=== PATIENT | female | born 1960 | race Caucasian/White ===

== ENCOUNTER 2019-04-09 10:44 | Day surgery (SDC) | payer MEDICARE, SELFPAY ==
[2019-04-09] VITALS (7 sets, daily range): BP systolic 101–128; BP diastolic 60–80; PULSE 57–83; RESP 16; TEMP 36.2–36.5; O2SAT 97–100; BMI 26.4
[2019-04-09] MEDS: Lactated Ringers 1,000 ML 100 ML IV (11:32)
--- NOTE | 2019-04-09 12:39 | PCM.HP.BLA ---
History and Physical Date of Admission: 04/09/19 Kenyatta Carrillo 1960 ? ? REFERRING PHYSICIAN: Gonsalo Shannon MD ? CHIEF COMPLAINT: Consult ? HPI: The patient is a 58 year old female presents with history of colon polyps. Patient began interview by stating that she really doesn't want to undergo colonoscopy but they told her that she should have a colonoscopy, and she was adamant in stating that she didn't want a colonoscopy. I explained that given her history of polyps she should have continued surveillance. She had a previous colonoscopy 07/24/14 with findings of descedning colon tubular adenoma - 1 cm Father had colon cancer in his 60s. Denies blood in stools. Denies abdominal pain. Denies changes in bowel habits. She states that in her last colonoscopy she wasn't clean enough. Then I suggested a two day colon cleansing preparation, she didn't want to do that. She stated that she is not having consstipation problems now as she was before. She states that now has a bowel movement every day. ? ? PAST MEDICAL HISTORY Diagnosis Date ? Bipolar 1 disorder, depressed (HCC) 80s ? Colon polyps 07/31/2001 ? TVA ? Eating disorder ? ? Endometriosis, site unspecified ? ? Endometriosis ? High blood sugar ? ? Knee pain ? ? Moderate dysplasia of cervix 's ? Osteopenia 2011 ? PAST SURGICAL HISTORY Procedure Laterality Date ? CERVIX UTERI CAUTER CRYOCAUTER ? 1979's ? COLONOSCOP W/ OR W/O BRSH SPEC ? 07/22/14 ? Colonoscopy ? COLONOSCOPY ? 08/05/02 ? no polyp ? COLONOSCOPY & POLYPECTOMY ? 07/31/01 ? TVA removed ? EGD W/O OR W/BRUSH/WASH ? 07/22/14 ? EGD ? HYSTERECTOMY HX ? 2001 ? LAVH/BSO ? KNEE LEFT OP SURGERY ? ? ? 3 surgeries ? KNEE RIGHT OP SURGERY ? ? ? 5 knee surgeies - last being TKA ? L'SCOPE DX W/WO BRUSHINGS/WASHINGS ? ? ? Laparoscopy 8-10 of them for endometriosis ? PAST SURGICAL HISTORY OF ? 2005 ? left wrist surgery ? PAST SURGICAL HISTORY OF Right 2016 ? ORIF right hip ? SHOULDER ARTHROSCOPY/SURGERY ? Current Outpatient Medications Medication Sig ? pantoprazole DR (PROTONIX) 40 mg tablet Take 1 tablet by mouth twice daily. ? levothyroxine (SYNTHROID) 50 mcg tablet TAKE 1 TABLET BY MOUTH ONCE DAILY. TAKE ON EMPTY STOMACH. FOR THYROID ? cholecalciferol, Vitamin D3, (VITAMIN D3) 50,000 unit cap capsule Take 1 capsule by mouth once each week. ? busPIRone (BUSPAR) 5 mg tablet Take 1 tablet by mouth twice daily. (Patient taking differently: Take 5 mg by mouth once daily. ) ? divalproex DR (DEPAKOTE) 500 mg EC tablet Take 250 mg by mouth once daily. 250 mg at night and 500 mg 2x daily ? ? topiramate 100 mg tablet Take 1 tablet by mouth twice daily. ? doxycycline monohydrate 100 mg tablet Take 1 tablet by mouth twice daily. (Patient not taking: Reported on 03/31/2019 ) ? benzonatate (TESSALON PERLES) 100 mg capsule Take 1 capsule by mouth three times daily as needed. (Patient not taking: Reported on 03/31/2019 ) ? cholecalciferol (VITAMIN D3) 2,000 unit tablet Take 1 tablet by mouth once daily. (Patient not taking: Reported on 03/31/2019 ) ? polyethylene glycol 3350 (MIRALAX, GLYCOLAX) 17 gram packet Take 1 Packet by mouth once daily. (Patient not taking: Reported on 03/31/2019 ) ? ketoconazole (NIZORAL) 2 % shampoo Apply 1 application to affected area once daily as needed. (Patient not taking: Reported on 03/31/2019 ) ? fluticasone (FLONASE) 50 mcg/actuation nasal spray Use 2 Sprays in each nostril once daily. (Patient not taking: Reported on 03/31/2019 ) ? ? ALLERGIES: Patient has no known allergies. ? PERSONAL HISTORY: Social History ? Tobacco Use ? Smoking status: Former Smoker ? Smokeless tobacco: Never Used ? Tobacco comment: quit in 2018 Substance Use Topics ? Alcohol use: No ? ? Comment: Patient indicated that she is binge drinker Sober since ? Drug use: No ? FAMILY HISTORY Problem Relation Age of Onset ? Diabetes Mother ? ? Emphysema Mother ? ? COPD Mother ? ? Cancer Mother ? ? throat and met to lung and brain ? Alcohol/Drug Mother ? ? Stroke Mother ? ? Heart disease Mother ? ? other (lung cancer) Mother ? ? other (throat cancer) Mother ? ? Cancer Father ? ? lung; colon; spinal cancer ? Colon Cancer Father ? ? Alcohol/Drug Father ? ? other (lung cancer) Father ? ? Heart disease Sister ? ? Allergies Maternal Grandmother ? ? Emphysema Maternal Grandfather ? ? Arthritis Paternal Grandmother ? ? Breast Cancer Paternal Grandmother ? ? None Sister ? ? None Sister ? ? ? REVIEW OF SYSTEMS: General: The patient denies fatigue, denies weight loss, notes weight gain, denies feeling hot, and denies feelings of cold. Eyes: The patient denies glaucoma, denies eye injury/surgery, wears glasses or contacts. Ear/Nose/Throat: The patient notes allergies, denies hayfever, denies ear infections, and denies bloody noses. Cardiovascular: The patient denies chest pain, denies heart disease, denies high blood pressure,denies cardiac stent, denies prior heart attack, denies irregular heart beat, denies high cholesterol, denies poor circulation, denies heart failure, other cardiac issues, denies claudication, denies cold feet, denies peripheral arterial stent. Respiratory: The patient denies tuberculosis, denies pneumonia, denies frequent cough, denies pulmonary embolism, denies shortness of breath, and denies coughing up blood. Gastrointestinal: The patient denies difficulty swallowing, notes acid reflux, denies ulcers, denies vomiting, denies jaundice/hepatitis, denies gallbladder problems, denies black or tarry stools, denies hemorrhoids, denies bleeding from rectum, denies diverticulitis, denies constipation, denies diarrhea, denies loss of stool control, and denies hernias. Kidney/Bladder: The patient denies kidney stones, denies urine infections, and denies bloody urine. Skin: The patient denies a history of skin cancer, denies bleeding/changing moles, and denies a history of skin rash. Neurologic: The patient denies a history of epilepsy/convulsions, denies headaches, denies head/spinal injuries, and denies stroke/TIA. Psychiatric: The patient NOTES psychiatric medications, denies depression, and denies voices, denies substance abuse. Endocrine: The patient notes thyroid disorders, denies diabetes, and denies hormonal problems. Hematologic: The patient denies a history of bruising, denies bleeding, and denies anemia, denies blood clots. Infections: The patient denies a history of measles and mumps, denies rheumatic fever, and denies sexually transmitted diseases. Musculoskeletal: The patient denies back pain/injury, denies back problems, denies sciatica, denies knee/foot trouble, denies arthritis, or denies gout. ? ? PHYSICAL EXAMINATION: General: The patient is 58 year old female, well nourished, well hydrated in no acute distress. The patient is oriented to time, place, and person. VITALS: Blood pressure 98/70, pulse 120, temperature 36.4 ?C (97.5 ?F), temperature source Temporal Artery, height 182.9 cm (6'), weight 86.6 kg (191 lb), SpO2 100 %. Body mass index is 25.9 kg/m?. Head ? Normocephalic. EOM intact with sclera clear and no icterus noted. Wearing glasses. Mouth with mucus membranes moist. Neck - supple with no jugular venous distention noted. Trachea is midline. Lungs ? clear to auscultation.. Normal breath sounds. No rales/rhonchi/wheezing noted. No labored breathing noted, such as retractions. No cough heard. Heart ? normal S1 and S2 auscultated. No rubs/clicks/murmurs noted. Regular rate. Abdomen ? soft and benign. Normal bowel sounds. Extremities ? no pitting edema noted. Skin ? normal skin integrity. Neurological ? non focal Psych ? normal for patient ? ? IMPRESSION: history of colon polyps. ? PLAN: I have discussed the above with the patient. I have explained the procedure to the patient. I have counseled the patient as to the risks of the procedure, including but not limited to: infection, bleeding, perforation of the GI tract, injury to any intraabdominal organs such as the liver/spleen, inability to complete the procedure, complications of anesthesia, etc. ? the patient understands. she agrees to proceed I have answered all questions to the patient?s satisfaction and the patient has no further questions. ? . Diagnoses: (Z86.010) History of colonic polyps (primary encounter diagnosis) Return to Clinic: The patient is instructed to follow-up with me after the procedure as per needed.
--- NOTE | 2019-04-09 13:23 | OP.COLON_ITS ---
Patient Name: Kenyatta Carrillo Procedure Date: 04/09/2019 12:58 PM Date of : 1960 Age: 58 Procedure: Colonoscopy Indications: High risk colon cancer surveillance: Personal history of colonic polyps Providers: Kristina Wang MD Referring MD: Yeison Mclain MD Medicines: See the Anesthesia note for documentation of the administered medications Patient Profile: Refer to note in patient chart for documentation of history and physical. Last Colonoscopy: 5 years ago. Complications: No immediate complications. Procedure: Pre-Anesthesia Assessment: - see anesthesia note After I obtained informed consent, the scope was passed under direct vision. Throughout the procedure, the patient's blood pressure, pulse, and oxygen saturations were monitored continuously. The Duodenoscope was introduced through the anus and advanced to the cecum, identified by the appendiceal orifice, IC valve and transillumination. The colonoscopy was performed without difficulty. The patient tolerated the procedure well. The quality of the bowel preparation was poor, there was still retained fecal material. Therefore lavage and aspiration was done to clear the fecal material. This took some time. The marroquin were cleared adequately. Scope In: 1:06:06 PM Scope Withdrawal Time 0 hours 8 minutes 24 seconds Scope Out: 1:20:19 PM Total Procedure Duration Time 0 hours 14 minutes 13 seconds Findings: The perianal and digital rectal examinations were normal. Pertinent negatives include normal sphincter tone. Non-bleeding internal hemorrhoids were found. Impression: - Non-bleeding internal hemorrhoids. - No specimens collected. Recommendation: - Repeat colonoscopy in 5 years for surveillance. - Return to primary care physician PRN. - Continue present medications. Procedure Code(s): --- Professional --- G0105, Colorectal cancer screening; colonoscopy on individual at high risk Diagnosis Code(s): --- Professional --- K64.8, Other hemorrhoids Z86.010, Personal history of colonic polyps CPT copyright 2017 [employer]. All rights reserved. The codes documented in this report are preliminary and upon professor of physics review may be revised to meet current compliance requirements. MD Kristina Hallman MD 04/09/2019 1:23:29 PM This report has been signed electronically. Number of Addenda: 0 Note Initiated On: 04/09/2019 12:58 PM
== END 2019-04-09 14:17 | disposition home or self-care (01) ==
LOC: EN 10:55 → AC 10:56
PROVIDERS: Family Provider Family Medicine; Referring Provider Family Medicine; Visit Provider Surgery
PROC: 0DJD8ZZ Inspection of Lower Intestinal Tract, Via Natural or Artificial Opening Endoscopic (ICD-10-PCS; CPT 45378; principal; 2019-04-09 11:55)
DX: Z12.11 Encounter for screening for malignant neoplasm of colon (principal); K64.8 Other hemorrhoids; Z86.010 Personal history of colon polyps; Z80.0 Family history of malignant neoplasm of digestive organs; F31.9 Bipolar disorder, unspecified; K21.9 Gastro-esophageal reflux disease without esophagitis; D64.9 Anemia, unspecified; E06.9 Thyroiditis, unspecified; Z79.899 Other long term (current) drug therapy; Z87.891 Personal history of nicotine dependence
CPT/HCPCS: G0121; J7120

== ENCOUNTER 2019-07-03 19:11 | Emergency (ER) | payer MEDICARE, SELFPAY ==
[2019-04-09 11:21] VITALS: BMI 26.4
[2019-07-03 19:12] VITALS: BP 148/90; PULSE 64; RESP 18; TEMP 36.7; O2SAT 100; BMI 26.8
--- NOTE | 2019-07-03 19:19 | RAD_ITS ---
STUDY: X-RAY - PELVIS REASON FOR EXAM: Female, 58 years old. right upper leg pain x 3 days TECHNIQUE: One view of the pelvis was obtained. COMPARISON: None. FINDINGS: There is a non-specific bowel gas pattern. Normal visualized soft tissue structures. Normal bilateral iliac wings, sacroiliac joints and visualized sacrum. Normal visualized bilateral superior and inferior pubic rami. Normal pubic symphysis. Normal ischial tuberosities. Right hip prosthesis is noted in anatomic alignment and position. Acetabula protrusio deformity is noted. Normal visualized left femoral head. Normal left acetabulum. Normal left hip joint. RAD/Pelvis 1 or 2 Views IMPRESSION: Stable appearance to right hip prosthesis. No evidence for acute hip or pelvic fracture Electronically Signed: Bernardo Braun MD at 19:59 EST , Service support ,
--- NOTE | 2019-07-03 19:33 | ED.DCSUM_ITS ---
History of Present Illness Chief Complaint: Lower Extremity Injury Informant: Patient Onset: Days Context: Gradual Onset Timing: Continuous Current Severity: Moderate Maximum Severity: Moderate Narrative: The patient is a 58-year-old female with medical history significant for prior hip fracture who ended up with a periprosthetic fracture and had to have significant revision of her prior surgery that presents to the emergency department for right thigh pain. Patient states that her surgery was last year. She is been back at work. She states over the past 4 days, she is a more pain in her thigh. She denies any specific injury. She does ambulate with a cane. She is not taken anything for her pain. She denies any swelling. She is had no fever or chills. She is otherwise been in her normal state of health. Prior similar symptoms: No Recent Illness/Hospitalization: No Past Medical History - Allergies and Home Meds Allergies/Adverse Reactions: Allergies No Known Allergies Allergy (Verified 07/03/19 19:13) Primary Care Physician: Gonsalo Shannon [Primary Care Provider] - Prior records reviewed: Yes Past Medical History: - Surgical History: - - Reviewed and confirmed Smoking Status: Never smoker Review of Systems General: Denies: Chills, Fever, Sweats Eyes: Denies: Visual changes - bilaterally, Diplopia ENT: Denies: Rhinorrhea, Sore throat Cardiovascular: Denies: Chest pain, Palpitations Respiratory: Denies: Dyspnea, Cough, Dyspnea on exertion Gastrointestinal: Denies: Abdominal pain, Nausea, Vomiting, Diarrhea, Melena, Hematochezia Genitourinary: Denies: Dysuria, Hematuria, Frequency Musculoskeletal: Reports: Arthralgias. Denies: Back pain, Extremity Pain Skin: Denies: Rash, Wounds Neurological: Denies: Headache, Weakness, Numbness Physical Exam Vital Signs/Narrative: Vital Signs Temp Pulse Resp BP Pulse Ox 07/03/19 19:12 98.0 F 64 18 148/90 H 100 Inital Vital Signs reviewed: Yes General: Well nourished, Well developed, No Acute Distress Head: Normocephalic, Atraumatic Eyes: Perrl, EOMI ENT: Moist mucous membranes, No rhinorrhea Neck: Supple, Nontender Cardiovascular: Regular rate, Regular rhythm, No murmurs Respiratory: No distress, CTA bilaterally, Chest nontender Abdomen: Soft, Nontender, Nondistended, Normal bowel sounds Back: Nontender, Normal Inspection Extremities: Nontender, No edema Skin: Normal color, No rash Neurological: Alert, Oriented x3, Cranial nerves II-XII grossly intact, Normal Strength, Normal Sensation Psychological: Normal affect, Normal Mood Diagnostic/Tx/Re-eval Clinical Impression(s) from Imaging Studies Pelvis X-Ray 07/03/19 19:19 IMPRESSION: Stable appearance to right hip prosthesis. No evidence for acute hip or pelvic fracture Electronically Signed: Bernardo Braun MD at 19:59 EST , Service support , Femur X-Ray 07/03/19 19:35 IMPRESSION: Postsurgical changes. No evidence for acute fracture. No definitive evidence for acute osteomyelitis or other focal bony lesion Electronically Signed: Bernardo Braun MD at 19:57 EST , Service support , - Medical Decision Making The patient has no erythema or edema of the leg. She has normal pulses. She has no pain in the calf or asymmetric swelling. She states the pain is only when she bears weight. Given her significant surgical history, plain films were obtained. This does redemonstrate her old injuries, but her plates are all intact. There is no evidence of fracture. There is no bony reaction consistent with osteomyelitis. At this point, I do feel that this is just an exacerbation of her normal pain likely from overuse. Will give a short course of analgesics and will continue her cane. She will follow-up with orthopedic surgeon if not improving within the next 72 hours. Impression 1. Right thigh contusion ED Disposition - Plan for ED Patient: Instructions: Hip Contusion Prescriptions: Hydrocodone Bitart/Apap 5-325 [[place] 5MG-325MG] 1 tab PO Q6H PRN PRN 3 Days #10 tab PRN Reason: Pain Prescription Printed Referrals: Gonsalo Shannon [Primary Care Provider] -
--- NOTE | 2019-07-03 19:35 | RAD_ITS ---
STUDY: X-RAY - RIGHT FEMUR REASON FOR STUDY: Female, 58 years old. right upper leg pain x 3 days TECHNIQUE: 4 view(s) of the femur. COMPARISON: None. FINDINGS: Bony structures are osteopenic. Right hip prosthesis is noted in anatomic alignment and position. There are postsurgical changes status post open reduction internal fixation of distal femoral shaft fracture. Knee prosthesis is noted in anatomic alignment. RAD/Femur Min 2 Views IMPRESSION: Postsurgical changes. No evidence for acute fracture. No definitive evidence for acute osteomyelitis or other focal bony lesion Electronically Signed: Bernardo Braun MD at 19:57 EST , Service support ,
[2019-07-03 20:26] VITALS: RESP 16
== END 2019-07-03 20:26 | disposition home or self-care (01) ==
LOC: ED 19:22
PROVIDERS: Emergency Provider Emergency Medicine
DX: S70.11XA Contusion of right thigh, initial encounter (principal); Z96.641 Presence of right artificial hip joint; X58.XXXA Exposure to other specified factors, initial encounter; Y93.89 Activity, other specified; Y92.89 Other specified places as the place of occurrence of the external cause; Y99.8 Other external cause status
CPT/HCPCS: 72170; 73552; 99282

== ENCOUNTER → 2020-02-24 | Outpatient (CLI) | payer MEDICARE, SELFPAY | END | disposition home or self-care (01) | LOC: MTDU 10:13 | PROVIDERS: Referring Provider Physician Assistant; Visit Provider Physician Assistant | DX: Z20.828 Contact with and (suspected) exposure to other viral communicable diseases (principal) | CPT/HCPCS: 87635; C9803; U0003 ==

== ENCOUNTER 2020-07-27 15:27 | Outpatient (RCR) | payer MEDICARE, SELFPAY ==
[2020-07-27] MEDS: COVID-19 VACC, MRNA(PFIZER)/PF 30 MCG/0.3 ML SYRINGE IM (14:47)
[2020-09-01] MEDS: COVID-19 VACC, MRNA(PFIZER)/PF 30 MCG/0.3 ML SYRINGE IM (16:18)
== END 2020-10-19 23:59 ==
LOC: IMMUN 15:27
PROVIDERS: Referring Provider Family Medicine; Visit Provider Family Medicine
DX: Z23 Encounter for immunization (principal)
CPT/HCPCS: 0001A; 0002A; 91300

== ENCOUNTER 2022-06-10 15:18 | Inpatient (IN) | payer MEDICARE, MEDICAID, SELFPAY ==
[2022-06-10 15:19] VITALS: BP 140/74; PULSE 87; RESP 18; TEMP 36; O2SAT 100; BMI 24.4
[2022-06-10 15:26] VITALS: TEMP 36; O2SAT 100
--- NOTE | 2022-06-10 15:31 | EX.ED.DYSGE1 ---
HPI History of Present Illness Chief Complaint: Fall Narrative Narrative: 61-year-old female here for fall notes left hip pain. Notes mechanical fall from standing earlier today. No head trauma or loss of consciousness no neck pain. No palpitations prior to fall. PFSH PFSH Home Medications buspirone 5 mg tablet 5 mg PO DAILY 04/08/19 [History Last Taken Unknown] divalproex 250 mg tablet,delayed release 500 mg PO DAILY 04/08/19 [History Last Taken Unknown] divalproex 250 mg tablet,delayed release 750 mg PO QHS 04/08/19 [History Last Taken Unknown] levothyroxine 50 mcg tablet 50 mcg PO DAILY 04/08/19 [History Last Taken 04/09/19] pantoprazole 40 mg tablet,delayed release 40 mg PO QHS 04/08/19 [History Last Taken Unknown] topiramate 100 mg tablet 100 mg PO BID 04/08/19 [History Last Taken Unknown] Allergy/AdvReac Type Severity Reaction Status Date / Time No Known Allergies Allergy Verified 06/10/22 15:24 Surgical History (Updated 06/10/22 @ 15:25 by Guerline Hernandez) H/O total hysterectomy History of right hip replacement Social History Smoking Status: Former smoker ROS ROS ED ROS Narrative Constitutional: Denies fever HEENT: Denies sore throat Neck: Denies neck pain Cardiovascular: Denies chest pain, syncope Respiratory: Denies shortness of breath GI: Denies nausea vomiting or abdominal pain : Denies changes in urinary habits Musculoskeletal: Endorses hip pain Neurologic: Denies numbness weakness or loss of sensation Skin denies rash EXAM Physical Exam Narrative Exam Narrative: Primary Survey Airway: Intact Breathing: Bilateral breath sounds Circulation: Palpable bilateral femorals, Palpable bilateral radial, Palpable bilateral DP and Palpable bilateral PT Disability / Spine precautions GCS Score: Eye Openin Verbal Response: 5 Motor Response: 6 Secondary Survey Constitutional: Please see MDM Head: Atraumatic, Midface stable, NO jaw malocclusion, No Cephalohematoma, and No Lacerations noted Eye: Pupils equal round and reactive to light, Extraocular muscles intact and No periorbital ecchymosis or stepoff, no evidence of entrapment ENT: Oropharynx clear, no lacerations, no hemotympanum, no raccoon eyes or nathan sign Cervical spine / Neck: No cervical spine bony tenderness, crepitance, or stepoff deformity Trachea midline Lungs: Clear to auscultation, No asymmetric rise and No crepitus, no flail chest Cardiac: Regular rate and rhythm and No murmurs Abdomen: Soft, Nontender and No rebound Pelvis: Pelvis stable to compression : No evidence of genital injury Back: No midline bony tenderness to thoracic/lumbar/sacral spines Neuro: Intact sensation L1-S1 dermatomal distributions. Intact 5/5 strength in hip flexion (T12-L3) on right, cannot perform strength testing on the left 2/2 to acuity of condition. Knee extension (L2-L4), cannot perform on left secondary to acuity of condition intact on the right. Ankle dorsiflexion (L4-L5). Ankle plantar flexion (S1). Great toe extension (L5). 2+ patellar and Achilles DTRs.. Extremities: Obvious left hip deformity, left leg shortened and externally rotated Psych: Normal affect Nursing triage notes reviewed, Vital signs reviewed Const Vital Signs: 06/10/22 15:19 06/10/22 15:26 06/10/22 18:15 Temperature 96.8 F L 96.8 F L Temperature Source Temporal Pulse Rate 87 85 Respiratory Rate 18 18 Respiratory Effort Normal Non-Labored Respiratory Depth Normal Respiratory Pattern Normal Blood Pressure 140/74 H 174/79 H Blood Pressure Mean 96 110 Pulse Ox 100 100 100 Oxygen Delivery Method Room Air Room Air Room Air MDM MDM MDM Narrative Medical decision making narrative: Chief Complaint: Left hip pain External records reviewed: X-ray of the pelvis from 2019 shows right hip prosthesis no acute fracture dislocation I considered: Hip fracture dislocation I obtained an x-ray which showed evidence of an intertrochanteric fracture. Gave pain medicine. Obtained preop EKG basic labs admitted to medicine service for ongoing evaluation, pain management orthopedic consultation and likely surgical intervention Factors affecting care: History of bipolar disorder, alcohol abuse Social determinants of health: Alcohol abuse Shared decision making: I will have a discussion with the patient and or visitors regarding risk/benefits of further testing or admission. They will be made aware of of the risk/benefits inherent in this decision they will be given the opportunity to voice understanding. Consults: Internal medicine (Dr. Recinos, except the patient's case), orthopedic surgery (, is aware recommended no acute surgery but recommended admit to medicine for surgical clearance and possible surgery) Lab Data Attestation: I reviewed the patient's lab results. Lab results narrative: CBC with leukocytosis suggestive of systemic inflammation, severe anemia, no obvious thrombocytopenia BMP with hyponatremia, hypokalemia, no obvious elevated anion gap mildly elevated creatinine Labs: Laboratory Results - last 24 hr 06/10/22 06/10/22 16:05 16:05 WBC 13.6 H RBC 2.87 L Hgb 7.8 L Hct 25.3 L MCV 88.2 MCH 27.2 MCHC 30.8 L RDW Std Deviation 66.9 H RDW Coeff of Angelo 22.1 H Plt Count 270 MPV 9.7 Differential Comment SCANNED Sodium 132 L Potassium 2.3 L* Chloride 87 L Carbon Dioxide 31.0 Anion Gap 14 BUN 26 H Creatinine 1.34 H Estim Creat Clear Calc 49.59 Est GFR (MDRD) Af Amer 51 L Est GFR (MDRD) Non-Af 42 L BUN/Creatinine Ratio 19.4 Glucose 146 H Calcium 8.6 Radiography Diagnostic Testing: Clinical Impression(s) from Imaging Studies Pelvis X-Ray 06/10/22 15:50 IMPRESSION: Acute intertrochanteric fracture of the proximal left femur. Slight increase in size and density of a 13 mm sclerotic focus in the left iliac wing as compared to prior pelvic radiograph of 3 years ago; this most likely represents a bone island but follow-up may be of benefit, possibly due to include a bone scan. Electronically Signed: Sourav Iraheta MD at 17:35 EST , Femur X-Ray 06/10/22 17:00 IMPRESSION: Acute intertrochanteric fracture of the proximal left femur. Nonstandard communication protocol initiated. Electronically Signed: Sourav Iraheta MD at 17:38 EST , ADDENDUM: 06/10/22 1755 IMPRESSION: Acute intertrochanteric fracture of the proximal left femur. Nonstandard communication protocol initiated. N.B. : The above Results were Read Back by Sourav Iraheta MD to Manedep Allison DO, and understanding confirmed on 06/10/2022 17:48:50 (ET). Electronically Signed: Sourav Iraheta MD at 17:38 EST , Left hip x-ray personally reviewed by myself shows left intertrochanteric fracture we will consult orthopedic EKG Initial EKG: Comments: EKG with normal sinus rhythm, normal axis, normal intervals, no obvious STEMI. Treatment and Re-Evaluation Narrative: The patient remains neurovascular intact left lower extremity is appropriate for admission to medicine Discharge Plan Triage Chief Complaint: Fall ED Provider: Mandeep Allison Dx/Rx/DC Orders Clinical Impression: Closed fracture of left hip, History of acute alcohol intoxication Prescriptions: No Action buspirone 5 MG tablet 5 mg PO DAILY divalproex 250 MG tablet 500 mg PO DAILY divalproex 250 MG tablet 750 mg PO QHS levothyroxine 50 MCG tablet 50 mcg PO DAILY pantoprazole 40 MG tablet 40 mg PO QHS topiramate 100 MG tablet 100 mg PO BID Primary Care Provider: Gonsalo Shannon Referrals: Gonsalo Shannon [Primary Care Provider] - Disposition Disposition: Acute Care Hospital [facility]
--- NOTE | 2022-06-10 15:50 | RAD_ITS ---
EXAM: XR PELVIS, 1 OR 2 VIEWS CLINICAL INDICATION: fall, left hip deformity, r/o fx or dislocation TECHNIQUE: Frontal view of the pelvis. This report was created using [employer] report generation technology. COMPARISON: Pelvic radiograph of 07/03/2019. Left femur radiographs of this date. FINDINGS: BONES/JOINTS: There is an acute intertrochanteric fracture of the proximal left femur with minimal cephalad migration of the femoral shaft in relation to the femoral neck. The left femoral head remains aligned within the left acetabulum. 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 Total right hip arthroplasty remains in place, without dislocation. No acute pubic ramus fracture is identified. The SI joints are not abnormally widened. Lower lumbar facet arthritis is present. A 13 mm rounded sclerotic focus is noted within the left iliac wing laterally; this sclerotic focus is more dense than on the prior study, and measured 9 mm in maximal diameter on the prior exam. No widening of the pubic symphysis. SOFT TISSUES: Unremarkable. No soft tissue swelling or gas. RAD/Pelvis 1 or 2 Views IMPRESSION: Acute intertrochanteric fracture of the proximal left femur. Slight increase in size and density of a 13 mm sclerotic focus in the left iliac wing as compared to prior pelvic radiograph of 3 years ago; this most likely represents a bone island but follow-up may be of benefit, possibly due to include a bone scan. Electronically Signed: Sourav Iraheta MD at 17:35 EST ,
--- NOTE | 2022-06-10 15:50 | EKG12_ITS ---
Test Reason : Blood Pressure : / mmHG Vent. Rate : 082 BPM Atrial Rate : 082 BPM P-R Int : 142 ms QRS Dur : 080 ms QT Int : 404 ms P-R-T Axes : 051 025 112 degrees QTc Int : 472 ms Normal sinus rhythm ST & T wave abnormality, consider inferior ischemia Abnormal ECG Confirmed by ARIA GASTON, ALPHONSE ([id number]), newspaper editor QUE POLANCO ([id number]) on 06/12/2022 9:42:37 AM Referred By: DARLENE Confirmed By:ALPHONSE KNAPP MD
[2022-06-10] MEDS: Ondansetron 4 MG/2 ML Vial IV (16:08)
[2022-06-10] MEDS: 0.9% Normal Saline 1,000 ML 999 ML IV (16:08)
[2022-06-10] MEDS: Morphine 4 MG/ML Syringe IV (16:10)
[2022-06-10 16:17] LABS: Hematocrit 25.3 % (37-47); Hemoglobin 7.8 g/dL (12.0-15.0); Mean Corp Hgb Conc 30.8 g/dL (32-36); Mean Corpuscular Hgb 27.2 pg (27.0-32.0); Mean Corpuscular Volume 88.2 fL (81-99); Mean Platelet Vol. 9.7 fl (6.2-12.0); POSITIVE MORPHOLOGY YES; Platelet Count 270 K/mm3 (150-450); RBC Distribution Width CV 22.1 % (11.6-14.6); RBC Distribution Width SD 66.9 fl (35.1-43.9); Red Blood Count 2.87 M/mm3 (4.2-5.4); White Blood Count 13.6 K/mm3 (4.4-11.0)
[2022-06-10 16:18] LABS: Scan Indicated on CBC? Y/N YES- FLAGS NOTED
[2022-06-10 16:40] LABS: Anion Gap 14 (5-15); BUN 26 mg/dL (7-18); BUN/Creat Ratio 19.4 RATIO (10-20); Calcium,Total 8.6 mg/dL (8.5-10.1); Chloride 87 mmol/L (98-107); Creatinine, Serum 1.34 mg/dL (0.55-1.02); Differential Comment SCANNED; EST Glomerular Filtration Rate 42 mL/min (>60); Est Glom Filt Rate - Afr Amer 51 mL/min (>60); Estimated Creatinine Clearance 49.59 ml/min; Glucose 146 mg/dL (74-106); Potassium 2.3 mmol/L (3.5-5.1); Sodium Level 132 mmol/L (136-145)
--- NOTE | 2022-06-10 17:00 | RAD_ITS ---
We are attempting to reach an attending provider to discuss findings. An addendum with communication details will be sent when the communication is complete. EXAM: XR LEFT FEMUR, 2 VIEWS CLINICAL INDICATION: fall, left hip pain TECHNIQUE: Frontal and lateral views of the left femur. This report was created using [employer] report generation technology. COMPARISON: Pelvic radiograph of this date and from 07/03/2019 FINDINGS: BONES/JOINTS: As noted on today''s pelvic radiograph, there is an acute intertrochanteric fracture of the proximal left femur, with mild cephalad migration of the femoral shaft in relation to the femoral neck. Left femoral head remains aligned within the left acetabulum. Mild left hip degenerative joint space narrowing and marginal osteophytes again noted. The mid to distal left femur is intact. The left knee joint spaces are preserved. There is a well-healed fracture of the proximal left fibular shaft. SOFT TISSUES: No knee effusion. No radiopaque foreign body. RAD/Femur Min 2 Views IMPRESSION: Acute intertrochanteric fracture of the proximal left femur. Nonstandard communication protocol initiated. Electronically Signed: Sourav Iraheta MD at 17:38 EST ,
[2022-06-10] MEDS: Potassium Chloride Oral Tablet 20 MEQ 60 MEQ PO (17:13)
[2022-06-10 18:15] VITALS: BP 174/79; PULSE 85; RESP 18; O2SAT 100
--- NOTE | 2022-06-10 18:38 | HP.PCM.HOS_ITS ---
[facility] - General General Date of Service: 06/10/22 Chief Complaint: left hip pain, mechanical fall HPI Narrative ROZINA HUERTAS, is a 61 F with a PMH as outlined who presents via the ED on 06/10/2021 with a complaint of mechanical fall and left hip pain. SHe denied any dizziness, lightheadedness, palpitations, cough, chest pain, nausea, vomiting or diarrhea. Review of systems is otherwise negative. Vitals were BP of 174/79, NC of 85, RR of 18 and temp of 100% on room air. CBC showedHb of 7.8, wbc of 13.6 and platelets of 270. Chemistry showed sodium of 132, potassium of 2.3 and Cr of 1.34. Glucose was 146. Imaging showed acute intertrochanteric fracutre of the proximal left femur. She is being admitted to be managed for hypokalemia and acute left intertrochanteric hip fracture due to mechanical fall. [facility] Home Medications pantoprazole 40 mg tablet,delayed release 40 mg PO QHS 04/08/19 [History Last Taken Unknown] Allergy/AdvReac Type Severity Reaction Status Date / Time No Known Allergies Allergy Verified 06/10/22 15:24 Surgical History (Updated 06/10/22 @ 15:25 by Guerline Hernandez) H/O total hysterectomy History of right hip replacement Social History Smoking Status: Former smoker ROS Constitutional Constitutional: Denies anorexia, chills, fatigue, fever(s), malaise or weakness Eyes Eyes: Denies change in vision ENT HEENT: Denies dysphagia, headache(s) or sore throat Cardiovascular Cardiovascular: Denies chest pain, dyspnea on exertion, edema, lightheadedness, orthopnea, palpitations, paroxysmal nocturnal dyspnea, rapid heart rate or syncope Respiratory/Chest Respiratory/Chest: Denies cough, dyspnea, shortness of breath at rest or shortness of breath with exertion Gastrointestinal Gastrointestinal: Denies abdominal pain, constipation, diarrhea, nausea or vomiting Genitourinary Genitourinary: Denies burning urination or dysuria Musculoskeletal Musculoskeletal: Denies arthralgias or joint pain Neurologic Neurologic: Denies confusion, dizziness, focal weakness, headache(s), numbness, seizure-like activity, seizures, syncope or tingling Psychiatric Psychiatric: Denies anxiety Vital Signs Vital Signs Vital Signs: 06/10/22 15:19 06/10/22 15:26 06/10/22 18:15 Temperature 96.8 F L 96.8 F L Temperature Source Temporal Pulse Rate 87 85 Respiratory Rate 18 18 Respiratory Effort Normal Non-Labored Respiratory Depth Normal Respiratory Pattern Normal Blood Pressure 140/74 H 174/79 H Blood Pressure Mean 96 110 Pulse Ox 100 100 100 Oxygen Delivery Method Room Air Room Air Room Air Weight Weight: 180 lb Body Mass Index (BMI) 24.4 Physical Exam Const alert, oriented x3, no apparent distress and average body habitus General Appearance: cooperative HEENT normocephalic, head/scalp atraumatic, hearing grossly normal bilaterally and moist oral mucous membranes Mouth: oral and palatal mucosa normal Eyes PERRL, EOMs intact bilaterally and conjunctivae normal Neck no lymphadenopathy, supple and no JVD Resp normal respiratory effort, no retractions, no use of accessory muscles and clear to auscultation bilaterally Cardio regular rate, regular rhythm, S1 normal heart sound, S2 normal heart sound and no murmurs GI normal to inspection, nondistended, normoactive bowel sounds, soft to palpation, non-tender and non-distended Skin Skin Narrative: LLE shortened, externally rotated Neuro oriented x3 and CN's II-XII intact bilaterally Sensorium / Orientation: awake and alert Psych affect normal Results Lab / Micro Data Result Diagrams: 06/10/22 16:05 06/10/22 16:05 Labs: Laboratory Results - last 24 hr 06/10/22 16:05: WBC 13.6 H, RBC 2.87 L, Hgb 7.8 L, Hct 25.3 L, MCV 88.2, MCH 27.2, MCHC 30.8 L, RDW Std Deviation 66.9 H, RDW Coeff of Angelo 22.1 H, Plt Count 270, MPV 9.7, Differential Comment SCANNED 06/10/22 16:05: Sodium 132 L, Potassium 2.3 L*, Chloride 87 L, Carbon Dioxide 31.0, Anion Gap 14, BUN 26 H, Creatinine 1.34 H, Estim Creat Clear Calc 49.59, Est GFR (MDRD) Af Amer 51 L, Est GFR (MDRD) Non-Af 42 L, BUN/Creatinine Ratio 19.4, Glucose 146 H, Calcium 8.6 Radiology Impression Pelvis X-Ray 06/10/22 15:50 IMPRESSION: Acute intertrochanteric fracture of the proximal left femur. Slight increase in size and density of a 13 mm sclerotic focus in the left iliac wing as compared to prior pelvic radiograph of 3 years ago; this most likely represents a bone island but follow-up may be of benefit, possibly due to include a bone scan. Electronically Signed: Sourav Iraheta MD at 17:35 EST , Femur X-Ray 06/10/22 17:00 IMPRESSION: Acute intertrochanteric fracture of the proximal left femur. Nonstandard communication protocol initiated. Electronically Signed: Sourav Iraheta MD at 17:38 EST , ADDENDUM: 06/10/22 1755 IMPRESSION: Acute intertrochanteric fracture of the proximal left femur. Nonstandard communication protocol initiated. N.B. : The above Results were Read Back by Sourav Iraheta MD to Mandeep Allison DO, and understanding confirmed on 06/10/2022 17:48:50 (ET). Electronically Signed: Sourav Iraheta MD at 17:38 EST , Assessment & Plan Assessment/Plan (1) Fall: (2) Left displaced femoral neck fracture: (3) Hypokalemia: PLAN: Plan #Acute left intertrochanteric femoral fracture due to mechanical fall * fell whilst she was out checking her mail * admit to med surg * consult orthopedic surgery * PO tylenol, PO oxycodone and IV morphine prn for pain * PT/OT consult fall precautions * NSQIP risk assessment showed below average risk of serious complication (4.9%) and below average risk of any complication (6.7% * however, in light of patient's anemia and history of binge drinking of alcohol, patient is risk stratified for surgery with moderate risk. * #Hypokalemia: potassium of 2.3. Will check magnesium. Replace aggressively and trend potassium #Anemia * hb is 7.8. record in EMR is from 2011 when hb was @ 8.9 at its terence. * says she has been struggling with anemia, and is on pantoprazole; she has been told she is bleeding in her gut, and will need a colonoscopy in June. She usually goes to [facility]. She says she has been told she has some polyps * will request records from [facility]. * She may need some blood to shore her up before surgery; * will type and screen and if her Hb falls some more tomorrow, will likely benefit from transfusion before surgery. * check iron panel and ferritin * #Alcohol use disorder * Patient states she usually binge drinks. The last time she binge drank was about a week ago and says she drank about half a gallon of alcohol. * She says she has never gone into withdrawal before. * will check serum alcohol level. * will need close monitoring for withdrawal post surgery. * #Abnormal EKG * EKG read as evidence of inferior ischemia, with St depression in lower leads. I am not convinced per my review, and didnt see any clear evidence of st d epression in inferior leads * patient denies any chest pain or history of heart disease. * will check troponins and repeat EKG * request any cardiac records from [facility] * #Elevated Cr * Cr is 1.34; baseline in EMR is from 2011 when Cr was 0.7 * Is unclear if this is JESSICA or her baseline creatinine is increased. * Hydrate gently with IV fluids and trend creatinine. * #Mild hyponatremia * sodium is 132. Likely due to dehydration and decreased intake. * should improve with hydration. * #Hyperglycemia: glucose is 146. Not a known diabetic. Will check A1C #Hypothyroidism: says she has been taken off synthroid by her PCP because her numbers are now normal WIll check TSH #History of bipolar disorder: says she is now off meds for her bipolar disorder. Will monitor. #Elevated blood pressure * BP about 174/79. Not a known hypertensive so this might be due to pain. IV hydralazine as needed. * Will monitor and start oral BP meds if BP remains elevated. * DVT prophylaxis: lovenox Code status: full code * Patient counseled extensively about different types of CODE STATUS including full code, DNR CCA and DNR CCA. Patient elects to be full code. * Total hvfh-[id number] time 17 minutes. Charges/Coding Visit Charges Inpatient E&M: 50873 Init Hosp L3 Procedures Hospitalists Procedures: 96418 Advncd Care Plan 30 Min
--- NOTE | 2022-06-10 19:13 | EKG12_ITS ---
Test Reason : ABN RHYTHM Blood Pressure : / mmHG Vent. Rate : 086 BPM Atrial Rate : 086 BPM P-R Int : 166 ms QRS Dur : 086 ms QT Int : 410 ms P-R-T Axes : 034 017 036 degrees QTc Int : 490 ms Normal sinus rhythm Prolonged QT Abnormal ECG When compared with ECG of 10-JUN-2022 16:00, MANUAL COMPARISON REQUIRED, DATA IS UNCONFIRMED Confirmed by ARIA GASTON, ALPHONSE ([id number]), acquisition editor QUE POLANCO ([id number]) on 06/15/2022 10:51:28 AM Referred By: PATTI Confirmed By:ALPHONSE KNAPP MD
[2022-06-10 19:29] VITALS: BP 178/76; PULSE 79; RESP 18; TEMP 36.8; O2SAT 100
[2022-06-10 19:40] LABS: Ferritin 16 ng/mL (8-252); Iron 26 ug/dL (50-170); Iron Binding Capacity,Total 388 ug/dL (250-450); PERCENT IRON SATURATION 6.7 % (15.0-55.0); Thyroid Stim Hormone (TSH) 4.12 uIU/mL (0.358-3.74); Troponin-I HS 15 pg/mL (3.0-54.0)
[2022-06-10 20:21] VITALS: BMI 24.1
[2022-06-10 20:26] LABS: Hemoglobin A1c < 3.8 % (3.8-5.6)
[2022-06-10] MEDS: 0.9% Saline Lock 10 ML Syringe IV (20:39)
[2022-06-10] MEDS: Morphine 2 MG/ML Syringe IV (20:41)
[2022-06-10] MEDS: 0.9% Normal Saline 1,000 ML 125 ML IV (20:42)
[2022-06-10 20:45] VITALS: BMI 24.1
[2022-06-10 20:49] VITALS: BP 155/87; PULSE 88; RESP 16; TEMP 36.9; O2SAT 100
[2022-06-10] MEDS: Ketorolac 15 MG/ML Vial IV (21:00)
[2022-06-10] MEDS: Potassium Chloride 10mEq/100mL 10 MEQ/100 ML IV.SOLN. 100 MEQ IV BOLUS ×3 (21:00→23:33)
[2022-06-10 21:27] LABS: Alcohol, Blood (Medical)-Serum < 3.0 mg/dL
[2022-06-10 21:34] LABS: Magnesium 1.9 mg/dL (1.6-2.6); Troponin-I HS 14 pg/mL (3.0-54.0)
[2022-06-10] MEDS: Menthol/Lanolin/Calamine/Znox 113 GM Tube 1 APPLIC TOPICAL (22:34)
[2022-06-10] MEDS: oxyCODONE 5 MG Tablet PO (23:37)
[2022-06-10] MEDS: Acetaminophen 325 MG Tablet 650 MG PO (23:37)
[2022-06-11] VITALS (20 sets, daily range): BP systolic 110–158; BP diastolic 68–87; PULSE 67–103; RESP 14–18; TEMP 36.4–37.2; O2SAT 95–100
[2022-06-11] MEDS: Potassium Chloride 10mEq/100mL 10 MEQ/100 ML IV.SOLN. 100 MEQ IV BOLUS (00:44)
[2022-06-11 02:13] LABS: Absolute Lymphocyte Count 2.07 X10^3/uL (0.83-4.51); Absolute Neutrophil Count 6.9 X10^3/uL (2.0-7.7); Basophil# 0.01 X10^3/uL; Basophil% 0.1 % (0-1); Eosinophil# 0.06 X10^3/uL; Eosinophils% 0.6 % (0-5); Hematocrit 19.6 % (37-47); Hemoglobin 6.1 g/dL (12.0-15.0); Lymphocyte # 2.07 X10^3/ul (0.83-4.51); Mean Corp Hgb Conc 31.1 g/dL (32-36); Mean Corpuscular Volume 86.7 fL (81-99); Mean Platelet Vol. 9.1 fl (6.2-12.0); Monocyte# 0.72 X10^3/uL; Monocyte% 7.3 % (0-10); NRBC Flagged by Analyzer 0 % (0-5); Neutrophil # 6.94 X10^3/uL (2.7-7.7); Neutrophil % 70.6 % (47-70); POSITIVE MORPHOLOGY YES; Platelet Count 189 K/mm3 (150-450); RBC Distribution Width CV 22.2 % (11.6-14.6); RBC Distribution Width SD 66.8 fl (35.1-43.9); Red Blood Count 2.26 M/mm3 (4.2-5.4); White Blood Count 9.8 K/mm3 (4.4-11.0)
[2022-06-11 02:18] LABS: Differential Indicated SCAN CRITERIA MET
[2022-06-11 02:24] LABS: International Normalized Ratio 1.2; Prothrombin Time (Protime)PT. 15.1 SECONDS (11.7-14.9)
[2022-06-11 02:25] LABS: Partial Thromboplast Time 27.2 Seconds (24.1-36.2)
[2022-06-11 02:32] LABS: Troponin-I HS 17 pg/mL (3.0-54.0)
[2022-06-11 02:35] LABS: Anion Gap 8 (5-15); BUN 23 mg/dL (7-18); BUN/Creat Ratio 17.6 RATIO (10-20); Calcium,Total 7.9 mg/dL (8.5-10.1); Chloride 95 mmol/L (98-107); Creatinine, Serum 1.31 mg/dL (0.55-1.02); EST Glomerular Filtration Rate 44 mL/min (>60); Est Glom Filt Rate - Afr Amer 53 mL/min (>60); Estimated Creatinine Clearance 50.73 ml/min; Glucose 112 mg/dL (74-106); Potassium 3.6 mmol/L (3.5-5.1); Sodium Level 133 mmol/L (136-145)
--- NOTE | 2022-06-11 02:48 | PCM.HOSP.N ---
Hospitalist Note Repeat Hgb 6.1, will order 2 u PRBC and repeat HH ~ 1 hour following completion.
[2022-06-11 03:12] LABS: Anisocytosis 2+; Differential Comment SCANNED; Hypochromasia 2+; Microcytosis 2+
[2022-06-11] MEDS: 0.9% Saline Lock 10 ML Syringe IV (05:43)
[2022-06-11] MEDS: Ketorolac 15 MG/ML Vial IV ×4 (05:44→23:36)
--- NOTE | 2022-06-11 07:44 | PN.HOSP_ITS ---
Objective Data Objective Data Vital Signs: Vital Signs Temp Pulse Resp BP Pulse Ox O2 Del Method 98.3 F 83 16 127/75 H 100 Room Air 06/11/22 06:41 06/11/22 06:41 06/11/22 06:41 06/11/22 06:41 06/11/22 06:41 06/11/22 06:41 Oxygen Delivery Method Room Air Weight: 178 lb Body Mass Index (BMI) 24.1 Intake & Output: Intake and Output for Last 24 Hours 06/09/22 06/10/22 06/11/22 23:59 23:59 23:59 Intake Total 1198.33 / 1198.33 1429.17 / 1429.17 Output Total 200 / 200 125 / 125 Balance 998.33 / 998.33 1304.17 / 1304.17 Lab / Micro Data Result Diagrams: 06/11/22 01:55 06/11/22 01:55 Labs: Laboratory Results - last 24 hr 06/10/22 16:05: WBC 13.6 H, RBC 2.87 L, Hgb 7.8 L, Hct 25.3 L, MCV 88.2, MCH 27.2, MCHC 30.8 L, RDW Std Deviation 66.9 H, RDW Coeff of Angelo 22.1 H, Plt Count 270, MPV 9.7, Differential Comment SCANNED 06/10/22 16:05: Sodium 132 L, Potassium 2.3 L*, Chloride 87 L, Carbon Dioxide 31.0, Anion Gap 14, BUN 26 H, Creatinine 1.34 H, Estim Creat Clear Calc 49.59, Est GFR (MDRD) Af Amer 51 L, Est GFR (MDRD) Non-Af 42 L, BUN/Creatinine Ratio 19.4, Glucose 146 H, Calcium 8.6 06/10/22 16:05: Iron 26 L, TIBC 388, Iron Saturation 6.7 L, Ferritin 16, Tropon in I High Sens 15, TSH 4.12 H 06/10/22 16:05: Hemoglobin A1c < 3.8 L 06/10/22 20:30: Blood Type O POSITIVE, Antibody Screen NEGATIVE 06/10/22 20:30: Ethyl Alcohol < 3.0 06/10/22 20:30: Magnesium 1.9, Troponin I High Sens 14 06/10/22 20:30: Crossmatch See Detail 06/11/22 01:55: Troponin I High Sens 17 06/11/22 01:55: WBC 9.8, RBC 2.26 L, Hgb 6.1 L, Hct 19.6 L, MCV 86.7, MCH 27.0, MCHC 31.1 L, RDW Std Deviation 66.8 H, RDW Coeff of Angelo 22.2 H, Plt Count 189, MPV 9.1, Immature Gran % (Auto) 0.400, Neut % (Auto) 70.6 H, Lymph % (Auto) 21.0, [place] % (Auto) 7.3, Eos % (Auto) 0.6, Baso % (Auto) 0.1, Absolute Neuts (auto) 6.9, Absolute Lymphs (auto) 2.07, Nucleated RBC % 0, Differential Comment SCANNED, Hypochromasia 2+, Anisocytosis 2+, Microcytosis 2+ 06/11/22 01:55: Sodium 133 L, Potassium 3.6, Chloride 95 L, Carbon Dioxide 30.0, Anion Gap 8, BUN 23 H, Creatinine 1.31 H, Estim Creat Clear Calc 50.73, Est GFR (MDRD) Af Amer 53 L, Est GFR (MDRD) Non-Af 44 L, BUN/Creatinine Ratio 17.6, Glucose 112 H, Calcium 7.9 L 06/11/22 01:55: PT 15.1 H, INR 1.2, APTT 27.2 Radiography Diagnostic Testing: Radiology Impression Pelvis X-Ray 06/10/22 15:50 IMPRESSION: Acute intertrochanteric fracture of the proximal left femur. Slight increase in size and density of a 13 mm sclerotic focus in the left iliac wing as compared to prior pelvic radiograph of 3 years ago; this most likely represents a bone island but follow-up may be of benefit, possibly due to include a bone scan. Electronically Signed: Sourav Iraheta MD at 17:35 EST , Femur X-Ray 06/10/22 17:00 IMPRESSION: Acute intertrochanteric fracture of the proximal left femur. Nonstandard communication protocol initiated. Electronically Signed: Sourav Iraheta MD at 17:38 EST , ADDENDUM: 06/10/22 1755 IMPRESSION: Acute intertrochanteric fracture of the proximal left femur. Nonstandard communication protocol initiated. N.B. : The above Results were Read Back by oSurav Iraheta MD to Mandeep Allison DO, and understanding confirmed on 06/10/2022 17:48:50 (ET). Electronically Signed: Sourav Iraheta MD at 17:38 EST , Physical Exam Narrative Seen and examined. Patient has history of multiple surgeries on right femur and knee she states 5 surgeries on femur and similar knee. She had right hip labs with subsequent revision to total hip replacement with periprosthetic distal femur fracture. Has regarding right femur and prosthetic knee joint. Right lower extremity is short about 2 to 3 inches and she normally hops and walks on Rollator. This time she fell down with no dizziness or lightheadedness Or syncope. No chest pain nausea or vomiting. Right hip is swollen as compared to left hip Her hemoglobin dropped and she has history of chronic iron deficiency and anemia of chronic disease with history of colonic polyps for last 20-25 years. She said at time she had 15 polyps removed and was told if it was not removed it might turn into malignant polyp. She does not see visual red or black stool. Due for colonoscopy in 4 years. She gets all her treatment from [facility]. Denies burning micturition. She also has habit of binge drinking drinks constantly for 1 week and then off for 1 and half weeks. Denies stigmata of of chronic liver disease. Physical exam General: Alert, Oriented x3, Cooperative, pale looking, thin build. BMI 24.1 kg/m? HEENT: atraumatic, PERRLA, EOMI, Normocephalic Oral: Edentulous. No Gingival or Mucosal Lesions/ Ulcerations Neck: Supple, No JVD, Negative Carotid Bruits Lungs: Air entry diminished in bilateral lung bases. No crepitation/rhonchi Cardiovascular: Regular sinus rhythm, Normal S1, Normal S2, No murmurs Abdomen: Bowel Sounds Present, Soft, Non Tender, Non-Distended : Lin catheter present, dark-colored urine. No renal angle tenderness. No suprapubic tenderness. Extremities: No edema, Capillary Refill Less than 3 Seconds Skin: No rashes, No breakdown Musculoskeletal: Left hip region is swollen and tender possible hematoma. ROM was not checked because of fracture. RLE shot with surgical scar on right hip and knee. Left TKR. Limited mobility on Rollator. Neurological: Cranial nerves II-XII grossly intact, DTR 2+/4 and Neuro grossly intact Psych/Mental Status: Flat affect Assessment & Plan Assessment/Plan (1) Fall: (2) Left displaced femoral neck fracture: (3) Hypokalemia: PLAN: Plan 61-year-old female was admitted after mechanical fall with left hip pain. Imaging shows acute intertrochanteric fracture of proximal left femur. #Acute left intertrochanteric femoral fracture due to mechanical fall: Patient is being admitted on [facility] floor. Orthopedic surgeon Dr. Weiner consulted and discussed with him. Patient is being taken for surgery after 2 units of PRBC transfusion. * PO tylenol, PO oxycodone and IV morphine prn for pain * PT/OT consult fall precautions * NSQIP risk assessment showed below average risk of serious complication (4.9%) and below average risk of any complication (6.7%z), however, in light of patient's anemia and history of binge drinking of alcohol, patient is risk stratified for surgery with moderate risk. #Hypokalemia: potassium of 2.3. Potassium replaced, repeat potassium 3.6, magnesium 1.9. Serum phosphorus ordered #Acute anemia on mixed chronic iron deficiency and anemia of chronic disease: Her baseline hemoglobin is about 9.4 g on 05/02/2022. Admitted with hemoglobin 7.8 dropped to 6.1/19%. She is getting the second unit. Plan for surgery today. MCV normal. RDW high at 22.2%. Platelet count normal. She has history of possible GI bleed from polyps, on PPI. She has colonoscopy scheduled in June with [facility]. * Records from [facility] requested. * Serum iron low, TIBC normal with iron saturation 6.7%. Ferritin 16. #Chronic alcohol use disorder * Patient states she usually binge drinks. The last time she binge drank was about a week ago and says she drank about half a gallon of alcohol. * She says she has never gone into withdrawal before. * serum alcohol level normal less than 3.0. GGT ordered * close monitoring for alcohol withdrawal post surgery. #Abnormal EKG * Twelve-lead EKG individually reviewed. First EKG shows nonspecific ST-T changes but not clear evidence of ST depression in inferior leads. Repeat EKG normal sinus rhythm QTC [address]-T changes suggestive of ischemia. 3 serial troponins are normal. * request any cardiac records from [facility] #Elevated Cr * Cr is 1.34; baseline in EMR is from 2011 when Cr was 0.7 * Is unclear if this is JESSICA or her baseline creatinine is increased. * Hydrate gently with IV fluids and trend creatinine. * Monitor kidney function and electrolytes. #Mild hyponatremia * sodium is 132. Likely due to dehydration and decreased solute intake with history of chronic alcohol use disorder. * On IV fluid rehydration. Monitor sodium. #Hyperglycemia: glucose is 146. Not a known diabetic. A1c less than 3.8% low. #Hypothyroidism: says she has been taken off synthroid by her PCP. TSH 4.12, in high normal range. #History of bipolar disorder: says she is now off meds for her bipolar disorder. Will monitor. #Elevated blood pressure * BP about 174/79. Repeat BP is 131/68. Not a known hypertensive so this might be due to pain. IV hydralazine as needed. * monitor and start oral BP meds if BP remains elevated. DVT prophylaxis: Hold Lovenox for severe anemia which requiring transfusion. Bilateral SCDs. Code status: full code * Patient counseled extensively about different types of CODE STATUS including full code, DNR CCA and DNR CCA. Patient elects to be full code. Total time of the visit including total time spent in counseling or coordination of care, (more than 50% of the total time, spent in obtaining medical information from nurses and other ancillary care providers,explaining to the patient about labs, imaging, diagnosis and management of active complex medical conditions), detailed history taking, discussion with orthopedic surgeon, review of labs and imaging is 55 minutes Charges/Coding Visit Charges Inpatient E&M: 04614 Subs Hosp L3
--- NOTE | 2022-06-11 08:07 | NURSING ---
pt off floor for surgery
--- NOTE | 2022-06-11 08:07 | PCM.CONS.GEN ---
Assessment & Plan Assessment/Plan (1) Closed fracture of left hip: PLAN: Natural history of the disease process and treatment options were discussed the patient. Patient has significant Sandoval displaced intertrochanteric hip fracture. Operative and nonoperative interventions were discussed. Nonoperative treatment was not recommended based on patient's current health and activity requirements. Surgical intervention including cephalomedullary nail was discussed the patient. Risks of the surgery were discussed including but not limited to blood loss, DVTs, PEs, nervous damage, infection, the risk of anesthesia. Additionally, we discussed nonunion, malunion, hardware failure and screw cut out and associated intraoperative and postoperative fracturing. Postoperative plan including anticoagulation and therapy were outlined. At this time patient wished to proceed with surgery. She is NPO. Plan is to proceed with surgery this morning as she has already received her 2 units of packed red blood cells. Patient demonstrates an understanding wish to proceed. [facility] Office: (2) Hypokalemia: PLAN: Resolved (3) History of bipolar disorder: PLAN: per primary service (4) Anemia: PLAN: Patient's hemoglobin was 6.1 last evening. She received 2 units of packed red blood cells overnight. Vital signs have been stable to proceed with surgery. Anesthesia aware as well as medicine team and patient is been cleared for surgery. HPI Consult Data Date of Consult: 06/11/22 HPI Narrative Reason for Consultation: Left hip pain HPI Narrative: ROZINA HUERTAS, is a 61 F with multiple medical comorbidities including mental health disorders who presents with left hip pain. Patient sustained a mechanical fall yesterday. She had severe tonight 10 left hip pain and required transfer to the emergency department. Pain currently is worse with motion better with immobilization. Denies any numbness and tingling distally. Patient notes that she lives at home by her self. She uses a Rollator to ambulate. She does have extensive history of previous hip nail on the right side with collapse and subsequent revision to a total hip replacement with periprosthetic distal femur fracture. Patient does have a significant history for anemia, she reports associated lightheadedness when she moves around at times consistent with orthostatic hypotension. She does report that yesterday this is how it occurred when she fell she became lightheaded after moving around causing her mechanical fall. [facility] Medical History (Updated 06/11/22 @ 08:[address] Leonard Weiner MD) Alcohol abuse Anemia Bipolar disorder Former smoker GERD (gastroesophageal reflux disease) GI bleed Hypothyroidism Injury of head and neck Kidney stones Osteoporosis Restless legs Ulcer Home Medications pantoprazole 40 mg tablet,delayed release 40 mg PO QHS 04/08/19 [History Last Taken Unknown] Allergy/AdvReac Type Severity Reaction Status Date / Time No Known Allergies Allergy Verified 06/10/22 15:24 Surgical History H/O total hysterectomy History of right hip replacement Social History Smoking Status: Former smoker Physical Exam Const alert and oriented x3 General Appearance: cooperative HEENT normocephalic Eyes PERRL Neck No nuchal rigidity Resp normal respiratory effort Cardio Cardio Narrative: Regular pulse rate GI non-distended Extremity Extremity Narrative: Left lower extremity: Skin clean, dry, and intact. Limb is shortened and externally rotated Motor is intact dorsiflexion, EHL and plantar flexion. Sensation is intact to light touch saphenous, kalina,l superficial peroneal, deep peroneal and tibial distributions. Calves are soft and supple. Skin no wounds Neuro oriented x3 Medical Records Data Attestation: I reviewed the patient's medical records Lab / Micro Data Attestation: I reviewed the patient's lab results. Result Diagrams: 06/11/22 01:55 06/11/22 01:55 Labs: Laboratory Results - last 24 hr 06/10/22 16:05: WBC 13.6 H, RBC 2.87 L, Hgb 7.8 L, Hct 25.3 L, MCV 88.2, MCH 27.2, MCHC 30.8 L, RDW Std Deviation 66.9 H, RDW Coeff of Angelo 22.1 H, Plt Count 270, MPV 9.7, Differential Comment SCANNED 06/10/22 16:05: Sodium 132 L, Potassium 2.3 L*, Chloride 87 L, Carbon Dioxide 31.0, Anion Gap 14, BUN 26 H, Creatinine 1.34 H, Estim Creat Clear Calc 49.59, Est GFR (MDRD) Af Amer 51 L, Est GFR (MDRD) Non-Af 42 L, BUN/Creatinine Ratio 19.4, Glucose 146 H, Calcium 8.6 06/10/22 16:05: Iron 26 L, TIBC 388, Iron Saturation 6.7 L, Ferritin 16, Troponin I High Sens 15, TSH 4.12 H 06/10/22 16:05: Hemoglobin A1c < 3.8 L 06/10/22 20:30: Blood Type O POSITIVE, Antibody Screen NEGATIVE 06/10/22 20:30: Ethyl Alcohol < 3.0 06/10/22 20:30: Magnesium 1.9, Troponin I High Sens 14 06/10/22 20:30: Crossmatch See Detail 06/11/22 01:55: Troponin I High Sens 17 06/11/22 01:55: WBC 9.8, RBC 2.26 L, Hgb 6.1 L, Hct 19.6 L, MCV 86.7, MCH 27.0, MCHC 31.1 L, RDW Std Deviation 66.8 H, RDW Coeff of Angelo 22.2 H, Plt Count 189, MPV 9.1, Immature Gran % (Auto) 0.400, Neut % (Auto) 70.6 H, Lymph % (Auto) 21.0, [place] % (Auto) 7.3, Eos % (Auto) 0.6, Baso % (Auto) 0.1, Absolute Neuts (auto) 6.9, Absolute Lymphs (auto) 2.07, Nucleated RBC % 0, Differential Comment SCANNED, Hypochromasia 2+, Anisocytosis 2+, Microcytosis 2+ 06/11/22 01:55: Sodium 133 L, Potassium 3.6, Chloride 95 L, Carbon Dioxide 30.0, Anion Gap 8, BUN 23 H, Creatinine 1.31 H, Estim Creat Clear Calc 50.73, Est GFR (MDRD) Af Amer 53 L, Est GFR (MDRD) Non-Af 44 L, BUN/Creatinine Ratio 17.6, Glucose 112 H, Calcium 7.9 L 06/11/22 01:55: PT 15.1 H, INR 1.2, APTT 27.2 Radiology Impression Pelvis X-Ray 06/10/22 15:50 IMPRESSION: Acute intertrochanteric fracture of the proximal left femur. Slight increase in size and density of a 13 mm sclerotic focus in the left iliac wing as compared to prior pelvic radiograph of 3 years ago; this most likely represents a bone island but follow-up may be of benefit, possibly due to include a bone scan. Electronically Signed: Sourav Iraheta MD at 17:35 EST , Femur X-Ray 06/10/22 17:00 IMPRESSION: Acute intertrochanteric fracture of the proximal left femur. Nonstandard communication protocol initiated. Electronically Signed: Sourav Iraheta MD at 17:38 EST , ADDENDUM: 06/10/22 1755 IMPRESSION: Acute intertrochanteric fracture of the proximal left femur. Nonstandard communication protocol initiated. N.B. : The above Results were Read Back by Sourav Iraheta MD to Mandeep Allison DO, and understanding confirmed on 06/10/2022 17:48:50 (ET). Electronically Signed: Sourav Iraheta MD at 17:38 EST ,
--- NOTE | 2022-06-11 08:35 | RAD_ITS ---
EXAM: XR LEFT HIP WITH PELVIS WHEN PERFORMED, 2 OR 3 VIEWS CLINICAL INDICATION: FX TECHNIQUE: Two or three views of the left hip with pelvis when performed. This report was created using Flaviar report generation technology. COMPARISON: 06/10/2022. FINDINGS: BONES/JOINTS: Intraoperative digital spot radiograph showing progression of ORIF involving the left femoral intertrochanteric fracture. RAD/HIP, UNI W/ Pelvis 2-3 Views IMPRESSION: Intraoperative digital spot radiographs showing progression of ORIF involving the left femoral intertrochanteric fracture. Electronically Signed: Jose Lucia MD at 9:55 EST ,
[2022-06-11 08:58] LABS: GGTP 7 U/L (5-55); Phosphorus 3.1 mg/dL (2.5-4.9)
--- NOTE | 2022-06-11 09:17 | OP.PCM_ITS ---
Report of Operation Date of Procedure: 06/11/22 Pre-Operative Diagnosis: Left intertrochanteric hip fracture Post-Operative Diagnosis: Left intertrochanteric hip fracture Surgery/Procedure Performed:: Left hip cephalomedullary nail Description of Surgical Findings:: Stable reduction Surgeon: Leonard Weiner insurance examining clerk: Rajat Delgado Type of Anesthesia: General Anesthesiologist: Lefty Garcia Special Medications: Ancef Estimated Blood Loss (mL): 150 Fluids Replaced: 400 ml crystalloid Description of Procedure: Components used: 1. [employer] InterTAN nail short 11.5 mm nail 2. [employer] InterTAN lag screw 105 mm 3. [employer]hew 32.5 millimeter interlocking screw Brief history operative indications: 61-year-old female with significant medical history presented after a fall related to lightheadedness and anemia with a left intertrochanteric hip fracture. After extensive discussion including risk and benefits which include but are not limited to blood loss, PEs, DVTs, neurovascular damage, nonunions, malunions and screw cut out patient has elected to proceed with a left cephalo- medullary nail. Procedure: On the date of the procedure the patient's left hip was marked in the preoperative area and patient was taken back to the operating room. Anesthetic was administered and patient was transferred to the table were all bony prominence identified well-padded and the ipsilateral arm was placed across the chest. Patient was then translated down to the perineal post and the operative leg was placed in the boot while the nonoperative leg was lowered and secured. The operative leg was placed in traction and internal rotation and live fluoroscopy was used to verify adequate reduction. The operative leg was then prepped in a sterile fashion with chlorhexidine while the surgeon scrubbed. Upon reentering the room the operative extremity was draped in the standard orthopedic fashion. Skin incision was marked and a timeout was called. Everyone agreed upon the side, the site, the procedure be performed, patient's identity, and antibiotics given. Skin incision was made and the position of the entry guidepin was verified using live fluoroscopy. Once we were satisfied with our position the pin was advanced in the soft tissue protector was placed over the pin. The entry reamer was then advanced into the proximal portion of the femur. A [employer]hew short InterTAN 11.5 mm 125 hip nail was selected. The nail was then attached to the it investment/portfolio manager and inserted into the intramedullary canal. The appropriate depth was verified and the skin incision for the lag screw was made. The lag screw guidepin was then placed under live fluoroscopy and when a satisfactory position was obtained the length of the screw was measured and the standard technique to drill for the lag screws was performed. The anti-rotation bar was used. At this time a 105 mm lag screw was selected with its corresponding compression screw. The lag screw was then passed and traction was left off the leg. The compression screw was then passed and the fracture was compressed. The final position of the lag screw was verified under fluoroscopy. Setscrew was placed and then backed off 1/4 turn to allow for compression Attention was then turned to the distal portion of the nail and a distal guide technique was used to locate the distal interlocking screw and a 32.5 mm distal interlocking screw was placed using this technique. Live fluoroscopy was used to verify the position of the interlocking screw and the final position of the hip components. Once we were satisfied with our positioning the wounds were copiously irrigated out with normal saline skin was closed with 2-0 Vicryl and sahley for final skin closure. A sterile dressing was placed with Xeroform. Patient was then awakened by anesthesia transferred from the fracture table back to their hospital bed and transferred to the PACU for recovery. Postoperative plan: Patient will be weight-bear as tolerated. Aspirin 81 mg twice daily for 4 weeks for DVT prophylaxis with knee-high stockings. Follow up in the office in 2 weeks. Complications none Admit VTE Documentation VTE Present on Admission: No VTE Mechan Device Prophylaxis: SCD's and Thigh High LESLY Hose VTE Pharm Prophylaxis ordered?: Yes
--- NOTE | 2022-06-11 09:50 | RAD_ITS ---
EXAM: XR LEFT HIP WITH PELVIS WHEN PERFORMED, 2 OR 3 VIEWS CLINICAL INDICATION: Post Op -- AP both hips on single zack/lateral of op hip PACU TECHNIQUE: Two or three views of the left hip with pelvis when performed. This report was created using Mer[employer] report generation technology. COMPARISON: 06/10/2019. FINDINGS: BONES/JOINTS: Partially threaded and threaded metallic screws penetrating the left femoral head and neck and the long trochanteric nail following ORIF of left femoral intertrochanteric fracture. Right metallic hip arthroplasty is unchanged. No destructive or sclerotic lesions. Note that overlapping bowel shadows may however obscure fine detail. Sacroiliac joint is unremarkable. No widening of the pubic symphysis. SOFT TISSUES: Findings postoperative air with soft tissue swelling overlying the left hip. Radiopaque ashley overlying the left hip. RAD/Hip Min 2 Views (Portable) IMPRESSION: Normal postoperative swelling of the left hip following left femoral intertrochanteric fracture ORIF. Electronically Signed: Jose Lucia MD at 10:16 EST ,
[2022-06-11] MEDS: 0.9% Normal Saline 1,000 ML 125 ML IV (09:51)
[2022-06-11 11:58] LABS: Hematocrit 28.9 % (37-47)
[2022-06-11] MEDS: oxyCODONE 5 MG Tablet PO ×2 (15:41→21:31)
[2022-06-11] MEDS: Cefazolin 1 GM/50 ML BAG IV ×2 (17:27→23:37)
[2022-06-11 20:48] LABS: Hematocrit 21.7 % (37-47); Hemoglobin 7.5 g/dL (12.0-15.0)
[2022-06-11] MEDS: Acetaminophen 325 MG Tablet 650 MG PO (21:32)
[2022-06-11] MEDS: Menthol/Lanolin/Calamine/Znox 113 GM Tube 1 APPLIC TOPICAL (21:32)
[2022-06-11] MEDS: Pantoprazole Sodium 20 MG Tablet PO (23:36)
[2022-06-12 04:00] VITALS: BP 122/68; PULSE 88; RESP 18; TEMP 37.2; O2SAT 100
[2022-06-12] MEDS: Ketorolac 15 MG/ML Vial IV ×4 (04:32→22:51)
[2022-06-12] MEDS: 0.9% Saline Lock 10 ML Syringe IV ×3 (04:32→13:22)
[2022-06-12] MEDS: APIXABAN 2.5 MG TABLET (WCH) PO ×2 (04:32→20:29)
[2022-06-12 07:20] VITALS: O2SAT 100
[2022-06-12 07:28] LABS: Absolute Lymphocyte Count 1.27 X10^3/uL (0.83-4.51); Absolute Neutrophil Count 8.4 X10^3/uL (2.0-7.7); Basophil# 0.01 X10^3/uL; Basophil% 0.1 % (0-1); Eosinophils% 0.9 % (0-5); Hematocrit 24.9 % (37-47); Hemoglobin 7.9 g/dL (12.0-15.0); Lymphocyte # 1.27 X10^3/ul (0.83-4.51); Lymphocyte % 11.8 % (19-41); Mean Corp Hgb Conc 31.7 g/dL (32-36); Mean Corpuscular Hgb 28.3 pg (27.0-32.0); Mean Corpuscular Volume 89.2 fL (81-99); Mean Platelet Vol. 9.3 fl (6.2-12.0); Monocyte# 0.88 X10^3/uL; Monocyte% 8.2 % (0-10); NRBC Flagged by Analyzer 0 % (0-5); Neutrophil # 8.41 X10^3/uL (2.7-7.7); Neutrophil % 78.3 % (47-70); Platelet Count 200 K/mm3 (150-450); RBC Distribution Width CV 19.3 % (11.6-14.6); RBC Distribution Width SD 61.2 fl (35.1-43.9); Red Blood Count 2.79 M/mm3 (4.2-5.4); White Blood Count 10.7 K/mm3 (4.4-11.0)
[2022-06-12 08:01] LABS: Anion Gap 8 (5-15); BUN 24 mg/dL (7-18); BUN/Creat Ratio 21.1 RATIO (10-20); Calcium,Total 8.8 mg/dL (8.5-10.1); Chloride 97 mmol/L (98-107); Creatinine, Serum 1.14 mg/dL (0.55-1.02); EST Glomerular Filtration Rate 51 mL/min (>60); Est Glom Filt Rate - Afr Amer 62 mL/min (>60); Estimated Creatinine Clearance 58.29 ml/min; Glucose 123 mg/dL (74-106); Potassium 3.3 mmol/L (3.5-5.1); Sodium Level 133 mmol/L (136-145); T4 Free Direct 1.59 ng/dL (0.76-1.46); Thyroid Stim Hormone (TSH) 3.74 uIU/mL (0.358-3.74)
[2022-06-12] MEDS: Ferrous Sulfate 325 MG Tablet PO ×2 (08:06→12:11)
[2022-06-12] MEDS: Pantoprazole Sodium 20 MG Tablet PO ×2 (10:01→20:29)
[2022-06-12] MEDS: oxyCODONE 5 MG Tablet PO ×2 (10:08→20:29)
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
--- NOTE | 2022-06-12 10:43 | PN.ORTHO_ITS ---
Subjective Subjective Upon entering the room I found patient sitting in a chair at bedside working with physical therapy. My initial encounter patient was ambulating with the assistance of a walker with therapy. Patient feels her pain has been well managed. She is concerned about her stability about returning home at this time. She would like to do a possible week of therapy at [facility] 4th floor rehab. At this time she denies chest pain, shortness of breath, calf pain, nausea vomiting. Objective Data Objective Data Vital Signs: Vital Signs Temp Pulse Resp BP Pulse Ox O2 Del Method 98.9 F 88 18 122/68 H 100 Room Air 06/12/22 04:00 06/12/22 04:00 06/12/22 04:00 06/12/22 04:00 06/12/22 07:20 06/12/22 07:20 Oxygen Delivery Method Room Air Weight: 80.739 kg Body Mass Index (BMI) 24.1 Intake & Output: Intake and Output for Last 24 Hours 06/10/22 06/11/22 06/12/22 23:59 23:59 23:59 Intake Total 1198.33 / 1198.33 2929.17 / 2929.17 Output Total 200 / 200 850 / 850 250 / 250 Balance 998.33 / 998.33 2079.17 / 2079.17 -250 / -250 Lab / Micro Data Result Diagrams: 06/12/22 07:13 06/12/22 07:13 Labs: Laboratory Results - last 24 hr 06/11/22 11:25: Hgb 9.0 L, Hct 28.9 L 06/11/22 20:35: Hgb 7.5 L, Hct 21.7 L 06/12/22 07:13: Sodium 133 L, Potassium 3.3 L, Chloride 97 L, Carbon Dioxide 28.0, Anion Gap 8, BUN 24 H, Creatinine 1.14 H, Estim Creat Clear Calc 58.29, Est GFR (MDRD) Af Amer 62, Est GFR (MDRD) Non-Af 51 L, BUN/Creatinine Ratio 21.1 H, Glucose 123 H, Calcium 8.8, TSH 3.74, Free T4 1.59 H 06/12/22 07:13: WBC 10.7, RBC 2.79 L, Hgb 7.9 L, Hct 24.9 L, MCV 89.2, MCH 28.3, MCHC 31.7 L, RDW Std Deviation 61.2 H, RDW Coeff of Angelo 19.3 H, Plt Count 200, MPV 9.3, Immature Gran % (Auto) 0.700, Neut % (Auto) 78.3 H, Lymph % (Auto) 11.8 L, [place] % (Auto) 8.2, Eos % (Auto) 0.9, Baso % (Auto) 0.1, Absolute Neuts (auto) 8.4 H, Absolute Lymphs (auto) 1.27, Nucleated RBC % 0 Physical Exam Narrative Upon exam I found patient sitting comfortably in a chair at bedside. She is alert oriented. Patient is in no respiratory distress, speaking in full sen tences. Patient has full range of motion of the upper extremities without limitations. The incision of the left hip is covered with a clean dry dressing. Good flexion-extension of bilateral knees ankles and feet. No calf tenderness. Neurovascular is otherwise intact. Const alert and well nourished General Appearance: cooperative HEENT normocephalic Head and Scalp: atraumatic Eyes PERRL Resp normal respiratory effort Effort and Inspection: able to speak in complete sentences Extremity normal capillary refill Skin no rashes or lesions noted Neuro CN's II-XII intact bilaterally Psych mental status grossly normal and affect normal Assessment & Plan Assessment/Plan (1) Closed fracture of left hip requiring operative repair: PLAN: 1. Continue all pain medications as prescribed 2. Continue Eliquis as prescribed for postop DVT prophylaxis 3. Encourage incentive spirometry 4. Weight-bear as tolerated with walker 5. Patient can shower on 06/15/2022 6. Follow-up with Dr. Weiner in 2 weeks 7. Discharge home when clear with medicine
[2022-06-12] MEDS: Potassium Chloride Oral Tablet 20 MEQ 40 MEQ PO ×2 (10:59→13:45)
[2022-06-12] MEDS: Menthol/Lanolin/Calamine/Znox 113 GM Tube 1 APPLIC TOPICAL ×2 (11:02→20:30)
--- NOTE | 2022-06-12 11:10 | CASEMGMT ---
KYLIE ROE Assessment: Face to Face with pt for initial transition planning/care coordination assessment. RN JYOTHI introduced self and role at [facility], pt voices understanding and consents to assessment. Pt is A/O x4 and answers all questions appropriately at this time. Pt sitting up in chair in no distress. Care providers, pharmacy, and demographics verified/updated. Admitting Dx: Left femoral neck fracture, hypokalemia PCP:Mirtha Specialists:Pt to see on Jul 01 for scopes. Preferred Pharmacy: [facility] Insurance: [employer] [facility] Prescription Benefit: yes LNOK: Jo Benjamin, sister; Taylor Estes, cousin Living Arrangements: Pt lives alone in a ground level apt with 1 step to enter. Pt reports she is typically I in ADL's and denies concerns at home. Transportation: Prior to fall pt drove self. DME/HHC/SNF: Pt has a rollator at home as well as a market research specialist. Pt has had HHC in the past but is unsure of the name of the agency. Pt has been to [facility] in the past. Pt has worked with therapy today and states she is agreeable to a SNF for a week or so. Pt is requesting [facility] TCU. Made pt aware taht SW will be in to discuss with her. Pt states no further concerns/needs. CM to follow. Advised pt to ask CM if any further question/concerns/needs arise, voices understanding. Pt Goal: SNF Plan: SNF
--- NOTE | 2022-06-12 11:49 | CASEMGMT ---
Addendum entered by Nae Matta 06/12/22 15:03: Kyleigh from [facility] rehab called. Pt has been accepted. Kyleigh to start precert today. KRZYSZTOF Harrison Addendum entered by Nae Matta 06/12/22 13:56: SW back in to pt room to discuss SNF plan. Pt now asking about rehab unit here at [facility]. SW to check in with Kyleigh to determine if pt can be accepted at rehab unit. NELI explained in the meantime pt needs to give back-up choice. Pt did not want to give choice, discussed irrelevant narrative for more than 20 minutes while SW attempted to redirect pt to discharge plan. Pt finally stated [facility] would be choice if [facility] rehab unit is unable to accept. NELI reached out to Kyleigh at Rehab unit to refer pt. Will await response. KRZYSZTOF Harrison Original Note: Social Work? SW in to meet with pt following update from and therapy team that pt will need placement at nursing facility. SW introduced self and role at the hospital. Pt agreeable to discussing discharge planning. A list of SNF providers including quality and resource use data consistent with the patient?s preferred geographic region, medical needs, and insurance network were provided from the CarePort Guide. Pt reviewed list but asked if could go to TCU. NELI informed that TCU unfortunately has no beds at this time. Pt to review list and discuss with NELI later this day. PLAN: SNF? KRZYSZTOF Harrison?
[2022-06-12 14:30] VITALS: BP 106/66; PULSE 87; RESP 16; TEMP 37.3; O2SAT 96
[2022-06-12] MEDS: 0.9% Normal Saline 1,000 ML 75 ML IV (18:18)
[2022-06-12 20:23] VITALS: BP 96/52; PULSE 96; RESP 18; TEMP 37.3; O2SAT 100
[2022-06-12] MEDS: Acetaminophen 325 MG Tablet 650 MG PO (20:29)
[2022-06-13] VITALS (10 sets, daily range): BP systolic 86–108; BP diastolic 49–65; PULSE 75–94; RESP 18; TEMP 36.4–36.7; O2SAT 97–100
[2022-06-13 03:56] LABS: Urine Chloride 32 mmol/L (Not Establ.); Urine Sodium 5 mmol/L (Not Establ.)
[2022-06-13] MEDS: Acetaminophen 325 MG Tablet 650 MG PO ×3 (03:56→16:33)
[2022-06-13] MEDS: oxyCODONE 5 MG Tablet PO ×3 (03:56→16:24)
[2022-06-13] MEDS: 0.9% Normal Saline 1,000 ML 75 ML IV (05:41)
[2022-06-13] MEDS: Ketorolac 15 MG/ML Vial IV ×4 (05:41→23:15)
[2022-06-13] MEDS: 0.9% Saline Lock 10 ML Syringe IV ×2 (05:41→23:16)
[2022-06-13 06:48] LABS: Absolute Lymphocyte Count 1.44 X10^3/uL (0.83-4.51); Absolute Neutrophil Count 5.7 X10^3/uL (2.0-7.7); Basophil# 0.02 X10^3/uL; Basophil% 0.2 % (0-1); Eosinophils% 1.2 % (0-5); Hematocrit 23.2 % (37-47); Hemoglobin 7.1 g/dL (12.0-15.0); Lymphocyte # 1.44 X10^3/ul (0.83-4.51); Mean Corp Hgb Conc 30.6 g/dL (32-36); Mean Corpuscular Hgb 28.1 pg (27.0-32.0); Mean Corpuscular Volume 91.7 fL (81-99); Mean Platelet Vol. 9.6 fl (6.2-12.0); Monocyte# 1.12 X10^3/uL; Monocyte% 13.3 % (0-10); NRBC Flagged by Analyzer 0 % (0-5); Neutrophil # 5.69 X10^3/uL (2.7-7.7); Neutrophil % 67.4 % (47-70); Platelet Count 224 K/mm3 (150-450); RBC Distribution Width CV 19.6 % (11.6-14.6); RBC Distribution Width SD 64.2 fl (35.1-43.9); Red Blood Count 2.53 M/mm3 (4.2-5.4); White Blood Count 8.5 K/mm3 (4.4-11.0)
[2022-06-13 07:35] LABS: Anion Gap 8 (5-15); BUN 24 mg/dL (7-18); Calcium,Total 8.1 mg/dL (8.5-10.1); Chloride 104 mmol/L (98-107); EST Glomerular Filtration Rate 60 mL/min (>60); Est Glom Filt Rate - Afr Amer 72 mL/min (>60); Estimated Creatinine Clearance 66.45 ml/min; Glucose 110 mg/dL (74-106); Potassium 4.5 mmol/L (3.5-5.1); Sodium Level 137 mmol/L (136-145)
[2022-06-13] MEDS: Potassium Chloride Oral Tablet 20 MEQ 40 MEQ PO (09:01)
[2022-06-13] MEDS: Menthol/Lanolin/Calamine/Znox 113 GM Tube 1 APPLIC TOPICAL ×2 (09:03→21:07)
[2022-06-13] MEDS: Pantoprazole Sodium 20 MG Tablet PO ×2 (09:03→21:07)
[2022-06-13] MEDS: APIXABAN 2.5 MG TABLET (WCH) PO ×2 (09:03→21:07)
[2022-06-13] MEDS: Ferrous Sulfate 325 MG Tablet PO (12:52)
--- NOTE | 2022-06-13 14:14 | CASEMGMT ---
Social Work Kyleigh from [facility] reached out. Kyleigh explained some errors in [facility] system which indicated pt had medicaid. Kyleigh stated today the system listed pt has medicare. A new precert has been started. KRZYSZTOF Harrison
--- NOTE | 2022-06-13 15:47 | PN.HOSP_ITS ---
Subjective Subjective Doing well, no issues overnight Objective Data Objective Data Vital Signs: Vital Signs Temp Pulse Resp BP Pulse Ox O2 Del Method 98.0 F 88 18 95/55 L 98 Room Air 06/13/22 08:53 06/13/22 11:36 06/13/22 08:53 06/13/22 10:23 06/13/22 08:53 06/13/22 09:30 Oxygen Delivery Method Room Air Weight: 178 lb Body Mass Index (BMI) 24.1 Intake & Output: Intake and Output for Last 24 Hours 06/12/22 06/13/22 06/14/22 03:59 03:59 03:59 Intake Total 1900 / 1900 270 / 270 1353.75 / 1353.75 Output Total 850 / 850 250 / 250 425 / 425 Balance 1050 / 1050 928.75 / 928.75 Lab / Micro Data Result Diagrams: 06/13/22 06:05 06/13/22 06:05 Labs: Laboratory Results - last 24 hr 06/13/22 03:30: Ur Random Sodium 5, Urine Creatinine 283.00, Urine Potassium 73.0, Urine Chloride 32 06/13/22 06:05: WBC 8.5, RBC 2.53 L, Hgb 7.1 L, Hct 23.2 L, MCV 91.7, MCH 28.1, MCHC 30.6 L, RDW Std Deviation 64.2 H, RDW Coeff of Angelo 19.6 H, Plt Count 224, MPV 9.6, Immature Gran % (Auto) 0.900, Neut % (Auto) 67.4, Lymph % (Auto) 17.0 L , [place] % (Auto) 13.3 H, Eos % (Auto) 1.2, Baso % (Auto) 0.2, Absolute Neuts (auto) 5.7, Absolute Lymphs (auto) 1.44, Nucleated RBC % 0 06/13/22 06:05: Sodium 137, Potassium 4.5, Chloride 104, Carbon Dioxide 25.0, Anion Gap 8, BUN 24 H, Creatinine 1.00, Estim Creat Clear Calc 66.45, Est GFR (MDRD) Af Amer 72, Est GFR (MDRD) Non-Af 60, BUN/Creatinine Ratio 24.0 H, Glucose 110 H, Calcium 8.1 L Physical Exam Narrative General: Alert, Oriented x3, Cooperative, No apparent distress HEENT: Atraumatic, PERRLA, EOMI, Normocephalic Oral: Moist Mucosa Neck: Supple, No JVD Lungs: Diminished, Normal air movement, No rhonchi, No wheeze, No rales Cardiovascular: Regular rate, Regular Rhythm, Normal S1, Normal S2, No murmurs Abdomen: Soft, Non Tender, Non-Distended, No Hepato-splenomegaly Extremities: No edema, Capillary Refill Less than 3 Seconds Skin: No rashes, No breakdown Musculoskeletal: Left hip pain to palpation, dressing intact Neurological: Cranial nerves II-XII grossly intact, Motor Exam 5/5 strength throughout, Sensory exam intact to light touch and pain Psych/Mental Status: Normal Affect, Appropriate Assessment & Plan Assessment/Plan (1) Fall: (2) Left displaced femoral neck fracture: (3) Hypokalemia: PLAN: Plan #Acute left intertrochanteric femoral fracture due to mechanical fall: Patient is being admitted on [facility] floor. Orthopedic surgeon Dr. Weiner consulted and discussed with him. Patient is being taken for surgery after 2 units of PRBC transfusion. * PO tylenol, PO oxycodone and IV morphine prn for pain * PT/OT consult fall precautions * NSQIP risk assessment showed below average risk of serious complication (4.9%) and below average risk of any complication (6.7%z), however, in light of patient's anemia and history of binge drinking of alcohol, patient is risk stratified for surgery with moderate risk. 06/12: Patient had left cephalomedullary nail on 06/11. Patient tolerated the procedure well. Follow-up by orthopedic appreciated. 06/13/2022: Pre-CERT pending for rehab #Acute anemia on mixed chronic iron deficiency and anemia of chronic disease: Her baseline hemoglobin is about 9.4 g on 05/02/2022. Admitted with hemoglobin 7.8 dropped to 6.1/19%. She is getting the second unit. Plan for surgery today. MCV normal. RDW high at 22.2%. Platelet count normal. She has history of possible GI bleed from polyps, on PPI. She has colonoscopy scheduled in June with [facility]. * Records from [facility] requested. * Serum iron low, TIBC normal with iron saturation 6.7%. Ferritin 16. 06/12:Hemoglobin 7.9. IV iron given. Patient on ferrous sulfate. On ascorbic acid. Stool for occult blood ordered. 06/13/2022: Hemoglobin is 7.1, will repeat an H&H and if less than 7 will transfuse #Chronic alcohol use disorder * Patient states she usually binge drinks. The last time she binge drank was about a week ago and says she drank about half a gallon of alcohol. * She says she has never gone into withdrawal before. * serum alcohol level normal less than 3.0. GGT ordered * close monitoring for alcohol withdrawal post surgery. #Elevated Cr?resolved #Mild hyponatremia-resolved #Hypothyroidism: says she has been taken off synthroid by her PCP. TSH 4.12, in high normal range. #History of bipolar disorder: says she is now off meds for her bipolar disorder. Will monitor. #Elevated blood pressure?resolved DVT: Eliquis 2.5 mg p.o. twice daily Charges/Coding Visit Charges Inpatient E&M: 95929 Subs Hosp L2
[2022-06-13 16:13] LABS: Hematocrit 22.7 % (37-47)
[2022-06-14] VITALS (12 sets, daily range): BP systolic 96–114; BP diastolic 45–68; PULSE 78–98; RESP 18; TEMP 36.5–37.2; O2SAT 98–100
[2022-06-14] MEDS: Calcium Carbonate 500 MG Tablet 1000 MG PO ×4 (04:26→20:30)
[2022-06-14] MEDS: Ketorolac 15 MG/ML Vial IV ×3 (04:26→17:42)
[2022-06-14 06:48] LABS: Absolute Neutrophil Count 4.2 X10^3/uL (2.0-7.7); Basophil# 0.02 X10^3/uL; Basophil% 0.3 % (0-1); Eosinophil# 0.13 X10^3/uL; Eosinophils% 1.9 % (0-5); Hematocrit 20.2 % (37-47); Hemoglobin 6.3 g/dL (12.0-15.0); Lymphocyte % 21.9 % (19-41); Mean Corp Hgb Conc 31.2 g/dL (32-36); Mean Corpuscular Hgb 28.5 pg (27.0-32.0); Mean Corpuscular Volume 91.4 fL (81-99); Mean Platelet Vol. 9.1 fl (6.2-12.0); Monocyte# 0.93 X10^3/uL; Monocyte% 13.6 % (0-10); NRBC Flagged by Analyzer 0 % (0-5); Neutrophil # 4.21 X10^3/uL (2.7-7.7); Neutrophil % 61.4 % (47-70); POSITIVE MORPHOLOGY YES; Platelet Count 241 K/mm3 (150-450); RBC Distribution Width CV 20.6 % (11.6-14.6); RBC Distribution Width SD 67.6 fl (35.1-43.9); Red Blood Count 2.21 M/mm3 (4.2-5.4); White Blood Count 6.9 K/mm3 (4.4-11.0)
[2022-06-14 06:51] LABS: Differential Indicated SCAN CRITERIA MET
[2022-06-14 07:09] LABS: Anisocytosis 2+; Differential Comment SCANNED; Microcytosis 2+
[2022-06-14 07:10] LABS: Anion Gap 6 (5-15); BUN 22 mg/dL (7-18); BUN/Creat Ratio 23.9 RATIO (10-20); Calcium,Total 8.4 mg/dL (8.5-10.1); Chloride 110 mmol/L (98-107); Creatinine, Serum 0.92 mg/dL (0.55-1.02); EST Glomerular Filtration Rate 65 mL/min (>60); Est Glom Filt Rate - Afr Amer 79 mL/min (>60); Estimated Creatinine Clearance 72.23 ml/min; Glucose 101 mg/dL (74-106); Potassium 4.9 mmol/L (3.5-5.1); Sodium Level 140 mmol/L (136-145)
[2022-06-14] MEDS: Potassium Chloride Oral Tablet 20 MEQ 40 MEQ PO (07:54)
[2022-06-14] MEDS: 0.9% Saline Lock 10 ML Syringe IV ×4 (07:55→17:44)
[2022-06-14] MEDS: Acetaminophen 325 MG Tablet 650 MG PO ×3 (08:08→20:24)
[2022-06-14] MEDS: oxyCODONE 5 MG Tablet PO ×3 (08:09→20:25)
[2022-06-14] MEDS: APIXABAN 2.5 MG TABLET (WCH) PO ×2 (10:22→22:08)
[2022-06-14] MEDS: Pantoprazole Sodium 20 MG Tablet PO ×2 (10:22→22:08)
--- NOTE | 2022-06-14 13:23 | CASEMGMT ---
Social Work Kyleigh from TCU[facility]Rehab reached out. Pt insurance requesting a peer to peer for approval to rehab unit. SW updated MD Roach of peer to peer or option to try for TCU as a new bed just opened. MD Roach informed to try for TCU placement. SW reported back to [place]. Kyleigh to start precert for pt at [facility]. SW informed pt of this. Pt voiced understanding, confirmed okay with new plan as it would still mean a placement at [facility]. PLAN: TCU, pending precert KRYZSZTOF Harrison
[2022-06-14] MEDS: Ferrous Sulfate 325 MG Tablet PO (13:24)
--- NOTE | 2022-06-14 17:00 | PN.HOSP_ITS ---
Subjective Subjective Doing well, no issues overnight. Denies any lightheadedness, her hemoglobin did drop to 6.3 today possibly postoperative though she says that she is supposed to have an EGD/colonoscopy as an outpatient in [place] Objective Data Objective Data Vital Signs: Vital Signs Temp Pulse Resp BP Pulse Ox O2 Del Method 98.6 F 85 18 100/53 L 98 Room Air 06/14/22 16:37 06/14/22 16:37 06/14/22 16:37 06/14/22 16:37 06/14/22 16:37 06/14/22 16:37 Oxygen Delivery Method Room Air Weight: 178 lb Body Mass Index (BMI) 24.1 Intake & Output: Intake and Output for Last 24 Hours 06/13/22 06/14/22 06/15/22 03:59 03:59 03:59 Intake Total 270 / 270 2953.75 / 2953.75 1200 / 1200 Output Total 250 / 250 775 / 775 750 / 750 Balance / 20 2178.75 / 2178.75 450 / 450 Lab / Micro Data Result Diagrams: 06/14/22 06:32 06/14/22 06:32 Labs: Laboratory Results - last 24 hr 06/10/22 20:30: Crossmatch See Detail 06/13/22 16:00: Blood Type O POSITIVE, Antibody Screen NEGATIVE, Crossmatch See Detail 06/14/22 06:32: WBC 6.9, RBC 2.21 L, Hgb 6.3 L, Hct 20.2 L, MCV 91.4, MCH 28.5, MCHC 31.2 L, RDW Std Deviation 67.6 H, RDW Coeff of Angelo 20.6 H, Plt Count 241, MPV 9.1, Immature Gran % (Auto) 0.900, Neut % (Auto) 61.4, Lymph % (Auto) 21.9, [place] % (Auto) 13.6 H, Eos % (Auto) 1.9, Baso % (Auto) 0.3, Absolute Neuts (auto) 4.2, Absolute Lymphs (auto) 1.50, Nucleated RBC % 0, Differential Comment SCANNED, Anisocytosis 2+, Microcytosis 2+ 06/14/22 06:32: Sodium 140, Potassium 4.9, Chloride 110 H, Carbon Dioxide 24.0, Anion Gap 6, BUN 22 H, Creatinine 0.92, Estim Creat Clear Calc 72.23, Est GFR (MDRD) Af Amer 79, Est GFR (MDRD) Non-Af 65, BUN/Creatinine Ratio 23.9 H, Glucose 101, Calcium 8.4 L Physical Exam Narrative General: Alert, Oriented x3, Cooperative, No apparent distress HEENT: Atraumatic, PERRLA, EOMI, Normocephalic Oral: Moist Mucosa Neck: Supple, No JVD Lungs: Diminished, Normal air movement, No rhonchi, No wheeze, No rales Cardiovascular: Regular rate, Regular Rhythm, Normal S1, Normal S2, No murmurs Abdomen: Soft, Non Tender, Non-Distended, No Hepato-splenomegaly Extremities: No edema, Capillary Refill Less than 3 Seconds Skin: No rashes, No breakdown Musculoskeletal: Left hip pain to palpation, dressing intact Neurological: Cranial nerves II-XII grossly intact, Motor Exam 5/5 strength throughout, Sensory exam intact to light touch and pain Psych/Mental Status: Normal Affect, Appropriate Assessment & Plan Assessment/Plan (1) Fall: (2) Left displaced femoral neck fracture: (3) Hypokalemia: PLAN: Plan #Acute left intertrochanteric femoral fracture due to mechanical fall: [facility]. Orthopedic surgeon Dr. Weiner consulted and discussed with him. Patient is being taken for surgery after 2 units of PRBC transfusion. * PO tylenol, PO oxycodone and IV morphine prn for pain * PT/OT consult fall precautions * NSQIP risk assessment showed below average risk of serious complication (4.9%) and below average risk of any complication (6.7%z), however, in light of patient's anemia and history of binge drinking of alcohol, patient is risk stratified for surgery with moderate risk. 06/12: Patient had left cephalomedullary nail on 06/11. Patient tolerated the procedure well. Follow-up by orthopedic appreciated. 06/13/2022: Pre-CERT pending for rehab 06/14/2022: She got denied for rehab so we will attempt SNF placement #Acute anemia on mixed chronic iron deficiency and anemia of chronic disease: Her baseline hemoglobin is about 9.4 g on 05/02/2022. Admitted with hemoglobin 7.8 dropped to 6.1/19%. She is getting the second unit. Plan for surgery today. MCV normal. RDW high at 22.2%. Platelet count normal. She has history of possible GI bleed from polyps, on PPI. She has colonoscopy scheduled in June with [facility]. * Records from [facility] requested. * Serum iron low, TIBC normal with iron saturation 6.7%. Ferritin 16. 06/12:Hemoglobin 7.9. IV iron given. Patient on ferrous sulfate. On ascorbic acid. Stool for occult blood ordered. 06/13/2022: Hemoglobin is 7.1, will repeat an H&H and if less than 7 will transfuse 06/14/2022: Hemoglobin 6.3, will transfuse 2 units and recheck in the morning, will continue with her PPI #Chronic alcohol use disorder * Patient states she usually binge drinks. The last time she binge drank was about a week ago and says she drank about half a gallon of alcohol. * She says she has never gone into withdrawal before. * serum alcohol level normal less than 3.0. GGT ordered * close monitoring for alcohol withdrawal post surgery. #Hypothyroidism: says she has been taken off synthroid by her PCP. TSH 4.12, in high normal range. #History of bipolar disorder: says she is now off meds for her bipolar disorder. Will monitor. #Elevated blood pressure?resolved DVT: Eliquis 2.5 mg p.o. twice daily Charges/Coding Visit Charges Inpatient E&M: 69860 Subs Hosp L2
--- NOTE | 2022-06-14 18:28 | PCM.PN.ORT ---
Subjective Subjective Patient is sitting at bedside and doing well this evening with no complaints. She does report chronic lightheadedness. She had chronic anemia on admission. She received 2 units postoperatively of packed red blood cells. She received 2 more today. She does have an outpatient work-up for GI bleed that she would like to proceed with here in the hospital. She reports pain in her thigh is well controlled. She has not noted any excessive swelling over the last 48 hours. Objective Data Objective Data Vital Signs: Vital Signs Temp Pulse Resp BP Pulse Ox O2 Del Method 98.5 F 78 18 114/64 98 Room Air 06/14/22 17:48 06/14/22 17:48 06/14/22 17:48 06/14/22 17:48 06/14/22 17:48 06/14/22 17:51 Oxygen Delivery Method Room Air Weight: 178 lb Body Mass Index (BMI) 24.1 Intake & Output: Intake and Output for Last 24 Hours 06/12/22 06/13/22 06/14/22 23:59 23:59 23:59 Intake Total 270 / 270 2953.75 / 2953.75 1550 / 1550 Output Total 250 / 250 775 / 775 950 / 950 Balance 2178.75 / 2178.75 600 / 600 Lab / Micro Data Attestation: I reviewed the patient's lab results. Result Diagrams: 06/14/22 06:32 06/14/22 06:32 Labs: Laboratory Results - last 24 hr 06/10/22 20:30: Crossmatch See Detail 06/13/22 16:00: Blood Type O POSITIVE, Antibody Screen NEGATIVE, Crossmatch See Detail 06/14/22 06:32: WBC 6.9, RBC 2.21 L, Hgb 6.3 L, Hct 20.2 L, MCV 91.4, MCH 28.5, MCHC 31.2 L, RDW Std Deviation 67.6 H, RDW Coeff of Angelo 20.6 H, Plt Count 241, MPV 9.1, Immature Gran % (Auto) 0.900, Neut % (Auto) 61.4, Lymph % (Auto) 21.9, [place] % (Auto) 13.6 H, Eos % (Auto) 1.9, Baso % (Auto) 0.3, Absolute Neuts (auto) 4.2, Absolute Lymphs (auto) 1.50, Nucleated RBC % 0, Differential Comment SCANNED, Anisocytosis 2+, Microcytosis 2+ 06/14/22 06:32: Sodium 140, Potassium 4.9, Chloride 110 H, Carbon Dioxide 24.0, Anion Gap 6, BUN 22 H, Creatinine 0.92, Estim Creat Clear Calc 72.23, Est GFR (MDRD) Af Amer 79, Est GFR (MDRD) Non-Af 65, BUN/Creatinine Ratio 23.9 H, Glucose 101, Calcium 8.4 L Physical Exam Const alert, oriented x3 and no apparent distress Resp normal respiratory effort Extremity Extremity Narrative: Left lower extremity: Dressings are dry and intact. Mild saturation proximally. Thigh is soft and supple. No excessive swelling. No excessive ecchymosis. Dorsiflexion EHL and plantar flexion are intact distally. Saphenous sural, superficial peroneal deep peroneal tibial nerve distributions are all intact to light touch. Assessment & Plan Assessment/Plan (1) Closed fracture of left hip requiring operative repair: PLAN: Postop day 3 left hip nail. Overall patient appears to be doing well. Patient was placed on Eliquis for DVT prophylaxis postoperatively due to her history of ulcerations in the stomach. However, if she has an active bleed risk of continuing anticoagulation may exceed the risk of DVT. She has had 4 units of packed red blood cell postoperatively and has consistent chronic anemia. Currently, her thigh is stable her pain is under control and her x-rays show well reduced fracture. Orthopedically no further intervention is needed. Please call with any further questions or concerns. Additionally, if medicine would like to discuss further risk and benefit analysis for DVT prophylaxis please contact me directly. BEE [facility] Office:
[2022-06-15] VITALS (7 sets, daily range): BP systolic 110–134; BP diastolic 64–72; PULSE 82–88; RESP 16–18; TEMP 36.8–37.2; O2SAT 97–100
[2022-06-15] MEDS: 0.9% Saline Lock 10 ML Syringe IV ×2 (00:25→06:24)
[2022-06-15] MEDS: Ketorolac 15 MG/ML Vial IV ×4 (00:25→17:04)
[2022-06-15 07:11] LABS: Absolute Lymphocyte Count 1.69 X10^3/uL (0.83-4.51); Absolute Neutrophil Count 4.1 X10^3/uL (2.0-7.7); Basophil# 0.01 X10^3/uL; Basophil% 0.1 % (0-1); Eosinophil# 0.12 X10^3/uL; Eosinophils% 1.7 % (0-5); Hematocrit 28.7 % (37-47); Hemoglobin 9.4 g/dL (12.0-15.0); Lymphocyte # 1.69 X10^3/ul (0.83-4.51); Lymphocyte % 24.2 % (19-41); Mean Corp Hgb Conc 32.8 g/dL (32-36); Mean Corpuscular Hgb 29.8 pg (27.0-32.0); Mean Corpuscular Volume 91.1 fL (81-99); Mean Platelet Vol. 9.3 fl (6.2-12.0); Monocyte# 1.01 X10^3/uL; Monocyte% 14.4 % (0-10); NRBC Flagged by Analyzer 0 % (0-5); Neutrophil # 4.08 X10^3/uL (2.7-7.7); Neutrophil % 58.5 % (47-70); Platelet Count 302 K/mm3 (150-450); RBC Distribution Width CV 19.9 % (11.6-14.6); RBC Distribution Width SD 64.6 fl (35.1-43.9); Red Blood Count 3.15 M/mm3 (4.2-5.4)
[2022-06-15 07:48] LABS: Anion Gap 6 (5-15); BUN 22 mg/dL (7-18); BUN/Creat Ratio 23.1 RATIO (10-20); Calcium,Total 8.4 mg/dL (8.5-10.1); Chloride 108 mmol/L (98-107); Creatinine, Serum 0.95 mg/dL (0.55-1.02); EST Glomerular Filtration Rate 63 mL/min (>60); Est Glom Filt Rate - Afr Amer 76 mL/min (>60); Estimated Creatinine Clearance 69.95 ml/min; Glucose 96 mg/dL (74-106); Sodium Level 137 mmol/L (136-145)
[2022-06-15] MEDS: Potassium Chloride Oral Tablet 20 MEQ 40 MEQ PO (08:49)
[2022-06-15] MEDS: Menthol/Lanolin/Calamine/Znox 113 GM Tube 1 APPLIC TOPICAL (08:49)
[2022-06-15] MEDS: Pantoprazole Sodium 20 MG Tablet PO ×2 (08:50→21:18)
[2022-06-15] MEDS: APIXABAN 2.5 MG TABLET (WCH) PO ×2 (08:50→21:18)
--- NOTE | 2022-06-15 09:39 | CASEMGMT ---
Addendum entered by Lety Collins 06/15/22 15:15: Social Work Return call from Kyleigh in TCU who states pt has been denied by insurance. No peer to peer option is given but pt can request a fast appeal. SW met with pt and explained the above. Also discussed option of going to ECF under medicaid. Pt adamantly refusing going to ECF and denies wanting to complete appeal process. Pt is agreeable to return home with home health, but is concerned with getting answers to medical questions prior to discharge. A list of home health providers including quality and resource use data and consistent with the patient?s preferred geographic region, medical needs, and insurance network were provided from the [employer]Port Guide. Pt would like to consider options and will then let SW know of choice. NELI updated physician of denial and of pt's medical concerns. RNCM updated. KRZYSZTOF Syed Original Note: Social Work Phone call to Kyleigh in TCU and precert has not yet been obtained. Kyleigh to notify SW when precert is given. Plan: TCU, pending precert KRZYSZTOF Syed
--- NOTE | 2022-06-15 09:41 | PN.HOSP_ITS ---
Subjective Subjective No issues overnight, hemoglobin corrected to 9.4 which after 2 units is a slight overcorrection, will recheck 2 PM Objective Data Objective Data Vital Signs: Vital Signs Temp Pulse Resp BP Pulse Ox O2 Del Method 98.8 F 87 16 113/72 100 Room Air 06/15/22 07:53 06/15/22 08:04 06/15/22 07:53 06/15/22 07:53 06/15/22 07:53 06/15/22 07:53 Oxygen Delivery Method Room Air Weight: 178 lb Body Mass Index (BMI) 24.1 Intake & Output: Intake and Output for Last 24 Hours 06/14/22 06/15/22 06/16/22 03:59 03:59 03:59 Intake Total 2953.75 / 2953.75 2350 / 2350 400 / 400 Output Total 775 / 775 1450 / 1450 400 / 400 Balance 2178.75 / 2178.75 900 / 900 0 / 0 Lab / Micro Data Result Diagrams: 06/15/22 06:50 06/15/22 06:50 Labs: Laboratory Results - last 24 hr 06/10/22 20:30: Crossmatch See Detail 06/13/22 16:00: Blood Type O POSITIVE, Antibody Screen NEGATIVE, Crossmatch See Detail 06/15/22 06:50: WBC 7.0, RBC 3.15 L, Hgb 9.4 L, Hct 28.7 L, MCV 91.1, MCH 29.8, MCHC 32.8 D, RDW Std Deviation 64.6 H, RDW Coeff of Angelo 19.9 H, Plt Count 302, MPV 9.3, Immature Gran % (Auto) 1.100 H, Neut % (Auto) 58.5, Lymph % (Auto) 24.2, [place] % (Auto) 14.4 H, Eos % (Auto) 1.7, Baso % (Auto) 0.1, Absolute Neuts (auto) 4.1, Absolute Lymphs (auto) 1.69, Nucleated RBC % 0 06/15/22 06:50: Sodium 137, Potassium 5.0, Chloride 108 H, Carbon Dioxide 23.0, Anion Gap 6, BUN 22 H, Creatinine 0.95, Estim Creat Clear Calc 69.95, Est GFR (MDRD) Af Amer 76, Est GFR (MDRD) Non-Af 63, BUN/Creatinine Ratio 23.1 H, Glucos e 96, Calcium 8.4 L Micro: Microbiology 06/14/22 18:40 Stool Stool Occult Blood (NOAH) - Final Physical Exam Narrative General: Alert, Oriented x3, Cooperative, No apparent distress HEENT: Atraumatic, PERRLA, EOMI, Normocephalic Oral: Moist Mucosa Neck: Supple, No JVD Lungs: Diminished, Normal air movement, No rhonchi, No wheeze, No rales Cardiovascular: Regular rate, Regular Rhythm, Normal S1, Normal S2, No murmurs Abdomen: Soft, Non Tender, Non-Distended, No Hepato-splenomegaly Extremities: No edema, Capillary Refill Less than 3 Seconds Skin: No rashes, No breakdown Musculoskeletal: Left hip pain to palpation, dressing intact Neurological: Cranial nerves II-XII grossly intact, Motor Exam 5/5 strength throughout, Sensory exam intact to light touch and pain Psych/Mental Status: Normal Affect, Appropriate Assessment & Plan Assessment/Plan (1) Fall: (2) Left displaced femoral neck fracture: (3) Hypokalemia: PLAN: Plan 1. Acute left intertrochanteric femoral fracture due to mechanical fall status postrepair on 06/11/2022/acute anemia on mixed chronic iron deficiency anemia and anemia of chronic disease ? Continue with pain management ? PT/OT for possible placement to TCU ? She did have 2 units of blood prior to surgery however she is continued to be slightly anemic and yesterday was 6.3 and had to be transfused another 2 units ? Attempting a stool sample to check for blood she states that she is have a col onoscopy in the next week or so in [place] ?Her serum iron is low and her TIBC was normal with an iron saturation of 6.7% and a ferritin of 16 she was given a dose of IV iron on the can repeat a d ose tomorrow 2. Chronic alcohol use/bipolar disorder ? She states that she does binge drink and she had drank about a week prior about half a gallon of alcohol ? Currently not going through withdrawal and serum alcohol level on admission was normal ? She does not take any medications for her bipolar disorder as an outpatient 3. Hypothyroidism ? Stable ? Her TSH is 4.12 and she states that she was taken off of Synthroid by her PCP DVT: Eliquis 2.5 mg p.o. twice daily Charges/Coding Visit Charges Inpatient E&M: 54424 Subs Hosp L2
[2022-06-15] MEDS: Acetaminophen 325 MG Tablet 650 MG PO (11:27)
[2022-06-15] MEDS: Ferrous Sulfate 325 MG Tablet PO (11:27)
[2022-06-15] MEDS: oxyCODONE 5 MG Tablet PO (11:27)
[2022-06-15 13:49] LABS: Hematocrit 27.5 % (37-47); Hemoglobin 8.8 g/dL (12.0-15.0)
--- NOTE | 2022-06-15 17:13 | NURSING ---
pt having bowel movements and placing the stool in trash can. pt stated that it is easier to go to bathroom this way.
[2022-06-16] MEDS: 0.9% Saline Lock 10 ML Syringe IV (00:04)
[2022-06-16] MEDS: Ketorolac 15 MG/ML Vial IV (00:05)
[2022-06-16 02:37] VITALS: BP 138/70; PULSE 84; RESP 18; TEMP 36.9; O2SAT 100
[2022-06-16 06:45] LABS: Absolute Lymphocyte Count 1.75 X10^3/uL (0.83-4.51); Absolute Neutrophil Count 3.5 X10^3/uL (2.0-7.7); Basophil# 0.02 X10^3/uL; Basophil% 0.3 % (0-1); Eosinophil# 0.11 X10^3/uL; Eosinophils% 1.7 % (0-5); Hematocrit 29.9 % (37-47); Hemoglobin 9.1 g/dL (12.0-15.0); Lymphocyte # 1.75 X10^3/ul (0.83-4.51); Lymphocyte % 27.8 % (19-41); Mean Corp Hgb Conc 30.4 g/dL (32-36); Mean Corpuscular Hgb 28.3 pg (27.0-32.0); Mean Corpuscular Volume 93.1 fL (81-99); Monocyte# 0.88 X10^3/uL; NRBC Flagged by Analyzer 0 % (0-5); Neutrophil # 3.45 X10^3/uL (2.7-7.7); Neutrophil % 54.9 % (47-70); POSITIVE MORPHOLOGY YES; Platelet Count 308 K/mm3 (150-450); RBC Distribution Width CV 19.4 % (11.6-14.6); RBC Distribution Width SD 66.3 fl (35.1-43.9); Red Blood Count 3.21 M/mm3 (4.2-5.4); White Blood Count 6.3 K/mm3 (4.4-11.0)
[2022-06-16 06:49] LABS: Differential Indicated SCAN CRITERIA MET
[2022-06-16 07:03] LABS: Anisocytosis 1+; Differential Comment SCANNED; Hypochromasia 1+
--- NOTE | 2022-06-16 07:14 | DCINST_ITS ---
Discharge Instructions Diet Discharge Diet: No restrictions Activity Discharge Activity: Return to Normal Activity Dressing / Incision Call your doctor if you observe: Fever of 101 or Higher, Shortness of breath, Dizziness, Fainting spells, Swelling in the ankles, Chest pain and Increased palpitations (irregular heartbeat) Follow Up Care Test Results: Test results from this visit will be discussed in further detail at your follow- up appointment, if applicable. Discharge Plan Admission Admit Date/Time: 06/10/22 18:48 Attending Provider: Tyrone Roach Primary Care Provider: Gonsalo Shannon Consulting Providers: Leonard Weiner ; Renetta Recinos ; Jerry Lopez Instructions Additional Instructions / Restrictions: Follow-up with your PCP to obtain a CBC to monitor your hemoglobin as an outpatient. Discharge Orders/Prescriptions Prescriptions: New Eliquis 5 mg Tablet 2.5 mg PO BID Qty: 60 0RF ascorbic acid (vitamin C) [Vitamin C] 500 mg tablet 500 mg PO BID Qty: 60 0RF Rx Instructions: Take with iron Continued pantoprazole 40 MG tablet 20 mg PO BID ferrous sulfate [FeroSul] 325 mg (65 mg iron) tablet 325 mg PO BID Label Comments: take 1 tablet by mouth twice a day with meals Referrals / Follow Up: Leonard Weiner MD [Med Staff - Active Staff] - Within 2 Weeks Gonsalo Shannon [Primary Care Provider] - Within 1 Week Disposition Disposition (needs filled in before D/C Order can be placed): Home Health Service
[2022-06-16 08:40] VITALS: BP 141/78; PULSE 81; RESP 18; TEMP 36.7; O2SAT 100
[2022-06-16] MEDS: Pantoprazole Sodium 20 MG Tablet PO ×2 (08:46→21:50)
[2022-06-16] MEDS: APIXABAN 2.5 MG TABLET (WCH) PO ×2 (08:46→23:48)
[2022-06-16] MEDS: Menthol/Lanolin/Calamine/Znox 113 GM Tube 1 APPLIC TOPICAL (08:46)
--- NOTE | 2022-06-16 09:40 | CASEMGMT ---
Addendum entered by Zuleika Cervantes 06/16/22 15:32: TC to [facility], spoke with pharmacist, the eliquis cost is $4.30. There is no issue with the rx. 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 Addendum entered by Zuleika Cervantes 06/16/22 14:55: Referral sent to [facility] via [facility] who states pt care exceeds capacity. Received tc back from Jennifer at [facility], they are able to accept pt for SOC on Sunday. Addendum entered by Zuleika Cervantes 06/16/22 14:33: TC to [facility] [place] to check eliquis cost, pharmacist states there is an issue with the rx but he is not aware as the pharmacist is not available now who had the question. RN JYOTHI provided phone number to call once pharmacist back. Addendum entered by Zuleika Cervantes 06/16/22 14:22: [place] [facility] [place] [facility] [place]. Addendum entered by Zuleika Cervantes 06/16/22 13:43: Pt chose [facility] for DME. Provided her with a verbal local list of DME providers for FWW. Addendum entered by Zuleika Cervantes 06/16/22 13:35: Made aware that [facility] cannot take pt at this time. RN JYOTHI in to pt room, pt cursed at this RN CM, after she finished cursing she then chose [facility] and [facility]. TC to Jennifer at [facility], referral made via voicemail. Will await returned call. Original Note: KYLIE ROE in to pt room, pt has chosen [facility]. Asked pt for second and third choice, pt became upset and states she needs time as she needs to google these. TC to [facility], spoke with Yareli, she states that currently their therapy is not servicing [place]. She will reach out to another company to try to meet pt needs and respond in [facility]. Referral sent in [facility].
--- NOTE | 2022-06-16 10:18 | DS.PCM_ITS ---
Providers Date of Admission: 06/10/22 Primary Care Physician: Gonsalo Shannon Consultations 06/10/22 20:09 Consult: Orthopedics Routine Consulting Provider: Leonard Weiner Reason for Consult: left femoral fracture due to mechanical fall EMERGENT Consult: No MD Notified: Yes Date Notified: 06/10/22 Time Notified: 18:50 Method of Notification: Text Reason For Visit: LEFT FEMORAL NECK FRACTURE, HYPOKALEMIA Diagnosis Discharge Diagnosis (1) Fall: Status: Acute Code(s): W19.XXXA - Unspecified fall, initial encounter (2) Left displaced femoral neck fracture: Status: Acute Code(s): S72.002A - Fracture of unspecified part of neck of left femur, initial encounter for closed fracture (3) Hypokalemia: Status: Acute Code(s): E87.6 - Hypokalemia Plan 1. Acute left intertrochanteric femoral fracture due to mechanical fall status postrepair on 06/11/2022/acute anemia on mixed chronic iron deficiency anemia and anemia of chronic disease ? Continue with pain management ? PT/OT for possible placement to TCU ? She did have 2 units of blood prior to surgery however she is continued to be slightly anemic and yesterday was 6.3 and had to be transfused another 2 units ? Attempting a stool sample to check for blood she states that she is have a colonoscopy in the next week or so in [place] ?Her serum iron is low and her TIBC was normal with an iron saturation of 6.7% and a ferritin of 16 she was given a dose of IV iron on the can repeat a dose tomorrow 2. Chronic alcohol use/bipolar disorder ? She states that she does binge drink and she had drank about a week prior about half a gallon of alcohol ? Currently not going through withdrawal and serum alcohol level on admission was normal ? She does not take any medications for her bipolar disorder as an outpatient 3. Hypothyroidism ? Stable ? Her TSH is 4.12 and she states that she was taken off of Synthroid by her PCP DVT: Eliquis 2.5 mg p.o. twice daily Medications at Discharge Home Medications pantoprazole 40 mg tablet,delayed release 20 mg PO BID GERD 04/08/19 ferrous sulfate 325 mg (65 mg iron) tablet (FeroSul) 325 mg PO BID Check with primary doctor 06/11/22 apixaban 5 mg tablet (Eliquis) 2.5 mg PO BID #60 tabs 06/16/22 ascorbic acid (vitamin C) 500 mg tablet (Vitamin C) 500 mg PO BID #60 tabs 06/16/22 Hospital Course Operations - (Left hip cephalomedullary nail) Procedures None Summary of Care Provided Minutes Spent on Discharge: 42 Hospital Course: Per HPI: ROZINA HUERTAS, is a 61 F with a PMH as outlined who presents via the ED on 06/10/2021 with a complaint of mechanical fall and left hip pain. SHe denied any dizziness, lightheadedness, palpitations, cough, chest pain, nausea, vomiting or diarrhea. Review of systems is otherwise negative. Vitals were BP of 174/79, NE of 85, RR of 18 and temp of 100% on room air. CBC showedHb of 7.8, wbc of 13.6 and platelets of 270. Chemistry showed sodium of 132, potassium of 2.3 and Cr of 1.34. Glucose was 146. Imaging showed acute intertrochanteric fracutre of the proximal left femur. She is being admitted to be managed for? hypokalemia and acute left intertrochanteric hip fracture due to mechanical fall. Hospital Course: 1.? Acute left intertrochanteric femoral fracture due to mechanical fall status postrepair on 06/11/2022/acute anemia on mixed chronic iron deficiency anemia and anemia of chronic disease ? Continue with pain management ? She was denied both rehab and SNF placement ? She did have 2 units of blood prior to surgery however she is continued to be slightly anemic and yesterday was 6.3 and had to be transfused another 2 units ? She did have a stool sample that was negative for blood and today her hemoglobin went up to 9.1 showing stability. She does have a colonoscopy scheduled for this week as an outpatient. In review of her medications she is on iron twice a day but she is also on Protonix so I did add vitamin C to her medications to help assist in absorption. She did have a second stool sample done since surgery and that showed some blood in it but given the stability of her hemoglobin I discussed with her that she would likely be able to follow-up with her outpatient colonoscopy as scheduled. It is possible because of her issues with constipation after surgery while on the pain meds at the second sample with blood in it could be incidental. I discussed with her the plan for discharge today and she expressed understanding of the risk and benefits of going home and is okay with going home today. I discussed with her the reasons to come back to the hospital and she expressed understanding. She has been on Eliquis 2.5 mg p.o. twice daily which she will need to continue for another month, her hemoglobin has been stable while on the anticoagulation. 2.? Chronic alcohol use/bipolar disorder ? She states that she does binge drink and she had drank about a week prior about half a gallon of alcohol ? Currently not going through withdrawal and serum alcohol level on admission was normal ? She does not take any medications for her bipolar disorder as an outpatient 3.? Hypothyroidism ? Stable ? Her TSH is 4.12 and she states that she was taken off of Synthroid by her PCP Physical Exam Narrative General: Alert, Oriented x3, Cooperative, No apparent distress HEENT: Atraumatic, PERRLA, EOMI, Normocephalic Oral: Moist Mucosa Neck: Supple, No JVD Lungs: Diminished, Normal air movement, No rhonchi, No wheeze, No rales Cardiovascular: Regular rate, Regular Rhythm, Normal S1, Normal S2, No murmurs Abdomen: Soft, Non Tender, Non-Distended, No Hepato-splenomegaly Extremities: No edema, Capillary Refill Less than 3 Seconds Skin: No rashes, No breakdown Musculoskeletal: Left hip pain to palpation, dressing intact Neurological: Cranial nerves II-XII grossly intact, Motor Exam 5/5 strength throughout, Sensory exam intact to light touch and pain Psych/Mental Status: Normal Affect, Appropriate Weight / BMI Weight Weight: 178 lb Body Mass Index (BMI) 24.1 ABG / Lab / Microbiology Data Result Diagrams: 06/16/22 06:25 06/15/22 06:50 Laboratory: Laboratory Results - last 24 hr 06/15/22 13:37: Hgb 8.8 L, Hct 27.5 L 06/16/22 06:25: WBC 6.3, RBC 3.21 L, Hgb 9.1 L, Hct 29.9 L, MCV 93.1, MCH 28.3, MCHC 30.4 L D, RDW Std Deviation 66.3 H, RDW Coeff of Angelo 19.4 H, Plt Count 308, MPV 9.0, Immature Gran % (Auto) 1.300 H, Neut % (Auto) 54.9, Lymph % (Auto) 27.8, [place] % (Auto) 14.0 H, Eos % (Auto) 1.7, Baso % (Auto) 0.3, Absolute Neuts (auto) 3.5, Absolute Lymphs (auto) 1.75, Nucleated RBC % 0, Differential Comment SCANNED, Hypochromasia 1+, Anisocytosis 1+ Microbiology: Microbiology 06/15/22 17:10 Stool Stool Occult Blood (NOAH) - Final Occult Blood Positive 06/14/22 18:40 Stool Stool Occult Blood (NOAH) - Final D/C Instructions Discharge Diet: No restrictions Call your doctor if you observe: Fever of 101 or Higher, Shortness of breath, Dizziness, Fainting spells, Swelling in the ankles, Chest pain and Increased palpitations (irregular heartbeat) Meaningful Use Info Meaningful Use Diagnoses (Choose all that apply): None applicable Discharge Plan Admission Admit Date/Time: 06/10/22 18:48 Attending Provider: Tyrone Roach Primary Care Provider: Gonsalo Shannon Consulting Providers: Leonard Weiner ; Renetta Recinos ; Jerry Lopez Instructions Additional Instructions / Restrictions: Follow-up with your PCP to obtain a CBC to monitor your hemoglobin as an outpatient. Discharge Orders/Prescriptions Prescriptions: New Eliquis 5 mg Tablet 2.5 mg PO BID Qty: 60 0RF ascorbic acid (vitamin C) [Vitamin C] 500 mg tablet 500 mg PO BID Qty: 60 0RF Rx Instructions: Take with iron Continued pantoprazole 40 MG tablet 20 mg PO BID ferrous sulfate [FeroSul] 325 mg (65 mg iron) tablet 325 mg PO BID Label Comments: take 1 tablet by mouth twice a day with meals Referrals / Follow Up: Leonard Weiner MD [Med Staff - Active Staff] - Within 2 Weeks Gonsalo Shannon [Primary Care Provider] - Within 1 Week Disposition Disposition (needs filled in before D/C Order can be placed): Home Health Service Charges/Coding Visit Charges Inpatient E&M: 25958 Disch Hosp >30min
--- NOTE | 2022-06-16 12:17 | NURSING ---
Patient cursing at staff about being discharged today. Wants to stay here with a purewick in place and not get out of bed. Explained she needs to walk with her walker to the bathroom patient upset cursing about a walker at home.
[2022-06-16 12:24] VITALS: BP 141/78; PULSE 81; RESP 18; TEMP 36.7; O2SAT 100
--- NOTE | 2022-06-16 12:25 | PHA.DC.MC ---
Pharmacy Service has performed discharge medication reconciliation and counseling for this patient. 1. APIXABAN 2.5MG PO BID 2. ASCORBIC ACID 500MG PO BID The patient's discharge medication list was reviewed for discrepancies and discrepancies were resolved. Home Medications pantoprazole 40 mg tablet,delayed release 20 mg PO BID GERD 04/08/19 ferrous sulfate 325 mg (65 mg iron) tablet (FeroSul) 325 mg PO BID Check with primary doctor 06/11/22 apixaban 5 mg tablet (Eliquis) 2.5 mg PO BID #60 tabs 06/16/22 ascorbic acid (vitamin C) 500 mg tablet (Vitamin C) 500 mg PO BID #60 tabs 06/16/22 The patient was counseled on the following discharge medications and changes in medications for homegoing were reviewed. The Reason for Use, instructions for use, and potential side effects were reviewed for all new medications. The patient's questions regarding all of their medications were answered. The patient was able to verbally demonstrate an understanding of their discharge medications.
[2022-06-16] MEDS: oxyCODONE 5 MG Tablet PO (16:51)
[2022-06-16 18:03] VITALS: BP 128/68; PULSE 84; RESP 18; TEMP 36.8; O2SAT 98
[2022-06-16 21:41] VITALS: BP 120/58; PULSE 88; RESP 18; TEMP 36.9; O2SAT 99
[2022-06-17 04:42] VITALS: BP 137/76; PULSE 80; RESP 18; TEMP 36.9; O2SAT 100
--- NOTE | 2022-06-17 09:51 | NURSING ---
899 patient was reminded that [facility] has her scripts. She told this RN that [facility] was out of the Elequis. This RN offered to call [facility] and have the script transferred to the retail rx at the hospital but she declined. I also offered to have the script sent somewhere else and she declined this as well. She states [facility] will deliver it Sunday. A taxi was called for patient and she was assisted in getting dressed and escorted to main entrance. 944 This RN called [facility] to confirm that they were out of Elequis and the [facility] staff member states they did not have enough to fill the whole script so she would have to get it on Sunday. I asked if they were able to fill part of the script so the patient could get this medication and the [facility] staff member states they can do this and that they will alert the patient that the script is ready.
== END 2022-06-17 09:20 | disposition home health service (06) | DRG 481 ==
LOC: ED 18:48 → MS3 19:31
PROVIDERS: Family Medicine; Internal Medicine; Specialist; Admitting Provider Student in an Organized Health Care Education/Training Program; Emergency Provider Emergency Medicine; Visit Provider Family Medicine
PROC: 0QS736Z Reposition Left Upper Femur with Intramedullary Internal Fixation Device, Percutaneous Approach (ICD-10-PCS; principal; 2022-06-11 10:00)
DX: S72.142A Displaced intertrochanteric fracture of left femur, initial encounter for closed fracture (principal); E87.1 Hypo-osmolality and hyponatremia; D63.8 Anemia in other chronic diseases classified elsewhere; F31.9 Bipolar disorder, unspecified; D50.9 Iron deficiency anemia, unspecified; E03.9 Hypothyroidism, unspecified; E87.6 Hypokalemia; E86.0 Dehydration; W19.XXXA Unspecified fall, initial encounter; R94.31 Abnormal electrocardiogram [ECG] [EKG]; R73.9 Hyperglycemia, unspecified; Z87.891 Personal history of nicotine dependence; Z79.890 Hormone replacement therapy; Z79.899 Other long term (current) drug therapy; Z96.641 Presence of right artificial hip joint
CPT/HCPCS: 36415; 51702; 72170; 73502; 73552; 76000; 80048; 82077; 82274; 82436; 82570; 82728; 82977; 83036; 83540; 83550; 83735; 84100; 84133; 84300; 84439; 84443; 84484; 85014; 85018; 85025; 85027; 85610; 85730; 86850; 86900; 86901; 86920; 86922; 93005; 94668; 97110; 97116; 97162; 97166; 97530; 97535; 99252; 99285; C1713; C1776; J7030; J7040; J7050; P9016; A4216; G0463; J2405; J2916

== ENCOUNTER 2022-06-20 09:45 | Emergency (ER) | payer MEDICARE, MEDICAID, SELFPAY ==
[2022-06-20 09:45] VITALS: BP 113/76; PULSE 87; RESP 14; TEMP 36.2; O2SAT 100; BMI 25.6
--- NOTE | 2022-06-20 11:04 | ED.RN ---
PT LWBS 1108
--- NOTE | 2022-06-20 11:37 | CM.ED ---
Social Work Note NELI was contacted by Lily with [facility] to inform SW of concerns regarding patient. Lily explained patient was seen by PT at home today and they were concerned about her living conditions as it appears patient hasn't been off the couch since discharge from [facility] and is just changing her depends and tossing them in a pile. Lily explained the patient wasn't opened as a client yet as she was previously refusing services. Lily stated EMS was also concerned about patient's living conditions and was reviewing their concerns with the rag room supervisor. Lily also explained patient was drinking alcohol in place of taking her blood thinners as she didn't have access to her prescription. SW to follow up. Patient left without being seen. SW met with patient while she was outside waiting on her ride. NELI introduced herself and role as [facility] Industrial Hygiene Engineer. SW inquired about patient's motivation to leave; patient states her leg was hurting and didn't want to wait anymore to be seen. SW attempted to provide patient with emotional support and encouragement to stay so a medical professional could review her leg. Patient reports not being interested in waiting and her ride being a couple minutes away. SW inquired about patient's needs at home as such additional support or other living arrangements. Patient states she left a voicemail with [facility] explaining she was returning home and declined other resources. NELI contacted Lily with [facility] to inform her patient left without being seen. Lily explained she was concerned due to patient not getting medical attention for her leg. Lily also explained she would have to review patient with [facility] doctor to determine if they can continue to provide patient with services if patient's leg wasn't checked out first to ensure patient can safely participate in home health care services. NELI explained she would be contacting Levi with [facility] to discuss concerns. NELI contacted Levi with [facility] to report concerns regarding patient. NELI provided patient with demographic information and concerns regarding patient's living condition, alcohol use and leaving without being seen. NELI also explained [facility] would be reviewing patient to determine if they can work with her as today was her first appointment and they needed patient's leg to be checked before they could continue services. Levi states she would attempt to meet with patient and encourage her to return to [facility] to be seen. NELI contacted Lily to inform her Levi will be following up with patient to encourage her to return to the ED. Lily stated she briefly talked with patient and patient claimed she was told by ED staff should would be waiting two hours before she would be seen which is what motivated patient to leave. Lily states she will be following up with the patient later today once patient is home as well as reviewing patient's case with [facility] Doctor to determine if they will be able to provide patient with services. Ana Kirk MSW, MEGHA
== END 2022-06-20 11:03 | disposition left against medical advice (07) ==
LOC: ED 11:05
DX: Z53.21 Procedure and treatment not carried out due to patient leaving prior to being seen by health care provider (principal)

== ENCOUNTER 2022-08-31 14:30 | Outpatient (RCR) | payer MEDICARE, MEDICAID, SELFPAY ==
--- NOTE | 2022-07-14 10:57 | HP.PTEVAL ---
Patient's Visit Information ROZINA HUERTAS is a 61 year old F referred to Physical Therapy by Dr. Leonard Weiner MD with a diagnosis of intertrochanteri fx femur with surgery, rods 06/10. Date of Evaluation: 07/14/22 Physical Therapist: Jesus Varghese, GEMAT, OCS, CSCS - Visit Plan Frequency: 2x /Week Duration: 4-6 Weeks Plan: 2x/week for 4-6 weeks for. 1. hip and core strength and progress to HEp as safety allows. 2. Work on ambulation without AD and balance dynamicall - Subjective L broken hip and femur. Blood pressure kept dropping. She passed out and fell and broke hip june 10. Jaylen placed adn screws. Has broken R hip in past multiple times some of them with falls. Has OP. RICARDO on R years ago. Has been home since surgery. Healing. Doing some SLR at home and glut sets and qs. Using wh walker to get around. Used it prior to this fall but could walk without it. needs it now.Pain is in L hip with movement. Sleep is not great but never has been. Lives alone in apartment, no steps. basic ADLs:OK except cannot climb into tub. Not employed: disability from knees. Does nothing: spends day watching TV. house duties. Driving adn suv, can't get out of car and hard time getting off low couch at home where she spends her time. - Pain L hip Pain Intensity (Out of 10): 0 Pain Intensity Range: 0, 8 Comment: comfortable at rest. - Objective R leg shorter.L is fractured side. Walks I with wh walker back to therapy, looking down and slow. Transfers from tall chair with UE I using arms, low chair is tough and takes extra time. bed transfers are I. Walk without AD 2 steps only, poor confidence, painful although no more than with wh walker, hesitant to bear weight through L , short stance time. romberg eo and ec 30 , lts of wobble ec.. reflexes 0/3 patella and achilles. Sensation LE to gross light touch WNL. Strength in hips abd and ext 3+, flexion 4- B, knee ext and flexion 4-, ankle strength 4/5. coordination to reciprocal toe tap is fair. ROM knees to 100 and ankles WFL, hip abd 10 degrees B, flexion to 90 B, extension to neutral, er L 25 and R 45, IR 0 and 5 R. - Balance/Special Test Scores Lower Extremity Functional Score: 19 TUG Test Time Seconds: 25 - Goals Goal 1:: Walk without AD 20 feet I without hesitation or pain Goal Time Frame: 4-6 Weeks Goal 2:: TUG of 15 or better Goal Time Frame: 4-6 Weeks Goal 3:: Exit low chair with UE eaasily and without increased time. Goal Time Frame: 4-6 Weeks Goal 4:: LEFS 45 Goal Time Frame: 4-6 Weeks Goal 5:: patient feel back to baseline mobility pre surgery Goal Time Frame: 4-6 Weeks Goal 6:: tolerate FGA Goal Time Frame: 4-6 Weeks - Rehabilitation Potential Physical Therapy Diagnosis: weak and diminished funciton with ambulation since hip fracture. Rehabilitation Potential: Fair - Anticipated Interventions Patient/Client Instruction: Educate patient on: Condition, Risk Factors For the Purpose of:: To increase ROM, To improve nutrient delivery to tissue, To improve muscle performance and motor function, To increase tolerance to activity/condition/position, To improve balance, To improve safety with gait Therapeutic Exercise to Include: Strength training, Balance training, Flexibilty training, Gait and locomotor training, Passive ROM, Active ROM For the Purpose of:: To decrease pain, To increase ROM, To improve nutrient delivery to tissue, To improve muscle performance and motor function, To increase tolerance to activity/condition/position, To improve ability of physical actions for home/community/work/leisure, To improve gait and locomotor functions Thank you for the opportunity to evaluate your patient. For Medicare and Medicare HMO plans, please review the plan of care and approve it. It will need to be FAXED BACK to us at [phone] for Medicare purposes. For Medicare only, by signing this I certify the plan of care. Please let me know if there are questions or concerns regarding this plan of care. Physician Signature: Date:
--- NOTE | 2022-08-10 13:41 | HP.PTREVAL_ITS ---
Dr. Leonard Weiner MD, It has been my pleasure to treat ROZINA HUERTAS over the last 4 visits for intertrochanteric fx femur with surgery, rods 06/10. Please see the progress note below for an update on the physical therapy plan of care! Subjective: Has appointment with Regine today. Has been sick and hard time getting into therapy. Haven't gotten too far. Can take a few steps without rollator. Thinks she can be more consistent with therapy now. Objective/Function: Poor confidence in FW weight shift. Avoids weight shift f orward exitting chair due to fear, with VC can get up from medium low chair with just cue assist. Pushes with both LE. Walking short steps without aD to take FGA today for 40-50 feet. Safer and should still use wh walker to this point. Gait is hesitant but improving and safer. 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 goals still appropriate and fair prognosis Plan Plan: 2x/week for 4-6 weeks for. 1. Hip and core strength and progress to HEP a s safety allows. 2. Work on ambulation without AD and balance dynamically. Balance/Gait/Functional tests - Balance/Special Test Scores Functional Gait Assessment Score: 14 % Disability: 53.3400 Lower Extremity Functional Score: 23 TUG Test Time Seconds: 25 Tug Test: <20 sec.=mostly independent Goals Goal 1:: Walk without AD 20 feet I without hesitation or pain Goal Time Frame: 4-6 Weeks Goal Progress: can but hesitant Goal 2:: TUG of 15 or better Goal Time Frame: 4-6 Weeks Goal Progress: Progressing Goal 3:: Exit low chair with UE eaasily and without increased time. Goal Time Frame: 4-6 Weeks Goal 4:: LEFS 45 Goal Time Frame: 4-6 Weeks Goal 5:: patient feel back to baseline mobility pre surgery Goal Time Frame: 4-6 Weeks Goal 6:: tolerate FGA Goal Time Frame: 4-6 Weeks Goal Progress: Goal Met Anticipated Interventions Patient/Client Instruction: Educate patient on: Condition, Risk Factors For the Purpose of:: To increase ROM, To improve nutrient delivery to tissue, To improve muscle performance and motor function, To increase tolerance to activity/condition/position, To improve balance, To improve safety with gait Therapeutic Exercise to Include: Strength training, Balance training, Flexibilty training, Gait and locomotor training, Passive ROM, Active ROM For the Purpose of:: To decrease pain, To increase ROM, To improve nutrient delivery to tissue, To improve muscle performance and motor function, To increase tolerance to activity/condition/position, To improve ability of physical actions for home/community/work/leisure, To improve gait and locomotor functions Please do not hesitate to contact me at [phone] by phone or if you have questions or concerns regarding this new plan of care! Sincerely, Jesus Varghese, DPT, OCS, CSCS
--- NOTE | 2022-10-19 17:44 | HP.PT.NRP ---
ROZINA HUERTAS was seen in my office for initial evaluation on 07/14/22. The following Plan of Care was established for this patient: Initial Frequency: 2x /Week Initial Duration: 4-6 Weeks Patient/Client Instruction: Educate patient on: Condition, Risk Factors For the Purpose of:: To increase ROM, To improve nutrient delivery to tissue, To improve muscle performance and motor function, To increase tolerance to activity/condition/position, To improve balance, To improve safety with gait Therapeutic Exercise to Include: Strength training, Balance training, Flexibilty training, Gait and locomotor training, Passive ROM, Active ROM For the Purpose of:: To decrease pain, To increase ROM, To improve nutrient delivery to tissue, To improve muscle performance and motor function, To increase tolerance to activity/condition/position, To improve ability of physical actions for home/community/work/leisure, To improve gait and locomotor functions This patient was last seen in our office 08/31/22. Pertinent comments regarding their Physical therapy will appear below: Pt seen 8 visits of POC but had a hard time attending during her full POC. She no showed for her last two visits. At this point, as it has been over 6 weeks , I will discontinue her from my care. At this point I will be discontinuing this patient from physical therapy. I would be happy to see this patient again in the future if found appropriate by the physician. Thank you! Jessu Varghese, DPT, OCS, CSCS Balance/Gait/Functional tests - Balance/Special Test Scores Functional Gait Assessment Score: 14 % Disability: 53.3400 Lower Extremity Functional Score: 23 TUG Test Time Seconds: 25 Tug Test: <20 sec.=mostly independent
== END 2022-08-31 19:00 | disposition home or self-care (01) ==
LOC: PT 14:30
PROVIDERS: Referring Provider Specialist; Visit Provider Specialist
DX: S72.142D Displaced intertrochanteric fracture of left femur, subsequent encounter for closed fracture with routine healing (principal)
CPT/HCPCS: 97110; 97162

== ENCOUNTER 2022-11-15 13:23 | Emergency (ER) | payer MEDICARE, MEDICAID, SELFPAY ==
[2022-11-15 13:25] VITALS: BP 141/110; PULSE 124; RESP 18; TEMP 35.7; O2SAT 94
[2022-11-15 13:55] VITALS: O2SAT 95
[2022-11-15 13:58] VITALS: BMI 24.7
--- NOTE | 2022-11-15 14:25 | RAD_ITS ---
STUDY: X-RAY - UNILATERAL RIBS ( LEFT ) WITH CHEST REASON FOR EXAM: Female, 62 years old. Injury TECHNIQUE - RIBS: 4 view(s) of the ribs. TECHNIQUE - CHEST: Single PA view of the chest. COMPARISON: None. FINDINGS - RIBS: Normal visualized ribs without a demonstrated fracture. FINDINGS - CHEST: Hyperinflation. The lungs are clear. There is no demonstrated pleural abnormality. Normal size heart. Calcified left hilar lymph nodes. Normal visualized pulmonary arteries. Normal visualized aortic arch and descending thoracic aorta. Normal visualized thoracic spine. There is degenerative osteoarthritis of the bilateral shoulders. There is no demonstrated abnormality of the visualized soft tissue structures of the upper abdomen. RAD/Ribs Uni Min 3V w/PA Chest IMPRESSION: RIBS: Normal x-ray examination of the ribs. CHEST: Hyperinflation. No acute abnormality is seen. Electronically Signed: Casey Posada MD at 15:00 EDT ,
--- NOTE | 2022-11-15 16:58 | ED.VIS.FALL ---
HPI HPI - Fall History of Present Illness Chief Complaint: Fall Informant: patient Occured/Mechanism Occurred: Yesterday Fall from Height (ft): 2 Pain/Injury Location: Left ribs Pain Location: chest Quality of Pain: Sharp Worsened by: Breathing Relieved by: Nothing Associated Symptoms Associated Symptoms: Negative for Parasthesias, Weakness, Loss of function, Inability to ambulate, Loss of consciousness or Amnesia Narrative Narrative: Patient presents with a left rib pain that began after a fall last night. Patient states she fell off of a couch that was approximately 2 feet high. Patient states she landed on her left side. Patient states she has pain in her left chest and rib area. Patient describes her pain as sharp. Patient states it is worse with breathing. Patient states nothing seems to help with it. Patient denies any head injury or loss of consciousness. Patient denies any paresthesias or weakness. Patient denies any other injuries. [facility] Medical History Alcohol abuse Anemia Bipolar disorder Former smoker GERD (gastroesophageal reflux disease) GI bleed Hypothyroidism Injury of head and neck Kidney stones Osteoporosis Restless legs Ulcer Home Medications pantoprazole 40 mg tablet,delayed release 20 mg PO BID GERD 04/08/19 [History Last Taken Unknown] ferrous sulfate 325 mg (65 mg iron) tablet (FeroSul) 325 mg PO BID Check with primary doctor 06/11/22 [History Last Taken Unknown] apixaban 5 mg tablet (Eliquis) 2.5 mg (1/2 x 5 mg) PO BID #60 tabs 06/16/22 [Rx Last Taken Unknown] ascorbic acid (vitamin C) 500 mg tablet (Vitamin C) 500 mg PO BID #60 tabs 06/16/22 [Rx Last Taken Unknown] Allergy/AdvReac Type Severity Reaction Status Date / Time No Known Allergies Allergy Verified 11/15/22 13:30 Surgical History H/O total hysterectomy History of right hip replacement Social History Smoking Status: Former smoker ROS ROS ED Constitutional Constitutional ED: Denies chills or fever(s) Eyes Eyes: Denies blurry vision or change in vision ENT ENT ED: Denies rhinorrhea or sore throat Cardiovascular Cardiovascular: Reports chest pain; Denies palpitations Respiratory/Chest Respiratory/Chest: Denies cough or dyspnea Gastrointestinal Gastrointestinal: Reports nausea and vomiting Genitourinary Genitourinary ED: Denies dysuria or hematuria Musculoskeletal Musculoskeletal: Denies back pain or neck pain Integumentary Denies abscess or rash Neurologic Neurologic: Denies headache(s) or weakness Allergic/Immunologic Allergic/Immunologic ED: Denies mouth swelling or urticaria EXAM Physical Exam Const Vital Signs: 11/15/22 13:25 11/15/22 13:55 Temperature 96.3 F L Temperature Source Temporal Pulse Rate 124 H Respiratory Rate 18 Respiratory Effort Normal Non-Labored Respiratory Depth Normal Respiratory Pattern Normal Blood Pressure 141/110 H Blood Pressure Mean 120 Pulse Ox 94 95 Oxygen Delivery Method Room Air Room Air Positive well nourished and well developed General Appearance ED: well developed and NAD HEENT Reports normocephalic atraumatic Neck full ROM and supple Chest Wall Chest Narrative: There is tenderness over the left lateral ribs. There is no bony crepitance or step-off. There is no subcutaneous emphysema noted. Resp normal respiratory effort and clear to auscultation bilaterally Cardio regular rate and regular rhythm GI non-tender and non-distended Palpation: soft Neuro oriented x3, CN's II-XII intact bilaterally, moves all extremities, no focal motor deficits and no sensory deficits noted [place] Coma Scale: document GCS findings Spontaneous Obeys Commands Oriented 15 Sensorium / Orientation: alert Motor Exam: strength 5/5 throughout Psych mental status grossly normal MDM MDM MDM Narrative Medical decision making narrative: Differential diagnosis includes rib fracture, pneumothorax, and chest wall contusion. X-rays of the left ribs will be obtained to assess for rib fracture and pneumothorax. Radiography Diagnostic Testing: Clinical Impression(s) from Imaging Studies Ribs w/Chest X-Ray 11/15/22 14:25 IMPRESSION: RIBS: Normal x-ray examination of the ribs. CHEST: Hyperinflation. No acute abnormality is seen. Electronically Signed: Casey Posada MD at 15:00 EDT , X-rays of the left ribs were obtained. There are 5 views. On my independent interpretation, there is no acute fracture. There is no pneumothorax noted. There is no acute cardiopulmonary process. Radiologist also interpreted the x-rays and agrees. Treatment and Re-Evaluation Narrative: Patient was advised of her findings. Patient was instructed use ice to the area. Patient was instructed to take Tylenol or ibuprofen as needed for pain. Patient was instructed to take 10-15 deep breaths every hour while awake to prevent atelectasis and pneumonia. Patient understood and was agreeable with the plan. All questions were answered. Discharge Plan Triage Chief Complaint: Fall ED Provider: Jesus Flynn Dx/Rx/DC Orders Clinical Impression: Chest wall contusion, Fall Instructions: ED Chest Wall Contusion Prescriptions: No Action pantoprazole 40 MG tablet 20 mg PO BID ferrous sulfate [FeroSul] 325 mg (65 mg iron) tablet 325 mg PO BID Patient Comments: take 1 tablet by mouth twice a day with meals Eliquis 5 mg Tablet 2.5 mg PO BID Qty: 60 0RF ascorbic acid (vitamin C) [Vitamin C] 500 mg tablet 500 mg PO BID Qty: 60 0RF Rx Instructions: Take with iron Primary Care Provider: Gonsalo Shannon Referrals: Gonsalo Shannon MD [Primary Care Provider] - 5-7 Days Disposition Disposition: Home, Self Care
[2022-11-15 17:04] VITALS: BP 149/99; PULSE 75; RESP 18; O2SAT 96
--- NOTE | 2022-11-15 17:54 | CM.ED ---
Social Work Note NELI was informed by ED admin staff the patient was waiting for a ride as she has been unable to contact local taxis. SW met with patient in waiting area and introduced herself and role as [facility] SW. Patient was agreeable to speak with NELI and reports she has been unsuccessful with contacting taxis for a ride home. NELI reviewed [employer] and assisted the patient in contacting their office. Patient was able to arrange transportation with this company and is going outside per the taxi's request to wait for her ride. NELI updated care team a taxi was obtained. Ana Kirk MSW, MEGHA
== END 2022-11-15 17:20 | disposition home or self-care (01) ==
PROVIDERS: Emergency Provider Emergency Medicine; PCP Family Medicine; Visit Provider Emergency Medicine
DX: S20.20XA Contusion of thorax, unspecified, initial encounter (principal); Z87.891 Personal history of nicotine dependence; W08.XXXA Fall from other furniture, initial encounter
CPT/HCPCS: 71101; 99284

== ENCOUNTER 2022-11-24 20:23 | Emergency (ER) | payer MEDICARE, MEDICAID, SELFPAY ==
[2022-11-24 20:25] VITALS: BP 128/81; PULSE 92; RESP 16; TEMP 36.9; O2SAT 94
[2022-11-24 20:44] VITALS: BMI 24.4
--- NOTE | 2022-11-24 20:57 | EDS_ITS ---
HPI History of Present Illness Chief Complaint: General Illness Informant: patient Narrative Narrative: Patient states that she went to sit on her couch and she missed the edge. She just got a new couch that is 27 inches high. This is because if she sits on a low chair she has trouble getting up. But she was not used to the high couch and she hit the edge of the cushion and slid down. She states she did not hurt herself. She has soreness in her left rib but that is from her prior injury and it is getting better. She states he otherwise feels fine. She is not having chest pain trouble breathing fevers chills. She has urinary incontinence all the time but no dysuria. I do find out that she has been on the ground for several days to up to a week. Patient states she feels fine. She is comfortable at home. She has all the handicap accessories that she needs. She just said that she cannot get up if she goes down to the ground. She does live alone. [facility] Medical History Alcohol abuse Anemia Bipolar disorder Former smoker GERD (gastroesophageal reflux disease) GI bleed Hypothyroidism Injury of head and neck Kidney stones Osteoporosis Restless legs Ulcer Home Medications pantoprazole 40 mg tablet,delayed release 20 mg PO BID GERD 04/08/19 [History L ast Taken Unknown] ferrous sulfate 325 mg (65 mg iron) tablet (FeroSul) 325 mg PO BID Check with primary doctor 06/11/22 [History Last Taken Unknown] apixaban 5 mg tablet (Eliquis) 2.5 mg (1/2 x 5 mg) PO BID #60 tabs 06/16/22 [Rx Last Taken Unknown] ascorbic acid (vitamin C) 500 mg tablet (Vitamin C) 500 mg PO BID #60 tabs 06/16/22 [Rx Last Taken Unknown] cephalexin 500 mg capsule 500 mg PO Q8H #21 caps 11/24/22 [Rx Last Taken Unknown] Allergy/AdvReac Type Severity Reaction Status Date / Time No Known Allergies Allergy Verified 11/15/22 13:30 Surgical History H/O total hysterectomy History of right hip replacement Social History Smoking Status: Former smoker ROS ROS ED Constitutional Constitutional ED: Denies chills, fever(s) or subjective Eyes Eyes: Denies change in vision ENT ENT ED: Denies rhinorrhea Cardiovascular Cardiovascular: Denies palpitations or racing heartbeat Respiratory/Chest Respiratory/Chest: Denies cough or dyspnea Gastrointestinal Gastrointestinal: Denies abdominal pain, diarrhea, melena, nausea or vomiting Genitourinary Genitourinary ED: Reports urinary frequency; Denies dysuria Musculoskeletal Musculoskeletal: Denies back pain Integumentary Denies rash Neurologic Neurologic: Denies headache(s) Hematologic/Lymphatic Hematologic/Lymphatic: Denies lymphadenopathy Allergic/Immunologic Allergic/Immunologic ED: Denies urticaria EXAM Physical Exam Narrative Exam Narrative: Patient is awake and alert. She is very dirty as she has not been able to get up and care for herself. HEENT shows no trauma. Mucous membranes are minimally dry. Neck is supple there is no tenderness. Lungs are clear bilaterally. No definitive sign of bruising is noted including on the back. No subcu air. Saturations are normal at 94% on room air showing no hypoxia Heart is regular. Rate of about 85 or 90. Abdomen is soft and nontender. Extremities show no edema. She has well-healed scars mostly along the right femur and knee area. No deformities. Skin head a fair amount of dirt urine but is now cleaned up. No obvious contusions or abrasions. There is a little bit of redness/stage I decub around the gluteal fold area. Const Vital Signs: 11/24/22 20:25 11/24/22 20:44 11/24/22 22:24 Temperature 98.5 F Temperature Source Oral Pulse Rate 92 Respiratory Rate 16 18 Respiratory Pattern Normal Blood Pressure 128/81 H Blood Pressure Mean 96 Pulse Ox 94 Oxygen Delivery Method Room Air Room Air MDM MDM MDM Narrative Medical decision making narrative: We did discuss that patient was on the ground and we would like to do some work- up to make sure she does not have an acute kidney injury or other issue. Patient CBC shows minimally low white count which is nonspecific. Her electrolytes show no marked abnormalities. Kidney function was preserved. Her so total CPK was only 38. We were waiting for her urine. I got this back. It shows that the urine is cloudy with leukocyte esterase but negative nitrites. There are 25-50 white cells 3+ bacteria. We will try to send this for culture. I have been told the patient wanted to go. I went back to try to talk to the patient about the urine. She evidently called a cab and then walked out and left. We we will try to contact her about the urine. I will send a prescription for antibiotics to a pharmacy of record if it is on her chart. Lab Data Attestation: I reviewed the patient's lab results. Labs: Laboratory Results - last 24 hr 11/24/22 11/24/22 21:14 22:50 WBC 4.2 L RBC 4.20 Hgb 13.9 Hct 41.0 MCV 97.6 MCH 33.1 H MCHC 33.9 RDW Std Deviation 51.8 H RDW Coeff of Angelo 14.4 Plt Count 251 MPV 8.3 Immature Gran % (Auto) 0.500 Neut % (Auto) 38.6 L Lymph % (Auto) 51.8 H [place] % (Auto) 7.4 Eos % (Auto) 1.7 Baso % (Auto) 0.0 Absolute Neuts (auto) 1.6 L Absolute Lymphs (auto) 2.16 Nucleated RBC % 0 Sodium 144 Potassium 3.7 Chloride 108 H Carbon Dioxide 27.0 Anion Gap 9 BUN 12 Creatinine 0.84 Estim Creat Clear Calc 78.08 Est GFR (MDRD) Af Amer 88 Est GFR (MDRD) Non-Af 72 BUN/Creatinine Ratio 14.3 Glucose 104 Calcium 8.3 L Total Creatine Kinase 38 Urine Color Yellow Urine Clarity Cloudy Urine pH 6.5 Ur Specific [place] 1.015 Urine Protein 30 H Urine Glucose (UA) Normal Urine Ketones 5 H Urine Occult Blood 50 H Urine Nitrite Negative Urine Bilirubin Negative Urine Urobilinogen Normal Ur Leukocyte Esterase 500 H Urine RBC 0-5 SEEN Urine WBC 25-50 SEEN Ur Squamous Epith Cells 10-25 SEEN Urine Bacteria 3+ Urine Mucus 0 SEEN Discharge Plan Triage Chief Complaint: General Illness ED Provider: Serge Wilkes Dx/Rx/DC Orders Clinical Impression: UTI (urinary tract infection), Eloped from emergency department, Fall at home Prescriptions: New cephalexin 500 mg capsule 500 mg PO Q8H Qty: 21 0RF No Action pantoprazole 40 MG tablet 20 mg PO BID ferrous sulfate [FeroSul] 325 mg (65 mg iron) tablet 325 mg PO BID Patient Comments: take 1 tablet by mouth twice a day with meals Eliquis 5 mg Tablet 2.5 mg PO BID Qty: 60 0RF ascorbic acid (vitamin C) [Vitamin C] 500 mg tablet 500 mg PO BID Qty: 60 0RF Rx Instructions: Take with iron Primary Care Provider: Gonsalo Shannon Referrals: Gonsalo Shannon MD [Primary Care Provider] - Disposition Disposition: Elopement
[2022-11-24 21:21] LABS: Absolute Lymphocyte Count 2.16 X10^3/uL (0.83-4.51); Absolute Neutrophil Count 1.6 X10^3/uL (2.0-7.7); Eosinophil# 0.07 X10^3/uL; Eosinophils% 1.7 % (0-5); Hemoglobin 13.9 g/dL (12.0-15.0); Lymphocyte # 2.16 X10^3/ul (0.83-4.51); Lymphocyte % 51.8 % (19-41); Mean Corp Hgb Conc 33.9 g/dL (32-36); Mean Corpuscular Hgb 33.1 pg (27.0-32.0); Mean Corpuscular Volume 97.6 fL (81-99); Mean Platelet Vol. 8.3 fl (6.2-12.0); Monocyte# 0.31 X10^3/uL; Monocyte% 7.4 % (0-10); NRBC Flagged by Analyzer 0 % (0-5); Neutrophil # 1.61 X10^3/uL (2.7-7.7); Neutrophil % 38.6 % (47-70); Platelet Count 251 K/mm3 (150-450); RBC Distribution Width CV 14.4 % (11.6-14.6); RBC Distribution Width SD 51.8 fl (35.1-43.9); White Blood Count 4.2 K/mm3 (4.4-11.0)
[2022-11-24 22:03] LABS: Anion Gap 9 (5-15); BUN 12 mg/dL (7-18); BUN/Creat Ratio 14.3 RATIO (10-20); CPK Total, Creatine Kinase 38 U/L (26-192); Calcium,Total 8.3 mg/dL (8.5-10.1); Chloride 108 mmol/L (98-107); Creatinine, Serum 0.84 mg/dL (0.55-1.02); EST Glomerular Filtration Rate 72 mL/min (>60); Est Glom Filt Rate - Afr Amer 88 mL/min (>60); Estimated Creatinine Clearance 78.08 ml/min; Glucose 104 mg/dL (74-106); Potassium 3.7 mmol/L (3.5-5.1); Sodium Level 144 mmol/L (136-145)
[2022-11-24 22:24] VITALS: RESP 18
[2022-11-24] MEDS: 0.9% Normal Saline 1,000 ML 999 ML IV (22:53)
[2022-11-24 23:02] LABS: Mucous, Urine 0 SEEN /hpf (<or=2+)
[2022-11-24 23:10] LABS: Color, Urine Yellow (Yellow); Glucose, Dipstick Normal (Normal); Ketone-Dipstick 5 mg/dl (Negative); Leukocyte Esterase-Dipstick 500 /ul (Negative); Nitrite-Dipstick Negative (Negative); Occult Blood-Urine 50 /ul (Negative); Protein-Dipstick 30 mg/dl (Negative); Specific Gravity, Urine 1.015 (1.002-1.030); Urine Bilirubin Dipstick Negative (Negative); Urine Clarity Cloudy (Clear); Urine Urobilinogen Normal (Normal); Urine pH 6.5 (5.0 - 8.0)
--- NOTE | 2022-11-24 23:17 | ED.RN ---
Pt pulled own iv out, refusing any further treatment and insisting on leaving. Cab called for transport.
[2022-11-24 23:18] LABS: Squamous Epithelial Cells - UA 10-25 SEEN /hpf (5-10)
[2022-11-24 23:19] LABS: Bacteria 3+ /hpf (None Seen); Red Blood Cells-Urine 0-5 SEEN /hpf (0-5); White Blood Cells 25-50 SEEN /hpf (0-5)
== END 2022-11-24 23:18 | disposition left against medical advice (07) ==
PROVIDERS: Emergency Provider Emergency Medicine; PCP Family Medicine; Visit Provider Emergency Medicine
DX: N39.0 Urinary tract infection, site not specified (principal); Z87.891 Personal history of nicotine dependence; Z60.2 Problems related to living alone; R35.0 Frequency of micturition; Z53.29 Procedure and treatment not carried out because of patient's decision for other reasons
CPT/HCPCS: 80048; 81001; 82550; 85025; 87077; 87086; 87088; 87186; 99283; J7030; A4216

== ENCOUNTER 2024-06-13 15:44 | Emergency (ER) | payer MEDICARE, MEDICAID, SELFPAY ==
[2024-06-13] VITALS (24 sets, daily range): BP systolic 65–132; BP diastolic 43–96; PULSE 65–86; RESP 15–28; TEMP 35.7–37; O2SAT 95–100; BMI 22.0
--- NOTE | 2024-06-13 16:05 | EKG12_ITS ---
Test Reason : GI BLEED Blood Pressure : */* mmHG Vent. Rate : 74 BPM Atrial Rate : 74 BPM P-R Int : 184 ms QRS Dur : 80 ms QT Int : 598 ms P-R-T Axes : 89 8 135 degrees QTcB Int : 663 ms Critical Test Result: Long QTc Normal sinus rhythm Possible Inferior infarct , age undetermined ST & T wave abnormality, consider lateral ischemia Abnormal ECG Confirmed by ARIA GASTON, ALPHONSE ([id number]), film and video editor FATMATA CONRAD ([id number]) on 06/16/2024 7:05:03 AM Referred By: Confirmed By: ALPHONSE KNAPP MD
[2024-06-13] MEDS: 0.9% Normal Saline (1000mL) 1,000 ML 999 ML IV ×3 (16:15→17:35)
--- NOTE | 2024-06-13 16:19 | EX.ED.DYSGE1 ---
HPI <BENI Vargas - Last Filed: 06/13/24 21:47> History of Present Illness Chief Complaint: GI Bleed Narrative Narrative: Patient is a 63-year-old female with history of anemia, alcohol abuse, bipolar who presents to the emergency department after the home health nurse noticed that the patient had stool all around her, stool on her face, was vomiting black as well as some dark tarry stool. Patient is pale, obvious signs of neglect. When speaking with the patient, she does know where she is at, she states she still does drink alcohol for not every day. She denies any specific pain. Pay states she has had some vomiting over the last couple days. Denies any fever or chills. PFSH <BENI Vargas - Last Filed: 06/13/24 21:47> PFSH Medical History Alcohol abuse Anemia Bipolar disorder Former smoker GERD (gastroesophageal reflux disease) GI bleed Hypothyroidism Injury of head and neck Kidney stones Osteoporosis Restless legs Ulcer Home Medications ?Medication ?Instructions ?Recorded ?Last Taken ?Type pantoprazole 40 mg tablet,delayed 20 mg PO BID GERD 04/08/19 Unknown History release ferrous sulfate 325 mg (65 mg 325 mg PO BID Check with primary 06/11/22 Unknown History iron) tablet (FeroSul) doctor apixaban 5 mg tablet (Eliquis) 2.5 mg (1/2 x 5 mg) PO BID #60 tabs 06/16/22 Unknown Rx ascorbic acid (vitamin C) 500 mg 500 mg PO BID #60 tabs 06/16/22 Unknown Rx tablet (Vitamin C) cephalexin 500 mg capsule 500 mg PO Q8H #21 caps 11/24/22 Unknown Rx Allergy/AdvReac Type Severity Reaction Status Date / Time No Known Allergies Allergy Verified 06/13/24 15:45 Surgical History H/O total hysterectomy History of right hip replacement Social History Smoking Status: Smoker, status unknown tobacco type: cigarettes ROS <BENI Vargas - Last Filed: 06/13/24 21:47> ROS ED ROS Narrative Secondary to the patient having slight confusion, not answering questions appropriately, review of symptoms cannot be completed EXAM <BENI Vargas - Last Filed: 06/13/24 21:47> Physical Exam Narrative Exam Narrative: Vital signs reviewed. Patient on initial arrival was covered in feces. Patient had a plastic bag in the diaper. Stool is dark in color. Patient has a pale appearance. Patient initial blood pressure was 68/56, pulse respiratory rate temp and oxygen saturation was within normal limits. Patient did seem to be alert and orient x 2. However is unable to describe what is going on. HEET: Head normocephalic atraumatic, TMs clear bilaterally. Posterior pharynx is clear, dry mucous membranes, patient does have some dark residue around her lips. This could be secondary to the dark vomit. Nares clear bilaterally. Neck: Supple with no lymphadenopathy or tenderness. No signs of meningismus. Cardiac: Regular rate and rhythm no murmurs gallops or rubs, equal peripheral pulses bilaterally. Respiratory: Lungs clear to auscultation bilaterally. No chest tenderness. Abdomen: Soft, nontender, nondistended. No abdominal bruit or pulsatile masses. No hepatosplenomegaly. No peritoneal signs. Extremities: No peripheral edema, no signs of gross trauma or deformity. Active full range of motion of all extremities. Neuro: Cranial nerves II through XII intact, no focal neurological deficits. Skin: Clean dry and intact with no rash, purpura, petechiae, vesicles or pustules. Patient's skin is pale in appearance. Patient does have some abrasions, wounds from the tightness of the plastic bag as a diaper. Backs/flank: No CVA tenderness, no midline spinal tenderness, no deformity. Psych: Normal mood and affect. No SI, HI or acute psychosis. Rectal: Rectal exam was completed with female nurse coffee bar attendant, there is no open wound, however patient did have a hard stool ball in the rectum. This was a dark green color on my examination. Const Vital Signs: 06/13/24 15:45 06/13/24 16:39 06/13/24 16:39 Temperature 98.6 F 98 F Temperature Source Oral Temporal Pulse Rate 83 82 Respiratory Rate 18 28 H Respiratory Effort Respiratory Pattern Blood Pressure 68/56 L 114/68 Blood Pressure Mean 60 83 Pulse Ox 98 99 Oxygen Delivery Method Room Air Room Air Room Air Fraction of Inspired Oxygen (FIO2) 06/13/24 16:39 06/13/24 16:49 06/13/24 17:00 Temperature Temperature Source Pulse Rate 78 85 Respiratory Rate 18 16 Respiratory Effort Normal Respiratory Pattern Tachypnea Blood Pressure 105/53 L 99/63 Blood Pressure Mean 70 75 Pulse Ox 98 98 Oxygen Delivery Method Room Air Room Air Fraction of Inspired Oxygen (FIO2) 06/13/24 17:23 06/13/24 17:38 06/13/24 17:53 Temperature 97.9 F 97.5 F L 98.5 F Temperature Source Oral Oral Oral Pulse Rate 75 76 78 Respiratory Rate 25 H 22 H 15 Respiratory Effort Respiratory Pattern Blood Pressure 90/58 L 89/53 L 121/76 H Blood Pressure Mean 68 65 91 Pulse Ox 100 100 98 Oxygen Delivery Method Room Air Room Air Room Air Fraction of Inspired Oxygen (FIO2) 06/13/24 18:10 06/13/24 18:23 06/13/24 19:08 Temperature 97.9 F Temperature Source Temporal Pulse Rate 73 86 78 Respiratory Rate 28 H 25 H 25 H Respiratory Effort Respiratory Pattern Blood Pressure 105/94 H 132/96 H 92/80 Blood Pressure Mean 97 108 84 Pulse Ox 100 100 100 Oxygen Delivery Method Room Air Room Air Room Air Fraction of Inspired Oxygen (FIO2) 06/13/24 20:00 06/13/24 21:00 06/13/24 21:15 Temperature Temperature Source Pulse Rate 81 78 Respiratory Rate 16 21 H Respiratory Effort Short of Breath Respiratory Pattern Tachypnea Blood Pressure 95/74 108/59 L Blood Pressure Mean 81 75 Pulse Ox 95 100 Oxygen Delivery Method Room Air Room Air Fraction of Inspired Oxygen (FIO2) 06/13/24 21:15 Temperature Temperature Source Pulse Rate 72 Respiratory Rate 18 Respiratory Effort Respiratory Pattern Normal Blood Pressure Blood Pressure Mean Pulse Ox 100 Oxygen Delivery Method Fraction of Inspired Oxygen (FIO2) 100 Positive cachectic, contractures and unkempt General Appearance ED: unkempt, cachectic and contractures Nutritional Appearance: cachectic Psych Appearance: unkempt <Jose Gardner MD - Last Filed: 06/13/24 22:12> Physical Exam Const Vital Signs: 06/13/24 15:45 06/13/24 16:39 06/13/24 16:39 Temperature 98.6 F 98 F Temperature Source Oral Temporal Pulse Rate 83 82 Respiratory Rate 18 28 H Respiratory Effort Respiratory Pattern Blood Pressure 68/56 L 114/68 Blood Pressure Mean 60 83 Pulse Ox 98 99 Oxygen Delivery Method Room Air Room Air Room Air Fraction of Inspired Oxygen (FIO2) 06/13/24 16:39 06/13/24 16:49 06/13/24 17:00 Temperature Temperature Source Pulse Rate 78 85 Respiratory Rate 18 16 Respiratory Effort Normal Respiratory Pattern Tachypnea Blood Pressure 105/53 L 99/63 Blood Pressure Mean 70 75 Pulse Ox 98 98 Oxygen Delivery Method Room Air Room Air Fraction of Inspired Oxygen (FIO2) 06/13/24 17:23 06/13/24 17:38 06/13/24 17:53 Temperature 97.9 F 97.5 F L 98.5 F Temperature Source Oral Oral Oral Pulse Rate 75 76 78 Respiratory Rate 25 H 22 H 15 Respiratory Effort Respiratory Pattern Blood Pressure 90/58 L 89/53 L 121/76 H Blood Pressure Mean 68 65 91 Pulse Ox 100 100 98 Oxygen Delivery Method Room Air Room Air Room Air Fraction of Inspired Oxygen (FIO2) 06/13/24 18:10 06/13/24 18:23 06/13/24 19:08 Temperature 97.9 F Temperature Source Temporal Pulse Rate 73 86 78 Respiratory Rate 28 H 25 H 25 H Respiratory Effort Respiratory Pattern Blood Pressure 105/94 H 132/96 H 92/80 Blood Pressure Mean 97 108 84 Pulse Ox 100 100 100 Oxygen Delivery Method Room Air Room Air Room Air Fraction of Inspired Oxygen (FIO2) 06/13/24 20:00 06/13/24 21:00 06/13/24 21:15 Temperature Temperature Source Pulse Rate 81 78 Respiratory Rate 16 21 H Respiratory Effort Short of Breath Respiratory Pattern Tachypnea Blood Pressure 95/74 108/59 L Blood Pressure Mean 81 75 Pulse Ox 95 100 Oxygen Delivery Method Room Air Room Air Fraction of Inspired Oxygen (FIO2) 06/13/24 21:15 Temperature Temperature Source Pulse Rate 72 Respiratory Rate 18 Respiratory Effort Respiratory Pattern Normal Blood Pressure Blood Pressure Mean Pulse Ox 100 Oxygen Delivery Method Fraction of Inspired Oxygen (FIO2) 100 ELY <BENI Vargas - Last Filed: 06/13/24 21:47> ELY Lab Data Labs: Laboratory Results - last 24 hr 06/13/24 06/13/24 06/13/24 16:05 16:43 17:29 WBC 11.8 H RBC 2.71 L Hgb 8.0 L Hct 26.4 L MCV 97.4 MCH 29.5 MCHC 30.3 L RDW Std Deviation 74.2 H RDW Coeff of Angelo 20.9 H Plt Count 147 L MPV 10.6 Immature Gran % (Auto) 0.500 Neut % (Auto) 69.4 Lymph % (Auto) 20.9 Dolores % (Auto) 8.2 Eos % (Auto) 0.8 Baso % (Auto) 0.2 Absolute Neuts (auto) 8.2 H Absolute Lymphs (auto) 2.46 Nucleated RBC % 0.6 Differential Comment SCANNED Platelet Estimate ADEQUATE Hypochromasia 1+ Anisocytosis 1+ Target Cells RARE Stomatocytes 2+ PT 47.5 H INR 5.0 H* APTT 51.7 H Sodium 133 L Potassium 2.4 L* Chloride 85 L Carbon Dioxide 31.0 Anion Gap 17 H BUN 24 H Creatinine 2.73 H Estim Creat Clear Calc 23.71 Est GFR (MDRD) Af Amer 22 L Est GFR (MDRD) Non-Af 19 L BUN/Creatinine Ratio 8.8 L Glucose 97 Lactic Acid 8.6 H* Calcium 9.8 Magnesium Total Bilirubin 3.10 H AST 85 H ALT 26 Alkaline Phosphatase 328 H Ammonia Total Creatine Kinase 80 Troponin I High Sens 33 Total Protein 5.4 L Albumin 1.6 L Globulin 3.8 Albumin/Globulin Ratio 0.4 L Urine Color Nae Urine Clarity Sl. Cloudy Urine pH 5.0 Ur Specific [place] 1.020 Urine Protein 30 H Urine Glucose (UA) Normal Urine Ketones 5 H Urine Occult Blood 10 H Urine Nitrite Positive H Urine Bilirubin 6 H Urine Urobilinogen 4 H Ur Leukocyte Esterase 500 H Urine RBC 0-5 SEEN Urine WBC 5-10 SEEN Ur Squamous Epith Cells 0 SEEN Urine Bacteria 2+ Urine Mucus 0 SEEN Urine Opiates Screen Urine Methadone Screen Ur Barbiturates Screen Valproic Acid Ur Phencyclidine Scrn Ur Amphetamines Screen MDMA (Ecstasy) Screen U Benzodiazepines Scrn Urine Cocaine Screen U Cannabinoids Screen Ur Drug Screen Comment Ethyl Alcohol Blood Type Antibody Screen Crossmatch 06/13/24 06/13/24 06/13/24 17:35 18:05 18:33 WBC RBC Hgb Hct MCV MCH MCHC RDW Std Deviation RDW Coeff of Angelo Plt Count MPV Immature Gran % (Auto) Neut % (Auto) Lymph % (Auto) Dolores % (Auto) Eos % (Auto) Baso % (Auto) Absolute Neuts (auto) Absolute Lymphs (auto) Nucleated RBC % Differential Comment Platelet Estimate Hypochromasia Anisocytosis Target Cells Stomatocytes PT INR APTT Sodium Potassium Chloride Carbon Dioxide Anion Gap BUN Creatinine Estim Creat Clear Calc Est GFR (MDRD) Af Amer Est GFR (MDRD) Non-Af BUN/Creatinine Ratio Glucose Lactic Acid Calcium Magnesium 0.9 L* Total Bilirubin AST ALT Alkaline Phosphatase Ammonia Total Creatine Kinase Troponin I High Sens Total Protein Albumin Globulin Albumin/Globulin Ratio Urine Color Urine Clarity Urine pH Ur Specific [place] Urine Protein Urine Glucose (UA) Urine Ketones Urine Occult Blood Urine Nitrite Urine Bilirubin Urine Urobilinogen Ur Leukocyte Esterase Urine RBC Urine WBC Ur Squamous Epith Cells Urine Bacteria Urine Mucus Urine Opiates Screen NEGATIVE Urine Methadone Screen NEGATIVE Ur Barbiturates Screen NEGATIVE Valproic Acid 9 L Ur Phencyclidine Scrn NEGATIVE Ur Amphetamines Screen NEGATIVE MDMA (Ecstasy) Screen NEGATIVE U Benzodiazepines Scrn NEGATIVE Urine Cocaine Screen NEGATIVE U Cannabinoids Screen NEGATIVE Ur Drug Screen Comment Ethyl Alcohol < 3.0 Blood Type Antibody Screen Crossmatch 06/13/24 06/13/24 20:11 20:56 WBC RBC Hgb 6.8 L Hct 22.3 L MCV MCH MCHC RDW Std Deviation RDW Coeff of Angelo Plt Count MPV Immature Gran % (Auto) Neut % (Auto) Lymph % (Auto) Dolores % (Auto) Eos % (Auto) Baso % (Auto) Absolute Neuts (auto) Absolute Lymphs (auto) Nucleated RBC % Differential Comment Platelet Estimate Hypochromasia Anisocytosis Target Cells Stomatocytes PT INR APTT Sodium Potassium Chloride Carbon Dioxide Anion Gap BUN Creatinine Estim Creat Clear Calc Est GFR (MDRD) Af Amer Est GFR (MDRD) Non-Af BUN/Creatinine Ratio Glucose Lactic Acid 8.6 H* Calcium Magnesium Total Bilirubin AST ALT Alkaline Phosphatase Ammonia < 10.0 L Total Creatine Kinase Troponin I High Sens Total Protein Albumin Globulin Albumin/Globulin Ratio Urine Color Urine Clarity Urine pH Ur Specific [place] Urine Protein Urine Glucose (UA) Urine Ketones Urine Occult Blood Urine Nitrite Urine Bilirubin Urine Urobilinogen Ur Leukocyte Esterase Urine RBC Urine WBC Ur Squamous Epith Cells Urine Bacteria Urine Mucus Urine Opiates Screen Urine Methadone Screen Ur Barbiturates Screen Valproic Acid Ur Phencyclidine Scrn Ur Amphetamines Screen MDMA (Ecstasy) Screen U Benzodiazepines Scrn Urine Cocaine Screen U Cannabinoids Screen Ur Drug Screen Comment Ethyl Alcohol Blood Type O POSITIVE Antibody Screen NEGATIVE Crossmatch See Detail Radiography Diagnostic Testing: Clinical Impression(s) from Imaging Studies Brain CT 06/13/24 17:00 IMPRESSION: No CT evidence of acute intracranial pathology. Reading Location: [facility] Chest/Abdomen/Pelvis CT 06/13/24 17:00 IMPRESSION: Patchy left base opacities commonly atelectasis unless pneumonia is of clinical concern. Cholelithiasis. Severe hepatomegaly and steatosis. Nonspecific dystrophic calcification at the head of the pancreas. Correlate for chronic pancreatitis. Clinical and imaging surveillance is advised. One or more dose reduction techniques were used (e.g., Automated exposure control, adjustment of the mA and/or kV according to patient size, use of iterative reconstruction technique). Reading Location: [facility] EKG Patient had a prolonged QTc, rate of 74 bpm: Attestation: I personally reviewed and interpreted this EKG as follows: Comments: Prolonged QTc with a rate of 74 bpm, OK interval 184 ms, QRS duration 80 ms, QTc showed 663. Treatment and Re-Evaluation :: Differential diagnosis includes however is not limited to: Electrolyte abnormality, severe dehydration, [place], ACS, CVA, intracranial hemorrhage, UTI, upper GI bleed, lower GI bleed, alcohol abuse, drug abuse, rhabdomyolysis Patient is hypotensive, patient remainder the vital signs are stable. Alert and orient x 2. Patient presents for altered mental status, failure to thrive, not caring for self. Patient has excrement throughout her body, her diaper was a plastic bag that was tied tightly on her skin causing skin abrasions. Patient will receive a full septic workup including sets of blood cultures, urine culture, lactic, total CK, CT scan of the brain, CT scan of the chest abdomen pelvis. Patient was given 2 L of normal saline. Type and screen will be completed. Patient will need to be admitted to the hospital. Looking at her recent filled prescriptions, I do not see any Eliquis however this might be in the past. Patient is on Depakote, history of alcohol use. Alcohol as well as a drug screen will be ordered. All radiologic examinations were read, reviewed by the emergency department attending. From these reads, a plan of care will be put in place. responding well to IV fluids. Patient will get a total of 3 L of normal saline. Patient multiple abnormal lab values. Patient's CBC shows a leukocytosis with white blood count of 11.8, hemoglobin of 8.0, patient has been this low throughout 2022, the last time a CBC was drawn was November 24, 2022 and it was 13.9. Patient's PTT was elevated 47.5, critical INR at 5.0, APTT of 51.7. Chemistries showed JESSICA with a creatinine of 2.73, baseline usually around 0.84. Potassium is critically low at 2.4, this was replaced through the IV. Sodium was 133, lactic acid grossly elevated 8.6. Total bilirubin elevated 3.1, AST 85 with an alkaline phosphatase of 328. Patient's stool occult was negative. Urinalysis was positive for infection with 2+ bacteria 5-10 white blood cells, 500 leukocytes, positive nitrites. Blood cultures x 2, urine culture was ordered. IV Zosyn administered. Patient met requirement for 30 cc/kg IV fluid bolus. Currently waiting for the CT of the chest abdomen pelvis, patient did have some vomitus that did look to be coffee ground. CT of the brain was unremarkable. Patient continues to be incontinent stool. I did provide the patient with 10 mg of IV vitamin K. Patient was also given IV sneezing, IV fluids at 200/h. CT scan of the chest abdomen pelvis shows patchy left base opacities, he atelectasis unless pneumonia is clinical concern. Secondary the patient's vomiting, as when she was treated with vancomycin, cholelithiasis. Severe hepatomegaly and steatosis. Nonspecific dystrophic calcification of the head of the pancreas. I did reach out to the hospitalist, he states the patient secondary to multi organ failure, not appropriate for this hospital. Patient continues to have bowel movements, this does drop her pressure. Repeat H&H will be ordered. As well as repeat lactic acid. I will speak to the transfer center at [facility] when I get these results. Patient's repeat laboratory values showed a worsening hemoglobin at 6.8, this was after the large bowel movement. Patient's lactic acid remained the same at 8.6. I spoke with the lab regarding this, they states they did use a new sample. I did choose to give trauma blood send the patient's blood pressure, as well as the anemia. I spoke with the [facility] center, I spoke again with Dr. Yeager who is the sports development officer. Secondary to these findings of the laboratory values, he recommended transfer to ICU, he will be calling in GI for scoping, they recommended that the patient be transferred for critical care as well as intubated prior to transport. Patient currently getting intubated. Patient is successfully intubated. Trauma blood is now up. Patient will be going by critical care transport to [facility] ICU. Dr. Yeager is accepting physician. <Jose Gardner MD - Last Filed: 06/13/24 22:12> MDM MDM Narrative Medical decision making narrative: Dr. Gardner: I have personally performed a face to face assessment of the patient and have reviewed the JOSH Note. I performed a substantive portion of the visit including all aspects of the following. My pollard findings include: History is GI bleed. History of alcohol abuse. Found to be wearing plastic bag as diaper. Covered in own feces. Exam is afebrile. Vital signs noted. Regular rate and rhythm. Lungs clear to auscultation bilaterally. Abdomen soft and nontender. Initially hypotensive. Medical Decision Making: Differential diagnosis is for GI bleed versus dehydration versus debility and inability to care for self. Patient administered IV fluid bolus. In review of her laboratory work, initial hemoglobin 8.0, hematocrit 26.4. Platelet count slightly low at 147. Sodium low at 133 with potassium 2.4. Check magnesium, also low. INR elevated at 5.0, patient is not on Coumadin, suspected from liver disease. Lactic acid elevated at 8.6. Patient has intermittent hypotension and was bolused at least 3 L of IV fluids. She did maintain adequate MAP. High-sensitivity troponin 33. While she was Hemoccult negative from below, she had coffee-ground emesis. As it is not bright red, I have low suspicion for esophageal variceal bleeding. She did have a large bowel movement with a few clots of blood/bright red blood according to RN. Repeat hemoglobin is now low at 6.8. There is initial problem with type and crossmatch, so 1 unit of trauma blood was started. As her INR is elevated at 5.0 and she has suspicious life-threatening bleeding suspected in the GI tract, vitamin K was also started. While she is meeting sepsis criteria, antibiotics were started, but she may be more dehydrated with acute kidney injury with creatinine 2.7 up from baseline of 0.8. Patient initially discussed with hospitalist here, but there is no on-call sports development officer. Additionally, gastroenterology is not on-call tomorrow and unavailable. It was recommended that she be transferred. Patient was discussed with Dr. Yeager with ICU at [facility]. Given that her repeat lactic acid is unchanged, she has been accepted to the ICU. They are requesting that her airway be secured and that the patient be intubated. Patient is agreeable to this. Rapid sequence intubation was performed by myself using 20 mg of etomidate intravenously as well as succinylcholine 100 mg intravenously.. Video laryngoscopy was used with a curved blade and 7.5 ET tube inserted to 21 at the lips. She had equal breath sounds bilaterally, and no epigastric noise. Additionally, there was positive color change on capnography. Additionally, chest x-ray interpreted by myself postintubation does show the ET tube at least 2 cm above the cora, without evidence of pneumothorax or pneumonia. Additionally I interpreted the KUB x-ray after OG tube placement. She has had output of dark red blood at least 200 mL. I will plan was for transport by critical care ground, given her drop in hemoglobin and intermittent hypotension, request will be made for transfer via helicopter/air. If this is unavailable secondary to weather, she will be transported by ground. She was started on a fentanyl drip and given boluses of 50 mcg twice for adequate sedation, then also administered rocuronium 50 mg intravenously as well. Per RN, she spoke with the patient's cousin and states that this is somewhat of a pattern for the patient where she will get GI bleeding, stopped drinking alcohol, then start again. She has had GI bleeds in the past reportedly. This also makes me more suspicious for bleeding ulcer. Disposition is transferred in critical condition. Other additions or changes: [None] History & Record Review Discussion w/independent historian: EMS personnel and Patient Lab Data Attestation: I reviewed the patient's lab results. Labs: Laboratory Results - last 24 hr 06/13/24 06/13/24 06/13/24 16:05 16:43 17:29 WBC 11.8 H RBC 2.71 L Hgb 8.0 L Hct 26.4 L MCV 97.4 MCH 29.5 MCHC 30.3 L RDW Std Deviation 74.2 H RDW Coeff of Angelo 20.9 H Plt Count 147 L MPV 10.6 Immature Gran % (Auto) 0.500 Neut % (Auto) 69.4 Lymph % (Auto) 20.9 Dolores % (Auto) 8.2 Eos % (Auto) 0.8 Baso % (Auto) 0.2 Absolute Neuts (auto) 8.2 H Absolute Lymphs (auto) 2.46 Nucleated RBC % 0.6 Differential Comment SCANNED Platelet Estimate ADEQUATE Hypochromasia 1+ Anisocytosis 1+ Target Cells RARE Stomatocytes 2+ PT 47.5 H INR 5.0 H* APTT 51.7 H Sodium 133 L Potassium 2.4 L* Chloride 85 L Carbon Dioxide 31.0 Anion Gap 17 H BUN 24 H Creatinine 2.73 H Estim Creat Clear Calc 23.71 Est GFR (MDRD) Af Amer 22 L Est GFR (MDRD) Non-Af 19 L BUN/Creatinine Ratio 8.8 L Glucose 97 Lactic Acid 8.6 H* Calcium 9.8 Magnesium Total Bilirubin 3.10 H AST 85 H ALT 26 Alkaline Phosphatase 328 H Ammonia Total Creatine Kinase 80 Troponin I High Sens 33 Total Protein 5.4 L Albumin 1.6 L Globulin 3.8 Albumin/Globulin Ratio 0.4 L Urine Color Nae Urine Clarity Sl. Cloudy Urine pH 5.0 Ur Specific [place] 1.020 Urine Protein 30 H Urine Glucose (UA) Normal Urine Ketones 5 H Urine Occult Blood 10 H Urine Nitrite Positive H Urine Bilirubin 6 H Urine Urobilinogen 4 H Ur Leukocyte Esterase 500 H Urine RBC 0-5 SEEN Urine WBC 5-10 SEEN Ur Squamous Epith Cells 0 SEEN Urine Bacteria 2+ Urine Mucus 0 SEEN Urine Opiates Screen Urine Methadone Screen Ur Barbiturates Screen Valproic Acid Ur Phencyclidine Scrn Ur Amphetamines Screen MDMA (Ecstasy) Screen U Benzodiazepines Scrn Urine Cocaine Screen U Cannabinoids Screen Ur Drug Screen Comment Ethyl Alcohol Blood Type Antibody Screen Crossmatch 06/13/24 06/13/24 06/13/24 17:35 18:05 18:33 WBC RBC Hgb Hct MCV MCH MCHC RDW Std Deviation RDW Coeff of Angelo Plt Count MPV Immature Gran % (Auto) Neut % (Auto) Lymph % (Auto) Dolores % (Auto) Eos % (Auto) Baso % (Auto) Absolute Neuts (auto) Absolute Lymphs (auto) Nucleated RBC % Differential Comment Platelet Estimate Hypochromasia Anisocytosis Target Cells Stomatocytes PT INR APTT Sodium Potassium Chloride Carbon Dioxide Anion Gap BUN Creatinine Estim Creat Clear Calc Est GFR (MDRD) Af Amer Est GFR (MDRD) Non-Af BUN/Creatinine Ratio Glucose Lactic Acid Calcium Magnesium 0.9 L* Total Bilirubin AST ALT Alkaline Phosphatase Ammonia Total Creatine Kinase Troponin I High Sens Total Protein Albumin Globulin Albumin/Globulin Ratio Urine Color Urine Clarity Urine pH Ur Specific [place] Urine Protein Urine Glucose (UA) Urine Ketones Urine Occult Blood Urine Nitrite Urine Bilirubin Urine Urobilinogen Ur Leukocyte Esterase Urine RBC Urine WBC Ur Squamous Epith Cells Urine Bacteria Urine Mucus Urine Opiates Screen NEGATIVE Urine Methadone Screen NEGATIVE Ur Barbiturates Screen NEGATIVE Valproic Acid 9 L Ur Phencyclidine Scrn NEGATIVE Ur Amphetamines Screen NEGATIVE MDMA (Ecstasy) Screen NEGATIVE U Benzodiazepines Scrn NEGATIVE Urine Cocaine Screen NEGATIVE U Cannabinoids Screen NEGATIVE Ur Drug Screen Comment Ethyl Alcohol < 3.0 Blood Type Antibody Screen Crossmatch 06/13/24 06/13/24 20:11 20:56 WBC RBC Hgb 6.8 L Hct 22.3 L MCV MCH MCHC RDW Std Deviation RDW Coeff of Angelo Plt Count MPV Immature Gran % (Auto) Neut % (Auto) Lymph % (Auto) Dolores % (Auto) Eos % (Auto) Baso % (Auto) Absolute Neuts (auto) Absolute Lymphs (auto) Nucleated RBC % Differential Comment Platelet Estimate Hypochromasia Anisocytosis Target Cells Stomatocytes PT INR APTT Sodium Potassium Chloride Carbon Dioxide Anion Gap BUN Creatinine Estim Creat Clear Calc Est GFR (MDRD) Af Amer Est GFR (MDRD) Non-Af BUN/Creatinine Ratio Glucose Lactic Acid 8.6 H* Calcium Magnesium Total Bilirubin AST ALT Alkaline Phosphatase Ammonia < 10.0 L Total Creatine Kinase Troponin I High Sens Total Protein Albumin Globulin Albumin/Globulin Ratio Urine Color Urine Clarity Urine pH Ur Specific [place] Urine Protein Urine Glucose (UA) Urine Ketones Urine Occult Blood Urine Nitrite Urine Bilirubin Urine Urobilinogen Ur Leukocyte Esterase Urine RBC Urine WBC Ur Squamous Epith Cells Urine Bacteria Urine Mucus Urine Opiates Screen Urine Methadone Screen Ur Barbiturates Screen Valproic Acid Ur Phencyclidine Scrn Ur Amphetamines Screen MDMA (Ecstasy) Screen U Benzodiazepines Scrn Urine Cocaine Screen U Cannabinoids Screen Ur Drug Screen Comment Ethyl Alcohol Blood Type O POSITIVE Antibody Screen NEGATIVE Crossmatch See Detail Radiography Diagnostic Testing: Clinical Impression(s) from Imaging Studies Brain CT 06/13/24 17:00 IMPRESSION: No CT evidence of acute intracranial pathology. Reading Location: [facility] Chest/Abdomen/Pelvis CT 06/13/24 17:00 IMPRESSION: Patchy left base opacities commonly atelectasis unless pneumonia is of clinical concern. Cholelithiasis. Severe hepatomegaly and steatosis. Nonspecific dystrophic calcification at the head of the pancreas. Correlate for chronic pancreatitis. Clinical and imaging surveillance is advised. One or more dose reduction techniques were used (e.g., Automated exposure control, adjustment of the mA and/or kV according to patient size, use of iterative reconstruction technique). Reading Location: [facility] Management Discussion w/another healthcare provider: Hospitalist and Autocad Draftsman Procedures <Jose Gardner MD - Last Filed: 06/13/24 22:12> Intubations Intubation Method: orotracheal Intubation Verification: Positive color change and Bilateral breath sounds confirmed Intubation Complications: no complications <Jose Gardner MD - Last Filed: 06/13/24 22:12> Critical Care Time Critical care time (excluding procedures): 30-74 minutes (61), Including time spent:, Discussing w/Patient &/or Family/Leather Roller, Discussing w/Consultants, Arranging Admission or Transfer and Performing Direct Patient Care at Bedside Discharge Plan Triage Chief Complaint: GI Bleed Other Complaint: General Illness Mental Health ED Midlevel Provider: Yeison Vieira ED Provider: Jose Gardner Dx/Rx/DC Orders Clinical Impression: Severe sepsis, Anemia, Acute GI bleeding, Septic shock, Elevated INR, Pneumonia, Acute UTI, JESSICA (acute kidney injury), Acute hypokalemia Prescriptions: No Action pantoprazole 40 MG tablet 20 mg PO BID ferrous sulfate [FeroSul] 325 mg (65 mg iron) tablet 325 mg PO BID Patient Comments: take 1 tablet by mouth twice a day with meals Eliquis 5 mg Tablet 2.5 mg PO BID Qty: 60 0RF ascorbic acid (vitamin C) [Vitamin C] 500 mg tablet 500 mg PO BID Qty: 60 0RF Rx Instructions: Take with iron cephalexin 500 mg capsule 500 mg PO Q8H Qty: 21 0RF Primary Care Provider: Gonsalo Shannon Referrals: Gonsalo Shannon MD [Primary Care Provider] - Print Language: Belizean Disposition Disposition: Acute Care Hospital Discharge Location: [facility]
[2024-06-13 16:34] LABS: Absolute Lymphocyte Count 2.46 X10^3/uL (0.83-4.51); Absolute Neutrophil Count 8.2 X10^3/uL (2.0-7.7); Basophil# 0.02 X10^3/uL; Basophil% 0.2 % (0-1); Eosinophils% 0.8 % (0-5); Hematocrit 26.4 % (37-47); Lymphocyte # 2.46 X10^3/ul (0.83-4.51); Lymphocyte % 20.9 % (19-41); Mean Corp Hgb Conc 30.3 g/dL (32-36); Mean Corpuscular Hgb 29.5 pg (27.0-32.0); Mean Corpuscular Volume 97.4 fL (81-99); Mean Platelet Vol. 10.6 fl (6.2-12.0); Monocyte# 0.97 X10^3/uL; Monocyte% 8.2 % (0-10); NRBC Flagged by Analyzer 0.6 % (0-5); Neutrophil # 8.18 X10^3/uL (2.7-7.7); Neutrophil % 69.4 % (47-70); POSITIVE MORPHOLOGY YES; Platelet Count 147 K/mm3 (150-450); RBC Distribution Width CV 20.9 % (11.6-14.6); RBC Distribution Width SD 74.2 fl (35.1-43.9); Red Blood Count 2.71 M/mm3 (4.2-5.4); White Blood Count 11.8 K/mm3 (4.4-11.0)
[2024-06-13 16:49] LABS: Mucous, Urine 0 SEEN /hpf (<or=2+); Squamous Epithelial Cells - UA 0 SEEN /hpf (5-10)
[2024-06-13 16:57] LABS: Differential Indicated SCAN CRITERIA MET
[2024-06-13 17:00] LABS: Partial Thromboplast Time 51.7 Seconds (24.1-36.2)
[2024-06-13 17:00] LABS: Color, Urine Amber (Yellow); Glucose, Dipstick Normal (Normal); Ketone-Dipstick 5 mg/dl (Negative); Leukocyte Esterase-Dipstick 500 /ul (Negative); Nitrite-Dipstick Positive (Negative); Occult Blood-Urine 10 /ul (Negative); Protein-Dipstick 30 mg/dl (Negative); Urine Clarity Sl. Cloudy (Clear); Urine Urobilinogen 4 mg/dl (Normal)
--- NOTE | 2024-06-13 17:00 | CT_ITS ---
PROCEDURE: CT CHEST, ABD, PEL W/CONTRAST REASON FOR EXAM: Pain TECHNIQUE: Chest CTA with intravenous contrast and 3D reconstructions. Abdomen and pelvis CT using the same contrast dose. CONTRAST: COMPARISON: None. FINDINGS: CHEST: Lines and tubes: None. Mediastinum: No evidence of mediastinal hemorrhage. Heart: Normal heart size. No pericardial effusion. Calcified mediastinal nodes particularly in the AP window suggestive of prior granulomatous disease. Thoracic Aorta: No evidence of acute traumatic aortic injury. Lungs and Airways: Patchy left base opacities commonly atelectasis unless pneumonia is of clinical concern. Pleura: No pleural effusion. No pneumothorax. Bones: No acute osseous abnormality identified. ABDOMEN AND PELVIS: Liver: Severe hepatomegaly and hepatic steatosis.. Gallbladder: Punctate stones are seen. Spleen: Granulomatous changes. Pancreas: Dystrophic calcification seen at the head of the pancreas, may reflect chronic pancreatitis.. Adrenals: Unremarkable. Kidneys: Unremarkable. Bladder: Unremarkable. Reproductive Organs: Unremarkable. Bowel: Moderate hiatal hernia. Contrast is noted in the large bowel extending throughout its entirety with minimal opacification of the distal small bowel. No obstruction.. Vasculature: Major vascular structures are unremarkable. Peritoneum / Retroperitoneum: No free fluid. No free air. Bones: No acute osseous abnormality identified. CT/CT Chest, Abd, Pel w/Contrast IMPRESSION: Patchy left base opacities commonly atelectasis unless pneumonia is of clinical concern. Cholelithiasis. Severe hepatomegaly and steatosis. Nonspecific dystrophic calcification at the head of the pancreas. Correlate fo r chronic pancreatitis. Clinical and imaging surveillance is advised. One or more dose reduction techniques were used (e.g., Automated exposure contr ol, adjustment of the mA and/or kV according to patient size, use of iterative reconstruction technique). Reading Location: [facility]
--- NOTE | 2024-06-13 17:00 | CT_ITS ---
EXAM: BRAIN/HEAD WITHOUT CONTRAST CLINICAL HISTORY: old with . COMPARISON: None. TECHNIQUE: Noncontrast images of the head with multiplanar reconstructions. Dose reduction techniques were used including intermediate exposure control (AEC),iterative reconstruction technique, and/or mA and/or KV dose adjustments based on patient's size. FINDINGS: CT HEAD FINDINGS: No acute intracranial hemorrhage, mass, mass effect, midline shift or pathologic extra-axial fluid collection. No hydrocephalus. Age- appropriate cerebral volume and white matter. Visualized paranasal sinuses and mastoid air cells are clear. The calvarium is grossly intact. CT/Brain/Head without Contrast IMPRESSION: No CT evidence of acute intracranial pathology. Reading Location: [facility]
[2024-06-13 17:02] LABS: Urine Bilirubin Dipstick 6 mg/dL (Negative)
[2024-06-13 17:12] LABS: ALB/GLOB Ratio 0.4 RATIO (0.9-2.4); AST(SGOT) 85 U/L (15-37); Alanine Aminotransfer ALT/SGPT 26 U/L (13-56); Albumin, Serum 1.6 g/dL (3.2-5.0); Alkaline Phosphatase 328 U/L (45-117); Anion Gap 17 (5-15); BUN 24 mg/dL (7-18); BUN/Creat Ratio 8.8 RATIO (10-20); CPK Total, Creatine Kinase 80 U/L (26-192); Calcium,Total 9.8 mg/dL (8.5-10.1); Chloride 85 mmol/L (98-107); Creatinine, Serum 2.73 mg/dL (0.55-1.02); EST Glomerular Filtration Rate 19 mL/min (>60); Est Glom Filt Rate - Afr Amer 22 mL/min (>60); Estimated Creatinine Clearance 23.71 ml/min; Globulin 3.8 g/dL (2.2-4.2); Glucose 97 mg/dL (74-106); Potassium 2.4 mmol/L (3.5-5.1); Protein, Total 5.4 g/dL (6.4-8.2); Sodium Level 133 mmol/L (136-145); Troponin-I HS 33 pg/mL (3.0-54.0)
[2024-06-13 17:15] LABS: Prothrombin Time (Protime)PT. 47.5 SECONDS (11.7-14.9)
[2024-06-13 17:29] LABS: Bacteria 2+ /hpf (None Seen); Red Blood Cells-Urine 0-5 SEEN /hpf (0-5); White Blood Cells 5-10 SEEN /hpf (0-5)
[2024-06-13 17:48] LABS: Differential Comment SCANNED
[2024-06-13 17:49] LABS: Anisocytosis 1+; Hypochromasia 1+; Platelet Estimate ADEQUATE (ADEQ); Stomatocyte 2+; Target Cells RARE
[2024-06-13] MEDS: Potassium Chloride 10mEq/100mL 10 MEQ/100 ML IV.SOLN. 100 MEQ IV BOLUS ×4 (18:03→22:32)
[2024-06-13 18:23] LABS: Lactic Acid 8.6 mmol/L (0.4-1.9)
[2024-06-13] MEDS: Piperacil/Tazobactam 3.375 GM in 0.9% Normal Saline (50mL MB+) 50 ML IV (18:40)
[2024-06-13 18:53] LABS: Amphetamine Urine NEGATIVE (<1000 ng/mL); Barbiturate Urine VISTA NEGATIVE (< 200 ng/mL); Benzodiazepine Urine VISTA NEGATIVE (< 200 ng/mL); Cocaine Urine VISTA NEGATIVE (< 300 ng/mL); Ecstacy Urine VISTA NEGATIVE (< 500 ng/mL); Methadone Urine VISTA NEGATIVE (< 300 ng/mL); PCP Urine VISTA NEGATIVE (< 25 ng/mL); THC Urine VISTA NEGATIVE (< 50 ng/mL); Vista UDS pH Range 5
[2024-06-13 19:00] LABS: Alcohol, Blood (Medical)-Serum < 3.0 mg/dL
[2024-06-13 19:02] LABS: Magnesium 0.9 mg/dL (1.6-2.6)
[2024-06-13 19:06] LABS: Valproic Acid (Depakene) Level 9 ug/mL (50-100)
--- NOTE | 2024-06-13 19:45 | CM.ED ---
Social work Reason for referral: Referral source: Ling RN and Karely RN This SW received communication from both Ling ESPINAL and Karely RN regarding patient's presentation to [facility] ED. Patient reportedly arrived by squad with signs of neglect, including being covered in stool and wearing a diaper made of a plastic bag that was cutting into patient's skin. Patient had a pink slip arrive with patient for failure to thrive, self-neglect, and refusal to come to the hospital for treatment. This SW entered patient's room initially while Ling RN was placing another IV. This SW introduced self and role at [facility] to patient, but patient was observed not being very alert. Patient was falling asleep throughout time SW spent in patient's room. Patient was able to state patient lives alone, but patient was unable to provide further information. This SW called patient's sister, Jo, and left a voicemail requesting a return call. Provided the ED nurses station number ([phone]) due to shift ending soon. Called patient's cousin, Taylor Franklyn, and informed Taylor of patient's presentation to [facility] ED and pending transfer. Taylor stated unfortunately not being surprised by patient's presentation to [facility] ED as patient has struggled for many years. Taylor stated patient is an alcoholic and constantly lies. Taylor stated self and patient's sister, Jo, have tried to help patient so many times in the past, but have washed our hands of her because you can't help her. Patient reportedly will not let Taylor and Jo in patient's home and has been living [facility]. Taylor confirmed that patient lives alone and that APS has been involved in the past. Taylor stated patient may have a guardian through the [facility], but was not sure of the status of this. This SW stated patient's nurse Karely ESPINAL had offered to call patient's family with updates and Taylor accepted, stating intent to update patient's sister as well. Updated Karely ESPINAL of patient's cousin's request for Karely to call with update when available, as well as which hospital patient would be transferring to when that information was known. Plan: patient being transferred to higher level of care; SW to follow up with APS and possible guardianship. Mone Zarate, PRESS SECRETARY, PUBLIC WORKS MANAGER
[2024-06-13 20:16] LABS: Hematocrit 22.3 % (37-47); Hemoglobin 6.8 g/dL (12.0-15.0)
[2024-06-13] MEDS: 0.9% Normal Saline (1000mL) 1,000 ML 250 ML IV (20:18)
[2024-06-13] MEDS: Magnesium Sulfate 2 GM in Dextrose 5%-Water (100mL Bag) 100 ML IV (20:18)
[2024-06-13] MEDS: Phytonadione (Vit K) 10 MG in 0.9% Normal Saline (50mL Bag) 50 ML 150 MG IV (20:33)
--- NOTE | 2024-06-13 20:38 | ED.RN ---
Coral pts cousin updated on transfer.
[2024-06-13 20:43] LABS: Ammonia < 10.0 umol/L (11-32)
[2024-06-13 20:48] LABS: Lactic Acid 8.6 mmol/L (0.4-1.9)
[2024-06-13] MEDS: Etomidate 20 MG/10 ML Vial IV (21:15)
[2024-06-13] MEDS: Succinylcholine Chloride 200 MG/10 ML SYRINGE 100 MG IV (21:15)
[2024-06-13] MEDS: Vancomycin IV 1,000 MG/200 ML BAG 200 MG IV (21:27)
[2024-06-13] MEDS: fentaNYL drip 100 ML 5 MCG CONT INF (21:29)
--- NOTE | 2024-06-13 21:40 | RAD_ITS ---
PROCEDURE: CHEST 1 VIEW (PORTABLE) REASON FOR EXAM: Cough TECHNIQUE: Single frontal image including the chest and abdomen. COMPARISON: Reviewed. FINDINGS: Interval placement of an endotracheal tube with the distal tip projecting approximately 4.5 cm above the cora, as well as an enteric tube coursing below the left hemidiaphragm outside of the field of view. Calcified hilar nodes are again seen. New minimal patchy airspace opacities at the left base are nonspecific. No pneumothorax. RAD/Chest 1 View (Portable) IMPRESSION: As above. Reading Location: [facility]
[2024-06-13] MEDS: fentaNYL 100 MCG/2 ML Ampul 50 MCG IV ×2 (21:44→21:54)
--- NOTE | 2024-06-13 21:45 | RAD_ITS ---
PROCEDURE: ABDOMEN SINGLE VIEW (PORTABLE) REASON FOR EXAM: Enteric tube TECHNIQUE: Single view abdomen. COMPARISON: None FINDINGS: Nonspecific nonobstructive bowel gas pattern. Enteric tube courses below the left hemidiaphragm coursing to the slight right side of the hemiabdomen suggesting placement within the proximal small bowel. No free air. RAD/Abdomen Single View (Portable) IMPRESSION: As above. [facility]
[2024-06-13 21:48] LABS: Reflex Lactate? Y
[2024-06-13] MEDS: Rocuronium Bromide 50 MG/5 ML Vial IV (21:56)
[2024-06-13 22:39] LABS: Allen Test Positive; Base Excess -27 mmol/L (-2 to +2); Blood Gas Specimen Type ART; Mode AC; O2 Delivery Device Adult Vent; PEEP 5; PO2 54 mmHG (75-100); RR 18; SITE L Radial; SO2 45 % (95-99); Total Carbon Dioxide 13 mmol/L; pCO2 86.4 mmHg (35-45); pH 6.67 (7.35-7.45)
--- NOTE | 2024-06-13 22:56 | ED.RN ---
PT BROUGHT IN BY EMS, COVERED IN FECES WITH A SATURATED DEPENDS. PATIENT HAD SOME COFFEE GROUND EMESIS. PT WITH WOUNDS ON BILATERAL HIPS APPEARING TO BE PRESSURE OR FRICTION WOUNDS FROM DEPENDS.
--- NOTE | 2024-06-13 23:00 | ED.RN ---
PER DR. GALICIA, ONE UNIT OF TRAUMA BLOOD STARTED AT 2100. SECOND UNIT OF BLOOD OBTAINED FROM BLOOD BANK AND VERIFIED PER POLICY, STARTED AT 2216. PER SEAMUS GASTON TO ADMINISTER BOTH UNITS OF BLOOD VIA PRESSURE BAG D/T HEMODYNAMIC INSTABILITY.
--- NOTE | 2024-06-13 23:32 | ED.RN ---
Pt sister Jo updated on being transferred at this time.
--- NOTE | 2024-06-13 23:44 | ED.RN ---
100 MEQ OF SODIUM BICARBONATE GIVEN TO [facility]SPORT FOR USE DURING TRANSPORTATION.
[2024-06-14 00:15] LABS: Reflex Lactate? Y
--- NOTE | 2024-06-14 00:30 | ED.RN ---
REPORT CALLED TO KYLIE GOMEZ AT [facility]
--- NOTE | 2024-06-16 12:36 | CM.ED ---
Social work Called Levi with APS ([phone]) and informed of patient's recent presentation to [facility], as well as patient's transer to a higher level of care. Levi stated much APS history with patient and patient's difficult case. Levi stated understanding that as of last SW knowledge, patient was transferred to [facility]'s ICU. Levi expressed understanding and thanked this SW for the call. Levi stated that if patient returned home, patient's cyanide case hardener with [employer] would follow up with Levi. This SW did ask about patient's possible guardianship per conversation with patient's cousin on Tuesday 06/13. Levi stated that patient does not currently have a guardian due to having all mental faculties; Levi stated this could possibly change due to patient's recent medical decline. No other needs identified at this time. Mone Zarate, VP OF DIGITAL MARKETING, HAIRCUTTER
== END 2024-06-14 00:33 | disposition short-term general hospital (02) ==
PROVIDERS: Nurse Practitioner; Emergency Provider Emergency Medicine; PCP Family Medicine; Visit Provider Emergency Medicine
DX: A41.9 Sepsis, unspecified organism (principal); R65.21 Severe sepsis with septic shock; R79.1 Abnormal coagulation profile; D64.9 Anemia, unspecified; J18.9 Pneumonia, unspecified organism; E87.6 Hypokalemia; N39.0 Urinary tract infection, site not specified; N17.9 Acute kidney failure, unspecified; K92.2 Gastrointestinal hemorrhage, unspecified; E87.4 Mixed disorder of acid-base balance; K21.9 Gastro-esophageal reflux disease without esophagitis; F17.210 Nicotine dependence, cigarettes, uncomplicated; R41.0 Disorientation, unspecified; I95.9 Hypotension, unspecified; R62.7 Adult failure to thrive; D72.829 Elevated white blood cell count, unspecified; R16.0 Hepatomegaly, not elsewhere classified; Z74.2 Need for assistance at home and no other household member able to render care; F10.10 Alcohol abuse, uncomplicated; T14.8XXA Other injury of unspecified body region, initial encounter; X58.XXXA Exposure to other specified factors, initial encounter; E87.20 Acidosis, unspecified
CPT/HCPCS: 31500; 36415; 36430; 36600; 51702; 70450; 71045; 71260; 74018; 74177; 80053; 80164; 80307; 81001; 82077; 82140; 82274; 82550; 82803; 83605; 83735; 84484; 85014; 85018; 85025; 85610; 85730; 86850; 86900; 86901; 86920; 86922; 87040; 87077; 87086; 87088; 87186; 87631; 93005; 94002; 96361; 96365; 96366; 96368; 99252; 99285; P9016; Q9967; A4216; G0463

== ENCOUNTER 2024-08-26 14:02 | Inpatient (IN) | payer MEDICARE, MEDICAID, SELFPAY ==
[2024-08-26] VITALS (8 sets, daily range): BP systolic 131–157; BP diastolic 74–96; PULSE 87–120; RESP 15–27; TEMP 36.6–36.9; O2SAT 92–100; BMI 25.4; BMI 24.9
--- NOTE | 2024-08-26 14:39 | EX.ED.DYSGE1 ---
HPI History of Present Illness Chief Complaint: GI Bleed Informant: patient Onset/Context/Timing Onset: Today Context: Gradual Onset Timing: Continuous Quality: Aching, burning, sharp Location: Left upper quadrant Worsened by: Nothing Relieved by: Nothing Narrative Narrative: Patient presents with nausea and vomiting that became worse today. Patient states she has been having some vomiting for the past few months. Patient states that she has been vomiting up coffee-ground emesis today. Patient admits to some left upper quadrant abdominal pain. Patient describes it as aching, burning, and sharp. Patient states nothing makes it worse and nothing makes it better. Patient denies any diarrhea, melena, or hematochezia. Patient does admit to a cough. Patient denies any urinary complaints. Patient admits to drinking alcohol. PFSH PFSH Medical History Migraines Difficulty walking Urge incontinence Acute cystitis with hematuria Muscle weakness Osteoarthritis Alcoholic hepatitis Alcoholic liver disease Acute respiratory failure with hypoxia Metabolic encephalopathy Major depression Protein calorie malnutrition Acute post-hemorrhagic anemia Dysphagia, oropharyngeal phase Malignant neoplasm of colon Ulcer Restless legs Injury of head and neck Anemia Alcohol abuse Bipolar disorder Hypothyroidism Osteoporosis Kidney stones GERD (gastroesophageal reflux disease) GI bleed Former smoker Home Medications ?Medication ?Instructions ?Recorded ?Last Taken ?Type calcium carbonate (Tums) 200 mg PO BID PRN dyspepsia 07/23/24 Unknown History cholecalciferol (vitamin D3) 1,250 1,250 mcg PO 2XW 07/23/24 Unknown History mcg (50,000 unit) capsule cyanocobalamin (vitamin B-12) 1,000 mcg IM QMONTH 07/23/24 Unknown History 1,000 mcg/mL injection solution folic acid 1 mg tablet 1 mg PO QDAY 07/23/24 Unknown History ipratropium 0.5 mg-albuterol 3 mg 3 ml inhalation Q4H PRN shortness 07/23/24 Unknown History (2.5 mg base)/3 mL nebulization of breath soln lidocaine 4 % topical gel 1 applic topical HS 07/23/24 Unknown History magnesium glycinate 100 mg (as 100 mg PO BID 07/23/24 Unknown History glycinate) tablet (Mag Glycinate) magnesium oxide 400 mg PO QDAY 07/23/24 Unknown History pantoprazole 40 mg tablet,delayed 40 mg PO BID GERD 07/23/24 Unknown History release prednisone 50 mg tablet 50 mg PO QDAY 07/23/24 Unknown History thiamine HCl (vitamin B1) 100 mg 100 mg PO QDAY 07/23/24 Unknown History tablet venlafaxine 37.5 mg 37.5 mg PO QDAY 07/23/24 Unknown History capsule,extended release 24 hr zinc oxide 20 % topical paste 1 ea topical Q8H PRN skin 07/23/24 Unknown History irritation Allergy/AdvReac Type Severity Reaction Status Date / Time amoxicillin Allergy Intermediate Swelling, Verified 08/26/24 14:11 itching Family History (Updated 08/26/24 @ 19:[address] Tiff Ramires MD) Mother Alcohol abuse CAD (coronary artery disease) Heart disease Hypertension Myocardial infarction Father Alcohol abuse Cancer Surgical History History of total knee arthroplasty History of right hip replacement H/O total hysterectomy Social History (Updated 08/26/24 @ 19:[address] Tiff Ramires MD) household members: none Smoking Status: Never smoker alcohol intake: current alcohol intake frequency: 3 or more drinks per day details: Notes binge drinking, whiskey. substance use type: other details: Former cannabis usage. Stopped ~ 40 years ago. ROS ROS ED Constitutional Constitutional ED: Denies chills or fever(s) Eyes Eyes: Denies blurry vision or change in vision ENT ENT ED: Denies rhinorrhea or sore throat Cardiovascular Cardiovascular: Denies chest pain or palpitations Respiratory/Chest Respiratory/Chest: Reports cough; Denies dyspnea Gastrointestinal Gastrointestinal: Reports abdominal pain, nausea and vomiting Genitourinary Genitourinary ED: Denies dysuria or hematuria Musculoskeletal Musculoskeletal: Reports back pain; Denies neck pain Integumentary Denies abscess or rash Neurologic Neurologic: Denies headache(s) or weakness Allergic/Immunologic Allergic/Immunologic ED: Denies mouth swelling or urticaria EXAM Physical Exam Const Vital Signs: 08/26/24 16:11 08/26/24 18:00 Pulse Rate 87 114 H Respiratory Rate 15 25 H Blood Pressure 157/96 H 131/78 H Blood Pressure Mean 116 95 Pulse Ox 98 92 Oxygen Delivery Method Room Air Room Air Positive well nourished and well developed General Appearance ED: well developed and NAD HEENT Reports moist mucous membranes Neck supple Resp normal respiratory effort and clear to auscultation bilaterally Cardio regular rate and regular rhythm GI non-distended Palpation: soft and tender LUQ; Negative for guarding or rebound tenderness present Extremity normal to inspection General Extremety ED: Negative for edema or tenderness General Extremity: Negative for edema Neuro oriented x3, CN's II-XII intact bilaterally and no sensory deficits noted Sensorium / Orientation: alert Motor Exam: strength 5/5 throughout Psych mental status grossly normal MDM MDM MDM Narrative Medical decision making narrative: Differential diagnosis includes but is not limited to gastrointestinal bleeding, alcoholic gastritis, pancreatitis, cholecystitis, cholelithiasis, anemia, and electrolyte abnormality. CBC will be obtained to assess for leukocytosis and anemia. Comprehensive metabolic profile will be obtained to assess for hepatic function, renal function, and electrolyte abnormality. Lipase will be obtained to assess for pancreatitis. PT with INR and PTT will be obtained to assess for coagulopathy. Urinalysis will be obtained to assess for urinary tract infection and hematuria. CT scan of the abdomen and pelvis will be obtained to assess for bowel obstruction and perforation. Lab Data Attestation: I reviewed the patient's lab results. Lab results narrative: CBC was reviewed. There is a mild leukocytosis of 12.4. Hemoglobin was stable at 13.6 and hematocrit of 40.9. Platelets were slightly elevated at 505. PT with INR and PTT were reviewed. Pro time was 15.2 and INR is 1.2. Comprehensive metabolic profile was reviewed. Potassium was low at 2.6. Chloride was slightly low at 95. Glucose was slightly elevated at 150. Alkaline phosphatase was slightly elevated at 180. AST was slightly elevated at 39. Lipase was reviewed and was normal at 28. Serum alcohol level was reviewed and was elevated 279. Urinalysis was reviewed. Leukocyte esterase was 500 with positive nitrites. Labs: Laboratory Results - last 24 hr 08/26/24 08/26/24 14:30 17:29 WBC 12.8 H RBC 4.50 Hgb 13.6 Hct 40.9 MCV 90.9 MCH 30.2 MCHC 33.3 RDW Std Deviation 47.0 H RDW Coeff of Angelo 14.2 Plt Count 505 H MPV 9.0 Immature Gran % (Auto) 0.500 Neut % (Auto) 48.6 Lymph % (Auto) 42.1 H [place] % (Auto) 6.6 Eos % (Auto) 1.5 Baso % (Auto) 0.7 Absolute Neuts (auto) 6.2 Absolute Lymphs (auto) 5.38 H Nucleated RBC % 0 Platelet Estimate MOD INC PT 15.2 H INR 1.2 APTT 29.5 Sodium 140 Potassium 2.6 L* Chloride 95 L Carbon Dioxide 21.5 Anion Gap 23 H BUN 6 Creatinine 0.69 L Estim Creat Clear Calc 80.90 Est GFR (MDRD) Non-Af 96 BUN/Creatinine Ratio 8.3 L Glucose 150 H Calcium 10.0 Phosphorus 5.0 H Magnesium 1.4 L Total Bilirubin 0.28 AST 39 H ALT 21 Alkaline Phosphatase 180 H Total Protein 7.1 Albumin 3.3 L Globulin 3.9 Albumin/Globulin Ratio 0.8 L Lipase 28 Urine Color Yellow Urine Clarity Cloudy Urine pH 6.0 Ur Specific [place] 1.015 Urine Protein 30 H Urine Glucose (UA) Normal Urine Ketones Negative Urine Occult Blood 25 H Urine Nitrite Positive H Urine Bilirubin Negative Urine Urobilinogen Normal Ur Leukocyte Esterase 500 H Urine RBC 0-5 SEEN Urine WBC >100 SEEN Ur Squamous Epith Cells 0-5 SEEN Ur Transition Epith Cell 0-5 SEEN Urine Bacteria 3+ Urine Mucus 0 SEEN Ethyl Alcohol 279.0 H Blood Type O POSITIVE Antibody Screen NEGATIVE Radiography Diagnostic Testing: Clinical Impression(s) from Imaging Studies Abdomen/Pelvis CT 08/26/24 15:09 IMPRESSION: 1. Correlate for trace pancreatitis. Similar 12 mm calculus either within or adjacent to the main pancreatic duct with upstream pancreatic ductal dilatation. Given ductal dilatation, recommend clinical follow-up including outpatient pancreatic protocol MRI with and without contrast and with MRCP. 2. Findings suggest cystitis. Correlate with urinalysis. 3. Hiatal hernia with redemonstrated minimally imaged moderate to marked esophageal wall thickening suggesting esophagitis, better seen previously. Unable to exclude underlying neoplasm. Recommend clinical follow-up to exclude this possibility. 4. Distended gallbladder with cholelithiasis. No convincing inflammation. If there is concern, consider RIGHT upper quadrant ultrasound and/or HIDA. 5. Mild wall thickening versus underdistention of the descending and rectosigmoid colon. Correlate for very mild colitis. No adjacent inflammatory changes to confirm this. 6. Enlarged appendix without convincing adjacent inflammation to confirm acute appendicitis. Correlation with presentation and exam is necessary. This could reflect backwash inflammation related to colitis, if present. 7. Increased nonspecific stranding in the LEFT flank and bilateral gluteal regions. Correlate with exam for clinical evidence of cellulitis or possible contusion given an appropriate history of trauma. 8. 3.8 cm LEFT adnexal cyst, incompletely characterized by CT. Given the patient is postmenopausal, recommend outpatient pelvic ultrasound for more definitive characterization. 9. Hepatic steatosis has improved slightly. Correlate with clinical and laboratory evidence of chronic liver disease. 10. Additional description as above. Reading Location: [id number] Hip/Pelvis X-Ray 08/26/24 18:16 IMPRESSION: No acute fracture. Postop changes as described above. Severe narrowing of the left hip joint. [facility] the abdomen pelvis was obtained. There is questionable trace pancreatitis. There is a distended gallbladder and cholelithiasis. There is no evidence of inflammation or cholecystitis. There is wall thickening of the descending and rectosigmoid colon. This was interpreted by the radiologist was also independently reviewed by myself. Management Discussion w/another healthcare provider: Hospitalist and slag production worker/Case management Treatment and Re-Evaluation :: Patient was given IV fluids. Patient was ordered oral potassium but was unable to tolerate this. Patient was given Zofran. Patient was given IV potassium. Patient was given a dose of Protonix. Patient was given a dose of Rocephin. Case was discussed with the hospitalist. She will admit the patient to her service. On reevaluation, patient was complaining of pain in her left hip. X-rays of the left hip will be obtained to assess for fracture or dislocation. Clinically, I do not feel there is a fracture or dislocation of her hip. Patient understood and was agreeable with the plan. All questions were answered. Discharge Plan Dx/Rx/DC Orders Clinical Impression: Upper GI bleed, Urinary tract infection, Alcohol intoxication Disposition Disposition: Acute Care Hospital [facility] Discharge Date/Time: 08/26/24 22:08
--- NOTE | 2024-08-26 15:09 | CT_ITS ---
PROCEDURE: ABDOMEN/PELVIS W IV CONT ONLY 08/26/2024 REASON FOR EXAM: ABDOMINAL PAIN TECHNIQUE: Abdomen and pelvis CT with intravenous contrast. Coronal and Sagittal reconstruction series were provided. PATIENT PREPARATION: Per protocol ORAL CONTRAST TYPE: None. CONTRAST: Isovue-300 VOLUME: 75 mL One or more dose reduction techniques were used (e.g., Automated exposure control, adjustment of the mA and/or kV according to patient size, use of iterative reconstruction technique. RADIATION DOSE SUMMARY: CTDlvol: 6.65+ 26.77 mGy DLP: 1404.57 mGycm COMPARISON: 06/13/2024 FINDINGS: Pelvis partially obscured by streak artifact related to bilateral femoral orthopedic hardware. Moderate motion limitation through the lung bases greater than he far upper abdomen. Lung bases: Atelectasis/scarring. Minimally imaged distal most esophageal wall thickening. Small hiatal hernia.. Trace mitral annular calcification. Liver: Steatosis has improved slightly. Granulomas. Spleen: Granulomas.. Gallbladder: Distended gallbladder with cholelithiasis. No convincing inflammation. Pancreas: Atrophic. Similar ductal dilatation to 6 mm at the neck. Similar 12 mm intraductal versus parenchymal calculus in the head. Trace stranding along the pancreatic head/uncinate process. Adrenals: Atrophic. Kidneys: Lobulated contours. Punctate nonobstructing intrarenal calculus on the LEFT measures roughly 1-2 mm.. Bowel: Minimal diverticulosis. Minimal rectosigmoid and descending colonic wall thickening may be related to underdistention. Appendix enlarged to 14 mm without convincing adjacent inflammation. Intramural fat deposition within the marroquin of the appendix and cecum, nonspecific, but can be seen in the setting of obesity or chronic inflammation. Lymph nodes: Unremarkable. Vasculature: Trace atherosclerosis.. Peritoneum: Unremarkable. Bladder: Bladder wall thickening slightly disproportionate to underdistention with mucosal hyperemia. Reproductive Organs: Hysterectomy. 3.8 x 2.8 cm LEFT adnexal cyst. Body Wall: Increased nonspecific stranding in the LEFT flank and bilateral gluteal regions. Tiny fat containing umbilical hernia.. Bones: Demineralization. Multilevel spondylosis. Partially imaged RIGHT hip arthroplasty and intramedullary hardware in the LEFT femur. Severe end-stage degenerative changes of the LEFT hip with dysmorphic appearance.. Mild scoliosis. CT/Abdomen/Pelvis W IV Cont ONLY IMPRESSION: 1. Correlate for trace pancreatitis. Similar 12 mm calculus either within or a djacent to the main pancreatic duct with upstream pancreatic ductal dilatation. Given ductal dilatation, recommend clinical foll ow-up including outpatient pancreatic protocol MRI with and without contrast and with MRCP. 2. Findings suggest cystitis. Correlate with urinalysis. 3. Hiatal hernia with redemonstrated minimally imaged moderate to marked esopha geal wall thickening suggesting esophagitis, better seen previously. Unable to exclude underlying neoplasm. Recommend clin ical follow-up to exclude this possibility. 4. Distended gallbladder with cholelithiasis. No convincing inflammation. If t here is concern, consider RIGHT upper quadrant ultrasound and/or HIDA. 5. Mild wall thickening versus underdistention of the descending and rectosigmo id colon. Correlate for very mild colitis. No adjacent inflammatory changes to confirm this. 6. Enlarged appendix without convincing adjacent inflammation to confirm acute appendicitis. Correlation with presentation and exam is necessary. This could reflect backwash inflammation related to colitis , if present. 7. Increased nonspecific stranding in the LEFT flank and bilateral gluteal vishal ons. Correlate with exam for clinical evidence of cellulitis or possible contusion given an appropriate history of trauma. 8. 3.8 cm LEFT adnexal cyst, incompletely characterized by CT. Given the patie nt is postmenopausal, recommend outpatient pelvic ultrasound for more definitive characterization. 9. Hepatic steatosis has improved slightly. Correlate with clinical and labora tory evidence of chronic liver disease. 10. Additional description as above. Reading Location: [id number]
[2024-08-26] MEDS: Ondansetron 4 MG/2 ML Vial IV ×2 (15:28→17:10)
[2024-08-26] MEDS: 0.9% Normal Saline (1000mL) 1,000 ML 999 ML IV (15:28)
[2024-08-26 15:34] LABS: Absolute Lymphocyte Count 5.38 X10^3/uL (0.83-4.51); Absolute Neutrophil Count 6.2 X10^3/uL (2.0-7.7); Basophil# 0.09 X10^3/uL; Basophil% 0.7 % (0-1); Eosinophil# 0.19 X10^3/uL; Eosinophils% 1.5 % (0-5); Hematocrit 40.9 % (37-47); Hemoglobin 13.6 g/dL (12.0-15.0); Lymphocyte # 5.38 X10^3/ul (0.83-4.51); Lymphocyte % 42.1 % (19-41); Mean Corp Hgb Conc 33.3 g/dL (32-36); Mean Corpuscular Hgb 30.2 pg (27.0-32.0); Mean Corpuscular Volume 90.9 fL (81-99); Monocyte# 0.84 X10^3/uL; Monocyte% 6.6 % (0-10); NRBC Flagged by Analyzer 0 % (0-5); Neutrophil # 6.22 X10^3/uL (2.7-7.7); Neutrophil % 48.6 % (47-70); POSITIVE DIFFERENTIAL YES; POSITIVE MORPHOLOGY YES; Platelet Count 505 K/mm3 (150-450); RBC Distribution Width CV 14.2 % (11.6-14.6); White Blood Count 12.8 K/mm3 (4.4-11.0)
[2024-08-26 15:35] LABS: Differential Indicated SCAN CRITERIA MET
[2024-08-26 15:43] LABS: International Normalized Ratio 1.2; Prothrombin Time (Protime)PT. 15.2 SECONDS (11.7-14.9)
[2024-08-26 15:45] LABS: Partial Thromboplast Time 29.5 Seconds (24.1-36.2)
[2024-08-26 16:18] LABS: Lipase 28 U/L (13-75)
[2024-08-26 16:22] LABS: ALB/GLOB Ratio 0.8 RATIO (0.9-2.4); AST(SGOT) 39 U/L (<=31); Alanine Aminotransfer ALT/SGPT 21 U/L (<=34); Albumin, Serum 3.3 g/dL (3.4-4.8); Alkaline Phosphatase 180 U/L (35-104); Anion Gap 23 (5-15); BUN 6 mg/dL (4-19); BUN/Creat Ratio 8.3 RATIO (10-20); Carbon Dioxide 21.5 mmol/L (21.0-32.0); Chloride 95 mmol/L (98-108); Creatinine, Serum 0.69 mg/dL (0.70-1.20); EST Glomerular Filtration Rate 96 (>60); Globulin 3.9 g/dL (2.2-4.2); Glucose 150 mg/dL (70-99); Potassium 2.6 mmol/L (3.3-5.1); Protein, Total 7.1 g/dL (5.9-8.4); Sodium Level 140 mmol/L (133-145); Total Bilirubin 0.28 mg/dL (0.00-1.30)
[2024-08-26 17:06] LABS: Platelet Estimate MOD INC (ADEQ)
[2024-08-26] MEDS: Pantoprazole Sodium 80 MG in 0.9% Normal Saline (50mL Bag) 15 ML 420 MG IV BOLUS (17:26)
[2024-08-26 17:39] LABS: Mucous, Urine 0 SEEN /hpf (<or=2+)
[2024-08-26 17:42] LABS: Color, Urine Yellow (Yellow); Glucose, Dipstick Normal (Normal); Ketone-Dipstick Negative (Negative); Leukocyte Esterase-Dipstick 500 /ul (Negative); Nitrite-Dipstick Positive (Negative); Occult Blood-Urine 25 /ul (Negative); Protein-Dipstick 30 mg/dl (Negative); Specific Gravity, Urine 1.015 (1.002-1.030); Urine Bilirubin Dipstick Negative (Negative); Urine Clarity Cloudy (Clear); Urine Urobilinogen Normal (Normal)
[2024-08-26] MEDS: Potassium Chloride 10mEq/100mL 10 MEQ/100 ML IV.SOLN. 100 MEQ IV BOLUS ×2 (17:50→18:58)
--- NOTE | 2024-08-26 18:16 | RAD_ITS ---
PROCEDURE: HIP, UNI W/ PELVIS 2-3 VIEWS 08/26/2024 REASON FOR EXAM: INJURY/PAIN TECHNIQUE: 3 view(s) of the left hip including the pelvis. COMPARISON: 06/10/2022 FINDINGS: Bones: Status post right hip arthroplasty and status post ORIF of the left hip. No acute fracture or dislocation is demonstrated. Degenerative changes of the bilateral sacroiliac joints. Joints: Severe narrowing of the left hip joint. Soft tissues: Unremarkable Other: RAD/HIP, UNI W/ Pelvis 2-3 Views IMPRESSION: No acute fracture. Postop changes as described above. Severe narrowing of the left hip joint. Reading Location: [facility]
--- NOTE | 2024-08-26 18:32 | HP.PCM.HOS_ITS ---
HPI - General General Date of Admission: 08/26/24 Date of Service: 08/26/24 Chief Complaint: N/V, coffee ground emesis, abdominal pain. HPI Narrative The patient is a 63 y/o F w/ PMHx: Chronic alcoholic liver disease/chronic alcoholic hepatitis, Severe protein calorie malnutrition, GERD w/ Hx GI bleed, Anxiety and Depression/Bipolar disorder, Hypothyroidism, Former tobacco use, Chronic oropharyngeal phase dysphagia who presents to the [facility] ED on 08/26/24 with history of intermittent episodes of nausea and emesis over the last several months however worse over the last 24 hours with onset of coffee-ground emesis with associated left upper quadrant abdominal pain described as aching, burning and sharp intermittently with nothing making it better or worse with no recent diarrhea, melanotic stools or hematochezia with mild recent cough and no specific urinary complaints but significant fatigue and malaise with ongoing alcohol abuse prompting eventual ED evaluation. In regard to urinary symptoms she does report urinary frequency and some urgency. Workup in the ED included T98.1, heart rate 118, BP 139/81, respiratory rate 19, 97% on room air with most recent repeat vitals heart rate 87, BP 157/96, respiratory rate 15, 98% on room air, CBC with WBC 12.8, hemoglobin 13.6, MCV 90.9, platelet 505 with lymphocytosis, coags unremarkable aside PT 15.2, CMP with potassium 2.6, chloride 95, anion gap 23, BUN/creatinine 6/0.69, GFR 96, glucose 150, hepatic profile with T. bili 0.28, AST/ALT 39/21, alk phos 180 otherwise not marked appearing, urinalysis with cloudy appearing urine, specific gravity 1.015, protein 30, occult blood 25, positive nitrite, leukocyte esterase 500, Ethyl alcohol 279, CT abdomen and pelvis with possible trace pancreatitis, similar 12 mm calculus at there within her adjacent to the main pancreatic duct with upstream pancreatic ductal dilatation, findings suggestive of cystitis, hiatal hernia with re-demonstrated minimally imaged moderate to marked esophageal wall thickening suggestive of esophagitis, distended gallbladder with cholelithiasis with no evidence of inflammation, mild wall thickening versus underdistention of the descending and rectosigmoid colon, enlarged appendix without convincing adjacent inflammation to confirm acute appendicitis, increased nonspecific stranding in the left flank and bilateral gluteal regions, 3.8 cm left adnexal cyst incompletely characterized, hepatic steatosis with evidence of chronic liver disease. In the ED patient ministered 1 L normal saline, Zofran 4 mg IV x 2, potassium 20 mill equivalent IV x 1 as well as oral potassium 40 mill equivalent p.o. x 1 in addition to Protonix 80 mg IV bolus x 1. Discussed patient with ED and she will also be administered IV rocephin. PFSH Medical History Difficulty walking Urge incontinence Acute cystitis with hematuria Muscle weakness Osteoarthritis Alcoholic hepatitis Alcoholic liver disease Acute respiratory failure with hypoxia Metabolic encephalopathy Major depression Protein calorie malnutrition Acute post-hemorrhagic anemia Dysphagia, oropharyngeal phase Malignant neoplasm of colon Ulcer Restless legs Injury of head and neck Anemia Alcohol abuse Bipolar disorder Hypothyroidism Osteoporosis Kidney stones GERD (gastroesophageal reflux disease) GI bleed Former smoker Home Medications ?Medication ?Instructions ?Recorded ?Last Taken ?Type calcium carbonate (Tums) 200 mg PO BID PRN dyspepsia 07/23/24 Unknown History cholecalciferol (vitamin D3) 1,250 1,250 mcg PO 2XW Unknown History mcg (50,000 unit) capsule cyanocobalamin (vitamin B-12) 1,000 mcg IM QMONTH 07/12 07/08 Unknown History 1,000 mcg/mL injection solution folic acid 1 mg tablet 1 mg PO QDAY 07/23/24 Unknow n History ipratropium 0.5 mg-albuterol 3 mg 3 ml inhalation Q4H PRN shortness 07/23/24 Unknown History (2.5 mg base)/3 mL nebulization of breath soln lidocaine 4 % topical gel 1 applic topical HS 07/23/24 Unknown History magnesium glycinate 100 mg (as 100 mg PO BID 07/23/24 Unknown History glycinate) tablet (Mag Glycinate) magnesium oxide 400 mg PO QDAY 07/23/24 Unkn own History pantoprazole 40 mg tablet,delayed 40 mg PO BID GERD Unknown History release prednisone 50 mg tablet 50 mg PO QDAY 07/23/24 Unkno wn History thiamine HCl (vitamin B1) 100 mg 100 mg PO QDAY Unknown History tablet venlafaxine 37.5 mg 37.5 mg PO QDAY 07/23/24 Unk nown History capsule,extended release 24 hr zinc oxide 20 % topical paste 1 ea topical Q8H PRN ski n 07/23/24 Unknown History irritation Allergy/AdvReac Type Severity Reaction Status Date / Time amoxicillin Allergy Intermediate Swelling, Verified 08/26/24 14:11 itching Family History (Updated 08/26/24 @ 19:[address] Tiff Ramires MD) Mother Alcohol abuse CAD (coronary artery disease) Heart disease Hypertension Myocardial infarction Father Alcohol abuse Cancer Surgical History History of total knee arthroplasty History of right hip replacement H/O total hysterectomy Social History (Updated 08/26/24 @ 19:[address] Tiff Ramires MD) household members: none Smoking Status: Never smoker alcohol intake: current alcohol intake frequency: 3 or more drinks per day details: Notes binge drinking, whiskey. substance use type: other details: Former cannabis usage. Stopped ~ 40 years ago. ROS ROS Narrative Admission Review of Systems: CONSTITUTIONAL: No weight loss, fever, chills, + weakness or fatigue. HEENT: Eyes: No visual loss, blurred vision, double vision or yellow sclerae. Ears, Nose, Throat: No hearing loss, sneezing, congestion, runny nose or sore throat. SKIN: No rash or itching, lesions, wounds. CARDIOVASCULAR: No chest pain, chest pressure or chest discomfort, palpitations, edema, orthopnea, syncopal events. RESPIRATORY: No shortness of breath, cough or sputum, wheezing, hemoptysis. GASTROINTESTINAL: + anorexia, nausea, vomiting, abdominal pain, coffee diarrhea, abdominal pain. No melena, BRBPR. GENITOURINARY: + Increased urinary frequency, urgency. No no dysuria, retention. NEUROLOGICAL: No headache, dizziness, syncope, paralysis, ataxia, numbness or tingling in the extremities, focal weakness, change in bowel or bladder control, seizure. MUSCULOSKELETAL: + muscle, back pain, joint pain or stiffness. HEMATOLOGIC: + Chronic anemia, easy history of bleeding/bruising. LYMPHATICS: No enlarged nodes. No history of splenectomy. PSYCHIATRIC: + History of Anxiety and Depression/Bipolar disorder. ENDOCRINOLOGIC: No reports of sweating, cold or heat intolerance. No polyuria or polydipsia. ALLERGIES: No history of asthma, hives, eczema or rhinitis. Vital Signs Vital Signs Vital Signs: 08/26/24 14:11 08/26/24 14:26 08/26/24 16:11 Temperature 98.1 F Temperature Source Oral Pulse Rate 118 H 87 Respiratory Rate 19 H 15 Respiratory Pattern Normal Blood Pressure 139/81 H 157/96 H Blood Pressure Mean 100 116 Pulse Ox 97 98 Oxygen Delivery Method Room Air Room Air 08/26/24 18:00 Temperature Temperature Source Pulse Rate 114 H Respiratory Rate 25 H Respiratory Pattern Blood Pressure 131/78 H Blood Pressure Mean 95 Pulse Ox 92 Oxygen Delivery Method Room Air Weight Weight: 188 lb 0.869 oz Body Mass Index (BMI) 25.4 Physical Exam Narrative Physical Examination: General: Awake, alert, oriented x 3 and cooperative, seated upright in the ED bed in no apparent distress, fatigued appearing. Skin: Normal color, normal turgor, no icterus, no cyanosis except for occasional stage ecchymoses, abrasions HEENT: AT/NC, EOMI, PERRLA, mildly dry MM, no carotid bruits or JVD noted. Lungs: Mildly diminished, greater bases, mild increased respiratory rate but no distress, no rales, ronchi or wheezing. Heart: Mildly tachycardic rate rhythm; no gallop, rub audible. Abdomen: Soft, mild generalized discomfort to palpation, worse in the epigastric and bilateral upper quadrants with no rebound or guarding, hyperactive BS, no distention, discerned HM. Extremities: No cyanosis, clubbing, or edema. Neurological: Patient awake, alert, oriented as noted, cognitive function intact; pupils equally reactive to light and accommodation, cranial nerves grossly normal, moving all 4 extremities, no focal deficits, strength severely global decrease secondary to acute presentation Psychiatric: Affect appears fatigued, no acute evidence of depressive or anxiety feelings but does have underlying history. Results Lab / Micro Data 08/26/24 14:30 08/26/24 14:30 Labs: Laboratory Results - last 24 hr 08/26/24 14:30: WBC 12.8 H, RBC 4.50, Hgb 13.6, Hct 40.9, MCV 90.9, MCH 30.2, MCHC 33.3, RDW Std Deviation 47.0 H, RDW Coeff of Angelo 14.2, Plt Count 505 H, MPV 9.0, Immature Gran % (Auto) 0.500, Neut % (Auto) 48.6, Lymph % (Auto) 42.1 H, [place] % (Auto) 6.6, Eos % (Auto) 1.5, Baso % (Auto) 0.7, Absolute Neuts (auto) 6.2, Absolute Lymphs (auto) 5.38 H, Nucleated RBC % 0, Platelet Estimate MOD INC, PT 15.2 H, INR 1.2, APTT 29.5, Sodium 140, Potassium 2.6 L*, Chloride 95 L, Carbon Dioxide 21.5, Anion Gap 23 H, BUN 6, Creatinine 0.69 L, Estim Creat Clear Calc 80.90, Est GFR (MDRD) Non-Af 96, BUN/Creatinine Ratio 8.3 L, Glucose 150 H, Calcium 10.0, Total Bilirubin 0.28, AST 39 H, ALT 21, Alkaline Phosphatase 180 H , Total Protein 7.1, Albumin 3.3 L, Globulin 3.9, Albumin/Globulin Ratio 0.8 L, Lipase 28, Ethyl Alcohol 279.0 H 08/26/24 17:29: Urine Color Yellow, Urine Clarity Cloudy, Urine pH 6.0, Ur Specific [place] 1.015, Urine Protein 30 H, Urine Glucose (UA) Normal, Urine Ketones Negative, Urine Occult Blood 25 H, Urine Nitrite Positive H, Urine Bilirubin Negative, Urine Urobilinogen Normal, Ur Leukocyte Esterase 500 H Imaging Radiology Impression Abdomen/Pelvis CT 08/26/24 15:09 IMPRESSION: 1. Correlate for trace pancreatitis. Similar 12 mm calculus either within or adjacent to the main pancreatic duct with upstream pancreatic ductal dilatation. Given ductal dilatation, recommend clinical follow-up including outpatient pancreatic protocol MRI with and without contrast and with MRCP. 2. Findings suggest cystitis. Correlate with urinalysis. 3. Hiatal hernia with redemonstrated minimally imaged moderate to marked esophageal wall thickening suggesting esophagitis, better seen previously. Unable to exclude underlying neoplasm. Recommend clinical follow-up to exclude this possibility. 4. Distended gallbladder with cholelithiasis. No convincing inflammation. If there is concern, consider RIGHT upper quadrant ultrasound and/or HIDA. 5. Mild wall thickening versus underdistention of the descending and rectosigmoid colon. Correlate for very mild colitis. No adjacent inflammatory changes to confirm this. 6. Enlarged appendix without convincing adjacent inflammation to confirm acute appendicitis. Correlation with presentation and exam is necessary. This could reflect backwash inflammation related to colitis, if present. 7. Increased nonspecific stranding in the LEFT flank and bilateral gluteal regions. Correlate with exam for clinical evidence of cellulitis or possible contusion given an appropriate history of trauma. 8. 3.8 cm LEFT adnexal cyst, incompletely characterized by CT. Given the patient is postmenopausal, recommend outpatient pelvic ultrasound for more definitive characterization. 9. Hepatic steatosis has improved slightly. Correlate with clinical and laboratory evidence of chronic liver disease. 10. Additional description as above. Reading Location: [id number] Assessment & Plan Assessment/Plan (1) GI bleed: PLAN: Plan The patient is a 63 y/o F w/ PMHx: Chronic alcoholic liver disease/chronic alcoholic hepatitis, Severe protein calorie malnutrition, GERD w/ Hx GI bleed, Anxiety and Depression/Bipolar disorder, Hypothyroidism, Former tobacco use, Chronic oropharyngeal phase dysphagia who presents to the [facility] ED on 08/26/24 with history of intermittent episodes of nausea and emesis over the last several months however worse over the last 24 hours with onset of coffee-ground emesis with associated left upper quadrant abdominal pain described as aching, burning and sharp intermittently with nothing making it better or worse with no recent diarrhea, melanotic stools or hematochezia with mild recent cough and no specific urinary complaints but significant fatigue and malaise with ongoing alcohol abuse prompting eventual ED evaluation. #1. Acute GI Bleed with history of chronic anemia, currently hemoglobin 13.6, MCV 90.9 thus improved from prior with underlying alcohol abuse, chronic alcoholic hepatitis: Admission hemoglobin 13.6, MCV 90.9, not severely decreased but does have persistent nausea and emesis with coffee-ground emesis now, will admit to [place] tele given stable vital sign, maintain on IVFs, obtain serial H+H q 6 hours, maintain on maintain on continuous IV PPI. Given patient is cirrhotic will place on prophylaxis w/ rocephin. GI consulted, evaluation pending. Will allow clears in the interim with n.p.o. status at midnight. #2. Acute Urinary Tract Infection: Will admit to [place], CT abdomen pelvis with findings consistent with urinary tract infection in addition to UA upon ED evaluation remarkable, pending UCx, will continue IVFs, monitor I/Os, continue IV Rocephin w/ transition as able pending sensitivities and speciation. #3. Hyperglycemia: Noted elevated blood sugar upon arrival, 150, no diabetic history, likely related with acute presentation, stress response, alcohol abuse history, will obtain hemoglobin A1c to be cautious. #4. Chronic oropharyngeal phase dysphagia with incidentally noted CT findings concerning for esophagitis, underlying GERD: CT with redemonstrated minimally imaged moderate to marked esophageal wall thickening suggestive of esophagitis, will maintain on PPI as noted, GI consulted and following. #5. Hypokalemia: Admission K+ 2.6, magnesium level requested, supplementation given, repeat level in AM. #6. 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 #7. Chronic Kidney Disease Stage II per previous GFR trending although has vacillated: Admission BUN/Cr 6/0.69, GFR 96 however previously primarily consistent with stage II, baseline renal function primarily 0.7-0.9 but has vacillated, did have presentation recently in May and had acute kidney injury at that time, appears resolved, repeat BMP in AM. #8. EtOH Abuse: Patient notes routine consumption of binge drinking whiskey unfortunately because she cannot determine the amount she drinks daily but says she drinks at least half a gallon and a handful of days. Will maintain on CIWA protocol, MVI, thiamine and folic acid. Patient notes intention of continued EtOH usage. Will continue to monitor and if necessary low threshold to transition to taper protocol. Mag and Phos levels requested. #9. Anxiety and depression/bipolar disorder: Will continue patient home venlafaxine regimen, would benefit from mood stabilizer also given underlying bipolar history, encourage follow-up outpatient with PCP/psychiatry/psychology as previously arranged. Prior records show that patient in the past had been on Depakote but it has not been filled for some time. #10. Hypothyroidism: Noted chart reported history, per current list not on any supplementation, clarifying to be certain, TSH and free T4 will be requested to be cautious. #11. Severe protein calorie malnutrition: Evidenced by habitus, muscle and fat loss, significant underlying comorbidities including alcohol abuse, nutrition consulted. #12. Former tobacco use: Encourage continued tobacco cessation. #13. GERD: As noted will maintain on IV Protonix. #14. DVT prophylaxis: SCDs. #15. CODE status: Patient ABDI is her sister and living will is currently in place. Discussed CODE status at length including difference between FULL code, DNR-CCA and DNR-CC status. Following discussions about the differences in these status, requested Full Code status. Advanced Care Planning Face to Face Time: 16 minutes. Charges/Coding Visit Charges Inpatient E&M: 90421 Init Hosp L3 Procedures Hospitalists Procedures: 79724 Advncd Care Plan 30 Min
[2024-08-26 18:33] LABS: Bacteria 3+ /hpf (None Seen)
[2024-08-26 18:34] LABS: Squamous Epithelial Cells - UA 0-5 SEEN /hpf (5-10); Transitional Epithelial - Ur 0-5 SEEN /hpf (0-5); White Blood Cells >100 SEEN /hpf (0-5)
[2024-08-26 18:35] LABS: Red Blood Cells-Urine 0-5 SEEN /hpf (0-5)
--- NOTE | 2024-08-26 19:01 | CM.ED ---
Social work Per Dolores ESPINAL, EMS was requesting an APS referral be made due to garbage being around the house, gnats flying everywhere, and the house being in deplorable condition. Patient was reportedly drunk upon presentation to [facility] ED. According to Dolores ESPINAL, patient's home health group called in (through [employer]) and stated patient has been door dashing whiskey, refused to be cleaned up when feces was clearly on patient, and called the director of [employer] at midnight arguing about the care patient was receiving. Another SW reportedly received a call today from patient's sister, Jo, claiming to be HCPOA. Jo reportedly stated patient is a problem child and is difficult to manage while under the influence. Patient admitted to acute prior to SW being able to follow up with patient in the ED due to SW handling other situations. Plan: admission to acute; RNCM/SW team to follow for discharge planning needs. APS referral to be made at discharge. Mone Zarate, STITCH BONDING MACHINE TENDER HELPER, PLUMBING AND HEATING CONTRACTOR
[2024-08-26 19:20] LABS: Magnesium 1.4 mg/dL (1.5-2.2)
[2024-08-26] MEDS: Ceftriaxone 1 GM/50 ML BAG IV (20:10)
[2024-08-26] MEDS: 0.9% Normal Saline (1000mL) 1,000 ML 100 ML IV (22:51)
[2024-08-26 22:59] LABS: Hematocrit 40.4 % (37-47); Hemoglobin 13.4 g/dL (12.0-15.0)
[2024-08-26] MEDS: Pantoprazole Sodium 80 MG in 0.9% Normal Saline (100mL Bag) 80 ML 10 MG CONT INF (23:02)
[2024-08-27] VITALS (10 sets, daily range): BP systolic 119–153; BP diastolic 67–76; PULSE 82–122; RESP 16–20; TEMP 36.6–37.2; O2SAT 97–99; BMI 26.2
[2024-08-27 03:18] LABS: Hematocrit 34.6 % (37-47); Hemoglobin 12.2 g/dL (12.0-15.0)
[2024-08-27 07:18] LABS: Absolute Lymphocyte Count 1.67 X10^3/uL (0.83-4.51); Absolute Neutrophil Count 9.7 X10^3/uL (2.0-7.7); Basophil# 0.05 X10^3/uL; Basophil% 0.4 % (0-1); Eosinophil# 0.02 X10^3/uL; Eosinophils% 0.2 % (0-5); Hematocrit 33.3 % (37-47); Hemoglobin 11.4 g/dL (12.0-15.0); Lymphocyte # 1.67 X10^3/ul (0.83-4.51); Mean Corp Hgb Conc 34.2 g/dL (32-36); Mean Corpuscular Hgb 30.3 pg (27.0-32.0); Mean Corpuscular Volume 88.6 fL (81-99); Mean Platelet Vol. 8.8 fl (6.2-12.0); Monocyte# 1.35 X10^3/uL; Monocyte% 10.5 % (0-10); NRBC Flagged by Analyzer 0 % (0-5); Neutrophil # 9.66 X10^3/uL (2.7-7.7); Neutrophil % 75.5 % (47-70); Platelet Count 341 K/mm3 (150-450); RBC Distribution Width CV 14.4 % (11.6-14.6); RBC Distribution Width SD 46.3 fl (35.1-43.9); Red Blood Count 3.76 M/mm3 (4.2-5.4); White Blood Count 12.8 K/mm3 (4.4-11.0)
--- NOTE | 2024-08-27 07:23 | EX.PCM.CON.G ---
HPI Consult Data Date of Consult: 09/01/24 HPI Narrative Reason for Consultation: Acute GIB HPI Narrative: ROZINA HUERTAS, is a 63 F who presented to the emergency department with a chief complaint of left hip pain and concerns for pneumonia. PMH significant for alcohol abuse, GIB secondary to ulcerative esophagitis with adherent clot May 2024 on pantoprazole 40 mg twice daily. She reports 1 episode of melena in the past week and recent use of Pepto-Bismol. She reports h/o binge drinking with most recent alcohol use in the past few days. She had coffee-ground emesis in the ED. CT revealing for moderate to marked esophageal wall thickening (likely esophagitis), hiatal hernia, changes of pancreatitis (lipase normal), 12 mm calculus in/near main pancreatic duct with upstream ductal dilation (recommend MRI/MRCP), enlarged gallbladder (cholelithiasis) without signs of acute inflammation, mild wall thickening versus underdistention in the rectosigmoid colon. Labs reveal hemoglobin on admission of 13.6 which has decreased to 11.4, INR 1.2, BUN 6, creatinine 0.63, AST 40, alkaline phosphatase 168, albumin 2.9. SBP 139-151, HR 82-122. She denies any ongoing hematemesis and is requesting PO. EGD 06/14/2024 ([facility]) - LA Grade D esophagitis with mucosal ulcerations with an adherent clot. - There were no visible vessels or active bleeding seen after removal of adherent clot. - Erythematous mucosa in the antrum. - Medium-sized hiatal hernia. - Normal duodenal bulb and second portion of the duodenum. Recommendation: - Return patient to ICU for ongoing care. D/c octreotide PPI IV Q12 Replace OG tube after 48 hours. Will need EGD in 8 weeks to evaluate healing of esophagitis. LABS 06/28/2024 HGB 10 - at discharge from [facility] Medical History Migraines Difficulty walking Urge incontinence Acute cystitis with hematuria Muscle weakness Osteoarthritis Alcoholic hepatitis Alcoholic liver disease Acute respiratory failure with hypoxia Metabolic encephalopathy Major depression Protein calorie malnutrition Acute post-hemorrhagic anemia Dysphagia, oropharyngeal phase Malignant neoplasm of colon Ulcer Restless legs Injury of head and neck Anemia Alcohol abuse Bipolar disorder Hypothyroidism Osteoporosis Kidney stones GERD (gastroesophageal reflux disease) GI bleed Former smoker Home Medications ?Medication ?Instructions ?Recorded ?Last Taken ?Type calcium carbonate (Tums) 200 mg PO BID PRN dyspepsia 07/23/24 Unknown History cholecalciferol (vitamin D3) 1,250 1,250 mcg PO 2XW 07/23/24 Unknown History mcg (50,000 unit) capsule cyanocobalamin (vitamin B-12) 1,000 mcg IM QMONTH 07/23/24 Unknown History 1,000 mcg/mL injection solution folic acid 1 mg tablet 1 mg PO QDAY 07/23/24 Unknown History ipratropium 0.5 mg-albuterol 3 mg 3 ml inhalation Q4H PRN shortness 07/23/24 Unknown History (2.5 mg base)/3 mL nebulization of breath soln lidocaine 4 % topical gel 1 applic topical HS 07/23/24 Unknown History magnesium glycinate 100 mg (as 100 mg PO BID 07/23/24 Unknown History glycinate) tablet (Mag Glycinate) magnesium oxide 400 mg PO QDAY 07/23/24 Unknown History thiamine HCl (vitamin B1) 100 mg 100 mg PO QDAY 07/23/24 Unknown History tablet venlafaxine 37.5 mg 37.5 mg PO QDAY 07/23/24 Unknown History capsule,extended release 24 hr zinc oxide 20 % topical paste 1 ea topical Q8H PRN skin 07/23/24 Unknown History irritation ascorbic acid (vitamin C) 500 mg 500 mg PO BID #60 tabs 08/29/24 Unknown Rx tablet ferrous sulfate 325 mg (65 mg 325 mg PO QODAY #30 tabs 08/29/24 Unknown Rx iron) tablet pantoprazole 40 mg tablet,delayed 40 mg PO BID GERD 30 days #60 tabs 08/29/24 Unknown Rx release Allergy/AdvReac Type Severity Reaction Status Date / Time amoxicillin Allergy Intermediate Swelling, Verified 08/26/24 14:11 itching Family History Mother Alcohol abuse CAD (coronary artery disease) Heart disease Hypertension Myocardial infarction Father Alcohol abuse Cancer Surgical History History of total knee arthroplasty History of right hip replacement H/O total hysterectomy Social History household members: none Smoking Status: Never smoker alcohol intake: current alcohol intake frequency: 3 or more drinks per day details: Notes binge drinking, whiskey. substance use type: other details: Former cannabis usage. Stopped ~ 40 years ago. ROS Gastrointestinal Gastrointestinal: Reports abdominal pain and nausea Physical Exam Const no apparent distress General Appearance: well developed Orientation / Consciousness: oriented to person, oriented to place and oriented to time Neck General: normal visual inspection Resp Effort and Inspection: able to speak in complete sentences and symmetric chest movement Auscultation: clear to auscultation bilaterally Cardio regular rate and regular rhythm Palpation: normal PMI GI GI Narrative: Abdomen soft, non-tender, BS+ x4 Lab / Micro Data 08/29/24 05:06 08/29/24 05:06 Labs: Laboratory Results - last 24 hr 08/26/24 14:30: WBC 12.8 H, RBC 4.50, Hgb 13.6, Hct 40.9, MCV 90.9, MCH 30.2, MCHC 33.3, RDW Std Deviation 47.0 H, RDW Coeff of Angelo 14.2, Plt Count 505 H, MPV 9.0, Immature Gran % (Auto) 0.500, Neut % (Auto) 48.6, Lymph % (Auto) 42.1 H, [place] % (Auto) 6.6, Eos % (Auto) 1.5, Baso % (Auto) 0.7, Absolute Neuts (auto) 6.2, Absolute Lymphs (auto) 5.38 H, Nucleated RBC % 0, Platelet Estimate MOD INC, PT 15.2 H, INR 1.2, APTT 29.5, Sodium 140, Potassium 2.6 L*, Chloride 95 L, Carbon Dioxide 21.5, Anion Gap 23 H, BUN 6, Creatinine 0.69 L, Estim Creat Clear Calc 80.90, Est GFR (MDRD) Non-Af 96, BUN/Creatinine Ratio 8.3 L, Glucose 150 H, Calcium 10.0, Phosphorus 5.0 H, Magnesium 1.4 L, Total Bilirubin 0.28, AST 39 H, ALT 21, Alkaline Phosphatase 180 H, Total Protein 7.1, Albumin 3.3 L, Globulin 3.9, Albumin/Globulin Ratio 0.8 L, Lipase 28, Ethyl Alcohol 279.0 H, Blood Type O POSITIVE, Antibody Screen NEGATIVE 08/26/24 17:29: Urine Color Yellow, Urine Clarity Cloudy, Urine pH 6.0, Ur Specific [place] 1.015, Urine Protein 30 H, Urine Glucose (UA) Normal, Urine Ketones Negative, Urine Occult Blood 25 H, Urine Nitrite Positive H, Urine Bilirubin Negative, Urine Urobilinogen Normal, Ur Leukocyte Esterase 500 H, Urine RBC 0-5 SEEN, Urine WBC >100 SEEN, Ur Squamous Epith Cells 0-5 SEEN, Ur Transition Epith Cell 0-5 SEEN, Urine Bacteria 3+, Urine Mucus 0 SEEN 08/26/24 22:50: Hgb 13.4, Hct 40.4 08/27/24 03:10: Hgb 12.2, Hct 34.6 L 08/27/24 07:00: WBC 12.8 H, RBC 3.76 L, Hgb 11.4 L, Hct 33.3 L, MCV 88.6, MCH 30.3, MCHC 34.2, RDW Std Deviation 46.3 H, RDW Coeff of Angelo 14.4, Plt Count 341, MPV 8.8, Immature Gran % (Auto) 0.400, Neut % (Auto) 75.5 H, Lymph % (Auto) 13.0 L, [place] % (Auto) 10.5 H, Eos % (Auto) 0.2, Baso % (Auto) 0.4, Absolute Neuts (auto) 9.7 H, Absolute Lymphs (auto) 1.67, Nucleated RBC % 0 Imaging Radiology Impression Abdomen/Pelvis CT 08/26/24 15:09 IMPRESSION: 1. Correlate for trace pancreatitis. Similar 12 mm calculus either within or adjacent to the main pancreatic duct with upstream pancreatic ductal dilatation. Given ductal dilatation, recommend clinical follow-up including outpatient pancreatic protocol MRI with and without contrast and with MRCP. 2. Findings suggest cystitis. Correlate with urinalysis. 3. Hiatal hernia with redemonstrated minimally imaged moderate to marked esophageal wall thickening suggesting esophagitis, better seen previously. Unable to exclude underlying neoplasm. Recommend clinical follow-up to exclude this possibility. 4. Distended gallbladder with cholelithiasis. No convincing inflammation. If there is concern, consider RIGHT upper quadrant ultrasound and/or HIDA. 5. Mild wall thickening versus underdistention of the descending and rectosigmoid colon. Correlate for very mild colitis. No adjacent inflammatory changes to confirm this. 6. Enlarged appendix without convincing adjacent inflammation to confirm acute appendicitis. Correlation with presentation and exam is necessary. This could reflect backwash inflammation related to colitis, if present. 7. Increased nonspecific stranding in the LEFT flank and bilateral gluteal regions. Correlate with exam for clinical evidence of cellulitis or possible contusion given an appropriate history of trauma. 8. 3.8 cm LEFT adnexal cyst, incompletely characterized by CT. Given the patient is postmenopausal, recommend outpatient pelvic ultrasound for more definitive characterization. 9. Hepatic steatosis has improved slightly. Correlate with clinical and laboratory evidence of chronic liver disease. 10. Additional description as above. Reading Location: [facility] Hip/Pelvis X-Ray 08/26/24 18:16 IMPRESSION: No acute fracture. Postop changes as described above. Severe narrowing of the left hip joint. Reading [facility] Assessment & Plan Assessment/Plan (1) Anemia: QUALIFIERS: Anemia type: iron deficiency Iron deficiency anemia type: chronic blood loss Qualified Code(s): D50.0 - Iron deficiency anemia secondary to blood loss (chronic) (2) Alcoholic hepatitis: (3) Cholelithiasis: (4) Dilated pancreatic duct: PLAN: Plan Possible UGI bleed, likely related to known esophagitis with adherent clot and a hiatal hernia, but current BUN/Cr and vitals do not suggest active significant bleeding. Stable hemoglobin trend (dropped from 13.6-11.4) possibly reflects dilutional effect or minor bleed - monitor closely. - Continue PPI BID - H/H Q6, transfuse <7 Alcoholic Hepatitis (AST 40, ALP 168) - EtOH cessation encouraged Hypokalemia --> K+ 3.2 (improved from 2.6) - likely secondary to chronic alcohol abuse Pancreatic ductal dilation - recommend outpatient MRCP Cholelithiasis - ABD US Discussed with Dr. Self and agrees with plan. Capacity Capacity Assessment Tool Patient lacks Decision Making Capacity: unable to understand, reason and deliberate health related choices: No Risk to self and or others?: No Risk of leaving the patient care unit and or hospital?: No Charges/Coding Visit Charges Inpatient E&M: 77051 Init Hosp L3
--- NOTE | 2024-08-27 07:28 | PN.HOSP_ITS ---
Reason for Visit Reason for Visit: Diagnoses Gastrointestinal hemorrhage, unspecified (08/26/24) Subjective Subjective Patient is a 63-year-old lady with history of chronic alcoholic liver disease who presented with progressive generalized weakness as well as coffee-ground emesis admitted to monitored bed for subsequent inpatient evaluation Objective Data Objective Data Vital Signs: Vital Signs Temp Pulse Resp BP Pulse Ox O2 Del Method 98.9 F 122 H 16 151/73 H 97 Room Air 08/27/24 03:08 08/27/24 03:18 08/27/24 03:08 08/27/24 03:08 08/27/24 03:08 08/27/24 03:08 Oxygen Delivery Method Room Air Weight: 87.628 kg Body Mass Index (BMI) 26.2 Intake & Output: Intake and Output for Last 24 Hours 08/25/24 08/26/24 08/27/24 23:59 23:59 23:59 Intake Total 1385 / 1385 Output Total 100 / 100 Balance 1285 / 1285 Lab / Micro Data 08/27/24 07:00 08/27/24 07:00 Labs: Laboratory Results - last 24 hr 08/26/24 14:30: WBC 12.8 H, RBC 4.50, Hgb 13.6, Hct 40.9, MCV 90.9, MCH 30.2, MCHC 33.3, RDW Std Deviation 47.0 H, RDW Coeff of Angelo 14.2, Plt Count 505 H, MPV 9.0, Immature Gran % (Auto) 0.500, Neut % (Auto) 48.6, Lymph % (Auto) 42.1 H, [place] % (Auto) 6.6, Eos % (Auto) 1.5, Baso % (Auto) 0.7, Absolute Neuts (auto) 6.2, Absolute Lymphs (auto) 5.38 H, Nucleated RBC % 0, Platelet Estimate MOD INC, PT 15.2 H, INR 1.2, APTT 29.5, Sodium 140, Potassium 2.6 L*, Chloride 95 L, Carbon Dioxide 21.5, Anion Gap 23 H, BUN 6, Creatinine 0.69 L, Estim Creat Clear Calc 80.90, Est GFR (MDRD) Non-Af 96, BUN/Creatinine Ratio 8.3 L, Glucose 150 H, Calcium 10.0, Phosphorus 5.0 H, Magnesium 1.4 L, Total Bilirubin 0.28, AST 39 H, ALT 21, Alkaline Phosphatase 180 H, Total Protein 7.1, Albumin 3.3 L, Globulin 3.9, Albumin/Globulin Ratio 0.8 L, Lipase 28, Ethyl Alcohol 279.0 H, Blood Type O POSITIVE, Antibody Screen NEGATIVE 08/26/24 17:29: Urine Color Yellow, Urine Clarity Cloudy, Urine pH 6.0, Ur Specific [place] 1.015, Urine Protein 30 H, Urine Glucose (UA) Normal, Urine Ketones Negative, Urine Occult Blood 25 H, Urine Nitrite Positive H, Urine Bilirubin Negative, Urine Urobilinogen Normal, Ur Leukocyte Esterase 500 H, Urine RBC 0-5 SEEN, Urine WBC >100 SEEN, Ur Squamous Epith Cells 0-5 SEEN, Ur Transition Epith Cell 0-5 SEEN, Urine Bacteria 3+, Urine Mucus 0 SEEN 08/26/24 22:50: Hgb 13.4, Hct 40.4 08/27/24 03:10: Hgb 12.2, Hct 34.6 L 08/27/24 07:00: WBC 12.8 H, RBC 3.76 L, Hgb 11.4 L, Hct 33.3 L, MCV 88.6, MCH 30.3, MCHC 34.2, RDW Std Deviation 46.3 H, RDW Coeff of Angelo 14.4, Plt Count 341, MPV 8.8, Immature Gran % (Auto) 0.400, Neut % (Auto) 75.5 H, Lymph % (Auto) 13.0 L, [place] % (Auto) 10.5 H, Eos % (Auto) 0.2, Baso % (Auto) 0.4, Absolute Neuts (auto) 9.7 H, Absolute Lymphs (auto) 1.67, Nucleated RBC % 0 Radiography Diagnostic Testing: Radiology Impression Abdomen/Pelvis CT 08/26/24 15:09 IMPRESSION: 1. Correlate for trace pancreatitis. Similar 12 mm calculus either within or adjacent to the main pancreatic duct with upstream pancreatic ductal dilatation. Given ductal dilatation, recommend clinical follow-up including outpatient pancreatic protocol MRI with and without contrast and with MRCP. 2. Findings suggest cystitis. Correlate with urinalysis. 3. Hiatal hernia with redemonstrated minimally imaged moderate to marked esophageal wall thickening suggesting esophagitis, better seen previously. Unable to exclude underlying neoplasm. Recommend clinical follow-up to exclude this possibility. 4. Distended gallbladder with cholelithiasis. No convincing inflammation. If there is concern, consider RIGHT upper quadrant ultrasound and/or HIDA. 5. Mild wall thickening versus underdistention of the descending and rectosigmoid colon. Correlate for very mild colitis. No adjacent inflammatory changes to confirm this. 6. Enlarged appendix without convincing adjacent inflammation to confirm acute appendicitis. Correlation with presentation and exam is necessary. This could reflect backwash inflammation related to colitis, if present. 7. Increased nonspecific stranding in the LEFT flank and bilateral gluteal regions. Correlate with exam for clinical evidence of cellulitis or possible contusion given an appropriate history of trauma. 8. 3.8 cm LEFT adnexal cyst, incompletely characterized by CT. Given the patient is postmenopausal, recommend outpatient pelvic ultrasound for more definitive characterization. 9. Hepatic steatosis has improved slightly. Correlate with clinical and laboratory evidence of chronic liver disease. 10. Additional description as above. Reading Location: [facility] Hip/Pelvis X-Ray 08/26/24 18:16 IMPRESSION: No acute fracture. Postop changes as described above. Severe narrowing of the left hip joint. Reading Location: [facility] Physical Exam Narrative GENERAL: cooperative HEENT: Atraumatic; normocephalic EYES; Anicteric, Normal Conjunctiva NECK; supple, normal thyroid, RESPIRATORY: Diminished to auscultation CARDIOVASCULAR: Regular S1 S2, GI: soft, normoactive bowel sounds, : No Renal angle tenderness; EXTREMITIES: No edema, no clubbing, MUSCULOSKELETAL: no muscle wasting NEURO: Awake; no lateralizing signs. SKIN: No Rash PSYCH; Flat affect Assessment & Plan Assessment/Plan (1) GI bleed: PLAN: Plan Patient is a 63-year-old lady with history of chronic alcoholic liver disease who presented with progressive generalized weakness as well as coffee-ground emesis admitted to monitored bed for subsequent inpatient evaluation 1. Upper GI bleed ? Admit patient with chronic liver disease. Patient admitted to monitored bed started on Protonix, every 6 H&H ordered consult placed to GI. In view of patient underlying liver disease patient was started on ceftriaxone 2. Anemia secondary to acute blood loss anemia monitoring H&H with plans to transfuse if patient hemoglobin falls below 7 or patient is deemed to be symptomatic 3 Acute cystitis ?Patient had pyuria as well as imaging findings consistent with cystitis. Urine culture sent we will follow-up on the result patient started on ceftriaxone 4. Distended gallbladder with cholelithiasis ? Ordered gallbladder ultrasound for subsequent eval 5. Acute colitis ? Based on CAT scan findings patient is on antibiotics 6. Chronic alcoholic liver disease ? Followed by hepatology as Outpatient 7. Hypothyroidism ? Patient is on levothyroxine home dose continued 8. Hypokalemia -Corrected per protocol, Repeat potassium levels ordered for a.m.. 9. Depression with anxiety ? Patient is on venlafaxine?continue 10. Hypomagnesemia -Corrected for protocol, ordered repeat magnesium for a.m. 11. Left adnexal cyst, incompletely characterized -: CT with 3.8 cm left adnexal cyst, given patient is postmenopausal age recommended outpatient pelvic ultrasound, patient instructed to follow-up with primary care physician for subsequent care 12. Suspected protein calorie malnutrition ? Consult placed to dietitian 13. DVT prophylaxis ? Bilateral SCDs for now given patient presentation Charges/Coding Visit Charges Inpatient E&M: 25921 Subs Hosp L3
[2024-08-27] MEDS: Ipratropium/Albuterol Sulfate 3 ML AMPUL.NEB INHALATION (07:42)
[2024-08-27 07:50] LABS: Hemoglobin A1c 5.7 % (<=5.6)
[2024-08-27 07:52] LABS: ALB/GLOB Ratio 0.9 RATIO (0.9-2.4); AST(SGOT) 40 U/L (<=31); Alanine Aminotransfer ALT/SGPT 16 U/L (<=34); Albumin, Serum 2.9 g/dL (3.4-4.8); Alkaline Phosphatase 168 U/L (35-104); Anion Gap 15 (5-15); BUN 6 mg/dL (4-19); BUN/Creat Ratio 9.4 RATIO (10-20); Calcium,Total 9.2 mg/dL (7.6-11.0); Carbon Dioxide 22.8 mmol/L (21.0-32.0); Chloride 102 mmol/L (98-108); Creatinine, Serum 0.63 mg/dL (0.70-1.20); EST Glomerular Filtration Rate 98 (>60); Globulin 3.4 g/dL (2.2-4.2); Glucose 171 mg/dL (70-99); Potassium 3.2 mmol/L (3.3-5.1); Protein, Total 6.3 g/dL (5.9-8.4); Sodium Level 139 mmol/L (133-145); Total Bilirubin 0.52 mg/dL (0.00-1.30)
[2024-08-27] MEDS: Folic Acid 1 MG Tablet PO (08:56)
[2024-08-27] MEDS: Thiamine Hydrochloride 100 MG Tablet PO (08:56)
[2024-08-27] MEDS: Multivitamins,Ther W-Minerals Tablet 1 TABLET PO (08:56)
[2024-08-27] MEDS: 0.9% Normal Saline (1000mL) 1,000 ML 100 ML IV (08:57)
[2024-08-27] MEDS: Menthol/Lanolin/Calamine/Znox 113 GM Tube 1 APPLIC TOPICAL ×2 (09:00→22:26)
[2024-08-27] MEDS: Venlafaxine XR 37.5 MG Capsule PO (09:00)
[2024-08-27] MEDS: Magnesium Chloride 64 MG Delay Rel.Tablet 128 MG PO ×2 (09:04→22:25)
[2024-08-27] MEDS: Magnesium Sulfate 2 GM in Dextrose 5%-Water (100mL Bag) 100 ML IV (09:06)
[2024-08-27] MEDS: Pantoprazole Sodium 80 MG in 0.9% Normal Saline (100mL Bag) 80 ML 10 MG CONT INF ×2 (09:36→20:49)
--- NOTE | 2024-08-27 10:56 | CASEMGMT ---
Social Work SW received phone call from [facility] Transition of Care team, who states pt has services through Medicaid Waiver program. Mirta Izaguirre is Cleaner. Pt has 14 home delivered meals per week, an emergency response system, and 20 hours of aid services a week through [facility] ([phone]). [facility] also provided Chore services in January to assist pt in cleaning up the home. [facility] states that an APS referral was made in June due to reports from home health aids that home situation is in deplorable conditions. Phone call to Pat at [facility]. Pat states that pt does not currently have an open case but pt is well known to APS. SW reported concerns from EMS yesterday including deplorable home conditions, pt with urine and feces throughout home and on person and pt unwilling to allow help to be cleaned up, as well as alcohol concerns. Pat states none of this is new information and that Pt has been assigned a [facility] CM, has FISH HATCHERY MANAGER, has had chore services to clean the house in the past and is Alert and Oriented x3. Pat reports there is nothing else that APS can do and another report to APS is not warranted unless pt's orientation has changed at time of discharge. If pt remains A&0x3, APS cannot assist with concerns for pt. left for [facility] JYOTHI Izaguirre requesting return call to discuss this case. KRZYSZTOF Giron
[2024-08-27] MEDS: 0.9% Normal Saline (100mL Bag) 100 ML 15 ML IV ×2 (11:18→22:24)
[2024-08-27] MEDS: Potassium Chloride 10mEq/100mL 10 MEQ/100 ML IV.SOLN. 100 MEQ IV BOLUS ×4 (11:18→14:59)
--- NOTE | 2024-08-27 12:15 | CASEMGMT ---
RN?CM?PLANER OFFBEARER?CM?to room to meet with patient for initial transition planning/care coordination?assessment.?RN?CM?introduced self and role at [facility].? Pt voices understanding and consents to?assessment?at this time.? Pt resting in bed in no distress at this time.? Pt is A/O at this time and answers all questions appropriately.?? Care providers, pharmacy, and demographics verified/updated at this time. Strata: 2 PCP: Dr Shannon. Pt states she is not sure if Dr Shannon will take her back d/t no-call/no-shows. She would like to go back to him, though, if he will be agreeable. Specialists: Dr Lopez-hepatology Preferred Pharmacy: [facility] @ [place]. Otherwise, just started using [facility]. Insurance: [facility] Prescription Benefit:?Yes Living Will/HPOA:? Pt thinks she just did AD @ [facility] and she thinks she has the paperwork @ her home, but she is not certain of either. She states if she did them that she would have named her sister, Jo, as the primary agent. LNOK: Sister, Jo. CousinTaylor Living Arrangements: Lives alone in ground-level apt w/no steps to enter. Pt has CMAlison, through [facility], as she has a LUL[facility] waiver program. Pt received 20-hrs of aide services/week through [employer]. Pt states she just started getting services through [employer] about a week ago, stating she was recently @ a SNF and when she returned home, the prior [employer] agency did not have staffing to provide her. The aide assists pt w/sponge-bathing. Pt able to dress self. Aide helps w/cleaning & cooking. Pt gets some home-delivered meals and orders most groceries on-line. Pt states she has to move out of her current apt by the end of this month and she does not know where she will go from there. Lety [facility]INTEROS, made aware. Transportation:?Pt states she drives. She states she will need a ride home @ [place]. DME: States has the following DME:? 2 rollators and emergency response system. Also has a cane and walker available, but does not use. ? Pt states no need for further DME at this time.? HHC/SNF: Pt has been to [facility], [facility], [facility], and just recently [facility] this year. Discussed discharge planning. Pt states she is feeling weak, but prefers to dc home if able. She would like [facility] and declines wanting list of other C agencies, unless [facility] unable to accept her. She is aware therapy will be in to evaluate her and recommendations will be made. CM to f/u with pt once this occurs to discuss if she is feeling strong enough to return home safely. Pt voices understanding. PLAN:??TBD pending therapy assessment and progress. Therapy evals pending. Pt prefers to dc home w/[facility] for therapy, but this would not be able to be set up if Dr Shannon unwilling to accept pt/if pt does not have PCP to follow for C. Hernandez BSN?RN?CM
--- NOTE | 2024-08-27 16:14 | CASEMGMT ---
Social Work Return VM from JYOTHI Martínez at [facility]. Mauricio states pt needs to be out of her home by September 10. Pt and Mauricio has looked for alternate housing but have not found anywhere for pt to go yet. Mauricio states pt does not have a PCP as pt was with Dr. Shannon, but because of multiple no call/no shows Dr. Shannon will no longer see pt. Pt is considering going to [facility] if she cannot find alternate housing, but she will need a PCP to write the admission orders. Mauricio states she has been keeping Td at [facility] up to date on situation, however there is not an open APS case. NELI met with pt to discuss housing concerns. NELI spoke with pt regarding going from hospital to [facility] as physician orders can be written from the hospital. Pt is adamant that she will not go to a SNF at this time but needs to return home to pack up her things for storage. Pt states she has home health aids coming into the home to assist with packing and she needs to be there so that this happens. Pt states that she is still looking for housing and talking to landlords to find a place to live. Pt adamant she does not want assisted living or fpc at this time. KRZYSZTOF Syed
[2024-08-27] MEDS: Ceftriaxone 1 GM/50 ML BAG IV (22:24)
[2024-08-28] VITALS (12 sets, daily range): BP systolic 100–136; BP diastolic 62–101; PULSE 79–93; RESP 16–18; TEMP 36.3–37.1; O2SAT 95–99; BMI 26.7
--- NOTE | 2024-08-28 04:01 | CPS ---
Patient refusing breathing tx's, order d/c'd per dr. cote
--- NOTE | 2024-08-28 06:00 | EKG12_ITS ---
Test Reason : PRE-OP Blood Pressure : */* mmHG Vent. Rate : 83 BPM Atrial Rate : 83 BPM P-R Int : 164 ms QRS Dur : 74 ms QT Int : 390 ms P-R-T Axes : 75 49 75 degrees QTcB Int : 458 ms Normal sinus rhythm Low voltage QRS Borderline ECG When compared with ECG of 13-Jun-2024 17:10, Borderline criteria for Inferior infarct are no longer Present T wave inversion no longer evident in Lateral leads QT has shortened Confirmed by Jose Hsieh ([id number]), editor magazine [employer] [place]AN[employer] ([id number]) on 08/29/2024 7:07:33 AM Referred By: Confirmed By: Jose Hsieh
[2024-08-28 06:21] LABS: Absolute Lymphocyte Count 1.72 X10^3/uL (0.83-4.51); Absolute Neutrophil Count 1.7 X10^3/uL (2.0-7.7); Basophil# 0.01 X10^3/uL; Basophil% 0.3 % (0-1); Eosinophils% 2.5 % (0-5); Hematocrit 32.2 % (37-47); Hemoglobin 10.6 g/dL (12.0-15.0); Lymphocyte # 1.72 X10^3/ul (0.83-4.51); Lymphocyte % 43.7 % (19-41); Mean Corp Hgb Conc 32.9 g/dL (32-36); Mean Corpuscular Hgb 30.1 pg (27.0-32.0); Mean Corpuscular Volume 91.5 fL (81-99); Mean Platelet Vol. 9.3 fl (6.2-12.0); Monocyte# 0.38 X10^3/uL; Monocyte% 9.6 % (0-10); NRBC Flagged by Analyzer 0 % (0-5); Neutrophil # 1.73 X10^3/uL (2.7-7.7); Neutrophil % 43.9 % (47-70); Platelet Count 231 K/mm3 (150-450); RBC Distribution Width CV 14.3 % (11.6-14.6); RBC Distribution Width SD 47.2 fl (35.1-43.9); Red Blood Count 3.52 M/mm3 (4.2-5.4); White Blood Count 3.9 K/mm3 (4.4-11.0)
[2024-08-28] MEDS: Pantoprazole Sodium 80 MG in 0.9% Normal Saline (100mL Bag) 80 ML 10 MG CONT INF ×2 (06:28→17:54)
--- NOTE | 2024-08-28 06:30 | US_ITS ---
PROCEDURE: ABDOMEN LIMITED 08/28/2024 REASON FOR EXAM: GALLSTONES TECHNIQUE: Complete abdominal ultrasound dwyer-scale images with color doppler. PATIENT PREPARATION: Per protocol COMPARISON: CT scan on 08/26/2024. FINDINGS: Hepatomegaly measuring 18.9 cm. Diffuse increased hepatic echogenicity suggestive of hepatic steatosis. Unremarkable hepatopetal flow in the main portal vein. The gallbladder measures 6 cm in its length. Multiple gallstones are noted without evidence of acute cholecystitis. Negative sonographic Lyman. No pericholecystic free fluid is noted. Unremarkable visualized pancreas. Limited evaluation of the pancreas secondary to overlying bowel gas. Normal gallbladder wall thickness measuring 3 mm. The common bile duct diameter measures 4 mm. Unremarkable right kidney measuring 10.9 x 4.8 x 4.8 cm. Normal right renal cortical thickness measuring 1 cm. US/Abdomen Limited IMPRESSION: 1. Hepatomegaly. 2. Hepatic steatosis. 3. Cholelithiasis without acute cholecystitis. 4. Nondilated biliary tree. 5. Limited evaluation of the pancreas secondary to overlying bowel gas. Reading Location: [place] [id number]
[2024-08-28 06:44] LABS: AST(SGOT) 34 U/L (<=31); Alanine Aminotransfer ALT/SGPT 15 U/L (<=34); Albumin, Serum 2.8 g/dL (3.4-4.8); Alkaline Phosphatase 140 U/L (35-104); Anion Gap 11 (5-15); BUN 4 mg/dL (4-19); BUN/Creat Ratio 6.8 RATIO (10-20); Bilirubin, Direct 0.23 mg/dL (0.00-0.30); Calcium,Total 8.7 mg/dL (7.6-11.0); Carbon Dioxide 24.2 mmol/L (21.0-32.0); Chloride 105 mmol/L (98-108); Creatinine, Serum 0.62 mg/dL (0.70-1.20); EST Glomerular Filtration Rate 99 (>60); Estimated Creatinine Clearance 88.12 ml/min (50-250); Glucose 97 mg/dL (70-99); Magnesium 1.4 mg/dL (1.5-2.2); Phosphorus 3.6 mg/dL (2.7-4.5); Potassium 3.4 mmol/L (3.3-5.1); Protein, Total 5.7 g/dL (5.9-8.4); Sodium Level 139 mmol/L (133-145); Total Bilirubin 0.43 mg/dL (0.00-1.30)
--- NOTE | 2024-08-28 07:15 | PCM.PN.HOSP ---
Reason for Visit Reason for Visit: Diagnoses Gastrointestinal hemorrhage, unspecified (08/26/24) Subjective Subjective GNR lactose speech language pathology assistant; [place] Count >100,000 CFU/mL Objective Data Objective Data Vital Signs: Vital Signs Temp Pulse Resp BP Pulse Ox O2 Del Method 98.1 F 93 18 127/85 H 98 Room Air 08/28/24 03:29 08/28/24 03:29 08/28/24 03:29 08/28/24 03:29 08/28/24 03:29 08/28/24 03:29 Oxygen Delivery Method Room Air Weight: 89.4 kg Body Mass Index (BMI) 26.7 Intake & Output: Intake and Output for Last 24 Hours 08/26/24 08/27/24 08/28/24 23:59 23:59 23:59 Intake Total 1385 / 1385 2350.67 / 2350.67 167.25 / 167.25 Output Total 100 / 100 Balance 1285 / 1285 2350.67 / 2350.67 167.25 / 167.25 Lab / Micro Data 08/28/24 04:52 08/28/24 04:52 Labs: Laboratory Results - last 24 hr 08/27/24 07:00: WBC 12.8 H, RBC 3.76 L, Hgb 11.4 L, Hct 33.3 L, MCV 88.6, MCH 30.3, MCHC 34.2, RDW Std Deviation 46.3 H, RDW Coeff of Angelo 14.4, Plt Count 341, MPV 8.8, Immature Gran % (Auto) 0.400, Neut % (Auto) 75.5 H, Lymph % (Auto) 13.0 L, [place] % (Auto) 10.5 H, Eos % (Auto) 0.2, Baso % (Auto) 0.4, Absolute Neuts (auto) 9.7 H, Absolute Lymphs (auto) 1.67, Nucleated RBC % 0, Sodium 139, Potassium 3.2 L, Chloride 102, Carbon Dioxide 22.8, Anion Gap 15, BUN 6, Creatinine 0.63 L, Estim Creat Clear Calc 80.90, Est GFR (MDRD) Non-Af 98, BUN/Creatinine Ratio 9.4 L, Glucose 171 H, Hemoglobin A1c 5.7, Calcium 9.2, Total Bilirubin 0.52, AST 40 H, ALT 16, Alkaline Phosphatase 168 H, Total Protein 6.3, Albumin 2.9 L, Globulin 3.4, Albumin/Globulin Ratio 0.9 08/28/24 04:52: WBC 3.9 L, RBC 3.52 L, Hgb 10.6 L, Hct 32.2 L, MCV 91.5, MCH 30.1, MCHC 32.9, RDW Std Deviation 47.2 H, RDW Coeff of Angelo 14.3, Plt Count 231, MPV 9.3, Immature Gran % (Auto) 0.000, Neut % (Auto) 43.9 L, Lymph % (Auto) 43.7 H, [place] % (Auto) 9.6, Eos % (Auto) 2.5, Baso % (Auto) 0.3, Absolute Neuts (auto) 1.7 L, Absolute Lymphs (auto) 1.72, Nucleated RBC % 0, Sodium 139, Potassium 3.4, Chloride 105, Carbon Dioxide 24.2, Anion Gap 11, BUN 4, Creatinine 0.62 L, Estim Creat Clear Calc 88.12, Est GFR (MDRD) Non-Af 99, BUN/Creatinine Ratio 6.8 L, Glucose 97, Calcium 8.7, Phosphorus 3.6, Magnesium 1.4 L, Total Bilirubin 0.43, Direct Bilirubin 0.23, AST 34 H, ALT 15, Alkaline Phosphatase 140 H, Total Protein 5.7 L, Albumin 2.8 L, Globulin 3.0, TSH 6.550 H Micro: Microbiology 08/26/24 Unknown Urine, Catheterized Urine Culture - Preliminary GNR lactose speech language pathology assistant Physical Exam Narrative GENERAL: cooperative HEENT: Atraumatic; normocephalic EYES; Anicteric, Normal Conjunctiva NECK; supple, normal thyroid, RESPIRATORY: Diminished to auscultation CARDIOVASCULAR: Regular S1 S2, GI: soft, normoactive bowel sounds, : No Renal angle tenderness; EXTREMITIES: No edema, no clubbing, MUSCULOSKELETAL: no muscle wasting NEURO: Awake; no lateralizing signs. SKIN: No Rash PSYCH; Flat affect Assessment & Plan Assessment/Plan (1) GI bleed: PLAN: Plan Patient is a 63-year-old lady with history of chronic alcoholic liver disease who presented with progressive generalized weakness as well as coffee-ground emesis admitted to monitored bed for subsequent inpatient evaluation 1. Upper GI bleed ? Admit patient with chronic liver disease. Patient admitted to monitored bed started on Protonix, every 6 H&H ordered consult placed to GI. In view of patient underlying liver disease patient was started on ceftriaxone ? 08/28/2024; patient was seen in consultation by Dr. Larios his notes and recommendations reviewed 2. Anemia secondary to acute blood loss anemia monitoring H&H with plans to transfuse if patient hemoglobin falls below 7 or patient is deemed to be symptomatic 3 Acute cystitis ?Patient had pyuria as well as imaging findings consistent with cystitis. Urine culture sent we will follow-up on the result patient started on ceftriaxone 08/28/2024; patient urine cultures so far positive GNR lactose speech language pathology assistant; [place] Count >100,000 CFU/mL 4. Distended gallbladder with cholelithiasis ? Ordered gallbladder ultrasound for subsequent eval 08/28/2024; patient gallbladder ultrasound did not show 1. Hepatomegaly. 2. Hepatic steatosis. 3. Cholelithiasis without acute cholecystitis. 4. Nondilated biliary tree. 5. Limited evaluation of the pancreas secondary to overlying bowel gas. 5. Acute colitis ? Based on CAT scan findings patient is on antibiotics 6. Chronic alcoholic liver disease ? Followed by hepatology as Outpatient 7. Hypothyroidism ? Patient is on levothyroxine home dose continued 8. Hypokalemia -Corrected per protocol, Repeat potassium levels ordered for a.m.. 9. Depression with anxiety ? Patient is on venlafaxine?continue 10. Hypomagnesemia -Corrected for protocol, ordered repeat magnesium for a.m. 11. Left adnexal cyst, incompletely characterized -: CT with 3.8 cm left adnexal cyst, given patient is postmenopausal age recommended outpatient pelvic ultrasound, patient instructed to follow-up with primary care physician for subsequent care 12. Suspected protein calorie malnutrition ? Consult placed to dietitian 13. DVT prophylaxis ? Bilateral SCDs for now given patient presentation Charges/Coding Visit Charges Inpatient E&M: 74752 Subs Hosp L2
[2024-08-28] MEDS: Menthol/Lanolin/Calamine/Znox 113 GM Tube 1 APPLIC TOPICAL ×2 (10:00→21:43)
--- NOTE | 2024-08-28 11:35 | CASEMGMT ---
Social Work SW met with pt and provided written information on the [facility] Housing program through [employer]. Pt appreciative of information to assist with finding housing. SW left VM with pt Direction Home JYOTHI Kirby notifying of pt's decision to return home at dc and adamant denial to go to SNF from hospital. KRZYSZTOF Syed
--- NOTE | 2024-08-28 12:30 | EGD_PTH ---
PATIENT: ROZINA HUERTAS LOC: MS3 U#:[id number] AGE/SX: 63/F ROOM: [facility] [place] RE08/26/[address]: Dr. Jerry Lopez MD : 1960 BED: 1 DIS: 08/29/2024 SPEC #: [id number] RECD: 08/29/24 11:34 STATUS: ANDREINA REQ #: [id number] HUSAM: 08/28/24 12:[address]: Troy Self DEPT: SURGICAL PATHOLOGY RECD BY: Erasto Tavares ENTERED: 08/29/24 11:34 SP TYPE: EGD BIOPSY OTHR DR: MD Dr. Richard Richardson MD Dr. Prakash Chand, MD Dr. William Lago, MD Tissues: A - Esophagus, NOS Procedures: Immunohistochemical Stains Special Stain Group I Surgery Specimen Level IV GMS Stain (control) IHC Stain ADDITIONAL Comments: @ Ordering doctor for SUIV edited from to @ by ZAYNAB at 08/29/24 1137 @ Submitting doctor edited from to @ by ZAYNAB at 08/29/24 1135 HEADER OPERATION: EGD with biopsy PRE-OP DIAGNOSIS: GI bleed TISSUE SUBMITTED: A- Random esophagus biopsy MICROSCOPIC DIAGNOSIS A. Esophagus, random, biopsy: * Extensive ulceration with necro-inflammatory debris. * Columnar mucosa with reactive changes, negative for goblet cell metaplasia. * No squamous mucosa seen. * PASD stain for fungal organisms is pending and will be reported in an addendum. * IHC for CMV and HSV are pending and will be reported in an addendum. MICROSCOPIC DESCRIPTION Slides are reviewed. GROSS DESCRIPTION A. Received in formalin in a container labeled with the patient's name, date of , and biopsy: Random esophagus are multiple whitt-pink fragments of mucosal tissue measuring 0.8 x 0.6 x 0.3 cm in aggregate. Submitted in toto in A1. [facility] 09/16/2024 CPT:[id number] ADDENDUM ADDENDUM ADDENDUM ADDENDUM ADDENDUM ADDENDUM ADDENDUM ADDENDUM ADDENDUM ADDENDUM ADDENDUM ADDENDUM ADDENDUM ADDENDUM ADDENDUM 09/15/2024 13:56 ADDENDUM 09/15/2024 13:56 ADDENDUM 09/15/2024 13:56 ADDENDUM 09/15/2024 13:56 ADDENDUM 09/15/2024 13:56 This addendum is to report the results of the PASD special stain and the IHCs (performed at [facility]): The PASD stain is negative for fungal organisms. IHC for HSV (herpes simplex virus types I&II) is negative (performed at [facility]). IHC for CMV (cytomegalovirus) is negative (performed at [facility]). All matched controls reacted appropriately. These tests were developed and their performance characteristics determined by [facility]. They may not have been cleared or approved by the U.S. Food and Drug Administration. The FDA has determined that such clearance or approval is not necessary.? The above immunohistochemical/dualISH?markers are ordered and reviewed by the Pathologist.
--- NOTE | 2024-08-28 13:09 | PRE.ANES_ITS ---
ASA Classification* ASA Classification ASA Classification: 3 Assessment & Plan Anesthesia* Anesthesia Assessment Anesthesia Assessment: Discussed sedation and/or anesthesia options, risks, benefits, and alternatives with patient/parents/legal guardian/POA. Questions invited. The patient/parents/legal guardian/POA seems to understand and agrees to proceed with anesthesia plan. Reviewed the physical assessment, medical history, allergy history and patient home medications list prior to surgery/procedure/anesthetic and documented any changes. Performed airway and anesthesia risk assessments. Anesthesia Type Anesthesia Type: MAC History Source History Obtained from:: Patient and Chart Anesthesia Focused Assessment* Temperature: 97.3 F Pulse Rate: 81 Blood Pressure: 128/70 Respiratory Rate: 16 Pulse Ox: 99 Oxygen Delivery Method: Room Air Airway Assessment Mouth opens: >3 cm Mallampati Score: I Teeth Condition: Missing (Patient is edentulous.) Neck Range of motion (ROM): Limited ROM (Slight decrease in extension) Focused Labs Anesthesia Preop lab: CBC WBC 3.9 K/mm3 (4.4-11.0) L 08/28/24 04:52 08/28/24 RBC 3.52 M/mm3 (4.2-5.4) L 08/28/24 04:52 08/28/24 Hgb 10.6 g/dL (12.0-15.0) L 08/28/24 04:52 5 Hct 32.2 % (37-47) L 08/28/24 04:52 08/28/24 Plt Count 231 K/mm3 (150-450) 08/28/24 04:52 08/28/24 CHEMISTRY Potassium 3.4 mmol/L (3.3-5.1) 08/28/24 04:52 08/28/24 Sodium 139 mmol/L (133-145) 08/28/24 04:52 08/28/24 Magnesium 1.4 mg/dL (1.5-2.2) L 08/28/24 04:52 08/28/24 Phosphorus 3.6 mg/dL (2.7-4.5) 08/28/24 04:52 08/28/24 BUN 4 mg/dL (4-19) 08/28/24 04:52 08/28/24 Creatinine 0.62 mg/dL (0.70-1.20) L 08/28/24 04:52 Glucose 97 mg/dL (70-99) 08/28/24 04:52 08/28/24 TSH 6.550 uIU/mL (0.300-4.200) H 08/28/24 04:52 COAG PT 15.2 SECONDS (11.7-14.9) H 08/26/24 14:30 08/12 10/05 Pre-Assessment Diagnosis/Proposed Procedure Planned Operative Procedure(s): Esophagogastroduodenoscopy Anesthesia History 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 When Was Last Pacemaker Check QUESTION #4 FULL TEXT: You/Your Family Experience fever (hyperthermia) with Anesthesia Last Oral Intake Last Oral intake: Last Oral Intake NPO since 00:00 08/28/24 12:59 Meds taken in AM with sips of No 08/28/24 12:59 water? 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 - electro mechanical technician: PONV - electro mechanical technician Female HX of Motion Sickness HX of N/V After Surgery Non-Smoker Duration of Surgery greater than 60 minutes Number of Risk Factors PONV Score Height & Weight Height & Weight: Anesthesia: Height & Weight Height 6 ft 08/28/24 12:59 Weight: 89.4 kg 08/28/24 12:59 Body Mass Index (BMI) 26.7 08/28/24 12:59 Respiratory Assessment Respiratory Assessment - electro mechanical technician: Respiratory Tract Infection Hx - electro mechanical technician Hx Respiratory Tract Infection No 08/28/24 03:35 Any additional information?: Yes Hx Respiratory Tract Infection: Yes (Patient has had a on and off cough for about couple weeks.) STOP Sleep Apnea STOP Sleep Apnea - electro mechanical technician: STOP Sleep Apnea - electro mechanical technician Hx Hypertension No 08/27/24 15:23 Hx Sleep Apnea No 08/26/24 22:34 CPAP BIPAP Do you snore loudly (louder No 08/26/24 22:34 than talking or can be heard Do you often feel tired/ No 08/26/24 22:34 fatigued/ sleepy during daytime? Has anyone observed you stop No 08/26/24 22:34 breathing during sleep? STOP Results Negative 08/26/24 22:34 QUESTION #5 FULL TEXT : Do you snore loudly (louder than talking or can be heard through closed doors)? 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 Specify any problems Hx of Preganancy in last 3 N/A 08/26/24 22:34 Months Nurse Filling Out Transfusion TWOLF 08/26/24 22:34 & Questions: Date: 08/26/24 08/26/24 22:34 Time: 22:36 08/26/24 22:34 Patient unable to answer at this time (ie. confused, unrespo /Reproduction History /Reproductive History - electro mechanical technician: /Reproductive Hx- electro mechanical technician Hx Now No 08/28/24 03:35 Gestational Age (in weeks): EDC: Hx Hx Para Hx Section SAB No 08/28/24 03:35 Active Medications Active Medications: Current Medications Generic Name Dose Route Start Last Admin Trade Name Freq PRN Reason Stop Dose Admin Acetaminophen 650 mg 08/26/24 22:07 Acetaminophen 325 Mg Tablet PO Q4H PRN PRN Fever, pain 1-10/10 Acetaminophen 650 mg 08/26/24 22:07 Acetaminophen 650 Mg Suppository RC Q4H PRN PRN Fever, pain 1-10 Al Hydroxide/Mg Hydroxide 30 ml 08/26/24 22:07 Mag Hydrox/Al Hydrox/Simeth 30 Ml Udc PO Q6H PRN PRN Gastric Burning Albuterol Sulfate 2.5 mg 08/26/24 22:07 Albuterol 2.5 Mg/3 Ml Vial.Neb. INHALATION Q2H PRN PRN Dyspnea, wheezing Calamine/Phenol 1 applic 08/27/24 10:00 08/27/24 22:26 Menthol/Lanolin/Calamine/Znox 113 Gm Tube TOPICAL 1 applic BID ULICES Administration Protocol Folic Acid 1 mg 08/27/24 08:00 08/28/24 09:56 Folic Acid 1 Mg Tablet PO Not Given BREAKFAST ULICES Guaifenesin 20 ml 08/26/24 22:07 Guaifenesin 10 Ml Udc (200mg/10ml) PO Q4H PRN PRN COUGH Hydralazine HCl 10 mg 08/26/24 22:07 Hydralazine 20 Mg/Ml Vial IV Q4H PRN PRN SBP > 160 Protocol Ceftriaxone Sodium 1 gm in 50 mls @ 100 mls/hr 08/27/24 22:00 08/27/24 22:54 Rocephin IV Infused 2200 ULICES Infusion Pantoprazole Sodium 80 mg/ 100 mls @ 10 mls/hr 08/26/24 22:07 08/28/24 06:28 Sodium Chloride CONT INF 10 mls/hr Q10H ULICES Administration Sodium Chloride 100 mls @ 15 mls/hr 08/26/24 22:08 08/28/24 03:07 IV 0 mls/hr .Q6H40M PRN Infusion Saline Flush Sodium Chloride 100 mls @ 15 mls/hr 08/26/24 22:08 IV .Q6H40M PRN Additional IVPB Infusion Lorazepam 2 mg 08/26/24 22:07 Lorazepam 2 Mg/Ml Wch Syringe IV UD PRN CIWA score >/=15. Protocol Lorazepam 2 mg 08/26/24 22:07 Lorazepam 2 Mg/Ml [facility] Syringe IV Q2H PRN PRN CIWA score > 8 but <15 Protocol Lorazepam 2 mg 08/26/24 22:07 Lorazepam 1 Mg Tablet PO UD PRN CIWA score >/=15. Protocol Lorazepam 2 mg 08/26/24 22:07 Lorazepam 1 Mg Tablet PO Q2H PRN PRN CIWA score > 8 but <15 Protocol Magnesium Chloride 128 mg 08/27/24 10:00 08/28/24 10:14 Magnesium Chloride 64 Mg Delay Rel.Tablet PO Not Given BID ULICES Melatonin 3 mg 08/26/24 22:07 Melatonin 3 Mg Tablet PO QHS PRN PRN INSOMNIA Multivitamins/Minerals 1 tablet 08/27/24 08:00 08/28/24 09:56 Multivitamins,Ther W-Minerals Tablet PO Not Given [facility] Ondansetron HCl 4 mg 08/26/24 22:07 Ondansetron 4 Mg/2 Ml Vial IV Q8H PRN PRN NAUSEA/VOMITING Prochlorperazine Edisylate 5 mg 08/26/24 22:07 Prochlorperazine 10 Mg/2 Ml Vial IV Q4H PRN PRN Breakthrough nausea/vomiting Sodium Chloride 10 - 40 ml 08/26/24 22:08 0.9% Saline Lock 10 Ml Syringe IV UD PRN SALINE FLUSH Thiamine HCl 100 mg 08/27/24 08:00 08/28/24 09:56 Thiamine Hydrochloride 100 Mg Tablet PO Not Given [facility] Venlafaxine HCl 37.5 mg 08/27/24 10:00 08/28/24 10:14 Venlafaxine Xr 37.5 Mg Capsule PO Not Given DAILY ULICES PFSH Medical History Migraines Difficulty walking Urge incontinence Acute cystitis with hematuria Muscle weakness Osteoarthritis Alcoholic hepatitis Alcoholic liver disease Acute respiratory failure with hypoxia Metabolic encephalopathy Major depression Protein calorie malnutrition Acute post-hemorrhagic anemia Dysphagia, oropharyngeal phase Malignant neoplasm of colon Ulcer Restless legs Injury of head and neck Anemia Alcohol abuse Bipolar disorder Hypothyroidism Osteoporosis Kidney stones GERD (gastroesophageal reflux disease) GI bleed Former smoker Home Medications ?Medication ?Instructions ?Recorded ?Last Taken ?Type calcium carbonate (Tums) 200 mg PO BID PRN dyspepsia 07/23/24 Unknown History cholecalciferol (vitamin D3) 1,250 1,250 mcg PO 2XW Unknown History mcg (50,000 unit) capsule cyanocobalamin (vitamin B-12) 1,000 mcg IM QMONTH 07/12 07/08 Unknown History 1,000 mcg/mL injection solution folic acid 1 mg tablet 1 mg PO QDAY 07/23/24 Unknow n History ipratropium 0.5 mg-albuterol 3 mg 3 ml inhalation Q4H PRN shortness 07/23/24 Unknown History (2.5 mg base)/3 mL nebulization of breath soln lidocaine 4 % topical gel 1 applic topical HS 07/23/24 Unknown History magnesium glycinate 100 mg (as 100 mg PO BID 07/23/24 Unknown History glycinate) tablet (Mag Glycinate) magnesium oxide 400 mg PO QDAY 07/23/24 Unkn own History pantoprazole 40 mg tablet,delayed 40 mg PO BID GERD Unknown History release prednisone 50 mg tablet 50 mg PO QDAY 07/23/24 Unkno wn History thiamine HCl (vitamin B1) 100 mg 100 mg PO QDAY Unknown History tablet venlafaxine 37.5 mg 37.5 mg PO QDAY 07/23/24 Unk nown History capsule,extended release 24 hr zinc oxide 20 % topical paste 1 ea topical Q8H PRN ski n 07/23/24 Unknown History irritation Allergy/AdvReac Type Severity Reaction Status Date / Time amoxicillin Allergy Intermediate Swelling, Verified 08/26/24 14:11 itching Family History Mother Alcohol abuse CAD (coronary artery disease) Heart disease Hypertension Myocardial infarction Father Alcohol abuse Cancer Surgical History History of total knee arthroplasty History of right hip replacement H/O total hysterectomy Social History household members: none Smoking Status: Never smoker alcohol intake: current alcohol intake frequency: 3 or more drinks per day details: Notes binge drinking, whiskey. substance use type: other details: Former cannabis usage. Stopped ~ 40 years ago. Review of Systems (Anesthesia) ROS Narrative System reviewed and no additional complaints, except as documented.
[2024-08-28] MEDS: Ipratropium/Albuterol Sulfate 3 ML AMPUL.NEB INHALATION (13:37)
--- NOTE | 2024-08-28 14:51 | OP.CCLET_ITS ---
08/28/2024 Gonsalo Shannon Re : Upper GI endoscopy procedure for Kenyatta Carrillo Dear Mirtha This procedure was performed on August. My impressions and recommendations are as follows: Impressions : - LA Grade D erosive esophagitis with bleeding. Biopsied. - Large hiatal hernia. - Acute duodenitis. Recommendations : - [facility]. - Full liquid diet today. - Continue present medications. - Await pathology results. - Repeat upper endoscopy to check healing. My findings are described in the full procedure note, which is enclosed. If I can be of further assistance, please feel free to contact me at . Sincerely, Troy Self, 08/28/2024 2:50:25 PM This report has been signed electronically.
--- NOTE | 2024-08-28 14:51 | OP.EGD_ITS ---
Patient Name: Kenyatta Carrillo Procedure Date: 08/28/2024 1:04 PM Date of : 1960 Age: 63 Procedure: Upper GI endoscopy Indications: Hematemesis, Melena, Suspected upper gastrointestinal bleeding Providers: Troy Self DO Medicines: Monitored Anesthesia Care Patient Profile: This is a 63 year old female. Refer to note in patient chart for documentation of history and physical. Patient has symptoms of dysphagia with solids, acute nausea, acute throat burning and acute vomiting. Complications: No immediate complications. Procedure: Pre-Anesthesia Assessment: - Prior to the procedure, a History and Physical was performed, and patient medications and allergies were reviewed. The patient is competent. The risks and benefits of the procedure and the sedation options and risks were discussed with the patient. All questions were answered and informed consent was obtained. Patient identification and proposed procedure were verified by the physician in the pre-procedure area. Mental Status Examination: alert and oriented. Airway Examination: normal oropharyngeal airway and neck mobility. Respiratory Examination: clear to auscultation. CV Examination: normal. Prophylactic Antibiotics: The patient does not require prophylactic antibiotics. Prior Anticoagulants: The patient has taken no anticoagulant or antiplatelet agents. ASA Grade Assessment: II - A patient with mild systemic disease. After reviewing the risks and benefits, the patient was deemed in satisfactory condition to undergo the procedure. The anesthesia plan was to use monitored anesthesia care (MAC). Immediately prior to administration of medications, the patient was re-assessed for adequacy to receive sedatives. The heart rate, respiratory rate, oxygen saturations, blood pressure, adequacy of pulmonary ventilation, and response to care were monitored throughout the procedure. The physical status of the patient was re-assessed after the procedure. After obtaining informed consent, the endoscope was passed under direct vision. Throughout the procedure, the patient's blood pressure, pulse, and oxygen saturations were monitored continuously. The gastroscope was introduced through the mouth, and advanced to the fourth part of the duodenum. Small bowel enteroscopy was deemed necessary. The Endoscope was introduced through the and advanced to the. The upper GI endoscopy was accomplished without difficulty. The patient tolerated the procedure well. Scope In: 2:40:53 PM Scope Out: 2:45:09 PM Total Procedure Duration Time 0 hours 4 minutes 16 seconds Findings: LA Grade D (one or more mucosal breaks involving at least 75% of esophageal circumference) esophagitis with bleeding was found 31 to 40 cm from the incisors. Biopsies were taken with a cold forceps for histology. Verification of patient identification for the specimen was done. Estimated blood loss was minimal. A large hiatal hernia was present. Diffuse moderate inflammation characterized by congestion (edema), erosions and erythema was found in the duodenal bulb. Impression: - LA Grade D erosive esophagitis with bleeding. Biopsied. - Large hiatal hernia. - Acute duodenitis. Recommendation: - [facility]. - Full liquid diet today. - Continue present medications. - Await pathology results. - Repeat upper endoscopy to check healing. Procedure Code(s): --- Professional --- 47794, Small intestinal endoscopy, enteroscopy beyond second portion of duodenum, not including ileum; with biopsy, single or multiple CPT copyright 2021 [employer]. All rights reserved. The codes documented in this report are preliminary and upon coder operator review may be revised to meet current compliance requirements. Troy Self DO 08/28/2024 2:50:25 PM This report has been signed electronically. Number of Addenda: 0 Note Initiated On: 08/28/2024 1:04 PM
--- NOTE | 2024-08-28 14:53 | PCM.POST.ANE ---
Anesthesia: Postop Eval I Current Vital Signs Temperature: 98.4 F Pulse Rate: 89 Blood Pressure: 118/101 Respiratory Rate: 18 Pulse Ox: 98 Oxygen Delivery Method: Room Air Assessment Airway patent: Yes Spontaneous unlabored respirations: Yes Mental status: Awake and Calm nausea: No Vomiting: No Anesthesia Complication: No Fluid Hydration Crystalloid volume administer (ml): 40 Total IV fluid infused: 40 Progress Note Anesthesia document: Postop Eval 1 completed: Yes
--- NOTE | 2024-08-28 20:28 | PCM.POSTANE2 ---
Anesthesia Postop Eval I Sum Postop Eval Completion status Anesthesia document: Postop Eval 1 completed: Yes Anesthesia Postop Eval I Summary Anesthesia Postop Eval I Summary: Anesthesia Postop Eval I: Assessment Summary Airway patent Yes 08/28/24 14:53 [email or web address] Spontaneous unlabored Yes 08/28/24 14:53 [email or web address] respirations Mental status Awake,Calm 08/28/24 14:53 [email or web address] nausea No 08/28/24 14:53 [email or web address] Vomiting No 08/28/24 14:53 [email or web address] Anesthesia Postop Eval I: Fluid Summary Crystalloid volume administer 40 08/28/24 14:53 [email or web address] (ml) Colloids volume administered ( ml) Blood Product volume administered (ml) Total IV fluid infused 40 08/28/24 14:53 [email or web address] Anesthesia Postop Eval I: Summary Notes Anesthesia Complication No 08/28/24 14:53 [email or web address] Anesthesia Complication Comment: Post-operative progress note Anesthesia: Postop Eval II Evaluation Mental status: Awake and Calm Pain Level: 0 nausea: No Vomiting: No Complications Anesthesia Complication: No
[2024-08-28] MEDS: Magnesium Chloride 64 MG Delay Rel.Tablet 128 MG PO (21:43)
[2024-08-28] MEDS: Ceftriaxone 1 GM/50 ML BAG IV (21:43)
[2024-08-29] MEDS: Pantoprazole Sodium 80 MG in 0.9% Normal Saline (100mL Bag) 80 ML 10 MG CONT INF (04:02)
[2024-08-29 04:04] VITALS: BP 125/69; PULSE 83; RESP 18; TEMP 36.6; O2SAT 96
[2024-08-29 05:27] VITALS: BMI 26.7
[2024-08-29] MEDS: Acetaminophen 325 MG Tablet 650 MG PO (06:09)
[2024-08-29 06:13] LABS: Absolute Lymphocyte Count 1.62 X10^3/uL (0.83-4.51); Absolute Neutrophil Count 1.7 X10^3/uL (2.0-7.7); Basophil# 0.02 X10^3/uL; Basophil% 0.5 % (0-1); Eosinophil# 0.11 X10^3/uL; Eosinophils% 2.8 % (0-5); Hematocrit 32.8 % (37-47); Hemoglobin 10.7 g/dL (12.0-15.0); Lymphocyte # 1.62 X10^3/ul (0.83-4.51); Lymphocyte % 41.9 % (19-41); Mean Corp Hgb Conc 32.6 g/dL (32-36); Mean Corpuscular Volume 91.9 fL (81-99); Mean Platelet Vol. 9.4 fl (6.2-12.0); Monocyte% 10.3 % (0-10); NRBC Flagged by Analyzer 0 % (0-5); Neutrophil # 1.71 X10^3/uL (2.7-7.7); Neutrophil % 44.2 % (47-70); Platelet Count 205 K/mm3 (150-450); RBC Distribution Width CV 14.3 % (11.6-14.6); RBC Distribution Width SD 48.5 fl (35.1-43.9); Red Blood Count 3.57 M/mm3 (4.2-5.4); White Blood Count 3.9 K/mm3 (4.4-11.0)
[2024-08-29 07:15] LABS: AST(SGOT) 32 U/L (<=31); Alanine Aminotransfer ALT/SGPT 15 U/L (<=34); Albumin, Serum 2.8 g/dL (3.4-4.8); Alkaline Phosphatase 134 U/L (35-104); Anion Gap 12 (5-15); BUN 5 mg/dL (4-19); BUN/Creat Ratio 7.9 RATIO (10-20); Bilirubin, Direct 0.18 mg/dL (0.00-0.30); Calcium,Total 8.5 mg/dL (7.6-11.0); Carbon Dioxide 22.5 mmol/L (21.0-32.0); Chloride 102 mmol/L (98-108); Creatinine, Serum 0.65 mg/dL (0.70-1.20); EST Glomerular Filtration Rate 98 (>60); Estimated Creatinine Clearance 88.17 ml/min (50-250); Glucose 83 mg/dL (70-99); Potassium 3.6 mmol/L (3.3-5.1); Protein, Total 5.8 g/dL (5.9-8.4); Sodium Level 136 mmol/L (133-145); Total Bilirubin 0.42 mg/dL (0.00-1.30)
--- NOTE | 2024-08-29 07:16 | PCM.PN.HOSP ---
Reason for Visit Reason for Visit: Diagnoses Gastrointestinal hemorrhage, unspecified (08/26/24) Objective Data Objective Data Vital Signs: Vital Signs Temp Pulse Resp BP Pulse Ox O2 Del Method 98 F 83 18 125/69 H 96 Room Air 08/29/24 04:04 08/29/24 04:04 08/29/24 04:04 08/29/24 04:04 08/29/24 04:04 08/29/24 04:04 Oxygen Delivery Method Room Air Weight: 197 lb 5.019 oz Body Mass Index (BMI) 26.7 Intake & Output: Intake and Output for Last 24 Hours 08/27/24 08/28/24 08/29/24 23:59 23:59 23:59 Intake Total 2350.67 / 2350.67 317.25 / 717.25 1000 / 1000 Output Total 350 / 850 1000 / 1000 Balance 2350.67 / 2350.67 -32.75 / -132.75 0 / 0 Lab / Micro Data 08/29/24 05:06 08/29/24 05:06 Labs: Laboratory Results - last 24 hr 08/29/24 05:06: WBC 3.9 L, RBC 3.57 L, Hgb 10.7 L, Hct 32.8 L, MCV 91.9, MCH 30.0, MCHC 32.6, RDW Std Deviation 48.5 H, RDW Coeff of Angelo 14.3, Plt Count 205, MPV 9.4, Immature Gran % (Auto) 0.300, Neut % (Auto) 44.2 L, Lymph % (Auto) 41.9 H, [place] % (Auto) 10.3 H, Eos % (Auto) 2.8, Baso % (Auto) 0.5, Absolute Neuts (auto) 1.7 L, Absolute Lymphs (auto) 1.62, Nucleated RBC % 0, Sodium 136, Potassium 3.6, Chloride 102, Carbon Dioxide 22.5, Anion Gap 12, BUN 5, Creatinine 0.65 L, Estim Creat Clear Calc 88.17, Est GFR (MDRD) Non-Af 98, BUN/Creatinine Ratio 7.9 L, Glucose 83, Calcium 8.5, Total Bilirubin 0.42, Direct Bilirubin 0.18, AST 32, ALT 15, Alkaline Phosphatase 134 H, Total Protein 5.8 L, Albumin 2.8 L, Globulin 3.0 Micro: Microbiology 04/15/25 Unknown Urine, Catheterized Urine Culture - Final Escherichia coli Radiography Diagnostic Testing: Radiology Impression Abdomen Ultrasound 08/28/24 06:30 IMPRESSION: 1. Hepatomegaly. 2. Hepatic steatosis. 3. Cholelithiasis without acute cholecystitis. 4. Nondilated biliary tree. 5. Limited evaluation of the pancreas secondary to overlying bowel gas. Reading Location: [place] [id number] Assessment & Plan Assessment/Plan (1) GI bleed: PLAN: Plan Patient is a 63-year-old lady with history of chronic alcoholic liver disease who presented with progressive generalized weakness as well as coffee-ground emesis admitted to monitored bed for subsequent inpatient evaluation 1. Upper GI bleed ? Admit patient with chronic liver disease. Patient admitted to monitored bed started on Protonix, every 6 H&H ordered consult placed to GI. In view of patient underlying liver disease patient was started on ceftriaxone 08/29: Patient had EGD which shows erosive esophagitis, large hiatus hernia. Repeat EGD advised although timing/duration not mentioned 2. Anemia secondary to acute blood loss anemia monitoring H&H with plans to transfuse if patient hemoglobin falls below 7 or patient is deemed to be symptomatic 3 Acute cystitis ?Patient had pyuria as well as imaging findings consistent with cystitis. 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 Distended gallbladder with cholelithiasis ? Ordered gallbladder ultrasound for subsequent eval 08/28/2024; patient gallbladder ultrasound did not show 1. Hepatomegaly. 2. Hepatic steatosis. 3. Cholelithiasis without acute cholecystitis. 4. Nondilated biliary tree. 5. Limited evaluation of the pancreas secondary to overlying bowel gas. 5. Acute colitis ? Based on CAT scan findings patient is on antibiotics 6. Chronic alcoholic liver disease ? Patient drinks alcohol more than 3 shots daily. 7. Hypothyroidism ? Patient is on levothyroxine home dose continued 8. Hypokalemia -Corrected per protocol, Repeat potassium levels ordered for a.m.. 9. Depression with anxiety ? Patient is on venlafaxine?continue 10. Hypomagnesemia -Corrected for protocol, ordered repeat magnesium for a.m. 11. Left adnexal cyst, incompletely characterized -: CT with 3.8 cm left adnexal cyst, given patient is postmenopausal age recommended outpatient pelvic ultrasound, patient instructed to follow-up with primary care physician for subsequent care 12. Suspected protein calorie malnutrition ? Consult placed to dietitian 13. DVT prophylaxis ? Bilateral SCDs for now given patient presentation
[2024-08-29 09:05] VITALS: BP 122/72; PULSE 80; RESP 18; TEMP 36.8; O2SAT 99
[2024-08-29] MEDS: Venlafaxine XR 37.5 MG Capsule PO (09:09)
[2024-08-29] MEDS: Menthol/Lanolin/Calamine/Znox 113 GM Tube 1 APPLIC TOPICAL (09:09)
[2024-08-29] MEDS: Folic Acid 1 MG Tablet PO (09:09)
[2024-08-29] MEDS: Thiamine Hydrochloride 100 MG Tablet PO (09:09)
[2024-08-29] MEDS: Magnesium Chloride 64 MG Delay Rel.Tablet 128 MG PO (09:09)
[2024-08-29] MEDS: Multivitamins,Ther W-Minerals Tablet 1 TABLET PO (09:09)
--- NOTE | 2024-08-29 11:04 | DCINST_ITS ---
Discharge Instructions Diet Discharge Diet: Light diet - advance as tolerated DC O2, CPAP, BIPAP needs Home O2 Discharge instructions: No Dressing / Incision Discharge Activity: Return to Normal Activity and May Not Drive Weight Bearing Status: Weight bearing as tolerated Dressing / Incision Call your doctor if you observe: Fever of 101 or Higher, Coldness, Increased Pain, Numbness or Tingling, Change in Color, Inability to urinate, Inability to have a bowel movement, Using more than 1 pad per hour, Shortness of breath, Dizziness, Fainting spells, Swelling in the ankles, Chest pain, Prolonged hiccupping, Increased palpitations (irregular heartbeat) and Calf discomfort Follow Up Care When: IN 2 WEEKS Test Results: Test results from this visit will be discussed in further detail at your follow- up appointment, if applicable. Discharge Plan Admission Admit Date/Time: 08/26/24 18:33 Primary Reason for Your Visit: Severe erosive esophagitis with bleeding. Large hiatus hernia. Attending Provider: Jerry Lopez Primary Care Provider: Gonsalo Shannon Consulting Providers: Tiff Ramires; Richard Porter Discharge Orders/Prescriptions Prescriptions: Continued cyanocobalamin (vitamin B-12) 1,000 mcg/mL solution 1,000 mcg IM QMONTH folic acid 1 mg tablet 1 mg PO QDAY ipratropium-albuterol 0.5 mg-3 mg(2.5 mg base)/3 mL solution for nebulization 3 ml inhalation Q4H PRN (Reason: shortness of breath) lidocaine 4 % gel 1 applic topical HS Mag Glycinate 100 mg tablet 100 mg PO BID magnesium oxide 400 mg magnesium tablet 400 mg PO QDAY thiamine HCl (vitamin B1) 100 mg tablet 100 mg PO QDAY calcium carbonate [Tums] 200 mg calcium (500 mg) tablet,chewable 200 mg PO BID PRN (Reason: dyspepsia) venlafaxine 37.5 mg capsule,extended release 24hr 37.5 mg PO QDAY cholecalciferol (vitamin D3) 1,250 mcg (50,000 unit) capsule 1,250 mcg PO 2XW zinc oxide 20 % paste 1 ea topical Q8H PRN (Reason: skin irritation) pantoprazole 40 mg tablet,delayed release (DR/EC) 40 mg PO BID 30 Days Qty: 60 2RF Discontinued prednisone 50 mg tablet 50 mg PO QDAY Referrals / Follow Up: Gonsalo Shannon MD [Primary Care Provider] - Neelam Conklin PA [Med Staff - [facility] Practice Prof] - Within 1 Month Disposition Disposition (needs filled in before D/C Order can be placed): Home, Self Care
--- NOTE | 2024-08-29 11:26 | CASEMGMT ---
Addendum entered by Zuleika Cervantes 08/29/24 13:28: Received tc from [facility] transport, the only van available is the large van. KYLIE ROE into pt room to discuss this with pt. Pt does not feel she could get in it unassisted. Pt states she cannot use her insurance as they don't pick her up unless the hospital calls. Requested friction saw operator to set up transport for pt home. Addendum entered by Zuleika Cervantes 08/29/24 12:37: Received notification from pt nurse that pt now does want to use the hospital van to transport home. TC to [facility] van, vm left with request of location for transport and for today. Will await returned call. Original Note: KYLIE ROE into pt room, pt sitting up in bed eating. Discussed with patient that she has a dc order in. Pt states she needs to go home and pack. Pt denies need for SNF, [place]. Pt states she cannot live on $50/month. Pt states she is calling a taxi to go home. She denies need to use hospital van. Pt denies need for HHC as she is only going to be at her home until the end of the month. Pt states that she may plan to go to a jail after the end of the month. ST came in room during conversation and pt denied any further homegoing needs.
--- NOTE | 2024-08-29 12:06 | CASEMGMT ---
Social Work- SW received notice that pt s medically ready for discharge. NELI called and left a voicemail for Ethan, [facility] , to advise of discharge. NELI faxed discharge instructions to Ethan. Pt continues to decline placement at this time and will be d/c home to collect her belongings prior to eviction. NELI called and left a voicemail for Td at [facility] to advise of discharge and pending eviction. KRZYSZTOF Low
--- NOTE | 2024-08-29 12:09 | DS.PCM_ITS ---
Providers Date of Admission: 08/26/24 Date of Discharge: 08/29/24 Primary Care Physician: Dr. Gonsalo Shannon MD Consultations 08/26/24 22:07 Consult: Gastroenterology Routine Consulting Provider: [facility] Reason for Consult: GI bleed EMERGENT Consult: No MD Notified: Yes Date Notified: 08/26/24 Time Notified: 18:34 Method of Notification: Text Reason For Visit: GI BLEED, UTI Diagnosis Discharge Diagnosis (1) GI bleed: Status: Acute Code(s): K92.2 - Gastrointestinal hemorrhage, unspecified Plan Patient is a 63-year-old lady with history of chronic alcoholic liver disease who presented with progressive generalized weakness as well as coffee-ground emesis admitted to monitored bed for subsequent inpatient evaluation. She has history of binge alcohol drinking 1. Upper GI bleed ? Admit patient with chronic liver disease. Patient admitted to monitored bed started on Protonix, every 6 H&H ordered consult placed to GI. In view of patient underlying liver disease patient was started on ceftriaxone 08/29: Patient had EGD which shows erosive esophagitis, LA grade 4 with bleeding, large hiatus hernia and acute duodenitis. Discussed with Dr. Self. Prescription for pantoprazole 40 mg twice daily. H&H 10.7/32.8%. Advised follow-up in GI office in 1 month. 2. Acute on chronic moderate normochromic, normocytic anemia secondary to acute blood loss anemia monitoring H&H with plans to transfuse if patient hemoglobin falls below 7 or patient is deemed to be symptomatic 08/29: Her baseline hemoglobin about 13 g and it dropped to 10.6 g%. Patient on ferrous sulfate. 3 Acute cystitis ?Patient had pyuria as well as imaging findings consistent with cystitis. 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 4. Distended gallbladder with cholelithiasis ? Ordered gallbladder ultrasound for subsequent eval 08/28/2024; patient gallbladder ultrasound did not show 1. Hepatomegaly. 2. Hepatic steatosis. 3. Cholelithiasis without acute cholecystitis. 4. Nondilated biliary tree. 5. Limited evaluation of the pancreas secondary to overlying bowel gas. 4/18: No acute cholecystitis as per the clinical exam and ultrasound. 5. Under distention of descending, sigmoid colon: CT was done which shows minimal diverticulosis. Minimal rectosigmoid/descending colonic wall thickening probably related to underdistention. Patient does not have tenderness on left lower quadrant or left upper quadrant therefore do not think there is significant colitis. Patient on antibiotic for UTI anyways. 6. Chronic alcoholic liver disease ? Patient drinks alcohol more than 3 shots daily. Her drinking pattern is me. She drinks every 1-2 hours for 1 and half weeks and then does not drink for few weeks or few months. 7. Hypothyroidism ? Patient is on levothyroxine home dose continued 8. Hypokalemia -Corrected per protocol, Repeat potassium levels ordered for a.m.. 9. Depression with anxiety ? Patient is on venlafaxine?continue 10. Hypomagnesemia -Corrected for protocol, ordered repeat magnesium for a.m. 11. Left adnexal cyst, incompletely characterized -: CT with 3.8 cm left adnexal cyst, given patient is postmenopausal age recommended outpatient pelvic ultrasound, patient instructed to follow-up with primary care physician for subsequent care 12. Suspected protein calorie malnutrition ? Consult placed to dietitian 13. DVT prophylaxis ? Bilateral SCDs for now given patient presentation Discharge medication reconciliation done. Discharge follow-up instructions completed. Discharge process discussed with the patient and all questions were answered to patient's satisfaction. Follow with PCP in 1 to 2 weeks Total time spent, exact 35 minutes on discharge meds reconciliation, examination, coordination of care with nurses and ancillary staff, review of imaging and blood test and discussion with the patient on follow-up instructions. Medications at Discharge Home Medications calcium carbonate (Tums) 200 mg PO BID PRN dyspepsia 07/23/24 cholecalciferol (vitamin D3) 1,250 mcg (50,000 unit) capsule 1,250 mcg PO 2XW 07/23/24 cyanocobalamin (vitamin B-12) 1,000 mcg/mL injection solution 1,000 mcg IM QMONTH 07/23/24 folic acid 1 mg tablet 1 mg PO QDAY 07/23/24 ipratropium 0.5 mg-albuterol 3 mg (2.5 mg base)/3 mL nebulization soln 3 ml inhalation Q4H PRN shortness of breath 07/23/24 lidocaine 4 % topical gel 1 applic topical HS 07/23/24 magnesium glycinate 100 mg (as glycinate) tablet (Mag Glycinate) 100 mg PO BID 07/23/24 magnesium oxide 400 mg PO QDAY 07/23/24 thiamine HCl (vitamin B1) 100 mg tablet 100 mg PO QDAY 07/23/24 venlafaxine 37.5 mg capsule,extended release 24 hr 37.5 mg PO QDAY 07/23/24 zinc oxide 20 % topical paste 1 ea topical Q8H PRN skin irritation 07/23/24 ascorbic acid (vitamin C) 500 mg tablet 500 mg PO BID #60 tabs 08/29/24 ferrous sulfate 325 mg (65 mg iron) tablet 325 mg PO QODAY #30 tabs 08/29/24 pantoprazole 40 mg tablet,delayed release 40 mg PO BID GERD 30 days #60 tabs 08/29/24 Physical Exam Narrative Seen and examined. Patient follows in GI office for alcoholic liver disease, chronic alcoholic hepatitis. She has binge drinking alcohol pattern Complaining of mild epigastric pain. Physical exam: General: Alert, Oriented x3, Cooperative. BMI 26.8 kg/m? HEENT: Atraumatic, PERRLA, EOMI, Normocephalic Oral: No Gingival or Mucosal Lesions/ Ulcerations Neck: Supple, No JVD, Negative Carotid Bruits Chest wall/Lungs: Air entry diminished in bilateral lung bases. No crepitation/rhonchi Cardiovascular: Regular rate, Regular Rhythm, Normal S1, Normal S2, No M/G/R Abdomen: Bowel Sounds Present, Soft, mild epigastric tenderness, Non-Distended : No dysuria. No renal angle tenderness. No suprapubic tenderness. Extremities: No edema, Capillary Refill Less than 3 Seconds Skin: No rashes, No breakdown Musculoskeletal: No Tenderness to Palpation of Joints or Extremities Neurological: Cranial nerves II-XII grossly intact, DTR 2+/4. No acute focal neurological deficit. Psych/Mental Status: Flat affect Weight / BMI Weight Weight: 197 lb 5.019 oz Body Mass Index (BMI) 26.7 ABG / Lab / Microbiology Data 08/29/24 05:06 08/29/24 05:06 Laboratory: Laboratory Results - last 24 hr 08/29/24 05:06: WBC 3.9 L, RBC 3.57 L, Hgb 10.7 L, Hct 32.8 L, MCV 91.9, MCH 30.0, MCHC 32.6, RDW Std Deviation 48.5 H, RDW Coeff of Angelo 14.3, Plt Count 205, MPV 9.4, Immature Gran % (Auto) 0.300, Neut % (Auto) 44.2 L, Lymph % (Auto) 41.9 H, [place] % (Auto) 10.3 H, Eos % (Auto) 2.8, Baso % (Auto) 0.5, Absolute Neuts (auto) 1.7 L, Absolute Lymphs (auto) 1.62, Nucleated RBC % 0, Sodium 136, Potassium 3.6, Chloride 102, Carbon Dioxide 22.5, Anion Gap 12, BUN 5, C reatinine 0.65 L, Estim Creat Clear Calc 88.17, Est GFR (MDRD) Non-Af 98, B UN/Creatinine Ratio 7.9 L, Glucose 83, Calcium 8.5, Total Bilirubin 0.42, Direct Bilirubin 0.18, AST 32, ALT 15, Alkaline Phosphatase 134 H, Total Protein 5.8 L, Albumin 2.8 L, Globulin 3.0 Microbiology: Microbiology 08/26/24 Unknown Urine, Catheterized Urine Culture - Final Escherichia coli D/C Instructions Discharge Diet: Light diet - advance as tolerated Weight Bearing Status: Weight bearing as tolerated Call your doctor if you observe: Fever of 101 or Higher, Coldness, Increased Pain, Numbness or Tingling, Change in Color, Inability to urinate, Inability to have a bowel movement, Using more than 1 pad per hour, Shortness of breath, Dizziness, Fainting spells, Swelling in the ankles, Chest pain, Prolonged hiccupping, Increased palpitations (irregular heartbeat) and Calf discomfort DC O2, CPAP, BIPAP Needs Home O2 Discharge instructions: No When: IN 2 WEEKS Meaningful Use Info Meaningful Use Meaningful Use Diagnoses (Choose all that apply): None applicable Ischemic Stroke Statin Dosing Therapy Reference: STATIN DOSE THERAPY REFERENCE: * Patients > 75 years receive moderate or high dose statin therapy. * Patients 75 years or YOUNGER should receive HIGH intensity statin dose unless contraindicated. You will be required to document reason for non-treatment if statin daily dose does not meet guidelines. HIGH DOSE STATIN THERAPY DAILY Atorvastatin > than or = to 40 mg Rosuvastatin > than or = to 20 mg Amlodipine + Atorvastatin > than or = to 2.5/40 mg Ezetimibe + Simvastatin 10/80 mg Simvastatin 80mg Discharge Plan Admission Admit Date/Time: 08/26/24 18:33 Primary Reason for Your Visit: Severe erosive esophagitis with bleeding. Large hiatus hernia. Attending Provider: Jerry Lopez Primary Care Provider: Gonsalo Shannon Consulting Providers: Tiff Ramires; Richard Porter Discharge Orders/Prescriptions Prescriptions: New ferrous sulfate 325 mg (65 mg iron) tablet 325 mg PO QODAY Qty: 30 2RF ascorbic acid (vitamin C) 500 mg tablet 500 mg PO BID Qty: 60 2RF Continued cyanocobalamin (vitamin B-12) 1,000 mcg/mL solution 1,000 mcg IM QMONTH folic acid 1 mg tablet 1 mg PO QDAY ipratropium-albuterol 0.5 mg-3 mg(2.5 mg base)/3 mL solution for nebulization 3 ml inhalation Q4H PRN (Reason: shortness of breath) lidocaine 4 % gel 1 applic topical HS Mag Glycinate 100 mg tablet 100 mg PO BID magnesium oxide 400 mg magnesium tablet 400 mg PO QDAY thiamine HCl (vitamin B1) 100 mg tablet 100 mg PO QDAY calcium carbonate [Tums] 200 mg calcium (500 mg) tablet,chewable 200 mg PO BID PRN (Reason: dyspepsia) venlafaxine 37.5 mg capsule,extended release 24hr 37.5 mg PO QDAY cholecalciferol (vitamin D3) 1,250 mcg (50,000 unit) capsule 1,250 mcg PO 2XW zinc oxide 20 % paste 1 ea topical Q8H PRN (Reason: skin irritation) pantoprazole 40 mg tablet,delayed release (DR/EC) 40 mg PO BID 30 Days Qty: 60 2RF Discontinued prednisone 50 mg tablet 50 mg PO QDAY Referrals / Follow Up: Gonsalo Shannon MD [Primary Care Provider] - Neelam Conklin PA [Med Staff - [facility] Prof] - Within 1 Month Disposition Disposition (needs filled in before D/C Order can be placed): Home, Self Care Charges/Coding Visit Charges Inpatient E&M: 97165 Disch Hosp >30min
--- NOTE | 2024-08-29 12:23 | PHA.DC.MR.R ---
Pharmacy [place] Med Reconciliation Pharmacy Service has performed discharge medication reconciliation for this patient. The patient's discharge medication list was reviewed for discrepancies and discrepancies were resolved. Medications at Discharge Home Medications calcium carbonate (Tums) 200 mg PO BID PRN dyspepsia 07/23/24 cholecalciferol (vitamin D3) 1,250 mcg (50,000 unit) capsule 1,250 mcg PO 2XW 07/23/24 cyanocobalamin (vitamin B-12) 1,000 mcg/mL injection solution 1,000 mcg IM QMONTH 07/23/24 folic acid 1 mg tablet 1 mg PO QDAY 07/23/24 ipratropium 0.5 mg-albuterol 3 mg (2.5 mg base)/3 mL nebulization soln 3 ml inhalation Q4H PRN shortness of breath 07/23/24 lidocaine 4 % topical gel 1 applic topical HS 07/23/24 magnesium glycinate 100 mg (as glycinate) tablet (Mag Glycinate) 100 mg PO BID 07/23/24 magnesium oxide 400 mg PO QDAY 07/23/24 thiamine HCl (vitamin B1) 100 mg tablet 100 mg PO QDAY 07/23/24 venlafaxine 37.5 mg capsule,extended release 24 hr 37.5 mg PO QDAY 07/23/24 zinc oxide 20 % topical paste 1 ea topical Q8H PRN skin irritation 07/23/24 pantoprazole 40 mg tablet,delayed release 40 mg PO BID GERD 30 days #60 tabs 08/29/24
--- NOTE | 2024-08-29 14:00 | PCA ---
transportation set up for pt through [facility], 3 hr window starting at 2 , trip #[id number], [facility] #[phone]
[2024-08-29 14:11] VITALS: BP 103/73; PULSE 86; RESP 18; TEMP 36.7; O2SAT 98
== END 2024-08-29 14:31 | disposition home or self-care (01) | DRG 381 ==
LOC: ED 18:50 → MS2 21:46 → MS3 08-27 18:28
PROVIDERS: Internal Medicine; Internal Medicine Gastroenterology; Admitting Provider Family Medicine; Emergency Provider Emergency Medicine; PCP Family Medicine; Visit Provider Internal Medicine
PROC: 0DJ08ZZ Inspection of Upper Intestinal Tract, Via Natural or Artificial Opening Endoscopic (ICD-10-PCS; CPT 43235; principal; 2024-08-28 12:25)
DX: K22.11 Ulcer of esophagus with bleeding (principal); E44.1 Mild protein-calorie malnutrition; D62 Acute posthemorrhagic anemia; N30.00 Acute cystitis without hematuria; F31.9 Bipolar disorder, unspecified; K70.10 Alcoholic hepatitis without ascites; E03.9 Hypothyroidism, unspecified; K29.80 Duodenitis without bleeding; E87.6 Hypokalemia; K52.9 Noninfective gastroenteritis and colitis, unspecified; K82.8 Other specified diseases of gallbladder; F41.8 Other specified anxiety disorders; K80.20 Calculus of gallbladder without cholecystitis without obstruction; K76.0 Fatty (change of) liver, not elsewhere classified; K44.9 Diaphragmatic hernia without obstruction or gangrene; R11.2 Nausea with vomiting, unspecified; F10.129 Alcohol abuse with intoxication, unspecified; K86.89 Other specified diseases of pancreas; Z87.891 Personal history of nicotine dependence; Z90.710 Acquired absence of both cervix and uterus; Z78.0 Asymptomatic menopausal state; R73.9 Hyperglycemia, unspecified; R82.81 Pyuria; N39.41 Urge incontinence; Y90.8 Blood alcohol level of 240 mg/100 ml or more; Z68.26 Body mass index [BMI] 26.0-26.9, adult; Z88.1 Allergy status to other antibiotic agents
CPT/HCPCS: 36415; 73502; 74177; 76705; 80048; 80053; 80076; 81001; 82077; 83036; 83690; 83735; 84100; 84443; 85014; 85018; 85025; 85610; 85730; 86850; 86900; 86901; 87077; 87086; 87088; 87186; 88305; 92610; 93005; 94640; 94668; 97110; 97116; 97162; 97802; 99285; Q9967; A4216; J2405

== ENCOUNTER 2024-10-02 09:56 | Inpatient (IN) | payer MEDICARE, MEDICAID, SELFPAY ==
[2024-10-02] VITALS (8 sets, daily range): BP systolic 79–132; BP diastolic 51–91; PULSE 84–142; RESP 16–18; TEMP 36.5–37.2; O2SAT 90–100; BMI 25.2; BMI 24.6
--- NOTE | 2024-10-02 10:07 | EKG12_ITS ---
Test Reason : Blood Pressure : */* mmHG Vent. Rate : 78 BPM Atrial Rate : 78 BPM P-R Int : 178 ms QRS Dur : 88 ms QT Int : 422 ms P-R-T Axes : -13 10 37 degrees QTcB Int : 481 ms Normal sinus rhythm QTcB >= 480 msec Abnormal ECG Confirmed by PATRICIO GASTON, TOM ([id number]), communications editor QUE POLANCO ([id number]) on 10/07/2024 6:51:38 AM Referred By: FRIDA Confirmed By: TOM CURRY MD
--- NOTE | 2024-10-02 10:17 | EX.ED.DYSGE1 ---
HPI History of Present Illness Chief Complaint: Weakness Narrative Narrative: 64-year-old female presents with generalized weakness of her bilateral lower extremities that she has been experiencing over the last few days. She relates history that she was supposed to have an ultrasound performed but she had to cancel the appointment because she was so weak. She was supposed to get ready for the rescheduled ultrasound of her abdomen today, but she had to take a breather and she sat down on her rollator. Afterwards, she was unable to stand. She has chronic pain in her bilateral lower extremities but denies any recent swelling. She relates history that she had diarrhea for 2 days starting 3 days ago but that has resolved. She presents mainly because of the generalized weakness and inability to walk/difficulty standing. PFSH PFSH Medical History Cholelithiasis Anemia Migraines Difficulty walking Urge incontinence Acute cystitis with hematuria Muscle weakness Osteoarthritis Alcoholic hepatitis Alcoholic liver disease Acute respiratory failure with hypoxia Metabolic encephalopathy Major depression Protein calorie malnutrition Acute post-hemorrhagic anemia Dysphagia, oropharyngeal phase Malignant neoplasm of colon Ulcer Restless legs Injury of head and neck Anemia Alcohol abuse Bipolar disorder Hypothyroidism Osteoporosis Kidney stones GERD (gastroesophageal reflux disease) GI bleed Former smoker Home Medications ?Medication ?Instructions ?Recorded ?Last Taken ?Type calcium carbonate (Tums) 200 mg PO BID PRN dyspepsia 07/23/24 Unknown History cholecalciferol (vitamin D3) 1,250 1,250 mcg PO 2XW 07/23/24 Unknown History mcg (50,000 unit) capsule cyanocobalamin (vitamin B-12) 1,000 mcg IM QMONTH 07/23/24 Unknown History 1,000 mcg/mL injection solution folic acid 1 mg tablet 1 mg PO QDAY 07/23/24 Unknown History ipratropium 0.5 mg-albuterol 3 mg 3 ml inhalation Q4H PRN shortness 07/23/24 Unknown History (2.5 mg base)/3 mL nebulization of breath soln lidocaine 4 % topical gel 1 applic topical HS 07/23/24 Unknown History magnesium glycinate 100 mg (as 100 mg PO BID 07/23/24 Unknown History glycinate) tablet (Mag Glycinate) magnesium oxide 400 mg PO QDAY 07/23/24 Unknown History thiamine HCl (vitamin B1) 100 mg 100 mg PO QDAY 07/23/24 Unknown History tablet venlafaxine 37.5 mg 37.5 mg PO QDAY 07/23/24 Unknown History capsule,extended release 24 hr zinc oxide 20 % topical paste 1 ea topical Q8H PRN skin 07/23/24 Unknown History irritation ascorbic acid (vitamin C) 500 mg 500 mg PO BID #60 tabs 08/29/24 Unknown Rx tablet ferrous sulfate 325 mg (65 mg 325 mg PO QODAY #30 tabs 08/29/24 Unknown Rx iron) tablet pantoprazole 40 mg tablet,delayed 40 mg PO BID GERD 30 days #60 tabs 08/29/24 Unknown Rx release Allergy/AdvReac Type Severity Reaction Status Date / Time amoxicillin Allergy Intermediate Swelling, Verified 10/02/24 09:57 itching Family History Mother Alcohol abuse CAD (coronary artery disease) Heart disease Hypertension Myocardial infarction Father Alcohol abuse Cancer Surgical History History of total knee arthroplasty History of right hip replacement H/O total hysterectomy Social History household members: none Smoking Status: Never smoker alcohol intake: current alcohol intake frequency: 3 or more drinks per day details: Notes binge drinking, whiskey. substance use type: other details: Former cannabis usage. Stopped ~ 40 years ago. ROS ROS ED ROS Narrative Review of systems positive for generalized weakness, difficulty standing and walking. No fevers or chills, no nausea or vomiting. Recent diarrhea over the last few days, resolved. No abdominal pain. Chronic bilateral leg pain but no recent swelling. EXAM Physical Exam Narrative Exam Narrative: Afebrile. Vital signs noted. Nontoxic-appearing. Cardiovascular examination reveals a regular rate and rhythm. Lungs are clear to auscultation bilaterally. Abdomen is soft, nontender, with positive bowel sounds. No guarding or rebound. Neurological examination nonfocal, nonlateralizing. Able to flex and extend bilateral lower extremities at knees and hips. No noted pedal edema bilaterally, no erythema palpable dorsalis pedis pulses bilaterally. Const Vital Signs: 10/02/24 09:57 10/02/24 10:03 Temperature 99.0 F Temperature Source Oral Pulse Rate 96 Respiratory Rate 16 Respiratory Effort Normal Respiratory Pattern Normal Blood Pressure 114/91 H Blood Pressure Mean 98 Pulse Ox 98 Oxygen Delivery Method Room Air MDM MDM MDM Narrative Medical decision making narrative: The differential diagnosis includes but not limited to generalized weakness secondary to dehydration versus other electrolyte imbalance given her diarrhea. I do not feel that she needs an emergent ultrasound performed of her abdomen for which she was scheduled. She will be bolused normal saline and laboratories checked as well as urinalysis and chest x-ray to look for infectious causes of her generalized weakness. She does state that she lives at home alone. I reviewed her laboratory work and she has normal white count of 4.5 with hemoglobin normal at 12.0, hematocrit 37.3, platelet count normal at 207. CMP is significant for hypokalemia of 2.4. She has had hypokalemia in the past when compared to prior labs. BUN normal at 5 with creatinine low at 0.61. Magnesium is also low at 0.8. Alk phos slightly elevated at 201 with AST of 113. In review of her problem list, she has had alcoholic hepatitis in the past. Her potassium was replaced intravenously, and she was given oral magnesium. Although she is able to ambulate with her rollator, given her profound hypokalemia and hypomagnesemia, patient discussed with the hospitalist for observation. They would be able to get a PT OT consult as well. EKG was also obtained and interpreted myself independently as normal sinus rhythm at 78 bpm without ectopy or acute ST changes. No STEMI. QTc slightly prolonged at 481 ms. Chest x-ray in 1 view interpreted by myself independently shows no evidence of pneumonia or pneumothorax. I reviewed the radiology report which confirms my independent interpretation. Patient requested that someone look at her bedsores. She states that these were noticed by her home health aides a few days ago, and she was given a barrier cream to put on them. On chaperoned examination, she has skin breakdown/stage I decubitus ulcers on her buttocks mainly on the left and 1 in the midline without purulent drainage or surrounding erythema. I discussed the patient with Dr. Calvo, who will admit her to the PCU. Disposition is admit in stable condition. History & Record Review Discussion w/independent historian: Patient Lab Data Attestation: I reviewed the patient's lab results. Labs: Laboratory Results - last 24 hr 10/02/24 10:20 WBC 4.5 RBC 4.18 L Hgb 12.0 Hct 37.3 MCV 89.2 MCH 28.7 MCHC 32.2 RDW Std Deviation 56.8 H RDW Coeff of Angelo 17.8 H Plt Count 207 MPV 9.9 Immature Gran % (Auto) 0.400 Neut % (Auto) 49.4 Lymph % (Auto) 32.9 [place] % (Auto) 13.9 H Eos % (Auto) 2.7 Baso % (Auto) 0.7 Absolute Neuts (auto) 2.2 Absolute Lymphs (auto) 1.47 Nucleated RBC % 0 Sodium 135 Potassium 2.4 L* Chloride 93 L Carbon Dioxide 28.2 Anion Gap 14 BUN 5 Creatinine 0.61 L Estim Creat Clear Calc 79.83 Est GFR (MDRD) Non-Af 98 BUN/Creatinine Ratio 8.1 L Glucose 139 H Calcium 8.6 Magnesium 0.8 L* Total Bilirubin 0.94 AST 113 H ALT 35 Alkaline Phosphatase 201 H Total Protein 7.0 Albumin 3.1 L Globulin 3.9 Albumin/Globulin Ratio 0.8 L Radiography Diagnostic Testing: Clinical Impression(s) from Imaging Studies Chest X-Ray 10/02/24 10:23 IMPRESSION: No Acute Findings. Reading Location: [place] [address] Management Discussion w/another healthcare provider: Hospitalist (Dr. Calvo) Discharge Plan Triage Chief Complaint: Weakness ED Provider: Jose Gardner Dx/Rx/DC Orders Clinical Impression: Generalized weakness, Hypokalemia, Hypomagnesemia Prescriptions: No Action cyanocobalamin (vitamin B-12) 1,000 mcg/mL solution 1,000 mcg IM QMONTH folic acid 1 mg tablet 1 mg PO QDAY ipratropium-albuterol 0.5 mg-3 mg(2.5 mg base)/3 mL solution for nebulization 3 ml inhalation Q4H PRN (Reason: shortness of breath) lidocaine 4 % gel 1 applic topical HS Mag Glycinate 100 mg tablet 100 mg PO BID magnesium oxide 400 mg magnesium tablet 400 mg PO QDAY thiamine HCl (vitamin B1) 100 mg tablet 100 mg PO QDAY calcium carbonate [Tums] 200 mg calcium (500 mg) tablet,chewable 200 mg PO BID PRN (Reason: dyspepsia) venlafaxine 37.5 mg capsule,extended release 24hr 37.5 mg PO QDAY cholecalciferol (vitamin D3) 1,250 mcg (50,000 unit) capsule 1,250 mcg PO 2XW zinc oxide 20 % paste 1 ea topical Q8H PRN (Reason: skin irritation) pantoprazole 40 mg tablet,delayed release (DR/EC) 40 mg PO BID 30 Days Qty: 60 2RF ferrous sulfate 325 mg (65 mg iron) tablet 325 mg PO QODAY Qty: 30 2RF ascorbic acid (vitamin C) 500 mg tablet 500 mg PO BID Qty: 60 2RF Primary Care Provider: Care Physician,No Primary Referrals: Care Physician,No Primary [Primary Care Provider] - Print Language: Argentine
[2024-10-02] MEDS: 0.9% Normal Saline (1000mL) 1,000 ML 1000 ML IV (10:19)
--- NOTE | 2024-10-02 10:23 | RAD_ITS ---
PROCEDURE: CHEST 1 VIEW (PORTABLE) 10/02/2024 REASON FOR EXAM: WEAKNESS, COUGH TECHNIQUE: Frontal view of the chest. COMPARISON: Prior study dated June 13, 2024. FINDINGS: Hardware: EKG electrodes are seen. Heart: The heart is not enlarged. Lungs: The lungs are clear. Calcified left hilar lymph nodes. Bones: Degenerative changes of both shoulder joints. Other: RAD/Chest 1 View (Portable) IMPRESSION: No Acute Findings. Reading Location: [place] [address]
[2024-10-02 10:32] LABS: Absolute Lymphocyte Count 1.47 X10^3/uL (0.83-4.51); Absolute Neutrophil Count 2.2 X10^3/uL (2.0-7.7); Basophil# 0.03 X10^3/uL; Basophil% 0.7 % (0-1); Eosinophil# 0.12 X10^3/uL; Eosinophils% 2.7 % (0-5); Hematocrit 37.3 % (37-47); Lymphocyte # 1.47 X10^3/ul (0.83-4.51); Lymphocyte % 32.9 % (19-41); Mean Corp Hgb Conc 32.2 g/dL (32-36); Mean Corpuscular Hgb 28.7 pg (27.0-32.0); Mean Corpuscular Volume 89.2 fL (81-99); Mean Platelet Vol. 9.9 fl (6.2-12.0); Monocyte# 0.62 X10^3/uL; Monocyte% 13.9 % (0-10); NRBC Flagged by Analyzer 0 % (0-5); Neutrophil # 2.21 X10^3/uL (2.7-7.7); Neutrophil % 49.4 % (47-70); Platelet Count 207 K/mm3 (150-450); RBC Distribution Width CV 17.8 % (11.6-14.6); RBC Distribution Width SD 56.8 fl (35.1-43.9); Red Blood Count 4.18 M/mm3 (4.2-5.4); White Blood Count 4.5 K/mm3 (4.4-11.0)
[2024-10-02 10:57] LABS: ALB/GLOB Ratio 0.8 RATIO (0.9-2.4); AST(SGOT) 113 U/L (<=31); Alanine Aminotransfer ALT/SGPT 35 U/L (<=34); Albumin, Serum 3.1 g/dL (3.4-4.8); Alkaline Phosphatase 201 U/L (35-104); Anion Gap 14 (5-15); BUN 5 mg/dL (4-19); BUN/Creat Ratio 8.1 RATIO (10-20); Calcium,Total 8.6 mg/dL (7.6-11.0); Carbon Dioxide 28.2 mmol/L (21.0-32.0); Chloride 93 mmol/L (98-108); Creatinine, Serum 0.61 mg/dL (0.70-1.20); EST Glomerular Filtration Rate 98 (>60); Estimated Creatinine Clearance 79.83 ml/min (50-250); Globulin 3.9 g/dL (2.2-4.2); Glucose 139 mg/dL (70-99); Potassium 2.4 mmol/L (3.3-5.1); Sodium Level 135 mmol/L (133-145); Total Bilirubin 0.94 mg/dL (0.00-1.30)
[2024-10-02 11:01] LABS: Magnesium 0.8 mg/dL (1.5-2.2)
[2024-10-02] MEDS: KCL 40mEq in 0.9% NS 40 MEQ/1,000 ML IV.SOLN 250 MEQ IV (11:30)
[2024-10-02 11:31] LABS: Squamous Epithelial Cells - UA 0 SEEN /hpf (5-10)
[2024-10-02 11:44] LABS: Color, Urine Amber (Yellow); Glucose, Dipstick Normal (Normal); Ketone-Dipstick 5 mg/dl (Negative); Leukocyte Esterase-Dipstick 25 /ul (Negative); Nitrite-Dipstick Negative (Negative); Occult Blood-Urine 50 /ul (Negative); Protein-Dipstick 100 mg/dl (Negative); Urine Bilirubin Dipstick 3 mg/dL (Negative); Urine Clarity Sl. Cloudy (Clear); Urine Urobilinogen 4 mg/dl (Normal)
[2024-10-02] MEDS: Magnesium Chloride 64 MG Delay Rel.Tablet 128 MG PO (12:01)
[2024-10-02 12:03] LABS: Mucous, Urine 2+ /hpf (<or=2+); White Blood Cells 0-5 SEEN /hpf (0-5)
[2024-10-02 12:04] LABS: Bacteria 1+ /hpf (None Seen); Hyaline Cast 0-5 SEEN /lpf (0-5)
[2024-10-02 12:05] LABS: Red Blood Cells-Urine 0-5 SEEN /hpf (0-5)
[2024-10-02] MEDS: Potassium Chloride 10mEq/100mL 10 MEQ/100 ML IV.SOLN. 100 MEQ IV BOLUS ×4 (14:20→17:41)
[2024-10-02] MEDS: 0.9% Normal Saline (250mL Bag) 250 ML 15 ML IV ×2 (14:23→14:28)
[2024-10-02] MEDS: Magnesium Sulfate 4gm/100mL 4 GM/100 ML IV.SOLN. IV (14:25)
--- NOTE | 2024-10-02 15:14 | HP.PCM.HOS_ITS ---
HPI - General General Date of Admission: 10/02/24 Date of Service: 10/02/24 Chief Complaint: Generalized weakness HPI Narrative ROZINA HUERTAS, is a 64 F who presents to the emergency room at [facility] with a chief complaint of generalized weakness, patient was alone and has nursing aides participate in her care. Patient admits to continued drinking but is vague about how much she drinks. Labs obtained in the emergency room showed her white blood cell count to be normal, hemoglobin was also normal, chemistry profile was abnormal for a potassium of 2.4 and a magnesium of 0.8. AST was elevated at 113 and alkaline phosphatase was 201. Patient has complained of diarrhea for the last several days. Chest x-ray showed no acute findings. Patient will be admitted to PCU and she will be given potassium replacement and magnesium replacement. Labs will be monitored. She will be seen by PT and OT [facility] Medical History Cholelithiasis Anemia Migraines Difficulty walking Urge incontinence Acute cystitis with hematuria Muscle weakness Osteoarthritis Alcoholic hepatitis Alcoholic liver disease Acute respiratory failure with hypoxia Metabolic encephalopathy Major depression Protein calorie malnutrition Acute post-hemorrhagic anemia Dysphagia, oropharyngeal phase Malignant neoplasm of colon Ulcer Restless legs Injury of head and neck Anemia Alcohol abuse Bipolar disorder Hypothyroidism Osteoporosis Kidney stones GERD (gastroesophageal reflux disease) GI bleed Former smoker Home Medications ?Medication ?Instructions ?Recorded ?Last Taken ?Type calcium carbonate (Tums) 200 mg PO BID PRN dyspepsia 07/23/24 Unknown History cholecalciferol (vitamin D3) 1,250 1,250 mcg PO 2XW whelan pplement 07/23/24 Unknown History mcg (50,000 unit) capsule cyanocobalamin (vitamin B-12) 1,000 mcg IM QMONTH 07/12 07/08 Unknown History 1,000 mcg/mL injection solution folic acid 1 mg tablet 1 mg PO QDAY 07/23/24 Unknow n History ipratropium 0.5 mg-albuterol 3 mg 3 ml inhalation Q4H PRN shortness 07/23/24 Unknown History (2.5 mg base)/3 mL nebulization of breath soln lidocaine 4 % topical gel 1 applic topical HS 07/23/24 Unknown History magnesium glycinate 100 mg (as 100 mg PO BID 07/23/24 Unknown History glycinate) tablet (Mag Glycinate) magnesium oxide 400 mg PO QDAY 07/23/24 Unkn own History thiamine HCl (vitamin B1) 100 mg 100 mg PO QDAY Unknown History tablet venlafaxine 37.5 mg 37.5 mg PO QDAY 07/23/24 Unk nown History capsule,extended release 24 hr zinc oxide 20 % topical paste 1 ea topical Q8H PRN ski n 07/23/24 Unknown History irritation pantoprazole 40 mg tablet,delayed 40 mg PO BID GERD 30 days #60 tabs 08/29/24 Unknown Rx release Allergy/AdvReac Type Severity Reaction Status Date / Time amoxicillin Allergy Intermediate Swelling, Verified 10/02/24 09:57 itching Family History Mother Alcohol abuse CAD (coronary artery disease) Heart disease Hypertension Myocardial infarction Father Alcohol abuse Cancer Surgical History History of total knee arthroplasty History of right hip replacement H/O total hysterectomy Social History household members: none Smoking Status: Never smoker alcohol intake: current alcohol intake frequency: 3 or more drinks per day details: Notes binge drinking, whiskey. substance use type: other details: Former cannabis usage. Stopped ~ 40 years ago. ROS Constitutional Constitutional: Reports fatigue and weakness; Denies anorexia, change in weight, fever(s) or night sweats Eyes Eyes: Denies blurry vision, change in vision, discharge from eye(s) or eye pain Cardiovascular Cardiovascular: Denies chest pain, claudication, dyspnea on exertion, edema or palpitations Respiratory/Chest Respiratory/Chest: Denies cough, dyspnea, hemoptysis, shortness of breath at rest or shortness of breath with exertion Gastrointestinal Gastrointestinal: Denies abdominal pain, constipation, diarrhea, hematemesis, hematochezia, melena, nausea or vomiting Genitourinary Genitourinary: Denies dysuria, hematuria, urinary frequency, urinary hesitancy, urinary incontinence or urinary urgency Musculoskeletal Musculoskeletal: Denies back pain, joint pain, joint stiffness, joint swelling, myalgias or neck pain Neurologic Neurologic: Denies abnormal gait, abnormal speech, dizziness, focal weakness, headache(s), loss of vision, numbness, other visual disturbances, paresthesias, syncope or tingling Psychiatric Psychiatric: Denies anxiety, cognitive impairment, depression, irritability, mood swings or suicidal ideation Endocrine Endocrinology: Denies change in body appearance, cold intolerance, excessive sweating, heat intolerance, polydipsia or polyuria Hematologic/Lymphatic Hematologic/Lymphatic: Denies none, anemia, easy bleeding, easy bruising or lymphadenopathy Allergic/Immunologic Allergic/Immunologic: Denies rhinitis, urticaria, eczemia or asthma Vital Signs Vital Signs Vital Signs: 10/02/24 09:57 10/02/24 10:03 10/02/24 11:56 Temperature 99.0 F 98.2 F Temperature Source Oral Pulse Rate 96 84 Respiratory Rate 16 18 Respiratory Effort Normal Respiratory Pattern Normal Blood Pressure 114/91 H 132/76 H Blood Pressure Mean 98 94 Blood Pressure Source Blood Pressure Position Blood Pressure Location Pulse Ox 98 99 Oxygen Delivery Method Room Air 10/02/24 13:12 10/02/24 14:45 Temperature 97.8 F Temperature Source Oral Pulse Rate 88 Respiratory Rate 17 Respiratory Effort Respiratory Pattern Blood Pressure 114/79 Blood Pressure Mean 90 Blood Pressure Source Monitor Blood Pressure Position Semi-Fowlers Blood Pressure Location Right Arm Pulse Ox 100 Oxygen Delivery Method Room Air Room Air Weight Weight: 82.4 kg Body Mass Index (BMI) 24.6 Physical Exam Const alert, oriented x3, no apparent distress and average body habitus General Appearance: cooperative, well kempt and well developed Orientation / Consciousness: awake, oriented to person, oriented to place and oriented to time HEENT normocephalic, head/scalp atraumatic, hearing grossly normal bilaterally and moist oral mucous membranes Eyes PERRL, EOMs intact bilaterally and conjunctivae normal Neck supple, no JVD, thyroid normal and no carotid bruits General: trachea midline Resp normal respiratory effort and clear to auscultation bilaterally Auscultation: Negative for rales, rhonchi or wheezes Cardio regular rate, regular rhythm, S1 normal heart sound, S2 normal heart sound, no murmurs, no rub and no gallops GI normal to inspection, nondistended, normoactive bowel sounds, soft to palpation, non-tender and non-distended Extremity no clubbing, cyanosis or edema Skin no rashes or lesions noted General Skin Exam: no breakdown Neuro oriented x3, CN's II-XII intact bilaterally, moves all extremities, no focal motor deficits and no sensory deficits noted Sensorium / Orientation: awake and alert Speech: speech normal Psych affect normal Results Lab / Micro Data 10/02/24 10:20 10/02/24 10:20 Labs: Laboratory Results - last 24 hr 10/02/24 10:20: WBC 4.5, RBC 4.18 L, Hgb 12.0, Hct 37.3, MCV 89.2, MCH 28.7, MCHC 32.2, RDW Std Deviation 56.8 H, RDW Coeff of Angelo 17.8 H, Plt Count 207, MPV 9.9, Immature Gran % (Auto) 0.400, Neut % (Auto) 49.4, Lymph % (Auto) 32.9, [place] % (Auto) 13.9 H, Eos % (Auto) 2.7, Baso % (Auto) 0.7, Absolute Neuts (auto) 2.2, Absolute Lymphs (auto) 1.47, Nucleated RBC % 0, Sodium 135, Potassium 2.4 L*, C hloride 93 L, Carbon Dioxide 28.2, Anion Gap 14, BUN 5, Creatinine 0.61 L, Estim Creat Clear Calc 79.83, Est GFR (MDRD) Non-Af 98, BUN/Creatinine Ratio 8.1 L, G lucose 139 H, Calcium 8.6, Magnesium 0.8 L*, Total Bilirubin 0.94, AST 113 H, ALT 35, Alkaline Phosphatase 201 H, Total Protein 7.0, Albumin 3.1 L, Globulin 3.9, Albumin/Globulin Ratio 0.8 L 10/02/24 11:24: Urine Color Nae, Urine Clarity Sl. Cloudy, Urine pH 6.0, Ur Specific [place] 1.010, Urine Protein 100 H, Urine Glucose (UA) Normal, Urine Ketones 5 H, Urine Occult Blood 50 H, Urine Nitrite Negative, Urine Bilirubin 3 H, Urine Urobilinogen 4 H, Ur Leukocyte Esterase 25 H, Urine RBC 0-5 SEEN, Urine WBC 0-5 SEEN, Ur Squamous Epith Cells 0 SEEN, Urine Bacteria 1+, Hyaline Casts 0-5 SEEN, Urine Mucus 2+ Imaging Radiology Impression Chest X-Ray 10/02/24 10:23 IMPRESSION: No Acute Findings. Reading Location: [place] [id number] Assessment & Plan Assessment/Plan (1) Generalized weakness: PLAN: Plan 1. Generalized weakness secondary to electrolyte abnormality-low magnesium and potassium, etiology is probably secondary to her diarrhea she has had over the last several days. IV fluids will be given and potassium and magnesium supplementation will be administered #2 chronic alcohol use disorder-complicates care, management, recovery, and prognosis, patient will be monitored for DTs, I do not feel she needs CIWA scores. #3 chronic depression-patient is on Effexor Total clinical time spent by myself addressing the patient's medical issues, reviewing all of her data, and collaborating with patient's care team: 55 minutes Charges/Coding Visit Charges Inpatient E&M: 52527 Init Hosp L2
--- NOTE | 2024-10-02 18:39 | CM.ED ---
Social Work Patient came to the ED due to leg weakness and being unable to walk. Patient states she has been wearing a depends due to her diarrhea and inability to get to the bathroom. Patient reports to having [facility] HH aides in place, but states the aides never show up. Patient did say that she had aides at her house yesterday helping her bath and dress. Patient states she does not want to go to a halfway prison but is willing to go for a rehab stay. Patient states [facility] is her preference if needed. Erin Brower, [employer], [employer] MANAGER
[2024-10-02] MEDS: KCl 20MEQ in D5NS 20 MEQ/1,000 ML IV.SOLN. 100 MEQ IV (18:57)
[2024-10-02 21:23] LABS: Magnesium 1.8 mg/dL (1.5-2.2)
[2024-10-02] MEDS: Menthol/Lanolin/Calamine/Znox 113 GM Tube 1 APPLIC TOPICAL (21:39)
[2024-10-02] MEDS: Pantoprazole Sodium 40 MG Tablet PO (21:39)
[2024-10-02] MEDS: Heparin Injection (Vial) 5,000 UNIT/ML VIAL 5000 UNIT SC (21:39)
[2024-10-02 21:47] LABS: Anion Gap 11 (5-15); BUN 5 mg/dL (4-19); BUN/Creat Ratio 7.9 RATIO (10-20); Calcium,Total 7.8 mg/dL (7.6-11.0); Carbon Dioxide 23.8 mmol/L (21.0-32.0); Chloride 99 mmol/L (98-108); Creatinine, Serum 0.68 mg/dL (0.70-1.20); EST Glomerular Filtration Rate 96 (>60); Estimated Creatinine Clearance 79.83 ml/min (50-250); Glucose 144 mg/dL (70-99); Potassium 3.4 mmol/L (3.3-5.1); Sodium Level 134 mmol/L (133-145)
[2024-10-03] VITALS (12 sets, daily range): BP systolic 103–131; BP diastolic 58–87; PULSE 80–101; RESP 16–18; TEMP 36.3–37.2; O2SAT 93–100; BMI 24.6
[2024-10-03] MEDS: Acetaminophen 325 MG Tablet 650 MG PO ×2 (01:32→11:15)
[2024-10-03 05:47] LABS: Anion Gap 10 (5-15); BUN 5 mg/dL (4-19); BUN/Creat Ratio 9.1 RATIO (10-20); Carbon Dioxide 24.5 mmol/L (21.0-32.0); Chloride 101 mmol/L (98-108); Creatinine, Serum 0.51 mg/dL (0.70-1.20); EST Glomerular Filtration Rate 103 (>60); Estimated Creatinine Clearance 79.83 ml/min (50-250); Glucose 106 mg/dL (70-99); Potassium 3.5 mmol/L (3.3-5.1); Sodium Level 136 mmol/L (133-145)
[2024-10-03] MEDS: Menthol/Lanolin/Calamine/Znox 113 GM Tube 1 APPLIC TOPICAL (06:38)
[2024-10-03] MEDS: Pantoprazole Sodium 40 MG Tablet PO (10:13)
[2024-10-03] MEDS: 0.9% Saline Lock 10 ML Syringe IV (11:15)
[2024-10-03] MEDS: KCl 20MEQ in D5NS 20 MEQ/1,000 ML IV.SOLN. 100 MEQ IV (11:16)
--- NOTE | 2024-10-03 15:15 | EGD_PTH ---
PATIENT: ROZINA HUERTAS LOC: [facility] U#:[id number] AGE/SX: 64/F ROOM: [facility] RE10/02/[address]: Dr. Fermin Calvo, : 1960 BED: 1 DIS: 10/03/2024 SPEC #: [id number] RECD: 10/07/24 11:14 STATUS: ANDREINA BARAJAS #: [id number] HUSAM: 10/03/24 15:[address]: Troy Self DEPT: SURGICAL PATHOLOGY RECD BY: Erasto Tavares ENTERED: 10/07/24 11:41 SP TYPE: EGD BIOPSY OTHR DR: Dr. Fermin Calvo, DO No Primary Care Phys Tissues: A - Esophagus, NOS Procedures: Immunohistochemical Stains Special Stain Group I Surgery Specimen Level IV GMS Stain (control) IHC Stain ADDITIONAL HEADER OPERATION: EGD, biopsy, cautery of GI bleed PRE-OP DIAGNOSIS: Anemia, alcoholic hepatitis, cholelithiasis, dilated pancreatic duct TISSUE SUBMITTED: A- Distal esophagus biopsy MICROSCOPIC DIAGNOSIS A. Esophagus, distal, biopsy: * Squamous mucosa with acute inflammation and reactive changes. * Polypoid fragment of inflamed granulation tissue, consistent with ulcer. * Columnar mucosa negative for goblet cell metaplasia. * PASD stain is negative for fungal organisms. * IHC for HSV (herpes simplex virus types I&II) and CMV (cytomegalovirus) are negative. MICROSCOPIC DESCRIPTION Slides are reviewed. All matched controls reacted appropriately. These tests were developed and their performance characteristics determined by [facility]. They may not have been cleared or approved by the U.S. Food and Drug Administration. The FDA has determined that such clearance or approval is not necessary.? The above immunohistochemical/dualISH?markers are ordered and reviewed by the Pathologist. GROSS DESCRIPTION A. Received in formalin in a container labeled with the patient's name, date of , and distal esophagus are multiple whitt-pink fragments of mucosal tissue measuring 1.1 x 0.6 x 0.3 cm in aggregate. Submitted in toto in A1. B 10-07-2024 CPT:34191,84833,09523,23061
--- NOTE | 2024-10-03 15:34 | EX.PCM.CON.G ---
HPI Consult Data Date of Consult: 10/03/24 HPI Narrative Reason for Consultation: GI bleed and anemia HPI Narrative: ROZINA HUERTAS, is a 64-year-old female who presented to the ED on 10/01/2024 with generalized weakness and bilateral lower extremities swelling. She has a history of possible cirrhosis, alcoholic hepatitis, alcoholism, chronic pancreatitis. She has been having some increased weight gain in her legs and abdomen and was supposed to undergo a possible paracentesis. She presented to the ED last month for melanotic stools and was supposed to undergo GI evaluation with possible endoscopy however it was not done. chemistry profile was abnormal for a potassium of 2.4 and a magnesium of 0.8. AST was elevated at 113 and alkaline phosphatase was 201.. Blood work is consistent with alcoholic hepatitis. Her electrolytes were thought to be all secondary to alcoholism. She complains of melanotic stools. PFSH Medical History Cholelithiasis Anemia Migraines Difficulty walking Urge incontinence Acute cystitis with hematuria Muscle weakness Osteoarthritis Alcoholic hepatitis Alcoholic liver disease Acute respiratory failure with hypoxia Metabolic encephalopathy Major depression Protein calorie malnutrition Acute post-hemorrhagic anemia Dysphagia, oropharyngeal phase Malignant neoplasm of colon Ulcer Restless legs Injury of head and neck Anemia Alcohol abuse Bipolar disorder Hypothyroidism Osteoporosis Kidney stones GERD (gastroesophageal reflux disease) GI bleed Former smoker Home Medications ?Medication ?Instructions ?Recorded ?Last Taken ?Type calcium carbonate (Tums) 200 mg PO BID PRN dyspepsia 07/23/24 Unknown History cholecalciferol (vitamin D3) 1,250 1,250 mcg PO 2XW supplement 07/23/24 Unknown History mcg (50,000 unit) capsule cyanocobalamin (vitamin B-12) 1,000 mcg IM QMONTH 07/23/24 Unknown History 1,000 mcg/mL injection solution folic acid 1 mg tablet 1 mg PO QDAY 07/23/24 Unknown History ipratropium 0.5 mg-albuterol 3 mg 3 ml inhalation Q4H PRN shortness 07/23/24 Unknown History (2.5 mg base)/3 mL nebulization of breath soln lidocaine 4 % topical gel 1 applic topical HS 07/23/24 Unknown History magnesium glycinate 100 mg (as 100 mg PO BID 07/23/24 Unknown History glycinate) tablet (Mag Glycinate) magnesium oxide 400 mg PO QDAY 07/23/24 Unknown History thiamine HCl (vitamin B1) 100 mg 100 mg PO QDAY 07/23/24 Unknown History tablet venlafaxine 37.5 mg 37.5 mg PO QDAY 07/23/24 Unknown History capsule,extended release 24 hr zinc oxide 20 % topical paste 1 ea topical Q8H PRN skin 07/23/24 Unknown History irritation pantoprazole 40 mg tablet,delayed 40 mg PO BID GERD 30 days #60 tabs 08/29/24 Unknown Rx release Allergy/AdvReac Type Severity Reaction Status Date / Time amoxicillin Allergy Intermediate Swelling, Verified 10/02/24 09:57 itching Family History Mother Alcohol abuse CAD (coronary artery disease) Heart disease Hypertension Myocardial infarction Father Alcohol abuse Cancer Surgical History History of total knee arthroplasty History of right hip replacement H/O total hysterectomy Social History household members: none Smoking Status: Never smoker alcohol intake: current alcohol intake frequency: 3 or more drinks per day details: Notes binge drinking, whiskey. substance use type: other details: Former cannabis usage. Stopped ~ 40 years ago. ROS Constitutional Constitutional: Denies fatigue, fever(s), poor appetite, weight gain or weight loss Gastrointestinal Gastrointestinal: Denies belching, bloating, change in bowel habits, change in stool character, chewing difficulty, coffee ground emesis, constipation, cramping, diarrhea, dyspepsia, dysphagia, early satiety, excessive flatus, fecal incontinence, heartburn, hematemesis, hematochezia, hemorrhoids, loose stools, melena, nausea, odynophagia, rectal bleeding, tenesmus, vomiting or weight changes Physical Exam Const alert, oriented x3, no apparent distress and healthy appearing General Appearance: cooperative GI normal to inspection, nondistended, normoactive bowel sounds, soft to palpation, non-tender and non-distended Percussion: normal to percussion Rectal Exam: deferred Lab / Micro Data 10/02/24 10:20 10/03/24 04:09 Labs: Laboratory Results - last 24 hr 10/02/24 20:37: Sodium 134, Potassium 3.4, Chloride 99, Carbon Dioxide 23.8, Anion Gap 11, BUN 5, Creatinine 0.68 L, Estim Creat Clear Calc 79.83, Est GFR (MDRD) Non-Af 96, BUN/Creatinine Ratio 7.9 L, Glucose 144 H, Calcium 7.8, Magnesium 1.8 10/03/24 04:09: Sodium 136, Potassium 3.5, Chloride 101, Carbon Dioxide 24.5, Anion Gap 10, BUN 5, Creatinine 0.51 L, Estim Creat Clear Calc 79.83, Est GFR (MDRD) Non-Af 103, BUN/Creatinine Ratio 9.1 L, Glucose 106 H, Calcium 8.0 Imaging Radiology Impression Chest X-Ray 10/02/24 10:23 IMPRESSION: No Acute Findings. Reading Location: [facility] Assessment & Plan Assessment/Plan (1) Anemia: QUALIFIERS: Anemia type: iron deficiency Iron deficiency anemia type: chronic blood loss Qualified Code(s): D50.0 - Iron deficiency anemia secondary to blood loss (chronic) (2) Alcoholic hepatitis: (3) Cholelithiasis: (4) Dilated pancreatic duct: PLAN: Plan 64-year-old with history of alcohol abuse complicated by alcoholic hepatitis possible cirrhosis, chronic pancreatitis presents with fatigue and weakness and discovered to have multiple electrolyte abnormalities thought to be secondary to malnutrition from alcoholism. There is also possible possible UGI bleed. She will undergo an upper endoscopy about upper GI tract. She was explained alternatives, risk and benefits including withstanding bleeding infection, subsequent perforation, need for urgent . She have an ASA of 3. Charges/Coding Visit Charges Inpatient E&M: 58204 Init Hosp L3
--- NOTE | 2024-10-03 16:04 | OP.EGD_ITS ---
Patient Name: Kenyatta Carrillo Procedure Date: 10/03/2024 3:40 PM Date of : 1960 Age: 64 Procedure: Upper GI endoscopy Indications: Epigastric abdominal pain, Acute post hemorrhagic anemia, Recent gastrointestinal bleeding Providers: Troy Self DO Medicines: Monitored Anesthesia Care Patient Profile: This is a 64 year old female. Refer to note in patient chart for documentation of history and physical. Patient has symptoms of acute dyspepsia, acute nausea and acute vomiting. Complications: No immediate complications. Procedure: Pre-Anesthesia Assessment: - Prior to the procedure, a History and Physical was performed, and patient medications and allergies were reviewed. The patient is competent. The risks and benefits of the procedure and the sedation options and risks were discussed with the patient. All questions were answered and informed consent was obtained. Patient identification and proposed procedure were verified by the physician in the pre-procedure area. Mental Status Examination: alert and oriented. Airway Examination: normal oropharyngeal airway and neck mobility. Respiratory Examination: clear to auscultation. CV Examination: normal. Prophylactic Antibiotics: The patient does not require prophylactic antibiotics. Prior Anticoagulants: The patient has taken no anticoagulant or antiplatelet agents except for NSAID medication. ASA Grade Assessment: II - A patient with mild systemic disease. After reviewing the risks and benefits, the patient was deemed in satisfactory condition to undergo the procedure. The anesthesia plan was to use monitored anesthesia care (MAC). Immediately prior to administration of medications, the patient was re-assessed for adequacy to receive sedatives. The heart rate, respiratory rate, oxygen saturations, blood pressure, adequacy of pulmonary ventilation, and response to care were monitored throughout the procedure. The physical status of the patient was re-assessed after the procedure. After obtaining informed consent, the endoscope was passed under direct vision. Throughout the procedure, the patient's blood pressure, pulse, and oxygen saturations were monitored continuously. The Endoscope was introduced through the mouth, and advanced to the third part of the duodenum. Small bowel enteroscopy was deemed necessary. The upper GI endoscopy was accomplished without difficulty. The patient tolerated the procedure well. Scope In: 3:52:11 PM Scope Out: 3:59:02 PM Total Procedure Duration Time 0 hours 6 minutes 51 seconds Findings: LA Grade D (one or more mucosal breaks involving at least 75% of esophageal circumference) esophagitis with bleeding was found 33 to 40 cm from the incisors. Biopsies were taken with a cold forceps for histology. Verification of patient identification for the specimen was done. Estimated blood loss was minimal. Coagulation for hemostasis using heater probe was successful. Estimated blood loss was minimal. A medium-sized hiatal hernia was present. No other significant abnormalities were identified in a careful examination of the stomach. No gross lesions were noted in the entire examined duodenum. Impression: - LA Grade D erosive esophagitis with bleeding. Biopsied. Treated with a heater probe. - Medium-sized hiatal hernia. - No gross lesions in the entire examined duodenum. Recommendation: - [facility]. - Full liquid diet today. - Continue present medications. - Use Protonix (pantoprazole) 40 mg PO BID indefinitely. Procedure Code(s): --- Professional --- 59197, 59, Small intestinal endoscopy, enteroscopy beyond second portion of duodenum, not including ileum; with control of bleeding (eg, injection, bipolar cautery, unipolar cautery, laser, heater probe, stapler, plasma take off worker) 08480, 51, Small intestinal endoscopy, enteroscopy beyond second portion of duodenum, not including ileum; with biopsy, single or multiple CPT copyright 2021 [employer]. All rights reserved. The codes documented in this report are preliminary and upon safety risk lead review may be revised to meet current compliance requirements. Troy Self DO 10/03/2024 4:03:54 PM This report has been signed electronically. Number of Addenda: 0 Note Initiated On: 10/03/2024 3:40 PM
--- NOTE | 2024-10-03 16:04 | OP.CCLET_ITS ---
10/03/2024 No Primary Care Physician Re : Upper GI endoscopy procedure for Kenyatta Carrillo Dear Care Physician This procedure was performed on Thursday, October 03, 2024. My impressions and recommendations are as follows: Impressions : - LA Grade D erosive esophagitis with bleeding. Biopsied. Treated with a heater probe. - Medium-sized hiatal hernia. - No gross lesions in the entire examined duodenum. Recommendations : - [facility]. - Full liquid diet today. - Continue present medications. - Use Protonix (pantoprazole) 40 mg PO BID indefinitely. My findings are described in the full procedure note, which is enclosed. If I can be of further assistance, please feel free to contact me at . Sincerely, Troy Self, 10/03/2024 4:03:54 PM This report has been signed electronically.
--- NOTE | 2024-10-03 16:06 | DCINST_ITS ---
Discharge Instructions Diet Discharge Diet: - (Clear liquid diet today, advance to regular diet tomorrow) DC O2, CPAP, BIPAP needs Home O2 Discharge instructions: No Dressing / Incision Discharge Activity: Return to Normal Activity Weight Bearing Status: Full weight bearing Follow Up Care Test Results: Test results from this visit will be discussed in further detail at your follow- up appointment, if applicable. Discharge Plan Admission Admit Date/Time: 10/02/24 11:35 Primary Reason for Your Visit: Hypokalemia, hypomagnesemia, erosive esophagitis Attending Provider: Fermin Calvo Primary Care Provider: Care Physician,No Primary Instructions Additional Instructions / Restrictions: Follow-up with the primary care physician within a month Discharge Orders/Prescriptions Prescriptions: New ferrous sulfate [FeroSul] 325 mg (65 mg iron) Tablet 325 mg PO QODAY@1200 Qty: 0 0RF Continued cyanocobalamin (vitamin B-12) 1,000 mcg/mL solution 1,000 mcg IM QMONTH folic acid 1 mg tablet 1 mg PO QDAY ipratropium-albuterol 0.5 mg-3 mg(2.5 mg base)/3 mL solution for nebulization 3 ml inhalation Q4H PRN (Reason: shortness of breath) lidocaine 4 % gel 1 applic topical HS Mag Glycinate 100 mg tablet 100 mg PO BID magnesium oxide 400 mg magnesium tablet 400 mg PO QDAY thiamine HCl (vitamin B1) 100 mg tablet 100 mg PO QDAY calcium carbonate [Tums] 200 mg calcium (500 mg) tablet,chewable 200 mg PO BID PRN (Reason: dyspepsia) venlafaxine 37.5 mg capsule,extended release 24hr 37.5 mg PO QDAY cholecalciferol (vitamin D3) 1,250 mcg (50,000 unit) capsule 1,250 mcg PO 2XW zinc oxide 20 % paste 1 ea topical Q8H PRN (Reason: skin irritation) pantoprazole 40 mg tablet,delayed release (DR/EC) 40 mg PO BID 30 Days Qty: 60 2RF Referrals / Follow Up: Friend,DO Troy [Med Staff - Active Staff] - Within 1 Month Care Physician,No Primary [Primary Care Provider] - Disposition Disposition (needs filled in before D/C Order can be placed): Home, Self Care
--- NOTE | 2024-10-03 16:10 | PCM.DC.SUM ---
Providers Date of Admission: 10/02/24 Date of Discharge: 10/03/24 Primary Care Physician: Jennifer Primary Care Phys Consultations 10/03/24 10:53 Consult: Gastroenterology Routine Consulting Provider: [facility]i [facility] Reason for Consult: dysphagia EMERGENT Consult: No MD Notified: Yes Date Notified: 10/03/24 Time Notified: 10:53 Method of Notification: Verbal Reason For Visit: HYPOKALEMIA, HYPOMAGNESMIA Diagnosis Discharge Diagnosis (1) Anemia: Status: Inactive Code(s): D64.9 - Anemia, unspecified Qualifiers: Anemia type: iron deficiency Iron deficiency anemia type: chronic blood loss Qualified Code(s): D50.0 - Iron deficiency anemia secondary to blood loss (chronic) (2) Alcoholic hepatitis: Status: Acute Code(s): K70.10 - Alcoholic hepatitis without ascites (3) Cholelithiasis: Status: Inactive Code(s): K80.20 - Calculus of gallbladder without cholecystitis without obstruction (4) Dilated pancreatic duct: Status: Acute Code(s): K86.89 - Other specified diseases of pancreas Plan 1. Generalized weakness secondary to electrolyte abnormality-low magnesium and potassium, etiology is probably secondary to her diarrhea she has had over the last several days. IV fluids will be given and potassium and magnesium supplementation will be administered #2 chronic alcohol use disorder-complicates care, management, recovery, and prognosis, patient will be monitored for DTs, I do not feel she needs CIWA scores. #3 chronic depression-patient is on Effexor #4 erosive esophagitis with bleeding Total clinical time spent by myself addressing the patient's medical issues, reviewing all of her data, and collaborating with patient's care team: 55 minutes Medications at Discharge Home Medications calcium carbonate (Tums) 200 mg PO BID PRN dyspepsia 07/23/24 cholecalciferol (vitamin D3) 1,250 mcg (50,000 unit) capsule 1,250 mcg PO 2XW supplement 07/23/24 cyanocobalamin (vitamin B-12) 1,000 mcg/mL injection solution 1,000 mcg IM QMONTH 07/23/24 folic acid 1 mg tablet 1 mg PO QDAY 07/23/24 ipratropium 0.5 mg-albuterol 3 mg (2.5 mg base)/3 mL nebulization soln 3 ml inhalation Q4H PRN shortness of breath 07/23/24 lidocaine 4 % topical gel 1 applic topical HS 07/23/24 magnesium glycinate 100 mg (as glycinate) tablet (Mag Glycinate) 100 mg PO BID 07/23/24 magnesium oxide 400 mg PO QDAY 07/23/24 thiamine HCl (vitamin B1) 100 mg tablet 100 mg PO QDAY 07/23/24 venlafaxine 37.5 mg capsule,extended release 24 hr 37.5 mg PO QDAY 07/23/24 zinc oxide 20 % topical paste 1 ea topical Q8H PRN skin irritation 07/23/24 pantoprazole 40 mg tablet,delayed release 40 mg PO BID GERD 30 days #60 tabs 08/29/24 ferrous sulfate 325 mg (65 mg iron) tablet (FeroSul) 325 mg PO QODAY@1200 #0 tabs 10/03/24 Hospital Course Operations None Procedures EGD Summary of Care Provided Minutes Spent on Discharge: 31 Hospital Course: This 64-year-old white female was seen in the emergency room at [facility] with complaints of generalized weakness. Patient has a history of alcohol use disorder and admits to drinking but is vague about how much she drinks. She had complained of having diarrhea over the last several days. Labs obtained showed a low magnesium of 0.8, potassium was 2.4, AST was elevated at 113 and alkaline phosphatase was 201. Patient was admitted to PCU, she was given potassium and magnesium supplementation, repeated labs showed her magnesium and potassium to be corrected. Patient had been scheduled for an upper endoscopy on 10/03/2024, this examiner decided to have her undergo the exam while she was in the hospital, it showed erosive esophagitis and it was recommended that she stay on Protonix 40 mg twice daily indefinitely. On 10/03/2024, patient was seen and examined: On examination she appeared in good health and spirits, she does not appear to be in any distress. Vital signs as documented. Skin warm and dry and without overt rashes. Neck without JVD, thyroid appears normal, trachea is midline, neck is supple. Lungs clear, normal air movement was noted. Heart exam notable for regular rhythm, normal sounds and absence of murmurs, rubs or gallops. Abdomen unremarkable and without evidence of organomegaly, masses, or abdominal aortic enlargement, bowel sounds are present in all 4 quadrants, no abdominal tenderness was noted. Extremities nonedematous, no cyanosis was noted, no clubbing was noted. Neuro: Cranial nerves II through XII are grossly intact, no focal motor deficits were noted, sensation to light touch and pinprick is intact, motor exam 5/5 throughout. Psych: Patient is alert and oriented x3, she does not appear anxious or depressed, she does not appear agitated. Patient appears stable for discharge on 10/03/2024. Weight / BMI Weight Weight: 82.4 kg Body Mass Index (BMI) 24.6 ABG / Lab / Microbiology Data 10/02/24 10:20 10/03/24 04:09 Laboratory: Laboratory Results - last 24 hr 10/02/24 20:37: Sodium 134, Potassium 3.4, Chloride 99, Carbon Dioxide 23.8, Anion Gap 11, BUN 5, Creatinine 0.68 L, Estim Creat Clear Calc 79.83, Est GFR (MDRD) Non-Af 96, BUN/Creatinine Ratio 7.9 L, Glucose 144 H, Calcium 7.8, Magnesium 1.8 10/03/24 04:09: Sodium 136, Potassium 3.5, Chloride 101, Carbon Dioxide 24.5, Anion Gap 10, BUN 5, Creatinine 0.51 L, Estim Creat Clear Calc 79.83, Est GFR (MDRD) Non-Af 103, BUN/Creatinine Ratio 9.1 L, Glucose 106 H, Calcium 8.0 Radiography Diagnostic Testing: Radiology Impression Chest X-Ray 10/02/24 10:23 IMPRESSION: No Acute Findings. Reading Location: [facility] D/C Instructions Discharge Diet: - (Clear liquid diet today, advance to regular diet tomorrow) Weight Bearing Status: Full weight bearing DC O2, CPAP, BIPAP Needs Home O2 Discharge instructions: No Meaningful Use Info Meaningful Use Meaningful Use Diagnoses (Choose all that apply): None applicable Ischemic Stroke Statin Dosing Therapy Reference: STATIN DOSE THERAPY REFERENCE: * Patients > 75 years receive moderate or high dose statin therapy. * Patients 75 years or YOUNGER should receive HIGH intensity statin dose unless contraindicated. You will be required to document reason for non-treatment if statin daily dose does not meet guidelines. HIGH DOSE STATIN THERAPY DAILY Atorvastatin > than or = to 40 mg Rosuvastatin > than or = to 20 mg Amlodipine + Atorvastatin > than or = to 2.5/40 mg Ezetimibe + Simvastatin 10/80 mg Simvastatin 80mg Discharge Plan Admission Admit Date/Time: 10/02/24 11:35 Primary Reason for Your Visit: Hypokalemia, hypomagnesemia, erosive esophagitis Attending Provider: Fermin Calvo Primary Care Provider: Care Physician,No Primary Instructions Additional Instructions / Restrictions: Follow-up with the primary care physician within a month Discharge Orders/Prescriptions Prescriptions: New ferrous sulfate [FeroSul] 325 mg (65 mg iron) Tablet 325 mg PO QODAY@1200 Qty: 0 0RF Continued cyanocobalamin (vitamin B-12) 1,000 mcg/mL solution 1,000 mcg IM QMONTH folic acid 1 mg tablet 1 mg PO QDAY ipratropium-albuterol 0.5 mg-3 mg(2.5 mg base)/3 mL solution for nebulization 3 ml inhalation Q4H PRN (Reason: shortness of breath) lidocaine 4 % gel 1 applic topical HS Mag Glycinate 100 mg tablet 100 mg PO BID magnesium oxide 400 mg magnesium tablet 400 mg PO QDAY thiamine HCl (vitamin B1) 100 mg tablet 100 mg PO QDAY calcium carbonate [Tums] 200 mg calcium (500 mg) tablet,chewable 200 mg PO BID PRN (Reason: dyspepsia) venlafaxine 37.5 mg capsule,extended release 24hr 37.5 mg PO QDAY cholecalciferol (vitamin D3) 1,250 mcg (50,000 unit) capsule 1,250 mcg PO 2XW zinc oxide 20 % paste 1 ea topical Q8H PRN (Reason: skin irritation) pantoprazole 40 mg tablet,delayed release (DR/EC) 40 mg PO BID 30 Days Qty: 60 2RF Referrals / Follow Up: Friend,[place], [Med Staff - Active Staff] - Within 1 Month Care Physician,No Primary [Primary Care Provider] - Disposition Disposition (needs filled in before D/C Order can be placed): Home, Self Care Charges/Coding Visit Charges Inpatient E&M: 17541 Disch Hosp >30min
== END 2024-10-03 19:15 | disposition home or self-care (01) | DRG 640 ==
LOC: ED 11:36 → PCU 11:46
PROVIDERS: Internal Medicine Gastroenterology; Admitting Provider Internal Medicine; Emergency Provider Emergency Medicine; Visit Provider Internal Medicine
PROC: 0DJ08ZZ Inspection of Upper Intestinal Tract, Via Natural or Artificial Opening Endoscopic (ICD-10-PCS; CPT 43235; principal; 2024-10-03 15:10)
DX: E87.6 Hypokalemia (principal); K22.11 Ulcer of esophagus with bleeding; L89.321 Pressure ulcer of left buttock, stage 1; F31.9 Bipolar disorder, unspecified; E03.9 Hypothyroidism, unspecified; E83.42 Hypomagnesemia; E87.8 Other disorders of electrolyte and fluid balance, not elsewhere classified; R19.7 Diarrhea, unspecified; R26.2 Difficulty in walking, not elsewhere classified; M19.90 Unspecified osteoarthritis, unspecified site; F10.90 Alcohol use, unspecified, uncomplicated; K44.9 Diaphragmatic hernia without obstruction or gangrene; R53.1 Weakness; Z90.710 Acquired absence of both cervix and uterus; Z87.891 Personal history of nicotine dependence; Z79.899 Other long term (current) drug therapy; M81.0 Age-related osteoporosis without current pathological fracture; Z87.442 Personal history of urinary calculi; Z88.1 Allergy status to other antibiotic agents; Z96.641 Presence of right artificial hip joint; Z96.659 Presence of unspecified artificial knee joint
CPT/HCPCS: 36415; 71045; 80048; 80053; 81001; 83735; 85025; 88305; 88312; 88341; 88342; 93005; 97802; 99285; C1889; A4216

== ENCOUNTER 2024-10-03 14:10 | Outpatient (CLI) | payer MEDICARE, MEDICAID, SELFPAY ==
--- NOTE | 2024-10-03 14:50 | PCM.PRE.AN2 ---
ASA Classification* ASA Classification ASA Classification: 3 Assessment & Plan Anesthesia* Anesthesia Assessment Anesthesia Assessment: Discussed sedation and/or anesthesia options, risks, benefits, and alternatives with patient/parents/legal guardian/POA. Questions invited. The patient/parents/legal guardian/POA seems to understand and agrees to proceed with anesthesia plan. Reviewed the physical assessment, medical history, allergy history and patient home medications list prior to surgery/procedure/anesthetic and documented any changes. Performed airway and anesthesia risk assessments. Anesthesia Type Anesthesia Type: MAC Anesthesia Focused Assessment* Airway Assessment Mouth opens: >3 cm Mallampati Score: II Focused Labs Anesthesia Preop lab: CBC WBC 4.5 K/mm3 (4.4-11.0) 10/02/24 10:20 10/02/24 RBC 4.18 M/mm3 (4.2-5.4) L 10/02/24 10:20 10/02/24 Hgb 12.0 g/dL (12.0-15.0) 10/02/24 10:20 10/02/24 Hct 37.3 % (37-47) 10/02/24 10:20 10/02/24 Plt Count 207 K/mm3 (150-450) 10/02/24 10:20 10/02/24 CHEMISTRY Potassium 3.5 mmol/L (3.3-5.1) 10/03/24 04:09 10/03/24 Sodium 136 mmol/L (133-145) 10/03/24 04:09 10/03/24 Magnesium 1.8 mg/dL (1.5-2.2) 10/02/24 20:37 10/02/24 Phosphorus 3.6 mg/dL (2.7-4.5) 08/28/24 04:52 08/28/24 BUN 5 mg/dL (4-19) 10/03/24 04:09 10/03/24 Creatinine 0.51 mg/dL (0.70-1.20) L 10/03/24 04:09 10/03/24 Glucose 106 mg/dL (70-99) H 10/03/24 04:09 10/03/24 TSH 6.550 uIU/mL (0.300-4.200) H 08/28/24 04:52 08/28/24 COAG PT 15.2 SECONDS (11.7-14.9) H 08/26/24 14:30 08/26/24 Pre-Assessment Diagnosis/Proposed Procedure Planned Operative Procedure(s): EGD. Anesthesia History Anesthesia History - cut out stitcher: Anesthesia History - cut out stitcher Hx Hospitalization No 07/03/19 19:44 Any Problems With Anesthesia No 06/10/22 20:47 Cholinesterase deficiency No 04/08/19 10:31 You/Your Family Experience No 04/08/19 10:31 fever (hyperthermia) with Relationship Recent Exposure to Contagious No 06/10/22 20:47 Disease Does patient have nerve No 06/10/22 20:47 stimulator Patient instructed to have device shut off --Does patient have Pacemaker or ICD? When Was Last Pacemaker Check QUESTION #4 FULL TEXT: You/Your Family Experience fever (hyperthermia) with Anesthesia Last Oral Intake Last Oral intake: Last Oral Intake NPO since Meds taken in AM with sips of water? 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 - cut out stitcher: PONV - cut out stitcher Female HX of Motion Sickness HX of N/V After Surgery Non-Smoker Duration of Surgery greater than 60 minutes Number of Risk Factors PONV Score Height & Weight Height & Weight: Anesthesia: Height & Weight Height 6 ft 07/23/24 12:44 Respiratory Assessment Respiratory Assessment - cut out stitcher: Respiratory Tract Infection Hx - cut out stitcher Hx Respiratory Tract Infection No 06/10/22 20:47 STOP Sleep Apnea STOP Sleep Apnea - cut out stitcher: STOP Sleep Apnea - cut out stitcher Hx Hypertension No 07/14/22 10:10 Hx Sleep Apnea No 06/10/22 20:21 CPAP BIPAP Do you snore loudly (louder than talking or can be heard Do you often feel tired/ fatigued/ sleepy during daytime? Has anyone observed you stop breathing during sleep? STOP Results QUESTION #5 FULL TEXT : Do you snore loudly (louder than talking or can be heard through closed doors)? 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 Specify any problems Hx of Preganancy in last 3 Months Nurse Filling Out Transfusion & Questions: Date: Time: Patient unable to answer at this time (ie. confused, unrespo /Reproduction History /Reproductive History - cut out stitcher: /Reproductive Hx- cut out stitcher Hx Now Gestational Age (in weeks): EDC: Hx Hx Para Hx Section SAB PFSH Medical History Cholelithiasis Anemia Migraines Difficulty walking Urge incontinence Acute cystitis with hematuria Muscle weakness Osteoarthritis Alcoholic hepatitis Alcoholic liver disease Acute respiratory failure with hypoxia Metabolic encephalopathy Major depression Protein calorie malnutrition Acute post-hemorrhagic anemia Dysphagia, oropharyngeal phase Malignant neoplasm of colon Ulcer Restless legs Injury of head and neck Anemia Alcohol abuse Bipolar disorder Hypothyroidism Osteoporosis Kidney stones GERD (gastroesophageal reflux disease) GI bleed Former smoker Home Medications ?Medication ?Instructions ?Recorded ?Last Taken ?Type calcium carbonate (Tums) 200 mg PO BID PRN dyspepsia 07/23/24 Unknown History cholecalciferol (vitamin D3) 1,250 1,250 mcg PO 2XW supplement 07/23/24 Unknown History mcg (50,000 unit) capsule cyanocobalamin (vitamin B-12) 1,000 mcg IM QMONTH 07/23/24 Unknown History 1,000 mcg/mL injection solution folic acid 1 mg tablet 1 mg PO QDAY 07/23/24 Unknown History ipratropium 0.5 mg-albuterol 3 mg 3 ml inhalation Q4H PRN shortness 07/23/24 Unknown History (2.5 mg base)/3 mL nebulization of breath soln lidocaine 4 % topical gel 1 applic topical HS 07/23/24 Unknown History magnesium glycinate 100 mg (as 100 mg PO BID 07/23/24 Unknown History glycinate) tablet (Mag Glycinate) magnesium oxide 400 mg PO QDAY 07/23/24 Unknown History thiamine HCl (vitamin B1) 100 mg 100 mg PO QDAY 07/23/24 Unknown History tablet venlafaxine 37.5 mg 37.5 mg PO QDAY 07/23/24 Unknown History capsule,extended release 24 hr zinc oxide 20 % topical paste 1 ea topical Q8H PRN skin 07/23/24 Unknown History irritation pantoprazole 40 mg tablet,delayed 40 mg PO BID GERD 30 days #60 tabs 08/29/24 Unknown Rx release Allergy/AdvReac Type Severity Reaction Status Date / Time amoxicillin Allergy Intermediate Swelling, Verified 10/02/24 09:57 itching Family History Mother Alcohol abuse CAD (coronary artery disease) Heart disease Hypertension Myocardial infarction Father Alcohol abuse Cancer Surgical History History of total knee arthroplasty History of right hip replacement H/O total hysterectomy Social History household members: none Smoking Status: Never smoker alcohol intake: current alcohol intake frequency: 3 or more drinks per day details: Notes binge drinking, whiskey. substance use type: other details: Former cannabis usage. Stopped ~ 40 years ago. Review of Systems (Anesthesia) ROS Narrative System reviewed and no additional complaints, except as documented.
--- NOTE | 2024-10-04 09:43 | PCM.POST.ANE ---
Anesthesia: Postop Eval I Current Vital Signs Temperature: 97 F Pulse Rate: 85 Blood Pressure: 110/60 Respiratory Rate: 16 Pulse Ox: 95 Assessment Airway patent: Yes Spontaneous unlabored respirations: Yes Mental status: Awake nausea: No Vomiting: No Anesthesia Complication: No Fluid Hydration Crystalloid volume administer (ml): 20 Total IV fluid infused: 20 Progress Note Anesthesia document: Postop Eval 1 completed: Yes
--- NOTE | 2024-10-04 09:43 | POSTOP.ANE_ITS ---
Anesthesia: Postop Eval I
--- NOTE | 2024-10-05 17:46 | POSTOPAN2_ITS ---
Anesthesia Postop Eval I Sum
--- NOTE | 2024-10-05 17:46 | PCM.POSTANE2 ---
Anesthesia Postop Eval I Sum Postop Eval Completion status Anesthesia document: Postop Eval 1 completed: Yes Anesthesia Postop Eval I Summary Anesthesia Postop Eval I Summary: Anesthesia Postop Eval I: Assessment Summary Airway patent Yes 10/06/24 09:44 Spontaneous unlabored Yes 10/06/24 09:44 respirations Mental status Awake 10/06/24 09:44 nausea No 10/06/24 09:44 Vomiting No 10/06/24 09:44 Anesthesia Postop Eval I: Fluid Summary Crystalloid volume administer 20 10/06/24 09:44 (ml) Colloids volume administered ( ml) Blood Product volume administered (ml) Total IV fluid infused 20 10/06/24 09:44 Anesthesia Postop Eval I: Summary Notes Anesthesia Complication No 10/06/24 09:44 Anesthesia Complication Comment: Post-operative progress note Anesthesia: Postop Eval II Evaluation Mental status: Awake Pain Level: 0 nausea: No Vomiting: No
[2024-10-06 09:44] VITALS: BP 110/60; PULSE 85; RESP 16; TEMP 36.1; O2SAT 95
== END 2024-10-03 19:00 | disposition home or self-care (01) ==
LOC: EN 03-25 16:02
PROVIDERS: PCP Family Medicine; Visit Provider Internal Medicine Gastroenterology
DX: Z53.09 Procedure and treatment not carried out because of other contraindication (principal); K21.9 Gastro-esophageal reflux disease without esophagitis

== ENCOUNTER 2024-10-28 02:17 | Inpatient (IN) | payer MEDICARE, MEDICAID, SELFPAY ==
[2024-10-28] VITALS (18 sets, daily range): BP systolic 121–177; BP diastolic 70–105; PULSE 79–119; RESP 14–30; TEMP 36.4–36.9; O2SAT 93–100; BMI 26.3; BMI 25.3
--- NOTE | 2024-10-28 03:02 | CT_ITS ---
PROCEDURE: CTA ABD/PELVIS W/WO CONTRAST 10/28/2024 REASON FOR EXAM: GI BLEED TECHNIQUE: CTA ABD/PELVIS W/WO CONTRAST multiplanar Coronal and Sagittal images were obtained. CONTRAST: Isovue-300 70 VOLUME: 100 mL One or more dose reduction techniques were used (e.g., Automated exposure control, adjustment of the mA and/or kV according to patient size, use of iterative reconstruction technique). RADIATION DOSE SUMMARY: CTDlvol: 22.6 mGy DLP: 3848 mGycm COMPARISON: CT scan on 08/26/2024. FINDINGS: Pelvis partially obscured by streak artifact related to bilateral femoral orthopedic hardware. Moderate motion limitation through the lung bases greater than he far upper abdomen. Lung bases: Atelectasis/scarring. Minimally imaged distal most esophageal wall thickening. Small hiatal hernia.. Trace mitral annular calcification. Liver: Steatosis is unchanged. Granulomas. Spleen: Granulomas.. Gallbladder: Distended gallbladder with cholelithiasis. No convincing inflammation. Pancreas: Atrophic. Similar ductal dilatation to 6 mm at the neck. Similar 12 mm intraductal versus parenchymal calculus in the head. Trace stranding along the pancreatic head/uncinate process. Adrenals: Atrophic. Kidneys: Lobulated contours. Punctate nonobstructing intrarenal calculus on the LEFT measures roughly 1-2 mm.. Bowel: Minimal diverticulosis. Minimal rectosigmoid and descending colonic wall thickening may be related to underdistention or mild stercoral colitis. Appendix enlarged to 14 mm without convincing adjacent inflammation. Intramural fat deposition within the marroquin of the appendix and cecum, nonspecific, but can be seen in the setting of obesity or chronic inflammation. Lymph nodes: Unremarkable. Vasculature: Trace atherosclerosis.. Peritoneum: Unremarkable. Bladder: Bladder wall thickening. Reproductive Organs: Hysterectomy. 3.8 x 2.8 cm LEFT adnexal cyst, unchanged. Body Wall: Increased nonspecific stranding in the LEFT flank and bilateral gluteal regions. Tiny fat containing umbilical hernia.. Bones: Demineralization. Multilevel spondylosis. Partially imaged RIGHT hip arthroplasty and intramedullary hardware in the LEFT femur. Severe end-stage degenerative changes of the LEFT hip with dysmorphic appearance.. Mild scoliosis. CT/CTA Abd/Pelvis W/WO Contrast IMPRESSION: Gastritis. Multifocal thickening of the colon, more prominent in the sigmoid colon, probab ly colitis. Unchanged reflux esophagitis. No CT evidence of active bleeding during the time of the exam. Additional chronic findings as detailed above. [facility]
[2024-10-28 03:12] LABS: Absolute Lymphocyte Count 2.54 X10^3/uL (0.83-4.51); Absolute Neutrophil Count 5.2 X10^3/uL (2.0-7.7); Basophil# 0.04 X10^3/uL; Basophil% 0.5 % (0-1); Eosinophil# 0.02 X10^3/uL; Eosinophils% 0.2 % (0-5); Hematocrit 39.9 % (37-47); Hemoglobin 13.3 g/dL (12.0-15.0); Lymphocyte # 2.54 X10^3/ul (0.83-4.51); Lymphocyte % 29.8 % (19-41); Mean Corp Hgb Conc 33.3 g/dL (32-36); Mean Corpuscular Hgb 28.8 pg (27.0-32.0); Mean Corpuscular Volume 86.4 fL (81-99); Mean Platelet Vol. 9.3 fl (6.2-12.0); Monocyte# 0.65 X10^3/uL; Monocyte% 7.6 % (0-10); NRBC Flagged by Analyzer 0 % (0-5); Neutrophil # 5.24 X10^3/uL (2.7-7.7); Neutrophil % 61.4 % (47-70); Platelet Count 477 K/mm3 (150-450); RBC Distribution Width CV 19.4 % (11.6-14.6); RBC Distribution Width SD 60.4 fl (35.1-43.9); Red Blood Count 4.62 M/mm3 (4.2-5.4); White Blood Count 8.5 K/mm3 (4.4-11.0)
[2024-10-28] MEDS: 0.9% Normal Saline (1000mL) 1,000 ML 999 ML IV ×2 (03:12→04:45)
[2024-10-28] MEDS: Ondansetron 4 MG/2 ML Vial IV (03:12)
[2024-10-28 03:22] LABS: International Normalized Ratio 1.3
[2024-10-28 03:23] LABS: Partial Thromboplast Time 29.8 Seconds (24.1-36.2)
[2024-10-28] MEDS: Pantoprazole Sodium 80 MG in 0.9% Normal Saline (50mL Bag) 15 ML 420 MG IV BOLUS (03:27)
--- OUTSIDE RECORDS SUMMARY | 2024-10-28 03:40 | XMS RPT_ITS | CCD ---
Author Organization [facility] Care Team Providers Care Bookkeeping Clerks Supervisor Name Role Phone Naye Sheets MD Primary Care Provider Naye Sheets Primary Care Provider UnavailDr. Mandeep Sullivan Emergency Provider Dr. Renetta Recinos Admit Provider Dr. Renetta Recinos Other Provider Dr. Leonard Weiner Other Provider Dr. Tiff Ramires Attending Provider Dr. Jerry Lopez Attending Provider Dr. Jerry Lopez Other Provider Dr. Tyrone Roach Attending Provider Dr. Tyrone Roach Other Provider Dr. Jerry Lopez Attending Provider Naye Sheets MD Primary Care Provider NAYE SHEETS Referring Unavailable NAYE SHEETS Primary Care Unavailable Naye Sheets MD Primary Care Provider Haagen COLLECTIONS TECHNICIAN.QUARTER BACKER, Meenakshi Unavailable Suppan COLLECTIONS TECHNICIAN.QUARTER BACKER, Natalie A Unavailable Suppan COLLECTIONS TECHNICIAN.QUARTER BACKER, Natalie A Unavailable BOOGIE LILLY Admitting Unavailable LAZARO BURGOS Consulting Unavailable ALMA FLORES Attending Unavailable DION MORA Referring Unavailable NAYE SHEETS Primary Care Unavailable Unavailable Primary Care Provider Unavailroger Sheets MD, Dr. Brush Primary Care Provider Jose Rodriguez MD Attending Provider Frida GASTON, Jose Emergency Provider Kortney GASTON, Dr. Brush Referring Provider John GASTON, Dr. Edwards Attending Provider Gee PUENTES, Dr. Lee Emergency Provider Ike GASTON, Dr. Tiff Alexander Admit Provider Ike GASTON, Dr. Tiff Alexander Attending Provider Ike GASTON, Dr. Tiff Alexander Other Provider Charlotte GASTON, Dr. Rmaos Other Provider Unavailable Charlotte GASTON, Dr. Ramos Attending Provider Unavaila felicita Self DO, Dr. Simmons Attending Provider John GASTON, Dr. Edwards Other Provider Naye Sheets MD Primary Care Provider Haagen COLLECTIONS TECHNICIAN.QUARTER BACKER, Meenakshi Unavailable Suppan COLLECTIONS TECHNICIAN.QUARTER BACKER, Natalie A Unavailable [phone] NAYE SHEETS Attending Unavailable NAYE SHEETS Primary Care Unavailable Care Physician, No Primary Primary Care Unava ilable Fermin Calvo Attending Unavailable Fermin Calvo Admitting Unavailable Tiff Ramires Consulting Unavailable Naye Sheets Primary Care Unavailable John, Jerry Attending Unavailable Tiff Ramires Admitting Unavailable Deven Porter Consulting Unavailable Tiff Ramires Admitting Unavailable Tiff Ramires Consulting Unavailable Deven Porter Attending Unavailable Naye Sheets Primary Care Unavailable Deven Porter Consulting Unavailable John, Jerry Attending Unavailable John Jerry Consulting Unavailable John, Jerry Referring Unavailable Sofie Moreland Attending Unavailable Fermin Calvo Attending Unavailable Fermin Calvo Consulting Unavailable Fermin Calvo Admitting Unavailable Care Physician, No Primary Primary Care Unava ilable Troy Self Attending Unavailable Fermin Calvo Referring Unavailable John, Jerry Referring Unavailable Troy Self Attending Unavailable Naye Sheets Primary Care Unavailable Jose Hsieh Referring Unavailable Jose Hsieh Attending Unavailable Naye Sheets Primary Care Unavailable Naye Sheets Referring Unavailable Jerry Lopez Attending Unavailable Care Physician, No Primary Primary Care Unava ilable Tiff Ramires Attending Unavailable SummerfieldNaye Primary Care Unavailable Jerry Lopez Attending Unavailable Naye Sheets Referring Unavailable KortneyNaye Primary Care Unavailable Troy Self Attending Unavailable SummerfieldNaye campoverde Primary Care Unavailable Jerry Lopez Referring Unavailable Jerry Lopez Attending Unavailable Naye Sheets Primary Care Unavailable Jose Rodriguez Attending Unavailable Allergies Allergy Classification Reported Allergen(s) Allergy Type Date of Onset Reaction(s) Facility (20 sources) Amoxicillin; Translations: [AMOXICILLIN] Drug Allergy 11-23-2021 [facility] (1 source) Amoxicillin Drug Allergy 10-02-2024 [facility] Repository Medications Current Medications Medication Drug Class(es) Dates Sig (Normalized) Sig (Original) albuterol 0.833 mg/ml / ipratropium bromide 0.167 mg/ml inhalation solution (2 sources) Anticholinergic, beta2-Adrenergic Agonist Start: 07-23-2024 take 1 mL by inhalation every four hours as needed Ipratropium-Albute rol 0.5 mg-3 mg(2.5 mg base)/3 mL solution for nebulization Active 3 mL INHALATION Q4H as needed for shortness of breath July 23, 2024 12:00am amoxicillin 875 mg / clavulanate 125 mg oral tablet (1 source) Penicillin-class Antibacterial Start: 11-10-2021 End: 11-17-2021 take 1 tablet by mouth twice daily amoxicillin-clavul anic acid (AUGMENTIN) 875-125 mg per tablet Take 1 tablet by mouth twice daily for 7 days. 14 tablet 0 11/10/2021 11/17/2021 Active Comment on above: Take 1 tablet by broderick th twice daily for 7 days. ascorbic acid 500 mg oral tablet (7 sources) Vitamin C Start: 08-29-2024 take 1 tablet by mouth twice daily Ascorbic Acid (Vitamin C) 500 mg tablet Active 500 mg PO TWICE A DAY 60 August 29, 2024 12:00am Start: 06-16-2022 End: 07-23-2024 take 1 tablet by mouth twice daily Ascorbic Acid (Vitamin C) (Vitamin C) 500 mg tablet Discontinued 500 mg PO TWICE A DAY 60 June 16, 2022 1:00am July 23, 2024 12:32pm Take with iron benzonatate 100 mg oral capsule (20 sources) Non-narcotic Antitussive Start: 10-13-2022 take 1 capsule by mouth three times daily as needed benzonatate (TESSALON PERLES) 100 mg capsule Indications: Bronchitis Take 1 capsule by mouth three times daily as needed. 30 capsule 10/13/2022 Active Comment on above: Take 1 capsule by mo ut three times daily as needed. calcium carbonate 500 mg chewable tablet (11 sources) Start: 07-23-2024 take 1 tablet by mouth twice daily as needed Calcium Carbonate (Tums) 200 mg calcium (500 mg) tablet,chewable Active 200 mg PO TWICE A DAY as needed for dyspepsia July 23, 2024 12:00am Start: 06-28-2024 End: 07-28-2024 take 500 mg by mouth every twelve hours as needed calcium carbonate (TUMS) 500 mg chew Take 1 tablet by mouth two times a day as needed. 06/28/2024 Active cholecalciferol 1.25 mg oral capsule (4 sources) Vitamin D Start: 07-23-2024 take 1 capsule by mouth two times weekly Cholecalciferol (Vitamin D3) 1,250 mcg (50,000 unit) capsule Active 1250 ug PO TWICE A WEEK July 23, 2024 12:00am Start: 05-11-2020 End: 08-05-2021 take 1 capsule by mouth every week cholecalciferol, Vitamin D3, (VITAMIN D3) 1,250 mcg (50,000 unit) cap capsule Indications: Vitamin D deficiency Take 1 capsule by mouth one time a week. 12 capsule 3 05/11/2020 08/05/2021 Discontinued Start: 07-02-2018 End: 08-05-2021 take 1 tablet by mouth once daily cholecalciferol (VITAMIN D3) 2,000 unit tablet Take 1 tablet by mouth once daily. 0 07/02/2018 08/05/2021 Discontinued Comment on above: [facility] Take 1 capsule by mo ut one time a week. clindamycin 150 mg oral capsule (1 source) Lincosamide Antibacterial Start: 10-04-19 End: 10-09-19 take 3 capsules by mouth three times daily clindamycin (CLEOCIN) 150 mg capsule Indications: Swelling of left side of face Take 3 capsules by mouth three times daily for 5 days. 45 capsule 0 10/03/2021 10/08/2021 Active Comment on above: Take 3 capsules by out three times daily for 5 days. doxycycline monohydrate 100 mg oral tablet (1 source) Tetracycline-class Drug Start: 10-14-19 End: 10-24-19 take 1 tablet by mouth twice daily doxycycline monohydrate 100 mg tablet Indications: Bronchitis Take 1 tablet by mouth twice daily for 10 days. 20 tablet 0 10/13/2022 10/23/2022 Active Comment on above: Take 1 tablet by broderick twice daily for 10 days. ferrous sulfate 325 mg oral tablet (20 sources) Start: 08-30-19 take 1 tablet by mouth every other day Ferrous Sulfate 325 mg (65 mg iron) tablet Active 325 mg PO EVERY OTHER DAY August 29, 2024 12:00am Start: 06-11-2022 End: 07-23-2024 take 1 tablet by mouth twice daily Ferrous Sulfate (Ferosul) 325 mg (65 mg iron) tablet Discontinued 325 mg PO TWICE A DAY June 11, 2022 1:00am July 23, 2024 12:32pm Start: 04-25-2022 take 1 tablet by broderick twice daily at mealtime ferrous sulfate 325 mg (65 mg iron) tablet Take 1 tablet by mouth twice daily with meals. 60 tablet 1 04/25/2022 Active Comment on above: Take 1 tablet by broderick twice daily with meals. folic acid 1 mg oral tablet (20 sources) Start: 04-28-20 take 1 tablet by mouth once daily folic acid 1 mg tablet Take 1 tablet by mouth once daily. 30 tablet 5 04/28/2022 Active Comment on above: Take 1 tablet by broderick once daily. levothyroxine sodium 0.05 mg oral tablet (1 source) l-Thyroxine Start: 03-15-20 End: 08-06-19 take 1 tablet by mouth once daily for thyroid dysfunction levothyroxine (SYNTHROID) 50 mcg tablet TAKE 1 TABLET BY MOUTH ONCE DAILY. TAKE ON EMPTY STOMACH. FOR THYROID 90 tablet 0 03/15/2021 08/05/2021 Discontinued Comment on above: TAKE 1 TABLET BY BRODERICK ONCE DAILY. TAKE ON EMPTY STOMACH. FOR THYROID lidocaine 0.04 mg/mg topical gel (2 sources) Antiarrhythmic, Amide Local Anesthetic Start: 07-24-19 Lidocaine 4 % gel Active 1 NMA TOPICAL BEDTIME July 23, 2024 12:00am magnesium glycinate 100 mg oral tablet (12 sources) Start: 06-28-19 take 1 tablet by mouth twice daily Magnesium Glycinate (MAG GLYCINATE) 100 mg tab Take 1 tablet by mouth two times a day. 06/28/2024 Active magnesium oxide 400 mg oral tablet (20 sources) Start: 07-24-19 take 1 tablet by mouth once daily Magnesium Oxide 400 mg magnesium tablet Active 400 mg PO daily July 23, 2024 12:00am Start: 04-28-2022 take 1 tablet by broderick th twice daily magnesium oxide (MAG-OX) 400 mg (241.3 mg magnesium) tablet Take 1 tablet by mouth twice daily. 60 tablet 3 04/28/2022 Suspended Start: 04-25-2022 End: 04-28-2022 take 1 tablet by mouth once daily magnesium oxide (MAG-OX) 400 mg (241.3 mg magnesium) tablet Take 1 tablet by mouth once daily. 30 tablet 2 04/25/2022 04/28/2022 Discontinued Comment on above: Take 1 tablet by broderick th twice daily. Take 1 tablet by broderick th once daily. pantoprazole 40 mg delayed release oral tablet (20 sources) Proton Pump Inhibitor Start: End: take 1 tablet by mouth twice daily pantoprazole DR (PROTONIX) 40 mg tablet Take 1 tablet by mouth two times a day. 06/28/2024 Active Start: 04-08-2019 End: 07-23-2024 Pantoprazole 40 MG tablet Discontinued 20 mg PO TWICE A DAY April 08, 2019 1:00am July 23, 2024 12:32pm Start: 04-08-2019 take 20 mg by mouth twice poonam y Pantoprazole Active 20 MG PO TWICE A DAY April 08, 2019 1:00am Start: 04-08-2019 take 40 mg by mouth at bedtime Pantoprazole Active 40 MG PO AT BEDTIME April 08, 2019 12:00am prednisoLONE 3 mg/ml oral solution (10 sources) Corticosteroid Start: 06-29-2024 take 13.3 mL by mouth once daily prednisoLONE sodium phosphate (ORAPRED) 15 mg/5 mL (3 mg/mL) oral liquid Take 13.3 mL by mouth once daily. Follow-up with your windows vm[employer] administrator to decide on tapering down do not stop abruptly without plan for discontinuation with your windows [employer] administrator 399 mL 06/29/2024 Active thiamine 100 mg oral tablet (11 sources) Start: 07-23-2024 take 1 tablet by mouth once daily Thiamine Hcl (Vitamin B1) 100 mg tablet Active 100 mg PO daily July 23, 2024 12:00am Start: 06-28-2024 End: 07-28-2024 take 1 tablet by mouth once daily thiamine (VITAMIN B1) 100 mg tablet 1 tablet by ORAL/FEEDING TUBE route once daily. 30 tablet 06/28/2024 Active topiramate 100 mg oral tablet (1 source) Start: 08-19-2012 End: 08-05-2021 take 1 tablet by mouth twice daily topiramate 100 mg tablet Take 1 tablet by mouth twice daily. 0 08/19/2012 08/05/2021 Discontinued Comment on above: Take 1 tablet by mouth twice daily. divalproex sodium 500 mg delayed release oral tablet (1 source) Mood Stabilizer, Anti-epileptic Agent Start: 08-19-2012 End: 08-05-[address] (DEPAKOTE) 500 mg EC tablet Take 250 mg by mouth once daily. 250 mg at night and 500 mg 2x daily 0 08/19/2012 08/05/2021 Discontinued Comment on above: Take 250 mg by mouth once daily. 250 mg at night and 500 mg 2x daily 24 hr venlafaxine 37.5 mg extended release oral capsule (11 sources) Serotonin and Norepinephrine Reuptake Inhibitor Start: 06-29-2024 End: 07-29-2024 take 1 capsule by mouth once daily Venlafaxine 37.5 mg capsule,extended release 24hr Active 37.5 mg PO daily July 23, 2024 12:00am vitamin b12 1 mg/ml injectable solution (20 sources) Vitamin B12 Start: 08-09-2022 inject 1 mL by intramuscular injection every month cyanocobalamin 1,000 mcg/mL Indications: Vitamin B12 deficiency Inject 1 mL intramuscularly once every month. 1 mL 12 08/09/2022 Active Start: 05-01-2022 End: 04-01-2023 cyanocobalamin 1,000 mcg inj ection Comment on above: Inject 1 mL intramus cularly once every month. zinc oxide 0.2 mg/mg topical ointment (9 sources) Start: 06-28-2024 End: 07-28-2024 zinc oxide 20 % ointment Apply to affected area as needed. 06/28/2024 Active Zinc Oxide 20 % paste (2 sources) Start: 07-23-2024 Zinc Oxide 20 % paste Active 1 NMA TOPICAL Q8H as needed for skin irritation July 23, 2024 12:00am Completed/Discontinued Medications Medication Drug Class(es) Dates Sig (Normalized) Sig (Original) acetaminophen 32 mg/ml oral solution (2 sources) Start: 07-23-2024 End: 08-26-2024 take 640 mg by mouth every six hours as needed Acetaminophen 160 mg/5 mL liquid Discontinued 640 mg PO EVERY 6 HOURS as needed July 23, 2024 12:00am August 26, 2024 7:23pm acetaminophen 325 mg / HYDROcodone bitartrate 5 mg oral tablet (7 sources) Opioid Agonist Start: 07-03-2019 End: 07-06-2019 Hydrocodone-Acetami nophen 1 TABLET tablet Discontinued 1 {tbl} PO EVERY 6 HOURS NEEDED as needed for Pain 10 3 July 03, 2019 July 05, 2019 1:00am July 06, 2019 1:09am Start: 07-03-2019 End: 07-06-2019 take 1 tablet by mouth every six hours as needed Hydrocodone-Acetaminophen Discontinued 1 TABLET PO EVERY 6 HOURS NEEDED 10 3 July 03, 2019 July 06, 2019 1:09am apixaban 5 mg oral tablet (6 sources) Factor Xa Inhibitor Start: 06-16-2022 End: 07-23-2024 take 2.5 mg by mouth twice daily Apixaban (Eliquis) 5 mg Tablet Discontinued 2.5 mg PO TWICE A DAY 60 June 16, 2022 1:00am July 23, 2024 12:32pm azithromycin 500 mg oral tablet (5 sources) Macrolide Antimicrobial Start: 05-01-2022 End: 08-09-2022 take 1 tablet by mouth once daily azithromycin (ZITHROMAX) 500 mg tablet Take 1 tablet by mouth once daily. 2 tablet 0 05/01/2022 08/09/2022 Discontinued (Other) Comment on above: Take 1 tablet by broderick once daily. Calcium Chloride (1 source) Start: 06-14-2024 End: 06-13-2024 1 g, INTRAVENOUS, at 100 mL/hr, Administer over 1 Hours, ONCE, 1 dose, On 06/14/24 at 1930, Administer via Central Line Only - Refrigerate - Noncytotoxic Vesicant cephalexin 500 mg oral capsule (2 sources) Cephalosporin Antibacterial Start: 11-24-2022 End: 07-23-2024 take 1 capsule by mouth every eight hours Cephalexin 500 mg capsule Discontinued 500 mg PO Q8H November 24, 2022 12:00am July 23, 2024 12:32pm Esomeprazole (5 sources) Proton Pump Inhibitor End: 11-23-2021 esomeprazole magnesium (NEXIUM ORAL) Take by mouth. 0 11/23/2021 Discontinued esomeprazole mag nesium (NEXIUM ORAL) Take by mouth. 0 Active Comment on above: Take by mouth. lactobacillus acidophilus 460 mg oral capsule (5 sources) Start: 10-04-19 End: 11-24-19 take 1 capsule by mouth once daily Lactobacillus acidophilus (FLORAJEN ACIDOPHILUS) 20 billion cell cap Take 1 capsule by mouth once daily. 30 capsule 0 10/03/2021 11/23/2021 Discontinued Comment on above: [facility]. 50 ml magnesium sulfate 40 mg/ml injection (1 source) Start: 06-14-19 End: 06-13-19 take 2 g intravenously every hour 2 g, INTRAVENOUS, at 25-50 mL/hr, Administer over 1-2 Hours, ONCE, 1 dose, On 06/14/24 at 1930, Magnesium sulfate iv bolus will be infused at a rate of 1 gram/hr The following nursing units may administer 2 g dose over 1 hour if necessary: ICUs/PACU/ED, Adult Hematology/Oncology, Labor and Delivery, Cardiac Stepdown, Headache Clinic If necessary, a magnesium sulfate bolus may be administered greater than 2 g/hr for the following indications: Adult and Pediatric Asthma Exacerbations, Torsade de Pointes, Pediatric BMT and Hematology/Oncology, Eclampsia or Preeclampsia Start: 06-14-2024 End: 06-13-2024 take 2 g intravenously every hour 2 g, INTRAVENOUS, at 25-50 mL/hr, Administer over 1-2 Hours, ONCE, 1 dose, On 06/14/24 at 1930, Magnesium sulfate iv bolus will be infused at a rate of 1 gram/hr The following nursing units may administer 2 g dose over 1 hour if necessary: ICUs/PACU/ED, Adult Hematology/Oncology, Labor and Delivery, Cardiac Stepdown, Headache Clinic If necessary, a magnesium sulfate bolus may be administered greater than 2 g/hr for the following indications: Adult and Pediatric Asthma Exacerbations, Torsade de Pointes, Pediatric BMT and Hematology/Oncology, Eclampsia or Preeclampsia 5 ml midazolam 1 mg/ml injection (1 source) Benzodiazepine Start: 06-16-2024 End: 06-13-2024 1 mg, INTRAVENOUS, ONCE, 1 dose, On 06/16/24 at 0430 Start: 06-16-2024 End: 06-13-2024 1 mg, INTRAVENOUS, ONCE, 1 d ose, On Sun06/16/24 at 0430 Norepinephrine (1 source) Catecholamine Start: 06-16-2024 End: 06-19-2024 0.6-30 mcg/min (0.5625-28.125 mL/hr, rounded to 0.56-28.13 mL/hr), INTRAVENOUS, CONTINUOUS, Starting on Sun06/16/24 at 0500, Until Justine 06/19/24 at 0025, Refrigerate - Noncytotoxic Vesicant - Central Line Only. May be used peripherally under emergent circumstances while a central line is placed according to the Intentional Administration of Catecholamine Vasopressors via a Peripheral Intravenous Catheter Adult Protocol., Select One: Titrate, Choose target parameter: Mean Arterial Pressure (MAP), Titrate to a MAP (mmHg): 60-65, Starting Dose: 0.6-10 mcg/min or Continue at Current Infusion Rate, Titrate Amount/Interval: Titrate by 0.5-5 mcg/min every 1-2 minutes., Contact LIP: If dose adjusted by more than 20 mcg/min within 30 minutes., If this medication is paused for any duration of time and needs to be restarted: Restart at 0.6-10 mcg/min and titrate per order parameters. omeprazole 20 mg delayed release oral capsule (20 sources) Proton Pump Inhibitor Start: 03-15-2021 End: 03-01-2024 take 1 capsule by mouth twice daily before mealtime omeprazole (PRILOSEC) 20 mg capsule Indications: Peptic ulcer disease Take 1 capsule by mouth two times a day. 1/2 hr before meal., can empty the capsule into food 60 capsule 11 03/02/2023 Suspended Comment on above: Take 1 capsule by mo uth twice daily. 1/2 hr before meal., can empty the capsule into food Take 1 capsule by mo uth two times a day. 1/2 hr before meal., can empty the capsule into food predniSONE 50 mg oral tablet (2 sources) Start: 07-23-2024 End: 08-29-2024 take 1 tablet by mouth once daily Prednisone 50 mg tablet Discontinued 50 mg PO daily July 23, 2024 12:00am August 29, 2024 12:07pm 50 ml sodium bicarbonate 84 mg/ml prefilled syringe (2 sources) Start: 06-14-2024 End: 06-12-2024 50 mEq, INTRAVENOUS, ONCE, 1 dose, On 06/14/24 at 1930, Noncytotoxic Vesicant Start: 06-14-2024 End: 06-12-2024 50 mEq, INTRAVENOUS, ONCE, 1 dose, On 06/14/24 at 1930, Noncytotoxic Vesicant 10 ml tranexamic acid 100 mg/ml injection (1 source) Antifibrinolytic Agent Start: 06-14-2024 End: 06-12-2024 1,000 mg, INTRAVENOUS, ONCE, 1 dose, On 06/14/24 at 1930, Administer IV push at a rate of 100 mg/min (1 mL/min). Start: 06-14-2024 End: 06-12-2024 1,000 mg, INTRAVENOUS, ONCE, 1 dose, On 06/14/24 at 1930, Administer IV push at a rate of 100 mg/min (1 mL/min). Problems Active Problems Problem Classification Problem Date Documented Da te Episodic/Chronic Alcohol-related disorders (20 sources) History of alcohol abuse; Translations: [Alcohol abuse, in remission] Onset: 4 05-22-2023 Chronic Alcohol-related disorders (4 sources) Alcohol intoxication; Translations: [Alcohol use, unspecified with intoxication, unspecified] 08-26-2024 Episodic Anxiety disorders (20 sources) Anxiety state; Translations: [Generalized anxiety disorder] Onset: 4 05-22-2023 Chronic Biliary tract disease (3 sources) Biliary calculus; Translations: [Calculus of gallbladder without cholecystitis without obstruction] Onset: 5 08-28-2024 Episodic Chronic obstructive pulmonary disease and bronchiectasis (2 sources) Bronchitis; Translations: [Bronchitis, not specified as acute or chronic] Episodic Coagulation and hemorrhagic disorders (20 sources) Blood coagulation disorder; Translations: [Coagulation defect, unspecified] Onset: 5 06-15-2024 Chronic Deficiency and other anemia (1 source) Iron deficiency anemia secondary to blood loss (chronic); Translations: [Iron deficiency anemia secondary to blood loss (chronic)] Onset: Chronic Deficiency and other anemia (2 sources) Anemia, unspecified; Translations: [Anemia, unspecified] 06-17-2022 Episodic Deficiency and other anemia (1 source) Iron deficiency anemia; Translations: [Iron deficiency anemia, unspecified] Episodic Diabetes mellitus without complication (2 sources) Increased glucose level; Translations: [Other abnormal glucose] Episodic E Codes: Fall (12 sources) Fall; Translations: [Unspecified fall, initial encounter] 06-10-2022 Episodic Endometriosis (20 sources) Endometriosis (clinical); Translations: [Other endometriosis] Onset: 4 05-22-2023 Chronic Esophageal disorders (20 sources) Gastroesophageal reflux disease; Translations: [Gastro-esophageal reflux disease without esophagitis] Onset: 4 05-22-2023 Chronic Gastroduodenal ulcer (except hemorrhage) (4 sources) Peptic ulcer; Translations: [Peptic ulcer, site unspecified, unspecified as acute or chronic, without hemorrhage or perforation] Chronic Gastrointestinal hemorrhage (20 sources) Gastrointestinal hemorrhage; Translations: [Gastrointestinal hemorrhage, unspecified] Onset: 5 Episodic Genitourinary symptoms and ill-defined conditions (20 sources) Urge incontinence of urine; Translations: [Urge incontinence] Onset: 1 Chronic Immunizations and screening for infectious disease (2 sources) Viral screening status; Translations: [Encounter for screening for other viral diseases] Episodic Malaise and fatigue (20 sources) Fatigue; Translations: [Other fatigue] Onset: 1 Episodic Menopausal disorders (20 sources) Menopausal symptom; Translations: [Menopausal and female climacteric states] Onset: 1 01-13-2011 Chronic Mood disorders (20 sources) Mixed bipolar I disorder; Translations: [Bipolar disorder, current episode mixed, unspecified] Onset: 3 Chronic Nutritional deficiencies (20 sources) Vitamin D deficiency; Translations: [Vitamin D deficiency, unspecified] Onset: 7 06-29-2016 Chronic Nutritional deficiencies (4 sources) Cobalamin deficiency; Translations: [Deficiency of other specified B group vitamins] Episodic Osteoarthritis (20 sources) Arthritis of knee; Translations: [Unilateral primary osteoarthritis, unspecified knee] Onset: 1 01-03-2011 Chronic Other circulatory disease (1 source) Respiratory symptom; Translations: [Other specified symptoms and signs involving the circulatory and respiratory systems] Episodic Other connective tissue disease (20 sources) History of total replacement of right hip joint; Translations: [Presence of right artificial hip joint] Onset: 9 08-21-2018 Chronic Other connective tissue disease (20 sources) Artificial knee joint present; Translations: [Presence of right artificial knee joint] Onset: 9 01-24-2019 Chronic Other connective tissue disease (2 sources) Pain in left arm; Translations: [Pain in left arm] Episodic Other liver diseases (11 sources) Decreased liver function; Translations: [Other specified diseases of liver] Onset: 5 06-15-2024 Chronic Other non-traumatic joint disorders (20 sources) Loose body in elbow joint; Translations: [Loose body in unspecified elbow] Onset: 3 11-18-2012 Chronic Other non-traumatic joint disorders (2 sources) Effusion of joint of left elbow; Translations: [Effusion, left elbow] Episodic Other non-traumatic joint disorders (1 source) Shoulder pain; Translations: [Pain in left shoulder] Episodic Other non-traumatic joint disorders (1 source) Pain in left shoulder; Translations: [Pain in joint, shoulder region] 08-11-2022 Episodic Other nutritional; endocrine; and metabolic disorders (5 sources) Hypomagnesemia; Translations: [Hypomagnesemia] Chronic Other nutritional; endocrine; and metabolic disorders (1 source) Hypomagnesemia; Translations: [Hypomagnesemia] Onset: 5 Chronic Other screening for suspected conditions (not mental disorders or infectious disease) (20 sources) Patient encounter status; Translations: [Encounter for other screening for malignant neoplasm of breast] Onset: 3 Episodic Other skin disorders (1 source) Facial swelling ; Translations: [Localized swelling, mass and lump, head] Episodic Other skin disorders (2 sources) Mass of upper limb; Translations: [Localized swelling, mass and lump, left upper limb] Episodic Other skin disorders (1 source) Localized swelling, mass and lump, left upper limb; Translations: [Arm mass, left] Onset: 3 Episodic Other upper respiratory infections (1 source) Acute upper respiratory infection; Translations: [Acute upper respiratory infection, unspecified] Episodic Otitis media and related conditions (1 source) Acute left otitis media; Translations: [Otitis media, unspecified, left ear] Episodic Pancreatic disorders (not diabetes) (3 sources) Pancreatic duct disorder; Translations: [Other specified diseases of pancreas] Onset: 5 08-28-2024 Episodic Pneumonia (except that caused by tuberculosis or sexually transmitted disease) (2 sources) Pneumonia; Translations: [Pneumonia, unspecified organism] 06-22-2024 Episodic Residual codes; unclassified (7 sources) H/O: poisoning; Translations: [Personal history of other specified conditions] 06-10-2022 Episodic Residual codes; unclassified (3 sources) Personal history of other specified conditions; Translations: [Alcohol abuse, in remission] 06-10-2022 Episodic Residual codes; unclassified (8 sources) Current drinker; Translations: [Other specified health status] Onset: 5 06-15-2024 Episodic Septicemia (except in labor) (4 sources) Septic shock; Translations: [Sepsis, unspecified organism] 06-22-2024 Episodic Shock (1 source) Shock, unspecified; Translations: [Shock (HCC)] Onset: 5 Episodic Superficial injury; contusion (3 sources) Contusion of chest; Translations: [Contusion of unspecified front wall of thorax, initial encounter] 11-15-2022 Episodic Syncope (8 sources) Near syncope; Translations: [Syncope and collapse] Episodic Thyroid disorders (20 sources) Hypothyroidism; Translations: [Hypothyroidism, unspecified] Onset: 7 Chronic Unclassified (1 source) NO SHOW 05-19-2024 Past or Other Problems Problem Classification Problem Date Documented Da te Episodic/Chronic Acute and unspecified renal failure (13 sources) Acute renal failure syndrome; Translations: [Acute kidney failure, unspecified] Onset: 5 06-15-2024 Episodic Acute posthemorrhagic anemia (11 sources) Acute posthemorrhagic anemia; Translations: [Acute posthemorrhagic anemia] Onset: 5 06-16-2024 Episodic Coma; stupor; and brain damage (20 sources) Loss of consciousness; Translations: [Unspecified coma] Onset: 4 05-22-2023 Episodic Complications of surgical procedures or medical care (20 sources) Periprosthetic fracture; Translations: [Periprosthetic fracture around internal prosthetic right knee joint, subsequent encounter] Onset: 9 Episodic Deficiency and other anemia (20 sources) Anemia; Translations: [Anemia, unspecified] Onset: 3 Episodic Fluid and electrolyte disorders (20 sources) Hypokalemia; Translations: [Hypokalemia] Onset: 3 Episodic Fracture of neck of femur (hip) (20 sources) Fracture of neck of femur; Translations: [Fracture of unspecified part of neck of left femur, initial encounter for closed fracture] Onset: 3 06-10-2022 Episodic Fracture of neck of femur (hip) (20 sources) Closed intertrochanteric fracture of right femur; Translations: [Displaced intertrochanteric fracture of right femur, initial encounter for closed fracture] Onset: 6 Resolved: 7 06-29-2016 Episodic Genitourinary symptoms and ill-defined conditions (20 sources) Urgent desire to urinate; Translations: [Urgency of urination] Onset: 1 01-13-2011 Episodic Joint disorders and dislocations; trauma-related (20 sources) Traumatic arthropathy-hip; Translations: [Traumatic arthropathy, right hip] Onset: 9 Resolved: 9 06-28-2018 Chronic Joint disorders and dislocations; trauma-related (20 sources) Tear of medial meniscus of knee; Translations: [Tear of medial cartilage or meniscus of knee, current] Onset: 3 05-22-2023 Episodic Nausea and vomiting (20 sources) Nausea and vomiting; Translations: [Nausea with vomiting, unspecified] Onset: 2 05-22-2023 Episodic Other and unspecified benign neoplasm (20 sources) Tubular adenoma of colon; Translations: [Benign neoplasm of colon, unspecified] Onset: 3 08-23-2012 Episodic Other and unspecified benign neoplasm (20 sources) Polyp of colon; Translations: [Polyp of colon] Onset: 4 05-22-2023 Episodic Other bone disease and musculoskeletal deformities (20 sources) 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; Translations: [Idiopathic aseptic necrosis of right femur] Onset: 9 Resolved: 9 06-28-2018 Chronic Other bone disease and musculoskeletal deformities (20 sources) Osteopenia; Translations: [Other specified disorders of bone density and structure, unspecified site] Onset: 4 05-22-2023 Episodic Other connective tissue disease (20 sources) H/O: osteoarthritis; Translations: [Personal history of other diseases of the musculoskeletal system and connective tissue] Onset: 4 05-13-2013 Episodic Other female genital disorders (20 sources) Cervical intraepithelial neoplasia grade 2; Translations: [Moderate cervical dysplasia] Onset: 1 Episodic Other gastrointestinal disorders (20 sources) Chronic constipation; Translations: [Other constipation] Onset: 4 05-13-2013 Episodic Other gastrointestinal disorders (20 sources) Dysphagia; Translations: [Dysphagia, unspecified] Onset: 4 05-22-2023 Episodic Other nervous system disorders (20 sources) Abnormal gait; Translations: [Unspecified abnormalities of gait and mobility] Onset: 1 Episodic Other nervous system disorders (20 sources) Unsteady when standing; Translations: [Unsteadiness on feet] Onset: 1 05-22-2023 Episodic Other nervous system disorders (11 sources) Toxic metabolic encephalopathy; Translations: [Toxic metabolic encephalopathy] Onset: 5 06-15-2024 Episodic Other non-traumatic joint disorders (20 sources) Pain in unspecified knee; Translations: [Pain in joint, lower leg] Onset: 1 04-20-2011 Episodic Other non-traumatic joint disorders (20 sources) Shoulder joint pain; Translations: [Pain in unspecified shoulder] Onset: 4 02-23-2014 Episodic Other non-traumatic joint disorders (6 sources) Pain in right hip joint; Translations: [Pain in right hip] Onset: 1 05-22-2023 Episodic Other non-traumatic joint disorders (20 sources) Hip pain; Translations: [Pain in right hip] Onset: 1 05-22-2023 Episodic Residual codes; unclassified (20 sources) H/O: Disorder; Translations: [Personal history of other specified conditions] Onset: 4 05-22-2023 Episodic Residual codes; unclassified (20 sources) Insomnia; Translations: [Insomnia, unspecified] Onset: 2 05-22-2023 Episodic Respiratory failure; insufficiency; arrest (adult) (11 sources) Acute respiratory failure; Translations: [Acute respiratory failure with hypoxia] Onset: 5 06-16-2024 Episodic Schizophrenia and other psychotic disorders (20 sources) Reactive psychoses; Translations: [Brief psychotic disorder] Onset: 4 05-22-2023 Episodic Screening and history of mental health and substance abuse codes (20 sources) H/O: manic depressive disorder; Translations: [Personal history of other mental and behavioral disorders] Onset: 3 05-13-2013 Episodic Unclassified (1 source) Patient encounter status 08-19-2024 Urinary tract infections (19 sources) Acute cystitis; Translations: [Acute cystitis with hematuria] Onset: 5 06-16-2024 Episodic Results Test Name Value Interpretation Reference Range Facility MR/BCCEVCUD2et 10-05-2024 MR/POSTOPAN2 [facility] Medical Records Department [address] [place] [address] Anesthesia Postop Eval II 10/05/24 1746 MR#: [id number] Acct: [id number] Name: KENYATTA CARRILLO Rep #: [id number] : 1960 64 From: Lefty Garcia MD PCP: Dr. Naye Sheets MD Status:PRE SDC Y Race: C Location: EN Anesthesia Postop Eval I Sum Postop Eval Completion status Anesthesia document: Postop Eval 1 completed: Yes Anesthesia Postop Eval I Summary Anesthesia Postop Eval I Summary: Anesthesia Postop Eval I: Assessment Summary Airway patent Yes 10/06/24 09:44 Spontaneous unlabored Yes 10/06/24 09:44 respirations Mental status Awake 10/06/24 09:44 nausea No 10/06/24 09:44 Vomiting No 10/06/24 09:44 Anesthesia Postop Eval I: Fluid Summary Crystalloid volume administer 20 10/06/24 09:44 (ml) Colloids volume administered ( ml) Blood Product volume administered (ml) Total IV fluid infused 20 10/06/24 09:44 Anesthesia Postop Eval I: Summary Notes Anesthesia Complication No 10/06/24 09:44 Anesthesia Complication Comment: Post-operative progress note Anesthesia: Postop Eval II Evaluation Mental status: Awake Pain Level: 0 nausea: No Vomiting: No 10/06/2446 Date Lefty Garcia MD Cosign Signature: Date CC: Signed Normal [facility] MR/POSTOP.[facility] 10-04-2024 MR/POSTOP.[facility] Medical Records Department [address] [place] [address] Anesthesia Postop Eval I 10/04/2443 MR#: [id number] Acct: [id number] Name: KENYATTA CARRILLO Rep #: [id number] : 1960 64 From: Lefty Garcia MD PCP: Dr. Naye Sheets MD Status:PRE SD Y Race: C Location: EN Anesthesia: Postop Eval I Current Vital Signs Temperature: 97 F Pulse Rate: 85 Blood Pressure: 110/60 Respiratory Rate: 16 Pulse Ox: 95 Assessment Airway patent: Yes Spontaneous unlabored respirations: Yes Mental status: Awake nausea: No Vomiting: No Anesthesia Complication: No Fluid Hydration Crystalloid volume administer (ml): 20 Total IV fluid infused: 20 Progress Note Anesthesia document: Postop Eval 1 completed: Yes 10/06/24 0944 Date Lefty Garcia MD Cosigner Signature: Date CC: Signed [facility] Basic Metabolic Profile (BMP )on 10-03-2024 BUN/CRE 9.1 RATIO Low 10-20 [facility] Comment on above: Performed By: #### L 300.4310, L501.4020, M200.1000, L100.0100, L500.4050, L503.6005, L300.3900, L501.3620 #### [facility] [address] [place], [address] Calcium [Mass/Vol] 8.0 mg/dL Normal 7.6-11.0 [facility] Comment on above: Performed By: #### L 300.4310, L501.4020, M200.1000, L100.0100, L500.4050, L503.6005, L300.3900, L501.3620 #### [facility] [address] [place], [address] Chloride [Moles/Vol] 101 mmol/L Normal 98-108 [facility] Comment on above: Performed By: #### L 300.4310, L501.4020, M200.1000, L100.0100, L500.4050, L503.6005, L300.3900, L501.3620 #### [facility] [address] [place], [address] CO2 [Moles/Vol] 24.5 mmol/L Normal 21.0-32.0 [facility] Comment on above: Performed By: #### L 300.4310, L501.4020, M200.1000, L100.0100, L500.4050, L503.6005, L300.3900, L501.3620 #### [facility] [address] [place], [address] Creatinine [Mass/Vol] 0.51 mg/dL Low 0.70-1.20 [facility] Comment on above: Performed By: #### L 300.4310, L501.4020, M200.1000, L100.0100, L500.4050, L503.6005, L300.3900, L501.3620 #### [facility] [address] [place], [address] ECRCL 79.83 ml/min Normal 50-250 [facility] Comment on above: Performed By: #### L 300.4310, L501.4020, M200.1000, L100.0100, L500.4050, L503.6005, L300.3900, L501.3620 #### [facility] [address] [place], [address] GAP 10 Normal 5-15 [facility] Comment on above: Performed By: #### L 300.4310, L501.4020, M200.1000, L100.0100, L500.4050, L503.6005, L300.3900, L501.3620 #### [facility] [address] [place], [address] GFR/1.73 sq M.predicted among non-blacks MDRD (S/P/Bld) [Vol rate/Area] 103 mL/min/{1.73_m2} Normal >60 [facility] Comment on above: Result Comment: mL/m in/1.73m2 CKD-EPI Creatinine Equation (2020) Performed By: #### L 300.4310, L501.4020, M200.1000, L100.0100, L500.4050, L503.6005, L300.3900, L501.3620 #### [facility] [address] [place], [address] Glucose [Mass/Vol] 106 mg/dL High 70-99 [facility] Comment on above: Performed By: #### L 300.4310, L501.4020, M200.1000, L100.0100, L500.4050, L503.6005, L300.3900, L501.3620 #### [facility] [address] [place], [address] Potassium [Moles/Vol] 3.5 mmol/L Normal 3.3-5.1 [facility] Comment on above: Performed By: #### L 300.4310, L501.4020, M200.1000, L100.0100, L500.4050, L503.6005, L300.3900, L501.3620 #### [facility] [address] [place], [address] Sodium [Moles/Vol] 136 mmol/L Normal 133-145 [facility] Comment on above: Performed By: #### L 300.4310, L501.4020, M200.1000, L100.0100, L500.4050, L503.6005, L300.3900, L501.3620 #### [facility] [address] [place], [address] Urea nitrogen [Mass/Vol] 5 mg/dL Normal 4-19 [facility] Comment on above: Performed By: #### L 300.4310, L501.4020, M200.1000, L100.0100, L500.4050, L503.6005, L300.3900, L501.3620 #### [facility] [address] [place], [address] Discharge Instructionon 09-12 Discharge Instruction [facility] Medical Records Department [address] [place] [address] Instructions for Home/Discharge Instructions 10/03/24 1606 MR#: [id number] Acct: [id number] Name: KENYATTA CARRILLO Rep #: [id number] : 1960 64 From: Fermin Calvo DO PCP: Care Physician,No Primary Status:ADM IN Discharge Instructions Diet Discharge Diet: - (Clear liquid diet today, advance to regular diet tomorrow) DC O2, CPAP, BIPAP needs Home O2 Discharge instructions: No Dressing / Incision Discharge Activity: Return to Normal Activity Weight Bearing Status: Full weight bearing Follow Up Care Test Results: Test results from this visit will be discussed in further detail at your follow-up appointment, if applicable. Discharge Plan Admission Admit Date/Time: 10/02/24 11:35 Primary Reason for Your Visit: Hypokalemia, hypomagnesemia, erosive esophagitis Attending Provider: Fermin Calvo Primary Care Provider: Care Physician,No Primary Instructions Additional Instructions / Restrictions: Follow-up with the primary care physician within a month Discharge Orders/Prescriptions Prescriptions: New ferrous sulfate [FeroSul] 325 mg (65 mg iron) Tablet 325 mg PO QODAY@1200 Qty: 0 0RF Continued cyanocobalamin (vitamin B-12) 1,000 mcg/mL solution 1,000 mcg IM QMONTH folic acid 1 mg tablet 1 mg PO QDAY ipratropium-albuterol 0.5 mg-3 mg(2.5 mg base)/3 mL solution for nebulization 3 ml inhalation Q4H PRN (Reason: shortness of breath) lidocaine 4 % gel 1 applic topical HS Mag Glycinate 100 mg tablet 100 mg PO BID magnesium oxide 400 mg magnesium tablet 400 mg PO QDAY thiamine HCl (vitamin B1) 100 mg tablet 100 mg PO QDAY calcium carbonate [Tums] 200 mg calcium (500 mg) tablet,chewable 200 mg PO BID PRN (Reason: dyspepsia) venlafaxine 37.5 mg capsule,extended release 24hr 37.5 mg PO QDAY cholecalciferol (vitamin D3) 1,250 mcg (50,000 unit) capsule 1,250 mcg PO 2XW zinc oxide 20 % paste 1 ea topical Q8H PRN (Reason: skin irritation) pantoprazole 40 mg tablet,delayed release (DR/EC) 40 mg PO BID 30 Days Qty: 60 2RF Referrals / Follow Up: Troy Self DO [Med Staff - Active Staff] - Within 1 Month Care Physician,No Primary [Primary Care Provider] - Disposition Disposition (needs filled in before D/C Order can be placed): Home, Self Care 10/03/24 1610 Fermin Calvo DO CC: No Primary Care Physician Signed Normal [facility] EGD Reporton 10-03-2024 EGD Report [facility] Medical Records Department [address] [place] [address] EGD Report MR#: [id number] Acct: [id number] Name: KENYATTA CARRILLO Rep #: [id number] : 1960 64 From: Troy Self DO PCP: Care Physician,No Primary Status:ADM IN Patient Name: Kenyatta Carrillo Procedure Date: 10/03/2024 3:40 PM Date of : 1960 Age: 64 Procedure: Upper GI endoscopy Indications: Epigastric abdominal pain, Acute post hemorrhagic anemia, Recent gastrointestinal bleeding Providers: Troy Self DO Medicines: Monitored Anesthesia Care Patient Profile: This is a 64 year old female. Refer to note in patient chart for documentation of history and physical. Patient has symptoms of acute dyspepsia, acute nausea and acute vomiting. Complications: No immediate complications. Procedure: Pre-Anesthesia Assessment: - Prior to the procedure, a History and Physical was performed, and patient medications and allergies were reviewed. The patient is competent. The risks and benefits of the procedure and the sedation options and risks were discussed with the patient. All questions were answered and informed consent was obtained. Patient identification and proposed procedure were verified by the physician in the pre-procedure area. Mental Status Examination: alert and oriented. Airway Examination: normal oropharyngeal airway and neck mobility. Respiratory Examination: clear to auscultation. CV Examination: normal. Prophylactic Antibiotics: The patient does not require prophylactic antibiotics. Prior Anticoagulants: The patient has taken no anticoagulant or antiplatelet agents except for NSAID medication. ASA Grade Assessment: II - A patient with mild systemic disease. After reviewing the risks and benefits, the patient was deemed in satisfactory condition to undergo the procedure. The anesthesia plan was to use monitored anesthesia care (MAC). Immediately prior to administration of medications, the patient was re-assessed for adequacy to receive sedatives. The heart rate, respiratory rate, oxygen saturations, blood pressure, adequacy of pulmonary ventilation, and response to care were monitored throughout the procedure. The physical status of the patient was re-assessed after the procedure. After obtaining informed consent, the endoscope was passed under direct vision. Throughout the procedure, the patient's blood pressure, pulse, and oxygen saturations were monitored continuously. The Endoscope was introduced through the mouth, and advanced to the third part of the duodenum. Small bowel enteroscopy was deemed necessary. The upper GI endoscopy was accomplished without difficulty. The patient tolerated the procedure well. Scope In: 3:52:11 PM Scope Out: 3:59:02 PM Total Procedure Duration Time 0 hours 6 minutes 51 seconds Findings: LA Grade D (one or more mucosal breaks involving at least 75% of esophageal circumference) esophagitis with bleeding was found 33 to 40 cm from the incisors. Biopsies were taken with a cold forceps for histology. Verification of patient identification for the specimen was done. Estimated blood loss was minimal. Coagulation for hemostasis using heater probe was successful. Estimated blood loss was minimal. A medium-sized hiatal hernia was present. No other significant abnormalities were identified in a careful examination of the stomach. No gross lesions were noted in the entire examined duodenum. Impression: - LA Grade D erosive esophagitis with bleeding. Biopsied. Treated with a heater probe. - Medium-sized hiatal hernia. - No gross lesions in the entire examined duodenum. Recommendation: - [facility]. - Full liquid diet today. - Continue present medications. - Use Protonix (pantoprazole) 40 mg PO BID indefinitely. Procedure Code(s): --- Professional --- 06999, 59, Small intestinal endoscopy, enteroscopy beyond second portion of duodenum, not including ileum; with control of bleeding (eg, injection, bipolar cautery, unipolar cautery, laser, heater probe, stapler, plasma cafe or restaurant manager) 49810, 51, Small intestinal endoscopy, enteroscopy beyond second portion of duodenum, not including ileum; with biopsy, single or multiple CPT copyright 2021 [employer]. All rights reserved. The codes documented in this report are preliminary and upon quality control tech review may be revised to meet current compliance requirements. Troy Self DO 10/03/2024 4:03:54 PM This report has been signed electronically. Number of Addenda: 0 Note Initiated On: 10/03/2024 3:40 PM 10/03/24 1604 Date Troy Self DO [facility] Signature: Date (if indicated) CC: No (more content not included)... Normal [facility] Immunohistochemical Stainson 10-03-2024 Immunohistochemical Stains Patient Age/Sex Location Account Attending Physician KENYATTA CARRILLO 64/F [facility] [id number] Dr. Fermin Calvo, Specimen: [id number] Received: 10/07/24 Status: ANDREINA Carrera Num: [id number] Spec Type: EGD BIOPSY Subm Dr: DO KELVIN Spear OPERATION: EGD, biopsy, cautery of GI bleed PRE-OP DIAGNOSIS: Anemia, alcoholic hepatitis, cholelithiasis, dilated pancreatic duct TISSUE SUBMITTED: A- Distal esophagus biopsy MICROSCOPIC DIAGNOSIS A. Esophagus, distal, biopsy: * Squamous mucosa with acute inflammation and reactive changes. * Polypoid fragment of inflamed granulation tissue, consistent with ulcer. * Columnar mucosa negative for goblet cell metaplasia. * PASD stain is negative for fungal organisms. * IHC for HSV (herpes simplex virus types I II) and CMV (cytomegalovirus) are negative. MICROSCOPIC DESCRIPTION Slides are reviewed. All matched controls reacted appropriately. These tests were developed and their performance characteristics determined by [facility]. They may not have been cleared or approved by the U.S. Food and Drug Administration. The FDA has determined that such clearance or approval is not necessary.??? The above immunohistochemical/dual CAITLIN???markers are ordered and reviewed by the Pathologist. GROSS DESCRIPTION A. Received in formalin in a container labeled with the patient's name, date of , and distal esophagus are multiple whitt-pink fragments of mucosal tissue measuring 1.1 x 0.6 x 0.3 cm in aggregate. Submitted in toto in A1. [facility] 10-07-2024 CPT:95231,33627,19618,88 312 Patient Age/Sex Location Account Attending Physician KENYATTA CARRILLO 64/F U [id number] Dr. Fermin Calvo, DO Signed (signature on file) Dr. Laurie Poe MD 10/14/24 1537 [facility] Comment on above: Performed By: #### L 503.5510, L503.6005 #### [facility] [address] [place], [address] MR/CON.PCM.GIon 10-03-2024 MR/CON.PCM.GI [facility] Medical Records Department [address] [place] [address] Consultation - GI 10/03/24 1534 MR#: [id number] Acct: [id number] Name: KENYATTA CARRILLO Rep #: [id number] : 1960 64 From: Troy Friend DO PCP: Care Physician,No Primary Status:ADM IN Location: [place] [address] HPI Consult Data Date of Consult: 10/03/24 HPI Narrative Reason for Consultation: GI bleed and anemia HPI Narrative: KENYATTA CARRILLO, is a 64-year-old female who presented to the ED on 10/01/2024 with generalized weakness and bilateral lower extremities swelling. She has a history of possible cirrhosis, alcoholic hepatitis, alcoholism, chronic pancreatitis. She has been having some increased weight gain in her legs and abdomen and was supposed to undergo a possible paracentesis. She presented to the ED last month for melanotic stools and was supposed to undergo GI evaluation with possible endoscopy however it was not done. chemistry profile was abnormal for a potassium of 2.4 and a magnesium of 0.8. AST was elevated at 113 and alkaline phosphatase was 201.. Blood work is consistent with alcoholic hepatitis. Her electrolytes were thought to be all secondary to alcoholism. She complains of melanotic stools. [facility] Medical History Cholelithiasis Anemia Migraines Difficulty walking Urge incontinence Acute cystitis with hematuria Muscle weakness Osteoarthritis Alcoholic hepatitis Alcoholic liver disease Acute respiratory failure with hypoxia Metabolic encephalopathy Major depression Protein calorie malnutrition Acute post-hemorrhagic anemia Dysphagia, oropharyngeal phase Malignant neoplasm of colon Ulcer Restless legs Injury of head and neck Anemia Alcohol abuse Bipolar disorder Hypothyroidism Osteoporosis Kidney stones GERD (gastroesophageal reflux disease) GI bleed Former smoker Home Medications ???Medication ???Instructions ???Recorded ???Last Taken ???Type calcium carbonate (Tums) 200 mg PO BID PRN dyspepsia Unknown History cholecalciferol (vitamin D3) 1,250 1,250 mcg PO 2XW supplement 07/12 07/08 Unknown History mcg (50,000 unit) capsule cyanocobalamin (vitamin B-12) 1,000 mcg IM QMONTH 07/23/24 Unkno wn History 1,000 mcg/mL injection solution folic acid 1 mg tablet 1 mg PO QDAY 07/23/24 Unknown Hist ory ipratropium 0.5 mg-albuterol 3 mg 3 ml inhalation Q4H PRN shortness 07/23/24 Unknown History (2.5 mg base)/3 mL nebulization of breath soln lidocaine 4 % topical gel 1 applic topical HS 07/23/24 Unkno wn History magnesium glycinate 100 mg (as 100 mg PO BID 07/23/24 Unknown His tory glycinate) tablet (Mag Glycinate) magnesium oxide 400 mg PO QDAY 07/23/24 Unknown Hi story thiamine HCl (vitamin B1) 100 mg 100 mg PO QDAY 07/23/24 Unknown Hi story tablet venlafaxine 37.5 mg 37.5 mg PO QDAY 07/23/24 Unknown H istory capsule,extended release 24 hr zinc oxide 20 % topical paste 1 ea topical Q8H PRN skin 07/23/24 Unknown History irritation pantoprazole 40 mg tablet,delayed 40 mg PO BID GERD 30 days #60 tab s 08/29/24 Unknown Rx release Allergy/AdvReac Type Severity Reaction Status Date / Time amoxicillin Allergy Intermediate Swelling, Verified 10/02/24 09:57 itching Family History Mother Alcohol abuse CAD (coronary artery disease) Heart disease Hypertension Myocardial infarction Father Alcohol abuse Cancer Surgical History History of total knee arthroplasty History of right hip replacement H/O total hysterectomy Social History household members: none Smoking Status: Never smoker alcohol intake: current alcohol intake frequency: 3 or more drinks per day details: Notes binge drinking, whiskey. substance use type: other details: Former cannabis usage. Stopped 40 years ago. ROS Constitutional Constitutional: Denies fatigue, fever(s), poor appetite, weight gain or weight loss Gastrointestinal Gastrointestinal: Denies belching, bloating, change in bowel habits, change in stool character, chewing difficulty, coffee ground emesis, constipation, cramping, diarrhea, dyspepsia, dysphagia, early satiety, excessive flatus, fecal incontinence, heartburn, hematemesis, hematochezia, hemorrhoids, loose stools, melena, nausea, odynophagia, rectal bleeding, tenesmus, vomiting or weight changes Physical Exam Const alert, oriented x3, no apparent distress and healthy appearing General Appearance: cooperative GI normal to inspection, nondistended, normoactive bowel sounds, soft to palpation, non-tender and non- distended Percussion: normal to percussion Rectal Exam: deferred Lab / Micro (more content not included)... Normal [facility] MR/[id number] 10-03-2024 MR/POSTOPAN2 [facility] Medical Records Department [address] [place] [address] Anesthesia Postop Eval II 10/03/24 1629 MR#: [id number] Acct: [id number] Name: KENYATTA CARRILLO Rep #: [id number] : 1960 64 From: Ganesh Rosario CRNA PCP: Care Physician,No Primary Status:ADM IN Y Race: C Location: [place] [address] Anesthesia Postop Eval I Sum Anesthesia Postop Eval I Summary Anesthesia Postop Eval I Summary: Anesthesia Postop Eval I: Assessment Summary Airway patent Spontaneous unlabored respirations Mental status nausea Vomiting Anesthesia Postop Eval I: Fluid Summary Crystalloid volume administer (ml) Colloids volume administered ( ml) Blood Product volume administered (ml) Total IV fluid infused Anesthesia Postop Eval I: Summary Notes Anesthesia Complication Anesthesia Complication Comment: Post-operative progress note Anesthesia: Postop Eval II Evaluation Mental status: Awake Pain Level: 0 nausea: No Vomiting: No 10/03/24 1629 Date Ganesh Rosario CRNA Cosigner Signature: Date CC: Signed Normal [facility] 12 Lead EKGon 10-02-2024 12 Lead EKG [facility] Cardiovascular Services [address] [place] [address] 12 Lead EKG 10/02/24 1038 MR#: [id number] Acct: [id number] Name: KENYATTA CARRILLO Rep #: [id number] : 1960 64 From: Rachel Kaur MD Attending Dr: Dr. Fermin Calvo DO Status: D IS IN Ordering Dr: Jose Rodriguez MD Date: 10/02/24 [facility] Sex: F C Admitted: 10/02/24 Test Reason : Blood Pressure : */* mmHG Vent. Rate : 78 BPM Atrial Rate : 78 BPM P-R Int : 178 ms QRS Dur : 88 ms QT Int : 422 ms P-R-T Axes : -13 10 37 degrees QTcB Int : 481 ms Normal sinus rhythm QTcB >= 480 msec Abnormal ECG Confirmed by PATRICIO GASTON, TOM ([id number]), map editor QUE POLANCO ([id number]) on 10/07/2024 6:51:38 AM Referred By: FRIDA Confirmed By: TOM KAUR MD 10/07/24 0651 Date Rachel Kaur MD CC: Dr. Jose Rodriguez MD; Dr. Fermin Calvo, ; No Primary Care Physician Signed Normal [facility] Basic Metabolic Profile (BMP )on 10-02-2024 BUN/CRE 7.9 RATIO Low 10-20 [facility] Comment on above: Performed By: #### L 300.4310, L501.4020, M200.1000, L100.0100, L500.4050, L503.6005, L300.3900, L501.3620 #### [facility] [address] [place], [address] Calcium [Mass/Vol] 7.8 mg/dL Normal 7.6-11.0 [facility] Comment on above: Performed By: #### L 300.4310, L501.4020, M200.1000, L100.0100, L500.4050, L503.6005, L300.3900, L501.3620 #### [facility] [address] [place], [address] Chloride [Moles/Vol] 99 mmol/L Normal 98-108 [facility] Comment on above: Performed By: #### L 300.4310, L501.4020, M200.1000, L100.0100, L500.4050, L503.6005, L300.3900, L501.3620 #### [facility] [address] [place], [address] CO2 [Moles/Vol] 23.8 mmol/L Normal 21.0-32.0 [facility] Comment on above: Performed By: #### L 300.4310, L501.4020, M200.1000, L100.0100, L500.4050, L503.6005, L300.3900, L501.3620 #### [facility] [address] [place], [address] Creatinine [Mass/Vol] 0.68 mg/dL Low 0.70-1.20 [facility] Comment on above: Performed By: #### L 300.4310, L501.4020, M200.1000, L100.0100, L500.4050, L503.6005, L300.3900, L501.3620 #### [facility] [address] [place], [address] ECRCL 79.83 ml/min Normal 50-250 [facility] Comment on above: Performed By: #### L 300.4310, L501.4020, M200.1000, L100.0100, L500.4050, L503.6005, L300.3900, L501.3620 #### [facility] [address] [place], [address] GAP 11 Normal 5-15 [facility] Comment on above: Performed By: #### L 300.4310, L501.4020, M200.1000, L100.0100, L500.4050, L503.6005, L300.3900, L501.3620 #### [facility] [address] [place], [address] GFR/1.73 sq M.predicted among non-blacks MDRD (S/P/Bld) [Vol rate/Area] 96 mL/min/{1.73_m2} Normal >60 [facility] Comment on above: Result Comment: mL/m in/1.73m2 CKD-EPI Creatinine Equation (2020) Performed By: #### L 300.4310, L501.4020, M200.1000, L100.0100, L500.4050, L503.6005, L300.3900, L501.3620 #### [facility] [address] [place], [address] Glucose [Mass/Vol] 144 mg/dL High 70-99 [facility] Comment on above: Performed By: #### L 300.4310, L501.4020, M200.1000, L100.0100, L500.4050, L503.6005, L300.3900, L501.3620 #### [facility] [address] [place], [address] Potassium [Moles/Vol] 3.4 mmol/L Normal 3.3-5.1 [facility] Comment on above: Performed By: #### L 300.4310, L501.4020, M200.1000, L100.0100, L500.4050, L503.6005, L300.3900, L501.3620 #### [facility] [address] [place], [address] Sodium [Moles/Vol] 134 mmol/L Normal 133-145 [facility] Comment on above: Performed By: #### L 300.4310, L501.4020, M200.1000, L100.0100, L500.4050, L503.6005, L300.3900, L501.3620 #### [facility] [address] [place], [address] Urea nitrogen [Mass/Vol] 5 mg/dL Normal 4-19 [facility] Comment on above: Performed By: #### L 300.4310, L501.4020, M200.1000, L100.0100, L500.4050, L503.6005, L300.3900, L501.3620 #### [facility] [address] [place], [address] CBC W/Diff, Automatedon 05-2 2-2024 Absolute Lymph 1.47 X10 3/uL Normal 0.83-4.51 [facility] Comment on above: Performed By: #### L 501.5200, L500.4050, L100.0100 ####[facility] [address] [place], [address] Absolute Neut 2.2 X10 3/uL Normal 2.0-7.7 [facility] Comment on above: Performed By: #### L 501.5200, L500.4050, L100.0100 ####[facility] [address] [place], [address] Basophils/100 WBC (Bld) 0.7 % Normal 0-1 [facility] Comment on above: Performed By: #### L 501.5200, L500.4050, L100.0100 ####[facility] [address] [place], [address] Eosinophils/100 WBC (Bld) 2.7 % Normal 0-5 [facility] Comment on above: Performed By: #### L 501.5200, L500.4050, L100.0100 ####[facility] [address] [place], [address] Erythrocyte distribution width (RBC) [Ratio] 17.8 % High 11.6-14.6 [facility] Comment on above: Performed By: #### L 501.5200, L500.4050, L100.0100 ####[facility] [address] [place], [address] Hematocrit (Bld) [Volume fraction] 37.3 % Normal 37-47 [facility] Comment on above: Performed By: #### L 501.5200, L500.4050, L100.0100 ####[facility] [address] [place], [address] Hemoglobin (Bld) [Mass/Vol] 12.0 g/dL Normal 12.0-15.0 [facility] Comment on above: Performed By: #### L 501.5200, L500.4050, L100.0100 ####[facility] [address] [place], [address] IG% 0.400 Normal 0.0-0.9 [facility] Comment on above: Result Comment: IG% - Immature Granulocytes (promyelocytes, myelocytes and metamyelocytes) > 1% indicates that a LEFT SHIFT is Present. Performed By: #### L 501.5200, L500.4050, L100.0100 ####[facility] [address] [place], [address] Lymphocytes/100 WBC (Bld) 32.9 % Normal 19-41 [facility] Comment on above: Performed By: #### L 501.5200, L500.4050, L100.0100 ####[facility] [address] [place], [address] MCH (RBC) [Entitic mass] 28.7 pg Normal 27.0-32.0 [facility] Comment on above: Performed By: #### L 501.5200, L500.4050, L100.0100 ####[facility] [address] [place], [address] MCHC (RBC) [Mass/Vol] 32.2 g/dL Normal 32-36 [facility] Comment on above: Performed By: #### L 501.5200, L500.4050, L100.0100 ####[facility] [address] [place], [address] MCV (RBC) [Entitic vol] 89.2 fL Normal 81-99 [facility] Comment on above: Performed By: #### L 501.5200, L500.4050, L100.0100 ####[facility] [address] [place], [address] Monocytes/100 WBC (Bld) 13.9 % High 0-10 [facility] Comment on above: Performed By: #### L 501.5200, L500.4050, L100.0100 ####[facility] [address] [place], [address] Neutrophils/100 WBC (Bld) 49.4 % Normal 47-70 [facility] Comment on above: Performed By: #### L 501.5200, L500.4050, L100.0100 ####[facility] [address] [place], [address] Nucleated RBC (Bld) [#/Vol] 0 10*3/uL Normal 0-5 [facility] Comment on above: Performed By: #### L 501.5200, L500.4050, L100.0100 ####[facility] [address] [place], [address] Platelet mean volume (Bld) [Entitic vol] 9.9 fL Normal 6.2-12.0 [facility] Comment on above: Performed By: #### L 501.5200, L500.4050, L100.0100 ####[facility] [address] [place], [address] Platelets (Bld) [#/Vol] 207 10*3/uL Normal 150-450 [facility] Comment on above: Performed By: #### L 501.5200, L500.4050, L100.0100 ####[facility] [address] [place], [address] RBC (Bld) [#/Vol] 4.18 10*6/uL Low 4.2-5.4 [facility] Comment on above: Performed By: #### L 501.5200, L500.4050, L100.0100 ####[facility] [address] [place], [address] RDW SD 56.8 fl High 35.1-43.9 [facility] Comment on above: Performed By: #### L 501.5200, L500.4050, L100.0100 ####[facility] [address] [place], [address] WBC (Bld) [#/Vol] 4.5 10*3/uL Normal 4.4-11.0 [facility] Comment on above: Performed By: #### L 501.5200, L500.4050, L100.0100 ####[facility] [address] [place], [address] Chest 1 View (Portable)on Chest 1 View (Portable) [facility] Imaging Services [address] [place] [address] Chest 1 View (Portable) MR#: [id number] Acct: [id number] Name: KENYATTA CARRILLO Rep #: [id number] : 1960 F 64 From: Casey tapia MD PCP: Care Physician,No Primary Status: REG ER Study: Chest 1 View (Portable) Date of Exam: 10/02/24 Exam# [id number] Ordering Dr: Jose Rodriguez MD PROCEDURE: CHEST 1 VIEW (PORTABLE) 10/02/2024 REASON FOR EXAM: WEAKNESS, COUGH TECHNIQUE: Frontal view of the chest. COMPARISON: Prior study dated June 13, 2024. FINDINGS: Hardware: EKG electrodes are seen. Heart: The heart is not enlarged. Lungs: The lungs are clear. Calcified left hilar lymph nodes. Bones: Degenerative changes of both shoulder joints. Other: RAD/Chest 1 View (Portable) IMPRESSION: No Acute Findings. Reading Location: [place] [address] CC: Dr. Jose Rodriguez MD; No Primary Care Physician Lab Scientist: Signed Normal [facility] Comprehensive Metabolic Prof ilon 10-02-2024 Albumin [Mass/Vol] 3.1 g/dL Low 3.4-4.8 [facility] Comment on above: Performed By: #### L 501.5200, L500.4050, L100.0100 ####[facility] [address] [place], [address] Albumin/Globulin [Mass ratio] 0.8 {ratio} Low 0.9-2.4 [facility] Comment on above: Performed By: #### L 501.5200, L500.4050, L100.0100 ####[facility] [address] [place], [address] ALK PHOS 201 U/L High 35-104 [facility] Comment on above: Performed By: #### L 501.5200, L500.4050, L100.0100 ####[facility] [address] [place], [address] ALT [Catalytic activity/Vol] 35 U/L Normal <=34 [facility] Comment on above: Performed By: #### L 501.5200, L500.4050, L100.0100 ####[facility] [address] [place], [address] AST [Catalytic activity/Vol] 113 U/L High <=31 [facility] Comment on above: Performed By: #### L 501.5200, L500.4050, L100.0100 ####[facility] [address] [place], [address] Bilirubin [Mass/Vol] 0.94 mg/dL Normal 0.00-1.30 [facility] Comment on above: Performed By: #### L 501.5200, L500.4050, L100.0100 ####[facility] [address] [place], [address] BUN/CRE 8.1 RATIO Low 10-20 [facility] Comment on above: Performed By: #### L 501.5200, L500.4050, L100.0100 ####[facility] [address] [place], [address] Calcium [Mass/Vol] 8.6 mg/dL Normal 7.6-11.0 [facility] Comment on above: Performed By: #### L 501.5200, L500.4050, L100.0100 ####[facility] [address] [place], [address] Chloride [Moles/Vol] 93 mmol/L Low 98-108 [facility] Comment on above: Performed By: #### L 501.5200, L500.4050, L100.0100 ####[facility] [address] [place], [address] CO2 [Moles/Vol] 28.2 mmol/L Normal 21.0-32.0 [facility] Comment on above: Performed By: #### L 501.5200, L500.4050, L100.0100 ####[facility] [address] [place], [address] Creatinine [Mass/Vol] 0.61 mg/dL Low 0.70-1.20 [facility] Comment on above: Performed By: #### L 501.5200, L500.4050, L100.0100 ####[facility] [address] [place], [address] ECRCL 79.83 ml/min Normal 50-250 [facility] Comment on above: Performed By: #### L 501.5200, L500.4050, L100.0100 ####[facility] [address] [place], [address] GAP 14 Normal 5-15 [facility] Comment on above: Performed By: #### L 501.5200, L500.4050, L100.0100 ####[facility] [address] [place], [address] GFR/1.73 sq M.predicted among non-blacks MDRD (S/P/Bld) [Vol rate/Area] 98 mL/min/{1.73_m2} Normal >60 [facility] Comment on above: Result Comment: mL/m in/1.73m2 CKD-EPI Creatinine Equation (2020) Performed By: #### L 501.5200, L500.4050, L100.0100 ####[facility] [address] [place], [address] Globulin (S) [Mass/Vol] 3.9 g/dL Normal 2.2-4.2 [facility] Comment on above: Performed By: #### L 501.5200, L500.4050, L100.0100 ####[facility] [address] [place], [address] Glucose [Mass/Vol] 139 mg/dL High 70-99 [facility] Comment on above: Performed By: #### L 501.5200, L500.4050, L100.0100 ####[facility] [address] [place], [address] Potassium [Moles/Vol] 2.4 mmol/L Invalid Interpretation Code 3.3-5.1 [facility] Comment on above: Result Comment: Crit ical Result(s) Called at 1057: by: BELA RAJPUT TO [employer]. ??Results read back by same. Performed By: #### L 501.5200, L500.4050, L100.0100 ####[facility] [address] [place], [address] Sodium [Moles/Vol] 135 mmol/L Normal 133-145 [facility] Comment on above: Performed By: #### L 501.5200, L500.4050, L100.0100 ####[facility] [address] [place], [address] T PROT 7.0 g/dL Normal 5.9-8.4 [facility] Comment on above: Performed By: #### L 501.5200, L500.4050, L100.0100 ####[facility] [address] [place], [address] Urea nitrogen [Mass/Vol] 5 mg/dL Normal 4-19 [facility] Comment on above: Performed By: #### L 501.5200, L500.4050, L100.0100 ####[facility] [address] [place], [address] Emergency Department Summary on 10-02-2024 Emergency Department Summary [facility] Medical Records Department [address] [place] [address] Emergency Department Summary 10/02/24 MR#: [id number] Acct: [id number] Name: KENYATTA CARRILLO Rep #: [id number] : 1960 64 From: Jose Rodriguez MD PCP: Care Physician,No Primary Status:REG ER Location: ED HPI History of Present Illness Chief Complaint: Weakness Narrative Narrative: 64-year-old female presents with generalized weakness of her bilateral lower extremities that she has been experiencing over the last few days. She relates history that she was supposed to have an ultrasound performed but she had to cancel the appointment because she was so weak. She was supposed to get ready for the rescheduled ultrasound of her abdomen today, but she had to take a breather and she sat down on her rollator. Afterwards, she was unable to stand. She has chronic pain in her bilateral lower extremities but denies any recent swelling. She relates history that she had diarrhea for 2 days starting 3 days ago but that has resolved. She presents mainly because of the generalized weakness and inability to walk/difficulty standing. PFSH PFSH Medical History Cholelithiasis Anemia Migraines Difficulty walking Urge incontinence Acute cystitis with hematuria Muscle weakness Osteoarthritis Alcoholic hepatitis Alcoholic liver disease Acute respiratory failure with hypoxia Metabolic encephalopathy Major depression Protein calorie malnutrition Acute post-hemorrhagic anemia Dysphagia, oropharyngeal phase Malignant neoplasm of colon Ulcer Restless legs Injury of head and neck Anemia Alcohol abuse Bipolar disorder Hypothyroidism Osteoporosis Kidney stones GERD (gastroesophageal reflux disease) GI bleed Former smoker Home Medications ???Medication ???Instructions ???Recorded ???Last Taken ???Type calcium carbonate (Tums) 200 mg PO BID PRN dyspepsia Unknown History cholecalciferol (vitamin D3) 1,250 1,250 mcg PO 2XW 07/23/24 Unknow n History mcg (50,000 unit) capsule cyanocobalamin (vitamin B-12) 1,000 mcg IM QMONTH 07/23/24 Unkno wn History 1,000 mcg/mL injection solution folic acid 1 mg tablet 1 mg PO QDAY 07/23/24 Unknown Hist ory ipratropium 0.5 mg-albuterol 3 mg 3 ml inhalation Q4H PRN shortness 07/23/24 Unknown History (2.5 mg base)/3 mL nebulization of breath soln lidocaine 4 % topical gel 1 applic topical HS 07/23/24 Unkno wn History magnesium glycinate 100 mg (as 100 mg PO BID 07/23/24 Unknown His tory glycinate) tablet (Mag Glycinate) magnesium oxide 400 mg PO QDAY 07/23/24 Unknown Hi story thiamine HCl (vitamin B1) 100 mg 100 mg PO QDAY 07/23/24 Unknown Hi story tablet venlafaxine 37.5 mg 37.5 mg PO QDAY 07/23/24 Unknown H istory capsule,extended release 24 hr zinc oxide 20 % topical paste 1 ea topical Q8H PRN skin 07/23/24 Unknown History irritation ascorbic acid (vitamin C) 500 mg 500 mg PO BID #60 tabs 08/29/24 Un known Rx tablet ferrous sulfate 325 mg (65 mg 325 mg PO QODAY #30 tabs 08/29/24 Unknown Rx iron) tablet pantoprazole 40 mg tablet,delayed 40 mg PO BID GERD 30 days #60 tab s 08/29/24 Unknown Rx release Allergy/AdvReac Type Severity Reaction Status Date / Time amoxicillin Allergy Intermediate Swelling, Verified 10/02/24 09:57 itching Family History Mother Alcohol abuse CAD (coronary artery disease) Heart disease Hypertension Myocardial infarction Father Alcohol abuse Cancer Surgical History History of total knee arthroplasty History of right hip replacement H/O total hysterectomy Social History household members: none Smoking Status: Never smoker alcohol intake: current alcohol intake frequency: 3 or more drinks per day details: Notes binge drinking, whiskey. substance use type: other details: Former cannabis usage. Stopped 40 years ago. ROS ROS ED ROS Narrative Review of systems positive for generalized weakness, difficulty standing and walking. No fevers or chills, no nausea or vomiting. Recent diarrhea over the last few days, resolved. No abdominal pain. Chronic bilateral leg pain but no recent swelling. EXAM Physical Exam Narrative Exam Narrative: Afebrile. Vital signs noted. Nontoxic-appearing. Cardiovascular examination reveals a regular rate and rhythm. Lungs are clear to auscultation bilaterally. Abdomen is soft, nontender, with positive bowel sounds. No guarding or rebound. Neurological examination nonfocal, nonlateralizing. Able to flex and extend bilateral lower extremities at knees and hips. No noted pedal edema bilaterally, no erythema palpable dorsalis pedis pulse (more content not included)... Normal [facility] H AND P Exam - [facility]iston 10-02-2024 H&P Exam - Hospitalist [facility] Medical Records Department [address] [place] [address] H P Exam - Hospitalist 10/02/24 1514 MR#: [id number] Acct: [id number] Name: KENYATTA CARRILLO Rep #: [id number] : 1960 64 From: Fermin Calvo DO PCP: Care Physician,No Primary Status:ADM IN Location: [facility] [place] [address] HPI - General General Date of Admission: 10/02/24 Date of Service: 10/02/24 Chief Complaint: Generalized weakness HPI Narrative KENYATTA CARRILLO, is a 64 F who presents to the emergency room at [facility] with a chief complaint of generalized weakness, patient was alone and has nursing aides participate in her care. Patient admits to continued drinking but is vague about how much she drinks. Labs obtained in the emergency room showed her white blood cell count to be normal, hemoglobin was also normal, chemistry profile was abnormal for a potassium of 2.4 and a magnesium of 0.8. AST was elevated at 113 and alkaline phosphatase was 201. Patient has complained of diarrhea for the last several days. Chest x-ray showed no acute findings. Patient will be admitted to PCU and she will be given potassium replacement and magnesium replacement. Labs will be monitored. She will be seen by PT and OT [facility] Medical History Cholelithiasis Anemia Migraines Difficulty walking Urge incontinence Acute cystitis with hematuria Muscle weakness Osteoarthritis Alcoholic hepatitis Alcoholic liver disease Acute respiratory failure with hypoxia Metabolic encephalopathy Major depression Protein calorie malnutrition Acute post-hemorrhagic anemia Dysphagia, oropharyngeal phase Malignant neoplasm of colon Ulcer Restless legs Injury of head and neck Anemia Alcohol abuse Bipolar disorder Hypothyroidism Osteoporosis Kidney stones GERD (gastroesophageal reflux disease) GI bleed Former smoker Home Medications ???Medication ???Instructions ???Recorded ???Last Taken ???Type calcium carbonate (Tums) 200 mg PO BID PRN dyspepsia Unknown History cholecalciferol (vitamin D3) 1,250 1,250 mcg PO 2XW supplement 07/12 07/08 Unknown History mcg (50,000 unit) capsule cyanocobalamin (vitamin B-12) 1,000 mcg IM QMONTH 07/23/24 Unkno wn History 1,000 mcg/mL injection solution folic acid 1 mg tablet 1 mg PO QDAY 07/23/24 Unknown Hist ory ipratropium 0.5 mg-albuterol 3 mg 3 ml inhalation Q4H PRN shortness 07/23/24 Unknown History (2.5 mg base)/3 mL nebulization of breath soln lidocaine 4 % topical gel 1 applic topical HS 07/23/24 Unkno wn History magnesium glycinate 100 mg (as 100 mg PO BID 07/23/24 Unknown His tory glycinate) tablet (Mag Glycinate) magnesium oxide 400 mg PO QDAY 07/23/24 Unknown Hi story thiamine HCl (vitamin B1) 100 mg 100 mg PO QDAY 07/23/24 Unknown Hi story tablet venlafaxine 37.5 mg 37.5 mg PO QDAY 07/23/24 Unknown H istory capsule,extended release 24 hr zinc oxide 20 % topical paste 1 ea topical Q8H PRN skin 07/23/24 Unknown History irritation pantoprazole 40 mg tablet,delayed 40 mg PO BID GERD 30 days #60 tab s 08/29/24 Unknown Rx release Allergy/AdvReac Type Severity Reaction Status Date / Time amoxicillin Allergy Intermediate Swelling, Verified 10/02/24 09:57 itching Family History Mother Alcohol abuse CAD (coronary artery disease) Heart disease Hypertension Myocardial infarction Father Alcohol abuse Cancer Surgical History History of total knee arthroplasty History of right hip replacement H/O total hysterectomy Social History household members: none Smoking Status: Never smoker alcohol intake: current alcohol intake frequency: 3 or more drinks per day details: Notes binge drinking, whiskey. substance use type: other details: Former cannabis usage. Stopped 40 years ago. ROS Constitutional Constitutional: Reports fatigue and weakness; Denies anorexia, change in weight, fever(s) or night sweats Eyes Eyes: Denies blurry vision, change in vision, discharge from eye(s) or eye pain Cardiovascular Cardiovascular: Denies chest pain, claudication, dyspnea on exertion, edema or palpitations Respiratory/Chest Respiratory/Chest: Denies cough, dyspnea, hemoptysis, shortness of breath at rest or shortness of breath with exertion Gastrointestinal Gastrointestinal: Denies abdominal pain, constipation, diarrhea, hematemesis, hematochezia, melena, nausea or vomiting Genitourinary Genitourinary: Denies dysuria, hematuria, urinary frequency, urinary hesitancy, urinary incontinence or urinary urgency Musculoskeletal Musculoskeletal: Denies back pain, joint pain, joint stiffness, joint swelling, myalgi (more content not included)... Normal [facility] Magnesiumon 10-02-2024 Magnesium [Mass/Vol] 1.8 mg/dL Normal 1.5-2.2 [facility] Comment on above: Performed By: #### L 300.4310, L501.4020, M200.1000, L100.0100, L500.4050, L503.6005, L300.3900, L501.3620 #### [facility] [address] [place], [address] Magnesium [Mass/Vol] 0.8 mg/dL Invalid Interpretation Code 1.5-2.2 [facility] Comment on above: Result Comment: Crit ical Result(s) Called at 1057: by: BELA RAJPUT TO JOSTIN. ??Results read back by same. Performed By: #### L 501.5200, L500.4050, L100.0100 ####[facility] [address] [place], [address] Urinalysis, Completeon 10-02 RBC 0-5 SEEN Normal 0-5 [facility] Comment on above: Order Comment: COLOR OF URINE MAY AFFECT DIPSTICK RESULTS.CLEAN CATCH Performed By: #### L 400.0001 ####[facility] [address] [place], [address] BACTERIA 1+ /hpf Normal None Seen [facility] Comment on above: Order Comment: COLOR OF URINE MAY AFFECT DIPSTICK RESULTS.CLEAN CATCH Performed By: #### L 400.0001 ####[facility] [address] [place], [address] CAST,HYALINE 0-5 SEEN Normal 0-5 [facility] Comment on above: Order Comment: COLOR OF URINE MAY AFFECT DIPSTICK RESULTS.CLEAN CATCH Performed By: #### L 400.0001 ####[facility] [address] [place], [address] Mucus Ql (Urine sed) 2+ /hpf Normal [facility] Comment on above: Order Comment: COLOR OF URINE MAY AFFECT DIPSTICK RESULTS.CLEAN CATCH Performed By: #### L 400.0001 ####[facility] [address] [place], [address] WBC 0-5 SEEN Normal 0-5 [facility] Comment on above: Order Comment: COLOR OF URINE MAY AFFECT DIPSTICK RESULTS.CLEAN CATCH Performed By: #### L 400.0001 ####[facility] [address] [place], [address] EPI,SQUAMOUS 0 SEEN Normal 5-10 [facility] Comment on above: Order Comment: COLOR OF URINE MAY AFFECT DIPSTICK RESULTS.CLEAN CATCH Performed By: #### L 400.0001 ####[facility] [address] [place], [address] CBC W/Diff, Automatedon 04-1 Absolute Neut Normal 2.0-7.7 [facility] Comment on above: Result Comment: Canc elled via OM: Order cancelled - Patient discharged Performed By: #### L 503.5510, L503.6005 #### [facility] [address] [place], [address] HCT Normal 37-47 [facility] Comment on above: Result Comment: Canc elled via OM: Order cancelled - Patient discharged Performed By: #### L 503.5510, L503.6005 #### [facility] [address] [place], [address] HGB Normal 12.0-15.0 [facility] Comment on above: Result Comment: Canc elled via OM: Order cancelled - Patient discharged Performed By: #### L 503.5510, L503.6005 #### [facility] [address] [place], [address] MCH Normal 27.0-32.0 [facility] Comment on above: Result Comment: Canc elled via OM: Order cancelled - Patient discharged Performed By: #### L 503.5510, L503.6005 #### [facility] [address] [place], [address] MCHC Normal 32-36 [facility] Comment on above: Result Comment: Canc elled via OM: Order cancelled - Patient discharged Performed By: #### L 503.5510, L503.6005 #### [facility] [address] [place], [address] MCV Normal 81-99 [facility] Comment on above: Result Comment: Canc elled via OM: Order cancelled - Patient discharged Performed By: #### L 503.5510, L503.6005 #### [facility] [address] [place], [address] NEUT% Normal 47-70 [facility] Comment on above: Result Comment: Canc elled via OM: Order cancelled - Patient discharged Performed By: #### L 503.5510, L503.6005 #### [facility] [address] [place], [address] PLT Normal 150-450 [facility] Comment on above: Result Comment: Canc elled via OM: Order cancelled - Patient discharged Performed By: #### L 503.5510, L503.6005 #### [facility] [address] [place], [address] RBC Normal 4.2-5.4 [facility] Comment on above: Result Comment: Canc elled via OM: Order cancelled - Patient discharged Performed By: #### L 503.5510, L503.6005 #### [facility] [address] [place], [address] RDW CV Normal 11.6-14.6 [facility] Comment on above: Result Comment: Canc elled via OM: Order cancelled - Patient discharged Performed By: #### L 503.5510, L503.6005 #### [facility] [address] [place], [address] RDW SD Normal 35.1-43.9 [facility] Comment on above: Result Comment: Canc elled via OM: Order cancelled - Patient discharged Performed By: #### L 503.5510, L503.6005 #### [facility] [address] [place], [address] WBC Normal 4.4-11.0 [facility] Comment on above: Result Comment: Canc elled via OM: Order cancelled - Patient discharged Performed By: #### L 503.5510, L503.6005 #### [facility] [address] [place], [address] Liver Profileon 08-30-2024 ALB Normal 3.4-4.8 [facility] Comment on above: Result Comment: Canc elled via OM: Order cancelled - Patient discharged Performed By: #### L 503.5510, L503.6005 #### [facility] [address] [place], [address] ALK PHOS Normal 35-104 [facility] Comment on above: Result Comment: Canc elled via OM: Order cancelled - Patient discharged Performed By: #### L 503.5510, L503.6005 #### [facility] [address] [place], [address] ALT Normal <=34 [facility] Comment on above: Result Comment: Canc elled via OM: Order cancelled - Patient discharged Performed By: #### L 503.5510, L503.6005 #### [facility] [address] [place], [address] AST Normal <=31 [facility] Comment on above: Result Comment: Canc elled via OM: Order cancelled - Patient discharged Performed By: #### L 503.5510, L503.6005 #### [facility] [address] [place], [address] D BILI Normal 0.00-0.30 [facility] Comment on above: Result Comment: Canc elled via OM: Order cancelled - Patient discharged Performed By: #### L 503.5510, L503.6005 #### [facility] [address] [place], [address] T BILI Normal 0.00-1.30 [facility] Comment on above: Result Comment: Canc elled via OM: Order cancelled - Patient discharged Performed By: #### L 503.5510, L503.6005 #### [facility] [address] [place], [address] T PROT Normal 5.9-8.4 [facility] Comment on above: Result Comment: Canc elled via OM: Order cancelled - Patient discharged Performed By: #### L 503.5510, L503.6005 #### [facility] [address] [place], [address] Absolute neutrophil countOrd ered By: Deven Porter on 08-29-2024 Neutrophils (Bld) [#/Vol] 1.7 10*3/uL Low 2.0-7.7 [facility] Anion gap in Serum or Plasma Ordered By: Deven Porter on 08-29-2024 Anion gap [Moles/Vol] 12 mmol/L 5-15 [facility] BUN/creatinine ratioOrdered By: Deven Porter on 08-29-2024 Urea nitrogen/Creatinine [Mass ratio] 7.9 mg/mg Low 10-20 [facility] Basic Metabolic Profile (BMP )on 08-29-2024 BUN/CRE 7.9 RATIO Low - [facility] Comment on above: Performed By: #### L 503.5510, L503.6005 #### [facility] [address] [place], [address] Calcium [Mass/Vol] 8.5 mg/dL Normal 7.6-11.0 [facility] Comment on above: Performed By: #### L 503.5510, L503.6005 #### [facility] [address] [place], [address] Chloride [Moles/Vol] 102 mmol/L Normal 98-108 [facility] Comment on above: Performed By: #### L 503.5510, L503.6005 #### [facility] [address] [place], [address] CO2 [Moles/Vol] 22.5 mmol/L Normal 21.0-32.0 [facility] Comment on above: Performed By: #### L 503.5510, L503.6005 #### [facility] [address] [place], [address] Creatinine [Mass/Vol] 0.65 mg/dL Low 0.70-1.20 [facility] Comment on above: Performed By: #### L 503.5510, L503.6005 #### [facility] [address] [place], [address] ECRCL 88.17 ml/min Normal 50-250 [facility] Comment on above: Performed By: #### L 503.5510, L503.6005 #### [facility] [address] [place], [address] GAP 12 Normal 5-15 [facility] Comment on above: Performed By: #### L 503.5510, L503.6005 #### [facility] [address] [place], [address] GFR/1.73 sq M.predicted among non-blacks MDRD (S/P/Bld) [Vol rate/Area] 98 mL/min/{1.73_m2} Normal >60 [facility] Comment on above: Result Comment: mL/m in/1.73m2 CKD-EPI Creatinine Equation (2020) Performed By: #### L 503.5510, L503.6005 #### [facility] [address] [place], [address] Glucose [Mass/Vol] 83 mg/dL Normal 70-99 [facility] Comment on above: Performed By: #### L 503.5510, L503.6005 #### [facility] [address] [place], [address] Potassium [Moles/Vol] 3.6 mmol/L Normal 3.3-5.1 [facility] Comment on above: Result Comment: Hemo lysis present, Results??could be affected. ?? Performed By: #### L 503.5510, L503.6005 #### [facility] [address] [place], [address] Sodium [Moles/Vol] 136 mmol/L Normal 133-145 [facility] Comment on above: Performed By: #### L 503.5510, L503.6005 #### [facility] [address] [place], [address] Urea nitrogen [Mass/Vol] 5 mg/dL Normal 4-19 [facility] Comment on above: Performed By: #### L 503.5510, L503.6005 #### [facility] [address] [place], [address] Basophil percentageOrdered B y: Deven Porter on 08-29-2024 Basophils/100 WBC (Bld) 0.5 % 0-1 [facility] Bilirubin directOrdered By: Deven Porter on 08-29-2024 Bilirubin.direct [Mass/Vol] 0.18 mg/dL 0.00-0.30 [facility] Bilirubin, totalOrdered By: Deven Porter on 08-29-2024 Bilirubin [Mass/Vol] 0.42 mg/dL 0.00-1.30 [facility] CBC W/Diff, Automatedon 08-12 Absolute Lymph 1.62 X10 3/uL Normal 0.83-4.51 [facility] Comment on above: Performed By: #### L 503.5510, L503.6005 #### [facility] [address] [place], [address] Absolute Neut 1.7 X10 3/uL Low 2.0-7.7 [facility] Comment on above: Performed By: #### L 503.5510, L503.6005 #### [facility] [address] [place], [address] Basophils/100 WBC (Bld) 0.5 % Normal 0-1 [facility] Comment on above: Performed By: #### L 503.5510, L503.6005 #### [facility] [address] [place], [address] Eosinophils/100 WBC (Bld) 2.8 % Normal 0-5 [facility] Comment on above: Performed By: #### L 503.5510, L503.6005 #### [facility] [address] [place], [address] Erythrocyte distribution width (RBC) [Ratio] 14.3 % Normal 11.6-14.6 [facility] Comment on above: Performed By: #### L 503.5510, L503.6005 #### [facility] [address] [place], [address] Hematocrit (Bld) [Volume fraction] 32.8 % Low 37-47 [facility] Comment on above: Performed By: #### L 503.5510, L503.6005 #### [facility] [address] [place], [address] Hemoglobin (Bld) [Mass/Vol] 10.7 g/dL Low 12.0-15.0 [facility] Comment on above: Performed By: #### L 503.5510, L503.6005 #### [facility] [address] [place], [address] IG% 0.300 Normal 0.0-0.9 [facility] Comment on above: Result Comment: IG% - Immature Granulocytes (promyelocytes, myelocytes and metamyelocytes) > 1% indicates that a LEFT SHIFT is Present. Performed By: #### L 503.5510, L503.6005 #### [facility] [address] [place], [address] Lymphocytes/100 WBC (Bld) 41.9 % High 19-41 [facility] Comment on above: Performed By: #### L 503.5510, L503.6005 #### [facility] [address] [place], [address] MCH (RBC) [Entitic mass] 30.0 pg Normal 27.0-32.0 [facility] Comment on above: Performed By: #### L 503.5510, L503.6005 #### [facility] [address] [place], [address] MCHC (RBC) [Mass/Vol] 32.6 g/dL Normal 32-36 [facility] Comment on above: Performed By: #### L 503.5510, L503.6005 #### [facility] [address] [place], [address] MCV (RBC) [Entitic vol] 91.9 fL Normal 81-99 [facility] Comment on above: Performed By: #### L 503.5510, L503.6005 #### [facility] [address] [place], [address] Monocytes/100 WBC (Bld) 10.3 % High 0-10 [facility] Comment on above: Performed By: #### L 503.5510, L503.6005 #### [facility] [address] [place], [address] Neutrophils/100 WBC (Bld) 44.2 % Low 47-70 [facility] Comment on above: Performed By: #### L 503.5510, L503.6005 #### [facility] [address] [place], [address] Nucleated RBC (Bld) [#/Vol] 0 10*3/uL Normal 0-5 [facility] Comment on above: Performed By: #### L 503.5510, L503.6005 #### [facility] [address] [place], [address] Platelet mean volume (Bld) [Entitic vol] 9.4 fL Normal 6.2-12.0 [facility] Comment on above: Performed By: #### L 503.5510, L503.6005 #### [facility] [address] [place], [address] Platelets (Bld) [#/Vol] 205 10*3/uL Normal 150-450 [facility] Comment on above: Performed By: #### L 503.5510, L503.6005 #### [facility] [address] [place], [address] RBC (Bld) [#/Vol] 3.57 10*6/uL Low 4.2-5.4 [facility] Comment on above: Performed By: #### L 503.5510, L503.6005 #### [facility] [address] [place], [address] RDW SD 48.5 fl High 35.1-43.9 [facility] Comment on above: Performed By: #### L 503.5510, L503.6005 #### [facility] [address] [place], [address] WBC (Bld) [#/Vol] 3.9 10*3/uL Low 4.4-11.0 [facility] Comment on above: Performed By: #### L 503.5510, L503.6005 #### [facility] [address] [place], [address] Carbon dioxide, total [Moles /volume] in Central venous bloodOrdered By: Deven Porter on 08-29-2024 CO2 [Moles/Vol] 22.5 mmol/L 21.0-32.0 [facility] Chloride assayOrdered By: Ricky Porter on 08-29-2024 Chloride [Moles/Vol] 102 mmol/L 98-108 [facility] Discharge Instructionon 08-12 Discharge Instruction [facility] Medical Records Department [address] [place] [address] Instructions for Home/Discharge Instructions 08/29/24 1104 MR#: [id number] Acct: [id number] Name: KENYATTA CARRILLO Rep #: [id number] : 1960 63 From: Jerry Lopez MD PCP: Dr. Naye Sheets MD Status:ADM IN Discharge Instructions Diet Discharge Diet: Light diet - advance as tolerated DC O2, CPAP, BIPAP needs Home O2 Discharge instructions: No Dressing / Incision Discharge Activity: Return to Normal Activity and May Not Drive Weight Bearing Status: Weight bearing as tolerated Dressing / Incision Call your doctor if you observe: Fever of 101 or Higher, Coldness, Increased Pain, Numbness or Tingling, Change in Color, Inability to urinate, Inability to have a bowel movement, Using more than 1 pad per hour, Shortness of breath, Dizziness, Fainting spells, Swelling in the ankles, Chest pain, Prolonged hiccupping, Increased palpitations (irregular heartbeat) and Calf discomfort Follow Up Care When: IN 2 WEEKS Test Results: Test results from this visit will be discussed in further detail at your follow-up appointment, if applicable. Discharge Plan Admission Admit Date/Time: 08/26/24 18:33 Primary Reason for Your Visit: Severe erosive esophagitis with bleeding. Large hiatus hernia. Attending Provider: Jerry Lopez Primary Care Provider: Naye Sheets Consulting Providers: Tiff Ramires; Deven Porter Discharge Orders/Prescriptions Prescriptions: Continued cyanocobalamin (vitamin B-12) 1,000 mcg/mL solution 1,000 mcg IM QMONTH folic acid 1 mg tablet 1 mg PO QDAY ipratropium-albuterol 0.5 mg-3 mg(2.5 mg base)/3 mL solution for nebulization 3 ml inhalation Q4H PRN (Reason: shortness of breath) lidocaine 4 % gel 1 applic topical HS Mag Glycinate 100 mg tablet 100 mg PO BID magnesium oxide 400 mg magnesium tablet 400 mg PO QDAY thiamine HCl (vitamin B1) 100 mg tablet 100 mg PO QDAY calcium carbonate [Tums] 200 mg calcium (500 mg) tablet,chewable 200 mg PO BID PRN (Reason: dyspepsia) venlafaxine 37.5 mg capsule,extended release 24hr 37.5 mg PO QDAY cholecalciferol (vitamin D3) 1,250 mcg (50,000 unit) capsule 1,250 mcg PO 2XW zinc oxide 20 % paste 1 ea topical Q8H PRN (Reason: skin irritation) pantoprazole 40 mg tablet,delayed release (DR/EC) 40 mg PO BID 30 Days Qty: 60 2RF Discontinued prednisone 50 mg tablet 50 mg PO QDAY Referrals / Follow Up: Naye Sheets MD [Primary Care Provider] - Neelam Conklin PA [Med Staff - Adv Practice Prof] - Within 1 Month Disposition Disposition (needs filled in before D/C Order can be placed): Home, Self Care 08/29/24 1209 Jerry Lopez MD CC: Dr. Tiff Ramires MD; Dr. Deven Porter MD; Dr. Naye Sheets MD Signed Normal [facility] Electrocardiogram reportOrde red By: Jose Hsieh on 08-29-2024 EKG study [facility] [address] [place] [address] 12 Lead EKG 08/28/24 0518 MR#: [id number] Acct: [id number] Name: KENYATTA CARRILLO Rep #:[id number] : 1960 63 From: Jose martínez MD Attending Dr: Dr. Jerry Lopez MD Status: ADM IN Ordering Dr: Lefty Garcia MD Date: 08/12 12/05 [place] [facility] [place] F C Admitted: 08/26/24 Test Reason : PRE-OP Blood Pressure : */* mmHG Vent. Rate : 83 BPM Atrial Rate : 83 BPM P-R Int : 164 ms QRS Dur : 74 ms QT Int : 390 ms P-R-T Axes : 75 49 75 degrees QTcB Int : 458 ms Normal sinus rhythm Low voltage QRS Borderline ECG When compared with ECG of 13-Jun-2024 17:10, Borderline criteria for Inferior infarct are no longer Present T wave inversion no longer evident in Lateral leads QT has shortened Confirmed by Jose Hsieh ([id number]), map editor QUE POLANCO ([id number]) on 57:07:33 AM Referred By: Confirmed By: Jose Hsieh 08/29/24 0707 Date _ Jose Hsieh MD CC: Dr. Lefty Garcia MD; Dr. Jerry Lopez MD; Dr. Naye Sheets MD ~ Signed [facility] Other Phone: Eosinophil percentageOrdered By: Deven Porter on 08-29-2024 Eosinophils/100 WBC (Bld) 2.8 % 0-5 [facility] Erythrocyte distribution wid th (RBC) [Ratio]Ordered By: Deven Porter on 08-29-2024 Erythrocyte distribution width (RBC) [Entitic vol] 48.5 fL High 35.1-43.9 [facility] Erythrocyte distribution wid th ratioOrdered By: Deven Porter on 08-29-2024 Erythrocyte distribution width (RBC) [Ratio] 14.3 % 11.6-14.6 [facility] Estimation of creatinine dilcia aranceOrdered By: Deven Porter on 08-29-2024 Estimated Creatinine Clearance Calc 88.17 ml/min 50-250 [facility] GFR/1.73 sq M.predicted arnel g non-blacks MDRD (S/P/Bld) [Vol rate/Area]Ordered By: Deven Porter on 08-29-2024 Estimated GFR (MDRD) Non-Af Amer 98 >60 [facility] Comment on above: mL/min/1.73m2 CKD-EP I Creatinine Equation (2020) Hematocrit Auto (Bld) [Volum e fraction]Ordered By: Deven Porter on 08-29-2024 Hematocrit (Bld) [Volume fraction] 32.8 % Low 37-47 [facility] Hemoglobin measurementOrdere d By: Deven Porter on 08-29-2024 Hemoglobin (Bld) [Mass/Vol] 10.7 g/dL Low 12.0-15.0 [facility] Immature granulocytes/100 WB C Auto (Bld)Ordered By: Deven Porter on 08-29-2024 Immature granulocytes/100 WBC (Bld) 0.300 % 0.0-0.9 [facility] Comment on above: IG% - Immature Granu locytes (promyelocytes, myelocytes and metamyelocytes) > 1% indicates that a LEFT SHIFT is Present. Laboratory - Chemistry and C hemistry - challengeOrdered By: Deven Porter on 08-29-2024 AST [Catalytic activity/Vol] 32 U/L <32 [facility] Liver Profileon 08-29-2024 Albumin [Mass/Vol] 2.8 g/dL Low 3.4-4.8 [facility] Comment on above: Performed By: #### L 503.5510, L503.6005 #### [facility] [address] [place], [place], [address] ALK PHOS 134 U/L High 35-104 [facility] Comment on above: Performed By: #### L 503.5510, L503.6005 #### [facility] [address] [place], [address] ALT [Catalytic activity/Vol] 15 U/L Normal <=34 [facility] Comment on above: Performed By: #### L 503.5510, L503.6005 #### [facility] [address] [place], [address] AST [Catalytic activity/Vol] 32 U/L Normal <=31 [facility] Comment on above: Performed By: #### L 503.5510, L503.6005 #### [facility] [address] [place], [address] Bilirubin [Mass/Vol] 0.42 mg/dL Normal 0.00-1.30 [facility] Comment on above: Performed By: #### L 503.5510, L503.6005 #### [facility] [address] [place], [address] Bilirubin.direct [Mass/Vol] 0.18 mg/dL Normal 0.00-0.30 [facility] Comment on above: Performed By: #### L 503.5510, L503.6005 #### [facility] [address] [place], [address] Globulin (S) [Mass/Vol] 3.0 g/dL Normal 2.2-4.2 [facility] Comment on above: Performed By: #### L 503.5510, L503.6005 #### [facility] [address] [place], [address] T PROT 5.8 g/dL Low 5.9-8.4 [facility] Comment on above: Performed By: #### L 503.5510, L503.6005 #### [facility] [address] [place], [address] Lymphocytes Auto (Unsp spec) [#/Vol]Ordered By: Deven Porter on 08-29-2024 Lymphocytes (Bld) [#/Vol] 1.62 10*3/uL 0.83-4.51 [facility] Lymphocytes/100 WBC Auto (Un sp spec)Ordered By: Deven Porter on 08-29-2024 Lymphocytes/100 WBC (Bld) 41.9 % High 19-41 [facility] MCV (mean corpuscular volume ) determinationOrdered By: Deven Porter on 08-29-2024 MCV (RBC) [Entitic vol] 91.9 fL 81-99 [facility] Mean corpuscular hemoglobin (MCH) determinationOrdered By: Deven Porter on 08-29-2024 MCH (RBC) [Entitic mass] 30.0 pg 27.0-32.0 [facility] Mean corpuscular hemoglobin concentration (MCHC) determinationOrdered By: Deven Porter on 08-29-2024 MCHC (RBC) [Mass/Vol] 32.6 g/dL 32-36 [facility] Mean platelet volume determi nationOrdered By: Deven Porter on 08-29-2024 Platelet mean volume (Bld) [Entitic vol] 9.4 fL 6.2-12.0 [facility] Monocyte percentageOrdered B y: Deven Porter on 08-29-2024 Monocytes/100 WBC (Bld) 10.3 % High 0-10 [facility] Neutrophil percentageOrdered By: Deven Porter on 08-29-2024 Neutrophils/100 WBC (Bld) 44.2 % Low 47-70 [facility] Nucleated red blood cell per centageOrdered By: Deven Porter on 08-29-2024 Nucleated RBC/100 WBC (Bld) [Ratio] 0 % 0-5 [facility] Platelet countOrdered By: Ricky Porter on 08-29-2024 Platelets (Bld) [#/Vol] 205 10*3/uL 150-450 [facility] Potassium (Unsp spec) [Mass/ Vol]Ordered By: Deven Porter on 08-29-2024 Potassium [Moles/Vol] 3.6 mmol/L 3.3-5.1 [facility] Comment on above: Hemolysis present, R esults could be affected. RBC Auto (Bld) [#/Vol]Ordere d By: Deven Porter on 08-29-2024 RBC (Bld) [#/Vol] 3.57 10*6/uL Low 4.2-5.4 [facility] Serum creatinine measurement (mass/volume)Ordered By: Deven Porter on 08-29-2024 Creatinine [Mass/Vol] 0.65 mg/dL Low 0.70-1.20 [facility] Serum globulin measurementOr dered By: Deven Porter on 08-29-2024 Globulin (S) [Mass/Vol] 3.0 g/dL 2.2-4.2 [facility] Serum glucose measurement (m ass/volume)Ordered By: Deven Porter on 08-29-2024 Glucose [Mass/Vol] 83 mg/dL 70-99 [facility] Serum or plasma alanine araiza otransferase (ALT) measurementOrdered By: Deven Porter on 08-29-2024 ALT [Catalytic activity/Vol] 15 U/L <35 [facility] Serum or plasma albumin abida urement (mass/volume)Ordered By: Deven Porter on 08-29-2024 Albumin [Mass/Vol] 2.8 g/dL Low 3.4-4.8 [facility] Serum or plasma alkaline desi sphatase measurementOrdered By: Deven Porter on 08-29-2024 ALP [Catalytic activity/Vol] 134 U/L High 35-104 [facility] Serum or plasma calcium abida urement (mass/volume)Ordered By: Deven Porter on 08-29-2024 Calcium [Mass/Vol] 8.5 mg/dL 7.6-11.0 [facility] Serum or plasma urea nitroge n measurement (mass/volume)Ordered By: Deven Porter on 08-29-2024 Urea nitrogen [Mass/Vol] 5 mg/dL 4-19 [facility] Sodium levelOrdered By: Benedict Porter on 08-29-2024 Sodium [Moles/Vol] 136 mmol/L 133-145 [facility] Total proteinOrdered By: Severo Porter on 08-29-2024 Protein [Mass/Vol] 5.8 g/dL Low 5.9-8.4 [facility] White blood cell (WBC) count Ordered By: Deven Porter on 08-29-2024 WBC (Bld) [#/Vol] 3.9 10*3/uL Low 4.4-11.0 [facility] 12 Lead EKGon 08-28-2024 12 Lead EKG [facility] Cardiovascular Services [address] [place] [address] 12 Lead EKG 08/28/24 0518 MR#: [id number] Acct: [id number] Name: KENYATTA CARRILLO Rep #: [id number] : 1960 63 From: Jose Hsieh MD Attending Dr: Dr. Jerry Lopez MD Status: ADM IN Ordering Dr: Lefty Garcia MD Date: 08/28/24 [place] [facility] [place] F C Admitted: 08/26/24 Test Reason : PRE-OP Blood Pressure : */* mmHG Vent. Rate : 83 BPM Atrial Rate : 83 BPM P-R Int : 164 ms QRS Dur : 74 ms QT Int : 390 ms P-R-T Axes : 75 49 75 degrees QTcB Int : 458 ms Normal sinus rhythm Low voltage QRS Borderline ECG When compared with ECG of 13-Jun-2024 17:10, Borderline criteria for Inferior infarct are no longer Present T wave inversion no longer evident in Lateral leads QT has shortened Confirmed by Jose Hsieh ([id number]), map editor QUE POLANCO ([id number]) on 08/29/2024 7:07:33 AM Referred By: Confirmed By: Jose Hsieh 08/29/24 0707 Date Jose Hsieh MD CC: Dr. Lefty Garcia MD; Dr. Jerry Lopez MD; Dr. Naye Sheets MD Signed Normal [facility] Abdomen Limitedon 08-28-2024 Abdomen Limited [facility] Imaging Services [address] [place] [address] Abdomen Limited MR#: [id number] Acct: [id number] Name: KENYATTA CARRILLO Rep #: [id number] : 1960 F 63 From: Helena crockett MD PCP: Dr. Naye Sheets MD Status: ADM IN Study: Abdomen Limited Date of Exam: 08/28/24 Exam# [id number] Ordering Dr: Deven Porter MD PROCEDURE: ABDOMEN LIMITED 08/28/2024 REASON FOR EXAM: GALLSTONES TECHNIQUE: Complete abdominal ultrasound perez-scale images with color doppler. PATIENT PREPARATION: Per protocol COMPARISON: CT scan on 08/26/2024. FINDINGS: Hepatomegaly measuring 18.9 cm. Diffuse increased hepatic echogenicity suggestive of hepatic steatosis. Unremarkable hepatopetal flow in the main portal vein. The gallbladder measures 6 cm in its length. Multiple gallstones are noted without evidence of acute cholecystitis. Negative sonographic Lyman. No pericholecystic free fluid is noted. Unremarkable visualized pancreas. Limited evaluation of the pancreas secondary to overlying bowel gas. Normal gallbladder wall thickness measuring 3 mm. The common bile duct diameter measures 4 mm. Unremarkable right kidney measuring 10.9 x 4.8 x 4.8 cm. Normal right renal cortical thickness measuring 1 cm. US/Abdomen Limited IMPRESSION: 1. Hepatomegaly. 2. Hepatic steatosis. 3. Cholelithiasis without acute cholecystitis. 4. Nondilated biliary tree. 5. Limited evaluation of the pancreas secondary to overlying bowel gas. Reading Location: [place] [address] CC: Dr. Deven Porter MD; Dr. Naye Sheets MD Lab Scientist: Signed Normal [facility] Basic Metabolic Profile (BMP )on 08-28-2024 BUN/CRE 6.8 RATIO Low 10-20 [facility] Comment on above: Performed By: #### L 503.5510, L583.6003 #### [facility] [address] [place], [address] Calcium [Mass/Vol] 8.7 mg/dL Normal 7.6-11.0 [facility] Comment on above: Performed By: #### L 503.5510, L503.6004 #### [facility] [address] [place], [address] Chloride [Moles/Vol] 105 mmol/L Normal 98-108 [facility] Comment on above: Performed By: #### L 503.5510, L503.6005 #### [facility] [address] [place], [address] CO2 [Moles/Vol] 24.2 mmol/L Normal 21.0-32.0 [facility] Comment on above: Performed By: #### L 503.5510, L503.6005 #### [facility] [address] [place], [address] Creatinine [Mass/Vol] 0.62 mg/dL Low 0.70-1.20 [facility] Comment on above: Performed By: #### L 503.5510, L503.6005 #### [facility] [address] [place], [address] ECRCL 88.12 ml/min Normal 50-250 [facility] Comment on above: Performed By: #### L 503.5510, L503.6005 #### [facility] [address] [place], [address] GAP 11 Normal 5-15 [facility] Comment on above: Performed By: #### L 503.5510, L503.6005 #### [facility] [address] [place], [address] GFR/1.73 sq M.predicted among non-blacks MDRD (S/P/Bld) [Vol rate/Area] 99 mL/min/{1.73_m2} Normal >60 [facility] Comment on above: Result Comment: mL/m in/1.73m2 CKD-EPI Creatinine Equation (2020) Performed By: #### L 503.5510, L503.6005 #### [facility] [address] [place], [address] Glucose [Mass/Vol] 97 mg/dL Normal 70-99 [facility] Comment on above: Performed By: #### L 503.5510, L503.6005 #### [facility] [address] [place], [address] Potassium [Moles/Vol] 3.4 mmol/L Normal 3.3-5.1 [facility] Comment on above: Performed By: #### L 503.5510, L503.6005 #### [facility] [address] [place], [address] Sodium [Moles/Vol] 139 mmol/L Normal 133-145 [facility] Comment on above: Performed By: #### L 503.5510, L503.6005 #### [facility] [address] [place], [address] Urea nitrogen [Mass/Vol] 4 mg/dL Normal 4-19 [facility] Comment on above: Performed By: #### L 503.5510, L503.6005 #### [facility] [address] [place], [address] CBC W/Diff, Automatedon 04- Absolute Lymph 1.72 X10 3/uL Normal 0.83-4.51 [facility] Comment on above: Performed By: #### L 503.5510, L503.6005 #### [facility] [address] [place], [address] Absolute Neut 1.7 X10 3/uL Low 2.0-7.7 [facility] Comment on above: Performed By: #### L 503.5510, L503.6005 #### [facility] [address] [place], [address] Basophils/100 WBC (Bld) 0.3 % Normal 0-1 [facility] Comment on above: Performed By: #### L 503.5510, L503.6005 #### [facility] [address] [place], [address] Eosinophils/100 WBC (Bld) 2.5 % Normal 0-5 [facility] Comment on above: Performed By: #### L 503.5510, L503.6005 #### [facility] [address] [place], [address] Erythrocyte distribution width (RBC) [Ratio] 14.3 % Normal 11.6-14.6 [facility] Comment on above: Performed By: #### L 503.5510, L503.6005 #### [facility] [address] [place], [address] Hematocrit (Bld) [Volume fraction] 32.2 % Low 37-47 [facility] Comment on above: Performed By: #### L 503.5510, L503.6005 #### [facility] [address] [place], [address] Hemoglobin (Bld) [Mass/Vol] 10.6 g/dL Low 12.0-15.0 [facility] Comment on above: Performed By: #### L 503.5510, L503.6005 #### [facility] [address] [place], [address] IG% 0.000 Normal 0.0-0.9 [facility] Comment on above: Result Comment: IG% - Immature Granulocytes (promyelocytes, myelocytes and metamyelocytes) > 1% indicates that a LEFT SHIFT is Present. Performed By: #### L 503.5510, L503.6005 #### [facility] [address] [place], [address] Lymphocytes/100 WBC (Bld) 43.7 % High 19-41 [facility] Comment on above: Performed By: #### L 503.5510, L503.6005 #### [facility] [address] [place], [address] MCH (RBC) [Entitic mass] 30.1 pg Normal 27.0-32.0 [facility] Comment on above: Performed By: #### L 503.5510, L503.6005 #### [facility] [address] [place], [address] MCHC (RBC) [Mass/Vol] 32.9 g/dL Normal 32-36 [facility] Comment on above: Performed By: #### L 503.5510, L503.6005 #### [facility] [address] [place], [address] MCV (RBC) [Entitic vol] 91.5 fL Normal 81-99 [facility] Comment on above: Performed By: #### L 503.5510, L503.6005 #### [facility] [address] [place], [address] Monocytes/100 WBC (Bld) 9.6 % Normal 0-10 [facility] Comment on above: Performed By: #### L 503.5510, L503.6005 #### [facility] [address] [place], [address] Neutrophils/100 WBC (Bld) 43.9 % Low 47-70 [facility] Comment on above: Performed By: #### L 503.5510, L503.6005 #### [facility] [address] [place], [address] Nucleated RBC (Bld) [#/Vol] 0 10*3/uL Normal 0-5 [facility] Comment on above: Performed By: #### L 503.5510, L503.6005 #### [facility] [address] [place], [address] Platelet mean volume (Bld) [Entitic vol] 9.3 fL Normal 6.2-12.0 [facility] Comment on above: Performed By: #### L 503.5510, L503.6005 #### [facility] [address] [place], [address] Platelets (Bld) [#/Vol] 231 10*3/uL Normal 150-450 [facility] Comment on above: Performed By: #### L 503.5510, L503.6005 #### [facility] [address] [place], [address] RBC (Bld) [#/Vol] 3.52 10*6/uL Low 4.2-5.4 [facility] Comment on above: Performed By: #### L 503.5510, L503.6005 #### [facility] [address] [place], [address] RDW SD 47.2 fl High 35.1-43.9 [facility] Comment on above: Performed By: #### L 503.5510, L503.6005 #### [facility] [address] [place], [address] WBC (Bld) [#/Vol] 3.9 10*3/uL Low 4.4-11.0 [facility] Comment on above: Performed By: #### L 503.5510, L503.6005 #### [facility] [address] [place], [address] EGD Reporton 08-28-2024 EGD Report [facility] Medical Records Department [address] [place] [address] EGD Report MR#: [id number] Acct: [id number] Name: KENYATTA CARRILLO Rep #: [id number] : 1960 63 From: Troy Friend DO PCP: Dr. Naye Sheets MD Status:ADM IN Patient Name: Kenyatta Carrillo Procedure Date: 08/28/2024 1:04 PM Date of : 1960 Age: 63 Procedure: Upper GI endoscopy Indications: Hematemesis, Melena, Suspected upper gastrointestinal bleeding Providers: Troy Self DO Medicines: Monitored Anesthesia Care Patient Profile: This is a 63 year old female. Refer to note in patient chart for documentation of history and physical. Patient has symptoms of dysphagia with solids, acute nausea, acute throat burning and acute vomiting. Complications: No immediate complications. Procedure: Pre-Anesthesia Assessment: - Prior to the procedure, a History and Physical was performed, and patient medications and allergies were reviewed. The patient is competent. The risks and benefits of the procedure and the sedation options and risks were discussed with the patient. All questions were answered and informed consent was obtained. Patient identification and proposed procedure were verified by the physician in the pre-procedure area. Mental Status Examination: alert and oriented. Airway Examination: normal oropharyngeal airway and neck mobility. Respiratory Examination: clear to auscultation. CV Examination: normal. Prophylactic Antibiotics: The patient does not require prophylactic antibiotics. Prior Anticoagulants: The patient has taken no anticoagulant or antiplatelet agents. ASA Grade Assessment: II - A patient with mild systemic disease. After reviewing the risks and benefits, the patient was deemed in satisfactory condition to undergo the procedure. The anesthesia plan was to use monitored anesthesia care (MAC). Immediately prior to administration of medications, the patient was re-assessed for adequacy to receive sedatives. The heart rate, respiratory rate, oxygen saturations, blood pressure, adequacy of pulmonary ventilation, and response to care were monitored throughout the procedure. The physical status of the patient was re-assessed after the procedure. After obtaining informed consent, the endoscope was passed under direct vision. Throughout the procedure, the patient's blood pressure, pulse, and oxygen saturations were monitored continuously. The gastroscope was introduced through the mouth, and advanced to the fourth part of the duodenum. Small bowel enteroscopy was deemed necessary. The Endoscope was introduced through the and advanced to the. The upper GI endoscopy was accomplished without difficulty. The patient tolerated the procedure well. Scope In: 2:40:53 PM Scope Out: 2:45:09 PM Total Procedure Duration Time 0 hours 4 minutes 16 seconds Findings: LA Grade D (one or more mucosal breaks involving at least 75% of esophageal circumference) esophagitis with bleeding was found 31 to 40 cm from the incisors. Biopsies were taken with a cold forceps for histology. Verification of patient identification for the specimen was done. Estimated blood loss was minimal. A large hiatal hernia was present. Diffuse moderate inflammation characterized by congestion (edema), erosions and erythema was found in the duodenal bulb. Impression: - LA Grade D erosive esophagitis with bleeding. Biopsied. - Large hiatal hernia. - Acute duodenitis. Recommendation: - [facility]. - Full liquid diet today. - Continue present medications. - Await pathology results. - Repeat upper endoscopy to check healing. Procedure Code(s): --- Professional --- 63217, Small intestinal endoscopy, enteroscopy beyond second portion of duodenum, not including ileum; with biopsy, single or multiple CPT copyright 2021 [employer]. All rights reserved. The codes documented in this report are preliminary and upon quality control tech review may be revised to meet current compliance requirements. Troy Self DO 08/28/2024 2:50:25 PM This report has been signed electronically. Number of Addenda: 0 Note Initiated On: 08/28/2024 1:04 PM 08/28/24 1450 Date Troy Self DO Cosigner Signature: Date (if indicated) CC: Dr. Naye Sheets MD; Troy Self DO Date Dictated: 08/28/24 1304 Date Transcribed: Lab Scientist: ASHLEY Signed Normal [facility] Liver Profileon 08-28-2024 Albumin [Mass/Vol] 2.8 g/dL Low 3.4-4.8 [facility] Comment on above: Performed By: #### L 503.5510, L5.6005 #### [facility] [address] [place], [address] ALK PHOS 140 U/L High 35-104 [facility] Comment on above: Performed By: #### L 503.5510, L503.6005 #### [facility] [address] [place], [address] ALT [Catalytic activity/Vol] 15 U/L Normal <=34 [facility] Comment on above: Performed By: #### L 503.5510, L503.6005 #### [facility] [address] [place], [address] AST [Catalytic activity/Vol] 34 U/L High <=31 [facility] Comment on above: Performed By: #### L 503.5510, L503.6005 #### [facility] [address] [place], [address] Bilirubin [Mass/Vol] 0.43 mg/dL Normal 0.00-1.30 [facility] Comment on above: Performed By: #### L 503.5510, L503.6005 #### [facility] [address] [place], [address] Bilirubin.direct [Mass/Vol] 0.23 mg/dL Normal 0.00-0.30 [facility] Comment on above: Performed By: #### L 503.5510, L503.6005 #### [facility] [address] [place], [address] Globulin (S) [Mass/Vol] 3.0 g/dL Normal 2.2-4.2 [facility] Comment on above: Performed By: #### L 503.5510, L503.6005 #### [facility] [address] [place], [address] T PROT 5.7 g/dL Low 5.9-8.4 [facility] Comment on above: Performed By: #### L 503.5510, L503.6005 #### [facility] [address] [place], [address] MR/POSTOP.ANEon 08-28-2024 MR/POSTOP.ANE [facility] Medical Records Department [address] [place] [address] Anesthesia Postop Eval I 08/28/241452 MR#: [id number] Acct: [id number] Name: KENYATTA CARRILLO Rep #: [id number] : 1960 63 From: Yang Vicente PCP: Dr. Naye Sheets MD Status:ADM IN Y Race: C Location: [place] [address]-1 Anesthesia: Postop Eval I Current Vital Signs Temperature: 98.4 F Pulse Rate: 89 Blood Pressure: 118/101 Respiratory Rate: 18 Pulse Ox: 98 Oxygen Delivery Method: Room Air Assessment Airway patent: Yes Spontaneous unlabored respirations: Yes Mental status: Awake and Calm nausea: No Vomiting: No Anesthesia Complication: No Fluid Hydration Crystalloid volume administer (ml): 40 Total IV fluid infused: 40 Progress Note Anesthesia document: Postop Eval 1 completed: Yes 08/28/241452 Date Yang Mariscal Signature: Date CC: Signed Normal [facility] MR/[id number] 08-28-2024 [facility] Medical Records Department [address] [place] [address] Anesthesia Postop Eval II 08/28/242027 MR#: [id number] Acct: [id number] Name: KENYATTA CARRILLO Rep #: [id number] : 1960 63 From: Mikael Vargas MD PCP: Dr. Naye Sheets MD Status:ADM IN Y Race: C Location: [place] [address]-1 Anesthesia Postop Eval I Sum Postop Eval Completion status Anesthesia document: Postop Eval 1 completed: Yes Anesthesia Postop Eval I Summary Anesthesia Postop Eval I Summary: Anesthesia Postop Eval I: Assessment Summary Airway patent Yes 08/28/24 14:53 [email or web address] Spontaneous unlabored Yes 08/28/24 14:53 [email or web address] respirations Mental status Awake,Calm 08/28/24 14:53 [email or web address] nausea No 08/28/24 14:53 [email or web address] Vomiting No 08/28/24 14:53 [email or web address] Anesthesia Postop Eval I: Fluid Summary Crystalloid volume administer 40 08/28/24 14:53 [email or web address] (ml) Colloids volume administered ( ml) Blood Product volume administered (ml) Total IV fluid infused 40 08/28/24 14:53 [email or web address] Anesthesia Postop Eval I: Summary Notes Anesthesia Complication No 08/28/24 14:53 [email or web address] Anesthesia Complication Comment: Post-operative progress note Anesthesia: Postop Eval II Evaluation Mental status: Awake and Calm Pain Level: 0 nausea: No Vomiting: No Complications Anesthesia Complication: No 08/28/242027 Date Mikael Vargas MD Cosigner Signature: Date CC: Signed Normal [facility] Magnesiumon 08-28-2024 Magnesium [Mass/Vol] 1.4 mg/dL Low 1.5-2.2 [facility] Comment on above: Performed By: #### L 300.4310, L501.4020, M200.1000, L100.0100, L500.4050, L503.6005, L300.3900, L501.3620 #### [facility] [address] [place], [place], [address] Magnesium (Unsp spec) [Mass/ Vol]Ordered By: Deven Porter on 08-28-2024 Magnesium [Mass/Vol] 1.4 mg/dL Low 1.5-2.2 [facility] Phosphoruson 08-28-2024 Phosphate [Mass/Vol] 3.6 mg/dL Normal 2.7-4.5 [facility] Comment on above: Performed By: #### L 300.4310, L501.4020, M200.1000, L100.0100, L500.4050, L503.6005, L300.3900, L501.3620 #### [facility] [address] [place], [place], [id number] Serum phosphorus measurement Ordered By: Deven Porter on 08-28-2024 Phosphorus Level 3.6 mg/dL 2.7-4.5 [facility] Surgery Specimen Level Claudine 08-28-2024 Surgery Specimen Level IV Patient Age/Sex Location Account Attending Physician KENYATTA CARRILLO 63/F MS3 [id number] Dr. Jerry Lopez MD Specimen: [id number] Received: 08/29/24 Status: ANDREINA Carrera Num: [id number] Spec Type: EGD BIOPSY Subm Dr: TroyDO KELVIN Pate OPERATION: EGD with biopsy PRE-OP DIAGNOSIS: GI bleed TISSUE SUBMITTED: A- Random esophagus biopsy MICROSCOPIC DIAGNOSIS A. Esophagus, random, biopsy: * Extensive ulceration with necro-inflammatory debris. * Columnar mucosa with reactive changes, negative for goblet cell metaplasia. * No squamous mucosa seen. * PASD stain for fungal organisms is pending and will be reported in an addendum. * IHC for CMV and HSV are pending and will be reported in an addendum. MICROSCOPIC DESCRIPTION Slides are reviewed. GROSS DESCRIPTION A. Received in formalin in a container labeled with the patient's name, date of , and biopsy: Random esophagus are multiple whitt-pink fragments of mucosal tissue measuring 0.8 x 0.6 x 0.3 cm in aggregate. Submitted in toto in A1. [facility] 09/10/2024 CPT:25134, 98475, 490[address], [address]207 ADDENDUM Addendum 1 Entered: 09/15/24-1087 This addendum is to report the results of the PASD special stain and the IHCs (performed at [facility]): The PASD stain is negative for fungal organisms. IHC for HSV (herpes simplex virus types I II) is negative (performed at [facility]). IHC for CMV (cytomegalovirus) is negative (performed at [facility]). Patient Age/Sex Location Account Attending Physician KENYATTA CARRILLO 63/F MS3 [id number] Dr. Jerry Lopez MD ADDENDUM (Continued) All matched controls reacted appropriately. These tests were developed and their performance characteristics determined by [facility]. They may not have been cleared or approved by the U.S. Food and Drug Administration. The FDA has determined that such clearance or approval is not necessary.??? The above immunohistochemical/dual CAITLIN???markers are ordered and reviewed by the Pathologist. Addendum Signed (signature on file) Dr. Laurie Poe MD 09/15/24 1356 Patient Age/Sex Location Account Attending Physician KENYATTA CARRILLO 63/F MS3 [id number] Dr. Jerry Lopez MD Signed (signature on file) Dr. Laurie Poe MD 09/10/24 1231 Normal [facility] Comment on above: Performed By: #### P SUIV ####[facility] [address] [place], [place], [id number] TSH DL <= 0.005 mIU/L QnOrde red By: Lefty Garcia on 08-28-2024 Thyroid Stimulating Hormone (TSH) 6.550 uIU/mL High 0.300-4.200 [facility] Thyroid Stim Hormone (TSH)on 08-28-2024 TSH 6.550 uIU/mL High 0.300-4.200 [facility] Comment on above: Performed By: #### L 300.4310, L501.4020, M200.1000, L100.0100, L500.4050, L503.6005, L300.3900, L501.3620 #### [facility] [address] [place], [address] Urine Cultureon 08-28-2024 URC Escherichia coli [place] Count >100,000 Escherichia coli: REACTION Ampicillin Islt NOAH 4 Ampicillin+Sulbac Islt NOAH <=2 S Cefepime Islt NOAH <=0.12 S cefTRIAXone Islt NOAH <=0.25 S Ciprofloxacin Islt NOAH <=0.06 S B-Lactamase Extended Susc Islt NEG Gentamicin Islt NOAH <=1 S levoFLOXacin Islt NOAH <=0.12 S Meropenem Islt NOAH <=0.25 S Nitrofurantoin Islt NOAH <=16 S Pip+Tazo Islt NOAH <=4 S TMP SMX Islt NOAH <=20 S Normal [facility] Comment on above: Performed By: #### M 100.2200 ####[facility] [address] [place], [address] CBC W/Diff, Automatedon 08-12 Absolute Lymph 1.67 X10 3/uL Normal 0.83-4.51 [facility] Comment on above: Performed By: #### L 100.0100, L500.4050, L501.9985 ####[facility] [address] [place], [address] Absolute Neut 9.7 X10 3/uL High 2.0-7.7 [facility] Comment on above: Performed By: #### L 100.0100, L500.4050, L501.9985 ####[facility] [address] [place], [address] Basophils/100 WBC (Bld) 0.4 % Normal 0-1 [facility] Comment on above: Performed By: #### L 100.0100, L500.4050, L501.9985 ####[facility] [address] [place], [address] Eosinophils/100 WBC (Bld) 0.2 % Normal 0-5 [facility] Comment on above: Performed By: #### L 100.0100, L500.4050, L501.9985 ####[facility] [address] [place], [address] Erythrocyte distribution width (RBC) [Ratio] 14.4 % Normal 11.6-14.6 [facility] Comment on above: Performed By: #### L 100.0100, L500.4050, L501.9985 ####[facility] [address] [place], [address] Hematocrit (Bld) [Volume fraction] 33.3 % Low 37-47 [facility] Comment on above: Performed By: #### L 100.0100, L500.4050, L501.9985 ####[facility] [address] [place], [address] Hemoglobin (Bld) [Mass/Vol] 11.4 g/dL Low 12.0-15.0 [facility] Comment on above: Performed By: #### L 100.0100, L500.4050, L501.9985 ####[facility] [address] [place], [address] IG% 0.400 Normal 0.0-0.9 [facility] Comment on above: Result Comment: IG% - Immature Granulocytes (promyelocytes, myelocytes and metamyelocytes) > 1% indicates that a LEFT SHIFT is Present. Performed By: #### L 100.0100, L500.4050, L501.9985 ####[facility] [address] [place], [address] Lymphocytes/100 WBC (Bld) 13.0 % Low 19-41 [facility] Comment on above: Performed By: #### L 100.0100, L500.4050, L501.9985 ####[facility] [address] [place], [address] MCH (RBC) [Entitic mass] 30.3 pg Normal 27.0-32.0 [facility] Comment on above: Performed By: #### L 100.0100, L500.4050, L501.9985 ####[facility] [address] [place], [address] MCHC (RBC) [Mass/Vol] 34.2 g/dL Normal 32-36 [facility] Comment on above: Performed By: #### L 100.0100, L500.4050, L501.9985 ####[facility] [address] [place], [address] MCV (RBC) [Entitic vol] 88.6 fL Normal 81-99 [facility] Comment on above: Performed By: #### L 100.0100, L500.4050, L501.9985 ####[facility] [address] [place], [address] Monocytes/100 WBC (Bld) 10.5 % High 0-10 [facility] Comment on above: Performed By: #### L 100.0100, L500.4050, L501.9985 ####[facility] [address] [place], [address] Neutrophils/100 WBC (Bld) 75.5 % High 47-70 [facility] Comment on above: Performed By: #### L 100.0100, L500.4050, L501.9985 ####[facility] [address] [place], [address] Nucleated RBC (Bld) [#/Vol] 0 10*3/uL Normal 0-5 [facility] Comment on above: Performed By: #### L 100.0100, L500.4050, L501.9985 ####[facility] [address] [place], [address] Platelet mean volume (Bld) [Entitic vol] 8.8 fL Normal 6.2-12.0 [facility] Comment on above: Performed By: #### L 100.0100, L500.4050, L501.9985 ####[facility] [address] [place], [address] Platelets (Bld) [#/Vol] 341 10*3/uL Normal 150-450 [facility] Comment on above: Performed By: #### L 100.0100, L500.4050, L501.9985 ####[facility] [address] [place], [address] RBC (Bld) [#/Vol] 3.76 10*6/uL Low 4.2-5.4 [facility] Comment on above: Performed By: #### L 100.0100, L500.4050, L501.9985 ####[facility] [address] [place], [address] RDW SD 46.3 fl High 35.1-43.9 [facility] Comment on above: Performed By: #### L 100.0100, L500.4050, L501.9985 ####[facility] [address] [place], [address] WBC (Bld) [#/Vol] 12.8 10*3/uL High 4.4-11.0 [facility] Comment on above: Performed By: #### L 100.0100, L500.4050, L501.9985 ####[facility] [address] [place], [address] Comprehensive Metabolic Prof ilon 08-27-2024 Albumin [Mass/Vol] 2.9 g/dL Low 3.4-4.8 [facility] Comment on above: Performed By: #### L 100.0100, L500.4050, L501.9985 ####[facility] [address] [place], [address] ALK PHOS 168 U/L High 35-104 [facility] Comment on above: Performed By: #### L 100.0100, L500.4050, L501.9985 ####[facility] [address] [place], [address] ALT [Catalytic activity/Vol] 16 U/L Normal <=34 [facility] Comment on above: Performed By: #### L 100.0100, L500.4050, L501.9985 ####[facility] [address] [place], [address] AST [Catalytic activity/Vol] 40 U/L High <=31 [facility] Comment on above: Performed By: #### L 100.0100, L500.4050, L501.9985 ####[facility] [address] [place], [address] Bilirubin [Mass/Vol] 0.52 mg/dL Normal 0.00-1.30 [facility] Comment on above: Performed By: #### L 100.0100, L500.4050, L501.9985 ####[facility] [address] [place], [address] BUN/CRE 9.4 RATIO Low 10-20 [facility] Comment on above: Performed By: #### L 100.0100, L500.4050, L501.9985 ####[facility] [address] [place], [address] Calcium [Mass/Vol] 9.2 mg/dL Normal 7.6-11.0 [facility] Comment on above: Performed By: #### L 100.0100, L500.4050, L501.9985 ####[facility] [address] [place], [address] Chloride [Moles/Vol] 102 mmol/L Normal 98-108 [facility] Comment on above: Performed By: #### L 100.0100, L500.4050, L501.9985 ####[facility] [address] [place], [address] CO2 [Moles/Vol] 22.8 mmol/L Normal 21.0-32.0 [facility] Comment on above: Performed By: #### L 100.0100, L500.4050, L501.9985 ####[facility] [address] [place], [address] Creatinine [Mass/Vol] 0.63 mg/dL Low 0.70-1.20 [facility] Comment on above: Performed By: #### L 100.0100, L500.4050, L501.9985 ####[facility] [address] [place], [address] ECRCL 80.90 ml/min Normal 50-250 [facility] Comment on above: Performed By: #### L 100.0100, L500.4050, L501.9985 ####[facility] [address] [place], [address] GAP 15 Normal 5-15 [facility] Comment on above: Performed By: #### L 100.0100, L500.4050, L501.9985 ####[facility] [address] [place], [address] GFR/1.73 sq M.predicted among non-blacks MDRD (S/P/Bld) [Vol rate/Area] 98 mL/min/{1.73_m2} Normal >60 [facility] Comment on above: Result Comment: mL/m in/1.73m2 CKD-EPI Creatinine Equation (2020) Performed By: #### L 100.0100, L500.4050, L501.9985 ####[facility] [address] [place], [address] Globulin (S) [Mass/Vol] 3.4 g/dL Normal 2.2-4.2 [facility] Comment on above: Performed By: #### L 100.0100, L500.4050, L501.9985 ####[facility] [address] [place], [address] Glucose [Mass/Vol] 171 mg/dL High 70-99 [facility] Comment on above: Performed By: #### L 100.0100, L500.4050, L501.9985 ####[facility] [address] [place], [address] Potassium [Moles/Vol] 3.2 mmol/L Low 3.3-5.1 [facility] Comment on above: Performed By: #### L 100.0100, L500.4050, L501.9985 ####[facility] [address] [place], [address] Sodium [Moles/Vol] 139 mmol/L Normal 133-145 [facility] Comment on above: Performed By: #### L 100.0100, L500.4050, L501.9985 ####[facility] [address] [place], [address] T PROT 6.3 g/dL Normal 5.9-8.4 [facility] Comment on above: Performed By: #### L 100.0100, L500.4050, L501.9985 ####[facility] [address] [place], [address] Urea nitrogen [Mass/Vol] 6 mg/dL Normal 4-19 [facility] Comment on above: Performed By: #### L 100.0100, L500.4050, L501.9985 ####[facility] [address] [place], [address] HH, Hemoglobin AND Hematocri ton 08-27-2024 Hematocrit (Bld) [Volume fraction] 34.6 % Low 37-47 [facility] Comment on above: Performed By: #### L 300.4310, L501.4020, M200.1000, L100.0100, L500.4050, L503.6005, L300.3900, L501.3620 #### [facility] [address] [place], [address] Hemoglobin (Bld) [Mass/Vol] 12.2 g/dL Normal 12.0-15.0 [facility] Comment on above: Performed By: #### L 300.4310, L501.4020, M200.1000, L100.0100, L500.4050, L503.6005, L300.3900, L501.3620 #### [facility] [address] [place], [address] Hemoglobin A1c percentageOrd ered By: Tiff Ramires on 08-27-2024 HbA1c (Bld) [Mass fraction] 5.7 % Normal <=5.6 [facility] Comment on above: Normal < 5.7 % Predi abetic 5.7 - 6.4 % Diabetic >or= 6.5 % Please note range changes. Result Comment: Norm al < 5.7 % Prediabetic 5.7 - 6.4 % Diabetic >or= 6.5 % Please note range changes. Performed By: #### L 100.0100, L500.4050, L501.9985 ####[facility] [address] [place], [address] MR/CON.PCM.GIon 08-27-2024 MR/CON.PCM.GI [facility] Medical Records Department [address] [place] [address] Consultation - GI 08/27/24 0723 MR#: [id number] Acct: [id number] Name: KENYATTA CARRILLO Rep #: [id number] : 1960 63 From: Sofie Moreland [employer] PCP: Dr. Naye Sheets MD Status:DIS IN Location: OR3 [id number] HPI Consult Data Date of Consult: 09/01/24 HPI Narrative Reason for Consultation: Acute GIB HPI Narrative: KENYATTA CARRILLO, is a 63 F who presented to the emergency department with a chief complaint of left hip pain and concerns for pneumonia. PMH significant for alcohol abuse, GIB secondary to ulcerative esophagitis with adherent clot May 2024 on pantoprazole 40 mg twice daily. She reports 1 episode of melena in the past week and recent use of Pepto-Bismol. She reports h/o binge drinking with most recent alcohol use in the past few days. She had coffee-ground emesis in the ED. CT revealing for moderate to marked esophageal wall thickening (likely esophagitis), hiatal hernia, changes of pancreatitis (lipase normal), 12 mm calculus in/near main pancreatic duct with upstream ductal dilation (recommend MRI/MRCP), enlarged gallbladder (cholelithiasis) without signs of acute inflammation, mild wall thickening versus underdistention in the rectosigmoid colon. Labs reveal hemoglobin on admission of 13.6 which has decreased to 11.4, INR 1.2, BUN 6, creatinine 0.63, AST 40, alkaline phosphatase 168, albumin 2.9. SBP 139-151, HR 82-122. She denies any ongoing hematemesis and is requesting PO. EGD 06/14/2024 ([facility]) - LA Grade D esophagitis with mucosal ulcerations with an adherent clot. - There were no visible vessels or active bleeding seen after removal of adherent clot. - Erythematous mucosa in the antrum. - Medium-sized hiatal hernia. - Normal duodenal bulb and second portion of the duodenum. Recommendation: - Return patient to ICU for ongoing care. D/c octreotide PPI IV Q12 Replace OG tube after 48 hours. Will need EGD in 8 weeks to evaluate healing of esophagitis. LABS 06/28/2024 HGB 10 - at discharge from [facility] Medical History Migraines Difficulty walking Urge incontinence Acute cystitis with hematuria Muscle weakness Osteoarthritis Alcoholic hepatitis Alcoholic liver disease Acute respiratory failure with hypoxia Metabolic encephalopathy Major depression Protein calorie malnutrition Acute post-hemorrhagic anemia Dysphagia, oropharyngeal phase Malignant neoplasm of colon Ulcer Restless legs Injury of head and neck Anemia Alcohol abuse Bipolar disorder Hypothyroidism Osteoporosis Kidney stones GERD (gastroesophageal reflux disease) GI bleed Former smoker Home Medications ???Medication ???Instructions ???Recorded ???Last Taken ???Type calcium carbonate (Tums) 200 mg PO BID PRN dyspepsia Unknown History cholecalciferol (vitamin D3) 1,250 1,250 mcg PO 2XW 07/23/24 Unknow n History mcg (50,000 unit) capsule cyanocobalamin (vitamin B-12) 1,000 mcg IM QMONTH 07/23/24 Unkno wn History 1,000 mcg/mL injection solution folic acid 1 mg tablet 1 mg PO QDAY 07/23/24 Unknown Hist ory ipratropium 0.5 mg-albuterol 3 mg 3 ml inhalation Q4H PRN shortness 07/23/24 Unknown History (2.5 mg base)/3 mL nebulization of breath soln lidocaine 4 % topical gel 1 applic topical HS 07/23/24 Unkno wn History magnesium glycinate 100 mg (as 100 mg PO BID 07/23/24 Unknown His tory glycinate) tablet (Mag Glycinate) magnesium oxide 400 mg PO QDAY 07/23/24 Unknown Hi story thiamine HCl (vitamin B1) 100 mg 100 mg PO QDAY 07/23/24 Unknown Hi story tablet venlafaxine 37.5 mg 37.5 mg PO QDAY 07/23/24 Unknown H istory capsule,extended release 24 hr zinc oxide 20 % topical paste 1 ea topical Q8H PRN skin 07/23/24 Unknown History irritation ascorbic acid (vitamin C) 500 mg 500 mg PO BID #60 tabs 08/29/24 Un known Rx tablet ferrous sulfate 325 mg (65 mg 325 mg PO QODAY #30 tabs 08/29/24 Unknown Rx iron) tablet pantoprazole 40 mg tablet,delayed 40 mg PO BID GERD 30 days #60 tab s 08/29/24 Unknown Rx release Allergy/AdvReac Type Severity Reaction Status Date / Time amoxicillin Allergy Intermediate Swelling, Verified 08/26/24 14:11 itching Family History Mother Alcohol abuse CAD (coronary artery disease) Heart disease Hypertension Myocardial infarction Father Alcohol abuse Cancer Surgical History History of total knee arthroplasty History of right hip replacement H/O total hysterectomy Social History household members: none Smoking Status: Never smoker alcohol intake: current alcohol intake (more content not included)... Normal [facility] Serum or plasma albumin/glob ulin mass ratioOrdered By: Tiff Ramires on 08-27-2024 Albumin/Globulin [Mass ratio] 0.9 {ratio} Normal 0.9-2.4 [facility] Comment on above: Performed By: #### L 100.0100, L500.4050, L501.9985 ####[facility] [address] [facility] [place], [place], [address] Abdomen/Pelvis W IV Cont ONL Yon 08-26-2024 Abdomen/Pelvis W IV Cont ONLY [facility] Imaging Services [address] [place], [place] [address] Abdomen/Pelvis W IV Cont ONLY MR#: [id number] Acct: [id number] Name: KENYATTA CARRILLO Rep #: [id number] : 1960 F 63 From: Fermin Payton MD PCP: Dr. Naye Sheets MD Status: REG ER Study: Abdomen/Pelvis W IV Cont ONLY Date of Exam: Exam# [id number] Ordering Dr: Jesus Flynn DO PROCEDURE: ABDOMEN/PELVIS W IV CONT ONLY 08/26/2024 REASON FOR EXAM: ABDOMINAL PAIN TECHNIQUE: Abdomen and pelvis CT with intravenous contrast. Coronal and Sagittal reconstruction series were provided. PATIENT PREPARATION: Per protocol ORAL CONTRAST TYPE: None. CONTRAST: Isovue-300 VOLUME: 75 mL One or more dose reduction techniques were used (e.g., Automated exposure control, adjustment of the mA and/or kV according to patient size, use of iterative reconstruction technique. RADIATION DOSE SUMMARY: CTDlvol: 6.65+ 26.77 mGy DLP: 1404.57 mGycm COMPARISON: 06/13/2024 FINDINGS: Pelvis partially obscured by streak artifact related to bilateral femoral orthopedic hardware. Moderate motion limitation through the lung bases greater than he far upper abdomen. Lung bases: Atelectasis/scarring. Minimally imaged distal most esophageal wall thickening. Small hiatal hernia.. Trace mitral annular calcification. Liver: Steatosis has improved slightly. Granulomas. Spleen: Granulomas.. Gallbladder: Distended gallbladder with cholelithiasis. No convincing inflammation. Pancreas: Atrophic. Similar ductal dilatation to 6 mm at the neck. Similar 12 mm intraductal versus parenchymal calculus in the head. Trace stranding along the pancreatic head/uncinate process. Adrenals: Atrophic. Kidneys: Lobulated contours. Punctate nonobstructing intrarenal calculus on the LEFT measures roughly 1-2 mm.. Bowel: Minimal diverticulosis. Minimal rectosigmoid and descending colonic wall thickening may be related to underdistention. Appendix enlarged to 14 mm without convincing adjacent inflammation. Intramural fat deposition within the marroquin of the appendix and cecum, nonspecific, but can be seen in the setting of obesity or chronic inflammation. Lymph nodes: Unremarkable. Vasculature: Trace atherosclerosis.. Peritoneum: Unremarkable. Bladder: Bladder wall thickening slightly disproportionate to underdistention with mucosal hyperemia. Reproductive Organs: Hysterectomy. 3.8 x 2.8 cm LEFT adnexal cyst. Body Wall: Increased nonspecific stranding in the LEFT flank and bilateral gluteal regions. Tiny fat containing umbilical hernia.. Bones: Demineralization. Multilevel spondylosis. Partially imaged RIGHT hip arthroplasty and intramedullary hardware in the LEFT femur. Severe end-stage degenerative changes of the LEFT hip with dysmorphic appearance.. Mild scoliosis. CT/Abdomen/Pelvis W IV Cont ONLY IMPRESSION: 1. Correlate for trace pancreatitis. Similar 12 mm calculus either within or adjacent to the main pancreatic duct with upstream pancreatic ductal dilatation. Given ductal dilatation, recommend clinical follow-up including outpatient pancreatic protocol MRI with and without contrast and with MRCP. 2. Findings suggest cystitis. Correlate with urinalysis. 3. Hiatal hernia with redemonstrated minimally imaged moderate to marked esophageal wall thickening suggesting esophagitis, better seen previously. Unable to exclude underlying neoplasm. Recommend clinical follow-up to exclude this possibility. 4. Distended gallbladder with cholelithiasis. No convincing inflammation. If there is concern, consider RIGHT upper quadrant ultrasound and/or HIDA. 5. Mild wall thickening versus underdistention of the descending and rectosigmoid colon. Correlate for very mild colitis. No adjacent inflammatory changes to confirm this. 6. Enlarged appendix without convincing adjacent inflammation to confirm acute appendicitis. Correlation with presentation and exam is necessary. This could reflect backwash inflammation related to colitis, if present. 7. Increased nonspecific stranding in the LEFT flank and bilateral gluteal regions. Correlate with exam for clinical evidence of cellulitis or possible contusion given an appropriate history of trauma. 8. 3.8 cm LEFT adnexal cyst, incompletely characterized by CT. Given the patient is postmenopausal, recommend outpatient pelvic ultrasound for more definitive characterization. 9. Hepatic steatosis has improved slightly. Correlate with clinical and laboratory evidence of chronic liver disease. 10. Additional description as above. Reading Location: [id number] CC: Dr. Jesus Flynn DO; Dr. Naye Sheets MD Lab Scientist: Signed Normal [facility] Absolute neutrophil countOrd ered By: Jesus Flynn on 08-26-2024 Neutrophils (Bld) [#/Vol] 6.2 10*3/uL 2.0-7.7 [facility] Alcohol, Blood (Medical)-Ser umon 08-26-2024 SERUM ETOH 279.0 mg/dL High <=10.0 [facility] Comment on above: Result Comment: This test is for medical purposes only. The legal definition of intoxication varies according to local law. Performed By: #### L 503.5510, L503.6005 #### [facility] [address] [place], [address] Anion gap in Serum or Plasma Ordered By: Jesus Flynn on 08-26-2024 Anion gap [Moles/Vol] 23 mmol/L High 09-25 [facility] BUN/creatinine ratioOrdered By: Jesus Flynn on 08-26-2024 Urea nitrogen/Creatinine [Mass ratio] 8.3 mg/mg Low 10-20 [facility] Basophil percentageOrdered B y: Jesus Herbyahaira on 08-26-2024 Basophils/100 WBC (Bld) 0.7 % 0-1 [facility] Bilirubin Test strip Ql (U)O rdered By: Jesus Flynn on 08-26-2024 Bilirubin Ql (U) Negative Negative [facility] Bilirubin, totalOrdered By: Jesus Flynn on 08-26-2024 Bilirubin [Mass/Vol] 0.28 mg/dL 0.00-1.30 [facility] CBC W/Diff, Automatedon 08-12 PLT EST MOD INC Normal ADEQ [facility] Comment on above: Performed By: #### L 300.4310, L501.4020, M200.1000, L100.0100, L500.4050, L503.6005, L300.3900, L501.3620 #### [facility] [address] [place], [place], [id number] (274) Carbon dioxide, total [Moles /volume] in Central venous bloodOrdered By: Jesus Flynn on 08-26-2024 CO2 [Moles/Vol] 21.5 mmol/L 21.0-32.0 [facility] Chloride assayOrdered By: Nrainder Flynn on 08-26-2024 Chloride [Moles/Vol] 95 mmol/L Low 98-108 [facility] Comprehensive Metabolic Prof ilon 08-26-2024 Albumin [Mass/Vol] 3.3 g/dL Low 3.4-4.8 [facility] Comment on above: Performed By: #### L 300.4310, L501.4020, M200.1000, L100.0100, L500.4050, L503.6005, L300.3900, L501.3620 #### [facility] [address] [place], [place], [id number] (510) Albumin/Globulin [Mass ratio] 0.8 {ratio} Low 0.9-2.4 [facility] Comment on above: Performed By: #### L 300.4310, L501.4020, M200.1000, L100.0100, L500.4050, L503.6005, L300.3900, L501.3620 #### [facility] [address] [place], [address] ALK PHOS 180 U/L High 35-104 [facility] Comment on above: Performed By: #### L 300.4310, L501.4020, M200.1000, L100.0100, L500.4050, L503.6005, L300.3900, L501.3620 #### [facility] [address] [place], [address] ALT [Catalytic activity/Vol] 21 U/L Normal <=34 [facility] Comment on above: Performed By: #### L 300.4310, L501.4020, M200.1000, L100.0100, L500.4050, L503.6005, L300.3900, L501.3620 #### [facility] [address] [place], [address] AST [Catalytic activity/Vol] 39 U/L High <=31 [facility] Comment on above: Performed By: #### L 300.4310, L501.4020, M200.1000, L100.0100, L500.4050, L503.6005, L300.3900, L501.3620 #### [facility] [address] [place], [address] Bilirubin [Mass/Vol] 0.28 mg/dL Normal 0.00-1.30 [facility] Comment on above: Performed By: #### L 300.4310, L501.4020, M200.1000, L100.0100, L500.4050, L503.6005, L300.3900, L501.3620 #### [facility] [address] [place], [address] BUN/CRE 8.3 RATIO Low 10-20 [facility] Comment on above: Performed By: #### L 300.4310, L501.4020, M200.1000, L100.0100, L500.4050, L503.6005, L300.3900, L501.3620 #### [facility] [address] [place], [address] Calcium [Mass/Vol] 10.0 mg/dL Normal 7.6-11.0 [facility] [facility] Comment on above: Performed By: #### L 300.4310, L501.4020, M200.1000, L100.0100, L500.4050, L503.6005, L300.3900, L501.3620 #### [facility] [address] [place], [address] Chloride [Moles/Vol] 95 mmol/L Low 98-108 [facility] Comment on above: Performed By: #### L 300.4310, L501.4020, M200.1000, L100.0100, L500.4050, L503.6005, L300.3900, L501.3620 #### [facility] [address] [place], [address] CO2 [Moles/Vol] 21.5 mmol/L Normal 21.0-32.0 [facility] Comment on above: Performed By: #### L 300.4310, L501.4020, M200.1000, L100.0100, L500.4050, L503.6005, L300.3900, L501.3620 #### [facility] [address] [place], [address] Creatinine [Mass/Vol] 0.69 mg/dL Low 0.70-1.20 [facility] Comment on above: Performed By: #### L 300.4310, L501.4020, M200.1000, L100.0100, L500.4050, L503.6005, L300.3900, L501.3620 #### [facility] [address] [place], [address] ECRCL 80.90 ml/min Normal 50-250 [facility] Comment on above: Performed By: #### L 300.4310, L501.4020, M200.1000, L100.0100, L500.4050, L503.6005, L300.3900, L501.3620 #### [facility] [address] [place], [place], [id number] (342) GAP 23 High 5-15 [facility] Comment on above: Performed By: #### L 300.4310, L501.4020, M200.1000, L100.0100, L500.4050, L503.6005, L300.3900, L501.3620 #### [facility] [address] [place], [place], [id number] (463 GFR/1.73 sq M.predicted among non-blacks MDRD (S/P/Bld) [Vol rate/Area] 96 mL/min/{1.73_m2} Normal >60 [facility] Comment on above: Result Comment: mL/m in/1.73m2 CKD-EPI Creatinine Equation (2020) Performed By: #### L 300.4310, L501.4020, M200.1000, L100.0100, L500.4050, L503.6005, L300.3900, L501.3620 #### [facility] [address] [place], [place], [id number] (984) Globulin (S) [Mass/Vol] 3.9 g/dL Normal 2.2-4.2 [facility] Comment on above: Performed By: #### L 300.4310, L501.4020, M200.1000, L100.0100, L500.4050, L503.6005, L300.3900, L501.3620 #### [facility] [address] [place], [address] Glucose [Mass/Vol] 150 mg/dL High 70-99 [facility] Comment on above: Performed By: #### L 300.4310, L501.4020, M200.1000, L100.0100, L500.4050, L503.6005, L300.3900, L501.3620 #### [facility] [address] [place], [address] Potassium [Moles/Vol] 2.6 mmol/L Invalid Interpretation Code 3.3-5.1 [facility] Comment on above: Result Comment: Crit ical Result(s) Called NJOHNSON at: 1622 by: MIKE??Results read back by same. Performed By: #### L 300.4310, L501.4020, M200.1000, L100.0100, L500.4050, L503.6005, L300.3900, L501.3620 #### [facility] [address] [place], [address] Sodium [Moles/Vol] 140 mmol/L Normal 133-145 [facility] Comment on above: Performed By: #### L 300.4310, L501.4020, M200.1000, L100.0100, L500.4050, L503.6005, L300.3900, L501.3620 #### [facility] [address] [place], [address] T PROT 7.1 g/dL Normal 5.9-8.4 [facility] Comment on above: Performed By: #### L 300.4310, L501.4020, M200.1000, L100.0100, L500.4050, L503.6005, L300.3900, L501.3620 #### [facility] [address] [place], [address] Urea nitrogen [Mass/Vol] 6 mg/dL Normal 4-19 [facility] Comment on above: Performed By: #### L 300.4310, L501.4020, M200.1000, L100.0100, L500.4050, L503.6005, L300.3900, L501.3620 #### [facility] [address] [place], [address] Emergency Department Summary on 08-26-2024 Emergency Department Summary [facility] Medical Records Department [address] [place] [address] Emergency Department Summary 08/26/24 MR#: [id number] Acct: [id number] Name: KENYATTA CARRILLO Rep #: [id number] : 1960 63 From: Jesus Flynn DO PCP: Dr. Naye Sheets MD Status:ADM IN Location: [address] History of Present Illness Chief Complaint: GI Bleed Informant: patient Onset/Context/Timing Onset: Today Context: Gradual Onset Timing: Continuous Quality: Aching, burning, sharp Location: Left upper quadrant Worsened by: Nothing Relieved by: Nothing Narrative Narrative: Patient presents with nausea and vomiting that became worse today. Patient states she has been having some vomiting for the past few months. Patient states that she has been vomiting up coffee- ground emesis today. Patient admits to some left upper quadrant abdominal pain. Patient describes it as aching, burning, and sharp. Patient states nothing makes it worse and nothing makes it better. Patient denies any diarrhea, melena, or hematochezia. Patient does admit to a cough. Patient denies any urinary complaints. Patient admits to drinking alcohol. PFSH PFSH Medical History Migraines Difficulty walking Urge incontinence Acute cystitis with hematuria Muscle weakness Osteoarthritis Alcoholic hepatitis Alcoholic liver disease Acute respiratory failure with hypoxia Metabolic encephalopathy Major depression Protein calorie malnutrition Acute post-hemorrhagic anemia Dysphagia, oropharyngeal phase Malignant neoplasm of colon Ulcer Restless legs Injury of head and neck Anemia Alcohol abuse Bipolar disorder Hypothyroidism Osteoporosis Kidney stones GERD (gastroesophageal reflux disease) GI bleed Former smoker Home Medications ???Medication ???Instructions ???Recorded ???Last Taken ???Type calcium carbonate (Tums) 200 mg PO BID PRN dyspepsia Unknown History cholecalciferol (vitamin D3) 1,250 1,250 mcg PO 2XW 07/23/24 Unknow n History mcg (50,000 unit) capsule cyanocobalamin (vitamin B-12) 1,000 mcg IM QMONTH 07/23/24 Unkno wn History 1,000 mcg/mL injection solution folic acid 1 mg tablet 1 mg PO QDAY 07/23/24 Unknown Hist ory ipratropium 0.5 mg-albuterol 3 mg 3 ml inhalation Q4H PRN shortness 07/23/24 Unknown History (2.5 mg base)/3 mL nebulization of breath soln lidocaine 4 % topical gel 1 applic topical HS 07/23/24 Unkno wn History magnesium glycinate 100 mg (as 100 mg PO BID 07/23/24 Unknown His tory glycinate) tablet (Mag Glycinate) magnesium oxide 400 mg PO QDAY 07/23/24 Unknown Hi story pantoprazole 40 mg tablet,delayed 40 mg PO BID GERD 07/23/24 Unknow n History release prednisone 50 mg tablet 50 mg PO QDAY 07/23/24 Unknown His tory thiamine HCl (vitamin B1) 100 mg 100 mg PO QDAY 07/23/24 Unknown Hi story tablet venlafaxine 37.5 mg 37.5 mg PO QDAY 07/23/24 Unknown H istory capsule,extended release 24 hr zinc oxide 20 % topical paste 1 ea topical Q8H PRN skin 07/23/24 Unknown History irritation Allergy/AdvReac Type Severity Reaction Status Date / Time amoxicillin Allergy Intermediate Swelling, Verified 08/26/24 14:11 itching Family History (Updated 08/26/24 @ 19:[address] Tiff Ramires MD) Mother Alcohol abuse CAD (coronary artery disease) Heart disease Hypertension Myocardial infarction Father Alcohol abuse Cancer Surgical History History of total knee arthroplasty History of right hip replacement H/O total hysterectomy Social History (Updated 08/26/24 @ 19:[address] Tiff Ramires MD) household members: none Smoking Status: Never smoker alcohol intake: current alcohol intake frequency: 3 or more drinks per day details: Notes binge drinking, whiskey. substance use type: other details: Former cannabis usage. Stopped 40 years ago. ROS ROS ED Constitutional Constitutional ED: Denies chills or fever(s) Eyes Eyes: Denies blurry vision or change in vision ENT ENT ED: Denies rhinorrhea or sore throat Cardiovascular Cardiovascular: Denies chest pain or palpitations Respiratory/Chest Respiratory/Chest: Reports cough; Denies dyspnea Gastrointestinal Gastrointestinal: Reports abdominal pain, nausea and vomiting Genitourinary Genitourinary ED: Denies dysuria or hematuria Musculoskeletal Musculoskeletal: Reports back pain; Denies neck pain Integumentary Denies abscess or rash Neurologic Neurologic: Denies headache(s) or weakness Allergic/Immunologic Allergic/Immunologic ED: Denies mouth swelling or urticaria EXAM Physical Exam Const Vital Signs: 08/26/24 16:11 08/26/24 18:00 Pulse Rate 87 114 H Respiratory Rate 15 25 H Blood Pressure 157/96 H 131/78 H B (more content not included)... Normal [facility] Eosinophil percentageOrdered By: Jesus Flynn on 08-26-2024 Eosinophils/100 WBC (Bld) 1.5 % 0-5 [facility] Epithelial cells.squamous LM Ql (Urine sed)Ordered By: Jesus Flynn on 08-26-2024 Epithelial cells.squamous LM.HPF (Urine sed) [#/Area] 0 /[HPF] 5-10 [facility] Erythrocyte distribution wid th (RBC) [Ratio]Ordered By: Jesus Flynn on 08-26-2024 Erythrocyte distribution width (RBC) [Entitic vol] 47.0 fL High 35.1-43.9 [facility] Erythrocyte distribution wid th ratioOrdered By: Jesus Flynn on 08-26-2024 Erythrocyte distribution width (RBC) [Ratio] 14.2 % 11.6-14.6 [facility] Estimation of creatinine dilcia aranceOrdered By: Jesus Flynn on 08-26-2024 Estimated Creatinine Clearance Calc 80.90 ml/min 50-250 [facility] Ethanol [Mass/Vol]Ordered By : Jesus Flynn on 08-26-2024 Ethyl Alcohol Level 279.0 mg/dL High <10.1 [facility] Comment on above: This test is for med ical purposes only. The legal definition of intoxication varies according to local law. GFR/1.73 sq M.predicted arnel g non-blacks MDRD (S/P/Bld) [Vol rate/Area]Ordered By: Jesus Flynn on 08-26-2024 Estimated GFR (MDRD) Non-Af Amer 96 >60 [facility] Comment on above: mL/min/1.73m2 CKD-EP I Creatinine Equation (2020) Glucose Ql (U)Ordered By: Narinder Flynn on 08-26-2024 Urine Glucose (UA) Normal mg/dl Normal [facility] H AND P Exam - [facility] 08-26-2024 H&P Exam - Hospitalist [facility] Medical Records Department [address] [place] [address] H P Exam - Hospitalist 08/26/24 1832 MR#: [id number] Acct: [id number] Name: KENYATTA CARRILLO Rep #: [id number] : 1960 63 From: Tiff Ramires MD PCP: Dr. Naye Sheets MD Status:ADM IN Location: [place] [address]-1 HPI - General General Date of Admission: 08/26/24 Date of Service: 08/26/24 Chief Complaint: N/V, coffee ground emesis, abdominal pain. HPI Narrative The patient is a 63 y/o F w/ PMHx: Chronic alcoholic liver disease/chronic alcoholic hepatitis, Severe protein calorie malnutrition, GERD w/ Hx GI bleed, Anxiety and Depression/Bipolar disorder, Hypothyroidism, Former tobacco use, Chronic oropharyngeal phase dysphagia who presents to the [facility] ED on 08/26/24 with history of intermittent episodes of nausea and emesis over the last several months however worse over the last 24 hours with onset of coffee-ground emesis with associated left upper quadrant abdominal pain described as aching, burning and sharp intermittently with nothing making it better or worse with no recent diarrhea, melanotic stools or hematochezia with mild recent cough and no specific urinary complaints but significant fatigue and malaise with ongoing alcohol abuse prompting eventual ED evaluation. In regard to urinary symptoms she does report urinary frequency and some urgency. Workup in the ED included T98.1, heart rate 118, BP 139/81, respiratory rate 19, 97% on room air with most recent repeat vitals heart rate 87, BP 157/96, respiratory rate 15, 98% on room air, CBC with WBC 12.8, hemoglobin 13.6, MCV 90.9, platelet 505 with lymphocytosis, coags unremarkable aside PT 15.2, CMP with potassium 2.6, chloride 95, anion gap 23, BUN/creatinine 6/0.69, GFR 96, glucose 150, hepatic profile with T. bili 0.28, AST/ALT 39/21, alk phos 180 otherwise not marked appearing, urinalysis with cloudy appearing urine, specific gravity 1.015, protein 30, occult blood 25, positive nitrite, leukocyte esterase 500, Ethyl alcohol 279, CT abdomen and pelvis with possible trace pancreatitis, similar 12 mm calculus at there within her adjacent to the main pancreatic duct with upstream pancreatic ductal dilatation, findings suggestive of cystitis, hiatal hernia with re-demonstrated minimally imaged moderate to marked esophageal wall thickening suggestive of esophagitis, distended gallbladder with cholelithiasis with no evidence of inflammation, mild wall thickening versus underdistention of the descending and rectosigmoid colon, enlarged appendix without convincing adjacent inflammation to confirm acute appendicitis, increased nonspecific stranding in the left flank and bilateral gluteal regions, 3.8 cm left adnexal cyst incompletely characterized, hepatic steatosis with evidence of chronic liver disease. In the ED patient ministered 1 L normal saline, Zofran 4 mg IV x 2, potassium 20 mill equivalent IV x 1 as well as oral potassium 40 mill equivalent p.o. x 1 in addition to Protonix 80 mg IV bolus x 1. Discussed patient with ED and she will also be administered IV rocephin. PFSH Medical History Difficulty walking Urge incontinence Acute cystitis with hematuria Muscle weakness Osteoarthritis Alcoholic hepatitis Alcoholic liver disease Acute respiratory failure with hypoxia Metabolic encephalopathy Major depression Protein calorie malnutrition Acute post-hemorrhagic anemia Dysphagia, oropharyngeal phase Malignant neoplasm of colon Ulcer Restless legs Injury of head and neck Anemia Alcohol abuse Bipolar disorder Hypothyroidism Osteoporosis Kidney stones GERD (gastroesophageal reflux disease) GI bleed Former smoker Home Medications ???Medication ???Instructions ???Recorded ???Last Taken ???Type calcium carbonate (Tums) 200 mg PO BID PRN dyspepsia Unknown History cholecalciferol (vitamin D3) 1,250 1,250 mcg PO 2XW 07/23/24 Unknow n History mcg (50,000 unit) capsule cyanocobalamin (vitamin B-12) 1,000 mcg IM QMONTH 07/23/24 Unkno wn History 1,000 mcg/mL injection solution folic acid 1 mg tablet 1 mg PO QDAY 07/23/24 Unknown Hist ory ipratropium 0.5 mg-albuterol 3 mg 3 ml inhalation Q4H PRN shortness 07/23/24 Unknown History (2.5 mg base)/3 mL nebulization of breath soln lidocaine 4 % topical gel 1 applic topical HS 07/23/24 Unkno wn History magnesium glycinate 100 mg (as 100 mg PO BID 07/23/24 Unknown His tory glycinate) tablet (Mag Glycinate) magnesium oxide 400 mg PO QDAY 07/23/24 Unknown Hi story pantoprazole 40 mg tablet,delayed 40 mg PO BID GERD 07/23/24 Unknow n History release prednisone 50 mg tablet 50 mg PO QDAY 07/23/24 Unknown His tory thiamine HCl (vitamin B1) 100 mg 100 mg PO QDAY 07/23/24 Unknown Hi story tablet venlafaxine 37.5 mg 37.5 mg PO QDAY (more content not included)... Normal [facility] HH, Hemoglobin AND Hematocri ton 08-26-2024 Hematocrit (Bld) [Volume fraction] 40.4 % Normal 37-47 [facility] Comment on above: Performed By: #### L 300.4310, L501.4020, M200.1000, L100.0100, L500.4050, L503.6005, L300.3900, L501.3620 #### [facility] [address] [place], [place], [id number] Hemoglobin (Bld) [Mass/Vol] 13.4 g/dL Normal 12.0-15.0 [facility] Comment on above: Performed By: #### L 300.4310, L501.4020, M200.1000, L100.0100, L500.4050, L503.6005, L300.3900, L501.3620 #### [facility] [address] [place], [address] HIP, UNI W/ Pelvis 2-3 Views on 08-26-2024 HIP, UNI W/ Pelvis 2-3 Views [facility] Services [address] [place], [place] [address] HIP, UNI W/ Pelvis 2-3 Views MR#: [id number] Acct: [id number] Name: KENYATTA CARRILLO Rep #: [id number] : 1960 F 63 From: Will Benjamin DO PCP: Dr. Naye Sheets MD Status: REG ER Study: HIP, UNI W/ Pelvis 2-3 Views Date of Exam: Exam# [id number] Ordering Dr: Jesus Flynn DO PROCEDURE: HIP, UNI W/ PELVIS 2-3 VIEWS 08/26/2024 REASON FOR EXAM: INJURY/PAIN TECHNIQUE: 3 view(s) of the left hip including the pelvis. COMPARISON: 06/10/2022 FINDINGS: Bones: Status post right hip arthroplasty and status post ORIF of the left hip. No acute fracture or dislocation is demonstrated. Degenerative changes of the bilateral sacroiliac joints. Joints: Severe narrowing of the left hip joint. Soft tissues: Unremarkable Other: RAD/HIP, UNI W/ Pelvis 2-3 Views IMPRESSION: No acute fracture. Postop changes as described above. Severe narrowing of the left hip joint. Reading Location: [facility] CC: Dr. Jesus Flynn DO; Dr. Naye Sheets MD Lab Scientist: Signed Normal [facility] Hematocrit Auto (Bld) [Volum e fraction]Ordered By: Jesus Flynn on 08-26-2024 Hematocrit (Bld) [Volume fraction] 40.9 % 37-47 [facility] Hemoglobin measurementOrdere d By: Jesus Flynn on 08-26-2024 Hemoglobin (Bld) [Mass/Vol] 13.6 g/dL 12.0-15.0 [facility] Immature granulocytes/100 WB C Auto (Bld)Ordered By: Jesus Flynn on 08-26-2024 Immature granulocytes/100 WBC (Bld) 0.500 % 0.0-0.9 [facility] Comment on above: IG% - Immature Granu locytes (promyelocytes, myelocytes and metamyelocytes) > 1% indicates that a LEFT SHIFT is Present. International normalized rat io (INR) calculationOrdered By: Jesus Flynn on 08-26-2024 INR Coag (Bld) [Relative time] 1.2 {INR} [facility] Ketones Test strip Ql (U)Ord ered By: Jesus Flynn on 08-26-2024 Ketones Ql (U) Negative Negative [facility] - Chemistry and C hemistry - challengeOrdered By: Jesus Flynn on 08-26-2024 AST [Catalytic activity/Vol] 39 U/L High <32 [facility] Lipaseon 08-26-2024 Lipase [Catalytic activity/Vol] 28 U/L Normal 13-75 [facility] Comment on above: Result Comment: Plea se note: LIPASE revised reference range effective 22. New Lipase methodology. Expected to produce lower values than the previous assay method. NEW Reference Range: 13 - 75 U/L Performed By: #### L 300.4310, L501.4020, M200.1000, L100.0100, L500.4050, L503.6005, L300.3900, L501.3620 #### [facility] [address] [place], [place], [address] Lipase measurementOrdered By : Jesus Flynn on 08-26-2024 Lipase [Catalytic activity/Vol] 28 U/L 13-75 [facility] Comment on above: Please note:LIPASE r evised reference range effective 22. New Lipase methodology. Expected to produce lower values than the previous assay method. NEW Reference Range: 13 - 75 U/L Lymphocytes Auto (Unsp spec) [#/Vol]Ordered By: Jesus Flynn on 08-26-2024 Lymphocytes (Bld) [#/Vol] 5.38 10*3/uL High 0.83-4.51 [facility] Lymphocytes/100 WBC Auto (Un sp spec)Ordered By: Jesus Flynn on 08-26-2024 Lymphocytes/100 WBC (Bld) 42.1 % High 19-41 [facility] MCV (mean corpuscular volume ) determinationOrdered By: Jesus Flynn on 08-26-2024 MCV (RBC) [Entitic vol] 90.9 fL 81-99 [facility] Magnesiumon 08-26-2024 Magnesium [Mass/Vol] 1.4 mg/dL Low 1.5-2.2 [facility] Comment on above: Order Comment: Comme nts: May add to ED labsComments: may add to ED labs Performed By: #### L 300.4310, L501.4020, M200.1000, L100.0100, L500.4050, L503.6005, L300.3900, L501.3620 #### [facility] [address] [place], [place], [id number] Magnesium (Unsp spec) [Mass/ Vol]Ordered By: Tiff Ramires on 08-26-2024 Magnesium [Mass/Vol] 1.4 mg/dL Low 1.5-2.2 [facility] Mean corpuscular hemoglobin (MCH) determinationOrdered By: Jesus Flynn on 08-26-2024 MCH (RBC) [Entitic mass] 30.2 pg 27.0-32.0 [facility] Mean corpuscular hemoglobin concentration (MCHC) determinationOrdered By: Jesus Flynn on 08-26-2024 MCHC (RBC) [Mass/Vol] 33.3 g/dL 32-36 [facility] Mean platelet volume determi nationOrdered By: Jesus Flynn on 08-26-2024 Platelet mean volume (Bld) [Entitic vol] 9.0 fL 6.2-12.0 [facility] Microscopic analysis of urin e for red blood cells (RBC)Ordered By: Jesus Flynn on 08-26-2024 Urine RBC 0-5 SEEN /hpf 0-5 [facility] Monocyte percentageOrdered B y: Jesus Flynn on 08-26-2024 Monocytes/100 WBC (Bld) 6.6 % 0-10 [facility] Mucus LM Ql (Urine sed)Order ed By: Jesus Flynn on 08-26-2024 Mucus Ql (Urine sed) 0 SEEN /hpf [facility] Neutrophil percentageOrdered By: Jesus Flynn on 08-26-2024 Neutrophils/100 WBC (Bld) 48.6 % 47-70 [facility] Nitrite Test strip Ql (U)Ord ered By: Jesus Flynn on 08-26-2024 Nitrite Ql (U) Positive High Negative [facility] Nucleated red blood cell per centageOrdered By: Jesus Flynn on 08-26-2024 Nucleated RBC/100 WBC (Bld) [Ratio] 0 % 0-5 [facility] Partial Thromboplast Timeon 08-26-2024 aPTT Coag (Bld) [Time] 29.5 s Normal 24.1-36.2 [facility] Comment on above: Performed By: #### L 503.5510, L503.6005 #### [facility] [address] [place], [address] Phosphoruson 08-26-2024 Phosphate [Mass/Vol] 5.0 mg/dL High 2.7-4.5 [facility] Comment on above: Order Comment: Comme nts: May add to ED labsComments: may add to ED labs Performed By: #### L 300.4310, L501.4020, M200.1000, L100.0100, L500.4050, L503.6005, L300.3900, L501.3620 #### [facility] [address] [place], [address] Platelet countOrdered By: Narinder Flynn on 08-26-2024 Platelets (Bld) [#/Vol] 505 10*3/uL High 150-450 [facility] Platelets LM Ql (Bld)Ordered By: Jesus Flynn on 08-26-2024 Platelet Estimate MOD INC ADEQ [facility] Potassium (Unsp spec) [Mass/ Vol]Ordered By: Jesus Flynn on 08-26-2024 Potassium [Moles/Vol] 2.6 mmol/L Low 3.3-5.1 [facility] Comment on above: Critical Result(s) C jagjit FRANCOWIMACRINA at: 1622 by: MIKE Results read back by same. Protein Test strip Ql (U)Ord ered By: Jesus Flynn on 08-26-2024 Protein Ql (U) 30 mg/dl High Negative [facility] Prothrombin Time w/INRon INR Coag (PPP) [Relative time] 1.2 {INR} Normal [facility] Comment on above: Performed By: #### L 503.5510, L503.6005 #### [facility] [address] [place], [address] PT Coag (PPP) [Time] 15.2 s High 11.7-14.9 [facility] Comment on above: Performed By: #### L 503.5510, L503.6005 #### [facility] [address] [place], [place], [address] Prothrombin timeOrdered By: Jesus Flynn on 08-26-2024 PT Coag (PPP) [Time] 15.2 s High 11.7-14.9 [facility] RBC Auto (Bld) [#/Vol]Ordere d By: Jesus Flynn on 08-26-2024 RBC (Bld) [#/Vol] 4.50 10*6/uL 4.2-5.4 [facility] Serum creatinine measurement (mass/volume)Ordered By: Jesus Flynn on 08-26-2024 Creatinine [Mass/Vol] 0.69 mg/dL Low 0.70-1.20 [facility] Serum globulin measurementOr dered By: Jesus Flynn on 08-26-2024 Globulin (S) [Mass/Vol] 3.9 g/dL 2.2-4.2 [facility] Serum glucose measurement (m ass/volume)Ordered By: Jesus Flynn on 08-26-2024 Glucose [Mass/Vol] 150 mg/dL High 70-99 [facility] Serum or plasma alanine araiza otransferase (ALT) measurementOrdered By: Jesus Flynn on 08-26-2024 ALT [Catalytic activity/Vol] 21 U/L <35 [facility] Serum or plasma albumin abida urement (mass/volume)Ordered By: Jesus Flynn on 08-26-2024 Albumin [Mass/Vol] 3.3 g/dL Low 3.4-4.8 [facility] Serum or plasma albumin/glob ulin mass ratioOrdered By: Jesus Flynn on 08-26-2024 Albumin/Globulin [Mass ratio] 0.8 {ratio} Low 0.9-2.4 [facility] Serum or plasma alkaline desi sphatase measurementOrdered By: Jesus Flynn on 08-26-2024 ALP [Catalytic activity/Vol] 180 U/L High 35-104 [facility] Serum or plasma calcium abida urement (mass/volume)Ordered By: Jesus Flynn on 08-26-2024 Calcium [Mass/Vol] 10.0 mg/dL 7.6-11.0 [facility] Serum or plasma urea nitroge n measurement (mass/volume)Ordered By: Jesus Flynn on 08-26-2024 Urea nitrogen [Mass/Vol] 6 mg/dL 4-19 [facility] Serum phosphorus measurement Ordered By: Tiff Ramires on 08-26-2024 Phosphorus Level 5.0 mg/dL High 2.7-4.5 [facility] Sodium levelOrdered By: Jesus Flynn on 08-26-2024 Sodium [Moles/Vol] 140 mmol/L 133-145 [facility] Total proteinOrdered By: Kath Flynn on 08-26-2024 Protein [Mass/Vol] 7.1 g/dL 5.9-8.4 [facility] Transitional cells LM Ql (Ur ine sed)Ordered By: Jesus Flynn on 08-26-2024 Urine Transitional Epithelial Cells 0-5 SEEN /hpf 0-5 [facility] Type AND Screenon 08-26-2024 Ab SCREEN GEL Negative Normal [facility] Comment on above: Order Comment: HGI Performed By: #### L 300.4310, L501.4020, M200.1000, L100.0100, L500.4050, L503.6005, L300.3900, L501.3620 #### [facility] [address] [address] [place], [place], [id number] Urinalysis, Completeon 08-26 RBC 0-5 SEEN Normal 0-5 [facility] Comment on above: Order Comment: CLEAN CATCH Performed By: #### L [id number] ####[facility] [address] [place], [address] EPI,SQUAMOUS 0-5 SEEN Normal 5-10 [facility] Comment on above: Order Comment: CLEAN CATCH Performed By: #### L [id number] ####[facility] [address] [place], [address] EPI,TRANSITION 0-5 SEEN Normal 0-5 [facility] Comment on above: Order Comment: CLEAN CATCH Performed By: #### L 400.0001 ####[facility] [address] [place], [address] WBC >100 SEEN Normal 0-5 [facility] Comment on above: Order Comment: CLEAN CATCH Performed By: #### L 400.0001 ####[facility] [address] [place], [address] BACTERIA 3+ /hpf Normal None Seen [facility] Comment on above: Order Comment: CLEAN CATCH Performed By: #### L [id number] ####[facility] [address] [place], [address] Mucus Ql (Urine sed) 0 SEEN Normal [facility] Comment on above: Order Comment: CLEAN CATCH Performed By: #### L 400.0001 ####[facility] [address] [place], [address] Urine blood detectionOrdered By: Jesus Flynn on 08-26-2024 Urine Occult Blood 25 /ul High Negative [facility] Urine clarityOrdered By: Kath Flynn on 08-26-2024 Clarity (U) Cloudy Clear [facility] Urine color determinationOrd ered By: Jesus Flynn on 08-26-2024 Color (U) Yellow Yellow [facility] Urine cultureOrdered By: Kath Flynn on 08-26-2024 Bacteria identified Cx Nom (U) Escherichia coli Abnormal [facility] Urine leukocyte esterase det ection by dipstickOrdered By: Jesus Flynn on 08-26-2024 Leukocyte esterase Test strip Ql (U) 500 /ul High Negative [facility] Urine pHOrdered By: Jesus marrero on 08-26-2024 pH (U) 6.0 [pH] 5.0 - 8.0 [facility] Urine sediment bacteria coun t by microscopy (number/high power field)Ordered By: Jesus Flynn on 08-26-2024 Bacteria LM.HPF (Urine sed) [#/Area] 3 /[HPF] None Seen [facility] Urine specific gravity measu rementOrdered By: Jesus Flynn on 08-26-2024 Specific gravity (U) [Rel density] 1.015 1.002-1.030 [facility] Urobilinogen Ql (U)Ordered B y: Jesus Flynn on 08-26-2024 Urine Urobilinogen Normal mg/dl Normal [facility] White blood cell (WBC) count Ordered By: Jesus Flynn on 08-26-2024 WBC (Bld) [#/Vol] 12.8 10*3/uL High 4.4-11.0 [facility] White blood cell countOrdere d By: Jesus Flynn on 08-26-2024 Urine WBC >100 SEEN /hpf 0-5 [facility] aPTT Coag (PPP) [Time]Ordere d By: Jesus Flynn on 08-26-2024 aPTT Coag (Bld) [Time] 29.5 s 24.1-36.2 [facility] KENYATTA CARRILLO ([id number]) 1960 F Date Time Provider Department 08/20/24 NAYE SHEETS [facility] During your visit today, we recorded the following information about you: Shelly LockwoodaMARIBEL 08/20/2024 11:34 AM Signed José Miguel ph. [phone]. [facility] [employer] Called and left detailed message for José Miguel that patient has been dismissed from practice. Also let her know that patient is reporting fall to office and that she is having trouble with her hip that she can't get to her car. Advised her to call office with any questions. Allergies As of Date: 08/20/2024 Noted Allergy Reaction AMOXIL (AMOXICILLIN) 11/23/2021 2 - Rash Comments: Face and neck 06/2024: Appears to be tolerating Zosyn. Date Reviewed: 06/27/2024 Reviewed by: Teri Aviles RN - Fully Assessed Reason for Visit: FYI-No Action Needed [265] Prescriptions as of 08/20/2024 - calcium carbonate (TUMS) 500 mg chew Take 1 tablet by mouth two times a day as needed. - venlafaxine ER (EFFEXOR XR) 37.5 mg 24 hr capsule Take 1 capsule by mouth daily with breakfast. - prednisoLONE sodium phosphate (ORAPRED) 15 mg/5 mL (3 mg/mL) oral liquid Take 13.3 mL by mouth once daily. Follow-up with your windows vmware administrator to decide on tapering down do not stop abruptly without plan for discontinuation with your windows vmware administrator - pantoprazole DR (PROTONIX) 40 mg tablet Take 1 tablet by mouth two times a day. - zinc oxide 20 % ointment Apply to affected area as needed. - thiamine (VITAMIN B1) 100 mg tablet 1 tablet by ORAL/FEEDING TUBE route once daily. - Magnesium Glycinate (MAG GLYCINATE) 100 mg tab Take 1 tablet by mouth two times a day. - benzonatate (TESSALON PERLES) 100 mg capsule Take 1 capsule by mouth three times daily as needed. - cyanocobalamin 1,000 mcg/mL Inject 1 mL intramuscularly once every month. - folic acid 1 mg tablet Take 1 tablet by mouth once daily. - ferrous sulfate 325 mg (65 mg iron) tablet Take 1 tablet by mouth twice daily with meals. Problem List As Of Date 08/20/2024 Noted Resolved Arthritis of knee [M17.10] 01/03/2011 Urgency of urination [R39.15] 01/13/2011 Female stress incontinence [N39.3] 01/13/2011 Urge incontinence [N39.41] 01/13/2011 Moderate dysplasia of cervix [N87.1] 01/13/2011 Symptomatic menopausal or female climacteric st*01/13/2011 Postmenopausal atrophic vaginitis [N95.2] 01/13/2011 Primary localized osteoarthrosis, lower leg [M1*01/31/2011 Abnormality of gait [R26.9] 04/20/2011 Knee pain [M25.569] 04/20/2011 Bipolar 1 disorder, mixed [F31.60] 08/23/2012 Tubular adenoma of colon [D12.6] 08/23/2012 Loose body in elbow joint [M24.029] 11/18/2012 Pain in joint, shoulder region [M25.519] 02/23/2014 Unspecified arthropathy, shoulder region [M19.0*02/23/2014 Fracture of femur, intertrochanteric, right, cl*10/19/2015 06/29/2016 Displaced intertrochanteric fracture of right f*10/19/2015 06/29/2016 Hypothyroidism [E03.9] 06/29/2016 Vitamin D deficiency [E55.9] 06/29/2016 Aseptic necrosis of bone of hip, right (HCC) [M*06/06/2018 06/28/2018 Traumatic arthritis of hip, 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] 06/06/2018 06/28/2018 History of hip replacement, total, right [Z96.6*06/28/2018 Periprosthetic supracondylar fracture of femur *12/27/2018 Periprosthetic fracture around internal prosthe*01/24/2019 Presence of right artificial knee joint [Z96.65*01/24/2019 Anemia [D64.9] 06/16/2022 Diagnosed: 05/22/2023 Bipolar disorder, current episode depressed, mi*11/23/2020 Diagnosed: 05/22/2023 Chronic constipation [K59.09] 05/22/2023 Diagnosed: 05/22/2023 Dysphagia [R13.10] 05/22/2023 Diagnosed: 05/22/2023 Endometriosis of other specified sites [N80.8] 05/22/2023 Diagnosed: 05/22/2023 Fracture dislocation of hip joint (HCC) [S72.00*05/22/2023 Diagnosed: 05/22/2023 Fracture of neck of femur (HCC) [S72.009A] 06/16/2022 Diagnosed: 05/22/2023 Gastroesophageal reflux disease [K21.9] 05/22/2023 Diagnosed: 05/22/2023 History of alcohol abuse [F10.11] 05/22/2023 Diagnosed: 05/22/2023 History of manic depressive disorder [Z86.59] 06/16/2022 Diagnosed: 05/22/2023 History of osteoarthritis [Z87.39] 05/22/2023 Diagnosed: 05/22/2023 History of disease [Z87.898] 05/22/2023 Diagnosed: 05/22/2023 Hypokalemia [E87.6] 06/16/2022 Diagnosed: 05/22/2023 Insomnia [G47.00] 08/13/2001 Diagnosed: 05/22/2023 Loss of consciousness (HCC) [R40.20] 05/22/2023 Diagnosed: 05/22/2023 Major depressive disorder, recurrent, unspecifi*11/23/2020 Diagnosed: 05/22/2023 Nausea with vomiting [R11.2] 08/13/2001 Diagnosed: 05/22/2023 Osteopenia [M85.80] 05/22/2023 Diagnosed: 05/22/2023 Alcoholism (HCC) [F10.20] 05/22/2023 Diagnosed: 05/22/2023 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] 11/09/2003 Diagnosed: 05/22/2023 Other anxiety states [F41.1] 05/22/2023 Diagnosed: (more content not included)... [facility] KENYATTA CARRILLO ([id number]) 1960 F Date Time Provider Department 4/9/25 NAYE SHEETS [facility] During your visit today, we recorded the following information about you: Alison Cespedes LPN 08/20/2024 10:44 AM Signed Patient calling to reschedule her appt to follow up after shelter visit, she can not get out to her car. She had fallen in her apartment few days ago and had to have squad get her up. Now she said her hip is sticking out not normal, not sure if out of place, she had refused to go to ER when squad got her up. Could not reschedule appt since now her chart has No PCP on it. Patient asking if Dr Sheets is no longer her PCP and if she can not see him? She said she has had issues getting to her appt lately. Please advise Naye Sheets MD 08/20/2024 11:20 AM Signed She was dismissed for no shows. [facility] and would have been informed about this? Neelam Trimble MA 08/20/2024 11:42 AM Addendum Spoke with patient whom states she was already contacted by [facility] office last week sometime and informed she had been dismissed from the practice. She stated if she has any follow up questions she'll call the [facility] office back. I gave her the number again so she had it. Neelam Trimble MA Allergies As of Date: 08/20/2024 Noted Allergy Reaction AMOXIL (AMOXICILLIN) 11/23/2021 2 - Rash Comments: Face and neck 06/2024: Appears to be tolerating Zosyn. Date Reviewed: 06/27/2024 Reviewed by: Teri Aviles, KYLIE - Fully Assessed Reason for Visit: reschedule appt from shelter visit [Other] Prescriptions as of 08/20/2024 - calcium carbonate (TUMS) 500 mg chew Take 1 tablet by mouth two times a day as needed. - venlafaxine ER (EFFEXOR XR) 37.5 mg 24 hr capsule Take 1 capsule by mouth daily with breakfast. - prednisoLONE sodium phosphate (ORAPRED) 15 mg/5 mL (3 mg/mL) oral liquid Take 13.3 mL by mouth once daily. Follow-up with your windows vmware administrator to decide on tapering down do not stop abruptly without plan for discontinuation with your windows vmware administrator - pantoprazole DR (PROTONIX) 40 mg tablet Take 1 tablet by mouth two times a day. - zinc oxide 20 % ointment Apply to affected area as needed. - thiamine (VITAMIN B1) 100 mg tablet 1 tablet by ORAL/FEEDING TUBE route once daily. - Magnesium Glycinate (MAG GLYCINATE) 100 mg tab Take 1 tablet by mouth two times a day. - benzonatate (TESSALON PERLES) 100 mg capsule Take 1 capsule by mouth three times daily as needed. - cyanocobalamin 1,000 mcg/mL Inject 1 mL intramuscularly once every month. - folic acid 1 mg tablet Take 1 tablet by mouth once daily. - ferrous sulfate 325 mg (65 mg iron) tablet Take 1 tablet by mouth twice daily with meals. Problem List As Of Date 08/20/2024 Noted Resolved Arthritis of knee [M17.10] 01/03/2011 Urgency of urination [R39.15] 01/13/2011 Female stress incontinence [N39.3] 01/13/2011 Urge incontinence [N39.41] 01/13/2011 Moderate dysplasia of cervix [N87.1] 01/13/2011 Symptomatic menopausal or female climacteric st*01/13/2011 Postmenopausal atrophic vaginitis [N95.2] 01/13/2011 Primary localized osteoarthrosis, lower leg [M1*01/31/2011 Abnormality of gait [R26.9] 04/20/2011 Knee pain [M25.569] 04/20/2011 Bipolar 1 disorder, mixed [F31.60] 08/23/2012 Tubular adenoma of colon [D12.6] 08/23/2012 Loose body in elbow joint [M24.029] 11/18/2012 Pain in joint, shoulder region [M25.519] 02/23/2014 Unspecified arthropathy, shoulder region [M19.0*02/23/2014 Fracture of femur, intertrochanteric, right, cl*10/19/2015 06/29/2016 Displaced intertrochanteric fracture of right f*10/19/2015 06/29/2016 Hypothyroidism [E03.9] 06/29/2016 Vitamin D deficiency [E55.9] 06/29/2016 Aseptic necrosis of bone of hip, right (HCC) [M*06/06/2018 06/28/2018 Traumatic arthritis of hip, 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] 06/06/2018 06/28/2018 History of hip replacement, total, right [Z96.6*06/28/2018 Periprosthetic supracondylar fracture of femur *12/27/2018 Periprosthetic fracture around internal prosthe*01/24/2019 Presence of right artificial knee joint [Z96.65*01/24/2019 Anemia [D64.9] 06/16/2022 Diagnosed: 05/22/2023 Bipolar disorder, current episode depressed, mi*11/23/2020 Diagnosed: 05/22/2023 Chronic constipation [K59.09] 05/22/2023 Diagnosed: 05/22/2023 Dysphagia [R13.10] 05/22/2023 Diagnosed: 05/22/2023 Endometriosis of other specified sites [N80.8] 05/22/2023 Diagnosed: 05/22/2023 Fracture dislocation of hip joint (HCC) [S72.00*05/22/2023 Diagnosed: 05/22/2023 Fracture of neck of femur (HCC) [S72.009A] 06/16/2022 Diagnosed: 05/22/2023 Gastroesophageal reflux disease [K21.9] 05/22/2023 Diagnosed: 05/22/2023 History of alcohol abuse [F10.11] 05/22/2023 Diagnosed: 05/22/2023 History of manic depressive disorder [Z86.59 (more content not included)... Normal [facility] CNCOon 08-07-2024 CNCO Letter Text Normal [facility] CNPNon 07-30-2024 [facility] KENYATTA CARRILLO ([id number]) 1960 F Date Time Provider Department 07/30/24 KORTNEY, NAYE J FAMPWS During your visit today, we recorded the following information about you: Kimberly Sanchez RN 07/30/2024 11:56 AM Signed Selene Swenson DYLAN from [facility] calls and states that she faxed over discharge paperwork from [facility] on Sunday07/28/2024. Selene reports that she faxed over what patient needs done for labs today 07/31/2023. Selene asking if these lab orders can be placed for patient to get after patient's appointment with [facility] tomorrow. Selene has tried everything to make sure that patient makes appointment tomorrow. Selene is calling and reminding patient of appointment as well as setting up transportation for appointment. Patient currently is living at apartment she had prior to stay at [facility]. Patient was told that she has to find somewhere else new to stay by 08/12. Selene worked with patient on 5 housing applications. Because of patient having to move at the end of month, Home health orders were never ordered. Selene asking if provider can write these orders after seeing patient tomorrow? Selene had all medication sent to [facility] including nebulizer and nebulizer solutions. Selene reports that [facility] did not have nebulizer machine. Provider may have to write order for this as well. Selene aware that patient had declined [facility]. Caregivers would not help her to move so she declined services. Selene tried to explain to patient that Caregivers could help her with nursing things such as dressing changes and picking up medications and that patient should not have declined services. KYLIE Hancock Tara, LPN 07/30/2024 12:57 PM Signed We did receive this fax. Patient has not been seen here since 10/2022 so if patient doesn't come to visit we will not be able to give any orders for her. Edna Sales MA 07/31/2024 5:12 PM Signed Patient canceled visit and rescheduled for next week. Allergies As of Date: 07/30/2024 Noted Allergy Reaction AMOXIL (AMOXICILLIN) 11/23/2021 2 - Rash Comments: Face and neck 06/2024: Appears to be tolerating Zosyn. Date Reviewed: 06/27/2024 Reviewed by: Swinehart, Teri, RN - Fully Assessed Reason for Visit: Patient Update [1234] Prescriptions as of 08/06/2024 - calcium carbonate (TUMS) 500 mg chew Take 1 tablet by mouth two times a day as needed. - venlafaxine ER (EFFEXOR XR) 37.5 mg 24 hr capsule Take 1 capsule by mouth daily with breakfast. - prednisoLONE sodium phosphate (ORAPRED) 15 mg/5 mL (3 mg/mL) oral liquid Take 13.3 mL by mouth once daily. Follow-up with your windows vmware administrator to decide on tapering down do not stop abruptly without plan for discontinuation with your windows vmware administrator - pantoprazole DR (PROTONIX) 40 mg tablet Take 1 tablet by mouth two times a day. - zinc oxide 20 % ointment Apply to affected area as needed. - thiamine (VITAMIN B1) 100 mg tablet 1 tablet by ORAL/FEEDING TUBE route once daily. - Magnesium Glycinate (MAG GLYCINATE) 100 mg tab Take 1 tablet by mouth two times a day. - benzonatate (TESSALON PERLES) 100 mg capsule Take 1 capsule by mouth three times daily as needed. - cyanocobalamin 1,000 mcg/mL Inject 1 mL intramuscularly once every month. - folic acid 1 mg tablet Take 1 tablet by mouth once daily. - ferrous sulfate 325 mg (65 mg iron) tablet Take 1 tablet by mouth twice daily with meals. Problem List As Of Date 07/30/2024 Noted Resolved Arthritis of knee [M17.10] 01/03/2011 Urgency of urination [R39.15] 01/13/2011 Female stress incontinence [N39.3] 01/13/2011 Urge incontinence [N39.41] 01/13/2011 Moderate dysplasia of cervix [N87.1] 01/13/2011 Symptomatic menopausal or female climacteric st*01/13/2011 Postmenopausal atrophic vaginitis [N95.2] 01/13/2011 Primary localized osteoarthrosis, lower leg [M1*01/31/2011 Abnormality of gait [R26.9] 04/20/2011 Knee pain [M25.569] 04/20/2011 Bipolar 1 disorder, mixed [F31.60] 08/23/2012 Tubular adenoma of colon [D12.6] 08/23/2012 Loose body in elbow joint [M24.029] 11/18/2012 Pain in joint, shoulder region [M25.519] 02/23/2014 Unspecified arthropathy, shoulder region [M19.0*02/23/2014 Fracture of femur, intertrochanteric, right, cl*10/19/2015 06/29/2016 Displaced intertrochanteric fracture of right f*10/19/2015 06/29/2016 Hypothyroidism [E03.9] 06/29/2016 Vitamin D deficiency [E55.9] 06/29/2016 Aseptic necrosis of bone of hip, right (HCC) [M*06/06/2018 06/28/2018 Traumatic arthritis of hip, 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] 06/06/2018 06/28/2018 History of hip replacement, total, right [Z96.6*06/28/2018 Periprosthetic supracondylar fracture of femur *12/27/2018 Periprosthetic fracture around internal prosthe*01/24/2019 Presence of right artificial knee joint [Z96.65*01/24/2019 Anemia [D64.9] 06/16/2022 Diagnosed (more content not included)... Normal [facility] 07-29-2024 [facility] Telephone ([facility]) -------- KENYATTA CARRILLO ([id number]) 1960 F Date Time Provider Department 07/29/24 DIANNE CABA During your visit today, we recorded the following information about you: Dianne Caba, ALESSANDRO 07/29/2024 1:50 PM Signed Sw received message from José Miguel [facility]as [facility]. She reports that patient came home this past Sunday from [facility]. [employer] when out today to reopen her case for assisted living home director assistance. Notes patient was vomiting when [facility] was out at home and did not have her medications. Patient is refusing home care assistance services from [employer]. José Miguel noted that she has called [facility] to update them on this issue. EVANS Martínez notes that she is calling to update Dr. Sheets as well with this information. José Miguel ph. [phone]. Naye Sheets MD 07/29/2024 2:05 PM Signed Ok. [facility]gree [facility] needs notified. Thanks Allergies As of Date: 07/29/2024 Noted Allergy Reaction AMOXIL (AMOXICILLIN) 11/23/2021 2 - Rash Comments: Face and neck 06/2024: Appears to be tolerating Zosyn. Date Reviewed: 06/27/2024 Reviewed by: Teri Aviles RN - Fully Assessed Reason for Visit: Patient Update [1234] Prescriptions as of 07/30/2024 - calcium carbonate (TUMS) 500 mg chew Take 1 tablet by mouth two times a day as needed. - venlafaxine ER (EFFEXOR XR) 37.5 mg 24 hr capsule Take 1 capsule by mouth daily with breakfast. - prednisoLONE sodium phosphate (ORAPRED) 15 mg/5 mL (3 mg/mL) oral liquid Take 13.3 mL by mouth once daily. Follow-up with your windows vmware administrator to decide on tapering down do not stop abruptly without plan for discontinuation with your windows vmware administrator - pantoprazole DR (PROTONIX) 40 mg tablet Take 1 tablet by mouth two times a day. - zinc oxide 20 % ointment Apply to affected area as needed. - thiamine (VITAMIN B1) 100 mg tablet 1 tablet by ORAL/FEEDING TUBE route once daily. - Magnesium Glycinate (MAG GLYCINATE) 100 mg tab Take 1 tablet by mouth two times a day. - benzonatate (TESSALON PERLES) 100 mg capsule Take 1 capsule by mouth three times daily as needed. - cyanocobalamin 1,000 mcg/mL Inject 1 mL intramuscularly once every month. - folic acid 1 mg tablet Take 1 tablet by mouth once daily. - ferrous sulfate 325 mg (65 mg iron) tablet Take 1 tablet by mouth twice daily with meals. Problem List As Of Date 07/29/2024 Noted Resolved Arthritis of knee [M17.10] 01/03/2011 Urgency of urination [R39.15] 01/13/2011 Female stress incontinence [N39.3] 01/13/2011 Urge incontinence [N39.41] 01/13/2011 Moderate dysplasia of cervix [N87.1] 01/13/2011 Symptomatic menopausal or female climacteric st*01/13/2011 Postmenopausal atrophic vaginitis [N95.2] 01/13/2011 Primary localized osteoarthrosis, lower leg [M1*01/31/2011 Abnormality of gait [R26.9] 04/20/2011 Knee pain [M25.569] 04/20/2011 Bipolar 1 disorder, mixed [F31.60] 08/23/2012 Tubular adenoma of colon [D12.6] 08/23/2012 Loose body in elbow joint [M24.029] 11/18/2012 Pain in joint, shoulder region [M25.519] 02/23/2014 Unspecified arthropathy, shoulder region [M19.0*02/23/2014 Fracture of femur, intertrochanteric, right, cl*10/19/2015 06/29/2016 Displaced intertrochanteric fracture of right f*10/19/2015 06/29/2016 Hypothyroidism [E03.9] 06/29/2016 Vitamin D deficiency [E55.9] 06/29/2016 Aseptic necrosis of bone of hip, right (HCC) [M*06/06/2018 06/28/2018 Traumatic arthritis of hip, 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] 06/06/2018 06/28/2018 History of hip replacement, total, right [Z96.6*06/28/2018 Periprosthetic supracondylar fracture of femur *12/27/2018 Periprosthetic fracture around internal prosthe*01/24/2019 Presence of right artificial knee joint [Z96.65*01/24/2019 Anemia [D64.9] 06/16/2022 Diagnosed: 05/22/2023 Bipolar disorder, current episode depressed, mi*11/23/2020 Diagnosed: 05/22/2023 Chronic constipation [K59.09] 05/22/2023 Diagnosed: 05/22/2023 Dysphagia [R13.10] 05/22/2023 Diagnosed: 05/22/2023 Endometriosis of other specified sites [N80.8] 05/22/2023 Diagnosed: 05/22/2023 Fracture dislocation of hip joint (HCC) [S72.00*05/22/2023 Diagnosed: 05/22/2023 Fracture of neck of femur (HCC) [S72.009A] 06/16/2022 Diagnosed: 05/22/2023 Gastroesophageal reflux disease [K21.9] 05/22/2023 Diagnosed: 05/22/2023 History of alcohol abuse [F10.11] 05/22/2023 Diagnosed: 05/22/2023 History of manic depressive disorder [Z86.59] 06/16/2022 Diagnosed: 05/22/2023 History of osteoarthritis [Z87.39] 05/22/2023 Diagnosed: 05/22/2023 History of disease [Z87.898] 05/22/2023 Diagnosed: 05/22/2023 Hypokalemia [E87.6] 06/16/2022 Diagnosed: 05/22/2023 Insomnia [G47.00] 08/13/2001 Diagnosed: 05/22/2023 Loss of consciousness ([facility]) [R40.20] 05/22/2023 Diagnosed: 05/22/2023 Major depressive disorder, recurrent, unspecifi*11/23/2020 Diagnose (more content not included)... Normal [facility] 07-28-2024 [facility] Telephone ([facility]AM[facility]) -------- KENYATTA CARRILLO ([id number]) 1960 F Date Time Provider Department 07/28/24 NAYE SHEETS [facility] During your visit today, we recorded the following information about you: Liseth Lockwood LPN 07/28/2024 6:45 PM Signed Patient not seen since 10/2022 we can't sign her orders for Lorenzo Topete. Allergies As of Date: 07/28/2024 Noted Allergy Reaction AMOXIL (AMOXICILLIN) 11/23/2021 2 - Rash Comments: Face and neck 06/2024: Appears to be tolerating Zosyn. Date Reviewed: 06/27/2024 Reviewed by: Swinehart, Teri, RN - Fully Assessed Reason for Visit: FYI-No Action Needed [265] Prescriptions as of 07/28/2024 - calcium carbonate (TUMS) 500 mg chew Take 1 tablet by mouth two times a day as needed. - venlafaxine ER (EFFEXOR XR) 37.5 mg 24 hr capsule Take 1 capsule by mouth daily with breakfast. - prednisoLONE sodium phosphate (ORAPRED) 15 mg/5 mL (3 mg/mL) oral liquid Take 13.3 mL by mouth once daily. Follow-up with your windows vmware administrator to decide on tapering down do not stop abruptly without plan for discontinuation with your windows vmware administrator - pantoprazole DR (PROTONIX) 40 mg tablet Take 1 tablet by mouth two times a day. - zinc oxide 20 % ointment Apply to affected area as needed. - thiamine (VITAMIN B1) 100 mg tablet 1 tablet by ORAL/FEEDING TUBE route once daily. - Magnesium Glycinate (MAG GLYCINATE) 100 mg tab Take 1 tablet by mouth two times a day. - benzonatate (TESSALON PERLES) 100 mg capsule Take 1 capsule by mouth three times daily as needed. - cyanocobalamin 1,000 mcg/mL Inject 1 mL intramuscularly once every month. - folic acid 1 mg tablet Take 1 tablet by mouth once daily. - ferrous sulfate 325 mg (65 mg iron) tablet Take 1 tablet by mouth twice daily with meals. Problem List As Of Date 07/28/2024 Noted Resolved Arthritis of knee [M17.10] 01/03/2011 Urgency of urination [R39.15] 01/13/2011 Female stress incontinence [N39.3] 01/13/2011 Urge incontinence [N39.41] 01/13/2011 Moderate dysplasia of cervix [N87.1] 01/13/2011 Symptomatic menopausal or female climacteric st*01/13/2011 Postmenopausal atrophic vaginitis [N95.2] 01/13/2011 Primary localized osteoarthrosis, lower leg [M1*01/31/2011 Abnormality of gait [R26.9] 04/20/2011 Knee pain [M25.569] 04/20/2011 Bipolar 1 disorder, mixed [F31.60] 08/23/2012 Tubular adenoma of colon [D12.6] 08/23/2012 Loose body in elbow joint [M24.029] 11/18/2012 Pain in joint, shoulder region [M25.519] 02/23/2014 Unspecified arthropathy, shoulder region [M19.0*02/23/2014 Fracture of femur, intertrochanteric, right, cl*10/19/2015 06/29/2016 Displaced intertrochanteric fracture of right f*10/19/2015 06/29/2016 Hypothyroidism [E03.9] 06/29/2016 Vitamin D deficiency [E55.9] 06/29/2016 Aseptic necrosis of bone of hip, right (HCC) [M*06/06/2018 06/28/2018 Traumatic arthritis of hip, 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] 06/06/2018 06/28/2018 History of hip replacement, total, right [Z96.6*06/28/2018 Periprosthetic supracondylar fracture of femur *12/27/2018 Periprosthetic fracture around internal prosthe*01/24/2019 Presence of right artificial knee joint [Z96.65*01/24/2019 Anemia [D64.9] 06/16/2022 Diagnosed: 05/22/2023 Bipolar disorder, current episode depressed, mi*11/23/2020 Diagnosed: 05/22/2023 Chronic constipation [K59.09] 05/22/2023 Diagnosed: 05/22/2023 Dysphagia [R13.10] 05/22/2023 Diagnosed: 05/22/2023 Endometriosis of other specified sites [N80.8] 05/22/2023 Diagnosed: 05/22/2023 Fracture dislocation of hip joint (HCC) [S72.00*05/22/2023 Diagnosed: 05/22/2023 Fracture of neck of femur (HCC) [S72.009A] 06/16/2022 Diagnosed: 05/22/2023 Gastroesophageal reflux disease [K21.9] 05/22/2023 Diagnosed: 05/22/2023 History of alcohol abuse [F10.11] 05/22/2023 Diagnosed: 05/22/2023 History of manic depressive disorder [Z86.59] 06/16/2022 Diagnosed: 05/22/2023 History of osteoarthritis [Z87.39] 05/22/2023 Diagnosed: 05/22/2023 History of disease [Z87.898] 05/22/2023 Diagnosed: 05/22/2023 Hypokalemia [E87.6] 06/16/2022 Diagnosed: 05/22/2023 Insomnia [G47.00] 08/13/2001 Diagnosed: 05/22/2023 Loss of consciousness (HCC) [R40.20] 05/22/2023 Diagnosed: 05/22/2023 Major depressive disorder, recurrent, unspecifi*11/23/2020 Diagnosed: 05/22/2023 Nausea with vomiting [R11.2] 08/13/2001 Diagnosed: 05/22/2023 Osteopenia [M85.80] 05/22/2023 Diagnosed: 05/22/2023 Alcoholism (HCC) [F10.20] 05/22/2023 Diagnosed: 05/22/2023 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] 11/09/2003 Diagnosed: 05/22/2023 Other anxiety states [F41.1] 05/22/2023 Diagnosed: 05/22/2023 Other malaise [R53.81] 11/22/2020 Diagnosed: 05/22/2023 Other physical therapy [[id number]] 02/02/2003 Diagnosed: 05/22/2023 Pain in right hip [M25.551] 11/23/2020 Diagnosed: 05/22/2023 Polyp of colon [K63.5] 05/22/2023 Diagnosed: (more content not included)... Normal [facility] Gastroenterology Visit Repor ton 07-23-2024 Gastroenterology Visit Report [facility] Gastroenterology [address] [place] [address] OFFICE VISIT Date of Service: 07/23/24 MR#: [id number] Acct: [id number] Name: KENYATTA CARRILLO Rep #: [id number] : 1960 Provider: Dr. Jerry huitron MD Age/Sex: 63/F Location: [facility] [place] Status: Signed Intake Vital Signs 06/13/24 15:45 07/23/24 12:44 Height 6 ft 6 ft Weight: 189 lb BMI 25.6 BP 150/87 H Blood Pressure Location Lt brachial Position Sitting Respiration 16 Pulse 97 Pulse Source Monitor Temp 98.4 F Temp Source Oral Pulse Oximetry (%) 96 Oxygen Delivery Method room air Intake Visit Reasons: ER FU Chief Complaint: ED FU GI BLEED Training And Development Assistant Required: No Accompanied by: Caregiver Is patient in pain?: Yes (THROAT AND MOUTH) Pain scale (1-10): 6 Allergies amoxicillin Allergy (Intermediate, Verified 07/23/24 12:36) Swelling, itching Medications ???Medication ???Instructions ???Recorded ???Confirmed ???Type acetaminophen 160 mg/5 mL oral 640 mg PO Q6H PRN 07/23/24 5 History liquid calcium carbonate (Tums) 200 mg PO BID PRN 07/23/24 5 History cholecalciferol (vitamin D3) 1,250 1,250 mcg PO 2XW 07/23/24 History mcg (50,000 unit) capsule cyanocobalamin (vitamin B-12) 1,000 mcg IM QMONTH 07/23/2407/23 History 1,000 mcg/mL injection solution folic acid 1 mg tablet 1 mg PO QDAY 07/23/24 07/23/24 His tory ipratropium 0.5 mg-albuterol 3 mg 3 ml inhalation Q4H PRN 07/23/24 07/23/24 History (2.5 mg base)/3 mL nebulization soln lidocaine 4 % topical gel 1 applic topical HS 07/23/2407/23 History magnesium glycinate 100 mg (as 100 mg PO BID 07/23/24 07/23/24 Hi story glycinate) tablet (Mag Glycinate) magnesium oxide 400 mg PO QDAY 07/23/24 07/23/24 H istory pantoprazole 40 mg tablet,delayed 40 mg PO BID GERD 07/23/24 History release prednisone 50 mg tablet 50 mg PO QDAY 07/23/24 07/23/24 Hi story thiamine HCl (vitamin B1) 100 mg 100 mg PO QDAY 07/23/24 07/23/24 H istory tablet venlafaxine 37.5 mg 37.5 mg PO QDAY 07/23/24 07/23/24 History capsule,extended release 24 hr zinc oxide 20 % topical paste 1 ea topical Q8H PRN 07/23/2407/12 History Have you fallen in the past year?: No PFSH Medical History Difficulty walking Urge incontinence Acute cystitis with hematuria Muscle weakness Osteoarthritis Alcoholic hepatitis Alcoholic liver disease Acute respiratory failure with hypoxia Metabolic encephalopathy Major depression Protein calorie malnutrition Acute post-hemorrhagic anemia Dysphagia, oropharyngeal phase Malignant neoplasm of colon Ulcer Restless legs Injury of head and neck Anemia Alcohol abuse Bipolar disorder Hypothyroidism Osteoporosis Kidney stones GERD (gastroesophageal reflux disease) GI bleed Former smoker Surgical History History of total knee arthroplasty History of right hip replacement H/O total hysterectomy Family History (Updated 07/23/24 @ 13:[address] Jerry Lopez MD) Other Alcoholic hepatitis Social History Smoking Status: Former smoker alcohol intake: former substance use type: does not use HPI HPI Chief Complaint: ED FU GI BLEED Details: KENYATTA CARRILLO, is a 63 F who presents to the office today for ED FU GI BLEED History of anemia, alcohol abuse, bipolar 05/2024- Transferred from [facility] to [facility] for GI bleed. Blood clots in emesis. OV 3..- No alcohol in last 2 months. Reports long history of vomiting. Patient came to [facility] ED in shock state, systolic blood pressure 70, blood clots in his stool, dark blood and vomiting and body was found in his stool on the floor. Resides at [facility]. Mechanical soft diet. 3 weeks ago emesis multiple times for one day. c/o difficulty swallowing, throat feels swollen mouth and throat burning for the last week. ROS Const Constitutional: Positive for fatigue, headache(s) and weakness (BLE); No fever(s), frequent falls or weight change ENT ENT: Positive for headache(s) and difficulty swallowing Resp Respiratory: No shortness of breath or wheezing Cardio Cardiology: No leg pain with exertion Gastro GI: Positive for bloating, heartburn and difficulty swallowing; No abdominal pain, change in bowel habits, constipation, diarrhea, excessive flatus, Vomiting blood/hematemesis, Blood in stool, nausea/dyspepsia or vomiting Genitourinary-Female: No difficulty urinating or burning urination Musc Musculoskeletal: Positive for back pain and muscle weakness; No joint pain, joint swelling, muscle cramps, numbness, stiffness, tingling, Arthritis, sci (more content not included)... Normal [facility] 07-17-2024 CNPN Telephone (PODCCP) -------- KENYATTA CARRILLO ([id number]) 1960 F Date Time Provider Department 07/17/24 NAYE SHEETS [facility] During your visit today, we recorded the following information about you: Alexy Newsome 07/17/2024 10:03 AM Signed Patient is an exclusion from post discharge call back program ([facility]) Allergies As of Date: 07/17/2024 Noted Allergy Reaction AMOXIL (AMOXICILLIN) 11/23/2021 2 - Rash Comments: Face and neck 06/2024: Appears to be tolerating Zosyn. Date Reviewed: 06/27/2024 Reviewed by: Teri Aviles RN - Fully Assessed Reason for Visit: Transition Of Care [4074] Cmt: Exclusion (SNF) Prescriptions as of 07/17/2024 - calcium carbonate (TUMS) 500 mg chew Take 1 tablet by mouth two times a day as needed. - venlafaxine ER (EFFEXOR XR) 37.5 mg 24 hr capsule Take 1 capsule by mouth daily with breakfast. - prednisoLONE sodium phosphate (ORAPRED) 15 mg/5 mL (3 mg/mL) oral liquid Take 13.3 mL by mouth once daily. Follow-up with your windows vmware administrator to decide on tapering down do not stop abruptly without plan for discontinuation with your windows vmware administrator - pantoprazole DR (PROTONIX) 40 mg tablet Take 1 tablet by mouth two times a day. - zinc oxide 20 % ointment Apply to affected area as needed. - thiamine (VITAMIN B1) 100 mg tablet 1 tablet by ORAL/FEEDING TUBE route once daily. - Magnesium Glycinate (MAG GLYCINATE) 100 mg tab Take 1 tablet by mouth two times a day. - benzonatate (TESSALON PERLES) 100 mg capsule Take 1 capsule by mouth three times daily as needed. - cyanocobalamin 1,000 mcg/mL Inject 1 mL intramuscularly once every month. - folic acid 1 mg tablet Take 1 tablet by mouth once daily. - ferrous sulfate 325 mg (65 mg iron) tablet Take 1 tablet by mouth twice daily with meals. Problem List As Of Date 07/17/2024 Noted Resolved Arthritis of knee [M17.10] 01/03/2011 Urgency of urination [R39.15] 01/13/2011 Female stress incontinence [N39.3] 01/13/2011 Urge incontinence [N39.41] 01/13/2011 Moderate dysplasia of cervix [N87.1] 01/13/2011 Symptomatic menopausal or female climacteric st*01/13/2011 Postmenopausal atrophic vaginitis [N95.2] 01/13/2011 Primary localized osteoarthrosis, lower leg [M1*01/31/2011 Abnormality of gait [R26.9] 04/20/2011 Knee pain [M25.569] 04/20/2011 Bipolar 1 disorder, mixed [F31.60] 08/23/2012 Tubular adenoma of colon [D12.6] 08/23/2012 Loose body in elbow joint [M24.029] 11/18/2012 Pain in joint, shoulder region [M25.519] 02/23/2014 Unspecified arthropathy, shoulder region [M19.0*02/23/2014 Fracture of femur, intertrochanteric, right, cl*10/19/2015 06/29/2016 Displaced intertrochanteric fracture of right f*10/19/2015 06/29/2016 Hypothyroidism [E03.9] 06/29/2016 Vitamin D deficiency [E55.9] 06/29/2016 Aseptic necrosis of bone of hip, right (HCC) [M*06/06/2018 06/28/2018 Traumatic arthritis of hip, 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] 06/06/2018 06/28/2018 History of hip replacement, total, right [Z96.6*06/28/2018 Periprosthetic supracondylar fracture of femur *12/27/2018 Periprosthetic fracture around internal prosthe*01/24/2019 Presence of right artificial knee joint [Z96.65*01/24/2019 Anemia [D64.9] 06/16/2022 Diagnosed: 05/22/2023 Bipolar disorder, current episode depressed, mi*11/23/2020 Diagnosed: 05/22/2023 Chronic constipation [K59.09] 05/22/2023 Diagnosed: 05/22/2023 Dysphagia [R13.10] 05/22/2023 Diagnosed: 05/22/2023 Endometriosis of other specified sites [N80.8] 05/22/2023 Diagnosed: 05/22/2023 Fracture dislocation of hip joint (HCC) [S72.00*05/22/2023 Diagnosed: 05/22/2023 Fracture of neck of femur (HCC) [S72.009A] 06/16/2022 Diagnosed: 05/22/2023 Gastroesophageal reflux disease [K21.9] 05/22/2023 Diagnosed: 05/22/2023 History of alcohol abuse [F10.11] 05/22/2023 Diagnosed: 05/22/2023 History of manic depressive disorder [Z86.59] 06/16/2022 Diagnosed: 05/22/2023 History of osteoarthritis [Z87.39] 05/22/2023 Diagnosed: 05/22/2023 History of disease [Z87.898] 05/22/2023 Diagnosed: 05/22/2023 Hypokalemia [E87.6] 06/16/2022 Diagnosed: 05/22/2023 Insomnia [G47.00] 08/13/2001 Diagnosed: 05/22/2023 Loss of consciousness (HCC) [R40.20] 05/22/2023 Diagnosed: 05/22/2023 Major depressive disorder, recurrent, unspecifi*11/23/2020 Diagnosed: 05/22/2023 Nausea with vomiting [R11.2] 08/13/2001 Diagnosed: 05/22/2023 Osteopenia [M85.80] 05/22/2023 Diagnosed: 05/22/2023 Alcoholism (HCC) [F10.20] 05/22/2023 Diagnosed: 05/22/2023 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] 11/09/2003 Diagnosed: 05/22/2023 Other anxiety states [F41.1] 05/22/2023 Diagnosed: 05/22/2023 Other malaise [R53.81] 11/22/2020 Diagnosed: 05/22/2023 Other physical therapy [[id number]] 02/02/2003 Diagnosed: 05/22/2023 Pain in right hip [M25.551] 11/23/2020 Diagnosed: 05/22/2023 Polyp of colon (more content not included)... Normal [facility] CNPNon 07-08-2024 CNPN Telephone (PODCCP) -------- KENYATTA CARRILLO ([id number]) 1960 F Date Time Provider Department 07/08/24 NAYE SHEETS PODCCP During your visit today, we recorded the following information about you: Karolina Larsen 07/08/2024 3:35 PM Signed Patient is an exclusion from post discharge call back program for discharge date of 06/28/2024. ([facility]) Allergies As of Date: 07/08/2024 Noted Allergy Reaction AMOXIL (AMOXICILLIN) 11/23/2021 2 - Rash Comments: Face and neck 06/2024: Appears to be tolerating Zosyn. Date Reviewed: 06/27/2024 Reviewed by: Teri Aviles RN - Fully Assessed Reason for Visit: Transition Of Care [4074] Prescriptions as of 07/08/2024 - calcium carbonate (TUMS) 500 mg chew Take 1 tablet by mouth two times a day as needed. - venlafaxine ER (EFFEXOR XR) 37.5 mg 24 hr capsule Take 1 capsule by mouth daily with breakfast. - prednisoLONE sodium phosphate (ORAPRED) 15 mg/5 mL (3 mg/mL) oral liquid Take 13.3 mL by mouth once daily. Follow-up with your windows vmware administrator to decide on tapering down do not stop abruptly without plan for discontinuation with your windows vmware administrator - pantoprazole DR (PROTONIX) 40 mg tablet Take 1 tablet by mouth two times a day. - zinc oxide 20 % ointment Apply to affected area as needed. - thiamine (VITAMIN B1) 100 mg tablet 1 tablet by ORAL/FEEDING TUBE route once daily. - Magnesium Glycinate (MAG GLYCINATE) 100 mg tab Take 1 tablet by mouth two times a day. - benzonatate (TESSALON PERLES) 100 mg capsule Take 1 capsule by mouth three times daily as needed. - cyanocobalamin 1,000 mcg/mL Inject 1 mL intramuscularly once every month. - folic acid 1 mg tablet Take 1 tablet by mouth once daily. - ferrous sulfate 325 mg (65 mg iron) tablet Take 1 tablet by mouth twice daily with meals. Problem List As Of Date 07/08/2024 Noted Resolved Arthritis of knee [M17.10] 01/03/2011 Urgency of urination [R39.15] 01/13/2011 Female stress incontinence [N39.3] 01/13/2011 Urge incontinence [N39.41] 01/13/2011 Moderate dysplasia of cervix [N87.1] 01/13/2011 Symptomatic menopausal or female climacteric st*01/13/2011 Postmenopausal atrophic vaginitis [N95.2] 01/13/2011 Primary localized osteoarthrosis, lower leg [M1*01/31/2011 Abnormality of gait [R26.9] 04/20/2011 Knee pain [M25.569] 04/20/2011 Bipolar 1 disorder, mixed [F31.60] 08/23/2012 Tubular adenoma of colon [D12.6] 08/23/2012 Loose body in elbow joint [M24.029] 11/18/2012 Pain in joint, shoulder region [M25.519] 02/23/2014 Unspecified arthropathy, shoulder region [M19.0*02/23/2014 Fracture of femur, intertrochanteric, right, cl*10/19/2015 06/29/2016 Displaced intertrochanteric fracture of right f*10/19/2015 06/29/2016 Hypothyroidism [E03.9] 06/29/2016 Vitamin D deficiency [E55.9] 06/29/2016 Aseptic necrosis of bone of hip, right (HCC) [M*06/06/2018 06/28/2018 Traumatic arthritis of hip, 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] 06/06/2018 06/28/2018 History of hip replacement, total, right [Z96.6*06/28/2018 Periprosthetic supracondylar fracture of femur *12/27/2018 Periprosthetic fracture around internal prosthe*01/24/2019 Presence of right artificial knee joint [Z96.65*01/24/2019 Anemia [D64.9] 06/16/2022 Diagnosed: 05/22/2023 Bipolar disorder, current episode depressed, mi*11/23/2020 Diagnosed: 05/22/2023 Chronic constipation [K59.09] 05/22/2023 Diagnosed: 05/22/2023 Dysphagia [R13.10] 05/22/2023 Diagnosed: 05/22/2023 Endometriosis of other specified sites [N80.8] 05/22/2023 Diagnosed: 05/22/2023 Fracture dislocation of hip joint (HCC) [S72.00*05/22/2023 Diagnosed: 05/22/2023 Fracture of neck of femur (HCC) [S72.009A] 06/16/2022 Diagnosed: 05/22/2023 Gastroesophageal reflux disease [K21.9] 05/22/2023 Diagnosed: 05/22/2023 History of alcohol abuse [F10.11] 05/22/2023 Diagnosed: 05/22/2023 History of manic depressive disorder [Z86.59] 06/16/2022 Diagnosed: 05/22/2023 History of osteoarthritis [Z87.39] 05/22/2023 Diagnosed: 05/22/2023 History of disease [Z87.898] 05/22/2023 Diagnosed: 05/22/2023 Hypokalemia [E87.6] 06/16/2022 Diagnosed: 05/22/2023 Insomnia [G47.00] 08/13/2001 Diagnosed: 05/22/2023 Loss of consciousness (HCC) [R40.20] 05/22/2023 Diagnosed: 05/22/2023 Major depressive disorder, recurrent, unspecifi*11/23/2020 Diagnosed: 05/22/2023 Nausea with vomiting [R11.2] 08/13/2001 Diagnosed: 05/22/2023 Osteopenia [M85.80] 05/22/2023 Diagnosed: 05/22/2023 Alcoholism (HCC) [F10.20] 05/22/2023 Diagnosed: 05/22/2023 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 Normal [facility] CNPNon 07-01-2024 CNPN Telephone (PODCCP) -------- KENYATTA CARRILLO ([id number]) 1960 F Date Time Provider Department 07/01/24 NAYE SHEETS PODCCP During your visit today, we recorded the following information about you: Susi Patterson 07/01/2024 11:34 AM Signed Patient is an exclusion from post discharge call back program for discharge date of 06/28/2024. ([facility]) Allergies As of Date: 07/01/2024 Noted Allergy Reaction AMOXIL (AMOXICILLIN) 11/23/2021 2 - Rash Comments: Face and neck 06/2024: Appears to be tolerating Zosyn. Date Reviewed: 06/27/2024 Reviewed by: Teri Aviles, KYLIE - Fully Assessed Reason for Visit: Transition Of Care [4074] Prescriptions as of 07/01/2024 - calcium carbonate (TUMS) 500 mg chew Take 1 tablet by mouth two times a day as needed. - venlafaxine ER (EFFEXOR XR) 37.5 mg 24 hr capsule Take 1 capsule by mouth daily with breakfast. - prednisoLONE sodium phosphate (ORAPRED) 15 mg/5 mL (3 mg/mL) oral liquid Take 13.3 mL by mouth once daily. Follow-up with your windows vmware administrator to decide on tapering down do not stop abruptly without plan for discontinuation with your windows vmware administrator - pantoprazole DR (PROTONIX) 40 mg tablet Take 1 tablet by mouth two times a day. - zinc oxide 20 % ointment Apply to affected area as needed. - thiamine (VITAMIN B1) 100 mg tablet 1 tablet by ORAL/FEEDING TUBE route once daily. - Magnesium Glycinate (MAG GLYCINATE) 100 mg tab Take 1 tablet by mouth two times a day. - benzonatate (TESSALON PERLES) 100 mg capsule Take 1 capsule by mouth three times daily as needed. - cyanocobalamin 1,000 mcg/mL Inject 1 mL intramuscularly once every month. - folic acid 1 mg tablet Take 1 tablet by mouth once daily. - ferrous sulfate 325 mg (65 mg iron) tablet Take 1 tablet by mouth twice daily with meals. Problem List As Of Date 07/01/2024 Noted Resolved Arthritis of knee [M17.10] 01/03/2011 Urgency of urination [R39.15] 01/13/2011 Female stress incontinence [N39.3] 01/13/2011 Urge incontinence [N39.41] 01/13/2011 Moderate dysplasia of cervix [N87.1] 01/13/2011 Symptomatic menopausal or female climacteric st*01/13/2011 Postmenopausal atrophic vaginitis [N95.2] 01/13/2011 Primary localized osteoarthrosis, lower leg [M1*01/31/2011 Abnormality of gait [R26.9] 04/20/2011 Knee pain [M25.569] 04/20/2011 Bipolar 1 disorder, mixed [F31.60] 08/23/2012 Tubular adenoma of colon [D12.6] 08/23/2012 Loose body in elbow joint [M24.029] 11/18/2012 Pain in joint, shoulder region [M25.519] 02/23/2014 Unspecified arthropathy, shoulder region [M19.0*02/23/2014 Fracture of femur, intertrochanteric, right, cl*10/19/2015 06/29/2016 Displaced intertrochanteric fracture of right f*10/19/2015 06/29/2016 Hypothyroidism [E03.9] 06/29/2016 Vitamin D deficiency [E55.9] 06/29/2016 Aseptic necrosis of bone of hip, right (HCC) [M*06/06/2018 06/28/2018 Traumatic arthritis of hip, 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] 06/06/2018 06/28/2018 History of hip replacement, total, right [Z96.6*06/28/2018 Periprosthetic supracondylar fracture of femur *12/27/2018 Periprosthetic fracture around internal prosthe*01/24/2019 Presence of right artificial knee joint [Z96.65*01/24/2019 Anemia [D64.9] 06/16/2022 Diagnosed: 05/22/2023 Bipolar disorder, current episode depressed, mi*11/23/2020 Diagnosed: 05/22/2023 Chronic constipation [K59.09] 05/22/2023 Diagnosed: 05/22/2023 Dysphagia [R13.10] 05/22/2023 Diagnosed: 05/22/2023 Endometriosis of other specified sites [N80.8] 05/22/2023 Diagnosed: 05/22/2023 Fracture dislocation of hip joint (HCC) [S72.00*05/22/2023 Diagnosed: 05/22/2023 Fracture of neck of femur (HCC) [S72.009A] 06/16/2022 Diagnosed: 05/22/2023 Gastroesophageal reflux disease [K21.9] 05/22/2023 Diagnosed: 05/22/2023 History of alcohol abuse [F10.11] 05/22/2023 Diagnosed: 05/22/2023 History of manic depressive disorder [Z86.59] 06/16/2022 Diagnosed: 05/22/2023 History of osteoarthritis [Z87.39] 05/22/2023 Diagnosed: 05/22/2023 History of disease [Z87.898] 05/22/2023 Diagnosed: 05/22/2023 Hypokalemia [E87.6] 06/16/2022 Diagnosed: 05/22/2023 Insomnia [G47.00] 08/13/2001 Diagnosed: 05/22/2023 Loss of consciousness (HCC) [R40.20] 05/22/2023 Diagnosed: 05/22/2023 Major depressive disorder, recurrent, unspecifi*11/23/2020 Diagnosed: 05/22/2023 Nausea with vomiting [R11.2] 08/13/2001 Diagnosed: 05/22/2023 Osteopenia [M85.80] 05/22/2023 Diagnosed: 05/22/2023 Alcoholism (HCC) [F10.20] 05/22/2023 Diagnosed: 05/22/2023 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 Normal [facility] CASE MANAGEMon 06-28-2024 CASE MANAGEM Normal [facility] CASE MANAGEM Normal [facility] CBC panel Auto (Bld)on 06-28 Erythrocyte distribution width (RBC) [Ratio] 20.0 % High 11.5-15.0 [facility] Comment on above: Order Comment: Speci men Type: BLOOD SPECIMENOrdering Facility: [facility] Address: [address] [place] [address] Performed By: #### 5 8410-2 ####[facility] LABORATORYCLIA [id number] [address] [place] Hematocrit (Bld) [Volume fraction] 30.1 % Low 36.0-46.0 [facility] Comment on above: Order Comment: Speci men Type: BLOOD SPECIMENOrdering Facility: [facility] Address: [address] [place] [address] Performed By: #### 5 8410-2 ####[facility] LABORATORYCLIA [id number] [place] [address] [place] Hemoglobin (Bld) [Mass/Vol] 10.0 g/dL Low 11.5-15.5 [facility] Comment on above: Order Comment: Speci men Type: BLOOD SPECIMENOrdering Facility: [facility] Address: [address] [place] [address] Performed By: #### 5 8410-2 ####[facility]ORATORYCLIA [id number] [address] MCH (RBC) [Entitic mass] 32.8 pg Normal 26.0-34.0 [facility] Comment on above: Order Comment: Speci men Type: BLOOD SPECIMENOrdering Facility: [facility] Address: [address] [place] [address] Performed By: #### 5 8410-2 ####[facility]ORYCLIA [id number] [address] MCHC (RBC) [Mass/Vol] 33.2 g/dL Normal 30.5-36.0 [facility] Comment on above: Order Comment: Speci men Type: BLOOD SPECIMENOrdering Facility: [facility] Address: [address] [place] [address] Performed By: #### 5 8410-2 ####[facility] LABORATORYCLIA [id number] [address] MCV (RBC) [Entitic vol] 98.7 fL Normal 80.0-100.0 [facility] Comment on above: Order Comment: Speci men Type: BLOOD SPECIMENOrdering Facility: [facility] Address: [address] [place] [address] Performed By: #### 5 8410-2 ####[facility] LABORATORYCLIA [id number] [address] Nucleated RBC (Bld) [#/Vol] 10*3/uL Normal <0.01 [facility] Comment on above: Order Comment: Speci men Type: BLOOD SPECIMENOrdering Facility: [facility] Address: [address] [place] [address] Performed By: #### 5 8410-2 ####[facility] LABORATORYCLIA [id number] [place] [address] [place] Platelet mean volume (Bld) [Entitic vol] 9.9 fL Normal 9.0-12.7 [facility] Comment on above: Order Comment: Speci men Type: BLOOD SPECIMENOrdering Facility: [facility] Address: [address] [place] [address] Performed By: #### 5 8410-2 ####[facility] LABORATORYCLIA [id number] [place] [address] [place] Platelets (Bld) [#/Vol] 251 10*3/uL Normal 150-400 [facility] Comment on above: Order Comment: Speci men Type: BLOOD SPECIMENOrdering Facility: [facility] Address: [address] [place] [address] Performed By: #### 5 8410-2 ####[facility] LABORATORYCLIA [id number] [address] [place] RBC (Bld) [#/Vol] 3.05 10*6/uL Low 3.90-5.20 [facility] Comment on above: Order Comment: Speci men Type: BLOOD SPECIMENOrdering Facility: [facility] Address: [address] [place] [address] Performed By: #### 5 8410-2 ####[facility] LABORATORYCLIA [id number] [address] [place] WBC (Bld) [#/Vol] 11.46 10*3/uL High 3.70-11.00 [facility] Comment on above: Order Comment: Speci men Type: BLOOD SPECIMENOrdering Facility: [facility] Address: [address] [place] [address] Performed By: #### 5 8410-2 ####[facility] LABORATORYCLIA [id number] [address] [place] CNDSon 06-28-2024 CNDS Normal [facility] Comprehensive metabolic 2000 panelon 06-28-2024 Albumin [Mass/Vol] 2.6 g/dL Low 3.9-4.9 [facility] Comment on above: Order Comment: Speci men Type: BLOOD SPECIMENOrdering Facility: [facility] Address: [address] [place] [address] Performed By: #### 2 4323-8, 2776-05, ####[facility] LABORATORYCLIA [id number] [address] STATES OF [facility] ALP [Catalytic activity/Vol] 284 U/L High 34-123 [facility] Comment on above: Order Comment: Speci men Type: BLOOD SPECIMENOrdering Facility: [facility] Address: [address] [place] [address] Performed By: #### 2 4323-8, 2776-05, ####[facility] LABORATORYCLIA [id number] [address] STATES OF [facility] ALT With P-5'-P [Catalytic activity/Vol] 37 U/L Normal 7-38 [facility] Comment on above: Order Comment: Speci men Type: BLOOD SPECIMENOrdering Facility: [facility] Address: [address] [place] [address] Performed By: #### 2 4323-8, 2776-05, ####[facility] LABORATORYCLIA [id number] [address] [place] Anion gap [Moles/Vol] 11 mmol/L Normal 8-15 [facility] Comment on above: Order Comment: Speci men Type: BLOOD SPECIMENOrdering Facility: [facility] Address: [address] [place] [address] Performed By: #### 2 4323-8, 2776-05, ####[facility] LABORATORYCLIA [id number] [place] [address] [place] AST With P-5'-P [Catalytic activity/Vol] 53 U/L High 13-35 [facility] Comment on above: Order Comment: Speci men Type: BLOOD SPECIMENOrdering Facility: [facility] Address: [address] [place] [address] Performed By: #### 2 4323-8, 2776-05, ####[facility]ORATORYCLIA [id number] [place] [address] [place] Bilirubin [Mass/Vol] 2.1 mg/dL High 0.2-1.3 [facility] Comment on above: Order Comment: Speci men Type: BLOOD SPECIMENOrdering Facility: [facility] Address: [address] [place] [address] Performed By: #### 2 4323-8, 2776-05, ####[facility] LABORATORYCLIA [id number] [place] [address] [place] Calcium [Mass/Vol] 7.9 mg/dL Low 8.5-10.2 [facility] Comment on above: Order Comment: Speci men Type: BLOOD SPECIMENOrdering Facility: [facility] Address: [address] [place] [address] Performed By: #### 2 4323-8, 2776-05, ####[facility] LABORATORYCLIA [id number] [place] [address] [place] Chloride [Moles/Vol] 103 mmol/L Normal 98-107 [facility] Comment on above: Order Comment: Speci men Type: BLOOD SPECIMENOrdering Facility: [facility] Address: [address] [place] [address] Performed By: #### 2 4323-8, 2776-05, ####[facility]ORATORYCLIA [id number] [place] [address] [place] CO2 [Moles/Vol] 19 mmol/L Low 22-30 [facility] Comment on above: Order Comment: Speci men Type: BLOOD SPECIMENOrdering Facility: [facility] Address: [address] [place] [address] Performed By: #### 2 4323-8, 2776-05, ####[facility]ORATORYCLIA [id number] [place] [address] [place] Creatinine [Mass/Vol] 0.54 mg/dL Low 0.58-0.96 [facility] Comment on above: Order Comment: Mady rivera Type: BLOOD SPECIMENOrdering Facility: [facility] Address: [address] [place] [id number] Performed By: #### 2 4323-8, 2777-1, ####[facility] LABORATORYCLIA [id number] [place] [id number] [facility] [place] Creatinine and Glomerular filtration rate.predicted panel (S/P/Bld) 102 mL/min/1.73m??? Normal >=60 [facility] Comment on above: Order Comment: Mady rivera Type: BLOOD SPECIMENOrdering Facility: [facility] Address: [address] [place] [address] Result Comment: Lily mated Glomerular Filtration Rate (eGFR) is calculated using the 2020 CKD-EPI creatinine equation. This equation utilizes serum creatinine, sex, and age as parameters. The creatinine assay has traceable calibration to isotope dilution-mass spectrometry. Refer to KDIGO guidelines for clinical interpretation. In patients with unstable renal function, e.g. those with acute kidney injury, the eGFR may not accurately reflect actual GFR. Performed By: #### 2 4323-8, 27711-11, ####[facility]ORATORYCLIA [id number] [place] [address] [place] Glucose [Mass/Vol] 105 mg/dL High 74-99 [facility] Comment on above: Order Comment: Mady rivera Type: BLOOD SPECIMENOrdering Facility: [facility] Address: [address] [place] [id number] Result Comment: The [place] [employer] (ADA) provides guidance for cutoff values for fasting glucose and random glucose. The ADA defines fasting as no caloric intake for at least 8 hours. Fasting plasma glucose results between 100 to 125 mg/dL indicate increased risk for diabetes (prediabetes).Fasting plasma glucose results greater than or equal to 126 mg/dL meet the criteria for diagnosis of diabetes. In the absence of unequivocal hyperglycemia, results should be confirmed by repeat testing. In a patient with classic symptoms of hyperglycemia or hyperglycemic crisis, random plasma glucose results greater than or equal to 200 mg/dL meet the criteria for diagnosis of diabetes.Reference: Standards of Medical Care in Diabetes 2016, [place] [employer]. Diabetes Care. 2016.39(Suppl 1). Performed By: #### 2 4323-8, 2776-05, ####[facility] LABORATORYCLIA [id number] [place] [address] [place] Potassium [Moles/Vol] 3.6 mmol/L Low 3.7-5.1 [facility] Comment on above: Order Comment: Speci men Type: BLOOD SPECIMENOrdering Facility: [facility] Address: [address] [place] [address] Performed By: #### 2 4323-8, 2776-05, ####[facility]ORATORYCLIA [id number] [place] [address] [place] Protein [Mass/Vol] 5.5 g/dL Low 6.3-8.0 [facility] Comment on above: Order Comment: Speci men Type: BLOOD SPECIMENOrdering Facility: [facility] Address: [address] [place] [address] Performed By: #### 2 4323-8, 2776-05, ####[facility]ORATORYCLIA [id number] [place] [address] [place] Sodium [Moles/Vol] 133 mmol/L Low 136-144 [facility] Comment on above: Order Comment: Speci men Type: BLOOD SPECIMENOrdering Facility: [facility] Address: [address] [place] [address] Performed By: #### 2 4323-8, 2776-05, ####[facility]ORATORYCLIA [id number] [place] [address] [place] Urea nitrogen [Mass/Vol] 9 mg/dL Normal 7-21 [facility] Comment on above: Order Comment: Speci men Type: BLOOD SPECIMENOrdering Facility: [facility] Address: [facility] [place] [address] Performed By: #### 2 4323-8, 2776-05, ####[facility]ORATORYCLIA [id number] [place] [address] [place] Magnesium SerPl-ncon 06-28 Magnesium [Mass/Vol] 1.3 mg/dL Low 1.7-2.3 [facility] Comment on above: Order Comment: Speci men Type: BLOOD SPECIMENOrdering Facility: [facility] Address: [address] [place] [address] Performed By: #### 2 4323-8, 2777-1, 51305-7 ####[facility]ORATORYCLIA [id number] [place] [address] [place] Phosphate SerPl-mCncon 06-28 Phosphate [Mass/Vol] 4.0 mg/dL Normal 2.7-4.8 [facility] Comment on above: Order Comment: Speci men Type: BLOOD SPECIMENOrdering Facility: [facility] Address: [address] [place] [address] Performed By: #### 2 4323-8, 2777-, ####[facility]ORATORYCLIA [id number] [address] STATES OF [facility] CASE MANAGEMon 06-27-2024 CASE MANAGEM Normal [facility] CASE MANAGEM Normal [facility] CBC W Auto Differential pane l (Bld)on 06-27-2024 Basophils (Bld) [#/Vol] 10*3/uL Normal <0.11 [facility] Comment on above: Order Comment: Speci men Type: BLOOD SPECIMENOrdering Facility: [facility] Address: [address] [place] [address] Performed By: #### 5 7021-8 ####[facility]ORATORYCLIA [id number] [address] [place] Basophils/100 WBC (Bld) 0.1 % Normal A [facility] Comment on above: Order Comment: Speci men Type: BLOOD SPECIMENOrdering Facility: [facility] Address: [address] [place] [address] Performed By: #### 5 7021-8 ####[facility]ORATORYCLIA [id number] [address] Differential cell count method Nom (Bld) Auto Normal [facility] Comment on above: Order Comment: Speci men Type: BLOOD SPECIMENOrdering Facility: [facility] Address: [address] [place] [address] Performed By: #### 5 7021-8 ####[facility]ATORYCLIA [id number] [address] Eosinophils (Bld) [#/Vol] 10*3/uL Normal <0.46 [facility] Comment on above: Order Comment: Speci men Type: BLOOD SPECIMENOrdering Facility: [facility] Address: [address] [place] [address] Performed By: #### 5 7021-8 ####[facility]ATORYCLIA [id number] [address] Eosinophils/100 WBC (Bld) 0.1 % Normal [facility] Comment on above: Order Comment: Speci men Type: BLOOD SPECIMENOrdering Facility: [facility] Address: [address] [place] [address] Performed By: #### 5 7021-8 ####[facility]ORATORYCLIA [id number] [address] [place] Erythrocyte distribution width (RBC) [Ratio] 19.8 % High 11.5-15.0 [facility] Comment on above: Order Comment: Speci men Type: BLOOD SPECIMENOrdering Facility: [facility] Address: [address] [place] [address] Performed By: #### 5 7021-8 ####[facility]ATORYCLIA [id number] [address] Hematocrit (Bld) [Volume fraction] 31.6 % Low 36.0-46.0 [facility] Comment on above: Order Comment: Speci men Type: BLOOD SPECIMENOrdering Facility: [facility] Address: [address] [place] [address] Performed By: #### 5 7021-8 ####[facility]ORATORYCLIA [id number] [place] [address] [place] Hemoglobin (Bld) [Mass/Vol] 10.2 g/dL Low 11.5-15.5 [facility] Comment on above: Order Comment: Speci men Type: BLOOD SPECIMENOrdering Facility: [facility] Address: [address] [place] [address] Performed By: #### 5 7021-8 ####[facility]ORATORYCLIA [id number] [place] [address] [place] Immature granulocytes (Bld) [#/Vol] 0.11 10*3/uL High <0.10 [facility] Comment on above: Order Comment: Speci men Type: BLOOD SPECIMENOrdering Facility: [facility] Address: [address] [place] [address] Performed By: #### 5 7021-8 ####[facility]ORATORYCLIA [id number] [address] [place] Immature granulocytes/100 WBC (Bld) 0.8 % Normal [facility] Comment on above: Order Comment: Speci men Type: BLOOD SPECIMENOrdering Facility: [facility] Address: [address] [place] [address] Performed By: #### 5 7021-8 ####[facility]ORATORYCLIA [id number] [place] [address] [place] Lymphocytes (Bld) [#/Vol] 2.15 10*3/uL Normal 1.00-4.00 [facility] Comment on above: Order Comment: Speci men Type: BLOOD SPECIMENOrdering Facility: [facility] Address: [address] [place] [address] Performed By: #### 5 7021-8 ####[facility]ORATORYCLIA [id number] [address] [place] Lymphocytes/100 WBC (Bld) 15.8 % Normal [facility] Comment on above: Order Comment: Speci men Type: BLOOD SPECIMENOrdering Facility: [facility] Address: [address] [place] [address] Performed By: #### 5 7021-8 ####[facility]ORATORYCLIA [id number] [address] MCH (RBC) [Entitic mass] 31.9 pg Normal 26.0-34.0 [facility] Comment on above: Order Comment: Speci men Type: BLOOD SPECIMENOrdering Facility: [facility] Address: [address] [place] [address] Performed By: #### 5 7021-8 ####[facility]ORATORYCLIA [id number] [address] MCHC (RBC) [Mass/Vol] 32.3 g/dL Normal 30.5-36.0 [facility] Comment on above: Order Comment: Speci men Type: BLOOD SPECIMENOrdering Facility: [facility] Address: [address] [place] [address] Performed By: #### 5 7021-8 ####[facility]ATORYCLIA [id number] [address] MCV (RBC) [Entitic vol] 98.8 fL Normal 80.0-100.0 [facility] Comment on above: Order Comment: Speci men Type: BLOOD SPECIMENOrdering Facility: [facility] Address: [address] [place] [address] Performed By: #### 5 7021-8 ####[facility]ORATORYCLIA [id number] [address] Monocytes (Bld) [#/Vol] 1.07 10*3/uL High <0.87 [facility] Comment on above: Order Comment: Speci men Type: BLOOD SPECIMENOrdering Facility: [facility] Address: [address] [place] [address] Performed By: #### 5 7021-8 ####[facility]ATORYCLIA [id number] [address] Monocytes/100 WBC (Bld) 7.9 % Normal A [facility] Comment on above: Order Comment: Speci men Type: BLOOD SPECIMENOrdering Facility: [facility] Address: [address] [place] [address] Performed By: #### 5 7021-8 ####[facility]ORATORYCLIA [id number] [place] [address] [place] Neutrophils (Bld) [#/Vol] 10.27 10*3/uL High 1.45-7.50 [facility] Comment on above: Order Comment: Speci men Type: BLOOD SPECIMENOrdering Facility: [facility] Address: [address] [place] [address] Performed By: #### 5 7021-8 ####[facility]ORATORYCLIA [id number] [address] [place] Neutrophils/100 WBC (Bld) 75.3 % Normal [facility] Comment on above: Order Comment: Speci men Type: BLOOD SPECIMENOrdering Facility: [facility] Address: [address] [place] [address] Performed By: #### 5 7021-8 ####[facility]ATORYCLIA [id number] [address] [place] Nucleated RBC (Bld) [#/Vol] 10*3/uL Normal <0.01 [facility] Comment on above: Order Comment: Speci men Type: BLOOD SPECIMENOrdering Facility: [facility] Address: [address] [place] [address] Performed By: #### 5 7021-8 ####[facility]ATORYCLIA [id number] [address] [place] Nucleated RBC/100 WBC (Bld) [Ratio] 0.0 /100 WBC Normal [facility] Comment on above: Order Comment: Speci men Type: BLOOD SPECIMENOrdering Facility: [facility] Address: [address] [place] [address] Performed By: #### 5 7021-8 ####[facility]ORATORYCLIA [id number] [place], [place] [id number] [place] [address] [place] Platelet mean volume (Bld) [Entitic vol] 10.0 fL Normal 9.0-12.7 [facility] Comment on above: Order Comment: Speci men Type: BLOOD SPECIMENOrdering Facility: [facility] Address: [address] [place] [address] Performed By: #### 5 7021-8 ####[facility]ORATORYCLIA [id number] [address] OF [facility] Platelets (Bld) [#/Vol] 261 10*3/uL Normal 150-400 [facility] Comment on above: Order Comment: Speci men Type: BLOOD SPECIMENOrdering Facility: [facility] Address: [address] [place] [address] Performed By: #### 5 7021-8 ####[facility]ORATORYCLIA [id number] [address] [place] RBC (Bld) [#/Vol] 3.20 10*6/uL Low 3.90-5.20 [facility] Comment on above: Order Comment: Speci men Type: BLOOD SPECIMENOrdering Facility: [facility] Address: [address] [place] [address] Performed By: #### 5 7021-8 ####[facility]ORATORYCLIA [id number] [place] [address] [place] WBC (Bld) [#/Vol] 13.63 10*3/uL High 3.70-11.00 [facility] Comment on above: Order Comment: Speci men Type: BLOOD SPECIMENOrdering Facility: [facility] Address: [address] [place] [address] Performed By: #### 5 7021-8 ####[facility]ORATORYCLIA [id number] [address] OF [place] Comprehensive metabolic 2000 panelon 06-27-2024 Albumin [Mass/Vol] 2.6 g/dL Low 3.9-4.9 [facility] Comment on above: Order Comment: Speci men Type: BLOOD SPECIMENOrdering Facility: [facility] Address: [address] [place] [address] Performed By: #### 2 4323-8 ####[facility]ORATORYCLIA [id number] [address] [place] ALP [Catalytic activity/Vol] 313 U/L High 34-123 [facility] Comment on above: Order Comment: Speci men Type: BLOOD SPECIMENOrdering Facility: [facility] Address: [address] [place] [address] Performed By: #### 2 4323-8 ####[facility] LABORATORYCLIA [id number] [address] [place] ALT With P-5'-P [Catalytic activity/Vol] 37 U/L Normal 7-38 [facility] Comment on above: Order Comment: Speci men Type: BLOOD SPECIMENOrdering Facility: [facility] Address: [address] [place] [address] Performed By: #### 2 4323-8 ####[facility] LABORATORYCLIA [id number] [place] [address] [place] Anion gap [Moles/Vol] 10 mmol/L Normal 8-15 [facility] Comment on above: Order Comment: Speci men Type: BLOOD SPECIMENOrdering Facility: [facility] Address: [address] [place] [address] Performed By: #### 2 4323-8 ####[facility]ORATORYCLIA [id number] [address] [place] AST With P-5'-P [Catalytic activity/Vol] 57 U/L High 13-35 [facility] Comment on above: Order Comment: Speci men Type: BLOOD SPECIMENOrdering Facility: [facility] Address: [address] [place] [address] Performed By: #### 2 4323-8 ####[facility]ORATORYCLIA [id number] [address] [place] Bilirubin [Mass/Vol] 2.3 mg/dL High 0.2-1.3 [facility] Comment on above: Order Comment: Speci men Type: BLOOD SPECIMENOrdering Facility: [facility] Address: [address] [place] [address] Performed By: #### 2 4323-8 ####[facility]ORATORYCLIA [id number] [place] [address] [place] Calcium [Mass/Vol] 7.7 mg/dL Low 8.5-10.2 [facility] Comment on above: Order Comment: Speci men Type: BLOOD SPECIMENOrdering Facility: [facility] Address: [address] [place] [address] Performed By: #### 2 4323-8 ####[facility] LABORATORYCLIA [id number] [place] [address] [place] Chloride [Moles/Vol] 104 mmol/L Normal 98-107 [facility] Comment on above: Order Comment: Speci men Type: BLOOD SPECIMENOrdering Facility: [facility] Address: [address] [place] [address] Performed By: #### 2 4323-8 ####[facility]ORATORYCLIA [id number] [place] [address] [place] CO2 [Moles/Vol] 19 mmol/L Low 22-30 [facility] Comment on above: Order Comment: Speci men Type: BLOOD SPECIMENOrdering Facility: [facility] Address: [address] [place] [address] Performed By: #### 2 4323-8 ####[facility]ORATORYCLIA [id number] [place] [address] [place] Creatinine [Mass/Vol] 0.51 mg/dL Low 0.58-0.96 [facility] Comment on above: Order Comment: Speci men Type: BLOOD SPECIMENOrdering Facility: [facility] Address: [address] [place] [address] Performed By: #### 2 4323-8 ####[facility]ORATORYCLIA [id number] [place] [address] [place] Creatinine and Glomerular filtration rate.predicted panel (S/P/Bld) 104 mL/min/1.73m??? Normal >=60 [facility] Comment on above: Order Comment: Mady rivera Type: BLOOD SPECIMENOrdering Facility: [facility] Address: [address] [place] [address] Result Comment: Lily mated Glomerular Filtration Rate (eGFR) is calculated using the 2020 CKD-EPI creatinine equation. This equation utilizes serum creatinine, sex, and age as parameters. The creatinine assay has traceable calibration to isotope dilution-mass spectrometry. Refer to [facility] guidelines for clinical interpretation. In patients with unstable renal function, e.g. those with acute kidney injury, the eGFR may not accurately reflect actual GFR. Performed By: #### 2 4323-8 ####[facility] LABORATORYCLIA [id number] [place] [address] [place] Glucose [Mass/Vol] 114 mg/dL High 74-99 [facility] Comment on above: Order Comment: Mady rivera Type: BLOOD SPECIMENOrdering Facility: [facility] Address: [address] [place] [address] Result Comment: The [place] Diabetes [employer] (ADA) provides guidance for cutoff values for fasting glucose and random glucose. The ADA defines fasting as no caloric intake for at least 8 hours. Fasting plasma glucose results between 100 to 125 mg/dL indicate increased risk for diabetes (prediabetes).Fasting plasma glucose results greater than or equal to 126 mg/dL meet the criteria for diagnosis of diabetes. In the absence of unequivocal hyperglycemia, results should be confirmed by repeat testing. In a patient with classic symptoms of hyperglycemia or hyperglycemic crisis, random plasma glucose results greater than or equal to 200 mg/dL meet the criteria for diagnosis of diabetes.Reference: Standards of Medical Care in Diabetes 2016, [place] [employer]. Diabetes Care. 2016.39(Suppl 1). Performed By: #### 2 4323-8 ####[facility] LABORATORYCLIA [id number] [place] [id number] [place] Potassium [Moles/Vol] 4.0 mmol/L Normal 3.7-5.1 [facility] Comment on above: Order Comment: Speci men Type: BLOOD SPECIMENOrdering Facility: [facility] Address: [address] [place] [address] Performed By: #### 2 4323-8 ####[facility] LABORATORYCLIA [id number] [address] [place] Protein [Mass/Vol] 5.3 g/dL Low 6.3-8.0 [facility] Comment on above: Order Comment: Speci men Type: BLOOD SPECIMENOrdering Facility: [facility] Address: [address] [place] [address] Performed By: #### 2 4323-8 ####[facility]ORATORYCLIA [id number] [address] [place] Sodium [Moles/Vol] 133 mmol/L Low 136-144 [facility] Comment on above: Order Comment: Speci men Type: BLOOD SPECIMENOrdering Facility: [facility] Address: [address] [place] [address] Performed By: #### 2 4323-8 ####[facility] LABORATORYCLIA [id number] [address] [place] Urea nitrogen [Mass/Vol] 10 mg/dL Normal 7-21 [facility] Comment on above: Order Comment: Speci men Type: BLOOD SPECIMENOrdering Facility: [facility] Address: [address] [place] [address] Performed By: #### 2 4323-8 ####[facility]ORATORYCLIA [id number] [address] [place] THERAPY NTon 06-27-2024 THERAPY NT Normal [facility] CBC panel Auto (Bld)on 06-26 Erythrocyte distribution width (RBC) [Ratio] 19.7 % High 11.5-15.0 [facility] Comment on above: Order Comment: Speci men Type: BLOOD SPECIMENOrdering Facility: [facility] Address: [address] [place] [address] Performed By: #### 5 8410-2 ####[facility] LABORATORYCLIA [id number] [address] Hematocrit (Bld) [Volume fraction] 36.7 % Normal 36.0-46.0 [facility] Comment on above: Order Comment: Speci men Type: BLOOD SPECIMENOrdering Facility: [facility] Address: [address] [place] [address] Performed By: #### 5 8410-2 ####[facility] LABORATORYCLIA [id number] [address] [place] Hemoglobin (Bld) [Mass/Vol] 11.7 g/dL Normal 11.5-15.5 [facility] Comment on above: Order Comment: Speci men Type: BLOOD SPECIMENOrdering Facility: [facility] Address: [address] [place] [address] Performed By: #### 5 8410-2 ####[facility]ATORYCLIA [id number] [address] MCH (RBC) [Entitic mass] 31.4 pg Normal 26.0-34.0 [facility] Comment on above: Order Comment: Speci men Type: BLOOD SPECIMENOrdering Facility: [facility] Address: [address] [place] [address] Performed By: #### 5 8410-2 ####[facility]ATORYCLIA [id number] [address] [place] MCHC (RBC) [Mass/Vol] 31.9 g/dL Normal 30.5-36.0 [facility] Comment on above: Order Comment: Speci men Type: BLOOD SPECIMENOrdering Facility: [facility] Address: [address] [place] [address] Performed By: #### 5 8410-2 ####[facility]ATORYCLIA [id number] [address] MCV (RBC) [Entitic vol] 98.4 fL Normal 80.0-100.0 [facility] Comment on above: Order Comment: Speci men Type: BLOOD SPECIMENOrdering Facility: [facility] Address: [address] [place] [address] Performed By: #### 5 8410-2 ####[facility]ATORYCLIA [id number] [address] [place] Nucleated RBC (Bld) [#/Vol] 10*3/uL Normal <0.01 [facility] Comment on above: Order Comment: Speci men Type: BLOOD SPECIMENOrdering Facility: [facility] Address: [address] [place] [address] Performed By: #### 5 8410-2 ####[facility]ATORYCLIA [id number] [address] [place] Platelet mean volume (Bld) [Entitic vol] 10.3 fL Normal 9.0-12.7 [facility] Comment on above: Order Comment: Speci men Type: BLOOD SPECIMENOrdering Facility: [facility] Address: [address] [place] [address] Performed By: #### 5 8410-2 ####[facility]ATORYCLIA [id number] [address] [place] Platelets (Bld) [#/Vol] 261 10*3/uL Normal 150-400 [facility] Comment on above: Order Comment: Speci men Type: BLOOD SPECIMENOrdering Facility: [facility] Address: [address] [place] [address] Performed By: #### 5 8410-2 ####[facility]ATORYCLIA [id number] [place] [address] [place] RBC (Bld) [#/Vol] 3.73 10*6/uL Low 3.90-5.20 [facility] Comment on above: Order Comment: Speci men Type: BLOOD SPECIMENOrdering Facility: [facility] Address: [address] [place] [address] Performed By: #### 5 8410-2 ####[facility]ATORYCLIA [id number] [place] [address] [place] WBC (Bld) [#/Vol] 12.55 10*3/uL High 3.70-11.00 [facility] Comment on above: Order Comment: Speci men Type: BLOOD SPECIMENOrdering Facility: [facility] Address: [address] [place] [address] Performed By: #### 5 8410-2 ####[facility]ORATORYCLIA [id number] [address] OF [facility] Comprehensive metabolic 2000 panelon 06-26-2024 Albumin [Mass/Vol] 2.8 g/dL Low 3.9-4.9 [facility] Comment on above: Order Comment: Speci men Type: BLOOD SPECIMENOrdering Facility: [facility] Address: [address] [place] [address] Performed By: #### 2 4323-8 ####[facility]ATORYCLIA [id number] [address] OF [facility] ALP [Catalytic activity/Vol] 361 U/L High 34-123 [facility] Comment on above: Order Comment: Speci men Type: BLOOD SPECIMENOrdering Facility: [facility] Address: [address] [place] [address] Performed By: #### 2 4323-8 ####[facility]ATORYCLIA [id number] [address] ALT With P-5'-P [Catalytic activity/Vol] 43 U/L High 7-38 [facility] Comment on above: Order Comment: Speci men Type: BLOOD SPECIMENOrdering Facility: [facility] Address: [address] [place] [address] Performed By: #### 2 4323-8 ####[facility]ATORYCLIA [id number] [address] OF [facility] Anion gap [Moles/Vol] 11 mmol/L Normal 8-15 [facility] Comment on above: Order Comment: Speci men Type: BLOOD SPECIMENOrdering Facility: [facility] Address: [address] [place] [address] Performed By: #### 2 4323-8 ####[facility]ORATORYCLIA [id number] [place] [address] [place] AST With P-5'-P [Catalytic activity/Vol] 63 U/L High 13-35 [facility] Comment on above: Order Comment: Speci men Type: BLOOD SPECIMENOrdering Facility: [facility] Address: [address] [place] [address] Performed By: #### 2 4323-8 ####[facility]ATORYCLIA [id number] [place] [address] [place] Bilirubin [Mass/Vol] 3.2 mg/dL High 0.2-1.3 [facility] Comment on above: Order Comment: Speci men Type: BLOOD SPECIMENOrdering Facility: [facility] Address: [address] [place] [address] Performed By: #### 2 4323-8 ####[facility]ATORYCLIA [id number] [place] [address] [place] Calcium [Mass/Vol] 7.9 mg/dL Low 8.5-10.2 [facility] Comment on above: Order Comment: Speci men Type: BLOOD SPECIMENOrdering Facility: [facility] Address: [address] [place] [address] Performed By: #### 2 4323-8 ####[facility]ATORYCLIA [id number] [place] [address] [place] Chloride [Moles/Vol] 99 mmol/L Normal 98-107 [facility] Comment on above: Order Comment: Speci men Type: BLOOD SPECIMENOrdering Facility: [facility] Address: [address] [place] [address] Performed By: #### 2 4323-8 ####[facility]ATORYCLIA [id number] [place] [address] [place] CO2 [Moles/Vol] 20 mmol/L Low 22-30 [facility] Comment on above: Order Comment: Speci men Type: BLOOD SPECIMENOrdering Facility: [facility] Address: [address] [place] [address] Performed By: #### 2 4323-8 ####[facility]ORATORYCLIA [id number] [place] [id number] [place] [facility] Creatinine [Mass/Vol] 0.53 mg/dL Low 0.58-0.96 [facility] Comment on above: Order Comment: Mady rivera Type: BLOOD SPECIMENOrdering Facility: [facility] Address: [address] [place] [address] Performed By: #### 2 4323-8 ####[facility]ORATORYCLIA [id number] [address] Creatinine and Glomerular filtration rate.predicted panel (S/P/Bld) 103 mL/min/1.73m??? Normal >=60 [facility] Comment on above: Order Comment: Mady rivera Type: BLOOD SPECIMENOrdering Facility: [facility] Address: [address] [place] [address] Result Comment: Lily mated Glomerular Filtration Rate (eGFR) is calculated using the 2020 CKD-EPI creatinine equation. This equation utilizes serum creatinine, sex, and age as parameters. The creatinine assay has traceable calibration to isotope dilution-mass spectrometry. Refer to KDIGO guidelines for clinical interpretation. In patients with unstable renal function, e.g. those with acute kidney injury, the eGFR may not accurately reflect actual GFR. Performed By: #### 2 4323-8 ####[facility]ATORYCLIA [id number] [address] STATES OF [facility] Glucose [Mass/Vol] 84 mg/dL Normal 74-99 [facility] Comment on above: Order Comment: Mady rivera Type: BLOOD SPECIMENOrdering Facility: [facility] Address: [address] [place] [address] Result Comment: The [place] Diabetes [employer] (ADA) provides guidance for cutoff values for fasting glucose and random glucose. The ADA defines fasting as no caloric intake for at least 8 hours. Fasting plasma glucose results between 100 to 125 mg/dL indicate increased risk for diabetes (prediabetes).Fasting plasma glucose results greater than or equal to 126 mg/dL meet the criteria for diagnosis of diabetes. In the absence of unequivocal hyperglycemia, results should be confirmed by repeat testing. In a patient with classic symptoms of hyperglycemia or hyperglycemic crisis, random plasma glucose results greater than or equal to 200 mg/dL meet the criteria for diagnosis of diabetes.Reference: Standards of Medical Care in Diabetes 2016, [place] [employer]. Diabetes Care. 2016.39(Suppl 1). Performed By: #### 2 4323-8 ####[facility]ATORYCLIA [id number] [place] [address] [place] Potassium [Moles/Vol] 4.4 mmol/L Normal 3.7-5.1 [facility] Comment on above: Order Comment: Speci men Type: BLOOD SPECIMENOrdering Facility: [facility] Address: [address] [place] [address] Performed By: #### 2 4323-8 ####[facility]ATORYCLIA [id number] [place] [address] [place] Protein [Mass/Vol] 6.0 g/dL Low 6.3-8.0 [facility] Comment on above: Order Comment: Speci men Type: BLOOD SPECIMENOrdering Facility: [facility] Address: [address] [place] [address] Performed By: #### 2 4323-8 ####[facility]ATORYCLIA [id number] [place] [address] [place] Sodium [Moles/Vol] 130 mmol/L Low 136-144 [facility] Comment on above: Order Comment: Speci men Type: BLOOD SPECIMENOrdering Facility: [facility] Address: [address] [place] [address] Performed By: #### 2 4323-8 ####[facility]ATORYCLIA [id number] [place] [address] [place] Urea nitrogen [Mass/Vol] 11 mg/dL Normal 7-21 [facility] Comment on above: Order Comment: Speci men Type: BLOOD SPECIMENOrdering Facility: [facility] Address: [address] [place] [address] Performed By: #### 2 4323-8 ####[facility]ATORYCLIA [id number] [address] [place] THERAPY NTon 06-26-2024 THERAPY NT Normal [facility] CASE MANAGEMon 06-25-2024 CASE MANAGEM Normal [facility] CASE MANAGEM Normal [facility] CBC panel Auto (Bld)on 06-25 Erythrocyte distribution width (RBC) [Ratio] 19.5 % High 11.5-15.0 [facility] Comment on above: Order Comment: Speci men Type: BLOOD SPECIMENOrdering Facility: [facility] Address: [address] [place] [address] Performed By: #### 5 8410-2 ####[facility]ATORYCLIA [id number] [address] [place] Hematocrit (Bld) [Volume fraction] 34.5 % Low 36.0-46.0 [facility] Comment on above: Order Comment: Speci men Type: BLOOD SPECIMENOrdering Facility: [facility] Address: [address] [place] [address] Performed By: #### 5 8410-2 ####[facility]ATORYCLIA [id number] [address] [place] Hemoglobin (Bld) [Mass/Vol] 11.1 g/dL Low 11.5-15.5 [facility] Comment on above: Order Comment: Speci men Type: BLOOD SPECIMENOrdering Facility: [facility] Address: [address] [place] [address] Performed By: #### 5 8410-2 ####[facility]ATORYCLIA [id number] [address] [place] MCH (RBC) [Entitic mass] 31.4 pg Normal 26.0-34.0 [facility] Comment on above: Order Comment: Speci men Type: BLOOD SPECIMENOrdering Facility: [facility] Address: [address] [place] [address] Performed By: #### 5 8410-2 ####[facility]ATORYCLIA [id number] [address] [place] MCHC (RBC) [Mass/Vol] 32.2 g/dL Normal 30.5-36.0 [facility] Comment on above: Order Comment: Speci men Type: BLOOD SPECIMENOrdering Facility: [facility] Address: [address] [place] [address] Performed By: #### 5 8410-2 ####[facility]ATORYCLIA [id number] [address] [place] MCV (RBC) [Entitic vol] 97.5 fL Normal 80.0-100.0 [facility] Comment on above: Order Comment: Speci men Type: BLOOD SPECIMENOrdering Facility: [facility] Address: [address] [place] [address] Performed By: #### 5 8410-2 ####[facility]ATORYCLIA [id number] [address] [place] Nucleated RBC (Bld) [#/Vol] 10*3/uL Normal <0.01 [facility] Comment on above: Order Comment: Speci men Type: BLOOD SPECIMENOrdering Facility: [facility] Address: [address] [place] [address] Performed By: #### 5 8410-2 ####[facility]ATORYCLIA [id number] [address] [place] Platelet mean volume (Bld) [Entitic vol] 10.5 fL Normal 9.0-12.7 [facility] Comment on above: Order Comment: Speci men Type: BLOOD SPECIMENOrdering Facility: [facility] Address: [address] [place] [address] Performed By: #### 5 8410-2 ####[facility]ATORYCLIA [id number] [place] [address] [place] Platelets (Bld) [#/Vol] 229 10*3/uL Normal 150-400 [facility] Comment on above: Order Comment: Speci men Type: BLOOD SPECIMENOrdering Facility: [facility] Address: [address] [place] [address] Performed By: #### 5 8410-2 ####[facility]ATORYCLIA [id number] [place], [place] [id number] [place] [address] OF [facility] RBC (Bld) [#/Vol] 3.54 10*6/uL Low 3.90-5.20 [facility] Comment on above: Order Comment: Speci men Type: BLOOD SPECIMENOrdering Facility: [facility] Address: [address] [place] [address] Performed By: #### 5 8410-2 ####[facility]ATORYCLIA [id number] [address] OF [facility] WBC (Bld) [#/Vol] 10.12 10*3/uL Normal 3.70-11.00 [facility] Comment on above: Order Comment: Speci men Type: BLOOD SPECIMENOrdering Facility: [facility] Address: [address] [place] [address] Performed By: #### 5 8410-2 ####[facility]ATORYCLIA [id number] [address] Comprehensive metabolic 2000 panelon 06-25-2024 Albumin [Mass/Vol] 2.5 g/dL Low 3.9-4.9 [facility] Comment on above: Order Comment: Speci men Type: BLOOD SPECIMENOrdering Facility: [facility] Address: [address] [place] [address] Performed By: #### 2 4323-8 ####[facility]ATORYCLIA [id number] [address] ALP [Catalytic activity/Vol] 323 U/L High 34-123 [facility] Comment on above: Order Comment: Speci men Type: BLOOD SPECIMENOrdering Facility: [facility] Address: [address] [place] [address] Performed By: #### 2 4323-8 ####[facility]ATORYCLIA [id number] [address] ALT With P-5'-P [Catalytic activity/Vol] 39 U/L High 7-38 [facility] Comment on above: Order Comment: Speci men Type: BLOOD SPECIMENOrdering Facility: [facility] Address: [address] [place] [address] Performed By: #### 2 4323-8 ####[facility]ATORYCLIA [id number] [place] [address] [place] Anion gap [Moles/Vol] 10 mmol/L Normal 8-15 [facility] Comment on above: Order Comment: Speci men Type: BLOOD SPECIMENOrdering Facility: [facility] Address: [address] [place] [address] Performed By: #### 2 4323-8 ####[facility]ATORYCLIA [id number] [address] [place] AST With P-5'-P [Catalytic activity/Vol] 55 U/L High 13-35 [facility] Comment on above: Order Comment: Speci men Type: BLOOD SPECIMENOrdering Facility: [facility] Address: [address] [place] [address] Performed By: #### 2 4323-8 ####[facility]ATORYCLIA [id number] [address] [place] Bilirubin [Mass/Vol] 3.0 mg/dL High 0.2-1.3 [facility] Comment on above: Order Comment: Speci men Type: BLOOD SPECIMENOrdering Facility: [facility] Address: [address] [place] [address] Performed By: #### 2 4323-8 ####[facility]ATORYCLIA [id number] [place] [address] [place] Calcium [Mass/Vol] 7.2 mg/dL Low 8.5-10.2 [facility] Comment on above: Order Comment: Speci men Type: BLOOD SPECIMENOrdering Facility: [facility] Address: [address] [place] [address] Performed By: #### 2 4323-8 ####[facility]ATORYCLIA [id number] [place] [address] [place] Chloride [Moles/Vol] 105 mmol/L Normal 98-107 [facility] Comment on above: Order Comment: Speci men Type: BLOOD SPECIMENOrdering Facility: [facility] Address: [address] [place] [address] Performed By: #### 2 4323-8 ####[facility]ATORYCLIA [id number] [address] STATES OF [facility] CO2 [Moles/Vol] 21 mmol/L Low 22-30 [facility] Comment on above: Order Comment: Speci men Type: BLOOD SPECIMENOrdering Facility: [facility] Address: [address] [place] [address] Performed By: #### 2 4323-8 ####[facility] [id number] [address] Creatinine [Mass/Vol] 0.61 mg/dL Normal 0.58-0.96 [facility] Comment on above: Order Comment: Speci men Type: BLOOD SPECIMENOrdering Facility: [facility] Address: [address] [place] [address] Performed By: #### 2 4323-8 ####[facility]ATORYCLIA [id number] [address] Creatinine and Glomerular filtration rate.predicted panel (S/P/Bld) 99 mL/min/1.73m??? Normal >=60 [facility] Comment on above: Order Comment: Speci men Type: BLOOD SPECIMENOrdering Facility: [facility] Address: [address] [place] [address] Result Comment: Lily mated Glomerular Filtration Rate (eGFR) is calculated using the 2020 CKD-EPI creatinine equation. This equation utilizes serum creatinine, sex, and age as parameters. The creatinine assay has traceable calibration to isotope dilution-mass spectrometry. Refer to KDIGO guidelines for clinical interpretation. In patients with unstable renal function, e.g. those with acute kidney injury, the eGFR may not accurately reflect actual GFR. Performed By: #### 2 4323-8 ####[facility]ATORYCLIA [id number] [place] [address] [place] Glucose [Mass/Vol] 104 mg/dL High 74-99 [facility] Comment on above: Order Comment: Speci men Type: BLOOD SPECIMENOrdering Facility: [facility] Address: [address] [place] [address] Result Comment: The [place] [employer] (ADA) provides guidance for cutoff values for fasting glucose and random glucose. The ADA defines fasting as no caloric intake for at least 8 hours. Fasting plasma glucose results between 100 to 125 mg/dL indicate increased risk for diabetes (prediabetes).Fasting plasma glucose results greater than or equal to 126 mg/dL meet the criteria for diagnosis of diabetes. In the absence of unequivocal hyperglycemia, results should be confirmed by repeat testing. In a patient with classic symptoms of hyperglycemia or hyperglycemic crisis, random plasma glucose results greater than or equal to 200 mg/dL meet the criteria for diagnosis of diabetes.Reference: Standards of Medical Care in Diabetes 2016, [place] [employer]. Diabetes Care. 2016.39(Suppl 1). Performed By: #### 2 4323-8 ####[facility] LABORATORYCLIA [id number] [place] [address] [place] Potassium [Moles/Vol] 4.1 mmol/L Normal 3.7-5.1 [facility] Comment on above: Order Comment: Melissai men Type: BLOOD SPECIMENOrdering Facility: [facility] Address: [address] [place] [address] Performed By: #### 2 4323-8 ####[facility] LABORATORYCLIA [id number] [place] [address] [place] Protein [Mass/Vol] 5.2 g/dL Low 6.3-8.0 [facility] Comment on above: Order Comment: Speci men Type: BLOOD SPECIMENOrdering Facility: [facility] Address: [address] [place] [address] Performed By: #### 2 4323-8 ####[facility] LABORATORYCLIA [id number] [place] [address] [place] Sodium [Moles/Vol] 136 mmol/L Normal 136-144 [facility] Comment on above: Order Comment: Speci men Type: BLOOD SPECIMENOrdering Facility: [facility] Address: [address] [place] [address] Performed By: #### 2 4323-8 ####[facility] LABORATORYCLIA [id number] [place] [address] [place] Urea nitrogen [Mass/Vol] 11 mg/dL Normal 7-21 [facility] Comment on above: Order Comment: Speci men Type: BLOOD SPECIMENOrdering Facility: [facility] Address: [address] [place] [address] Performed By: #### 2 4323-8 ####[facility] LABORATORYCLIA [id number] [place] [id number] [place] NUTRITIONon 06-25-2024 NUTRITION Normal [facility] THERAPY NTon 06-25-2024 THERAPY NT Normal [facility] CASE MANAGEMon 06-24-2024 CASE MANAGEM Normal [facility] CASE MANAGEM Normal [facility] CBC panel Auto (Bld)on 06-24 Erythrocyte distribution width (RBC) [Ratio] 18.9 % High 11.5-15.0 [facility] Comment on above: Order Comment: Speci men Type: BLOOD SPECIMENOrdering Facility: [facility] Address: [address] [place] [address] Performed By: #### 5 8410-2 ####[facility] LABORATORYCLIA [id number] [address] [place] Hematocrit (Bld) [Volume fraction] 34.0 % Low 36.0-46.0 [facility] Comment on above: Order Comment: Speci men Type: BLOOD SPECIMENOrdering Facility: [facility] Address: [address] [place] [address] Performed By: #### 5 8410-2 ####[facility] LABORATORYCLIA [id number] [place] [address] [place] Hemoglobin (Bld) [Mass/Vol] 11.0 g/dL Low 11.5-15.5 [facility] Comment on above: Order Comment: Speci men Type: BLOOD SPECIMENOrdering Facility: [facility] Address: [address] [place] [address] Performed By: #### 5 8410-2 ####[facility] LABORATORYCLIA [id number] [address] MCH (RBC) [Entitic mass] 31.4 pg Normal 26.0-34.0 [facility] Comment on above: Order Comment: Speci men Type: BLOOD SPECIMENOrdering Facility: [facility] Address: [address] [place] [address] Performed By: #### 5 8410-2 ####[facility]ORATORYCLIA [id number] [address] MCHC (RBC) [Mass/Vol] 32.4 g/dL Normal 30.5-36.0 [facility] Comment on above: Order Comment: Speci men Type: BLOOD SPECIMENOrdering Facility: [facility] Address: [address] [place] [address] Performed By: #### 5 8410-2 ####[facility]ORATORYCLIA [id number] [address] MCV (RBC) [Entitic vol] 97.1 fL Normal 80.0-100.0 [facility] Comment on above: Order Comment: Speci men Type: BLOOD SPECIMENOrdering Facility: [facility] Address: [address] [place] [address] Performed By: #### 5 8410-2 ####[facility]ATORYCLIA [id number] [address] Nucleated RBC (Bld) [#/Vol] 10*3/uL Normal <0.01 [facility] Comment on above: Order Comment: Speci men Type: BLOOD SPECIMENOrdering Facility: [facility] Address: [address] [place] [address] Performed By: #### 5 8410-2 ####[facility]ORATORYCLIA [id number] [place] [address] [place] Platelet mean volume (Bld) [Entitic vol] 10.8 fL Normal 9.0-12.7 [facility] Comment on above: Order Comment: Speci men Type: BLOOD SPECIMENOrdering Facility: [facility] Address: [address] [place] [address] Performed By: #### 5 8410-2 ####[facility]ORATORYCLIA [id number] [place] [address] [place] Platelets (Bld) [#/Vol] 218 10*3/uL Normal 150-400 [facility] Comment on above: Order Comment: Speci men Type: BLOOD SPECIMENOrdering Facility: [facility] Address: [address] [place] [address] Performed By: #### 5 8410-2 ####[facility]ORATORYCLIA [id number] [place] [address] [place] RBC (Bld) [#/Vol] 3.50 10*6/uL Low 3.90-5.20 [facility] Comment on above: Order Comment: Speci men Type: BLOOD SPECIMENOrdering Facility: [facility] Address: [address] [place] [address] Performed By: #### 5 8410-2 ####[facility]ATORYCLIA [id number] [place] [address] [place] WBC (Bld) [#/Vol] 9.15 10*3/uL Normal 3.70-11.00 [facility] Comment on above: Order Comment: Speci men Type: BLOOD SPECIMENOrdering Facility: [facility] Address: [address] [place] [address] Performed By: #### 5 8410-2 ####[facility]ORATORYCLIA [id number] [place] [address] [place] Comprehensive metabolic 2000 panelon 06-24-2024 Albumin [Mass/Vol] 2.6 g/dL Low 3.9-4.9 [facility] Comment on above: Order Comment: Speci men Type: BLOOD SPECIMENOrdering Facility: [facility] Address: [address] [place], [place] [address] Performed By: #### 2 432-8, ####[facility]ORATORYCLIA [id number] [place] [address] [place] ALP [Catalytic activity/Vol] 349 U/L High 34-123 [facility] Comment on above: Order Comment: Speci men Type: BLOOD SPECIMENOrdering Facility: [facility] Address: [address] [place] [address] Performed By: #### 2 4328, ####[facility]ORATORYCLIA [id number] [place] [address] [place] ALT With P-5'-P [Catalytic activity/Vol] 44 U/L High 7-38 [facility] Comment on above: Order Comment: Speci men Type: BLOOD SPECIMENOrdering Facility: [facility] Address: [address] [place] [address] Performed By: #### 2 43207-19, ####[facility]ORATORYCLIA [id number] [address] [place] Anion gap [Moles/Vol] 9 mmol/L Normal 8-15 [facility] Comment on above: Order Comment: Speci men Type: BLOOD SPECIMENOrdering Facility: [facility] Address: [address] [place] [address] Performed By: #### 2 4328, ####[facility]ORATORYCLIA [id number] [place] [address] [place] AST With P-5'-P [Catalytic activity/Vol] Normal [facility] Comment on above: Order Comment: Speci men Type: BLOOD SPECIMENOrdering Facility: [facility] Address: [address] [place] [address] Result Comment: Unab le to assay due to interference from hemolysis. Suggest reorder as clinically indicated. Performed By: #### 2 4323-8, ####[facility]ATORYCLIA [id number] [place] [address] [place] Bilirubin [Mass/Vol] 3.6 mg/dL High 0.2-1.3 [facility] Comment on above: Order Comment: Speci men Type: BLOOD SPECIMENOrdering Facility: [facility] Address: [address] [place] [address] Performed By: #### 2 432-8, ####[facility]ORATORYCLIA [id number] [place] [address] [place] Calcium [Mass/Vol] 7.2 mg/dL Low 8.5-10.2 [facility] Comment on above: Order Comment: Speci men Type: BLOOD SPECIMENOrdering Facility: [facility] Address: [address] [place] [address] Performed By: #### 2 4322-8, ####[facility]ORATORYCLIA [id number] [place] [address] [place] Chloride [Moles/Vol] 104 mmol/L Normal 98-107 [facility] Comment on above: Order Comment: Speci men Type: BLOOD SPECIMENOrdering Facility: [facility] Address: [address] [place] [address] Performed By: #### 2 8, ####[facility] [facility]ORATORYCLIA [id number] [place] [address] [place] CO2 [Moles/Vol] 22 mmol/L Normal 22-30 [facility] Comment on above: Order Comment: Speci men Type: BLOOD SPECIMENOrdering Facility: [facility] Address: [address] [place] [address] Performed By: #### 2 4323-8, ####[facility]ORATORYCLIA [id number] [place] [address] [place] Creatinine [Mass/Vol] 0.62 mg/dL Normal 0.58-0.96 [facility] Comment on above: Order Comment: Speci men Type: BLOOD SPECIMENOrdering Facility: [facility] Address: [address] [place] [address] Performed By: #### 2 4323-8, ####[facility]ITALCLIA [id number] [place] [id number] [facility] Creatinine and Glomerular filtration rate.predicted panel (S/P/Bld) 99 mL/min/1.73m??? Normal >=60 [facility] Comment on above: Order Comment: Mady rivera Type: BLOOD SPECIMENOrdering Facility: [facility] Address: [address] [place] [address] Result Comment: Lily mated Glomerular Filtration Rate (eGFR) is calculated using the 2020 CKD-EPI creatinine equation. This equation utilizes serum creatinine, sex, and age as parameters. The creatinine assay has traceable calibration to isotope dilution-mass spectrometry. Refer to KDIGO guidelines for clinical interpretation. In patients with unstable renal function, e.g. those with acute kidney injury, the eGFR may not accurately reflect actual GFR. Performed By: #### 2 4323-8, 41245-1 ####[facility] CARE SERVICESIA [id number] [address] [place] Glucose [Mass/Vol] 75 mg/dL Normal 74-99 [facility] Comment on above: Order Comment: Mady rivera Type: BLOOD SPECIMENOrdering Facility: [facility] Address: [address] [place] [address] Result Comment: The [place] Diabetes [employer] (ADA) provides guidance for cutoff values for fasting glucose and random glucose. The ADA defines fasting as no caloric intake for at least 8 hours. Fasting plasma glucose results between 100 to 125 mg/dL indicate increased risk for diabetes (prediabetes).Fasting plasma glucose results greater than or equal to 126 mg/dL meet the criteria for diagnosis of diabetes. In the absence of unequivocal hyperglycemia, results should be confirmed by repeat testing. In a patient with classic symptoms of hyperglycemia or hyperglycemic crisis, random plasma glucose results greater than or equal to 200 mg/dL meet the criteria for diagnosis of diabetes.Reference: Standards of Medical Care in Diabetes 2016, [place] [employer]. Diabetes Care. 2016.39(Suppl 1). Performed By: #### 2 4323-8, 61558-6 ####[facility]ORATORYCLIA [id number] [place] [address] [place] Potassium [Moles/Vol] 4.1 mmol/L Normal 3.7-5.1 [facility] Comment on above: Order Comment: Speci men Type: BLOOD SPECIMENOrdering Facility: [facility] Address: [address] [place] [address] Performed By: #### 2 4323-8, ####[facility]ORATORYCLIA [id number] [place] [address] [place] Protein [Mass/Vol] 5.2 g/dL Low 6.3-8.0 [facility] Comment on above: Order Comment: Speci men Type: BLOOD SPECIMENOrdering Facility: [facility] Address: [address] [place] [address] Performed By: #### 2 4323-8, ####[facility]ATORYCLIA [id number] [place] [address] [place] Sodium [Moles/Vol] 135 mmol/L Low 136-144 [facility] Comment on above: Order Comment: Speci men Type: BLOOD SPECIMENOrdering Facility: [facility] Address: [address] [place] [address] Performed By: #### 2 4323-8, ####[facility]ATORYCLIA [id number] [place] [address] [place] Urea nitrogen [Mass/Vol] 11 mg/dL Normal 7-21 [facility] Comment on above: Order Comment: Speci men Type: BLOOD SPECIMENOrdering Facility: [facility] Address: [address] [place] [address] Performed By: #### 2 4323-8, ####[facility]ATORYCLIA [id number] [place] [address] [place] Magnesium SerPl-mCncon 06-24 Magnesium [Mass/Vol] 1.1 mg/dL Low 1.7-2.3 [facility] Comment on above: Order Comment: Speci men Type: BLOOD SPECIMENOrdering Facility: [facility] Address: [address] [place] [address] Performed By: #### 2 4323-8, 97212-9 ####[facility]ATORYCLIA [id number] [address] CASE MANAGEMon 06-23-2024 CASE MANAGEM Normal [facility] CBC panel Auto (Bld)on 06-23 Erythrocyte distribution width (RBC) [Ratio] 18.5 % High 11.5-15.0 [facility] Comment on above: Order Comment: Speci men Type: BLOOD SPECIMENOrdering Facility: [facility] Address: [address] [place] [address] Performed By: #### 5 8410-2 ####[facility]ORATORYCLIA [id number] [address] STATES [facility] Hematocrit (Bld) [Volume fraction] 35.4 % Low 36.0-46.0 [facility] Comment on above: Order Comment: Speci men Type: BLOOD SPECIMENOrdering Facility: [facility] Address: [address] [place] [address] Performed By: #### 5 8410-2 ####[facility]ATORYCLIA [id number] [address] [place] Hemoglobin (Bld) [Mass/Vol] 11.6 g/dL Normal 11.5-15.5 [facility] Comment on above: Order Comment: Speci men Type: BLOOD SPECIMENOrdering Facility: [facility] Address: [address] [place] [address] Performed By: #### 5 8410-2 ####[facility]ORATORYCLIA [id number] [address] STATES [facility] MCH (RBC) [Entitic mass] 31.4 pg Normal 26.0-34.0 [facility] Comment on above: Order Comment: Speci men Type: BLOOD SPECIMENOrdering Facility: [facility] Address: [address] [place] [address] Performed By: #### 5 8410-2 ####[facility]ATORYCLIA [id number] [address] [place] MCHC (RBC) [Mass/Vol] 32.8 g/dL Normal 30.5-36.0 [facility] Comment on above: Order Comment: Speci men Type: BLOOD SPECIMENOrdering Facility: [facility] Address: [address] [place] [address] Performed By: #### 5 8410-2 ####[facility]ATORYCLIA [id number] [address] [place] MCV (RBC) [Entitic vol] 95.9 fL Normal 80.0-100.0 [facility] Comment on above: Order Comment: Speci men Type: BLOOD SPECIMENOrdering Facility: [facility] Address: [address] [place] [address] Performed By: #### 5 8410-2 ####[facility]ATORYCLIA [id number] [address] [place] Nucleated RBC (Bld) [#/Vol] 10*3/uL Normal <0.01 [facility] Comment on above: Order Comment: Speci men Type: BLOOD SPECIMENOrdering Facility: [facility] Address: [address] [place] [address] Performed By: #### 5 8410-2 ####[facility]ATORYCLIA [id number] [address] [place] Platelet mean volume (Bld) [Entitic vol] 11.3 fL Normal 9.0-12.7 [facility] Comment on above: Order Comment: Speci men Type: BLOOD SPECIMENOrdering Facility: [facility] Address: [address] [place] [address] Performed By: #### 5 8410-2 ####[facility]ATORYCLIA [id number] [address] [place] Platelets (Bld) [#/Vol] 183 10*3/uL Normal 150-400 [facility] Comment on above: Order Comment: Speci men Type: BLOOD SPECIMENOrdering Facility: [facility] Address: [address] [place] [address] Performed By: #### 5 8410-2 ####[facility]ATORYCLIA [id number] [address] RBC (Bld) [#/Vol] 3.69 10*6/uL Low 3.90-5.20 [facility] Comment on above: Order Comment: Speci men Type: BLOOD SPECIMENOrdering Facility: [facility] Address: [address] [place] [address] Performed By: #### 5 8410-2 ####[facility]ATORYCLIA [id number] [address] WBC (Bld) [#/Vol] 7.76 10*3/uL Normal 3.70-11.00 [facility] Comment on above: Order Comment: Speci men Type: BLOOD SPECIMENOrdering Facility: [facility] Address: [address] [place] [address] Performed By: #### 5 8410-2 ####[facility]ATORYCLIA [id number] [address] Comprehensive metabolic 2000 panelon 06-23-2024 Albumin [Mass/Vol] 2.5 g/dL Low 3.9-4.9 [facility] Comment on above: Order Comment: Speci men Type: BLOOD SPECIMENOrdering Facility: [facility] Address: [address] [place] [address] Performed By: #### 2 4323-8 ####[facility]ATORYCLIA [id number] [address] ALP [Catalytic activity/Vol] 335 U/L High 34-123 [facility] Comment on above: Order Comment: Speci men Type: BLOOD SPECIMENOrdering Facility: [facility] Address: [address] [place] [address] Performed By: #### 2 4323-8 ####[facility]ATORYCLIA [id number] [address] ALT With P-5'-P [Catalytic activity/Vol] Normal [facility] Comment on above: Order Comment: Speci men Type: BLOOD SPECIMENOrdering Facility: [facility] Address: [address] [place] [address] Result Comment: Unab le to assay due to interference from hemolysis. Suggest reorder as clinically indicated. Performed By: #### 2 4323-8 ####[facility]ATORYCLIA [id number] [address] Anion gap [Moles/Vol] 7 mmol/L Low 8-15 [facility] Comment on above: Order Comment: Speci men Type: BLOOD SPECIMENOrdering Facility: [facility] Address: [address] [place] [address] Performed By: #### 2 4323-8 ####[facility]ATORYCLIA [id number] [address] STATES OF [facility] AST With P-5'-P [Catalytic activity/Vol] Normal [facility] Comment on above: Order Comment: Speci men Type: BLOOD SPECIMENOrdering Facility: [facility] Address: [address] [place] [address] Result Comment: Unab le to assay due to interference from hemolysis. Suggest reorder as clinically indicated. Performed By: #### 2 4323-8 ####[facility]ATORYCLIA [id number] [address] STATES OF [facility] Bilirubin [Mass/Vol] 3.9 mg/dL High 0.2-1.3 [facility] Comment on above: Order Comment: Speci men Type: BLOOD SPECIMENOrdering Facility: [facility] Address: [address] [place] [address] Performed By: #### 2 4323-8 ####[facility]ATORYCLIA [id number] [address] OF [facility] Calcium [Mass/Vol] 7.2 mg/dL Low 8.5-10.2 [facility] Comment on above: Order Comment: Speci men Type: BLOOD SPECIMENOrdering Facility: [facility] Address: [address] [place] [address] Performed By: #### 2 4323-8 ####[facility]ATORYCLIA [id number] [address] [place] Chloride [Moles/Vol] 103 mmol/L Normal 98-107 [facility] Comment on above: Order Comment: Speci men Type: BLOOD SPECIMENOrdering Facility: [facility] Address: [address] [place] [address] Performed By: #### 2 4323-8 ####[facility]ATORYCLIA [id number] [address] [place] CO2 [Moles/Vol] 22 mmol/L Normal 22-30 [facility] Comment on above: Order Comment: Speci men Type: BLOOD SPECIMENOrdering Facility: [facility] Address: [address] [place] [address] Performed By: #### 2 4323-8 ####[facility]ORATORYCLIA [id number] [address] OF [facility] Creatinine [Mass/Vol] 0.67 mg/dL Normal 0.58-0.96 [facility] Comment on above: Order Comment: Speci men Type: BLOOD SPECIMENOrdering Facility: [facility] Address: [address] [place] [address] Performed By: #### 2 4323-8 ####[facility]ATORYCLIA [id number] [address] Creatinine and Glomerular filtration rate.predicted panel (S/P/Bld) 97 mL/min/1.73m??? Normal >=60 [facility] Comment on above: Order Comment: Speci men Type: BLOOD SPECIMENOrdering Facility: [facility] Address: [address] [place] [address] Result Comment: Lily mated Glomerular Filtration Rate (eGFR) is calculated using the 2020 CKD-EPI creatinine equation. This equation utilizes serum creatinine, sex, and age as parameters. The creatinine assay has traceable calibration to isotope dilution-mass spectrometry. Refer to KDIGO guidelines for clinical interpretation. In patients with unstable renal function, e.g. those with acute kidney injury, the eGFR may not accurately reflect actual GFR. Performed By: #### 2 4323-8 ####[facility]ITALCLIA [id number] [place] [address] [place] Glucose [Mass/Vol] 83 mg/dL Normal 74-99 [facility] Comment on above: Order Comment: Mady rivera Type: BLOOD SPECIMENOrdering Facility: [facility] Address: [address] [place] [address] Result Comment: The [place] Diabetes [employer] (ADA) provides guidance for cutoff values for fasting glucose and random glucose. The ADA defines fasting as no caloric intake for at least 8 hours. Fasting plasma glucose results between 100 to 125 mg/dL indicate increased risk for diabetes (prediabetes).Fasting plasma glucose results greater than or equal to 126 mg/dL meet the criteria for diagnosis of diabetes. In the absence of unequivocal hyperglycemia, results should be confirmed by repeat testing. In a patient with classic symptoms of hyperglycemia or hyperglycemic crisis, random plasma glucose results greater than or equal to 200 mg/dL meet the criteria for diagnosis of diabetes.Reference: Standards of Medical Care in Diabetes 2016, [place] [employer]. Diabetes Care. 2016.39(Suppl 1). Performed By: #### 2 4323-8 ####[facility]ITALCLIA [id number] [place] [address] [place] Potassium [Moles/Vol] Normal [facility] Comment on above: Order Comment: Mady rivera Type: BLOOD SPECIMENOrdering Facility: [facility] Address: [address] [place] [address] Result Comment: Unab le to assay due to interference from hemolysis. Suggest reorder as clinically indicated. Performed By: #### 2 4323-8 ####[facility] LABORATORYCLIA [id number] [place] [id number] [place] Protein [Mass/Vol] 5.3 g/dL Low 6.3-8.0 [facility] Comment on above: Order Comment: Mady rivera Type: BLOOD SPECIMENOrdering Facility: [facility] Address: [address] [place] [address] Performed By: #### 2 4323-8 ####[facility] LABORATORYCLIA [id number] [address] STATES OF [facility] Sodium [Moles/Vol] 132 mmol/L Low 136-144 [facility] Comment on above: Order Comment: Speci men Type: BLOOD SPECIMENOrdering Facility: [facility] Address: [address] [place] [address] Performed By: #### 2 4323-8 ####[facility] LABORATORYCLIA [id number] [address] STATES OF [facility] Urea nitrogen [Mass/Vol] 10 mg/dL Normal 7-21 [facility] Comment on above: Order Comment: Speci men Type: BLOOD SPECIMENOrdering Facility: [facility] Address: [address] [place] [address] Performed By: #### 2 4323-8 ####[facility] LABORATORYCLIA [id number] [address] OF [facility] THERAPY NTon 06-23-2024 THERAPY NT Normal [facility] CASE MANAGEMon 06-22-2024 CASE MANAGEM Normal [facility] CBC panel Auto (Bld)on 06-22 Erythrocyte distribution width (RBC) [Ratio] 18.2 % High 11.5-15.0 [facility] Comment on above: Order Comment: Speci men Type: BLOOD SPECIMENOrdering Facility: [facility] Address: [address] [place] [address] Performed By: #### 5 8410-2 ####[facility] LABORATORYCLIA [id number] [address] STATES OF [facility] Hematocrit (Bld) [Volume fraction] 35.6 % Low 36.0-46.0 [facility] Comment on above: Order Comment: Speci men Type: BLOOD SPECIMENOrdering Facility: [facility] Address: [address] [place] [address] Performed By: #### 5 8410-2 ####[facility] LABORATORYCLIA [id number] [place] [address] [place] Hemoglobin (Bld) [Mass/Vol] 11.6 g/dL Normal 11.5-15.5 [facility] Comment on above: Order Comment: Speci men Type: BLOOD SPECIMENOrdering Facility: [facility] Address: [address] [place] [address] Performed By: #### 5 8410-2 ####[facility] LABORATORYCLIA [id number] [address] OF [facility] MCH (RBC) [Entitic mass] 31.3 pg Normal 26.0-34.0 [facility] Comment on above: Order Comment: Speci men Type: BLOOD SPECIMENOrdering Facility: [facility] Address: [address] [place] [address] Performed By: #### 5 8410-2 ####[facility] LABORATORYCLIA [id number] [address] OF [place] MCHC (RBC) [Mass/Vol] 32.6 g/dL Normal 30.5-36.0 [facility] Comment on above: Order Comment: Speci men Type: BLOOD SPECIMENOrdering Facility: [facility] Address: [address] [place] [address] Performed By: #### 5 8410-2 ####[facility] LABORATORYCLIA [id number] [address] MCV (RBC) [Entitic vol] 96.0 fL Normal 80.0-100.0 [facility] Comment on above: Order Comment: Speci men Type: BLOOD SPECIMENOrdering Facility: [facility] Address: [address] [place] [address] Performed By: #### 5 8410-2 ####[facility] LABORATORYCLIA [id number] [address] Nucleated RBC (Bld) [#/Vol] 10*3/uL Normal <0.01 [facility] Comment on above: Order Comment: Speci men Type: BLOOD SPECIMENOrdering Facility: [facility] Address: [address] [place] [address] Performed By: #### 5 8410-2 ####[facility] LABORATORYCLIA [id number] [address] STATES [place] Platelet mean volume (Bld) [Entitic vol] 10.6 fL Normal 9.0-12.7 [facility] Comment on above: Order Comment: Speci men Type: BLOOD SPECIMENOrdering Facility: [facility] Address: [address] [place] [address] Performed By: #### 5 8410-2 ####[facility]ORATORYCLIA [id number] [address] STATES [place] Platelets (Bld) [#/Vol] 177 10*3/uL Normal 150-400 [facility] Comment on above: Order Comment: Speci men Type: BLOOD SPECIMENOrdering Facility: [facility] Address: [address] [place] [address] Performed By: #### 5 8410-2 ####[facility]ORATORYCLIA [id number] [address] RBC (Bld) [#/Vol] 3.71 10*6/uL Low 3.90-5.20 [facility] Comment on above: Order Comment: Speci men Type: BLOOD SPECIMENOrdering Facility: [facility] Address: [address] [place] [address] Performed By: #### 5 8410-2 ####[facility]ORATORYCLIA [id number] [address] STATES [place] WBC (Bld) [#/Vol] 6.07 10*3/uL Normal 3.70-11.00 [facility] Comment on above: Order Comment: Speci men Type: BLOOD SPECIMENOrdering Facility: [facility] Address: [address] [place] [address] Performed By: #### 5 8410-2 ####[facility]ORATORYCLIA [id number] [address] OF [place] Comprehensive metabolic 2000 panelon 06-22-2024 Albumin [Mass/Vol] 2.3 g/dL Low 3.9-4.9 [facility] Comment on above: Order Comment: Speci men Type: BLOOD SPECIMENOrdering Facility: [facility] Address: [facility] [place] [address] Performed By: #### 1 23-9, 43596-1 ####[facility] LABORATORYCLIA [id number] [address] STATES OF [facility] ALP [Catalytic activity/Vol] 370 U/L High 34-123 [facility] Comment on above: Order Comment: Speci men Type: BLOOD SPECIMENOrdering Facility: [facility] Address: [address] [place] [address] Performed By: #### 1 9, ####[facility]ORATORYCLIA [id number] [address] STATES OF [facility] ALT With P-5'-P [Catalytic activity/Vol] 53 U/L High 7-38 [facility] Comment on above: Order Comment: Speci men Type: BLOOD SPECIMENOrdering Facility: [facility] Address: [address] [place] [address] Performed By: #### 1 23-9, 25524-1 ####[facility]ATORYCLIA [id number] [address] Anion gap [Moles/Vol] 11 mmol/L Normal 8-15 [facility] Comment on above: Order Comment: Speci men Type: BLOOD SPECIMENOrdering Facility: [facility] Address: [address] [place] [address] Performed By: #### 1 23-9, 99772-7 ####[facility]ORATORYCLIA [id number] [address] [place] AST With P-5'-P [Catalytic activity/Vol] 103 U/L High 13-35 [facility] Comment on above: Order Comment: Speci men Type: BLOOD SPECIMENOrdering Facility: [facility] Address: [address] [place] [address] Performed By: #### 1 239, ####[facility]ATORYCLIA [id number] [place] [address] [place] Bilirubin [Mass/Vol] 4.2 mg/dL High 0.2-1.3 [facility] Comment on above: Order Comment: Speci men Type: BLOOD SPECIMENOrdering Facility: [facility] Address: [address] [place] [address] Performed By: #### 1 9123-9, ####[facility]ATORYCLIA [id number] [place] [address] [place] Calcium [Mass/Vol] 7.3 mg/dL Low 8.5-10.2 [facility] Comment on above: Order Comment: Speci men Type: BLOOD SPECIMENOrdering Facility: [facility] Address: [address] [place] [address] Performed By: #### 1 9123-9, ####[facility]ORATORYCLIA [id number] [place] [address] [place] Chloride [Moles/Vol] 106 mmol/L Normal 98-107 [facility] Comment on above: Order Comment: Speci men Type: BLOOD SPECIMENOrdering Facility: [facility] Address: [address] [place] [address] Performed By: #### 1 23-9, ####[facility]ORATORYCLIA [id number] [place] [address] [place] CO2 [Moles/Vol] 18 mmol/L Low 22-30 [facility] Comment on above: Order Comment: Speci men Type: BLOOD SPECIMENOrdering Facility: [facility] Address: [address] [place] [address] Performed By: #### 1 9123-9, ####[facility]ORATORYCLIA [id number] [place] [address] [place] Creatinine [Mass/Vol] 0.63 mg/dL Normal 0.58-0.96 [facility] Comment on above: Order Comment: Speci men Type: BLOOD SPECIMENOrdering Facility: [facility] Address: [address] [place] [address] Performed By: #### 1 9123-9, 87880-8 ####[facility] CARE SERVICESIA [id number] [place] [id number] [facility] [place] Creatinine and Glomerular filtration rate.predicted panel (S/P/Bld) 99 mL/min/1.73m??? Normal >=60 [facility] Comment on above: Order Comment: aMdy miguel Type: BLOOD SPECIMENOrdering Facility: [facility] Address: [address] [place] [address] Result Comment: Lily mated Glomerular Filtration Rate (eGFR) is calculated using the 2020 CKD-EPI creatinine equation. This equation utilizes serum creatinine, sex, and age as parameters. The creatinine assay has traceable calibration to isotope dilution-mass spectrometry. Refer to KDIGO guidelines for clinical interpretation. In patients with unstable renal function, e.g. those with acute kidney injury, the eGFR may not accurately reflect actual GFR. Performed By: #### 1 9123-9, 47986-7 ####[facility] C[facility] SERVICESIA [id number] [place] [id number] [place] Glucose [Mass/Vol] 82 mg/dL Normal 74-99 [facility] Comment on above: Order Comment: Mady rivera Type: BLOOD SPECIMENOrdering Facility: [facility] Address: [address] [place] [address] Result Comment: The [place] [employer] (ADA) provides guidance for cutoff values for fasting glucose and random glucose. The ADA defines fasting as no caloric intake for at least 8 hours. Fasting plasma glucose results between 100 to 125 mg/dL indicate increased risk for diabetes (prediabetes).Fasting plasma glucose results greater than or equal to 126 mg/dL meet the criteria for diagnosis of diabetes. In the absence of unequivocal hyperglycemia, results should be confirmed by repeat testing. In a patient with classic symptoms of hyperglycemia or hyperglycemic crisis, random plasma glucose results greater than or equal to 200 mg/dL meet the criteria for diagnosis of diabetes.Reference: Standards of Medical Care in Diabetes 2016, [place] [employer]. Diabetes Care. 2016.39(Suppl 1). Performed By: #### 1 23-9, ####[facility]ORATORYCLIA [id number] [place] [address] [place] Potassium [Moles/Vol] 4.1 mmol/L Normal 3.7-5.1 [facility] Comment on above: Order Comment: Speci men Type: BLOOD SPECIMENOrdering Facility: [facility] Address: [address] [place] [address] Performed By: #### 1 23-9, ####[facility]ORATORYCLIA [id number] [place] [address] [place] Protein [Mass/Vol] 5.0 g/dL Low 6.3-8.0 [facility] Comment on above: Order Comment: Speci men Type: BLOOD SPECIMENOrdering Facility: [facility] Address: [address] [place] [address] Performed By: #### 1 9, ####[facility]ORATORYCLIA [id number] [place] [address] [place] Sodium [Moles/Vol] 135 mmol/L Low 136-144 [facility] Comment on above: Order Comment: Speci men Type: BLOOD SPECIMENOrdering Facility: [facility] Address: [address] [place] [address] Performed By: #### 1 239, ####[facility]ATORYCLIA [id number] [place] [address] [place] Urea nitrogen [Mass/Vol] 9 mg/dL Normal 7-21 [facility] Comment on above: Order Comment: Speci men Type: BLOOD SPECIMENOrdering Facility: [facility] Address: [address] [place] [address] Performed By: #### 1 23-9, ####[facility]ATORYCLIA [id number] [place] [address] [place] Magnesium SerPl-mCncon 06-22 Magnesium [Mass/Vol] 1.2 mg/dL Low 1.7-2.3 [facility] Comment on above: Order Comment: Speci men Type: BLOOD SPECIMENOrdering Facility: [facility] Address: [address] [place] [address] Performed By: #### 1 9123-9, 06634-8 ####[facility]ORATORYCLIA [id number] [address] [place] THERAPY NTon 06-22-2024 THERAPY NT Normal [facility] CBC panel Auto (Bld)on 06-21 Erythrocyte distribution width (RBC) [Ratio] 17.8 % High 11.5-15.0 [facility] Comment on above: Order Comment: Speci men Type: BLOOD SPECIMENOrdering Facility: [facility] Address: [address] [place] [address] Performed By: #### 5 8410-2 ####[facility]ORATORYCLIA [id number] [address] STATES [facility] Hematocrit (Bld) [Volume fraction] 37.0 % Normal 36.0-46.0 [facility] Comment on above: Order Comment: Speci men Type: BLOOD SPECIMENOrdering Facility: [facility] Address: [address] [place] [address] Performed By: #### 5 8410-2 ####[facility]ORATORYCLIA [id number] [address] STATES [place] Hemoglobin (Bld) [Mass/Vol] 11.9 g/dL Normal 11.5-15.5 [facility] Comment on above: Order Comment: Speci men Type: BLOOD SPECIMENOrdering Facility: [facility] Address: [address] [place] [address] Performed By: #### 5 8410-2 ####[facility]ORATORYCLIA [id number] [address] STATES [facility] MCH (RBC) [Entitic mass] 30.4 pg Normal 26.0-34.0 [facility] Comment on above: Order Comment: Speci men Type: BLOOD SPECIMENOrdering Facility: [facility] Address: [address] [place] [address] Performed By: #### 5 8410-2 ####[facility]ORATORYCLIA [id number] [address] MCHC (RBC) [Mass/Vol] 32.2 g/dL Normal 30.5-36.0 [facility] Comment on above: Order Comment: Speci men Type: BLOOD SPECIMENOrdering Facility: [facility] Address: [address] [place] [address] Performed By: #### 5 8410-2 ####[facility]ORATORYCLIA [id number] [address] OF [facility] MCV (RBC) [Entitic vol] 94.6 fL Normal 80.0-100.0 [facility] Comment on above: Order Comment: Speci men Type: BLOOD SPECIMENOrdering Facility: [facility] Address: [address] [place] [address] Performed By: #### 5 8410-2 ####[facility]ATORYCLIA [id number] [address] Nucleated RBC (Bld) [#/Vol] 10*3/uL Normal <0.01 [facility] Comment on above: Order Comment: Speci men Type: BLOOD SPECIMENOrdering Facility: [facility] Address: [address] [place] [address] Performed By: #### 5 8410-2 ####[facility]ORATORYCLIA [id number] [address] STATES [facility] Platelet mean volume (Bld) [Entitic vol] 10.9 fL Normal 9.0-12.7 [facility] Comment on above: Order Comment: Speci men Type: BLOOD SPECIMENOrdering Facility: [facility] Address: [address] [place] [address] Performed By: #### 5 8410-2 ####[facility]ATORYCLIA [id number] [address] STATES [place] Platelets (Bld) [#/Vol] 175 10*3/uL Normal 150-400 [facility] Comment on above: Order Comment: Speci men Type: BLOOD SPECIMENOrdering Facility: [facility] Address: [facility] [place] [address] Performed By: #### 5 8410-2 ####[facility]ORATORYCLIA [id number] [address] STATES OF [facility] RBC (Bld) [#/Vol] 3.91 10*6/uL Normal 3.90-5.20 [facility] Comment on above: Order Comment: Speci men Type: BLOOD SPECIMENOrdering Facility: [facility] Address: [address] [place] [address] Performed By: #### 5 8410-2 ####[facility]ATORYCLIA [id number] [address] STATES OF [facility] WBC (Bld) [#/Vol] 6.98 10*3/uL Normal 3.70-11.00 [facility] Comment on above: Order Comment: Speci men Type: BLOOD SPECIMENOrdering Facility: [facility] Address: [address] [place] [address] Performed By: #### 5 8410-2 ####[facility]ATORYCLIA [id number] [address] OF [facility] Comprehensive metabolic 2000 panelon 06-21-2024 Albumin [Mass/Vol] 2.3 g/dL Low 3.9-4.9 [facility] Comment on above: Order Comment: Speci men Type: BLOOD SPECIMENOrdering Facility: [facility] Address: [address] [place] [address] Performed By: #### 2 4323-8, 52411-2 ####[facility]ORATORYCLIA [id number] [address] ALP [Catalytic activity/Vol] 375 U/L High 34-123 [facility] Comment on above: Order Comment: Speci men Type: BLOOD SPECIMENOrdering Facility: [facility] Address: [address] [place] [address] Performed By: #### 2 432-8, ####[facility]ORATORYCLIA [id number] [place] [address] [place] ALT With P-5'-P [Catalytic activity/Vol] 51 U/L High 7-38 [facility] Comment on above: Order Comment: Speci men Type: BLOOD SPECIMENOrdering Facility: [facility] Address: [address] [place] [address] Performed By: #### 2 8, ####[facility] LABORATORYCLIA [id number] [place] [address] [place] Anion gap [Moles/Vol] 8 mmol/L Normal 8-15 [facility] Comment on above: Order Comment: Speci men Type: BLOOD SPECIMENOrdering Facility: [facility] Address: [address] [place] [address] Performed By: #### 2 8, ####[facility]ORATORYCLIA [id number] [place] [address] [place] AST With P-5'-P [Catalytic activity/Vol] 114 U/L High 13-35 [facility] Comment on above: Order Comment: Speci men Type: BLOOD SPECIMENOrdering Facility: [facility] Address: [address] [place] [address] Performed By: #### 2 8, ####[facility]ORATORYCLIA [id number] [place] [address] [place] Bilirubin [Mass/Vol] 4.9 mg/dL High 0.2-1.3 [facility] Comment on above: Order Comment: Speci men Type: BLOOD SPECIMENOrdering Facility: [facility] Address: [address] [place] [address] Performed By: #### 2 4328, ####[facility]ORATORYCLIA [id number] [place] [address] [place] Calcium [Mass/Vol] 7.3 mg/dL Low 8.5-10.2 [facility] Comment on above: Order Comment: Speci men Type: BLOOD SPECIMENOrdering Facility: [facility] Address: [address] [place] [address] Performed By: #### 2 4323-8, ####[facility]ORATORYCLIA [id number] [place] [address] [place] Chloride [Moles/Vol] 101 mmol/L Normal 98-107 [facility] Comment on above: Order Comment: Speci men Type: BLOOD SPECIMENOrdering Facility: [facility] Address: [address] [place] [address] Performed By: #### 2 4328, ####[facility]ORATORYCLIA [id number] [address] STATES [place] CO2 [Moles/Vol] 23 mmol/L Normal 22-30 [facility] Comment on above: Order Comment: Speci men Type: BLOOD SPECIMENOrdering Facility: [facility] Address: [address] [place] [address] Performed By: #### 2 4328, ####[facility]ORATORYCLIA [id number] [place] [address] [place] Creatinine [Mass/Vol] 0.75 mg/dL Normal 0.58-0.96 [facility] Comment on above: Order Comment: Speci men Type: BLOOD SPECIMENOrdering Facility: [facility] Address: [address] [place] [address] Performed By: #### 2 4323-8, ####[facility] LABORATORYCLIA [id number] [address] OF [place] Creatinine and Glomerular filtration rate.predicted panel (S/P/Bld) 88 mL/min/1.73m??? Normal >=60 [facility] Comment on above: Order Comment: Speci men Type: BLOOD SPECIMENOrdering Facility: [facility] Address: [address] [place] [address] Result Comment: Lily mated Glomerular Filtration Rate (eGFR) is calculated using the 2020 CKD-EPI creatinine equation. This equation utilizes serum creatinine, sex, and age as parameters. The creatinine assay has traceable calibration to isotope dilution-mass spectrometry. Refer to KDIGO guidelines for clinical interpretation. In patients with unstable renal function, e.g. those with acute kidney injury, the eGFR may not accurately reflect actual GFR. Performed By: #### 2 4323-8, ####[facility] LABORATORYCLIA [id number] [place] [address] [place] Glucose [Mass/Vol] 81 mg/dL Normal 74-99 [facility] Comment on above: Order Comment: Mady rivera Type: BLOOD SPECIMENOrdering Facility: [facility] Address: [address] [place], [place] [id number] Result Comment: The [place] Diabetes [employer] (ADA) provides guidance for cutoff values for fasting glucose and random glucose. The ADA defines fasting as no caloric intake for at least 8 hours. Fasting plasma glucose results between 100 to 125 mg/dL indicate increased risk for diabetes (prediabetes).Fasting plasma glucose results greater than or equal to 126 mg/dL meet the criteria for diagnosis of diabetes. In the absence of unequivocal hyperglycemia, results should be confirmed by repeat testing. In a patient with classic symptoms of hyperglycemia or hyperglycemic crisis, random plasma glucose results greater than or equal to 200 mg/dL meet the criteria for diagnosis of diabetes.Reference: Standards of Medical Care in Diabetes 2016, [place] [employer]. Diabetes Care. 2016.39(Suppl 1). Performed By: #### 2 4323-, ####[facility] LABORATORYCLIA [id number] [place] [address] [place] Potassium [Moles/Vol] 4.4 mmol/L Normal 3.7-5.1 [facility] Comment on above: Order Comment: Mady rivera Type: BLOOD SPECIMENOrdering Facility: [facility] Address: [address] [place] [address] Performed By: #### 2 4323-, ####[facility]ORATORYCLIA [id number] [place] [address] [place] Protein [Mass/Vol] 5.2 g/dL Low 6.3-8.0 [facility] Comment on above: Order Comment: Speci men Type: BLOOD SPECIMENOrdering Facility: [facility] Address: [address] [place] [address] Performed By: #### 2 4323-8, ####[facility]ORATORYCLIA [id number] [address] [place] Sodium [Moles/Vol] 132 mmol/L Low 136-144 [facility] Comment on above: Order Comment: Speci men Type: BLOOD SPECIMENOrdering Facility: [facility] CLINIC Address: [address] [place] [address] Performed By: #### 2 4323-8, ####[facility] LABORATORYCLIA [id number] [address] STATES OF [facility] Urea nitrogen [Mass/Vol] 11 mg/dL Normal 7-21 [facility] Comment on above: Order Comment: Speci men Type: BLOOD SPECIMENOrdering Facility: [facility] Address: [address] [place] [address] Performed By: #### 2 4323-8, ####[facility] LABORATORYCLIA [id number] [address] [place] Magnesium SerPl-mCncon 06-21 Magnesium [Mass/Vol] 1.5 mg/dL Low 1.7-2.3 [facility] Comment on above: Order Comment: Speci men Type: BLOOD SPECIMENOrdering Facility: [facility] Address: [address] [place] [address] Performed By: #### 2 4323-8, ####[facility] LABORATORYCLIA [id number] [place] [id number] [place] CASE MANAGEMon 06-20-2024 CASE MANAGEM Normal [facility] CASE MANAGEM Normal [facility] CBC panel Auto (Bld)on 06-20 Erythrocyte distribution width (RBC) [Ratio] 17.6 % High 11.5-15.0 [facility] Comment on above: Order Comment: Speci men Type: BLOOD SPECIMENOrdering Facility: [facility] Address: [address] [place] [address] Performed By: #### 5 8410-2 ####[facility] LABORATORYCLIA [id number] [address] OF [facility] Hematocrit (Bld) [Volume fraction] 35.6 % Low 36.0-46.0 [facility] Comment on above: Order Comment: Speci men Type: BLOOD SPECIMENOrdering Facility: [facility] Address: [address] [place] [address] Performed By: #### 5 8410-2 ####[facility] LABORATORYCLIA [id number] [address] [place] Hemoglobin (Bld) [Mass/Vol] 11.7 g/dL Normal 11.5-15.5 [facility] Comment on above: Order Comment: Speci men Type: BLOOD SPECIMENOrdering Facility: [facility] Address: [address] [place] [address] Performed By: #### 5 8410-2 ####[facility]ORATORYCLIA [id number] [address] [place] MCH (RBC) [Entitic mass] 31.0 pg Normal 26.0-34.0 [facility] Comment on above: Order Comment: Speci men Type: BLOOD SPECIMENOrdering Facility: [facility] Address: [address] [place] [address] Performed By: #### 5 8410-2 ####[facility]ORATORYCLIA [id number] [address] [place] MCHC (RBC) [Mass/Vol] 32.9 g/dL Normal 30.5-36.0 [facility] Comment on above: Order Comment: Speci men Type: BLOOD SPECIMENOrdering Facility: [facility] Address: [address] [place] [address] Performed By: #### 5 8410-2 ####[facility]ORATORYCLIA [id number] [address] OF [place] MCV (RBC) [Entitic vol] 94.4 fL Normal 80.0-100.0 [facility] Comment on above: Order Comment: Speci men Type: BLOOD SPECIMENOrdering Facility: [facility] Address: [address] [place] [address] Performed By: #### 5 8410-2 ####[facility]ATORYCLIA [id number] [address] [place] Nucleated RBC (Bld) [#/Vol] 10*3/uL Normal <0.01 [facility] Comment on above: Order Comment: Speci men Type: BLOOD SPECIMENOrdering Facility: [facility] Address: [facility] [place] [address] Performed By: #### 5 8410-2 ####[facility]ORATORYCLIA [id number] [address] [place] Platelet mean volume (Bld) [Entitic vol] 11.7 fL Normal 9.0-12.7 [facility] Comment on above: Order Comment: Speci men Type: BLOOD SPECIMENOrdering Facility: [facility] Address: [address] [place] [address] Performed By: #### 5 8410-2 ####[facility]ATORYCLIA [id number] [address] [place] Platelets (Bld) [#/Vol] 149 10*3/uL Low 150-400 [facility] Comment on above: Order Comment: Speci men Type: BLOOD SPECIMENOrdering Facility: [facility] Address: [address] [place] [address] Performed By: #### 5 8410-2 ####[facility]ORATORYCLIA [id number] [address] [place] RBC (Bld) [#/Vol] 3.77 10*6/uL Low 3.90-5.20 [facility] Comment on above: Order Comment: Speci men Type: BLOOD SPECIMENOrdering Facility: [facility] Address: [address] [place], [place] [address] Performed By: #### 5 8410-2 ####[facility]ORATORYCLIA [id number] [place] [address] [facility] [place] WBC (Bld) [#/Vol] 7.73 10*3/uL Normal 3.70-11.00 [facility] Comment on above: Order Comment: Speci men Type: BLOOD SPECIMENOrdering Facility: [facility] Address: [address] [place] [address] Performed By: #### 5 8410-2 ####[facility]ORATORYCLIA [id number] [place] [address] [facility] Comprehensive metabolic 2000 panelon 06-20-2024 Albumin [Mass/Vol] 2.2 g/dL Low 3.9-4.9 [facility] Comment on above: Order Comment: Speci men Type: BLOOD SPECIMENOrdering Facility: [facility] Address: [address] [place] [address] Performed By: #### 1 9123-9, 19464-5, 2777-1 ####[facility]ORATORYCLIA [id number] [place] [address] [place] ALP [Catalytic activity/Vol] 344 U/L High 34-123 [facility] Comment on above: Order Comment: Speci men Type: BLOOD SPECIMENOrdering Facility: [facility] Address: [address] [place] [address] Performed By: #### 1 9123-9, 23754-5, 2777-1 ####[facility]ORATORYCLIA [id number] [place] [address] [place] ALT With P-5'-P [Catalytic activity/Vol] 44 U/L High 7-38 [facility] Comment on above: Order Comment: Speci men Type: BLOOD SPECIMENOrdering Facility: [facility] Address: [address] [place] [address] Performed By: #### 1 9123-9, 38737-4, 2777-1 ####[facility]ORATORYCLIA [id number] [place] [address] [place] Anion gap [Moles/Vol] 11 mmol/L Normal 8-15 [facility] Comment on above: Order Comment: Speci men Type: BLOOD SPECIMENOrdering Facility: [facility] Address: [address] [place] [address] Performed By: #### 1 9123-9, 95583-2, 2777-1 ####[facility] LABORATORYCLIA [id number] [place] [address] [place] AST With P-5'-P [Catalytic activity/Vol] Normal [facility] Comment on above: Order Comment: Speci men Type: BLOOD SPECIMENOrdering Facility: [facility] Address: [address] [place] [address] Result Comment: Unab le to assay due to interference from hemolysis. Suggest reorder as clinically indicated. Performed By: #### 1 9123-9, 59395-6, 2776- ####[facility]ORATORYCLIA [id number] [place] [address] [place] Bilirubin [Mass/Vol] 4.4 mg/dL High 0.2-1.3 [facility] Comment on above: Order Comment: Speci men Type: BLOOD SPECIMENOrdering Facility: [facility] Address: [address] [place] [address] Performed By: #### 1 9123-9, 37549-9, 277- ####[facility]ATORYCLIA [id number] [place] [address] [place] Calcium [Mass/Vol] 7.4 mg/dL Low 8.5-10.2 [facility] Comment on above: Order Comment: Speci men Type: BLOOD SPECIMENOrdering Facility: [facility] Address: [address] [place] [address] Performed By: #### 1 9123-9, 83003-0, 2777-1 ####[facility]ORATORYCLIA [id number] [place] [address] [place] Chloride [Moles/Vol] 102 mmol/L Normal 98-107 [facility] Comment on above: Order Comment: Speci men Type: BLOOD SPECIMENOrdering Facility: [facility] Address: [address] [place] [address] Performed By: #### 1 9123-9, 38872-4, 2776-05 ####[facility]ATORYCLIA [id number] [place] [address] [place] [facility] CO2 [Moles/Vol] 25 mmol/L Normal 22-30 [facility] Comment on above: Order Comment: Speci men Type: BLOOD SPECIMENOrdering Facility: [facility] Address: [address] [place] [address] Performed By: #### 1 9123-9, , 2776-05 ####[facility]ORATORYCLIA [id number] [address] OF [facility] Creatinine [Mass/Vol] 0.66 mg/dL Normal 0.58-0.96 [facility] Comment on above: Order Comment: Speci men Type: BLOOD SPECIMENOrdering Facility: [facility] Address: [address] [place] [address] Performed By: #### 1 9123-9, , 2776-05 ####[facility] LABORATORYCLIA [id number] [address] Creatinine and Glomerular filtration rate.predicted panel (S/P/Bld) 97 mL/min/1.73m??? Normal >=60 [facility] Comment on above: Order Comment: Speci men Type: BLOOD SPECIMENOrdering Facility: [facility] Address: [address] [place] [address] Result Comment: Lily mated Glomerular Filtration Rate (eGFR) is calculated using the 2020 CKD-EPI creatinine equation. This equation utilizes serum creatinine, sex, and age as parameters. The creatinine assay has traceable calibration to isotope dilution-mass spectrometry. Refer to KDIGO guidelines for clinical interpretation. In patients with unstable renal function, e.g. those with acute kidney injury, the eGFR may not accurately reflect actual GFR. Performed By: #### 1 9123-9, , 2776-05 ####[facility]ATORYCLIA [id number] [place] [address] [place] Glucose [Mass/Vol] 62 mg/dL Low 74-99 [facility] Comment on above: Order Comment: Speci men Type: BLOOD SPECIMENOrdering Facility: [facility] Address: [address] [place] [address] Result Comment: The [place] [employer] (ADA) provides guidance for cutoff values for fasting glucose and random glucose. The ADA defines fasting as no caloric intake for at least 8 hours. Fasting plasma glucose results between 100 to 125 mg/dL indicate increased risk for diabetes (prediabetes).Fasting plasma glucose results greater than or equal to 126 mg/dL meet the criteria for diagnosis of diabetes. In the absence of unequivocal hyperglycemia, results should be confirmed by repeat testing. In a patient with classic symptoms of hyperglycemia or hyperglycemic crisis, random plasma glucose results greater than or equal to 200 mg/dL meet the criteria for diagnosis of diabetes.Reference: Standards of Medical Care in Diabetes 2016, [place] [employer]. Diabetes Care. 2016.39(Suppl 1). Performed By: #### 1 9123-9, , 2776-05 ####[facility] LABORATORYCLIA [id number] [place] [address] [place] Potassium [Moles/Vol] 4.5 mmol/L Normal 3.7-5.1 [facility] Comment on above: Order Comment: Speci men Type: BLOOD SPECIMENOrdering Facility: [facility] Address: [address] [place] [address] Performed By: #### 1 9123-9, , 2776-05 ####[facility]ATORYCLIA [id number] [place] [address] [place] Protein [Mass/Vol] 4.8 g/dL Low 6.3-8.0 [facility] Comment on above: Order Comment: Speci men Type: BLOOD SPECIMENOrdering Facility: [facility] Address: [address] [place], [place] [address] Performed By: #### 1 9123-9, , 2776-05 ####[facility]ORATORYCLIA [id number] [place] [address] [place] Sodium [Moles/Vol] 138 mmol/L Normal 136-144 [facility] Comment on above: Order Comment: Speci men Type: BLOOD SPECIMENOrdering Facility: [facility] Address: [address] [place] [address] Performed By: #### 1 9123-9, 52341-4, 2777-1 ####[facility]ATORYCLIA [id number] [place] [address] [place] Urea nitrogen [Mass/Vol] 13 mg/dL Normal 7-21 [facility] Comment on above: Order Comment: Speci men Type: BLOOD SPECIMENOrdering Facility: [facility] Address: [address] [place] [address] Performed By: #### 1 9123-9, 35774-1, 2777 ####[facility]ORATORYCLIA [id number] [place] [address] [place] Magnesium SerPl-mCncon 06-20 Magnesium [Mass/Vol] 1.7 mg/dL Normal 1.7-2.3 [facility] Comment on above: Order Comment: Speci men Type: BLOOD SPECIMENOrdering Facility: [facility] Address: [address] [place] [address] Performed By: #### 1 9123-9, 22257-2, 2777- ####[facility]ATORYCLIA [id number] [place] [address] [place] Phosphate SerPl-mCncon 06-20 Phosphate [Mass/Vol] 1.3 mg/dL Low 2.7-4.8 [facility] Comment on above: Order Comment: Speci men Type: BLOOD SPECIMENOrdering Facility: [facility] Address: [address] [place] [address] Performed By: #### 1 9123-9, 67577-2, 2777-1 ####[facility]ORATORYCLIA [id number] [address] [place] THERAPY NTon 06-20-2024 THERAPY NT Normal [facility] CASE MANAGEMon 06-19-2024 CASE MANAGEM Normal [facility] CBC panel Auto (Bld)on 06-19 Erythrocyte distribution width (RBC) [Ratio] 17.9 % High 11.5-15.0 [facility] Comment on above: Order Comment: Speci men Type: BLOOD SPECIMENOrdering Facility: [facility] Address: [address] [place] [address] Performed By: #### 5 8410-2 ####[facility]ORATORYCLIA [id number] [address] OF [facility] Hematocrit (Bld) [Volume fraction] 41.7 % Normal 36.0-46.0 [facility] Comment on above: Order Comment: Speci men Type: BLOOD SPECIMENOrdering Facility: [facility] Address: [address] [place] [address] Performed By: #### 5 8410-2 ####[facility]ATORYCLIA [id number] [address] [place] Hemoglobin (Bld) [Mass/Vol] 13.6 g/dL Normal 11.5-15.5 [facility] Comment on above: Order Comment: Speci men Type: BLOOD SPECIMENOrdering Facility: [facility] Address: [address] [place] [address] Performed By: #### 5 8410-2 ####[facility]ATORYCLIA [id number] [address] [place] MCH (RBC) [Entitic mass] 31.3 pg Normal 26.0-34.0 [facility] Comment on above: Order Comment: Speci men Type: BLOOD SPECIMENOrdering Facility: [facility] Address: [address] [place] [address] Performed By: #### 5 8410-2 ####[facility]ATORYCLIA [id number] [address] [place] MCHC (RBC) [Mass/Vol] 32.6 g/dL Normal 30.5-36.0 [facility] Comment on above: Order Comment: Speci men Type: BLOOD SPECIMENOrdering Facility: [facility] Address: [address] [place] [address] Performed By: #### 5 8410-2 ####[facility] LABORATORYCLIA [id number] [address] MCV (RBC) [Entitic vol] 95.9 fL Normal 80.0-100.0 [facility] Comment on above: Order Comment: Speci men Type: BLOOD SPECIMENOrdering Facility: [facility] Address: [address] [place] [address] Performed By: #### 5 8410-2 ####[facility]ATORYCLIA [id number] [address] [place] Nucleated RBC (Bld) [#/Vol] 0.02 10*3/uL High <0.01 [facility] Comment on above: Order Comment: Speci men Type: BLOOD SPECIMENOrdering Facility: [facility] Address: [address] [place] [address] Performed By: #### 5 8410-2 ####[facility]ATORYCLIA [id number] [address] Platelet mean volume (Bld) [Entitic vol] 12.0 fL Normal 9.0-12.7 [facility] Comment on above: Order Comment: Speci men Type: BLOOD SPECIMENOrdering Facility: [facility] Address: [address] [place] [address] Performed By: #### 5 8410-2 ####[facility]ATORYCLIA [id number] [address] Platelets (Bld) [#/Vol] 97 10*3/uL Low 150-400 [facility] Comment on above: Order Comment: Speci men Type: BLOOD SPECIMENOrdering Facility: [facility] Address: [address] [place] [address] Performed By: #### 5 8410-2 ####[facility]ATORYCLIA [id number] [address] [place] RBC (Bld) [#/Vol] 4.35 10*6/uL Normal 3.90-5.20 [facility] Comment on above: Order Comment: Speci men Type: BLOOD SPECIMENOrdering Facility: [facility] Address: [address] [place] [address] Performed By: #### 5 8410-2 ####[facility]ATORYCLIA [id number] [address] WBC (Bld) [#/Vol] 7.18 10*3/uL Normal 3.70-11.00 [facility] Comment on above: Order Comment: Speci men Type: BLOOD SPECIMENOrdering Facility: [facility] Address: [address] [place] [address] Performed By: #### 5 8410-2 ####[facility]ATORYCLIA [id number] [address] CONSULT PROGon 06-19-2024 CONSULT PROG Normal [facility] Comprehensive metabolic 2000 panelon 06-19-2024 Albumin [Mass/Vol] 2.3 g/dL Low 3.9-4.9 [facility] Comment on above: Order Comment: Speci men Type: BLOOD SPECIMENOrdering Facility: [facility] Address: [address] [place] [address] Performed By: #### 2 4323-8, 77341-0 ####[facility]ATORYCLIA [id number] [address] [place] ALP [Catalytic activity/Vol] 386 U/L High 34-123 [facility] Comment on above: Order Comment: Speci men Type: BLOOD SPECIMENOrdering Facility: [facility] Address: [address] [place] [address] Performed By: #### 2 4323-8, 61537-4 ####[facility]ATORYCLIA [id number] [address] ALT With P-5'-P [Catalytic activity/Vol] 35 U/L Normal 7-38 [facility] Comment on above: Order Comment: Speci men Type: BLOOD SPECIMENOrdering Facility: [facility] Address: [address] [place] [address] Performed By: #### 2 4323-8, ####[facility]ORATORYCLIA [id number] [place] [address] [place] Anion gap [Moles/Vol] 13 mmol/L Normal 8-15 [facility] Comment on above: Order Comment: Speci men Type: BLOOD SPECIMENOrdering Facility: [facility] Address: [address] [place] [address] Performed By: #### 2 4322-8, ####[facility]ORATORYCLIA [id number] [place] [address] [place] AST With P-5'-P [Catalytic activity/Vol] 112 U/L High 13-35 [facility] Comment on above: Order Comment: Speci men Type: BLOOD SPECIMENOrdering Facility: [facility] Address: [address] [place] [address] Performed By: #### 2 4322-8, ####[facility]ORATORYCLIA [id number] [place] [address] [place] Bilirubin [Mass/Vol] 5.6 mg/dL High 0.2-1.3 [facility] Comment on above: Order Comment: Speci men Type: BLOOD SPECIMENOrdering Facility: [facility] Address: [address] [place] [address] Performed By: #### 2 4323-8, ####[facility]ATORYCLIA [id number] [address] [place] Calcium [Mass/Vol] 7.6 mg/dL Low 8.5-10.2 [facility] Comment on above: Order Comment: Speci men Type: BLOOD SPECIMENOrdering Facility: [facility] Address: [address] [place] [address] Performed By: #### 2 4323-8, ####[facility]ORATORYCLIA [id number] [address] [place] Chloride [Moles/Vol] 104 mmol/L Normal 98-107 [facility] Comment on above: Order Comment: Speci men Type: BLOOD SPECIMENOrdering Facility: [facility] Address: [address] [place] [address] Performed By: #### 2 4323-8, ####[facility] LABORATORYCLIA [id number] [place] [id number] [facility] [place] CO2 [Moles/Vol] 26 mmol/L Normal 22-30 [facility] Comment on above: Order Comment: Speci men Type: BLOOD SPECIMENOrdering Facility: [facility] Address: [address] [place] [address] Performed By: #### 2 4323-8, ####[facility]ATORYCLIA [id number] [address] Creatinine [Mass/Vol] 0.65 mg/dL Normal 0.58-0.96 [facility] Comment on above: Order Comment: Speci men Type: BLOOD SPECIMENOrdering Facility: [facility] Address: [address] [place] [address] Performed By: #### 2 4323-8, ####[facility]ATORYCLIA [id number] [address] Creatinine and Glomerular filtration rate.predicted panel (S/P/Bld) 98 mL/min/1.73m??? Normal >=60 [facility] Comment on above: Order Comment: Speci men Type: BLOOD SPECIMENOrdering Facility: [facility] Address: [address] [place] [address] Result Comment: Lily mated Glomerular Filtration Rate (eGFR) is calculated using the 2020 CKD-EPI creatinine equation. This equation utilizes serum creatinine, sex, and age as parameters. The creatinine assay has traceable calibration to isotope dilution-mass spectrometry. Refer to KDIGO guidelines for clinical interpretation. In patients with unstable renal function, e.g. those with acute kidney injury, the eGFR may not accurately reflect actual GFR. Performed By: #### 2 4323-8, ####[facility] [id number] [place] [address] [place] Glucose [Mass/Vol] 215 mg/dL High 74-99 [facility] Comment on above: Order Comment: Mady rivera Type: BLOOD SPECIMENOrdering Facility: [facility] Address: [address] [place] [address] Result Comment: The [place] Diabetes [employer] (ADA) provides guidance for cutoff values for fasting glucose and random glucose. The ADA defines fasting as no caloric intake for at least 8 hours. Fasting plasma glucose results between 100 to 125 mg/dL indicate increased risk for diabetes (prediabetes).Fasting plasma glucose results greater than or equal to 126 mg/dL meet the criteria for diagnosis of diabetes. In the absence of unequivocal hyperglycemia, results should be confirmed by repeat testing. In a patient with classic symptoms of hyperglycemia or hyperglycemic crisis, random plasma glucose results greater than or equal to 200 mg/dL meet the criteria for diagnosis of diabetes.Reference: Standards of Medical Care in Diabetes 2016, [place] [employer]. Diabetes Care. 2016.39(Suppl 1). Performed By: #### 2 4323-8, ####[facility]IA [id number] [place] [address] [place] Potassium [Moles/Vol] 4.6 mmol/L Normal 3.7-5.1 [facility] Comment on above: Order Comment: Mady rivera Type: BLOOD SPECIMENOrdering Facility: [facility] Address: [address] [place] [address] Performed By: #### 2 4323-8, ####[facility] LABORATORYCLIA [id number] [place] [address] [place] Protein [Mass/Vol] 5.1 g/dL Low 6.3-8.0 [facility] Comment on above: Order Comment: Mady rivera Type: BLOOD SPECIMENOrdering Facility: [facility] Address: [address] [place], [place] [address] Performed By: #### 2 4323-8, 66917-1 ####[facility] LABORATORYCLIA [id number] [place] [address] [place] Sodium [Moles/Vol] 143 mmol/L Normal 136-144 [facility] Comment on above: Order Comment: Speci men Type: BLOOD SPECIMENOrdering Facility: [facility] Address: [address] [place] [address] Performed By: #### 2 432-8, ####[facility] LABORATORYCLIA [id number] [place] [address] [place] Urea nitrogen [Mass/Vol] 17 mg/dL Normal 7-21 [facility] Comment on above: Order Comment: Speci men Type: BLOOD SPECIMENOrdering Facility: [facility] Address: [address] [place] [address] Performed By: #### 2 432-8, 80322-4 ####[facility] LABORATORYCLIA [id number] [place] [id number] [place] Culture, Blood (WB)on 2024 CUB RIGHT ANKLE Blood cultures x2, from two different sites No growth in 5 days. Normal [facility] Comment on above: Performed By: #### L 300.4310, L501.4020, M200.1000, L100.0100, L500.4050, L503.6005, L300.3900, L501.3620 ####[facility] [address] [place], [place], [address] Magnesium SerPl-mCncon 06-19 Magnesium [Mass/Vol] 1.2 mg/dL Low 1.7-2.3 [facility] Comment on above: Order Comment: Speci men Type: BLOOD SPECIMENOrdering Facility: [facility] Address: [address] [place], [place] [address] Performed By: #### 2 4323-8, ####[facility] LABORATORYCLIA [id number] [place] [address] [place] NUTRITIONon 06-19-2024 NUTRITION Normal [facility] THERAPY NTon 06-19-2024 THERAPY NT Normal [facility] ALLIED HEALTHon 06-18-2024 ALLIED HEALTH Normal [facility] CASE MANAGEMon 06-18-2024 CASE MANAGEM Normal [facility] CBC panel Auto (Bld)on 06-18 Erythrocyte distribution width (RBC) [Ratio] 17.2 % High 11.5-15.0 [facility] Comment on above: Order Comment: Speci men Type: BLOOD SPECIMENOrdering Facility: [facility] Address: [address] [place] [address] Performed By: #### 5 8410-2 ####[facility] LABORATORYCLIA [id number] [address] [place] Hematocrit (Bld) [Volume fraction] 39.1 % Normal 36.0-46.0 [facility] Comment on above: Order Comment: Speci men Type: BLOOD SPECIMENOrdering Facility: [facility] Address: [address] [place] [address] Performed By: #### 5 8410-2 ####[facility] LABORATORYCLIA [id number] [place] [address] [place] Hemoglobin (Bld) [Mass/Vol] 12.3 g/dL Normal 11.5-15.5 [facility] Comment on above: Order Comment: Speci men Type: BLOOD SPECIMENOrdering Facility: [facility] Address: [address] [place] [address] Performed By: #### 5 8410-2 ####[facility] LABORATORYCLIA [id number] [place] [address] [place] MCH (RBC) [Entitic mass] 30.4 pg Normal 26.0-34.0 [facility] Comment on above: Order Comment: Speci men Type: BLOOD SPECIMENOrdering Facility: [facility] Address: [address] [place] [address] Performed By: #### 5 8410-2 ####[facility]ORATORYCLIA [id number] [address] [place] MCHC (RBC) [Mass/Vol] 31.5 g/dL Normal 30.5-36.0 [facility] Comment on above: Order Comment: Speci men Type: BLOOD SPECIMENOrdering Facility: [facility] Address: [address] [place] [address] Performed By: #### 5 8410-2 ####[facility]ORATORYCLIA [id number] [address] MCV (RBC) [Entitic vol] 96.5 fL Normal 80.0-100.0 [facility] Comment on above: Order Comment: Speci men Type: BLOOD SPECIMENOrdering Facility: [facility] Address: [address] [place] [address] Performed By: #### 5 8410-2 ####[facility]ATORYCLIA [id number] [address] Nucleated RBC (Bld) [#/Vol] 0.03 10*3/uL High <0.01 [facility] Comment on above: Order Comment: Speci men Type: BLOOD SPECIMENOrdering Facility: [facility] Address: [address] [place] [address] Performed By: #### 5 8410-2 ####[facility]ORATORYCLIA [id number] [address] [place] Platelet mean volume (Bld) [Entitic vol] 11.9 fL Normal 9.0-12.7 [facility] Comment on above: Order Comment: Speci men Type: BLOOD SPECIMENOrdering Facility: [facility] Address: [address] [place] [address] Performed By: #### 5 8410-2 ####[facility]ORATORYCLIA [id number] [address] OF [place] Platelets (Bld) [#/Vol] 49 10*3/uL Low 150-400 [facility] Comment on above: Order Comment: Speci men Type: BLOOD SPECIMENOrdering Facility: [facility] Address: [address] [place] [address] Result Comment: No c lot detected. Performed By: #### 5 8410-2 ####[facility]ORATORYCLIA [id number] [address] OF [facility] RBC (Bld) [#/Vol] 4.05 10*6/uL Normal 3.90-5.20 [facility] Comment on above: Order Comment: Speci men Type: BLOOD SPECIMENOrdering Facility: [facility] Address: [address] [place] [address] Performed By: #### 5 8410-2 ####[facility]ATORYCLIA [id number] [address] OF [facility] WBC (Bld) [#/Vol] 6.63 10*3/uL Normal 3.70-11.00 [facility] Comment on above: Order Comment: Speci men Type: BLOOD SPECIMENOrdering Facility: [facility] Address: [address] [place] [address] Performed By: #### 5 8410-2 ####[facility]ORATORYCLIA [id number] [address] OF [facility] CONSULT PROGon 06-18-2024 CONSULT PROG Normal [facility] CT CHEST WO IVCONon 06-18-[address] CHEST WO IVCON Normal [facility] Comprehensive metabolic 2000 panelon 06-18-2024 Albumin [Mass/Vol] 2.0 g/dL Low 3.9-4.9 [facility] Comment on above: Order Comment: Speci men Type: BLOOD SPECIMENOrdering Facility: [facility] Address: [address] [place] [address] Performed By: #### 2 4323-8, 2777-1 ####[facility]ORATORYCLIA [id number] [address] ALP [Catalytic activity/Vol] 245 U/L High 34-123 [facility] Comment on above: Order Comment: Speci men Type: BLOOD SPECIMENOrdering Facility: [facility] Address: [address] [place] [address] Performed By: #### 2 4323-8, 2776- ####[facility]ORATORYCLIA [id number] [place] [address] [place] ALT With P-5'-P [Catalytic activity/Vol] 17 U/L Normal 7-38 [facility] Comment on above: Order Comment: Speci men Type: BLOOD SPECIMENOrdering Facility: [facility] Address: [address] [place] [address] Performed By: #### 2 4323-8, 2776-05 ####[facility]ORATORYCLIA [id number] [address] STATES OF [facility] Anion gap [Moles/Vol] 12 mmol/L Normal 8-15 [facility] Comment on above: Order Comment: Speci men Type: BLOOD SPECIMENOrdering Facility: [facility] Address: [address] [place] [address] Performed By: #### 2 432-8, 2776-05 ####[facility]ATORYCLIA [id number] [address] [place] AST With P-5'-P [Catalytic activity/Vol] 65 U/L High 13-35 [facility] Comment on above: Order Comment: Speci men Type: BLOOD SPECIMENOrdering Facility: [facility] Address: [address] [place] [address] Performed By: #### 2 4323-8, 2776-05 ####[facility]ORATORYCLIA [id number] [place] [address] [place] Bilirubin [Mass/Vol] 4.9 mg/dL High 0.2-1.3 [facility] Comment on above: Order Comment: Speci men Type: BLOOD SPECIMENOrdering Facility: [facility] Address: [facility] [place] [address] Performed By: #### 2 4323-8, 2776-05 ####[facility]ORATORYCLIA [id number] [place] [address] [place] Calcium [Mass/Vol] 6.9 mg/dL Low 8.5-10.2 [facility] Comment on above: Order Comment: Speci men Type: BLOOD SPECIMENOrdering Facility: [facility] Address: [address] [place] [address] Performed By: #### 2 4323-8, 277- ####[facility]ATORYCLIA [id number] [place] [address] [place] Chloride [Moles/Vol] 105 mmol/L Normal 98-107 [facility] Comment on above: Order Comment: Speci men Type: BLOOD SPECIMENOrdering Facility: [facility] Address: [address] [place] [address] Performed By: #### 2 4323-8, 2776-05 ####[facility]ATORYCLIA [id number] [address] [place] CO2 [Moles/Vol] 25 mmol/L Normal 22-30 [facility] Comment on above: Order Comment: Speci men Type: BLOOD SPECIMENOrdering Facility: [facility] Address: [address] [place] [address] Performed By: #### 2 4323-8, 2776-05 ####[facility]ATORYCLIA [id number] [address] [place] Creatinine [Mass/Vol] 0.85 mg/dL Normal 0.58-0.96 [facility] Comment on above: Order Comment: Speci men Type: BLOOD SPECIMENOrdering Facility: [facility] Address: [address] [place] [address] Performed By: #### 2 4323-8, 2776-05 ####[facility]ORATORYCLIA [id number] [address] [place] Creatinine and Glomerular filtration rate.predicted panel (S/P/Bld) 76 mL/min/1.73m??? Normal >=60 [facility] Comment on above: Order Comment: Speci men Type: BLOOD SPECIMENOrdering Facility: [facility] Address: [address] [place], [place] [address] Result Comment: Lily mated Glomerular Filtration Rate (eGFR) is calculated using the 2020 CKD-EPI creatinine equation. This equation utilizes serum creatinine, sex, and age as parameters. The creatinine assay has traceable calibration to isotope dilution-mass spectrometry. Refer to KDIGO guidelines for clinical interpretation. In patients with unstable renal function, e.g. those with acute kidney injury, the eGFR may not accurately reflect actual GFR. Performed By: #### 2 4323-8, 277- ####[facility]ORATORYCLIA [id number] [place] [address] [place] Glucose [Mass/Vol] 111 mg/dL High 74-99 [facility] Comment on above: Order Comment: Mady rivera Type: BLOOD SPECIMENOrdering Facility: [facility] Address: [address] [place] [address] Result Comment: The [place] [employer] (ADA) provides guidance for cutoff values for fasting glucose and random glucose. The ADA defines fasting as no caloric intake for at least 8 hours. Fasting plasma glucose results between 100 to 125 mg/dL indicate increased risk for diabetes (prediabetes).Fasting plasma glucose results greater than or equal to 126 mg/dL meet the criteria for diagnosis of diabetes. In the absence of unequivocal hyperglycemia, results should be confirmed by repeat testing. In a patient with classic symptoms of hyperglycemia or hyperglycemic crisis, random plasma glucose results greater than or equal to 200 mg/dL meet the criteria for diagnosis of diabetes.Reference: Standards of Medical Care in Diabetes 2016, [place] [employer]. Diabetes Care. 2016.39(Suppl 1). Performed By: #### 2 4323-8, 27711-11 ####[facility]ORATORYCLIA [id number] [place] [id number] [place] Potassium [Moles/Vol] 3.5 mmol/L Low 3.7-5.1 [facility] Comment on above: Order Comment: Mady rivera Type: BLOOD SPECIMENOrdering Facility: [facility] Address: [address] [place] [address] Performed By: #### 2 4323-8, 2777- ####[facility]ORATORYCLIA [id number] [address] Protein [Mass/Vol] 4.3 g/dL Low 6.3-8.0 [facility] Comment on above: Order Comment: Mady rivera Type: BLOOD SPECIMENOrdering Facility: [facility] Address: [address] [place] [address] Performed By: #### 2 4323-8, 2777-1 ####[facility]ORATORYCLIA [id number] [address] STATES [facility] Sodium [Moles/Vol] 142 mmol/L Normal 136-144 [facility] Comment on above: Order Comment: Mady rivera Type: BLOOD SPECIMENOrdering Facility: [facility] Address: [address] [place] [address] Performed By: #### 2 4323-8, 2777-1 ####[facility]ATORYCLIA [id number] [address] STATES [facility] Urea nitrogen [Mass/Vol] 21 mg/dL Normal 7-21 [facility] Comment on above: Order Comment: Mady rivera Type: BLOOD SPECIMENOrdering Facility: [facility] Address: [address] [place] [address] Performed By: #### 2 4323-8, 2777-1 ####[facility]ORATORYCLIA [id number] [address] OF [place] PT panel Coag (PPP)on 2024 INR Coag (PPP) [Relative time] 1.3 {INR} Normal 0.9-1.3 [facility] Comment on above: Order Comment: Mady rivera Type: BLOOD SPECIMENOrdering Facility: [facility] Address: [address] [place] [address] Result Comment: Chelsea min K Antagonist (VKA) Therapeutic Range: INR 2 to 3 (Target INR of 2.5)Note: For patients treated with VKA drugs, such as warfarin, the [place] [employer] 2012 Guideline recommends a therapeutic INR range of 2 to 3 (target INR of 2.5). This recommendation includes high-risk patients with antiphospholipid syndrome with previous arterial or venous thromboembolism, current-generation mechanical or bioprosthetic aortic heart valve replacement.Note: Patients with mechanical aortic valve replacement and additional risk factors for thromboembolic events (atrial fibrillation, previous thromboembolism, LV dysfunction, hypercoagulable conditions) or an older generation mechanical AVR (i.e., ball in-Cage) or any mechanical MVR should have a INR therapeutic range of 2.5 to 3.5 (target INR of 3).Cathie GH, et al. Chest 2012, 141:7S-47SNishimura RA, et al. [facility] 2017, 70: 252-289 Performed By: #### 3 4528-0 ####[facility] LABORATORYCLIA [id number] [place] [address] [place] PT Coag (PPP) [Time] 14.0 s High 9.7-13.0 [facility] Comment on above: Order Comment: Mady rivera Type: BLOOD SPECIMENOrdering Facility: [facility] Address: [address] [place] [address] Performed By: #### 3 4528-0 ####[facility]ORATORYCLIA [id number] [place] [address] [place] Phosphate SerPl-mCncon 06-18 Phosphate [Mass/Vol] 1.3 mg/dL Low 2.7-4.8 [facility] Comment on above: Order Comment: Mady rivera Type: BLOOD SPECIMENOrdering Facility: [facility] Address: [address] [place] [address] Performed By: #### 2 4323-8, 2777-1 ####[facility]ATORYCLIA [id number] [place] [address] [place] THERAPY NTon 06-18-2024 THERAPY NT Normal [facility] CASE MANAGEMon 06-17-2024 CASE MANAGEM Normal [facility] CASE MANAGEM Normal [facility] CBC panel Auto (Bld)on 06-17 Erythrocyte distribution width (RBC) [Ratio] 17.7 % High 11.5-15.0 [facility] Comment on above: Order Comment: Mady rivera Type: BLOOD SPECIMENOrdering Facility: [facility] Address: [address] [place] [address] Performed By: #### 5 8410-2 ####[facility]ATORYCLIA [id number] [address] Hematocrit (Bld) [Volume fraction] 39.1 % Normal 36.0-46.0 [facility] Comment on above: Order Comment: Speci men Type: BLOOD SPECIMENOrdering Facility: [facility] Address: [address] [place] [address] Performed By: #### 5 8410-2 ####[facility]ATORYCLIA [id number] [address] OF [facility] Hemoglobin (Bld) [Mass/Vol] 13.1 g/dL Normal 11.5-15.5 [facility] Comment on above: Order Comment: Speci men Type: BLOOD SPECIMENOrdering Facility: [facility] Address: [address] [place] [address] Performed By: #### 5 8410-2 ####[facility]ATORYCLIA [id number] [address] OF [facility] MCH (RBC) [Entitic mass] 31.3 pg Normal 26.0-34.0 [facility] Comment on above: Order Comment: Speci men Type: BLOOD SPECIMENOrdering Facility: [facility] Address: [address] [place] [address] Performed By: #### 5 8410-2 ####[facility]ATORYCLIA [id number] [address] [place] MCHC (RBC) [Mass/Vol] 33.5 g/dL Normal 30.5-36.0 [facility] Comment on above: Order Comment: Speci men Type: BLOOD SPECIMENOrdering Facility: [facility] Address: [address] [place] [address] Performed By: #### 5 8410-2 ####[facility]ATORYCLIA [id number] [address] OF [place] MCV (RBC) [Entitic vol] 93.5 fL Normal 80.0-100.0 [facility] Comment on above: Order Comment: Speci men Type: BLOOD SPECIMENOrdering Facility: [facility] Address: [address] [place] [address] Performed By: #### 5 8410-2 ####[facility]ATORYCLIA [id number] [address] Nucleated RBC (Bld) [#/Vol] 0.06 10*3/uL High <0.01 [facility] Comment on above: Order Comment: Speci men Type: BLOOD SPECIMENOrdering Facility: [facility] Address: [address] [place] [address] Performed By: #### 5 8410-2 ####[facility]ATORYCLIA [id number] [address] OF [place] Platelet mean volume (Bld) [Entitic vol] 12.0 fL Normal 9.0-12.7 [facility] Comment on above: Order Comment: Speci men Type: BLOOD SPECIMENOrdering Facility: [facility] Address: [address] [place] [address] Performed By: #### 5 8410-2 ####[facility]ATORYCLIA [id number] [address] Platelets (Bld) [#/Vol] 49 10*3/uL Low 150-400 [facility] Comment on above: Order Comment: Speci men Type: BLOOD SPECIMENOrdering Facility: [facility] Address: [address] [place] [address] Result Comment: No c lot detected. Performed By: #### 5 8410-2 ####[facility]ATORYCLIA [id number] [address] RBC (Bld) [#/Vol] 4.18 10*6/uL Normal 3.90-5.20 [facility] Comment on above: Order Comment: Speci men Type: BLOOD SPECIMENOrdering Facility: [facility] Address: [address] [place] [address] Performed By: #### 5 8410-2 ####[facility]ORATORYCLIA [id number] [place], [place] [id number] [place] [address] [place] [facility] WBC (Bld) [#/Vol] 9.48 10*3/uL Normal 3.70-11.00 [facility] Comment on above: Order Comment: Speci men Type: BLOOD SPECIMENOrdering Facility: [facility] Address: [address] [place] [address] Performed By: #### 5 8410-2 ####[facility]ORATORYCLIA [id number] [place] [id number] [facility] [place] CONSULT PROGon 06-17-2024 CONSULT PROG Normal [facility] Comprehensive metabolic 2000 panelon 06-17-2024 Albumin [Mass/Vol] 2.5 g/dL Low 3.9-4.9 [facility] Comment on above: Order Comment: Speci men Type: BLOOD SPECIMENOrdering Facility: [facility] Address: [address] [place] [address] Performed By: #### 3 016-3, DBIL, 4542-7, 2777-1, 14293-5 ####[facility]ATORYCLIA [id number] [address] STATES OF [facility] ALP [Catalytic activity/Vol] 234 U/L High 34-123 [facility] Comment on above: Order Comment: Speci men Type: BLOOD SPECIMENOrdering Facility: [facility] Address: [address] [place] [address] Performed By: #### 3 016-3, DBIL, 4542-7, 2777-1, 89375-9 ####[facility]ATORYCLIA [id number] [place] [id number] [place] ALT With P-5'-P [Catalytic activity/Vol] 18 U/L Normal 7-38 [facility] Comment on above: Order Comment: Speci men Type: BLOOD SPECIMENOrdering Facility: [facility] Address: [address] [place] [address] Performed By: #### 3 016-3, DBIL, 4542-7, 2777-1, ####[facility]ATORYCLIA [id number] [place] [address] [place] Anion gap [Moles/Vol] 16 mmol/L High 8-15 [facility] Comment on above: Order Comment: Speci men Type: BLOOD SPECIMENOrdering Facility: [facility] Address: [address] [place] [address] Performed By: #### 3 016-3, DBIL, 7, 2776-05, ####[facility]ATORYCLIA [id number] [place] [address] [place] AST With P-5'-P [Catalytic activity/Vol] 59 U/L High 13-35 [facility] Comment on above: Order Comment: Speci men Type: BLOOD SPECIMENOrdering Facility: [facility] Address: [address] [place] [address] Performed By: #### 3 016-3, DBIL, 7, 2776-05, ####[facility]ATORYCLIA [id number] [place] [address] [place] Bilirubin [Mass/Vol] 5.5 mg/dL High 0.2-1.3 [facility] Comment on above: Order Comment: Speci men Type: BLOOD SPECIMENOrdering Facility: [facility] Address: [address] [place] [address] Performed By: #### 3 016-3, DBIL, 7, 2776-05, ####[facility]ATORYCLIA [id number] [place] [address] [place] Calcium [Mass/Vol] 8.2 mg/dL Low 8.5-10.2 [facility] Comment on above: Order Comment: Speci men Type: BLOOD SPECIMENOrdering Facility: [facility] Address: [address] [place] [address] Performed By: #### 3 016-3, DBIL, 4541-7, 2776-05, ####[facility]ATORYCLIA [id number] [place] [id number] [place] Chloride [Moles/Vol] 96 mmol/L Low 98-107 [facility] Comment on above: Order Comment: Speci men Type: BLOOD SPECIMENOrdering Facility: [facility] Address: [address] [place] [address] Performed By: #### 3 016-3, DBIL, 4542-7, 2777-1, 05936-3 ####[facility]ATORYCLIA [id number] [place] [id number] [place] CO2 [Moles/Vol] 22 mmol/L Normal 22-30 [facility] Comment on above: Order Comment: Speci men Type: BLOOD SPECIMENOrdering Facility: [facility] Address: [address] [place] [address] Performed By: #### 3 016-3, DBIL, 4542-7, 2777-1, 03393-1 ####[facility] C[facility] SERVICESIA [id number] [address] [place] Creatinine [Mass/Vol] 1.07 mg/dL High 0.58-0.96 [facility] Comment on above: Order Comment: Speci men Type: BLOOD SPECIMENOrdering Facility: [facility] CLINIC Address: [address] [place] [address] Performed By: #### 3 016-3, DBIL, 4542-7, 2777-1, 71219-2 ####[facility] LABORATORYCLIA [id number] [place] [id number] [facility] Creatinine and Glomerular filtration rate.predicted panel (S/P/Bld) 58 mL/min/1.73m??? Low >=60 [facility] Comment on above: Order Comment: Speci men Type: BLOOD SPECIMENOrdering Facility: [facility] Address: [address] [place] [address] Result Comment: Lily mated Glomerular Filtration Rate (eGFR) is calculated using the 2020 CKD-EPI creatinine equation. This equation utilizes serum creatinine, sex, and age as parameters. The creatinine assay has traceable calibration to isotope dilution-mass spectrometry. Refer to KDIGO guidelines for clinical interpretation. In patients with unstable renal function, e.g. those with acute kidney injury, the eGFR may not accurately reflect actual GFR. Performed By: #### 3 016-3, DBIL, 4542-7, 2777-1, 01087-9 ####[facility] LABORATORYCLIA [id number] [place] [address] [place] Glucose [Mass/Vol] 145 mg/dL High 74-99 [facility] Comment on above: Order Comment: Mady rivera Type: BLOOD SPECIMENOrdering Facility: [facility] Address: [address] [place] [address] Result Comment: The [place] Diabetes Association (ADA) provides guidance for cutoff values for fasting glucose and random glucose. The ADA defines fasting as no caloric intake for at least 8 hours. Fasting plasma glucose results between 100 to 125 mg/dL indicate increased risk for diabetes (prediabetes).Fasting plasma glucose results greater than or equal to 126 mg/dL meet the criteria for diagnosis of diabetes. In the absence of unequivocal hyperglycemia, results should be confirmed by repeat testing. In a patient with classic symptoms of hyperglycemia or hyperglycemic crisis, random plasma glucose results greater than or equal to 200 mg/dL meet the criteria for diagnosis of diabetes.Reference: Standards of Medical Care in Diabetes 2016, [place] [employer]. Diabetes Care. 2016.39(Suppl 1). Performed By: #### 3 016-3, DBIL, 4542-7, 7-1, 34707-7 ####[facility] LABORATORYCLIA [id number] [place] [id number] [place] Potassium [Moles/Vol] 4.1 mmol/L Normal 3.7-5.1 [facility] Comment on above: Order Comment: Mady rivera Type: BLOOD SPECIMENOrdering Facility: [facility] Address: [address] [place] [address] Performed By: #### 3 016-3, DBIL, 4542-7, 2777-1, 04581-9 ####[facility] LABORATORYCLIA [id number] [place] [address] [place] Protein [Mass/Vol] 5.5 g/dL Low 6.3-8.0 [facility] Comment on above: Order Comment: Speci men Type: BLOOD SPECIMENOrdering Facility: [facility] Address: [address] [place] [address] Performed By: #### 3 016-3, DBIL, 4542-7, 2777-1, 02451-9 ####[facility] LABORATORYCLIA [id number] [place] [address] [place] Sodium [Moles/Vol] 134 mmol/L Low 136-144 [facility] Comment on above: Order Comment: Speci men Type: BLOOD SPECIMENOrdering Facility: [facility] Address: [address] [place] [address] Performed By: #### 3 016-3, DBIL, 4542-7, 7-1, 49104-4 ####[facility] LABORATORYCLIA [id number] [address] [place] Urea nitrogen [Mass/Vol] 28 mg/dL High 7-21 [facility] Comment on above: Order Comment: Speci men Type: BLOOD SPECIMENOrdering Facility: [facility] Address: [address] [place] [address] Performed By: #### 3 016-3, DBIL, 4542-7, 2777-1, 41648-6 ####[facility] LABORATORYCLIA [id number] [address] [place] DIRECT BILIRUBIN BLOODon Bilirubin.conjugated [Mass/Vol] 4.4 mg/dL High <0.3 [facility] Comment on above: Order Comment: Speci men Type: BLOOD SPECIMENOrdering Facility: [facility] Address: [address] [place] [address] Performed By: #### 3 016-3, DBIL, 4542-7, 2777-1, 92216-9 ####[facility] LABORATORYCLIA [id number] [place] [address] [place] Haptoglob SerPl-mCncon 06-17 Haptoglobin [Mass/Vol] 61 mg/dL Normal 31-238 [facility] Comment on above: Order Comment: Mady rivera Type: BLOOD SPECIMENOrdering Facility: [facility] Address: [address] [place] [address] Performed By: #### 3 016-3, DBIL, 4542-7, 2777-1, 65201-2 ####[facility]ATORYCLIA [id number] [address] OF [facility] PT panel Coag (PPP)on 2024 INR Coag (PPP) [Relative time] 1.3 {INR} Normal 0.9-1.3 [facility] Comment on above: Order Comment: Mady rivera Type: BLOOD SPECIMENOrdering Facility: [facility] Address: [address] [place] [address] Result Comment: Chelsea min K Antagonist (VKA) Therapeutic Range: INR 2 to 3 (Target INR of 2.5)Note: For patients treated with VKA drugs, such as warfarin, the [place] [employer] 2012 Guideline recommends a therapeutic INR range of 2 to 3 (target INR of 2.5). This recommendation includes high-risk patients with antiphospholipid syndrome with previous arterial or venous thromboembolism, current-generation mechanical or bioprosthetic aortic heart valve replacement.Note: Patients with mechanical aortic valve replacement and additional risk factors for thromboembolic events (atrial fibrillation, previous thromboembolism, LV dysfunction, hypercoagulable conditions) or an older generation mechanical AVR (i.e., ball in-Cage) or any mechanical MVR should have a INR therapeutic range of 2.5 to 3.5 (target INR of 3).Cathie MCPHERSON, et al. Chest 2012, 141:7S-47SHector RA, et al. [facility] 2017, 70: 252-289 Performed By: #### 3 4528-0 ####[facility]ORATORYCLIA [id number] [address] [place] PT Coag (PPP) [Time] 14.4 s High 9.7-13.0 [facility] Comment on above: Order Comment: Mady rivera Type: BLOOD SPECIMENOrdering Facility: [facility] Address: [address] [place] [address] Performed By: #### 3 4528-0 ####[facility] LABORATORYCLIA [id number] [address] OF [facility] Phosphate SerPl-mCncon 06-17 Phosphate [Mass/Vol] 2.6 mg/dL Low 2.7-4.8 [facility] Comment on above: Order Comment: Speci men Type: BLOOD SPECIMENOrdering Facility: [facility] Address: [address] [place] [address] Performed By: #### 3 016-3, DBIL, 4542-7, 2777-1, 30769-1 ####[facility]ATORYCLIA [id number] [address] [place] TSH SerPl-aCncon 06-17-2024 TSH Qn 1.290 m[IU]/L Normal 0.270-4.200 [facility] Comment on above: Order Comment: Speci men Type: BLOOD SPECIMENOrdering Facility: [facility] Address: [address] [place] [address] Performed By: #### 3 016-3, DBIL, 4542-7, 2777-1, 30124-0 ####[facility] [id number] [address] [place] XR ABDOMEN 1V SUPINEon 06-17 XR ABDOMEN 1V SUPINE Normal [facility] AFP SerPl-mCncon 06-16-2024 AFP [Mass/Vol] 3.88 ng/mL Normal <9.00 [facility] Comment on above: Order Comment: Speci men Type: BLOOD SPECIMENOrdering Facility: [facility] Address: [address] [place] [address] Result Comment: The Alpha-Fetoprotein test was performed using the [employer] DxI immunoenzymatic assay. Results obtained with different assay methods or kits cannot be used interchangeably. Performed By: #### 1 834-1 ####[facility] LABCLIA [id number] [place] [address] [place] Bacteria Spec Resp Culton Bacteria identified Respiratory culture Nom (Unsp spec) CULTURE, RESPIRATORY: Rare Normal respiratory lynn present GRAM STAIN: No organisms seen Moderate Polymorphonuclear leukocytes Normal [facility] Comment on above: Performed By: #### 3 2355-0 ####[facility]ORATORYCLIA [id number] [address] [place] CASE MGT INIT ASSESon 2024 CASE MGT INIT ASSES Normal [facility] CBC panel Auto (Bld)on 06-16 Erythrocyte distribution width (RBC) [Ratio] 17.2 % High 11.5-15.0 [facility] Comment on above: Order Comment: Speci men Type: BLOOD SPECIMENOrdering Facility: [facility] Address: [address] [place] [address] Performed By: #### 5 8410-2 ####[facility]ORATORYCLIA [id number] [address] Hematocrit (Bld) [Volume fraction] 33.9 % Low 36.0-46.0 [facility] Comment on above: Order Comment: Speci men Type: BLOOD SPECIMENOrdering Facility: [facility] Address: [address] [place] [address] Performed By: #### 5 8410-2 ####[facility]ORATORYCLIA [id number] [address] [place] Hemoglobin (Bld) [Mass/Vol] 11.7 g/dL Normal 11.5-15.5 [facility] Comment on above: Order Comment: Speci men Type: BLOOD SPECIMENOrdering Facility: [facility] Address: [address] [place] [address] Performed By: #### 5 8410-2 ####[facility]ORATORYCLIA [id number] [address] [place] MCH (RBC) [Entitic mass] 31.1 pg Normal 26.0-34.0 [facility] Comment on above: Order Comment: Speci men Type: BLOOD SPECIMENOrdering Facility: [facility] Address: [address] [place] [address] Performed By: #### 5 8410-2 ####[facility]ATORYCLIA [id number] [address] MCHC (RBC) [Mass/Vol] 34.5 g/dL Normal 30.5-36.0 [facility] Comment on above: Order Comment: Speci men Type: BLOOD SPECIMENOrdering Facility: [facility] Address: [address] [place] [address] Performed By: #### 5 8410-2 ####[facility]ATORYCLIA [id number] [address] MCV (RBC) [Entitic vol] 90.2 fL Normal 80.0-100.0 [facility] Comment on above: Order Comment: Speci men Type: BLOOD SPECIMENOrdering Facility: [facility] Address: [address] [place] [address] Performed By: #### 5 8410-2 ####[facility]ATORYCLIA [id number] [address] Nucleated RBC (Bld) [#/Vol] 0.04 10*3/uL High <0.01 [facility] Comment on above: Order Comment: Speci men Type: BLOOD SPECIMENOrdering Facility: [facility] Address: [address] [place] [address] Performed By: #### 5 8410-2 ####[facility]ATORYCLIA [id number] [address] Platelet mean volume (Bld) [Entitic vol] 10.6 fL Normal 9.0-12.7 [facility] Comment on above: Order Comment: Speci men Type: BLOOD SPECIMENOrdering Facility: [facility] Address: [address] [place] [address] Performed By: #### 5 8410-2 ####[facility]ATORYCLIA [id number] [address] Platelets (Bld) [#/Vol] 55 10*3/uL Low 150-400 A [facility] Comment on above: Order Comment: Speci men Type: BLOOD SPECIMENOrdering Facility: [facility] Address: [address] [place] [address] Result Comment: No c lot detected. Performed By: #### 5 8410-2 ####[facility]ATORYCLIA [id number] [place] [address] [place] RBC (Bld) [#/Vol] 3.76 10*6/uL Low 3.90-5.20 [facility] Comment on above: Order Comment: Speci men Type: BLOOD SPECIMENOrdering Facility: [facility] Address: [address] [place] [address] Performed By: #### 5 8410-2 ####[facility]ATORYCLIA [id number] [address] WBC (Bld) [#/Vol] 9.34 10*3/uL Normal 3.70-11.00 [facility] Comment on above: Order Comment: Speci men Type: BLOOD SPECIMENOrdering Facility: [facility] Address: [address] [place] [address] Performed By: #### 5 8410-2 ####[facility]ORATORYCLIA [id number] [address] OF [facility] CONSULT PROGon 06-16-2024 CONSULT PROG Normal [facility] CONSULT PROG Normal [facility] Comprehensive metabolic 2000 panelon 06-16-2024 Albumin [Mass/Vol] 2.4 g/dL Low 3.9-4.9 [facility] Comment on above: Order Comment: Speci men Type: BLOOD SPECIMENOrdering Facility: [facility] Address: [address] [place] [address] Performed By: #### 2 4323-8 ####[facility]ORATORYCLIA [id number] [address] [place] ALP [Catalytic activity/Vol] 200 U/L High 34-123 [facility] Comment on above: Order Comment: Speci men Type: BLOOD SPECIMENOrdering Facility: [facility] Address: [address] [place] [address] Performed By: #### 2 4323-8 ####[facility]ATORYCLIA [id number] [address] [place] ALT With P-5'-P [Catalytic activity/Vol] 15 U/L Normal 7-38 [facility] Comment on above: Order Comment: Speci men Type: BLOOD SPECIMENOrdering Facility: [facility] Address: [address] [place] [address] Performed By: #### 2 4323-8 ####[facility]ORATORYCLIA [id number] [address] Anion gap [Moles/Vol] 11 mmol/L Normal 8-15 [facility] Comment on above: Order Comment: Speci men Type: BLOOD SPECIMENOrdering Facility: [facility] Address: [address] [place] [address] Performed By: #### 2 4323-8 ####[facility]ATORYCLIA [id number] [address] AST With P-5'-P [Catalytic activity/Vol] 48 U/L High 13-35 [facility] Comment on above: Order Comment: Speci men Type: BLOOD SPECIMENOrdering Facility: [facility] Address: [address] [place] [address] Performed By: #### 2 4323-8 ####[facility]ATORYCLIA [id number] [address] [place] Bilirubin [Mass/Vol] 5.6 mg/dL High 0.2-1.3 [facility] Comment on above: Order Comment: Speci men Type: BLOOD SPECIMENOrdering Facility: [facility] Address: [address] [place] [address] Performed By: #### 2 4323-8 ####[facility] LABORATORYCLIA [id number] [place] [address] [place] Calcium [Mass/Vol] 8.3 mg/dL Low 8.5-10.2 [facility] Comment on above: Order Comment: Speci men Type: BLOOD SPECIMENOrdering Facility: [facility] Address: [address] [place] [address] Performed By: #### 2 4323-8 ####[facility]ORATORYCLIA [id number] [place] [address] [place] Chloride [Moles/Vol] 99 mmol/L Normal 98-107 [facility] Comment on above: Order Comment: Speci men Type: BLOOD SPECIMENOrdering Facility: [facility] Address: [address] [place] [address] Performed By: #### 2 4323-8 ####[facility]ATORYCLIA [id number] [address] [place] CO2 [Moles/Vol] 28 mmol/L Normal 22-30 [facility] Comment on above: Order Comment: Speci men Type: BLOOD SPECIMENOrdering Facility: [facility] Address: [address] [place] [address] Performed By: #### 2 4323-8 ####[facility]ATORYCLIA [id number] [address] [place] Creatinine [Mass/Vol] 1.27 mg/dL High 0.58-0.96 [facility] Comment on above: Order Comment: Speci men Type: BLOOD SPECIMENOrdering Facility: [facility] Address: [address] [place] [address] Performed By: #### 2 4323-8 ####[facility]ORATORYCLIA [id number] [address] Creatinine and Glomerular filtration rate.predicted panel (S/P/Bld) 47 mL/min/1.73m??? Low >=60 [facility] Comment on above: Order Comment: Speci men Type: BLOOD SPECIMENOrdering Facility: [facility] Address: [address] [place] [address] Result Comment: Lily mated Glomerular Filtration Rate (eGFR) is calculated using the 2020 CKD-EPI creatinine equation. This equation utilizes serum creatinine, sex, and age as parameters. The creatinine assay has traceable calibration to isotope dilution-mass spectrometry. Refer to KDIGO guidelines for clinical interpretation. In patients with unstable renal function, e.g. those with acute kidney injury, the eGFR may not accurately reflect actual GFR. Performed By: #### 2 4323-8 ####[facility] LABORATORYCLIA [id number] [place] [address] [place] Glucose [Mass/Vol] 122 mg/dL High 74-99 [facility] Comment on above: Order Comment: Mady rivera Type: BLOOD SPECIMENOrdering Facility: [facility] Address: [address] [place], [place] [address] Result Comment: The [place] Diabetes Association (ADA) provides guidance for cutoff values for fasting glucose and random glucose. The ADA defines fasting as no caloric intake for at least 8 hours. Fasting plasma glucose results between 100 to 125 mg/dL indicate increased risk for diabetes (prediabetes).Fasting plasma glucose results greater than or equal to 126 mg/dL meet the criteria for diagnosis of diabetes. In the absence of unequivocal hyperglycemia, results should be confirmed by repeat testing. In a patient with classic symptoms of hyperglycemia or hyperglycemic crisis, random plasma glucose results greater than or equal to 200 mg/dL meet the criteria for diagnosis of diabetes.Reference: Standards of Medical Care in Diabetes 2016, [place] [employer]. Diabetes Care. 2016.39(Suppl 1). Performed By: #### 2 4323-8 ####[facility]ATORYCLIA [id number] [place] [address] [place] Protein [Mass/Vol] 4.9 g/dL Low 6.3-8.0 [facility] Comment on above: Order Comment: Mady rivera Type: BLOOD SPECIMENOrdering Facility: [facility] Address: [address] [place] [address] Performed By: #### 2 4323-8 ####[facility]ORATORYCLIA [id number] [place] [address] [place] Sodium [Moles/Vol] 138 mmol/L Normal 136-144 [facility] Comment on above: Order Comment: Speci men Type: BLOOD SPECIMENOrdering Facility: [facility] Address: [address] [place] [address] Performed By: #### 2 4323-8 ####[facility]ORATORYCLIA [id number] [address] STATES [facility] Urea nitrogen [Mass/Vol] 32 mg/dL High 7-21 [facility] Comment on above: Order Comment: Speci men Type: BLOOD SPECIMENOrdering Facility: [facility] Address: [address] [place] [address] Performed By: #### 2 4323-8 ####[facility]ORATORYCLIA [id number] [address] OF [facility] Gas + CO Pnl BldVon 06-16-19 25 Potassium [Moles/Vol] 3.6 mmol/L Low 3.7-5.1 [facility] Comment on above: Order Comment: Speci men Type: VENOUS BLOOD SPECIMENOrdering Facility: [facility] Address: [address] [place] [address] Performed By: #### 2 4344-4 ####[facility]ORATORYCLIA [id number] [address] Order Comment: Speci men Type: BLOOD SPECIMENOrdering Facility: [facility] Address: [address] [place] [address] Performed By: #### 2 4323-8 ####[facility]ATORYCLIA [id number] [address] Gas and Carbon monoxide pane l (BldV)on 06-16-2024 Base excess Calc (BldV) [Moles/Vol] 7 mmol/L High 0-2 [facility] Comment on above: Order Comment: Speci men Type: VENOUS BLOOD SPECIMENOrdering Facility: [facility] Address: [address] [place] [address] Performed By: #### 2 4344-4 ####[facility]ATORYCLIA [id number] [address] Body temperature 98.24 [degF] Normal [facility] Comment on above: Order Comment: Speci men Type: VENOUS BLOOD SPECIMENOrdering Facility: [facility] Address: [address] [place] [address] Performed By: #### 2 4344-4 ####[facility] LABORATORYCLIA [id number] [address] [place] Calcium.ionized (BldV) [Mass/Vol] 1.09 mmol/L Normal 1.08-1.30 [facility] Comment on above: Order Comment: Speci men Type: VENOUS BLOOD SPECIMENOrdering Facility: [facility] Address: [address] [place] [address] Performed By: #### 2 4344-4 ####[facility]ATORYCLIA [id number] [address] STATES OF [facility] Calcium.ionized adjusted to pH 7.4 (BldA) [Moles/Vol] 1.13 mmol/L Normal 1.08-1.30 [facility] Comment on above: Order Comment: Speci men Type: VENOUS BLOOD SPECIMENOrdering Facility: [facility] Address: [address] [place] [address] Performed By: #### 2 4344-4 ####[facility]ATORYCLIA [id number] [address] [place] Carboxyhemoglobin (BldV) [Mass fraction] 1.8 % Normal 0.0-2.0 [facility] Comment on above: Order Comment: Speci men Type: VENOUS BLOOD SPECIMENOrdering Facility: [facility] Address: [address] [place] [address] Result Comment: Carb oxyhemoglobin Reference Range for Smokers: 2.0-8.0% Performed By: #### 2 4344-4 ####[facility]ATORYCLIA [id number] [address] [place] Chloride [Moles/Vol] 106 mmol/L High 97-105 [facility] Comment on above: Order Comment: Speci men Type: VENOUS BLOOD SPECIMENOrdering Facility: [facility] Address: [address] [place] [address] Performed By: #### 2 4344-4 ####[facility]ATORYCLIA [id number] [address] [place] CO2 (BldV) [Partial pressure] 42 mm[Hg] Normal 42-55 [facility] Comment on above: Order Comment: Speci men Type: VENOUS BLOOD SPECIMENOrdering Facility: [facility] Address: [address] [place] [address] Performed By: #### 2 4344-4 ####[facility] [facility]ATORYCLIA [id number] [address] [place] CO2 adjusted to patient's actual temperature (BldV) [Partial pressure] 42 mmHg Normal 42-55 [facility] Comment on above: Order Comment: Speci men Type: VENOUS BLOOD SPECIMENOrdering Facility: [facility] Address: [address] [place] [address] Performed By: #### 2 4344-4 ####[facility]ATORYCLIA [id number] [address] [place] FIO2 30 % Normal [facility] Comment on above: Order Comment: Speci men Type: VENOUS BLOOD SPECIMENOrdering Facility: [facility] Address: [address] [place] [address] Performed By: #### 2 4344-4 ####[facility]ORATORYCLIA [id number] [place] [address] [place] Glucose [Mass/Vol] 119 mg/dL High 60-105 [facility] Comment on above: Order Comment: Speci men Type: VENOUS BLOOD SPECIMENOrdering Facility: [facility] Address: [address] [place] [address] Performed By: #### 2 4344-4 ####[facility] [facility]ORATORYCLIA [id number] [place] [address] [place] HCO3 (Bld) [Moles/Vol] 31 mmol/L High 24-28 [facility] Comment on above: Order Comment: Speci men Type: VENOUS BLOOD SPECIMENOrdering Facility: [facility] Address: [address] [place] [address] Performed By: #### 2 4344-4 ####[facility]ORATORYCLIA [id number] [address] Hematocrit (Bld) [Volume fraction] 37.3 % Normal 36.0-46.0 [facility] Comment on above: Order Comment: Speci men Type: VENOUS BLOOD SPECIMENOrdering Facility: [facility] Address: [address] [place] [address] Performed By: #### 2 4344-4 ####[facility] LABORATORYCLIA [id number] [address] [place] Hemoglobin (Bld) [Mass/Vol] 12.1 g/dL Normal 11.5-15.5 [facility] Comment on above: Order Comment: Speci men Type: VENOUS BLOOD SPECIMENOrdering Facility: [facility] Address: [address] [place] [address] Performed By: #### 2 4344-4 ####[facility]ORATORYCLIA [id number] [address] [place] INHALED TIDAL VOLUME (ML) 420 Normal [facility] Comment on above: Order Comment: Speci men Type: VENOUS BLOOD SPECIMENOrdering Facility: [facility] Address: [address] [place] [address] Performed By: #### 2 4344-4 ####[facility]ORATORYCLIA [id number] [address] [place] Lactate [Moles/Vol] 1.1 mmol/L Normal 0.5-2.2 [facility] Comment on above: Order Comment: Speci men Type: VENOUS BLOOD SPECIMENOrdering Facility: [facility] Address: [address] [place] [address] Performed By: #### 2 4344-4 ####[facility]ATORYCLIA [id number] [address] [place] Methemoglobin (Bld) [Mass fraction] 0.8 % Normal 0.0-1.5 [facility] Comment on above: Order Comment: Speci men Type: VENOUS BLOOD SPECIMENOrdering Facility: [facility] Address: [address] [place] [address] Performed By: #### 2 4344-4 ####[facility]ATORYCLIA [id number] [address] O2 THERAPY VENT=Ventilator Normal [facility] Comment on above: Order Comment: Speci men Type: VENOUS BLOOD SPECIMENOrdering Facility: [facility] Address: [address] [place] [address] Performed By: #### 2 4344-4 ####[facility]ATORYCLIA [id number] [address] Oxygen (BldV) [Partial pressure] 68 mm[Hg] High 35-45 [facility] Comment on above: Order Comment: Speci men Type: VENOUS BLOOD SPECIMENOrdering Facility: [facility] Address: [address] [place] [address] Performed By: #### 2 4344-4 ####[facility] LABORATORYCLIA [id number] [address] Oxygen adjusted to patient's actual temperature (BldV) [Partial pressure] 67 mmHg High 35-45 [facility] Comment on above: Order Comment: Speci men Type: VENOUS BLOOD SPECIMENOrdering Facility: [facility] Address: [address] [place] [address] Performed By: #### 2 4344-4 ####[facility]ATORYCLIA [id number] [address] [place] Oxygen saturation in Venous blood 94 % High 60-85 [facility] Comment on above: Order Comment: Speci men Type: VENOUS BLOOD SPECIMENOrdering Facility: [facility] Address: [address] [place] [address] Performed By: #### 2 4344-4 ####[facility]ATORYCLIA [id number] [address] [place] Oxyhemoglobin (BldV) [Mass fraction] 91 % High 60-85 [facility] Comment on above: Order Comment: Speci men Type: VENOUS BLOOD SPECIMENOrdering Facility: [facility] Address: [address] [place] [address] Performed By: #### 2 4344-4 ####[facility]ATORYCLIA [id number] [address] [place] PEEP/CPAP 5 cmH2O Normal [facility] Comment on above: Order Comment: Speci men Type: VENOUS BLOOD SPECIMENOrdering Facility: [facility] Address: [address] [place] [address] Performed By: #### 2 4344-4 ####[facility]ORATORYCLIA [id number] [address] pH (BldV) 7.47 [pH] High 7.32-7.42 [facility] Comment on above: Order Comment: Speci men Type: VENOUS BLOOD SPECIMENOrdering Facility: [facility] Address: [address] [place] [address] Performed By: #### 2 4344-4 ####[facility]ORATORYCLIA [id number] [address] pH adjusted to patient's actual temperature (BldV) 7.48 High 7.32-7.42 [facility] Comment on above: Order Comment: Speci men Type: VENOUS BLOOD SPECIMENOrdering Facility: [facility] Address: [address] [place] [address] Performed By: #### 2 4344-4 ####[facility]ORATORYCLIA [id number] [address] SET VENTILATOR RESPIRATORY RATE (BPM) 12 BPM Normal [facility] Comment on above: Order Comment: Speci men Type: VENOUS BLOOD SPECIMENOrdering Facility: [facility] Address: [address] [place] [address] Performed By: #### 2 4344-4 ####[facility]ORATORYCLIA [id number] [place] [address] [place] Sodium [Moles/Vol] 136 mmol/L Normal 136-144 [facility] Comment on above: Order Comment: Speci men Type: VENOUS BLOOD SPECIMENOrdering Facility: [facility] Address: [address] [place] [address] Performed By: #### 2 4344-4 ####[facility] LABORATORYCLIA [id number] [place] [address] [place] LIVER FIBROSIS AND ACTIVITYo n 06-16-2024 Bmzkn-2-Yrajsvzyinnrw [Mass/Vol] 152 mg/dL Normal 110-270 [facility] Comment on above: Order Comment: Speci men Type: BLOOD SPECIMENOrdering Facility: [facility] Address: [address] [place] [address] Performed By: #### L IVFIB ####[facility] LABCLIA [id number] [place] [address] [place] ALT [Catalytic activity/Vol] 18 U/L Normal 10-35 [facility] Comment on above: Order Comment: Speci men Type: BLOOD SPECIMENOrdering Facility: [facility] Address: [address] [place] [address] Performed By: #### L IVFIB ####[facility] LABCLIA [id number] [place] [address] [place] Apolipoprotein A-I [Mass/Vol] 33 mg/dL Low >124 [facility] Comment on above: Order Comment: Speci men Type: BLOOD SPECIMENOrdering Facility: [facility] Address: [address] [place] [address] Performed By: #### L IVFIB ####[facility] LABCLIA [id number] [place] [address] [place] Bilirubin [Mass/Vol] 5.5 mg/dL High 0.2-1.3 [facility] Comment on above: Order Comment: Speci men Type: BLOOD SPECIMENOrdering Facility: [facility] Address: [address] [place] [address] Performed By: #### L IVFIB ####[facility] LABIA [id number] [address] [place] FIBROSIS INTERPRETATION Severe Fibrosis Normal [facility] Comment on above: Order Comment: Speci men Type: BLOOD SPECIMENOrdering Facility: [facility] Address: [address] [place] [address] Result Comment: Fibr osis Interpretation Table:FibroTest Score: >=0 and <=0.21 - Metavir Score: F0 No FibrosisFibroTest Score: >0.21 and <=0.27 - Metavir Score: F0-F1 No FibrosisFibroTest Score: >0.27 and <=0.31 - Metavir Score: F1 Minimal FibrosisFibroTest Score: >0.31 and <=0.48 - Metavir Score: F1-F2 Minimal FibrosisFibroTest Score: >0.48 and <=0.58- Metavir Score: F2 Moderate FibrosisFibroTest Score: >0.58 and <=0.72 - Metavir Score: F3 Advanced FibrosisFibroTest Score: >0.72 and <=0.74 - Metavir Score: F3-F4 Advanced FibrosisFibroTest Score: >0.74 and <=1.00- Metavir Score: F4 Severe Fibrosis Performed By: #### L IVFIB ####[facility] LABIA [id number] [address] [place] Fibrosis stage Ql F4 Normal [facility] Comment on above: Order Comment: Speci men Type: BLOOD SPECIMENOrdering Facility: [facility] Address: [address] [place] [address] Performed By: #### L IVFIB ####[facility] LABIA [id number] [place] [address] [place] Gamma glutamyl transferase [Catalytic activity/Vol] 225 U/L High 6-42 [facility] Comment on above: Order Comment: Speci men Type: BLOOD SPECIMENOrdering Facility: [facility] Address: [address] [place] [address] Performed By: #### L IVFIB ####[facility] LABCLIA [id number] [place] [address] [place] Haptoglobin [Mass/Vol] 56 mg/dL Normal 31-238 [facility] Comment on above: Order Comment: Speci men Type: BLOOD SPECIMENOrdering Facility: [facility] Address: [address] [place] [address] Performed By: #### L IVFIB ####[facility] LABCLIA [id number] [place] [address] [place] NECROINFLAM ACTIVITY INTERP No Activity Normal [facility] Comment on above: Order Comment: Speci men Type: BLOOD SPECIMENOrdering Facility: [facility] Address: [address] [place] [address] Result Comment: Necr oinflammatory Activity Interpretation Table:ActiTest Score: >=0 and <=0.17 - Metavir Score: A0 No activityActiTest Score: >0.17 and <=0.29 - Metavir Score: A0-A1 No activityActiTest Score: >0.29 and <=0.36 - Metavir Score: A1 Minimal activityActiTest Score: >0.36 and <=0.52 - Metavir Score: A1-A2 Minimal activityActiTest Score: >0.52 and <=0.60 - Metavir Score: A2 Significant activityActiTest Score: >0.60 and <=0.62 - Metavir Score: A2-A3 Significant activityActiTest Score: >0.62 and <=1.00 - Metavir Score: A3 Severe activity Performed By: #### L IVFIB ####[facility] LABCLIA [id number] [place] [address] [place] Necroinflammatory activity grade Ql A0 Normal [facility] Comment on above: Order Comment: Speci men Type: BLOOD SPECIMENOrdering Facility: [facility] Address: [address] [place] [address] Performed By: #### L IVFIB ####[facility] LABCLIA [id number] [facility] [place] [address] [place] NUTRITIONon 06-16-2024 NUTRITION Normal [facility] PHOSPHATIDYLETHANOL (PETH)on 06-16-2024 EER PETH See Note Normal [facility] Comment on above: Order Comment: Speci men Type: BLOOD SPECIMENOrdering Facility: [facility] Address: [address] [place] [address] Result Comment: Auth orized individuals can access the [employer] Enhanced Reportwith an [employer] Connect account using the following link.Your local lab can assist you in obtaining the patientreport if you don't have a Connect account.[email or web address] Performed By: #### P ETH ####[facility]IESCLIA [id number] [place] [address] PETH 16:0/18.2 (PLPETH) 27 ng/mL Normal [facility] Comment on above: Order Comment: Speci men Type: BLOOD SPECIMENOrdering Facility: [facility] Address: [address] [place] [address] Result Comment: Refe rence ranges are not well established. Performed By: #### P ETH ####[facility]ORATORIESCLIA [id number] [place] [address] PETH 16:0/18:1 (POPETH) 63 ng/mL Normal [facility] Comment on above: Order Comment: Speci men Type: BLOOD SPECIMENOrdering Facility: [facility] Address: [address] [place] [address] Result Comment: PEth 16:0/18:1 (POPEth)Less than 10 ng/mL............Not detectedLess than 20 ng/mL............Abstinence or light wzsshyagncebyqehmh59 - 200 ng/mL................Moderate alcohol consumptionGreater than 200 ng/mL........Heavy alcohol consumption or chronicalcohol use(Reference: Faye Benjamin 2018 J. Forensic Sci) Performed By: #### P ETH ####[facility] LABORATORIESIA [id number] [place] [address] PETH INTERPRETATION See Comment Normal [facility] Comment on above: Order Comment: Speci men Type: BLOOD SPECIMENOrdering Facility: [facility] Address: [facility] [place] [address] Result Comment: Phos phatidylethanol (PEth) is a group of phospholipids formed inthe presence of ethanol, phospholipase D and phosphatidylcholine.PEth is known to be a direct alcohol biomarker. The predominantPEth homologues are PEth 16:0/18:1 (POPEth) and PEth 16:0/18:2(PLPEth), which account for 37-46% and 26-28% of the total PEthhomologues, respectively. PEth is incorporated into thephospholipid membrane of red blood cells and has a generalhalf-life of 4-10 days and a window of detection of 2-4 weeks.However, the window of detection is longer in individuals whochronically or excessively consume alcohol. The limit ofquantification is 10 ng/mL. Serial monitoring of PEth may behelpful in monitoring alcohol abstinence over time. PEth resultsshould be interpreted in the context of the patient's clinical andbehavioral history.Patients with advanced liver disease may have falsely elevatedPEth concentrations (Chrissy HUERTA et al 2018, Alcoholism Clinical &Experimental Research).This test was developed and its performance characteristicsdetermined by [facility]. It has not been cleared orapproved by the U.S. Food and Drug Administration. This test wasperformed in a CLIA-certified laboratory and is intended forclinical purposes.Performed By: [facility] [place], [place] [address]Uulkc[facility]ofw Director: Bao Carlisle MD, PhDCLIA Number: [id number] Performed By: #### P ETH ####[facility] LABORATORIESIA [id number] [place] [address] Urine Cultureon 06-16-2024 URC Escherichia coli [place] Count 1000-10,000 Proteus mirabilis Proteus mirabilis Escherichia coli: REACTION Ampicillin Islt NOAH 8 S Ampicillin+Sulbac Islt NOAH 4 Cefepime Islt NOAH <=0.12 S cefTRIAXone Islt NOAH <=0.25 S Ciprofloxacin Islt NOAH <=0.06 S B-Lactamase Extended Susc Islt NEG Gentamicin Islt NOAH <=1 S levoFLOXacin Islt NOAH <=0.12 S Meropenem Islt NOAH <=0.25 S Nitrofurantoin Islt NOAH <=16 S Pip+Tazo Islt NOAH <=4 S TMP SMX Islt NOAH <=20 S Proteus mirabilis: REACTION Ampicillin Islt NOAH <=2 S Ampicillin+Sulbac Islt NOAH <=2 Cefepime Islt NOAH <=0.12 S cefTRIAXone Islt NOAH <=0.25 S Ciprofloxacin Islt NOAH <=0.06 S Gentamicin Islt NOAH <=1 S levoFLOXacin Islt NOAH <=0.12 S Meropenem Islt NOAH <=0.25 S Nitrofurantoin Islt NOAH 128 R Pip+Tazo Islt NOAH <=4 S TMP SMX Islt NOAH <=20 S Normal [facility] Comment on above: Performed By: #### L 300.4310, L501.4020, M200.1000, L100.0100, L500.4050, L503.6005, L300.3900, L501.3620 #### [facility] [address] [facility] [place], [place], [id number] Ammonia Plas-sCncon 06-15-19 25 Ammonia (P) [Moles/Vol] 22 umol/L Normal 11-51 [facility] Comment on above: Order Comment: Speci men Type: BLOOD SPECIMENOrdering Facility: [facility] Address: [address] [place] [address] Performed By: #### 1 6362-6 ####[facility] LABORATORYCLIA [id number] [place] [address] [place] CBC panel Auto (Bld)on 06-15 Erythrocyte distribution width (RBC) [Ratio] 18.0 % High 11.5-15.0 [facility] Comment on above: Order Comment: Speci men Type: BLOOD SPECIMENOrdering Facility: [facility] Address: [address] [place] [address] Performed By: #### 5 8410-2 ####[facility] LABORATORYCLIA [id number] [address] Hematocrit (Bld) [Volume fraction] 35.9 % Low 36.0-46.0 [facility] Comment on above: Order Comment: Speci men Type: BLOOD SPECIMENOrdering Facility: [facility] Address: [address] [place] [address] Performed By: #### 5 8410-2 ####[facility]ORATORYCLIA [id number] [address] Hemoglobin (Bld) [Mass/Vol] 12.9 g/dL Normal 11.5-15.5 [facility] Comment on above: Order Comment: Speci men Type: BLOOD SPECIMENOrdering Facility: [facility] Address: [address] [place] [address] Performed By: #### 5 8410-2 ####[facility] LABORATORYCLIA [id number] [address] MCH (RBC) [Entitic mass] 31.5 pg Normal 26.0-34.0 [facility] Comment on above: Order Comment: Speci men Type: BLOOD SPECIMENOrdering Facility: [facility] Address: [address] [place] [address] Performed By: #### 5 8410-2 ####[facility]ORATORYCLIA [id number] [address] MCHC (RBC) [Mass/Vol] 35.9 g/dL Normal 30.5-36.0 [facility] Comment on above: Order Comment: Speci men Type: BLOOD SPECIMENOrdering Facility: [facility] Address: [address] [place] [address] Performed By: #### 5 8410-2 ####[facility]ORATORYCLIA [id number] [address] MCV (RBC) [Entitic vol] 87.8 fL Normal 80.0-100.0 [facility] Comment on above: Order Comment: Speci men Type: BLOOD SPECIMENOrdering Facility: [facility] Address: [address] [place] [address] Performed By: #### 5 8410-2 ####[facility]ORATORYCLIA [id number] [address] [place] Nucleated RBC (Bld) [#/Vol] 0.05 10*3/uL High <0.01 [facility] Comment on above: Order Comment: Speci men Type: BLOOD SPECIMENOrdering Facility: [facility] Address: [address] [place] [address] Performed By: #### 5 8410-2 ####[facility]ORATORYCLIA [id number] [address] [place] Platelet mean volume (Bld) [Entitic vol] 11.6 fL Normal 9.0-12.7 [facility] Comment on above: Order Comment: Speci men Type: BLOOD SPECIMENOrdering Facility: [facility] Address: [address] [place] [address] Performed By: #### 5 8410-2 ####[facility]ORATORYCLIA [id number] [address] Platelets (Bld) [#/Vol] 79 10*3/uL Low 150-400 [facility] Comment on above: Order Comment: Speci men Type: BLOOD SPECIMENOrdering Facility: [facility] Address: [address] [place] [address] Result Comment: No c lot detected. Performed By: #### 5 8410-2 ####[facility] LABORATORYCLIA [id number] [address] [place] RBC (Bld) [#/Vol] 4.09 10*6/uL Normal 3.90-5.20 [facility] Comment on above: Order Comment: Speci men Type: BLOOD SPECIMENOrdering Facility: [facility] Address: [address] [place] [address] Performed By: #### 5 8410-2 ####[facility]ORATORYCLIA [id number] [place] [address] [place] WBC (Bld) [#/Vol] 15.33 10*3/uL High 3.70-11.00 [facility] Comment on above: Order Comment: Speci men Type: BLOOD SPECIMENOrdering Facility: [facility] Address: [address] [place] [address] Performed By: #### 5 8410-2 ####[facility]ORATORYCLIA [id number] [address] [place] CONSULT PROGon 06-15-2024 CONSULT PROG Normal [facility] Comprehensive metabolic 2000 panelon 06-15-2024 Albumin [Mass/Vol] 2.3 g/dL Low 3.9-4.9 [facility] Comment on above: Order Comment: Speci men Type: BLOOD SPECIMENOrdering Facility: [facility] Address: [address] [place] [address] Performed By: #### 2 4323-8 ####[facility]ORATORYCLIA [id number] [address] [place] ALP [Catalytic activity/Vol] 209 U/L High 34-123 [facility] Comment on above: Order Comment: Speci men Type: BLOOD SPECIMENOrdering Facility: [facility] Address: [address] [place] [address] Performed By: #### 2 4323-8 ####[facility]ORATORYCLIA [id number] [address] [place] ALT With P-5'-P [Catalytic activity/Vol] 13 U/L Normal 7-38 [facility] Comment on above: Order Comment: Speci men Type: BLOOD SPECIMENOrdering Facility: [facility] Address: [address] [place] [address] Performed By: #### 2 4323-8 ####[facility]ORATORYCLIA [id number] [address] [place] Anion gap [Moles/Vol] 10 mmol/L Normal 8-15 [facility] Comment on above: Order Comment: Speci men Type: BLOOD SPECIMENOrdering Facility: [facility] Address: [facility] [place] [address] Performed By: #### 2 4323-8 ####[facility] LABORATORYCLIA [id number] [place] [address] [place] AST With P-5'-P [Catalytic activity/Vol] 40 U/L High 13-35 [facility] Comment on above: Order Comment: Speci men Type: BLOOD SPECIMENOrdering Facility: [facility] Address: [address] [place] [address] Performed By: #### 2 4323-8 ####[facility]ORATORYCLIA [id number] [place] [address] [place] Bilirubin [Mass/Vol] 5.8 mg/dL High 0.2-1.3 [facility] Comment on above: Order Comment: Speci men Type: BLOOD SPECIMENOrdering Facility: [facility] Address: [address] [place] [address] Performed By: #### 2 4323-8 ####[facility]ORATORYCLIA [id number] [place] [address] [place] Calcium [Mass/Vol] 8.7 mg/dL Normal 8.5-10.2 [facility] Comment on above: Order Comment: Speci men Type: BLOOD SPECIMENOrdering Facility: [facility] Address: [address] [place] [address] Performed By: #### 2 4323-8 ####[facility]ORATORYCLIA [id number] [place] [address] [place] Chloride [Moles/Vol] 100 mmol/L Normal 98-107 [facility] Comment on above: Order Comment: Speci men Type: BLOOD SPECIMENOrdering Facility: [facility] Address: [address] [place] [address] Performed By: #### 2 4323-8 ####[facility]ATORYCLIA [id number] [address] STATES OF [facility] CO2 [Moles/Vol] 28 mmol/L Normal 22-30 [facility] Comment on above: Order Comment: Speci men Type: BLOOD SPECIMENOrdering Facility: [facility] Address: [address] [place] [address] Performed By: #### 2 4323-8 ####[facility]ORATORYCLIA [id number] [address] [place] Creatinine [Mass/Vol] 1.43 mg/dL High 0.58-0.96 [facility] Comment on above: Order Comment: Speci men Type: BLOOD SPECIMENOrdering Facility: [facility] Address: [address] [place] [address] Performed By: #### 2 4323-8 ####[facility]ORATORYCLIA [id number] [address] Creatinine and Glomerular filtration rate.predicted panel (S/P/Bld) 41 mL/min/1.73m??? Low >=60 [facility] Comment on above: Order Comment: Speci men Type: BLOOD SPECIMENOrdering Facility: [facility] Address: [address] [place] [address] Result Comment: Lily mated Glomerular Filtration Rate (eGFR) is calculated using the 2020 CKD-EPI creatinine equation. This equation utilizes serum creatinine, sex, and age as parameters. The creatinine assay has traceable calibration to isotope dilution-mass spectrometry. Refer to KDIGO guidelines for clinical interpretation. In patients with unstable renal function, e.g. those with acute kidney injury, the eGFR may not accurately reflect actual GFR. Performed By: #### 2 4323-8 ####[facility] LABORATORYCLIA [id number] [address] [place] Glucose [Mass/Vol] 117 mg/dL High 74-99 [facility] Comment on above: Order Comment: Speci men Type: BLOOD SPECIMENOrdering Facility: [facility] Address: [address] [place] [address] Result Comment: The [place] Diabetes [employer] (ADA) provides guidance for cutoff values for fasting glucose and random glucose. The ADA defines fasting as no caloric intake for at least 8 hours. Fasting plasma glucose results between 100 to 125 mg/dL indicate increased risk for diabetes (prediabetes).Fasting plasma glucose results greater than or equal to 126 mg/dL meet the criteria for diagnosis of diabetes. In the absence of unequivocal hyperglycemia, results should be confirmed by repeat testing. In a patient with classic symptoms of hyperglycemia or hyperglycemic crisis, random plasma glucose results greater than or equal to 200 mg/dL meet the criteria for diagnosis of diabetes.Reference: Standards of Medical Care in Diabetes 2016, [place] [employer]. Diabetes Care. 2016.39(Suppl 1). Performed By: #### 2 4323-8 ####[facility] LABORATORYCLIA [id number] [place] [address] [place] Potassium [Moles/Vol] 3.8 mmol/L Normal 3.7-5.1 [facility] Comment on above: Order Comment: Speci men Type: BLOOD SPECIMENOrdering Facility: [facility] Address: [address] [place] [address] Performed By: #### 2 4323-8 ####[facility] LABORATORYCLIA [id number] [place] [address] [place] Protein [Mass/Vol] 4.8 g/dL Low 6.3-8.0 [facility] Comment on above: Order Comment: Mady rivera Type: BLOOD SPECIMENOrdering Facility: [facility] Address: [address] [place] [address] Performed By: #### 2 4323-8 ####[facility] LABORATORYCLIA [id number] [place] [address] [place] Sodium [Moles/Vol] 138 mmol/L Normal 136-144 [facility] Comment on above: Order Comment: Melissai men Type: BLOOD SPECIMENOrdering Facility: [facility] Address: [address] [place] [address] Performed By: #### 2 4323-8 ####[facility] LABORATORYCLIA [id number] [place] [address] [place] Urea nitrogen [Mass/Vol] 28 mg/dL High 7-21 [facility] Comment on above: Order Comment: Speci men Type: BLOOD SPECIMENOrdering Facility: [facility] Address: [address] [place] [address] Performed By: #### 2 4323-8 ####[facility] LABORATORYCLIA [id number] [address] [place] Gas and Carbon monoxide pane l (BldV)on 06-15-2024 Base excess Calc (BldV) [Moles/Vol] 8 mmol/L High 0-2 [facility] Comment on above: Order Comment: Speci men Type: VENOUS BLOOD SPECIMENOrdering Facility: [facility] Address: [address] [place] [address] Performed By: #### 2 4344-4 ####[facility] LABORATORYCLIA [id number] [address] [place] Body temperature 97.52 [degF] Normal [facility] Comment on above: Order Comment: Speci men Type: VENOUS BLOOD SPECIMENOrdering Facility: [facility] Address: [address] [place] [address] Performed By: #### 2 4344-4 ####[facility] LABORATORYCLIA [id number] [address] [place] Calcium.ionized (BldV) [Mass/Vol] 1.09 mmol/L Normal 1.08-1.30 [facility] Comment on above: Order Comment: Speci men Type: VENOUS BLOOD SPECIMENOrdering Facility: [facility] Address: [address] [place] [address] Performed By: #### 2 4344-4 ####[facility] LABORATORYCLIA [id number] [address] [place] Calcium.ionized adjusted to pH 7.4 (BldA) [Moles/Vol] 1.18 mmol/L Normal 1.08-1.30 [facility] Comment on above: Order Comment: Speci men Type: VENOUS BLOOD SPECIMENOrdering Facility: [facility] Address: [address] [place] [address] Performed By: #### 2 4344-4 ####[facility] LABORATORYCLIA [id number] [address] Carboxyhemoglobin (BldV) [Mass fraction] 2.0 % Normal 0.0-2.0 [facility] Comment on above: Order Comment: Speci men Type: VENOUS BLOOD SPECIMENOrdering Facility: [facility] Address: [address] [place] [address] Result Comment: Carb oxyhemoglobin Reference Range for Smokers: 2.0-8.0% Performed By: #### 2 4344-4 ####[facility] LABORATORYCLIA [id number] [address] Chloride [Moles/Vol] 107 mmol/L High 97-105 [facility] Comment on above: Order Comment: Speci men Type: VENOUS BLOOD SPECIMENOrdering Facility: [facility] Address: [address] [place] [address] Performed By: #### 2 4344-4 ####[facility] LABORATORYCLIA [id number] [address] [place] CO2 (BldV) [Partial pressure] 34 mm[Hg] Low 42-55 [facility] Comment on above: Order Comment: Speci men Type: VENOUS BLOOD SPECIMENOrdering Facility: [facility] Address: [address] [place] [address] Performed By: #### 2 4344-4 ####[facility] LABORATORYCLIA [id number] [address] CO2 adjusted to patient's actual temperature (BldV) [Partial pressure] 33 mmHg Low 42-55 [facility] Comment on above: Order Comment: Speci men Type: VENOUS BLOOD SPECIMENOrdering Facility: [facility] Address: [address] [place] [address] Performed By: #### 2 4344-4 ####[facility] LABORATORYCLIA [id number] [address] [place] FIO2 30 % Normal [facility] Comment on above: Order Comment: Speci men Type: VENOUS BLOOD SPECIMENOrdering Facility: [facility] Address: [address] [place] [address] Performed By: #### 2 4344-4 ####[facility] LABORATORYCLIA [id number] [address] [place] Glucose [Mass/Vol] 122 mg/dL High 60-105 [facility] Comment on above: Order Comment: Speci men Type: VENOUS BLOOD SPECIMENOrdering Facility: [facility] Address: [facility] [place] [address] Performed By: #### 2 4344-4 ####[facility] LABORATORYCLIA [id number] [place] [address] [place] HCO3 (Bld) [Moles/Vol] 31 mmol/L High 24-28 [facility] Comment on above: Order Comment: Speci men Type: VENOUS BLOOD SPECIMENOrdering Facility: [facility] Address: [address] [place] [address] Performed By: #### 2 4344-4 ####[facility] LABORATORYCLIA [id number] [address] [place] Hematocrit (Bld) [Volume fraction] 39.0 % Normal 36.0-46.0 [facility] Comment on above: Order Comment: Speci men Type: VENOUS BLOOD SPECIMENOrdering Facility: [facility] Address: [address] [place] [address] Performed By: #### 2 4344-4 ####[facility] LABORATORYCLIA [id number] [place] [address] [place] Hemoglobin (Bld) [Mass/Vol] 12.7 g/dL Normal 11.5-15.5 [facility] Comment on above: Order Comment: Speci men Type: VENOUS BLOOD SPECIMENOrdering Facility: [facility] Address: [facility] [place] [address] Performed By: #### 2 4344-4 ####[facility] LABORATORYCLIA [id number] [place] [address] [place] INHALED TIDAL VOLUME (ML) 420 Normal [facility] Comment on above: Order Comment: Speci men Type: VENOUS BLOOD SPECIMENOrdering Facility: [facility] Address: [address] [place] [address] Performed By: #### 2 4344-4 ####[facility] LABORATORYCLIA [id number] [place] [address] [place] Lactate [Moles/Vol] 1.7 mmol/L Normal 0.5-2.2 [facility] Comment on above: Order Comment: Speci men Type: VENOUS BLOOD SPECIMENOrdering Facility: [facility] Address: [address] [place] [address] Performed By: #### 2 4344-4 ####[facility] LABORATORYCLIA [id number] [address] [place] Methemoglobin (Bld) [Mass fraction] 0.5 % Normal 0.0-1.5 [facility] Comment on above: Order Comment: Speci men Type: VENOUS BLOOD SPECIMENOrdering Facility: [facility] Address: [address] [place] [address] Performed By: #### 2 4344-4 ####[facility] LABORATORYCLIA [id number] [address] O2 THERAPY VENT=Ventilator Normal [facility] Comment on above: Order Comment: Speci men Type: VENOUS BLOOD SPECIMENOrdering Facility: [facility] Address: [address] [place] [address] Performed By: #### 2 4344-4 ####[facility] LABORATORYCLIA [id number] [place] [id number] [facility] [place] Oxygen (BldV) [Partial pressure] 94 mm[Hg] High 35-45 [facility] Comment on above: Order Comment: Speci men Type: VENOUS BLOOD SPECIMENOrdering Facility: [facility] Address: [address] [place] [address] Performed By: #### 2 4344-4 ####[facility] LABORATORYCLIA [id number] [address] [place] Oxygen adjusted to patient's actual temperature (BldV) [Partial pressure] 91 mmHg High 35-45 [facility] Comment on above: Order Comment: Speci men Type: VENOUS BLOOD SPECIMENOrdering Facility: [facility] Address: [address] [place] [address] Performed By: #### 2 4344-4 ####[facility]ORATORYCLIA [id number] [address] [place] Oxygen saturation in Venous blood 98 % High 60-85 [facility] Comment on above: Order Comment: Speci men Type: VENOUS BLOOD SPECIMENOrdering Facility: [facility] Address: [address] [place] [address] Performed By: #### 2 4344-4 ####[facility] LABORATORYCLIA [id number] [address] [place] Oxyhemoglobin (BldV) [Mass fraction] 96 % High 60-85 [facility] Comment on above: Order Comment: Speci men Type: VENOUS BLOOD SPECIMENOrdering Facility: [facility] Address: [address] [place] [address] Performed By: #### 2 4344-4 ####[facility] LABORATORYCLIA [id number] [address] PEEP/CPAP 5 cmH2O Normal [facility] Comment on above: Order Comment: Speci men Type: VENOUS BLOOD SPECIMENOrdering Facility: [facility] Address: [address] [place] [address] Performed By: #### 2 4344-4 ####[facility] LABORATORYCLIA [id number] [address] [place] pH (BldV) 7.56 [pH] High 7.32-7.42 [facility] Comment on above: Order Comment: Speci men Type: VENOUS BLOOD SPECIMENOrdering Facility: [facility] Address: [address] [place] [address] Performed By: #### 2 4344-4 ####[facility] LABORATORYCLIA [id number] [address] pH adjusted to patient's actual temperature (BldV) 7.57 High 7.32-7.42 [facility] Comment on above: Order Comment: Speci men Type: VENOUS BLOOD SPECIMENOrdering Facility: [facility] Address: [address] [place] [address] Performed By: #### 2 4344-4 ####[facility] LABORATORYCLIA [id number] [address] [place] Potassium [Moles/Vol] 3.6 mmol/L Normal 3.5-5.0 [facility] Comment on above: Order Comment: Speci men Type: VENOUS BLOOD SPECIMENOrdering Facility: [facility] Address: [address] [place] [address] Performed By: #### 2 4344-4 ####[facility] LABORATORYCLIA [id number] [address] SET VENTILATOR RESPIRATORY RATE (BPM) 14 BPM Normal [facility] Comment on above: Order Comment: Speci men Type: VENOUS BLOOD SPECIMENOrdering Facility: [facility] Address: [address] [place] [address] Performed By: #### 2 4344-4 ####[facility] LABORATORYCLIA [id number] [address] [place] Sodium [Moles/Vol] 135 mmol/L Low 136-144 [facility] Comment on above: Order Comment: Speci men Type: VENOUS BLOOD SPECIMENOrdering Facility: [facility] Address: [address] [place] [address] Performed By: #### 2 4344-4 ####[facility] LABORATORYCLIA [id number] [address] [place] Hgb Bld-mCncon 06-15-2024 Hemoglobin (Bld) [Mass/Vol] 12.4 g/dL Normal 11.5-15.5 [facility] Comment on above: Order Comment: Speci men Type: BLOOD SPECIMENOrdering Facility: [facility] Address: [address] [place] [address] Performed By: #### 7 18-7 ####[facility] LABORATORYCLIA [id number] [address] PT panel Coag (PPP)on 2024 INR Coag (PPP) [Relative time] 1.4 {INR} High 0.9-1.3 [facility] Comment on above: Order Comment: Mady rivera Type: BLOOD SPECIMENOrdering Facility: [facility] Address: [address] [place] [address] [place] [address] Result Comment: [place] min K Antagonist (VKA) Therapeutic Range: INR 2 to 3 (Target INR of 2.5)Note: For patients treated with VKA drugs, such as warfarin, the [place] [employer] 2012 Guideline recommends a therapeutic INR range of 2 to 3 (target INR of 2.5). This recommendation includes high-risk patients with antiphospholipid syndrome with previous arterial or venous thromboembolism, current-generation mechanical or bioprosthetic aortic heart valve replacement.Note: Patients with mechanical aortic valve replacement and additional risk factors for thromboembolic events (atrial fibrillation, previous thromboembolism, LV dysfunction, hypercoagulable conditions) or an older generation mechanical AVR (i.e., ball in-Cage) or any mechanical MVR should have a INR therapeutic range of 2.5 to 3.5 (target INR of 3).Cathie GH, et al. Chest 2012, 141:7S-47SHector RA, et al. [facility] 2017, 70: 252-289 Performed By: #### 3 4528-0 ####[facility] LABORATORYCLIA [id number] [address] STATES OF [facility] PT Coag (PPP) [Time] 15.0 s High 9.7-13.0 [facility] Comment on above: Order Comment: Mady rivera Type: BLOOD SPECIMENOrdering Facility: [facility] Address: [address] [place] [address] Performed By: #### 3 4528-0 ####[facility] LABORATORYCLIA [id number] [address] [place] A1AT SerPl-mCncon 06-14-2024 Alpha 1 antitrypsin [Mass/Vol] 175 mg/dL Normal 90-200 [facility] Comment on above: Order Comment: Mady rivera Type: BLOOD SPECIMENOrdering Facility: [facility] Address: [address] [place] [address] Performed By: #### 1 6933-4, 95193-6, 2063-4, ANADAVIDS, 21663-3, 5-9 ####[facility] LABCLIA [id number] [place] [address] [place] ZACK BY IFA SCREENon 06-14-19 25 Nuclear Ab Ql (S) Negative Normal Negative [facility] Comment on above: Order Comment: Mady rivera Type: BLOOD SPECIMENOrdering Facility: [facility] Address: [address] [place] [address] Result Comment: Anti -nuclear antibody test is used as an aid in diagnosis of systemic autoimmune diseases. Where positive and clinically warranted, follow-up using disease-specific testing is recommended. Low positive titers are not uncommon with advanced age, certain chronic infections, and malignancies among others.Test methodology: Indirect fluorescence immunoassay (IFA) using HEp-2 cells. Performed By: #### 1 6933-4, 38863-3, 4, ANAIFPenny, 46508-2, 9 ####[facility] LABCLIA [id number] [place] [address] [place] Ammonia Plas-sCncon 06-14-19 25 Ammonia (P) [Moles/Vol] 38 umol/L Normal 11-51 A [facility] Comment on above: Order Comment: Mady rivera Type: BLOOD SPECIMENOrdering Facility: [facility] Address: [address] [place] [address] Performed By: #### 1 6362-6 ####[facility] LABORATORYCLIA [id number] [place] [address] [place] Bacteria Bld Culton 06-14-19 25 Bacteria identified Cx Nom (Bld) CULTURE, BLOOD: No growth 5 days Normal [facility] Comment on above: Performed By: #### 6 00-7 ####[facility]ORATORYCLIA [id number] [place], [place] [id number] [place] [address] [place] Bacteria identified Cx Nom (Bld) CULTURE, BLOOD: No growth 5 days Normal [facility] Comment on above: Performed By: #### 6 00-7 ####[facility] LABORATORYCLIA [id number] [address] [place] Bacteria Ur Culton 5 Bacteria identified Cx Nom (U) ORGANISM ID: 1 <10,000 CFU/ml Lactose fermenting gram negative rods Insignificant colony count. No further workup. ORGANISM ID: 2 <10,000 CFU/ml Proteus species Insignificant colony count. No further workup. Normal [facility] Comment on above: Performed By: #### 2 4356-8, 630-4 ####[facility] LABORATORYCLIA [id number] [address] [place] Bilirub Conj SerPl-mCncon Bilirubin.conjugated [Mass/Vol] 3.1 mg/dL High <0.3 [facility] Comment on above: Order Comment: Speci men Type: BLOOD SPECIMENOrdering Facility: [facility] Address: [address] [place] [address] Result Comment: Resu lts may be falsely decreased due to interference from hemolysis. Suggest reorder as clinically indicated. Performed By: #### 2 4323-8, 2532-0, 3040-3, 69315-1, 2157-6, 38580-0 ####[facility] LABORATORYCLIA [id number] [address] CBC panel Auto (Bld)on 06-14 Erythrocyte distribution width (RBC) [Ratio] 17.1 % High 11.5-15.0 [facility] Comment on above: Order Comment: Speci men Type: BLOOD SPECIMENOrdering Facility: [facility] Address: [address] [place] [address] Performed By: #### 5 8410-2 ####[facility]ORATORYCLIA [id number] [address] OF [facility] Hematocrit (Bld) [Volume fraction] 43.3 % Normal 36.0-46.0 [facility] Comment on above: Order Comment: Speci men Type: BLOOD SPECIMENOrdering Facility: [facility] Address: [address] [place] [address] Performed By: #### 5 8410-2 ####[facility]ORATORYCLIA [id number] [address] [place] Hemoglobin (Bld) [Mass/Vol] 14.5 g/dL Normal 11.5-15.5 [facility] Comment on above: Order Comment: Speci men Type: BLOOD SPECIMENOrdering Facility: [facility] Address: [address] [place] [address] Performed By: #### 5 8410-2 ####[facility] LABORATORYCLIA [id number] [address] [place] MCH (RBC) [Entitic mass] 30.3 pg Normal 26.0-34.0 [facility] Comment on above: Order Comment: Speci men Type: BLOOD SPECIMENOrdering Facility: [facility] Address: [address] [place] [address] Performed By: #### 5 8410-2 ####[facility] LABORATORYCLIA [id number] [address] [place] MCHC (RBC) [Mass/Vol] 33.5 g/dL Normal 30.5-36.0 [facility] Comment on above: Order Comment: Speci men Type: BLOOD SPECIMENOrdering Facility: [facility] Address: [address] [place] [address] Performed By: #### 5 8410-2 ####[facility] LABORATORYCLIA [id number] [address] [place] MCV (RBC) [Entitic vol] 90.6 fL Normal 80.0-100.0 [facility] Comment on above: Order Comment: Speci men Type: BLOOD SPECIMENOrdering Facility: [facility] Address: [address] [place], [place] [address] Performed By: #### 5 8410-2 ####[facility] LABORATORYCLIA [id number] [address] Nucleated RBC (Bld) [#/Vol] 0.05 10*3/uL High <0.01 [facility] Comment on above: Order Comment: Speci men Type: BLOOD SPECIMENOrdering Facility: [facility] Address: [address] [place] [address] Performed By: #### 5 8410-2 ####[facility] LABORATORYCLIA [id number] [address] [place] Platelet mean volume (Bld) [Entitic vol] 10.4 fL Normal 9.0-12.7 [facility] Comment on above: Order Comment: Speci men Type: BLOOD SPECIMENOrdering Facility: [facility] Address: [address] [place] [address] Performed By: #### 5 8410-2 ####[facility] LABORATORYCLIA [id number] [address] Platelets (Bld) [#/Vol] 91 10*3/uL Low 150-400 A [facility] Comment on above: Order Comment: Speci men Type: BLOOD SPECIMENOrdering Facility: [facility] Address: [address] [place] [address] Result Comment: No c lot detected. Performed By: #### 5 8410-2 ####[facility]ORATORYCLIA [id number] [address] RBC (Bld) [#/Vol] 4.78 10*6/uL Normal 3.90-5.20 [facility] Comment on above: Order Comment: Speci men Type: BLOOD SPECIMENOrdering Facility: [facility] Address: [address] [place] [address] Performed By: #### 5 8410-2 ####[facility]ORATORYCLIA [id number] [address] OF [place] WBC (Bld) [#/Vol] 14.81 10*3/uL High 3.70-11.00 [facility] Comment on above: Order Comment: Speci men Type: BLOOD SPECIMENOrdering Facility: [facility] Address: [address] [place] [address] Performed By: #### 5 8410-2 ####[facility] LABORATORYCLIA [id number] [address] CK SerPl-cCncon 06-14-2024 CK [Catalytic activity/Vol] 149 U/L Normal 42-196 [facility] Comment on above: Order Comment: Speci men Type: BLOOD SPECIMENOrdering Facility: [facility] Address: [address] [place] [address] Performed By: #### 2 4323-8, 2532-0, 3040-3, 45718-4, 2157-6, 51148-7 ####[facility] LABORATORYCLIA [id number] [address] OF [facility] CONSULTon 06-14-2024 CONSULT Normal [facility] CONSULT Normal [facility] CONSULT PROGon 06-14-2024 CONSULT PROG Normal [facility] CONSULT PROG Normal [facility] CREATININE BLDon 06-14-2024 Creatinine [Mass/Vol] 1.39 mg/dL High 0.58-0.96 [facility] Comment on above: Order Comment: Speci men Type: BLOOD SPECIMENOrdering Facility: [facility] Address: [address] [place] [address] Performed By: #### C RET1 ####[facility] LABORATORYCLIA [id number] [address] Creatinine and Glomerular filtration rate.predicted panel (S/P/Bld) 42 mL/min/1.73m??? Low >=60 [facility] Comment on above: Order Comment: Speci men Type: BLOOD SPECIMENOrdering Facility: [facility] Address: [address] [place] [address] Result Comment: Lily mated Glomerular Filtration Rate (eGFR) is calculated using the 2021 CKD-EPI creatinine equation. This equation utilizes serum creatinine, sex, and age as parameters. The creatinine assay has traceable calibration to isotope dilution-mass spectrometry. Refer to KDIGO guidelines for clinical interpretation. In patients with unstable renal function, e.g. those with acute kidney injury, the eGFR may not accurately reflect actual GFR. Performed By: #### C RET1 ####[facility] LABORATORYCLIA [id number] [place] [address] [place] Ceruloplasmin SerPl-mCncon 0 06-14-2024 Ceruloplasmin [Mass/Vol] 19 mg/dL Normal 16-45 [facility] Comment on above: Order Comment: Speci men Type: BLOOD SPECIMENOrdering Facility: [facility] Address: [address] [place] [address] Performed By: #### 1 6933-4, 65228-4, 2064-4, ANAIFS, 96030-8, 1825-9 ####[facility] LABCLIA [id number] [place] [address] [place] Comprehensive metabolic 2000 panelon 06-14-2024 Albumin [Mass/Vol] 2.6 g/dL Low 3.9-4.9 [facility] Comment on above: Order Comment: Mady rivera Type: BLOOD SPECIMENOrdering Facility: [facility] Address: [address] [place] [address] Performed By: #### 2 4323-8, 2532-0, 3040-3, 81051-0, 2156-10, ####[facility] LABORATORYCLIA [id number] [place] [address] [place] ALP [Catalytic activity/Vol] 299 U/L High 34-123 [facility] Comment on above: Order Comment: Speci men Type: BLOOD SPECIMENOrdering Facility: [facility] Address: [address] [place] [address] Performed By: #### 2 4323-8, 2532-0, 3040-3, 25639-6, 2156-6, ####[facility] LABORATORYCLIA [id number] [place] [address] [place] ALT With P-5'-P [Catalytic activity/Vol] 22 U/L Normal 7-38 [facility] Comment on above: Order Comment: Speci men Type: BLOOD SPECIMENOrdering Facility: [facility] Address: [address] [place] [address] Performed By: #### 2 4323-8, 2532-0, 3040-3, 66866-8, 2156-6, ####[facility] LABORATORYCLIA [id number] [place] [address] [place] Anion gap [Moles/Vol] 22 mmol/L High 8-15 [facility] Comment on above: Order Comment: Speci men Type: BLOOD SPECIMENOrdering Facility: [facility] Address: [address] [place] [address] Performed By: #### 2 4323-8, 2532-0, 3040-3, 79830-0, 6, ####[facility] LABORATORYCLIA [id number] [place] [address] [place] AST With P-5'-P [Catalytic activity/Vol] 72 U/L High 13-35 [facility] Comment on above: Order Comment: Speci men Type: BLOOD SPECIMENOrdering Facility: [facility] Address: [address] [place] [address] Performed By: #### 2 4323-8, 2532-0, 3040-3, 60988-7, 6, ####[facility] LABORATORYCLIA [id number] [place] [address] [place] Bilirubin [Mass/Vol] 4.7 mg/dL High 0.2-1.3 [facility] Comment on above: Order Comment: Speci men Type: BLOOD SPECIMENOrdering Facility: [facility] Address: [address] [place] [address] Performed By: #### 2 4323-8, 2532-0, 3040-3, 81241-9, 2156-6, ####[facility]ATORYCLIA [id number] [place] [address] [place] Calcium [Mass/Vol] 9.5 mg/dL Normal 8.5-10.2 [facility] Comment on above: Order Comment: Speci men Type: BLOOD SPECIMENOrdering Facility: [facility] Address: [address] [place] [address] Performed By: #### 2 4323-8, 2532-0, 3040-3, 02896-7, 6, ####[facility]ATORYCLIA [id number] [place] [address] [place] Chloride [Moles/Vol] 90 mmol/L Low 98-107 [facility] Comment on above: Order Comment: Speci men Type: BLOOD SPECIMENOrdering Facility: [facility] Address: [address] [place] [address] Performed By: #### 2 4323-8, 2532-0, 3040-3, 40721-0, 6, ####[facility]ATORYCLIA [id number] [place] [address] [place] CO2 [Moles/Vol] 23 mmol/L Normal 22-30 [facility] Comment on above: Order Comment: Speci men Type: BLOOD SPECIMENOrdering Facility: [facility] Address: [address] [place], [place] [address] Performed By: #### 2 4323-8, 2532-0, 3040-3, 93914-8, 2156-10, ####[facility]ATORYCLIA [id number] [place] [address] [place] Creatinine [Mass/Vol] 1.68 mg/dL High 0.58-0.96 [facility] Comment on above: Order Comment: Speci men Type: BLOOD SPECIMENOrdering Facility: [facility] Address: [address] [place] [address] Performed By: #### 2 4323-8, 2532-0, 3040-3, 03841-7, 2157-6, 44072-4 ####[facility]ATORYCLIA [id number] [place] [address] [place] Creatinine and Glomerular filtration rate.predicted panel (S/P/Bld) 34 mL/min/1.73m??? Low >=60 [facility] Comment on above: Order Comment: Mady rivera Type: BLOOD SPECIMENOrdering Facility: [facility] Address: [address] [place] [address] Result Comment: Lily mated Glomerular Filtration Rate (eGFR) is calculated using the 2020 CKD-EPI creatinine equation. This equation utilizes serum creatinine, sex, and age as parameters. The creatinine assay has traceable calibration to isotope dilution-mass spectrometry. Refer to KDIGO guidelines for clinical interpretation. In patients with unstable renal function, e.g. those with acute kidney injury, the eGFR may not accurately reflect actual GFR. Performed By: #### 2 4323-8, 2532-0, 3040-3, 71430-5, 7-6, 88720-5 ####[facility]ATORYCLIA [id number] [place] [address] [place] Glucose [Mass/Vol] 116 mg/dL High 74-99 [facility] Comment on above: Order Comment: Mady rivera Type: BLOOD SPECIMENOrdering Facility: [facility] Address: [address] [place] [address] Result Comment: The [place] [employer] (ADA) provides guidance for cutoff values for fasting glucose and random glucose. The ADA defines fasting as no caloric intake for at least 8 hours. Fasting plasma glucose results between 100 to 125 mg/dL indicate increased risk for diabetes (prediabetes).Fasting plasma glucose results greater than or equal to 126 mg/dL meet the criteria for diagnosis of diabetes. In the absence of unequivocal hyperglycemia, results should be confirmed by repeat testing. In a patient with classic symptoms of hyperglycemia or hyperglycemic crisis, random plasma glucose results greater than or equal to 200 mg/dL meet the criteria for diagnosis of diabetes.Reference: Standards of Medical Care in Diabetes 2016, [place] [employer]. Diabetes Care. 2016.39(Suppl 1). Performed By: #### 2 4323-8, 2532-0, 3040-3, 18978-7, 7-6, 60281-2 ####[facility]ORATORYCLIA [id number] [place] [address] [place] Potassium [Moles/Vol] 2.7 mmol/L Low 3.7-5.1 [facility] Comment on above: Order Comment: Speci men Type: BLOOD SPECIMENOrdering Facility: [facility] Address: [address] [place] [address] Performed By: #### 2 4323-8, 2532-0, 3040-3, 51971-3, 2156-6, ####[facility]ATORYCLIA [id number] [place] [address] [place] Protein [Mass/Vol] 5.4 g/dL Low 6.3-8.0 [facility] Comment on above: Order Comment: Speci men Type: BLOOD SPECIMENOrdering Facility: [facility] Address: [address] [place] [address] Performed By: #### 2 4323-8, 2532-0, 3040-3, 98957-9, 2156-10, ####[facility]ORATORYCLIA [id number] [place] [address] [place] Sodium [Moles/Vol] 135 mmol/L Low 136-144 [facility] Comment on above: Order Comment: Speci men Type: BLOOD SPECIMENOrdering Facility: [facility] Address: [address] [place] [address] Performed By: #### 2 4323-8, 2532-0, 3040-3, 52604-6, 2156-6, 35955-0 ####[facility]ORATORYCLIA [id number] [place] [address] [place] Urea nitrogen [Mass/Vol] 22 mg/dL High 7-21 [facility] Comment on above: Order Comment: Speci men Type: BLOOD SPECIMENOrdering Facility: [facility] Address: [address] [place] [address] Performed By: #### 2 4323-8, 2532-0, 3040-3, 78754-5, 2157-6, 70402-9 ####[facility]ORATORYCLIA [id number] [address] STATES OF [facility] ECG COMPLETEon 06-14-2024 ECG COMPLETE Normal [facility] Fibrinogen PPP-mCncon 2024 Fibrinogen Coag (PPP) [Mass/Vol] 163 mg/dL Low 200-400 [facility] Comment on above: Order Comment: Speci men Type: BLOOD SPECIMENOrdering Facility: [facility] Address: [address] [place] [address] Performed By: #### 3 255-7, 08522-4 ####[facility] LABORATORYCLIA [id number] [address] OF [facility] GLUCOSE, BLOOD (POC)on 06-14 Glucose [Mass/Vol] 118 mg/dL Abnormal 74 - 99 mg/dL [facility] Comment on above: Location:[facility], [address] [place] [address], [facility] The Accu-Chek Inform II glucose meter has not been approved for testing on patients receiving intensive medical intervention or therapy and results from this point of care glucose test should not be used for patient management decisions in these cases. Inaccurate results may also occur from other interfering factors, such as N-acetylcysteine (blood concentrations of greater than 5mg/dL), galactose, extremes of hematocrit (<10 or >65), or high doses of ascorbic acid (vitamin C) greater than 3mg/dL. Consider alternate testing mechanisms (e.g. core lab, blood gas instrument) in the above situations. Interpretation and review of laboratory results Abnormal [facility] Gas and Carbon monoxide pane l (BldV)on 06-14-2024 Base excess Calc (BldV) [Moles/Vol] 7 mmol/L High 0-2 [facility] Comment on above: Order Comment: Speci men Type: VENOUS BLOOD SPECIMENOrdering Facility: [facility] Address: [address] [place] [address] Performed By: #### 2 4344-4 ####[facility]ORATORYCLIA [id number] [address] STATES [facility] Body temperature 98.6 [degF] Normal [facility] Comment on above: Order Comment: Speci men Type: VENOUS BLOOD SPECIMENOrdering Facility: [facility] Address: [address] [place] [address] Performed By: #### 2 4344-4 ####[facility]ORATORYCLIA [id number] [address] [place] Calcium.ionized (BldV) [Mass/Vol] 1.14 mmol/L Normal 1.08-1.30 [facility] Comment on above: Order Comment: Speci men Type: VENOUS BLOOD SPECIMENOrdering Facility: [facility] Address: [address] [place] [address] Performed By: #### 2 4344-4 ####[facility]ATORYCLIA [id number] [address] STATES [facility] Calcium.ionized adjusted to pH 7.4 (BldA) [Moles/Vol] 1.24 mmol/L Normal 1.08-1.30 [facility] Comment on above: Order Comment: Speci men Type: VENOUS BLOOD SPECIMENOrdering Facility: [facility] Address: [address] [place] [address] Performed By: #### 2 4344-4 ####[facility]ORATORYCLIA [id number] [address] [place] Carboxyhemoglobin (BldV) [Mass fraction] 1.6 % Normal 0.0-2.0 [facility] Comment on above: Order Comment: Speci men Type: VENOUS BLOOD SPECIMENOrdering Facility: [facility] Address: [address] [place] [address] Result Comment: Carb oxyhemoglobin Reference Range for Smokers: 2.0-8.0% Performed By: #### 2 4344-4 ####[facility]ORATORYCLIA [id number] [address] [place] Chloride [Moles/Vol] 101 mmol/L Normal 97-105 [facility] Comment on above: Order Comment: Speci men Type: VENOUS BLOOD SPECIMENOrdering Facility: [facility] Address: [address] [place] [address] Performed By: #### 2 4344-4 ####[facility]ORYCLIA [id number] [address] [place] CO2 (BldV) [Partial pressure] 32 mm[Hg] Low 42-55 [facility] Comment on above: Order Comment: Speci men Type: VENOUS BLOOD SPECIMENOrdering Facility: [facility] Address: [address] [place] [address] Performed By: #### 2 4344-4 ####[facility]ORATORYCLIA [id number] [address] FIO2 35 % Normal [facility] Comment on above: Order Comment: Speci men Type: VENOUS BLOOD SPECIMENOrdering Facility: [facility] Address: [address] [place] [address] Performed By: #### 2 4344-4 ####[facility]ORATORYCLIA [id number] [address] [place] Glucose [Mass/Vol] 146 mg/dL High 60-105 [facility] Comment on above: Order Comment: Speci men Type: VENOUS BLOOD SPECIMENOrdering Facility: [facility] Address: [address] [place] [address] Performed By: #### 2 4344-4 ####[facility]ORATORYCLIA [id number] [address] [place] HCO3 (Bld) [Moles/Vol] 29 mmol/L High 24-28 [facility] Comment on above: Order Comment: Speci men Type: VENOUS BLOOD SPECIMENOrdering Facility: [facility] Address: [address] [place] [address] Performed By: #### 2 4344-4 ####[facility]ATORYCLIA [id number] [address] [place] Hematocrit (Bld) [Volume fraction] 40.9 % Normal 36.0-46.0 [facility] Comment on above: Order Comment: Speci men Type: VENOUS BLOOD SPECIMENOrdering Facility: [facility] Address: [address] [place] [address] Performed By: #### 2 4344-4 ####[facility]ORATORYCLIA [id number] [place] [address] [place] Hemoglobin (Bld) [Mass/Vol] 13.3 g/dL Normal 11.5-15.5 [facility] Comment on above: Order Comment: Speci men Type: VENOUS BLOOD SPECIMENOrdering Facility: [facility] Address: [address] [place] [address] Performed By: #### 2 4344-4 ####[facility]ORATORYCLIA [id number] [place] [address] [place] INHALED TIDAL VOLUME (ML) 450 Normal [facility] Comment on above: Order Comment: Speci men Type: VENOUS BLOOD SPECIMENOrdering Facility: [facility] Address: [address] [place] [address] Performed By: #### 2 4344-4 ####[facility]ATORYCLIA [id number] [place] [address] [place] Lactate [Moles/Vol] 2.1 mmol/L Normal 0.5-2.2 [facility] Comment on above: Order Comment: Speci men Type: VENOUS BLOOD SPECIMENOrdering Facility: [facility] Address: [address] [place] [address] Performed By: #### 2 4344-4 ####[facility] LABORATORYCLIA [id number] [place] [address] [place] Methemoglobin (Bld) [Mass fraction] 1.0 % Normal 0.0-1.5 [facility] Comment on above: Order Comment: Speci men Type: VENOUS BLOOD SPECIMENOrdering Facility: [facility] Address: [address] [place] [address] Performed By: #### 2 4344-4 ####[facility]ORATORYCLIA [id number] [address] O2 THERAPY VENT=Ventilator Normal [facility] Comment on above: Order Comment: Speci men Type: VENOUS BLOOD SPECIMENOrdering Facility: [facility] Address: [address] [place] [address] Performed By: #### 2 4344-4 ####[facility]ATORYCLIA [id number] [address] [place] Oxygen (BldV) [Partial pressure] 94 mm[Hg] High 35-45 [facility] Comment on above: Order Comment: Speci men Type: VENOUS BLOOD SPECIMENOrdering Facility: [facility] Address: [address] [place] [address] Performed By: #### 2 4344-4 ####[facility]ATORYCLIA [id number] [address] Oxygen saturation in Venous blood 98 % High 60-85 [facility] Comment on above: Order Comment: Speci men Type: VENOUS BLOOD SPECIMENOrdering Facility: [facility] Address: [address] [place] [address] Performed By: #### 2 4344-4 ####[facility]ATORYCLIA [id number] [address] Oxyhemoglobin (BldV) [Mass fraction] 95 % High 60-85 [facility] Comment on above: Order Comment: Speci men Type: VENOUS BLOOD SPECIMENOrdering Facility: [facility] Address: [address] [place] [address] Performed By: #### 2 4344-4 ####[facility]ATORYCLIA [id number] [address] [place] PEEP/CPAP 5 cmH2O Normal [facility] Comment on above: Order Comment: Speci men Type: VENOUS BLOOD SPECIMENOrdering Facility: [facility] Address: [address] [place] [address] Performed By: #### 2 4344-4 ####[facility]ATORYCLIA [id number] [address] [place] pH (BldV) 7.56 [pH] High 7.32-7.42 [facility] Comment on above: Order Comment: Speci men Type: VENOUS BLOOD SPECIMENOrdering Facility: [facility] Address: [address] [place] [address] Performed By: #### 2 4344-4 ####[facility] LABORATORYCLIA [id number] [address] [place] Potassium [Moles/Vol] 4.0 mmol/L Normal 3.5-5.0 [facility] Comment on above: Order Comment: Speci men Type: VENOUS BLOOD SPECIMENOrdering Facility: [facility] Address: [address] [place] [address] Performed By: #### 2 4344-4 ####[facility]ATORYCLIA [id number] [address] SET VENTILATOR RESPIRATORY RATE (BPM) 14 BPM Normal [facility] Comment on above: Order Comment: Speci men Type: VENOUS BLOOD SPECIMENOrdering Facility: [facility] Address: [address] [place] [address] Performed By: #### 2 4344-4 ####[facility]ATORYCLIA [id number] [address] STATES [facility] Sodium [Moles/Vol] 138 mmol/L Normal 136-144 [facility] Comment on above: Order Comment: Speci men Type: VENOUS BLOOD SPECIMENOrdering Facility: [facility] Address: [address] [place] [address] Performed By: #### 2 4344-4 ####[facility]ORATORYCLIA [id number] [address] [place] Base excess Calc (BldV) [Moles/Vol] 4 mmol/L High 0-2 [facility] Comment on above: Order Comment: Speci men Type: VENOUS BLOOD SPECIMENOrdering Facility: [facility] Address: [address] [place] [address] Performed By: #### 2 4344-4 ####[facility]ATORYCLIA [id number] [address] Body temperature 97.52 [degF] Normal [facility] Comment on above: Order Comment: Speci men Type: VENOUS BLOOD SPECIMENOrdering Facility: [facility] Address: [address] [place] [address] Performed By: #### 2 4344-4 ####[facility]ATORYCLIA [id number] [address] [place] Calcium.ionized (BldV) [Mass/Vol] 1.24 mmol/L Normal 1.08-1.30 [facility] Comment on above: Order Comment: Speci men Type: VENOUS BLOOD SPECIMENOrdering Facility: [facility] Address: [address] [place] [address] Performed By: #### 2 4344-4 ####[facility]ATORYCLIA [id number] [address] Calcium.ionized adjusted to pH 7.4 (BldA) [Moles/Vol] 1.28 mmol/L Normal 1.08-1.30 [facility] Comment on above: Order Comment: Speci men Type: VENOUS BLOOD SPECIMENOrdering Facility: [facility] Address: [address] [place] [address] Performed By: #### 2 4344-4 ####[facility]ATORYCLIA [id number] [address] [place] Carboxyhemoglobin (BldV) [Mass fraction] 1.3 % Normal 0.0-2.0 [facility] Comment on above: Order Comment: Speci men Type: VENOUS BLOOD SPECIMENOrdering Facility: [facility] Address: [address] [place] [address] Result Comment: Carb oxyhemoglobin Reference Range for Smokers: 2.0-8.0% Performed By: #### 2 4344-4 ####[facility]ATORYCLIA [id number] [address] [place] Chloride [Moles/Vol] 101 mmol/L Normal 97-105 [facility] Comment on above: Order Comment: Speci men Type: VENOUS BLOOD SPECIMENOrdering Facility: [facility] Address: [address] [place] [address] Performed By: #### 2 4344-4 ####[facility]ORATORYCLIA [id number] [address] CO2 (BldV) [Partial pressure] 38 mm[Hg] Low 42-55 [facility] Comment on above: Order Comment: Speci men Type: VENOUS BLOOD SPECIMENOrdering Facility: [facility] Address: [address] [place] [address] Performed By: #### 2 4344-4 ####[facility]ATORYCLIA [id number] [address] CO2 adjusted to patient's actual temperature (BldV) [Partial pressure] 37 mmHg Low 42-55 [facility] Comment on above: Order Comment: Speci men Type: VENOUS BLOOD SPECIMENOrdering Facility: [facility] Address: [address] [place] [address] Performed By: #### 2 4344-4 ####[facility] LABORATORYCLIA [id number] [address] [place] FIO2 35 % Normal [facility] Comment on above: Order Comment: Speci men Type: VENOUS BLOOD SPECIMENOrdering Facility: [facility] Address: [address] [place] [address] Performed By: #### 2 4344-4 ####[facility]ATORYCLIA [id number] [place] [address] [place] Glucose [Mass/Vol] 117 mg/dL High 60-105 [facility] Comment on above: Order Comment: Speci men Type: VENOUS BLOOD SPECIMENOrdering Facility: [facility] Address: [address] [place] [address] Performed By: #### 2 4344-4 ####[facility]ATORYCLIA [id number] [place] [address] [place] HCO3 (Bld) [Moles/Vol] 27 mmol/L Normal 24-28 [facility] Comment on above: Order Comment: Speci men Type: VENOUS BLOOD SPECIMENOrdering Facility: [facility] Address: [address] [place] [address] Performed By: #### 2 4344-4 ####[facility]ATORYCLIA [id number] [address] [place] Hematocrit (Bld) [Volume fraction] 43.4 % Normal 36.0-46.0 [facility] Comment on above: Order Comment: Speci men Type: VENOUS BLOOD SPECIMENOrdering Facility: [facility] Address: [address] [place] [address] Performed By: #### 2 4344-4 ####[facility]ATORYCLIA [id number] [address] [place] Hemoglobin (Bld) [Mass/Vol] 14.1 g/dL Normal 11.5-15.5 [facility] Comment on above: Order Comment: Speci men Type: VENOUS BLOOD SPECIMENOrdering Facility: [facility] Address: [address] [place] [address] Performed By: #### 2 4344-4 ####[facility] LABORATORYCLIA [id number] [address] [place] Lactate [Moles/Vol] 8.5 mmol/L High 0.5-2.2 [facility] Comment on above: Order Comment: Speci men Type: VENOUS BLOOD SPECIMENOrdering Facility: [facility] Address: [address] [place] [address] Performed By: #### 2 4344-4 ####[facility] LABORATORYCLIA [id number] [address] [place] Methemoglobin (Bld) [Mass fraction] 0.8 % Normal 0.0-1.5 [facility] Hospital Comment on above: Order Comment: Speci men Type: VENOUS BLOOD SPECIMENOrdering Facility: [facility] Address: [facility] [place] [address] Performed By: #### 2 4344-4 ####[facility] LABORATORYCLIA [id number] [address] [place] O2 THERAPY VENT=Ventilator Normal [facility] Comment on above: Order Comment: Speci men Type: VENOUS BLOOD SPECIMENOrdering Facility: [facility] Address: [address] [place] [address] Performed By: #### 2 4344-4 ####[facility] LABORATORYCLIA [id number] [address] [place] Oxygen (BldV) [Partial pressure] mm[Hg] Normal 35-45 [facility] Comment on above: Order Comment: Speci men Type: VENOUS BLOOD SPECIMENOrdering Facility: [facility] Address: [address] [place] [address] Performed By: #### 2 4344-4 ####[facility] LABORATORYCLIA [id number] [address] [place] Oxygen adjusted to patient's actual temperature (BldV) [Partial pressure] <40 Normal 35-45 [facility] Comment on above: Order Comment: Speci men Type: VENOUS BLOOD SPECIMENOrdering Facility: [facility] Address: [address] [place] [address] Performed By: #### 2 4344-4 ####[facility] LABORATORYCLIA [id number] [address] [place] Oxygen saturation in Venous blood 64 % Normal 60-85 [facility] Comment on above: Order Comment: Speci men Type: VENOUS BLOOD SPECIMENOrdering Facility: [facility] Address: [address] [place] [address] Performed By: #### 2 4344-4 ####[facility]ORYCLIA [id number] [address] [place] Oxyhemoglobin (BldV) [Mass fraction] 62 % Normal 60-85 [facility] Comment on above: Order Comment: Speci men Type: VENOUS BLOOD SPECIMENOrdering Facility: [facility] Address: [address] [place] [address] Performed By: #### 2 4344-4 ####[facility]ORATORYCLIA [id number] [place] [address] [place] pH (BldV) 7.46 [pH] High 7.32-7.42 [facility] Comment on above: Order Comment: Speci men Type: VENOUS BLOOD SPECIMENOrdering Facility: [facility] Address: [address] [place] [address] Performed By: #### 2 4344-4 ####[facility]ORATORYCLIA [id number] [address] [place] pH adjusted to patient's actual temperature (BldV) 7.47 High 7.32-7.42 [facility] Comment on above: Order Comment: Speci men Type: VENOUS BLOOD SPECIMENOrdering Facility: [facility] Address: [address] [place] [address] Performed By: #### 2 4344-4 ####[facility]ORATORYCLIA [id number] [address] [place] Potassium [Moles/Vol] 2.8 mmol/L Low 3.5-5.0 [facility] Comment on above: Order Comment: Speci men Type: VENOUS BLOOD SPECIMENOrdering Facility: [facility] Address: [address] [place] [address] Performed By: #### 2 4344-4 ####[facility]ORATORYCLIA [id number] [address] [place] Sodium [Moles/Vol] 138 mmol/L Normal 136-144 [facility] Comment on above: Order Comment: Speci men Type: VENOUS BLOOD SPECIMENOrdering Facility: [facility] Address: [address] [place] [address] Performed By: #### 2 4344-4 ####[facility]ORATORYCLIA [id number] [place] [address] [place] Base excess Calc (BldV) [Moles/Vol] 2 mmol/L Normal 0-2 [facility] Comment on above: Order Comment: Speci men Type: VENOUS BLOOD SPECIMENOrdering Facility: [facility] Address: [address] [place] [address] Performed By: #### 2 4344-4 ####[facility]ORATORYCLIA [id number] [address] Body temperature 97.34 [degF] Normal [facility] Comment on above: Order Comment: Speci men Type: VENOUS BLOOD SPECIMENOrdering Facility: [facility] Address: [address] [place] [address] Performed By: #### 2 4344-4 ####[facility]ORATORYCLIA [id number] [address] Calcium.ionized (BldV) [Mass/Vol] 1.18 mmol/L Normal 1.08-1.30 [facility] Comment on above: Order Comment: Speci men Type: VENOUS BLOOD SPECIMENOrdering Facility: [facility] Address: [address] [place] [address] Performed By: #### 2 4344-4 ####[facility]ATORYCLIA [id number] [address] Calcium.ionized adjusted to pH 7.4 (BldA) [Moles/Vol] 1.22 mmol/L Normal 1.08-1.30 [facility] Comment on above: Order Comment: Speci men Type: VENOUS BLOOD SPECIMENOrdering Facility: [facility] Address: [address] [place] [address] Performed By: #### 2 4344-4 ####[facility]ATORYCLIA [id number] [address] Carboxyhemoglobin (BldV) [Mass fraction] 0.8 % Normal 0.0-2.0 [facility] Comment on above: Order Comment: Speci men Type: VENOUS BLOOD SPECIMENOrdering Facility: [facility] Address: [address] [place] [address] Result Comment: Carb oxyhemoglobin Reference Range for Smokers: 2.0-8.0% Performed By: #### 2 4344-4 ####[facility]ATORYCLIA [id number] [address] [place] Chloride [Moles/Vol] 98 mmol/L Normal 97-105 [facility] Comment on above: Order Comment: Speci men Type: VENOUS BLOOD SPECIMENOrdering Facility: [facility] Address: [address] [place] [address] Performed By: #### 2 4344-4 ####[facility] LABORATORYCLIA [id number] [address] [place] CO2 (BldV) [Partial pressure] 34 mm[Hg] Low 42-55 [facility] Comment on above: Order Comment: Speci men Type: VENOUS BLOOD SPECIMENOrdering Facility: [facility] Address: [address] [place] [address] Performed By: #### 2 4344-4 ####[facility]ATORYCLIA [id number] [address] CO2 adjusted to patient's actual temperature (BldV) [Partial pressure] 33 mmHg Low 42-55 [facility] Comment on above: Order Comment: Speci men Type: VENOUS BLOOD SPECIMENOrdering Facility: [facility] Address: [address] [place] [address] Performed By: #### 2 4344-4 ####[facility]ATORYCLIA [id number] [address] [place] FIO2 100 % Normal [facility] Comment on above: Order Comment: Speci men Type: VENOUS BLOOD SPECIMENOrdering Facility: [facility] Address: [address] [place] [address] Performed By: #### 2 4344-4 ####[facility] LABORATORYCLIA [id number] [address] [place] Glucose [Mass/Vol] 120 mg/dL High 60-105 [facility] Comment on above: Order Comment: Speci men Type: VENOUS BLOOD SPECIMENOrdering Facility: [facility] Address: [address] [place] [address] Performed By: #### 2 4344-4 ####[facility]ORYCLIA [id number] [address] [place] HCO3 (Bld) [Moles/Vol] 25 mmol/L Normal 24-28 [facility] Comment on above: Order Comment: Speci men Type: VENOUS BLOOD SPECIMENOrdering Facility: [facility] Address: [address] [place] [address] Performed By: #### 2 4344-4 ####[facility]ATORYCLIA [id number] [place] [address] [place] Hematocrit (Bld) [Volume fraction] 45.6 % Normal 36.0-46.0 [facility] Comment on above: Order Comment: Speci men Type: VENOUS BLOOD SPECIMENOrdering Facility: [facility] Address: [address] [place] [address] Performed By: #### 2 4344-4 ####[facility]ATORYCLIA [id number] [place] [address] [place] Hemoglobin (Bld) [Mass/Vol] 14.9 g/dL Normal 11.5-15.5 [facility] Comment on above: Order Comment: Speci men Type: VENOUS BLOOD SPECIMENOrdering Facility: [facility] Address: [address] [place] [address] Performed By: #### 2 4344-4 ####[facility]ATORYCLIA [id number] [place] [address] [place] Lactate [Moles/Vol] 9.5 mmol/L High 0.5-2.2 [facility] Comment on above: Order Comment: Speci men Type: VENOUS BLOOD SPECIMENOrdering Facility: [facility] Address: [address] [place] [address] Performed By: #### 2 4344-4 ####[facility]ATORYCLIA [id number] [address] [place] Methemoglobin (Bld) [Mass fraction] 0.7 % Normal 0.0-1.5 [facility] Comment on above: Order Comment: Speci men Type: VENOUS BLOOD SPECIMENOrdering Facility: [facility] Address: [address] [place] [address] Performed By: #### 2 4344-4 ####[facility]ATORYCLIA [id number] [address] O2 THERAPY VENT=Ventilator Normal [facility] Comment on above: Order Comment: Speci men Type: VENOUS BLOOD SPECIMENOrdering Facility: [facility] Address: [address] [place] [address] Performed By: #### 2 4344-4 ####[facility]ATORYCLIA [id number] [address] [place] Oxygen (BldV) [Partial pressure] 42 mm[Hg] Normal 35-45 [facility] Comment on above: Order Comment: Speci men Type: VENOUS BLOOD SPECIMENOrdering Facility: [facility] Address: [address] [place] [address] Performed By: #### 2 4344-4 ####[facility]ORYCLIA [id number] [address] Oxygen adjusted to patient's actual temperature (BldV) [Partial pressure] 40 mmHg Normal 35-45 [facility] Comment on above: Order Comment: Speci men Type: VENOUS BLOOD SPECIMENOrdering Facility: [facility] Address: [address] [place] [address] Performed By: #### 2 4344-4 ####[facility]ATORYCLIA [id number] [address] [place] Oxygen saturation in Venous blood 78 % Normal 60-85 [facility] Comment on above: Order Comment: Speci men Type: VENOUS BLOOD SPECIMENOrdering Facility: [facility] Address: [address] [place] [address] Performed By: #### 2 4344-4 ####[facility]ATORYCLIA [id number] [address] Oxyhemoglobin (BldV) [Mass fraction] 77 % Normal 60-85 [facility] Comment on above: Order Comment: Speci men Type: VENOUS BLOOD SPECIMENOrdering Facility: [facility] Address: [address] [place] [address] Performed By: #### 2 4344-4 ####[facility]ATORYCLIA [id number] [address] [place] pH (BldV) 7.47 [pH] High 7.32-7.42 [facility] Comment on above: Order Comment: Speci men Type: VENOUS BLOOD SPECIMENOrdering Facility: [facility] Address: [address] [place] [address] Performed By: #### 2 4344-4 ####[facility]ATORYCLIA [id number] [address] [place] pH adjusted to patient's actual temperature (BldV) 7.48 High 7.32-7.42 [facility] Comment on above: Order Comment: Speci men Type: VENOUS BLOOD SPECIMENOrdering Facility: [facility] Address: [address] [place] [address] Performed By: #### 2 4344-4 ####[facility]ATORYCLIA [id number] [place] [address] [place] Potassium [Moles/Vol] 2.9 mmol/L Low 3.5-5.0 [facility] Comment on above: Order Comment: Speci men Type: VENOUS BLOOD SPECIMENOrdering Facility: [facility] Address: [address] [place] [address] Performed By: #### 2 4344-4 ####[facility]ORYCLIA [id number] [place] [address] [place] Sodium [Moles/Vol] 138 mmol/L Normal 136-144 [facility] Comment on above: Order Comment: Speci men Type: VENOUS BLOOD SPECIMENOrdering Facility: [facility] Address: [address] [place] [address] Performed By: #### 2 4344-4 ####[facility]ATORYCLIA [id number] [place] [address] [place] HBV core Ab Ser Qlon 025 HBV core Ab Ql (S) Negative Normal Negative [facility] Comment on above: Order Comment: Speci men Type: BLOOD SPECIMENOrdering Facility: [facility] Address: [address] [place] [address] Result Comment: No e vidence of current or past infection with Hepatitis B virus. Should recent infection be suspected, repeat testing may be considered 3-4 weeks after this draw. Performed By: #### 1 6933-4, 43396-3, 2064-4, ANAIFS, 98983-8, 1825-9 ####[facility] LABCLIA [id number] [place] [address] [place] HBV surface Ab Ql (S)on HBV surface Ab Qn (S) 3.50 mIU/mL Normal [facility] Comment on above: Order Comment: Speci miguel Type: BLOOD SPECIMENOrdering Facility: [facility] Address: [address] [place] [address] Result Comment: <8.5 mIU/mL: No serological evidence of immunity to Hepatitis B Virus.>/= 8.5 to <11.5 mIU/mL: No serological evidence of immunity to Hepatitis B Virus.>/= 11.5 mIU/mL: Consistent with serological evidence of immunity to Hepatitis B Virus. Performed By: #### 2 2322-2, 5195-3, 14178-7, 253-0, ####[facility]ITALCL[facility] [id number] [address] STATES OF [facility] HBV surface Ab Ser Qlon HBV surface Ab Ql (S) Negative Normal [facility] Comment on above: Order Comment: [facility] Type: BLOOD SPECIMENOrdering Facility: [facility] Address: [address] [place] [address] Result Comment: No s erological evidence of immunity to Hepatitis B Virus. Performed By: #### 2 2322-2, 5195-3, 89769-2, 2532-0, ####[facility]ATORYCLIA [id number] [place] [address] [place] HBV surface Ag Ser Qlon 02 HBV surface Ag Ql (S) Non-Reactive Normal Nonreactive [facility] Comment on above: Order Comment: Speci men Type: BLOOD SPECIMENOrdering Facility: [facility] Address: [address] [place] [address] Performed By: #### 2 2322-2, 5195-3, 75792-3, 2532-0, 45759-5 ####[facility]ATORYCLIA [id number] [address] HCV Ab Ser Qlon 06-14-2024 HCV Ab Ql (S) Non-Reactive Normal Nonreactive [facility] Comment on above: Order Comment: Speci men Type: BLOOD SPECIMENOrdering Facility: [facility] Address: [address] [place] [address] Result Comment: The result suggests no evidence of active infection with Hepatitis C virus. Should recent infection be suspected, repeat testing may be considered 4-6 weeks after this draw. Performed By: #### 1 6128-1 ####[facility]ITALCL[facility] [id number] [address] HIGH SENSITIVITY TROPONIN To n 06-14-2024 Troponin T.cardiac High sensitivity method [Mass/Vol] 32 ng/L High <12 [facility] Comment on above: Order Comment: Speci men Type: BLOOD SPECIMENOrdering Facility: [facility] Address: [address] [place] [address] Performed By: #### H STNT ####[facility]ORYCLIA [id number] [address] [place] HISTORY PHYSICALon 5 HISTORY PHYSICAL Normal [facility] HIV 1+2 Ab IA Qlon 5 HIV 1 and 2 Ab IA.rapid Nom (S/P/Bld) Normal [facility] Comment on above: Order Comment: Speci men Type: BLOOD SPECIMENOrdering Facility: [facility] Address: [address] [place] [address] Result Comment: Test not indicated. Performed By: #### 2 2322-2, 5195-3, 02418-0, 2532-0, 34173-1 ####[facility]ORYCLIA [id number] [address] OF [facility] HIV 1+2 Ab+HIV1 p24 Ag IA Ql Non-Reactive Normal Nonreactive [facility] Comment on above: Order Comment: Speci men Type: BLOOD SPECIMENOrdering Facility: [facility] Address: [address] [place] [address] Result Comment: [place] Rev. Code 3701.243(E): This information has been disclosed to you from confidential records protected from disclosure by state law. ???You shall make no further disclosure of this information without the specific, written, and informed release of the individual to whom it pertains or as otherwise permitted by state law. A general authorization for the release of medical or other information is not sufficient for the purpose of the release of HIV test results or diagnoses.Test methodology for this assay has moved from AMEEaur XP to [employer] 8000 effective February 14, 2022. Please note there may be a change in the reporting units and/or reference range. Performed By: #### 2 2322-2, 5195-3, 15464-7, 2532-0, ####[facility]ORYCLIA [id number] [address] STATES OF [facility] HIV immunoassay testing algorithm interpretation (S/P/Bld) [Interp] Normal [facility] Comment on above: Order Comment: Speci men Type: BLOOD SPECIMENOrdering Facility: [facility] Address: [address] [place] [address] Result Comment: No e vidence of HIV-1 or HIV-2 infection. Should recent infection be suspected, repeat testing may be considered 2-3 weeks after this draw. Performed By: #### 2 2322-2, 5195-3, 76959-0, 2532-0, 24532-3 ####[facility]ORYCLIA [id number] [address] [place] Hgb Bld-mCncon 06-14-2024 Hemoglobin (Bld) [Mass/Vol] 13.6 g/dL Normal 11.5-15.5 [facility] Comment on above: Order Comment: Speci men Type: BLOOD SPECIMENOrdering Facility: [facility] Address: [address] [place] [address] Performed By: #### 7 18-7 ####[facility]ATORYCLIA [id number] [place] [address] [place] Hemoglobin (Bld) [Mass/Vol] 13.1 g/dL Normal 11.5-15.5 [facility] Comment on above: Order Comment: Speci men Type: BLOOD SPECIMENOrdering Facility: [facility] Address: [address] [place] [address] Performed By: #### 7 18-7 ####[facility]ATORYCLIA [id number] [place] [address] [place] Hemoglobin (Bld) [Mass/Vol] 13.2 g/dL Normal 11.5-15.5 [facility] Comment on above: Order Comment: Speci men Type: BLOOD SPECIMENOrdering Facility: [facility] Address: [address] [place] [address] Performed By: #### 7 18-7 ####[facility]ATORYCLIA [id number] [place] [address] [place] LDH SerPl-cCncon 06-14-2024 LDH [Catalytic activity/Vol] 397 U/L High 135-214 [facility] Comment on above: Order Comment: Speci men Type: BLOOD SPECIMENOrdering Facility: [facility] Address: [address] [place] [address] Performed By: #### 2 4323-8, 2532-0, 3040-3, 12207-7, 2157-6, 81618-6 ####[facility]ATORYCLIA [id number] [place] [address] [place] LDH [Catalytic activity/Vol] 381 U/L High 135-214 [facility] Comment on above: Order Comment: Speci men Type: BLOOD SPECIMENOrdering Facility: [facility] Address: [address] [place] [address] Performed By: #### 2 2322-2, 5195-3, 80936-7, 2-0, ####[facility]ORYCLIA [id number] [address] OF [facility] Lactate (Bld) [Moles/Vol]on 06-14-2024 Lactate [Moles/Vol] 5.4 mmol/L High 0.5-2.2 [facility] Comment on above: Order Comment: Speci men Type: BLOOD SPECIMENOrdering Facility: [facility] Address: [address] [place] [address] Performed By: #### 3 2693-4 ####[facility]ATORYCLIA [id number] [address] Lipase SerPl-cCncon 06-14-19 25 Lipase [Catalytic activity/Vol] 20 U/L Normal 16-61 [facility] Comment on above: Order Comment: Speci men Type: BLOOD SPECIMENOrdering Facility: [facility] Address: [address] [place] [address] Performed By: #### 2 4323-8, 2532-0, 3040-3, 35352-6, 2156-6, ####[facility]ATORYCLIA [id number] [address] Magnesium SerPl-mCncon 06-14 Magnesium [Mass/Vol] 2.0 mg/dL Normal 1.7-2.3 [facility] Comment on above: Order Comment: Speci men Type: BLOOD SPECIMENOrdering Facility: [facility] Address: [address] [place] [id number] Performed By: #### 2 4323-8, 2532-0, 3040-3, 13030-1, 2156-6, ####[facility]ATORYCLIA [id number] [address] [place] Performed By: #### 2 2322-2, 5195-3, 10701-9, 2531-0, ####[facility]ATORYCLIA [id number] [place] [address] [place] Mitochondria Ab IF Ql (S)on 06-14-2024 Mitochondria M2 Ab IA Qn (S) 17.1 Units Normal <=20.0 [facility] Comment on above: Order Comment: Speci men Type: BLOOD SPECIMENOrdering Facility: [facility] Address: [address] [place] [address] Performed By: #### 1 6933-4, 20125-4, 2063-08, MARCIAL, 35914-4, 1825-01 ####[facility] LABCLIA [id number] [address] [place] Mitochondria M2 Ab Ql (S) Negative Normal Negative [facility] Comment on above: Order Comment: Speci [facility] Type: BLOOD SPECIMENOrdering Facility: [facility] Address: [address] [place] [address] Result Comment: Anti -mitochondrial antibody test is used as an aid in diagnosis of primary biliary cholangitis. Clinical correlation is required. Performed By: #### 1 6933-4, 68806-4, 2063-08, MARCIAL, 63852-3, 1825-01 ####[facility] LABCLIA [id number] [place] [address] [place] POTASSIUMon 06-14-2024 Potassium [Moles/Vol] 4.4 mmol/L Normal 3.7-5.1 [facility] Comment on above: Order Comment: Speci men Type: BLOOD SPECIMENOrdering Facility: [facility] Address: [address] [place] [address] Performed By: #### K 1 ####[facility]ATORYCLIA [id number] [address] [place] PT panel Coag (PPP)on 2024 INR Coag (PPP) [Relative time] 1.8 {INR} High 0.9-1.3 [facility] Comment on above: Order Comment: Speci men Type: BLOOD SPECIMENOrdering Facility: [facility] Address: [address] [place] [address] Result Comment: [place] min K Antagonist (VKA) Therapeutic Range: INR 2 to 3 (Target INR of 2.5)Note: For patients treated with VKA drugs, such as warfarin, the [place] [employer] 2012 Guideline recommends a therapeutic INR range of 2 to 3 (target INR of 2.5). This recommendation includes high-risk patients with antiphospholipid syndrome with previous arterial or venous thromboembolism, current-generation mechanical or bioprosthetic aortic heart valve replacement.Note: Patients with mechanical aortic valve replacement and additional risk factors for thromboembolic events (atrial fibrillation, previous thromboembolism, LV dysfunction, hypercoagulable conditions) or an older generation mechanical AVR (i.e., ball in-Cage) or any mechanical MVR should have a INR therapeutic range of 2.5 to 3.5 (target INR of 3).Cathie GH, et al. Chest 2012, 141:7S-47SNishlance RA, et al. [facility] 2017, 70: 252-289 Performed By: #### 3 255-7, 86394-6 ####[facility] [facility]ITAL[facility]IA [id number] [place] [address] [place] PT Coag (PPP) [Time] 18.3 s High 9.7-13.0 [facility] Comment on above: Order Comment: Mady rivera Type: BLOOD SPECIMENOrdering Facility: [facility] Address: [address] [place] [address] Performed By: #### 3 255-7, 63025-4 ####[facility] LABORATORYCLIA [id number] [place] [address] [place] INR Coag (PPP) [Relative time] 2.5 {INR} High 0.9-1.3 [facility] Comment on above: Order Comment: Mady rivera Type: BLOOD SPECIMENOrdering Facility: [facility] Address: [address] [place] [address] Result Comment: Chelsea min K Antagonist (VKA) Therapeutic Range: INR 2 to 3 (Target INR of 2.5)Note: For patients treated with VKA drugs, such as warfarin, the [place] [employer] 2012 Guideline recommends a therapeutic INR range of 2 to 3 (target INR of 2.5). This recommendation includes high-risk patients with antiphospholipid syndrome with previous arterial or venous thromboembolism, current-generation mechanical or bioprosthetic aortic heart valve replacement.Note: Patients with mechanical aortic valve replacement and additional risk factors for thromboembolic events (atrial fibrillation, previous thromboembolism, LV dysfunction, hypercoagulable conditions) or an older generation mechanical AVR (i.e., ball in-Cage) or any mechanical MVR should have a INR therapeutic range of 2.5 to 3.5 (target INR of 3).Cathie GH, et al. Chest 2012, 141:7S-47SNishimdarling RA, et al. [facility] 2017, 70: 252-289 Performed By: #### 3 4528-0, 40256-0 ####[facility] LABORATORYCLIA [id number] [address] [place] PT Coag (PPP) [Time] 25.5 s High 9.7-13.0 [facility] Comment on above: Order Comment: Speci men Type: BLOOD SPECIMENOrdering Facility: [facility] Address: [address] [place] [address] Performed By: #### 3 4528-0, 64120-6 ####[facility] [id number] [address] OF [facility] SEPSIS LACTATE W/ REFLEX (IN ITIAL)on 06-14-2024 Lactate [Moles/Vol] 9.4 mmol/L High 0.0-2.0 [facility] Comment on above: Order Comment: Speci men Type: BLOOD SPECIMENOrdering Facility: [facility] Address: [address] [place] [address] Performed By: #### S LACTR ####[facility] LABORATORYCLIA [id number] [address] SEPSIS LACTATE W/ REFLEX (SE COND)on 06-14-2024 Lactate [Moles/Vol] 9.0 mmol/L High 0.0-2.0 [facility] Comment on above: Order Comment: Speci men Type: BLOOD SPECIMENOrdering Facility: [facility] Address: [address] [place] [address] Performed By: #### S LACT2 ####[facility] [id number] [place] [address] [place] STAPHYLOCOCCUS AUREUS AND MR SA SCREEN, PCR, NASALon 06-14-2024 S. aureus and MRSA panel TONIO+probe (Nose) Methicillin-SUSCEPTIBLE Staphylococcus aureus Detected Abnormal Not Detected [facility] Comment on above: Order Comment: Speci men Type: SWABOrdering Facility: [facility] Address: [address] [place] [address] Performed By: #### S APCR ####[facility] C[facility] SERVICESIA [id number] [place] [address] [place] Smooth muscle Ab Ql (S)on ACTIN SMOOTH MUSCLE IGG QUALITATIVE Negative Normal Negative [facility] Comment on above: Order Comment: Speci men Type: BLOOD SPECIMENOrdering Facility: [facility] Address: [address] [place] [address] Performed By: #### 1 6933-4, 58782-6, 2063-08, ANAIFS, 63807-3, 1825-01 ####[facility] LABCLIA [id number] [place] [address] [place] ACTIN SMOOTH MUSCLE IGG QUANTITATIVE 11 Units Normal <20 [facility] Comment on above: Order Comment: Speci men Type: BLOOD SPECIMENOrdering Facility: [facility] Address: [address] [place] [address] Performed By: #### 1 6933-4, 13297-8, 4, ANAIFS, 93389-1, 1825-01 ####[facility] LABCLIA [id number] [place] [address] [place] TOXICOLOGY SCREEN, ROUTINE U RINEon 06-14-2024 Amphetamines Confirm (U) [Mass/Vol] Negative Normal Negative [facility] Comment on above: Order Comment: Speci men Type: URINE SPECIMENOrdering Facility: [facility] Address: [address] [place] [address] Result Comment: Cuto ff threshold at 1000 ng/mL. Performed By: #### U TOX2 ####[facility]ORYCLIA [id number] [address] [place] BARBITURATES, URINE Negative Normal Negative [facility] Comment on above: Order Comment: Speci men Type: URINE SPECIMENOrdering Facility: [facility] Address: [address] [place] [address] Result Comment: Cuto ff threshold at 200 ng/mL. Performed By: #### U TOX2 ####[facility]ORATORYCLIA [id number] [place] [address] [place] BENZODIAZEPINES, UR Positive Abnormal Negative [facility] Comment on above: Order Comment: Speci men Type: URINE SPECIMENOrdering Facility: [facility] Address: [address] [place] [address] Result Comment: Cuto ff threshold at 200 ng/mL. Performed By: #### U TOX2 ####[facility]ATORYCLIA [id number] [place] [address] [place] Cannabinoids Screen Ql (U) Negative Normal Negative [facility] Comment on above: Order Comment: Speci men Type: URINE SPECIMENOrdering Facility: [facility] Address: [address] [place] [address] Result Comment: Cuto ff threshold at 50 ng/mL. Performed By: #### U TOX2 ####[facility]ATORYCLIA [id number] [place] [address] [place] Cocaine Ql (U) Negative Normal Negative [facility] Comment on above: Order Comment: Speci men Type: URINE SPECIMENOrdering Facility: [facility] Address: [address] [place] [address] Result Comment: Cuto ff threshold at 300 ng/mL. Performed By: #### U TOX2 ####[facility]ORYCLIA [id number] [place] [address] [place] Ethanol (U) [Mass/Vol] <11 Normal <11 [facility] Comment on above: Order Comment: Speci men Type: URINE SPECIMENOrdering Facility: [facility] Address: [address] [place] [address] Performed By: #### U TOX2 ####[facility]ORATORYCLIA [id number] [address] Opiates Screen Ql (U) Negative Normal Negative [facility] Comment on above: Order Comment: Speci men Type: URINE SPECIMENOrdering Facility: [facility] Address: [address] [place] [address] Result Comment: Cuto ff threshold at 300 ng/mL. Performed By: #### U TOX2 ####[facility]ORATORYCLIA [id number] [address] oxyCODONE cutoff Screen (U) [Mass/Vol] Negative Normal Negative [facility] Comment on above: Order Comment: Speci men Type: URINE SPECIMENOrdering Facility: [facility] Address: [address] [place] [address] Result Comment: Cuto ff threshold at 100 ng/mL. Performed By: #### U TOX2 ####[facility] LABORATORYIA [id number] [address] Phencyclidine Ql (U) Negative Normal Negative [facility] Comment on above: Order Comment: Speci men Type: URINE SPECIMENOrdering Facility: [facility] Address: [address] [place] [address] Result Comment: Cuto ff threshold at 25 ng/mL. Performed By: #### U TOX2 ####[facility] LABORATORYCLIA [id number] [address] OF [facility] TYPE + SCREENon 06-14-2024 ABO O Normal [facility] Comment on above: Order Comment: Speci men Type: BLOOD SPECIMENOrdering Facility: [facility] Address: [address] [place] [address] Performed By: #### T SCR ####[facility]LO[facility] BANKCLIA [id number] [address] Rh Nom (Bld) Positive Normal [facility] Comment on above: Order Comment: Speci men Type: BLOOD SPECIMENOrdering Facility: [facility] Address: [address] [place] [address] Performed By: #### T SCR ####[facility]LO[facility] BANKCLIA [id number] [place] [id number] [place] [facility] TYPE AND SCREEN EXPIRATION 06/17/2024 23:59 Normal [facility] Comment on above: Order Comment: Speci men Type: BLOOD SPECIMENOrdering Facility: [facility] Address: [address] [place] [address] Performed By: #### T SCR ####[facility] BLO[facility] BANKCLIA [id number] [place] [id number] [place] US ABD LIVER VASCULARon 02-0 US ABD LIVER VASCULAR Normal [facility] US DOPPLER COMPLETEon 2024 US DOPPLER COMPLETE Normal [facility] Upper GI endoscopyon 025 Upper GI endoscopy Normal [facility] Urinalysis complete panel (U )on 06-14-2024 Bilirubin Ql (U) 1+ Abnormal Negative [facility] Comment on above: Order Comment: Speci men Type: URINE SPECIMENOrdering Facility: [facility] Address: [address] [place] [address] Result Comment: Sugg est correlation with clinical findings and serum bilirubin if clinically indicated. Performed By: #### 2 4356-8, 630-4 ####[facility] LABORATORYCLIA [id number] [place] [id number] [place] STATES [facility] Clarity (Unsp spec) Clear Normal Clear [facility] Comment on above: Order Comment: Speci men Type: URINE SPECIMENOrdering Facility: [facility] Address: [address] [place] [address] Performed By: #### 2 4356-8, 630-4 ####[facility] LABORATORYCLIA [id number] [address] OF [facility] Color (U) Yellow Normal yellow [facility] Comment on above: Order Comment: Speci men Type: URINE SPECIMENOrdering Facility: [facility] Address: [address] [place] [address] Performed By: #### 2 4356-8, 630-4 ####[facility] LABORATORYCLIA [id number] [address] Glucose Test strip (U) [Mass/Vol] Negative Normal Trace, Negative [facility] Comment on above: Order Comment: Speci men Type: URINE SPECIMENOrdering Facility: [facility] Address: [address] [place] [address] Performed By: #### 2 4356-8, 630-4 ####[facility]ORATORYCLIA [id number] [address] Hemoglobin Ql (U) 2+ Abnormal Negative, Trace [facility] Comment on above: Order Comment: Speci men Type: URINE SPECIMENOrdering Facility: [facility] Address: [address] [place] [address] Performed By: #### 2 4356-8, 630-4 ####[facility]ORATORYCLIA [id number] [address] Ketones Ql (U) Trace Normal Negative, Trace [facility] Comment on above: Order Comment: Speci men Type: URINE SPECIMENOrdering Facility: [facility] Address: [address] [place] [address] Performed By: #### 2 4356-8, 630-4 ####[facility]ORATORYCLIA [id number] [address] Leukocyte esterase Test strip Ql (U) 500 Melina/uL Abnormal Negative, 25 Melina/uL [facility] Comment on above: Order Comment: Speci men Type: URINE SPECIMENOrdering Facility: [facility] Address: [address] [place] [address] Performed By: #### 2 4356-8, 630-4 ####[facility]ORATORYCLIA [id number] [place] [address] [place] Nitrite Ql (U) Negative Normal Negative [facility] Comment on above: Order Comment: Speci men Type: URINE SPECIMENOrdering Facility: [facility] Address: [address] [place] [address] Performed By: #### 2 4356-8, 630-4 ####[facility]ORATORYCLIA [id number] [address] STATES [facility] pH (U) 6.5 [pH] Normal 5.0-8.0 [facility] Comment on above: Order Comment: Speci men Type: URINE SPECIMENOrdering Facility: [facility] Address: [address] [place] [address] Performed By: #### 2 4356-8, 630-4 ####[facility]ATORYCLIA [id number] [address] Protein (U) [Mass/Vol] 1+ Abnormal Trace , Negative [facility] Comment on above: Order Comment: Speci men Type: URINE SPECIMENOrdering Facility: [facility] Address: [address] [place] [address] Performed By: #### 2 4356-8, 630-4 ####[facility]ATORYCLIA [id number] [address] RBC LM.HPF (Urine sed) [#/Area] 11-25 /HPF Abnormal 0-3 /HPF [facility] Comment on above: Order Comment: Speci men Type: URINE SPECIMENOrdering Facility: [facility] Address: [address] [place] [address] Performed By: #### 2 4356-8, 630-4 ####[facility]ATORYCLIA [id number] [address] Specific gravity (U) [Rel density] >1.040 High 1.005-1.030 [facility] Comment on above: Order Comment: Speci men Type: URINE SPECIMENOrdering Facility: [facility] Address: [address] [place] [address] Performed By: #### 2 4356-8, 630-4 ####[facility] LABORATORYCLIA [id number] [place], [place] [address] [place] [address] [place] Urobilinogen Ql (U) 1+ Abnormal Normal [facility] Comment on above: Order Comment: Speci men Type: URINE SPECIMENOrdering Facility: [facility] Address: [address] [place] [address] Performed By: #### 2 4356-8, 630-4 ####[facility]ATORYCLIA [id number] [address] OF [place] WBC LM.HPF (Urine sed) [#/Area] /[HPF] Abnormal 0-5 /HPF [facility] Comment on above: Order Comment: Speci men Type: URINE SPECIMENOrdering Facility: [facility] Address: [address] [place] [address] Performed By: #### 2 4356-8, 630-4 ####[facility]ATORYCLIA [id number] [address] Vancomycin random [Mass/Vol] on 06-14-2024 Vancomycin [Mass/Vol] 8.6 ug/mL Low 10.0-20.0 [facility] Comment on above: Order Comment: Speci men Type: BLOOD SPECIMENOrdering Facility: [facility] Address: [address] [place] [address] Result Comment: Refe rence ranges and high/low indicator flags are provided as general guidelines only. The treating physician must determine appropriate target levels/dosing based on the specific clinical situation. Performed By: #### 4 091-5 ####[facility]ORATORYCLIA [id number] [address] [place] XR CHEST 1V FRONTALon 2024 XR CHEST 1V FRONTAL Normal [facility] XR CHEST 1V FRONTAL Normal [facility] aPTT PPPon 06-14-2024 aPTT Coag (PPP) [Time] 33.[address] High 23.0-32.4 [facility] Comment on above: Order Comment: Speci men Type: BLOOD SPECIMENOrdering Facility: [facility] Address: [address] [place] [id number] Performed By: #### 3 4528-0, 94158-3 ####[facility] LABORATORYIA [id number] [place] [address] [place] [facility] 12 Lead EKGon 06-13-2024 12 Lead EKG [facility] Cardiovascular Services [address] [place] [address] 12 Lead EKG 06/13/24 1710 MR#: [id number] Acct: [id number] Name: KENYATTA CARRILLO Rep #: [id number] : 1960 63 From: Jesus Berger MD Attending Dr: Status: DEP ER Ordering Dr: Dion Mora Date: 06/13/24 Location: ED Sex: F C Admitted: Test Reason : GI BLEED Blood Pressure : */* mmHG Vent. Rate : 74 BPM Atrial Rate : 74 BPM P-R Int : 184 ms QRS Dur : 80 ms QT Int : 598 ms P-R-T Axes : 89 8 135 degrees QTcB Int : 663 ms Critical Test Result: Long QTc Normal sinus rhythm Possible Inferior infarct , age undetermined ST T wave abnormality, consider lateral ischemia Abnormal ECG Confirmed by JESUS BERGER MD ([id number]), map editor FATMATA CONRAD ([id number]) on 06/16/2024 7:05:03 AM Referred By: Confirmed By: JESUS BERGER MD 06/16/24 0705 Date Jesus Berger MD CC: AUTOMOTIVE SALESPERSON-C Dion Mora; Dr. Jose Rodriguez MD; Dr. Naye Sheets MD Signed Normal [facility] Abdomen Single View (Portabl e)on 06-13-2024 Abdomen Single View (Portable) [facility] Imaging Services [address] [place] [address] Abdomen Single View (Portable) MR#: [id number] Acct: [id number] Name: KENYATTA CARRILLO Rep #: [id number] : 1960 F 63 From: Trevor Hernandez MD PCP: Dr. Naye Sheets MD Status: REG ER Study: Abdomen Single View (Portable) Date of Exam: 0 06/13/24 Exam# [id number] Ordering Dr: Jose Rodriguez MD PROCEDURE: ABDOMEN SINGLE VIEW (PORTABLE) REASON FOR EXAM: Enteric tube TECHNIQUE: Single view abdomen. COMPARISON: None FINDINGS: Nonspecific nonobstructive bowel gas pattern. Enteric tube courses below the left hemidiaphragm coursing to the slight right side of the hemiabdomen suggesting placement within the proximal small bowel. No free air. RAD/Abdomen Single View (Portable) IMPRESSION: As above. Reading [facility] CC: Dr. Jose Rodriguez MD; Dr. Naye Sheets MD Lab Scientist: Signed Normal [facility] Absolute neutrophil countOrd ered By: Dion Mora on 06-13-2024 Neutrophils (Bld) [#/Vol] 8.2 10*3/uL High 2.0-7.7 [facility] Activated partial thrombopla stin time (aPTT) in platelet poor plasma by coagulation aOrdered By: Dion Mora on 06-13-2024 aPTT Coag (Bld) [Time] 51.7 s High 24.1-36.2 [facility] Comment on above: Performed By: #### L 300.4310, L501.4020, M200.1000, L100.0100, L500.4050, L503.6005, L300.3900, L501.3620 ####[facility] [address] [place], [address] Albumin to globulin ratioOrd ered By: Dion Mora on 06-13-2024 Albumin/Globulin [Mass ratio] 0.4 {ratio} Low 0.9-2.4 [facility] Alcohol, Blood (Medical)-Ser umon 06-13-2024 SERUM ETOH < 3.0 Normal [facility] Comment on above: Result Comment: The serum:whole blood ethanol ratio is approximately 1.14 and varies slightly with hematocrit. Medical Alcohol reference interval and critical value in non-tolerant individuals; 50 - 100 Impairment 100 Intoxication 100 - 250 Severe Poisoning 250 - 400 Deep/possible fatal coma Performed By: #### L 503.5510, L503.6005 #### [facility] [address] [place], [address] Ammoniaon 06-13-2024 Ammonia (P) [Mass/Vol] ug/dL Low [facility] Comment on above: Performed By: #### L 503.5510, L503.6005 #### [facility] [address] [place], [address] Arterial patency Wrist arter y --pre arterial punctureOrdered By: Jose Rodriguez on 06-13-2024 Malena Test Positive [facility] BRCon 06-13-2024 RC Normal [facility] Comment on above: Result Comment: [id number] ON RC TRANSFUSED 06/13/242055 [id number] OP RC TRANSFUSED 06/13/242320 Performed By: #### B RC ####[facility] [address] [place], [place], [address] Result Comment: [id number] OP RC TRANSFUSED 06/13/24 2209 Performed By: #### L 503.5510, [id number] #### [facility] [address] [place], [place], [address] Base excess Calc (BldV) [Mol es/Vol]Ordered By: Jose Rodriguez on 06-13-2024 Blood Gas Base Excess -27 mmol/L Low -2-2 [facility] Basophil percentageOrdered B y: Dion Mora on 06-13-2024 Basophils/100 WBC (Bld) 0.2 % 0-1 [facility] Bilirubin Test strip Ql (U)O rdered By: Dion Mora on 06-13-2024 Bilirubin Ql (U) 6 mg/dL High Negative [facility] Comment on above: COLOR OF URINE MAY A FFECT DIPSTICK RESULTS. Bilirubin, totalOrdered By: Dion Mora on 06-13-2024 Bilirubin [Mass/Vol] 3.10 mg/dL High 0.20-1.00 [facility] Comment on above: For patients on eltr ombopag therapy, use of Dimension [place] TBIL is not recommended. [facility] [place] TEST Positive Normal [facility] Comment on above: Performed By: #### L 300.4310, L501.4020, M200.1000, L100.0100, L500.4050, L503.6005, L300.3900, L501.3620 #### [facility] [address] [place], [address] Base excess Calc (Bld) [Moles/Vol] -27 mmol/L Low -2 to +2 [facility] Comment on above: Performed By: #### L 300.4310, L501.4020, M200.1000, L100.0100, L500.4050, L503.6005, L300.3900, L501.3620 #### [facility] [address] [place], [address] Blood Gas Type ART Normal [facility] Comment on above: Performed By: #### L 300.4310, L501.4020, M200.1000, L100.0100, L500.4050, L503.6005, L300.3900, L501.3620 #### [facility] [address] [place], [address] CO2 [Moles/Vol] 13 mmol/L Normal [facility] Comment on above: Performed By: #### L 300.4310, L501.4020, M200.1000, L100.0100, L500.4050, L503.6005, L300.3900, L501.3620 #### [facility] [address] [place], [address] FI02 100.0 Normal [facility] Comment on above: Performed By: #### L 300.4310, L501.4020, M200.1000, L100.0100, L500.4050, L503.6005, L300.3900, L501.3620 #### [facility] [address] [place], [address] HCO3 (Bld) [Moles/Vol] 10.0 mmol/L Low 22-26 [facility] Comment on above: Performed By: #### L 300.4310, L501.4020, M200.1000, L100.0100, L500.4050, L503.6005, L300.3900, L501.3620 #### [facility] [address] [place], [address] Mode AC Normal [facility] Comment on above: Performed By: #### L 300.4310, L501.4020, M200.1000, L100.0100, L500.4050, L503.6005, L300.3900, L501.3620 #### [facility] [address] [place], [address] O2 Delivery Dev Adult Vent Normal [facility] Comment on above: Performed By: #### L 300.4310, L501.4020, M200.1000, L100.0100, L500.4050, L503.6005, L300.3900, L501.3620 #### [facility] [address] [place], [address] pCO2 86.4 mmHg Invalid Interpretation Code 35-45 [facility] Comment on above: Performed By: #### L 300.4310, L501.4020, M200.1000, L100.0100, L500.4050, L503.6005, L300.3900, L501.3620 #### [facility] [address] [place], [address] PEEP 5 Normal [facility] Comment on above: Performed By: #### L 300.4310, L501.4020, M200.1000, L100.0100, L500.4050, L503.6005, L300.3900, L501.3620 #### [facility] [address] [place], [address] pH (Bld) 6.67 [pH] Invalid Interpretation Code 7.35-7.45 [facility] Comment on above: Performed By: #### L 300.4310, L501.4020, M200.1000, L100.0100, L500.4050, L503.6005, L300.3900, L501.3620 #### [facility] [address] [place], [address] PO2 54 mmHG Low 75-100 [facility] Comment on above: Performed By: #### L 300.4310, L501.4020, M200.1000, L100.0100, L500.4050, L503.6005, L300.3900, L501.3620 #### [facility] [address] [place], [address] Read Back By Yes Normal [facility] Comment on above: Performed By: #### L 300.4310, L501.4020, M200.1000, L100.0100, L500.4050, L503.6005, L300.3900, L501.3620 #### [facility] [address] [place], [address] Results To reodica [facility] Comment on above: Performed By: #### L 300.4310, L501.4020, M200.1000, L100.0100, L500.4050, L503.6005, L300.3900, L501.3620 #### [facility] [address] [place], [address] [address] [facility] Comment on above: Performed By: #### L 300.4310, L501.4020, M200.1000, L100.0100, L500.4050, L503.6005, L300.3900, L501.3620 #### [facility] [address] [place], [address] SITE L Radial [facility] Comment on above: Performed By: #### L 300.4310, L501.4020, M200.1000, L100.0100, L500.4050, L503.6005, L300.3900, L501.3620 #### [facility] [address] [place], [address] SO2 45 Low 95-99 [facility] Comment on above: Performed By: #### L 300.4310, L501.4020, M200.1000, L100.0100, L500.4050, L503.6005, L300.3900, L501.3620 #### [facility] [address] [place], [address] Time Given 22:36:49 [facility] Comment on above: Performed By: #### L 300.4310, L501.4020, M200.1000, L100.0100, L500.4050, L503.6005, L300.3900, L501.3620 #### [facility] [address] [place], [address] Vt 400.0 mL [facility] Comment on above: Performed By: #### L 300.4310, L501.4020, M200.1000, L100.0100, L500.4050, L503.6005, L300.3900, L501.3620 #### [facility] [address] [place], [address] Blood bicarbonate measuremen tOrdered By: Jose Rodriguez on 06-13-2024 Blood Gas Bicarbonate Actual 10.0 mmol/L Low 22-26 [facility] Blood cultureOrdered By: Darleen Mora on 06-13-2024 Bacteria identified Cx Nom (Bld) No growth in 5 days. [facility] Blood urea nitrogen (BUN)/cr eatinine ratioOrdered By: Dion Mora on 06-13-2024 Urea nitrogen/Creatinine [Mass ratio] 8.8 mg/mg Low 10-20 [facility] Brain/Head without Contrasto n 06-13-2024 Brain/Head without Contrast [facility] Imaging Services [address] [place], [place] [address] Brain/Head without Contrast MR#: [id number] Acct: [id number] Name: KENYATTA CARRILLO Rep #: [id number] : 1960 F 63 From: Trevor Hernandez MD PCP: Dr. Naye Sheets MD Status: REG ER Study: Brain/Head without Contrast Date of Exam: 05/16 06/07 Exam# [id number] Ordering Dr: Dion Mora AUTOMOTIVE SALESPERSON-C EXAM: BRAIN/HEAD WITHOUT CONTRAST CLINICAL HISTORY: old with . COMPARISON: None. TECHNIQUE: Noncontrast images of the head with multiplanar reconstructions. Dose reduction techniques were used including intermediate exposure control (AEC),iterative reconstruction technique, and/or mA and/or KV dose adjustments based on patient's size. FINDINGS: CT HEAD FINDINGS: No acute intracranial hemorrhage, mass, mass effect, midline shift or pathologic extra-axial fluid collection. No hydrocephalus. Age- appropriate cerebral volume and white matter. Visualized paranasal sinuses and mastoid air cells are clear. The calvarium is grossly intact. CT/Brain/Head without Contrast IMPRESSION: No CT evidence of acute intracranial pathology. Reading Location: [facility] CC: AUTOMOTIVE SALESPERSONFitz Mora; Dr. Naye Sheets MD Lab Scientist: Signed Normal [facility] CBC W/Diff, Automatedon 05-16 Anisocytosis Ql (Bld) 1+ Normal [facility] Comment on above: Performed By: #### L 300.4310, L501.4020, M200.1000, L100.0100, L500.4050, L503.6005, L300.3900, L501.3620 #### [facility] [address] [place], [address] HYPOCHROMASIA 1+ Normal [facility] Comment on above: Performed By: #### L 300.4310, L501.4020, M200.1000, L100.0100, L500.4050, L503.6005, L300.3900, L501.3620 #### [facility] [address] [place], [address] PLT EST ADEQUATE Normal ADEQ [facility] Comment on above: Performed By: #### L 300.4310, L501.4020, M200.1000, L100.0100, L500.4050, L503.6005, L300.3900, L501.3620 #### [facility] [address] [place], [address] STOMATOCYTE 2+ Normal [facility] Comment on above: Performed By: #### L 300.4310, L501.4020, M200.1000, L100.0100, L500.4050, L503.6005, L300.3900, L501.3620 #### [facility] [address] [place], [address] TARGET CELLS RARE Normal [facility] Comment on above: Performed By: #### L 300.4310, L501.4020, M200.1000, L100.0100, L500.4050, L503.6005, L300.3900, L501.3620 #### [facility] [address] [place], [address] SMEAR COMMENT SCANNED [facility] Comment on above: Performed By: #### L 300.4310, L501.4020, M200.1000, L100.0100, L500.4050, L503.6005, L300.3900, L501.3620 #### [facility] [address] [place], [address] [facility] ([facility]) -------- KENYATTA CARRILLO ([id number]) 1960 F Date Time Provider Department 06/13/24 CHIDI ABAD [facility] During your visit today, we recorded the following information about you: Lorriane Bernardo II, MD 06/19/2024 12:25 AM Signed Critical Care Transport Note Patient Name: Kenyatta Carrillo Service Date: June 13, 2024 Referring Facility: [facility] Accepting Facility: [facility] SUBJECTIVE/CHIEF COMPLAINT: AMS- unable to obtain REASON FOR TRANSPORT: Higher level of critical care services unavailable at sending facility History of Present Illness: The following history is what was known to CCT team at time of given care and summarized through review of available medical records, patient/family interview and from referring physician and nursing report. Kenyatta Carrillo is a 63 year old female with a past medical history significant for ETOH dependence and bipolar disorder. She presented to [facility] for evaluation of AMS and GIB. Her home health nurse came to her house and found her covered in feces and blood with AMS. She was brought to the [facility] ED and found to have a UTI and PNA. While in the ED, the pt multiple episodes of dark red bloody stools and coffee ground emesis. BP 70/30's, lactate 8.6, Hgb 8 with repeat Hgb 6.8, INR 5, K+ 2.4, Mg 0.9. She was given a total of 3 units PRBCs and 4L IVF. She was intubated for airway protection and started on fentanyl. At this time, the physician managing the patient requested transfer to [facility] for tertiary and/or quaternary services unavailable at the referring facility. Patient condition at time of exam was: Acutely ill and critically ill. Due to the unique circumstances of the patient, it was determined that this was the closest, most appropriate facility by referring physician. The physician managing the patient requested the [facility] Critical Care Transport Team transport and treat the patient for the purpose of tertiary care, evaluation, and management of her acute condition(s). Air medical transport was requested to reduce the [id number] time but declined for inclement weather. ROS: Could not obtain due to patient's mental status/critical illness PAST MEDICAL HISTORY: PAST MEDICAL HISTORY Diagnosis Date Alcohol dependence (HCC) Bipolar 1 disorder, depressed (HCC) 80s Colon polyps 07/31/2001 TVA Eating disorder Endometriosis, site unspecified Endometriosis High blood sugar Knee pain Moderate dysplasia of cervix 80's Osteopenia 05/14/2011 PAST SURGICAL HISTORY: PAST SURGICAL HISTORY Procedure Laterality Date CAUTERY CERVIX CRYOCAUTERY INITIAL/REPEAT 1979' COLONOSCOPY 08/05/2002 no polyp COLONOSCOPY AND POLYPECTOMY 07/31/2001 TVA removed COLONOSCOPY FLX DX W/COLLJ SPEC WHEN PFRMD 07/22/2014 Colonoscopy ESOPHAGOGASTRODUODENOSCO PY TRANSORAL DIAGNOSTIC 07/22/2014 EGD HYSTERECTOMY HX 2001 LAVH/BSO KNEE LEFT OP SURGERY 3 surgeries KNEE RIGHT OP SURGERY 5 knee surgeies - last being TKA LAPS ABD PRTMANDOMENTUM DX W/WO SPEC BR/WA SPX Laparoscopy 8-10 of them for endometriosis PAST SURGICAL HISTORY OF 2004 left wrist surgery PAST SURGICAL HISTORY OF Right 2016 ORIF right hip PAST SURGICAL HISTORY OF Right 11/2020 elbow fracture SHOULDER ARTHROSCOPY/SURGERY ALLERGIES: Amoxil [Amoxicillin] SOCIAL HISTORY: Social History Tobacco Use Smoking status: Former Smokeless tobacco: Never Tobacco comments: quit in 2018 Vaping Use Vaping status: Never Used Substance Use Topics Alcohol use: Yes Drug use: No FAMILY HISTORY: FAMILY HISTORY Problem Relation Age of Onset Diabetes Mother Emphysema Mother COPD Mother Cancer Mother throat and met to lung and brain Alcohol/Drug Mother Stroke Mother Heart disease Mother other (lung cancer) Mother other (throat cancer) Mother Cancer Father lung; colon; spinal cancer Colon Cancer Father Alcohol/Drug Father other (lung cancer) Father Heart disease Sister Allergies Maternal Grandmother Emphysema Maternal Grandfather Arthritis Paternal Grandmother Breast Cancer Paternal Grandmother None Sister None Sister HOME MEDICATIONS: omeprazole (PRILOSEC) 20 mg capsule Take 1 capsule by mouth two times a day. 1/2 hr before meal., can empty the capsule into food benzonatate (TESSALON PERLES) 100 mg capsule Take 1 capsule by mouth three times daily as needed. cyanocobalamin 1,000 mcg/mL Inject 1 mL intramuscularly once every month. folic acid 1 mg tablet Take 1 tablet by mouth once daily. magnesium oxide (MAG-OX) 400 mg (241.3 mg magnesium) tablet Take 1 tablet by mouth twice daily. ferrous sulfate 325 mg (65 mg iron) tablet Take 1 tablet by mouth twice daily with meals. Medications Administered by Referring Facility: (more content not included)... Normal [facility] 06-13-2024 [facility] Telephone (ARNIE) -------- KENYATTA CARRILLO ([id number]) 1960 F Date Time Provider Department 06/13/24 DIANNE CABA During your visit today, we recorded the following information about you: Dianne Caba MSW 06/13/2024 11:11 AM Signed José Miguel [facility] left this message in regards to concerns about patient from assisted living home director agency [facility]. Aide noted that they called 911 for patient as patient was having a hard time staying awake and seemed disoriented. Patient declined going to the hospital. José Miguel, noted that she is required to let Dr. Sheets know this information. José Miguel also noted that she let HAYDER Sims know this information. will send note to Dr. Sheets to update him on information. Naye Sheets MD 06/13/2024 12:11 PM Signed Agree. Let patient know I recommend er. Neelam Trimble MA 06/13/2024 1:18 PM Signed Called patient twice with no answer. First time someone picked up and hung up. Second time went to voicemail. Left message advising return call. FREDDIE Rangel Michelle, RN 06/13/2024 3:43 PM Signed Deborah with [facility] is calling for health and safety concern for patient. Care service went to the home of patient and found the patient covered in blood and feces from head to toe. patient was licking feces off of her fingers, patient has dried blood and feces around mouth. While care service was there patient vomited up feces and blood. Care service states that patient is talking to people that are not there and patient is stating she sees them sitting or standing in places. and service called 911 and patient declined to let them in or transport and [facility]PS was notified. At this point patient is still at the home alone at this time. Naye Sheets MD 06/13/2024 4:18 PM Signed Agree with APS. Do we need to do anything more. Dianne Caba, ALESSANDRO 06/13/2024 4:26 PM Signed Do you feel like placing a call to [facility] could assist in getting patient to go to hospital to be checked out? Naye Sheets MD 06/13/2024 4:29 PM Signed Can we try below. See message from Dianne and Dianne Lechuga, DUST MIXER 06/13/2024 4:41 PM Signed Sw spoke with [facility] and was told patient has been pink slipped and is at [facility]. Naye Sheets MD 06/13/2024 5:12 PM Signed noted Allergies As of Date: 06/13/2024 Noted Allergy Reaction AMOXIL (AMOXICILLIN) 11/23/2021 2 - Rash Comments: Face and neck Date Reviewed: 10/13/2022 Reviewed by: Neelam Trimble MA - Fully Assessed Reason for Visit: Patient Update [1234] Prescriptions as of 06/13/2024 - omeprazole (PRILOSEC) 20 mg capsule Take 1 capsule by mouth two times a day. 1/2 hr before meal., can empty the capsule into food - benzonatate (TESSALON PERLES) 100 mg capsule Take 1 capsule by mouth three times daily as needed. - cyanocobalamin 1,000 mcg/mL Inject 1 mL intramuscularly once every month. - folic acid 1 mg tablet Take 1 tablet by mouth once daily. - magnesium oxide (MAG-OX) 400 mg (241.3 mg magnesium) tablet Take 1 tablet by mouth twice daily. - ferrous sulfate 325 mg (65 mg iron) tablet Take 1 tablet by mouth twice daily with meals. Problem List As Of Date 06/13/2024 Noted Resolved Arthritis of knee [M17.10] 01/03/2011 Urgency of urination [R39.15] 01/13/2011 Female stress incontinence [N39.3] 01/13/2011 Urge incontinence [N39.41] 01/13/2011 Moderate dysplasia of cervix [N87.1] 01/13/2011 Symptomatic menopausal or female climacteric st*01/13/2011 Postmenopausal atrophic vaginitis [N95.2] 01/13/2011 Primary localized osteoarthrosis, lower leg [M1*01/31/2011 Abnormality of gait [R26.9] 04/20/2011 Knee pain [M25.569] 04/20/2011 Bipolar 1 disorder, mixed [F31.60] 08/23/2012 Tubular adenoma of colon [D12.6] 08/23/2012 Loose body in elbow joint [M24.029] 11/18/2012 Pain in joint, shoulder region [M25.519] 02/23/2014 Unspecified arthropathy, shoulder region [M19.0*02/23/2014 Fracture of femur, intertrochanteric, right, cl*10/19/2015 06/29/2016 Displaced intertrochanteric fracture of right f*10/19/2015 06/29/2016 Hypothyroidism [E03.9] 06/29/2016 Vitamin D deficiency [E55.9] 06/29/2016 Aseptic necrosis of bone of hip, right (HCC) [M*06/06/2018 06/28/2018 Traumatic arthritis of hip, 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 Normal [facility] CPK Total, Creatine Kinaseon 06-13-2024 CPK TOTAL 80 U/L Normal 26-192 [facility] Comment on above: Order Comment: 'TROP ' Serial specimen #1, #2 or #3: 1 Performed By: #### L 300.4310, L501.4020, M200.1000, L100.0100, L500.4050, L503.6005, L300.3900, L501.3620 #### [facility] [address] [place], [address] CT Chest, Abd, Pel w/Contras ton 06-13-2024 CT Chest, Abd, Pel w/Contrast [facility] Imaging Services [address] [place] [address] CT Chest, Abd, Pel w/Contrast MR#: [id number] Acct: [id number] Name: KENYATTA CARRILLO Rep #: [id number] : 1960 F 63 From: Trevor Hernandez MD PCP: Dr. Naye Sheets MD Status: REG ER Study: CT Chest, Abd, Pel w/Contrast Date of Exam: Exam# [id number] Ordering Dr: Dion Mora AUTOMOTIVE SALESPERSON-C PROCEDURE: CT CHEST, ABD, PEL W/CONTRAST REASON FOR EXAM: Pain TECHNIQUE: Chest CTA with intravenous contrast and 3D reconstructions. Abdomen and pelvis CT using the same contrast dose. CONTRAST: COMPARISON: None. FINDINGS: CHEST: Lines and tubes: None. Mediastinum: No evidence of mediastinal hemorrhage. Heart: Normal heart size. No pericardial effusion. Calcified mediastinal nodes particularly in the AP window suggestive of prior granulomatous disease. Thoracic Aorta: No evidence of acute traumatic aortic injury. Lungs and Airways: Patchy left base opacities commonly atelectasis unless pneumonia is of clinical concern. Pleura: No pleural effusion. No pneumothorax. Bones: No acute osseous abnormality identified. ABDOMEN AND PELVIS: Liver: Severe hepatomegaly and hepatic steatosis.. Gallbladder: Punctate stones are seen. Spleen: Granulomatous changes. Pancreas: Dystrophic calcification seen at the head of the pancreas, may reflect chronic pancreatitis.. Adrenals: Unremarkable. Kidneys: Unremarkable. Bladder: Unremarkable. Reproductive Organs: Unremarkable. Bowel: Moderate hiatal hernia. Contrast is noted in the large bowel extending throughout its entirety with minimal opacification of the distal small bowel. No obstruction.. Vasculature: Major vascular structures are unremarkable. Peritoneum / Retroperitoneum: No free fluid. No free air. Bones: No acute osseous abnormality identified. CT/CT Chest, Abd, Pel w/Contrast IMPRESSION: Patchy left base opacities commonly atelectasis unless pneumonia is of clinical concern. Cholelithiasis. Severe hepatomegaly and steatosis. Nonspecific dystrophic calcification at the head of the pancreas. Correlate for chronic pancreatitis. Clinical and imaging surveillance is advised. One or more dose reduction techniques were used (e.g., Automated exposure control, adjustment of the mA and/or kV according to patient size, use of iterative reconstruction technique). Reading Location: [facility] CC: BENI Mora; Dr. Naye Sheets MD Lab Scientist: Signed Normal [facility] Carbon dioxide measurementOr dered By: Dion Mora on 06-13-2024 CO2 [Moles/Vol] 31.0 mmol/L 21.0-32.0 [facility] Chest 1 View (Portable)on Chest 1 View (Portable) [facility] Imaging Services [address] [place] [id number] Chest 1 View (Portable) MR#: [id number] Acct: [id number] Name: KENYATTA CARRILLO Rep #: [id number] : 1960 F 63 From: Trevor Hernandez MD PCP: Dr. Naye Sheets MD Status: REG ER Study: Chest 1 View (Portable) Date of Exam: 06/13/24 Exam# [id number] Ordering Dr: Jose Rodriguez MD PROCEDURE: CHEST 1 VIEW (PORTABLE) REASON FOR EXAM: Cough TECHNIQUE: Single frontal image including the chest and abdomen. COMPARISON: Reviewed. FINDINGS: Interval placement of an endotracheal tube with the distal tip projecting approximately 4.5 cm above the cora, as well as an enteric tube coursing below the left hemidiaphragm outside of the field of view. Calcified hilar nodes are again seen. New minimal patchy airspace opacities at the left base are nonspecific. No pneumothorax. RAD/Chest 1 View (Portable) IMPRESSION: As above. Reading Location: [facility] CC: Dr. Jose Rodriguez MD; Dr. Naye Sheets MD Lab Scientist: Signed Normal [facility] Chloride measurementOrdered By: Dion Mora on 06-13-2024 Chloride [Moles/Vol] 85 mmol/L Low 98-107 [facility] Comprehensive Metabolic Prof ilon 06-13-2024 Albumin [Mass/Vol] 1.6 g/dL Low 3.2-5.0 [facility] Comment on above: Order Comment: 'TROP ' Serial specimen #1, #2 or #3: 1 Performed By: #### L 300.4310, L501.4020, M200.1000, L100.0100, L500.4050, L503.6005, L300.3900, L501.3620 #### [facility] [address] [place], [address] Albumin/Globulin [Mass ratio] 0.4 {ratio} Low 0.9-2.4 [facility] Comment on above: Order Comment: 'TROP ' Serial specimen #1, #2 or #3: 1 Performed By: #### L 300.4310, L501.4020, M200.1000, L100.0100, L500.4050, L503.6005, L300.3900, L501.3620 #### [facility] [address] [place], [address] ALK P 328 U/L High 45-117 [facility] Comment on above: Order Comment: 'TROP ' Serial specimen #1, #2 or #3: 1 Performed By: #### L 300.4310, L501.4020, M200.1000, L100.0100, L500.4050, L503.6005, L300.3900, L501.3620 #### [facility] [address] [place], [address] ALT [Catalytic activity/Vol] 26 U/L Normal 13-56 [facility] Comment on above: Order Comment: 'TROP ' Serial specimen #1, #2 or #3: 1 Performed By: #### L 300.4310, L501.4020, M200.1000, L100.0100, L500.4050, L503.6005, L300.3900, L501.3620 #### [facility] [address] [place], [address] AST [Catalytic activity/Vol] 85 U/L High 15-37 [facility] Comment on above: Order Comment: 'TROP ' Serial specimen #1, #2 or #3: 1 Performed By: #### L 300.4310, L501.4020, M200.1000, L100.0100, L500.4050, L503.6005, L300.3900, L501.3620 #### [facility] [address] [place], [address] Bilirubin [Mass/Vol] 3.10 mg/dL High 0.20-1.00 [facility] Comment on above: Order Comment: 'TROP ' Serial specimen #1, #2 or #3: 1 Result Comment: For patients on eltrombopag therapy, use of Dimension [place] TBIL is not recommended. Performed By: #### L 300.4310, L501.4020, M200.1000, L100.0100, L500.4050, L503.6005, L300.3900, L501.3620 #### [facility] [address] [place], [address] BUN/CRE 8.8 RATIO Low 10-20 [facility] Comment on above: Order Comment: 'TROP ' Serial specimen #1, #2 or #3: 1 Performed By: #### L 300.4310, L501.4020, M200.1000, L100.0100, L500.4050, L503.6005, L300.3900, L501.3620 #### [facility] [address] [place], [address] CA,Total 9.8 mg/dL Normal 8.5-10.1 [facility] Comment on above: Order Comment: 'TROP ' Serial specimen #1, #2 or #3: 1 Performed By: #### L 300.4310, L501.4020, M200.1000, L100.0100, L500.4050, L503.6005, L300.3900, L501.3620 #### [facility] [address] [place], [address] Chloride [Moles/Vol] 85 mmol/L Low 98-107 [facility] Comment on above: Order Comment: 'TROP ' Serial specimen #1, #2 or #3: 1 Performed By: #### L 300.4310, L501.4020, M200.1000, L100.0100, L500.4050, L503.6005, L300.3900, L501.3620 #### [facility] [address] [place], [address] CO2 [Moles/Vol] 31.0 mmol/L Normal 21.0-32.0 [facility] Comment on above: Order Comment: 'TROP ' Serial specimen #1, #2 or #3: 1 Performed By: #### L 300.4310, L501.4020, M200.1000, L100.0100, L500.4050, L503.6005, L300.3900, L501.3620 #### [facility] [address] [place], [address] Creatinine [Mass/Vol] 2.73 mg/dL High 0.55-1.02 [facility] Comment on above: Order Comment: 'TROP ' Serial specimen #1, #2 or #3: 1 Result Comment: The validity of the calculated GFR GFRAA in patients over 70 years has not been determined. Clinical correlation is essential. Performed By: #### L 300.4310, L501.4020, M200.1000, L100.0100, L500.4050, L503.6005, L300.3900, L501.3620 #### [facility] [address] [place], [address] ECRCL 23.71 ml/min Normal [facility] Comment on above: Order Comment: 'TROP ' Serial specimen #1, #2 or #3: 1 Performed By: #### L 300.4310, L501.4020, M200.1000, L100.0100, L500.4050, L503.6005, L300.3900, L501.3620 #### [facility] [address] [place], [address] EST GFR - AA 22 mL/min Low >60 [facility] Comment on above: Order Comment: 'TROP ' Serial specimen #1, #2 or #3: 1 Result Comment: Afri can [place] GFR Calc Performed By: #### L 300.4310, L501.4020, M200.1000, L100.0100, L500.4050, L503.6005, L300.3900, L501.3620 #### [facility] [address] [place], [address] GAP 17 High 5-15 [facility] Comment on above: Order Comment: 'TROP ' Serial specimen #1, #2 or #3: 1 Performed By: #### L 300.4310, L501.4020, M200.1000, L100.0100, L500.4050, L503.6005, L300.3900, L501.3620 #### [facility] [address] [place], [address] GFR/1.73 sq M.predicted among non-blacks MDRD (S/P/Bld) [Vol rate/Area] 19 mL/min/{1.73_m2} Low >60 [facility] Comment on above: Order Comment: 'TROP ' Serial specimen #1, #2 or #3: 1 Result Comment: Non- GFR Calc Performed By: #### L 300.4310, L501.4020, M200.1000, L100.0100, L500.4050, L503.6005, L300.3900, L501.3620 #### [facility] [address] [place], [address] Globulin (S) [Mass/Vol] 3.8 g/dL Normal 2.2-4.2 [facility] Comment on above: Order Comment: 'TROP ' Serial specimen #1, #2 or #3: 1 Performed By: #### L 300.4310, L501.4020, M200.1000, L100.0100, L500.4050, L503.6005, L300.3900, L501.3620 #### [facility] [address] [place], [address] Glucose [Mass/Vol] 97 mg/dL Normal 74-106 [facility] Comment on above: Order Comment: 'TROP ' Serial specimen #1, #2 or #3: 1 Performed By: #### L 300.4310, L501.4020, M200.1000, L100.0100, L500.4050, L503.6005, L300.3900, L501.3620 #### [facility] [address] [place], [address] Potassium [Moles/Vol] 2.4 mmol/L Invalid Interpretation Code 3.5-5.1 [facility] [facility] Comment on above: Order Comment: 'TROP ' Serial specimen #1, #2 or #3: 1 Result Comment: Beatriz ical Result(s) Called at: 17:10:56 06/13/2024 by: Antoinette Mejia to Singh. Results read back by same. Performed By: #### L 300.4310, L501.4020, M200.1000, L100.0100, L500.4050, L503.6005, L300.3900, L501.3620 #### [facility] [address] [place], [address] Sodium [Moles/Vol] 133 mmol/L Low 136-145 [facility] Comment on above: Order Comment: 'TROP ' Serial specimen #1, #2 or #3: 1 Performed By: #### L 300.4310, L501.4020, M200.1000, L100.0100, L500.4050, L503.6005, L300.3900, L501.3620 #### [facility] [address] [place], [place], [id number] (037) T PROT 5.4 g/dL Low 6.4-8.2 [facility] Comment on above: Order Comment: 'TROP ' Serial specimen #1, #2 or #3: 1 Performed By: #### L 300.4310, L501.4020, M200.1000, L100.0100, L500.4050, L503.6005, L300.3900, L501.3620 #### [facility] [address] [place], [address] Urea nitrogen [Mass/Vol] 24 mg/dL High 7-18 [facility] Comment on above: Order Comment: 'TROP ' Serial specimen #1, #2 or #3: 1 Performed By: #### L 300.4310, L501.4020, M200.1000, L100.0100, L500.4050, L503.6005, L300.3900, L501.3620 #### [facility] [address] [place], [address] Determination of fraction of inspired oxygenOrdered By: Jose Rodriguez on 06-13-2024 Blood Gas Oxygen Percent 100.0 [facility] Emergency Department Summary on 06-13-2024 Emergency Department Summary [facility] Medical Records Department [address] [place] [address] Emergency Department Summary 06/13/24 MR#: [id number] Acct: [id number] Name: KENYATTA CARRILLO Rep #: [id number] : 1960 63 From: Jose Rodriguez MD PCP: Dr. Naye Sheets MD Status:REG ER Location: ED ADDENDUM by Dr. Marty Chun MD on 06/14/24 at 0030 Patient checked out to me. After 2 units of blood and 4 L of fluid, patient's blood pressure is 70/54. I ordered another unit of trauma blood is there is still small amount of dark blood coming out of the NGT. Also respiratory presented me with her ABG which was very concerning, showing a severe mixed respiratory and metabolic acidosis with a pH of 6.67. Therefore we increased both the patient's respiratory rate from 18 to 22 and her tidal volume. I was not able to reassess an ABG prior to ground transport arriving to assess and take her, whether was not amenable to flying so we had to wait for a MICU ground unit. 06/14/24 003 Cosigner Signature (if applicable): 06/13/24 2144 cc: Dr. Naye Sheets MD * Signed HPI History of Present Illness Chief Complaint: GI Bleed Narrative Narrative: Patient is a 63-year-old female with history of anemia, alcohol abuse, bipolar who presents to the emergency department after the home health nurse noticed that the patient had stool all around her, stool on her face, was vomiting black as well as some dark tarry stool. Patient is pale, obvious signs of neglect. When speaking with the patient, she does know where she is at, she states she still does drink alcohol for not every day. She denies any specific pain. Pay states she has had some vomiting over the last couple days. Denies any fever or chills. [facility] Medical History Alcohol abuse Anemia Bipolar disorder Former smoker GERD (gastroesophageal reflux disease) GI bleed Hypothyroidism Injury of head and neck Kidney stones Osteoporosis Restless legs Ulcer Home Medications ???Medication ???Instructions ???Recorded ???Last Taken ???Type pantoprazole 40 mg tablet,delayed 20 mg PO BID GERD 04/08/19 Unknow n History release ferrous sulfate 325 mg (65 mg 325 mg PO BID Check with primary 0 06/11/22 Unknown History iron) tablet (FeroSul) doctor apixaban 5 mg tablet (Eliquis) 2.5 mg (1/2 x 5 mg) PO BID #60 tab s 06/16/22 Unknown Rx ascorbic acid (vitamin C) 500 mg 500 mg PO BID #60 tabs 06/16/22 Un known Rx tablet (Vitamin C) cephalexin 500 mg capsule 500 mg PO Q8H #21 caps 11/24/22 Un known Rx Allergy/AdvReac Type Severity Reaction Status Date / Time No Known Allergies Allergy Verified 06/13/24 15:45 Surgical History H/O total hysterectomy History of right hip replacement Social History Smoking Status: Smoker, status unknown tobacco type: cigarettes ROS ROS ED ROS Narrative Secondary to the patient having slight confusion, not answering questions appropriately, review of symptoms cannot be completed EXAM Physical Exam Narrative Exam Narrative: Vital signs reviewed. Patient on initial arrival was covered in feces. Patient had a plastic bag in the diaper. Stool is dark in color. Patient has a pale appearance. Patient initial blood pressure was 68/56, pulse respiratory rate temp and oxygen saturation was within normal limits. Patient did seem to be alert and orient x 2. However is unable to describe what is going on. HEET: Head normocephalic atraumatic, TMs clear bilaterally. Posterior pharynx is clear, dry mucous membranes, patient does have some dark residue around her lips. This could be secondary to the dark vomit. Nares clear bilaterally. Neck: Supple with no lymphadenopathy or tenderness. No signs of meningismus. Cardiac: Regular rate and rhythm no murmurs gallops or rubs, equal peripheral pulses bilaterally. Respiratory: Lungs clear to auscultation bilaterally. No chest tenderness. Abdomen: Soft, nontender, nondistended. No abdominal bruit or pulsatile masses. No hepatosplenomegaly. No peritoneal signs. Extremities: No peripheral edema, no signs of gross trauma or deformity. Active full range of motion of all extremities. Neuro: Cranial nerves II through XII intact, no focal neurological deficits. Skin: Clean dry and intact with no rash, purpura, petechiae, vesicles or pustules. Patient's skin is pale in appearance. Patient does have some abrasions, wounds from the tightness of the plastic bag as a diaper. Backs/flank: No CVA tenderness, no midline spinal tenderness, no deformity. Psych: Normal mood and affect. No SI, HI or acute psychosis. Rectal: Rectal exam was completed with female nurse chap (more content not included)... Normal [facility] Eosinophil percentageOrdered By: Dion Mora on 06-13-2024 Eosinophils/100 WBC (Bld) 0.8 % 0-5 [facility] Epithelial cells.squamous LM Ql (Urine sed)Ordered By: Dion Mora on 06-13-2024 Epithelial cells.squamous LM.HPF (Urine sed) [#/Area] 0 /[HPF] 5-10 [facility] Erythrocyte distribution wid th (RBC) [Ratio]Ordered By: Dion Mora on 06-13-2024 Erythrocyte distribution width (RBC) [Entitic vol] 74.2 fL High 35.1-43.9 [facility] Erythrocyte distribution wid th ratioOrdered By: Dion Mora on 06-13-2024 Erythrocyte distribution width (RBC) [Ratio] 20.9 % High 11.6-14.6 [facility] Estimated glomerular filtrat ion rate (GFR) AmericanOrdered By: Dion Mora on 06-13-2024 Estimated GFR (MDRD) Amer 22 mL/min Low >60 [facility] Comment on above: GFR Calc Estimation of creatinine dilcia aranceOrdered By: Dion Mora on 06-13-2024 Estimated Creatinine Clearance Calc 23.71 ml/min [facility] Glomerular filtration rate ( GFR) estimationOrdered By: Dion Mora on 06-13-2024 Estimated GFR (MDRD) Non-Af Amer 19 mL/min Low >60 [facility] Comment on above: Non- GFR Calc Glucose Ql (U)Ordered By: Cristiano Mora on 06-13-2024 Urine Glucose (UA) Normal mg/dl Normal [facility] Glucose measurementOrdered B y: Dion Mora on 06-13-2024 Glucose [Mass/Vol] 97 mg/dL 74-106 [facility] HH, Hemoglobin AND Hematocri ton 06-13-2024 Hematocrit (Bld) [Volume fraction] 22.3 % Low 37-47 [facility] Comment on above: Performed By: #### L 300.4310, L501.4020, M200.1000, L100.0100, L500.4050, L503.6005, L300.3900, L501.3620 #### [facility] [address] [place], [address] (709) Hemoglobin (Bld) [Mass/Vol] 6.8 g/dL Low 12.0-15.0 [facility] Comment on above: Performed By: #### L 300.4310, L501.4020, M200.1000, L100.0100, L500.4050, L503.6005, L300.3900, L501.3620 #### [facility] [address] [facility] [place], [address] (399) Hematocrit Auto (Bld) [Volum e fraction]Ordered By: Dion Mora on 06-13-2024 Hematocrit (Bld) [Volume fraction] 22.3 % Low 37-47 [facility] Hemoglobin measurementOrdere d By: Dion Mora on 06-13-2024 Hemoglobin (Bld) [Mass/Vol] 6.8 g/dL Low 12.0-15.0 [facility] Hypochromia Ql (Bld)Ordered By: Dino Mora on 06-13-2024 Hypochromasia 1+ [facility] Immature granulocytes/100 WB C Auto (Bld)Ordered By: Dion Mora on 06-13-2024 Immature granulocytes/100 WBC (Bld) 0.500 % 0.0-0.9 [facility] Comment on above: IG% - Immature Granu locytes (promyelocytes, myelocytes and metamyelocytes) > 1% indicates that a LEFT SHIFT is Present. Influenza virus A and B and SARS-CoV-2 (COVID-19) and Respiratory syncytial virus RNAOrdered By: Dion Mora on 06-13-2024 SARS-CoV-2 (COVID-19) RNA TONIO+probe Ql (Unsp spec) [facility] normalized rat io (INR) calculationOrdered By: Dion Mora on 06-13-2024 INR Coag (Bld) [Relative time] 5.0 {INR} High [facility] Comment on above: RESULTS CALLED TO Lyndsey HERNANDEZ 06/13/24 1722 Barbara Campos.REPORT READ BACK BY . SAME Ketones Test strip Ql (U)Ord ered By: Dion Mora on 06-13-2024 Ketones Ql (U) 5 mg/dl High Negative [facility] L501.4020on 06-13-2024 TROPONIN-I HS 33 pg/mL Normal 3.0-54.0 [facility] Comment on above: Order Comment: 'TROP ' Serial specimen #1, #2 or #3: 1 Result Comment: Saroj jimenez Note: New Test Units and Gender Specific Reference Ranges. For more information see Policy Stat Procedure [facility] High Sensitivity Troponin (TNIH) and attachments. Performed By: #### L 300.4310, L501.4020, M200.1000, L100.0100, L500.4050, L503.6005, L300.3900, L501.3620 #### [facility] [address] [place], [address] Laboratory - Chemistry and C hemistry - challengeOrdered By: Dion Mora on 06-13-2024 AST [Catalytic activity/Vol] 85 U/L High 15-37 [facility] - Hematology and Cell countsOrdered By: Dion Mora on 06-13-2024 Anisocytosis Ql (Bld) 1+ [facility] Lactic Acidon 06-13-2024 Lactate [Moles/Vol] 8.6 mmol/L Invalid Interpretation Code 0.4-1.9 [facility] Comment on above: Order Comment: Y Result Comment: Crit ical Result(s) Called at: 20:47:30 06/13/2024 by: Antoinette Mejia to Dion Mora. Results read back by same. Performed By: #### L 503.5510, L503.6005 #### [facility] [address] [place], [place], [id number] Lactate [Moles/Vol] 8.6 mmol/L Invalid Interpretation Code 0.4-1.9 [facility] Comment on above: Order Comment: Y Result Comment: Crit ical Result(s) Called at: 18:22:50 06/13/2024 by: Antoinette Mejia to [facility]. Results read back by same. Performed By: #### L 300.4310, L501.4020, M200.1000, L100.0100, L500.4050, L503.6005, L300.3900, L501.3620 ####[facility] [address] [place], [place], [id number] Lactic acid measurementOrder ed By: Dion Mora on 06-13-2024 Lactate [Moles/Vol] 8.6 mmol/L High 0.4-2.0 [facility] Comment on above: Critical Result(s) C alled at: 20:47:30 06/13/2024 by: Antoinette Mejia to Dion Mora. Results read back by same. Lower GI hemoglobin IA Ql (S tl)Ordered By: Dion Mora on 06-13-2024 Stool Occult Blood (NOAH) [facility] Lymphocytes Auto (Unsp spec) [#/Vol]Ordered By: Dion Mora on 06-13-2024 Lymphocytes (Bld) [#/Vol] 2.46 10*3/uL 0.83-4.51 [facility] Lymphocytes/100 WBC Auto (Un sp spec)Ordered By: Dion Mora on 06-13-2024 Lymphocytes/100 WBC (Bld) 20.9 % 19-41 [facility] M100.678on 06-13-2024 M100.678 Pending SARS-CoV-2 (COVID 19) Negative INFLUENZA A Negative INFLUENZA B Negative RSV PCR Negative Normal [facility] Comment on above: Performed By: #### L 300.4310, L501.4020, M200.1000, L100.0100, L500.4050, L503.6005, L300.3900, L501.3620 #### [facility] [address] [place], [address] MCV (mean corpuscular volume ) determinationOrdered By: Dion Mora on 06-13-2024 MCV (RBC) [Entitic vol] 97.4 fL 81-99 [facility] Magnesiumon 06-13-2024 Magnesium [Mass/Vol] 0.9 mg/dL Invalid Interpretation Code 1.6-2.6 [facility] Comment on above: Result Comment: Crit ical Result(s) Called at: 19:00:03 06/13/2024 by: Antoinette Mejia to Singh. Results read back by same. Performed By: #### L 503.5510, L503.6005 #### [facility] [address] [place], [address] Magnesium measurementOrdered By: Dion Mora on 06-13-2024 Magnesium [Mass/Vol] 0.9 mg/dL Low 1.6-2.6 [facility] Comment on above: Critical Result(s) C alled at: 19:00:03 06/13/2024 by: Antoinette Winters. Results read back by same. Manual differential comment Tate (Bld) [Interp]Ordered By: Dion Mora on 06-13-2024 Differential Comment SCANNED [facility] Mean corpuscular hemoglobin (MCH) determinationOrdered By: Dion Mora on 06-13-2024 MCH (RBC) [Entitic mass] 29.5 pg 27.0-32.0 [facility] Mean corpuscular hemoglobin concentration (MCHC) determinationOrdered By: Dion Mora on 06-13-2024 MCHC (RBC) [Mass/Vol] 30.3 g/dL Low 32-36 [facility] Mean platelet volume determi nationOrdered By: Dion Mora on 06-13-2024 Platelet mean volume (Bld) [Entitic vol] 10.6 fL 6.2-12.0 [facility] Methadone, urineOrdered By: Dion Mora on 06-13-2024 Urine Methadone Screen Negative < 300 ng/mL [facility] Microscopic analysis of urin e for red blood cells (RBC)Ordered By: Dion Mora on 06-13-2024 Urine RBC 0-5 SEEN /hpf 0-5 [facility] Monocyte percentageOrdered B y: Dion Mora on 06-13-2024 Monocytes/100 WBC (Bld) 8.2 % 0-10 [facility] Mucus LM Ql (Urine sed)Order ed By: Dion Mora on 06-13-2024 Mucus Ql (Urine sed) 0 SEEN /hpf [facility] Neutrophil percentageOrdered By: Dion Mora on 06-13-2024 Neutrophils/100 WBC (Bld) 69.4 % 47-70 [facility] Nitrite Test strip Ql (U)Ord ered By: Dion Mora on 06-13-2024 Nitrite Ql (U) Positive High Negative [facility] No Panel InformationOrdered By: Jose Rodriguez on 06-13-2024 Bedside Blood Gas PEEP 5 [facility] Bld Gas Crit Called To/Read Back By Yes [facility] Blood Gas Notified Time 22:36:49 [facility] Blood Gas Notified Conrad rodriguez [facility] Blood Gas Respiration Rate 18 [facility] Blood Gas Sample Site L Radial [facility] Blood Gas Specimen Type ART [facility] Blood Gas Tidal Volume 400.0 mL [facility] Blood Gas Vent Mode AC Woost [facility] Oxygen Delivery Device Adult Vent [facility] No Panel InformationOrdered By: Dion Mora on 06-13-2024 Urine Drug Screen Comment [facility] Comment on above: CONFIRMATORY TESTING FOR ALL POSITIVE URINE DRUG SCREENRESULTS WILL ONLY BE SENT OUT UPON PHYSICIAN ORDER. VISTA Urine Drug Screen methods provide only preliminaryanalytical test results. A more specific alternate chemicalmethod must be used in order to obtain a confirmedanalytical result. Gas chromatography/mass spectrometery(GC/MS) is the preferred confirmatory method. Clinicalconsideration and professional judgement should be appliedto any drug of abuse test result, particularly whenpreliminary positive results are used. URINE TCA TESTING MUST BE ORDERED SEPARATELY. USE TESTMNEMONIC: [facility] Nucleated red blood cell per centageOrdered By: Dion Mora on 06-13-2024 Nucleated RBC/100 WBC (Bld) [Ratio] 0.6 % 0-5 [facility] Oxygen saturation measuremen tOrdered By: Jose Rodriguez on 06-13-2024 Blood Gas Oxygen Saturation 45 % Low 95-99 [facility] Partial pressure of carbon d ioxide measurementOrdered By: Jose Rodriguez on 06-13-2024 Arterial Blood Partial Pressure CO2 86.4 mmHg High 35-45 [facility] Partial pressure of oxygen m easurementOrdered By: Jose Rodriguez on 06-13-2024 Arterial Blood Partial Pressure O2 54 mmHG Low 75-100 [facility] Platelet countOrdered By: Cristiano ul Isha on 06-13-2024 Platelets (Bld) [#/Vol] 147 10*3/uL Low 150-450 [facility] Platelets LM Ql (Bld)Ordered By: Dion Mora on 06-13-2024 Platelet Estimate ADEQUATE ADEQ [facility] Potassium measurementOrdered By: Dion Mora on 06-13-2024 Potassium [Moles/Vol] 2.4 mmol/L Low 3.5-5.1 [facility] Comment on above: Critical Result(s) C alled at: 17:10:56 06/13/2024 by: Antoinette Wintres. Results read back by same. Protein Test strip Ql (U)Ord ered By: Dion Mora on 06-13-2024 Protein Ql (U) 30 mg/dl High Negative [facility] Prothrombin Time w/INRon INR Coag (PPP) [Relative time] 5.0 {INR} Invalid Interpretation Code [facility] Comment on above: Result Comment: RESU LTS CALLED TO GUNJAN 06/13/24 1722 Barbara Campos. REPORT READ BACK BY . SAME Performed By: #### L 300.4310, L501.4020, M200.1000, L100.0100, L500.4050, L503.6005, L300.3900, L501.3620 #### [facility] [address] [place], [place], [id number] (782) PT Coag (PPP) [Time] 47.5 s High 11.7-14.9 [facility] Comment on above: Performed By: #### L 300.4310, L501.4020, M200.1000, L100.0100, L500.4050, L503.6005, L300.3900, L501.3620 #### [facility] [address] [place], [place], [id number] Prothrombin timeOrdered By: Dion Mora on 06-13-2024 PT Coag (PPP) [Time] 47.5 s High 11.7-14.9 [facility] Quantitative urine opiates m easurementOrdered By: Dion Mora on 06-13-2024 Opiates Ql (U) Negative < 300 ng/mL [facility] RBC Auto (Bld) [#/Vol]Ordere d By: Dion Mora on 06-13-2024 RBC (Bld) [#/Vol] 2.71 10*6/uL Low 4.2-5.4 [facility] Serum anion gap measurementO rdered By: Dion Mora on 06-13-2024 Anion gap [Moles/Vol] 17 mmol/L High 5-15 [facility] Serum ethanol measurementOrd ered By: Dion Mora on 06-13-2024 Ethyl Alcohol Level < 3.0 mg/dL [facility] Comment on above: The serum:whole bloo d ethanol ratio is approximately 1.14and varies slightly with hematocrit. Medical Alcohol reference interval and critical value innon-tolerant individuals; 50 - 100 Impairment 100 Intoxication 100 - 250 Severe Poisoning 250 - 400 Deep/possible fatal coma Serum globulin measurementOr dered By: Dion Mora on 06-13-2024 Globulin (S) [Mass/Vol] 3.8 g/dL 2.2-4.2 [facility] Serum or plasma alanine araiza otransferase (ALT) measurementOrdered By: Dion Mora on 06-13-2024 ALT [Catalytic activity/Vol] 26 U/L 13-56 [facility] Serum or plasma albumin abida urement (mass/volume)Ordered By: Dion Mora on 06-13-2024 Albumin [Mass/Vol] 1.6 g/dL Low 3.2-5.0 [facility] Serum or plasma alkaline desi sphatase measurementOrdered By: Dion Mora on 06-13-2024 ALP [Catalytic activity/Vol] 328 U/L High 45-117 [facility] Serum or plasma calcium abida urement (mass/volume)Ordered By: Dion Mora on 06-13-2024 Calcium [Mass/Vol] 9.8 mg/dL 8.5-10.1 [facility] Serum or plasma creatinine m easurement (mass/volume)Ordered By: Dion Mora on 06-13-2024 Creatinine [Mass/Vol] 2.73 mg/dL High 0.55-1.02 [facility] Comment on above: The validity of the calculated GFR & GFRAA in patients over 70 years has not been determined. Clinical correlation is essential. Serum or plasma urea nitroge n measurement (mass/volume)Ordered By: Dion Mora on 06-13-2024 Urea nitrogen [Mass/Vol] 24 mg/dL High 7-18 [facility] Sodium levelOrdered By: Dion Mora on 06-13-2024 Sodium [Moles/Vol] 133 mmol/L Low 136-145 [facility] Stomatocytes LM Ql (Bld)Orde red By: Dion Mora on 06-13-2024 Stomatocytes 2+ [facility] Stool Occult Blood iFOBon STOB Negative Normal [facility] Comment on above: Performed By: #### L 503.5510, L503.6005 #### [facility] [place], [address] Target cells LM Ql (Bld)Orde red By: Dion Mora on 06-13-2024 Target Cells RARE [facility] Total carbon dioxide measure mentOrdered By: Jose Rodriguez on 06-13-2024 Blood Gas Total CO2 13 mmol/L [facility] Total creatine kinase measur ementOrdered By: Dion Mora on 06-13-2024 CK [Catalytic activity/Vol] 80 U/L 26-192 [facility] Total proteinOrdered By: Darleen Mora on 06-13-2024 Protein [Mass/Vol] 5.4 g/dL Low 6.4-8.2 [facility] Troponin IOrdered By: Dion moreno on 06-13-2024 Troponin I High Sensitivity 33 pg/mL 3.0-54.0 [facility] Comment on above: Please Note: New Franci t Units and Gender Specific Reference Ranges. For more information see Policy Stat Procedure [facility] High Sensitivity Troponin (TNIH) and attachments. Type AND Screenon 06-13-2024 Ab SCREEN GEL Negative Normal [facility] Comment on above: Order Comment: NWMACEY BARRAZAA Performed By: #### L 503.5510, L503.6005 #### [facility] [address] [place], [place], [id number] A1 CELL Not performed [facility] Comment on above: Order Comment: HGI Result Comment: This specimen has been REJECTED due to Laboratory criteria: MisLabelled. ZAKIYA FREEDMAN has been notified of need of recollection. 06/13/242047 Genna Lollo Performed By: #### L 503.5510, L503.6005 #### [facility] [address] [place], [address] Ab SCREEN GEL Not performed Normal [facility] Comment on above: Order Comment: HGI Result Comment: This specimen has been REJECTED due to Laboratory criteria: MisLabelled. ZAKIYA FREEDMAN has been notified of need of recollection. 06/13/242047 Genna Lollo Performed By: #### L 503.5510, L503.6005 #### [facility] [address] [place], [address] ABO and Rh group Nom (Bld) Test Not Performed Normal [facility] Comment on above: Order Comment: HGI Result Comment: This specimen has been REJECTED due to Laboratory criteria: MisLabelled. ZAKIYA FREEDMAN has been notified of need of recollection. 06/13/242047 Genna Lollo Performed By: #### L 503.5510, L503.6005 #### [facility] [address] [place], [address] ANTI A Not performed Normal [facility] Comment on above: Order Comment: HGI Result Comment: This specimen has been REJECTED due to Laboratory criteria: MisLabelled. ZAKIYA FREEDMAN has been notified of need of recollection. 06/13/242047 Genna Lollo Performed By: #### L 503.5510, L503.6005 #### [facility] [address] [place], [address] ANTI B Not performed Normal [facility] Comment on above: Order Comment: HGI Result Comment: This specimen has been REJECTED due to Laboratory criteria: MisLabelled. ZAKIYA FREEDMAN has been notified of need of recollection. 06/13/242047 Genna Lollo Performed By: #### L 503.5510, L503.6005 #### [facility] [address] [place], [address] ANTI D Not performed Normal [facility] Comment on above: Order Comment: HGI Result Comment: This specimen has been REJECTED due to Laboratory criteria: MisLabelled. ZAKIYA FREEDMAN has been notified of need of recollection. 06/13/242047 Genna Lollo Performed By: #### L 503.5510, L503.6005 #### [facility] [address] [place], [address] B CELLS Not performed Normal [facility] Comment on above: Order Comment: HGI Result Comment: This specimen has been REJECTED due to Laboratory criteria: MisLabelled. ZAKIYA FREEDMAN has been notified of need of recollection. 06/13/242047 Genna Liang Performed By: #### L 503.5510, L503.6005 #### [facility] [address] [place], [address] Urinalysis, Completeon 06-13 BACTERIA 2+ /hpf Normal None Seen [facility] Comment on above: Order Comment: 'TROP ' Serial specimen #1, #2 or #3: 1 Performed By: #### L 300.4310, L501.4020, M200.1000, L100.0100, L500.4050, L503.6005, L300.3900, L501.3620 #### [facility] [address] [place], [address] RBC 0-5 SEEN Normal 0-5 [facility] Comment on above: Order Comment: 'TROP ' Serial specimen #1, #2 or #3: 1 Performed By: #### L 300.4310, L501.4020, M200.1000, L100.0100, L500.4050, L503.6005, L300.3900, L501.3620 #### [facility] [address] [place], [place], [address] WBC 5-10 SEEN Normal 0-5 [facility] Comment on above: Order Comment: 'TROP ' Serial specimen #1, #2 or #3: 1 Performed By: #### L 300.4310, L501.4020, M200.1000, L100.0100, L500.4050, L503.6005, L300.3900, L501.3620 #### [facility] [address] [place], [address] EPI,SQUAMOUS 0 SEEN Normal 5-10 [facility] Comment on above: Order Comment: 'TROP ' Serial specimen #1, #2 or #3: 1 Performed By: #### L 300.4310, L501.4020, M200.1000, L100.0100, L500.4050, L503.6005, L300.3900, L501.3620 #### [facility] [address] [place], [address] Mucus Ql (Urine sed) 0 SEEN Normal [facility] Comment on above: Order Comment: 'TROP ' Serial specimen #1, #2 or #3: 1 Performed By: #### L 300.4310, L501.4020, M200.1000, L100.0100, L500.4050, L503.6005, L300.3900, L501.3620 #### [facility] [address] [place], [address] Urine Drug Screen (VISTA)on 06-13-2024 AMPHETAMINES Negative Normal <1000 ng/mL [facility] Comment on above: Performed By: #### L 503.5510, L503.6005 #### [facility] [address] [place], [address] BARBITIURATES Negative Normal < 200 ng/mL [facility] Comment on above: Performed By: #### L 503.5510, L503.6005 #### [facility] [address] [place], [address] BENZODIAZIPINE Negative Normal < 200 ng/mL [facility] Comment on above: Performed By: #### L 503.5510, L503.6005 #### [facility] [address] [place], [address] COCAINE Negative Normal < 300 ng/mL [facility] Comment on above: Performed By: #### L 503.5510, L503.6005 #### [facility] [address] [place], [address] ECSTACY Negative Normal < 500 ng/mL [facility] Comment on above: Performed By: #### L 503.5510, L503.6005 #### [facility] [address] [place],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 depressed, mi*11/23/2020 Diagnosed: 05/22/2023 Chronic constipation [K59.09] 05/22/2023 Diagnosed: 05/22/2023 Dysphagia [R13.10] 05/22/2023 Diagnosed: 05/22/2023 Endometriosis of other specified sites [N80.8] 05/22/2023 Diagnosed: 05/22/2023 Fracture dislocation of hip joint (HCC) [S72.00*05/22/2023 Diagnosed: 05/22/2023 Fracture of neck of femur (HCC) [S72.009A] 06/16/2022 Diagnosed: 05/22/2023 Gastroesophageal reflux disease [K21.9] 05/22/2023 Diagnosed: 05/22/2023 History of alcohol abuse [F10.11] 05/22/2023 Diagnosed: 05/22/2023 History of manic depressive disorder [Z86.59] 06/16/2022 Diagnosed: 05/22/2023 History of osteoarthritis [Z87.39] 05/22/2023 Diagnosed: 05/22/2023 History of disease [Z87.898] 05/22/2023 Diagnosed: 05/22/2023 Hypokalemia [E87.6] 06/16/2022 Diagnosed: 05/22/2023 Insomnia [G47.00] 08/13/2001 Diagnosed: 05/22/2023 Loss of consciousness (HCC) [R40.20] 05/22/2023 Diagnosed: 05/22/2023 Major depressive disorder, recurrent, unspecifi*11/23/2020 Diagnosed: 05/22/2023 Nausea with vomiting [R11.2] 08/13/2001 Diagnosed: 05/22/2023 Osteopenia [M85.80] 05/22/2023 Diagnosed: 05/22/2023 Alcoholism (HCC) [F10.20] 05/22/2023 Diagnosed: 05/22/2023 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] 11/09/2003 Diagnosed: 05/22/2023 Other anxiety states [F41.1] 05/22/2023 Diagnosed: 05/22/2023 Other malaise [R53.81] 11/22/2020 Diagnosed: 05/22/2023 Other physical therapy [YYH5520] 02/02/2003 Diagnosed: 05/22/2023 Pain in right hip [M25.551] 11/23/2020 Diagnosed: 05/22/2023 Polyp of colon [K63.5] 05/22/2023 Diagnosed: 05/22/2023 Tear of medial cartilage or meniscus of knee, c*08/08/2002 Diagnosed: 05/22/2023 Unsteadiness on feet [R26.81] 01/14/2021 Diagnosed: 05/22/2023 Encounter Status:Closed by LISETH LOCKWOOD on 02/11/24 [facility] Som 01-24-2024 DEONDREN Telephone (ARNIE) -------- KENYATTA CARRILLO ([id number]) 1960 F Date Time Provider Department 01/24/24 DIANNE CABAAmor During your visit today, we recorded the following information about you: Dianne Caba MSW 01/24/2024 2:48 PM Addendum Sw received call from Wali Martínez [place], [facility]. José Miguel notes that she visited patient and is having a chore service go out today for deep clean for clutter. José Miguel also noted that patient toilet has not been working for some time and has been going to bathroom on couch and feces and urine were going on couch and floor. Patient did allow deep clean chore service to clean rugs on floor.José Miguel notes that patient has been using bed liners to place on furniture to catch feces and urine. Patient though is declining cleaning company to clean couch. José Miguel notes that she has located a assisted living home director agency. Working with patient to see if she will allow assisted living home director agency to start service. José Miguel also notes that she did call HAYDER Sims to let her know of concern regarding laying in own waste and self neglect. Dylan asked josé miguel if patient has guardian. José Miguel notes that she is not aware of patient having guardian. Dylan will forward note to Dr. Sheets to update him on above information. Sw unsure if patient has a current guardian, there is mention in tab of guardian, will need to explore that more in depth to see if that is still accurate. Patient looks to have not had any recent appts with Dr. Sheets, will see what Dr. Sheets has to say about appointment need. José Miguel [facility] ph. [phone]. Dylan did speak with HAYDER Sims to make sure that she received message from HAYDER Martínez in regards to above. Levi notes that yes, she is aware of patient lack of self care. Naye Sheets MD 01/24/2024 2:02 PM Signed May need to consider seeing one of us. I have never talked with a guardian Liseth Lockwood LPN 01/25/2024 8:34 AM Signed Patient often cancels or does not come to scheduled visits. She is often hard to reach also. Dianne Caba, [employer] 01/25/2024 8:42 AM Signed Dylan does note on 12/02 and 10/01 where MA's tried to reach out schedule appt and have not been able to reach patient by phone and My Chart to schedule appt. This Sw did verify with HYADER Sims that she received message from [facility] regarding patient self neglect. Is there anything further at this time you feel we need to do for patient? Naye Sheets MD 01/25/2024 9:30 AM Signed I think if aps is involved that is the big thing. If they think her home situation is bad enough can consider er for evaluation for intermediate teacher care. Kimberly Sanchez RN 02/13/2024 1:37 PM Signed Claudine from [employer] calls and states that she went out to see patient. Patient sits in one spot all day and urinates all over self. Patient's house is disgusting and dirty. Patient throws used pads all over floor. Claudine states that there is no active APS out on patient. KYLIE Hancock Erin, [employer] 02/14/2024 11:10 AM Signed Dylan will forward message to Dr. Sheets to update. Sw did speak with HAYDER Sims on 01/25/24 and she had noted that she received referral for patient and was aware of concerns noted by José Miguel, [facility] below. APS then makes their determination on visiting patient and if they screen patient in for services. Naye Sheets MD 02/14/2024 1:56 PM Signed Thank you. She did not keep her appt with me this week also Dianne Caba, [employer] 02/14/2024 3:20 PM Signed HAYDER Sims is aware of living conditions. Discussed that patient has chore services that were in to see patient a few weeks ago. Levi notes that patient chooses to live this way and the only thought she has is concern for patient frequent urination. Patient has been a no show for Dr. Sheets and ALLY Hager appts this week so unsure as to what else could be done for patient at this time. HAYDRE made documentation of patient living condition concerns. Allergies As of Date: 01/24/2024 Noted Allergy Reaction AMOXIL (AMOXICILLIN) 11/23/2021 2 - Rash Comments: Face and neck Date Reviewed: 10/13/2022 Reviewed by: Neelam Trimble MA - Fully Assessed Reason for Visit: Patient Update [1234] Prescriptions as of 02/14/2024 - omeprazole (PRILOSEC) 20 mg capsule Take 1 capsule by mouth two times a day. 1/2 hr before meal., can empty the capsule into food - benzonatate (TESSALON PERLES) 100 mg capsule Take 1 capsule by mouth three times daily as needed. - cyanocobalamin 1,000 mcg/mL Inject 1 mL intramuscularly once every month. - folic acid 1 mg tablet Take 1 tablet by mouth once daily. - magnesium oxide (MAG-OX) 400 mg (241.3 mg magnesium) tablet Take 1 tablet by mouth twice daily. - ferrous sulfate 325 mg (65 mg iron) tablet Take 1 tablet by mouth twice daily with meals. Problem List A (more content not included)... Normal [facility] XR Chest PA and Lateralon IMPRESSION: No acute radiographic abnormality. Lab Scientist: PSCB Transcribe Date/Time: Oct 16 2022 10:28A Dictated by : TUSHAR JENKINS MD This examination was interpreted and the report reviewed and electronically signed by: TUSHAR JENKINS MD on Oct 16 2022 10:28AM [facility] DIVISION OF RADIOLOGY * * *Final Report* * * DATE OF EXAM: Oct 13 2022 10:06AM WOX 5291 - XR CHEST 2V FRONTAL/LAT / PROCEDURE REASON: Bronchitis * * * * Physician Interpretation * * * * EXAMINATION: CHEST RADIOGRAPH (2 VIEW FRONTAL & LATERAL) CLINICAL HISTORY: Bronchitis MQ: XC2_6 EXAM DATE/TIME: 10/13/2022 10:06 AM COMPARISON: No relevant prior studies available. RESULT: Lines, tubes, and devices: None. Lungs and pleura: No consolidation. No lung mass. No pleural effusion. No pneumothorax. Cardiomediastinal silhouette: Normal cardiomediastinal silhouette. Bones and soft tissues: Unremarkable. DIVISION OF RADIOLOGY Provider, [facility] Dot [facility]lin - 10/16/2022 * * *Final Report* * * DATE OF EXAM: Oct 13 2022 10:06AM WOX 5291 - XR CHEST 2V FRONTAL/LAT / PROCEDURE REASON: Bronchitis * * * * Physician Interpretation * * * * EXAMINATION: CHEST RADIOGRAPH (2 VIEW FRONTAL & LATERAL) CLINICAL HISTORY: Bronchitis MQ: XC2_6 EXAM DATE/TIME: 10/13/2022 10:06 AM COMPARISON: No relevant prior studies available. RESULT: Lines, tubes, and devices: None. Lungs and pleura: No consolidation. No lung mass. No pleural effusion. No pneumothorax. Cardiomediastinal silhouette: Normal cardiomediastinal silhouette. Bones and soft tissues: Unremarkable. IMPRESSION IMPRESSION: No acute radiographic abnormality. Lab Scientist: REMY Transcribe Date/Time: Oct 16 2022 10:28A Dictated by : TUSHAR JENKINS MD This examination was interpreted and the report reviewed and electronically signed by: TUSHAR JENKINS MD on Oct 16 2022 10:28AM EST [facility] XR Chest PA and LateralOrder ed By: Ccf Provider on 10-16-2022 [facility] XR Chest PA and Lateralon Radiology Study observation (narrative) [facility] US EXT MASS/FLUID COLLECTION LTon 08-22-2022 US EXT MASS/FLUID COLLECTION LT * * *Final Report* * * DATE OF EXAM: Aug 22 2022 3:50PM CASEY 1024 - US EXT MASS/FLUID COLLECTION LT / PROCEDURE REASON: R22.32-Arm mass, left * * * * Physician Interpretation * * * * History: Left arm mass FINDINGS/ IMPRESSION: Directed ultrasound examination over patient directed area of lump in the left upper arm has been performed. No underlying abnormality is seen. Lab Scientist: PSCB Transcribe Date/Time: Aug 23 2022 9:40A Dictated by : TUSHAR JENKINS MD This examination was interpreted and the report reviewed and electronically signed by: TUSHAR JENKINS MD on Aug 23 2022 9:41AM EST [id number] [facility] US EXTREMITY MASS/FLUID HUSAM ECTION LEFTon 08-22-2022 [facility] XR Shoulder - left 3 Viewson 08-14-2022 IMPRESSION: Moderate glenohumeral osteoarthritis. Widening of the acromioclavicular interval, a finding which may reflect the sequela of prior ligamentous injury. Lab Scientist: REMY Transcribe Date/Time: Aug 14 2022 4:04P Dictated by : KAREN WOODS MD This examination was interpreted and the report reviewed and electronically signed by: KAREN WOODS MD on Aug 14 2022 4:05PM [facility] DIVISION OF RADIOLOGY * * *Final Report* * * DATE OF EXAM: Aug 11 2022 10:58AM WOX 5252 - XR SHLDR >/=3V AP/DAISY AP/OTHR LT / PROCEDURE REASON: Acute pain of left shoulder * * * * Physician Interpretation * * * * TITLE: XR SHLDR >/=3V AP/DAISY AP/OTHR LT CLINICAL INDICATION: Shoulder pain TECHNIQUE: 3 view radiographic study of the left shoulder COMPARISON: None FINDINGS: No acute fracture identified. Moderate glenohumeral joint space narrowing with inferior marginal osteophyte formation. Widening of the acromial clavicular interval which measures 9 mm. Calcified left mediastinal lymph nodes compatible with the sequela of prior granulomatous exposure. DIVISION OF RADIOLOGY Provider, [facility] - 08/14/2022 * * *Final Report* * * DATE OF EXAM: Aug 11 2022 10:58AM WOX 5252 - XR SHLDR >/=3V AP/DAISY AP/OTHR LT / PROCEDURE REASON: Acute pain of left shoulder * * * * Physician Interpretation * * * * TITLE: XR SHLDR >/=3V AP/DAISY AP/OTHR LT CLINICAL INDICATION: Shoulder pain TECHNIQUE: 3 view radiographic study of the left shoulder COMPARISON: None FINDINGS: No acute fracture identified. Moderate glenohumeral joint space narrowing with inferior marginal osteophyte formation. Widening of the acromial clavicular interval which measures 9 mm. Calcified left mediastinal lymph nodes compatible with the sequela of prior granulomatous exposure. IMPRESSION IMPRESSION: Moderate glenohumeral osteoarthritis. Widening of the acromioclavicular interval, a finding which may reflect the sequela of prior ligamentous injury. Lab Scientist: REMY Transcribe Date/Time: Aug 14 2022 4:04P Dictated by : KAREN WOODS MD This examination was interpreted and the report reviewed and electronically signed by: KAREN WOODS MD on Aug 14 2022 4:05PM EST [facility] XR Elbow - left AP and Later brandon 08-13-2022 IMPRESSION: No acute osseous abnormalities are identified. Lab Scientist: REMY Transcribe Date/Time: Aug 13 2022 7:56P Dictated by : DEVEN PARIS MD This examination was interpreted and the report reviewed and electronically signed by: DEVEN PARIS MD on Aug 13 2022 7:58PM [facility] DIV[facility] OF RADIOLOGY * * *Final Report* * * DATE OF EXAM: Aug 11 2022 10:58AM WOX 5322 - XR ELBOW 2V AP/LAT LT / PROCEDURE REASON: Effusion of left elbow * * * * Physician Interpretation * * * * LEFT ELBOW X-RAY SERIES HISTORY: Effusion of left elbow TECHNIQUE: PA, lateral and oblique views. COMPARISON: None available. RESULT: No fracture, dislocation or destructive changes. Joint spaces and articular surfaces are preserved. DIVISION OF RADIOLOGY Provider, [facility] - 08/13/2022 * * *Final Report* * * DATE OF EXAM: Aug 11 2022 10:58AM WOX 5322 - XR ELBOW 2V AP/LAT LT / PROCEDURE REASON: Effusion of left elbow * * * * Physician Interpretation * * * * LEFT ELBOW X-RAY SERIES HISTORY: Effusion of left elbow TECHNIQUE: PA, lateral and oblique views. COMPARISON: None available. RESULT: No fracture, dislocation or destructive changes. Joint spaces and articular surfaces are preserved. IMPRESSION IMPRESSION: No acute osseous abnormalities are identified. Lab Scientist: PSCB Transcribe Date/Time: Aug 13 2022 7:56P Dictated by : DEVEN PARIS MD This examination was interpreted and the report reviewed and electronically signed by: DEVEN PARIS MD on Aug 13 2022 7:58PM EST [facility] XR Elbow - left AP and Later alOrdered By: Ccf Provider on 08-13-2022 [facility] No Panel Informationon 08-11 Radiology Study observation (narrative) [facility] XR Humerus - left AP and Lat eralon 08-10-2022 IMPRESSION: Osteopenia. No acute osseous abnormality. Suggestion of glenohumeral osteoarthritis and rotator cuff tear. Suspected elbow joint effusion. Dedicated left elbow radiographs may be considered for further evaluation. Lab Scientist: PSCYazmin Transcribe Date/Time: Aug 10 2022 6:10A Dictated by : ROGELIO BARON MD This examination was interpreted and the report reviewed and electronically signed by: ROGELIO BARON MD on Aug 10 2022 6:15AM [facility] RADIOLOGY * * *Final Report* * * DATE OF EXAM: Aug 09 2022 10:41AM WOX 5354 - XR HUMERUS 2V AP/LAT LT / PROCEDURE REASON: Left arm pain * * * * Physician Interpretation * * * * HISTORY: Left arm pain . patient fell few weeks ago? has a lump mid humerus that is tender. TECHNIQUE: XR HUMERUS 2V AP/LAT LT Laterality: LEFT Number of different views (projections): 2 COMPARISON: None RESULT: Osteopenia. No acute fracture or dislocation. Alignment is maintained. Apparent moderate narrowing of the glenohumeral joint space with small marginal osteophytes. Cystlike lucencies of the greater tuberosity and small enthesophytes. Apparent narrowing of the acromiohumeral interval suggestive of a rotator cuff tear. Suspicion of small elbow joint effusion. Soft tissues about the left arm are grossly unremarkable. DIVISION OF RADIOLOGY Provider, [facility] - 08/10/2022 * * *Final Report* * * DATE OF EXAM: Aug 09 2022 10:41AM WOX 5354 - XR HUMERUS 2V AP/LAT LT / PROCEDURE REASON: Left arm pain * * * * Physician Interpretation * * * * HISTORY: Left arm pain . patient fell few weeks ago? has a lump mid humerus that is tender. TECHNIQUE: XR HUMERUS 2V AP/LAT LT Laterality: LEFT Number of different views (projections): 2 COMPARISON: None RESULT: Osteopenia. No acute fracture or dislocation. Alignment is maintained. Apparent moderate narrowing of the glenohumeral joint space with small marginal osteophytes. Cystlike lucencies of the greater tuberosity and small enthesophytes. Apparent narrowing of the acromiohumeral interval suggestive of a rotator cuff tear. Suspicion of small elbow joint effusion. Soft tissues about the left arm are grossly unremarkable. IMPRESSION IMPRESSION: Osteopenia. No acute osseous abnormality. Suggestion of glenohumeral osteoarthritis and rotator cuff tear. Suspected elbow joint effusion. Dedicated left elbow radiographs may be considered for further evaluation. Lab Scientist: PSCB Transcribe Date/Time: Aug 10 2022 6:10A Dictated by : ROGELIO BARON MD This examination was interpreted and the report reviewed and electronically signed by: ROGELIO BARON MD on Aug 10 2022 6:15AM EST [facility] XR Humerus - left AP and Lat eralOrdered By: Ccf Provider on 08-10-2022 [facility] CBC W Auto Differential pane l (Bld)on 08-09-2022 Basophils (Bld) [#/Vol] 0.03 10*3/uL <0.11 k/uL [facility] Basophils/100 WBC (Bld) 0.4 % C [facility] Differential cell count method Nom (Bld) Auto [facility] Eosinophils (Bld) [#/Vol] 0.11 10*3/uL <0.46 k/uL [facility] Eosinophils/100 WBC (Bld) 1.4 % [facility] Erythrocyte distribution width (RBC) [Ratio] 16.3 % High 11.5 - 15.0 % [facility] Hematocrit (Bld) [Volume fraction] 43.4 % 36.0 - 46.0 % [facility] Hemoglobin (Bld) [Mass/Vol] 14.1 g/dL 11.5 - 15.5 g/dL [facility] Immature granulocytes (Bld) [#/Vol] <0.10 k/uL [facility] Immature granulocytes/100 WBC (Bld) 0.2 % [facility] Lymphocytes (Bld) [#/Vol] 3.13 10*3/uL 1.00 - 4.00 k/uL [facility] Lymphocytes/100 WBC (Bld) 38.7 % [facility] MCH (RBC) [Entitic mass] 30.3 pg 26.0 - 34.0 pg [facility] MCHC (RBC) [Mass/Vol] 32.5 g/dL 30.5 - 36.0 g/dL [facility] MCV (RBC) [Entitic vol] 93.3 fL 80.0 - 100.0 fL [facility] Monocytes (Bld) [#/Vol] 0.84 10*3/uL <0.87 k/uL [facility] Monocytes/100 WBC (Bld) 10.4 % C [facility] Neutrophils (Bld) [#/Vol] 3.96 10*3/uL 1.45 - 7.50 k/uL [facility] Neutrophils/100 WBC (Bld) 48.9 % [facility] Nucleated RBC (Bld) [#/Vol] <0.01 k/uL [facility] Nucleated RBC/100 WBC (Bld) [Ratio] 0.0 /100 WBC [facility] Platelet mean volume (Bld) [Entitic vol] 9.8 fL 9.0 - 12.7 fL [facility] Platelets (Bld) [#/Vol] 284 10*3/uL 150 - 400 k/uL [facility] RBC (Bld) [#/Vol] 4.65 10*6/uL 3.90 - 5.2 0 m/uL [facility] WBC (Bld) [#/Vol] 8.09 10*3/uL 3.70 - 11. 00 k/uL [facility] XR Humerus - left AP and Lat eralon 08-09-2022 Radiology Study observation (narrative) [facility] Absolute lymphocyte countOrd ered By: Dr. Roach on 06-16-2022 Lymphocytes Auto (Unsp spec) [#/Vol] 1.75 10*3/uL 0.83-4.51 [facility] Basophil percentageOrdered B y: Dr. Roach on 06-16-2022 Basophils/100 WBC (Bld) 0.3 % 0-1 [facility] Eosinophils/100 WBC (Bld) 1.7 % 0-5 [facility] Neutrophils (Bld) [#/Vol] 3.5 10*3/uL 2.0-7.7 [facility] Neutrophils/100 WBC (Bld) 54.9 % 47-70 [facility] WBC (Bld) [#/Vol] 6.3 10*3/uL 4.4[facility] count (nu mber/volume)Ordered By: Dr. Roach on 06-16-2022 RBC (Bld) [#/Vol] 3.21 10*6/uL 4.2-5.4 [facility] Blood hemoglobin measurement (mass/volume)Ordered By: Dr. Roach on 06-16-2022 Hemoglobin (Bld) [Mass/Vol] 9.1 g/dL 12.0-15.0 [facility] Blood lymphocytes/100 leukoc ytesOrdered By: Dr. Roach on 06-16-2022 Lymphocytes/100 WBC (Bld) 27.8 % 19-41 [facility] Blood manual differential co mment interpretation (narrative result)Ordered By: Dr. Roach on 06-16-2022 Manual differential comment Tate (Bld) [Interp] SCANNED [facility] Blood monocytes/100 leukocyt esOrdered By: Dr. Roach on 06-16-2022 Monocytes/100 WBC (Bld) 14.0 % 0-10 [facility] Blood platelet mean volumeOr dered By: Dr. Roach on 06-16-2022 Platelet mean volume (Bld) [Entitic vol] 9.0 fL 6.2-12.0 [facility] Determination of erythrocyte mean corpuscular volume (MCV)Ordered By: Dr. Roach on 06-16-2022 MCV (RBC) [Entitic vol] 93.1 fL 81-99 [facility] Hematocrit Auto (Bld) [Volum e fraction]Ordered By: Dr. Roach on 06-16-2022 Hematocrit (Bld) [Volume fraction] 29.9 % 37-47 [facility] Hypochromatic red blood cell detectionOrdered By: Dr. Roach on 06-16-2022 Hypochromia Ql (Bld) 1+ [facility] - Hematology and Cell countsOrdered By: Dr. Roach on 06-16-2022 Anisocytosis Ql (Bld) 1+ [facility] Erythrocyte distribution width (RBC) [Entitic vol] 66.3 fL 35.1-43.9 [facility] Erythrocyte distribution width (RBC) [Ratio] 19.4 % 11.6-14.6 [facility] Immature granulocytes/100 WBC (Bld) 1.300 % 0.0-0.9 [facility] Comment on above: IG% - Immature Granu locytes (promyelocytes, myelocytes and metamyelocytes) > 1% indicates that a LEFT SHIFT is Present. MCH (RBC) [Entitic mass] 28.3 pg 27.0-32.0 [facility] Nucleated RBC/100 WBC (Bld) [Ratio] 0 % 0-5 [facility] MCHC Auto (RBC) [Mass/Vol]Or dered By: Dr. Roach on 06-16-2022 MCHC (RBC) [Mass/Vol] 30.4 g/dL 32-36 [facility] Comment on above: Delta: 32.8 on [id number] Platelets bldOrdered By: Dr. Roach on 06-16-2022 Platelets (Bld) [#/Vol] 308 10*3/uL 150-450 [facility] Basophil percentageOrdered B y: Dr. Roach on 06-15-2022 Chloride [Moles/Vol] 108 mmol/L 98-107 [facility] Glucose [Mass/Vol] 96 mg/dL 74-106 [facility] Potassium [Moles/Vol] 5.0 mmol/L 3.5-5.1 [facility] Sodium [Moles/Vol] 137 mmol/L 136-145 [facility] - Chemistry and C hemistry - challengeOrdered By: Dr. Roach on 06-15-2022 CO2 [Moles/Vol] 23.0 mmol/L 21.0-32.0 [facility] [facility] Urea nitrogen/Creatinine [Mass ratio] 23.1 mg/mg 10-20 [facility] Lower GI hemoglobin IA Ql (S tl)Ordered By: Dr. Roach on 06-15-2022 Stool Occult Blood (NOAH) Positive [facility] No Panel InformationOrdered By: Dr. Roach on 06-15-2022 Estimated Creatinine Clearance Calc 69.95 ml/min [facility] Estimated GFR (MDRD) Amer 76 mL/min >60 [facility] Comment on above: GFR Calc Estimated GFR (MDRD) Non-Af Amer 63 mL/min >60 [facility] Comment on above: Non- GFR Calc Serum or plasma calcium abida urement (mass/volume)Ordered By: Dr. Roach on 06-15-2022 Calcium [Mass/Vol] 8.4 mg/dL 8.5-10.1 [facility] Serum or plasma creatinine m easurement (mass/volume)Ordered By: Dr. Roach on 06-15-2022 Creatinine [Mass/Vol] 0.95 mg/dL 0.55-1.02 [facility] Comment on above: The validity of the calculated GFR & GFRAA in patients over 70 years has not been determined. Clinical correlation is essential. Serum or plasma urea nitroge n measurement (mass/volume)Ordered By: Dr. Roach on 06-15-2022 Urea nitrogen [Mass/Vol] 22 mg/dL 7-18 [facility] Thin prep Papanicolaou smear with manual screeningOrdered By: Dr. Roach on 06-15-2022 Thin prep Papanicolaou smear with manual screening 6 5-15 [facility] Thin prep Papanicolaou smear with manual screeningOrdered By: Dr. Roach on 06-14-2022 Thin prep Papanicolaou smear with manual screening 2+ [facility] Laboratory - Chemistry and C hemistry - challengeOrdered By: Dr. Lopez on 06-13-2022 Sodium (U) [Moles/Vol] 5 mmol/L Not Establ. [facility] No Panel InformationOrdered By: Dr. Lopez on 06-13-2022 Urine Potassium 73.0 mmol/L Not Establ. [facility] Thin prep Papanicolaou smear with manual screeningOrdered By: Dr. Lopez on 06-13-2022 Thin prep Papanicolaou smear with manual screening 32 mmol/L Not Establ. [facility] Urine creatinine measurement (mass/volume)Ordered By: Dr. Lopez on 06-13-2022 Creatinine (U) [Mass/Vol] 283.00 mg/dL NO RANGE EST. [facility] - Chemistry and C hemistry - challengeOrdered By: Dr. Lopez on 06-12-2022 Free T4 [Mass/Vol] 1.59 ng/dL 0.76-1.46 [facility] No Panel InformationOrdered By: Dr. Lopez on 06-12-2022 Thyroid Stimulating Hormone (TSH) 3.74 uIU/mL 0.358-3.74 [facility] Basophil percentageOrdered B y: Dr. Lopez on 06-11-2022 Basophil percentage 3.1 mg/dL 2.5-4.9 [facility] INR in Blood by Coagulation assayOrdered By: Dr. Recinos on 06-11-2022 INR Coag (Bld) [Relative time] 1.2 {INR} [facility] - Chemistry and C hemistry - challengeOrdered By: Dr. Lopez on 06-11-2022 Amylase [Catalytic activity/Vol] 7 U/L 5-55 [facility] - CoagulationOrde red By: Dr. Recinos on 06-11-2022 aPTT Coag (Bld) [Time] 27.2 s 24.1-36.2 [facility] PT Coag (PPP) [Time] 15.1 s 11.7-14.9 [facility] No Panel InformationOrdered By: Dr. Recinos on 06-11-2022 Troponin I High Sensitivity 17 pg/mL 3.0-54.0 [facility] Comment on above: Please Note: New Franci t Units and Gender Specific Reference Ranges. For more information see Policy Stat Procedure [place] High Sensitivity Troponin (TNIH) and attachments. Basophil percentageOrdered B y: Dr. Allison on 06-10-2022 Chloride [Moles/Vol] 87 mmol/L 98-107 [facility] Glucose [Mass/Vol] 146 mg/dL 74-106 [facility] Comment on above: Fasting Glucose resu lt greater than or equal to 126 mg/dL suggests DIABETES MELLITUS per A.D.A. criteria. Potassium [Moles/Vol] 2.3 mmol/L 3.5-5.1 [facility] Comment on above: Critical Result(s) C alled at: 16:46:15 06/10/2022 by: KYLIE TORREZ ED. Results read back by same. Sodium [Moles/Vol] 132 mmol/L 136-145 [facility] WBC (Bld) [#/Vol] 13.6 10*3/uL 4.4-11.0 [facility] Blood erythrocytes count (nu mber/volume)Ordered By: Dr. Allison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 #### ALC, GFR #### [place] [address] RBC 3.59 10 6/mcL Low 4.10-5.30 [facility] ([place] Comment on above: Performed By: #### C BC, ADIFF, ANEU, BMP #### [place] [address] #### ALC, GFR #### [place] [address] WBC 2.70 10 3/mcL Low 4.50-10.80 [facility] ([place] Comment on above: Performed By: #### C BCPARIS ANEU, BMP #### [place] [address] #### ALC, GFR #### [address] [address] MGon 11-12-2020 Magnesium [Mass/Vol] 1.5 mg/dL Low 1.6-2.4 [facility] ([place]) Comment on above: Performed By: #### C BCPARIS, ANEU, BMP #### [place] [address] #### ALC, GFR #### [place] [address] .Auto Diffon 11-11-2020 Basophil, Absolute 0.00 10 3/mcL Normal 0.00-0.27 [facility] ([place]) Comment on above: Performed By: #### C BCPARIS, ANEU, BMP #### [place] [address] #### ALC, GFR #### [address] [address] Basophils/100 WBC (Bld) 0.2 % Normal 0.0-2.5 [facility] ([place]) Comment on above: Performed By: #### C BC ADSKY, ANEU, BMP #### [place] [address] #### ALC, GFR #### [address] [address] Eosinophil, Absolute 0.00 10 3/mcL Normal 0.00-0.65 [facility] ([place]) Comment on above: Performed By: #### C BC, ADIFF, ANEU, BMP #### [place] [address] #### ALC, GFR #### [address] [address] Eosinophils/100 WBC (Bld) 1.6 % Normal 0.0-6.0 [facility] ([place]) Comment on above: Performed By: #### C BC, ADIFF, ANEU, BMP #### [address] [address] #### ALC, GFR #### [address] [address] Lymphocyte, Absolute 0.90 10 3/mcL Normal 0.90-4.32 [facility] ([place]) Comment on above: Performed By: #### C BC, ADIFF, ANEU, BMP #### [address] [address] #### ALC, GFR #### [address] [address] Lymphocytes/100 WBC (Bld) 37.7 % Normal 20.0-40.0 [facility] ([place]) Comment on above: Performed By: #### C BC, ADIFF, ANEU, BMP #### [place] [address] #### ALC, GFR #### [address] [address] Monocyte, Absolute 0.20 10 3/mcL Normal 0.09-1.40 [facility] ([place]) Comment on above: Performed By: #### C BC, ADIFF, ANEU, BMP #### [place] [address] #### ALC, GFR #### [address] [address] Monocytes/100 WBC (Bld) 9.1 % Normal 2.0-13.0 [facility] ([place]) Comment on above: Performed By: #### C BC, ADIFF, ANEU, BMP #### [address] [address] #### ALC, GFR #### [address] [address] Neutrophils/100 WBC (Bld) 51.4 % Normal 50.0-75.0 [facility] ([place]) Comment on above: Performed By: #### C BC, ADIFF, ANEU, BMP #### [address] [address] #### ALC, GFR #### [address] [address] .GFRon 11-11-2020 GFR >60 Normal [facility] ([place]) Comment on above: Result Comment: GFR Population mean for , Non- Americans Ages 20-29 = 116 mL/min/1.73 sq.m. Ages 30-39 = 107 mL/min/1.73 sq.m. Ages 40-49 = 99 mL/min/1.73 sq.m. Ages 50-59 = 93 mL/min/1.73 sq.m. Ages 60-69 = 85 mL/min/1.73 sq.m. Ages 70+ = 75 mL/min/1.73 sq.m. Chronic Kidney Disease: Less than 60 mL/min/1.73 square meters End Stage Renal Disease: Less than 15 mL/min/1.73 square meters Performed By: #### C BC, ADIFF, ANEU, BMP #### [address] [address] #### ALC, GFR #### [address] [address] GFR Non- >60 Normal [facility] ([place]) Comment on above: Result Comment: GFR Population mean for , Non- Americans Ages 20-29 = 116 mL/min/1.73 sq.m. Ages 30-39 = 107 mL/min/1.73 sq.m. Ages 40-49 = 99 mL/min/1.73 sq.m. Ages 50-59 = 93 mL/min/1.73 sq.m. Ages 60-69 = 85 mL/min/1.73 sq.m. Ages 70+ = 75 mL/min/1.73 sq.m. Chronic Kidney Disease: Less than 60 mL/min/1.73 square meters End Stage Renal Disease: Less than 15 mL/min/1.73 square meters Performed By: #### C BC, ADIFF, ANEU, BMP #### [address] [address] #### ALC, GFR #### [address] [address] .NEUABSon 11-11-2020 Neutrophil, Absolute 1.30 10 3/mcL Low 2.25-8.10 [facility] ([place]) Comment on above: Performed By: #### C BC, ADIFF, ANEU, BMP #### [place] [address] #### ALC, GFR #### [address] [address] BMPon 11-11-2020 BUN/Creatinine Ratio 8.8 ratio Low 10.0-22.0 [facility] ([place] Comment on above: Performed By: #### C BC, ADIFF, ANEU, BMP #### [place] [address] #### ALC, GFR #### [address] [address] Calcium [Mass/Vol] 8.7 mg/dL Normal 8.7-10.4 [facility] ([place]) Comment on above: Result Comment: No te - New Reference Range in effect 19 Performed By: #### C BC, ADIFF, ANEU, BMP #### [address] [address] #### ALC, GFR #### [address] [address] Chloride [Moles/Vol] 107 mmol/L Normal 98-110 [facility] ([place]) Comment on above: Performed By: #### C BC, ADIFF, ANEU, BMP #### [place] [address] #### ALC, GFR #### [address] [address] CO2 [Moles/Vol] 28 mmol/L Normal 22-32 [facility] ([place] Comment on above: Performed By: #### C BC, ADIFF, ANEU, BMP #### [address] [address] #### ALC, GFR #### [address] [address] Creatinine [Mass/Vol] 0.68 mg/dL Normal 0.50-1.20 [facility] ([place]) Comment on above: Performed By: #### C BC, ADIFF, ANEU, BMP #### [address] [address] #### ALC, GFR #### [address] [address] Electrolyte Balance 4.0 mEq/L Normal 4.0-15.0 [facility] ([place]) Comment on above: Performed By: #### C BC, ADIFF, ANEU, BMP #### [address] [address] #### ALC, GFR #### [address] [address] Glucose [Mass/Vol] 104 mg/dL Normal 82-115 [facility] ([place] Comment on above: Performed By: #### C BC, ADIFF, ANEU, BMP #### [address] [address] #### ALC, GFR #### [address] [address] Potassium [Moles/Vol] 3.4 mmol/L Low 3.5-5.0 [facility] ([place]) Comment on above: Performed By: #### C BC, ADIFF, ANEU, BMP #### [address] [address] #### ALC, GFR #### [address] [address] Sodium [Moles/Vol] 139 mmol/L Normal 136-145 [facility] ([place] Comment on above: Performed By: #### C BC, ADIFF, ANEU, BMP #### [address] [address] #### ALC, GFR #### [place] [id number] Urea nitrogen [Mass/Vol] 6.0 mg/dL Low 8.0-22.0 [facility] ([place] Comment on above: Performed By: #### C PARIS MENA ANEU, BMP #### [place] [address] #### ALC, GFR #### [place] [address] CBCon 11-11-2020 Erythrocyte distribution width (RBC) [Ratio] 17.2 % High 11.5-15.5 [facility] ([place] Comment on above: Performed By: #### C PARIS MENA ANEU, BMP #### [place] [address] #### ALC, GFR #### [place] [address] Hematocrit (Bld) [Volume fraction] 30.7 % Low 34.0-46.0 [facility] ([place] Comment on above: Performed By: #### C BCPARIS ANEU, BMP #### [place] [address] #### ALC, GFR #### [place] [address] Hgb 10.3 G/dL Low 12.0-16.0 [facility] ([place] Comment on above: Performed By: #### C PARIS MENA ANEU, BMP #### [place] [address] #### ALC, GFR #### [place] [address] MCH (RBC) [Entitic mass] 30.4 pg Normal 27.0-33.0 [facility] ([place] Comment on above: Performed By: #### C BC, ADSKY, ANEU, BMP #### [place] [address] #### ALC, GFR #### [place] [address] MCHC 33.6 G/dL Normal 32.0-36.0 [facility] ([place] Comment on above: Performed By: #### C BC, ADIFF, ANEU, BMP #### [place] [address] #### ALC, GFR #### [address] [address] MCV (RBC) [Entitic vol] 90.6 fL Normal 80.0-99.0 [facility] ([place]) Comment on above: Performed By: #### C BC, ADIFF, ANEU, BMP #### [place] [address] #### ALC, GFR #### [place] [address] Platelet 124 10 3/mcL Low 150-450 [facility] ([place] Comment on above: Performed By: #### C BC, ADIFF, ANEU, BMP #### [place] [address] #### ALC, GFR #### [address] [address] Platelet mean volume (Bld) [Entitic vol] 7.2 fL Normal 6.6-10.5 [facility] ([place] Comment on above: Performed By: #### C BC, ADIFF, ANEU, BMP #### [place] [address] #### ALC, GFR #### [place] [address] RBC 3.39 10 6/mcL Low 4.10-5.30 [facility] ([place] Comment on above: Performed By: #### C BC, ADIFF, ANEU, BMP #### [place] [address] #### ALC, GFR #### [address] [address] WBC 2.50 10 3/mcL Low 4.50-10.80 [facility] ([place] Comment on above: Performed By: #### C BC, ADIFF, ANEU, BMP #### [place] [id number] #### ALC, GFR #### [place] [address] FT4on 11-11-2020 Free T4 0.89 mcg/dL Normal 0.89-1.76 [facility] ([place] Comment on above: Result Comment: No te - New Reference Range in effect 19 Performed By: #### C BC, ADIFF, ANEU, BMP #### [place] [address] #### ALC, GFR #### [place] [address] MGon 11-11-2020 Magnesium [Mass/Vol] 1.7 mg/dL Normal 1.6-2.4 [facility] ([place]) Comment on above: Performed By: #### C BC, ADIFF, ANEU, BMP #### [place] [address] #### ALC, GFR #### [place] [address] PROon 11-11-2020 INR Coag (PPP) [Relative time] 1.1 {INR} Normal [facility] ([place]) Comment on above: Result Comment: The [place] [employer] (CHEST, 1992, 102:312S-25S) recommended therapeutic range for oral anticoagulant therapy is: LOW RISK: Prophylaxis of venous thrombosis INR: 2.0-3.0 Treatment of pulmonary embolism 2.0-3.0 Prevention of systemic embolism 2.0-3.0 HIGH RISK: Mechanical prosthetic valves 2.5-3.5 Performed By: #### C BC, ADIFF, ANEU, BMP #### [place] [address] #### ALC, GFR #### [place] [address] PT Coag (PPP) [Time] 12.9 s Normal 9.0-14.8 [facility] ([place]) Comment on above: Result Comment: Effe ctive 11/26/07, Protime results may be affected by some antibiotics (i.e. Ciprofloxacin, Azithromycin, Bactrim) which may potentiate the action of oral anticoagulants, with further increases in Protime/INR. Performed By: #### C BC, PARIS, ANEU, BMP #### Evelyn [address] [place], [place] [address] #### ALC, GFR #### [address] [address] XR ESOPHOGRAM W/ AIRon 11-11 XR ESOPHOGRAM W/ AIR ORIGINAL EXAMINATION: DOUBLE CONTRAST ESOPHAGRAM 11/11/2020 11:34 am TECHNIQUE: Double contrast esophagram was performed with barium and air contrast. FLUOROSCOPY DOSE AND TYPE OR TIME AND EXPOSURES: 2.2 minutes fluoroscopy time, 93.794 mGy dose. 57 total digital images. The procedure was performed by Peggy Bocanegra, Physician Valve Steamer. COMPARISON: None HISTORY: ORDERING SYSTEM PROVIDED HISTORY: Dysphagia Reason for Exam: Dysphagia FINDINGS: Swallowing is unremarkable and there is no tracheal aspiration identified. Esophageal motility appears normal and the esophagus is normal in course. There is no esophageal ulceration or mass identified. There is a small sliding hiatal hernia seen. There is an area of narrowing identified just above the hiatal hernia, and this shows slight mucosal irregularity on air-contrast images. No other focal esophageal lesion is identified. There is mild to moderate gastroesophageal reflux identified during the course of the study. No additional contributory abnormality seen. IMPRESSION: 1. Small sliding hiatal hernia. 2. Mild esophageal narrowing just above the hiatal hernia with slight mucosal irregularity. This suggest Barron's esophagus. Endoscopies E is recommended for follow-up. 3. [id number] gastroesophageal reflux. No evidence for esophagitis. Interpreted by: Jose Larsen MD Preliminary Report By: Jose Larsen MD Electronically signed By Jose Larsen MD Dictated Date: 11/11/2020 11:46:09 AM Prelim Date: 11/11/2020 11:49:10 AM Sign Date: 11/11/2020 11:49:10 AM Ordering Provider: CELESTINE Kimball [facility] ([place]) .Auto Diffon 11-10-2020 Basophil, Absolute 0.00 10 3/mcL Normal 0.00-0.27 [facility] ([place]) Comment on above: Performed By: #### C BC, ADIFF, ANEU, BMP #### [address] [address] #### ALC, GFR #### [address] [address] Basophils/100 WBC (Bld) 0.3 % Normal 0.0-2.5 A [facility] ([place]) Comment on above: Performed By: #### C BC, ADIFF, ANEU, BMP #### [place] [address] #### ALC, GFR #### [address] [address] Eosinophil, Absolute 0.00 10 3/mcL Normal 0.00-0.65 A [facility] ([place]) Comment on above: Performed By: #### C BC, ADIFF, ANEU, BMP #### [place] [address] #### ALC, GFR #### [address] [address] Eosinophils/100 WBC (Bld) 0.0 % Normal 0.0-6.0 [facility] ([place]) Comment on above: Performed By: #### C BC, ADIFF, ANEU, BMP #### [place] [address] #### ALC, GFR #### [address] [address] Lymphocyte, Absolute 0.40 10 3/mcL Low 0.90-4.32 A [facility] ([place]) Comment on above: Performed By: #### C BC, ADIFF, ANEU, BMP #### [place] [address] #### ALC, GFR #### [address] [address] Lymphocytes/100 WBC (Bld) 4.9 % Low 20.0-40.0 [facility] ([place]) Comment on above: Performed By: #### C BC, ADIFF, ANEU, BMP #### [place] [address] #### ALC, GFR #### [address] [address] Monocyte, Absolute 0.70 10 3/mcL Normal 0.09-1.40 [facility] ([place]) Comment on above: Performed By: #### C BC, ADIFF, ANEU, BMP #### [place] [address] #### ALC, GFR #### [address] [address] Monocytes/100 WBC (Bld) 9.0 % Normal 2.0-13.0 [facility] ([place]) Comment on above: Performed By: #### C BC, ADIFF, ANEU, BMP #### [place] [address] #### ALC, GFR #### [address] [address] Neutrophils/100 WBC (Bld) 85.8 % High 50.0-75.0 [facility] ([place]) Comment on above: Performed By: #### C BC, ADIFF, ANEU, BMP #### [place] [address] #### ALC, GFR #### [address] [address] .GFRon 11-10-2020 GFR >60 Normal [facility] ([place]) Comment on above: Result Comment: GFR Population mean for , Non- Americans Ages 20-29 = 116 mL/min/1.73 sq.m. Ages 30-39 = 107 mL/min/1.73 sq.m. Ages 40-49 = 99 mL/min/1.73 sq.m. Ages 50-59 = 93 mL/min/1.73 sq.m. Ages 60-69 = 85 mL/min/1.73 sq.m. Ages 70+ = 75 mL/min/1.73 sq.m. Chronic Kidney Disease: Less than 60 mL/min/1.73 square meters End Stage Renal Disease: Less than 15 mL/min/1.73 square meters Performed By: #### C BC, ADIFF, ANEU, BMP #### [place] [address] #### ALC, GFR #### [place] [address] GFR Non- >60 Normal [facility] ([place]) Comment on above: Result Comment: GFR Population mean for , Non- Americans Ages 20-29 = 116 mL/min/1.73 sq.m. Ages 30-39 = 107 mL/min/1.73 sq.m. Ages 40-49 = 99 mL/min/1.73 sq.m. Ages 50-59 = 93 mL/min/1.73 sq.m. Ages 60-69 = 85 mL/min/1.73 sq.m. Ages 70+ = 75 mL/min/1.73 sq.m. Chronic Kidney Disease: Less than 60 mL/min/1.73 square meters End Stage Renal Disease: Less than 15 mL/min/1.73 square meters Performed By: #### C PARIS MENA ANEU, BMP #### [place] [address] #### ALC, GFR #### [place] [address] .NEUABSon 11-10-2020 Neutrophil, Absolute 6.60 10 3/mcL Normal 2.25-8.10 [facility] ([place]) Comment on above: Performed By: #### C PARIS MENA ANEU, BMP #### [place] [address] #### ALC, GFR #### [place] [address] CAIONon 11-10-2020 Calcium Ionized 1.06 mmol/L Low 1.12-1.32 [facility] ([place]) Comment on above: Performed By: #### C BCPARIS ANEU, BMP #### [place] [address] #### ALC, GFR #### [place] [address] CBCon 11-10-2020 Erythrocyte distribution width (RBC) [Ratio] 17.3 % High 11.5-15.5 [facility] ([place]) Comment on above: Order Comment: Routi ne for 0501 the morning of patient admission. Performed By: #### C BC, ADIFF, ANEU, BMP #### [address] [address] #### ALC, GFR #### [place] [address] Hematocrit (Bld) [Volume fraction] 32.3 % Low 34.0-46.0 [facility] ([place] Comment on above: Order Comment: Routi ne for 0501 the morning of patient admission. Performed By: #### C BC, ADIFF, ANEU, BMP #### [place] [address] #### ALC, GFR #### [place] [address] Hgb 11.0 G/dL Low 12.0-16.0 [facility] ([place] Comment on above: Order Comment: Routi ne for 0501 the morning of patient admission. Performed By: #### C BC, ADIFF, ANEU, BMP #### [place] [address] #### ALC, GFR #### [place] [address] MCH (RBC) [Entitic mass] 30.7 pg Normal 27.0-33.0 [facility] ([place] Comment on above: Order Comment: Routi ne for 0501 the morning of patient admission. Performed By: #### C BC, ADIFF, ANEU, BMP #### [place] [address] #### ALC, GFR #### [place] [address] MCHC 34.1 G/dL Normal 32.0-36.0 [facility] ([place] Comment on above: Order Comment: Routi ne for 0501 the morning of patient admission. Performed By: #### C BC, ADIFF, ANEU, BMP #### [place] [address] #### ALC, GFR #### [place] [id number] MCV (RBC) [Entitic vol] 90.2 fL Normal 80.0-99.0 A [facility] ([place]) Comment on above: Order Comment: Routi ne for 0501 the morning of patient admission. Performed By: #### C BC, ADIFF, ANEU, BMP #### [place] [address] #### ALC, GFR #### [place] [address] Platelet 147 10 3/mcL Low 150-450 [facility] ([place] Comment on above: Order Comment: Routi ne for 0501 the morning of patient admission. Performed By: #### C BC ADSKY, ANEU, BMP #### [place] [address] #### ALC, GFR #### [place] [address] Platelet mean volume (Bld) [Entitic vol] 6.6 fL Normal 6.6-10.5 [facility] ([place]) Comment on above: Order Comment: Routi ne for 0501 the morning of patient admission. Performed By: #### C BCPARIS, ANEU, BMP #### [place] [address] #### ALC, GFR #### [place] [address] RBC 3.59 10 6/mcL Low 4.10-5.30 [facility] ([place] Comment on above: Order Comment: Routi ne for 0501 the morning of patient admission. Performed By: #### C BC, ADSKY, ANEU, BMP #### [place] [address] #### ALC, GFR #### [place] [address] WBC 7.70 10 3/mcL Normal 4.50-10.80 [facility] ([place]) Comment on above: Order Comment: Rasheed hidalgo for 0501 the morning of patient admission. Performed By: #### C BC, ADIFF, ANEU, BMP #### [place] [address] #### ALC, GFR #### [address] [address] CMPon 11-10-2020 BUN/Creatinine Ratio 15.9 ratio Normal 10.0-22.0 [facility] ([place] Comment on above: Performed By: #### C BC, ADIFF, ANEU, BMP #### [place] [address] #### ALC, GFR #### [place] [address] Albumin Level 3.1 G/dL Low 3.2-4.8 [facility] ([place] Comment on above: Performed By: #### C BC, ADIFF, ANEU, BMP #### [place] [address] #### ALC, GFR #### [place] [address] Albumin/Globulin [Mass ratio] 1.0 {ratio} Normal 0.9-1.6 [facility] ([place] Comment on above: Performed By: #### C BC, ADIFF, ANEU, BMP #### [place] [address] #### ALC, GFR #### [place] [address] ALP [Catalytic activity/Vol] 113 U/L Normal 38-126 [facility] ([place] Comment on above: Performed By: #### C BC, ADIFF, ANEU, BMP #### [place] [address] #### ALC, GFR #### [address] [address] ALT [Catalytic activity/Vol] 14 U/L Normal 10-49 [facility] ([place] Comment on above: Performed By: #### C BC, ADIFF, ANEU, BMP #### [place] [address] #### ALC, GFR #### [address] [address] AST [Catalytic activity/Vol] 31 U/L Normal 8-34 [facility] ([place] Comment on above: Performed By: #### C BC, ADIFF, ANEU, BMP #### [place] [address] #### ALC, GFR #### [address] [address] Bili Total 0.70 mg/dL Normal 0.20-1.20 [facility] ([place] Comment on above: Result Comment: Use of this assay is not recommended for patients undergoing treatment with eltrombopag due to the potential for falsely elevated results. Performed By: #### C BC, ADIFF, ANEU, BMP #### [place] [address] #### ALC, GFR #### [address] [address] Calcium [Mass/Vol] 8.5 mg/dL Low 8.7-10.4 [facility] ([place]) Comment on above: Result Comment: No te - New Reference Range in effect 19 Performed By: #### C BC, ADIFF, ANEU, BMP #### [place] [address] #### ALC, GFR #### [address] [address] Chloride [Moles/Vol] 105 mmol/L Normal 98-110 [facility] ([place] Comment on above: Performed By: #### C BC, ADIFF, ANEU, BMP #### [place] [address] #### ALC, GFR #### [address] [address] CO2 [Moles/Vol] 20 mmol/L Low 22-32 [facility] ([place] Comment on above: Performed By: #### C BC, ADIFF, ANEU, BMP #### [address] [address] #### ALC, GFR #### [address] [address] Creatinine [Mass/Vol] 0.63 mg/dL Normal 0.50-1.20 [facility] ([place] Comment on above: Performed By: #### C BC, ADIFF, ANEU, BMP #### [place] [address] #### ALC, GFR #### [address] [address] Electrolyte Balance 12.0 mEq/L Normal 4.0-15.0 [facility] ([place]) Comment on above: Performed By: #### C BC, ADIFF, ANEU, BMP #### [place] [address] #### ALC, GFR #### [place] [address] Globulin 3.0 G/dL Normal 1.5-3.8 [facility] ([place] Comment on above: Performed By: #### C BC, ADIFF, ANEU, BMP #### [place] [address] #### ALC, GFR #### [address] [address] Glucose [Mass/Vol] 160 mg/dL High 82-115 [facility] ([place] Comment on above: Performed By: #### C BC, ADIFF, ANEU, BMP #### [address] [address] #### ALC, GFR #### [address] [address] Potassium [Moles/Vol] 4.3 mmol/L Normal 3.5-5.0 [facility] ([place] Comment on above: Performed By: #### C BC, ADIFF, ANEU, BMP #### [place] [address] #### ALC, GFR #### [address] [address] Sodium [Moles/Vol] 137 mmol/L Normal 136-145 [facility] ([place] Comment on above: Performed By: #### C BC, ADIFF, ANEU, BMP #### [address] [address] #### ALC, GFR #### [place] [address] Total Protein 6.1 G/dL Normal 5.7-8.2 [facility] ([place] Comment on above: Result Comment: No te - New Reference Range in effect 19 Performed By: #### C BC, ADIFF, ANEU, BMP #### [address] [address] #### ALC, GFR #### [address] [address] Urea nitrogen [Mass/Vol] 10.0 mg/dL Normal 8.0-22.0 [facility] ([place] Comment on above: Performed By: #### C BC, ADIFF, ANEU, BMP #### [address] [address] #### ALC, GFR #### [address] [address] HGBon 11-10-2020 Hgb 10.5 G/dL Low 12.0-16.0 [facility] ([place] Comment on above: Performed By: #### C BC, ADIFF, ANEU, BMP #### [address] [address] #### ALC, GFR #### [place] [id number] TSHon 11-10-2020 TSH 0.510 mIU/mL Low 0.550-4.780 [facility] ([place] Comment on above: Result Comment: No te - New Reference Range in effect 19 Performed By: #### C BC, ADIFF, ANEU, BMP #### [place] [address] #### ALC, GFR #### [address] [address] .Auto Diffon 11-09-2020 Basophil, Absolute 0.10 10 3/mcL Normal 0.00-0.19 [facility] ([place] Comment on above: Performed By: #### C BC, ADIFF, ANEU, BMP #### [place] [address] #### ALC, GFR #### [address] [address] Basophils/100 WBC (Bld) 1.0 % Normal 0.0-2.5 A [facility] ([place] Comment on above: Performed By: #### C BC, ADIFF, ANEU, BMP #### [place] [address] #### ALC, GFR #### [place] [address] Eosinophil, Absolute 0.10 10 3/mcL Normal 0.00-0.40 [facility] ([place] Comment on above: Performed By: #### C BC, ADIFF, ANEU, BMP #### [place] [address] #### ALC, GFR #### [address] [address] Eosinophils/100 WBC (Bld) 0.5 % Normal 0.0-7.0 [facility] ([place] Comment on above: Performed By: #### C BC, ADIFF, ANEU, BMP #### [place] [address] #### ALC, GFR #### [address] [address] Lymphocyte, Absolute 3.90 10 3/mcL High 0.77-3.85 [facility] ([place] Comment on above: Performed By: #### C BC, ADIFF, ANEU, BMP #### [place] [address] #### ALC, GFR #### [address] [address] Lymphocytes/100 WBC (Bld) 28.5 % Normal 10.0-50.0 [facility] ([place] Comment on above: Performed By: #### C BC, ADIFF, ANEU, BMP #### [address] [address] #### ALC, GFR #### [address] [address] Monocyte, Absolute 0.60 10 3/mcL Normal 0.15-1.00 [facility] ([place]) Comment on above: Performed By: #### C BC, ADIFF, ANEU, BMP #### [address] [address] #### ALC, GFR #### [address] [address] Monocytes/100 WBC (Bld) 4.4 % Normal 1.7-13.0 [facility] ([place]) Comment on above: Performed By: #### C BC, ADIFF, ANEU, BMP #### [address] [address] #### ALC, GFR #### [address] [address] Neutrophils/100 WBC (Bld) 65.6 % Normal 37.0-80.0 [facility] ([place] Comment on above: Performed By: #### C BC, ADIFF, ANEU, BMP #### [place] [address] #### ALC, GFR #### [address] [address] .GFRon 11-09-2020 GFR Non- 63 ml/min/1.73sqm Normal [facility] ([place] Comment on above: Result Comment: GFR Population mean for , Non- Americans Ages 20-29 = 116 mL/min/1.73 sq.m. Ages 30-39 = 107 mL/min/1.73 sq.m. Ages 40-49 = 99 mL/min/1.73 sq.m. Ages 50-59 = 93 mL/min/1.73 sq.m. Ages 60-69 = 85 mL/min/1.73 sq.m. Ages 70+ = 75 mL/min/1.73 sq.m. Chronic Kidney Disease: Less than 60 mL/min/1.73 square meters End Stage Renal Disease: Less than 15 mL/min/1.73 square meters Performed By: #### C BC, ADIFF, ANEU, BMP #### [place] [address] #### ALC, GFR #### [address] [address] GFR 76 ml/min/1.73sqm Normal [facility] ([place] Comment on above: Result Comment: GFR Population mean for , Non- Americans Ages 20-29 = 116 mL/min/1.73 sq.m. Ages 30-39 = 107 mL/min/1.73 sq.m. Ages 40-49 = 99 mL/min/1.73 sq.m. Ages 50-59 = 93 mL/min/1.73 sq.m. Ages 60-69 = 85 mL/min/1.73 sq.m. Ages 70+ = 75 mL/min/1.73 sq.m. Chronic Kidney Disease: Less than 60 mL/min/1.73 square meters End Stage Renal Disease: Less than 15 mL/min/1.73 square meters Performed By: #### C BC, ADIFF, ANEU, BMP #### [place] [address] #### ALC, GFR #### [address] [address] .NEUABSon 11-09-2020 Neutrophil, Absolute 8.90 10 3/mcL High 2.85-6.16 [facility] ([place]) Comment on above: Performed By: #### C BC, ADIFF, ANEU, BMP #### [address] [address] #### ALC, GFR #### [address] [address] .Urinalysis Microscopic (AO) on 11-09-2020 UA Coarse Granular Casts 0-5 Abnormal [facility] ([place] Comment on above: Performed By: #### C BC, ADIFF, ANEU, BMP #### [address] [address] #### ALC, GFR #### [address] [address] UA RBC 0-5 Abnormal None Seen [facility] ([place] Comment on above: Performed By: #### C BC, ADIFF, ANEU, BMP #### [address] [address] #### ALC, GFR #### [address] [address] UA Squam Epithelial 0-5 Abnormal None Seen [facility] ([place] Comment on above: Performed By: #### C BC, ADIFF, ANEU, BMP #### [place] [address] #### ALC, GFR #### [address] [address] UA WBC None Seen Normal None Seen [facility] ([place] Comment on above: Performed By: #### C BC, ADIFF, ANEU, BMP #### [place] [address] #### ALC, GFR #### [address] [address] ACETAon 11-09-2020 Acetaminophen [Mass/Vol] 0.0 ug/mL Normal 10.0-30.0 [facility] ([place] Comment on above: Performed By: #### C BC, ADIFF, ANEU, BMP #### [place] [address] #### ALC, GFR #### [address] [address] Juan 11-09-2020 Ethanol Level 422 mg/dL Critically abnormal 0-3 [facility] ([place] Comment on above: Performed By: #### C BC, ADIFF, ANEU, BMP #### [address] [address] #### ALC, GFR #### [address] [address] BMPon 11-09-2020 BUN/Creatinine Ratio 12 ratio Normal 7-27 [facility] ([place]) Comment on above: Order Comment: Speci men hemolyzed. Notified Madina in ER @11/09/2020 11:12:58 EDT BP Performed By: #### C BC, ADIFF, ANEU, BMP #### [address] [address] #### ALC, GFR #### [address] [address] Calcium [Mass/Vol] 7.8 mg/dL Low 8.4-10.2 [facility] ([place] Comment on above: Order Comment: Speci men hemolyzed. Notified Madina in ER @11/09/2020 11:12:58 EDT BP Performed By: #### C BC, ADIFF, ANEU, BMP #### [address] [address] #### ALC, GFR #### [address] [address] Chloride [Moles/Vol] 104 mmol/L Normal 98-107 [facility] ([place] Comment on above: Order Comment: Speci men hemolyzed. Notified Madina in ER @11/09/2020 11:12:58 EDT BP Performed By: #### C BC, ADIFF, ANEU, BMP #### [address] [address] #### ALC, GFR #### [address] [address] CO2 [Moles/Vol] 20 mmol/L Low 23-31 [facility] ([place] Comment on above: Order Comment: Speci men hemolyzed. Notified Madina in ER @11/09/2020 11:12:58 EDT BP Performed By: #### C BC, ADIFF, ANEU, BMP #### [address] [address] #### ALC, GFR #### [address] [address] Creatinine [Mass/Vol] 0.91 mg/dL Normal 0.55-1.02 [facility] ([place] Comment on above: Order Comment: Speci men hemolyzed. Notified Madina in ER @11/09/2020 11:12:58 EDT BP Performed By: #### C BC, ADIFF, ANEU, BMP #### [address] [address] #### ALC, GFR #### [address] [address] Electrolyte Balance 21.0 mEq/L Normal [facility] ([place]) Comment on above: Order Comment: Speci men hemolyzed. Notified Madina in ER @11/09/2020 11:12:58 EDT BP Performed By: #### C BC, ADIFF, ANEU, BMP #### [address] [address] #### ALC, GFR #### [address] [address] Glucose [Mass/Vol] 86 mg/dL Normal 80-115 [facility] ([place] Comment on above: Order Comment: Speci men hemolyzed. Notified Madina in ER @11/09/2020 11:12:58 EDT BP Performed By: #### C BC, ADIFF, ANEU, BMP #### [address] [address] #### ALC, GFR #### [address] [address] Potassium [Moles/Vol] 3.6 mmol/L Normal 3.5-5.1 [facility] ([place] Comment on above: Order Comment: Speci men hemolyzed. Notified Madina in ER @11/09/2020 11:12:58 EDT BP Performed By: #### C BC, ADIFF, ANEU, BMP #### [address] [address] #### ALC, GFR #### [address] [address] Sodium [Moles/Vol] 145 mmol/L Normal 136-145 [facility] ([place] Comment on above: Order Comment: Speci men hemolyzed. Notified Madina in ER @11/09/2020 11:12:58 EDT BP Performed By: #### C BC, ADIFF, ANEU, BMP #### [address] [address] #### ALC, GFR #### [address] [address] Urea nitrogen [Mass/Vol] 11 mg/dL Normal 7-18 [facility] ([place] Comment on above: Order Comment: Speci men hemolyzed. Notified Madina in ER @11/09/2020 11:12:58 EDT BP Performed By: #### C BC, ADSKY, ANEU, BMP #### [place] [address] #### ALC, GFR #### [address] [address] CBCon 11-09-2020 Erythrocyte distribution width (RBC) [Ratio] 18.0 % High 11.5-14.5 [facility] ([place] Comment on above: Performed By: #### C BC, ADIFF, ANEU, BMP #### [place] [address] #### ALC, GFR #### [address] [address] Hematocrit (Bld) [Volume fraction] 39.7 % Normal 37.0-47.0 [facility] ([place] Comment on above: Performed By: #### C BC, ADSKY, ANEU, BMP #### [place] [address] #### ALC, GFR #### [address] [address] Hgb 13.5 G/dL Normal 12.0-16.0 [facility] ([place] Comment on above: Performed By: #### C BC, ADIFF, ANEU, BMP #### [address] [address] #### ALC, GFR #### [address] [address] MCH (RBC) [Entitic mass] 31.2 pg Normal 27.0-31.2 [facility] ([place] Comment on above: Performed By: #### C BC, ADIFF, ANEU, BMP #### [place] [address] #### ALC, GFR #### [place] [address] MCHC 34.2 G/dL Normal 33.0-37.0 [facility] ([place] Comment on above: Performed By: #### C BC, ADIFF, ANEU, BMP #### [place] [address] #### ALC, GFR #### [place] [address] MCV (RBC) [Entitic vol] 91.5 fL Normal 80.0-94.0 A [facility] ([place] Comment on above: Performed By: #### C BC, ADIFF, ANEU, BMP #### [place] [address] #### ALC, GFR #### [place] [address] Platelet 274 10 3/mcL Normal 130-400 [facility] ([place] Comment on above: Performed By: #### C BC, ADIFF, ANEU, BMP #### [place] [address] #### ALC, GFR #### [place] [address] Platelet mean volume (Bld) [Entitic vol] 6.9 fL Low 7.4-10.4 [facility] ([place] Comment on above: Performed By: #### C BC, ADIFF, ANEU, BMP #### [place] [address] #### ALC, GFR #### [place] [address] RBC 4.34 10 6/mcL Normal 4.20-5.40 [facility] ([place] Comment on above: Performed By: #### C BC, ADIFF, ANEU, BMP #### [place] [address] #### ALC, GFR #### [place] [address] WBC 13.60 10 3/mcL High 4.60-10.80 [facility] ([place] Comment on above: Performed By: #### C BC, ADIFF, ANEU, BMP #### [place] [address] #### ALC, GFR #### [place] [address] CKon 11-09-2020 CK [Catalytic activity/Vol] 64 U/L Normal 26-192 [facility] ([place] Comment on above: Performed By: #### C BC, ADIFF, ANEU, BMP #### [place] [address] #### ALC, GFR #### [place] [address] [id number] 11-09-2020 Date of Onset [id number] Invalid Interpretation Code [facility] ([place] Comment on above: Performed By: #### C BC, ADIFF, ANEU, BMP #### [place] [address] #### ALC, GFR #### [place] [address] Employed in Healthcare No Normal [facility] ([place] Comment on above: Performed By: #### C BC, ADIFF, ANEU, BMP #### [place] [address] #### ALC, GFR #### [place] [address] First Test Unknown [facility] ([place]) Comment on above: Performed By: #### C BC, ADIFF, ANEU, BMP #### [address] [address] #### ALC, GFR #### [facility] [address] [place] [id number] Hospitalized Unknown [facility] ([place] Comment on above: Performed By: #### C BC, ADIFF, ANEU, BMP #### [address] [address] #### ALC, GFR #### [facility] [address] [place] [address] ICU No [facility] ([place] Comment on above: Performed By: #### C BC, ADIFF, ANEU, BMP #### [address] [address] #### ALC, GFR #### [place] [address] Not [facility] ([place] Comment on above: Performed By: #### C BC, ADIFF, ANEU, BMP #### [address] [address] #### ALC, GFR #### [place] [address] Resides in Congregate Care Setting [facility] ([place] Comment on above: Performed By: #### C BC, ADIFF, ANEU, BMP #### [address] [address] #### ALC, GFR #### [place] [address] SARS-CoV-2 (COVID-19) RNA TONIO+probe Ql (Unsp spec) Negative Normal Negative [facility] ([place] Comment on above: Performed By: #### C BC, ADIFF, ANEU, BMP #### [address] [address] #### ALC, GFR #### [place] [id number] SARS-CoV-2 (COVID-19) RNA TONIO+probe Ql (Unsp spec) Normal [facility] ([place] Comment on above: Result Comment: Nega tive results do not preclude SARS-CoV-2 infection and should not be used as the sole basis for patient management decisions. Negative results must be combined with clinical observations, patient history, and epidemiological information. There is a risk of false negative values resulting from improperly collected, transported, or handled specimens. There is a risk of false negative values due to the presence of sequence variants in the pathogen targets of the assay, procedural errors, amplification inhibitors in specimens, or inadequate numbers of organisms for amplification. [employer] SARS-CoV-2 Assay is a Real-Time reverse-transcriptase polymerase chain reaction (RT-PCR) based qualitative in vitro diagnostic test intended for the qualitative detection of nucleic acid from the SARS-CoV-2 in nasopharyngeal swab specimens collected from individuals suspected of COVID-19 by their healthcare provider. Testing is limited to laboratories certified under the Clinical Laboratory Improvement Amendments of 1988 (CLIA), 42 U.S.C. ?263a, to perform moderate and high complexity tests. COVID-19 Int Performed By: #### C PARIS MENA ANEU, BMP #### [place] [address] #### ALC, GFR #### [place] [address] Symptomatic as Defined by CDC Yes [facility] ([place]) Comment on above: Performed By: #### C PARIS MENA ANEU, BMP #### [place] [address] #### ALC, GFR #### [place] [address] MGon 11-09-2020 Magnesium [Mass/Vol] 1.1 mg/dL Low 1.8-2.4 [facility] ([place]) Comment on above: Performed By: #### C PARIS MENA ANEU, BMP #### [place] [address] #### ALC, GFR #### [place] [id number] SALon 11-09-2020 Salicylate Level 1.1 mg/dL Low 2.8-20.0 [facility] ([place]) Comment on above: Performed By: #### C BC, ADIFF, ANEU, BMP #### [address] [address] #### ALC, GFR #### [address] [address] TOXSCon 11-09-2020 U Ampheta (AO) Negative [facility] ([place]) Comment on above: Performed By: #### C BC, ADIFF, ANEU, BMP #### [place] [address] #### ALC, GFR #### [place] [id number] U Dee (AO) Negative [facility] ([place] Comment on above: Performed By: #### C BC, ADIFF, ANEU, BMP #### [place] [address] #### ALC, GFR #### [place] [id number] U Maverick (AO) Negative [facility] ([place] Comment on above: Performed By: #### C BC, ADIFF, ANEU, BMP #### [address] [address] #### ALC, GFR #### [address] [address] U Cannab (AO) Negative [facility] ([place] Comment on above: Performed By: #### C BC, ADIFF, ANEU, BMP #### [address] [address] #### ALC, GFR #### [address] [address] U Cocaine (AO) Negative [facility] ([place] Comment on above: Performed By: #### C BC, ADIFF, ANEU, BMP #### [address] [address] #### ALC, GFR #### [place] [id number] U Methadone (AO) Negative [facility] ([place] Comment on above: Performed By: #### C BC, ADIFF, ANEU, BMP #### [address] [address] #### ALC, GFR #### [address] [address] U PCP (AO) Negative [facility] ([place] Comment on above: Performed By: #### C BC, ADIFF, ANEU, BMP #### [address] [address] #### ALC, GFR #### [address] [address] U TCA (AO) Negative [facility] ([place] Comment on above: Performed By: #### C BC, ADIFF, ANEU, BMP #### [place] [address] #### ALC, GFR #### [place] [address] Urine Opiates (AO) Negative [facility] ([place]) Comment on above: Performed By: #### C BC, ADIFF, ANEU, BMP #### [place] [address] #### ALC, GFR #### [place] [address] TROPHSon 11-09-2020 Troponin I High Sensitivity 6.9 ng/L Normal 0.0-51.4 [facility] ([place] Comment on above: Performed By: #### C BC, ADIFF, ANEU, BMP #### [place] [address] #### ALC, GFR #### [place] [address] TSHon 11-09-2020 TSH Qn 0.56 m[IU]/L Normal 0.36-3.74 [facility] ([place] Comment on above: Performed By: #### C BC, ADIFF, ANEU, BMP #### [place] [address] #### ALC, GFR #### [address] [address] UAon 11-09-2020 Color (U) Yellow Normal [facility] ([place] Comment on above: Performed By: #### C BC, ADIFF, ANEU, BMP #### [place] [address] #### ALC, GFR #### [place] [address] Glucose (U) [Mass/Vol] Negative Normal Negative [facility] ([place]) Comment on above: Performed By: #### C BC, ADIFF, ANEU, BMP #### [place] [address] #### ALC, GFR #### [place] [address] Ketones Ql (U) 15 mg/dL Abnormal Negative [facility] ([place]) Comment on above: Performed By: #### C BC, ADIFF, ANEU, BMP #### [place] [address] #### ALC, GFR #### [place] [address] UA Appear Clear Normal Clear [facility] ([place] Comment on above: Performed By: #### C BC, ADIFF, ANEU, BMP #### [place] [address] #### ALC, GFR #### [place] [address] UA Blood Trace Abnormal Negative [facility] ([place]) Comment on above: Performed By: #### C BC, ADIFF, ANEU, BMP #### [place] [address] #### ALC, GFR #### [place] [id number] UA Leuk Est Negative Normal Negative [facility] ([place]) Comment on above: Performed By: #### C BC, ADIFF, ANEU, BMP #### [place] [address] #### ALC, GFR #### [place] [address] UA Nitrite Negative Normal Negative [facility] ([place] Comment on above: Performed By: #### C BC, ADIFF, ANEU, BMP #### [place] [address] #### ALC, GFR #### [place] [address] UA pH 5.5 Normal 5.0 - 8.0 [facility] ([place] Comment on above: Performed By: #### C BC, ADIFF, ANEU, BMP #### [place] [address] #### ALC, GFR #### [place] [address] UA Protein 30 mg/dL Normal Negative [facility] ([place] Comment on above: Performed By: #### C BC, ADIFF, ANEU, BMP #### [place] [address] #### ALC, GFR #### [place] [address] UA Spec Grav 1.025 Normal 1.015-1.025 [facility] ([place] Comment on above: Performed By: #### C BC, ADIFF, ANEU, BMP #### [place] [address] #### ALC, GFR #### [place] [address] UA Specimen Type Clean Catch Normal [facility] ([place] Comment on above: Performed By: #### C BC, ADIFF, ANEU, BMP #### [place] [address] #### ALC, GFR #### [place] [address] UA Urobilinogen 0.2 E.U./dL Normal 0.2-1.0 [facility] ([place] Comment on above: Performed By: #### C BC, ADIFF, ANEU, BMP #### [address] [address] #### ALC, GFR #### [address] [address] Urobilinogen (U) [Mass/Vol] Negative Normal Negative [facility] ([place] Comment on above: Performed By: #### C BC, ADIFF, ANEU, BMP #### [address] [address] #### ALC, GFR #### [address] [address] XR CHEST 1 VIEWon 11-09-2020 XR CHEST 1 VIEW ORIGINAL XR CHEST 1 VIEW CLINICAL STATEMENT: tachycardia. COMPARISON: 10/12/2018 FINDINGS: The cardiomediastinal silhouette is unchanged. There are calcified densities near the LEFT hilum, presumably related to lymph nodes and similar in appearance to the prior exam. No focal consolidation, pleural effusion, vascular congestion, or pneumothorax. IMPRESSION: No acute radiographic findings. Interpreted By: Nadia Chawla MD Preliminary Report By: Nadia Chawla MD Electronically Signed By: Nadia Chawla MD Dictated Date: 11/09/2020 11:45:35 AM Prelim Date: 11/09/2020 11:45:35 AM Sign Date: 11/09/2020 11:46:04 AM Ordering Provider:Diego Sultana [facility] ([place]) .Auto Diffon 09-29-2020 Basophil, Absolute 0.00 10 3/mcL Normal 0.00-0.19 [facility] ([place]) Comment on above: Performed By: #### C BC, ADIFF, ANEU, BMP #### [address] [address] #### ALC, GFR #### [address] [address] Basophils/100 WBC (Bld) 0.1 % Normal 0.0-2.5 A [facility] ([place] Comment on above: Performed By: #### C BC, ADIFF, ANEU, BMP #### [address] [address] #### ALC, GFR #### [address] [address] Eosinophil, Absolute 0.00 10 3/mcL Normal 0.00-0.40 A [facility] ([place] Comment on above: Performed By: #### C BC, ADIFF, ANEU, BMP #### [address] [address] #### ALC, GFR #### [address] [address] Eosinophils/100 WBC (Bld) 0.1 % Normal 0.0-7.0 [facility] ([place]) Comment on above: Performed By: #### C BC, ADIFF, ANEU, BMP #### [place] [address] #### ALC, GFR #### [address] [address] Lymphocyte, Absolute 1.30 10 3/mcL Normal 0.77-3.85 A [facility] ([place]) Comment on above: Performed By: #### C BC, ADIFF, ANEU, BMP #### [place] [address] #### ALC, GFR #### [address] [address] Lymphocytes/100 WBC (Bld) 21.3 % Normal 10.0-50.0 [facility] ([place] Comment on above: Performed By: #### C BC, ADIFF, ANEU, BMP #### [place] [address] #### ALC, GFR #### [address] [address] Monocyte, Absolute 0.50 10 3/mcL Normal 0.15-1.00 [facility] ([place] Comment on above: Performed By: #### C BC, ADIFF, ANEU, BMP #### [place] [address] #### ALC, GFR #### [address] [address] Monocytes/100 WBC (Bld) 7.8 % Normal 1.7-13.0 A [facility] ([place] Comment on above: Performed By: #### C BC, ADIFF, ANEU, BMP #### [address] [address] #### ALC, GFR #### [address] [address] Neutrophils/100 WBC (Bld) 70.7 % Normal 37.0-80.0 [facility] ([place] Comment on above: Performed By: #### C BC, ADIFF, ANEU, BMP #### [address] [address] #### ALC, GFR #### [address] [address] .GFRon 09-29-2020 GFR 80 ml/min/1.73sqm Normal [facility] ([place]) Comment on above: Result Comment: GFR Population mean for , Non- Americans Ages 20-29 = 116 mL/min/1.73 sq.m. Ages 30-39 = 107 mL/min/1.73 sq.m. Ages 40-49 = 99 mL/min/1.73 sq.m. Ages 50-59 = 93 mL/min/1.73 sq.m. Ages 60-69 = 85 mL/min/1.73 sq.m. Ages 70+ = 75 mL/min/1.73 sq.m. Chronic Kidney Disease: Less than 60 mL/min/1.73 square meters End Stage Renal Disease: Less than 15 mL/min/1.73 square meters Performed By: #### C BC, ADIFF, ANEU, BMP #### [address] [address] #### ALC, GFR #### [address] [address] GFR Non- 66 ml/min/1.73sqm Normal [facility] ([place] Comment on above: Result Comment: GFR Population mean for , Non- Americans Ages 20-29 = 116 mL/min/1.73 sq.m. Ages 30-39 = 107 mL/min/1.73 sq.m. Ages 40-49 = 99 mL/min/1.73 sq.m. Ages 50-59 = 93 mL/min/1.73 sq.m. Ages 60-69 = 85 mL/min/1.73 sq.m. Ages 70+ = 75 mL/min/1.73 sq.m. Chronic Kidney Disease: Less than 60 mL/min/1.73 square meters End Stage Renal Disease: Less than 15 mL/min/1.73 square meters Performed By: #### C BC, ADIFF, ANEU, BMP #### [place] [address] #### ALC, GFR #### [place] [address] .NEUABSon 09-29-2020 Neutrophil, Absolute 4.30 10 3/mcL Normal 2.85-6.16 A [facility] ([place] Comment on above: Performed By: #### C BC, ADIFF, ANEU, BMP #### [place] [address] #### ALC, GFR #### [place] [address] .Urinalysis Microscopic (AO) on 09-29-2020 UA RBC None Seen Normal None Seen [facility] ([place] Comment on above: Performed By: #### C BC, ADIFF, ANEU, BMP #### [place] [address] #### ALC, GFR #### [place] [address] UA Squam Epithelial 0-5 Abnormal None Seen [facility] ([place]) Comment on above: Performed By: #### C BC, ADIFF, ANEU, BMP #### [place] [address] #### ALC, GFR #### [place] [id number] UA WBC 0-5 Abnormal None Seen [facility] ([place] Comment on above: Performed By: #### C BC, ADIFF, ANEU, BMP #### [place] [address] [place], [place] [address] #### ALC, GFR #### [address] [address] A1Con 09-29-2020 HbA1c (Bld) [Mass fraction] 5.3 % Normal 4.3-6.4 [facility] ([place] Comment on above: Performed By: #### A 1C #### [address] [address] #### TSH #### [address] [address] [facility] 09-29-2020 BUN/Creatinine Ratio 15 ratio Normal 7-27 [facility] ([place]) Comment on above: Performed By: #### C BC, ADIFF, ANEU, BMP #### [address] [address] #### ALC, GFR #### [address] [address] Calcium [Mass/Vol] 9.0 mg/dL Normal 8.4-10.2 [facility] ([place]) Comment on above: Performed By: #### C BC, ADIFF, ANEU, BMP #### [address] [address] #### ALC, GFR #### [address] [address] Chloride [Moles/Vol] 98 mmol/L Normal 98-107 [facility] ([place] Comment on above: Performed By: #### C BC, ADIFF, ANEU, BMP #### [address] [address] #### ALC, GFR #### [address] [address] CO2 [Moles/Vol] 33 mmol/L High 23-31 [facility] ([place] Comment on above: Performed By: #### C BC, ADIFF, ANEU, BMP #### [address] [address] #### ALC, GFR #### [address] [address] Creatinine [Mass/Vol] 0.87 mg/dL Normal 0.55-1.02 [facility] ([place]) Comment on above: Performed By: #### C BC, ADIFF, ANEU, BMP #### [address] [address] #### ALC, GFR #### [address] [address] Electrolyte Balance 8.0 mEq/L Normal [facility] ([place]) Comment on above: Performed By: #### C BC, ADIFF, ANEU, BMP #### [address] [address] #### ALC, GFR #### [address] [address] Glucose [Mass/Vol] 130 mg/dL High 80-115 [facility] ([place] Comment on above: Performed By: #### C BC, ADIFF, ANEU, BMP #### [place] [address] #### ALC, GFR #### [address] [address] Potassium [Moles/Vol] 4.1 mmol/L Normal 3.5-5.1 [facility] ([place] Comment on above: Performed By: #### C BC, ADIFF, ANEU, BMP #### [address] [address] #### ALC, GFR #### [address] [address] Sodium [Moles/Vol] 139 mmol/L Normal 136-145 [facility] ([place] Comment on above: Performed By: #### C BC, ADIFF, ANEU, BMP #### [address] [address] #### ALC, GFR #### [address] [address] Urea nitrogen [Mass/Vol] 13 mg/dL Normal 7-18 [facility] ([place] Comment on above: Performed By: #### C BC, ADIFF, ANEU, BMP #### [place] [address] #### ALC, GFR #### [place] [address] CBCon 09-29-2020 Erythrocyte distribution width (RBC) [Ratio] 16.9 % High 11.5-14.5 [facility] ([place] Comment on above: Performed By: #### C BC, ADIFF, ANEU, BMP, MG #### [place] [address] #### GFR #### [place] [address] Hematocrit (Bld) [Volume fraction] 36.0 % Low 37.0-47.0 [facility] ([place] Comment on above: Performed By: #### C BC, ADIFF, ANEU, BMP, MG #### [place] [address] #### GFR #### [place] [address] Hgb 12.3 G/dL Normal 12.0-16.0 [facility] ([place] Comment on above: Performed By: #### C BC, ADIFF, ANEU, BMP, MG #### [place] [address] #### GFR #### [place] [address] MCH (RBC) [Entitic mass] 31.5 pg High 27.0-31.2 [facility] ([place] Comment on above: Performed By: #### C BC, ADIFF, ANEU, BMP, MG #### [place] [address] #### GFR #### [place] [address] MCHC 34.2 G/dL Normal 33.0-37.0 [facility] ([place] Comment on above: Performed By: #### C BC, ADIFF, ANEU, BMP, MG #### [place] [address] #### GFR #### [address] [address] MCV (RBC) [Entitic vol] 92.1 fL Normal 80.0-94.0 A [facility] ([place] Comment on above: Performed By: #### C BC, ADIFF, ANEU, BMP, MG #### [place] [address] #### GFR #### [place] [address] Platelet 162 10 3/mcL Normal 130-400 [facility] ([place] Comment on above: Performed By: #### C BC, ADIFF, ANEU, BMP, MG #### [place] [address] #### GFR #### [place] [address] Platelet mean volume (Bld) [Entitic vol] 7.8 fL Normal 7.4-10.4 [facility] ([place] Comment on above: Performed By: #### C BC, ADIFF, ANEU, BMP, MG #### [place] [address] #### GFR #### [place] [address] RBC 3.91 10 6/mcL Low 4.20-5.40 [facility] ([place] Comment on above: Performed By: #### C BC, ADIFF, ANEU, BMP, MG #### [place] [address] #### GFR #### [place] [address] WBC 6.10 10 3/mcL Normal 4.60-10.80 [facility] ([place] Comment on above: Performed By: #### C BC, ADIFF, ANEU, BMP, MG #### [place] [address] #### GFR #### [place] [address] [id number] 09-29-2020 Date of Onset [id number] Invalid Interpretation Code [facility] ([place] Comment on above: Performed By: #### C BC, ADIFF, ANEU, BMP #### [address] [address] #### ALC, GFR #### [address] [address] [facility]ed in [facility] [place] Comment on above: Performed By: #### C BC, ADIFF, ANEU, BMP #### [address] [address] #### ALC, GFR #### [place] [address] First Test Unknown [facility] ([place] Comment on above: Performed By: #### C BC, ADIFF, ANEU, BMP #### [address] [address] #### ALC, GFR #### [place] [address] Hospitalized Yes [facility] ([place] Comment on above: Performed By: #### C BC, ADIFF, ANEU, BMP #### [address] [address] #### ALC, GFR #### [place] [address] ICU No [facility] ([place] Comment on above: Performed By: #### C BC, ADIFF, ANEU, BMP #### [address] [address] #### ALC, GFR #### [place] [address] Not [facility] ([place] Comment on above: Performed By: #### C BC, ADIFF, ANEU, BMP #### [address] [address] #### ALC, GFR #### [place] [address] Resides in Congregate Care Setting No [facility] ([place] Comment on above: Performed By: #### C PARIS MENA ANEU, BMP #### [address] [address] #### ALC, GFR #### [place] [address] SARS-CoV-2 (COVID-19) RNA TONIO+probe Ql (Unsp spec) Negative Normal Negative [facility] ([place] Comment on above: Performed By: #### C PARIS MENA ANEU, BMP #### [address] [address] #### ALC, GFR #### [place] [id number] [address] [place], [place] [id number] SARS-CoV-2 (COVID-19) RNA TONIO+probe Ql (Unsp spec) Normal [facility] ([place] Comment on above: Result Comment: Nega tive results do not preclude SARS-CoV-2 infection and should not be used as the sole basis for patient management decisions. Negative results must be combined with clinical observations, patient history, and epidemiological information. There is a risk of false negative values resulting from improperly collected, transported, or handled specimens. There is a risk of false negative values due to the presence of sequence variants in the pathogen targets of the assay, procedural errors, amplification inhibitors in specimens, or inadequate numbers of organisms for amplification. [employer] SARS-CoV-2 Assay is a Real-Time reverse-transcriptase polymerase chain reaction (RT-PCR) based qualitative in vitro diagnostic test intended for the qualitative detection of nucleic acid from the SARS-CoV-2 in nasopharyngeal swab specimens collected from individuals suspected of COVID-19 by their healthcare provider. Testing is limited to laboratories certified under the Clinical Laboratory Improvement Amendments of 1988 (CLIA), 42 U.S.C. ?263a, to perform moderate and high complexity tests. COVID-19 Int Performed By: #### C PARIS MENA ANEU, BMP #### [address] [address] #### ALC, GFR #### [place] [id number] Symptomatic as Defined by [facility] No Normal [facility] ([place] Comment on above: Performed By: #### C BC, ADIFF, ANEU, BMP #### [address] [address] #### ALC, GFR #### [place] [address] MGon 09-29-2020 Magnesium [Mass/Vol] 1.3 mg/dL Low 1.8-2.4 [facility] ([place] Comment on above: Performed By: #### C BC, ADIFF, ANEU, BMP #### [place] [address] #### ALC, GFR #### [place] [address] TSHon 09-29-2020 TSH Qn 2.52 m[IU]/L Normal 0.36-3.74 [facility] ([place] Comment on above: Performed By: #### A 1C #### [place] [address] #### TSH #### [place] [id number] UAon 09-29-2020 Color (U) Yellow Normal [facility] ([place] Comment on above: Performed By: #### C BC, ADIFF, ANEU, BMP #### [place] [address] #### ALC, GFR #### [place] [address] Glucose (U) [Mass/Vol] Negative Normal Negative [facility] ([place]) Comment on above: Performed By: #### C BC, ADIFF, ANEU, BMP #### [address] [address] #### ALC, GFR #### [place] [address] Ketones Ql (U) Negative Normal Negative [facility] ([place]) Comment on above: Performed By: #### C BC, ADIFF, ANEU, BMP #### [place] [address] #### ALC, GFR #### [address] [address] UA Appear Clear Normal Clear [facility] ([place] Comment on above: Performed By: #### C BC, ADIFF, ANEU, BMP #### [address] [address] #### ALC, GFR #### [address] [address] UA Blood Negative Normal Negative [facility] ([place] Comment on above: Performed By: #### C BC, ADIFF, ANEU, BMP #### [address] [address] #### ALC, GFR #### [address] [address] UA Leuk Est Negative Normal Negative [facility] ([place] Comment on above: Performed By: #### C BC, ADIFF, ANEU, BMP #### [address] [address] #### ALC, GFR #### [address] [address] UA Nitrite Negative Normal Negative [facility] ([place] Comment on above: Performed By: #### C BC, ADIFF, ANEU, BMP #### [address] [address] #### ALC, GFR #### [address] [address] UA pH 8.5 Abnormal 5.0 - 8.0 [facility] ([place] Comment on above: Performed By: #### C BC, ADIFF, ANEU, BMP #### [address] [address] #### ALC, GFR #### [address] [address] UA Protein 30 mg/dL Normal Negative [facility] ([place] Comment on above: Performed By: #### C BC, ADIFF, ANEU, BMP #### [address] [address] #### ALC, GFR #### [place] [address] UA Spec Grav 1.020 Normal 1.015-1.025 [facility] ([place] Comment on above: Performed By: #### C BC, ADIFF, ANEU, BMP #### [place] [address] #### ALC, GFR #### [place] [address] UA Specimen Type Clean Catch Normal [facility] ([place] Comment on above: Performed By: #### C BC, ADIFF, ANEU, BMP #### [place] [address] #### ALC, GFR #### [place] [address] UA Urobilinogen 0.2 E.U./dL Normal 0.2-1.0 [facility] ([place] Comment on above: Performed By: #### C BC ADIFF, ANEU, BMP #### [place] [address] #### ALC, GFR #### [place] [address] Urobilinogen (U) [Mass/Vol] Negative Normal Negative [facility] ([place] Comment on above: Performed By: #### C BC ADIFF, ANEU, BMP #### [place] [address] #### ALC, GFR #### [place] [address] .Auto Diffon 09-28-2020 Basophil, Absolute 0.00 10 3/mcL Normal 0.00-0.19 [facility] ([place] Comment on above: Performed By: #### C BC, ADIFF, ANEU, BMP #### [place] [address] #### ALC, GFR #### [place] [address] Basophils/100 WBC (Bld) 0.2 % Normal 0.0-2.5 A [facility] ([place] Comment on above: Performed By: #### C BC, ADIFF, ANEU, BMP #### [address] [address] #### ALC, GFR #### [address] [address] Eosinophil, Absolute 0.00 10 3/mcL Normal 0.00-0.40 A [facility] ([place] Comment on above: Performed By: #### C BC, ADIFF, ANEU, BMP #### [place] [address] #### ALC, GFR #### [address] [address] Eosinophils/100 WBC (Bld) 0.2 % Normal 0.0-7.0 [facility] ([place] Comment on above: Performed By: #### C BC, ADIFF, ANEU, BMP #### [place] [address] #### ALC, GFR #### [address] [address] Lymphocyte, Absolute 1.00 10 3/mcL Normal 0.77-3.85 A [facility] ([place] Comment on above: Performed By: #### C BC, ADIFF, ANEU, BMP #### [place] [address] #### ALC, GFR #### [address] [address] Lymphocytes/100 WBC (Bld) 16.6 % Normal 10.0-50.0 [facility] ([place] Comment on above: Performed By: #### C BC, ADIFF, ANEU, BMP #### [place] [address] #### ALC, GFR #### [address] [address] Monocyte, Absolute 0.50 10 3/mcL Normal 0.15-1.00 [facility] ([place] Comment on above: Performed By: #### C BC, ADIFF, ANEU, BMP #### [address] [address] #### ALC, GFR #### [address] [address] Monocytes/100 WBC (Bld) 7.8 % Normal 1.7-13.0 A [facility] ([place] Comment on above: Performed By: #### C BC, ADIFF, ANEU, BMP #### [address] [address] #### ALC, GFR #### [address] [address] Neutrophils/100 WBC (Bld) 75.2 % Normal 37.0-80.0 [facility] ([place]) Comment on above: Performed By: #### C BC, ADIFF, ANEU, BMP #### [address] [address] #### ALC, GFR #### [address] [address] .GFRon 09-28-2020 GFR Non- 56 ml/min/1.73sqm Normal [facility] ([place]) Comment on above: Result Comment: GFR Population mean for , Non- Americans Ages 20-29 = 116 mL/min/1.73 sq.m. Ages 30-39 = 107 mL/min/1.73 sq.m. Ages 40-49 = 99 mL/min/1.73 sq.m. Ages 50-59 = 93 mL/min/1.73 sq.m. Ages 60-69 = 85 mL/min/1.73 sq.m. Ages 70+ = 75 mL/min/1.73 sq.m. Chronic Kidney Disease: Less than 60 mL/min/1.73 square meters End Stage Renal Disease: Less than 15 mL/min/1.73 square meters Performed By: #### C BC, ADIFF, ANEU, BMP #### [address] [address] #### ALC, GFR #### [address] [address] GFR 68 ml/min/1.73sqm Normal [facility] ([place]) Comment on above: Result Comment: GFR Population mean for , Non- Americans Ages 20-29 = 116 mL/min/1.73 sq.m. Ages 30-39 = 107 mL/min/1.73 sq.m. Ages 40-49 = 99 mL/min/1.73 sq.m. Ages 50-59 = 93 mL/min/1.73 sq.m. Ages 60-69 = 85 mL/min/1.73 sq.m. Ages 70+ = 75 mL/min/1.73 sq.m. Chronic Kidney Disease: Less than 60 mL/min/1.73 square meters End Stage Renal Disease: Less than 15 mL/min/1.73 square meters Performed By: #### C BC, ADIFF, ANEU, BMP #### [place] [address] #### ALC, GFR #### [address] [address] .NEUABSon 09-28-2020 Neutrophil, Absolute 4.40 10 3/mcL Normal 2.85-6.16 A [facility] ([place]) Comment on above: Performed By: #### C BC ADIFF, ANEU, BMP #### [place] [address] #### ALC, GFR #### [place] [address] Juan 09-28-2020 Ethanol Level <3 Normal 0-3 [facility] ([place]) Comment on above: Performed By: #### C BC, ADIFF, ANEU, BMP #### [place] [address] #### ALC, GFR #### [address] 09-28-2020 BUN/Creatinine Ratio 16 ratio Normal 7-27 [facility] ([place]) Comment on above: Performed By: #### C BC, ADIFF, ANEU, BMP #### [place] [address] #### ALC, GFR #### [address] [address] Calcium [Mass/Vol] 9.6 mg/dL Normal 8.4-10.2 [facility] ([place]) Comment on above: Performed By: #### C BC, ADIFF, ANEU, BMP #### [address] [address] #### ALC, GFR #### [address] [address] Chloride [Moles/Vol] 95 mmol/L Low 98-107 [facility] ([place] Comment on above: Performed By: #### C BC, ADIFF, ANEU, BMP #### [address] [address] #### ALC, GFR #### [address] [address] CO2 [Moles/Vol] 32 mmol/L High 23-31 [facility] ([place] Comment on above: Performed By: #### C BC, ADIFF, ANEU, BMP #### [address] [address] #### ALC, GFR #### [address] [address] Creatinine [Mass/Vol] 1.00 mg/dL Normal 0.55-1.02 [facility] ([place]) Comment on above: Performed By: #### C BC, ADIFF, ANEU, BMP #### [address] [address] #### ALC, GFR #### [address] [address] Electrolyte Balance 11.0 mEq/L Normal [facility] ([place]) Comment on above: Performed By: #### C BC, ADIFF, ANEU, BMP #### [address] [address] #### ALC, GFR #### [address] [address] Glucose [Mass/Vol] 214 mg/dL High 80-115 [facility] ([place] Comment on above: Performed By: #### C BC, ADIFF, ANEU, BMP #### [address] [address] #### ALC, GFR #### [address] [address] Potassium [Moles/Vol] 3.0 mmol/L Low 3.5-5.1 [facility] ([place] Comment on above: Performed By: #### C BC, ADIFF, ANEU, BMP #### [address] [address] #### ALC, GFR #### [address] [address] Sodium [Moles/Vol] 138 mmol/L Normal 136-145 [facility] ([place] Comment on above: Performed By: #### C BC, ADIFF, ANEU, BMP #### [address] [address] #### ALC, GFR #### [address] [address] Urea nitrogen [Mass/Vol] 16 mg/dL Normal 7-18 [facility] ([place] Comment on above: Performed By: #### C BC, ADIFF, ANEU, BMP #### [place] [address] #### ALC, GFR #### [address] [address] CBCon 09-28-2020 Erythrocyte distribution width (RBC) [Ratio] 16.7 % High 11.5-14.5 [facility] ([place] Comment on above: Performed By: #### C BC, ADIFF, ANEU, BMP #### [address] [address] #### ALC, GFR #### [address] [address] Hematocrit (Bld) [Volume fraction] 38.6 % Normal 37.0-47.0 [facility] ([place] Comment on above: Performed By: #### C BC, ADIFF, ANEU, BMP #### [place] [id number] #### ALC, GFR #### [address] [address] Hgb 13.0 G/dL Normal 12.0-16.0 [facility] ([place] Comment on above: Performed By: #### C BC, ADIFF, ANEU, BMP #### [place] [address] #### ALC, GFR #### [place] [address] MCH (RBC) [Entitic mass] 31.2 pg Normal 27.0-31.2 [facility] ([place] Comment on above: Performed By: #### C BC, ADIFF, ANEU, BMP #### [place] [address] #### ALC, GFR #### [place] [address] MCHC 33.8 G/dL Normal 33.0-37.0 [facility] ([place] Comment on above: Performed By: #### C BC, ADIFF, ANEU, BMP #### [place] [address] #### ALC, GFR #### [place] [address] MCV (RBC) [Entitic vol] 92.3 fL Normal 80.0-94.0 A [facility] ([place] Comment on above: Performed By: #### C BC, ADIFF, ANEU, BMP #### [place] [address] #### ALC, GFR #### [place] [address] Platelet 172 10 3/mcL Normal 130-400 [facility] ([place] Comment on above: Performed By: #### C BC, ADIFF, ANEU, BMP #### [place] [address] #### ALC, GFR #### [place] [address] Platelet mean volume (Bld) [Entitic vol] 6.9 fL Low 7.4-10.4 [facility] ([place] Comment on above: Performed By: #### C BC, ADSKY, ANEU, BMP #### [place] [address] #### ALC, GFR #### [place] [address] RBC 4.18 10 6/mcL Low 4.20-5.40 [facility] ([place] Comment on above: Performed By: #### C BC, ADIFF, ANEU, BMP #### [place] [address] #### ALC, GFR #### [place] [address] WBC 5.90 10 3/mcL Normal 4.60-10.80 [facility] ([place] Comment on above: Performed By: #### C BC, ADSKY, ANEU, BMP #### [place] [address] #### ALC, GFR #### [place] [address] TOXSCon 09-28-2020 U Ampheta (AO) Negative [facility] ([place] Comment on above: Performed By: #### T OXSC #### [address] [address] U Dee (AO) Negative [facility] ([place] Comment on above: Performed By: #### T OXSC #### [place] [address] [address] U Maverick (AO) Negative [facility] ([place] Comment on above: Performed By: #### T OXSC #### [place] [address] [address] U Cannab (AO) Negative [facility] ([place] Comment on above: Performed By: #### T OXSC #### [address] [address] U Cocaine (AO) Negative [facility] ([place] Comment on above: Performed By: #### T OXSC #### [place] [address] [place], [place] [address] U Methadone (AO) Negative Normal [facility] ([place] Comment on above: Performed By: #### T OXSC #### [place] [address] [place] [address] U PCP (AO) Negative Normal [facility] ([place] Comment on above: Performed By: #### T OXSC #### [place] [address] [address] U TCA (AO) Negative Normal [facility] ([place] Comment on above: Performed By: #### T OXSC #### [place] [address] [address] Urine Opiates (AO) Negative Normal [facility] ([place] Comment on above: Performed By: #### T OXSC #### [place] [address] [address] CBC and Differentialon 06-05 Abs Baso 0.03 k/uL Normal <0.11 [facility] Comment on above: Performed By: #### C BCDIF, VPA, CMP #### [facility] [address] [place], [place] [address] Abs Meriwether 0.61 k/uL Normal <0.87 [facility] Comment on above: Performed By: #### C BCDIF, VPA, CMP #### [facility] [address] [place], [place] [id number] Abs Neut 2.42 k/uL Normal 1.45-7.50 [facility] Comment on above: Performed By: #### C BCDIF, VPA, CMP #### [facility] [address] [place], [place] [address] Absolute nRBC <0.01 Normal <0.01 [facility] Comment on above: Performed By: #### C BCDIF, VPA, CMP #### [facility] [address] [place], [place] [address] Basophils/100 WBC (Bld) 0.5 % Normal C [facility] Comment on above: Performed By: #### C BCDIF, VPA, CMP #### [facility] [address] [place], [place] [address] DTYPE ADIFF Normal [facility] Comment on above: Performed By: #### C BCDIF, VPA, CMP #### [facility] [address] [place] [address] Eosinophils (Bld) [#/Vol] 0.16 10*3/uL Normal <0.46 [facility] Comment on above: Performed By: #### C BCDIF, VPA, CMP #### [facility] [address] [place] [address] Eosinophils/100 WBC (Bld) 2.8 % Normal [facility] Comment on above: Performed By: #### C BCDIF, VPA, CMP #### [facility] [address] [place] [address] Erythrocyte distribution width (RBC) [Ratio] 13.0 % Normal 11.5-15.0 [facility] Comment on above: Performed By: #### C BCDIF, VPA, CMP #### [facility] [address] [place] [id number] Hematocrit (Bld) [Volume fraction] 42.3 % Normal 36.0-46.0 [facility] Comment on above: Performed By: #### C BCDIF, VPA, CMP #### [facility] [address] [place] [address] Hemoglobin (Bld) [Mass/Vol] 13.7 g/dL Normal 11.5-15.5 [facility] Comment on above: Performed By: #### C BCDIF, VPA, CMP #### [facility] [address] [place], [place] [address] Lymphocytes (Bld) [#/Vol] 2.41 10*3/uL Normal 1.00-4.00 [facility] Comment on above: Performed By: #### C BCDIF, VPA, CMP #### [facility] [address] [place], [place] [address] Lymphocytes/100 WBC (Bld) 42.7 % Normal [facility] Comment on above: Performed By: #### C BCDIF, VPA, CMP #### [facility] [address] [place], [place] [address] MCH (RBC) [Entitic mass] 33.4 pG Normal 26.0-34.0 [facility] Comment on above: Performed By: #### C BCDIF, VPA, CMP #### [facility] [address] [place], [place] [address] MCHC (RBC) [Mass/Vol] 32.4 g/dL Normal 30.5-36.0 [facility] Comment on above: Performed By: #### C BCDIF, VPA, CMP #### [facility] [address] [place], [place] [address] MCV (RBC) [Entitic vol] 103.2 fL High 80.0-100.0 [facility] Comment on above: Performed By: #### C BCDIF, VPA, CMP #### [facility] [address] [place], [place] [address] Monocytes/100 WBC (Bld) 10.8 % Normal [facility] Comment on above: Performed By: #### C BCDIF, VPA, CMP #### [facility] [address] [place], [place] [address] Neutrophils/100 WBC (Bld) 43.2 % Normal [facility] Comment on above: Performed By: #### C BCDIF, VPA, CMP #### [facility] [address] [place], [place] [address] NRBCs 0.0 /100 WBC Normal 0 [facility] Comment on above: Performed By: #### C BCDIF, VPA, CMP #### [facility] [address] [place], [place] [address] Platelet mean volume (Bld) [Entitic vol] 10.0 fL Normal 9.0-12.7 [facility] Comment on above: Performed By: #### C BCDIF, VPA, CMP #### [facility] [address] [place], [place] [address] Platelets (Bld) [#/Vol] 215 10*3/uL Normal 150-400 [facility] Comment on above: Performed By: #### C BCDIF, VPA, CMP #### [facility] [address] [place] [address] RBC (Bld) [#/Vol] 4.10 10*6/uL Normal 3.90-5.20 [facility] Comment on above: Performed By: #### C BCDIF, VPA, CMP #### [facility] [address] [place], [place] [address] WBC (Bld) [#/Vol] 5.64 10*3/uL Normal 3.70-11.00 [facility] [place] [facility] Comment on above: Performed By: #### C BCDIF, VPA, CMP #### [facility] [address] [place] [address] Comp Metabolic Panelon 06-05 ALT [Catalytic activity/Vol] Low 7-38 [facility] Comment on above: Result Comment: <5 R esult rechecked. Performed By: #### C BCDIF, VPA, CMP #### [facility] [address] [place] [address] Albumin [Mass/Vol] 3.8 g/dL Low 3.9-4.9 [facility] Comment on above: Performed By: #### C BCDIF, VPA, CMP #### [facility] [address] [place], [place] [address] ALP [Catalytic activity/Vol] 68 U/L Normal 34-123 [facility] Comment on above: Performed By: #### C BCDIF, VPA, CMP #### [facility] [address] [place], [place] [address] Anion gap [Moles/Vol] 14 mmol/L Normal 9-18 [facility] Comment on above: Performed By: #### C BCDIF, VPA, CMP #### [facility] [address] [place], [place] [address] AST [Catalytic activity/Vol] 12 U/L Low 13-35 [facility] Comment on above: Performed By: #### C BCDIF, VPA, CMP #### [facility] [address] [place], [place] [address] Bilirubin Ql (U) 0.2 mg/dL Normal 0.2-1.3 [facility] Comment on above: Performed By: #### C BCDIF, VPA, CMP #### [facility] [address] [place], [place] [address] Calcium [Mass/Vol] 9.4 mg/dL Normal 8.5-10.2 [facility] Comment on above: Performed By: #### C BCDIF, VPA, CMP #### [facility] [address] [place], [place] [address] Chloride [Moles/Vol] 105 mmol/L Normal 97-105 [facility] Comment on above: Performed By: #### C BCDIF, VPA, CMP #### [facility] [address] [place], [place] [address] CO2 [Moles/Vol] 23 mmol/L Normal 22-30 [facility] Comment on above: Performed By: #### C BCDIF, VPA, CMP #### [facility] [address] [place], [place] [address] Creatinine [Mass/Vol] 0.97 mg/dL High 0.58-0.96 [facility] Comment on above: Performed By: #### C BCDIF, VPA, CMP #### [facility] [address] [place], [place] [address] eGFR- Amer. >60 Normal [facility] Comment on above: Performed By: #### C BCDIF, VPA, CMP #### [facility] [address] [place], [place] [address] GFR/1.73 sq M predicted among non-blacks MDRD (S/P/Bld) [Vol rate/Area] 59 . Normal [facility] Comment on above: Performed By: #### C BCDIF, VPA, CMP #### [facility] [address] [place], [place] [address] Glucose [Mass/Vol] 98 mg/dL Normal 74-99 [facility] Comment on above: Performed By: #### C BCDIF, VPA, CMP #### [facility] [address] [place], [place] [address] Potassium [Moles/Vol] 3.7 mmol/L Normal 3.7-5.1 [facility] Comment on above: Performed By: #### C BCDIF, VPA, CMP #### [facility] [address] [place], [place] [address] Protein [Mass/Vol] 6.9 g/dL Normal 6.3-8.0 [facility] Comment on above: Performed By: #### C BCDIF, VPA, CMP #### [facility] [address] [place], [place] [address] Sodium [Moles/Vol] 142 mmol/L Normal 136-144 [facility] Comment on above: Performed By: #### C BCDIF, VPA, CMP #### [facility] [address] [place], [place] [address] Urea nitrogen [Mass/Vol] 22 mg/dL High 7-21 [facility] Comment on above: Performed By: #### C BCDIF, VPA, CMP #### [facility] [address] [place] [address] Valproic Acidon 06-05-2019 Valproic Acid 78.6 ug/mL Normal 50-100 [facility] Comment on above: Performed By: #### C BCDIF, VPA, CMP #### [facility] [address] [place] [address] Valproic Acidon 09-07-2018 Valproic Acid 47.3 ug/mL Low 50-100 [facility] Comment on above: Performed By: #### V PA #### [facility] [address] [place] [id number] Vital Signs Date Time Vital Sign Value Performing Clinician Facility 08-29-2024 14:11-0400 Body temperature 98.1 [degF] Dr. Naye Sheets MD Work Phone: [facility] 08-29-2024 14:11-0400 Diastolic blood pressure 73 mm[Hg] Dr. Naye Sheets MD Work Phone: [facility] 08-29-2024 14:11-0400 Heart rate 86 /min Dr. Naye Sheets MD Work Phone: [facility] 08-29-2024 14:11-0400 Respiratory rate 18 /min Dr. Naye Sheets MD Work Phone: [facility] 08-29-2024 14:11-0400 SaO2% (BldA) [Mass fraction] 98 % Dr. Naye Sheets MD Work Phone: 4(775)375-454576 [place] [address] 08-29-2024 14:11-0400 Systolic blood pressure 103 mm[Hg] Dr. Naye Sheets MD Work Phone: 7(893)641-199276 [place] [address] 08-29-2024 05:27-0400 Body mass index (BMI) [Ratio] 26.7 kg/m2 Dr. Naye Sheets MD Work Phone: 3(147)024-773076 [place] [address] 08-29-2024 05:27-0400 Body weight 89.[address] Naye Sheets MD Work Phone: 7(850)532-009676 [place] [address] 08-28-2024 12:59-0400 Body height 182.[address] Naye Sehets MD Work Phone: 5(946)322-331576 [place] [address] 08-26-2024 20:00-0400 Diastolic blood pressure 74 mm[Hg] Dr. Naye Sheets MD Work Phone: 2(814)519-646276 [place] [address] 08-26-2024 20:00-0400 Heart rate 113 /min Dr. Naye Sheets MD Work Phone: 6(822)027-669476 [place] [address] 08-26-2024 20:00-0400 Respiratory rate 27 /min Dr. Naye Sheets MD Work Phone: 5(573)129-188976 [place] [address] 08-26-2024 20:00-0400 SaO2% (BldA) [Mass fraction] 99 % Dr. Naye Sheets MD Work Phone: 2(155)415-105676 [place] [address] 08-26-2024 20:00-0400 Systolic blood pressure 145 mm[Hg] Dr. Naye Sheets MD Work Phone: 3(713)224-627176 [place] [address] 08-26-2024 19:01-0400 Body temperature 98.5 [degF] Dr. Naye Sheets MD Work Phone: 5(010)426-592476 [place] [address] 08-26-2024 14:11-0400 Body height 182.[address] Naye Sheets MD Work Phone: 5(556)569-156576 [place] [address] 08-26-2024 14:11-0400 Body mass index (BMI) [Ratio] 25.4 kg/m2 Dr. Naye Sheets MD Work Phone: 4(612)653-149076 [place] [address] 08-26-2024 14:11-0400 Body weight 85.[address] Naye Sheets MD Work Phone: 9(968)221-503476 [place] [address] 07-23-2024 12:44-0400 Body mass index (BMI) [Ratio] 25.6 kg/m2 Dr. Naye Sheets MD Work Phone: 5(499)311-665476 [place] [address] 07-23-2024 12:44-0400 Body temperature 98.4 [degF] Dr. Naye Sheets MD Work Phone: 6(081)240-273076 [place] [address] 07-23-2024 12:44-0400 Body weight 85.[address] Naye Sheets MD Work Phone: 8(760)783-374576 [place] [address] 07-23-2024 12:44-0400 Diastolic blood pressure 87 mm[Hg] Dr. Naye Sheets MD Work Phone: 7(094)312-586676 [place] [address] 07-23-2024 12:44-0400 Heart rate 97 /min Dr. Naye Sheets MD Work Phone: 7(859)643-478376 [place] [address] 07-23-2024 12:44-0400 Respiratory rate 16 /min Dr. Naye Sheets MD Work Phone: 2(679)246-958176 [place] [address] 07-23-2024 12:44-0400 SaO2% (BldA) [Mass fraction] 96 % Dr. Naye Sheets MD Work Phone: 9(445)163-460276 [place] [address] 07-23-2024 12:44-0400 Systolic blood pressure 150 mm[Hg] Dr. Naye Sheets MD Work Phone: 3(199)719-196976 [place] [address] 06-13-2024 23:43-0500 Diastolic blood pressure 54 mm[Hg] Dr. Naye Sheets MD Work Phone: 5(358)282-866876 [place] [address] 06-13-2024 23:43-0500 Heart rate 65 /min Dr. Naye Sheets MD Work Phone: 6(883)291-881776 [place] [address] 06-13-2024 23:43-0500 Respiratory rate 18 /min Dr. Naye Sheets MD Work Phone: 4(392)012-321176 [place] [address] 06-13-2024 23:43-0500 SaO2% (BldA) [Mass fraction] 100 % Dr. Naye Sheets MD Work Phone: [facility] 06-13-2024 23:43-0500 Systolic blood pressure 70 mm[Hg] Dr. Naye Sheets MD Work Phone: [facility] 06-13-2024 23:25-0500 Body temperature 96.3 [degF] Dr. Naye Sheets MD Work Phone: [facility] 06-13-2024 22:40-0500 Inhaled oxygen concentration 100 % Dr. Naye Sheets MD Work Phone: [facility] 06-13-2024 15:45-0500 Body mass index (BMI) [Ratio] 22 kg/m2 Dr. Naye Sheets MD Work Phone: [facility] 06-13-2024 15:45-0500 Body weight 73.[address] Naye Sheets MD Work Phone: [facility] 11-15-2022 17:04-0400 Diastolic blood pressure 99 mm[Hg] [facility] 11-15-2022 17:04-0400 Heart rate 75 /min [facility] 11-15-2022 17:04-0400 Respiratory rate 18 /min [facility] 11-15-2022 17:04-0400 SaO2% (BldA) [Mass fraction] 96 % [facility] 11-15-2022 17:04-0400 Systolic blood pressure 149 mm[Hg] [facility] 11-15-2022 13:58-0400 Body mass index (BMI) [Ratio] 24.7 kg/m2 [facility] 11-15-2022 13:58-0400 Body weight 82.6 kg [facility] 11-15-2022 13:25-0400 Body height 182.88 cm [facility] 11-15-2022 13:25-0400 Body temperature 96.3 [degF] [facility] 10-13-2022 09:04-0400 Body height 180.3 cm Naye Sheets MD Work Phone: [facility] 10-13-2022 09:04-0400 Body temperature 98.49 [degF] Naye Sheets MD Work Phone: [facility] 10-13-2022 09:04-0400 Body weight 87.18 kg Naye Sheets MD Work Phone: [facility] 10-13-2022 09:04-0400 Diastolic blood pressure 80 mm[Hg] Naye Sheets MD Work Phone: [facility] 10-13-2022 09:04-0400 Heart rate 87 /min Naye Sheets MD Work Phone: [facility] 10-13-2022 09:04-0400 SaO2% (BldA) [Mass fraction] 97 % Naye Sheets MD Work Phone: [facility] 10-13-2022 09:04-0400 Systolic blood pressure 120 mm[Hg] Naye Sheets MD Work Phone: [facility] 08-09-2022 09:50-0400 Diastolic blood pressure 80 mm[Hg] Naye Sheets MD Work Phone: [facility] 08-09-2022 09:50-0400 Systolic blood pressure 120 mm[Hg] Naye Sheets MD Work Phone: [facility] 08-09-2022 09:16-0400 Body height 180.3 cm Naye Sheets MD Work Phone: [facility] 08-09-2022 09:16-0400 Body weight 84.37 kg Naye Sheets MD Work Phone: [facility] 08-09-2022 09:16-0400 Heart rate 120 /min Naye Sheets MD Work Phone: [facility] 08-09-2022 09:16-0400 SaO2% (BldA) [Mass fraction] 97 % Naye Sheets MD Work Phone: [facility] 06-20-2022 09:45-0500 Body height 182.88 cm Naye Sheets [facility] 06-20-2022 09:45-0500 Body mass index (BMI) [Ratio] 25.6 kg/m2 [facility] 06-20-2022 09:45-0500 Body temperature 97.1 [degF] [facility] 06-20-2022 09:45-0500 Body weight 85.72 kg [facility] 06-20-2022 09:45-0500 Diastolic blood pressure 76 mm[Hg] [facility] 06-20-2022 09:45-0500 Heart rate 87 /min [facility] 06-20-2022 09:45-0500 Respiratory rate 14 /min [facility] 06-20-2022 09:45-0500 SaO2% (BldA) [Mass fraction] 100 % [facility] 06-20-2022 09:45-0500 Systolic blood pressure 113 mm[Hg] [facility] 06-17-2022 04:42-0500 Body temperature 98.4 [degF] [facility] 06-17-2022 04:42-0500 Diastolic blood pressure 76 mm[Hg] [facility] 06-17-2022 04:42-0500 Heart rate 80 /min [facility] 06-17-2022 04:42-0500 Respiratory rate 18 /min [facility] 06-17-2022 04:42-0500 SaO2% (BldA) [Mass fraction] 100 % [facility] 06-17-2022 04:42-0500 Systolic blood pressure 137 mm[Hg] [facility] 06-10-2022 20:45-0500 Body height 182.88 cm [facility] 06-10-2022 20:45-0500 Body mass index (BMI) [Ratio] 24.1 kg/m2 [facility] 06-10-2022 20:45-0500 Body weight 80.73 kg [facility] 06-10-2022 19:29-0500 Body temperature 98.3 [degF] [facility] 06-10-2022 19:29-0500 Diastolic blood pressure 76 mm[Hg] [facility] 06-10-2022 19:29-0500 Heart rate 79 /min [facility] 06-10-2022 19:29-0500 Respiratory rate 18 /min [facility] 06-10-2022 19:29-0500 SaO2% (BldA) [Mass fraction] 100 % [facility] 06-10-2022 19:29-0500 Systolic blood pressure 178 mm[Hg] [facility] 06-10-2022 15:19-0500 Body height 182.88 cm [facility] 06-10-2022 15:19-0500 Body mass index (BMI) [Ratio] 24.4 kg/m2 [facility] 06-10-2022 15:19-0500 Body weight 81.64 [facility] [facility] 04-24-2022 14:10-0500 Body weight 86.18 kg Meenakshi Baker COLLECTIONS TECHNICIAN.QUARTER BACKER Work Phone: [facility] 04-24-2022 14:10-0500 Diastolic blood pressure 82 mm[Hg] Meenakshi Haagen COLLECTIONS TECHNICIAN.QUARTER BACKER Work Phone: [facility] 04-24-2022 14:10-0500 Heart rate 94 /min Meenakshi Haagen COLLECTIONS TECHNICIAN.QUARTER BACKER Work Phone: [facility] 04-24-2022 14:10-0500 Respiratory rate 18 /min Meenakshi Haagen COLLECTIONS TECHNICIAN.QUARTER BACKER Work Phone: [facility] 04-24-2022 14:10-0500 SaO2% (BldA) [Mass fraction] 98 % Meenakshi Hasho COLLECTIONS TECHNICIAN.QUARTER BACKER Work Phone: [facility] 04-24-2022 14:10-0500 Systolic blood pressure 122 mm[Hg] Meenakshi Haagen COLLECTIONS TECHNICIAN.QUARTER BACKER Work Phone: [facility] 11-23-2021 15:56-0400 Body weight 79.83 kg Naye Sheets MD Work Phone: [facility] 11-23-2021 15:56-0400 Diastolic blood pressure 78 mm[Hg] Naye Sheets MD Work Phone: [facility] 11-23-2021 15:56-0400 Heart rate 88 /min Naye Sheets MD Work Phone: [facility] 11-23-2021 15:56-0400 Systolic blood pressure 136 mm[Hg] Naye Sheets MD Work Phone: [facility] 11-10-2021 13:27-0400 Body temperature 98.91 [degF] Bronwyn Lundy COLLECTIONS TECHNICIAN.QUARTER BACKER Work Phone: [facility] 11-10-2021 13:27-0400 Body weight 80.74 kg Bronwyn Lundy COLLECTIONS TECHNICIAN.QUARTER BACKER Work Phone: [facility] 11-10-2021 13:27-0400 Diastolic blood pressure 80 mm[Hg] Bronwyn Lundy COLLECTIONS TECHNICIAN.QUARTER BACKER Work Phone: [facility] 11-10-2021 13:27-0400 Heart rate 85 /min Bronwyn Lundy COLLECTIONS TECHNICIAN.QUARTER BACKER Work Phone: [facility] 11-10-2021 13:27-0400 Respiratory rate 18 /min Bronwny Lundy COLLECTIONS TECHNICIAN.QUARTER BACKER Work Phone: [facility] 11-10-2021 13:27-0400 SaO2% (BldA) [Mass fraction] 97 % Bronwyn Lundy COLLECTIONS TECHNICIAN.QUARTER BACKER Work Phone: [facility] 11-10-2021 13:27-0400 Systolic blood pressure 122 mm[Hg] Bronwyn Lundy COLLECTIONS TECHNICIAN.QUARTER BACKER Work Phone: [facility] 10-03-2021 18:27-0400 Body temperature 98.29 [degF] Sarita Christa COLLECTIONS TECHNICIAN.QUARTER BACKER Work Phone: [facility] 10-03-2021 18:27-0400 Body weight 82.64 kg Sarita Christa COLLECTIONS TECHNICIAN.QUARTER BACKER Work Phone: [facility] 10-03-2021 18:27-0400 Diastolic blood pressure 68 mm[Hg] Sarita Christa COLLECTIONS TECHNICIAN.QUARTER BACKER Work Phone: [facility] 10-03-2021 18:27-0400 Heart rate 70 /min Sarita Christa COLLECTIONS TECHNICIAN.QUARTER BACKER Work Phone: [facility] 10-03-2021 18:27-0400 Respiratory rate 16 /min Sarita Christa COLLECTIONS TECHNICIAN.QUARTER BACKER Work Phone: [facility] 10-03-2021 18:27-0400 SaO2% (BldA) [Mass fraction] 99 % Sarita Christa COLLECTIONS TECHNICIAN.QUARTER BACKER Work Phone: [facility] 10-03-2021 18:27-0400 Systolic blood pressure 118 mm[Hg] Sarita Christa COLLECTIONS TECHNICIAN.QUARTER BACKER Work Phone: [facility] 08-05-2021 08:11-0400 Body temperature 98.91 [degF] Naye Sheets MD Work Phone: [facility] 08-05-2021 08:11-0400 Body weight 81.65 kg Naye Sheets MD Work Phone: [facility] 08-05-2021 08:11-0400 Diastolic blood pressure 70 mm[Hg] Naye Sheets MD Work Phone: [facility] 08-05-2021 08:11-0400 Heart rate 100 /min Naye Sheets MD Work Phone: [facility] 08-05-2021 08:11-0400 Respiratory rate 16 /min Naye Sheets MD Work Phone: [facility] 08-05-2021 08:11-0400 Systolic blood pressure 110 mm[Hg] Naye Sheets MD Work Phone: [facility] Encounters Encounter Date Encounter Type Care Provider Facility Start: 10-20-2024 ambulatory [facility] Facility:[facility] Start: 10-10-2024 ambulatory [facility] Facility:[facility] Start: 10-03-2024 ambulatory [facility] Facility:[facility] Start: 10-02-2024 ambulatory Fermin Reyes y:[facility] Start: 10-02-2024 End: 10-03-2024 Evaluation and management of inpatient No Primary Care Physician Facility:[facility] Start: 08-29-2024 Non-patient / Non-visit Dr. Madison Lopez MD -[facility] Work Phone: Start: 08-28-2024 ambulatory Jerry Lopez Facility: [facility] Start: 08-28-2024 Non-patient / Non-visit Troy Wiley nd, DO -[facility] Start: 08-28-2024 Non-patient / Non-visit Dr. Jake GASTON -[facility] Work Phone: Start: 08-28-2024 End: 08-28-2024 ambulatory Jose Hsieh Facility:[facility] Start: 08-27-2024 Non-patient / Non-visit Dr. Jake GASTON -[facility] Work Phone: Start: 08-26-2024 ambulatory Tiff Ramires Facility :[facility] Start: 08-26-2024 End: 08-29-2024 Evaluation and management of inpatient Dr. Tiff Ramires MD -[facility] 2 Work Phone: Start: 08-20-2024 End: 08-20-2024 Telephone encounter Naye Sheets MD Work Phone: [facility] Comment on above: FYI-No Action Needed reschedule appt from shelter visit Start: 08-19-2024 End: 09-19-2024 ambulatory Naye Sheets MD Work Phone: [facility] Start: 07-30-2024 End: 08-06-2024 Telephone encounter Naye Sheets MD Work Phone: [facility] Comment on above: Patient Update Start: 07-29-2024 End: 07-30-2024 Telephone encounter Dianne FRANCOIS Navigation Comment on above: Patient Update Start: 07-28-2024 End: 07-28-2024 Telephone encounter Naye Sheets MD Work Phone: [facility] Comment on above: FYI-No Action Needed Start: 07-23-2024 End: 07-23-[address] Jerry Lopez MD -[facility] Work Phone: Start: 07-23-2024 End: 07-23-2024 ambulatory Naye Sheets Facility:[facility] Start: 07-17-2024 End: 07-17-2024 Telephone encounter Naye Sheets MD Work Phone: NOC Comment on above: Transition Of Care ( Exclusion (SNF)) Start: 07-08-2024 End: 07-08-2024 Telephone encounter Naye Sheets MD Work Phone: [facility] Comment on above: Transition Of Care Start: 07-01-2024 End: 07-01-2024 Telephone encounter Naye Sheets MD Work Phone: [facility] Comment on above: Transition Of Care Start: 06-30-2024 End: 06-30-2024 [facility] Start: 06-14-2024 End: 06-28-2024 Evaluation and management of inpatient [facility] Facility:[facility] Start: 06-13-2024 End: 06-14-2024 Emergency department patient visit Dr. Jose Rodriguez MD -Emergency Department Work Phone: Start: 06-13-2024 End: 06-19-2024 ambulatory Chidi Abad QUARTER BACKER Work Phone: Critical Care Start: 06-13-2024 End: 06-19-2024 Telephone encounter Dianne FRANCOIS Navigation Comment on above: Patient Update Start: 05-19-2024 End: 05-19-2024 ambulatory Naye Sheets MD Work Phone: [facility] Comment on above: NO SHOW (Primary Dx) Start: 05-19-2024 End: 05-19-2024 Telemedicine consultation with patient Naye Sheets MD Work Phone: [facility] Start: 04-21-2024 End: 04-21-2024 [facility]ulatory [facility] Start: 04-21-2024 End: 04-21-2024 Patient encounter procedure Andry Richardson MA [facility] Comment on above: Population Health Na vigation Outreach ([facility] [place] [facility] /) Start: 03-20-2024 End: 03-20-2024 Telephone encounter Naye Sheets MD Work Phone: [address] [place] [address] Comment on above: Patient Update Start: 03-12-2024 End: 03-12-2024 Telephone encounter Naye Sheets MD Work Phone: [facility] [place] Comment on above: Appointment Start: 02-18-2024 End: 02-18-2024 Telephone encounter Naye Sheets MD Work Phone: [facility] [place] Comment on above: Forms Start: 02-14-2024 End: 02-14-2024 Telephone encounter Naye Sheets MD Work Phone: [facility] [place] Comment on above: Letter (No show amaris er #2) Start: 02-11-2024 End: 02-11-2024 Telephone encounter Naye Sheets MD Work Phone: [facility] [place] Comment on above: Letter (No show amaris er #1) Start: 02-10-2024 End: 02-11-2024 Refill Naye Sheets MD Work Phone: [facility] [place] Comment on above: Med Change Request Start: 02-01-2024 End: 02-01-2024 ambulatory [facility]ilar [facility] Start: 02-01-2024 End: 02-01-2024 Patient encounter procedure Elida Aguilar [facility] Comment on above: Population Health Na vigation Outreach ([facility] - [facility]) Start: 01-24-2024 End: 01-28-2024 Telephone encounter Dianne FRANCOIS Navigation Comment on above: Patient Update Start: 12-03-2023 ambulatory Elida grijalva [facility] Start: 12-03-2023 Patient encounter procedure Elida Aguilar MA [facility] Comment on above: Population Health Na vigation Outreach ([facility] ) Start: 10-02-2023 ambulatory Monica Valerio [facility] Start: 10-02-2023 Patient encounter procedure Monica Valerio MA [facility] Comment on above: Population Health Na vigation Outreach ([place] [facility]/HCC and care gaps ) Start: 09-21-2023 Telephone encounter Naye Sheets MD Work Phone: [facility] Comment on above: Patient Update Start: 09-19-2023 ambulatory Naye Sheets MD Work Phone: [facility] [place] Start: 03-19-2023 Telephone encounter Naye Sheets MD Work Phone: [facility] Comment on above: Orders Start: 03-02-2023 Refill Naye Sheets MD Work Phone: [facility] Comment on above: Refill Request Start: 11-30-2022 Orders Only Kristina manning MD Work Phone: Ambulatory Surgery Comment on above: Anemia, unspecified type (Primary Dx) Start: 11-15-2022 End: 11-15-2022 Emergency department patient visit [facility] Work Phone: Start: 11-08-2022 End: 11-08-2022 Nursing evaluation of patient and report Mi Nurse Work Phone: [facility] Comment on above: Vitamin B12 deficien cy (Primary Dx) Start: 10-13-2022 End: 10-13-2022 Subsequent hospital visit by physician [facility] Work Phone: Radiology Comment on above: Bronchitis [J40] Start: 10-13-2022 End: 10-13-2022 Patient encounter procedure Naye Sheets MD Work Phone: [facility] Comment on above: Bronchitis (Primary Dx); Screening for malignant neoplasm of cervix; Encounter for screening mammogram for malignant neoplasm of breast Start: 08-31-2022 End: 08-31-2022 ambulatory [facility] Work Phone: Start: 08-31-2022 End: 08-31-2022 Discharged Recurring [facility]Physical Therapy Start: 08-22-2022 ambulatory NAYE SHEETS Facility :[facility] Start: 08-22-2022 End: 08-22-2022 Subsequent hospital visit by physician [facility] 2 Work Phone: Radiology Comment on above: Arm mass, left [R22. 32] Start: 08-14-2022 Telephone encounter Naye Sheets MD Work Phone: [facility] Comment on above: Results Start: 08-11-2022 End: 08-11-2022 [facility] Comment on above: Effusion of left elb ow [M25.422] Start: 08-10-2022 Telephone encounter Naye Sheets MD Work Phone: [facility] Comment on above: Results Start: 08-09-2022 End: 08-09-2022 Subsequent hospital visit by physician [facility] Work Phone: Radiology Comment on above: Left arm pain [M79.6 02] Start: 08-09-2022 End: 08-09-2022 Patient encounter procedure Naye Sheets MD Work Phone: [facility] Comment on above: Vitamin B12 deficien cy (Primary Dx); Folate deficiency; Iron deficiency anemia, unspecified iron deficiency anemia type; Closed fracture of left hip with routine healing, subsequent encounter; Hypothyroidism, unspecified type; Hypomagnesemia; Hypokalemia; Screening breast examination; Bipolar 1 disorder, mixed (HCC); Left arm pain; Arm mass, left Start: 08-07-2022 Telephone encounter Naye Sheets MD Work Phone: [facility] Comment on above: Prescription Refills (Handicap Placard) Start: 06-20-2022 End: 06-20-2022 Emergency department patient visit [facility] Start: 06-16-2022 Telephone encounter Naye Sheets MD Work Phone: [facility] Comment on above: Home Health Orders Start: 06-16-2022 Non-patient / Non-visit [facility] Start: 06-15-2022 Non-patient / Non-visit [facility] Start: 06-14-2022 Non-patient / Non-visit [facility] Start: 06-13-2022 Non-patient / Non-visit [facility] Start: 06-12-2022 Telephone encounter Naye Sheets MD Work Phone: [facility] Comment on above: Patient update/fall Start: 06-12-2022 Non-patient / Non-visit [facility] Start: 06-11-2022 Non-patient / Non-visit [facility] Start: 06-10-2022 End: 06-17-2022 [facility] Start: 04-28-2022 Telephone encounter Meenakshi berkowitz APRN.QUARTER BACKER Work Phone: [facility] Comment on above: Results Start: 04-25-2022 Telephone encounter Meenakshi berkowitz APRN.QUARTER BACKER Work Phone: [facility] Comment on above: Results; Orders Start: 04-24-2022 End: 04-24-2022 Office outpatient visit 25 minutes Meenakshi Baker APRN.QUARTER BACKER Work Phone: [facility] Comment on above: Near syncope (Primar y Dx); Fatigue, unspecified type; Elevated glucose; Symptoms of upper respiratory infection (URI) Start: 03-13-2022 Telephone encounter Naye Sheets MD Work Phone: [facility] Comment on above: Forms Start: 03-10-2022 Telephone encounter [facility] Comment on above: DME for depends Start: 01-30-2022 Telephone encounter [facility] MD [facility] Comment on above: Orders (labs) Start: 01-19-2022 ambulatory [facility] Comment on above: Pain Start: 12-12-2021 Telephone encounter Naye Sheets MD Work Phone: [facility] [place] Comment on above: Covid Vaccination Re cords Start: 11-23-2021 End: 11-23-2021 Patient encounter procedure Naye Sheets MD Work Phone: [facility] [place] Comment on above: Peptic ulcer disease (Primary Dx); Moderate dysplasia of cervix; Female stress incontinence; Gastrointestinal hemorrhage, unspecified gastrointestinal hemorrhage type; Hypothyroidism, unspecified type; Screening breast examination Start: 11-10-2021 End: 11-10-2021 Patient encounter procedure Bronwyn Lundy COLLECTIONS TECHNICIAN.QUARTER BACKER Work Phone: [facility] Comment on above: Acute otitis media, left (Primary Dx); URI, acute Start: 10-07-2021 Telephone encounter Naye Sheets MD Work Phone: [facility] [place] Comment on above: Patient Request; Pat ient Question Start: 10-05-2021 Telephone encounter Naye Sheets MD Work Phone: [facility] [place] Comment on above: fax coming from Kalpesh Baker Start: 10-03-2021 End: 10-03-2021 Patient encounter procedure Sarita Goodwin COLLECTIONS TECHNICIAN.QUARTER BACKER Work Phone: [facility] Comment on above: Swelling of left mary e of face (Primary Dx) Start: 09-26-2021 Telephone encounter Naye Sheets MD Work Phone: [facility] [place] Comment on above: Letter Start: 08-08-2021 Telephone encounter Naye Sheets MD Work Phone: [facility] Comment on above: Results Start: 08-05-2021 End: 08-05-2021 Patient encounter procedure Naye Sheets MD Work Phone: [facility] Comment on above: Hypothyroidism, unsp ecified type (Primary Dx); 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 Naye jolly MD Work Phone: Start: 08-28-[address] Naye jolly MD Work Phone: Start: 08-26-2024 Plain x-ray of pelvis and lower extremity Dr. Naye Sheets MD Work Phone: Start: 08-26-2024 Computed tomography of abdomen and pelvis with intravenous contrast Dr. Naye Sheets MD Work Phone: Start: 08-26-[address] Naye Sheets MD Work Phone: Start: 06-15-2024 Electrocardiogram [facility] Start: 06-14-2024 Echocardiography [facility] Start: 06-14-2024 Antibody screen [facility] Comment on above: Order Comment: Specimen Type: BLOOD SPEC IMENOrdering Facility: [facility] Address: [address] [place] [address] Performed By: #### T SCR ####[facility]ANKCL[facility] [id number] [place] [address] [place] Start: 06-14-2024 Gluc bld gluc mntr dev cleared fda spec home use [facility] Provider Start: 06-13-2024 Plain X-ray abdomen Dr. Naye Sheets MD Work Phone: Start: 06-13-2024 Plain chest X-ray Dr. Naye Sheets MD Work Phone: Start: 06-13-2024 CT of head without contrast Dr. Naye Sheets MD Work Phone: Start: 06-13-2024 CT of thorax, abdomen and pelvis with contrast Dr. Naye Sheets MD Work Phone: Start: 06-13-2024 Bacteria identified in Blood by Culture Dr. Naye Sheets MD Work Phone: Start: 06-13-[address] Naye Sheets MD Work Phone: Start: 06-13-2024 Measurement of occult blood in stool specimen using immunoassay Dr. Naye Sheets MD Work Phone: Start: 06-13-2024 SARS-CoV-2, Influenza & RSV (PCR) Dr. Surya Sheets MD Work Phone: Start: 06-13-[address] Naye Sheets MD Work Phone: Start: 11-15-2022 X-ray of chest posteroanterior view Start: 10-13-2022 Radiologic exam chest 2 views Naye Sheets MD Work Phone: Start: 08-22-2022 Us lmtd joint/oth nonvasc xtr strux r-t w/img aNye Sheets MD Work Phone: Start: 08-11-2022 Radex elbow 2 views Naye Sheets MD Work Phone: Start: 08-09-2022 Radex humerus minimum 2 views Naye Sheets MD Work Phone: Start: 06-11-2022 ORIF, Hip, Benjamin and Nephew (Left) Abdullahi Sheets Start: 06-11-2022 Plain X-ray of hip Naye Sheets Start: 06-11-2022 Fluoroscopic guidance Naye Sheets Start: 06-11-2022 Plain x-ray of pelvis and lower extremity Naye Sheets Start: 06-10-2022 Plain X-ray of femur Start: 06-10-2022 Pelvis X-ray Start: 04-24-2022 Ecg routine ecg w/least 12 lds i&r only [facility] Provider Start: 11-23-2021 Adult depression screening assessment Naye Sheets MD Work Phone: Start: 08-05-2021 Lipid 1996 panel - Serum or Plasma Abdullahi Sheets MD Work Phone: Start: 03-24-2019 Colonoscopy Naye Sheets MD Work Phone: Start: 03-07-2019 Adult depression screening assessment Naye Sheets MD Work Phone: Start: 05-28-2014 Mammography Naye Sheets MD Work Phone: Measurement of occul t blood in stool specimen using immunoassay Naye Sheets Plan of Treatment Date Care Activity Detail Author Start: 2033 RSV Vaccine (1 - 1-dose 75+ series) RSV Vaccine (1 - 1-dose 75+ series) [facility] Start: 08-11-2032 Urine microalbumin profile DTaP,Tdap,Td Vaccine (3 - Td or Tdap) [facility] Start: 06-28-2027 Diabetes Screening Diabetes Screening [facility] Start: 06-18-2027 Diabetes Screening Diabetes Screening [facility] Start: 08-05-2026 Lipid 1996 panel - Serum or Plasma Lipid Screening [facility] Start: 08-05-2026 Lipid panel Lipid Screening [facility] Start: 08-05-2026 LIPID SCREEN LIPID SCREEN [facility] Start: 08-09-2025 DIABETES SCREEN DIABETES SCREEN [facility] Start: 08-09-2025 Diabetes Screening Diabetes Screening [facility] Start: 05-19-2025 Annual PCP Team Chronic Disease Visit Annual PCP Team Chronic Disease Visit [facility] Start: 04-26-2025 DIABETES SCREEN DIABETES SCREEN [facility] Start: 01-12-2025 Influenza vaccination Influenza Vaccine (Season Ended) [facility] Start: 09-10-2024 End: 09-10-2024 Patient encounter procedure 09/10/2024 2:30 PM EDT [facility] [address] [place] [id number] Bernardo Carr MD 1 [facility] [address] [place], [place] [id number] upper gi bleed [facility] Comment on above: upper gi bleed Start: 08-29-2024 Patient discharge [facility] Start: 08-29-2024 [facility] Start: 08-27-2024 Speech therapy assessment [facility] Start: 08-27-2024 Care planning and problem solving actions [facility] Start: 08-27-2024 Referral to occupational therapist [facility] Start: 08-27-2024 Referral to service [facility] Start: 08-27-2024 [facility] Start: 08-26-2024 Application of intermittent pneumatic compression device [facility] Start: 08-26-2024 Following clinical pathway protocol [facility] Start: 08-26-2024 Assessment of risk of venous thromboembolism [facility] Start: 08-26-2024 Fall prevention [facility] Start: 08-26-2024 Incentive spirometry [facility] Start: 08-26-[address] [facility] Start: 08-26-2024 Insertion of catheter into peripheral vein [facility] Start: 08-26-2024 Introduction of urinary catheter [facility] Start: 08-26-2024 Measuring intake and output [facility] Start: 08-26-2024 Oxygen therapy [facility] Start: 08-26-2024 [facility] Start: 08-26-2024 Providing care according to standard [facility] Start: 08-26-2024 Provision of activity privileges [facility] Start: 08-26-2024 Referral to gastroenterology service [facility] Start: 08-26-2024 Referral to service [facility] Start: 08-26-2024 End: 08-26-2024 [facility] Start: 08-26-2024 Admission procedure [facility] Start: 08-26-2024 Verification routine [facility] Start: 08-26-2024 Bacteria identified in Urine by Culture Urine Culture [facility] Start: 08-26-2024 Patient [facility] to [facility] Start: 08-26-2024 [facility] Start: 08-07-2024 End: 08-07-2024 Patient encounter procedure 08/07/2024 3:00 PM EDT Office Visit [facility] [address] [place] [address] Natalie Kirkpatrick APRN.QUARTER BACKER [address] [place] [address] follow up from [facility](discharged on 07/25) for / for GI issue [facility] Comment on above: follow up from [facility] (discharged on 07/25) for / for GI issue Start: 08-05-2024 DIABETES SCREEN DIABETES SCREEN [facility] Start: 07-31-2024 End: 07-31-2024 Patient encounter procedure 07/31/2024 2:40 PM EDT Office Visit Family [facility] [address] [facility] [place] [address] Natalie Kirkpatrick, COLLECTIONS TECHNICIAN.QUARTER BACKER [address] [place] [address] follow up from [facility](discharged on 07/25) for / for GI issue [facility] Comment on above: follow up from [facility] (discharged on 07/25) for / for GI issue Start: 06-13-2024 Administration of blood product [facility] Start: 06-13-2024 [facility] Start: 06-13-2024 Airway suction technique [facility] Start: 06-13-2024 Administration of blood product [facility] Start: 06-13-2024 [facility] Start: 06-13-2024 [facility] Start: 05-14-2024 Advance Directive Discussion Advance Directive Discussion [facility] Start: 03-27-2024 End: 03-27-2024 Patient encounter procedure 03/27/2024 3:00 PM EST Office Visit Family iRcha Carlos [address] [facility] [place] [address] orders for pure wick Family Richa Carlos Comment on above: orders for pure wick Start: 03-18-2024 End: 03-18-2024 Patient encounter procedure 03/18/2024 11:00 AM EST Office Visit Family Richa [facility] [address] [facility] [place] [address] Natalie Kirkpatrick, COLLECTIONS TECHNICIAN.QUARTER BACKER [address] [facility] [place] [address] Orders for Pure Wick. Not seen for 1 year. Family Richa Carlos Comment on above: Orders for Pure Wick. Not seen for 1 kamaljit dickson Start: 02-14-2024 End: 02-14-2024 Patient encounter procedure 02/14/2024 1:20 PM EDT Office Visit Family Richa Carlos [address] [facility] [place] [address] Natalie Kirkpatrick APRN.QUARTER BACKER [address] [facility] [place] [id number] follow up Family Medicine Breanna Comment on above: follow up Start: 02-11-2024 End: 02-11-2024 Patient encounter procedure 02/11/2024 6:20 PM EDT Office Visit Family [facility] [place] [address] [facility] [place], [place] [id number] Naye Sheets MD [address] [facility] [place] [place] [id number] Medicare Wellness [facility] Comment on above: Medicare Wellness Start: 01-13-2024 Covid-19 Vaccine () Covid-19 Vaccine () [facility] Start: 01-13-2024 Covid-19 Vaccine () Covid-19 Vaccine () [facility] Start: 01-13-2024 Influenza vaccination [facility] Start: 12-01-2023 End: 12-01-2023 COLONOSCOPY DIAGNOSTIC COLONOSCOPY DIAGNOSTIC Endoscopy Routine Anemia, unspecified type Expected: 12/01/2023, Expires: 12/01/2023 [facility] Work Phone: Comment on above: Expected: 12/01/2023, Expires: Start: 10-14-2023 ANNUAL PCP TEAM CHRONIC DISEASE VISIT ANNUAL PCP TEAM CHRONIC DISEASE VISIT [facility] Start: 09-07-2023 Advance Directive Discussion Advance Directive Discussion [facility] Start: 09-07-2023 Pneumococcal Vaccine: 65+ (2 of 2 - PCV) Pneumococcal Vaccine: 65+ (2 of 2 - PCV) [facility] Start: 09-07-2023 Screening for osteoporosis Bone Density Screening [facility] Start: 08-10-2023 ANNUAL PCP TEAM CHRONIC DISEASE VISIT ANNUAL PCP TEAM CHRONIC DISEASE VISIT [facility] Start: 08-10-2023 COVID-19 VACCINE (4 - Booster for Pfizer series) COVID-19 VACCINE (4 - Booster for Pfizer series) [facility] Comment on above: Postponed from 03/01/2022 (Declined at t his time) Start: 08-10-2023 COVID-19 VACCINE (5 - Pfizer series) COVID-19 VACCINE (5 - Pfizer series) [facility] Comment on above: Postponed from 03/01/2022 (Declined at t his time) Start: 08-10-2023 SHINGRIX VACCINE (2 of 2) SHINGRIX VACCINE (2 of 2) [facility] Comment on above: Postponed from 03/01/2022 (Declined at t his time) Start: 08-10-2023 Urine microalbumin profile [facility] Comment on above: Postponed from 12/09/2020 (Declined at t his time) Start: 04-24-2023 ANNUAL PCP TEAM CHRONIC DISEASE VISIT ANNUAL PCP TEAM CHRONIC DISEASE VISIT [facility] Start: 03-19-2023 End: 06-18-2023 25-hydroxyvitamin D3 [Mass/volume] in Serum or Plasma VITAMIN D 25 HYDROXY Lab Routine Vitamin D deficiency Expected: 03/19/2023, Expires: 06/18/2023 [facility] Work Phone: Comment on above: Expected: 03/19/2023, Expires: 4 Start: 03-19-2023 End: 06-18-2023 CBC panel - Blood by Automated count CBC Lab Routine Bipolar 1 disorder, mixed (HCC) Expected: 03/19/2023, Expires: 06/18/2023 [facility] Work Phone: Comment on above: Expected: 03/19/2023, Expires: 4 Start: 03-19-2023 End: 06-18-2023 Comprehensive metabolic 2000 panel - Serum or Plasma COMP METABOLIC PANEL Lab Routine Bipolar 1 disorder, mixed (HCC) Hypothyroidism, unspecified type Expected: 03/19/2023, Expires: 06/18/2023 [facility] Work Phone: Comment on above: Expected: 03/19/2023, Expires: 4 Start: 03-19-2023 End: 06-18-2023 Magnesium [Mass/volume] in Serum or Plasma MAGNESIUM BLD Lab Routine Hypomagnesemia Expected: 03/19/2023, Expires: 06/18/2023 [facility] Work Phone: Comment on above: Expected: 03/19/2023, Expires: 4 Start: 01-12-2023 Covid-19 Vaccine ( season) Covid-19 Vaccine ( season) [facility] Start: 01-12-2023 Influenza vaccination [facility] Start: 11-23-2022 Adult depression screening assessment DEPRESSION SCREENING [facility] Start: 11-23-2022 ANNUAL PCP TEAM CHRONIC DISEASE VISIT ANNUAL PCP TEAM CHRONIC DISEASE VISIT [facility] Start: 11-06-2022 LIPID SCREEN LIPID SCREEN [facility] Start: 08-10-2022 End: 10-10-2022 Hemoglobin A1c in Blood HGB A1C Lab Routine Hyperglycemia Expected: 08/10/2022, Expires: 10/10/2022 [facility] Work Phone: Comment on above: Expected: 08/10/2022, Expires: 3 Start: 08-10-2022 End: 10-10-2022 Magnesium [Mass/volume] in Serum or Plasma MAGNESIUM BLD Lab Routine Hypomagnesemia Expected: 08/10/2022, Expires: 10/10/2022 [facility] Work Phone: Comment on above: Expected: 08/10/2022, Expires: 3 Start: 08-09-2022 End: 10-09-2022 Basic metabolic 2000 panel - Serum or Plasma [facility] Work Phone: Comment on above: Expected: 08/09/2022, Expires: 3 Start: 08-09-2022 End: 10-09-2022 Cobalamin (Vitamin B12) [Mass/volume] in Serum or Plasma [facility] Work Phone: Comment on above: Expected: 08/09/2022, Expires: 3 Start: 08-09-2022 End: 10-09-2022 Folate [Mass/volume] in Serum or Plasma [facility] Work Phone: Comment on above: Expected: 08/09/2022, Expires: 3 Start: 08-09-2022 End: 10-09-2022 Iron and Iron binding capacity panel - Serum or Plasma [facility] Work Phone: Comment on above: Expected: 08/09/2022, Expires: 3 Start: 08-09-2022 End: 10-09-2022 Magnesium [Mass/volume] in Serum or Plasma [facility] Work Phone: Comment on above: Expected: 08/09/2022, Expires: 3 Start: 08-05-2022 ANNUAL PCP TEAM CHRONIC DISEASE VISIT ANNUAL PCP TEAM CHRONIC DISEASE VISIT [facility] Start: 06-16-2022 Referral to service [facility] Start: 06-16-2022 Patient discharge [facility] Start: 06-15-2022 Care planning and problem solving actions [facility] Start: 06-14-2022 Administration of blood product [facility] Start: 06-11-2022 Provision of overbed trapeze [facility] Start: 06-11-2022 End: 06-11-2022 [facility] Start: 06-11-2022 Ambulation therapy management [facility] Start: 06-11-2022 Application of device [facility] Start: 06-11-2022 Assessment of risk of venous thromboembolism [facility] Start: 06-11-2022 Catheterization of vein [facility] Start: 06-11-2022 Exercises [facility] Start: 06-11-2022 Following clinical pathway protocol [facility] Start: 06-11-2022 Introduction of urinary catheter [facility] Start: 06-11-2022 Measuring intake and output [facility] Start: 06-11-2022 Neurovascular assessment [facility] Start: 06-11-2022 Patient education [facility] Start: 06-11-2022 Procedure discontinued [facility] Start: 06-11-2022 Provision of activity privileges [facility] Start: 06-11-2022 Referral to occupational therapist [facility] Start: 06-11-2022 Referral to service [facility] Start: 06-11-2022 Vital signs measurements [facility] Start: 06-11-2022 Wound care [facility] Start: 06-11-2022 Administration of blood product [facility] Start: 06-11-2022 Application of intermittent pneumatic compression device [facility] Start: 06-11-2022 Troponin I measurement [facility] Start: 06-10-2022 Application of intermittent pneumatic compression device [facility] Start: 06-10-2022 Following clinical pathway protocol [facility] Start: 06-10-2022 Assessment of risk of venous thromboembolism [facility] Start: 06-10-2022 Consultation [facility] Start: 06-10-2022 Insertion of catheter into peripheral vein [facility] Start: 06-10-2022 Providing care according to standard [facility] Start: 06-10-2022 Provision of activity privileges [facility] Start: 06-10-2022 Referral to occupational therapist [facility] Start: 06-10-2022 Referral to service [facility] Start: 06-10-2022 Chart related administrative procedure [facility] Start: 06-10-2022 Electrocardiographic procedure [facility] Start: 06-10-2022 Troponin I measurement [facility] Start: 06-10-2022 End: 06-10-2022 [facility] Start: 06-10-2022 Verification routine [facility] Start: 06-10-2022 Admission procedure [facility] Start: 06-10-2022 Application of ice collar, cap or bag [facility] Start: 06-04-2022 DIABETES SCREEN DIABETES SCREEN [facility] Start: 05-14-2022 DEPRESSION ASSESSMENT DEPRESSION ASSESSMENT [facility] Start: 05-06-2022 COVID-19 VACCINE (4 - Booster for Pfizer series) COVID-19 VACCINE (4 - Booster for Pfizer series) [facility] Start: 04-28-2022 End: 06-28-2022 Basic metabolic 2000 panel - Serum or Plasma BASIC METABOLIC PNL Lab Routine Anemia, unspecified type Expected: 04/28/2022, Expires: 06/28/2022 [facility] Work Phone: Comment on above: Expected: 04/28/2022, Expires: Start: 04-28-2022 End: 06-28-2022 CBC W Auto Differential panel - Blood CBC + DIFF Lab Routine Anemia, unspecified type Expected: 04/28/2022, Expires: 06/28/2022 [facility] Work Phone: Comment on above: Expected: 04/28/2022, Expires: 3 Start: 04-28-2022 End: 06-28-2022 Magnesium [Mass/volume] in Serum or Plasma MAGNESIUM BLD Lab Routine Hypomagnesemia Expected: 04/28/2022, Expires: 06/28/2022 [facility] Work Phone: Comment on above: Expected: 04/28/2022, Expires: 3 Start: 04-24-2022 End: 06-24-2022 CBC W Auto Differential panel - Blood [facility] Work Phone: Comment on above: Expected: 04/24/2022, Expires: 3 Start: 04-24-2022 End: 06-24-2022 Comprehensive metabolic 2000 panel - Serum or Plasma [facility] Work Phone: Comment on above: Expected: 04/24/2022, Expires: 3 Start: 04-24-2022 End: 06-24-2022 Hemoglobin A1c in Blood [facility] Work Phone: Comment on above: Expected: 04/24/2022, Expires: 3 Start: 04-24-2022 End: 06-24-2022 Magnesium [Mass/volume] in Serum or Plasma [facility] Work Phone: Comment on above: Expected: 04/24/2022, Expires: 3 Start: 04-24-2022 End: 06-24-2022 Thyrotropin [Units/volume] in Serum or Plasma [facility] Work Phone: Comment on above: Expected: 04/24/2022, Expires: 3 Start: 03-24-2022 Colonoscopy COLONOSCOPY [facility] Start: 03-24-2022 COLORECTAL CANCER SCREENING COLORECTAL CANCER SCREENING [facility] Start: 03-24-2022 Screening for malignant neoplasm of colon [facility] Start: 03-01-2022 COVID-19 VACCINE (4 - Booster for Pfizer series) COVID-19 VACCINE (4 - Booster for Pfizer series) [facility] Start: 03-01-2022 SHINGRIX VACCINE (2 of 2) SHINGRIX VACCINE (2 of 2) [facility] Start: 01-12-2022 Influenza vaccination [facility] Start: 08-08-2021 End: 10-08-2021 POTASSIUM BLD POTASSIUM BLD Lab Routine Hypokalemia Expected: 08/08/2021, Expires: 10/08/2021 [facility] Work Phone: Comment on above: Expected: 08/08/2021, Expires: 2 Start: 08-05-2021 End: 10-05-2021 CBC W Auto Differential panel - Blood [facility] Work Phone: Comment on above: Expected: 08/05/2021, Expires: 2 Start: 08-05-2021 End: 10-05-2021 Comprehensive metabolic 2000 panel - Serum or Plasma [facility] Work Phone: Comment on above: Expected: 08/05/2021, Expires: 2 Start: 08-05-2021 End: 10-05-2021 Hepatitis C virus Ab [Presence] in Serum [facility] Work Phone: Comment on above: Expected: 08/05/2021, Expires: 2 Start: 08-05-2021 End: 10-05-2021 HIV 1+2 Ab [Presence] in Serum or Plasma by Immunoassay [facility] Work Phone: Comment on above: Expected: 08/05/2021, Expires: 2 Start: 08-05-2021 End: 10-05-2021 LIPID PANEL, NONFASTING [facility] Work Phone: Comment on above: Expected: 08/05/2021, Expires: 2 Start: 08-05-2021 End: 10-05-2021 Thyrotropin [Units/volume] in Serum or Plasma [facility] Work Phone: Comment on above: Expected: 08/05/2021, Expires: 2 Start: 05-14-2021 DEPRESSION ASSESSMENT DEPRESSION ASSESSMENT [facility] Start: 02-01-2021 COVID-19 VACCINE (3 - Booster for Pfizer series) COVID-19 VACCINE (3 - Booster for Pfizer series) [facility] Start: 01-12-2021 Influenza vaccination INFLUENZA (#1) [facility] Start: 12-09-2020 Urine microalbumin profile DTAP,TDAP,TD (2 - Td or Tdap) [facility] Start: 03-07-2020 Adult depression screening assessment DEPRESSION SCREENING [facility] Start: 11-21-2018 FECAL OCCULT BLOOD FECAL OCCULT BLOOD [facility] Start: 11-21-2018 Screening for malignant neoplasm of colon Fecal Occult Blood [facility] Start: 2018 RSV Vaccine (1 - 1-dose 60+ series) RSV Vaccine (1 - 1-dose 60+ series) [facility] Start: 01-14-2016 PAP TESTING PAP TESTING [facility] Start: 05-28-2015 Mammography [facility] Start: 05-28-2015 Screening for malignant neoplasm of breast Mammogram Screening [facility] Start: 02-24-2014 Pneumococcal Vaccine: 50+ (2 of 2 - PCV) Pneumococcal Vaccine: 50+ (2 of 2 - PCV) [facility] Start: 2008 SHINGRIX VACCINE (1 of 2) SHINGRIX VACCINE (1 of 2) [facility] Start: 09-07-2003 COLOGUARD (FIT-DNA) COLOGUARD (FIT-DNA) [facility] Start: 09-07-[address] COLONOGRAPHY [facility] Start: 09-07-2003 Screening for malignant neoplasm of colon [facility] Start: 09-07-2003 SIGMOIDOSCOPY SIGMOIDOSCOPY [facility] Start: 1988 HPV TESTING HPV TESTING [facility] Start: 1976 HEPATITIS C SCREENING HEPATITIS C SCREENING [facility] Start: 1976 HIV SCREENING HIV SCREENING [facility] Acute hepatitis 2000 panel - Serum [facility] Alanine aminotransfe rase [Enzymatic activity/volume] in Serum or Plasma [facility] Albumin [Mass/volume ] in Serum or Plasma [facility] Alkaline phosphatase [Enzymatic activity/volume] in Serum or Plasma [facility] [id number]. tumor marker [Units/volume] in Serum or Plasma [facility] Anion gap in Serum or Plasma [facility] Bilirubin, total measurement [facility] BUN/Creatinine ratio [facility] C reactive protein [Mass/volume] in Serum or Plasma [facility] Calcium [Mass/volume ] in Serum or Plasma [facility] Carbon dioxide, tota l [Moles/volume] in Central venous blood [facility] CBC W Auto Different ial panel - Blood [facility] Ceruloplasmin [Mass/ volume] in Serum or Plasma [facility] Comprehensive metabo lic 2000 panel - Serum or Plasma [facility] Copper [Moles/volume ] in Serum or Plasma [facility] Creatinine [Mass/vol ume] in Serum or Plasma [facility] Cytoplasmic ANCA Screen [facility] End: 09-18-2025 DBT Breast - bilateral screening LIZZY SCREENING W [facility] Radiology Routine Encounter for screening mammogram for breast cancer 1 Occurrences starting 08/19/2024 until 09/18/2025 [facility] Work Phone: Comment on above: 1 Occurrences starting 08/19/2024 until 09/18/2025 End: 04-24-2023 ECG COMPLETE ECG COMPLETE ECG Routine Near syncope 1 Occurrences starting 04/24/2022 until 04/24/2023 [facility] Work Phone: Comment on above: 1 Occurrences starting 04/24/2022 until 04/24/2023 ECG COMPLETE ECG COMPLETE ECG 04/24/2022 2:55 PM EST [facility] End: 12-01-2023 EGD DIAGNOSTIC EGD DIAGNOSTIC Endoscopy Routine Anemia, unspecified type 1 Occurrences starting 11/30/2022 until 12/01/2023 [facility] Work Phone: Comment on above: 1 Occurrences starting 11/30/2022 until 12/01/2023 Erythrocyte mean cor puscular volume determination [facility] Erythrocyte sediment ation rate [facility] Ethanol [Mass/volume ] in Serum or Plasma [facility] Ferritin [Mass/volum e] in Serum or Plasma [facility] Gamma glutamyl trans ferase measurement [facility] Glucose [Mass/volume ] in Serum or Plasma [facility] Hematocrit [Volume F raction] of Blood [facility] Hematocrit [Volume F raction] of Blood [facility] Hematocrit [Volume F raction] of Blood [facility] Hemoglobin [Mass/vol ume] in Blood [facility] Hemoglobin [Mass/vol ume] in Blood [facility] Hemoglobin [Mass/vol ume] in Blood [facility] Hemoglobin A1c/Hemoglobin.total in Blood [facility] Hemoglobin A1c/Hemoglobin.total in Blood [facility] Hemoglobin A1c/Hemoglobin.total in Blood [facility] Hemoglobin.gastroint estinal.l ower [Presence] in Stool by Immunoassay FECAL OCCULT BLOOD TEST Lab Routine Anemia, unspecified type Ordered: 04/25/2022 [facility] Work Phone: Comment on above: Ordered: 04/25/2022 Immunoglobulin measurement [facility] Iron and Iron bindin g capacity panel - Serum or Plasma [facility] Lactate dehydrogenas e measurement [facility] Leukocytes [#/volume ] in Blood [facility] Lipid 1996 panel - S latisha or Plasma [facility] Liver stiffness by US.transient elastography [facility] Magnesium [Mass/volu me] in Serum or Plasma [facility] End: 09-08-2023 LIZZY SCREENING LIZZY SCREENING Radiology Routine Screening breast examination 1 Occurrences starting 08/09/2022 until 09/08/2023 [facility] Work Phone: Comment on above: 1 Occurrences starting 08/09/2022 until 09/08/2023 End: 11-12-2023 LIZZY SCREENING LIZZY SCREENING Radiology Routine Encounter for screening mammogram for malignant neoplasm of breast 1 Occurrences starting 10/13/2022 until 11/12/2023 [facility] Work Phone: Comment on above: 1 Occurrences starting 10/13/2022 until 11/12/2023 Mean corpuscular hem oglobin concentration determination [facility] Mean corpuscular hem oglobin determination [facility] Measurement of renal function [facility] End: 10-18-2024 MG Breast Screening LIZZY SCREENING Radiology Routine Encounter for screening mammogram for breast cancer 1 Occurrences starting 09/19/2023 until 10/18/2024 [facility] Work Phone: Comment on above: 1 Occurrences starting 09/19/2023 until 10/18/2024 Mitochondria Ab [Pre sence] in Serum [facility] Neutrophil count [facility] Neutrophil percent differential count [facility] Patient Education ED Chest Wall Contusion [facility] Work Phone: Patient referral [facility] Work Phone: Platelets [#/volume] in Blood [facility] Potassium measurement [facility] Procedure [facility] Prothrombin time [facility] End: 11-12-2023 Radiologic exam chest 2 views XR CHEST 2V FRONTAL/LAT Radiology Routine Bronchitis 1 Occurrences starting 10/13/2022 until 11/12/2023 [facility] Work Phone: Comment on above: 1 Occurrences starting 10/13/2022 until 11/12/2023 Radiologic exam chest 2 views XR CHEST 2V FRONTAL/LAT Radiology Routine Bronchitis 10/13/2022 10:06 AM EDT [facility] Work Phone: Red blood cell count [facility] Red cell distributio n width determination [facility] End: 09-04-2022 Screening mammography bi 2-view breast inc cad LIZZY SCREENING Radiology Routine Screening breast examination 1 Occurrences starting 08/05/2021 until 09/04/2022 [facility] Work Phone: Comment on above: 1 Occurrences starting 08/05/2021 until 09/04/2022 End: 12-23-2022 Screening mammography bi 2-view breast inc cad LIZZY SCREENING Radiology Routine Screening breast examination 1 Occurrences starting 11/23/2021 until 12/23/2022 [facility] Work Phone: Comment on above: 1 Occurrences starting 11/23/2021 until 12/23/2022 Serum chloride measurement [facility] Serum immunofixation [facility] Smooth muscle Ab [Pr esence] in Serum [facility] Sodium measurement [facility] Thyroid stimulating hormone measurement [facility] Total protein measurement [facility] Transferrin [Mass/vo lume] in Serum or Plasma [facility] Urea nitrogen [Mass/ volume] in Serum or Plasma [facility] Urinalysis complete panel - Urine [facility] Urine culture [facility] End: 09-08-2023 US EXTREMITY MASS/FLUID COLLECTION LEFT US EXTREMITY MASS/FLUID COLLECTION LEFT Radiology Routine Arm mass, left 1 Occurrences starting 08/09/2022 until 09/08/2023 [facility] Work Phone: Comment on above: 1 Occurrences starting 08/09/2022 until 09/08/2023 End: 09-09-2023 XR ELBOW GENERAL 2V AP/LAT LEFT XR ELBOW GENERAL 2V AP/LAT LEFT Radiology Routine Effusion of left elbow 1 Occurrences starting 08/10/2022 until 09/09/2023 [facility] Work Phone: Comment on above: 1 Occurrences starting 08/10/2022 until 09/09/2023 End: 09-08-2023 XR HUMERUS 2V AP/LAT LEFT XR HUMERUS 2V AP/LAT LEFT Radiology Routine Left arm pain 1 Occurrences starting 08/09/2022 until 09/08/2023 [facility] Work Phone: Comment on above: 1 Occurrences starting 08/09/2022 until 09/08/2023 XR HUMERUS 2V AP/LAT LEFT XR HUM ERUS 2V AP/LAT LEFT Radiology Routine Left arm pain 08/09/2022 10:53 AM EDT [facility] Work Phone: End: 09-09-2023 XR SHOULDER GENERAL 3V OR MORE AP/TRUE AP/OTHER LEFT XR SHOULDER GENERAL 3V OR MORE AP/TRUE AP/OTHER LEFT Radiology Routine Acute pain of left shoulder 1 Occurrences starting 08/10/2022 until 09/09/2023 [facility] Work Phone: Comment on above: 1 Occurrences starting 08/10/2022 until 09/09/2023 [facility] Immunizations Immunization Date Immunization Notes Care Provider Fa rosety 08-11-2022 tetanus toxoid, redu noy diphtheria toxoid, and acellular pertussis vaccine, adsorbed Naye Sheets MD Work Phone: [facility] 08-11-2022 zoster vaccine recombinant Naye Sheets MD Work Phone: [facility] 01-04-2022 COVID-19 original vaccine, age 12+ yr, monovalent ([employer]-BIONTE[employer] - PEREZ TOP) Meenakshi Ferminsho COLLECTIONS TECHNICIAN.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 Work Phone: [facility] Work Phone: 01-04-2022 COVID-19 vaccine, ag e 12+ yr ([employer]-BIONTECH - PURPLE TOP) Naye Sheets MD Work Phone: [facility] 01-04-2022 influenza, injectabl e, quadrivalent, preservative free Naye Sheets MD Work Phone: [facility] Work Phone: 01-04-2022 influenza, seasonal, injectable Naye Sheets MD Work Phone: [facility] 01-04-2022 zoster vaccine recombinant Naye Sheets MD Work Phone: [facility] 01-04-2022 influenza virus vacc ine, unspecified formulation Naye Sheets MD Work Phone: [facility] 09-01-2020 Covid (Pfizer) [facility] 07-27-2020 Covid (Pfizer) [facility] 02-28-2019 influenza, injectabl e, quadrivalent, preservative free Naye Sheets MD Work Phone: [facility] 02-27-2019 influenza, injectabl e, quadrivalent, preservative free Dr. Naye Sheets MD Work Phone: [facility] 02-27-2019 influenza, seasonal, injectable Naye Shetes MD Work Phone: [facility] 03-13-2018 influenza, injectabl e, quadrivalent, preservative free Naye Sheets MD Work Phone: [facility] 03-16-2017 Influenza, injectabl e, Madin Jessica Canine Kidney, preservative free, quadrivalent Naye Sheets MD Work Phone: [facility] 02-26-2016 influenza, injectabl e, quadrivalent, preservative free Dr. Naye Sheets MD Work Phone: [facility] 02-26-2016 influenza, seasonal, injectable Naye Sheets MD Work Phone: [facility] 02-25-2015 influenza, injectabl e, quadrivalent, preservative free Dr. Naye Sheets MD Work Phone: [facility] 02-25-2015 influenza, seasonal, injectable Naye Sheets MD Work Phone: [facility] 02-05-2014 influenza, injectabl e, quadrivalent, preservative free Dr. Naye Sheets MD Work Phone: [facility] 02-05-2014 influenza, seasonal, injectable Naye Sheets MD Work Phone: [facility] 02-24-2013 pneumococcal polysaccharide vaccine, 23 valent Naye Sheets MD Work Phone: [facility] 03-13-2011 influenza virus vacc ine, unspecified formulation Naye Sheets MD Work Phone: [facility] 12-09-2010 tetanus toxoid, redu noy diphtheria toxoid, and acellular pertussis vaccine, adsorbed Naye Sheets MD Work Phone: [facility] 05-01-2003 influenza nasal, unspecified formulation Naye Sheets MD Work Phone: [facility] Payers Date Payer Category Payer Medicare (Managed Care) [facility] DUAL COMPLETE HMO POS SNP [id number] 2024 Unknown [id number] 2024 Self-pay [id number] 2024 Unknown [id number] 2024 Medicare [id number] 2022 Unknown [id number]. [id number] 2021 Medicaid [id number]. [id number] 2021 Medicare [id number]. [id number] 2021 Medicare [id number]. 1.13.159.2. [id number] 2021 Unknown [id number] 2011 Medicare MEDICARE PART A B [id number] Unknown [id number] 2.16.840.1.014616.3.579.2. 462 Unknown [id number] 2.16840.1.086951.3.579.2. 462 Unknown [id number] 2.16.840.1.515021.3.579.2. 462 Unknown [id number] 2.16.840.1.727534.3.579.2. 462 Unknown [id number] 2.16.840.1.883658.3.579.2. 462 Unknown [id number] 2.16.840.1.535986.3.579.2. 462 Unknown [id number] 2.16.840.1.950695.3.579.2. 462 Unknown [id number] 2.16.840.1.344945.3.579.2. 462 Unknown [id number] 2.16.840.1.917864.3.579.2. 462 Unknown [id number] 2.16.840.1.797817.3.579.2. 462 Unknown [id number] 2.16.840.1.926186.3.579.2. 462 Unknown [id number] 2.16.840.1.079859.3.579.2. 462 Unknown [id number] 2.16.840.1.665863.3.579.2. 462 Unknown [id number] 2.16.840.1.118990.3.579.2. 462 Unknown [id number] 2.16.840.1.087348.3.579.2. 462 Unknown [id number] 2.16.840.1.455598.3.579.2. 462 Unknown [id number] 2.16.840.1.846396.3.579.2. 462 Social History Date Type Detail Facility Start: 06-21-2018 End: 04-24-2022 Tobacco smoking status NHIS Ex-smoker [facility] Start: 06-21-2018 End: 04-24-2022 Tobacco use and exposure Smokeless tobacco non-user [facility] Start: 08-05-2021 End: 11-23-2021 Alcohol intake Current non-drinker of alcohol (finding) [facility] Start: 07-17-2014 History SDOH Alcohol Comment Patient indicated that she is binge drinker Sober since [facility] Start: 06-21-2018 End: 04-24-2022 Tobacco Comment quit in 2018 [facility] Start: 1960 Sex Assigned At Not on file C [facility] Start: 07-26-2021 End: 11-23-2021 Exposure to SARS-CoV-2 (event) Not sure [facility] History of tobacco use Current smoker [facility] Start: 04-28-2022 End: 10-13-2022 Alcohol intake Current drinker of alcohol (finding) [facility] Start: 06-10-2022 End: 11-15-2022 Tobacco smoking status NHIS Unknown if ever smoked [facility] Start: 06-10-2022 Heavy [facility] Start: 06-10-2022 None [facility] Start: 06-10-2022 Alone [facility] Start: 04-08-2019 Non-smoker [facility] Start: 1960 Sex Assigned At Female [facility] Start: 10-13-2022 End: 06-16-2024 History of Social function [facility] Work Phone: Start: 10-13-2022 End: 06-16-2024 Tobacco use panel [facility] Work Phone: Adult Depression Screening Assessment 0 [facility] Work Phone: Start: 08-26-2024 End: 08-26-2024 Tobacco smoking status NHIS Never smoked tobacco (finding) [facility] Start: 08-26-2024 End: 08-29-2024 Sex Female (finding) [facility] NEGATED: Highlighted row [facility] NEGATED: Highlighted row Not [facility] Medical Equipment Procedure Code Equipment Code Equipment Origin al Text Equipment Identifier Dates Reuben Bn Endur Sst 40gm Med Vsc - [id number] Start: 03-13-2011 Reuben Bn Endur Sst 40gm Med Vsc - [id number] Start: 03-13-2011 Body Episcopal 27mm +0mm Standard Cone Modular Revision Hip - [id number] Start: 06-28-2018 Insert Adm Mobil e Bearing Hip Episcopal 54mm 28mm 0d X3 9.9mm Acetabular - [id number] Start: 06-28-2018 Head V40 28mm 0m m Offset Taper Biolox Delta Femoral Hip - [id number] Start: 06-28-2018 Shell Mdm Triden t 62mm G Hemisphere Tritanium X3 Acetabular Multihole Rim - [id number] Start: 06-28-2018 Liner Mdm 48mm G Cocr Acetabular 28mm Femoral Head Hip - [id number] Start: 06-28-2018 Stem Episcopal 25mm Straight Cone Fermin 155mm Femoral Modular Hip - [id number] Start: 06-28-2018 Comp Tibtry 4 Kn Reuben Mdlr Sig - [id number] Start: 03-13-2011 Ins Tib 4 15mm K n Cocr Stab - [id number] Start: 03-13-2011 Comp Fem 4 Rt Kn Post - [id number] Start: 03-13-2011 Dome Pat 38mm Pf c Sig Std Kn - [id number] Start: 03-13-2011 Screw Mdm Gap To rx 6.5mm X3 Tritanium 40[address] Head Multihole - [id number] Start: 06-28-2018 Screw Gap 6.5mm 35mm Acetabular Hip Cancellous - [id number] Start: 06-28-2018 ([id number]) Orthopaedic bone screw, non-bioabsorbable, sterile ()[id number] FDA Start: 06-11-2022 ([id number]) Femur nail, sterile ()[id number] FDA Start: 06-11-2022 ([id number]) Orthopaedic bone screw, non-bioabsorbable, sterile ()[id number] [id number] FDA Start: 06-11-2022 Goals Date Patient Goal Desired Activity /State Functional Status Date Assessment Result Facility [facility]-29[facility]24 [facility] Work Phone: 06-28-2024 Are you deaf, or do you have serious difficulty hearing No 06/28/2024 6:25 PM Valentina Boykin RN No [facility] 06-28-2024 Are you blind, or do you have serious difficulty seeing, even when wearing glasses No 06/28/2024 6:25 PM Valentina Boykin RN No [facility] 06-28-2024 Do you have serious difficulty walking or climbing stairs Yes 06/28/2024 6:25 PM Valentina Boykin RN Yes [facility] 06-28-2024 Do you have difficul ty dressing or bathing Yes 06/28/2024 6:25 PM Valentina Boykin RN Yes [facility] 06-28-2024 Because of a physica l, mental, or emotional condition, do you have difficulty doing errands alone such as visiting a physician's office or shopping Yes 06/28/2024 6:25 PM Valentina Boykin RN Yes [facility] 06-16-20[address] score Ser Pl Calc.FibroSure 0.95 [facility] Comment on above: Order Comment: Speci men Type: BLOOD SPECIMENOrdering Facility: [facility] Address: [address] [place] [address] Performed By: #### L IVFIB ####[facility] LABCLIA [id number] [place] [address] [place] 06-16-2024 Necroinflammatory ac t score SerPl 0.16 [facility] Comment on above: Order Comment: Speci men Type: BLOOD SPECIMENOrdering Facility: [facility] Address: [address] [place] [address] Performed By: #### L IVFIB ####[facility] LABCLIA [id number] [place] [address] [place] 06-17-2022 Functional status Ambulates;Bath room Privilege [facility] Work Phone: Mental Status Date Assessment Result Facility 08-29-2024 Cognitive function Voice/Name [facility] Work Phone: 08-29-2024 Cognitive function Appropriate;Cooperativ e [facility] Work Phone: 08-26-2024 Cognitive function Level Of Cons ciousness Awake;Alert;Appropriate;Fol lows Commands [facility] Work Phone: 06-28-2024 Because of a physica l, mental, or emotional condition, do you have serious difficulty concentrating, remembering, or making decisions Yes 06/28/2024 6:25 PM Valentina Boykin, KYLIE Yes [facility] 06-13-2024 Cognitive function Level Of Cons ciousness Awake;Drowsy;Inappropriate; Disoriented [facility] Work Phone: 06-17-2022 Cognitive function Voice/Name [facility] Work Phone: Clinical Notes 06-06-2018 to 10-03-2024 Note Date & Type Note Facility 10-03-2024 Note [facility] Medical Records Department [address] [place] [address] Discharge Summary 10/03/24 1610 MR#: [id number] Acct: [id number] Name: KENYATTA CARRILLO Rep #: [id number] : 1960 64 From: Fermin Calvo DO PCP: Care Physician,No Primary Status:ADM IN Location: [place] [address] Providers Date of Admission: 10/02/24 Date of Discharge: 10/03/24 Primary Care Physician: No Primary Care Phys Consultations 10/03/24 10:53 Consult: Gastroenterology Routine Consulting Provider: [facility] Reason for Consult: dysphagia EMERGENT Consult: No MD Notified: Yes Date Notified: 10/03/24 Time Notified: 10:53 Method of Notification: Verbal Reason For Visit: HYPOKALEMIA, HYPOMAGNESMIA Diagnosis Discharge Diagnosis (1) Anemia: Status: Inactive Code(s): D64.9 - Anemia, unspecified Qualifiers: Anemia type: iron deficiency Iron deficiency anemia type: chronic blood loss Qualified Code(s): D50.0 - Iron deficiency anemia secondary to blood loss (chronic) (2) Alcoholic hepatitis: Status: Acute Code(s): K70.10 - Alcoholic hepatitis without ascites (3) Cholelithiasis: Status: Inactive Code(s): K80.20 - Calculus of gallbladder without cholecystitis without obstruction (4) Dilated pancreatic duct: Status: Acute Code(s): K86.89 - Other specified diseases of pancreas Plan 1. Generalized weakness secondary to electrolyte abnormality-low magnesium and potassium, etiology is probably secondary to her diarrhea she has had over the last several days. IV fluids will be given and potassium and magnesium supplementation will be administered #2 chronic alcohol use disorder-complicates care, management, recovery, and prognosis, patient will be monitored for DTs, I do not feel she needs CIWA scores. #3 chronic depression-patient is on Effexor #4 erosive esophagitis with bleeding Total clinical time spent by myself addressing the patient's medical issues, reviewing all of her data, and collaborating with patient's care team: 55 minutes Medications at Discharge Home Medications calcium carbonate (Tums) 200 mg PO BID PRN dyspepsia 07/23/24 cholecalciferol (vitamin D3) 1,250 mcg (50,000 unit) capsule 1,250 mcg PO 2XW supplement 07/23/24 cyanocobalamin (vitamin B-12) 1,000 mcg/mL injection solution 1,000 mcg IM QMONTH 07/23/24 folic acid 1 mg tablet 1 mg PO QDAY 07/23/24 ipratropium 0.5 mg-albuterol 3 mg (2.5 mg base)/3 mL nebulization soln 3 ml inhalation Q4H PRN shortness of breath 07/23/24 lidocaine 4 % topical gel 1 applic topical HS 07/23/24 magnesium glycinate 100 mg (as glycinate) tablet (Mag Glycinate) 100 mg PO BID 07/23/24 magnesium oxide 400 mg PO QDAY 07/23/24 thiamine HCl (vitamin B1) 100 mg tablet 100 mg PO QDAY 07/23/24 venlafaxine 37.5 mg capsule,extended release 24 hr 37.5 mg PO QDAY 07/23/24 zinc oxide 20 % topical paste 1 ea topical Q8H PRN skin irritation 07/23/24 pantoprazole 40 mg tablet,delayed release 40 mg PO BID GERD 30 days #60 tabs 08/29/24 ferrous sulfate 325 mg (65 mg iron) tablet (FeroSul) 325 mg PO QODAY@1200 #0 tabs 10/03/24 Hospital Course Operations None Procedures EGD Summary of Care Provided Minutes Spent on Discharge: 31 Hospital Course: This 64-year-old white female was seen in the emergency room at [facility] with complaints of generalized weakness. Patient has a history of alcohol use disorder and admits to drinking but is vague about how much she drinks. She had complained of having diarrhea over the last several days. Labs obtained showed a low magnesium of 0.8, potassium was 2.4, AST was elevated at 113 and alkaline phosphatase was 201. Patient was admitted to PCU, she was given potassium and magnesium supplementation, repeated labs showed her magnesium and potassium to be corrected. Patient had been scheduled for an upper endoscopy on 10/03/2024, this examiner decided to have her undergo the exam while she was in the hospital, it showed erosive esophagitis and it was recommended that she stay on Protonix 40 mg twice daily indefinitely. On 10/03/2024, patient was seen and examined: On examination she appeared in good health and spirits, she does not appear to be in any distress. Vital signs as documented. Skin warm and dry and without overt rashes. Neck without JVD, thyroid appears normal, trachea is midline, neck is supple. Lungs clear, normal air movement was noted. Heart exam notable for regular rhythm, normal sounds and absence of murmurs, rubs or gallops. Abdomen unremarkable and without evidence of organomegaly, masses, or abdominal aortic enlargement, bowel sounds are present in all 4 quadrants, no abdominal tenderness was noted. Extremities nonedematous, no cyanosis was noted, no clubbing was noted. Neuro: Cranial nerves II through XII are grossly intact, no focal motor deficits were noted (more content not included)... [facility] 08-29-2024 Consult note [facility] 08-29-2024 Discharge summary Note Date/Time August 29, 2024 12:28pm [facility] Medical Records Department [address] [place] [address] Discharge Summary 08/29/24 1209 MR#: [id number] Acct: [id number] Name: KENYATTA CARRILLO Rep #:[id number] : 1960 63 From: Jerry Huitron PCP: Dr. Naye Sheets MD Status:ADM I N Location: [place] [address] Providers Date of Admission: 08/26/24 Date of Discharge: 08/29/24 Primary Care Physician: Dr. Naye Sheets MD Consultations 08/26/24 22:07 Consult: Gastroenterology Routine Consulting Provider: [facility] Reason for Consult: GI bleed EMERGENT Consult: No MD Notified: Yes Date Notified: 08/26/24 Time Notified: 18:34 Method of Notification: Text Reason For Visit: GI BLEED, UTI Diagnosis Discharge Diagnosis (1) GI bleed: Status: Acute Code(s): K92.2 - Gastrointestinal hemorrhage, unspecified Plan Patient is a 63-year-old lady with history of chronic alcoholic liver disease who presented with progressive generalized weakness as well as coffee-ground emesis admitted to monitored bed for subsequent inpatient evaluation. She has history of binge alcohol drinking 1. Upper GI bleed ? Admit patient with chronic liver disease. Patient admitted to monitored bed started on Protonix, every 6 H&H ordered consult placed to GI. In view of patient underlying liver disease patient was started on ceftriaxone 08/29: Patient had EGD which shows erosive esophagitis, LA grade 4 with bleeding,large hiatus hernia and acute duodenitis. Discussed with Dr. Self. Prescription for pantoprazole 40 mg twice daily. H&H 10.7/32.8%. Advised follow-up in GI office in 1 month. 2. Acute on chronic moderate normochromic, normocytic anemia secondary to acute blood loss anemia monitoring H&H with plans to transfuse if patient hemoglobin falls below 7 or patient is deemed to be symptomatic 08/29: Her baseline hemoglobin about 13 g and it dropped to 10.6 g%. Patient on ferrous sulfate. 3 Acute cystitis ?Patient had pyuria as well as imaging findings consistent with cystitis. 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 4. Distended gallbladder with cholelithiasis ? Ordered gallbladder ultrasound for subsequent eval 08/28/2024; patient gallbladder ultrasound did not show 1. Hepatomegaly. 2. Hepatic steatosis. 3. Cholelithiasis without acute cholecystitis. 4. Nondilated biliary tree. 5. Limited evaluation of the pancreas secondary to overlying bowel gas. 08/29: No acute cholecystitis as per the clinical exam and ultrasound. 5. Under distention of descending, sigmoid colon: CT was done which shows minimal diverticulosis. Minimal rectosigmoid/descending colonic wall thickeningprobably related to underdistention. Patient does not have tenderness on left lower quadrant or left upper quadrant therefore do not think there is significant colitis. Patient on antibiotic for UTI anyways. 6. Chronic alcoholic liver disease ? Patient drinks alcohol more than 3 shots daily. Her drinking pattern is me. She drinks every 1-2 hours for 1 and half weeks and then does not drink for few weeks or few months. 7. Hypothyroidism ? Patient is on levothyroxine home dose continued 8. Hypokalemia -Corrected per protocol, Repeat potassium levels ordered for a.m.. 9. Depression with anxiety ? Patient is on venlafaxine?continue 10. Hypomagnesemia -Corrected for protocol, ordered repeat magnesium for a.m. 11. Left adnexal cyst, incompletely characterized -: CT with 3.8 cm left adnexal cyst, given patient is postmenopausal age recommended outpatient pelvic ultrasound, patient instructed to follow-up with primary care physician for subsequent care 12. Suspected protein calorie malnutrition ? Consult placed to dietitian 13. DVT prophylaxis ? Bilateral SCDs for now given patient presentation Discharge medication reconciliation done. Discharge follow-up instructions completed. Discharge process discussed with the patient and all questions wereanswered to patient's satisfaction. Follow with PCP in 1 to 2 weeks Total time spent, exact 35 minutes on discharge meds reconciliation, examination, coordination of care with nurses and ancillary staff, review of imaging and blood test and discussion with the patient on follow-up instructions. Medications at Discharge Home Medications calcium carbonate (Tums) 200 mg PO BID PRN dyspepsia 07/23/24 cholecalciferol (vitamin D3) 1,250 mcg (50,000 unit) capsule 1,250 mcg PO 2XW 07/23/24 cyanocobalamin (vitamin B-12) 1,000 mcg/mL injection solution 1,000 mcg IM QMONTH 07/23/24 folic acid 1 mg tablet 1 mg PO QDAY 07/23/24 ipratropium 0.5 mg-albuterol 3 mg (2.5 mg base)/3 mL nebulization soln 3 ml inhalation Q4H PRN shortness of breath 07/23/24 lidocaine 4 % topical gel 1 applic topical HS 07/23/24 magnesium glycinate 100 mg (as glycinate) tablet (Mag Glycinate) 100 mg PO BID 07/23/24 magnesium oxide 400 mg PO QDAY 07/23/24 thiamine HCl (vitamin B1) 100 mg tablet 100 mg PO QDAY 07/23/24 venlafaxine 37.5 mg capsule,extended release 24 hr 37.5 mg PO QDAY 07/23/24 zinc oxide 20 % topical paste 1 ea topical Q8H PRN skin irritation 07/23/24 ascorbic acid (vitamin C) 500 mg tablet 500 mg PO BID #60 tabs 08/29/24 ferrous sulfate 325 mg (65 mg iron) tablet 325 mg PO QODAY #30 tabs 08/29/24 pantoprazole 40 mg tablet,delayed release 40 mg PO BID GERD 30 days #60 tabs 08/29/24 Physical Exam Narrative Seen and examined. Patient follows in GI office for alcoholic liver disease, chronic alcoholic hepatitis. She has binge drinking alcohol pattern Complaining of mild epigastric pain. Physical exam: General: Alert, Oriented x3, Cooperative. BMI 26.8 kg/m? HEENT: Atraumatic, PERRLA, EOMI, Normocephalic Oral: No Gingival or Mucosal Lesions/ Ulcerations Neck: Supple, No JVD, Negative Carotid Bruits Chest wall/Lungs: Air entry diminished in bilateral lung bases. No crepitation/rhonchi Cardiovascular: Regular rate, Regular Rhythm, Normal S1, Normal S2, No M/G/R Abdomen: Bowel Sounds Present, Soft, mild epigastric tenderness, Non-Distended : No dysuria. No renal angle tenderness. No suprapubic tenderness. Extremities: No edema, Capillary Refill Less than 3 Seconds Skin: No rashes, No breakdown Musculoskeletal: No Tenderness to Palpation of Joints or Extremities Neurological: Cranial nerves II-XII grossly intact, DTR 2+/4. No acute focal neurological deficit. Psych/Mental Status: Flat affect Weight / BMI Weight Weight: 197 lb 5.019 oz Body Mass Index (BMI) 26.7 ABG / Lab / Microbiology Data 08/29/24 05:06 08/29/24 05:06 Laboratory: Laboratory Results - last 24 hr 08/29/24 05:06: WBC 3.9 L, RBC 3.57 L, Hgb 10.7 L, Hct 32.8 L, MCV 91.9, MCH 30.0, MCHC 32.6, RDW Std Deviation 48.5 H, RDW Coeff of Angelo 14.3, Plt Count 205,MPV 9.4, Immature Gran % (Auto) 0.300, Neut % (Auto) 44.2 L, Lymph % (Auto) 41.9H, Meriwether % (Auto) 10.3 H, Eos % (Auto) 2.8, Baso % (Auto) 0.5, Absolute Neuts (auto) 1.7 L, Absolute Lymphs (auto) 1.62, Nucleated RBC % 0, Sodium 136, Potassium 3.6, Chloride 102, Carbon Dioxide 22.5, Anion Gap 12, BUN 5, Creatinine 0.65 L, Estim Creat Clear Calc 88.17, Est GFR (MDRD) Non-Af 98, BUN/Creatinine Ratio 7.9 L, Glucose 83, Calcium 8.5, Total Bilirubin 0.42, DirectBilirubin 0.18, AST 32, ALT 15, Alkaline Phosphatase 134 H, Total Protein 5.8 L,Albumin 2.8 L, Globulin 3.0 Microbiology: Microbiology 08/26/24 Unknown Urine, Catheterized Urine Culture - Final Escherichia coli D/C Instructions Discharge Diet: Light diet - advance as tolerated Weight Bearing Status: Weight bearing as tolerated Call your doctor if you observe: Fever of 101 or Higher, Coldness, Increased Pain, Numbness or Tingling, Change in Color, Inability to urinate, Inability to have a bowel movement, Using more than 1 pad per hour, Shortness of breath, Dizziness, Fainting spells, Swelling in the ankles, Chest pain, Prolonged hiccupping, Increased palpitations (irregular heartbeat) and Calf discomfort DC O2, CPAP, BIPAP Needs Home O2 Discharge instructions: No When: IN 2 WEEKS Meaningful Use Info Meaningful Use Meaningful Use Diagnoses (Choose all that apply): None applicable Ischemic Stroke Statin Dosing Therapy Reference: STATIN DOSE THERAPY REFERENCE: * Patients > 75 years receive moderate or high dose statin therapy. * Patients 75 years or YOUNGER should receive HIGH intensity statin dose unless contraindicated. You will be required to document reason for non-treatment if statin daily dose does not meet guidelines. HIGH DOSE STATIN THERAPY DAILY Atorvastatin > than or = to 40 mg Rosuvastatin > than or = to 20 mg Amlodipine + Atorvastatin > than or = to 2.5/40 mg Ezetimibe + Simvastatin 10/80 mg Simvastatin 80mg Discharge Plan Admission Admit Date/Time: 08/26/24 18:33 Primary Reason for Your Visit: Severe erosive esophagitis with bleeding. Large hiatus hernia. Attending Provider: Jerry Lopez Primary Care Provider: Naye Sheets Consulting Providers: Tiff Ramires; Deven Porter Discharge Orders/Prescriptions Prescriptions: New ferrous sulfate 325 mg (65 mg iron) tablet 325 mg PO QODAY Qty: 30 2RF ascorbic acid (vitamin C) 500 mg tablet 500 mg PO BID Qty: 60 2RF Continued cyanocobalamin (vitamin B-12) 1,000 mcg/mL solution 1,000 mcg IM QMONTH folic acid 1 mg tablet 1 mg PO QDAY ipratropium-albuterol 0.5 mg-3 mg(2.5 mg base)/3 mL solution for nebulization 3 ml inhalation Q4H PRN (Reason: shortness of breath) lidocaine 4 % gel 1 applic topical HS Mag Glycinate 100 mg tablet 100 mg PO BID magnesium oxide 400 mg magnesium tablet 400 mg PO QDAY thiamine HCl (vitamin B1) 100 mg tablet 100 mg PO QDAY calcium carbonate [Tums] 200 mg calcium (500 mg) tablet,chewable 200 mg PO BID PRN (Reason: dyspepsia) venlafaxine 37.5 mg capsule,extended release 24hr 37.5 mg PO QDAY cholecalciferol (vitamin D3) 1,250 mcg (50,000 unit) capsule 1,250 mcg PO 2XW zinc oxide 20 % paste 1 ea topical Q8H PRN (Reason: skin irritation) pantoprazole 40 mg tablet,delayed release (DR/EC) 40 mg PO BID 30 Days Qty: 60 2RF Discontinued prednisone 50 mg tablet 50 mg PO QDAY Referrals / Follow Up: Naye Sheets MD [Primary Care Provider] - Neelam Conklin PA [Med Staff - Adv Practice Prof] - Within 1 Month Disposition Disposition (needs filled in before D/C Order can be placed): Home, Self Care Charges/Coding Visit Charges Inpatient E&M: 61925 Disch Hosp >30min 08/29/24 1228 <Electronically signed by Jerry Lopez MD> Cosigner Signature (if applicable): CC: Dr. Jerry Lopez MD; Dr. Naye Sheets MD~ Signed [facility] Work Phone: [phone]) 626-979004-18-2025 Consult note Author Teo Mendiola [facility] Note Date/Time August 29, 2024 2:3 1pm [facility] Medical Records Department [address] [place] [address] Counseling Note - Pharmacy 08/29/24 1223 MR#: [id number] Acct: [id number] Name: KENYATTA CARRILLO Rep #:[id number] : 1960 63 From: Teo Mendiola PCP: Dr. Naye Sheets MD Status:ADM I N Y Location: [place] [address] Pharmacy [place] Med Reconciliation Pharmacy Service has performed discharge medication reconciliation for this patient. The patient's discharge medication list was reviewed for discrepancies and discrepancies were resolved. Medications at Discharge Home Medications calcium carbonate (Tums) 200 mg PO BID PRN dyspepsia 07/23/24 cholecalciferol (vitamin D3) 1,250 mcg (50,000 unit) capsule 1,250 mcg PO 2XW 07/23/24 cyanocobalamin (vitamin B-12) 1,000 mcg/mL injection solution 1,000 mcg IM QMONTH 07/23/24 folic acid 1 mg tablet 1 mg PO QDAY 07/23/24 ipratropium 0.5 mg-albuterol 3 mg (2.5 mg base)/3 mL nebulization soln 3 ml inhalation Q4H PRN shortness of breath 07/23/24 lidocaine 4 % topical gel 1 applic topical HS 07/23/24 magnesium glycinate 100 mg (as glycinate) tablet (Mag Glycinate) 100 mg PO BID 07/23/24 magnesium oxide 400 mg PO QDAY 07/23/24 thiamine HCl (vitamin B1) 100 mg tablet 100 mg PO QDAY 07/23/24 venlafaxine 37.5 mg capsule,extended release 24 hr 37.5 mg PO QDAY 07/23/24 zinc oxide 20 % topical paste 1 ea topical Q8H PRN skin irritation 07/23/24 pantoprazole 40 mg tablet,delayed release 40 mg PO BID GERD 30 days #60 tabs 08/29/24 08/29/243 <Electronically signed by Teo Shah r> Date _ Teo Rocheanjelicanarinder Georgeigner Signature (if applicable): Date CC: ~ Signed [facility] Work Phone: [phone] 381-103404-18-2025 Discharge summary Author Jerry Lopez [facility] Note Date/Time August 29, 2024 12: 09pm [facility] Medical Records Department [address] [place] [address] Instructions for Home/Discharge Instructions 08/29/24 1104 MR#: [id number] Acct: [id number] Name: KENYATTA CARRILLO Rep #:[id number] : 1960 63 From: Jerry Huitron PCP: Dr. Naye Sheets MD Status:ADM I N Discharge Instructions Diet Discharge Diet: Light diet - advance as tolerated DC O2, CPAP, BIPAP needs Home O2 Discharge instructions: No Dressing / Incision Discharge Activity: Return to Normal Activity and May Not Drive Weight Bearing Status: Weight bearing as tolerated Dressing / Incision Call your doctor if you observe: Fever of 101 or Higher, Coldness, Increased Pain, Numbness or Tingling, Change in Color, Inability to urinate, Inability to have a bowel movement, Using more than 1 pad per hour, Shortness of breath, Dizziness, Fainting spells, Swelling in the ankles, Chest pain, Prolonged hiccupping, Increased palpitations (irregular heartbeat) and Calf discomfort Follow Up Care When: IN 2 WEEKS Test Results: Test results from this visit will be discussed in further detail at your follow- up appointment, if applicable. Discharge Plan Admission Admit Date/Time: 08/26/24 18:33 Primary Reason for Your Visit: Severe erosive esophagitis with bleeding. Large hiatus hernia. Attending Provider: Jerry Lopez Primary Care Provider: Naye Sheets Consulting Providers: Tiff Ramires; Deven Porter Discharge Orders/Prescriptions Prescriptions: Continued cyanocobalamin (vitamin B-12) 1,000 mcg/mL solution 1,000 mcg IM QMONTH folic acid 1 mg tablet 1 mg PO QDAY ipratropium-albuterol 0.5 mg-3 mg(2.5 mg base)/3 mL solution for nebulization 3 ml inhalation Q4H PRN (Reason: shortness of breath) lidocaine 4 % gel 1 applic topical HS Mag Glycinate 100 mg tablet 100 mg PO BID magnesium oxide 400 mg magnesium tablet 400 mg PO QDAY thiamine HCl (vitamin B1) 100 mg tablet 100 mg PO QDAY calcium carbonate [Tums] 200 mg calcium (500 mg) tablet,chewable 200 mg PO BID PRN (Reason: dyspepsia) venlafaxine 37.5 mg capsule,extended release 24hr 37.5 mg PO QDAY cholecalciferol (vitamin D3) 1,250 mcg (50,000 unit) capsule 1,250 mcg PO 2XW zinc oxide 20 % paste 1 ea topical Q8H PRN (Reason: skin irritation) pantoprazole 40 mg tablet,delayed release (DR/EC) 40 mg PO BID 30 Days Qty: 60 2RF Discontinued prednisone 50 mg tablet 50 mg PO QDAY Referrals / Follow Up: Naye Sheets MD [Primary Care Provider] - Neelam Conklin PA [Med Staff - [facility]] - Within 1 Month Disposition Disposition (needs filled in before D/C Order can be placed): Home, Self Care 08/29/24 1209<Electronically signed by Jerry Lopez MD>Jerry Lopez MD CC: Dr. Tiff Ramires MD; Dr. Deven Porter MD; Dr. Naye Sheets MD ~ Signed [facility] Work Phone: [phone] Discharge summary [facility] Medical Records Department [address] [place] [address] Discharge Summary 08/29/24 120 MR#: [id number] Acct: [id number] Name: KENYATTA CARRILLO Rep #:[id number] : 1960 63 From: Jerry Huitron PCP: Dr. Naye Sheets MD Status:ADM I N Location: [place] [address] Providers Date of Admission: 08/26/24 Date of Discharge: 08/29/24 Primary Care Physician: Dr. Naye Sheets MD Consultations 08/26/24 22:07 Consult: Gastroenterology Routine Consulting Provider: [facility] Reason for Consult: GI bleed EMERGENT Consult: No MD Notified: Yes Date Notified: 08/26/24 Time Notified: 18:34 Method of Notification: Text Reason For Visit: GI BLEED, UTI Diagnosis Discharge Diagnosis (1) GI bleed: Status: Acute Code(s): K92.2 - Gastrointestinal hemorrhage, unspecified Plan Patient is a 63-year-old lady with history of chronic alcoholic liver disease who presented with progressive generalized weakness as well as coffee-ground emesis admitted to monitored bed for subsequent inpatient evaluation. She has history of binge alcohol drinking 1. Upper GI bleed ? Admit patient with chronic liver disease. Patient admitted to monitored bed started on Protonix, every 6 H&H ordered consult placed to GI. In view of patient underlying liver disease patient was started on ceftriaxone 08/29: Patient had EGD which shows erosive esophagitis, LA grade 4 with bleeding,large hiatus herniaand acute duodenitis. Discussed with Dr. Self. Prescription for pantoprazole 40 mg twice daily. H&H 10.7/32.8%. Advised follow-up in GI office in 1 month. 2. Acute on chronic moderate normochromic, normocytic anemia secondary to acute blood loss anemia monitoring H&H with plans to transfuse if patient hemoglobin falls below 7 or patient is deemed to be symptomatic 08/29: Her baseline hemoglobin about 13 g and it dropped to 10.6 g%. Patient on ferrous sulfate. 3 Acute cystitis ?Patient had pyuria as well as imaging findings consistent with cystitis. 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 4. Distended gallbladder with cholelithiasis ? Ordered gallbladder ultrasound for subsequent eval 08/28/2024; patient gallbladder ultrasound did not show 1. Hepatomegaly. 2. Hepatic steatosis. 3. Cholelithiasis without acute cholecystitis. 4. Nondilated biliary tree. 5. Limited evaluation of the pancreas secondary to overlying bowel gas. 08/29: No acute cholecystitis as per the clinical exam and ultrasound. 5. Under distention of descending, sigmoid colon: CT was done which shows minimal diverticulosis. Minimal rectosigmoid/descending colonic wall thickeningprobably related to underdistention. Patient does not have tenderness on left lower quadrant or left upper quadrant therefore do not think there is significant colitis. Patient on antibiotic for UTI anyways. 6. Chronic alcoholic liver disease ? Patient drinks alcohol more than 3 shots daily. Her drinking pattern is me. She drinks every 1-2 hours for 1 and half weeks and then does not drink for few weeks or few months. 7. Hypothyroidism ? Patient is on levothyroxine home dose continued 8. Hypokalemia -Corrected per protocol, Repeat potassium levels ordered for a.m.. 9. Depression with anxiety ? Patient is on venlafaxine?continue 10. Hypomagnesemia -Corrected for protocol, ordered repeat magnesium for a.m. 11. Left adnexal cyst, incompletely characterized -: CT with 3.8 cm left adnexal cyst, given patient is postmenopausal age recommended outpatient pelvic ultrasound, patient instructed to follow-up with primary care physician for subsequent care 12. Suspected protein calorie malnutrition ? Consult placed to dietitian 13. DVT prophylaxis ? Bilateral SCDs for now given patient presentation Discharge medication reconciliation done. Discharge follow-up instructions completed. Discharge process discussed with the patient and all questions wereanswered to patient's satisfaction. Follow with PCP in 1 to 2 weeks Total time spent, exact 35 minutes on discharge meds reconciliation, examination, coordination of care with nurses and ancillary staff, review of imaging and blood test and discussion with the patient on follow-up instructions. Medications at Discharge Home Medications calcium carbonate (Tums) 200 mg PO BID PRN dyspepsia 07/23/24 cholecalciferol (vitamin D3) 1,250 mcg (50,000 unit) capsule 1,250 mcg PO 2XW 07/23/24 cyanocobalamin (vitamin B-12) 1,000 mcg/mL injection solution 1,000 mcg IM QMONTH 07/23/24 folic acid 1 mg tablet 1 mg PO QDAY 07/23/24 ipratropium 0.5 mg-albuterol 3 mg (2.5 mg base)/3 mL nebulization soln 3 ml inhalation Q4H PRN shortness of breath 07/23/24 lidocaine 4 % topical gel 1 applic topical HS 07/23/24 magnesium glycinate 100 mg (as glycinate) tablet (Mag Glycinate) 100 mg PO BID 07/23/24 magnesium oxide 400 mg PO QDAY 07/23/24 thiamine HCl (vitamin B1) 100 mg tablet 100 mg PO QDAY 07/23/24 venlafaxine 37.5 mg capsule,extended release 24 hr 37.5 mg PO QDAY 07/23/24 zinc oxide 20 % topical paste 1 ea topical Q8H PRN skin irritation 07/23/24 ascorbic acid (vitamin C) 500 mg tablet 500 mg PO BID #60 tabs 08/29/24 ferrous sulfate 325 mg (65 mg iron) tablet 325 mg PO QODAY #30 tabs 08/29/24 pantoprazole 40 mg tablet,delayed release 40 mg PO BID GERD 30 days #60 tabs 08/29/24 Physical Exam Narrative Seen and examined. Patient follows in GI office for alcoholic liver disease, chronic alcoholic hepatitis. She has binge drinking alcohol pattern Complaining of mild epigastric pain. Physical exam: General: Alert, Oriented x3, Cooperative. BMI 26.8 kg/m? HEENT: Atraumatic, PERRLA, EOMI, Normocephalic Oral: No Gingival or Mucosal Lesions/ Ulcerations Neck: Supple, No JVD, Negative Carotid Bruits Chest wall/Lungs: Air entry diminished in bilateral lung bases. No crepitation/rhonchi Cardiovascular: Regular rate, Regular Rhythm, Normal S1, Normal S2, No M/G/R Abdomen: Bowel Sounds Present, Soft, mild epigastric tenderness, Non-Distended : No dysuria. No renal angle tenderness. No suprapubic tenderness. Extremities: No edema, Capillary Refill Less than 3 Seconds Skin: No rashes, No breakdown Musculoskeletal: No Tenderness to Palpation of Joints or Extremities Neurological: Cranial nerves II-XII grossly intact, DTR 2+/4. No acute focal neurological deficit. Psych/Mental Status: Flat affect Weight / BMI Weight Weight: 197 lb 5.019 oz Body Mass Index (BMI) 26.7 ABG / Lab / Microbiology Data 08/29/24 05:06 08/29/24 05:06 Laboratory: Laboratory Results - last 24 hr 08/29/24 05:06: WBC 3.9 L, RBC 3.57 L, Hgb 10.7 L, Hct 32.8 L, MCV 91.9, MCH 30.0, MCHC 32.6, RDW Std Deviation 48.5 H, RDW Coeff of Angelo 14.3, Plt Count 205,MPV 9.4, Immature Gran % (Auto) 0.300, Neut % (Auto) 44.2 L, Lymph % (Auto) 41.9H, Meriwether % (Auto) 10.3 H, Eos % (Auto) 2.8, Baso % (Auto) 0.5, Absolute Neuts (auto) 1.7 L, Absolute Lymphs (auto) 1.62, Nucleated RBC % 0, Sodium 136, Potassium 3.6, Chloride 102, Carbon Dioxide 22.5, Anion Gap 12, BUN 5, Creatinine 0.65 L, Estim Creat Clear Calc 88.17, Est GFR (MDRD) Non-Af 98, BUN/Creatinine Ratio 7.9 L, Glucose 83, Calcium 8.5, Total Bilirubin 0.42, DirectBilirubin 0.18, AST 32, ALT 15, Alkaline Phosphatase 134 H, Total Protein 5.8 L,Albumin 2.8 L, Globulin 3.0 Microbiology: Microbiology 08/26/24 Unknown Urine, Catheterized Urine Culture - Final Escherichia coli D/C Instructions Discharge Diet: Light diet - advance as tolerated Weight Bearing Status: Weight bearing as tolerated Call your doctor if you observe: Fever of 101 or Higher, Coldness, Increased Pain, Numbness or Tingling, Change in Color, Inability to urinate, Inability to have a bowel movement, Using more than 1 pad per hour, Shortness of breath, Dizziness, Fainting spells, Swelling in the ankles, Chest pain, Prolonged hiccupping, Increased palpitations (irregular heartbeat) and Calf discomfort DC O2, CPAP, BIPAP Needs Home O2 Discharge instructions: No When: IN 2 WEEKS Meaningful Use Info Meaningful Use Meaningful Use Diagnoses (Choose all that apply): None applicable Ischemic Stroke Statin Dosing Therapy Reference: STATIN DOSE THERAPY REFERENCE: * Patients > 75 years receive moderate or high dose statin therapy. * Patients 75 years or YOUNGER should receive HIGH intensity statin dose unless contraindicated. You will be required to document reason for non-treatment if statin daily dose does not meet guidelines. HIGH DOSE STATIN THERAPY DAILY Atorvastatin > than or = to 40 mg Rosuvastatin > than or = to 20 mg Amlodipine + Atorvastatin > than or = to 2.5/40 mg Ezetimibe + Simvastatin 10/80 mg Simvastatin 80mg Discharge Plan Admission Admit Date/Time: 08/26/24 18:33 Primary Reason for Your Visit: Severe erosive esophagitis with bleeding. Large hiatus hernia. Attending Provider: Jerry Lopez Primary Care Provider: Naye Sheets Consulting Providers: Tiff Ramires; Deven Porter Discharge Orders/Prescriptions Prescriptions: New ferrous sulfate 325 mg (65 mg iron) tablet 325 mg PO QODAY Qty: 30 2RF ascorbic acid (vitamin C) 500 mg tablet 500 mg PO BID Qty: 60 2RF Continued cyanocobalamin (vitamin B-12) 1,000 mcg/mL solution 1,000 mcg IM QMONTH folic acid 1 mg tablet 1 mg PO QDAY ipratropium-albuterol 0.5 mg-3 mg(2.5 mg base)/3 mL solution for nebulization 3 ml inhalation Q4H PRN (Reason: shortness of breath) lidocaine 4 % gel 1 applic topical HS Mag Glycinate 100 mg tablet 100 mg PO BID magnesium oxide 400 mg magnesium tablet 400 mg PO QDAY thiamine HCl (vitamin B1) 100 mg tablet 100 mg PO QDAY calcium carbonate [Tums] 200 mg calcium (500 mg) tablet,chewable 200 mg PO BID PRN (Reason: dyspepsia) venlafaxine 37.5 mg capsule,extended release 24hr 37.5 mg PO QDAY cholecalciferol (vitamin D3) 1,250 mcg (50,000 unit) capsule 1,250 mcg PO 2XW zinc oxide 20 % paste 1 ea topical Q8H PRN (Reason: skin irritation) pantoprazole 40 mg tablet,delayed release (DR/EC) 40 mg PO BID 30 Days Qty: 60 2RF Discontinued prednisone 50 mg tablet 50 mg PO QDAY Referrals / Follow Up: Naye Sheets MD [Primary Care Provider] - Neelam Conklin PA [Med Staff - Adv Practice Prof] - Within 1 Month Disposition Disposition (needs filled in before D/C Order can be placed): Home, Self Care Charges/Coding Visit Charges Inpatient E&M: 44041 Disch Hosp >30min 08/29/24 1228 Cosigner Signature (if applicable): CC: Dr. Jerry Lopez MD; Dr. Naye Sheets MD~ Signed [facility]04-18-2025 Discharge summary [facility] Medical Records Department [address] [place] [address] Instructions for Home/Discharge Instructions 08/29/24 1104 MR#: [id number] Acct: [id number] Name: KENYATTA CARRILLO Rep #:[id number] : 1960 63 From: Jerry Huitron PCP: Dr. Naye Sheets MD Status:ADM I N Discharge Instructions Diet Discharge Diet: Light diet - advance as tolerated DC O2, CPAP, BIPAP needs Home O2 Discharge instructions: No Dressing / Incision Discharge Activity: Return to Normal Activity and May Not Drive Weight Bearing Status: Weight bearing as tolerated Dressing / Incision Call your doctor if you observe: Fever of 101 or Higher, Coldness, Increased Pain, Numbness or Tingling, Change in Color, Inability to urinate, Inability to have a bowel movement, Using more than 1 pad per hour, Shortness of breath, Dizziness, Fainting spells, Swelling in the ankles, Chest pain, Prolonged hiccupping, Increased palpitations (irregular heartbeat) and Calf discomfort Follow Up Care When: IN 2 WEEKS Test Results: Test results from this visit will be discussed in further detail at your follow- up appointment, if applicable. Discharge Plan Admission Admit Date/Time: 08/26/24 18:33 Primary Reason for Your Visit: Severe erosive esophagitis with bleeding. Large hiatus hernia. Attending Provider: Jerry Lopez Primary Care Provider: Naye Sheets Consulting Providers: Tiff Ramires; Deven Porter Discharge Orders/Prescriptions Prescriptions: Continued cyanocobalamin (vitamin B-12) 1,000 mcg/mL solution 1,000 mcg IM QMONTH folic acid 1 mg tablet 1 mg PO QDAY ipratropium-albuterol 0.5 mg-3 mg(2.5 mg base)/3 mL solution for nebulization 3 ml inhalation Q4H PRN (Reason: shortness of breath) lidocaine 4 % gel 1 applic topical HS Mag Glycinate 100 mg tablet 100 mg PO BID magnesium oxide 400 mg magnesium tablet 400 mg PO QDAY thiamine HCl (vitamin B1) 100 mg tablet 100 mg PO QDAY calcium carbonate [Tums] 200 mg calcium (500 mg) tablet,chewable 200 mg PO BID PRN (Reason: dyspepsia) venlafaxine 37.5 mg capsule,extended release 24hr 37.5 mg PO QDAY cholecalciferol (vitamin D3) 1,250 mcg (50,000 unit) capsule 1,250 mcg PO 2XW zinc oxide 20 % paste 1 ea topical Q8H PRN (Reason: skin irritation) pantoprazole 40 mg tablet,delayed release (DR/EC) 40 mg PO BID 30 Days Qty: 60 2RF Discontinued prednisone 50 mg tablet 50 mg PO QDAY Referrals / Follow Up: Naye Sheets MD [Primary Care Provider] - Neelam Conklin PA [Med Staff - [facility]] - Within 1 Month Disposition Disposition (needs filled in before D/C Order can be placed): Home, Self Care 08/29/24 1209Jerry Lopez MD CC: Dr. Tiff Ramires MD; Dr. Deven Porter MD; Dr. Naye Sheets MD ~ Signed [facility]04-18-2025 [facility] Medical Records Department [address] [place] [address] Discharge Summary 08/29/24 1209 MR#: [id number] Acct: [id number] Name: KENYATTA CARRILLO Rep #: [id number] : 1960 63 From: Jerry Lopez MD PCP: Dr. Naye Sheets MD Status:ADM IN Location: [place] [address] Providers Date of Admission: 08/26/24 Date of Discharge: 08/29/24 Primary Care Physician: Dr. Naye Sheets MD Consultations 08/26/24 22:07 Consult: Gastroenterology Routine Consulting Provider: [facility] Reason for Consult: GI bleed EMERGENT Consult: No MD Notified: Yes Date Notified: 08/26/24 Time Notified: 18:34 Method of Notification: Text Reason For Visit: GI BLEED, UTI Diagnosis Discharge Diagnosis (1) GI bleed: Status: Acute Code(s): K92.2 - Gastrointestinal hemorrhage, unspecified Plan Patient is a 63-year-old lady with history of chronic alcoholic liver disease who presented with progressive generalized weakness as well as coffee-ground emesis admitted to monitored bed for subsequent inpatient evaluation. She has history of binge alcohol drinking 1. Upper GI bleed ??? Admit patient with chronic liver disease. Patient admitted to monitored bed started on Protonix, every 6 H H ordered consult placed to GI. In view of patient underlying liver disease patient was started on ceftriaxone 08/29: Patient had EGD which shows erosive esophagitis, LA grade 4 with bleeding, large hiatus hernia and acute duodenitis. Discussed with Dr. Self. Prescription for pantoprazole 40 mg twice daily. H H 10.7/32.8%. Advised follow-up in GI office in 1 month. 2. Acute on chronic moderate normochromic, normocytic anemia secondary to acute blood loss anemia monitoring H H with plans to transfuse if patient hemoglobin falls below 7 or patient is deemed to be symptomatic 08/29: Her baseline hemoglobin about 13 g and it dropped to 10.6 g%. Patient on ferrous sulfate. 3 Acute cystitis ???Patient had pyuria as well as imaging findings consistent with cystitis. 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 4. Distended gallbladder with cholelithiasis ??? Ordered gallbladder ultrasound for subsequent eval 08/28/2024; patient gallbladder ultrasound did not show 1. Hepatomegaly. 2. Hepatic steatosis. 3. Cholelithiasis without acute cholecystitis. 4. Nondilated biliary tree. 5. Limited evaluation of the pancreas secondary to overlying bowel gas. 08/29: No acute cholecystitis as per the clinical exam and ultrasound. 5. Under distention of descending, sigmoid colon: CT was done which shows minimal diverticulosis. Minimal rectosigmoid/descending colonic wall thickening probably related to underdistention. Patient does not have tenderness on left lower quadrant or left upper quadrant therefore do not think there is significant colitis. Patient on antibiotic for UTI anyways. 6. Chronic alcoholic liver disease ??? Patient drinks alcohol more than 3 shots daily. Her drinking pattern is me. She drinks every 1-2 hours for 1 and half weeks and then does not drink for few weeks or few months. 7. Hypothyroidism ??? Patient is on levothyroxine home dose continued 8. Hypokalemia -Corrected per protocol, Repeat potassium levels ordered for a.m.. 9. Depression with anxiety ??? Patient is on venlafaxine???continue 10. Hypomagnesemia -Corrected for protocol, ordered repeat magnesium for a.m. 11. Left adnexal cyst, incompletely characterized -: CT with 3.8 cm left adnexal cyst, given patient is postmenopausal age recommended outpatient pelvic ultrasound, patient instructed to follow-up with primary care physician for subsequent care 12. Suspected protein calorie malnutrition ??? Consult placed to dietitian 13. DVT prophylaxis ??? Bilateral SCDs for now given patient presentation Discharge medication reconciliation done. Discharge follow-up instructions completed. Discharge process discussed with the patient and all questions were answered to patient's satisfaction. Follow with PCP in 1 to 2 weeks Total time spent, exact 35 minutes on discharge meds reconciliation, examination, coordination of care with nurses and ancillary staff, review of imaging and blood test and discussion with the patient on follow-up instructions. Medications at Discharge Home Medications calcium carbonate (Tums) 200 mg PO BID PRN dyspepsia 07/23/24 cholecalciferol (vitamin D3) 1,250 mcg (50,000 unit) capsule 1,250 mcg PO 2XW 07/23/24 cyanocobalamin (vitamin B-12) 1,000 mcg/mL injection solution 1,000 mcg IM QMONTH 07/23/24 folic acid 1 mg tablet 1 mg PO QDAY 07/23/24 ipratropium 0.5 mg-albuterol 3 mg (2.5 mg b (more content not included)... [facility]04-17-2025 Consult note Author Mikael Vargas [facility] Note Date/Time August 28, 2024 8:2 8pm [facility] Medical Records Department [address] [place] [address] Anesthesia Postop Eval II 08/28/242027 MR#: [id number] Acct: [id number] Name: KENYATTA CARRILLO Rep #:[id number] : 1960 63 From: Mikael Vargas MD PCP: Dr. Naye Sheets MD Status:ADM I N Y Race: C Location: MS3 [id number] Anesthesia Postop Eval I Sum Postop Eval Completion status Anesthesia document: Postop Eval 1 completed: Yes Anesthesia Postop Eval I Summary Anesthesia Postop Eval I Summary: Anesthesia Postop Eval I: Assessment Summary Airway patent Yes 08/28/24 14:53 [email or web address] Spontaneous unlabored Yes 08/28/24 14:53 [email or web address] respirations Mental status Awake,Calm 08/28/24 14:53 [email or web address] nausea No 08/28/24 14:53 [email or web address] Vomiting No 08/28/24 14:53 [email or web address] Anesthesia Postop Eval I: Fluid Summary Crystalloid volume administer 40 08/28/24 14:53 [email or web address] (ml) Colloids volume administered ( ml) Blood Product volume administered (ml) Total IV fluid infused 40 08/28/24 14:53 [email or web address] Anesthesia Postop Eval I: Summary Notes Anesthesia Complication No 08/28/24 14:53 [email or web address] Anesthesia Complication Comment: Post-operative progress note Anesthesia: Postop Eval II Evaluation Mental status: Awake and Calm Pain Level: 0 nausea: No Vomiting: No Complications Anesthesia Complication: No 08/28/242027 <Electronically signed by Mikael sanches MD> Date _ Mikael Vargas MD Cosigner Signature: Date CC: ~ Signed [facility] Work Phone: [phone] Consult note [facility] Medical Records Department [address] [place] [address] Anesthesia Postop Eval II 08/28/242027 MR#: [id number] Acct: [id number] Name: KENYATTA CARRILLO Rep #:[id number] : 1960 63 From: Mikael Vargas MD PCP: Dr. Naye Sheets MD Status:ADM I N Y Race: C Location: MS3 MS305 -1 Anesthesia Postop Eval I Sum Postop Eval Completion status Anesthesia document: Postop Eval 1 completed: Yes Anesthesia Postop Eval I Summary Anesthesia Postop Eval I Summary: Anesthesia Postop Eval I: Assessment Summary Airway patent Yes 08/28/24 14:53 [email or web address] Spontaneous unlabored Yes 08/28/24 14:53 [email or web address] respirations Mental status Awake,Calm 08/28/24 14:53 [email or web address] nausea No 08/28/24 14:53 [email or web address] Vomiting No 08/28/24 14:53 [email or web address] Anesthesia Postop Eval I: Fluid Summary Crystalloid volume administer 40 08/28/24 14:53 [email or web address] (ml) Colloids volume administered ( ml) Blood Product volume administered (ml) Total IV fluid infused 40 08/28/24 14:53 [email or web address] Anesthesia Postop Eval I: Summary Notes Anesthesia Complication No 08/28/24 14:53 [email or web address] Anesthesia Complication Comment: Post-operative progress note Anesthesia: Postop Eval II Evaluation Mental status: Awake and Calm Pain Level: 0 nausea: No Vomiting: No Complications Anesthesia Complication: No 08/28/242027 verónica GASTON> Date _ Mikael Georgeignnarinder Signature: Date CC: ~ Signed [facility]04-17-2025 Consult note Author Yang Vicente [facility] Note Date/Time August 28, 2024 2:5 3pm [facility] Medical Records Department [address] [place] [address] Anesthesia Postop Eval I 08/28/24 1453 MR#: [id number] Acct: [id number] Name: ALEKSANDARKENYATTASaad ISAACON Rep #:[id number] : 1960 63 From: Yang Vicente PCP: Dr. Naye Sheets MD Status:ADM I N Y Race: C Location: OR3 MS305 - Anesthesia: Postop Eval I Current Vital Signs Temperature: 98.4 F Pulse Rate: 89 Blood Pressure: 118/101 Respiratory Rate: 18 Pulse Ox: 98 Oxygen Delivery Method: Room Air Assessment Airway patent: Yes Spontaneous unlabored respirations: Yes Mental status: Awake and Calm nausea: No Vomiting: No Anesthesia Complication: No Fluid Hydration Crystalloid volume administer (ml): 40 Total IV fluid infused: 40 Progress Note Anesthesia document: Postop Eval 1 completed: Yes 08/28/24 1503 <Electronically signed by Yang Vicente > Date _ Yang Vicente Cosigner Signature: Date CC: ~ Signed [facility] Work Phone: [phone] Consult note Author Mikael [facility] Note Date/Time August 28, 2024 1:2 0pm [facility] Medical Records Department [address] [place] [id number] Pre-Anesthesia Evaluation 08/28/24 1309 MR#: [id number] Acct: [id number] Name: KENYATTA CARRILLO Rep #:[id number] : 1960 63 From: Mikael Vargas MD PCP: Dr. Naye Sheets MD Status:ADM I N Y Race: C Location: OR3 MS305 - ADDENDUM by Dr. Mikael Vargas MD on 08/28/24 at 1320 Addendum Patient does have an expiratory wheeze on physical exam. We will give her a nebulizer treatment prior to procedure. 08/28/24 1320 <Electronically signed by Mikael sanches MD> Date _ Mikael Vargas MD cc: ~* Signed ASA Classification* ASA Classification ASA Classification: 3 Assessment & Plan Anesthesia* Anesthesia Assessment Anesthesia Assessment: Discussed sedation and/or anesthesia options, risks, benefits, and alternatives with patient/parents/legal guardian/POA. Questions invited. The patient/parents/legal guardian/POA seems to understand and agrees to proceedwith anesthesia plan. Reviewed the physical assessment, medical history, allergy history and patient home medications list prior to surgery/procedure/anesthetic and documented any changes. Performed airway and anesthesia risk assessments. Anesthesia Type Anesthesia Type: MAC History Source History Obtained from:: Patient and Chart Anesthesia Focused Assessment* Temperature: 97.3 F Pulse Rate: 81 Blood Pressure: 128/70 Respiratory Rate: 16 Pulse Ox: 99 Oxygen Delivery Method: Room Air Airway Assessment Mouth opens: >3 cm Mallampati Score: I Teeth Condition: Missing (Patient is edentulous.) Neck Range of motion (ROM): Limited ROM (Slight decrease in extension) Focused Labs Anesthesia Preop lab: CBC WBC 3.9 K/mm3 (4.4-11.0) L 08/28/24 04:52 08/28/24 RBC 3.52 M/mm3 (4.2-5.4) L 08/28/24 04:52 08/28/24 Hgb 10.6 g/dL (12.0-15.0) L 08/28/24 04:52 5 Hct 32.2 % (37-47) L 08/28/24 04:52 08/28/24 Plt Count 231 K/mm3 (150-450) 08/28/24 04:52 08/28/24 CHEMISTRY Potassium 3.4 mmol/L (3.3-5.1) 08/28/24 04:52 08/28/24 Sodium 139 mmol/L (133-145) 08/28/24 04:52 08/28/24 Magnesium 1.4 mg/dL (1.5-2.2) L 08/28/24 04:52 08/28/24 Phosphorus 3.6 mg/dL (2.7-4.5) 08/28/24 04:52 08/28/24 BUN 4 mg/dL (4-19) 08/28/24 04:52 08/28/24 Creatinine 0.62 mg/dL (0.70-1.20) L 08/28/24 04:52 Glucose 97 mg/dL (70-99) 08/28/24 04:52 08/28/24 TSH 6.550 uIU/mL (0.300-4.200) H 08/28/24 04:52 COAG PT 15.2 SECONDS (11.7-14.9) H 08/26/24 14:30 08/12 10/05 Pre-Assessment Diagnosis/Proposed Procedure Planned Operative Procedure(s): Esophagogastroduodenoscopy Anesthesia History Anesthesia History - spinner hand: Anesthesia History - spinner hand Hx Hospitalization No 07/03/19 19:44 Any Problems With Anesthesia No 08/28/24 03:35 Cholinesterase deficiency No 08/28/24 03:35 You/Your Family Experience No 08/28/24 03:35 fever (hyperthermia) with Relationship Recent Exposure to Contagious No 08/28/24 03:35 Disease Does patient have nerve No 08/28/24 03:35 stimulator Patient instructed to have No 08/28/24 03:35 device shut off --Does patient have Pacemaker No 08/28/24 12:59 or ICD? When Was Last Pacemaker Check QUESTION #4 FULL TEXT: You/Your Family Experience fever (hyperthermia) with Anesthesia Last Oral Intake Last Oral intake: Last Oral Intake NPO since 00:00 08/28/24 12:59 Meds taken in AM with sips of No 08/28/24 12:59 water? 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 - spinner hand: PONV - spinner hand Female HX of Motion Sickness HX of N/V After Surgery Non-Smoker Duration of Surgery greater than 60 minutes Number of Risk Factors PONV Score Height & Weight Height & Weight: Anesthesia: Height & Weight Height 6 ft 08/28/24 12:59 Weight: 89.4 kg 08/28/24 12:59 Body Mass Index (BMI) 26.7 08/28/24 12:59 Respiratory Assessment Respiratory Assessment - spinner hand: Respiratory Tract Infection Hx - spinner hand Hx Respiratory Tract Infection No 08/28/24 03:35 Any additional information?: Yes Hx Respiratory Tract Infection: Yes (Patient has had a on and off cough for about couple weeks.) STOP Sleep Apnea STOP Sleep Apnea - spinner hand: STOP Sleep Apnea - spinner hand Hx Hypertension No 08/27/24 15:23 Hx Sleep Apnea No 08/26/24 22:34 CPAP BIPAP Do you snore loudly (louder No 08/26/24 22:34 than talking or can be heard Do you often feel tired/ No 08/26/24 22:34 fatigued/ sleepy during daytime? Has anyone observed you stop No 08/26/24 22:34 breathing during sleep? STOP Results Negative 08/26/24 22:34 QUESTION #5 FULL TEXT : Do you snore loudly (louder than talking or can be heard through closed doors)? 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 Specify any problems Hx of Preganancy in last 3 N/A 08/26/24 22:34 Months Nurse Filling Out Transfusion TWOLF 08/26/24 22:34 & Questions: Date: 08/26/24 08/26/24 22:34 Time: 22:36 08/26/24 22:34 Patient unable to answer at this time (ie. confused, unrespo /Reproduction History /Reproductive History - spinner hand: /Reproductive Hx- spinner hand Hx Now No 08/28/24 03:35 Gestational Age (in weeks): EDC: Hx Hx Para Hx Section SAB No 08/28/24 03:35 Active Medications Active Medications: Current Medications Generic Name Dose Route Start Last Admin Trade Name Freq PRN Reason Stop Dose Admin Acetaminophen 650 mg 08/26/24 22:07 Acetaminophen 325 Mg Tablet PO Q4H PRN PRN Fever, pain 1-10/10 Acetaminophen 650 mg 08/26/24 22:07 Acetaminophen 650 Mg Suppository RC Q4H PRN PRN Fever, pain 1-10 Al Hydroxide/Mg Hydroxide 30 ml 08/26/24 22:07 Mag Hydrox/Al Hydrox/Simeth 30 Ml Udc PO Q6H PRN PRN Gastric Burning Albuterol Sulfate 2.5 mg 08/26/24 22:07 Albuterol 2.5 Mg/3 Ml Vial.Neb. INHALATION Q2H PRN PRN Dyspnea, wheezing Calamine/Phenol 1 applic 08/27/24 10:00 08/27/24 22:26 Menthol/Lanolin/Calamine/Znox 113 Gm Tube TOPICAL 1 applic BID DEMARCO Administration Protocol Folic Acid 1 mg 08/27/24 08:00 08/28/24 09:56 Folic Acid 1 Mg Tablet PO Not Given BREAKFAST DEMARCO Guaifenesin 20 ml 08/26/24 22:07 Guaifenesin 10 Ml Udc (200mg/10ml) PO Q4H PRN PRN COUGH Hydralazine HCl 10 mg 08/26/24 22:07 Hydralazine 20 Mg/Ml Vial IV Q4H PRN PRN SBP > 160 Protocol Ceftriaxone Sodium 1 gm in 50 mls @ 100 mls/hr 08/27/24 22:00 08/27/24 22:54 Rocephin IV Infused 2200 DEMARCO Infusion Pantoprazole Sodium 80 mg/ 100 mls @ 10 mls/hr 08/26/24 22:07 08/28/24 06:28 Sodium Chloride CONT INF 10 mls/hr Q10H DEMARCO Administration Sodium Chloride 100 mls @ 15 mls/hr 08/26/24 22:08 08/28/24 03:07 IV 0 mls/hr .Q6H40M PRN Infusion Saline Flush Sodium Chloride 100 mls @ 15 mls/hr 08/26/24 22:08 IV .Q6H40M PRN Additional IVPB Infusion Lorazepam 2 mg 08/26/24 22:07 Lorazepam 2 Mg/Ml Wch Syringe IV UD PRN CIWA score >/=15. Protocol Lorazepam 2 mg 08/26/24 22:07 Lorazepam 2 Mg/Ml Wch Syringe IV Q2H PRN PRN CIWA score > 8 but <15 Protocol Lorazepam 2 mg 08/26/24 22:07 Lorazepam 1 Mg Tablet PO UD PRN CIWA score >/=15. Protocol Lorazepam 2 mg 08/26/24 22:07 Lorazepam 1 Mg Tablet PO Q2H PRN PRN CIWA score > 8 but <15 Protocol Magnesium Chloride 128 mg 08/27/24 10:00 08/28/24 10:14 Magnesium Chloride 64 Mg Delay Rel.Tablet PO Not Given BID [facility] Melatonin 3 mg 08/26/24 22:07 Melatonin 3 Mg Tablet PO QHS PRN PRN INSOMNIA Multivitamins/Minerals 1 tablet 08/27/24 08:00 08/28/24 09:56 Multivitamins,Ther W-Minerals Tablet PO Not Given BREAKFAST [facility] Ondansetron HCl 4 mg 08/26/24 22:07 Ondansetron 4 Mg/2 Ml Vial IV Q8H PRN PRN NAUSEA/VOMITING Prochlorperazine Edisylate 5 mg 08/26/24 22:07 Prochlorperazine 10 Mg/2 Ml Vial IV Q4H PRN PRN Breakthrough nausea/vomiting Sodium Chloride 10 - 40 ml 08/26/24 22:08 0.9% Saline Lock 10 Ml Syringe IV UD PRN SALINE FLUSH Thiamine HCl 100 mg 08/27/24 08:00 08/28/24 09:56 Thiamine Hydrochloride 100 Mg Tablet PO Not Given BREAKFAST [facility] Venlafaxine HCl 37.5 mg 08/27/24 10:00 08/28/24 10:14 Venlafaxine Xr 37.5 Mg Capsule PO Not Given DAILY [facility] PFSH Medical History Migraines Difficulty walking Urge incontinence Acute cystitis with hematuria Muscle weakness Osteoarthritis Alcoholic hepatitis Alcoholic liver disease Acute respiratory failure with hypoxia Metabolic encephalopathy Major depression Protein calorie malnutrition Acute post-hemorrhagic anemia Dysphagia, oropharyngeal phase Malignant neoplasm of colon Ulcer Restless legs Injury of head and neck Anemia Alcohol abuse Bipolar disorder Hypothyroidism Osteoporosis Kidney stones GERD (gastroesophageal reflux disease) GI bleed Former smoker Home Medications ?Medication ?Instructions ?Recorded ?Last Taken ?Type calcium carbonate (Tums) 200 mg PO BID PRN dyspepsia 07/23/24 Unknown History cholecalciferol (vitamin D3) 1,250 1,250 mcg PO 2XW Unknown History mcg (50,000 unit) capsule cyanocobalamin (vitamin B-12) 1,000 mcg IM QMONTH 07/12 07/08 Unknown History 1,000 mcg/mL injection solution folic acid 1 mg tablet 1 mg PO QDAY 07/23/24 Unknow n History ipratropium 0.5 mg-albuterol 3 mg 3 ml inhalation Q4H PRN shortness 07/23/24 Unknown History (2.5 mg base)/3 mL nebulization of breath soln lidocaine 4 % topical gel 1 applic topical HS 07/23/24 Unknown History magnesium glycinate 100 mg (as 100 mg PO BID 07/23/24 Unknown History glycinate) tablet (Mag Glycinate) magnesium oxide 400 mg PO QDAY 07/23/24 Unkn own History pantoprazole 40 mg tablet,delayed 40 mg PO BID GERD Unknown History release prednisone 50 mg tablet 50 mg PO QDAY 07/23/24 Unkno wn History thiamine HCl (vitamin B1) 100 mg 100 mg PO QDAY Unknown History tablet venlafaxine 37.5 mg 37.5 mg PO QDAY 07/23/24 Unk nown History capsule,extended release 24 hr zinc oxide 20 % topical paste 1 ea topical Q8H PRN ski n 07/23/24 Unknown History irritation Allergy/AdvReac Type Severity Reaction Status Date / Time amoxicillin Allergy Intermediate Swelling, Verified 08/26/24 14:11 itching Family History Mother Alcohol abuse CAD (coronary artery disease) Heart disease Hypertension Myocardial infarction Father Alcohol abuse Cancer Surgical History History of total knee arthroplasty History of right hip replacement H/O total hysterectomy Social History household members: none Smoking Status: Never smoker alcohol intake: current alcohol intake frequency: 3 or more drinks per day details: Notes binge drinking, whiskey. substance use type: other details: Former cannabis usage. Stopped ~ 40 years ago. Review of Systems (Anesthesia) ROS Narrative System reviewed and no additional complaints, except as documented. 08/28/24 1317 <Electronically signed by Mikael sanches MD> Date _ Mikael Mariscal Signature: Date CC: ~ Signed [facility] Work Phone: [phone] Consult note [facility] Medical Records Department [address] [place] [address] Anesthesia Postop Eval I 08/28/241452 MR#: [id number] Acct: [id number] Name: KENYATTA CARRILLO Rep #:[id number] : 1960 63 From: Yang Vicente PCP: Dr. Naye Sheets MD Status:ADM I N Y Race: C Location: [place] [address] Anesthesia: Postop Eval I Current Vital Signs Temperature: 98.4 F Pulse Rate: 89 Blood Pressure: 118/101 Respiratory Rate: 18 Pulse Ox: 98 Oxygen Delivery Method: Room Air Assessment Airway patent: Yes Spontaneous unlabored respirations: Yes Mental status: Awake and Calm nausea: No Vomiting: No Anesthesia Complication: No Fluid Hydration Crystalloid volume administer (ml): 40 Total IV fluid infused: 40 Progress Note Anesthesia document: Postop Eval 1 completed: Yes 08/28/243 > Date _ Yang Mariscal Signature: Date CC: ~ Signed [facility]04-17-2025 Procedure note [facility] Medical Records Department [address] [place] [address] EGD Report MR#: [id number] Acct: [id number] Name: KENYATTA CARRILLO Rep #:[id number] : 1960 63 From: Troy Self DO PCP: Dr. Naye Sheets MD Status:ADM I N Patient Name: Kenyatta Carrilol Procedure Date: 08/28/2024 1:04 PM Date of : 1960 Age: 63 Procedure: Upper GI endoscopy Indications: Hematemesis, Melena, Suspected upper gastrointestinal bleeding Providers: Troy Self DO Medicines: Monitored Anesthesia Care Patient Profile: This is a 63 year old female. Refer to note in patient chart for documentation of history and physical. Patient has symptoms of dysphagia with solids, acute nausea, acute throat burning and acute vomiting. Complications: No immediate complications. Procedure: Pre-Anesthesia Assessment: - Prior to the procedure, a History and Physical was performed, and patient medications and allergies were reviewed. The patient is competent. The risks and benefits of the procedure and the sedation options and risks were discussed with the patient. All questions were answered and informed consent was obtained. Patient identification and proposed procedure were verified by the physician in the pre-procedure area. Mental Status Examination: alert and oriented. Airway Examination: normal oropharyngeal airway and neck mobility. Respiratory Examination: clear to auscultation. CV Examination: normal. Prophylactic Antibiotics: The patient does not require prophylactic antibiotics. Prior Anticoagulants: The patient has taken no anticoagulant or antiplatelet agents. ASA Grade Assessment: II - A patient with mild systemic disease. After reviewing the risks and benefits, the patient was deemed in satisfactory condition to undergo the procedure. The anesthesia plan was to use monitored anesthesia care (MAC). Immediately prior to administration of medications, the patient was re-assessed for adequacy to receive sedatives. The heart rate, respiratory rate, oxygen saturations, blood pressure, adequacy of pulmonary ventilation, and response to care were monitored throughout the procedure. The physical status of the patient was re-assessed after the procedure. After obtaining informed consent, the endoscope was passed under direct vision. Throughout the procedure, the patient's blood pressure, pulse, and oxygen saturations were monitored continuously. The gastroscope was introduced through the mouth, and advanced to the fourth part of the duodenum. Small bowel enteroscopy was deemed necessary. The Endoscope was introduced through the and advanced to the. The upper GI endoscopy was accomplished without difficulty. The patient tolerated the procedure well. Scope In: 2:40:53 PM Scope Out: 2:45:09 PM Total Procedure Duration Time 0 hours 4 minutes 16 seconds Findings: LA Grade D (one or more mucosal breaks involving at least 75% of esophageal circumference) esophagitis with bleeding was found 31 to 40 cm from the incisors. Biopsies were taken with a cold forceps for histology. Verification of patient identification for the specimen was done. Estimated blood loss was minimal. A large hiatal hernia was present. Diffuse moderate inflammation characterized by congestion (edema), erosions and erythema was found in the duodenal bulb. Impression: - LA Grade D erosive esophagitis with bleeding. Biopsied. - Large hiatal hernia. - Acute duodenitis. Recommendation: - [facility]. - Full liquid diet today. - Continue present medications. - Await pathology results. - Repeat upper endoscopy to check healing. Procedure Code(s): --- Professional --- 97664, Small intestinal endoscopy, enteroscopy beyond second portion of duodenum, not including ileum; with biopsy, single or multiple CPT copyright 2021 [employer]. All rights reserved. The codes documented in this report are preliminary and upon quality control tech review may be revised to meet current compliance requirements. Troy Self DO 08/28/2024 2:50:25 PM This report has been signed electronically. Number of Addenda: 0 Note Initiated On: 08/28/2024 1:04 PM 08/28/24 8870 Date _ Troy Garzaignnarinder Signature: Date (if indicated) CC: Dr. Naye Sheets MD; Troy Self DO ~ Date Dictated: 04/17/25 1304 Date Transcribed: Lab Scientist: RF Signed [facility]04-17-2025 Procedure note [facility] Medical Records Department [address] [place] [address] Operative Report - CC Letter MR#: [id number] Acct: [id number] Name: KENYATTA CARRILLO Rep #:[id number] : 1960 63 From: Troy Self DO PCP: Dr. Naye Sheets MD Status:ADM I N 08/28/2024 Naye Sheets Re : Upper GI endoscopy procedure for Kenyatta Carrillo Dear Kortney This procedure was performed on August. My impressions and recommendations are as follows: Impressions : - LA Grade D erosive esophagitis with bleeding. Biopsied. - Large hiatal hernia. - Acute duodenitis. Recommendations : - [facility]. - Full liquid diet today. - Continue present medications. - Await pathology results. - Repeat upper endoscopy to check healing. My findings are described in the full procedure note, which is enclosed. If I can be of further assistance, please feel free to contact me at . Sincerely, Troy Self DO 08/28/2024 2:50:25 PM This report has been signed electronically. 08/28/24 1450 Date _ Troy Yoon Signature: Date (if indicated) CC: Dr. Tiff Ramires MD; Dr. Deven Porter MD; Dr. Naye Sheets MD ~ Date Dictated: 08/28/241303 Date Transcribed: Lab Scientist: RF Signed [facility]04-17-2025 Consult note [facility] Medical Records Department [address] [place] [address] Pre-Anesthesia Evaluation 08/28/241308 MR#: [id number] Acct: [id number] Name: KENYATTA CARRILLO Rep #:[id number] : 1960 63 From: Mikael Vargas MD PCP: Dr. Naye Sheets MD Status:ADM I N Y Race: C Location: [place] [address] - ADDENDUM by Dr. Mikael Vargas MD on 08/28/24 at 1320 Addendum Patient does have an expiratory wheeze on physical exam. We will give her a nebulizer treatment prior to procedure. 08/28/24 1320 la MD> Date _ Mikael Vargas MD cc: ~* Signed ASA Classification* ASA Classification ASA Classification: 3 Assessment & Plan Anesthesia* Anesthesia Assessment Anesthesia Assessment: Discussed sedation and/or anesthesia options, risks, benefits, and alternatives with patient/parents/legal guardian/POA. Questions invited. The patient/parents/legal guardian/POA seems to understand and agrees to proceedwith anesthesia plan. Reviewed the physical assessment, medical history, allergy history and patient home medications list prior to surgery/procedure/anesthetic and documented any changes. Performed airway and anesthesia risk assessments. Anesthesia Type Anesthesia Type: MAC History Source History Obtained from:: Patient and Chart Anesthesia Focused Assessment* Temperature: 97.3 F Pulse Rate: 81 Blood Pressure: 128/70 Respiratory Rate: 16 Pulse Ox: 99 Oxygen Delivery Method: Room Air Airway Assessment Mouth opens: >3 cm Mallampati Score: I Teeth Condition: Missing (Patient is edentulous.) Neck Range of motion (ROM): Limited ROM (Slight decrease in extension) Focused Labs Anesthesia Preop lab: CBC WBC 3.9 K/mm3 (4.4-11.0) L 08/28/24 04:52 08/28/24 RBC 3.52 M/mm3 (4.2-5.4) L 08/28/24 04:52 08/28/24 Hgb 10.6 g/dL (12.0-15.0) L 08/28/24 04:52 5 Hct 32.2 % (37-47) L 08/28/24 04:52 08/28/24 Plt Count 231 K/mm3 (150-450) 08/28/24 04:52 08/28/24 CHEMISTRY Potassium 3.4 mmol/L (3.3-5.1) 08/28/24 04:52 08/28/24 Sodium 139 mmol/L (133-145) 08/28/24 04:52 08/28/24 Magnesium 1.4 mg/dL (1.5-2.2) L 08/28/24 04:52 08/28/24 Phosphorus 3.6 mg/dL (2.7-4.5) 08/28/24 04:52 08/28/24 BUN 4 mg/dL (4-19) 08/28/24 04:52 08/28/24 Creatinine 0.62 mg/dL (0.70-1.20) L 08/28/24 04:52 Glucose 97 mg/dL (70-99) 08/28/24 04:52 08/28/24 TSH 6.550 uIU/mL (0.300-4.200) H 08/28/24 04:52 COAG PT 15.2 SECONDS (11.7-14.9) H 08/26/24 14:30 08/12 10/05 Pre-Assessment Diagnosis/Proposed Procedure Planned Operative Procedure(s): Esophagogastroduodenoscopy Anesthesia History Anesthesia History - spinner hand: Anesthesia History - spinner hand Hx Hospitalization No 07/03/19 19:44 Any Problems With Anesthesia No 08/28/24 03:35 Cholinesterase deficiency No 08/28/24 03:35 You/Your Family Experience No 08/28/24 03:35 fever (hyperthermia) with Relationship Recent Exposure to Contagious No 08/28/24 03:35 Disease Does patient have nerve No 08/28/24 03:35 stimulator Patient instructed to have No 08/28/24 03:35 device shut off --Does patient have Pacemaker No 08/28/24 12:59 or ICD? When Was Last Pacemaker Check QUESTION #4 FULL TEXT: You/Your Family Experience fever (hyperthermia) with Anesthesia Last Oral Intake Last Oral intake: Last Oral Intake NPO since 00:00 08/28/24 12:59 Meds taken in AM with sips of No 08/28/24 12:59 water? 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 - spinner hand: PONV - spinner hand Female HX of Motion Sickness HX of N/V After Surgery Non-Smoker Duration of Surgery greater than 60 minutes Number of Risk Factors PONV Score Height & Weight Height & Weight: Anesthesia: Height & Weight Height 6 ft 08/28/24 12:59 Weight: 89.4 kg 08/28/24 12:59 Body Mass Index (BMI) 26.7 08/28/24 12:59 Respiratory Assessment Respiratory Assessment - spinner hand: Respiratory Tract Infection Hx - spinner hand Hx Respiratory Tract Infection No 08/28/24 03:35 Any additional information?: Yes Hx Respiratory Tract Infection: Yes (Patient has had a on and off cough for about couple weeks.) STOP Sleep Apnea STOP Sleep Apnea - spinner hand: STOP Sleep Apnea - spinner hand Hx Hypertension No 08/27/24 15:23 Hx Sleep Apnea No 08/26/24 22:34 CPAP BIPAP Do you snore loudly (louder No 08/26/24 22:34 than talking or can be heard Do you often feel tired/ No 08/26/24 22:34 fatigued/ sleepy during daytime? Has anyone observed you stop No 08/26/24 22:34 breathing during sleep? STOP Results Negative 08/26/24 22:34 QUESTION #5 FULL TEXT : Do you snore loudly (louder than talking or can be heard through closeddoors)? 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 Specify any problems Hx of Preganancy in last 3 N/A 08/26/24 22:34 Months Nurse Filling Out Transfusion TWOLF 08/26/24 22:34 & Questions: Date: 08/26/24 08/26/24 22:34 Time: 22:36 08/26/24 22:34 Patient unable to answer at this time (ie. confused, unrespo /Reproduction History /Reproductive History - spinner hand: /Reproductive Hx- spinner hand Hx Now No 08/28/24 03:35 Gestational Age (in weeks): EDC: Hx Hx Para Hx Section SAB No 08/28/24 03:35 Active Medications Active Medications: Current Medications Generic Name Dose Route Start Last Admin Trade Name Freq PRN Reason Stop Dose Admin Acetaminophen 650 mg 08/26/24 22:07 Acetaminophen 325 Mg Tablet PO Q4H PRN PRN Fever, pain 1-10/10 Acetaminophen 650 mg 08/26/24 22:07 Acetaminophen 650 Mg Suppository RC Q4H PRN PRN Fever, pain 1-10 Al Hydroxide/Mg Hydroxide 30 ml 08/26/24 22:07 Mag Hydrox/Al Hydrox/Simeth 30 Ml Udc PO Q6H PRN PRN Gastric Burning Albuterol Sulfate 2.5 mg 08/26/24 22:07 Albuterol 2.5 Mg/3 Ml Vial.Neb. INHALATION Q2H PRN PRN Dyspnea, wheezing Calamine/Phenol 1 applic 08/27/24 10:00 08/27/24 22:26 Menthol/Lanolin/Calamine/Znox 113 Gm Tube TOPICAL 1 applic BID DEMARCO Administration Protocol Folic Acid 1 mg 08/27/24 08:00 08/28/24 09:56 Folic Acid 1 Mg Tablet PO Not Given BREAKFAST DEMARCO Guaifenesin 20 ml 08/26/24 22:07 Guaifenesin 10 Ml Udc (200mg/10ml) PO Q4H PRN PRN COUGH Hydralazine HCl 10 mg 08/26/24 22:07 Hydralazine 20 Mg/Ml Vial IV Q4H PRN PRN SBP > 160 Protocol Ceftriaxone Sodium 1 gm in 50 mls @ 100 mls/hr 08/27/24 22:00 08/27/24 22:54 Rocephin IV Infused 2200 DEMARCO Infusion Pantoprazole Sodium 80 mg/ 100 mls @ 10 mls/hr 08/26/24 22:07 08/28/24 06:28 Sodium Chloride CONT INF 10 mls/hr Q10H DEMARCO Administration Sodium Chloride 100 mls @ 15 mls/hr 08/26/24 22:08 08/28/24 03:07 IV 0 mls/hr .Q6H40M PRN Infusion Saline Flush Sodium Chloride 100 mls @ 15 mls/hr 08/26/24 22:08 IV .Q6H40M PRN Additional IVPB Infusion Lorazepam 2 mg 08/26/24 22:07 Lorazepam 2 Mg/Ml Wch Syringe IV UD PRN CIWA score >/=15. Protocol Lorazepam 2 mg 08/26/24 22:07 Lorazepam 2 Mg/Ml Wch Syringe IV Q2H PRN PRN CIWA score > 8 but <15 Protocol Lorazepam 2 mg 08/26/24 22:07 Lorazepam 1 Mg Tablet PO UD PRN CIWA score >/=15. Protocol Lorazepam 2 mg 08/26/24 22:07 Lorazepam 1 Mg Tablet PO Q2H PRN PRN CIWA score > 8 but <15 Protocol Magnesium Chloride 128 mg 08/27/24 10:00 08/28/24 10:14 Magnesium Chloride 64 Mg Delay Rel.Tablet PO Not Given BID DEMARCO Melatonin 3 mg 08/26/24 22:07 Melatonin 3 Mg Tablet PO QHS PRN PRN INSOMNIA Multivitamins/Minerals 1 tablet 08/27/24 08:00 08/28/24 09:56 Multivitamins,Ther W-Minerals Tablet PO Not Given BREAKFAST DEMARCO Ondansetron HCl 4 mg 08/26/24 22:07 Ondansetron 4 Mg/2 Ml Vial IV Q8H PRN PRN NAUSEA/VOMITING Prochlorperazine Edisylate 5 mg 08/26/24 22:07 Prochlorperazine 10 Mg/2 Ml Vial IV Q4H PRN PRN Breakthrough nausea/vomiting Sodium Chloride 10 - 40 ml 08/26/24 22:08 0.9% Saline Lock 10 Ml Syringe IV UD PRN SALINE FLUSH Thiamine HCl 100 mg 08/27/24 08:00 08/28/24 09:56 Thiamine Hydrochloride 100 Mg Tablet PO Not Given BREAKFAST [facility] Venlafaxine HCl 37.5 mg 08/27/24 10:00 08/28/24 10:14 Venlafaxine Xr 37.5 Mg Capsule PO Not Given DAILY DEMARCO PFSH Medical History Migraines Difficulty walking Urge incontinence Acute cystitis with hematuria Muscle weakness Osteoarthritis Alcoholic hepatitis Alcoholic liver disease Acute respiratory failure with hypoxia Metabolic encephalopathy Major depression Protein calorie malnutrition Acute post-hemorrhagic anemia Dysphagia, oropharyngeal phase Malignant neoplasm of colon Ulcer Restless legs Injury of head and neck Anemia Alcohol abuse Bipolar disorder Hypothyroidism Osteoporosis Kidney stones GERD (gastroesophageal reflux disease) GI bleed Former smoker Home Medications ?Medication ?Instructions ?Recorded ?Last Taken ?Type calcium carbonate (Tums) 200 mg PO BID PRN dyspepsia 07/23/24 Unknown History cholecalciferol (vitamin D3) 1,250 1,250 mcg PO 2XW Unknown History mcg (50,000 unit) capsule cyanocobalamin (vitamin B-12) 1,000 mcg IM QMONTH 07/12 07/08 Unknown History 1,000 mcg/mL injection solution folic acid 1 mg tablet 1 mg PO QDAY 07/23/24 Unknow n History ipratropium 0.5 mg-albuterol 3 mg 3 ml inhalation Q4H PRN shortness 07/23/24 Unknown History (2.5 mg base)/3 mL nebulization of breath soln lidocaine 4 % topical gel 1 applic topical HS 07/23/24 Unknown History magnesium glycinate 100 mg (as 100 mg PO BID 07/23/24 Unknown History glycinate) tablet (Mag Glycinate) magnesium oxide 400 mg PO QDAY 07/23/24 Unkn own History pantoprazole 40 mg tablet,delayed 40 mg PO BID GERD Unknown History release prednisone 50 mg tablet 50 mg PO QDAY 07/23/24 Unkno wn History thiamine HCl (vitamin B1) 100 mg 100 mg PO QDAY Unknown History tablet venlafaxine 37.5 mg 37.5 mg PO QDAY 07/23/24 Unk nown History capsule,extended release 24 hr zinc oxide 20 % topical paste 1 ea topical Q8H PRN ski n 07/23/24 Unknown History irritation Allergy/AdvReac Type Severity Reaction Status Date / Time amoxicillin Allergy Intermediate Swelling, Verified 08/26/24 14:11 itching Family History Mother Alcohol abuse CAD (coronary artery disease) Heart disease Hypertension Myocardial infarction Father Alcohol abuse Cancer Surgical History History of total knee arthroplasty History of right hip replacement H/O total hysterectomy Social History household members: none Smoking Status: Never smoker alcohol intake: current alcohol intake frequency: 3 or more drinks per day details: Notes binge drinking, whiskey. substance use type: other details: Former cannabis usage. Stopped ~ 40 years ago. Review of Systems (Anesthesia) ROS Narrative System reviewed and no additional complaints, except as documented. 08/28/24 1317 verónica GASTON> Date _ Mikael Vargas MD Cosigner Signature: Date CC: ~ Signed [facility]04-17-2025 Progress note Author Deven Porter [facility] Note Date/Time August 28, 2024 8:1 0[facility] Medical Records Department [address] [place] [address] Progress Note - Hospitalist 08/28/24 0715 MR#: [id number] Acct: [id number] Name: KENYATTA CARRILLO Rep #:[id number] : 1960 63 From: Deven Porter MD PCP: Dr. 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; [place] Count >100,000 CFU/mL Objective Data Objective Data Vital Signs: Vital Signs Temp Pulse Resp BP Pulse Ox O2 Del Method 98.1 F 93 18 127/85 H 98 Room Air 04/17/25 03:29 08/28/24 03:29 08/28/24 03:29 08/28/24 03:29 08/28/24 03:29 08/28/24 03:29 Oxygen Delivery Method Room Air Weight: 89.4 kg Body Mass Index (BMI) 26.7 Intake & Output: Intake and Output for Last 24 Hours 08/26/24 08/27/24 08/28/24 23:59 23:59 23:59 Intake Total 1385 / 1385 2350.67 / 2350.67 167.25 / 167.25 Output Total 100 / 100 Balance 1285 / 1285 2350.67 / 2350.67 167.25 / 167.25 Lab / Micro Data 08/28/24 04:52 08/28/24 04:52 Labs: Laboratory Results - last 24 hr 08/27/24 07:00: WBC 12.8 H, RBC 3.76 L, Hgb 11.4 L, Hct 33.3 L, MCV 88.6, MCH 30.3, MCHC 34.2, RDW Std Deviation 46.3 H, RDW Coeff of Angelo 14.4, Plt Count 341,MPV 8.8, Immature Gran % (Auto) 0.400, Neut % (Auto) 75.5 H, Lymph % (Auto) 13.0L, [place]ether % (Auto) 10.5 H, Eos % (Auto) 0.2, Baso % (Auto) 0.4, Absolute Neuts (auto) 9.7 H, Absolute Lymphs (auto) 1.67, Nucleated RBC % 0, Sodium 139, Potassium 3.2 L, Chloride 102, Carbon Dioxide 22.8, Anion Gap 15, BUN 6, Creatinine 0.63 L, Estim Creat Clear Calc 80.90, Est GFR (MDRD) Non-Af 98, BUN/Creatinine Ratio 9.4 L, Glucose 171 H, Hemoglobin A1c 5.7, Calcium 9.2, TotalBilirubin 0.52, AST 40 H, ALT 16, Alkaline Phosphatase 168 H, Total Protein 6.3,Albumin 2.9 L, Globulin 3.4, Albumin/Globulin Ratio 0.9 08/28/24 04:52: WBC 3.9 L, RBC 3.52 L, Hgb 10.6 L, Hct 32.2 L, MCV 91.5, MCH 30.1, MCHC 32.9, RDW Std Deviation 47.2 H, RDW Coeff of Angelo 14.3, Plt Count 231,MPV 9.3, Immature Gran % (Auto) 0.000, Neut % (Auto) 43.9 L, Lymph % (Auto) 43.7H, Meriwether % (Auto) 9.6, Eos % (Auto) 2.5, Baso % (Auto) 0.3, Absolute Neuts (auto)1.7 L, Absolute Lymphs (auto) 1.72, Nucleated RBC % 0, Sodium 139, Potassium 3.4, Chloride 105, Carbon Dioxide 24.2, Anion Gap 11, BUN 4, Creatinine 0.62 L, Estim Creat Clear Calc 88.12, Est GFR (MDRD) Non-Af 99, BUN/Creatinine Ratio 6.8L, Glucose 97, Calcium 8.7, Phosphorus 3.6, Magnesium 1.4 L, Total Bilirubin 0.43, Direct Bilirubin 0.23, AST 34 H, ALT 15, Alkaline Phosphatase 140 H, TotalProtein 5.7 L, Albumin 2.8 L, Globulin 3.0, TSH 6.550 H Micro: Microbiology 08/26/24 Unknown Urine, Catheterized Urine Culture - Preliminary 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 SKIN: No Rash PSYCH; Flat affect Assessment & Plan Assessment/Plan (1) GI bleed: PLAN: Plan Patient is a 63-year-old lady with history of chronic alcoholic liver disease who presented with progressive generalized weakness as well as coffee-ground emesis admitted to monitored bed for subsequent inpatient evaluation 1. Upper GI bleed ? Admit patient with chronic liver disease. Patient admitted to monitored bed started on Protonix, every 6 H&H ordered consult placed to GI. In view of patient underlying liver disease patient was started on ceftriaxone ? 08/28/2024; patient was seen in consultation by Dr. Larios his notes and recommendations reviewed 2. Anemia secondary to acute blood loss anemia monitoring H&H with plans to transfuse if patient hemoglobin falls below 7 or patient is deemed to be symptomatic 3 Acute cystitis ?Patient had pyuria as well as imaging findings consistent with cystitis. 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 Distended gallbladder with cholelithiasis ? Ordered gallbladder ultrasound for subsequent eval 08/28/2024; patient gallbladder ultrasound did not show 1. Hepatomegaly. 2. Hepatic steatosis. 3. Cholelithiasis without acute cholecystitis. 4. Nondilated biliary tree. 5. Limited evaluation of the pancreas secondary to overlying bowel gas. 5. Acute colitis ? Based on CAT scan findings patient is on antibiotics 6. Chronic alcoholic liver disease ? Followed by hepatology as Outpatient 7. Hypothyroidism ? Patient is on levothyroxine home dose continued 8. Hypokalemia -Corrected per protocol, Repeat potassium levels ordered for a.m.. 9. Depression with anxiety ? Patient is on venlafaxine?continue 10. Hypomagnesemia -Corrected for protocol, ordered repeat magnesium for a.m. 11. Left adnexal cyst, incompletely characterized -: CT with 3.8 cm left adnexal cyst, given patient is postmenopausal age recommended outpatient pelvic ultrasound, patient instructed to follow-up with primary care physician for subsequent care 12. Suspected protein calorie malnutrition ? Consult placed to dietitian 13. DVT prophylaxis ? Bilateral SCDs for now given patient presentation Charges/Coding Visit Charges Inpatient E&M: 79663 Subs Hosp L2 08/28/24 0810 <Electronically signed by Deven Porter MD> Cosigner Signature (if applicable): CC: ~ Signed [facility] Work Phone: [phone]) 981-130104-17-2025 Progress note [facility] Medical Records Department [address] [place] [address] Progress Note - Hospitalist 08/28/2415 MR#: [id number] Acct: [id number] Name: KENYATTA CARRILLO Rep #:[id number] : 1960 63 From: Deven Porter MD PCP: Dr. 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; [place] Count >100,000 CFU/mL Objective Data Objective Data Vital Signs: Vital Signs Temp Pulse Resp BP Pulse Ox O2 Del Method 98.1 F 93 18 127/85 H 98 Room Air 08/28/24 03:29 08/28/24 03:29 08/28/24 03:29 08/28/24 03:29 08/28/24 03:29 08/28/24 03:29 Oxygen Delivery Method Room Air Weight: 89.4 kg Body Mass Index (BMI) 26.7 Intake & Output: Intake and Output for Last 24 Hours 08/26/24 08/27/24 08/28/24 23:59 23:59 23:59 Intake Total 1385 / 1385 2350.67 / 2350.67 167.25 / 167.25 Output Total 100 / 100 Balance 1285 / 1285 2350.67 / 2350.67 167.25 / 167.25 Lab / Micro Data 08/28/24 04:52 08/28/24 04:52 Labs: Laboratory Results - last 24 hr 08/27/24 07:00: WBC 12.8 H, RBC 3.76 L, Hgb 11.4 L, Hct 33.3 L, MCV 88.6, MCH 30.3, MCHC 34.2, RDW Std Deviation 46.3 H, RDW Coeff of Angelo 14.4, Plt Count 341,MPV 8.8, Immature Gran % (Auto) 0.400, Neut % (Auto) 75.5 H, Lymph % (Auto) 13.0L, Mer[place] % (Auto) 10.5 H, Eos % (Auto) 0.2, Baso % (Auto) 0.4,Absolute Neuts (auto) 9.7 H, Absolute Lymphs (auto) 1.67, Nucleated RBC % 0, Sodium 139, Potassium 3.2 L, Chloride 102, Carbon Dioxide 22.8, Anion Gap 15, BUN 6, Creatinine 0.63 L, Estim Creat Clear Calc 80.90, Est GFR (MDRD) Non-Af 98, BUN/Creatinine Ratio 9.4 L, Glucose 171 H, Hemoglobin A1c 5.7,Calcium 9.2, TotalBilirubin 0.52, AST 40 H, ALT 16, Alkaline Phosphatase 168 H, Total Protein 6.3,Albumin 2.9 L, Globulin 3.4, Albumin/Globulin Ratio 0.9 08/28/24 04:52: WBC 3.9 L, RBC 3.52 L, Hgb 10.6 L, Hct 32.2 L, MCV 91.5, MCH 30.1, MCHC 32.9, RDW Std Deviation 47.2 H, RDW Coeff of Angelo 14.3, Plt Count 231,MPV 9.3, Immature Gran % (Auto) 0.000, Neut % (Auto) 43.9 L, Lymph % (Auto) 43.7H, Mer[place] % (Auto) 9.6, Eos % (Auto) 2.5, Baso % (Auto) 0.3, Absolute Neuts (auto)1.7 L, Absolute Lymphs (auto) 1.72, Nucleated RBC % 0, Sodium 139, Potassium 3.4, Chloride 105, Carbon Dioxide 24.2, Anion Gap 11, BUN 4, Creatinine 0.62 L, Estim Creat Clear Calc 88.12, Est GFR (MDRD) Non-Af 99, BUN/Creatinine Ratio 6.8L, Glucose 97, Calcium 8.7, Phosphorus 3.6, Magnesium 1.4 L, Total Bilirubin 0.43, Direct Bilirubin 0.23, AST 34 H, ALT 15, Alkaline Phosphatase 140 H, TotalProtein 5.7 L, Albumin 2.8 L, Globulin 3.0, TSH 6.550 H Micro: Microbiology 08/26/24 Unknown Urine, Catheterized Urine Culture - Preliminary 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 SKIN: No Rash PSYCH; Flat affect Assessment & Plan Assessment/Plan (1) GI bleed: PLAN: Plan Patient is a 63-year-old lady with history of chronic alcoholic liver disease who presented with progressive generalized weakness as well as coffee-ground emesis admitted to monitored bed for subsequent inpatient evaluation 1. Upper GI bleed ? Admit patient with chronic liver disease. Patient admitted to monitored bed started on Protonix, every 6 H&H ordered consult placed to GI. In view of patient underlying liver disease patient was started on ceftriaxone ? 08/28/2024; patient was seen in consultation by Dr. Larios his notes and recommendations reviewed 2. Anemia secondary to acute blood loss anemia monitoring H&H with plans to transfuse if patient hemoglobin falls below 7 or patient is deemed to be symptomatic 3 Acute cystitis ?Patient had pyuria as well as imaging findings consistent with cystitis. 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 Distended gallbladder with cholelithiasis ? Ordered gallbladder ultrasound for subsequent eval 08/28/2024; patient gallbladder ultrasound did not show 1. Hepatomegaly. 2. Hepatic steatosis. 3. Cholelithiasis without acute cholecystitis. 4. Nondilated biliary tree. 5. Limited evaluation of the pancreas secondary to overlying bowel gas. 5. Acute colitis ? Based on CAT scan findings patient is on antibiotics 6. Chronic alcoholic liver disease ? Followed by hepatology as Outpatient 7. Hypothyroidism ? Patient is on levothyroxine home dose continued 8. Hypokalemia -Corrected per protocol, Repeat potassium levels ordered for a.m.. 9. Depression with anxiety ? Patient is on venlafaxine?continue 10. Hypomagnesemia -Corrected for protocol, ordered repeat magnesium for a.m. 11. Left adnexal cyst, incompletely characterized -: CT with 3.8 cm left adnexal cyst, given patient is postmenopausal age recommended outpatient pelvic ultrasound, patient instructed to follow-up with primary care physician for subsequent care 12. Suspected protein calorie malnutrition ? Consult placed to dietitian 13. DVT prophylaxis ? Bilateral SCDs for now given patient presentation Charges/Coding Visit Charges Inpatient E&M: 54701 Subs Hosp L2 08/28/24 0810 Cosigner Signature (if applicable): CC: ~ Signed [facility]04-17-2025 Radiology Diagnostic study note [facility] Imaging Services [address] [facility] [place], [place] [id number] Abdomen Limited MR#: [id number] Acct: [id number] Name: KENYATTA CARRILLO Rep #: [id number] : 1960 F 63 From: El Elkins MD PCP: Dr. Naye Sheets MD Status: ADM I N Study:Abdomen Limited Date of Exam: 08/12 12/05 Exam# [id number] Ordering Dr: Tomy Porter MD PROCEDURE: ABDOMEN LIMITED 08/28/2024 REASON FOR EXAM: GALLSTONES TECHNIQUE: Complete abdominal ultrasound perez-scale images with color doppler. PATIENT PREPARATION: Per protocol COMPARISON: CT scan on 08/26/2024. FINDINGS: Hepatomegaly measuring 18.9 cm. Diffuse increased hepatic echogenicity suggestive of hepatic steatosis. Unremarkable hepatopetal flow in the main portal vein. The gallbladder measures 6 cm in its length. Multiple gallstones are noted without evidence of acute cholecystitis. Negative sonographic Lyman. No pericholecystic free fluid is noted. Unremarkable visualized pancreas. Limited evaluation of the pancreas secondary to overlying bowel gas. Normal gallbladder wall thickness measuring 3 mm. The common bile duct diameter measures 4 mm. Unremarkable right kidney measuring 10.9 x 4.8 x 4.8 cm. Normal right renal cortical thickness measuring 1 cm. US/Abdomen Limited IMPRESSION: 1. Hepatomegaly. 2. Hepatic steatosis. 3. Cholelithiasis without acute cholecystitis. 4. Nondilated biliary tree. 5. Limited evaluation of the pancreas secondary to overlying bowel gas. Reading Location: [place] [address] CC: Dr. Deven Porter MD; Dr. Naye Sheets MD ~ Lab Scientist: Signed [facility]04-16-2025 Discharge summary Author Jesus Flynn [facility] Note Date/Time August 27, 2024 3:2 2pm [facility] Medical Records Department [address] [place] [address] Emergency Department Summary 08/26/24 MR#: [id number] Acct: [id number] Name: KENYATTA CARRILLO Rep #:[id number] : 1960 63 From: Jesus Campoverde PCP: Dr. Naye Sheets MD Status:ADM I N Location: [facility] [id number] HPI History of Present Illness Chief Complaint: GI Bleed Informant: patient Onset/Context/Timing Onset: Today Context: Gradual Onset Timing: Continuous Quality: Aching, burning, sharp Location: Left upper quadrant Worsened by: Nothing Relieved by: Nothing Narrative Narrative: Patient presents with nausea and vomiting that became worse today. Patient states she has been having some vomiting for the past few months. Patient states that she has been vomiting up coffee-ground emesis today. Patient admitsto some left upper quadrant abdominal pain. Patient describes it as aching, burning, and sharp. Patient states nothing makes it worse and nothing makes it better. Patient denies any diarrhea, melena, or hematochezia. Patient does admit to a cough. Patient denies any urinary complaints. Patient admits to drinking alcohol. PFSH PFSH Medical History Migraines Difficulty walking Urge incontinence Acute cystitis with hematuria Muscle weakness Osteoarthritis Alcoholic hepatitis Alcoholic liver disease Acute respiratory failure with hypoxia Metabolic encephalopathy Major depression Protein calorie malnutrition Acute post-hemorrhagic anemia Dysphagia, oropharyngeal phase Malignant neoplasm of colon Ulcer Restless legs Injury of head and neck Anemia Alcohol abuse Bipolar disorder Hypothyroidism Osteoporosis Kidney stones GERD (gastroesophageal reflux disease) GI bleed Former smoker Home Medications ?Medication ?Instructions ?Recorded ?Last Taken ?Type calcium carbonate (Tums) 200 mg PO BID PRN dyspepsia 07/23/24 Unknown History cholecalciferol (vitamin D3) 1,250 1,250 mcg PO 2XW Unknown History mcg (50,000 unit) capsule cyanocobalamin (vitamin B-12) 1,000 mcg IM QMONTH 07/12 07/08 Unknown History 1,000 mcg/mL injection solution folic acid 1 mg tablet 1 mg PO QDAY 07/23/24 Unknow n History ipratropium 0.5 mg-albuterol 3 mg 3 ml inhalation Q4H PRN shortness 07/23/24 Unknown History (2.5 mg base)/3 mL nebulization of breath soln lidocaine 4 % topical gel 1 applic topical HS 07/23/24 Unknown History magnesium glycinate 100 mg (as 100 mg PO BID 07/23/24 Unknown History glycinate) tablet (Mag Glycinate) magnesium oxide 400 mg PO QDAY 07/23/24 Unkn own History pantoprazole 40 mg tablet,delayed 40 mg PO BID GERD Unknown History release prednisone 50 mg tablet 50 mg PO QDAY 07/23/24 Unkno wn History thiamine HCl (vitamin B1) 100 mg 100 mg PO QDAY Unknown History tablet venlafaxine 37.5 mg 37.5 mg PO QDAY 07/23/24 Unk nown History capsule,extended release 24 hr zinc oxide 20 % topical paste 1 ea topical Q8H PRN ski n 07/23/24 Unknown History irritation Allergy/AdvReac Type Severity Reaction Status Date / Time amoxicillin Allergy Intermediate Swelling, Verified 08/26/24 14:11 itching Family History (Updated 08/26/24 @ 19:[address] Tiff Ramires MD) Mother Alcohol abuse CAD (coronary artery disease) Heart disease Hypertension Myocardial infarction Father Alcohol abuse Cancer Surgical History History of total knee arthroplasty History of right hip replacement H/O total hysterectomy Social History (Updated 08/26/24 @ 19:[address] Tiff Ramires MD) household members: none Smoking Status: Never smoker alcohol intake: current alcohol intake frequency: 3 or more drinks per day details: Notes binge drinking, whiskey. substance use type: other details: Former cannabis usage. Stopped ~ 40 years ago. ROS ROS ED Constitutional Constitutional ED: Denies chills or fever(s) Eyes Eyes: Denies blurry vision or change in vision ENT ENT ED: Denies rhinorrhea or sore throat Cardiovascular Cardiovascular: Denies chest pain or palpitations Respiratory/Chest Respiratory/Chest: Reports cough; Denies dyspnea Gastrointestinal Gastrointestinal: Reports abdominal pain, nausea and vomiting Genitourinary Genitourinary ED: Denies dysuria or hematuria Musculoskeletal Musculoskeletal: Reports back pain; Denies neck pain Integumentary Denies abscess or rash Neurologic Neurologic: Denies headache(s) or weakness Allergic/Immunologic Allergic/Immunologic ED: Denies mouth swelling or urticaria EXAM Physical Exam Const Vital Signs: 08/26/24 16:11 08/26/24 18:00 Pulse Rate 87 114 H Respiratory Rate 15 25 H Blood Pressure 157/96 H 131/78 H Blood Pressure Mean 116 95 Pulse Ox 98 92 Oxygen Delivery Method Room Air Room Air Positive well nourished and well developed General Appearance ED: well developed and NAD HEENT Reports moist mucous membranes Neck supple Resp normal respiratory effort and clear to auscultation bilaterally Cardio regular rate and regular rhythm GI non-distended Palpation: soft and tender LUQ; Negative for guarding or rebound tenderness present Extremity normal to inspection General Extremety ED: Negative for edema or tenderness General Extremity: Negative for edema Neuro oriented x3, CN's II-XII intact bilaterally and no sensory deficits noted Sensorium / Orientation: alert Motor Exam: strength 5/5 throughout Psych mental status grossly normal MDM MDM MDM Narrative Medical decision making narrative: Differential diagnosis includes but is not limited to gastrointestinal bleeding,alcoholic gastritis, pancreatitis, cholecystitis, cholelithiasis, anemia, and electrolyte abnormality. CBC will be obtained to assess for leukocytosis and anemia. Comprehensive metabolic profile will be obtained to assess for hepatic function, renal function, and electrolyte abnormality. Lipase will be obtained to assess for pancreatitis. PT with INR and PTT will be obtained to assess for coagulopathy. Urinalysis will be obtained to assess for urinary tract infectionand hematuria. CT scan of the abdomen and pelvis will be obtained to assess forbowel obstruction and perforation. Lab Data Attestation: I reviewed the patient's lab results. Lab results narrative: CBC was reviewed. There is a mild leukocytosis of 12.4. Hemoglobin was stable at 13.6 and hematocrit of 40.9. Platelets were slightly elevated at 505. PT with INR and PTT were reviewed. Pro time was 15.2 and INR is 1.2. Comprehensive metabolic profile was reviewed. Potassium was low at 2.6. Chloride was slightly low at 95. Glucose was slightly elevated at 150. Alkaline phosphatase was slightly elevated at 180. AST was slightly elevated at39. Lipase was reviewed and was normal at 28. Serum alcohol level was reviewedand was elevated 279. Urinalysis was reviewed. Leukocyte esterase was 500 withpositive nitrites. Labs: Laboratory Results - last 24 hr 08/26/24 08/26/24 14:30 17:29 WBC 12.8 H RBC 4.50 Hgb 13.6 Hct 40.9 MCV 90.9 MCH 30.2 MCHC 33.3 RDW Std Deviation 47.0 H RDW Coeff of Angelo 14.2 Plt Count 505 H MPV 9.0 Immature Gran % (Auto) 0.500 Neut % (Auto) 48.6 Lymph % (Auto) 42.1 H Meriwether % (Auto) 6.6 Eos % (Auto) 1.5 Baso % (Auto) 0.7 Absolute Neuts (auto) 6.2 Absolute Lymphs (auto) 5.38 H Nucleated RBC % 0 Platelet Estimate MOD INC PT 15.2 H INR 1.2 APTT 29.5 Sodium 140 Potassium 2.6 L* Chloride 95 L Carbon Dioxide 21.5 Anion Gap 23 H BUN 6 Creatinine 0.69 L Estim Creat Clear Calc 80.90 Est GFR (MDRD) Non-Af 96 BUN/Creatinine Ratio 8.3 L Glucose 150 H Calcium 10.0 Phosphorus 5.0 H Magnesium 1.4 L Total Bilirubin 0.28 AST 39 H ALT 21 Alkaline Phosphatase 180 H Total Protein 7.1 Albumin 3.3 L Globulin 3.9 Albumin/Globulin Ratio 0.8 L Lipase 28 Urine Color Yellow Urine Clarity Cloudy Urine pH 6.0 Ur Specific Milton 1.015 Urine Protein 30 H Urine Glucose (UA) Normal Urine Ketones Negative Urine Occult Blood 25 H Urine Nitrite Positive H Urine Bilirubin Negative Urine Urobilinogen Normal Ur Leukocyte Esterase 500 H Urine RBC 0-5 SEEN Urine WBC >100 SEEN Ur Squamous Epith Cells 0-5 SEEN Ur Transition Epith Cell 0-5 SEEN Urine Bacteria 3+ Urine Mucus 0 SEEN Ethyl Alcohol 279.0 H Blood Type O POSITIVE Antibody Screen NEGATIVE Radiography Diagnostic Testing: Clinical Impression(s) from Imaging Studies Abdomen/Pelvis CT 08/26/24 15:09 IMPRESSION: 1. Correlate for trace pancreatitis. Similar 12 mm calculus either within or adjacent to the main pancreatic duct with upstream pancreatic ductal dilatation. Given ductal dilatation, recommend clinical follow-up including outpatient pancreatic protocol MRI with and without contrast and with MRCP. 2. Findings suggest cystitis. Correlate with urinalysis. 3. Hiatal hernia with redemonstrated minimally imaged moderate to marked esophageal wall thickening suggesting esophagitis, better seen previously. Unable to exclude underlying neoplasm. Recommend clinical follow-up to exclude this possibility. 4. Distended gallbladder with cholelithiasis. No convincing inflammation. If there is concern, consider RIGHT upper quadrant ultrasound and/or HIDA. 5. Mild wall thickening versus underdistention of the descending and rectosigmoid colon. Correlate for very mild colitis. No adjacent inflammatory changes to confirm this. 6. Enlarged appendix without convincing adjacent inflammation to confirm acute appendicitis. Correlation with presentation and exam is necessary. This could reflect backwash inflammation related to colitis,if present. 7. Increased nonspecific stranding in the LEFT flank and bilateral gluteal regions. Correlate with exam for clinical evidence of cellulitis or possible contusion given an appropriate history of trauma. 8. 3.8 cm LEFT adnexal cyst, incompletely characterized by CT. Given the patient is postmenopausal, recommend outpatient pelvic ultrasound for more definitive characterization. 9. Hepatic steatosis has improved slightly. Correlate with clinical and laboratory evidence of chronic liver disease. 10. Additional description as above. Reading Location: [id number] Hip/Pelvis X-Ray 08/26/24 18:16 IMPRESSION: No acute fracture. Postop changes as described above. Severe narrowing of the left hip joint. [facility] the abdomen pelvis was obtained. There is questionable trace pancreatitis. There is a distended gallbladder and cholelithiasis. There is noevidence of inflammation or cholecystitis. There is wall thickening of the descending and rectosigmoid colon. This was interpreted by the radiologist was also independently reviewed by myself. Management Discussion w/another healthcare provider: Hospitalist and health worker/Case management Treatment and Re-Evaluation :: Patient was given IV fluids. Patient was ordered oral potassium but was unable to tolerate this. Patient was given Zofran. Patient was given IV potassium. Patient was given a dose of Protonix. Patient was given a dose of Rocephin. Case was discussed with the hospitalist. She will admit the patient to her service. On reevaluation, patient was complaining of pain in her left hip. X-rays of the left hip will be obtained to assess for fracture or dislocation. Clinically, I do not feel there is a fracture or dislocation of her hip. Patient understood and was agreeable with the plan. All questions were answered. Discharge Plan Dx/Rx/DC Orders Clinical Impression: Upper GI bleed, Urinary tract infection, Alcohol intoxication Disposition Disposition: [facility] Discharge Date/Time: 08/26/24 22:08 What to do if you have Problems For any increased pain, shortness of breath, bleeding, nausea or vomiting, chestpain, or any unexpected problems, contact your Primary Care Provider. Call [employer] [facility] ([phone]) or report to the closest Emergency Room. Call 911 if necessary. 08/27/24 1522 <Electronically signed by Jesus Flynn DO> Cosigner Signature (if applicable): CC: Dr. Naye Sheets MD ~ Signed [facility] Work Phone: [phone] Discharge summary [facility] Medical Records Department [address] [place] [address] Emergency Department Summary 08/26/24 MR#: [id number] Acct: [id number] Name: KENYATTA CARRILLO Rep #:[id number] : 1960 63 From: Jesus Campoverde PCP: Dr. Naye Sheets MD Status:ADM I N Location: [place] [address] History of Present Illness Chief Complaint: GI Bleed Informant: patient Onset/Context/Timing Onset: Today Context: Gradual Onset Timing: Continuous Quality: Aching, burning, sharp Location: Left upper quadrant Worsened by: Nothing Relieved by: Nothing Narrative Narrative: Patient presents with nausea and vomiting that became worse today. Patient states she has been having some vomiting for the past few months. Patient states that she has been vomiting up coffee-groundemesis today. Patient admitsto some left upper quadrant abdominal pain. Patient describes it as aching, burning, and sharp. Patient states nothing makes it worse and nothing makes it better. Patient denies any diarrhea, melena, or hematochezia. Patient does admit to a cough. Patient denies any urinary complaints. Patient admits to drinking alcohol. PFSH PFSH Medical History Migraines Difficulty walking Urge incontinence Acute cystitis with hematuria Muscle weakness Osteoarthritis Alcoholic hepatitis Alcoholic liver disease Acute respiratory failure with hypoxia Metabolic encephalopathy Major depression Protein calorie malnutrition Acute post-hemorrhagic anemia Dysphagia, oropharyngeal phase Malignant neoplasm of colon Ulcer Restless legs Injury of head and neck Anemia Alcohol abuse Bipolar disorder Hypothyroidism Osteoporosis Kidney stones GERD (gastroesophageal reflux disease) GI bleed Former smoker Home Medications ?Medication ?Instructions ?Recorded ?Last Taken ?Type calcium carbonate (Tums) 200 mg PO BID PRN dyspepsia 07/23/24 Unknown History cholecalciferol (vitamin D3) 1,250 1,250 mcg PO 2XW Unknown History mcg (50,000 unit) capsule cyanocobalamin (vitamin B-12) 1,000 mcg IM QMONTH 07/12 07/08 Unknown History 1,000 mcg/mL injection solution folic acid 1 mg tablet 1 mg PO QDAY 07/23/24 Unknow n History ipratropium 0.5 mg-albuterol 3 mg 3 ml inhalation Q4H PRN shortness 07/23/24 Unknown History (2.5 mg base)/3 mL nebulization of breath soln lidocaine 4 % topical gel 1 applic topical HS 07/23/24 Unknown History magnesium glycinate 100 mg (as 100 mg PO BID 07/23/24 Unknown History glycinate) tablet (Mag Glycinate) magnesium oxide 400 mg PO QDAY 07/23/24 Unkn own History pantoprazole 40 mg tablet,delayed 40 mg PO BID GERD Unknown History release prednisone 50 mg tablet 50 mg PO QDAY 07/23/24 Unkno wn History thiamine HCl (vitamin B1) 100 mg 100 mg PO QDAY Unknown History tablet venlafaxine 37.5 mg 37.5 mg PO QDAY 07/23/24 Unk nown History capsule,extended release 24 hr zinc oxide 20 % topical paste 1 ea topical Q8H PRN ski n 07/23/24 Unknown History irritation Allergy/AdvReac Type Severity Reaction Status Date / Time amoxicillin Allergy Intermediate Swelling, Verified 08/26/24 14:11 itching Family History (Updated 08/26/24 @ 19:[address] Tiff Ramires MD) Mother Alcohol abuse CAD (coronary artery disease) Heart disease Hypertension Myocardial infarction Father Alcohol abuse Cancer Surgical History History of total knee arthroplasty History of right hip replacement H/O total hysterectomy Social History (Updated 08/26/24 @ 19:[address] Tiff Ramires MD) household members: none Smoking Status: Never smoker alcohol intake: current alcohol intake frequency: 3 or more drinks per day details: Notes binge drinking, whiskey. substance use type: other details: Former cannabis usage. Stopped ~ 40 years ago. ROS ROS ED Constitutional Constitutional ED: Denies chills or fever(s) Eyes Eyes: Denies blurry vision or change in vision ENT ENT ED: Denies rhinorrhea or sore throat Cardiovascular Cardiovascular: Denies chest pain or palpitations Respiratory/Chest Respiratory/Chest: Reports cough; Denies dyspnea Gastrointestinal Gastrointestinal: Reports abdominal pain, nausea and vomiting Genitourinary Genitourinary ED: Denies dysuria or hematuria Musculoskeletal Musculoskeletal: Reports back pain; Denies neck pain Integumentary Denies abscess or rash Neurologic Neurologic: Denies headache(s) or weakness Allergic/Immunologic Allergic/Immunologic ED: Denies mouth swelling or urticaria EXAM Physical Exam Const Vital Signs: 08/26/24 16:11 08/26/24 18:00 Pulse Rate 87 114 H Respiratory Rate 15 25 H Blood Pressure 157/96 H 131/78 H Blood Pressure Mean 116 95 Pulse Ox 98 92 Oxygen Delivery Method Room Air Room Air Positive well nourished and well developed General Appearance ED: well developed and NAD HEENT Reports moist mucous membranes Neck supple Resp normal respiratory effort and clear to auscultation bilaterally Cardio regular rate and regular rhythm GI non-distended Palpation: soft and tender LUQ; Negative for guarding or rebound tenderness present Extremity normal to inspection General Extremety ED: Negative for edema or tenderness General Extremity: Negative for edema Neuro oriented x3, CN's II-XII intact bilaterally and no sensory deficits noted Sensorium / Orientation: alert Motor Exam: strength 5/5 throughout Psych mental status grossly normal MDM MDM MDM Narrative Medical decision making narrative: Differential diagnosis includes but is not limited to gastrointestinal bleeding,alcoholic gastritis, pancreatitis, cholecystitis, cholelithiasis, anemia, and electrolyte abnormality. CBC will be obtained to assess for leukocytosis and anemia. Comprehensive metabolic profile will be obtained to assess for hepatic function, renal function, and electrolyte abnormality. Lipase will be obtained to assess for pancreatitis. PT with INR and PTT will be obtained to assess for coagulopathy. Urinalysis will be obtained to assess for urinary tract infectionand hematuria. CT scan of the abdomen and pelviswill be obtained to assess forbowel obstruction and perforation. Lab Data Attestation: I reviewed the patient's lab results. Lab results narrative: CBC was reviewed. There is a mild leukocytosis of 12.4. Hemoglobin was stable at 13.6 and hematocrit of 40.9. Platelets were slightly elevated at 505. PT with INR and PTT were reviewed. Pro time was 15.2 and INR is 1.2. Comprehensive metabolic profile was reviewed. Potassium was low at 2.6. Chloride was slightly low at 95. Glucose was slightly elevated at 150. Alkaline phosphatase was slightly elevated at 180. AST was slightly elevated at39. Lipase was reviewed and was normal at 28. Serum alcohol level was reviewedand was elevated 279. Urinalysis was reviewed. Leukocyte esterase was 500 withpositive nitrites. Labs: Laboratory Results - last 24 hr 08/26/24 08/26/24 14:30 17:29 WBC 12.8 H RBC 4.50 Hgb 13.6 Hct 40.9 MCV 90.9 MCH 30.2 MCHC 33.3 RDW Std Deviation 47.0 H RDW Coeff of Angelo 14.2 Plt Count 505 H MPV 9.0 Immature Gran % (Auto) 0.500 Neut % (Auto) 48.6 Lymph % (Auto) 42.1 H Meriwether % (Auto) 6.6 Eos % (Auto) 1.5 Baso % (Auto) 0.7 Absolute Neuts (auto) 6.2 Absolute Lymphs (auto) 5.38 H Nucleated RBC % 0 Platelet Estimate MOD INC PT 15.2 H INR 1.2 APTT 29.5 Sodium 140 Potassium 2.6 L* Chloride 95 L Carbon Dioxide 21.5 Anion Gap 23 H BUN 6 Creatinine 0.69 L Estim Creat Clear Calc 80.90 Est GFR (MDRD) Non-Af 96 BUN/Creatinine Ratio 8.3 L Glucose 150 H Calcium 10.0 Phosphorus 5.0 H Magnesium 1.4 L Total Bilirubin 0.28 AST 39 H ALT 21 Alkaline Phosphatase 180 H Total Protein 7.1 Albumin 3.3 L Globulin 3.9 Albumin/Globulin Ratio 0.8 L Lipase 28 Urine Color Yellow Urine Clarity Cloudy Urine pH 6.0 Ur Specific Milton 1.015 Urine Protein 30 H Urine Glucose (UA) Normal Urine Ketones Negative Urine Occult Blood 25 H Urine Nitrite Positive H Urine Bilirubin Negative Urine Urobilinogen Normal Ur Leukocyte Esterase 500 H Urine RBC 0-5 SEEN Urine WBC >100 SEEN Ur Squamous Epith Cells 0-5 SEEN Ur Transition Epith Cell 0-5 SEEN Urine Bacteria 3+ Urine Mucus 0 SEEN Ethyl Alcohol 279.0 H Blood Type O POSITIVE Antibody Screen NEGATIVE Radiography Diagnostic Testing: Clinical Impression(s) from Imaging Studies Abdomen/Pelvis CT 08/26/24 15:09 IMPRESSION: 1. Correlate for trace pancreatitis. Similar 12 mm calculus either within or adjacent to the main pancreatic duct with upstream pancreatic ductal dilatation. Given ductal dilatation, recommend clinical follow-up including outpatient pancreatic protocol MRI with and without contrast and with MRCP. 2. Findings suggest cystitis. Correlate with urinalysis. 3. Hiatal hernia with redemonstrated minimally imaged moderate to marked esophageal wall thickeningsuggesting esophagitis, better seen previously. Unable to exclude underlying neoplasm. Recommend clinical follow-up to exclude this possibility. 4. Distended gallbladder with cholelithiasis. No convincing inflammation. If there is concern, consider RIGHT upper quadrant ultrasound and/or HIDA. 5. Mild wall thickening versus underdistention of the descending and rectosigmoid colon. Correlate for very mild colitis. No adjacent inflammatory changes to confirm this. 6. Enlarged appendix without convincing adjacent inflammation to confirm acute appendicitis. Correlation with presentation and exam is necessary. This could reflect backwash inflammation related to colitis,if present. 7. Increased nonspecific stranding in the LEFT flank and bilateral gluteal regions. Correlate with exam for clinical evidence of cellulitis or possible contusion given an appropriate history of trauma. 8. 3.8 cm LEFT adnexal cyst, incompletely characterized by CT. Given the patient is postmenopausal,recommend outpatient pelvic ultrasound for more definitive characterization. 9. Hepatic steatosis has improved slightly. Correlate with clinical and laboratory evidence of chronic liver disease. 10. Additional description as above. Reading Location: [id number] Hip/Pelvis X-Ray 08/26/24 18:16 IMPRESSION: No acute fracture. Postop changes as described above. Severe narrowing of the left hip joint. Reading Location: [facility] CT scan of the abdomen pelvis was obtained. There is questionable trace pancreatitis. There is a distended gallbladder and cholelithiasis. There is noevidence of inflammation or cholecystitis. There is wall thickening of the descending and rectosigmoid colon. This was interpreted by the radiologistwapenny also independently reviewed by myself. Management Discussion w/another healthcare provider: Hospitalist and health worker/Case management Treatment and Re-Evaluation :: Patient was given IV fluids. Patient was ordered oral potassium but was unable to tolerate this. Patient was given Zofran. Patient was given IV potassium. Patient was given a dose of Protonix. Patient was given a dose of Rocephin. Case was discussed with the hospitalist. She will admit the patient to her service. On reevaluation, patient was complaining of pain in her left hip. X-rays of the lefthip will be obtained to assess for fracture or dislocation. Clinically, I do not feel there is a fracture or dislocation of her hip. Patient understood and was agreeable with the plan. All questions were answered. Discharge Plan Dx/Rx/DC Orders Clinical Impression: Upper GI bleed, Urinary tract infection, Alcohol intoxication Disposition Disposition: Acute Care Hospital [facility] Discharge Date/Time: 08/26/24 22:08 What to do if you have Problems For any increased pain, shortness of breath, bleeding, nausea or vomiting, chestpain, or any unexpected problems, contact your Primary Care Provider. Call [facility] ([phone]) or report tothe closest Emergency Room. Call 911 if necessary. 08/27/24 1522 Cosigner Signature (if applicable): CC: Dr. Naye Sheets MD ~ Signed [facility]04-16-2025 Progress note Author Deven Porter [facility] Note Date/Time August 27, 2024 9:3 1am [facility] Medical Records Department [address] [place] [address] Progress Note - Hospitalist 08/27/24 0728 MR#: [id number] Acct: [id number] Name: KENYATTA CARRILLO Rep #:[id number] : 1960 63 From: Deven Porter MD PCP: Dr. Naye Sheets MD Status:ADM I N Location: [place] [address] Reason for Visit Reason for Visit: Diagnoses Gastrointestinal hemorrhage, unspecified (08/26/24) Subjective Subjective Patient is a 63-year-old lady with history of chronic alcoholic liver disease who presented with progressive generalized weakness as well as coffee-ground emesis admitted to monitored bed for subsequent inpatient evaluation Objective Data Objective Data Vital Signs: Vital Signs Temp Pulse Resp BP Pulse Ox O2 Del Method 98.9 F 122 H 16 151/73 H 97 Room Air 08/27/24 03:08 08/27/24 03:18 08/27/24 03:08 08/27/24 03:08 08/27/24 03:08 08/27/24 03:08 Oxygen Delivery Method Room Air Weight: 87.628 kg Body Mass Index (BMI) 26.2 Intake & Output: Intake and Output for Last 24 Hours 08/25/24 08/26/24 08/27/24 23:59 23:59 23:59 Intake Total 1385 / 1385 Output Total 100 / 100 Balance 1285 / 1285 Lab / Micro Data 08/27/24 07:00 08/27/24 07:00 Labs: Laboratory Results - last 24 hr 08/26/24 14:30: WBC 12.8 H, RBC 4.50, Hgb 13.6, Hct 40.9, MCV 90.9, MCH 30.2, MCHC 33.3, RDW Std Deviation 47.0 H, RDW Coeff of Angelo 14.2, Plt Count 505 H, MPV9.0, Immature Gran % (Auto) 0.500, Neut % (Auto) 48.6, Lymph % (Auto) 42.1 H, Meriwether % (Auto) 6.6, Eos % (Auto) 1.5, Baso % (Auto) 0.7, Absolute Neuts (auto) 6.2, Absolute Lymphs (auto) 5.38 H, Nucleated RBC % 0, Platelet Estimate MOD INC, PT 15.2 H, INR 1.2, APTT 29.5, Sodium 140, Potassium 2.6 L*, Chloride 95 L,Carbon Dioxide 21.5, Anion Gap 23 H, BUN 6, Creatinine 0.69 L, Estim Creat ClearCalc 80.90, Est GFR (MDRD) Non-Af 96, BUN/Creatinine Ratio 8.3 L, Glucose 150 H,Calcium 10.0, Phosphorus 5.0 H, Magnesium 1.4 L, Total Bilirubin 0.28, AST 39 H,ALT 21, Alkaline Phosphatase 180 H, Total Protein 7.1, Albumin 3.3 L, Globulin 3.9, Albumin/Globulin Ratio 0.8 L, Lipase 28, Ethyl Alcohol 279.0 H, Blood Type O POSITIVE, Antibody Screen NEGATIVE 08/26/24 17:29: Urine Color Yellow, Urine Clarity Cloudy, Urine pH 6.0, Ur Specific Milton 1.015, Urine Protein 30 H, Urine Glucose (UA) Normal, Urine Ketones Negative, Urine Occult Blood 25 H, Urine Nitrite Positive H, Urine Bilirubin Negative, Urine Urobilinogen Normal, Ur Leukocyte Esterase 500 H, Urine RBC 0-5 SEEN, Urine WBC >100 SEEN, Ur Squamous Epith Cells 0-5 SEEN, Ur Transition Epith Cell 0-5 SEEN, Urine Bacteria 3+, Urine Mucus 0 SEEN 08/26/24 22:50: Hgb 13.4, Hct 40.4 08/27/24 03:10: Hgb 12.2, Hct 34.6 L 08/27/24 07:00: WBC 12.8 H, RBC 3.76 L, Hgb 11.4 L, Hct 33.3 L, MCV 88.6, MCH 30.3, MCHC 34.2, RDW Std Deviation 46.3 H, RDW Coeff of Angelo 14.4, Plt Count 341,MPV 8.8, Immature Gran % (Auto) 0.400, Neut % (Auto) 75.5 H, Lymph % (Auto) 13.0L, Meriwether % (Auto) 10.5 H, Eos % (Auto) 0.2, Baso % (Auto) 0.4, Absolute Neuts (auto) 9.7 H, Absolute Lymphs (auto) 1.67, Nucleated RBC % 0 Radiography Diagnostic Testing: Radiology Impression Abdomen/Pelvis CT 08/26/24 15:09 IMPRESSION: 1. Correlate for trace pancreatitis. Similar 12 mm calculus either within or adjacent to the main pancreatic duct with upstream pancreatic ductal dilatation. Given ductal dilatation, recommend clinical follow-up including outpatient pancreatic protocol MRI with and without contrast and with MRCP. 2. Findings suggest cystitis. Correlate with urinalysis. 3. Hiatal hernia with redemonstrated minimally imaged moderate to marked esophageal wall thickening suggesting esophagitis, better seen previously. Unable to exclude underlying neoplasm. Recommend clinical follow-up to exclude this possibility. 4. Distended gallbladder with cholelithiasis. No convincing inflammation. If there is concern, consider RIGHT upper quadrant ultrasound and/or HIDA. 5. Mild wall thickening versus underdistention of the descending and rectosigmoid colon. Correlate for very mild colitis. No adjacent inflammatory changes to confirm this. 6. Enlarged appendix without convincing adjacent inflammation to confirm acute appendicitis. Correlation with presentation and exam is necessary. This could reflect backwash inflammation related to colitis,if present. 7. Increased nonspecific stranding in the LEFT flank and bilateral gluteal regions. Correlate with exam for clinical evidence of cellulitis or possible contusion given an appropriate history of trauma. 8. 3.8 cm LEFT adnexal cyst, incompletely characterized by CT. Given the patient is postmenopausal, recommend outpatient pelvic ultrasound for more definitive characterization. 9. Hepatic steatosis has improved slightly. Correlate with clinical and laboratory evidence of chronic liver disease. 10. Additional description as above. Reading Location: [facility] Hip/Pelvis X-Ray 08/26/24 18:16 IMPRESSION: No acute fracture. Postop changes as described above. Severe narrowing of the left hip joint. Reading Location[facility] Physical Exam Narrative GENERAL: cooperative HEENT: Atraumatic; normocephalic EYES; Anicteric, Normal Conjunctiva NECK; supple, normal thyroid, RESPIRATORY: Diminished to auscultation CARDIOVASCULAR: Regular S1 S2, GI: soft, normoactive bowel sounds, : No Renal angle tenderness; EXTREMITIES: No edema, no clubbing, MUSCULOSKELETAL: no muscle wasting NEURO: Awake; no lateralizing signs. SKIN: No Rash PSYCH; Flat affect Assessment & Plan Assessment/Plan (1) GI bleed: PLAN: Plan Patient is a 63-year-old lady with history of chronic alcoholic liver disease who presented with progressive generalized weakness as well as coffee-ground emesis admitted to monitored bed for subsequent inpatient evaluation 1. Upper GI bleed ? Admit patient with chronic liver disease. Patient admitted to monitored bed started on Protonix, every 6 H&H ordered consult placed to GI. In view of patient underlying liver disease patient was started on ceftriaxone 2. Anemia secondary to acute blood loss anemia monitoring H&H with plans to transfuse if patient hemoglobin falls below 7 or patient is deemed to be symptomatic 3 Acute cystitis ?Patient had pyuria as well as imaging findings consistent with cystitis. Urineculture sent we will follow-up on the result patient started on ceftriaxone 4. Distended gallbladder with cholelithiasis ? Ordered gallbladder ultrasound for subsequent eval 5. Acute colitis ? Based on CAT scan findings patient is on antibiotics 6. Chronic alcoholic liver disease ? Followed by hepatology as Outpatient 7. Hypothyroidism ? Patient is on levothyroxine home dose continued 8. Hypokalemia -Corrected per protocol, Repeat potassium levels ordered for a.m.. 9. Depression with anxiety ? Patient is on venlafaxine?continue 10. Hypomagnesemia -Corrected for protocol, ordered repeat magnesium for a.m. 11. Left adnexal cyst, incompletely characterized -: CT with 3.8 cm left adnexal cyst, given patient is postmenopausal age recommended outpatient pelvic ultrasound, patient instructed to follow-up with primary care physician for subsequent care 12. Suspected protein calorie malnutrition ? Consult placed to dietitian 13. DVT prophylaxis ? Bilateral SCDs for now given patient presentation Charges/Coding Visit Charges Inpatient E&M: 22018 Subs Hosp L3 08/27/24 0931 <Electronically signed by Deven Porter MD> Cosigner Signature (if applicable): CC: ~ Signed [facility] Work Phone: [phone]) 586-547704-16-2025 Progress note [facility] Medical Records Department [address] [facility] [place] [address] Progress Note - Hospitalist 08/27/24 0728 MR#: [id number] Acct: [id number] Name: KENYATTA CARRILLO Rep #:[id number] : 1960 63 From: Deven Porter MD PCP: Dr. Naye Sheets MD Status:ADM I N Location: [place] [address] Reason for Visit Reason for Visit: Diagnoses Gastrointestinal hemorrhage, unspecified (08/26/24) Subjective Subjective Patient is a 63-year-old lady with history of chronic alcoholic liver disease who presented with progressive generalized weakness as well as coffee-ground emesis admitted to monitored bed for subsequent inpatient evaluation Objective Data Objective Data Vital Signs: Vital Signs Temp Pulse Resp BP Pulse Ox O2 Del Method 98.9 F 122 H 16 151/73 H 97 Room Air 08/27/24 03:08 08/27/24 03:18 08/27/24 03:08 08/27/24 03:08 08/27/24 03:08 08/27/24 03:08 Oxygen Delivery Method Room Air Weight: 87.628 kg Body Mass Index (BMI) 26.2 Intake & Output: Intake and Output for Last 24 Hours 08/25/24 08/26/24 08/27/24 23:59 23:59 23:59 Intake Total 1385 / 1385 Output Total 100 / 100 Balance 1285 / 1285 Lab / Micro Data 08/27/24 07:00 08/27/24 07:00 Labs: Laboratory Results - last 24 hr 08/26/24 14:30: WBC 12.8 H, RBC 4.50, Hgb 13.6, Hct 40.9, MCV 90.9, MCH 30.2, MCHC 33.3, RDW Std Deviation 47.0 H, RDW Coeff of Angelo 14.2, Plt Count 505 H, MPV9.0, Immature Gran % (Auto) 0.500, Neut %(Auto) 48.6, Lymph % (Auto) 42.1 H, Meriwether % (Auto) 6.6, Eos % (Auto) 1.5, Baso % (Auto) 0.7, Absolute Neuts (auto) 6.2, Absolute Lymphs (auto) 5.38 H, Nucleated RBC % 0, Platelet Estimate MOD INC, PT 15.2 H, INR 1.2, APTT 29.5, Sodium 140, Potassium 2.6 L*, Chloride 95 L,Carbon Dioxide 21.5, Anion Gap 23 H, BUN 6, Creatinine 0.69 L, Estim Creat ClearCalc 80.90, Est GFR (MDRD) Non-Af 96, BUN/Creatinine Ratio 8.3 L, Glucose 150 H,Calcium 10.0, Phosphorus 5.0 H, Magnesium 1.4 L, Total Bilirubin 0.28, AST 39 H,ALT 21, Alkaline Phosphatase 180 H, Total Protein 7.1, Albumin 3.3 L, Globulin 3.9, Albumin/Globulin Ratio 0.8 L, Lipase 28, Ethyl Alcohol 279.0 H, Blood Type O POSITIVE, Antibody Screen NEGATIVE 08/26/24 17:29: Urine Color Yellow, Urine Clarity Cloudy, Urine pH 6.0, Ur Specific Milton 1.015, Urine Protein 30 H, Urine Glucose (UA) Normal, Urine Ketones Negative, Urine Occult Blood 25 H, Urine Nitrite Positive H, Urine Bilirubin Negative, Urine Urobilinogen Normal, Ur Leukocyte Esterase 500H, Urine RBC 0-5 SEEN, Urine WBC >100 SEEN, Ur Squamous Epith Cells 0-5 SEEN, Ur Transition Epith Cell 0-5 SEEN, Urine Bacteria 3+, Urine Mucus 0 SEEN 08/26/24 22:50: Hgb 13.4, Hct 40.4 08/27/24 03:10: Hgb 12.2, Hct 34.6 L 08/27/24 07:00: WBC 12.8 H, RBC 3.76 L, Hgb 11.4 L, Hct 33.3 L, MCV 88.6, MCH 30.3, MCHC 34.2, RDW Std Deviation 46.3 H, RDW Coeff of Angelo 14.4, Plt Count 341,MPV 8.8, Immature Gran % (Auto) 0.400, Neut % (Auto) 75.5 H, Lymph % (Auto) 13.0L, Meriwether % (Auto) 10.5 H, Eos % (Auto) 0.2, Baso % (Auto) 0.4,Absolute Neuts (auto) 9.7 H, Absolute Lymphs (auto) 1.67, Nucleated RBC % 0 Radiography Diagnostic Testing: Radiology Impression Abdomen/Pelvis CT 08/26/24 15:09 IMPRESSION: 1. Correlate for trace pancreatitis. Similar 12 mm calculus either within or adjacent to the main pancreatic duct with upstream pancreatic ductal dilatation. Given ductal dilatation, recommend clinical follow-up including outpatient pancreatic protocol MRI with and without contrast and with MRCP. 2. Findings suggest cystitis. Correlate with urinalysis. 3. Hiatal hernia with redemonstrated minimally imaged moderate to marked esophageal wall thickeningsuggesting esophagitis, better seen previously. Unable to exclude underlying neoplasm. Recommend clinical follow-up to exclude this possibility. 4. Distended gallbladder with cholelithiasis. No convincing inflammation. If there is concern, consider RIGHT upper quadrant ultrasound and/or HIDA. 5. Mild wall thickening versus underdistention of the descending and rectosigmoid colon. Correlate for very mild colitis. No adjacent inflammatory changes to confirm this. 6. Enlarged appendix without convincing adjacent inflammation to confirm acute appendicitis. Correlation with presentation and exam is necessary. This could reflect backwash inflammation related to colitis,if present. 7. Increased nonspecific stranding in the LEFT flank and bilateral gluteal regions. Correlate with exam for clinical evidence of cellulitis or possible contusion given an appropriate history of trauma. 8. 3.8 cm LEFT adnexal cyst, incompletely characterized by CT. Given the patient is postmenopausal,recommend outpatient pelvic ultrasound for more definitive characterization. 9. Hepatic steatosis has improved slightly. Correlate with clinical and laboratory evidence of chronic liver disease. 10. Additional description as above. Reading Location: [facility] Hip/Pelvis X-Ray 08/26/24 18:16 IMPRESSION: No acute fracture. Postop changes as described above. Severe narrowing of the left hip joint. Reading Location: [facility] Physical Exam Narrative GENERAL: cooperative HEENT: Atraumatic; normocephalic EYES; Anicteric, Normal Conjunctiva NECK; supple, normal thyroid, RESPIRATORY: Diminished to auscultation CARDIOVASCULAR: Regular S1 S2, GI: soft, normoactive bowel sounds, : No Renal angle tenderness; EXTREMITIES: No edema, no clubbing, MUSCULOSKELETAL: no muscle wasting NEURO: Awake; no lateralizing signs. SKIN: No Rash PSYCH; Flat affect Assessment & Plan Assessment/Plan (1) GI bleed: PLAN: Plan Patient is a 63-year-old lady with history of chronic alcoholic liver disease who presented with progressive generalized weakness as well as coffee-ground emesis admitted to monitored bed for subsequent inpatient evaluation 1. Upper GI bleed ? Admit patient with chronic liver disease. Patient admitted to monitored bed started on Protonix, every 6 H&H ordered consult placed to GI. In view of patient underlying liver disease patient was started on ceftriaxone 2. Anemia secondary to acute blood loss anemia monitoring H&H with plans to transfuse if patient hemoglobin falls below 7 or patient is deemed to be symptomatic 3 Acute cystitis ?Patient had pyuria as well as imaging findings consistent with cystitis. Urineculture sent we willfollow-up on the result patient started on ceftriaxone 4. Distended gallbladder with cholelithiasis ? Ordered gallbladder ultrasound for subsequent eval 5. Acute colitis ? Based on CAT scan findings patient is on antibiotics 6. Chronic alcoholic liver disease ? Followed by hepatology as Outpatient 7. Hypothyroidism ? Patient is on levothyroxine home dose continued 8. Hypokalemia -Corrected per protocol, Repeat potassium levels ordered for a.m.. 9. Depression with anxiety ? Patient is on venlafaxine?continue 10. Hypomagnesemia -Corrected for protocol, ordered repeat magnesium for a.m. 11. Left adnexal cyst, incompletely characterized -: CT with 3.8 cm left adnexal cyst, given patient is postmenopausal age recommended outpatient pelvic ultrasound, patient instructed to follow-up with primary care physician for subsequent care 12. Suspected protein calorie malnutrition ? Consult placed to dietitian 13. DVT prophylaxis ? Bilateral SCDs for now given patient presentation Charges/Coding Visit Charges Inpatient E&M: 33609 Subs Hosp L3 08/27/24 0931 Cosigner Signature (if applicable): CC: ~ Signed [facility]04-15-2025 History and physical note Author Tiff Ramires [facility] Note Date/Time August 26, 2024 7:3 8pm [facility] Medical Records Department [address] [place] [address] H&P Exam - Hospitalist 08/26/24 1832 MR#: [id number] Acct: [id number] Name: KENYATTA CARRILLO Rep #:[id number] : 1960 63 From: Tiff Ramires MD PCP: Dr. Naye Sheets MD Status:ADM I N Location: [place] [address] HPI - General General Date of Admission: 08/26/24 Date of Service: 08/26/24 Chief Complaint: N/V, coffee ground emesis, abdominal pain. HPI Narrative The patient is a 63 y/o F w/ PMHx: Chronic alcoholic liver disease/chronic alcoholic hepatitis, Severe protein calorie malnutrition, GERD w/ Hx GI bleed, Anxiety and Depression/Bipolar disorder, Hypothyroidism, Former tobacco use, Chronic oropharyngeal phase dysphagia who presents to the [facility] ED on 08/26/24 with history of intermittent episodes of nausea and emesis over the last several months however worse over the last 24 hours with onset of coffee-ground emesis with associated left upper quadrant abdominal paindescribed as aching, burning and sharp intermittently with nothing making it better or worse with no recent diarrhea, melanotic stools or hematochezia with mild recent cough and no specific urinary complaints but significant fatigue andmalaise with ongoing alcohol abuse prompting eventual ED evaluation. In regard to urinary symptoms she does report urinary frequency and some urgency. Workup in the ED included T98.1, heart rate 118, BP 139/81, respiratory rate 19, 97% onroom air with most recent repeat vitals heart rate 87, BP 157/96, respiratory rate 15, 98% on room air, CBC with WBC 12.8, hemoglobin 13.6, MCV 90.9, [id number] with lymphocytosis, coags unremarkable aside PT 15.2, CMP with potassium 2.6, chloride 95, anion gap 23, BUN/creatinine 6/0.69, GFR 96, glucose 150, hepatic profile with T. bili 0.28, AST/ALT 39/21, alk phos 180 otherwise not marked appearing, urinalysis with cloudy appearing urine, specific gravity 1.015, protein 30, occult blood 25, positive nitrite, leukocyte esterase 500, Ethyl alcohol 279, CT abdomen and pelvis with possible trace pancreatitis, similar 12 mm calculus at there within her adjacent to the main pancreatic duct with upstream pancreatic ductal dilatation, findings suggestive of cystitis, hiatal hernia with re-demonstrated minimally imaged moderate to marked esophageal wall thickening suggestive of esophagitis, distended gallbladder withcholelithiasis with no evidence of inflammation, mild wall thickening versus underdistention of the descending and rectosigmoid colon, enlarged appendix without convincing adjacent inflammation to confirm acute appendicitis, increased nonspecific stranding in the left flank and bilateral gluteal regions,3.8 cm left adnexal cyst incompletely characterized, hepatic steatosis with evidence of chronic liver disease. In the ED patient ministered 1 L normal saline, Zofran 4 mg IV x 2, potassium 20 mill equivalent IV x 1 as well as oral potassium 40 mill equivalent p.o. x 1 in addition to Protonix 80 mg IV bolus x 1. Discussed patient with ED and she will also be administered IV rocephin. PFSH Medical History Difficulty walking Urge incontinence Acute cystitis with hematuria Muscle weakness Osteoarthritis Alcoholic hepatitis Alcoholic liver disease Acute respiratory failure with hypoxia Metabolic encephalopathy Major depression Protein calorie malnutrition Acute post-hemorrhagic anemia Dysphagia, oropharyngeal phase Malignant neoplasm of colon Ulcer Restless legs Injury of head and neck Anemia Alcohol abuse Bipolar disorder Hypothyroidism Osteoporosis Kidney stones GERD (gastroesophageal reflux disease) GI bleed Former smoker Home Medications ?Medication ?Instructions ?Recorded ?Last Taken ?Type calcium carbonate (Tums) 200 mg PO BID PRN dyspepsia 07/23/24 Unknown History cholecalciferol (vitamin D3) 1,250 1,250 mcg PO 2XW Unknown History mcg (50,000 unit) capsule cyanocobalamin (vitamin B-12) 1,000 mcg IM QMONTH 07/12 07/08 Unknown History 1,000 mcg/mL injection solution folic acid 1 mg tablet 1 mg PO QDAY 07/23/24 Unknow n History ipratropium 0.5 mg-albuterol 3 mg 3 ml inhalation Q4H PRN shortness 07/23/24 Unknown History (2.5 mg base)/3 mL nebulization of breath soln lidocaine 4 % topical gel 1 applic topical HS 07/23/24 Unknown History magnesium glycinate 100 mg (as 100 mg PO BID 07/23/24 Unknown History glycinate) tablet (Mag Glycinate) magnesium oxide 400 mg PO QDAY 07/23/24 Unkn own History pantoprazole 40 mg tablet,delayed 40 mg PO BID GERD Unknown History release prednisone 50 mg tablet 50 mg PO QDAY 07/23/24 Unkno wn History thiamine HCl (vitamin B1) 100 mg 100 mg PO QDAY Unknown History tablet venlafaxine 37.5 mg 37.5 mg PO QDAY 07/23/24 Unk nown History capsule,extended release 24 hr zinc oxide 20 % topical paste 1 ea topical Q8H PRN ski n 07/23/24 Unknown History irritation Allergy/AdvReac Type Severity Reaction Status Date / Time amoxicillin Allergy Intermediate Swelling, Verified 08/26/24 14:11 itching Family History (Updated 08/26/24 @ 19:[address] Tiff Ramires MD) Mother Alcohol abuse CAD (coronary artery disease) Heart disease Hypertension Myocardial infarction Father Alcohol abuse Cancer Surgical History History of total knee arthroplasty History of right hip replacement H/O total hysterectomy Social History (Updated 08/26/24 @ 19:[address] Tiff Ramires MD) household members: none Smoking Status: Never smoker alcohol intake: current alcohol intake frequency: 3 or more drinks per day details: Notes binge drinking, whiskey. substance use type: other details: Former cannabis usage. Stopped ~ 40 years ago. ROS ROS Narrative Admission Review of Systems: CONSTITUTIONAL: No weight loss, fever, chills, + weakness or fatigue. HEENT: Eyes: No visual loss, blurred vision, double vision or yellow sclerae. Ears, Nose, Throat: No hearing loss, sneezing, congestion, runny nose or sore throat. SKIN: No rash or itching, lesions, wounds. CARDIOVASCULAR: No chest pain, chest pressure or chest discomfort, palpitations,edema, orthopnea, syncopal events. RESPIRATORY: No shortness of breath, cough or sputum, wheezing, hemoptysis. GASTROINTESTINAL: + anorexia, nausea, vomiting, abdominal pain, coffee diarrhea,abdominal pain. No melena, BRBPR. GENITOURINARY: + Increased urinary frequency, urgency. No no dysuria, retention. NEUROLOGICAL: No headache, dizziness, syncope, paralysis, ataxia, numbness or tingling in the extremities, focal weakness, change in bowel or bladder control,seizure. MUSCULOSKELETAL: + muscle, back pain, joint pain or stiffness. HEMATOLOGIC: + Chronic anemia, easy history of bleeding/bruising. LYMPHATICS: No enlarged nodes. No history of splenectomy. PSYCHIATRIC: + History of Anxiety and Depression/Bipolar disorder. ENDOCRINOLOGIC: No reports of sweating, cold or heat intolerance. No polyuria orpolydipsia. ALLERGIES: No history of asthma, hives, eczema or rhinitis. Vital Signs Vital Signs Vital Signs: 08/26/24 14:11 08/26/24 14:26 08/26/24 16:11 Temperature 98.1 F Temperature Source Oral Pulse Rate 118 H 87 Respiratory Rate 19 H 15 Respiratory Pattern Normal Blood Pressure 139/81 H 157/96 H Blood Pressure Mean 100 116 Pulse Ox 97 98 Oxygen Delivery Method Room Air Room Air 08/26/24 18:00 Temperature Temperature Source Pulse Rate 114 H Respiratory Rate 25 H Respiratory Pattern Blood Pressure 131/78 H Blood Pressure Mean 95 Pulse Ox 92 Oxygen Delivery Method Room Air Weight Weight: 188 lb 0.869 oz Body Mass Index (BMI) 25.4 Physical Exam Narrative Physical Examination: General: Awake, alert, oriented x 3 and cooperative, seated upright in the ED bed in no apparent distress, fatigued appearing. Skin: Normal color, normal turgor, no icterus, no cyanosis except for occasionalstage ecchymoses, abrasions HEENT: AT/NC, EOMI, PERRLA, mildly dry MM, no carotid bruits or JVD noted. Lungs: Mildly diminished, greater bases, mild increased respiratory rate but no distress, no rales, ronchi or wheezing. Heart: Mildly tachycardic rate rhythm; no gallop, rub audible. Abdomen: Soft, mild generalized discomfort to palpation, worse in the epigastricand bilateral upper quadrants with no rebound or guarding, hyperactive BS, no distention, discerned HM. Extremities: No cyanosis, clubbing, or edema. Neurological: Patient awake, alert, oriented as noted, cognitive function intact; pupils equally reactive to light and accommodation, cranial nerves grossly normal, moving all 4 extremities, no focal deficits, strength severely global decrease secondary to acute presentation Psychiatric: Affect appears fatigued, no acute evidence of depressive or anxietyfeelings but does have underlying history. Results Lab / Micro Data 08/26/24 14:30 08/26/24 14:30 Labs: Laboratory Results - last 24 hr 08/26/24 14:30: WBC 12.8 H, RBC 4.50, Hgb 13.6, Hct 40.9, MCV 90.9, MCH 30.2, MCHC 33.3, RDW Std Deviation 47.0 H, RDW Coeff of Angelo 14.2, Plt Count 505 H, MPV9.0, Immature Gran % (Auto) 0.500, Neut % (Auto) 48.6, Lymph % (Auto) 42.1 H, Meriwether % (Auto) 6.6, Eos % (Auto) 1.5, Baso % (Auto) 0.7, Absolute Neuts (auto) 6.2, Absolute Lymphs (auto) 5.38 H, Nucleated RBC % 0, Platelet Estimate MOD INC, PT 15.2 H, INR 1.2, APTT 29.5, Sodium 140, Potassium 2.6 L*, Chloride 95 L,Carbon Dioxide 21.5, Anion Gap 23 H, BUN 6, Creatinine 0.69 L, Estim Creat ClearCalc 80.90, Est GFR (MDRD) Non-Af 96, BUN/Creatinine Ratio 8.3 L, Glucose 150 H,Calcium 10.0, Total Bilirubin 0.28, AST 39 H, ALT 21, Alkaline Phosphatase 180 H, Total Protein 7.1, Albumin 3.3 L, Globulin 3.9, Albumin/Globulin Ratio 0.8 L, Lipase 28, Ethyl Alcohol 279.0 H 08/26/24 17:29: Urine Color Yellow, Urine Clarity Cloudy, Urine pH 6.0, Ur Specific Milton 1.015, Urine Protein 30 H, Urine Glucose (UA) Normal, Urine Ketones Negative, Urine Occult Blood 25 H, Urine Nitrite Positive H, Urine Bilirubin Negative, Urine Urobilinogen Normal, Ur Leukocyte Esterase 500 H Imaging Radiology Impression Abdomen/Pelvis CT 08/26/24 15:09 IMPRESSION: 1. Correlate for trace pancreatitis. Similar 12 mm calculus either within or adjacent to the main pancreatic duct with upstream pancreatic ductal dilatation. Given ductal dilatation, recommend clinical follow-up including outpatient pancreatic protocol MRI with and without contrast and with MRCP. 2. Findings suggest cystitis. Correlate with urinalysis. 3. Hiatal hernia with redemonstrated minimally imaged moderate to marked esophageal wall thickening suggesting esophagitis, better seen previously. Unable to exclude underlying neoplasm. Recommend clinical follow-up to exclude this possibility. 4. Distended gallbladder with cholelithiasis. No convincing inflammation. If there is concern, consider RIGHT upper quadrant ultrasound and/or HIDA. 5. Mild wall thickening versus underdistention of the descending and rectosigmoid colon. Correlate for very mild colitis. No adjacent inflammatory changes to confirm this. 6. Enlarged appendix without convincing adjacent inflammation to confirm acute appendicitis. Correlation with presentation and exam is necessary. This could reflect backwash inflammation related to colitis,if present. 7. Increased nonspecific stranding in the LEFT flank and bilateral gluteal regions. Correlate with exam for clinical evidence of cellulitis or possible contusion given an appropriate history of trauma. 8. 3.8 cm LEFT adnexal cyst, incompletely characterized by CT. Given the patient is postmenopausal, recommend outpatient pelvic ultrasound for more definitive characterization. 9. Hepatic steatosis has improved slightly. Correlate with clinical and laboratory evidence of chronic liver disease. 10. Additional description as above. Reading Location: [id number] Assessment & Plan Assessment/Plan (1) GI bleed: PLAN: Plan The patient is a 63 y/o F w/ PMHx: Chronic alcoholic liver disease/chronic alcoholic hepatitis, Severe protein calorie malnutrition, GERD w/ Hx GI bleed, Anxiety and Depression/Bipolar disorder, Hypothyroidism, Former tobacco use, Chronic oropharyngeal phase dysphagia who presents to the [facility] ED on 08/26/24 with history of intermittent episodes of nausea and emesis over the last several months however worse over the last 24 hours with onset of coffee-ground emesis with associated left upper quadrant abdominal paindescribed as aching, burning and sharp intermittently with nothing making it better or worse with no recent diarrhea, melanotic stools or hematochezia with mild recent cough and no specific urinary complaints but significant fatigue andmalaise with ongoing alcohol abuse prompting eventual ED evaluation. #1. Acute GI Bleed with history of chronic anemia, currently hemoglobin 13.6, MCV 90.9 thus improved from prior with underlying alcohol abuse, chronic alcoholic hepatitis: Admission hemoglobin 13.6, MCV 90.9, not severely decreasedbut does have persistent nausea and emesis with coffee-ground emesis now, will admit to [facility] tele given stable vital sign, maintain on IVFs, obtain serial H+H q 6 hours, maintain on maintain on continuous IV PPI. Given patient is cirrhotic will place on prophylaxis w/ rocephin. GI consulted, evaluation pending. Will allow clears in the interim with n.p.o. status at midnight. #2. Acute Urinary Tract Infection: Will admit to [place], CT abdomen pelvis with findings consistent with urinary tract infection in addition to UA upon ED evaluation remarkable, pending UCx, will continue IVFs, monitor I/Os, continue IV Rocephin w/ transition as able pending sensitivities and speciation. #3. Hyperglycemia: Noted elevated blood sugar upon arrival, 150, no diabetic history, likely related with acute presentation, stress response, alcohol abuse history, will obtain hemoglobin A1c to be cautious. #4. Chronic oropharyngeal phase dysphagia with incidentally noted CT findings concerning for esophagitis, underlying GERD: CT with redemonstrated minimally imaged moderate to marked esophageal wall thickening suggestive of esophagitis, will maintain on PPI as noted, GI consulted and following. #5. Hypokalemia: Admission K+ 2.6, magnesium level requested, supplementation given, repeat level in AM. #6. Left adnexal cyst, incompletely characterized: CT with 3.8 cm left adnexal cyst, given patient is postmenopausal age recommended outpatient pelvic ultrasound, will need to follow-up with PCP/[employer] SAL[employer] REPRESENTATIVE. #7. Chronic Kidney Disease Stage II per previous GFR trending although has vacillated: Admission BUN/Cr 6/0.69, GFR 96 however previously primarily consistent with stage II, baseline renal function primarily 0.7-0.9 but has vacillated, did have presentation recently in May and had acute kidney injury at that time, appears resolved, repeat BMP in AM. #8. EtOH Abuse: Patient notes routine consumption of binge drinking whiskey unfortunately because she cannot determine the amount she drinks daily but says she drinks at least half a gallon and a handful of days. Will maintain on CIWA protocol, MVI, thiamine and folic acid. Patient notes intention of continued EtOH usage. Will continue to monitor and if necessary low threshold to transition to taper protocol. Mag and Phos levels requested. #9. Anxiety and depression/bipolar disorder: Will continue patient home venlafaxine regimen, would benefit from mood stabilizer also given underlying bipolar history, encourage follow-up outpatient with PCP/psychiatry/psychology as previously arranged. Prior records show that patient in the past had been onDepakote but it has not been filled for some time. #10. Hypothyroidism: Noted chart reported history, per current list not on any supplementation, clarifying to be certain, TSH and free T4 will be requested to be cautious. #11. Severe protein calorie malnutrition: Evidenced by habitus, muscle and fat loss, significant underlying comorbidities including alcohol abuse, nutrition consulted. #12. Former tobacco use: Encourage continued tobacco cessation. #13. GERD: As noted will maintain on IV Protonix. #14. DVT prophylaxis: SCDs. #15. CODE status: Patient ABDI is her sister and living will is currently in place. Discussed CODE status at length including difference between FULL code, DNR-CCA and DNR-CC status. Following discussions about the differences in these status, requested Full Code status. Advanced Care Planning Face to Face Time: 16minutes. Charges/Coding Visit Charges Inpatient E&M: 44391 Init Hosp L3 Procedures Hospitalists Procedures: 36778 Advncd Care Plan 30 Min 08/26/241937 <Electronically signed by Tiff Ramires MD> Cosigner Signature (if applicable): CC: Dr. Tiff Ramires MD; Dr. Naye Sheets MD~ Signed [facility] Work Phone: [phone] 244-542904-15-2025 History and physical note Author Tiff Ramires [facility] Note Date/Time August 26, 2024 7:3 8pm [facility] Medical Records Department [address] [place] [address] H&P Exam - Hospitalist 08/26/24 1832 MR#: [id number] Acct: [id number] Name: KENYATTA CARRILLO Rep #:[id number] : 1960 63 From: Tiff Ramires MD PCP: Dr. Naye Sheets MD Status:ADM I N Location: [place] [address] HPI - General General Date of Admission: 08/26/24 Date of Service: 08/26/24 Chief Complaint: N/V, coffee ground emesis, abdominal pain. HPI Narrative The patient is a 63 y/o F w/ PMHx: Chronic alcoholic liver disease/chronic alcoholic hepatitis, Severe protein calorie malnutrition, GERD w/ Hx GI bleed, Anxiety and Depression/Bipolar disorder, Hypothyroidism, Former tobacco use, Chronic oropharyngeal phase dysphagia who presents to the [facility] ED on 08/26/24 with history of intermittent episodes of nausea and emesis over the last several months however worse over the last 24 hours with onset of coffee-ground emesis with associated left upper quadrant abdominal paindescribed as aching, burning and sharp intermittently with nothing making it better or worse with no recent diarrhea, melanotic stools or hematochezia with mild recent cough and no specific urinary complaints but significant fatigue andmalaise with ongoing alcohol abuse prompting eventual ED evaluation. In regard to urinary symptoms she does report urinary frequency and some urgency. Workup in the ED included T98.1, heart rate 118, BP 139/81, respiratory rate 19, 97% onroom air with most recent repeat vitals heart rate 87, BP 157/96, respiratory rate 15, 98% on room air, CBC with WBC 12.8, hemoglobin 13.6, MCV 90.9, [id number] with lymphocytosis, coags unremarkable aside PT 15.2, CMP with potassium 2.6, chloride 95, anion gap 23, BUN/creatinine 6/0.69, GFR 96, glucose 150, hepatic profile with T. bili 0.28, AST/ALT 39/21, alk phos 180 otherwise not marked appearing, urinalysis with cloudy appearing urine, specific gravity 1.015, protein 30, occult blood 25, positive nitrite, leukocyte esterase 500, Ethyl alcohol 279, CT abdomen and pelvis with possible trace pancreatitis, similar 12 mm calculus at there within her adjacent to the main pancreatic duct with upstream pancreatic ductal dilatation, findings suggestive of cystitis, hiatal hernia with re-demonstrated minimally imaged moderate to marked esophageal wall thickening suggestive of esophagitis, distended gallbladder withcholelithiasis with no evidence of inflammation, mild wall thickening versus underdistention of the descending and rectosigmoid colon, enlarged appendix without convincing adjacent inflammation to confirm acute appendicitis, increased nonspecific stranding in the left flank and bilateral gluteal regions,3.8 cm left adnexal cyst incompletely characterized, hepatic steatosis with evidence of chronic liver disease. In the ED patient ministered 1 L normal saline, Zofran 4 mg IV x 2, potassium 20 mill equivalent IV x 1 as well as oral potassium 40 mill equivalent p.o. x 1 in addition to Protonix 80 mg IV bolus x 1. Discussed patient with ED and she will also be administered IV rocephin. PFSH Medical History Difficulty walking Urge incontinence Acute cystitis with hematuria Muscle weakness Osteoarthritis Alcoholic hepatitis Alcoholic liver disease Acute respiratory failure with hypoxia Metabolic encephalopathy Major depression Protein calorie malnutrition Acute post-hemorrhagic anemia Dysphagia, oropharyngeal phase Malignant neoplasm of colon Ulcer Restless legs Injury of head and neck Anemia Alcohol abuse Bipolar disorder Hypothyroidism Osteoporosis Kidney stones GERD (gastroesophageal reflux disease) GI bleed Former smoker Home Medications ?Medication ?Instructions ?Recorded ?Last Taken ?Type calcium carbonate (Tums) 200 mg PO BID PRN dyspepsia 07/23/24 Unknown History cholecalciferol (vitamin D3) 1,250 1,250 mcg PO 2XW Unknown History mcg (50,000 unit) capsule cyanocobalamin (vitamin B-12) 1,000 mcg IM QMONTH 07/12 07/08 Unknown History 1,000 mcg/mL injection solution folic acid 1 mg tablet 1 mg PO QDAY 07/23/24 Unknow n History ipratropium 0.5 mg-albuterol 3 mg 3 ml inhalation Q4H PRN shortness 07/23/24 Unknown History (2.5 mg base)/3 mL nebulization of breath soln lidocaine 4 % topical gel 1 applic topical HS 07/23/24 Unknown History magnesium glycinate 100 mg (as 100 mg PO BID 07/23/24 Unknown History glycinate) tablet (Mag Glycinate) magnesium oxide 400 mg PO QDAY 07/23/24 Unkn own History pantoprazole 40 mg tablet,delayed 40 mg PO BID GERD Unknown History release prednisone 50 mg tablet 50 mg PO QDAY 07/23/24 Unkno wn History thiamine HCl (vitamin B1) 100 mg 100 mg PO QDAY Unknown History tablet venlafaxine 37.5 mg 37.5 mg PO QDAY 07/23/24 Unk nown History capsule,extended release 24 hr zinc oxide 20 % topical paste 1 ea topical Q8H PRN ski n 07/23/24 Unknown History irritation Allergy/AdvReac Type Severity Reaction Status Date / Time amoxicillin Allergy Intermediate Swelling, Verified 08/26/24 14:11 itching Family History (Updated 08/26/24 @ 19:[address] Tiff Ramires MD) Mother Alcohol abuse CAD (coronary artery disease) Heart disease Hypertension Myocardial infarction Father Alcohol abuse Cancer Surgical History History of total knee arthroplasty History of right hip replacement H/O total hysterectomy Social History (Updated 08/26/24 @ 19:[address] Tiff Ramires MD) household members: none Smoking Status: Never smoker alcohol intake: current alcohol intake frequency: 3 or more drinks per day details: Notes binge drinking, whiskey. substance use type: other details: Former cannabis usage. Stopped ~ 40 years ago. ROS ROS Narrative Admission Review of Systems: CONSTITUTIONAL: No weight loss, fever, chills, + weakness or fatigue. HEENT: Eyes: No visual loss, blurred vision, double vision or yellow sclerae. Ears, Nose, Throat: No hearing loss, sneezing, congestion, runny nose or sore throat. SKIN: No rash or itching, lesions, wounds. CARDIOVASCULAR: No chest pain, chest pressure or chest discomfort, palpitations,edema, orthopnea, syncopal events. RESPIRATORY: No shortness of breath, cough or sputum, wheezing, hemoptysis. GASTROINTESTINAL: + anorexia, nausea, vomiting, abdominal pain, coffee diarrhea,abdominal pain. No melena, BRBPR. GENITOURINARY: + Increased urinary frequency, urgency. No no dysuria, retention. NEUROLOGICAL: No headache, dizziness, syncope, paralysis, ataxia, numbness or tingling in the extremities, focal weakness, change in bowel or bladder control,seizure. MUSCULOSKELETAL: + muscle, back pain, joint pain or stiffness. HEMATOLOGIC: + Chronic anemia, easy history of bleeding/bruising. LYMPHATICS: No enlarged nodes. No history of splenectomy. PSYCHIATRIC: + History of Anxiety and Depression/Bipolar disorder. ENDOCRINOLOGIC: No reports of sweating, cold or heat intolerance. No polyuria orpolydipsia. ALLERGIES: No history of asthma, hives, eczema or rhinitis. Vital Signs Vital Signs Vital Signs: 08/26/24 14:11 08/26/24 14:26 08/26/24 16:11 Temperature 98.1 F Temperature Source Oral Pulse Rate 118 H 87 Respiratory Rate 19 H 15 Respiratory Pattern Normal Blood Pressure 139/81 H 157/96 H Blood Pressure Mean 100 116 Pulse Ox 97 98 Oxygen Delivery Method Room Air Room Air 08/26/24 18:00 Temperature Temperature Source Pulse Rate 114 H Respiratory Rate 25 H Respiratory Pattern Blood Pressure 131/78 H Blood Pressure Mean 95 Pulse Ox 92 Oxygen Delivery Method Room Air Weight Weight: 188 lb 0.869 oz Body Mass Index (BMI) 25.4 Physical Exam Narrative Physical Examination: General: Awake, alert, oriented x 3 and cooperative, seated upright in the ED bed in no apparent distress, fatigued appearing. Skin: Normal color, normal turgor, no icterus, no cyanosis except for occasionalstage ecchymoses, abrasions HEENT: AT/NC, EOMI, PERRLA, mildly dry MM, no carotid bruits or JVD noted. Lungs: Mildly diminished, greater bases, mild increased respiratory rate but no distress, no rales, ronchi or wheezing. Heart: Mildly tachycardic rate rhythm; no gallop, rub audible. Abdomen: Soft, mild generalized discomfort to palpation, worse in the epigastricand bilateral upper quadrants with no rebound or guarding, hyperactive BS, no distention, discerned HM. Extremities: No cyanosis, clubbing, or edema. Neurological: Patient awake, alert, oriented as noted, cognitive function intact; pupils equally reactive to light and accommodation, cranial nerves grossly normal, moving all 4 extremities, no focal deficits, strength severely global decrease secondary to acute presentation Psychiatric: Affect appears fatigued, no acute evidence of depressive or anxietyfeelings but does have underlying history. Results Lab / Micro Data 08/26/24 14:30 08/26/24 14:30 Labs: Laboratory Results - last 24 hr 08/26/24 14:30: WBC 12.8 H, RBC 4.50, Hgb 13.6, Hct 40.9, MCV 90.9, MCH 30.2, MCHC 33.3, RDW Std Deviation 47.0 H, RDW Coeff of Angelo 14.2, Plt Count 505 H, MPV9.0, Immature Gran % (Auto) 0.500, Neut % (Auto) 48.6, Lymph % (Auto) 42.1 H, Meriwether % (Auto) 6.6, Eos % (Auto) 1.5, Baso % (Auto) 0.7, Absolute Neuts (auto) 6.2, Absolute Lymphs (auto) 5.38 H, Nucleated RBC % 0, Platelet Estimate MOD INC, PT 15.2 H, INR 1.2, APTT 29.5, Sodium 140, Potassium 2.6 L*, Chloride 95 L,Carbon Dioxide 21.5, Anion Gap 23 H, BUN 6, Creatinine 0.69 L, Estim Creat ClearCalc 80.90, Est GFR (MDRD) Non-Af 96, BUN/Creatinine Ratio 8.3 L, Glucose 150 H,Calcium 10.0, Total Bilirubin 0.28, AST 39 H, ALT 21, Alkaline Phosphatase 180 H, Total Protein 7.1, Albumin 3.3 L, Globulin 3.9, Albumin/Globulin Ratio 0.8 L, Lipase 28, Ethyl Alcohol 279.0 H 08/26/24 17:29: Urine Color Yellow, Urine Clarity Cloudy, Urine pH 6.0, Ur Specific Milton 1.015, Urine Protein 30 H, Urine Glucose (UA) Normal, Urine Ketones Negative, Urine Occult Blood 25 H, Urine Nitrite Positive H, Urine Bilirubin Negative, Urine Urobilinogen Normal, Ur Leukocyte Esterase 500 H Imaging Radiology Impression Abdomen/Pelvis CT 08/26/24 15:09 IMPRESSION: 1. Correlate for trace pancreatitis. Similar 12 mm calculus either within or adjacent to the main pancreatic duct with upstream pancreatic ductal dilatation. Given ductal dilatation, recommend clinical follow-up including outpatient pancreatic protocol MRI with and without contrast and with MRCP. 2. Findings suggest cystitis. Correlate with urinalysis. 3. Hiatal hernia with redemonstrated minimally imaged moderate to marked esophageal wall thickening suggesting esophagitis, better seen previously. Unable to exclude underlying neoplasm. Recommend clinical follow-up to exclude this possibility. 4. Distended gallbladder with cholelithiasis. No convincing inflammation. If there is concern, consider RIGHT upper quadrant ultrasound and/or HIDA. 5. Mild wall thickening versus underdistention of the descending and rectosigmoid colon. Correlate for very mild colitis. No adjacent inflammatory changes to confirm this. 6. Enlarged appendix without convincing adjacent inflammation to confirm acute appendicitis. Correlation with presentation and exam is necessary. This could reflect backwash inflammation related to colitis,if present. 7. Increased nonspecific stranding in the LEFT flank and bilateral gluteal regions. Correlate with exam for clinical evidence of cellulitis or possible contusion given an appropriate history of trauma. 8. 3.8 cm LEFT adnexal cyst, incompletely characterized by CT. Given the patient is postmenopausal, recommend outpatient pelvic ultrasound for more definitive characterization. 9. Hepatic steatosis has improved slightly. Correlate with clinical and laboratory evidence of chronic liver disease. 10. Additional description as above. Reading Location: [id number] Assessment & Plan Assessment/Plan (1) GI bleed: PLAN: Plan The patient is a 63 y/o F w/ PMHx: Chronic alcoholic liver disease/chronic alcoholic hepatitis, Severe protein calorie malnutrition, GERD w/ Hx GI bleed, Anxiety and Depression/Bipolar disorder, Hypothyroidism, Former tobacco use, Chronic oropharyngeal phase dysphagia who presents to the [facility] ED on 08/26/24 with history of intermittent episodes of nausea and emesis over the last several months however worse over the last 24 hours with onset of coffee-ground emesis with associated left upper quadrant abdominal paindescribed as aching, burning and sharp intermittently with nothing making it better or worse with no recent diarrhea, melanotic stools or hematochezia with mild recent cough and no specific urinary complaints but significant fatigue andmalaise with ongoing alcohol abuse prompting eventual ED evaluation. #1. Acute GI Bleed with history of chronic anemia, currently hemoglobin 13.6, MCV 90.9 thus improved from prior with underlying alcohol abuse, chronic alcoholic hepatitis: Admission hemoglobin 13.6, MCV 90.9, not severely decreasedbut does have persistent nausea and emesis with coffee-ground emesis now, will admit to [facility] given stable vital sign, maintain on IVFs, obtain serial H+H q 6 hours, maintain on maintain on continuous IV PPI. Given patient is cirrhotic will place on prophylaxis w/ rocephin. GI consulted, evaluation pending. Will allow clears in the interim with n.p.o. status at midnight. #2. Acute Urinary Tract Infection: Will admit to [place], CT abdomen pelvis with findings consistent with urinary tract infection in addition to UA upon ED evaluation remarkable, pending UCx, will continue IVFs, monitor I/Os, continue IV Rocephin w/ transition as able pending sensitivities and speciation. #3. Hyperglycemia: Noted elevated blood sugar upon arrival, 150, no diabetic history, likely related with acute presentation, stress response, alcohol abuse history, will obtain hemoglobin A1c to be cautious. #4. Chronic oropharyngeal phase dysphagia with incidentally noted CT findings concerning for esophagitis, underlying GERD: CT with redemonstrated minimally imaged moderate to marked esophageal wall thickening suggestive of esophagitis, will maintain on PPI as noted, GI consulted and following. #5. Hypokalemia: Admission K+ 2.6, magnesium level requested, supplementation given, repeat level in AM. #6. Left adnexal cyst, incompletely characterized: CT with 3.8 cm left adnexal cyst, given patient is postmenopausal age recommended outpatient pelvic ultrasound, will need to follow-up with PCP/[employer] SAL[employer] REPRESENTATIVE. #7. Chronic Kidney Disease Stage II per previous GFR trending although has vacillated: Admission BUN/Cr 6/0.69, GFR 96 however previously primarily consistent with stage II, baseline renal function primarily 0.7-0.9 but has vacillated, did have presentation recently in May and had acute kidney injury at that time, appears resolved, repeat BMP in AM. #8. EtOH Abuse: Patient notes routine consumption of binge drinking whiskey unfortunately because she cannot determine the amount she drinks daily but says she drinks at least half a gallon and a handful of days. Will maintain on CIWA protocol, MVI, thiamine and folic acid. Patient notes intention of continued EtOH usage. Will continue to monitor and if necessary low threshold to transition to taper protocol. Mag and Phos levels requested. #9. Anxiety and depression/bipolar disorder: Will continue patient home venlafaxine regimen, would benefit from mood stabilizer also given underlying bipolar history, encourage follow-up outpatient with PCP/psychiatry/psychology as previously arranged. Prior records show that patient in the past had been onDepakote but it has not been filled for some time. #10. Hypothyroidism: Noted chart reported history, per current list not on any supplementation, clarifying to be certain, TSH and free T4 will be requested to be cautious. #11. Severe protein calorie malnutrition: Evidenced by habitus, muscle and fat loss, significant underlying comorbidities including alcohol abuse, nutrition consulted. #12. Former tobacco use: Encourage continued tobacco cessation. #13. GERD: As noted will maintain on IV Protonix. #14. DVT prophylaxis: SCDs. #15. CODE status: Patient ABDI is her sister and living will is currently in place. Discussed CODE status at length including difference between FULL code, DNR-CCA and DNR-CC status. Following discussions about the differences in these status, requested Full Code status. Advanced Care Planning Face to Face Time: 16minutes. Charges/Coding Visit Charges Inpatient E&M: 87523 Init Hosp L3 Procedures Hospitalists Procedures: 43096 Advncd Care Plan 30 Min 08/26/241937 <Electronically signed by Tiff Ramires MD> Cosigner Signature (if applicable): CC: Dr. Tiff Ramires MD; Dr. Naye Sheets MD~ Signed [facility] Work Phone: [phone] History and physical note [facility] Medical Records Department [address] [place] [id number] H&P Exam - Hospitalist 08/26/24 1832 MR#: [id number] Acct: [id number] Name: KENYATTA CARRILLO Rep #:[id number] : 1960 63 From: Tiff Ramires MD PCP: Dr. Naye Sheets MD Status:ADM I N Location: [place] [address] HPI - General General Date of Admission: 08/26/24 Date of Service: 08/26/24 Chief Complaint: N/V, coffee ground emesis, abdominal pain. HPI Narrative The patient is a 63 y/o F w/ PMHx: Chronic alcoholic liver disease/chronic alcoholic hepatitis, Severe protein calorie malnutrition, GERD w/ Hx GI bleed, Anxiety and Depression/Bipolar disorder, Hypothyroidism, Former tobacco use, Chronic oropharyngeal phase dysphagia who presents to the [facility] ED on 08/26/24 with history of intermittent episodes of nausea and emesis over the last several months however worse over the last 24 hours with onset of coffee-ground emesis with associated left upper quadrant abdominal paindescribed as aching, burning and sharp intermittently with nothing making it better or worse with no recent diarrhea, melanotic stools or hematochezia with mild recent cough and no specific urinary complaints but significant fatigue andmalaise with ongoing alcohol abuse prompting eventual ED evaluation. In regard to urinary symptoms she does report urinary frequency and some urgency. Workup in the ED included T98.1, heart rate 118, BP 139/81, respiratory rate 19, 97% onroom air with most recent repeat vitals heart rate 87, BP 157/96, respiratory rate 15, 98% on room air, CBC with WBC 12.8, hemoglobin 13.6, MCV 90.9, [id number] with lymphocytosis, coags unremarkable aside PT 15.2, CMP with potassium 2.6, chloride 95, anion gap 23, BUN/creatinine 6/0.69, GFR 96, glucose 150, hepatic profile with T. bili 0.28, AST/ALT 39/21, alk phos 180 otherwise no t marked appearing, urinalysis with cloudy appearing urine, specific gravity 1.015, protein 30, occult blood 25, positive nitrite, leukocyte esterase 500, Ethyl alcohol 279, CT abdomen and pelvis with possible trace pancreatitis, similar 12 mm calculus at there within her adjacent to the main pancreatic duct with upstream pancreatic ductal dilatation, findings suggestive of cystitis, hiatal hernia with re-demonstrated minimally imaged moderate to marked esophageal wall thickening suggestive of esophagitis, distended gallbladder withcholelithiasis with no evidence of inflammation, mild wall thickening versus underdistention of the descending and rectosigmoid colon, enlarged appendix without convincing adjacent inflammation to confirm acute appendicitis, increased nonspecific stranding in the left flank and bilateral gluteal regions,3.8 cm left adnexal cyst incompletely characterized, hepatic steatosis with evidence of chronic liver disease. In the ED patient ministered 1 L normal saline, Zofran 4 mg IV x 2, potassium 20 mill equivalent IV x 1 as well as oral potassium 40 mill equivalent p.o. x 1 in addition to Protonix 80 mg IV bolus x 1. Discussed patient with ED and she will alsobe administered IV rocephin. PFSH Medical History Difficulty walking Urge incontinence Acute cystitis with hematuria Muscle weakness Osteoarthritis Alcoholic hepatitis Alcoholic liver disease Acute respiratory failure with hypoxia Metabolic encephalopathy Major depression Protein calorie malnutrition Acute post-hemorrhagic anemia Dysphagia, oropharyngeal phase Malignant neoplasm of colon Ulcer Restless legs Injury of head and neck Anemia Alcohol abuse Bipolar disorder Hypothyroidism Osteoporosis Kidney stones GERD (gastroesophageal reflux disease) GI bleed Former smoker Home Medications ?Medication ?Instructions ?Recorded ?Last Taken ?Type calcium carbonate (Tums) 200 mg PO BID PRN dyspepsia 07/23/24 Unknown History cholecalciferol (vitamin D3) 1,250 1,250 mcg PO 2XW Unknown History mcg (50,000 unit) capsule cyanocobalamin (vitamin B-12) 1,000 mcg IM QMONTH 07/12 07/08 Unknown History 1,000 mcg/mL injection solution folic acid 1 mg tablet 1 mg PO QDAY 07/23/24 Unknow n History ipratropium 0.5 mg-albuterol 3 mg 3 ml inhalation Q4H PRN shortness 07/23/24 Unknown History (2.5 mg base)/3 mL nebulization of breath soln lidocaine 4 % topical gel 1 applic topical HS 07/23/24 Unknown History magnesium glycinate 100 mg (as 100 mg PO BID 07/23/24 Unknown History glycinate) tablet (Mag Glycinate) magnesium oxide 400 mg PO QDAY 07/23/24 Unkn own History pantoprazole 40 mg tablet,delayed 40 mg PO BID GERD Unknown History release prednisone 50 mg tablet 50 mg PO QDAY 07/23/24 Unkno wn History thiamine HCl (vitamin B1) 100 mg 100 mg PO QDAY Unknown History tablet venlafaxine 37.5 mg 37.5 mg PO QDAY 07/23/24 Unk nown History capsule,extended release 24 hr zinc oxide 20 % topical paste 1 ea topical Q8H PRN ski n 07/23/24 Unknown History irritation Allergy/AdvReac Type Severity Reaction Status Date / Time amoxicillin Allergy Intermediate Swelling, Verified 08/26/24 14:11 itching Family History (Updated 08/26/24 @ 19:[address] Tiff Ramires MD) Mother Alcohol abuse CAD (coronary artery disease) Heart disease Hypertension Myocardial infarction Father Alcohol abuse Cancer Surgical History History of total knee arthroplasty History of right hip replacement H/O total hysterectomy Social History (Updated 08/26/24 @ 19:[address] Tiff Ramires MD) household members: none Smoking Status: Never smoker alcohol intake: current alcohol intake frequency: 3 or more drinks per day details: Notes binge drinking, whiskey. substance use type: other details: Former cannabis usage. Stopped ~ 40 years ago. ROS ROS Narrative Admission Review of Systems: CONSTITUTIONAL: No weight loss, fever, chills, + weakness or fatigue. HEENT: Eyes: No visual loss, blurred vision, double vision or yellow sclerae. Ears, Nose, Throat: No hearing loss, sneezing, congestion, runny nose or sore throat. SKIN: No rash or itching, lesions, wounds. CARDIOVASCULAR: No chest pain, chest pressure or chest discomfort, palpitations,edema, orthopnea, syncopal events. RESPIRATORY: No shortness of breath, cough or sputum, wheezing, hemoptysis. GASTROINTESTINAL: + anorexia, nausea, vomiting, abdominal pain, coffee diarrhea,abdominal pain. No melena, BRBPR. GENITOURINARY: + Increased urinary frequency, urgency. No no dysuria, retention. NEUROLOGICAL: No headache, dizziness, syncope, paralysis, ataxia, numbness or tingling in the extremities, focal weakness, change in bowel or bladder control,seizure. MUSCULOSKELETAL: + muscle, back pain, joint pain or stiffness. HEMATOLOGIC: + Chronic anemia, easy history of bleeding/bruising. LYMPHATICS: No enlarged nodes. No history of splenectomy. PSYCHIATRIC: + History of Anxiety and Depression/Bipolar disorder. ENDOCRINOLOGIC: No reports of sweating, cold or heat intolerance. No polyuria orpolydipsia. ALLERGIES: No history of asthma, hives, eczema or rhinitis. Vital Signs Vital Signs Vital Signs: 08/26/24 14:11 08/26/24 14:26 08/26/24 16:11 Temperature 98.1 F Temperature Source Oral Pulse Rate 118 H 87 Respiratory Rate 19 H 15 Respiratory Pattern Normal Blood Pressure 139/81 H 157/96 H Blood Pressure Mean 100 116 Pulse Ox 97 98 Oxygen Delivery Method Room Air Room Air 08/26/24 18:00 Temperature Temperature Source Pulse Rate 114 H Respiratory Rate 25 H Respiratory Pattern Blood Pressure 131/78 H Blood Pressure Mean 95 Pulse Ox 92 Oxygen Delivery Method Room Air Weight Weight: 188 lb 0.869 oz Body Mass Index (BMI) 25.4 Physical Exam Narrative Physical Examination: General: Awake, alert, oriented x 3 and cooperative, seated upright in the ED bed in no apparent distress, fatigued appearing. Skin: Normal color, normal turgor, no icterus, no cyanosis except for occasionalstage ecchymoses, abrasions HEENT: AT/NC, EOMI, PERRLA, mildly dry MM, no carotid bruits or JVD noted. Lungs: Mildly diminished, greater bases, mild increased respiratory rate but no distress, no rales,ronchi or wheezing. Heart: Mildly tachycardic rate rhythm; no gallop, rub audible. Abdomen: Soft, mild generalized discomfort to palpation, worse in the epigastricand bilateral upperquadrants with no rebound or guarding, hyperactive BS, no distention, discerned HM. Extremities: No cyanosis, clubbing, or edema. Neurological: Patient awake, alert, oriented as noted, cognitive function intact; pupils equally reactive to light and accommodation, cranial nerves grossly normal, moving all 4 extremities, no focaldeficits, strength severely global decrease secondary to acute presentation Psychiatric: Affect appears fatigued, no acute evidence of depressive or anxietyfeelings but does have underlying history. Results Lab / Micro Data 08/26/24 14:30 08/26/24 14:30 Labs: Laboratory Results - last 24 hr 08/26/24 14:30: WBC 12.8 H, RBC 4.50, Hgb 13.6, Hct 40.9, MCV 90.9, MCH 30.2, MCHC 33.3, RDW Std Deviation 47.0 H, RDW Coeff of Angelo 14.2, Plt Count 505 H, MPV9.0, Immature Gran % (Auto) 0.500, Neut %(Auto) 48.6, Lymph % (Auto) 42.1 H, Meriwether % (Auto) 6.6, Eos % (Auto) 1.5, Baso % (Auto) 0.7, Absolute Neuts (auto) 6.2, Absolute Lymphs (auto) 5.38 H, Nucleated RBC % 0, Platelet Estimate MOD INC, PT 15.2 H, INR 1.2, APTT 29.5, Sodium 140, Potassium 2.6 L*, Chloride 95 L,Carbon Dioxide 21.5, Anion Gap 23 H, BUN 6, Creatinine 0.69 L, Estim Creat ClearCalc 80.90, Est GFR (MDRD) Non-Af 96, BUN/Creatinine Ratio 8.3 L, Glucose 150 H,Calcium 10.0, Total Bilirubin 0.28, AST 39 H, ALT 21, Alkaline Phosphatase 180 H, Total Protein 7.1, Albumin 3.3 L, Globulin 3.9, Albumin/Globulin Ratio 0.8 L, Lipase 28, Ethyl Alcohol 279.0 H 08/26/24 17:29: Urine Color Yellow, Urine Clarity Cloudy, Urine pH 6.0, Ur Specific Milton 1.015, Urine Protein 30 H, Urine Glucose (UA) Normal, Urine Ketones Negative, Urine Occult Blood 25 H, Urine Nitrite Positive H, Urine Bilirubin Negative, Urine Urobilinogen Normal, Ur Leukocyte Esterase 500H Imaging Radiology Impression Abdomen/Pelvis CT 08/26/24 15:09 IMPRESSION: 1. Correlate for trace pancreatitis. Similar 12 mm calculus either within or adjacent to the main pancreatic duct with upstream pancreatic ductal dilatation. Given ductal dilatation, recommend clinical follow-up including outpatient pancreatic protocol MRI with and without contrast and with MRCP. 2. Findings suggest cystitis. Correlate with urinalysis. 3. Hiatal hernia with redemonstrated minimally imaged moderate to marked esophageal wall thickeningsuggesting esophagitis, better seen previously. Unable to exclude underlying neoplasm. Recommend clinical follow-up to exclude this possibility. 4. Distended gallbladder with cholelithiasis. No convincing inflammation. If there is concern, consider RIGHT upper quadrant ultrasound and/or HIDA. 5. Mild wall thickening versus underdistention of the descending and rectosigmoid colon. Correlate for very mild colitis. No adjacent inflammatory changes to confirm this. 6. Enlarged appendix without convincing adjacent inflammation to confirm acute appendicitis. Correlation with presentation and exam is necessary. This could reflect backwash inflammation related to colitis,if present. 7. Increased nonspecific stranding in the LEFT flank and bilateral gluteal regions. Correlate with exam for clinical evidence of cellulitis or possible contusion given an appropriate history of trauma. 8. 3.8 cm LEFT adnexal cyst, incompletely characterized by CT. Given the patient is postmenopausal,recommend outpatient pelvic ultrasound for more definitive characterization. 9. Hepatic steatosis has improved slightly. Correlate with clinical and laboratory evidence of chronic liver disease. 10. Additional description as above. Reading Location: [facility] Assessment & Plan Assessment/Plan (1) GI bleed: PLAN: Plan The patient is a 63 y/o F w/ PMHx: Chronic alcoholic liver disease/chronic alcoholic hepatitis, Severe protein calorie malnutrition, GERD w/ Hx GI bleed, Anxiety and Depression/Bipolar disorder, Hypothyroidism, Former tobacco use, Chronic oropharyngeal phase dysphagia who presents to the [facility] ED on 08/26/24 with history of intermittent episodes of nausea and emesis over the last several months however worse over the last 24 hours with onset of coffee-ground emesis with associated left upper quadrant abdominal paindescribed as aching, burning and sharp intermittently with nothing making it better or worse with no recent diarrhea, melanotic stools or hematochezia with mild recent cough and no specific urinary complaints but significant fatigue andmalaise with ongoing alcohol abuse prompting eventual ED evaluation. #1. Acute GI Bleed with history of chronic anemia, currently hemoglobin 13.6, MCV 90.9 thus improved from prior with underlying alcohol abuse, chronic alcoholic hepatitis: Admission hemoglobin 13.6, MCV 90.9, not severely decreasedbut does have persistent nausea and emesis with coffee-ground emesis now, will admit to [facility] tele given stable vital sign, maintain on IVFs, obtain serial H+H q 6 hours, maintain on maintain on continuous IV PPI. Given patient is cirrhotic will place on prophylaxis w/ rocephin. GI consulted, evaluation pending. Will allow clears in the interim with n.p.o. status at midnight. #2. Acute Urinary Tract Infection: Will admit to [facility], CT abdomen pelvis with findings consistent with urinary tract infection in addition to UA upon ED evaluation remarkable, pending UCx, will continue IVFs, monitor I/Os, continue IV Rocephin w/ transition as able pending sensitivities and speciation. #3. Hyperglycemia: Noted elevated blood sugar upon arrival, 150, no diabetic history, likely related with acute presentation, stress response, alcohol abuse history, will obtain hemoglobin A1c to be cautious. #4. Chronic oropharyngeal phase dysphagia with incidentally noted CT findings concerning for esophagitis, underlying GERD: CT with redemonstrated minimally imaged moderate to marked esophageal wall thickening suggestive of esophagitis, will maintain on PPI as noted, GI consulted and following. #5. Hypokalemia: Admission K+ 2.6, magnesium level requested, supplementation given, repeat level in AM. #6. Left adnexal cyst, incompletely characterized: CT with 3.8 cm left adnexal cyst, given patient is postmenopausal age recommended outpatient pelvic ultrasound, will need to follow-up with PCP/CONTAINERS SALES REPRESENTATIVE. #7. Chronic Kidney Disease Stage II per previous GFR trending although has vacillated: Admission BUN/Cr 6/0.69, GFR 96 however previously primarily consistent with stage II, baseline renal function primarily 0.7-0.9 but has vacillated, did have presentation recently in May and had acute kidney i njury at that time, appears resolved, repeat BMP in AM. #8. EtOH Abuse: Patient notes routine consumption of binge drinking whiskey unfortunately because she cannot determine the amount she drinks daily but says she drinks at least half a gallon and a handful of days. Will maintain on CIWA protocol, MVI, thiamine and folic acid. Patient notes intention of continued EtOH usage. Will continue to monitor and if necessary low threshold to transition to taper protocol. Mag and Phos levels requested. #9. Anxiety and depression/bipolar disorder: Will continue patient home venlafaxine regimen, would benefit from mood stabilizer also given underlying bipolar history, encourage follow-up outpatient with PCP/psychiatry/psychology as previously arranged. Prior records show that patient in the past had been onDepakote but it has not been filled for some time. #10. Hypothyroidism: Noted chart reported history, per current list not on any supplementation, clarifying to be certain, TSH and free T4 will be requested to be cautious. #11. Severe protein calorie malnutrition: Evidenced by habitus, muscle and fat loss, significant underlying comorbidities including alcohol abuse, nutrition consulted. #12. Former tobacco use: Encourage continued tobacco cessation. #13. GERD: As noted will maintain on IV Protonix. #14. DVT prophylaxis: SCDs. #15. CODE status: Patient ABDI is her sister and living will is currently in place. Discussed CODEstatus at length including difference between FULL code, DNR-CCA and DNR-CC status. Following discussions about the differences in these status, requested Full Code status. Advanced Care Planning Face to Face Time: 16minutes. Charges/Coding Visit Charges Inpatient E&M: 23733 Init Hosp L3 Procedures Hospitalists Procedures: 36761 Advncd Care Plan 30 Min 08/26/24 1938 Cosigner Signature (if applicable): CC: Dr. Tiff Ramires MD; Dr. Naye Sheets MD~ Signed [facility]04-15-2025 Radiology Diagnostic study note [facility] Imaging Services [address], [place] [id number] HIP, UNI W/ Pelvis 2-3 Views MR#: [id number] Acct: [id number] Name: KENYATTA CARRILLO Rep #: [id number] : 1960 F 63 From: Veronica Benjamin DO PCP: Dr. Naye Sheets MD Status: REG E R Study:HIP, UNI W/ Pelvis 2-3 Views Date of Ex am: 08/26/24 Exam# [id number] Ordering Dr: Jesus Flynn DO PROCEDURE: HIP, UNI W/ PELVIS 2-3 VIEWS 08/26/2024 REASON FOR EXAM: INJURY/PAIN TECHNIQUE: 3 view(s) of the left hip including the pelvis. COMPARISON: 06/10/2022 FINDINGS: Bones: Status post right hip arthroplasty and status post ORIF of the left hip. No acute fracture or dislocation is demonstrated. Degenerative changes of the bilateral sacroiliac joints. Joints: Severe narrowing of the left hip joint. Soft tissues: Unremarkable Other: RAD/HIP, UNI W/ Pelvis 2-3 Views IMPRESSION: No acute fracture. Postop changes as described above. Severe narrowing of the left hip joint. Reading [facility] CC: Dr. Jesus Flynn DO; Dr. Naye Sheets MD ~ Lab Scientist: Signed [facility]04-15-2025 Radiology Diagnostic study note [facility] Imaging Services [address], [place] [id number] Abdomen/Pelvis W IV Cont ONLY MR#: [id number] Acct: [id number] Name: KENYATTA CARRILLO Rep #: [id number] : 1960 F 63 From: Radha Payton MD PCP: Dr. Naye Sheets MD Status: REG E R Study:Abdomen/Pelvis W IV Cont ONLY Date of E xam: 08/26/24 Exam# [id number] Ordering Dr: Jesus Flynn DO PROCEDURE: ABDOMEN/PELVIS W IV CONT ONLY 08/26/2024 REASON FOR EXAM: ABDOMINAL PAIN TECHNIQUE: Abdomen and pelvis CT with intravenous contrast. Coronal and Sagittal reconstruction series were provided. PATIENT PREPARATION: Per protocol ORAL CONTRAST TYPE: None. CONTRAST: Isovue-300 VOLUME: 75 mL One or more dose reduction techniques were used (e.g., Automated exposure control, adjustment of the mA and/or kV according to patient size, use of iterative reconstruction technique. RADIATION DOSE SUMMARY: CTDlvol: 6.65+ 26.77 mGy DLP: 1404.57 mGycm COMPARISON: 06/13/2024 FINDINGS: Pelvis partially obscured by streak artifact related to bilateral femoral orthopedic hardware. Moderate motion limitation through the lung bases greater than he far upper abdomen. Lung bases: Atelectasis/scarring. Minimally imaged distal most esophageal wall thickening. Small hiatal hernia.. Trace mitral annular calcification. Liver: Steatosis has improved slightly. Granulomas. Spleen: Granulomas.. Gallbladder: Distended gallbladder with cholelithiasis. No convincing inflammation. Pancreas: Atrophic. Similar ductal dilatation to 6 mm at the neck. Similar 12 mm intraductal versusparenchymal calculus in the head. Trace stranding along the pancreatic head/uncinate process. Adrenals: Atrophic. Kidneys: Lobulated contours. Punctate nonobstructing intrarenal calculus on theLEFT measures roughly 1-2 mm.. Bowel: Minimal diverticulosis. Minimal rectosigmoid and descending colonic wallthickening may be related to underdistention. Appendix enlarged to 14 mm without convincing adjacent inflammation. Intramuralfat deposition within the marroquin of the appendix and cecum, nonspecific, but can be seen in the setting of obesity or chronic inflammation. Lymph nodes: Unremarkable. Vasculature: Trace atherosclerosis.. Peritoneum: Unremarkable. Bladder: Bladder wall thickening slightly disproportionate to underdistention with mucosal hyperemia. Reproductive Organs: Hysterectomy. 3.8 x 2.8 cm LEFT adnexal cyst. Body Wall: Increased nonspecific stranding in the LEFT flank and bilateral gluteal regions. Tiny fat containing umbilical hernia.. Bones: Demineralization. Multilevel spondylosis. Partially imaged RIGHT hip arthroplasty and intramedullary hardware in the LEFT femur. Severe end-stage degenerative changes of the LEFT hip with dysmorphic appearance.. Mildscoliosis. CT/Abdomen/Pelvis W IV Cont ONLY IMPRESSION: 1. Correlate for trace pancreatitis. Similar 12 mm calculus either within or adjacent to the main pancreatic duct with upstream pancreatic ductal dilatation. Given ductal dilatation, recommend clinical follow-up including outpatient pancreatic protocol MRI with and without contrast and with MRCP. 2. Findings suggest cystitis. Correlate with urinalysis. 3. Hiatal hernia with redemonstrated minimally imaged moderate to marked esophageal wall thickeningsuggesting esophagitis, better seen previously. Unable to exclude underlying neoplasm. Recommend clinical follow-up to exclude this possibility. 4. Distended gallbladder with cholelithiasis. No convincing inflammation. If there is concern, consider RIGHT upper quadrant ultrasound and/or HIDA. 5. Mild wall thickening versus underdistention of the descending and rectosigmoid colon. Correlate for very mild colitis. No adjacent inflammatory changes to confirm this. 6. Enlarged appendix without convincing adjacent inflammation to confirm acute appendicitis. Correlation with presentation and exam is necessary. This could reflect backwash inflammation related to colitis,if present. 7. Increased nonspecific stranding in the LEFT flank and bilateral gluteal regions. Correlate with exam for clinical evidence of cellulitis or possible contusion given an appropriate history of trauma. 8. 3.8 cm LEFT adnexal cyst, incompletely characterized by CT. Given the patient is postmenopausal,recommend outpatient pelvic ultrasound for more definitive characterization. 9. Hepatic steatosis has improved slightly. Correlate with clinical and laboratory evidence of chronic liver disease. 10. Additional description as above. Reading Location: [id number] CC: Dr. Jesus Flynn, DO; Dr. Naye Sheets MD ~ Lab Scientist: Signed [facility]04-09-2025 Telephone encounter Note* Telephone Encounter - Neelam Trimble MA - 08/20/2024 11:40 AM EDT Spoke with patient whom states she was already contacted by [facility] last week sometime andinformed she had been dismissed from the practice. She stated if she has any follow up questions she'll call the [facility] back. I gave her the number again so she had it. Neelam Trimble MA [facility]04-09-2025 Miscellaneous Notes* Telephone Encounter - Neelam Trimble MA - 08/20/2024 11:40 AM EDT Spoke with patient whom states she was already contacted by [facility] last week sometime andinformed she had been dismissed from the practice. She stated if she has any follow up questions she'll call the [facility] office back. I gave her the number again so she had it. Neelam Trimble MA * Telephone Encounter - Naye Sheets MD - 08/20/2024 11:19 AM EDT She was dismissed for no shows. She should be contacting the [facility] office with this and wouldhave been informed about this? * Telephone Encounter - Alison Cespedes LPN - 08/20/2024 10:39 AM EDT Patient calling to reschedule her appt to follow up after shelter visit, she can not get out to her car. She had fallen in her apartment few days ago and had to have squad get her up. Now she said her hip is sticking out not normal, not sure if out of place, she had refused to go to ER when squad got her up. Could not reschedule appt since now her chart has No PCP on it. Patient asking if Carlos is no longer her PCP and if she can not see him? She said she has had issues getting to her appt lately. Please advise [facility] Telephone encounter Note * Telephone Encounter - Liseth Lockwood LPN - 08/20/2024 11:32 AM EDT José Miguel ph. [phone]. [employer] Called and left detailed message for José Miguel that patient has been dismissed from practice. Also let her know that patient is reporting fall to office and that she is having trouble with her hip that she can't get to her car. Advised her to call office with any questions. [facility]04-09-2025 Miscellaneous Notes* Telephone Encounter - Liseth Lockwood LPN - 08/20/2024 11:32 AM EDT José Miguel ph. [phone]. [employer] Called and left detailed message for José Miguel that patient has been dismissed from practice. Also let her know that patient is reporting fall to office and that she is having trouble with her hip that she can't get to her car. Advised her to call office with any questions. [facility] Telephone encounter Note * Telephone Encounter - Naye Sheets MD - 08/20/2024 11:19 AM EDT She was dismissed for no shows. [facility] with this and wouldhave been informed about this? [facility]04-09-2025 Telephone encounter Note* Telephone Encounter - Alison Cespedes LPN - 08/20/2024 10:39 AM EDT Patient calling to reschedule her appt to follow up after shelter visit, she can not get out to her car. She had fallen in her apartment few days ago and had to have squad get her up. Now she said her hip is sticking out not normal, not sure if out of place, she had refused to go to ER when squad got her up. Could not reschedule appt since now her chart has No PCP on it. Patient asking if Carlos is no longer her PCP and if she can not see him? She said she has had issues getting to her appt lately. Please advise [facility]04-08-2025 NotePatient Outreach (FAMPWS) KENYATTA CARRILLO ([id number]) 1960 F Date Time Provider Department 08/19/24 NAYE SHEETSPWS During your visit today, we recorded the following information about you: Allergies As of Date: 08/19/2024 Noted Allergy Reaction AMOXIL (AMOXICILLIN) 11/23/2021 2 - Rash Comments: Face and neck 06/2024: Appears to be tolerating Zosyn. Date Reviewed: 06/27/2024 Reviewed by: Teri Aviles RN - Fully Assessed Visit Diagnosis:Encounter for screening mammogram for breast cancer [Z12.31] Order(s):[facility]ON [facility]DE[facility] [[id number]] Order #: [id number] FUTURE Prescriptions as of 09/19/2024 - calcium carbonate (TUMS) 500 mg chew Take 1 tablet by mouth two times a day as needed. - venlafaxine ER (EFFEXOR XR) 37.5 mg 24 hr capsule Take 1 capsule by mouth daily with breakfast. - prednisoLONE sodium phosphate (ORAPRED) 15 mg/5 mL (3 mg/mL) oral liquid Take 13.3 mL by mouth once daily. Follow-up with your windows vm[employer] administrator to decide on tapering down do not stop abruptly without plan for discontinuation with your [employer] administrator - pantoprazole DR (PROTONIX) 40 mg tablet Take 1 tablet by mouth two times a day. - zinc oxide 20 % ointment Apply to affected area as needed. - thiamine (VITAMIN B1) 100 mg tablet 1 tablet by ORAL/FEEDING TUBE route once daily. - Magnesium Glycinate (MAG GLYCINATE) 100 mg tab Take 1 tablet by mouth two times a day. - benzonatate (TESSALON PERLES) 100 mg capsule Take 1 capsule by mouth three times daily as needed. - cyanocobalamin 1,000 mcg/mL Inject 1 mL intramuscularly once every month. - folic acid 1 mg tablet Take 1 tablet by mouth once daily. - ferrous sulfate 325 mg (65 mg iron) tablet Take 1 tablet by mouth twice daily with meals. Problem List As Of Date 08/19/2024 Noted Resolved Arthritis of knee [M17.10] 01/03/2011 Urgency of urination [R39.15] 01/13/2011 Female stress incontinence [N39.3] 01/13/2011 Urge incontinence [N39.41] 01/13/2011 Moderate dysplasia of cervix [N87.1] 01/13/2011 Symptomatic menopausal or female climacteric st*01/13/2011 Postmenopausal atrophic vaginitis [N95.2] 01/13/2011 Primary localized osteoarthrosis, lower leg [M1*01/31/2011 Abnormality of gait [R26.9] 04/20/2011 Knee pain [M25.569] 04/20/2011 Bipolar 1 disorder, mixed [F31.60] 08/23/2012 Tubular adenoma of colon [D12.6] 08/23/2012 Loose body in elbow joint [M24.029] 11/18/2012 Pain in joint, shoulder region [M25.519] 02/23/2014 Unspecified arthropathy, shoulder region [M19.0*02/23/2014 Fracture of femur, intertrochanteric, right, cl*10/19/2015 06/29/2016 Displaced intertrochanteric fracture of right f*10/19/2015 06/29/2016 Hypothyroidism [E03.9] 06/29/2016 Vitamin D deficiency [E55.9] 06/29/2016 Aseptic necrosis of bone of hip, right (HCC) [M*06/06/2018 06/28/2018 Traumatic arthritis of hip, 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] 06/06/2018 06/28/2018 History of hip replacement, total, right [Z96.6*06/28/2018 Periprosthetic supracondylar fracture of femur *12/27/2018 Periprosthetic fracture around internal prosthe*01/24/2019 Presence of right artificial knee joint [Z96.65*01/24/2019 Anemia [D64.9] 06/16/2022 Diagnosed: 05/22/2023 Bipolar disorder, current episode depressed, mi*11/23/2020 Diagnosed: 05/22/2023 Chronic constipation [K59.09] 05/22/2023 Diagnosed: 05/22/2023 Dysphagia [R13.10] 05/22/2023 Diagnosed: 05/22/2023 Endometriosis of other specified sites [N80.8] 05/22/2023 Diagnosed: 05/22/2023 Fracture dislocation of hip joint (HCC) [S72.00*05/22/2023 Diagnosed: 05/22/2023 Fracture of neck of femur (HCC) [S72.009A] 06/16/2022 Diagnosed: 05/22/2023 Gastroesophageal reflux disease [K21.9] 05/22/2023 Diagnosed: 05/22/2023 History of alcohol abuse [F10.11] 05/22/2023 Diagnosed: 05/22/2023 History of manic depressive disorder [Z86.59] 06/16/2022 Diagnosed: 05/22/2023 History of osteoarthritis [Z87.39] 05/22/2023 Diagnosed: 05/22/2023 History of disease [Z87.898] 05/22/2023 Diagnosed: 05/22/2023 Hypokalemia [E87.6] 06/16/2022 Diagnosed: 05/22/2023 Insomnia [G47.00] 08/13/2001 Diagnosed: 05/22/2023 Loss of consciousness (HCC) [R40.20] 05/22/2023 Diagnosed: 05/22/2023 Major depressive disorder, recurrent, unspecifi*11/23/2020 Diagnosed: 05/22/2023 Nausea with vomiting [R11.2] 08/13/2001 Diagnosed: 05/22/2023 Osteopenia [M85.80] 05/22/2023 Diagnosed: 05/22/2023 Alcoholism (HCC) [F10.20] 05/22/2023 Diagnosed: 05/22/2023 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] 11/09/2003 Diagnosed: 05/22/2023 Other anxiety states [F41.1] 05/22/2023 Diagnosed: 05/22/2023 Other malaise [R53.81] 11/22/2020 Diagnosed: 05/22/2023 Other physical therapy [[id number]] 02/02/2003 Diagnosed: 05/22/2023 Pain in right hip [M25.551] 11/23/2020 Diagnosed: 05/22/2023 Polyp of colon [K63.5] 05/22/2023 Diagnosed: 05/22/2023 Tear (more content not included)...[facility]03-20-2025 Telephone encounter Note* Telephone Encounter - Edna Sales MA - 07/31/2024 5:11 PM EDT Patient canceled visit and rescheduled for next week. [facility]03-20-2025 Miscellaneous Notes* Telephone Encounter - Edna Sales MA - 07/31/2024 5:11 PM EDT Patient canceled visit and rescheduled for next week. * Telephone Encounter - Liseth Lockwood LPN - 07/30/2024 12:55 PM EDT We did receive this fax. Patient has not been seen here since 10/2022 so if patient doesn't come to visit we will not be able to give any orders for her. * Telephone Encounter - Kimberly Sanchez RN - 07/30/2024 11:49 AM EDT Selene Swneson SW from [facility] calls and states that she faxed over discharge paperwork from [facility] on Sunday07/28/2024. Selene reports that she faxed over what patient needs done for labs today 07/31/2023. Selene asking if these lab orders can be placed for patient to get after patient's appointment with [facility] tomorrow. Selene has tried everything to make sure that patient makes appointment tomorrow. Selene is calling and reminding patient of appointment as well as setting up transportation for appointment. Patient currently is living at apartment she had prior to stay at [facility]. Patient was told that she has to find somewhere else new to stay by 08/12. Selene worked with patient on 5 housing applications. Because of patient having to move at the end of month, Home health orders were never ordered. Selene asking if provider can write these orders after seeing patient tomorrow? Selene had all medication sent to [facility] including nebulizer and nebulizer solutions. Selene reports that [facility] did not have nebulizer machine. Provider may have to write order for this as well. Selene aware that patient had declined [facility]. Caregivers would not help her to move so she declined services. Selene tried to explain to patient that Caregivers could help her with nursingthings such as dressing changes and picking up medications and that patient should not have declined services. Kimberly Sanchez RN documented [facility]03-[facility] Telephone encounter Note * Telephone Encounter - Liseth Lockwood LPN - 07/30/2024 12:55 PM EDT We did receive this fax. Patient has not been seen here since 10/2022 so if patient doesn't come to visit we will not be able to give any orders for her. [facility]03-19-2025 Telephone encounter Note* Telephone Encounter - Kimberly Sanchez RN - 07/30/2024 11:49 AM EDT Selene Swenson SW from [facility] calls and states that she faxed over discharge paperwork from [facility] on Sunday07/28/2024. Selene reports that she faxed over what patient needs done for labs today 07/31/2023. Selene asking if these lab orders can be placed for patient to get after patient's appointment with [facility] tomorrow. Selene has tried everything to make sure that patient makes appointment tomorrow. Selene is calling and reminding patient of appointment as well as setting up transportation for appointment. Patient currently is living at apartment she had prior to stay at [facility]. Patient was told that she has to find somewhere else new to stay by 08/12. Selene worked with patient on 5 housing applications. Because of patient having to move at the end of month, Home health orders were never ordered. Selene asking if provider can write these orders after seeing patient tomorrow? Selene had all medication sent to [facility] including nebulizer and nebulizer solutions. Selene reports that [facility] did not have nebulizer machine. Provider may have to write order for this as well. Selene aware that patient had declined [facility]. Caregivers would not help her to move so she declined services. Selene tried to explain to patient that Caregivers could help her with nursingthings such as dressing changes and picking up medications and that patient should not have declined services. Kimberly Sanchez, RN [facility]03-18-2025 Telephone encounter Note* Telephone Encounter - Naye Sheets MD - 07/29/2024 2:05 PM EDT Ok. Agree [facility] needs notified. Thanks [facility]03-18-2025 Miscellaneous Notes* Telephone Encounter - Naye Sheets MD - 07/29/2024 2:05 PM EDT Ok. Agree [facility] needs notified. Thanks * Telephone Encounter - Dianne Caba MSW - 07/29/2024 1:45 PM EDT Sw received message from Wali Martínez [employer]. She reports that patient came home this pastFriday from [facility]. [facility] when out today to reopen her case for assisted living home director assistance. Notes patient was vomiting when [facility] was out at home and did not have her medications. Patient is refusing home care assistance services from [facility]. José Miguel noted that she has called [facility] to update them on this issue. EVANS Martínez notes that she is calling to update Dr. Sheets as well with this information. José Miguel ph. [phone]. documented in this encounterKindred [facility]03-18-2025 Telephone encounter Note * Telephone Encounter - Dianne Caba MSW - 07/29/2024 1:45 PM EDT Sw received message from Wali Martínez [employer]. She reports that patient came home this pastFr from [facility]. [facility] when out today to reopen her case for assisted living home director assistance. Notes patient was vomiting when [facility] was out at home and did not have her medications. Patient is refusing home care assistance services from [facility]. José Miguel noted that she has called [facility] to update them on this issue. EVANS Martínez notes that she is calling to update Dr. Sheets as well with this information. José Miguel ph. [phone]. [facility]03-17-2025 Telephone encounter Note* Telephone Encounter - Liseth Lockwood LPN - 07/28/2024 6:44 PM EDT Patient not seen since 10/2022 we can't sign her orders for Lorenzo Yoselyn. [facility]03-17-2025 Miscellaneous Notes* Telephone Encounter - Liseth Lockwood LPN - 07/28/2024 6:44 PM EDT Patient not seen since 10/2022 we can't sign her orders for Lorenzo Topete. documented in this encounterKindred [facility]03-12-2025 Evaluation note* Diagnosis Onset Date Resolution Status Admit Date Alcoholic hepatitis acute July 23, 2024 12:18pm Upper GI bleed acute July 12:18pm Alcohol intoxication acute Apri l 2024 6:33pm GI bleed acute August 26 6:33pm Upper GI bleed acute August 6:33pm Urinary tract infection acute A pril 2024 6:33pm [facility] Work Phone: 1(555) 918-830203-12-2025 Evaluation note* Diagnosis Onset Date Resolution Status Admit Date Alcoholic hepatitis acute July 23, 2024 12:18pm Upper GI bleed acute July 12:18pm Alcohol intoxication acute Apri l 2024 6:33pm Alcoholic hepatitis acute August 26, 2024 6:33pm Anemia acute August 26 6:33pm Cholelithiasis acute August 6:33pm Dilated pancreatic duct acute A pril 2024 6:33pm GI bleed acute August 26 6:33pm Upper GI bleed acute August 6:33pm Urinary tract infection acute A pril 2024 6:33pm [facility] Work Phone: 1(774) 727-482803-06-2025 Telephone encounter Note* Telephone Encounter - Alexy Newsome - 07/17/2024 10:00 AM EST Patient is an exclusion from post discharge call back program ([facility] Facility) [facility]03-06-2025 Miscellaneous Notes* Telephone Encounter - Alexy Newsome - 07/17/2024 10:00 AM EST Patient is an exclusion from post discharge call back program ([facility] Facility) documented in this encounterKind[facility]02-25-2025 Telephone encounter Note * Telephone Encounter - Karolina Larsen - 07/08/2024 3:35 PM EST Patient is an exclusion from post discharge call back program for discharge date of 06/28/2024. (SNF) [facility]02-25-2025 Miscellaneous Notes* Telephone Encounter - Karolina Larsen - 07/08/2024 3:35 PM EST Patient is an exclusion from post discharge call back program for discharge date of 06/28/2024. (SNF) documented in this encounterKindred Healthcare02-18-2025 Telephone encounter Note * Telephone Encounter - Susi Patterson - 07/01/2024 11:33 AM EST Patient is an exclusion from post discharge call back program for discharge date of 06/28/2024. (SNF) [facility]02-18-2025 Miscellaneous Notes* Telephone Encounter - Susi Patterson - 07/01/2024 11:33 AM EST Patient is an exclusion from post discharge call back program for discharge date of 06/28/2024. (SNF) documented in this encounterKindred Healthcare02-17-2025 History of Present illness Narrative* Gracie Gillis RPh - 06/30/2024 2:39 PM EST TRANSITION CARE MANAGEMENT (TCM) PHARMACY CONTACT Provider Action/FYI: Pharmacy outreach deferred due to patient discharged to SNF. No further attempts will be made to contact the patient at this time. Pharmacy outreach deferred due to patient discharged to SNF. No further attempts will be made to contact the patient at this time. History of Present Illness: The following content has been copied and pasted from patient's discharge summary. If discharge summary unavailable, After Visit Summary or last pertinent inpatient notes are copied and pasted. REASON I WAS IN THE HOSPITAL: GI bleed, esophagitis, alcohol abuse, alcoholic hepatitis, transaminitis, coagulopathy, hypomagnesemia, diarrhea, electrolyte abnormalities, sepsis, Proteus UTI, left lower lobe aspiration ammonia, JESSICA SUMMARY OF WHAT HAPPENED WHILE I WAS IN THE HOSPITAL: Ms. Kenyatta Carrillo is a 63 year old female with PMH of alcohol use presented here for concerns of upper GI bleed s/p intubation for airway protection and 3 units pRBC at [facility]. EGD showedulcerative esophagitis and adherent clot was removed. She is also being treated for LLL aspiration MSSA pneumonia and proteus UTI with zosyn completed her course with improvement. She was treated with prednisolone for acute alcoholic liver disease with high MDF score she was recommended to continuethis until follow-up with gastroenterology with eventual plan to taper. She had severe hypomagnesemia was treated with IV replacement close outpatient follow-up. She will need follow-up EGD in 8 weeks. OTHER PROBLEMS/DIAGNOSIS: Principal Problem: Upper GI bleed Active Problems: Toxic metabolic encephalopathy Acute kidney injury (HCC) Coagulopathy (HCC) Liver dysfunction Gastrointestinal hemorrhage with melena Alcohol use Acute cystitis with hematuria Acute blood loss anemia Alcoholic hepatitis without ascites Thrombocytopenia (HCC) Acute respiratory failure with hypoxia (HCC) Malnutrition of mild degree (HCC) Resolved Problems: * No resolved hospital problems. * OPERATIONS PERFORMED WHILE IN THE HOSPITAL: EGD IMPORTANT TEST/PROCEDURES: No procedures performed TEST RESULTS NOT AVAILABLE AT THIS TIME: No pending results Discharge Disposition Discharge Disposition: Home With Self Care Medication Reconciliation: Legend: Stopped, New, Changed, Added to list Medication List Medication Directions Comments Action/Plan benzonatate (TESSALON PERLES) 100 mg capsule Take 1 capsule by mouth three times daily as needed. calcium carbonate (TUMS) 500 mg chew Take 1 tablet by mouth two times a day as needed. cyanocobalamin 1,000 mcg/mL Inject 1 mL intramuscularly once every month. ferrous sulfate 325 mg (65 mg iron) tablet Take 1 tablet by mouth twice daily with meals. folic acid 1 mg tablet Take 1 tablet by mouth once daily. Magnesium Glycinate (MAG GLYCINATE) 100 mg tab Take 1 tablet by mouth two times a day. Discontinued: 06/28/2024 5:05 PM Discontinued: 06/28/2024 5:[address] (PROTONIX) 40 mg tablet Take 1 tablet by mouth two times a day. prednisoLONE sodium phosphate (ORAPRED) 15 mg/5 mL (3 mg/mL) oral liquid Take 13.3 mL by mouth oncedaily. Follow-up with your windows vm[employer] administrator to decide on tapering down do not stop abruptly without plan for discontinuation with your windows vmware administrator thiamine (VITAMIN B1) 100 mg tablet 1 tablet by ORAL/FEEDING TUBE route once daily. venlafaxine ER (EFFEXOR XR) 37.5 mg 24 hr capsule Take 1 capsule by mouth daily with breakfast. zinc oxide 20 % ointment Apply to affected area as needed. Preferred pharmacy: [id number] - [place] [address] - [address] [facility] [id number] [place] [phone] Estimated Creatinine Clearance: 127.2 mL/min (A) (based on SCr of 0.54 mg/dL (L)). Estimated Glomerular Filtration Rate (mL/min/1.73m ) Date Value 06/28/2024 102 eGFR- (no units) Date Value 11/22/2020 Greater than 60 Additional follow up: Next 5 Appointments Date and Time Provider Department Dept Phone 09/10/2024 2:30 PM Bernardo Carr [facility] [phone] Interventions Made: None Pharmacist Recommendations Made None Care Coordination: None at this time Time spent on patient: 0-15 minutes Gracie Gillis RPh June 30, 2024 2:39 PM documented in this encounterKindred Healthcare02-17-2025 NoteHNO ID: [id number] Author: GRACIE GILLIS [facility] Service: Pharmacy Author Type: Pharmacist Type: Progress Notes Filed: 06/30/2024 14:42 Note Text: TRANSITION CARE MANAGEMENT (TCM) PHARMACY CONTACT Provider Action/FYI: Pharmacy outreach deferred due to patient discharged to SNF. No further attempts will be made to contact the patient at this time. Pharmacy outreach deferred due to patient discharged to SNF. No further attempts will be made to contact the patient at this time. History of Present Illness: The following content has been copied and pasted from patient's discharge summary. If discharge summary unavailable, After Visit Summary or last pertinent inpatient notes are copied and pasted. REASON I WAS IN THE HOSPITAL: GI bleed, esophagitis, alcohol abuse, alcoholic hepatitis, transaminitis, coagulopathy, hypomagnesemia, diarrhea, electrolyte abnormalities, sepsis, Proteus UTI, left lower lobe aspiration ammonia, JESSICA SUMMARY OF WHAT HAPPENED WHILE I WAS IN THE HOSPITAL: Ms. Kenyatta Carrillo is a 63 year old female with PMH of alcohol use presented here for concerns of upper GI bleed s/p intubation for airway protection and 3 units pRBC at [facility]. EGD showed ulcerative esophagitis and adherent clot was removed. She is also being treated for LLL aspiration MSSA pneumonia and proteus UTI with zosyn completed her course with improvement. She was treated with prednisolone for acute alcoholic liver disease with high MDF score she was recommended to continue this until follow-up with gastroenterology with eventual plan to taper. She had severe hypomagnesemia was treated with IV replacement close outpatient follow-up. She will need follow-up EGD in 8 weeks. OTHER PROBLEMS/DIAGNOSIS: Principal Problem: Upper GI bleed Active Problems: Toxic metabolic encephalopathy Acute kidney injury (HCC) Coagulopathy (HCC) Liver dysfunction Gastrointestinal hemorrhage with melena Alcohol use Acute cystitis with hematuria Acute blood loss anemia Alcoholic hepatitis without ascites Thrombocytopenia (HCC) Acute respiratory failure with hypoxia (HCC) Malnutrition of mild degree (HCC) Resolved Problems: * No resolved hospital problems. * OPERATIONS PERFORMED WHILE IN THE HOSPITAL: EGD IMPORTANT TEST/PROCEDURES: No procedures performed TEST RESULTS NOT AVAILABLE AT THIS TIME: No pending results Discharge Disposition Discharge Disposition: Home With Self Care Medication Reconciliation: Legend: Stopped, New, Changed, Added to list Medication List Medication Directions Comments Action/Plan benzonatate (TESSALON PERLES) 100 mg capsule Take 1 capsule by mouth three times daily as needed. calcium carbonate (TUMS) 500 mg chew Take 1 tablet by mouth two times a day as needed. cyanocobalamin 1,000 mcg/mL Inject 1 mL intramuscularly once every month. ferrous sulfate 325 mg (65 mg iron) tablet Take 1 tablet by mouth twice daily with meals. folic acid 1 mg tablet Take 1 tablet by mouth once daily. Magnesium Glycinate (MAG GLYCINATE) 100 mg tab Take 1 tablet by mouth two times a day. Discontinued: 06/28/2024 5:05 PM Discontinued: 06/28/2024 5:[address] (PROTONIX) 40 mg tablet Take 1 tablet by mouth two times a day. prednisoLONE sodium phosphate (ORAPRED) 15 mg/5 mL (3 mg/mL) oral liquid Take 13.3 mL by mouth once daily. Follow-up with your windows vm[employer] administrator to decide on tapering down do not stop abruptly without plan for discontinuation with your windows vmware administrator thiamine (VITAMIN B1) 100 mg tablet 1 tablet by ORAL/FEEDING TUBE route once daily. venlafaxine ER (EFFEXOR XR) 37.5 mg 24 hr capsule Take 1 capsule by mouth daily with breakfast. zinc oxide 20 % ointment Apply to affected area as needed. Preferred pharmacy: [id number] [place] [address] - [address] [facility] [id number] [place] [phone] Estimated Creatinine Clearance: 127.2 mL/min (A) (based on SCr of 0.54 mg/dL (L)). Estimated Glomerular Filtration Rate (mL/min/1.73m?) Date Value 06/28/2024 102 eGFR- (no units) Date Value 11/22/2020 Greater than 60 Additional follow up: Next 5 Appointments Date and Time Provider Department Dept Phone 09/10/2024 2:30 PM Bernardo Carr [facility] [phone] Interventions Made: None Pharmacist Recommendations Made None Care Coordination: None at this time Time spent on patient: 0-15 minutes Gracie Gillis RPh June 30, 2024 2:39 [facility]02-17-2025 NotePatient Outreach (PHRXRF) KENYATTA CARRILLO ([id number]) 1960 F Date Time Provider Department 06/30/24 GRACIE GILLIS PHRXRF During your visit today, we recorded the following information about you: Gracie Gillis [facility] 06/30/2024 2:42 PM Signed TRANSITION CARE MANAGEMENT (TCM) PHARMACY CONTACT Provider Action/FYI: Pharmacy outreach deferred due to patient discharged to SNF. No further attempts will be made to contact the patient at this time. Pharmacy outreach deferred due to patient discharged to SNF. No further attempts will be made to contact the patient at this time. History of Present Illness: The following content has been copied and pasted from patient's discharge summary. If discharge summary unavailable, After Visit Summary or last pertinent inpatient notes are copied and pasted. REASON I WAS IN THE HOSPITAL: GI bleed, esophagitis, alcohol abuse, alcoholic hepatitis, transaminitis, coagulopathy, hypomagnesemia, diarrhea, electrolyte abnormalities, sepsis, Proteus UTI, left lower lobe aspiration ammonia, JESSICA SUMMARY OF WHAT HAPPENED WHILE I WAS IN THE HOSPITAL: Ms. Kenyatta Carrillo is a 63 year old female with PMH of alcohol use presented here for concerns of upper GI bleed s/p intubation for airway protection and 3 units pRBC at [facility]. EGD showed ulcerative esophagitis and adherent clot was removed. She is also being treated for LLL aspiration MSSA pneumonia and proteus UTI with zosyn completed her course with improvement. She was treated with prednisolone for acute alcoholic liver disease with high MDF score she was recommended to continue this until follow-up with gastroenterology with eventual plan to taper. She had severe hypomagnesemia was treated with IV replacement close outpatient follow-up. She will need follow-up EGD in 8 weeks. OTHER PROBLEMS/DIAGNOSIS: Principal Problem: Upper GI bleed Active Problems: Toxic metabolic encephalopathy Acute kidney injury (HCC) Coagulopathy (HCC) Liver dysfunction Gastrointestinal hemorrhage with melena Alcohol use Acute cystitis with hematuria Acute blood loss anemia Alcoholic hepatitis without ascites Thrombocytopenia (HCC) Acute respiratory failure with hypoxia (HCC) Malnutrition of mild degree (HCC) Resolved Problems: * No resolved hospital problems. * OPERATIONS PERFORMED WHILE IN THE HOSPITAL: EGD IMPORTANT TEST/PROCEDURES: No procedures performed TEST RESULTS NOT AVAILABLE AT THIS TIME: No pending results Discharge Disposition Discharge Disposition: Home With Self Care Medication Reconciliation: Legend: Stopped, New, Changed, Added to list Medication List Medication Directions Comments Action/Plan benzonatate (TESSALON PERLES) 100 mg capsule Take 1 capsule by mouth three times daily as needed. calcium carbonate (TUMS) 500 mg chew Take 1 tablet by mouth two times a day as needed. cyanocobalamin 1,000 mcg/mL Inject 1 mL intramuscularly once every month. ferrous sulfate 325 mg (65 mg iron) tablet Take 1 tablet by mouth twice daily with meals. folic acid 1 mg tablet Take 1 tablet by mouth once daily. Magnesium Glycinate (MAG GLYCINATE) 100 mg tab Take 1 tablet by mouth two times a day. Discontinued: 06/28/2024 5:05 PM Discontinued: 06/28/2024 5:[address] (PROTONIX) 40 mg tablet Take 1 tablet by mouth two times a day. prednisoLONE sodium phosphate (ORAPRED) 15 mg/5 mL (3 mg/mL) oral liquid Take 13.3 mL by mouth once daily. Follow-up with your windows vmware administrator to decide on tapering down do not stop abruptly without plan for discontinuation with your windows vmware administrator thiamine (VITAMIN B1) 100 mg tablet 1 tablet by ORAL/FEEDING TUBE route once daily. venlafaxine ER (EFFEXOR XR) 37.5 mg 24 hr capsule Take 1 capsule by mouth daily with breakfast. zinc oxide 20 % ointment Apply to affected area as needed. Preferred pharmacy: [id number] [place] [address] [address] [facility] - [phone] [address] [facility] [id number] Estimated Creatinine Clearance: 127.2 mL/min (A) (based on SCr of 0.54 mg/dL (L)). Estimated Glomerular Filtration Rate (mL/min/1.73m?) Date Value 06/28/2024 102 eGFR- (no units) Date Value 11/22/2020 Greater than 60 Additional follow up: Next 5 Appointments Date and Time Provider Department Dept Phone 09/10/2024 2:30 PM Bruno Bernardo Ray [facility] [phone] Interventions Made: None Pharmacist Recommendations Made None Care Coordination: None at this time Time spent on patient: 0-15 minutes Gracie Gillis [facility] June 30, 2024 2:39 PM Allergies As of Date: 06/30/2024 Noted Allergy Reaction AMOXIL (AMOXICILLIN) 11/23/2021 2 - Rash Comments: Face and neck 06/2024: Appears to be tolerating Zosyn. Date Reviewed: 06/27/2024 Reviewed (more content not included)...[facility]02-14-2025 Note [facility]02-13-2025 [facility] 06-25-2024 [facility]02-11-2025 [facility]02-10-2025 [facility]02-09-2025 [facility]02-08-2025 [facility]02-08-2025 NoteHNO ID: [id number] Author: NOTE, INTERFACE, ? Service: ? Author Type: ? Type: Progress Notes Filed: 06/21/2024 02:49 Note Text: Epic Scheduled Downtime: 06/21/2024 1:00:00 AM to 06/21/2024 2:36:00 [facility]2025 NoteHNO ID: [id number] Author: DANETTE CHANDRA RN Service: ? Author Type: Registered Nurse Type: Nursing Progress Note Filed: 06/19/2024 18:52 Note Text: Other: Transferred pt via bed.[facility]02-06-2025 NoteHNO ID: [id number] Author: DANETTE CHANDRA RN Service: ? Author Type: Registered Nurse Type: Nursing Progress Note Filed: 06/19/2024 17:59 Note Text: Other: Report called to 7100 RN. Bed not clean at this point.[facility]02[facility]06[facility] Note [facility] NoteHNO ID: [id number] Author: CHIDI ABAD APRN.CNP Service: ? Author Type: Nurse Practitioner Type: Procedures Filed: 06/19/2024 00:25 Note Text: Arterial Line PROCEDURE NOTE Patient: Kenyatta Carrillo Date: June 14, 2024 Procedure Time: 34 INFORMED CONSENT: The patient was incapable of consenting to the procedure due to incapacity, and the legal passenger representative was unable to be contacted in a timely manner due to clinical urgency. SAFE PRACTICE Sign in Communication: Completed. Time Out: The procedural team confirmed the Correct Patient, the Correct Procedure, the Correct Site and the Correct Position (if applicable) during the audible time out: Completed. Sign Out Communication: Completed. INDICATION FOR LINE PLACEMENT: Continuous blood pressure monitoring and Frequent ABGs for ventilator weaning CONDITION OF LINE PLACEMENT: Sterile PRIMARY PROCEDURALIST: Chidi CEDENO ARTIFICIAL FLOWER MAKER(S): none PROCEDURE NARRATIVE Site Marked: Yes Malena?s Test yes Skin Preparation: Chlorhexidine Gluconate Barriers Used by Proceduralist and All Assisting Personnel: Yes Barriers Used: Sterile Gloves CATHETER PLACEMENT/PLACEMENT TECHNIQUE Anesthesia was obtained with none. The right radial artery was cannulated with a 20 g arterial catheter. Number of attempts at insertion: 2 Bright red pulsatile blood exited catheter:No Appropriate wave form was noted: No Line Secured with: NA Sterile dressing applied and dated: Yes Estimated Blood Loss: 0cc Procedure was performed while vehicle in motion: yes COMPLICATIONS: None. The patient tolerated the procedure yes Successful Placement: unable to cannulate artery. Procedure was aborted after 2 attempts SIGNATURE: Chidi Abad APRN.CNP PATIENT NAME: Kenyatta Carrillo DATE: 06/14/24 TIME: 0005 PAGER/CONTACT #: [place] [id number] Procedure note* Chidi Abad APRN.CNP - 06/15/2024 1:25 AM EST Images from the original note were not included. Arterial Line PROCEDURE NOTE Patient: Kenyatta Carrillo Date: June 14, 2024 Procedure Time: 34 INFORMED CONSENT: The patient was incapable of consenting to the procedure due to incapacity, and the legal passenger representative was unable to be contacted in a timely manner due to clinical urgency. SAFE PRACTICE Sign in Communication: Completed. Time Out: The procedural team confirmed the Correct Patient, the Correct Procedure, the Correct Site and the Correct Position (if applicable) during the audible time out: Completed. Sign Out Communication: Completed. INDICATION FOR LINE PLACEMENT: Continuous blood pressure monitoring and Frequent ABGs for ventilator weaning CONDITION OF LINE PLACEMENT: Sterile PRIMARY PROCEDURALIST: Chidi CEDENO ARTIFICIAL FLOWER MAKER(S): none PROCEDURE NARRATIVE Site Marked: Yes Malena s Test yes Skin Preparation: Chlorhexidine Gluconate Barriers Used by Proceduralist and All Assisting Personnel: Yes Barriers Used: Sterile Gloves CATHETER PLACEMENT/PLACEMENT TECHNIQUE Anesthesia was obtained with none. The right radial artery was cannulated with a 20 g arterial catheter. Number of attempts at insertion: 2 Bright red pulsatile blood exited catheter:No Appropriate wave form was noted: No Line Secured with: NA Sterile dressing applied and dated: Yes Estimated Blood Loss: 0cc Procedure was performed while vehicle in motion: yes COMPLICATIONS: None. The patient tolerated the procedure yes Successful Placement: unable to cannulate artery. Procedure was aborted after 2 attempts SIGNATURE: Chidi Abad APRN.CNP PATIENT NAME: Kenyatta Carrillo DATE: 06/14/24 TIME: 4 PAGER/CONTACT #: NANNETTE [facility] Work Phone: [phone]) 187-502302-02-2025 Procedure note* Chidi Abad APRN.CNP - 06/15/2024 1:25 AM EST Images from the original note were not included. Arterial Line PROCEDURE NOTE Patient: Kenyatta Carrillo Date: June 14, 2024 Procedure Time: 34 INFORMED CONSENT: The patient was incapable of consenting to the procedure due to incapacity, and the legal passenger representative was unable to be contacted in a timely manner due to clinical urgency. SAFE PRACTICE Sign in Communication: Completed. Time Out: The procedural team confirmed the Correct Patient, the Correct Procedure, the Correct Site and the Correct Position (if applicable) during the audible time out: Completed. Sign Out Communication: Completed. INDICATION FOR LINE PLACEMENT: Continuous blood pressure monitoring and Frequent ABGs for ventilator weaning CONDITION OF LINE PLACEMENT: Sterile PRIMARY PROCEDURALIST: Chidi CEDENO ARTIFICIAL FLOWER MAKER(S): none PROCEDURE NARRATIVE Site Marked: Yes Malena s Test yes Skin Preparation: Chlorhexidine Gluconate Barriers Used by Proceduralist and All Assisting Personnel: Yes Barriers Used: Sterile Gloves CATHETER PLACEMENT/PLACEMENT TECHNIQUE Anesthesia was obtained with none. The right radial artery was cannulated with a 20 g arterial catheter. Number of attempts at insertion: 2 Bright red pulsatile blood exited catheter:No Appropriate wave form was noted: No Line Secured with: NA Sterile dressing applied and dated: Yes Estimated Blood Loss: 0cc Procedure was performed while vehicle in motion: yes COMPLICATIONS: None. The patient tolerated the procedure yes Successful Placement: unable to cannulate artery. Procedure was aborted after 2 attempts SIGNATURE: Chidi Abad APRN.CNP PATIENT NAME: Kenyatta Carrillo DATE: 06/14/24 TIME: 4 PAGER/CONTACT #: NA documented in this encounterKind[facility]25 [facility]02-01-2025 [facility]01-2025 [facility]02-01-2025 [facility]02-01-2025 [facility]02-01-2025 Note SARS-COV-2 (AGENT OF COVID-19) RNA: Not detected INFLUENZA A RNA: Not detected INFLUENZA B RNA: Not detected RESPIRATORY SYNCYTIAL VIRUS (RSV) RNA: Not detectedMillinocket Regional HospitalComment on above:Performed By: #### [id number] ####[facility] [id number] [address] [id number] NoteHNO ID: [id number] Author: LORRAINE BERNARDO II, MD Service: ? Author Type: Physician Type: Progress Notes Filed: 06/19/2024 00:25 Note Text: Critical Care Transport Note Patient Name: Kenyatta Carrillo Service Date: June 13, 2024 Referring Facility: [facility] Accepting Facility: [facility] SUBJECTIVE/CHIEF COMPLAINT: AMS- unable to obtain REASON FOR TRANSPORT: Higher level of critical care services unavailable at sending facility History of Present Illness: The following history is what was known to CCT team at time of given care and summarized through review of available medical records, patient/family interview and from referring physician and nursing report. Kenyatta Carrillo is a 63 year old female with a past medical history significant for ETOH dependence and bipolar disorder. She presented to [facility] for evaluation of AMS and GIB. Her home health nurse came to her house and found her covered in feces and blood with AMS. She was brought to the [facility] ED and found to have a UTI and PNA. While in the ED, the pt multiple episodes of dark red bloody stools and coffee ground emesis. BP 70/30's, lactate 8.6, Hgb 8 with repeat Hgb 6.8, INR 5, K+ 2.4, Mg 0.9. She was given a total of 3 units PRBCs and 4L IVF. She was intubated for airway protection and started on fentanyl. At this time, the physician managing the patient requested transfer to [facility] for tertiary and/or quaternary services unavailable at the referring facility. Patient condition at time of exam was: Acutely ill and critically ill. Due to the unique circumstances of the patient, it was determined that this was the closest, most appropriate facility by referring physician. The physician managing the patient requested the [facility] Critical Care Transport Team transport and treat the patient for the purpose of tertiary care, evaluation, and management of her acute condition(s). Air medical transport was requested to reduce the [id number] time but declined for inclement weather. ROS: Could not obtain due to patient's mental status/critical illness PAST MEDICAL HISTORY: PAST MEDICAL HISTORY Diagnosis Date Alcohol dependence (HCC) Bipolar 1 disorder, depressed (HCC) 80s Colon polyps 07/31/2001 TVA Eating disorder Endometriosis, site unspecified Endometriosis High blood sugar Knee pain Moderate dysplasia of cervix 80's Osteopenia 05/14/2011 PAST SURGICAL HISTORY: PAST SURGICAL HISTORY Procedure Laterality Date CAUTERY CERVIX CRYOCAUTERY INITIAL/REPEAT s COLONOSCOPY 08/05/2002 no polyp COLONOSCOPY AND POLYPECTOMY 07/31/2001 TVA removed COLONOSCOPY FLX DX W/COLLJ SPEC WHEN PFRMD 07/22/2014 Colonoscopy ESOPHAGOGASTRODUODENOSCOPY TRANSORAL DIAGNOSTIC 07/22/2014 EGD HYSTERECTOMY HX 2001 LAVH/BSO KNEE LEFT OP SURGERY 3 surgeries KNEE RIGHT OP SURGERY 5 knee surgeies - last being TKA LAPS ABD PRTMANDOMENTUM DX W/WO SPEC BR/WA SPX Laparoscopy 8-10 of them for endometriosis PAST SURGICAL HISTORY OF 2004 left wrist surgery PAST SURGICAL HISTORY OF Right 2016 ORIF right hip PAST SURGICAL HISTORY OF Right 11/2020 elbow fracture SHOULDER ARTHROSCOPY/SURGERY ALLERGIES: Amoxil [Amoxicillin] SOCIAL HISTORY: Social History Tobacco Use Smoking status: Former Smokeless tobacco: Never Tobacco comments: quit in 2018 Vaping Use Vaping status: Never Used Substance Use Topics Alcohol use: Yes Drug use: No FAMILY HISTORY: FAMILY HISTORY Problem Relation Age of Onset Diabetes Mother Emphysema Mother COPD Mother Cancer Mother throat and met to lung and brain Alcohol/Drug Mother Stroke Mother Heart disease Mother other (lung cancer) Mother other (throat cancer) Mother Cancer Father lung; colon; spinal cancer Colon Cancer Father Alcohol/Drug Father other (lung cancer) Father Heart disease Sister Allergies Maternal Grandmother Emphysema Maternal Grandfather Arthritis Paternal Grandmother Breast Cancer Paternal Grandmother None Sister None Sister HOME MEDICATIONS: omeprazole (PRILOSEC) 20 mg capsule Take 1 capsule by mouth two times a day. 1/2 hr before meal., can empty the capsule into food benzonatate (TESSALON PERLES) 100 mg capsule Take 1 capsule by mouth three times daily as needed. cyanocobalamin 1,000 mcg/mL Inject 1 mL intramuscularly once every month. folic acid 1 mg tablet Take 1 tablet by mouth once daily. magnesium oxide (MAG-OX) 400 mg (241.3 mg magnesium) tablet Take 1 tablet by mouth twice daily. ferrous sulfate 325 mg (65 mg iron) tablet Take 1 tablet by mouth twice daily with meals. Medications Administered by Referring Facility: 3 units PRBCs total 4L IVF fentanyl @75mcg/hr IV Vitamin K 10mg IV Multiple K+ riders Magnesium 2gm IV Vancomycin IV Zosyn IV Rocuronium IV OBJECTIVE: Recent Labs, Diagnostics AN (more content not included)...[facility]01-31-2025 History of Present illness Narrative* Lorraine Bernardo II, MD - 06/13/2024 10:41 PM EST Images from the original note were not included. Critical Care Transport Note Patient Name: Kenyatta Carrillo Service Date: June 13, 2024 Referring Facility: [facility] Accepting Facility: [facility] SUBJECTIVE/CHIEF COMPLAINT: AMS- unable to obtain REASON FOR TRANSPORT: Higher level of critical care services unavailable at sending facility History of Present Illness: The following history is what was known to CCT team at time of given care and summarized through review of available medical records, patient/family interview and from referring physician and nursing report. Kenyatta Carrillo is a 63 year old female with a past medical history significant for ETOH dependenceand bipolar disorder. She presented to [facility] for evaluation of AMS and GIB. Her home health nurse came to her house and found her covered in feces and blood with AMS. She was brought to the [facility] ED and found to have a UTI and PNA. While in the ED, the pt multiple episodes of dark red blood y stools and coffee ground emesis. BP 70/30's, lactate 8.6, Hgb 8 with repeat Hgb 6.8, INR 5, K+ 2.4, Mg 0.9. She was given a total of 3 units PRBCs and 4L IVF. She was intubated for airway protection and started on fentanyl. At this time, the physician managing the patient requested transfer to [facility] for tertiary and/or quaternary services unavailable at the referring facility. Patient condition at time of exam was: Acutely ill and critically ill. Due to the unique circumstances of the patient, it was d etermined that this was the closest, most appropriate facility by referring physician. The physician managing the patient requested the [facility] Critical Care Transport Team transport and treat the patient for the purpose of tertiary care, evaluation, and management of her acute condition(s). Air medical transport was requested to reduce the [id number] time but declined for inclement weather. ROS: Could not obtain due to patient's mental status/critical illness PAST MEDICAL HISTORY: PAST MEDICAL HISTORY Diagnosis Date Alcohol dependence (HCC) Bipolar 1 disorder, depressed (HCC) 80s Colon polyps 07/31/2001 TVA Eating disorder Endometriosis, site unspecified Endometriosis High blood sugar Knee pain Moderate dysplasia of cervix 80's Osteopenia 05/14/2011 PAST SURGICAL HISTORY: PAST SURGICAL HISTORY Procedure Laterality Date CAUTERY CERVIX CRYOCAUTERY INITIAL/REPEAT 1979's COLONOSCOPY 08/05/2002 no polyp COLONOSCOPY & POLYPECTOMY 07/31/2001 TVA removed COLONOSCOPY FLX DX W/COLLJ SPEC WHEN PFRMD 07/22/2014 Colonoscopy ESOPHAGOGASTRODUODENOSCOPY TRANSORAL DIAGNOSTIC 07/22/2014 EGD HYSTERECTOMY HX 2001 LAVH/BSO KNEE LEFT OP SURGERY 3 surgeries KNEE RIGHT OP SURGERY 5 knee surgeies - last being TKA LAPS ABD PRTM&OMENTUM DX W/WO SPEC BR/WA SPX Laparoscopy 8-10 of them for endometriosis PAST SURGICAL HISTORY OF 2004 left wrist surgery PAST SURGICAL HISTORY OF Right 2016 ORIF right hip PAST SURGICAL HISTORY OF Right 11/2020 elbow fracture SHOULDER ARTHROSCOPY/SURGERY ALLERGIES: Amoxil [Amoxicillin] SOCIAL HISTORY: Social History Tobacco Use Smoking status: Former Smokeless tobacco: Never Tobacco comments: quit in 2018 Vaping Use Vaping status: Never Used Substance Use Topics Alcohol use: Yes Drug use: No FAMILY HISTORY: FAMILY HISTORY Problem Relation Age of Onset Diabetes Mother Emphysema Mother COPD Mother Cancer Mother throat and met to lung and brain Alcohol/Drug Mother Stroke Mother Heart disease Mother other (lung cancer) Mother other (throat cancer) Mother Cancer Father lung; colon; spinal cancer Colon Cancer Father Alcohol/Drug Father other (lung cancer) Father Heart disease Sister Allergies Maternal Grandmother Emphysema Maternal Grandfather Arthritis Paternal Grandmother Breast Cancer Paternal Grandmother None Sister None Sister HOME MEDICATIONS: omeprazole (PRILOSEC) 20 mg capsule Take 1 capsule by mouth two times a day. 1/2 hr before meal., can empty the capsule into food benzonatate (TESSALON PERLES) 100 mg capsule Take 1 capsule by mouth three times daily as needed. cyanocobalamin 1,000 mcg/mL Inject 1 mL intramuscularly once every month. folic acid 1 mg tablet Take 1 tablet by mouth once daily. magnesium oxide (MAG-OX) 400 mg (241.3 mg magnesium) tablet Take 1 tablet by mouth twice daily. ferrous sulfate 325 mg (65 mg iron) tablet Take 1 tablet by mouth twice daily with meals. Medications Administered by Referring Facility: 3 units PRBCs total 4L IVF fentanyl @75mcg/hr IV Vitamin K 10mg IV Multiple K+ riders Magnesium 2gm IV Vancomycin IV Zosyn IV Rocuronium IV OBJECTIVE: Recent Labs, Diagnostics & Procedure Reports by OSH reviewed as available Referring Facility Labs CBC: WBC- 11.8 HGB- 6.8 HCT- 22.3 PLT- 90 Coags: INR- 5.0 PTT- 51.7 Chemistry: NA- 133 K+- 2.4 CL -85 CO2- 31 BUN- 24 Cr- 2.73 Glucose- 97 Other Pertinent Labs: Lactate 8.6 Magnesium 0.9 AST 85 ALT 26 HS JULIA 33 Diagnostics & Procedure Reports ECG: normal EKG, normal sinus rhythm IMAGING: KUB: nonobstructive bowel gas pattern CXR: left base patchy airspace opacities CT chest/abd/pelvis: Left lung base opacities Severe hepatomegaly and steatosis Calcification of pancreatic head CT head: negative for any acute process Invasive Lines/Devices/Tubes Placed by Referring Facility: Blood and Blood Product Administration Endotracheal Intubation PHYSICAL EXAM: Upon CCT Arrival at Referring Facility Vital Signs: HR 74bpm, BP 70/54 (61)mmHg, RR 22, SpO2 100% Oxygen/Ventilator Settings: AC 100% x22 TV 450 +5 PEEP General appearance: obese, chronically ill, pale, chemically paralyzed. HEENT: normocephalic, PERRL, 2-3mm bilaterally and sluggish. MM pale and dry Respiratory: clear to auscultation bilaterally,no respiratory distress,no rales,no rhonchi,no wheezing. Cardiovascular: peripheral pulses weak and thready, no murmurs, no rubs, no gallops, regular rate and rhythm, bradycardic. Gastrointestinal: ABD largely obese and soft. OG to LIWS with coffee ground emesis draining Genitourinary: Lin Musculoskeletal: chemically paralyzed. No clubbing, cyanosis or edema Skin: pale, cold and dry. Heme/Lymph: OG with coffee ground emesis, incontinent of dark red tarry stools Neurologic: intubated and chemically paralyzed Glascow Coma Score: eye response: none = 1, motor response: none =1, verbal response: none = 1, andGCS Total: 3 and t CRITICAL CARE COURSE Upon bedside arrival at referring facility the patient was assessed and detailed physical exam performed. Initial exam findings as described above. Pt hypotensive 78/56 (63) and pale. OG continued todrain coffee ground secretions. Pt had received rocuronium <60 minutes before CCT arrival and remained chemically paralyzed during exam. Propofol was started by CCT for sedation.The patient was placed on the transport monitor and all transport equipment transitioned in standard fashion. The patient was transferred to the transport cot and transported to the Ambulance and loaded without incident. The patient was medically managed, monitored, and reassessed during transport. Medications Managed & Administered by CCT: 2 units whole blood TXA 1gm IV CaCl- 1gm IV Sodium bicarbonate 2 amps IV Magnesium 2gm IV Fentanyl 75mcg/hr IV Propofol @20mcg/kg/min IV Procedures Performed by CCT: Arterial line Critical Care Transport Blood Product Administration Kenyatta Carrillo requires emergent blood transfusion as indicated by one of the following: Acute blood loss (known or suspected) with hemodynamic instability or other signs of shock with a Hgb either unknown or >7 where control of the hemorrhage source is not able to be obtained. The risks, benefits, and alternatives to blood transfusion have been discussed with the patient or passenger representative who cannot consent due to mental status. Kenyatta Carrillo requires O+ WHOLE BLOOD. The indication being treatment of anemia . The provider at the receiving facility was notified that the patient received O+ whole blood. Patient verified: yes Procedure/Site verified: Yes Physician Notified: Dr. Tova Abad, SVETLANA.QUARTER BACKER ASSESSMENT/PLAN: Upper and lower GI bleed Multisystem organ failure Metabolic encephalopathy Anemia secondary to blood loss Plan: - continue to monitor H+H and administer PRBCs for Hgb <7 - titrate vasopressors for MAP >60 - continue to monitor ABG and wean vent settings as able - f/u blood and urine cultures- abx vancomycin and zosyn for UTI/ PNA - lactic acidosis- continue to trend lactate - GI consult ?EGD - continue to monitor electrolytes and replete as needed. Pt with significant hypokalemia despite K+ administration The transport was completed without significant incident or change in the patient's status. The patient was transported to by [facility]) for tertiary and/or quaternary evaluation and managementof her Emergent and Critical Medical condition(s). Upon arrival to the receiving facility, a [id number] report was given to bedside staff. Patient care was transferred. The patient condition was Acutely Ill at the time of transfer. Vital Signs at time care transferred to the receiving facility unit: HR 71bpm, BP 113/67 (82) mmHg, RR 18, SpO2 100% ETCO2 21 on above vent settings SPECIAL EQUIPMENT: None MODE OF TRANSPORT: [facility]) CRITICAL CARE TIME:I personally performed 90 minutes of critical care time exclusive of separately billable procedures, ambulance charges and treating other patients. This was necessary to treat or prevent further deterioration of the following condition(s): Hypotension Cardiac Arrest which the patient had and/or had a high probability of suddenly developing. SIGNATURE: Chidi Abad APRN.[facility] Acute Care Nurse Practitioner [facility] Critical Care Transport Team I, Lorraine Bernardo II, MD, was notified of and approve the order for transfusion of blood products for Kenyatta Carrillo. Lorraine Bernardo II, MD Board Finisher, Critical Care Transport documented in this encounterKindred Healthcare01-31-2025 Telephone encounter Note * Telephone Encounter - Naye Sheets MD - 06/13/2024 5:12 PM EST noted [facility]01-31-2025 Miscellaneous Notes* Telephone Encounter - Naye Sheets MD - 06/13/2024 5:12 PM EST noted * Telephone Encounter - Dianne Caba MSW - 06/13/2024 4:40 PM EST Sw spoke with [facility] and was told patient has been pink slipped and is at [facility]. * Telephone Encounter - Naye Sheets MD - 06/13/2024 4:29 PM EST Can we try below. See message from Dianne and KAYLEN * Telephone Encounter - Dianne Caba MSW - 06/13/2024 4:25 PM EST Do you feel like placing a call to [place] [employer] could assist in getting patient to go to hospital to be checked out? * Telephone Encounter - Naye Sheets MD - 06/13/2024 4:17 PM EST Agree with APS. Do we need to do anything more. * Telephone Encounter - Zeinab Oliva RN - 06/13/2024 3:38 PM EST Deborah with [facility] is calling for health and safety concern for patient. Care service went to the home of patient and found the patient covered in blood and feces from head to toe. patient waslicking feces off of her fingers, patient has dried blood and feces around mouth. While care service was there patient vomited up feces and blood. Care service states that patient is talking to people that are not there and patient is stating she sees them sitting or standing in places. and servicecalled 911 and patient declined to let them in or transport and APS was notified. At this point patient is still at the home alone at this time. * Telephone Encounter - Neelam Trimble MA - 06/13/2024 1:17 PM EST Called patient twice with no answer. First time someone picked up and hung up. Second time went to [employer]. Left message advising return call. Neelam Trimble MA * Telephone Encounter - Naye Sheets MD - 06/13/2024 12:10 PM EST Agree. Let patient know I recommend er. * Telephone Encounter - Dianne Caba MSW - 06/13/2024 11:05 AM EST José Miguel, [employer] left this message in regards to concerns about patient from assisted living home director agency [facility]. Aide noted that they called 911 for patient as patient was having a hard time staying awake and seemed disoriented. Patient declined going to the hospital. José Miguel, noted that she is required to let Dr. Sheets know this information. José Miguel also noted that she let HAYDER Sims know this information. Dylan will send note to Dr. Sheets to update him on information. documented in this encounter[facility]01-31-[facility]25 Telephone encounter Note * Telephone Encounter - Dianne Caba MSW - 06/13/2024 4:40 PM EST Dylan spoke with [facility] and was told patient has been pink slipped and is at [facility]. [facility]01-31-2025 Telephone encounter Note* Telephone Encounter - Naye Sheets MD - 06/13/2024 4:29 PM EST Can we try below. See message from Dianne and KAYLEN [facility]01-31-[facility]25 Telephone encounter Note* Telephone Encounter - Dianne Caba MSW - 06/13/2024 4:25 PM EST Do you feel like placing a call to [place] [employer] could assist in getting patient to go to hospital to be checked out? [facility]01-31-2025 Telephone encounter Note* Telephone Encounter - Naye Sheets MD - 06/13/2024 4:17 PM EST Agree with APS. Do we need to do anything more. [facility]01-31-2025 Telephone encounter Note* Telephone Encounter - Zeinab Oliva RN - 06/13/2024 3:38 PM EST Deborah with [facility] is calling for health and safety concern for patient. Care service went to the home of patient and found the patient covered in blood and feces from head to toe. patient waslicking feces off of her fingers, patient has dried blood and feces around mouth. While care service was there patient vomited up feces and blood. Care service states that patient is talking to people that are not there and patient is stating she sees them sitting or standing in places. and servicecalled 911 and patient declined to let them in or transport and APS was notified. At this point patient is still at the home alone at this time. [facility]01-31-[facility] Telephone encounter Note* Telephone Encounter - Neelam Trimble MA - 06/13/2024 1:17 PM EST Called patient twice with no answer. First time someone picked up and hung up. Second time went to voicemail. Left message advising return call. Neelam Trimble MA [facility]01-31-2025 Telephone encounter Note* Telephone Encounter - Naye Sheets MD - 06/13/2024 12:10 PM EST Agree. Let patient know I recommend er. [facility]01-31-2025 Telephone encounter Note* Telephone Encounter - Dianne Caba MSW - 06/13/2024 11:05 AM EST [employer] left this message in regards to concerns about patient from assisted living home director agency [facility]. Aide noted that they called 911 for patient as patient was having a hard time staying awake and seemed disoriented. Patient declined going to the hospital. José Miguel, noted that she is required to let Dr. Sheets know this information. José Miguel also noted that she let HAYDER Sims know this information. will send note to Dr. Sheets to update him on information. [facility]01-06-2025 NoteHNO ID: [id number] Author: NAYE SHEETS MD Service: ? Author Type: Physician Type: Progress Notes Filed: 05/19/2024 13:54 Note Text: Patient never checked in.[facility]01-06-2025 History of Present illness Narrative* Naye Sheets MD - 05/19/2024 1:53 PM EST Patient never checked in. documented in this encounterKindred Healthcare12-09-2024 NoteHNO ID: [id number] Author: ANDRY RICHARDSON MA Service: ? Author Type: Finish Production Manager Type: Progress Notes Filed: 04/21/2024 14:50 Note Text: POPULATION HEALTH NAVIGATION OUTREACH Action/FYI Topic Due (Y or N) Comments Medicare Wellness Y PCP Follow up Mammogram Y Colorectal Cancer Screening A1C Dilated Retinal Exam (JOSE) KED (UACR and eGFR) HCC Y Flu Vaccine Y Care Everywhere Reviewed MyChart Activation Updated Appointment Note Reason for Outreach Care Gap/HCC or Scheduling Wellness Visits Care Gaps due: Medicare Annual Wellness Visit Breast Cancer Screening Flu Vaccine Patient Contacted: Unable or unnecessary to reach patient: Left message [employer] message sent Navigation Signature: Andry Richardson MA April 21, 2024 8:49 [facility]12-09-2024 History of Present illness Narrative* Andry Richardson MA - 04/21/2024 8:49 AM EST POPULATION HEALTH NAVIGATION OUTREACH Action/FYI Topic Due (Y or N) Comments Medicare Wellness Y PCP Follow up Mammogram Y Colorectal Cancer Screening A1C Dilated Retinal Exam (JOSE) KED (UACR and eGFR) HCC Y Flu Vaccine Y Care Everywhere Reviewed MyChart Activation Updated Appointment Note Reason for Outreach Care Gap/HCC or Scheduling Wellness Visits Care Gaps due: Medicare Annual Wellness Visit Breast Cancer Screening Flu Vaccine Patient Contacted: Unable or unnecessary to reach patient: Left message [employer] message sent Navigation Signature: Andry Richardson MA April 21, 2024 8:49 AM documented in this encounterKindred Healthcare12-09-2024 NotePatient Outreach (NETNAV) KENYATTA CARRILLO ([id number]) 1960 F Date Time Provider Department 04/21/24 ANDRY RICHARDSON NETNAV During your visit today, we recorded the following information about you: Andry Richardson MA 04/21/2024 2:50 PM Signed POPULATION HEALTH NAVIGATION OUTREACH Action/FYI Topic Due (Y or N) Comments Medicare Wellness Y PCP Follow up Mammogram Y Colorectal Cancer Screening A1C Dilated Retinal Exam (JOSE) KED (UACR and eGFR) HCC Y Flu Vaccine Y Care Everywhere Reviewed MyChart Activation Updated Appointment Note Reason for Outreach Care Gap/HCC or Scheduling Wellness Visits Care Gaps due: Medicare Annual Wellness Visit Breast Cancer Screening Flu Vaccine Patient Contacted: Unable or unnecessary to reach patient: Left message [employer] message sent Navigation Signature: Andry Richardson MA April 21, 2024 8:49 AM Allergies As of Date: 04/21/2024 Noted Allergy Reaction AMOXIL (AMOXICILLIN) 11/23/2021 2 - Rash Comments: Face and neck Date Reviewed: 10/13/2022 Reviewed by: Neelam Trimble MA - Fully Assessed Reason for Visit: Population Health Navigation Outreach [3910] Cmt: [facility] WORK[facility]Christian CARLOS PCSA Prescriptions as of 04/21/2024 - omeprazole (PRILOSEC) 20 mg capsule Take 1 capsule by mouth two times a day. 1/2 hr before meal., can empty the capsule into food - benzonatate (TESSALON PERLES) 100 mg capsule Take 1 capsule by mouth three times daily as needed. - cyanocobalamin 1,000 mcg/mL Inject 1 mL intramuscularly once every month. - folic acid 1 mg tablet Take 1 tablet by mouth once daily. - magnesium oxide (MAG-OX) 400 mg (241.3 mg magnesium) tablet Take 1 tablet by mouth twice daily. - ferrous sulfate 325 mg (65 mg iron) tablet Take 1 tablet by mouth twice daily with meals. Problem List As Of Date 04/21/2024 Noted Resolved Arthritis of knee [M17.10] 01/03/2011 Urgency of urination [R39.15] 01/13/2011 Female stress incontinence [N39.3] 01/13/2011 Urge incontinence [N39.41] 01/13/2011 Moderate dysplasia of cervix [N87.1] 01/13/2011 Symptomatic menopausal or female climacteric st*01/13/2011 Postmenopausal atrophic vaginitis [N95.2] 01/13/2011 Primary localized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 sites [N80.8] 05/22/2023 Fracture dislocation of hip joint (HCC) [S72.00*05/22/2023 Fracture of neck of femur (HCC) [S72.009A] 06/16/2022 Gastroesophageal reflux disease [K21.9] 05/22/2023 History of alcohol abuse [F10.11] 05/22/2023 History of manic depressive disorder [Z86.59] 06/16/2022 History of osteoarthritis [Z87.39] 05/22/2023 History of disease [Z87.898] 05/22/2023 Hypokalemia [E87.6] 06/16/2022 Insomnia [G47.00] 08/13/2001 Loss of consciousness (HCC) [R40.20] 05/22/2023 Major depressive disorder, recurrent, unspecifi*11/23/2020 Nausea with vomiting [R11.2] 08/13/2001 Osteopenia [M85.80] 05/22/2023 Alcoholism (HCC) [F10.20] 05/22/2023 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] 11/09/2003 Other anxiety states [F41.1] 05/22/2023 Other malaise [R53.81] 11/22/2020 Other physical therapy [CCX3456] 02/02/2003 Pain in right hip [M25.551] 11/23/2020 Polyp of colon [K63.5] 05/22/2023 Tear of medial cartilage or meniscus of knee, c*08/08/2002 Unsteadiness on feet [R26.81] 01/14/2021 Encounter Status:C (more content not included)...[facility] 10-02-2023 NoteHNO ID: [id number] Author: MONICA VALERIO MA Service: ? Author Type: Finish Production Manager Type: Progress Notes Filed: 10/02/2023 14:24 Note Text: POPULATION HEALTH NAVIGATION OUTREACH Action/FYI Contacted patient to schedule [place] Annual Wellness Visit, care gaps and HCCs due. 1st attempt: Left message with my direct number 2nd attempt: My Chart message sent Reason for Outreach Care Gap/HCC or Scheduling Wellness Visits Care Gaps due: Annual Wellness Exam Breast Cancer Screening Colorectal Cancer Screening Advance Directives Patient Contacted: Unable or unnecessary to reach patient: Left message MyChart message sent HCC related Navigation Signature: Monica Valerio MA October 02, 2023 2:24 [facility]05-21-2024 History of Present illness Narrative* Monica Valerio MA - 10/02/2023 2:24 PM EDT POPULATION HEALTH NAVIGATION OUTREACH Action/FYI Contacted patient to schedule [place] Annual Wellness Visit, care gaps and HCCs due. 1st attempt: Left message with my direct number 2nd attempt: My Chart message sent Reason for Outreach Care Gap/HCC or Scheduling Wellness Visits Care Gaps due: Annual Wellness Exam Breast Cancer Screening Colorectal Cancer Screening Advance Directives Patient Contacted: Unable or unnecessary to reach patient: Left message [employer] message sent HCC related Navigation Signature: Monica Valerio MA October 02, 2023 2:24 PM documented in this encounterKindred Healthcare05-21-2024 NotePatient Outreach (NETNAV) KENYATTA CARRILLO ([id number]) 1960 F Date Time Provider Department 10/02/23 MONICA VALERIO During your visit today, we recorded the following information about you: Monica Valerio MA 10/02/2023 2:24 PM Signed POPULATION HEALTH NAVIGATION OUTREACH Action/FYI Contacted patient to schedule [place] Annual Wellness Visit, care gaps and HCCs due. 1st attempt: Left message with my direct number 2nd attempt: My Chart message sent Reason for Outreach Care Gap/HCC or Scheduling Wellness Visits Care Gaps due: Annual Wellness Exam Breast Cancer Screening Colorectal Cancer Screening Advance Directives Patient Contacted: Unable or unnecessary to reach patient: Left message [employer] message sent HCC related Navigation Signature: Monica Valerio MA October 02, 2023 2:24 PM Allergies As of Date: 10/02/2023 Noted Allergy Reaction AMOXIL (AMOXICILLIN) 11/23/2021 2 - Rash Comments: Face and neck Date Reviewed: 10/13/2022 Reviewed by: Neelam Trimble MA - Fully Assessed Reason for Visit: Population Health Navigation Outreach [3910] Cmt: Jeny AWV/HCC and care gaps Prescriptions as of 10/02/2023 - omeprazole (PRILOSEC) 20 mg capsule Take 1 capsule by mouth two times a day. 1/2 hr before meal., can empty the capsule into food - benzonatate (TESSALON PERLES) 100 mg capsule Take 1 capsule by mouth three times daily as needed. - cyanocobalamin 1,000 mcg/mL Inject 1 mL intramuscularly once every month. - folic acid 1 mg tablet Take 1 tablet by mouth once daily. - magnesium oxide (MAG-OX) 400 mg (241.3 mg magnesium) tablet Take 1 tablet by mouth twice daily. - ferrous sulfate 325 mg (65 mg iron) tablet Take 1 tablet by mouth twice daily with meals. Problem List As Of Date 10/02/2023 Noted Resolved Arthritis of knee [M17.10] 01/03/2011 Urgency of urination [R39.15] 01/13/2011 Female stress incontinence [N39.3] 01/13/2011 Urge incontinence [N39.41] 01/13/2011 Moderate dysplasia of cervix [N87.1] 01/13/2011 Symptomatic menopausal or female climacteric st*01/13/2011 Postmenopausal atrophic vaginitis [N95.2] 01/13/2011 Primary localized osteoarthrosis, lower leg [M1*01/31/2011 Abnormality of gait [R26.9] 04/20/2011 Knee pain [M25.569] 04/20/2011 Bipolar 1 disorder, mixed [F31.60] 08/23/2012 Tubular adenoma of colon [D12.6] 08/23/2012 Loose body in elbow joint [M24.029] 11/18/2012 Pain in joint, shoulder region [M25.519] 02/23/2014 Unspecified arthropathy, shoulder region [M19.0*02/23/2014 Fracture of femur, intertrochanteric, right, cl*10/19/2015 06/29/2016 Displaced intertrochanteric fracture of right f*10/19/2015 06/29/2016 Hypothyroidism [E03.9] 06/29/2016 Vitamin D deficiency [E55.9] 06/29/2016 Aseptic necrosis of bone of hip, right (HCC) [M*06/06/2018 06/28/2018 Traumatic arthritis of hip, 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] 06/06/2018 06/28/2018 History of hip replacement, total, right [Z96.6*06/28/2018 Periprosthetic supracondylar fracture of femur *12/27/2018 Periprosthetic fracture around internal prosthe*01/24/2019 Presence of right artificial knee joint [Z96.65*01/24/2019 Anemia [D64.9] 06/16/2022 Bipolar disorder, current episode depressed, mi*11/23/2020 Chronic constipation [K59.09] 05/22/2023 Dysphagia [R13.10] 05/22/2023 Endometriosis of other specified sites [N80.8] 05/22/2023 Fracture dislocation of hip joint (HCC) [S72.00*05/22/2023 Fracture of neck of femur (HCC) [S72.009A] 06/16/2022 Gastroesophageal reflux disease [K21.9] 05/22/2023 History of alcohol abuse [F10.11] 05/22/2023 History of manic depressive disorder [Z86.59] 06/16/2022 History of osteoarthritis [Z87.39] 05/22/2023 History of disease [Z87.898] 05/22/2023 Hypokalemia [E87.6] 06/16/2022 Insomnia [G47.00] 08/13/2001 Loss of consciousness (HCC) [R40.20] 05/22/2023 Major depressive disorder, recurrent, unspecifi*11/23/2020 Nausea with vomiting [R11.2] 08/13/2001 Osteopenia [M85.80] 05/22/2023 Alcoholism (HCC) [F10.20] 05/22/2023 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] 11/09/2003 Other anxiety states [F41.1] 05/22/2023 Other malaise [R53.81] 11/22/2020 Other physical therapy [DSB9781] 02/02/2003 Pain in right hip [M25.551] 11/23/2020 Polyp of colon [K63.5] 05/22/2023 Tear of medial cartilage or meniscus of knee, c*08/08/2002 Unsteadiness on feet [R26.81] 01/14/2021 Encounter Status:Closed by MONICA VALERIO on 10/02/23[facility] 09-21-2023 Telephone encounter Note* Telephone Encounter - Naye Sheets MD - 09/21/2023 2:14 PM EDT I can sign [facility]05-10-2024 Miscellaneous Notes* Telephone Encounter - Naye Sheets MD - 09/21/2023 2:14 PM EDT I can sign * Telephone Encounter - Shanna Sheldon RN - 09/21/2023 1:45 PM EDT Wayne Birch with [facility] Agency on Aging calling about patient to verify certain information.. States he was referred by APS due to patient's personal and environmental decline, to complete a Passport Waiver Evaluation. Patient produced a bottle of alcohol that she had been drinking, to Wayne during his visit. Wayne states patient was not able to answer all of his questions. Wayne reports he was able to verify one prescription bottle of Omeprazole for patient at her home, which is listed on her medication list. Wayne would like to fax over a Level of Care to Dr. Sheets to review and sign, if agreeable. Patient has canceled and/or has not shown for multiple appointments over the past year. Last OV was acute visit on 10/13/22 for bronchitis. If PCP not agreeable to signing Level of Care, please call Wayne with update: [phone]. Shanna Sheldon RN documented in this encounterKindred Healthcare05-10-2024 Telephone encounter Note * Telephone Encounter - Shanna Sheldon RN - 09/21/2023 1:45 PM EDT Wayne Birch with [facility] Agency on Aging calling about patient to verify certain information.. States he was referred by APS due to patient's personal and environmental decline, to complete a Passport Waiver Evaluation. Patient produced a bottle of alcohol that she had been drinking, to Wayne during his visit. Wayne states patient was not able to answer all of his questions. Wayne reports he was able to verify one prescription bottle of Omeprazole for patient at her home, which is listed on her medication list. Wayne would like to fax over a Level of Care to Dr. Sheets to review and sign, if agreeable. Patient has canceled and/or has not shown for multiple appointments over the past year. Last OV was acute visit on 10/13/22 for bronchitis. If PCP not agreeable to signing Level of Care, please call Wayne with update: [phone]. Shanna Sheldon RN [facility]11-07-2023 Miscellaneous Notes* Telephone Encounter - Fay Geronimo RN - 03/20/2023 4:06 PM EST Notified patient that lab orders have been placed. Fay Geronimo RN * Telephone Encounter - Vicente Wilson - 03/19/2023 6:29 PM EST Left message to return call to office. Vicente Wilson * Telephone Encounter - Aleah Zuniga PA-C - 03/19/2023 4:40 PM EST Telephone on 03/19/23 MAGNESIUM BLD CBC COMP METABOLIC PANEL VITAMIN D [address] PA-C * Telephone Encounter - Fay Geronimo RN - 03/19/2023 10:59 AM EST Patient calls to ask if she could have orders placed prior to her appointment on 03/28/[address] Sheets. Patient reports she has been more tired and fatigued lately and would like to have labs to review with provider at appointment. Patient would like to come in sometime this week to have completed. Fay Geronimo RN documented in this encounterKindred Healthcare10-20-2023 Miscellaneous Notes* Telephone Encounter - Kimberly Sanchez RN - 03/02/2023 8:56 AM EDT Date of last office: 10/13/2022 Date of next office visit: None Requested Prescriptions Pending Prescriptions Disp Refills omeprazole (PRILOSEC) 20 mg capsule 60 capsule 11 Sig: Take 1 capsule by mouth two times a day. 1/2 hr before meal., can empty the capsule into food Date of Last Labs: 08/09/2022 Please advise. Thank you. Kimberly Sanchez RN. documented in this encounterKindred Healthcare06-28-2023 History of Present illness Narrative* Marya Garg LPN - 11/08/2022 3:01 PM EDT Patient presents for B-12 injection. Denies any problems at this time. Patient instructed on any SEof medication, verbalized understanding and agreed to proceed with treatment. Tolerated injection well. Marya Garg LPN documented in this encounterKindred Healthcare06-08-2023 Discharge summary Author Jesus Varghese [facility] October 19, 2022 5:44pm Note Date/Time October 19, 2022 5:44p [facility] [address] [place] [address]. [address] [place] [address] / REHABILITATION SERVICES DISCHARGE SUMMARY MR#: [id number] Acct: [id number] Name: KENYATTA CARRILLO Rep #: [id number] : 1960 62 From: Jesus Varghese DPT, OCS, CSCS Referring Dr.: Dr. Leonard Weiner MD Status: REG RCR Insurance: [facility] *IN NETWORK [facility] COMM[facility]AN KENYATTA CARRILLO was seen in my office for initial evaluation on 07/14/22. The following Plan of Care was established for this patient: Initial Frequency: 2x /Week Initial Duration: 4-6 Weeks Patient/Client Instruction: Educate patient on: Condition, Risk Factors For the Purpose of:: To increase ROM, To improve nutrient delivery to tissue, Toimprove muscle performance and motor function, To increase tolerance to activity/condition/position, To improve balance, To improve safety with gait Therapeutic Exercise to Include: Strength training, Balance training, Flexibiltytraining, Gait and locomotor training, Passive ROM, Active ROM For the Purpose of:: To decrease pain, To increase ROM, To improve nutrient delivery to tissue, To improve muscle performance and motor function, To increase tolerance to activity/condition/position, To improve ability of physical actions for home/community/work/leisure, To improve gait and locomotor functions This patient was last seen in our office 08/31/22. Pertinent comments regardingtheir Physical therapy will appear below: Pt seen 8 visits of POC but had a hard time attending during her full POC. She no showed for her last two visits. At this point, as it has been over 6 weeks ,I will discontinue her from my care. At this point I will be discontinuing this patient from physical therapy. I would be happy to see this patient again in the future if found appropriate by the physician. Thank you! Jesus Varghese, TROY, OCS, CSCS Balance/Gait/Functional tests - Balance/Special Test Scores Functional Gait Assessment Score: 14 % Disability: 53.3400 Lower Extremity Functional Score: 23 TUG Test Time Seconds: 25 Tug Test: <20 sec.=mostly independent <Electronically signed by Jesus Varghese DPT, PRASANTH, CSCS> 10/19/22 [id number] CC: Dr. Leonard Weiner MD; Naye Sheets ~ [employer] Signed [facility] Work Phone: 1(668) 481-874806-02-2023 History of Present illness Narrative* Naye Sheets MD - 10/13/2022 9:04 AM EDT Patient presents with: Cough HPI: Patient presents today for office visit for ongoing cough. Got sick back in mid-August. Started with cough, chest congestion, labored breathing and fever. Was seen at a walk-in clinic in [place] at the time and was told possible walking pneumonia. No crxdone. Abx completed. Was on zithromax. Did have a negative home covid. Since August symptoms have gotten better but cough is still present. No congestion now but chest hurts from time to time. Did have a sore throat. Breathing is improving. No ear pain. No sinus congestion. Cough is dry. No nausea or vomiting or diarrhea. No swelling. No chest pain currently. No heartburn that is new. MEDICATIONS: Current Outpatient Medications Medication Sig cyanocobalamin 1,000 mcg/mL Inject 1 mL intramuscularly once every month. folic acid 1 mg tablet Take 1 tablet by mouth once daily. magnesium oxide (MAG-OX) 400 mg (241.3 mg magnesium) tablet Take 1 tablet by mouth twice daily. ferrous sulfate 325 mg (65 mg iron) tablet Take 1 tablet by mouth twice daily with meals. omeprazole (PRILOSEC) 20 mg capsule Take 1 capsule by mouth twice daily. 1/2 hr before meal., can empty the capsule into food Current Facility-Administered Medications Medication Dose Route Frequency cyanocobalamin 1,000 mcg injection 1,000 mcg INTRAMUSCULAR q 4 WEEKS ALLERGIES: ALLERGIES Allergen Reactions Amoxil [Amoxicillin] Rash Face and neck PAST MEDICAL HISTORY Diagnosis Date Alcohol dependence (HCC) Bipolar 1 disorder, depressed (HCC) 80s Colon polyps 07/31/2001 TVA Eating disorder Endometriosis, site unspecified Endometriosis High blood sugar Knee pain Moderate dysplasia of cervix 80's Osteopenia 05/14/2011 PAST SURGICAL HISTORY Procedure Laterality Date CAUTERY CERVIX CRYOCAUTERY INITIAL/REPEAT 1979's COLONOSCOPY 08/05/2002 no polyp COLONOSCOPY & POLYPECTOMY 07/31/2001 TVA removed COLONOSCOPY FLX DX W/COLLJ SPEC WHEN PFRMD 07/22/2014 Colonoscopy ESOPHAGOGASTRODUODENOSCOPY TRANSORAL DIAGNOSTIC 07/22/2014 EGD HYSTERECTOMY HX 2002 LAVH/BSO KNEE LEFT OP SURGERY 3 surgeries KNEE RIGHT OP SURGERY 5 knee surgeies - last being TKA LAPS ABD PRTM&OMENTUM DX W/WO SPEC BR/WA SPX Laparoscopy 8-10 of them for endometriosis PAST SURGICAL HISTORY OF 2005 left wrist surgery PAST SURGICAL HISTORY OF Right 2016 ORIF right hip PAST SURGICAL HISTORY OF Right 11/2020 elbow fracture SHOULDER ARTHROSCOPY/SURGERY FAMILY HISTORY Problem Relation Age of Onset Diabetes Mother Emphysema Mother COPD Mother Cancer Mother throat and met to lung and brain Alcohol/Drug Mother Stroke Mother Heart disease Mother other (lung cancer) Mother other (throat cancer) Mother Cancer Father lung; colon; spinal cancer Colon Cancer Father Alcohol/Drug Father other (lung cancer) Father Heart disease Sister Allergies Maternal Grandmother Emphysema Maternal Grandfather Arthritis Paternal Grandmother Breast Cancer Paternal Grandmother None Sister None Sister Social History Tobacco Use Smoking status: Former Smokeless tobacco: Never Tobacco comments: quit in 2018 Vaping Use Vaping Use: Never used Substance Use Topics Alcohol use: Yes Drug use: No Reviewed current medications, allergies, past medical history, surgical history, family history andsocial history today. REVIEW OF SYSTEMS Still with shoulder pain. Recommended she see her ortho All other reviewed and negative other than HPI. HEALTH MAINTENANCE: Reviewed health maintenance issues today and recommended the following in detail. HPV TESTING Never done MAMMOGRAM due on 05/28/2015 PAP TESTING due on 01/14/2016 COLORECTAL CANCER SCREENING -reminded to set up VITALS: BP 120/80 Pulse 87 Temp 36.9 C (98.5 F) Ht 180.3 cm (5' 11) Wt 87.2 kg (192 lb 3.2 oz) SpO2 97% BMI 26.81 kg/m Last 4 Encounter Wt Readings: Date: Wt: 08/09/2022 84.4 kg (186 lb) 04/28/2022 87.3 kg (192 lb 6.4 oz) 04/24/2022 86.2 kg (190 lb) 11/23/2021 79.8 kg (176 lb) PHYSICAL EXAMINATION: General appearance: Well appearing, alert, in no acute distress, well-hydrated, well nourished. Skin: Skin color, texture, turgor normal, no suspicious rashes or lesions Head: Normocephalic, no masses, lesions, tenderness or abnormalities Eyes: Anicteric sclera. Pupils are equally round and reactive to light. Extraocular movements are intact. Ears: External ears normal, canals clear Nose/Sinuses: Nares normal, septum midline, mucosa normal, no drainage or sinus tenderness Oropharynx: Lips, mucosa, and tongue normal, teeth and gums normal, oropharynx normal Neck: Supple, no adenopath Lungs: Lungs clear to auscultation. No wheezing, rhonchi, rales Heart: RRR without murmur, gallop, or rubs. No ectopy Abdomen: Normal abdominal exam, Abdomen soft, non-tender. Bowel sounds normal. No masses, organomegaly ASSESSMENT/PLAN: 1. Bronchitis - ICD9: 490, ICD10: J40 (primary diagnosis) - Discussed risks and benefits of new medication with the patient. Advised them to call if any sideeffects or questions. Red flags for re-assessment reviewed with patient in detail. Call if symptoms worsen at all or if not better in one to two weeks Reviewed diagnosis and treatment options in detail. Questions were answered. Patient expressed understanding of treatment plan. - XR CHEST 2V FRONTAL/LAT - BENZONATATE 100 MG CAPSULE - DOXYCYCLINE MONOHYDRATE 100 MG TABLET 2. Screening for malignant neoplasm of cervix - ICD9: V76.2, ICD10: Z12.4 - Follow up for annual exam in one year. - CONSULT TO GYNECOLOGY 3. Encounter for screening mammogram for malignant neoplasm of breast - ICD9: V76.12, ICD10: Z12.31 - Follow up for annual exam in one year. - [facility] SCREENING Naye Sheets MD documented in this encounterKindred Healthcare04-11-2023 NoteHNO ID: [id number] Author: ÁLVARO Sousa Service: Radiology Author Type: Technologist Type: Progress Notes Filed: 08/22/2022 4:14 PM Note Text: Radiology Service Progress Note PATIENT NAME: Kenyatta Carrillo DATE OF SERVICE: August 22, 2022 TIME: 4:14 PM PATIENT IDENTITY VERIFICATION COMPLETED USING TWO (2) IDENTIFIERS: Name and Date of confirmed by patient verbally and Name and Date of confirmed by identification band. FALL SCREENING: Has the patient had 2 falls in the last year or 1 fall with injury or currently using an Ambulatory Assistive Device (Walker, Cane, Wheelchair, Crutches, etc.)? Yes, Patient High Risk for Falls What interventions were put in place to prevent falls during this visit? Instructed Patient to Call for Help if Needed, Offered Assistance with Transfers/Clothing, Instructed Patient to Remain Seated (Not on Exam Table) Until Exam, and Increased Observations by Caregivers PATIENT GENDER DATA: Female. status: : No status: N/A PATIENT RELEVANT IMPLANT DATA REVIEWED: Not Applicable RADIOLOGY DEPARTMENT: Ultrasound PERIPHERAL IV DATA: Not applicable SIGNED BY: ÁLVARO Sousa August 22, 2022 4:14 [facility]MPaul[facility] [id number] History of Present illness Narrative* ÁLVARO Sousa - 08/22/2022 3:30 PM EDT Radiology Service Progress Note PATIENT NAME: Kenyatta Carrillo DATE OF SERVICE: August 22, 2022 TIME: 4:14 PM PATIENT IDENTITY VERIFICATION COMPLETED USING TWO (2) IDENTIFIERS: Name and Date of confirmedby patient verbally and Name and Date of confirmed by identification band. FALL SCREENING: Has the patient had 2 falls in the last year or 1 fall with injury or currently using an Ambulatory Assistive Device (Walker, Cane, Wheelchair, Crutches, etc.)? Yes, Patient High Riskfor Falls What interventions were put in place to prevent falls during this visit? Instructed Patient to Callfor Help if Needed, Offered Assistance with Transfers/Clothing, Instructed Patient to Remain Seated(Not on Exam Table) Until Exam, and Increased Observations by Caregivers PATIENT GENDER DATA: Female. status: : No status: N/A PATIENT RELEVANT IMPLANT DATA REVIEWED: Not Applicable RADIOLOGY DEPARTMENT: Ultrasound PERIPHERAL IV DATA: Not applicable SIGNED BY: ÁLVARO Sousa August 22, 2022 4:14 PM documented in this encounterKindred Healthcare04-03-2023 Miscellaneous Notes* Telephone Encounter - Que Warner RN - 08/14/2022 11:53 AM EDT Called and left a detailed voicemail notifying patient of providers message. Hospital phone number was left in case patient had any questions. Pt has US set up on 08/22/22. Que Warner RN * Telephone Encounter - Naye Sheets MD - 08/14/2022 8:51 AM EDT Xray of the elbow is ok. Get the ultasound that was ordered. If has increased swelling or pain in shoulder or elbow, let me know documented in this encounterKindred Healthcare03-31-2023 History of Present illness Narrative* Sonia Bernard RT(R) - 08/11/2022 10:40 AM EDT Radiology Service Progress Note PATIENT NAME: Kenyatta Carrillo DATE OF SERVICE: August 11, 2022 TIME: 10:40 AM PATIENT IDENTITY VERIFICATION COMPLETED USING TWO (2) IDENTIFIERS: Name and Date of confirmedby patient verbally. FALL SCREENING: Has the patient had 2 falls in the last year or 1 fall with injury or currently using an Ambulatory Assistive Device (Walker, Cane, Wheelchair, Crutches, etc.)? Yes, Patient High Riskfor Falls What interventions were put in place to prevent falls during this visit? Instructed Patient to Callfor Help if Needed, Offered Assistance with Transfers/Clothing, and Increased Observations by Caregivers PATIENT GENDER DATA: Female. status: : No status: NO. PATIENT RELEVANT IMPLANT DATA REVIEWED: Yes RADIOLOGY DEPARTMENT: General X-ray: Exam(s) Completed: Upper Extremity X- Ray(s): Shoulder, AP / TRUE AP / AXILLARY left and Elbow, left PERIPHERAL IV DATA: Not applicable SIGNED BY: RT Leif(R) August 11, 2022 10:40 AM documented in this encounterKindred Healthcare03-30-2023 Miscellaneous Notes* Telephone Encounter - Aleah Holliday RN - 08/10/2022 1:45 PM EDT Patient returned call to let office know she received the messages and plans to come in tomorrow todo the xrays. * Telephone Encounter - Neelam Trimble - 08/10/2022 1:18 PM EDT Left detailed VM for patient explaining to her that Dr. Sheets placed two x-ray orders for her specifically for her elbow and shoulder. Advised her to walk-in to have those done at her convenience. Told to call back and let us know she received the message. Neelam Trimble * Telephone Encounter - Naye Sheets MD - 08/10/2022 12:14 PM EDT Lets do dedicated xrays of both elbow and shoulder. * Telephone Encounter - Que Warner RN - 08/10/2022 12:07 PM EDT Pt called and is notified of providers results and instructions. Pt voices understanding. She states that her shoulder and elbow are sore all the time and yesterday after she got home she couldn't life her arm at all. Please call Pt and advise. Que Warner RN * Telephone Encounter - Naye Sheets MD - 08/10/2022 9:21 AM EDT Labs show magnesium is low and sugar is up. Xray shows some fluid around her elbow. Xray the elbow. Also shows some issues with what may be herrotator cuff in her shoulder. How is her shoulder and elbow? Make sure not missing any mag. Take an extra mag dose today and tomorrow. Recheck mag and a1c in two weeks. documented in this encounterKindred Healthcare03-29-2023 History of Present illness Narrative* Maria E Liao RT(R) - 08/09/2022 10:40 AM EDT Radiology Service Progress Note PATIENT NAME: Kenyatta Carrillo DATE OF SERVICE: August 09, 2022 TIME: 10:37 AM PATIENT IDENTITY VERIFICATION COMPLETED USING TWO (2) IDENTIFIERS: Name and Date of confirmedby patient verbally. FALL SCREENING: Has the patient had 2 falls in the last year or 1 fall with injury or currently using an Ambulatory Assistive Device (Walker, Cane, Wheelchair, Crutches, etc.)? Yes, Patient High Riskfor Falls What interventions were put in place to prevent falls during this visit? Offered Assistance with Transfers/Clothing and Instructed Patient to Remain Seated (Not on Exam Table) Until Exam PATIENT GENDER DATA: Female. status: : No status: NO. PATIENT RELEVANT IMPLANT DATA REVIEWED: Not Applicable RADIOLOGY DEPARTMENT: General X-ray: Exam(s) Completed: Upper Extremity X- Ray(s): Humerus, left PERIPHERAL IV DATA: Not applicable SIGNED BY: RT Zak(R) August 09, 2022 10:37 AM documented in this encounterKindred Healthcare03-29-2023 History of Present illness Narrative* Naye Sheets MD - 08/09/2022 9:16 AM EDT Patient presents with: Hospital F/U HPI: Patient presents today for office visit for hospital follow up. Admitted in to [facility] 06/10/22. Discharged on 06/16/22. Left femoral fracture due to mechanical fall. Currently doing PT twice a week. Ambulates with a rollator walker. No pain today. Has more discomfort when going from sitting to standing. Has sore left arm. Notices a lump. See ortho soon Had to be given 4 units of blood-2 preop and 2 post op. They were to do egd and colonoscopy. She did not have them done. Suggested we need to make sure she gets it looked at. Had a low potassium. Tsh was borderline elevated off of synthroid. She was also seen by Meenakshi previously and found to be b12 deficient and folate deficient. It appears she only came in for one b12 shot but is taking folic acid. Admitted in the hospital to significant binge drinking as well. Noticed a lump on her arm since she fell. Can use the arm. She is unsure if has changed size or shape. Is tender. Not hot or red. No chest pain or shortness of breath. No edema. No pain in calves. No changes in the bowels. No dysphagia that is new. MEDICATIONS: Current Outpatient Medications Medication Sig folic acid 1 mg tablet Take 1 tablet by mouth once daily. magnesium oxide (MAG-OX) 400 mg (241.3 mg magnesium) tablet Take 1 tablet by mouth twice daily. ferrous sulfate 325 mg (65 mg iron) tablet Take 1 tablet by mouth twice daily with meals. omeprazole (PRILOSEC) 20 mg capsule Take 1 capsule by mouth twice daily. 1/2 hr before meal., can empty the capsule into food Current Facility-Administered Medications Medication Dose Route Frequency cyanocobalamin 1,000 mcg injection 1,000 mcg INTRAMUSCULAR q 4 WEEKS ALLERGIES: ALLERGIES Allergen Reactions Amoxil [Amoxicillin] Rash Face and neck PAST MEDICAL HISTORY Diagnosis Date Alcohol dependence (HCC) Bipolar 1 disorder, depressed (HCC) 80s Colon polyps 07/31/2001 TVA Eating disorder Endometriosis, site unspecified Endometriosis High blood sugar Knee pain Moderate dysplasia of cervix 80's Osteopenia 05/14/2011 PAST SURGICAL HISTORY Procedure Laterality Date CAUTERY CERVIX CRYOCAUTERY INITIAL/REPEAT 1979' COLONOSCOPY 08/05/2002 no polyp COLONOSCOPY & POLYPECTOMY 07/31/2001 TVA removed COLONOSCOPY FLX DX W/COLLJ SPEC WHEN PFRMD 07/22/2014 Colonoscopy ESOPHAGOGASTRODUODENOSCOPY TRANSORAL DIAGNOSTIC 07/22/2014 EGD HYSTERECTOMY HX 2001 LAVH/BSO KNEE LEFT OP SURGERY 3 surgeries KNEE RIGHT OP SURGERY 5 knee surgeies - last being TKA LAPS ABD PRTM&OMENTUM DX W/WO SPEC BR/WA SPX Laparoscopy 8-10 of them for endometriosis PAST SURGICAL HISTORY OF 2004 left wrist surgery PAST SURGICAL HISTORY OF Right 2015 ORIF right hip PAST SURGICAL HISTORY OF Right 11/2020 elbow fracture SHOULDER ARTHROSCOPY/SURGERY FAMILY HISTORY Problem Relation Age of Onset Diabetes Mother Emphysema Mother COPD Mother Cancer Mother throat and met to lung and brain Alcohol/Drug Mother Stroke Mother Heart disease Mother other (lung cancer) Mother other (throat cancer) Mother Cancer Father lung; colon; spinal cancer Colon Cancer Father Alcohol/Drug Father other (lung cancer) Father Heart disease Sister Allergies Maternal Grandmother Emphysema Maternal Grandfather Arthritis Paternal Grandmother Breast Cancer Paternal Grandmother None Sister None Sister Social History Tobacco Use Smoking status: Former Smokeless tobacco: Never Tobacco comments: quit in 2018 Vaping Use Vaping Use: Never used Substance Use Topics Alcohol use: Yes Drug use: No Reviewed current medications, allergies, past medical history, surgical history, family history andsocial history today. REVIEW OF SYSTEMS All other reviewed and negative other than HPI. HEALTH MAINTENANCE: Reviewed health maintenance issues today and recommended the following in detail. HPV TESTING Never done MAMMOGRAM due on 05/28/2015 PAP TESTING due on 01/14/2016 DTAP,TDAP,TD(2 - Td or Tdap) due on 12/09/2020 SHINGRIX VACCINE(2 of 2) due on 03/01/2022 COVID-19 VACCINE(4 - Booster for Pfizer series) due on 03/01/2022 COLORECTAL CANCER SCREENING due on 03/24/2022 DEPRESSION ASSESSMENT Never done VITALS: BP 120/80 Pulse 120 Ht 180.3 cm (5' 11) Wt 84.4 kg (186 lb) SpO2 97% BMI 25.94 kg/m Last 4 Encounter Wt Readings: Date: Wt: 04/28/2022 87.3 kg (192 lb 6.4 oz) 04/24/2022 86.2 kg (190 lb) 11/23/2021 79.8 kg (176 lb) 11/10/2021 80.7 kg (178 lb) PHYSICAL EXAMINATION: General appearance: Well appearing, alert, in no acute distress, well-hydrated, well nourished. Skin: Skin color, texture, turgor normal, no suspicious rashes or lesions Head: Normocephalic, no masses, lesions, tenderness or abnormalities Lungs: Lungs clear to auscultation. No wheezing, rhonchi, rales Heart: RRR without murmur, gallop, or rubs. No ectopy Abdomen: Normal abdominal exam, Abdomen soft, non-tender. Bowel sounds normal. No masses, organomegaly Extremities: No deformities, edema, skin discoloration, clubbing or cyanosis. Good capillary refill. Musculoskeletal: No joint swelling, deformity, or tenderness, palpable lump on left upper arm. Suspect is soft tissue. Given pain after fall-will work up. Peripheral pulses: Normal Neuro: Negative. ASSESSMENT/PLAN: 1. Vitamin B12 deficiency - ICD9: 266.2, ICD10: E53.8 (primary diagnosis) - given b12 today. Reinstitute b12 shots. Avoid etoh. - CYANOCOBALAMIN (VIT B-12) 1,000 MCG/ML INJECTION SOLUTION - VITAMIN B12 BLOOD 2. Folate deficiency - ICD9: 266.2, ICD10: E53.8 - FOLATE SERUM 3. Iron deficiency anemia, unspecified iron deficiency anemia type - ICD9: 280.9, ICD10: D50.9 - CBC + DIFF - IRON + TIBC Continue iron. Reinforced need to get egd and colonoscopy. 4. Closed fracture of left hip with routine healing, subsequent encounter - ICD9: V54.13, ICD10: S72.002D - per ortho 5. Hypothyroidism, unspecified type - ICD9: 244.9, ICD10: E03.9 Check tsh 6. Hypomagnesemia - ICD9: 275.2, ICD10: E83.42 - BASIC METABOLIC PNL - MAGNESIUM BLD 7. Hypokalemia - ICD9: 276.8, ICD10: E87.6 - BASIC METABOLIC PNL 8. Screening breast examination - ICD9: V76.10, ICD10: Z12.39 - Follow up for annual exam in one year. - [facility] SCREENING Naye Sheets documented in this encounterKindred Healthcare03-27-2023 Miscellaneous Notes* Telephone Encounter - Liseth Lockwood LPN - 08/07/2022 3:18 PM EDT Added to her appointment notes for visit. * Telephone Encounter - Gill Ordoñez - 08/07/2022 3:10 PM EDT Patient is requesting a prescription to renew her handicap placard. Please have completed prior to the patient's office visit with Dr. Sheets on 08/09/22. documented in this encounterKindred Healthcare02-03-[address] [facility] June 16, 2022 4:06pm Note Date/Time June 16, 2022 1 0:40am [facility] Medical Records Department [address] [place] [address] Discharge Summary 06/16/22 1018 MR#: [id number] Acct: [id number] Name: KENYATTA CARRILLO Rep #:[id number] : [id number] 61 From: Tyrone davis MD PCP: Naye Sheets Status:[facility]M [id number] Prov[facility] Date of Admission: 06/10/22 Primary Care Physician: Naye Sheets Consultations 06/10/22 20:09 Consult: Orthopedics Routine Consulting Provider: Leonard Weiner Reason for Consult: left femoral fracture due to mechanical fall EMERGENT Consult: No MD Notified: Yes Date Notified: 06/10/22 Time Notified: 18:50 Method of Notification: Text Reason For Visit: LEFT FEMORAL NECK FRACTURE, HYPOKALEMIA Diagnosis Discharge Diagnosis (1) Fall: Status: Acute Code(s): W19.XXXA - Unspecified fall, initial encounter (2) Left displaced femoral neck fracture: Status: Acute Code(s): S72.002A - Fracture of unspecified part of neck of left femur, initial encounterfor closed fracture (3) Hypokalemia: Status: Acute Code(s): E87.6 - Hypokalemia Plan 1. Acute left intertrochanteric femoral fracture due to mechanical fall status postrepair on 06/11/2022/acute anemia on mixed chronic iron deficiency anemia andanemia of chronic disease ? Continue with pain management ? PT/OT for possible placement to TCU ? She did have 2 units of blood prior to surgery however she is continued to be slightly anemic and yesterday was 6.3 and had to be transfused another 2 units ? Attempting a stool sample to check for blood she states that she is have a colonoscopy in the next week or so in [facility] ?Her serum iron is low and her TIBC was normal with an iron saturation of 6.7% and a ferritin of 16 she was given a dose of IV iron on the can repeat a dose tomorrow 2. Chronic alcohol use/bipolar disorder ? She states that she does binge drink and she had drank about a week prior about half a gallon of alcohol ? Currently not going through withdrawal and serum alcohol level on admission was normal ? She does not take any medications for her bipolar disorder as an outpatient 3. Hypothyroidism ? Stable ? Her TSH is 4.12 and she states that she was taken off of Synthroid by her PCP DVT: Eliquis 2.5 mg p.o. twice daily Medications at Discharge Home Medications pantoprazole 40 mg tablet,delayed release 20 mg PO BID GERD 04/08/19 ferrous sulfate 325 mg (65 mg iron) tablet (FeroSul) 325 mg PO BID Check with primary doctor 06/11/22 apixaban 5 mg tablet (Eliquis) 2.5 mg PO BID #60 tabs 06/16/22 ascorbic acid (vitamin C) 500 mg tablet (Vitamin C) 500 mg PO BID #60 tabs 06/16/22 Hospital Course Operations - (Left hip cephalomedullary nail) Procedures None Summary of Care Provided Minutes Spent on Discharge: 42 Hospital Course: Per HPI: KENYATTA CARRILLO, is a 61 F with a PMH as outlined who presents via the [facility] 06/10/2021 with a complaint of mechanical fall and left hip pain. SHe denied any dizziness, lightheadedness, palpitations, cough, chest pain, nausea, vomiting or diarrhea. Review of systems is otherwise negative. Vitals were BP of 174/79, LA of 85, RR of 18 and temp of 100% on room air. CBC showedHb of 7.8, wbc of 13.6 and platelets of 270. Chemistry showed sodium of 132, potassium of 2.3 and Cr of 1.34. Glucose was 146. Imaging showed acute intertrochanteric fracutre of the proximal left femur. She is being admitted to be managed for? hypokalemia and acute left intertrochanteric hip fracture due tomechanical fall. Hospital Course: 1.? Acute left intertrochanteric femoral fracture due to mechanical fall status postrepair on 06/11/2022/acute anemia on mixed chronic iron deficiency anemia andanemia of chronic disease ? Continue with pain management ? She was denied both rehab and SNF placement ? She did have 2 units of blood prior to surgery however she is continued to be slightly anemic and yesterday was 6.3 and had to be transfused another 2 units ? She did have a stool sample that was negative for blood and today her hemoglobin went up to 9.1 showing stability. She does have a colonoscopy scheduled for this week as an outpatient. In review of her medications she is on iron twice a day but she is also on Protonix so I did add vitamin C to her medications to help assist in absorption. She did have a second stool sample done since surgery and that showed some blood in it but given the stability of her hemoglobin I discussed with her that she would likely be able to follow-up with her outpatient colonoscopy as scheduled. It is possible because of her issues with constipation after surgery while on the pain meds at the second sample with blood in it could be incidental. I discussed with her the plan for discharge today and she expressed understanding of the risk and benefits of going home and is okay with going home today. I discussed with her the reasons to come back to the hospital and she expressed understanding. She has been on Eliquis 2.5 mg p.o. twice daily which she will need to continue for another month, her hemoglobin has been stable while on the anticoagulation. 2.? Chronic alcohol use/bipolar disorder ? She states that she does binge drink and she had drank about a week prior about half a gallon of alcohol ? Currently not going through withdrawal and serum alcohol level on admission was normal ? She does not take any medications for her bipolar disorder as an outpatient 3.? Hypothyroidism ? Stable ? Her TSH is 4.12 and she states that she was taken off of Synthroid by her PCP Physical Exam Narrative General: Alert, Oriented x3, Cooperative, No apparent distress HEENT: Atraumatic, PERRLA, EOMI, Normocephalic Oral: Moist Mucosa Neck: Supple, No JVD Lungs: Diminished, Normal air movement, No rhonchi, No wheeze, No rales Cardiovascular: Regular rate, Regular Rhythm, Normal S1, Normal S2, No murmurs Abdomen: Soft, Non Tender, Non-Distended, No Hepato-splenomegaly Extremities: No edema, Capillary Refill Less than 3 Seconds Skin: No rashes, No breakdown Musculoskeletal: Left hip pain to palpation, dressing intact Neurological: Cranial nerves II-XII grossly intact, Motor Exam 5/5 strength throughout, Sensory exam intact to light touch and pain Psych/Mental Status: Normal Affect, Appropriate Weight / BMI Weight Weight: 178 lb Body Mass Index (BMI) 24.1 ABG / Lab / Microbiology Data Result Diagrams: 06/16/22 06:25 06/15/22 06:50 Laboratory: Laboratory Results - last 24 hr 06/15/22 13:37: Hgb 8.8 L, Hct 27.5 L 06/16/22 06:25: WBC 6.3, RBC 3.21 L, Hgb 9.1 L, Hct 29.9 L, MCV 93.1, MCH 28.3, MCHC 30.4 L D, RDW Std Deviation 66.3 H, RDW Coeff of Angelo 19.4 H, Plt Count 308,MPV 9.0, Immature Gran % (Auto) 1.300 H, Neut % (Auto) 54.9, Lymph % (Auto) 27.8, Meriwether % (Auto) 14.0 H, Eos % (Auto) 1.7, Baso % (Auto) 0.3, Absolute Neuts (auto) 3.5, Absolute Lymphs (auto) 1.75, Nucleated RBC % 0, Differential CommentSCANNED, Hypochromasia 1+, Anisocytosis 1+ Microbiology: Microbiology 06/15/22 17:10 Stool Stool Occult Blood (NOAH) - Final Occult Blood Positive 06/14/22 18:40 Stool Stool Occult Blood (NOAH) - Final D/C Instructions Discharge Diet: No restrictions Call your doctor if you observe: Fever of 101 or Higher, Shortness of breath, Dizziness, Fainting spells, Swelling in the ankles, Chest pain and Increased palpitations (irregular heartbeat) Meaningful Use Info Meaningful Use Diagnoses (Choose all that apply): None applicable Discharge Plan Admission Admit Date/Time: 06/10/22 18:48 Attending Provider: Tyrone Roach Primary Care Provider: Naye Sheets Consulting Providers: Leonard Weiner ; Renetta Recinos ; Jerry Lopez Instructions Additional Instructions / Restrictions: Follow-up with your PCP to obtain a CBC to monitor your hemoglobin as an outpatient. Discharge Orders/Prescriptions Prescriptions: New Eliquis 5 mg Tablet 2.5 mg PO BID Qty: 60 0RF ascorbic acid (vitamin C) [Vitamin C] 500 mg tablet 500 mg PO BID Qty: 60 0RF Rx Instructions: Take with iron Continued pantoprazole 40 MG tablet 20 mg PO BID ferrous sulfate [FeroSul] 325 mg (65 mg iron) tablet 325 mg PO BID Label Comments: take 1 tablet by mouth twice a day with meals Referrals / Follow Up: Leonard Weiner MD [Med Staff - Active Staff] - Within 2 Weeks Naye Sheets [Primary Care Provider] - Within 1 Week Disposition Disposition (needs filled in before D/C Order can be placed): Home Health Service Charges/Coding Visit Charges Inpatient E&M: 29518 Disch Hosp >30min 06/16/22 1606 <Electronically signed by Tyrone Roach MD> Cosigner Signature (if applicable): CC: Dr. Tyrone Roach MD; Naye Sheets~ Signed [facility] Work Phone: 1(380) 206-410902-03-2023 Miscellaneous Notes* Telephone Encounter - Estefany Ferro LPN - 06/16/2022 2:52 PM EST [facility] notified per Dr. Sheets ok to do. * Telephone Encounter - Shanna Sheldon RN - 06/16/2022 2:16 PM EST Jennifer at [facility] calling to state patient is discharging from [facility] today. Pt had a fall and left femurfracture. Dr. Weiner did surgical repair and will be following pt for Ortho orders. [facility] plans to see patient on 06/18/22 if pt agreeable to C. Jennifer asking if PCP will follow patient for orders for alf, PT and OT? Please call Jennifer at [phone]. Thank you. documented in this encounter[facility]02-03-[address] Roach [facility] June 16, 2022 7:18am Note Date/Time June 16, 2022 7 :14am [facility] Medical Records Department [address] [place] [address] Instructions for Home/Discharge Instructions 06/16/22713 MR#: [id number] Acct: [id number] Name: KENYATTA CARRILLO Rep #:[id number] : 1960 61 From: Tyrone davis MD PCP: Naye Sheets Status:ADM IN Discharge Instructions Diet Discharge Diet: No restrictions Activity Discharge Activity: Return to Normal Activity Dressing / Incision Call your doctor if you observe: Fever of 101 or Higher, Shortness of breath, Dizziness, Fainting spells, Swelling in the ankles, Chest pain and Increased palpitations (irregular heartbeat) Follow Up Care Test Results: Test results from this visit will be discussed in further detail at your follow- up appointment, if applicable. Discharge Plan Admission Admit Date/Time: 06/10/22 18:48 Attending Provider: Tyrone Roach Primary Care Provider: Naye Sheets Consulting Providers: Leonard Weiner ; Renetta Recinos ; Jerry Lopez Instructions Additional Instructions / Restrictions: Follow-up with your PCP to obtain a CBC to monitor your hemoglobin as an outpatient. Discharge Orders/Prescriptions Prescriptions: New Eliquis 5 mg Tablet 2.5 mg PO BID Qty: 60 0RF ascorbic acid (vitamin C) [Vitamin C] 500 mg tablet 500 mg PO BID Qty: 60 0RF Rx Instructions: Take with iron Continued pantoprazole 40 MG tablet 20 mg PO BID ferrous sulfate [FeroSul] 325 mg (65 mg iron) tablet 325 mg PO BID Label Comments: take 1 tablet by mouth twice a day with meals Referrals / Follow Up: Leonard Weiner MD [Med Staff - Active Staff] - Within 2 Weeks Naye Sheets [Primary Care Provider] - Within 1 Week Disposition Disposition (needs filled in before D/C Order can be placed): Home Health Service 06/16/22717<Electronically signed by Tyrone Roach MD>Tyrone Roach MD CC: Dr. Renetta Recinos MD; Dr. Jerry Lopez MD; Dr. Leonard Weiner MD; Naye Sheets ~ Signed [facility] Work Phone: 1(684) 317-838302-02-[address] Roach [facility] June 15, 2022 9:45am Note Date/Time June 15, 2022 9 :45am [facility] Medical Records Department [address] [place] [address] Progress Note - Hospitalist 06/15/22 0941 MR#: [id number] Acct: [id number] Name: KENYATTA CARRILLO Rep #:[id number] : 1960 61 From: Tyrone davis MD PCP: Naye Sheets Status:ADM IN [facility] Subjective Subjective No issues overnight, hemoglobin corrected to 9.4 which after 2 units is a slightovercorrection, will recheck 2 PM Objective Data Objective Data Vital Signs: Vital Signs Temp Pulse Resp BP Pulse Ox O2 Del Method 98.8 F 87 16 113/72 100 Room Air 06/15/22 07:53 06/15/22 08:04 06/15/22 07:53 06/15/22 07:53 06/15/22 07:53 06/15/22 07:53 Oxygen Delivery Method Room Air Weight: 178 lb Body Mass Index (BMI) 24.1 Intake & Output: Intake and Output for Last 24 Hours 06/14/22 06/15/22 06/16/22 03:59 03:59 03:59 Intake Total 2953.75 / 2953.75 2350 / 2350 400 / 400 Output Total 775 / 775 1450 / 1450 400 / 400 Balance 2178.75 / 2178.75 900 / 900 0 / 0 Lab / Micro Data Result Diagrams: 06/15/22 06:50 06/15/22 06:50 Labs: Laboratory Results - last 24 hr 06/10/22 20:30: Crossmatch See Detail 06/13/22 16:00: Blood Type O POSITIVE, Antibody Screen NEGATIVE, Crossmatch See Detail 06/15/22 06:50: WBC 7.0, RBC 3.15 L, Hgb 9.4 L, Hct 28.7 L, MCV 91.1, MCH 29.8, MCHC 32.8 D, RDW Std Deviation 64.6 H, RDW Coeff of Angelo 19.9 H, Plt Count 302, MPV 9.3, Immature Gran % (Auto) 1.100 H, Neut % (Auto) 58.5, Lymph % (Auto) 24.2, Meriwether % (Auto) 14.4 H, Eos % (Auto) 1.7, Baso % (Auto) 0.1, Absolute Neuts (auto) 4.1, Absolute Lymphs (auto) 1.69, Nucleated RBC % 0 06/15/22 06:50: Sodium 137, Potassium 5.0, Chloride 108 H, Carbon Dioxide 23.0, Anion Gap 6, BUN 22 H, Creatinine 0.95, Estim Creat Clear Calc 69.95, Est GFR (MDRD) Af Amer 76, Est GFR (MDRD) Non-Af 63, BUN/Creatinine Ratio 23.1 H, Glucose 96, Calcium 8.4 L Micro: Microbiology 06/14/22 18:40 Stool Stool Occult Blood (NOAH) - Final Physical Exam Narrative General: Alert, Oriented x3, Cooperative, No apparent distress HEENT: Atraumatic, PERRLA, EOMI, Normocephalic Oral: Moist Mucosa Neck: Supple, No JVD Lungs: Diminished, Normal air movement, No rhonchi, No wheeze, No rales Cardiovascular: Regular rate, Regular Rhythm, Normal S1, Normal S2, No murmurs Abdomen: Soft, Non Tender, Non-Distended, No Hepato-splenomegaly Extremities: No edema, Capillary Refill Less than 3 Seconds Skin: No rashes, No breakdown Musculoskeletal: Left hip pain to palpation, dressing intact Neurological: Cranial nerves II-XII grossly intact, Motor Exam 5/5 strength throughout, Sensory exam intact to light touch and pain Psych/Mental Status: Normal Affect, Appropriate Assessment & Plan Assessment/Plan (1) Fall: (2) Left displaced femoral neck fracture: (3) Hypokalemia: PLAN: Plan 1. Acute left intertrochanteric femoral fracture due to mechanical fall status postrepair on 06/11/2022/acute anemia on mixed chronic iron deficiency anemia andanemia of chronic disease ? Continue with pain management ? PT/OT for possible placement to TCU ? She did have 2 units of blood prior to surgery however she is continued to be slightly anemic and yesterday was 6.3 and had to be transfused another 2 units ? Attempting a stool sample to check for blood she states that she is have a colonoscopy in the next week or so in [place] ?Her serum iron is low and her TIBC was normal with an iron saturation of 6.7% and a ferritin of 16 she was given a dose of IV iron on the can repeat a dose tomorrow 2. Chronic alcohol use/bipolar disorder ? She states that she does binge drink and she had drank about a week prior about half a gallon of alcohol ? Currently not going through withdrawal and serum alcohol level on admission was normal ? She does not take any medications for her bipolar disorder as an outpatient 3. Hypothyroidism ? Stable ? Her TSH is 4.12 and she states that she was taken off of Synthroid by her PCP DVT: Eliquis 2.5 mg p.o. twice daily Charges/Coding Visit Charges Inpatient E&M: 30489 Subs Hosp L2 06/15/22 0945 <Electronically signed by Tyrone Roach MD> Cosigner Signature (if applicable): CC: ~ Signed [facility] Work Phone: 1(163) 177-532902-01-[address] Weiner [facility] June 14, 2022 6:36pm Note Date/Time June 14, 2022 6 :28pm [facility] Medical Records Department [address] [place] [address] Progress Note - Orthopedic 06/14/221827 MR#: [id number] Acct: [id number] Name: KENYATTA CARRILLO Rep #:[id number] : 1960 61 From: Leonard Huitron PCP: Naye Sheets Status:ADM IN [place] [facility] [place]-9 Subjective Subjective Patient is sitting at bedside and doing well this evening with no complaints. She does report chronic lightheadedness. She had chronic anemia on admission. She received 2 units postoperatively of packed red blood cells. She received 2 more today. She does have an outpatient work-up for GI bleed that she would like to proceed with here in the hospital. She reports pain in her thigh is well controlled. She has not noted any excessive swelling over the last 48 hours. Objective Data Objective Data Vital Signs: Vital Signs Temp Pulse Resp BP Pulse Ox O2 Del Method 98.5 F 78 18 114/64 98 Room Air 06/14/22 17:48 06/14/22 17:48 06/14/22 17:48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 Detail 06/11/22 01:55: Troponin I High Sens 17 06/11/22 01:55: WBC 9.8, RBC 2.26 L, Hgb 6.1 L, Hct 19.6 L, MCV 86.7, MCH 27.0, MCHC 31.1 L, RDW Std Deviation 66.8 H, RDW Coeff of Angelo 22.2 H, Plt Count 189, MPV 9.1, Immature Gran % (Auto) 0.400, Neut % (Auto) 70.6 H, Lymph % (Auto) 21.0, Meriwether % (Auto) 7.3, Eos % (Auto) 0.6, Baso % (Auto) 0.1, Absolute Neuts (auto) 6.9, Absolute Lymphs (auto) 2.07, Nucleated RBC % 0, Differential CommentSCANNED, Hypochromasia 2+, Anisocytosis 2+, Microcytosis 2+ 06/11/22 01:55: Sodium 133 L, Potassium 3.6, Chloride 95 L, Carbon Dioxide 30.0,Anion Gap 8, BUN 23 H, Creatinine 1.31 H, Estim Creat Clear Calc 50.73, Est GFR (MDRD) Af Amer 53 L, Est GFR (MDRD) Non-Af 44 L, BUN/Creatinine Ratio 17.6, Glucose 112 H, Calcium 7.9 L 06/11/22 01:55: PT 15.1 H, INR 1.2, APTT 27.2 Radiology Impression Pelvis X-Ray 06/10/22 15:50 IMPRESSION: Acute intertrochanteric fracture of the proximal left femur. Slight increase in size and density of a 13 mm sclerotic focus in the left iliac wing as compared to prior pelvic radiograph of 3 years ago; this most likely represents a bone island but follow-up may be of benefit, possibly due to include a bone scan. Electronically Signed: Sourav Iraheta MD at 17:35 EST , Femur X-Ray 06/10/22 17:00 IMPRESSION: Acute intertrochanteric fracture of the proximal left femur. Nonstandard communication protocol initiated. Electronically Signed: Sourav Iraheta MD at 17:38 EST , ADDENDUM: 06/10/22 6905 IMPRESSION: Acute intertrochanteric fracture of the proximal left femur. Nonstandard communication protocol initiated. N.B. : The above Results were Read Back by Sourav Iraheta MD to Mandeep Allison DO, and understanding confirmed on 06/10/2022 17:48:50 (ET). Electronically Signed: Sourav Iraheta MD at 17:38 EST , 06/11/22828 <Electronically signed by Leonard Weiner MD> Cosigner Signature (if applicable): CC: Dr. Renetta Recinos MD; Dr. Leonard Weiner MD; Naye Sheets~ Signed [facility] Work Phone: 1(139) 199-314101-29-2023 Procedure [facility] 06-11-[address] Ramires [facility] June 11, 2022 2:49am Note Date/Time June 11, 2022 2 :49am [facility] Medical Records Department [address] [place] [address] Progress Note - Hospitalist 06/11/22247 MR#: [id number] Acct: [id number] Name: KENYATTA CARRILLO Rep #:[id number] : 1960 61 From: Tiff Ramires MD PCP: Naye Sheets Status:ADM IN [id number] Note Repeat Hgb 6.1, will order 2 u PRBC and repeat HH ~ 1 hour following completion. 06/11/22248 <Electronically signed by Tiff Ramires MD> Cosigner Signature (if applicable): CC: ~ Signed [facility] Work Phone: 1(548) 553-926501-28-[address] Allison [facility] June 10, 2022 6:48pm Note Date/Time June 10, 2022 3 :33pm [facility] Medical Records Department [address] [place] [address] Emergency Department Summary 06/10/22 MR#: [id number] Acct: [id number] Name: KENYATTA CARRILLO Rep #:[id number] : 1960 61 From: Mandeep Campoverde PCP: Naye Sheets Status:REG ER Location: ED HPI History of Present Illness Chief Complaint: Fall Narrative Narrative: 61-year-old female here for fall notes left hip pain. Notes mechanical fall from standing earlier today. No head trauma or loss of consciousness no neck pain. No palpitations prior to fall. PFSH PFSH Home Medications buspirone 5 mg tablet 5 mg PO DAILY 04/08/19 [History Last Taken Unknown] divalproex 250 mg tablet,delayed release 500 mg PO DAILY 04/08/19 [History Last Taken Unknown] divalproex 250 mg tablet,delayed release 750 mg PO QHS 04/08/19 [History Last Taken Unknown] levothyroxine 50 mcg tablet 50 mcg PO DAILY 04/08/19 [History Last Taken 04/09/19] pantoprazole 40 mg tablet,delayed release 40 mg PO QHS 04/08/19 [History Last Taken Unknown] topiramate 100 mg tablet 100 mg PO BID 04/08/19 [History Last Taken Unknown] Allergy/AdvReac Type Severity Reaction Status Date / Time No Known Allergies Allergy Verified 06/10/22 15:24 Surgical History (Updated 06/10/22 @ 15:25 by Guerline Hernandez) H/O total hysterectomy History of right hip replacement Social History Smoking Status: Former smoker ROS ROS ED ROS Narrative Constitutional: Denies fever HEENT: Denies sore throat Neck: Denies neck pain Cardiovascular: Denies chest pain, syncope Respiratory: Denies shortness of breath GI: Denies nausea vomiting or abdominal pain : Denies changes in urinary habits Musculoskeletal: Endorses hip pain Neurologic: Denies numbness weakness or loss of sensation Skin denies rash EXAM Physical Exam Narrative Exam Narrative: Primary Survey Airway: Intact Breathing: Bilateral breath sounds Circulation: Palpable bilateral femorals, Palpable bilateral radial, Palpable bilateral DP and Palpable bilateral PT Disability / Spine precautions GCS Score: Eye Openin Verbal Response: 5 Motor Response: 6 Secondary Survey Constitutional: Please see MDM Head: Atraumatic, Midface stable, NO jaw malocclusion, No Cephalohematoma, and No Lacerations noted Eye: Pupils equal round and reactive to light, Extraocular muscles intact and Noperiorbital ecchymosis or stepoff, no evidence of entrapment ENT: Oropharynx clear, no lacerations, no hemotympanum, no raccoon eyes or nathan sign Cervical spine / Neck: No cervical spine bony tenderness, crepitance, or stepoffdeformity Trachea midline Lungs: Clear to auscultation, No asymmetric rise and No crepitus, no flail chest Cardiac: Regular rate and rhythm and No murmurs Abdomen: Soft, Nontender and No rebound Pelvis: Pelvis stable to compression : No evidence of genital injury Back: No midline bony tenderness to thoracic/lumbar/sacral spines Neuro: Intact sensation L1-S1 dermatomal distributions. Intact 5/5 strength in hip flexion (T12-L3) on right, cannot perform strength testing on the left 2/2 to acuity of condition. Knee extension (L2-L4), cannot perform on left secondary to acuity of condition intact on the right. Ankle dorsiflexion (L4-L5). Ankle plantar flexion (S1). Great toe extension (L5). 2+ patellar and Achilles DTRs.. Extremities: Obvious left hip deformity, left leg shortened and externally rotated Psych: Normal affect Nursing triage notes reviewed, Vital signs reviewed Const Vital Signs: 06/10/22 15:19 06/10/22 15:26 06/10/22 18:15 Temperature 96.8 F L 96.8 F L Temperature Source Temporal Pulse Rate 87 85 Respiratory Rate 18 18 Respiratory Effort Normal Non-Labored Respiratory Depth Normal Respiratory Pattern Normal Blood Pressure 140/74 H 174/79 H Blood Pressure Mean 96 110 Pulse Ox 100 100 100 Oxygen Delivery Method Room Air Room Air Room Air MDM MDM MDM Narrative Medical decision making narrative: Chief Complaint: Left hip pain External records reviewed: X-ray of the pelvis from 2019 shows right hip prosthesis no acute fracture dislocation I considered: Hip fracture dislocation I obtained an x-ray which showed evidence of an intertrochanteric fracture. Gave pain medicine. Obtained preop EKG basic labs admitted to medicine service for ongoing evaluation, pain management orthopedic consultation and likely surgical intervention Factors affecting care: History of bipolar disorder, alcohol abuse Social determinants of health: Alcohol abuse Shared decision making: I will have a discussion with the patient and or visitors regarding risk/benefits of further testing or admission. They will be made aware of of the risk/benefits inherent in this decision they will be given the opportunity to voice understanding. Consults: Internal medicine (Dr. Recinos, except the patient's case), orthopedic surgery (, is aware recommended no acute surgery but recommended admit to medicine for surgical clearance and possible surgery) Lab Data Attestation: I reviewed the patient's lab results. Lab results narrative: CBC with leukocytosis suggestive of systemic inflammation, severe anemia, no obvious thrombocytopenia BMP with hyponatremia, hypokalemia, no obvious elevated anion gap mildly elevated creatinine Labs: Laboratory Results - last 24 hr 06/10/22 06/10/22 16:05 16:05 WBC 13.6 H RBC 2.87 L Hgb 7.8 L Hct 25.3 L MCV 88.2 MCH 27.2 MCHC 30.8 L RDW Std Deviation 66.9 H RDW Coeff of Angelo 22.1 H Plt Count 270 MPV 9.7 Differential Comment SCANNED Sodium 132 L Potassium 2.3 L* Chloride 87 L Carbon Dioxide 31.0 Anion Gap 14 BUN 26 H Creatinine 1.34 H Estim Creat Clear Calc 49.59 Est GFR (MDRD) Af Amer 51 L Est GFR (MDRD) Non-Af 42 L BUN/Creatinine Ratio 19.4 Glucose 146 H Calcium 8.6 Radiography Diagnostic Testing: Clinical Impression(s) from Imaging Studies Pelvis X-Ray 06/10/22 15:50 IMPRESSION: Acute intertrochanteric fracture of the proximal left femur. Slight increase in size and density of a 13 mm sclerotic focus in the left iliac wing as compared to prior pelvic radiograph of 3 years ago; this most likely represents a bone island but follow-up may be of benefit, possibly due to include a bone scan. Electronically Signed: Sourav Iraheta MD at 17:35 EST , Femur X-Ray 06/10/22 17:00 IMPRESSION: Acute intertrochanteric fracture of the proximal left femur. Nonstandard communication protocol initiated. Electronically Signed: Sourav Iraheta MD at 17:38 EST , ADDENDUM: 06/10/22 3823 IMPRESSION: Acute intertrochanteric fracture of the proximal left femur. Nonstandard communication protocol initiated. N.B. : The above Results were Read Back by Sourav Iraheta MD to Mandeep Allison DO, and understanding confirmed on 06/10/2022 17:48:50 (ET). Electronically Signed: Sourav Iraheta MD at 17:38 EST , Left hip x-ray personally reviewed by myself shows left intertrochanteric fracture we will consult orthopedic EKG Initial EKG: Comments: EKG with normal sinus rhythm, normal axis, normal intervals, no obvious STEMI. Treatment and Re-Evaluation Narrative: The patient remains neurovascular intact left lower extremity is appropriate foradmission to medicine Discharge Plan Triage Chief Complaint: Fall ED Provider: Mandeep Allison Dx/Rx/DC Orders Clinical Impression: Closed fracture of left hip, History of acute alcohol intoxication Prescriptions: No Action buspirone 5 MG tablet 5 mg PO DAILY divalproex 250 MG tablet 500 mg PO DAILY divalproex 250 MG tablet 750 mg PO QHS levothyroxine 50 MCG tablet 50 mcg PO DAILY pantoprazole 40 MG tablet 40 mg PO QHS topiramate 100 MG tablet 100 mg PO BID Primary Care Provider: Naye Sheets Referrals: Naye Sheets [Primary Care Provider] - Disposition Disposition: Acute Care Hospital [facility] What to do if you have Problems For any increased pain, shortness of breath, bleeding, nausea or vomiting, chestpain, or any unexpected problems, contact your Primary Care Provider. Call [facility] ([phone]) or report to the closest Emergency Room. Call 911 if necessary. 06/10/221847 <Electronically signed by Mandeep Allison DO> Cosigner Signature (if applicable): CC: Naye Sheets ~ Signed [facility] Work Phone: 1(951) 139-177901-28-[address] Allison [facility] June 10, 2022 6:48pm Note Date/Time June 10, 2022 3 :33pm [facility] Medical Records Department [address] [place] [address] Emergency Department Summary 06/10/22 MR#: [id number] Acct: [id number] Name: KENYATTA CARRILLO Rep #:[id number] : 1960 61 From: Mandeep Campoverde PCP: Naye Sheets Status:REG ER Location: ED HPI History of Present Illness Chief Complaint: Fall Narrative Narrative: 61-year-old female here for fall notes left hip pain. Notes mechanical fall from standing earlier today. No head trauma or loss of consciousness no neck pain. No palpitations prior to fall. PFSH PFSH Home Medications buspirone 5 mg tablet 5 mg PO DAILY 04/08/19 [History Last Taken Unknown] divalproex 250 mg tablet,delayed release 500 mg PO DAILY 04/08/19 [History Last Taken Unknown] divalproex 250 mg tablet,delayed release 750 mg PO QHS 04/08/19 [History Last Taken Unknown] levothyroxine 50 mcg tablet 50 mcg PO DAILY 04/08/19 [History Last Taken 04/09/19] pantoprazole 40 mg tablet,delayed release 40 mg PO QHS 04/08/19 [History Last Taken Unknown] topiramate 100 mg tablet 100 mg PO BID 04/08/19 [History Last Taken Unknown] Allergy/AdvReac Type Severity Reaction Status Date / Time No Known Allergies Allergy Verified 06/10/22 15:24 Surgical History (Updated 06/10/22 @ 15:25 by Guerline Hernandez) H/O total hysterectomy History of right hip replacement Social History Smoking Status: Former smoker ROS ROS ED ROS Narrative Constitutional: Denies fever HEENT: Denies sore throat Neck: Denies neck pain Cardiovascular: Denies chest pain, syncope Respiratory: Denies shortness of breath GI: Denies nausea vomiting or abdominal pain : Denies changes in urinary habits Musculoskeletal: Endorses hip pain Neurologic: Denies numbness weakness or loss of sensation Skin denies rash EXAM Physical Exam Narrative Exam Narrative: Primary Survey Airway: Intact Breathing: Bilateral breath sounds Circulation: Palpable bilateral femorals, Palpable bilateral radial, Palpable bilateral DP and Palpable bilateral PT Disability / Spine precautions GCS Score: Eye Openin Verbal Response: 5 Motor Response: 6 Secondary Survey Constitutional: Please see MDM Head: Atraumatic, Midface stable, NO jaw malocclusion, No Cephalohematoma, and No Lacerations noted Eye: Pupils equal round and reactive to light, Extraocular muscles intact and Noperiorbital ecchymosis or stepoff, no evidence of entrapment ENT: Oropharynx clear, no lacerations, no hemotympanum, no raccoon eyes or nathan sign Cervical spine / Neck: No cervical spine bony tenderness, crepitance, or stepoffdeformity Trachea midline Lungs: Clear to auscultation, No asymmetric rise and No crepitus, no flail chest Cardiac: Regular rate and rhythm and No murmurs Abdomen: Soft, Nontender and No rebound Pelvis: Pelvis stable to compression : No evidence of genital injury Back: No midline bony tenderness to thoracic/lumbar/sacral spines Neuro: Intact sensation L1-S1 dermatomal distributions. Intact 5/5 strength in hip flexion (T12-L3) on right, cannot perform strength testing on the left 2/2 to acuity of condition. Knee extension (L2-L4), cannot perform on left secondary to acuity of condition intact on the right. Ankle dorsiflexion (L4-L5). Ankle plantar flexion (S1). Great toe extension (L5). 2+ patellar and Achilles DTRs.. Extremities: Obvious left hip deformity, left leg shortened and externally rotated Psych: Normal affect Nursing triage notes reviewed, Vital signs reviewed Const Vital Signs: 06/10/22 15:19 06/10/22 15:26 06/10/22 18:15 Temperature 96.8 F L 96.8 F L Temperature Source Temporal Pulse Rate 87 85 Respiratory Rate 18 18 Respiratory Effort Normal Non-Labored Respiratory Depth Normal Respiratory Pattern Normal Blood Pressure 140/74 H 174/79 H Blood Pressure Mean 96 110 Pulse Ox 100 100 100 Oxygen Delivery Method Room Air Room Air Room Air [facility] Narrative Medical decision making narrative: Chief Complaint: Left hip pain External records reviewed: X-ray of the pelvis from 2019 shows right hip prosthesis no acute fracture dislocation I considered: Hip fracture dislocation I obtained an x-ray which showed evidence of an intertrochanteric fracture. Gave pain medicine. Obtained preop EKG basic labs admitted to medicine service for ongoing evaluation, pain management orthopedic consultation and likely surgical intervention Factors affecting care: History of bipolar disorder, alcohol abuse Social determinants of health: Alcohol abuse Shared decision making: I will have a discussion with the patient and or visitors regarding risk/benefits of further testing or admission. They will be made aware of of the risk/benefits inherent in this decision they will be given the opportunity to voice understanding. Consults: Internal medicine (Dr. Recinos, except the patient's case), orthopedic surgery (, is aware recommended no acute surgery but recommended admit to medicine for surgical clearance and possible surgery) Lab Data Attestation: I reviewed the patient's lab results. Lab results narrative: CBC with leukocytosis suggestive of systemic inflammation, severe anemia, no obvious thrombocytopenia BMP with hyponatremia, hypokalemia, no obvious elevated anion gap mildly elevated creatinine Labs: Laboratory Results - last 24 hr 06/10/22 06/10/22 16:05 16:05 WBC 13.6 H RBC 2.87 L Hgb 7.8 L Hct 25.3 L MCV 88.2 MCH 27.2 MCHC 30.8 L RDW Std Deviation 66.9 H RDW Coeff of Angelo 22.1 H Plt Count 270 MPV 9.7 Differential Comment SCANNED Sodium 132 L Potassium 2.3 L* Chloride 87 L Carbon Dioxide 31.0 Anion Gap 14 BUN 26 H Creatinine 1.34 H Estim Creat Clear Calc 49.59 Est GFR (MDRD) Af Amer 51 L Est GFR (MDRD) Non-Af 42 L BUN/Creatinine Ratio 19.4 Glucose 146 H Calcium 8.6 Radiography Diagnostic Testing: Clinical Impression(s) from Imaging Studies Pelvis X-Ray 06/10/22 15:50 IMPRESSION: Acute intertrochanteric fracture of the proximal left femur. Slight increase in size and density of a 13 mm sclerotic focus in the left iliac wing as compared to prior pelvic radiograph of 3 years ago; this most likely represents a bone island but follow-up may be of benefit, possibly due to include a bone scan. Electronically Signed: Sourav Iraheta MD at 17:35 EST , Femur X-Ray 06/10/22 17:00 IMPRESSION: Acute intertrochanteric fracture of the proximal left femur. Nonstandard communication protocol initiated. Electronically Signed: Sourav Iraheta MD at 17:38 EST , ADDENDUM: 06/10/22 4165 IMPRESSION: Acute intertrochanteric fracture of the proximal left femur. Nonstandard communication protocol initiated. N.B. : The above Results were Read Back by Sourav Iraheta MD to Mandeep Allison DO, and understanding confirmed on 06/10/2022 17:48:50 (ET). Electronically Signed: Sourav Iraheta MD at 17:38 EST , Left hip x-ray personally reviewed by myself shows left intertrochanteric fracture we will consult orthopedic EKG Initial EKG: Comments: EKG with normal sinus rhythm, normal axis, normal intervals, no obvious STEMI. Treatment and Re-Evaluation Narrative: The patient remains neurovascular intact left lower extremity is appropriate foradmission to medicine Discharge Plan Triage Chief Complaint: Fall ED Provider: Mandeep Allison Dx/Rx/DC Orders Clinical Impression: Closed fracture of left hip, History of acute alcohol intoxication Prescriptions: No Action buspirone 5 MG tablet 5 mg PO DAILY divalproex 250 MG tablet 500 mg PO DAILY divalproex 250 MG tablet 750 mg PO QHS levothyroxine 50 MCG tablet 50 mcg PO DAILY pantoprazole 40 MG tablet 40 mg PO QHS topiramate 100 MG tablet 100 mg PO BID Primary Care Provider: Naye Sheets Referrals: Naye Sheets [Primary Care Provider] - Disposition Disposition: Acute Care Hospital [facility] What to do if you have Problems For any increased pain, shortness of breath, bleeding, nausea or vomiting, chestpain, or any unexpected problems, contact your Primary Care Provider. Call [facility] ([phone]) or report to the closest Emergency Room. Call 911 if necessary. 06/10/22 6425 <Electronically signed by Mandeep Estefany DO> Cosigner Signature (if applicable): CC: Naye Sheets ~ Signed [facility] Work Phone: 1(241) 185-642212-20-2022 Miscellaneous Notes* Telephone Encounter - Vicente Wilson LPN - 05/02/2022 9:49 AM EST Left detailed message for pt with provider instructions. Vicente Wilson LPN * Telephone Encounter - Naye Sheets MD - 05/01/2022 4:31 PM EST They don't necessarily recommend that we have to any more , however, if surgery would like us to prescribe-add zithromax one hour before with sip of water * Telephone Encounter - Que Warner RN - 04/28/2022 5:03 PM EST Pt called and is notified of providers results and instructions. Pt voices understanding. Pt was scheduled in for B12 injection on 05/03. Pt states she was talking with and she wants Pt to have an upper and lower scope done. She said wanted to know if the providers wanted her to have any antibiotic after the procedure due to her having metal all over her body from surgical procedure. also wanted to know if PCP wanted to prescribe antibiotic if necessary since the Pt is now allergic to Amoxicillin. Please call and advise. Que Warner RN * Telephone Encounter - Meenakshi Baker APRN.DEONDRE - 04/28/2022 4:42 PM EST Can please let patient know that I received her lab results. Her magnesium is still low. Please increase the magnesium to twice daily. Her blood count is still low, but stable. Continue the iron. Her folic acid and B12 levels are low, as well. Can we get her set up for a B12 injection. The order is in. Lets have her start folic acid daily. I sent this into the pharmacy. Recheck labs in 2 weeks. Orders are in. Meenakshi Baker APRN.CNP documented in this encounterKindred Healthcare12-13-2022 Miscellaneous Notes* Telephone Encounter - Vicente Wilson LPN - 04/25/2022 2:10 PM EST TC to pt, notified of results/provider instructions. Schedulers please assist pt with scheduling appt with Gen Surgery. Vicente Wilson LPN * Telephone Encounter - Meenakshi Baker APRN.CNP - 04/25/2022 1:02 PM EST Can please let patient know that I received her lab results. She is significantly anemic. I would like to have her start iron twice daily. Please make sure she is continuing the prilosec twice daily. Lets have her complete the stool kit. Lets also get her set up with general surgery, as she will likely need to have a scoping done. If she gets any worsening symptoms (passing out, chest pain, shortness of breath, etc -- she should proceed to the ER). Her magnesium is also low. Lets have her start magnesium daily. Please repeat labs in 1 week. Orders are in. (I sent the magnesium and the iron to the pharmacy). Meenakshi Baker APRN.CNP documented in this encounterKindred Healthcare12-12-2022 Instructions* Patient Instructions* Meenakshi Bkaer APRN.CNP - 04/24/2022 2:52 PM EST Get labs. Increase fluids. Continue stomach medication. 4. Let us know if the URI symptoms do not continue to improve. 5. Let us know if any further episodes of dizziness or passing out. documented in this encounterKindred Healthcare12-12-2022 History of Present illness Narrative* Meenakshi Baker APRN.[facility] - 04/24/2022 2:14 PM EST This is a 61 year old female who presents today with: Patient presents with: Acute Visit: Sore throat, cough, ears hurt since getting immunizations- flu, covid booster and shingles 5 weeks ago HISTORY OF PRESENT ILLNESS: Kenyatta Carrillo is a 61 year old female. Patient presents with: Acute Visit: Sore throat, cough, ears hurt since getting immunizations- flu, covid booster and shingles 5 weeks ago Refers that she has been having episodes of dizziness. Refers that this started in december when she got vaccines (shingles, covid, flu). Feels near syncopal. Has happened several times in stores. Refers a foggy/funny feeling in the head. Has vomited. No diaphoresis. Refers it usually happens when she is standing or moving. Usually has to sit or lay down for a while. No chest pains. No palpitations. Refers that she is just wore - out. Refers hx of anemia. Refers hx of bleeding ulcer. Refers tarry stools, but refers related to the pepto she has been taking. Hx of needing blood transfusion. She reports that she is taking PPI. Denies nsaid use. Reports eating and drinking adequately. Refers she has had cold/flu symptoms for the last 3-4 weeks. Initially had diarrhea and fever. Voice gets hoarse at times. Still with an occ cough. Denies PND. Does feel that this is improved. PAST MEDICAL HISTORY: PAST MEDICAL HISTORY Diagnosis Date Bipolar 1 disorder, depressed (HCC) 80s Colon polyps 07/31/2001 TVA Eating disorder Endometriosis, site unspecified Endometriosis High blood sugar Knee pain Moderate dysplasia of cervix 80's Osteopenia 2011 PAST SURGICAL HISTORY Procedure Laterality Date CAUTERY CERVIX CRYOCAUTERY INITIAL/REPEAT 1979' COLONOSCOPY 08/05/2002 no polyp COLONOSCOPY & POLYPECTOMY 07/31/2001 TVA removed COLONOSCOPY FLX DX W/COLLJ SPEC WHEN PFRMD 07/22/2014 Colonoscopy ESOPHAGOGASTRODUODENOSCOPY TRANSORAL DIAGNOSTIC 07/22/2014 EGD HYSTERECTOMY HX 2001 LAVH/BSO KNEE LEFT OP SURGERY 3 surgeries KNEE RIGHT OP SURGERY 5 knee surgeies - last being TKA LAPS ABD PRTM&OMENTUM DX W/WO SPEC BR/WA SPX Laparoscopy 8-10 of them for endometriosis PAST SURGICAL HISTORY OF 2005 left wrist surgery PAST SURGICAL HISTORY OF Right 2016 ORIF right hip PAST SURGICAL HISTORY OF Right 11/2020 elbow fracture SHOULDER ARTHROSCOPY/SURGERY ALLERGIES Amoxil [Amoxicillin] MEDICATIONS Current Outpatient Medications Medication Sig omeprazole (PRILOSEC) 20 mg capsule Take 1 capsule by mouth twice daily. 1/2 hr before meal., can empty the capsule into food No current facility-administered medications for this visit. FAMILY HISTORY Problem Relation Age of Onset Diabetes Mother Emphysema Mother COPD Mother Cancer Mother throat and met to lung and brain Alcohol/Drug Mother Stroke Mother Heart disease Mother other (lung cancer) Mother other (throat cancer) Mother Cancer Father lung; colon; spinal cancer Colon Cancer Father Alcohol/Drug Father other (lung cancer) Father Heart disease Sister Allergies Maternal Grandmother Emphysema Maternal Grandfather Arthritis Paternal Grandmother Breast Cancer Paternal Grandmother None Sister None Sister Social History Tobacco Use Smoking status: Former Smokeless tobacco: Never Tobacco comments: quit in 2017 Substance Use Topics Alcohol use: No Comment: Patient indicated that she is binge drinker Sober since Drug use: No EXAM: BP 122/82 Pulse 94 Resp 18 Wt 86.2 kg (190 lb) SpO2 98% BMI 25.77 kg/m Supine - 132/70 -- 72 Sitting -- 118/76 -- 80 Standing -- 112/74 -- 74. PHYSICAL EXAM: General Appearance: Well appearing, alert, in no acute distress, well-hydrated, well nourished.. Skin: Skin color, texture, turgor normal, no suspicious rashes or lesions. Head: Normocephalic, no masses, lesions, tenderness or abnormalities. Eyes: Anicteric sclera. Pupils are equally round and reactive to light. Extraocular movements are intact. Ears: External ears normal, canals clear. Normal TMs bilaterally. Oropharynx: Lips, mucosa, and tongue normal, teeth and gums normal, oropharynx normal. Neck: Supple, no adenopathy; thyroid symmetric, normal size, no bruits. Lungs: Lungs clear to auscultation. No wheezing, rhonchi, rales.. Heart: RRR without murmur, gallop, or rubs. No ectopy. Extremities: No deformities, edema, skin discoloration, clubbing or cyanosis. Good capillary refill. Neurologic: Gait normal. ASSESSMENT/PLAN: 1. Near syncope - ICD9: 780.2, ICD10: R55 (primary diagnosis) - ECG COMPLETE - SR without ectopy of ST changes. Orthos + -- heart rate up 28 bpm; SBP dropped 20mm/Hg. Encouraged to push fluids. She has a hx of significant anemia. Will go ahead and get repeat labs. 2. Fatigue, unspecified type - ICD9: 780.79, ICD10: R53.83 As above - CBC + DIFF - COMP METABOLIC PANEL - TSH BLD - MAGNESIUM BLD 3. Elevated glucose - ICD9: 790.29, ICD10: R73.09 - HGB A1C 4. Symptoms of upper respiratory infection (URI) - ICD9: 786.09, ICD10: R09.89 Symptoms improved and only mild at present. Encouraged to continue to monitor and notify provider if they don't continue to improve. Discussed treatment plan and patient voices understanding. Patient's questions answered appropriately. Medications and potential side effects were discussed and patient voices understanding. Return to the office as scheduled or as needed for worsening/no improvement. Meenakshi Baker APRN.[employer] documented in this encounterKindred Healthcare10-31-2022 Miscellaneous Notes* Telephone Encounter - Vicente Wilson LPN - 03/13/2022 8:41 AM EDT Patient has been identified by name and date of : Yes Type of form: DWO from [employer] Form received via: Fax When form is completed, fax form to fax number provided. Form has been forwarded to: Provider's mailbox. Provider name: Dr. Kortney Wilson LPN documented in this encounterKindred Healthcare10-28-2022 Miscellaneous Notes* Telephone Encounter - Aleah Holliday RN - 03/10/2022 10:50 AM EDT Patient phoned to let pcp know- you will be receiving an order from [employer] regarding her depends. Reports she changed the size, which have less in the package, so they are ordering 8 boxes instead of 6, and will also order her underpads, box of 10. Will order her 3 boxes to use one daily. documented in this encounterKindred Healthcare09-19-2022 Miscellaneous Notes* Telephone Encounter - Liseth Lockwood LPN - 01/30/2022 1:08 PM EDT Denies shortness of breath and edema. Scheduled visit. * Telephone Encounter - Naye Sheets MD - 01/30/2022 11:35 AM EDT Thyroid will not cause that much weight gain usually in that short of time. Likely needs seen by one of us. Any edema or shortness of breath.? * Telephone Encounter - Edna Sales Ma - 01/30/2022 11:22 AM EDT TSH Date Value Ref Range Status 08/05/2021 2.990 0.270 - 4.200 mIU/L Final Last OV 11/23/21 Fatigue Weight gain of 11 lbs in the last 2 weeks Denies any SOB or edema. * Telephone Encounter - Heike Spangler - 01/30/2022 10:59 AM EDT Patient called requesting thyroid labs because she gained 11 lbs Can be reached at [phone] Thank you Heike Spangler documented in this encounterKindred Healthcare09-14-2022 Miscellaneous Notes* Telephone Encounter - Liseth Lockwood LPN - 01/25/2022 11:23 AM EDT Left another message for patient that needs an appointment to be seen if still having pain. * Telephone Encounter - Liseth Lockwood LPN - 01/19/2022 9:16 AM EDT Left her a message to contact office back. * Telephone Encounter - Naye Sheets MD - 01/19/2022 8:56 AM EDT If that severe, ER * Telephone Encounter - Shanna Sheldon RN - 01/19/2022 8:36 AM EDT Protocol recommends: PCP Triage. *Call was ended before this nurse could inform pt that office would call her for PCP instructions, OR patient ended call herself-this nurse unsure. Attempted to call pt back to discuss further and noanswer. VM message left instructing her that office would call her with advise. Please call pt with advise. Thank you. Reason for Disposition [1] Thigh or calf pain AND [2] only 1 side AND [3] present > 1 hour (Exception: chronic unchanged pain) Answer Assessment - Initial Assessment Questions Patient calling with complaints of severe right leg pain from her crotch to her right knee. Ratespain above a 10. Reports it started about 1 or 2 days ago. States she has not taken any OTC pain medications or prescribed pain medications. She reports she has had circulation issues in her right leg before and it feels like this. Reports her right upper leg and knee are typically swollen and are typically larger than left leg. Reports chronic weakness to legs-no changes. 1. ONSET: as above 2. LOCATION: as above 3. PAIN: severe 4. WORK OR EXERCISE: no 5. CAUSE: Pt unsure of cause 6. OTHER SYMPTOMS: No chest pain, no back pain, no breathing difficulty, + swelling, no rash, no fever, no color changes, no numbness, + weakness in legs normally Protocols used: Leg Rved-[id number]-VF documented in this encounterKindred Healthcare08-01-2022 Miscellaneous Notes* Telephone Encounter - Fay Geronimo RN - 12/12/2021 8:40 AM EDT Patient calls to report that she needs to get her Covid Booster but can't because she doesn't have records of first two vaccinations received. Covid Vaccination Records copied and placed in Medical Records for patient to clam picker. Fay Geronimo RN documented in this encounterKindred Healthcare07-13-2022 History of Present illness Narrative* Naye Sheets MD - 11/23/2021 4:04 PM EDT Patient presents with: Follow Up HPI: Patient presents today for office visit for follow up. Seen at urgent care in September for a left facial abscess and recently for an otitis media. Had labs done at last ov. Did not follow with obstetrics gyn as recommended. No fever or chills. Right ear is sore now. Has sinus congestion. Did not really seem to 100% better. No fever or chills. Was treated with augmentin. Declines psych treatment. Out of the correction. Is not compliant with ppi treatment. Overall is doing well. No new dysphagia. No chest pain or shortness of breath. No black or bloody stools. See previous ov: Needs face to face visit for lift chair. She has not bee in the office since 2019 and that was in a virtual visit. Last physical visit was 2018. Appears she is not taking any of her meds Somewhat difficult history. She was in a psych facility in [place]. Apparently had periprosthetic hip fracture it was not repaired. Also injured her right arm and had it repaired. She was in an ECF for four months. Since then had gi bleed and had a ? egd at [place]. Was drinking etoh Was living in a homeless correction at this point. Now is in an apartment. Has been treated by [facility] and they are attempting to get her into a psych center. She is not taking her synthroid. Has been off of it since March. Having weight gain and tiredness and fatigue. Still has chronic dysphagia. No black or bloody stools. No chest pain or shortness of breath. Needs a rollator. Lost hers along the way. Has difficulty getting up and down from a chair. Once she is up and moving she can ambulate with the walker. Has done physical therapy. Her gait is affected due to her multiple injuries. Would definitely benefit from a lift chair. She would like a script for pull ups. Has issues getting to restroom due to her mobility and urge incontinence. Component Latest Ref Rng & Units 08/05/2021 WBC 3.70 - 11.00 k/uL 7.46 RBC 3.90 - 5.20 m/uL 4.12 Hemoglobin 11.5 - 15.5 g/dL 11.5 Hematocrit 36.0 - 46.0 % 37.3 MCV 80.0 - 100.0 fL 90.5 MCH 26.0 - 34.0 pg 27.9 MCHC 30.5 - 36.0 g/dL 30.8 RDW-CV 11.5 - 15.0 % 17.5 (H) Platelet Count 150 - 400 k/uL 220 MPV 9.0 - 12.7 fL 9.8 Neut% % 53.9 Abs Neut (ANC) 1.45 - 7.50 k/uL 4.03 Lymph% % 34.2 Abs Lymph 1.00 - 4.00 k/uL 2.55 Meriwether% % 9.8 Abs Meriwether <0.87 k/uL 0.73 Eosin% % 1.1 Abs Eosin <0.46 k/uL 0.08 Baso% % 0.3 Abs Baso <0.11 k/uL <0.03 Immature Gran % % 0.7 IMMATURE GRANS (ABS) <0.10 k/uL 0.05 NRBC /100 WBC 0.0 Absolute nRBC <0.01 k/uL <0.01 DTYPE Auto Protein, Total 6.3 - 8.0 g/dL 7.3 Albumin 3.9 - 4.9 g/dL 3.9 Calcium 8.5 - 10.2 mg/dL 8.8 Bilirubin, Total 0.2 - 1.3 mg/dL 0.5 Alkaline Phosphatase 34 - 123 U/L 121 AST 13 - 35 U/L 18 ALT 7 - 38 U/L 15 Glucose 74 - 99 mg/dL 101 (H) BUN 7 - 21 mg/dL 12 Creatinine 0.58 - 0.96 mg/dL 0.86 Sodium 136 - 144 mmol/L 135 (L) Potassium 3.7 - 5.1 mmol/L 3.3 (L) Chloride 97 - 105 mmol/L 97 CO2 22 - 30 mmol/L 27 Anion Gap 9 - 18 mmol/L 11 eGFR >=60 mL/min/1.73m 76 Total Cholesterol, Nonfasting <200 mg/dL 177 Triglycerides, Nonfasting <150 mg/dL 122 HDL Cholesterol, Nonfasting >39 mg/dL 91 LDL Cholesterol, Nonfasting <100 mg/dL 62 Non HDL Cholesterol, Nonfasting <130 mg/dL 86 VLDL Cholesterol, Nonfasting <30 mg/dL 24 Total Chol/HDL Ratio, Nonfasting <5.10 mg/dL 1.95 LDL/HDL Ratio, Nonfasting <2.54 mg/dL 0.68 HIV 12 Combo (Ag/Ab) Nonreactive Nonreactive HIV 1/2 Ab HIV Interpretation TSH 0.270 - 4.200 mIU/L 2.990 Hep C Antibody IA Negative Negative MEDICATIONS: No current outpatient medications on file. No current facility-administered medications for this visit. ALLERGIES: ALLERGIES Allergen Reactions Amoxil [Amoxicillin] Rash Face and neck PAST MEDICAL HISTORY Diagnosis Date Bipolar 1 disorder, depressed (HCC) 80s Colon polyps 07/31/2001 TVA Eating disorder Endometriosis, site unspecified Endometriosis High blood sugar Knee pain Moderate dysplasia of cervix 80's Osteopenia 2011 PAST SURGICAL HISTORY Procedure Laterality Date CAUTERY CERVIX CRYOCAUTERY INITIAL/REPEAT COLONOSCOPY 08/05/2002 no polyp COLONOSCOPY & POLYPECTOMY 07/31/2001 TVA removed COLONOSCOPY FLX DX W/COLLJ SPEC WHEN PFRMD 07/22/2014 Colonoscopy ESOPHAGOGASTRODUODENOSCOPY TRANSORAL DIAGNOSTIC 07/22/2014 EGD HYSTERECTOMY HX 2001 LAVH/BSO KNEE LEFT OP SURGERY 3 surgeries KNEE RIGHT OP SURGERY 5 knee surgeies - last being TKA LAPS ABD PRTM&OMENTUM DX W/WO SPEC BR/WA SPX Laparoscopy 8-10 of them for endometriosis PAST SURGICAL HISTORY OF 2004 left wrist surgery PAST SURGICAL HISTORY OF Right 2015 ORIF right hip PAST SURGICAL HISTORY OF Right 11/2020 elbow fracture SHOULDER ARTHROSCOPY/SURGERY FAMILY HISTORY Problem Relation Age of Onset Diabetes Mother Emphysema Mother COPD Mother Cancer Mother throat and met to lung and brain Alcohol/Drug Mother Stroke Mother Heart disease Mother other (lung cancer) Mother other (throat cancer) Mother Cancer Father lung; colon; spinal cancer Colon Cancer Father Alcohol/Drug Father other (lung cancer) Father Heart disease Sister Allergies Maternal Grandmother Emphysema Maternal Grandfather Arthritis Paternal Grandmother Breast Cancer Paternal Grandmother None Sister None Sister Social History Tobacco Use Smoking status: Former Smoker Smokeless tobacco: Never Used Tobacco comment: quit in 2018 Substance Use Topics Alcohol use: No Comment: Patient indicated that she is binge drinker Sober since Drug use: No Reviewed current medications, allergies, past medical history, surgical history, family history andsocial history today. REVIEW OF SYSTEMS All other reviewed and negative other than HPI. HEALTH MAINTENANCE: Reviewed health maintenance issues today and recommended the following in detail. MAMMOGRAM due on 05/28/2015 DEPRESSION SCREENING due on 03/07/2020 VITALS: BP 136/78 Pulse 88 Wt 79.8 kg (176 lb) BMI 23.87 kg/m Last 4 Encounter Wt Readings: Date: Wt: 11/23/2021 79.8 kg (176 lb) 11/10/2021 80.7 kg (178 lb) 10/03/2021 82.6 kg (182 lb 3.2 oz) 08/05/2021 81.6 kg (180 lb) PHYSICAL EXAMINATION: General appearance: Well appearing, alert, in no acute distress, well-hydrated, well nourished. Skin: Skin color, texture, turgor normal, no suspicious rashes or lesions Head: Normocephalic, no masses, lesions, tenderness or abnormalities Neck: Supple, no adenopathy; thyroid symmetric, normal size, no bruits Lungs: Lungs clear to auscultation. No wheezing, rhonchi, rales Heart: RRR without murmur, gallop, or rubs. No ectopy Abdomen: Normal abdominal exam, Abdomen soft, non-tender. Bowel sounds normal. No masses, organomegaly Extremities: No deformities, edema, skin discoloration, clubbing or cyanosis. Good capillary refill. ASSESSMENT/PLAN: 1. Peptic ulcer disease - ICD9: 533.90, ICD10: K27.9 (primary diagnosis) - reinforced need to stay on meds. No etoh. Doing well. - OMEPRAZOLE 20 MG CAPSULE,DELAYED RELEASE 2. Moderate dysplasia of cervix - ICD9: 622.12, ICD10: N87.1 - see obstetrics gyn 3. Female stress incontinence - ICD9: 625.6, ICD10: N39.3 4. Gastrointestinal hemorrhage, unspecified gastrointestinal hemorrhage type - ICD9: 578.9, ICD10: K92.2 - as above. 5. Hypothyroidism, unspecified type - ICD9: 244.9, ICD10: E03.9 - doing well off of mew. 6. Screening breast examination - ICD9: V76.10, ICD10: Z12.39 - Follow up for annual exam in one year. - [facility] SCREENING Naye Sheets RTO in annually and prn. documented in this encounterKindred Healthcare06-30-2022 Instructions* Patient Instructions* Bronwyn Lundy APRN.QUARTER BACKER - 11/10/2021 1:41 PM EDT RESPIRATORY INFECTION GENERAL INFORMATION: An upper respiratory tract infection, or cold, is a viral infection of the airway passages. It can be caused by any one of almost 200 different viruses. Common symptoms include a runny or stuffy nose, sneezing, watery eyes, sore throat, cough, and slight fever. Colds are contagious, especially during the first 3 or 4 days and cannot be cured by antibiotics. They are spread by coughs, sneezes, anddirect contact, especially [id number]. A respiratory tract infection usually clears up in a few days, but some people may be sick for a week or two. INSTRUCTIONS: 1. Be careful not to blow your nose too hard because this may cause a nosebleed. 2. Use a cool-mist humidifier (vaporizer) to increase air moisture. This will make it easier for you to breathe. Do not use hot steam. 3. Rest as much as possible and get plenty of sleep. 4. Wash your hands often, especially after you blow your nose. Cover your mouth and nose with a tissue when you sneeze or cough. 5. Drink plenty of clear fluids (8 glasses a day) such as water, fruit juice, tea, clear soups, andcarbonated beverages. CONTACT YOUR DOCTOR IF : 1. Your fever lasts more than 3 days. 2. You have a sore throat that gets worse or you see white or yellow spots in your throat. 3. Your cough gets worse or lasts more than 10 days. 4. You develop a rash anywhere on your skin. 5. You have an earache or a headache. 6. You have thick greenish or yellowish discharge from your nose. RETURN IMMEDIATELY IF: 1. You cough up thick yellow, green, baron, or bloody sputum. 2. You have difficulty breathing, pain in your chest, or your skin or nails look baron or blue. 3. You have shaking chills or a temperature over 102 F (39 C). documented in this encounterKindred Healthcare06-30-2022 History of Present illness Narrative* Bronwyn Lundy APRN.CNP - 11/10/2021 1:38 PM EDT This note was created using [employer]. Subjective Kenyatta Carrillo is a 61 year old female. 61 year old female with PMH thyroid presents for illness. Acute onset one week ago +sore throat +ear pain +headache +cough Denies N/V/D. States over past few days symptoms have worsened. The history is provided by the patient. No sign language interpreter was used. Cough This is a new problem. The current episode started more than 1 week ago. The problem occurs constantly. The cough is non-productive. There has been no fever. Associated symptoms include ear pain, headaches, rhinorrhea and sore throat. Pertinent negatives include no chest pain, no chills, no sweats,no weight loss, no ear congestion, no myalgias, no shortness of breath, no wheezing and no eye redness. She has tried nothing for the symptoms. The treatment provided no relief. She is not a smoker. Her past medical history does not include bronchitis, pneumonia, bronchiectasis, COPD, emphysema or asthma. Ear Problem There is pain in the left ear. This is a new problem. The current episode started in the past 7 days. The problem occurs constantly. The problem has been gradually worsening. There has been no fever.The pain is at a severity of 5/10. The pain is moderate. Associated symptoms include coughing, headaches, rhinorrhea and a sore throat. Pertinent negatives include no abdominal pain, diarrhea, ear discharge, hearing loss, neck pain, rash or vomiting. She has tried nothing for the symptoms. The treatment provided no relief. There is no history of a chronic ear infection, hearing loss or a tympanostomy tube. PAST MEDICAL HISTORY Diagnosis Date Bipolar 1 disorder, depressed (HCC) 80s Colon polyps 07/31/2001 TVA Eating disorder Endometriosis, site unspecified Endometriosis High blood sugar Knee pain Moderate dysplasia of cervix 80's Osteopenia 2011 PAST SURGICAL HISTORY Procedure Laterality Date CAUTERY CERVIX CRYOCAUTERY INITIAL/REPEAT COLONOSCOPY 08/05/2002 no polyp COLONOSCOPY & POLYPECTOMY 07/31/2001 TVA removed COLONOSCOPY FLX DX W/COLLJ SPEC WHEN PFRMD 07/22/2014 Colonoscopy ESOPHAGOGASTRODUODENOSCOPY TRANSORAL DIAGNOSTIC 07/22/2014 EGD HYSTERECTOMY HX 2001 LAVH/BSO KNEE LEFT OP SURGERY 3 surgeries KNEE RIGHT OP SURGERY 5 knee surgeies - last being TKA LAPS ABD PRTM&OMENTUM DX W/WO SPEC BR/WA SPX Laparoscopy 8-10 of them for endometriosis PAST SURGICAL HISTORY OF 2005 left wrist surgery PAST SURGICAL HISTORY OF Right 2016 ORIF right hip PAST SURGICAL HISTORY OF Right 11/2020 elbow fracture SHOULDER ARTHROSCOPY/SURGERY ALLERGIES Patient has no known allergies. MEDICATIONS amoxicillin-clavulanic acid (AUGMENTIN) 875-125 mg per tablet Take 1 tablet by mouth twice daily for 7 days. esomeprazole magnesium (NEXIUM ORAL) Take by mouth. Lactobacillus acidophilus (FLORAJEN ACIDOPHILUS) 20 billion cell cap Take 1 capsule by mouth once daily. omeprazole (PRILOSEC) 20 mg capsule Take 1 capsule by mouth twice daily. 1/2 hr before meal., can empty the capsule into food FAMILY HISTORY Problem Relation Age of Onset Diabetes Mother Emphysema Mother COPD Mother Cancer Mother throat and met to lung and brain Alcohol/Drug Mother Stroke Mother Heart disease Mother other (lung cancer) Mother other (throat cancer) Mother Cancer Father lung; colon; spinal cancer Colon Cancer Father Alcohol/Drug Father other (lung cancer) Father Heart disease Sister Allergies Maternal Grandmother Emphysema Maternal Grandfather Arthritis Paternal Grandmother Breast Cancer Paternal Grandmother None Sister None Sister Social History Tobacco Use Smoking status: Former Smoker Smokeless tobacco: Never Used Tobacco comment: quit in 2018 Substance Use Topics Alcohol use: No Comment: Patient indicated that she is binge drinker Sober since Drug use: No Review of Systems Constitutional: Positive for fatigue. Negative for chills, fever and weight loss. HENT: Positive for congestion, ear pain, rhinorrhea and sore throat. Negative for ear discharge andhearing loss. Eyes: Negative for pain, discharge, redness and itching. Respiratory: Positive for cough. Negative for apnea, choking, chest tightness, shortness of breath and wheezing. Cardiovascular: Negative for chest pain, palpitations and leg swelling. Gastrointestinal: Negative for abdominal pain, diarrhea and vomiting. Musculoskeletal: Negative for arthralgias, back pain, gait problem, myalgias and neck pain. Skin: Negative for color change, pallor and rash. Allergic/Immunologic: Negative for environmental allergies, food allergies and immunocompromised state. Neurological: Positive for headaches. Negative for dizziness and facial asymmetry. Hematological: Negative for adenopathy. Does not bruise/bleed easily. Psychiatric/Behavioral: Negative for agitation and behavioral problems. Objective BP 122/80 Pulse 85 Temp 37.2 C (98.9 F) (Tympanic) Resp 18 Wt 80.7 kg (178 lb) SpO2 97% BMI 24.14 kg/m Physical Exam Vitals and nursing note reviewed. Constitutional: General: She is not in acute distress. Appearance: Normal appearance. She is normal weight. She is not ill-appearing, toxic-appearing or diaphoretic. HENT: Head: Normocephalic and atraumatic. Right Ear: Ear canal and external ear normal. Left Ear: Ear canal and external ear normal. Ears: Comments: Left TM erythematous and slightly bulging. Nose: Nose normal. No congestion or rhinorrhea. Mouth/Throat: Mouth: Mucous membranes are moist. Pharynx: No oropharyngeal exudate or posterior oropharyngeal erythema. Eyes: General: Right eye: No discharge. Left eye: No discharge. Extraocular Movements: Extraocular movements intact. Conjunctiva/sclera: Conjunctivae normal. Pupils: Pupils are equal, round, and reactive to light. Cardiovascular: Rate and Rhythm: Normal rate and regular rhythm. Pulses: Normal pulses. Heart sounds: Normal heart sounds. No murmur heard. No friction rub. Pulmonary: Effort: Pulmonary effort is normal. No respiratory distress. Breath sounds: Normal breath sounds. No stridor. No wheezing, rhonchi or rales. Chest: Chest wall: No tenderness. Abdominal: General: Abdomen is flat. There is no distension. Palpations: Abdomen is soft. There is no mass. Tenderness: There is no abdominal tenderness. There is no right CVA tenderness, left CVA tenderness, guarding or rebound. Hernia: No hernia is present. Musculoskeletal: General: No swelling, tenderness, deformity or signs of injury. Normal range of motion. Cervical back: Normal range of motion and neck supple. No rigidity. Right lower leg: No edema. Left lower leg: No edema. Lymphadenopathy: Cervical: No cervical adenopathy. Skin: General: Skin is warm and dry. Capillary Refill: Capillary refill takes less than 2 seconds. Coloration: Skin is not jaundiced or pale. Findings: No bruising, erythema, lesion or rash. Neurological: General: No focal deficit present. Mental Status: She is alert and oriented to person, place, and time. Cranial Nerves: No cranial nerve deficit. Sensory: No sensory deficit. Motor: No weakness. Coordination: Coordination normal. Gait: Gait normal. Psychiatric: Mood and Affect: Mood normal. Behavior: Behavior normal. Thought Content: Thought content normal. Judgment: Judgment normal. Assessment and Plan ASSESSMENT/PLAN: 1. Acute otitis media, left - ICD9: 382.9, ICD10: H66.92 (primary diagnosis) - Will begin treatment with Amoxicillin for 7 days - The patient should also be given OTC cough and cold meds as needed, warm salt water gargles, throat lozenges and/or OTC throat spray as needed and nasal saline gtts and suction prn for the first 5-7 days of treatment. - Supportive care with plenty of fluids, rest, and analgesia prn. - Follow up in 3-5 days if symptoms persist or worsen. 2. URI, acute - ICD9: 465.9, ICD10: J06.9 - Symptomatic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 08/10/2021) [facility] History of Past illness Narrative* Problem Noted Date Resolved Date Aseptic necrosis of bone of hip, right 9 06/28/2018 Overview: Added automatically from request for surgery [id number] Traumatic arthritis of hip, right 06/06/2018 06/28/2018 Overview: Added automatically from request for surgery [id number] Fracture of femur, intertrochanteric, right, gi sed 10/19/2015 06/29/2016 Displaced intertrochanteric fracture of right femur, subsequent encounter for closed fracture with routine healing 10/19/2015 06/29/2016 documented as of this encounter (statuses as of 09/26/2021) [facility] History of Past illness Narrative* Problem Noted Date Resolved Date Aseptic necrosis of bone of hip, right 9 06/28/2018 Overview: Added automatically from request for surgery [id number] Traumatic arthritis of hip, right 06/06/2018 06/28/2018 Overview: Added automatically from request for surgery [id number] Fracture of femur, intertrochanteric, right, gi sed 10/19/2015 06/29/2016 Displaced intertrochanteric fracture of right femur, subsequent encounter for closed fracture with routine healing 10/19/2015 06/29/2016 documented as of this encounter (statuses as of 10/03/2021) [facility] History of Past illness Narrative* Problem Noted Date Resolved Date Aseptic necrosis of bone of hip, right 9 06/28/2018 Overview: Added automatically from request for surgery [id number] Traumatic arthritis of hip, right 06/06/2018 06/28/2018 Overview: Added automatically from request for surgery [id number] Fracture of femur, intertrochanteric, right, gi sed 10/19/2015 06/29/2016 Displaced intertrochanteric fracture of right femur, subsequent encounter for closed fracture with routine healing 10/19/2015 06/29/2016 documented as of this encounter (statuses as of 10/14/2021) [facility] History of Past illness Narrative* Problem Noted Date Resolved Date Aseptic necrosis of bone of hip, right 9 06/28/2018 Overview: Added automatically from request for surgery [id number] Traumatic arthritis of hip, right 06/06/2018 06/28/2018 Overview: Added automatically from request for surgery [id number] Fracture of femur, intertrochanteric, right, gi sed 10/19/2015 06/29/2016 Displaced intertrochanteric fracture of right femur, subsequent encounter for closed fracture with routine healing 10/19/2015 06/29/2016 documented as of this encounter (statuses as of 11/08/2021) [facility] History of Past illness Narrative* Problem Noted Date Resolved Date Aseptic necrosis of bone of hip, right 9 06/28/2018 Overview: Added automatically from request for surgery [id number] Traumatic arthritis of hip, right 06/06/2018 06/28/2018 Overview: Added automatically from request for surgery [id number] Fracture of femur, intertrochanteric, right, gi sed 10/19/2015 06/29/2016 Displaced intertrochanteric fracture of right femur, subsequent encounter for closed fracture with routine healing 10/19/2015 06/29/2016 documented as of this encounter (statuses as of 11/10/2021) [facility] of Past illness Narrative* Problem Noted Date Resolved Date Aseptic necrosis of bone of hip, right 9 06/28/2018 Overview: Added automatically from request for surgery [id number] Traumatic arthritis of hip, right 06/06/2018 06/28/2018 Overview: Added automatically from request for surgery [id number] Fracture of femur, intertrochanteric, right, gi sed 10/19/2015 06/29/2016 Displaced intertrochanteric fracture of right femur, subsequent encounter for closed fracture with routine healing 10/19/2015 06/29/2016 documented as of this encounter (statuses as of 11/23/2021) [facility] History of Past illness Narrative* Problem Noted Date Resolved Date Aseptic necrosis of bone of hip, right 9 06/28/2018 Overview: Added automatically from request for surgery [id number] Traumatic arthritis of hip, right 06/06/2018 06/28/2018 Overview: Added automatically from request for surgery [id number] Fracture of femur, intertrochanteric, right, gi sed 10/19/2015 06/29/2016 Displaced intertrochanteric fracture of right femur, subsequent encounter for closed fracture with routine healing 10/19/2015 06/29/2016 documented as of this encounter (statuses as of 12/12/2021) [facility] History of Past illness Narrative* Problem Noted Date Resolved Date Aseptic necrosis of bone of hip, right 9 06/28/2018 Overview: Added automatically from request for surgery [id number] Traumatic arthritis of hip, right 06/06/2018 06/28/2018 Overview: Added automatically from request for surgery [id number] Fracture of femur, intertrochanteric, right, gi sed 10/19/2015 06/29/2016 Displaced intertrochanteric fracture of right femur, subsequent encounter for closed fracture with routine healing 10/19/2015 06/29/2016 documented as of this encounter (statuses as of 01/25/2022) [facility] History of Past illness Narrative* Problem Noted Date Resolved Date Aseptic necrosis of bone of hip, right 9 06/28/2018 Overview: Added automatically from request for surgery [id number] Traumatic arthritis of hip, right 06/06/2018 06/28/2018 Overview: Added automatically from request for surgery [id number] Fracture of femur, intertrochanteric, right, gi sed 10/19/2015 06/29/2016 Displaced intertrochanteric fracture of right femur, subsequent encounter for closed fracture with routine healing 10/19/2015 06/29/2016 documented as of this encounter (statuses as of 01/30/2022) [facility] History of Past illness Narrative* Problem Noted Date Resolved Date Aseptic necrosis of bone of hip, right 9 06/28/2018 Overview: Added automatically from request for surgery [id number] Traumatic arthritis of hip, right 06/06/2018 06/28/2018 Overview: Added automatically from request for surgery [id number] Fracture of femur, intertrochanteric, right, gi sed 10/19/2015 06/29/2016 Displaced intertrochanteric fracture of right femur, subsequent encounter for closed fracture with routine healing 10/19/2015 06/29/2016 documented as of this encounter (statuses as of 03/22/2022) [facility] History of Past illness Narrative* Problem Noted Date Resolved Date Aseptic necrosis of bone of hip, right 9 06/28/2018 Overview: Added automatically from request for surgery [id number] Traumatic arthritis of hip, right 06/06/2018 06/28/2018 Overview: Added automatically from request for surgery [id number] Fracture of femur, intertrochanteric, right, gi sed 10/19/2015 06/29/2016 Displaced intertrochanteric fracture of right femur, subsequent encounter for closed fracture with routine healing 10/19/2015 06/29/2016 documented as of this encounter (statuses as of 04/24/2022) [facility] History of Past illness Narrative* Problem Noted Date Resolved Date Aseptic necrosis of bone of hip, right 9 06/28/2018 Overview: Added automatically from request for surgery [id number] Traumatic arthritis of hip, right 06/06/2018 06/28/2018 Overview: Added automatically from request for surgery [id number] Fracture of femur, intertrochanteric, right, gi sed 10/19/2015 06/29/2016 Displaced intertrochanteric fracture of right femur, subsequent encounter for closed fracture with routine healing 10/19/2015 06/29/2016 documented as of this encounter (statuses as of 05/02/2022) [facility] History of Past illness Narrative* Problem Noted Date Resolved Date Aseptic necrosis of bone of hip, right 9 06/28/2018 Overview: Added automatically from request for surgery [id number] Traumatic arthritis of hip, right 06/06/2018 06/28/2018 Overview: Added automatically from request for surgery [id number] Fracture of femur, intertrochanteric, right, gi sed 10/19/2015 06/29/2016 Displaced intertrochanteric fracture of right femur, subsequent encounter for closed fracture with routine healing 10/19/2015 06/29/2016 documented as of this encounter (statuses as of 05/17/2022) [facility] History of Past illness Narrative* Problem Noted Date Resolved Date Aseptic necrosis of bone of hip, right 9 06/28/2018 Overview: Added automatically from request for surgery [id number] Traumatic arthritis of hip, right 06/06/2018 06/28/2018 Overview: Added automatically from request for surgery [id number] Fracture of femur, intertrochanteric, right, gi sed 10/19/2015 06/29/2016 Displaced intertrochanteric fracture of right femur, subsequent encounter for closed fracture with routine healing 10/19/2015 06/29/2016 documented as of this encounter (statuses as of 06/13/2022) [facility] History of Past illness Narrative* Problem Noted Date Resolved Date Aseptic necrosis of bone of hip, right 9 06/28/2018 Overview: Added automatically from request for surgery [id number] Traumatic arthritis of hip, right 06/06/2018 06/28/2018 Overview: Added automatically from request for surgery [id number] Fracture of femur, intertrochanteric, right, gi sed 10/19/2015 06/29/2016 Displaced intertrochanteric fracture of right femur, subsequent encounter for closed fracture with routine healing 10/19/2015 06/29/2016 documented as of this encounter (statuses as of 06/16/2022) [facility] History of Past illness Narrative* Problem Noted Date Resolved Date Aseptic necrosis of bone of hip, right 9 06/28/2018 Overview: Added automatically from request for surgery [id number] Traumatic arthritis of hip, right 06/06/2018 06/28/2018 Overview: Added automatically from request for surgery [id number] Fracture of femur, intertrochanteric, right, gi sed 10/19/2015 06/29/2016 Displaced intertrochanteric fracture of right femur, subsequent encounter for closed fracture with routine healing 10/19/2015 06/29/2016 documented as of this encounter (statuses as of 08/07/2022) [facility] History of Past illness Narrative* Problem Noted Date Resolved Date Aseptic necrosis of bone of hip, right 9 06/28/2018 Overview: Added automatically from request for surgery [id number] Traumatic arthritis of hip, right 06/06/2018 06/28/2018 Overview: Added automatically from request for surgery [id number] Fracture of femur, intertrochanteric, right, gi sed 10/19/2015 06/29/2016 Displaced intertrochanteric fracture of right femur, subsequent encounter for closed fracture with routine healing 10/19/2015 06/29/2016 documented as of this encounter (statuses as of 08/09/2022) [facility] History of Past illness Narrative* Problem Noted Date Resolved Date Aseptic necrosis of bone of hip, right 9 06/28/2018 Overview: Added automatically from request for surgery [id number] Traumatic arthritis of hip, right 06/06/2018 06/28/2018 Overview: Added automatically from request for surgery [id number] Fracture of femur, intertrochanteric, right, gi sed 10/19/2015 06/29/2016 Displaced intertrochanteric fracture of right femur, subsequent encounter for closed fracture with routine healing 10/19/2015 06/29/2016 documented as of this encounter (statuses as of 08/10/2022) [facility] History of Past illness Narrative* Problem Noted Date Resolved Date Aseptic necrosis of bone of hip, right 9 06/28/2018 Overview: Added automatically from request for surgery [id number] Traumatic arthritis of hip, right 06/06/2018 06/28/2018 Overview: Added automatically from request for surgery [id number] Fracture of femur, intertrochanteric, right, gi sed 10/19/2015 06/29/2016 Displaced intertrochanteric fracture of right femur, subsequent encounter for closed fracture with routine healing 10/19/2015 06/29/2016 documented as of this encounter (statuses as of 08/14/2022) [facility] History of Past illness Narrative* Problem Noted Date Resolved Date Aseptic necrosis of bone of hip, right 9 06/28/2018 Overview: Added automatically from request for surgery [id number] Traumatic arthritis of hip, right 06/06/2018 06/28/2018 Overview: Added automatically from request for surgery [id number] Fracture of femur, intertrochanteric, right, gi sed 10/19/2015 06/29/2016 Displaced intertrochanteric fracture of right femur, subsequent encounter for closed fracture with routine healing 10/19/2015 06/29/2016 documented as of this encounter (statuses as of 08/23/2022) [facility] History of Past illness Narrative* Problem Noted Date Resolved Date Aseptic necrosis of bone of hip, right 9 06/28/2018 Overview: Added automatically from request for surgery [id number] Traumatic arthritis of hip, right 06/06/2018 06/28/2018 Overview: Added automatically from request for surgery [id number] Fracture of femur, intertrochanteric, right, gi sed 10/19/2015 06/29/2016 Displaced intertrochanteric fracture of right femur, subsequent encounter for closed fracture with routine healing 10/19/2015 06/29/2016 documented as of this encounter (statuses as of 09/07/2022) [facility] History of Past illness Narrative* Problem Noted Date Resolved Date Aseptic necrosis of bone of hip, right 9 06/28/2018 Overview: Added automatically from request for surgery [id number] Traumatic arthritis of hip, right 06/06/2018 06/28/2018 Overview: Added automatically from request for surgery [id number] Fracture of femur, intertrochanteric, right, gi sed 10/19/2015 06/29/2016 Displaced intertrochanteric fracture of right femur, subsequent encounter for closed fracture with routine healing 10/19/2015 06/29/2016 documented as of this encounter (statuses as of 10/13/2022) [facility] History of Past illness Narrative* Problem Noted Date Resolved Date Aseptic necrosis of bone of hip, right 9 06/28/2018 Overview: Added automatically from request for surgery [id number] Traumatic arthritis of hip, right 06/06/2018 06/28/2018 Overview: Added automatically from request for surgery [id number] Fracture of femur, intertrochanteric, right, gi sed 10/19/2015 06/29/2016 Displaced intertrochanteric fracture of right femur, subsequent encounter for closed fracture with routine healing 10/19/2015 06/29/2016 documented as of this encounter (statuses as of 11/09/2022) [facility] History of Past illness Narrative* Problem Noted Date Diagnosed Date Resolved Date Aseptic necrosis of bone of hip, right 06/06/2018 06/28/2018 Overview: Added automatically from request for surgery [id number] Traumatic arthritis of hip, right 06/06/2018 06/28/2018 Overview: Added automatically from request for surgery [id number] Fracture of femur, intertroc hanteric, right, closed 10/19/2015 06/29/2016 Displaced intertrochanteric fracture of right femur, subsequent encounter for closed fracture with routine healing 10/19/2015 06/29/2016 documented as of this encounter (statuses as of 12/01/2022) [facility] History of Past illness Narrative* Problem Noted Date Diagnosed Date Resolved Date Aseptic necrosis of bone of hip, right 06/06/2018 06/28/2018 Overview: Added automatically from request for surgery [id number] Traumatic arthritis of hip, right 06/06/2018 06/28/2018 Overview: Added automatically from request for surgery [id number] Fracture of femur, intertroc hanteric, right, closed 10/19/2015 06/29/2016 Displaced intertrochanteric fracture of right femur, subsequent encounter for closed fracture with routine healing 10/19/2015 06/29/2016 documented as of this encounter (statuses as of 03/02/2023) [facility] History of Past illness Narrative* Problem Noted Date Diagnosed Date Resolved Date Aseptic necrosis of bone of hip, right 06/06/2018 06/28/2018 Overview: Added automatically from request for surgery [id number] Traumatic arthritis of hip, right 06/06/2018 06/28/2018 Overview: Added automatically from request for surgery [id number] Fracture of femur, intertroc hanteric, right, closed 10/19/2015 06/29/2016 Displaced intertrochanteric fracture of right femur, subsequent encounter for closed fracture with routine healing 10/19/2015 06/29/2016 documented as of this encounter (statuses as of 03/21/2023) [facility] note* Diagnosis Hypothyroidism, unspecified type- Primary Periprosthetic fracture around internal prosthetic right knee joint, subsequent encounter Periprosthetic supracondylar fracture of femur, initial encounter Abnormality of gait Bipolar 1 disorder, mixed (HCC) Bipolar I disorder, most recent episode (or current) mixed, unspecified Moderate dysplasia of cervix Peptic ulcer disease Peptic ulcer, unspecified site, unspecified as acute or chronic, without mention of hemorrhage, perforation, or obstruction Screening breast examination Breast screening, unspecified Need for hepatitis C screening test Special screening examination for other specified viral diseases Screening for HIV (human immunodeficiency virus) Special screening examination for other specified viral diseases Urge incontinence [facility] Diagnosis Hypokalemia- Primary Hypopotassemia [facility]* Diagnosis Swelling of left side of face- Primary [facility]* Diagnosis Acute otitis media, left- Primary Unspecified otitis media URI, acute Acute upper respiratory infections of unspecified site [facility]* Diagnosis Peptic ulcer disease- Primary Peptic ulcer, unspecified site, unspecified as acute or chronic, without mention of hemorrhage, perforation, or obstruction Moderate dysplasia of cervix Female stress incontinence Gastrointestinal hemorrhage, unspecified gastrointestinal hemorrhage type Hypothyroidism, unspecified type Screening breast examination Breast screening, unspecified [facility]* Diagnosis Near syncope- Primary Syncope and collapse Fatigue, unspecified type Elevated glucose Other abnormal glucose Symptoms of upper respiratory infection (URI) [facility]* Diagnosis Vitamin B12 deficiency- Primary Other B-complex deficiencies Anemia, unspecified type Hypomagnesemia Disorders of magnesium metabolism documented [facility] this encounter [facility]* Diagnosis Anemia, unspecified type- Primary Hypomagnesemia Disorders of magnesium metabolism documented in this encounter [facility] note* Diagnosis Onset Date Resolution Status Closed fracture of left hip acute Fall acute Hypokalemia acute Left displaced femoral neck fracture acute History of acute alcohol intoxication [facility] Work Phone: evaluation note* Diagnosis Onset Date Resolution Status Anemia acute Closed fracture of left hip acute Closed fracture of left hip requiring operative repair acute Fall acute Hypokalemia acute Left displaced femoral neck fracture acute History of acute alcohol intoxication chronic History of bipolar disorder chronic [facility] Work Phone: evaluation note* Diagnosis Vitamin B12 deficiency- Primary Other B-complex deficiencies Folate deficiency Other B-complex deficiencies Iron deficiency anemia, unspecified iron deficiency anemia type Closed fracture of left hip with routine healing, subsequent encounter Hypothyroidism, unspecified type Hypomagnesemia Disorders of magnesium metabolism Hypokalemia Hypopotassemia Screening breast examination Breast screening, unspecified Bipolar 1 disorder, mixed (HCC) Bipolar I disorder, most recent episode (or current) mixed, unspecified Left arm pain Pain in limb Arm mass, left documented in this encounter [facility]* Diagnosis Hyperglycemia- Primary Other abnormal glucose Hypomagnesemia Disorders of magnesium metabolism Effusion of left elbow Effusion of upper arm joint Acute pain of left shoulder [facility]* Diagnosis Arm mass, left [facility] noteNo assessment information [facility]* Diagnosis Bronchitis- Primary Bronchitis, not specified as acute or chronic Screening for malignant neoplasm of cervix Screening for malignant neoplasm of the cervix Encounter for screening mammogram for malignant neoplasm of breast Other screening mammogram [facility]* Diagnosis Vitamin B12 deficiency- Primary Other B-complex deficiencies [facility]* Diagnosis Anemia, unspecified type- Primary [facility]* Diagnosis Peptic ulcer disease Peptic ulcer, unspecified site, unspecified as acute or chronic, without mention of hemorrhage, perforation, or obstruction [facility]* Diagnosis Bipolar 1 disorder, mixed (HCC)- Primary Bipolar I disorder, most recent episode (or current) mixed, unspecified Hypothyroidism, unspecified type Vitamin D deficiency Unspecified vitamin D deficiency Hypomagnesemia Disorders of magnesium metabolism [facility]* Diagnosis Encounter for screening mammogram for breast cancer [facility]* Diagnosis Bronchitis Bronchitis, not specified as acute or chronic documented in this encounter [facility] note* Diagnosis Effusion of left elbow Effusion of upper arm joint Acute pain of left shoulder documented in this encounter [facility] note* Diagnosis Left arm pain Pain in limb documented in this encounter [facility] note* Diagnosis Peptic ulcer disease Peptic ulcer, unspecified site, unspecified as acute or chronic, without mention of hemorrhage, perforation, or obstruction documented in this encounter [facility] note* Diagnosis NO SHOW- Primary documented in this encounter [facility] note* Diagnosis Encounter for screening mammogram for breast cancer documented in this encounter [facility] for referral (narrative)* Diagnostic Procedure Only (Routine) - Authorized Specialty Diagnoses / Procedures [facility] To [facility] Diagnoses Screening breast examination Procedures LIZZY SCREENING SCREENING MAMMOGRAPHY BI 2-VIEW BREAST INC CAD Naye Sheets MD [address] [place] [address] [facility] [address] [place] [address] Referral ID Status Reason Start Date Expiration Date Visits Requested Visits Authorized [id number] Authorized Auto-Generat ed Referral 11/23/2021 12/23/2022 1 1 [facility] for referral (narrative)* Outpatient Procedure (Routine) - Closed Specialty Diagnoses / Procedures [facility] Diagnoses Near syncope Procedures ECG COMPLETE ECG ROUTINE ECG W/LEAST 12 LDS W/I&R Meenakshi Baker APRN.CNP [address] [place] [address] [facility] [address] [place] [address] Referral ID Status Reason Start Date Expiration Date V isits Requested Visits Authorized [id number] Closed Auto-Generate d Referral 04/24/2022 04/24/2023 1 1 [facility] for referral (narrative)* Diagnostic Procedure Only (Routine) - Closed Specialty Diagnoses / Procedures [facility] To Contact [facility] Diagnoses Left arm pain Procedures XR HUMERUS 2V AP/LAT LEFT RADEX HUMERUS MINIMUM 2 VIEWS Naye Sheets MD [address] [place] [address] X[facility] Imaging Referral ID Status Reason Start Date Expiration Date V isits Requested Visits Authorized [id number] Closed Auto-Generate d Referral 08/09/2022 09/08/2023 1 1 * Diagnostic Procedure Only (Routine) - Authorized Specialty Diagnoses / Procedures Referred By Contac t Referred To Contact US IMAGING Diagnoses Arm mass, left Procedures US EXTREMITY MASS/FLUID COLLECTION LEFT Naye Sheets MD [address] [place] [address] Us Imaging Referral ID Status Reason Start Date Expiration Date Visits Requested Visits Authorized [id number] Authorized Auto-Generat ed Referral 08/09/2022 09/08/2023 1 1 * Diagnostic Procedure Only (Routine) - Authorized Specialty Diagnoses / Procedures Referred By Contac t Referred To Contact [facility] Diagnoses Screening breast examination Procedures LIZZY SCREENING SCREENING MAMMOGRAPHY BI 2-VIEW BREAST INC CAD Naye Sheets MD [address] [place] [address] [facility] [address] [place] [address] Referral ID Status Reason Start Date Expiration Date Visits Requested Visits Authorized [id number] Authorized Auto-Generat ed Referral 08/09/2022 09/08/2023 1 1 [facility] for referral (narrative)* Diagnostic Procedure Only (Routine) - Pending Review Specialty Diagnoses / Procedures Referred By Contac t Referred To Contact XR IMAGING Diagnoses Acute pain of left shoulder Procedures XR SHOULDER GENERAL 3V OR MORE AP/TRUE AP/OTHER LEFT RADEX SHOULDER COMPLETE MINIMUM 2 VIEWS Naye Sheets MD [address] [place] [address] Xr Imaging Referral ID Status Reason Start Date Expiration Date Visits Requested Visits Authorized [id number] Pending Review Auto-Generat ed Referral 08/10/2022 09/09/2023 1 1 * Diagnostic Procedure Only (Routine) - Pending Review Specialty Diagnoses / Procedures Referred By Contac t Referred To Contact XR IMAGING Diagnoses Effusion of left elbow Procedures XR ELBOW GENERAL 2V AP/LAT LEFT RADEX ELBOW 2 VIEWS Naye Sheets MD [address] [place] [address] Xr Imaging Referral ID Status Reason Start Date Expiration Date Visits Requested Visits Authorized [id number] Pending Review Auto-Generat ed Referral 08/10/2022 09/09/2023 1 1 [facility] for referral (narrative)* Diagnostic Procedure Only (Routine) - Closed Specialty Diagnoses / Procedures Referred By Contac t Referred To Contact US IMAGING Diagnoses Arm mass, left Procedures US EXTREMITY MASS/FLUID COLLECTION LEFT Naye Sheets MD [address] [place] [address] Us Imaging Referral ID Status Reason Start Date Expiration Date V isits Requested Visits Authorized [id number] Closed Auto-Generate d Referral 08/09/2022 09/08/2023 1 1 [facility] for referral (narrative)* Outpatient Procedure (Routine) - Pending Review Specialty Diagnoses / Procedures Referred By Contac t Referred To Contact [facility] Diagnoses Anemia, unspecified type Procedures EGD DIAGNOSTIC ESOPHAGOGASTRODUODENOSC OPY TRANSORAL DIAGNOSTIC Kristina Wang MD [address] [place] [address] [facility] [address] [place] [address] Referral ID Status Reason Start Date Expiration Date Visits Requested Visits Authorized [id number] Pending Review Auto-Generat ed Referral 11/30/2022 12/01/2023 1 1 * Outpatient Procedure (Routine) - Pending Review Specialty Diagnoses / Procedures Referred By Lilia t Referred To Contact [facility] Diagnoses Anemia, unspecified type Procedures COLONOSCOPY DIAGNOSTIC COLONOSCOPY FLX DX W/COLLJ SPEC WHEN Kristina Freedman MD [address] [place] [address] [facility] [address] [place] [address] Referral ID Status Reason Start Date Expiration Date Visits Requested Visits Authorized [id number] Pending Review Auto-Generat ed Referral 09/02/2023 12/01/2023 1 1 [facility] for referral (narrative)* Diagnostic Procedure Only (Routine) - Pending Review Specialty Diagnoses / Procedures Referred By Lilia delarosa Referred To Contact [facility] Diagnoses Encounter for screening mammogram for breast cancer Procedures LIZZY SCREENING SCREENING MAMMOGRAPHY BI 2-VIEW BREAST INC CAD Naye Sheets MD [address] [place] [address] [facility] [address] [place] [phone] Referral ID Status Reason Start Date Expiration Date Visits Requested Visits Authorized [id number] Pending Review Auto-Generat ed Referral 09/19/2023 10/18/2024 1 1 [facility] for referral (narrative)* Diagnostic Procedure Only (Routine) - Closed Specialty Diagnoses / Procedures Referred By Lilia t Referred To Contact XR IMAGING Diagnoses Acute pain of left shoulder Procedures XR SHOULDER GENERAL 3V OR MORE AP/TRUE AP/OTHER LEFT RADEX SHOULDER COMPLETE MINIMUM 2 VIEWS Naye Sheets MD [facility] [place] [address] [place] [address] Referral ID Status Reason Start Date Expiration Date V isits Requested Visits Authorized [id number] Closed Auto-Generate d Referral 08/10/2022 09/09/2023 1 1 * Diagnostic Procedure Only (Routine) - Closed Specialty Diagnoses / Procedures Referred By Contac t Referred To Contact XR IMAGING Diagnoses Effusion of left elbow Procedures XR ELBOW GENERAL 2V AP/LAT LEFT RADEX ELBOW 2 VIEWS Naye Sheets MD [address] [place] [address] [place] [address] Referral ID Status Reason Start Date Expiration Date V isits Requested Visits Authorized [id number] Closed Auto-Generate d Referral 08/10/2022 09/09/2023 1 1 [facility] for referral (narrative)* Diagnostic Procedure Only (Routine) - Closed Specialty Diagnoses / Procedures Referred By Contac t Referred To Contact XR IMAGING Diagnoses Left arm pain Procedures XR HUMERUS 2V AP/LAT LEFT RADEX HUMERUS MINIMUM 2 VIEWS Naye Sheets MD [address] [place], [place] [id number] [place] [address] Referral ID Status Reason Start Date Expiration Date V isits Requested Visits Authorized [id number] Closed Auto-Generate d Referral 08/09/2022 09/08/2023 1 1 [facility] for referral (narrative)No reason for referral information [facility] Work Phone: Reason for visit Narrative* Diagnostic Procedure Only (Routine) - Closed Specialty Diagnoses / Procedures Referred By Contac t Referred To Contact US IMAGING Diagnoses Arm mass, left Procedures US EXTREMITY MASS/[place] [address] [place] [address] Us Imaging Referral ID Status Reason Start Date Expiration Date V isits Requested Visits Authorized [id number] Closed Auto-Generate d Referral 08/09/2022 09/08/2023 1 1 [facility] for visit Narrative* Diagnostic Procedure Only (Routine) - Closed Specialty Diagnoses / Procedures Referred By Contac t Referred To Contact XR IMAGING Diagnoses Acute pain of left shoulder Procedures XR SHOULDER GENERAL 3V OR MORE AP/TRUE AP/OTHER LEFT RADEX SHOULDER COMPLETE MINIMUM 2 VIEWS Naye Sheets MD [address] [place] [address] [place] [address] Referral ID Status Reason Start Date Expiration Date V isits Requested Visits Authorized [id number] Closed Auto-Generate d Referral 08/10/2022 09/09/2023 1 1 [facility] for visit Narrative* Diagnostic Procedure Only (Routine) - Closed Specialty Diagnoses / Procedures Referred By Contac t Referred To Contact XR IMAGING Diagnoses Left arm pain Procedures XR HUMERUS 2V AP/LAT LEFT RADEX HUMERUS MINIMUM 2 VIEWS Naye Sheets MD [address] [place] [address] [place] [address] Referral ID Status Reason Start Date Expiration Date V isits Requested Visits Authorized [id number] Closed Auto-Generate d Referral 08/09/2022 09/08/2023 1 1 [facility] Summary Purpose Family History No Family History Records Found Relationship Condition Age at Onset Recorded Date/T pascual mother Alcohol abuse Unknown Coronary artery disease Unknown Cardiac disease Unknown Hypertension Unknown Myocardial infarction Unknown father Alcohol abuse Unknown Malignant neoplasm Unknown Advance Directives No Advanced Directives Records Found Date Activated Date Inactivated Comments 06/16/2024 1:56 PM 06/29/2024 12:04 AM Question Answer Comments Full Code Order Discussed With: Surrogate Luisanai on Maker Surrogate Decision Maker Name: Janna Benjamin Surrogate Decision Maker Date Activated Date Inactivated Comments 06/28/2018 1:44 PM 07/02/2018 3:44 PM Question Answer Comments Full Code Order Discussed With: Patient Documents on File Type Date Recorded Patient Sales Assistant Institutional Sales Expl anation Advance Directive(s) 07/22/2018 2:14 PM Advance Directive(s) 06/28/2018 8:20 AM Advance Directive(s) 06/14/2018 10:40 AM Advance Directive(s) 05/21/2018 1:21 PM Advance Directive(s) 09/11/2016 3:43 PM Latest Code Status on File Code Status Date Activated Date Inactivated Comments Full Code 06/28/2018 1:44 PM 07/02/2018 3:44 PM Full Code Order Discussed With: Patient Documents on File Type Date Recorded Patient Sales Assistant Institutional Sales Expl anation Advance Directive(s) 07/22/2018 2:14 PM Advance Directive(s) 06/28/2018 8:20 AM Advance Directive(s) 06/14/2018 10:40 AM Advance Directive(s) 05/21/2018 1:21 PM Advance Directive(s) 09/11/2016 3:43 PM Latest Code Status on File Code Status Date Activated Date Inactivated Comments Full Code 06/28/2018 1:44 PM 07/02/2018 3:44 PM Advance Directive Response Recorded Date/ Time Living Will No June 10 3:26pm Power of Ore Feeder No June 10, 2022 3:26pm Advance Directive Response Recorded Date/ Time Living Will No June 10 8:21pm Power of Ore Feeder No June 10, 2022 8:21pm Advance Directive Response Recorded Date/ Time Living Will No June 10 9:21pm Power of Ore Feeder No June 10, 2022 9:21pm Advance Directive Response Recorded Date/ Time Living Will No November 15, 2022 1 :55pm Power of Ore Feeder No November 15, 2022 1:55pm Latest Code Status on File Code Status Date Activated Date Inactivated Comments Full Code 06/28/2018 1:44 PM 07/02/2018 3:44 PM Question Answer Comments Full Code Order Discussed With: Patient Latest Code Status on File Code Status Date Activated Date Inactivated Comments Full Code 06/28/2018 1:44 PM 07/02/2018 3:44 PM Question Answer Comments Full Code Order Discussed With: Patient Date Activated Date Inactivated Comments 06/28/2018 1:44 PM 07/02/2018 3:44 PM Question Answer Comments Full Code Order Discussed With: Patient Date Activated Date Inactivated Comments 06/28/2018 1:44 PM 07/02/2018 3:44 PM Question Answer Comments Full Code Order Discussed With: Patient Date Activated Date Inactivated Comments 06/16/2024 1:56 PM Advance Directive Response Recorded Date/ Time Living Will No June 13 5:39pm Do you have a Healthcare Power of Ore Feeder? No June 13, 2024 5:39pm Living Will No August 26, 2024 2:26pm Do you have a Healthcare Power of Ore Feeder? No August 26, 2024 2:26pm Advance Directive Response Recorded Date/ Time Living Will No June 13 5:39pm Do you have a Healthcare Power of Ore Feeder? No June 13, 2024 5:39pm Living Will No August 26, 2024 10:34pm Do you have a Healthcare Power of Ore Feeder? No August 26, 2024 10:34pm Date Activated Date Inactivated Comments 06/16/2024 1:56 PM 06/29/2024 12:04 AM Question Answer Comments Full Code Order Discussed With: Surrogate Decisi on Maker Surrogate Decision Maker Name: Janna Benjamin Surrogate Decision Maker Date Activated Date Inactivated Comments 06/28/2018 1:44 PM 07/02/2018 3:44 PM Question Answer Comments Full Code Order Discussed With: Patient Reason for Referral Specialty Diagnoses / Procedures Referred By Contac t Referred To Contact Gynecology Diagnoses Moderate dysplasia of cervix Procedures CONSULT TO GYNECOLOGY OFFICE/OUTPATIENT [facility] 60-74 MINUTES Naye Sheets MD [address] [place] [address] Referral ID Status Reason Start Date Expiration Date Visits Requested Visits Authorized [id number] Authorized PCP Requested Referral Auto-Generate d Referral 08/05/2021 08/05/2022 1 1 Specialty Diagnoses / Procedures Referred By Contac t Referred To Contact [facility] IM[facility] Diagnoses Screening breast examination Procedures LIZZY SCREENING SCREENING MAMMOGRAPHY BI 2-VIEW BREAST INC CAD Naye Sheets MD [address] [place] [address] [facility] [address] [place] [address] Referral ID Status Reason Start Date Expiration Date Visits Requested Visits Authorized [id number] Authorized Auto-Generat ed Referral 08/05/2021 09/04/2022 1 1 Specialty Diagnoses / Procedures Referred By Contac t Referred To Contact General Surgery Diagnoses Anemia, unspecified type Procedures CONSULT TO GENERAL SURGERY OFFICE/OUTPATIENT [facility] MDM 60-74 MINUTES Meenakshi Baker APRN.CNP [address] [place] [address] Referral ID Status Reason Start Date Expiration Date V isits Requested Visits Authorized [id number] Closed PCP Requested Referral 04/25/2022 04/25/2023 1 1 Specialty Diagnoses / Procedures Referred By Contac t Referred To Contact Gynecology Diagnoses Screening for malignant neoplasm of cervix Procedures CONSULT TO GYNECOLOGY OFFICE/OUTPATIENT [facility] MDM 60-74 MINUTES Naye Sheets MD [address] [place] [address] Referral ID Status Reason Start Date Expiration Date Visits Requested Visits Authorized [id number] Authorized PCP Requested Referral Auto-Generate d Referral 10/13/2022 10/13/2023 1 1 Specialty Diagnoses / Procedures Referred By Lilia t Referred To Contact [facility] Diagnoses Encounter for screening mammogram for malignant neoplasm of breast Procedures LIZZY SCREENING SCREENING MAMMOGRAPHY BI 2-VIEW BREAST INC CAD Naye Sheets MD [address] [place] [address] [facility] [address] [place] [address] Referral ID Status Reason Start Date Expiration Date Visits Requested Visits Authorized [id number] Pending Review Auto-Generat ed Referral 10/13/2022 11/12/2023 1 1 Chief Complaint and Reason for Visit Chief Complaint LEFT FEMORAL NECK FR ACTURE, HYPOKALEMIA Reason for Visit Closed fracture of l eft hip Fall Hypokalemia Left displaced femoral neck fracture History of acute alcohol intoxication Chief Complaint LEFT FEMORAL NECK FR ACTURE, HYPOKALEMIA LEFT FEMORAL NECK FRACTURE, HYPOKALEMIA LEFT FEMORAL NECK FRACTURE, HYPOKALEMIA LEFT FEMORAL NECK FRACTURE, HYPOKALEMIA LEFT FEMORAL NECK FRACTURE, HYPOKALEMIA LEFT FEMORAL NECK FRACTURE, HYPOKALEMIA LEFT FEMORAL NECK FRACTURE, HYPOKALEMIA Reason for Visit Anemia Closed fracture of left hip Closed fracture of left hip requiring operative repair Fall Hypokalemia Left displaced femoral neck fracture History of acute alcohol intoxication History of bipolar disorder Chief Complaint LEFT FEMORAL NECK FR ACTURE, HYPOKALEMIA LEFT FEMORAL NECK FRACTURE, HYPOKALEMIA LEFT FEMORAL NECK FRACTURE, HYPOKALEMIA LEFT FEMORAL NECK FRACTURE, HYPOKALEMIA LEFT FEMORAL NECK FRACTURE, HYPOKALEMIA LEFT FEMORAL NECK FRACTURE, HYPOKALEMIA LEFT FEMORAL NECK FRACTURE, HYPOKALEMIA left calf Reason for Visit Anemia Closed fracture of left hip Closed fracture of left hip requiring operative repair Fall Hypokalemia Left displaced femoral neck fracture History of acute alcohol intoxication History of bipolar disorder Chief Complaint LEFT FEMUR / RX HERE Chief Complaint LEFT FEMUR / RX HERE FALL Chief Complaint Admit Date GENERAL ILLNESS June 13, 2024 3 :44pm ER FU July 23, 2024 12: 18pm GI BLEED, UTI August 26, 2024 6:3 3pm Reason for Visit Admit Date Alcoholic hepatitis July 23, 2024 12: 18pm Upper GI bleed July 23, 2024 12: 18pm Alcohol intoxication August 26, 2024 6: 33pm GI bleed August 26, 2024 6:3 3pm Upper GI bleed August 26, 2024 6:3 3pm Urinary tract infection August 26, 2024 6:33pm Chief Complaint Admit Date GENERAL ILLNESS June 13, 2024 3 :44pm ER FU July 23, 2024 12: 18pm GI BLEED, UTI August 26, 2024 6:3 3pm GI BLEED, UTI August 27, 2024 7:2 8am GI BLEED, UTI August 28, 2024 7:1 5am GI BLEED, UTI August 29, 2024 12: 09pm Reason for Visit Admit Date Alcoholic hepatitis July 23, 2024 12: 18pm Upper GI bleed July 23, 2024 12: 18pm Alcohol intoxication August 26, 2024 6: 33pm Alcoholic hepatitis August 26, 2024 6:3 3pm Anemia August 26, 2024 6:3 3pm Cholelithiasis August 26, 2024 6:3 3pm Dilated pancreatic duct August 26, 2024 6:33pm GI bleed August 26, 2024 6:3 3pm Upper GI bleed August 26, 2024 6:3 3pm Urinary tract infection August 26, 2024 6:33pm Medications Administered Section Active Administered Medications - up to 3 most recent administrations Medication Order MAR Action Action Date Dose Rate Site cyanocobalamin 1,000 mcg injection 1,000 mcg, INTRAMUSCULAR, EVERY 4 WEEKS, 12 doses, First dose on 05/01/22 at 0000, Last dose on Sun03/05/23 at 0000 Given 08/09/2022 10:04 AM EDT 1,000 mcg Deltoid, Right Given 05/29/2022 2:14 PM EST 1,000 mcg De ltoid, Right Active Administered Medications - up to 3 most recent administrations Medication Order MAR Action Action Date Dose Rate Site cyanocobalamin 1,000 mcg injection 1,000 mcg, INTRAMUSCULAR, EVERY 4 WEEKS, 12 doses, First dose on Sun05/01/22 at 0000, Last dose on Sun03/05/23 at 0000 Given 11/08/2022 3:33 PM EDT 1,000 mcg Deltoid, Right Given 08/09/2022 10:04 AM EDT 1,000 mcg D eltoid, Right Given 05/29/2022 2:14 PM EST 1,000 mcg De ltoid, Right Additional Source Comments INFORMATION SOURCE (unrecogn ized section and content) DATE CREATED AUTHOR 06/05/2019 [facility] DATE CREATED AUTHOR AUTHOR'S ORGANIZ ATION 11/17/2020 [facility] DATE CREATED AUTHOR AUTHOR'S ORGANIZ ATION 07/03/2021 [facility] DATE CREATED AUTHOR AUTHOR'S ORGANIZ ATION 08/27/2022 [facility] DATE CREATED AUTHOR AUTHOR'S ORGANIZ ATION 06/29/2024 [facility] DATE CREATED AUTHOR AUTHOR'S ORGANIZ ATION 09/21/2024 [facility] DATE CREATED AUTHOR AUTHOR'S ORGANIZ ATION 10/18/2024 [facility] Source Comments (unrecognize d section and content) In the event this informatio n is protected by the Federal Confidentiality of Alcohol and Drug Abuse Patient Records regulations: The Federal rules restrict any use of the information to criminally investigate or prosecute any alcohol or drug abuse patient.[facility] HealthcareIn the event this information is protected by the Federal Confidentiality of Alcohol and Drug Abuse Patient Records regulations: The Federal rules restrict any use of the information to criminally investigate or prosecute any alcohol or drug abuse patient.[facility] HealthcareIn the event this information is protected by the Federal Confidentiality of Alcohol and Drug Abuse Patient Records regulations: The Federal rules restrict any use of the information to criminally investigate or prosecute any alcohol or drug abuse patient.[facility] HealthcareIn the event this information is protected by the Federal Confidentiality of Alcohol and Drug Abuse Patient Records regulations: The Federal rules restrict any use of the information to criminally investigate or prosecute any alcohol or drug abuse patient.[facility] HealthcareIn the event this information is protected by the Federal Confidentiality of Alcohol and Drug Abuse Patient Records regulations: The Federal rules restrict any use of the information to criminally investigate or prosecute any alcohol or drug abuse patient.[facility] HealthcareIn the event this information is protected by the Federal Confidentiality of Alcohol and Drug Abuse Patient Records regulations: The Federal rules restrict any use of the information to criminally investigate or prosecute any alcohol or drug abuse patient.[facility] HealthcareIn the event this information is protected by the Federal Confidentiality of Alcohol and Drug Abuse Patient Records regulations: The Federal rules restrict any use of the information to criminally investigate or prosecute any alcohol or drug abuse patient.[facility] HealthcareIn the event this information is protected by the Federal Confidentiality of Alcohol and Drug Abuse Patient Records regulations: The Federal rules restrict any use of the information to criminally investigate or prosecute any alcohol or drug abuse patient.[facility] HealthcareIn the event this information is protected by the Federal Confidentiality of Alcohol and Drug Abuse Patient Records regulations: The Federal rules restrict any use of the information to criminally investigate or prosecute any alcohol or drug abuse patient.[facility] HealthcareIn the event this information is protected by the Federal Confidentiality of Alcohol and Drug Abuse Patient Records regulations: The Federal rules restrict any use of the information to criminally investigate or prosecute any alcohol or drug abuse patient.[facility] HealthcareIn the event this information is protected by the Federal Confidentiality of Alcohol and Drug Abuse Patient Records regulations: The Federal rules restrict any use of the information to criminally investigate or prosecute any alcohol or drug abuse patient.[facility] HealthcareIn the event this information is protected by the Federal Confidentiality of Alcohol and Drug Abuse Patient Records regulations: The Federal rules restrict any use of the information to criminally investigate or prosecute any alcohol or drug abuse patient.[facility] HealthcareIn the event this information is protected by the Federal Confidentiality of Alcohol and Drug Abuse Patient Records regulations: The Federal rules restrict any use of the information to criminally investigate or prosecute any alcohol or drug abuse patient.[facility] HealthcareIn the event this information is protected by the Federal Confidentiality of Alcohol and Drug Abuse Patient Records regulations: The Federal rules restrict any use of the information to criminally investigate or prosecute any alcohol or drug abuse patient.[facility] HealthcareIn the event this information is protected by the Federal Confidentiality of Alcohol and Drug Abuse Patient Records regulations: The Federal rules restrict any use of the information to criminally investigate or prosecute any alcohol or drug abuse patient.[facility] HealthcareIn the event this information is protected by the Federal Confidentiality of Alcohol and Drug Abuse Patient Records regulations: The Federal rules restrict any use of the information to criminally investigate or prosecute any alcohol or drug abuse patient.[facility] HealthcareIn the event this information is protected by the Federal Confidentiality of Alcohol and Drug Abuse Patient Records regulations: The Federal rules restrict any use of the information to criminally investigate or prosecute any alcohol or drug abuse patient.[facility] HealthcareIn the event this information is protected by the Federal Confidentiality of Alcohol and Drug Abuse Patient Records regulations: The Federal rules restrict any use of the information to criminally investigate or prosecute any alcohol or drug abuse patient.[facility] HealthcareIn the event this information is protected by the Federal Confidentiality of Alcohol and Drug Abuse Patient Records regulations: The Federal rules restrict any use of the information to criminally investigate or prosecute any alcohol or drug abuse patient.[facility] HealthcareIn the event this information is protected by the Federal Confidentiality of Alcohol and Drug Abuse Patient Records regulations: The Federal rules restrict any use of the information to criminally investigate or prosecute any alcohol or drug abuse patient.[facility] HealthcareIn the event this information is protected by the Federal Confidentiality of Alcohol and Drug Abuse Patient Records regulations: The Federal rules restrict any use of the information to criminally investigate or prosecute any alcohol or drug abuse patient.[facility] HealthcareIn the event this information is protected by the Federal Confidentiality of Alcohol and Drug Abuse Patient Records regulations: The Federal rules restrict any use of the information to criminally investigate or prosecute any alcohol or drug abuse patient.[facility] HealthcareIn the event this information is protected by the Federal Confidentiality of Alcohol and Drug Abuse Patient Records regulations: The Federal rules restrict any use of the information to criminally investigate or prosecute any alcohol or drug abuse patient.[facility] HealthcareIn the event this information is protected by the Federal Confidentiality of Alcohol and Drug Abuse Patient Records regulations: The Federal rules restrict any use of the information to criminally investigate or prosecute any alcohol or drug abuse patient.[facility] HealthcareIn the event this information is protected by the Federal Confidentiality of Alcohol and Drug Abuse Patient Records regulations: The Federal rules restrict any use of the information to criminally investigate or prosecute any alcohol or drug abuse patient.[facility] HealthcareIn the event this information is protected by the Federal Confidentiality of Alcohol and Drug Abuse Patient Records regulations: The Federal rules restrict any use of the information to criminally investigate or prosecute any alcohol or drug abuse patient.[facility] HealthcareIn the event this information is protected by the Federal Confidentiality of Alcohol and Drug Abuse Patient Records regulations: The Federal rules restrict any use of the information to criminally investigate or prosecute any alcohol or drug abuse patient.[facility] HealthcareIn the event this information is protected by the Federal Confidentiality of Alcohol and Drug Abuse Patient Records regulations: The Federal rules restrict any use of the information to criminally investigate or prosecute any alcohol or drug abuse patient.[facility] HealthcareIn the event this information is protected by the Federal Confidentiality of Alcohol and Drug Abuse Patient Records regulations: The Federal rules restrict any use of the information to criminally investigate or prosecute any alcohol or drug abuse patient.[facility] HealthcareIn the event this information is protected by the Federal Confidentiality of Alcohol and Drug Abuse Patient Records regulations: The Federal rules restrict any use of the information to criminally investigate or prosecute any alcohol or drug abuse patient.[facility] HealthcareIn the event this information is protected by the Federal Confidentiality of Alcohol and Drug Abuse Patient Records regulations: The Federal rules restrict any use of the information to criminally investigate or prosecute any alcohol or drug abuse patient.[facility] HealthcareIn the event this information is protected by the Federal Confidentiality of Alcohol and Drug Abuse Patient Records regulations: The Federal rules restrict any use of the information to criminally investigate or prosecute any alcohol or drug abuse patient.[facility] HealthcareIn the event this information is protected by the Federal Confidentiality of Alcohol and Drug Abuse Patient Records regulations: The Federal rules restrict any use of the information to criminally investigate or prosecute any alcohol or drug abuse patient.[facility] HealthcareIn the event this information is protected by the Federal Confidentiality of Alcohol and Drug Abuse Patient Records regulations: The Federal rules restrict any use of the information to criminally investigate or prosecute any alcohol or drug abuse patient.[facility] HealthcareIn the event this information is protected by the Federal Confidentiality of Alcohol and Drug Abuse Patient Records regulations: The Federal rules restrict any use of the information to criminally investigate or prosecute any alcohol or drug abuse patient.[facility] HealthcareIn the event this information is protected by the Federal Confidentiality of Alcohol and Drug Abuse Patient Records regulations: The Federal rules restrict any use of the information to criminally investigate or prosecute any alcohol or drug abuse patient.[facility] HealthcareIn the event this information is protected by the Federal Confidentiality of Alcohol and Drug Abuse Patient Records regulations: The Federal rules restrict any use of the information to criminally investigate or prosecute any alcohol or drug abuse patient.[facility] HealthcareIn the event this information is protected by the Federal Confidentiality of Alcohol and Drug Abuse Patient Records regulations: The Federal rules restrict any use of the information to criminally investigate or prosecute any alcohol or drug abuse patient.[facility] HealthcareIn the event this information is protected by the Federal Confidentiality of Alcohol and Drug Abuse Patient Records regulations: The Federal rules restrict any use of the information to criminally investigate or prosecute any alcohol or drug abuse patient.[facility] HealthcareIn the event this information is protected by the Federal Confidentiality of Alcohol and Drug Abuse Patient Records regulations: The Federal rules restrict any use of the information to criminally investigate or prosecute any alcohol or drug abuse patient.[facility] HealthcareIn the event this information is protected by the Federal Confidentiality of Alcohol and Drug Abuse Patient Records regulations: The Federal rules restrict any use of the information to criminally investigate or prosecute any alcohol or drug abuse patient.[facility] HealthcareIn the event this information is protected by the Federal Confidentiality of Alcohol and Drug Abuse Patient Records regulations: The Federal rules restrict any use of the information to criminally investigate or prosecute any alcohol or drug abuse patient.[facility] HealthcareIn the event this information is protected by the Federal Confidentiality of Alcohol and Drug Abuse Patient Records regulations: The Federal rules restrict any use of the information to criminally investigate or prosecute any alcohol or drug abuse patient.[facility] HealthcareIn the event this information is protected by the Federal Confidentiality of Alcohol and Drug Abuse Patient Records regulations: The Federal rules restrict any use of the information to criminally investigate or prosecute any alcohol or drug abuse patient.[facility] HealthcareIn the event this information is protected by the Federal Confidentiality of Alcohol and Drug Abuse Patient Records regulations: The Federal rules restrict any use of the information to criminally investigate or prosecute any alcohol or drug abuse patient.[facility] HealthcareIn the event this information is protected by the Federal Confidentiality of Alcohol and Drug Abuse Patient Records regulations: The Federal rules restrict any use of the information to criminally investigate or prosecute any alcohol or drug abuse patient.[facility] HealthcareIn the event this information is protected by the Federal Confidentiality of Alcohol and Drug Abuse Patient Records regulations: The Federal rules restrict any use of the information to criminally investigate or prosecute any alcohol or drug abuse patient.[facility] HealthcareIn the event this information is protected by the Federal Confidentiality of Alcohol and Drug Abuse Patient Records regulations: The Federal rules restrict any use of the information to criminally investigate or prosecute any alcohol or drug abuse patient.[facility] HealthcareIn the event this information is protected by the Federal Confidentiality of Alcohol and Drug Abuse Patient Records regulations: The Federal rules restrict any use of the information to criminally investigate or prosecute any alcohol or drug abuse patient.[facility] HealthcareIn the event this information is protected by the Federal Confidentiality of Alcohol and Drug Abuse Patient Records regulations: The Federal rules restrict any use of the information to criminally investigate or prosecute any alcohol or drug abuse patient.[facility] HealthcareIn the event this information is protected by the Federal Confidentiality of Alcohol and Drug Abuse Patient Records regulations: The Federal rules restrict any use of the information to criminally investigate or prosecute any alcohol or drug abuse patient.[facility] HealthcareIn the event this information is protected by the Federal Confidentiality of Alcohol and Drug Abuse Patient Records regulations: The Federal rules restrict any use of the information to criminally investigate or prosecute any alcohol or drug abuse patient.[facility] HealthcareIn the event this information is protected by the Federal Confidentiality of Alcohol and Drug Abuse Patient Records regulations: The Federal rules restrict any use of the information to criminally investigate or prosecute any alcohol or drug abuse patient.[facility] HealthcareIn the event this information is protected by the Federal Confidentiality of Alcohol and Drug Abuse Patient Records regulations: The Federal rules restrict any use of the information to criminally investigate or prosecute any alcohol or drug abuse patient.[facility] HealthcareIn the event this information is protected by the Federal Confidentiality of Alcohol and Drug Abuse Patient Records regulations: The Federal rules restrict any use of the information to criminally investigate or prosecute any alcohol or drug abuse patient.[facility] HealthcareIn the event this information is protected by the Federal Confidentiality of Alcohol and Drug Abuse Patient Records regulations: The Federal rules restrict any use of the information to criminally investigate or prosecute any alcohol or drug abuse patient.[facility] HealthcareIn the event this information is protected by the Federal Confidentiality of Alcohol and Drug Abuse Patient Records regulations: The Federal rules restrict any use of the information to criminally investigate or prosecute any alcohol or drug abuse patient.[facility] Reason for Visit (unrecogniz ed section and content) Reason Comments Orders Reason Comments Results Reason Comments Letter Reason Comments Facial Swelling left side of face sw ollen x 1 day Reason Comments Patient Request Patient Question Reason Comments fax coming from [facility] Reason Comments Sore Throat ST, FERMIN and ear pain x 1 week Reason Comments Follow Up Reason Comments Covid Vaccination Records Reason Onset Date Comments Pain 01/19/2022 Reason Comments Orders labs Reason Comments Forms Reason Comments Acute Visit Sore throat, cough, ears hurt since getting immunizations- flu, covid booster and shingles 5 weeks ago Reason Comments Results Orders Reason Comments Patient update/fall Reason Comments Home Health Orders Reason Comments Prescription Refills Handicap Placard Reason Comments Hospital F/U Reason Comments Results Reason Onset Date Comments DME for depends 03/10/2022 Reason Comments Cough Reason Comments B-12 Injection Reason Onset Date Comments Refill Request 03/02/2023 Reason Comments Orders Reason Comments Patient Update Reason Onset Date Comments Population Health Navigation Outreach 10/02/2023 [facility] and care gaps Reason Onset Date Comments Population Health Navigation Outreach 12/03/2023 [facility] Reason Onset Date Comments Population Health Navigation Outreach 02/01/2024 [facility] Reason Comments Med Change Request Reason Comments Letter No show letter #1 Reason Comments Letter No show letter #2 Reason Comments Appointment Reason Onset Date Comments Population Health Navigation Outreach 04/21/2024 [facility] [place] [facility] Reason Comments No Show Reason Comments Transition Of Care Reason Comments Transition Of Care Exclusion (SNF) Reason Comments FYI-No Action Needed Reason Comments reschedule appt from shelter visit Care Teams (unrecognized sec tion and content) Bookkeeping Clerks Supervisor Relationship Specialty Start Date End Date Naye Sheets MD [address] [place] [address] PCP - General Family Practice 10/24/12 Bookkeeping Clerks Supervisor Relationship Specialty Start Date End Date Naye Sheets MD [address] [place] [address] PCP - General Family Practice 10/24/12 Bookkeeping Clerks Supervisor Relationship Specialty Start Date End Date Naye Sheets MD [address] [place] [address] PCP - General Family Practice 10/24/12 Bookkeeping Clerks Supervisor Relationship Specialty Start Date End Date Naye Sheets MD [address] [place] [address] PCP - General Family Practice 10/24/12 Bookkeeping Clerks Supervisor Relationship Specialty Start Date End Date Naye Sheets MD [address] [place] [address] PCP - General Family Practice 10/24/12 Bookkeeping Clerks Supervisor Relationship Specialty Start Date End Date Naye Sheets MD [address] [place] [address] PCP - General Family Practice 10/24/12 Bookkeeping Clerks Supervisor Relationship Specialty Start Date End Date Naye Sheets MD [address] [place] [address] PCP - General Family Practice 10/24/12 Bookkeeping Clerks Supervisor Relationship Specialty Start Date End Date Naye Sheets MD [address] [place] [address] PCP - General Family Practice 10/24/12 Bookkeeping Clerks Supervisor Relationship Specialty Start Date End Date Naye Sheets MD [address] [place] [address] PCP - General Family Medicine 10/24/12 Bookkeeping Clerks Supervisor Relationship Specialty Start Date End Date Naye Sheets MD [address] [place] [address] PCP - General Family Medicine 10/24/12 Bookkeeping Clerks Supervisor Relationship Specialty Start Date End Date Naye Sheets MD [address] [place] [address] PCP - General Family Medicine 10/24/12 [employer] Clerks Supervisor Relationship Specialty Start Date End Date Naye Sheets MD [address] [place] [address] PCP - General Family Medicine 10/24/12 Team Status: Active Member Role Status Dates Dr. Naye Sheets MD Family Provider Active [facility] Primary Care Provider Active Team Status: Active Member Role Status Dates [facility] Primary Care Provider Active Dr. Mandeep Allison , Emergency Provider Active Dr. Renetta Recinos MD Admit Provider, Attending Prov ider Active [employer] Supervisor Relationship Specialty Start Date End Date Naye Sheets MD [address] [place] [address] PCP - General Family Medicine 10/24/12 [employer]er[employer] Supervisor Relationship Specialty Start Date End Date Naye Sheets MD [address] [address] PCP - General Family Medicine 10/24/12 Team Status: Active Member Role Status Dates [facility] Primary Care Provider Active Dr. Mandeep Allison DO Emergency Provider Active Dr. Renetta Recinos MD Admit Provider, Other Provider Active Dr. Leonard Weiner MD Other Provider Active Dr. Tiff Ramires MD Attending Provider Active Team Status: Active Member Role Status Dates [facility] Primary Care Provider Active Dr. Mandeep Allison DO Emergency Provider Active Dr. Renetta Recinos MD Admit Provider, Other Provider Active Dr. Leonard Weiner MD Other Provider Active Dr. Jerry Lopez MD Attending Provider, Other Provi roxy Active Team Status: Active Member Role Status Dates [facility] Primary Care Provider Active Dr. Mandeep Allison DO Emergency Provider Active Dr. Renetta Recinos MD Admit Provider, Other Provider Active Dr. Leonard Weiner MD Other Provider Active Dr. Tyrone Roach MD Attending Provider, Other Provider Active Dr. Jerry Lopez MD Other Provider Active Team Status: Inactive Member Role Status Dates Naye Hayneso Primary Care Provider Active Dr. Mandeep Allison , Emergency Provider Active Dr. Renetta Recinos MD Admit Provider, Other Provider Active Dr. Leonard Weiner MD Other Provider Active Dr. Tyrone Roach MD Attending Provider Active Dr. Jerry Lopez MD Other Provider Active Team Status: Active Member Role Status Dates Naye [place] Primary Care Provider Active Dr. Mandeep Allison , Emergency Provider Active Dr. Renetta Recinos MD Admit Provider, Other Provider Active Dr. Leonard Weiner MD Other Provider Active Dr. Tiff Ramires MD Active Dr. Jerry Lopez MD Attending Provider Active Team Status: Inactive Member Role Status Dates Naye [place] Primary Care Provider Active Ed Physician Provider Emergency Provider Active [employer] Supervisor Relationship Specialty Start Date End Date Naye Sheets MD [address] [place] [address] PCP - General Family Medicine 10/24/12 [employer] Supervisor Relationship Specialty Start Date End Date Naye Sheets MD [address] [place] [address] PCP - General Family Medicine 10/24/12 [employer]er[employer] Supervisor Relationship Specialty Start Date End Date Naye Sheets MD [address] [place] [address] PCP - General Family Medicine 10/24/12 [employer]er[employer] Supervisor Relationship Specialty Start Date End Date Naye Sheets MD [address] [place] [address] PCP - General Family Medicine 10/24/12 [employer]er[employer] Supervisor Relationship Specialty Start Date End Date Naye Sheets MD [address] [place] [address] PCP - General Family Medicine 10/24/12 Team Status: Active Member Role Status Dates Dr. Naye Sheets MD Family Provider Active Naye Hayneso HUONG Primary Care Provider Active Team Status: Inactive Member Role Status Dates Naye BORJA Primary Care Provider Active Dr. Leonard Weiner MD Attending Provider, Gabriel nair Active [employer] Supervisor Relationship Specialty Start Date End Date Naye Sheets MD [address] [place] [address] PCP - General Family Medicine 10/24/12 [employer]er[employer] Supervisor Relationship Specialty Start Date End Date Naye Sheets MD [address] [place] [address] PCP - General Family Medicine 10/24/12 Team Status: Active Member Role Status Dates Dr. Naye Sheets MD Family Provider Active Dr. Naye Sheets MD Primary Care Provider Active Team Status: Inactive Member Role Status Dates Dr. Jesus Flynn DO Emergency Provider Active Dr. Naye Sheets MD Primary Care Provider Active [employer] Supervisor Relationship Specialty Start Date End Date Naye Sheets MD [address] [place] [address] PCP - General Family Medicine 10/24/12 [employer]er[employer] Supervisor Relationship Specialty Start Date End Date Naye Sheets MD [address] [place] [address] PCP - General Family Medicine 10/24/12 [employer]er[employer] Supervisor Relationship Specialty Start Date End Date aNye Sheets MD [address] [place] [address] PCP - General Family Medicine 10/24/12 [employer]er[employer] Supervisor Relationship Specialty Start Date End Date Naye Sheets MD [address] [place] [address] PCP - General Family Medicine 10/24/12 [employer]er[employer] Supervisor Relationship Specialty Start Date End Date Naye Sheets MD [address] [place] [address] PCP - General Family Medicine 10/24/12 [employer]er[employer] Supervisor Relationship Specialty Start Date End Date Naye Sheets MD [address] [place] [address] PCP - General Family Medicine 10/24/12 [employer]er[employer] Supervisor Relationship Specialty Start Date End Date Naye Sheets MD [address] [place] [address] PCP - General Family Medicine 10/24/12 [employer]er[employer] Supervisor Relationship Specialty Start Date End Date Naye Sheets MD [address] [place] [address] PCP - General Family Medicine 10/24/12 [employer]er[employer] Supervisor Relationship Specialty Start Date End Date Naye Sheets MD [address] [place] [address] PCP - General Family Medicine 10/24/12 [employer]er[employer] Supervisor Relationship Specialty Start Date End Date Naye Sheets MD [address] [place] [address] PCP - General Family Medicine 10/24/12 [employer]er[employer] Supervisor Relationship Specialty Start Date End Date Naye Sheets MD [address] [place] [address] PCP - General Family Medicine 10/24/12 Meenakshi Baker, COLLECTIONS TECHNICIAN.QUARTER BACKER [address] [facility] [place] [address] Diagnostic Medical Sonographer Family Medicine 04/21/24 Natalie Kirkpatrick, COLLECTIONS TECHNICIAN.QUARTER BACKER [address] [place] [address] Diagnostic Medical Sonographer Family Medicine 04/21/24 [employer] Clerks Supervisor Relationship Specialty Start Date End Date Naye Sheets MD [address] [place] [address] PCP - General Family Medicine 10/24/12 Meenakshi Baker, COLLECTIONS TECHNICIAN.QUARTER BACKER [address] [facility] [place] [address] Diagnostic Medical Sonographer Family Medicine 04/21/24 Natalie Kirkpatrick APRN.QUARTER BACKER [address] [place] [address] Diagnostic Medical Sonographer Family Medicine 04/21/24 Book[employer] Clerks Supervisor Relationship Specialty Start Date End Date Naye Sheets MD [address] [place] [address] PCP - General Family Medicine 10/24/12 Meenakshi Baker APRN.QUARTER BACKER [address] [place] [address] Diagnostic Medical Sonographer Family Medicine 04/21/24 Natalie Kirkpatrick APRN.QUARTER BACKER [address] [place] [address] Diagnostic Medical Sonographer Family Medicine 04/21/24 Book[employer] Clerks Supervisor Relationship Specialty Start Date End Date Naye Sheets MD [address] [place] [address] PCP - General Family Medicine 10/24/12 Meenakshi Baker APRN.QUARTER BACKER [address] [place] [address] Diagnostic Medical Sonographer Family Medicine 04/21/24 Natalie Kirkpatrick COLLECTIONS TECHNICIAN.QUARTER BACKER [address] [place] [address] Diagnostic Medical Sonographer Family Medicine 04/21/24 [employer] Clerks Supervisor Relationship Specialty Start Date End Date Naye Sheets MD [address] [place] [address] PCP - General Family Medicine 10/24/12 Meenakshi Baker COLLECTIONS TECHNICIAN.QUARTER BACKER [address] [place] [address] Diagnostic Medical Sonographer Family Medicine 04/21/24 Natalie Kirkpatrick COLLECTIONS TECHNICIAN.QUARTER BACKER [address] [place] [address] Diagnostic Medical Sonographer Family Medicine 04/21/24 [employer] Cler[employer] Supervisor Relationship Specialty Start Date End Date Naye Sheets MD [address] [place] [address] PCP - General Family Medicine 10/24/12 Meenakshi Baker COLLECTIONS TECHNICIAN.QUARTER BACKER [address] [place] [address] Diagnostic Medical Sonographer Family Medicine 04/21/24 Natalie Kirkpatrick COLLECTIONS TECHNICIAN.QUARTER BACKER [address] [place] [address] Diagnostic Medical Sonographer Family Medicine 04/21/24 [employer] Cler[employer] Supervisor Relationship Specialty Start Date End Date Naye Sheets MD [address] [place] [address] PCP - General Family Medicine 10/24/12 Meenakshi Baker, COLLECTIONS TECHNICIAN.QUARTER BACKER [address] [place] [address] Diagnostic Medical Sonographer Family Medicine 04/21/24 Natalie Kirkpatrick COLLECTIONS TECHNICIAN.QUARTER BACKER [address] [place] [address] Diagnostic Medical Sonographer Family Medicine 04/21/24 Book[employer] Cler[employer] Supervisor Relationship Specialty Start Date End Date Naye Sheets MD [address] [place] [address] PCP - General Family Medicine 10/24/12 Meenakshi Baker COLLECTIONS TECHNICIAN.QUARTER BACKER [address] [place] [address] [facility] 04/21/24 Natalie Kirkpatrick APRN.[facility] [address] [place] [address] [facility] 04/21/24 Team Status: Active Member Role Status Dates Dr. Naye Sheets MD Primary Care Provider Active Team Status: Inactive Member Role Status Dates Dr. Naye Sheets MD Primary Care Provider Active Start: June 13, 2024 End: June 14, 2024 Jose Rodriguez MD Attending Provider Active Star t: June 13, 2024 End: June 14, 2024 Jose Rodriguez MD Emergency Provider Active Star t: June 13, 2024 End: June 14, 2024 Team Status: Inactive Member Role Status Dates Dr. Naye Sheets MD Primary Care Provider Active Start: July 23, 2024 End: July 23, 2024 Dr. Naye Sheets MD Referring Provider Active Start: July 23, 2024 End: July 23, 2024 Dr. Jerry Lopez MD Attending Provider Active Start: July 23, 2024 End: July 23, 2024 Team Status: Active Member Role Status Dates Dr. Naye Sheets MD Primary Care Provider Active Start: August 26, 2024 Dr. Jesus Flynn DO Emergency Provider Active Start: August 26, 2024 Dr. Tiff Ramires MD Admit Provider Active St art: August 26, 2024 Dr. Tiff Ramires MD Attending Provider Active Start: August 26, 2024 Dr. Tiff Ramires MD Other Provider Active St art: August 26, 2024 Team Status: Inactive Member Role Status Dates Dr. Naye Sheets MD Primary Care Provider Active Start: August 26, 2024 End: August 29, 2024 Dr. Jesus Flynn DO Emergency Provider Active Start: August 26, 2024 End: August 29, 2024 Dr. Tiff Ramires MD Admit Provider Active St art: August 26, 2024 End: August 29, 2024 Dr. Tiff Ramires MD Other Provider Active St art: August 26, 2024 End: August 29, 2024 Dr. Jerry Lopez MD Attending Provider Active Start: August 26, 2024 End: August 29, 2024 Dr. Deven Porter MD Other Provider Active Star t: August 26, 2024 End: August 29, 2024 Team Status: Active Member Role Status Dates Dr. Naye Sheets MD Primary Care Provider Active Start: August 27, 2024 Dr. Jesus Flynn DO Emergency Provider Active Start: August 27, 2024 Dr. Tiff Ramires MD Admit Provider Active St art: August 27, 2024 Dr. Tiff Ramires MD Other Provider Active St art: August 27, 2024 Dr. Deven Porter MD Attending Provider Active Start: August 27, 2024 Dr. Deven Porter MD Other Provider Active Star t: August 27, 2024 Team Status: Active Member Role Status Dates Dr. Naye Sheets MD Primary Care Provider Active Start: August 28, 2024 Dr. Jesus Flynn DO Emergency Provider Active Start: August 28, 2024 Dr. Tiff Ramires MD Admit Provider Active St art: August 28, 2024 Dr. Tiff Ramires MD Other Provider Active St art: August 28, 2024 Dr. Deven Porter MD Attending Provider Active Start: August 28, 2024 Dr. Deven Porter MD Other Provider Active Star t: August 28, 2024 Team Status: Active Member Role Status Dates Dr. Naye Sheets MD Primary Care Provider Active Start: August 28, 2024 Dr. Troy Self DO Attending Provider Active Start: August 28, 2024 Team Status: Active Member Role Status Dates Dr. Naye Sheets MD Primary Care Provider Active Start: August 29, 2024 Dr. Jesus Flynn DO Emergency Provider Active Start: August 29, 2024 Dr. Tiff Ramires MD Admit Provider Active St art: August 29, 2024 Dr. Tiff Ramires MD Other Provider Active St art: August 29, 2024 Dr. Jerry Lopez MD Attending Provider Active Start: August 29, 2024 Dr. Jerry Lopez MD Other Provider Active Sta rt: August 29, 2024 Dr. Deven Porter MD Other Provider Active Star t: August 29, 2024 Bookkeeping Clerks Supervisor Relationship Specialty Start Date End Date Naye Sheets MD [address] [place], [place] [address] PCP - General Family Medicine 10/24/12 08/19/24 Meenakshi Baker APRN.QUARTER BACKER [address] [place] [address] Diagnostic Medical Sonographer [facility] 04/21/24 08/19/24 Natalie Kirkpatrick APRN.QUARTER BACKER [address] [place], [place] [address] [facility] 08/19/24 Goals (unrecognized section and content) Goals may be documented in a n alternate sectionGoals may be documented in an alternate sectionGoals may be documented in an alternate sectionGoals may be documented in an alternate section FOR RECORDS PERTAINING TO PATIENTS WHO ARE OR HAVE BEEN ENROLLED IN A CHEMICAL DEPENDENCY/SUBSTANCEABUSE PROGRAM, SOME INFORMATION MAY BE OMITTED. This clinical summary was aggregated from multiple sources. Caution should be exercised in using it in the provision of clinical care. This summary normalizes information from multiple sources, and as a consequence, information in this document may materially change the coding, format and clinical context of patient data. In addition, data may be omitted in some cases. CLINICAL DECISIONS SHOULD BE BASED ON THE PRIMARY CLINICAL RECORDS. [facility]. provides no warranty or guarantee of the accuracy or completeness of information in this document.
[2024-10-28] MEDS: proCHLORPERazine 10 MG/2 ML Vial IV (03:48)
[2024-10-28] MEDS: Pantoprazole Sodium 80 MG in 0.9% Normal Saline (100mL Bag) 80 ML 10 MG CONT INF ×2 (03:49→17:53)
[2024-10-28 03:58] LABS: Lipase 19 U/L (13-75)
[2024-10-28 04:11] LABS: AST(SGOT) 57 U/L (<=31); Alanine Aminotransfer ALT/SGPT 17 U/L (<=34); Alkaline Phosphatase 240 U/L (35-104); Anion Gap 33 (5-15); BUN 7 mg/dL (4-19); BUN/Creat Ratio 9.8 RATIO (10-20); Bilirubin, Direct 0.21 mg/dL (0.00-0.30); Calcium,Total 9.6 mg/dL (7.6-11.0); Carbon Dioxide 22.3 mmol/L (21.0-32.0); Chloride 79 mmol/L (98-108); Creatinine, Serum 0.69 mg/dL (0.70-1.20); EST Glomerular Filtration Rate 96 (>60); Estimated Creatinine Clearance 86.38 ml/min (50-250); Globulin 3.7 g/dL (2.2-4.2); Glucose 301 mg/dL (70-99); Potassium 2.1 mmol/L (3.3-5.1); Protein, Total 6.7 g/dL (5.9-8.4); Sodium Level 134 mmol/L (133-145); Total Bilirubin 0.44 mg/dL (0.00-1.30)
[2024-10-28 04:25] LABS: Alcohol, Blood (Medical)-Serum 33.8 mg/dL (<=10.0)
--- NOTE | 2024-10-28 04:50 | RAD_ITS ---
PROCEDURE: CHEST 1 VIEW (PORTABLE) 10/28/2024 REASON FOR EXAM: HEMATEMESIS TECHNIQUE: Frontal view of the chest. COMPARISON: 10/02/2024. FINDINGS: The lungs are expanded. There is no demonstrated parenchymal abnormality. There is no demonstrated pleural abnormality. Unremarkable cardiac silhouette. Normal mediastinum and unruly. Normal visualized pulmonary arteries. Atheromatous plaques of the visualized aortic arch and descending thoracic aorta. Diffuse spondylosis of the visualized thoracic spine. Normal visualized ribs, clavicles. Degenerative joint disease. There is no demonstrated abnormality of the visualized soft tissue structures of the upper abdomen. RAD/Chest 1 View (Portable) IMPRESSION: No evidence for acute abnormality. Reading Location: [facility]
[2024-10-28 05:04] LABS: Magnesium 0.7 mg/dL (1.5-2.2)
[2024-10-28] MEDS: Magnesium Sulfate 4gm/100mL 4 GM/100 ML IV.SOLN. IV (05:41)
--- NOTE | 2024-10-28 05:41 | EKG12_ITS ---
Test Reason : Blood Pressure : */* mmHG Vent. Rate : 117 BPM Atrial Rate : 117 BPM P-R Int : 202 ms QRS Dur : 84 ms QT Int : 326 ms P-R-T Axes : 69 17 167 degrees QTcB Int : 454 ms Sinus tachycardia with occasional Premature ventricular complexes Abnormal ECG Confirmed by ARIA GASTON, ALPHONSE ([id number]), story editor FATMATA CONRAD ([id number]) on 10/28/2024 10:55:10 AM Referred By: Confirmed By: ALPHONSE KNAPP MD
--- NOTE | 2024-10-28 06:12 | EX.ED.DYSGE1 ---
HPI History of Present Illness Chief Complaint: Nausea/Vomiting Informant: patient and EMS Narrative Narrative: Patient is a 64-year-old female with past medical history of bipolar disorder as well as alcoholic hepatitis and alcohol abuse. She states that she drank alcohol on Sunday and then Sunday morning began with bouts of nausea and vomiting. She states that she believes she has had over 20 episodes of vomiting throughout the day. However this evening around 10 PM she states she noticed that her emesis was now dark/black and she has also had dark stool/diarrhea. She states she is concerned she has developed a GI bleed as she has had this in the past. She denies any history of bleeding disorder or blood thinner use. PFSH PFSH Medical History Cholelithiasis Anemia Migraines Difficulty walking Urge incontinence Acute cystitis with hematuria Muscle weakness Osteoarthritis Alcoholic hepatitis Alcoholic liver disease Acute respiratory failure with hypoxia Metabolic encephalopathy Major depression Protein calorie malnutrition Acute post-hemorrhagic anemia Dysphagia, oropharyngeal phase Malignant neoplasm of colon Ulcer Restless legs Injury of head and neck Anemia Alcohol abuse Bipolar disorder Hypothyroidism Osteoporosis Kidney stones GERD (gastroesophageal reflux disease) GI bleed Former smoker Home Medications ?Medication ?Instructions ?Recorded ?Last Taken ?Type ipratropium 0.5 mg-albuterol 3 mg 3 ml inhalation Q4H PRN shortness 07/23/24 Unknown History (2.5 mg base)/3 mL nebulization of breath soln magnesium glycinate 100 mg (as 100 mg PO BID 07/23/24 Unknown History glycinate) tablet (Mag Glycinate) magnesium oxide 400 mg PO QDAY 07/23/24 Unknown History pantoprazole 40 mg tablet,delayed 40 mg PO BID GERD 30 days #60 tabs 08/29/24 Unknown Rx release Allergy/AdvReac Type Severity Reaction Status Date / Time amoxicillin Allergy Intermediate Swelling, Verified 10/28/24 02:18 itching Family History Mother Alcohol abuse CAD (coronary artery disease) Heart disease Hypertension Myocardial infarction Father Alcohol abuse Cancer Surgical History History of total knee arthroplasty History of right hip replacement H/O total hysterectomy Social History household members: none Smoking Status: Never smoker alcohol intake: current alcohol intake frequency: 3 or more drinks per day details: Notes binge drinking, whiskey. substance use type: other details: Former cannabis usage. Stopped ~ 40 years ago. ROS ROS ED Constitutional Constitutional ED: Denies chills or fever(s) Eyes Eyes: Denies blurry vision or change in vision ENT ENT ED: Denies sore throat Cardiovascular Cardiovascular: Reports racing heartbeat; Denies chest pain Respiratory/Chest Respiratory/Chest: Denies cough or dyspnea Gastrointestinal Gastrointestinal: Reports abdominal pain, melena, nausea and vomiting; Denies diarrhea Genitourinary Genitourinary ED: Denies dysuria or hematuria Musculoskeletal Musculoskeletal: Denies back pain or myalgias Integumentary Denies rash Neurologic Neurologic: Denies headache(s) Hematologic/Lymphatic Hematologic/Lymphatic: Reports easy bleeding and easy bruising EXAM Physical Exam Const Vital Signs: 10/28/24 02:18 10/28/24 02:22 10/28/24 03:22 Temperature 97.5 F L 97.5 F L 97.9 F Temperature Source Temporal Temporal Oral Pulse Rate 117 H 117 H 115 H Respiratory Rate 16 16 19 H Blood Pressure 141/89 H 141/89 H 145/97 H Blood Pressure Mean 106 106 113 Pulse Ox 99 100 98 Oxygen Delivery Method Room Air Room Air Room Air 10/28/24 04:00 10/28/24 05:00 10/28/24 05:24 Temperature 97.9 F 97.9 F 97.9 F Temperature Source Oral Oral Pulse Rate 117 H 119 H 116 H Respiratory Rate 24 H 21 H 18 Blood Pressure 177/105 H 165/101 H 146/94 H Blood Pressure Mean 129 122 111 Pulse Ox 99 98 97 Oxygen Delivery Method Room Air Room Air 10/28/24 06:00 10/28/24 06:20 Temperature 97.9 F Temperature Source Oral Pulse Rate 115 H 113 H Respiratory Rate 22 H 25 H Blood Pressure 139/82 H 144/86 H Blood Pressure Mean 101 105 Pulse Ox 98 96 Oxygen Delivery Method Room Air Room Air Positive well nourished and well developed General Appearance ED: well developed; Negative for pallor HEENT HEENT Narrative: Normocephalic atraumatic No signs of dried blood or active bleeding in the posterior pharynx No airway edema or compromise Eyes PERRL and EOMs intact bilaterally General Eye ED: Negative for pale conjunctiva or scleral icterus Neck supple Neck Narrative: No nuchal rigidity or meningeal signs No subcutaneous emphysema palpated Resp normal respiratory effort and clear to auscultation bilaterally Cardio regular rhythm Rate: tachycardic and other Other Details: Tachycardic rate with regular rhythm There is an occasional ectopic beat noted Radial and carotid pulses are equal and symmetric GI normal to inspection, nondistended, normoactive bowel sounds, non-tender, non-distended and no masses GI Narrative: No voluntary guarding or rigidity or pulsatile mass No peritoneal signs Auscultation: normoactive bowel sounds Palpation: soft Narrative: Rectal exam displays no obvious external hemorrhoids or active bleeding. No anal fissure noted Rectal tone is normal. Stool is mucousy brown in color but Hemoccult positive Extremity normal to inspection Neuro oriented x3, CN's II-XII intact bilaterally and no sensory deficits noted Sensorium / Orientation: alert Motor Exam: strength 5/5 throughout Psych mental status grossly normal Skin no rashes or lesions noted General Skin Exam: Negative for jaundice or pallor MDM MDM MDM Narrative Medical decision making narrative: Patient arrived to the ER tachycardic and mildly hypertensive. She reports that she has been having discoloration to her emesis and stool for multiple hours. She does endorse she has had previous EGDs which showed active bleeding. With her history of alcohol use there is concern for esophageal varices but her recent EGD from October 03 of this year was reviewed and did not display any varices just erosive esophagitis. Therefore I do not feel need for octreotide at this time. As the patient is most likely having recurrent bleeding from her alcohol use and erosive esophagitis she was started on Protonix bolus and drip. In order to ensure she does not have acute blood loss anemia basic labs were obtained and in order to check for an area of lower GI bleeding a CTA of the abdomen and pelvis was ordered. Labs revealed the patient is hypokalemic and hypomagnesemic. Her lactic acid is elevated at 16 this is most likely secondary to dehydration and alcohol use. Without fever or leukocytosis I have low concern for sepsis and do not feel the need for IV antibiotics or blood cultures. A VBG was obtained based on the high lactic value and she is actually alkalotic with a pH of 7.53. She does not have cardiac dysrhythmia associated with the electrolyte abnormality. She was started on magnesium replacement as she will need this before potassium can be supplemented. The case was discussed with footwear machinery instructor Dr. Self. He agrees with continued treatment of the bleeding through Protonix drip and bolus based on his history with the patient and recent EGD. However as she will continue IV hydration as well as need for electrolyte replacement the patient will be admitted to the medical service. They were contacted and they do agree to accept the patient for continued care At this time she has multiple lab abnormalities but is awake alert and hemodynamically intact and therefore she will be admitted to PCU and not ICU History & Record Review Discussion w/independent historian: Patient Lab Data Attestation: I reviewed the patient's lab results. Labs: Laboratory Results - last 24 hr 10/28/24 10/28/24 10/28/24 02:45 03:13 03:22 WBC 8.5 RBC 4.62 Hgb 13.3 Hct 39.9 MCV 86.4 MCH 28.8 MCHC 33.3 RDW Std Deviation 60.4 H RDW Coeff of Angelo 19.4 H Plt Count 477 H MPV 9.3 Immature Gran % (Auto) 0.500 Neut % (Auto) 61.4 Lymph % (Auto) 29.8 [place] % (Auto) 7.6 Eos % (Auto) 0.2 Baso % (Auto) 0.5 Absolute Neuts (auto) 5.2 Absolute Lymphs (auto) 2.54 Nucleated RBC % 0 PT 16.0 H INR 1.3 APTT 29.8 Sodium 134 Potassium 2.1 L* Chloride 79 L Carbon Dioxide 22.3 Anion Gap 33 H BUN 7 Creatinine 0.69 L Estim Creat Clear Calc 86.38 Est GFR (MDRD) Non-Af 96 BUN/Creatinine Ratio 9.8 L Glucose 301 H Lactic Acid 16.0 H* Calcium 9.6 Phosphorus 2.5 L Magnesium 0.7 L* Total Bilirubin 0.44 Direct Bilirubin 0.21 AST 57 H ALT 17 Alkaline Phosphatase 240 H Total Protein 6.7 Albumin 3.0 L Globulin 3.7 Lipase 19 Ethyl Alcohol 33.8 H Blood Type Cancelled O POSITIVE Antibody Screen Cancelled NEGATIVE ABG Data ABG results: ABG 10/28/24 06:24 Specimen Type ERIC Sample Site Not entered VBG pH 7.53 H VBG pO2 42 H VBG HCO3 31 H VBG Total CO2 32 VBG O2 Sat (Calc) 83 H VBG Base Excess 8 H POC Mix VBG pCO2 Pt Tmp 37.0 L O2 Delivery Device Not entered Radiography Diagnostic Testing: Clinical Impression(s) from Imaging Studies Abdomen/Pelvis CTA 10/28/24 03:02 IMPRESSION: Gastritis. Multifocal thickening of the colon, more prominent in the sigmoid colon, probably colitis. Unchanged reflux esophagitis. No CT evidence of active bleeding during the time of the exam. Additional chronic findings as detailed above. Reading [facility] Chest X-Ray 10/28/24 04:50 IMPRESSION: No evidence for acute abnormality. Reading Location: [place] [address] Chest x-ray is interpreted by the emergency medicine physician reveals no acute infiltrate pneumothorax or pleural effusion Management Discussion w/another healthcare provider: Hospitalist and [employer] Discharge Plan Dx/Rx/DC Orders Clinical Impression: GI (gastrointestinal bleed), Hypothyroidism, Alcoholic hepatitis, Erosive esophagitis, Hematemesis, Acute hypokalemia, Hypomagnesemia Disposition Disposition: Acute Care Hospital [facility] Discharge Date/Time: 10/28/24 07:25
--- NOTE | 2024-10-28 06:15 | HP.PCM_ITS ---
HPI - General General Date of Admission: 10/28/24 Date of Service: 10/28/24 Chief Complaint: Nausea and hematemesis HPI Narrative ROZINA HUERTAS, is a 64 F who presents to the emergency room with chief complaint of nausea and vomiting. Onset of symptoms began yesterday as patient was vomiting copious amounts and unable to keep down food or liquid for the past 24 hours. She states in her emesis there have been large blood clots passed so she came into the emergency room for evaluation. Patient has significant past medical history of alcoholism and liver disease and has had previous EGD done by Dr. Self here in this hospital. Patient currently complains of generalized abdominal pain and discomfort but her nausea has improved since receiving medication in the emergency room. Initial laboratory studies of significance show a lactate level of 16, magnesium of 0.7 and potassium of 2. Blood alcohol is elevated as well and patient was unclear as to when her last alcohol intake was. CT abdomen pelvis result is pending at the time of my evaluation and chest x-ray is within normal limits. Patient apparently lives in an unclean environment and reportedly has poor hygiene. Patient currently denies any chest pain, fevers or chills or diarrhea. She will be admitted and treated for upper GI bleed with gastroenterology consultation. [facility] Medical History Cholelithiasis Anemia Migraines Difficulty walking Urge incontinence Acute cystitis with hematuria Muscle weakness Osteoarthritis Alcoholic hepatitis Alcoholic liver disease Acute respiratory failure with hypoxia Metabolic encephalopathy Major depression Protein calorie malnutrition Acute post-hemorrhagic anemia Dysphagia, oropharyngeal phase Malignant neoplasm of colon Ulcer Restless legs Injury of head and neck Anemia Alcohol abuse Bipolar disorder Hypothyroidism Osteoporosis Kidney stones GERD (gastroesophageal reflux disease) GI bleed Former smoker Home Medications ?Medication ?Instructions ?Recorded ?Last Taken ?Type ipratropium 0.5 mg-albuterol 3 mg 3 ml inhalation Q4H PRN shortness 07/23/24 Unknown History (2.5 mg base)/3 mL nebulization of breath soln magnesium glycinate 100 mg (as 100 mg PO BID 07/23/24 Unknown History glycinate) tablet (Mag Glycinate) magnesium oxide 400 mg PO QDAY 07/23/24 Unkn own History pantoprazole 40 mg tablet,delayed 40 mg PO BID GERD 30 days #60 tabs 08/29/24 Unknown Rx release Allergy/AdvReac Type Severity Reaction Status Date / Time amoxicillin Allergy Intermediate Swelling, Verified 10/28/24 02:18 itching Family History Mother Alcohol abuse CAD (coronary artery disease) Heart disease Hypertension Myocardial infarction Father Alcohol abuse Cancer Surgical History History of total knee arthroplasty History of right hip replacement H/O total hysterectomy Social History household members: none Smoking Status: Never smoker alcohol intake: current alcohol intake frequency: 3 or more drinks per day details: Notes binge drinking, whiskey. substance use type: other details: Former cannabis usage. Stopped ~ 40 years ago. ROS Constitutional Constitutional: Denies chills or fever(s) Eyes Eyes: Denies blurry vision ENT HEENT: Denies abnormal hearing Cardiovascular Cardiovascular: Denies chest pain Respiratory/Chest Respiratory/Chest: Denies shortness of breath at rest Gastrointestinal Gastrointestinal: Reports abdominal pain, hematemesis, nausea and vomiting Genitourinary Genitourinary: Denies dysuria Musculoskeletal Musculoskeletal: Denies back pain Integumentary Integumentary: Denies dry skin Neurologic Neurologic: Denies abnormal gait Psychiatric Psychiatric: Reports anxiety Vital Signs Vital Signs Vital Signs: 10/28/24 02:18 10/28/24 02:22 10/28/24 03:22 Temperature 97.5 F L 97.5 F L 97.9 F Temperature Source Temporal Temporal Oral Pulse Rate 117 H 117 H 115 H Respiratory Rate 16 16 19 H Blood Pressure 141/89 H 141/89 H 145/97 H Blood Pressure Mean 106 106 113 Pulse Ox 99 100 98 Oxygen Delivery Method Room Air Room Air Room Air 10/28/24 04:00 10/28/24 05:00 10/28/24 05:24 Temperature 97.9 F 97.9 F 97.9 F Temperature Source Oral Oral Pulse Rate 117 H 119 H 116 H Respiratory Rate 24 H 21 H 18 Blood Pressure 177/105 H 165/101 H 146/94 H Blood Pressure Mean 129 122 111 Pulse Ox 99 98 97 Oxygen Delivery Method Room Air Room Air 10/28/24 06:00 Temperature Temperature Source Pulse Rate 115 H Respiratory Rate 22 H Blood Pressure 139/82 H Blood Pressure Mean 101 Pulse Ox 98 Oxygen Delivery Method Room Air Weight Weight: 194 lb 3.636 oz Body Mass Index (BMI) 26.3 Physical Exam Const alert General Appearance: cooperative and well developed HEENT normocephalic and head/scalp atraumatic Eyes PERRL Neck no lymphadenopathy Lymph Lymphatic: no lymphadenopathy noted Resp normal respiratory effort, normal air movement and clear to auscultation bilaterally Cardio regular rate, regular rhythm, S1 normal heart sound and S2 normal heart sound Rate: tachycardic GI normal to inspection, nondistended, normoactive bowel sounds Inspection: abdominal distention Palpation: tender other (Generalized) Extremity normal capillary refill Skin General Skin Exam: no breakdown Neuro no focal motor deficits and no sensory deficits noted Psych cooperative and affect normal Results Lab / Micro Data 10/28/24 02:45 10/28/24 02:45 Labs: Laboratory Results - last 24 hr 10/28/24 02:45: WBC 8.5, RBC 4.62, Hgb 13.3, Hct 39.9, MCV 86.4, MCH 28.8, MCHC 33.3, RDW Std Deviation 60.4 H, RDW Coeff of Angelo 19.4 H, Plt Count 477 H, MPV 9.3, Immature Gran % (Auto) 0.500, Neut % (Auto) 61.4, Lymph % (Auto) 29.8, [place] % (Auto) 7.6, Eos % (Auto) 0.2, Baso % (Auto) 0.5, Absolute Neuts (auto) 5.2, Absolute Lymphs (auto) 2.54, Nucleated RBC % 0, PT 16.0 H, INR 1.3, APTT 29.8, Sodium 134, Potassium 2.1 L*, Chloride 79 L, Carbon Dioxide 22.3, Anion Gap 33 H , BUN 7, Creatinine 0.69 L, Estim Creat Clear Calc 86.38, Est GFR (MDRD) Non-Af 96, BUN/Creatinine Ratio 9.8 L, Glucose 301 H, Lactic Acid 16.0 H*, Calcium 9.6, Magnesium 0.7 L*, Total Bilirubin 0.44, Direct Bilirubin 0.21, AST 57 H, ALT 17, Alkaline Phosphatase 240 H, Total Protein 6.7, Albumin 3.0 L, Globulin 3.7, Lipase 19, Blood Type Cancelled, Antibody Screen Cancelled 10/28/24 03:13: Ethyl Alcohol 33.8 H 10/28/24 03:22: Blood Type O POSITIVE, Antibody Screen NEGATIVE Micro: Microbiology 10/28/24 03:54 Stool Stool Occult Blood (NOAH) - Final Occult Blood Positive Imaging Radiology Impression Chest X-Ray 10/28/24 04:50 IMPRESSION: No evidence for acute abnormality. Reading Location: [place] [address] Assessment & Plan Assessment/Plan (1) GI (gastrointestinal bleed): (2) Alcohol intoxication: PLAN: Plan 1 gastrointestinal bleed upper with nausea and vomiting?admit patient to progressive care unit, consult Dr. Self gastroenterology for evaluation and treatment of hematemesis in the setting of known alcohol cirrhosis disease. Patient will be made n.p.o., IV Protonix 40 mg twice daily, add Zofran as needed for nausea and initiate IV normal saline at a rate of 125 cc/h. 2. Hypomagnesia?replacement was ordered in the emergency room and initiated will recheck magnesium later today 3. Hypokalemia?order IV replacement and continue to check 4. Alcohol intoxication?cessation encouraged will add thiamine and folic acid and monitor for withdrawal symptoms 5. DVT prophylaxis?SCDs due to active gastrointestinal bleeding Charges/Coding Visit Charges Inpatient E&M: 17124 Init Hosp L2
[2024-10-28 06:29] LABS: Blood Gas Specimen Type VEN; O2 Delivery Device Not entered; SITE Not entered; VBG BASE EXCESS 8 mmol/L (-1.0-3.5); VBG Bicarbonate 31 mmol/L (22-26); VBG PO2 42 mmHg (25-40); VBG SO2 83 % (50-70); VBG TCO2 32 mmol/L (23-33); VBG pH 7.53 (7.32-7.42)
--- OUTSIDE RECORDS SUMMARY | 2024-10-28 06:37 | XMS RPT_ITS | CCD ---
Author Organization [facility] Care Team Providers Care Tattoo And Body Artist Name Role Phone Naye Sheets MD Primary [...] Naye Sheets MD Primary Care Provider Haagen SOLUTION LEAD.GROUNDS FOREMAN, Meenakshi Unavailable Suppan SOLUTION LEAD.GROUNDS FOREMAN, Natalie A Unavailable Suppan SOLUTION LEAD.GROUNDS FOREMAN, Natalie A Unavailable [phone] BOOGIE LILLY Admitting Unavailable LAZARO BURGOS Consulting [...] Tiff Alexander Other Provider Charlotte GASTON, Dr. Ramos Other Provider Unavailable Charlotte GASTON, Dr. Ramos Attending Provider Unavaila felicita Self DO, Dr. Simmons Attending Provider John GASTON, Dr. Edwards Other Provider Naye Sheets MD Primary Care Provider Haagen SOLUTION LEAD.GROUNDS FOREMAN, Meenakshi Unavailable Suppan SOLUTION LEAD.GROUNDS FOREMAN, Natalie A Unavailable NAYE SHEETS Attending Unavailable NAYE SHEETS Primary [...] Care Unava ilable Tiff Ramires Attending Unavailable [place] Primary Care Unavailable Jerry Lopez Attending Unavailable Naye Sheets Referring Unavailable KortneyNaye Primary Care Unavailable Troy Self Attending Unavailable [place] Creek[place]aye campoverde Primary Care Unavailable Jerry Lopez Referring Unavailable Jerry Lopez Attending Unavailable Naye Sheets Primary Care Unavailable Jose Rodriguez Attending Unavailable Allergies Allergy Classification Reported Allergen(s) Allergy Type Date of Onset Reaction(s) Facility (20 sources) Amoxicillin; Translations: [AMOXICILLIN] Drug Allergy 11-23-2021 [facility] (1 source) Amoxicillin Drug Allergy 10-02-2024 [facility] Repository Medications Current Medications Medication Drug Class(es) [...] Comment on above: [facility] Take 1 capsule by mo [...] by mouth once daily. Follow-up with your toll patrolman to decide on tapering down do not stop abruptly without plan for discontinuation with your toll patrolman 399 mL 06/29/2024 Active thiamine 100 mg [...] Comment on above: Take 1 capsule by [facility] once daily. 50 ml magnesium sulfate [...] Test Name Value Interpretation Reference Range Facility MR/FVTUCORO7mx 10-05-2024 MR/POSTOPAN2 [facility] Medical Records Department [address] [place] [address] Anesthesia Postop Eval II 10/05/24 1746 MR#: [id number] Acct: [id number] Name: KENYATTA CARRILLO Rep #: [id number] : 1960 64 From: Lefty Garcia MD [...] MD Cosign Signature: Date CC: Signed Normal [facility] MR/POSTOP.[facility] 10-04-2024 MR/[facility]OP.[facility] Medical Records Department [address] [place] [address] Anesthesia Postop Eval I 10/04/2443 MR#: [id number] Acct: [id number] Name: KENYATTA CARRILLO Rep #: [id number] : 1960 64 From: Lefty Garcia MD [...] MD Cosigner Signature: Date CC: Signed Normal [facility] Basic Metabolic Profile (BMP )on 10-03-2024 BUN/CRE 9.1 RATIO Low 10-20 [facility] Comment on above: Performed By: #### L 300.4310, L501.4020, M200.1000, L100.0100, L500.4050, L503.6005, L300.3900, L501.3620 #### [facility] [address] [place], [address] Calcium [Mass/Vol] 8.0 mg/dL Normal 7.6-11.[address] [facility] Comment on above: Performed By: #### L 300.4310, L501.4020, M200.1000, L100.0100, L500.4050, L503.6005, L300.3900, L501.3620 #### [facility] [address] [place], [address] Chloride [Moles/Vol] 101 mmol/L Normal 98-108 [facility] Comment on above: Performed By: #### L 300.4310, L501.4020, M200.1000, L100.0100, L500.4050, L503.6005, L300.3900, L501.3620 #### [facility] [address] [place], [address] CO2 [Moles/Vol] 24.5 mmol/L Normal 21.0-32.0 [facility] Comment on above: Performed By: #### L 300.4310, L501.4020, M200.1000, L100.0100, L500.4050, L503.6005, L300.3900, L501.3620 #### [facility] [address] [place], [address] Creatinine [Mass/Vol] 0.51 mg/dL Low 0.70-1.20 [facility] Comment on above: Performed By: #### L 300.4310, L501.4020, M200.1000, L100.0100, L500.4050, L503.6005, L300.3900, L501.3620 #### [facility] [address] [place], [address] ECRCL 79.83 ml/min Normal 50-250 [facility] Comment on above: Performed By: #### L 300.4310, L501.4020, M200.1000, L100.0100, L500.4050, L503.6005, L300.3900, L501.3620 #### [facility] [address] [place], [address] GAP 10 Normal 5-15 [facility] Comment on above: Performed By: #### L 300.4310, L501.4020, M200.1000, L100.0100, L500.4050, L503.6005, L300.3900, L501.3620 #### [facility] [address] [place], [address] GFR/1.73 sq M.predicted among non-blacks MDRD (S/P/Bld) [Vol rate/Area] 103 mL/min/{1.73_m2} Normal >60 [facility] Comment on above: Result Comment: mL/m in/1.73m2 CKD-EPI Creatinine Equation (2020) Performed By: #### L 300.4310, L501.4020, M200.1000, L100.0100, L500.4050, L503.6005, L300.3900, L501.3620 #### [facility] [address] [place], [address] Glucose [Mass/Vol] 106 mg/dL High 70-[address] [facility] Comment on above: Performed By: #### L 300.4310, L501.4020, M200.1000, L100.0100, L500.4050, L503.6005, L300.3900, L501.3620 #### [facility] [address] [place], [address] Potassium [Moles/Vol] 3.5 mmol/L Normal 3.3-5.1 [facility] Comment on above: Performed By: #### L 300.4310, L501.4020, M200.1000, L100.0100, L500.4050, L503.6005, L300.3900, L501.3620 #### [facility] [address] [place], [address] Sodium [Moles/Vol] 136 mmol/L Normal 133-[address] [facility] Comment on above: Performed By: #### L 300.4310, L501.4020, M200.1000, L100.0100, L500.4050, L503.6005, L300.3900, L501.3620 #### [facility] [address] [place], [address] Urea nitrogen [Mass/Vol] 5 mg/dL Normal 4-19 [facility] Comment on above: Performed By: #### L 300.4310, L501.4020, M200.1000, L100.0100, L500.4050, L503.6005, L300.3900, L501.3620 #### [facility] [address] [place], [address] Discharge Instructionon 09-12 Discharge Instruction [facility] Medical Records Department [address] [place] [address] Instructions for Home/Discharge Instructions 10/03/24 1606 MR#: [id number] Acct: [id number] Name: KENYATTA CARRILLO Rep #: [id number] : 1960 64 From: Fermin Calvo DO [...] CC: No Primary Care Physician Signed Normal [facility] EGD Reporton 10-03-2024 EGD Report [facility] Medical Records Department [address] [place] [address] EGD Report MR#: [id number] Acct: [id number] Name: KENYATTA CARRILLO Rep #: [id number] : 1960 64 From: Troy Self DO [...] BID indefinitely. Procedure Code(s): --- Professional --- 21011, 59, Small intestinal endoscopy, enteroscopy beyond second portion of duodenum, not including ileum; with control of bleeding (eg, injection, bipolar cautery, unipolar cautery, laser, heater probe, stapler, plasma senior maintenance mechanic) 07691, 51, Small intestinal endoscopy, enteroscopy beyond second portion of duodenum, not including ileum; with biopsy, single or multiple CPT copyright 2021 [employer]. All rights reserved. The codes documented in this report are preliminary and upon rehab tech review may be revised to meet current compliance requirements. Troy Self DO 10/03/2024 4:03:54 PM This report has been signed electronically. Number of Addenda: 0 Note Initiated On: 10/03/2024 3:40 PM 10/03/24 1604 Date Troy Self DO [facility] Signature: Date (if indicated) CC: No (more content not included)... Normal [facility] Immunohistochemical Stainson 10-03-2024 Immunohistochemical Stains Patient Age/Sex Location Account Attending Physician KENYATTA CARRILLO 64/F [facility] [id number] Dr. Fermin Calvo, Specimen: [id number] Received: 10/07/24 Status: ANDREINA Carrera Num: [id number] Spec Type: EGD BIOPSY Subm Dr: DO [...] developed and their performance characteristics determined by [facility]. They may not have been cleared [...] in aggregate. Submitted in toto in A1. [facility] 10-07-2024 CPT:91951,88287,20670,88 312 Patient Age/Sex Location Account Attending Physician KENYATTA CARRILLO 64/F U [id number] Dr. Fermin Calvo, DO Signed (signature on file) Dr. Laurie Poe MD 10/14/24 1537 [facility] Comment on above: Performed By: #### L 503.5510, L503.6005 #### [facility] [address] [place], [address] MR/CON.PCM.GIon 10-03-2024 MR/CON.PCM.GI [facility] Medical Records Department [address] [place] [address] Consultation - GI 10/03/24 1534 MR#: [id number] Acct: [id number] Name: KENYATTA CARRILLO Rep #: [id number] : 1960 64 From: Troy Friend DO PCP: Care Physician,No Primary Status:ADM IN Location: [place] [address] HPI Consult Data Date of Consult: 10/03/24 [...] to alcoholism. She complains of melanotic stools. [facility] Medical History Cholelithiasis Anemia Migraines Difficulty [...] / Micro (more content not included)... Normal [facility] MR/EUICWOTI8og 10-03-2024 MR/POSTOPAN2 [facility] Medical Records Department [address] [place] [address] Anesthesia Postop Eval II 10/03/24 1629 MR#: [id number] Acct: [id number] Name: KENYATTA CARRILLO Rep #: [id number] : 1960 64 From: Ganesh Rosario CRNA PCP: Care Physician,No Primary Status:ADM IN Y Race: C Location: [place] [address] Anesthesia Postop Eval I Sum Anesthesia Postop [...] CRNA Cosigner Signature: Date CC: Signed Normal [facility] 12 Lead EKGon 10-02-2024 12 Lead EKG [facility] Cardiovascular Services [address] [place] [address] 12 Lead EKG 10/02/24 1038 MR#: [id number] Acct: [id number] Name: KENYATTA CARRILLO Rep #: [id number] : 1960 64 From: Rachel Kaur MD Attending Dr: Dr. Fermin Calvo DO Status: D IS IN Ordering Dr: Jose Rodriguez MD Date: 10/02/24 Location: [facility] Sex: F C Admitted: 10/02/24 Test Reason [...] ECG Confirmed by PATRICIO GASTON, TOM ([id number]), online editor QUE POLANCO ([id number]) on 10/07/2024 6:51:38 AM Referred By: FRIDA Confirmed By: TOM KAUR MD 10/07/24 0651 Date Rachel Kaur MD CC: Dr. Jose Rodriguez MD; Dr. Fermin Calvo, ; No Primary Care Physician Signed Normal [facility] Basic Metabolic Profile (BMP )on 10-02-2024 BUN/CRE 7.9 RATIO Low 10-20 [facility] Comment on above: Performed By: #### L 300.4310, L501.4020, M200.1000, L100.0100, L500.4050, L503.6005, L300.3900, L501.3620 #### [facility] [address] [place], [address] Calcium [Mass/Vol] 7.8 mg/dL Normal 7.6-11.[address] [facility] Comment on above: Performed By: #### L 300.4310, L501.4020, M200.1000, L100.0100, L500.4050, L503.6005, L300.3900, L501.3620 #### [facility] [address] [place], [address] Chloride [Moles/Vol] 99 mmol/L Normal 98-108 [facility] Comment on above: Performed By: #### L 300.4310, L501.4020, M200.1000, L100.0100, L500.4050, L503.6005, L300.3900, L501.3620 #### [facility] [address] [place], [address] CO2 [Moles/Vol] 23.8 mmol/L Normal 21.0-32.0 [facility] Comment on above: Performed By: #### L 300.4310, L501.4020, M200.1000, L100.0100, L500.4050, L503.6005, L300.3900, L501.3620 #### [facility] [address] [place], [address] Creatinine [Mass/Vol] 0.68 mg/dL Low 0.70-1.20 [facility] Comment on above: Performed By: #### L 300.4310, L501.4020, M200.1000, L100.0100, L500.4050, L503.6005, L300.3900, L501.3620 #### [facility] [address] [place], [address] ECRCL 79.83 ml/min Normal 50-250 [facility] Comment on above: Performed By: #### L 300.4310, L501.4020, M200.1000, L100.0100, L500.4050, L503.6005, L300.3900, L501.3620 #### [facility] [address] [place], [address] GAP 11 Normal 5-15 [facility] Comment on above: Performed By: #### L 300.4310, L501.4020, M200.1000, L100.0100, L500.4050, L503.6005, L300.3900, L501.3620 #### [facility] [address] [place], [address] GFR/1.73 sq M.predicted among non-blacks MDRD (S/P/Bld) [Vol rate/Area] 96 mL/min/{1.73_m2} Normal >60 [facility] Comment on above: Result Comment: mL/m in/1.73m2 CKD-EPI Creatinine Equation (2020) Performed By: #### L 300.4310, L501.4020, M200.1000, L100.0100, L500.4050, L503.6005, L300.3900, L501.3620 #### [facility] [address] [place], [address] Glucose [Mass/Vol] 144 mg/dL High 70-[address] [facility] Comment on above: Performed By: #### L 300.4310, L501.4020, M200.1000, L100.0100, L500.4050, L503.6005, L300.3900, L501.3620 #### [facility] [address] [place], [address] Potassium [Moles/Vol] 3.4 mmol/L Normal 3.3-5.1 [facility] Comment on above: Performed By: #### L 300.4310, L501.4020, M200.1000, L100.0100, L500.4050, L503.6005, L300.3900, L501.3620 #### [facility] [address] [place], [address] Sodium [Moles/Vol] 134 mmol/L Normal 133-[address] [facility] Comment on above: Performed By: #### L 300.4310, L501.4020, M200.1000, L100.0100, L500.4050, L503.6005, L300.3900, L501.3620 #### [facility] [address] [place], [address] Urea nitrogen [Mass/Vol] 5 mg/dL Normal 4-19 [facility] Comment on above: Performed By: #### L 300.4310, L501.4020, M200.1000, L100.0100, L500.4050, L503.6005, L300.3900, L501.3620 #### [facility] [address] [place], [address] CBC W/Diff, Automatedon 05-2 2-2024 Absolute Lymph 1.47 X10 3/uL Normal 0.83-4.51 [facility] Comment on above: Performed By: #### L 501.5200, L500.4050, L100.0100 ####[facility] [address] [place], [address] Absolute Neut 2.2 X10 3/uL Normal 2.0-7.7 [facility] Comment on above: Performed By: #### L 501.5200, L500.4050, L100.0100 ####[facility] [address] [place], [address] Basophils/100 WBC (Bld) 0.7 % Normal 0-1 [facility] Comment on above: Performed By: #### L 501.5200, L500.4050, L100.0100 ####[facility] [address] [place], [address] Eosinophils/100 WBC (Bld) 2.7 % Normal 0-5 [facility] Comment on above: Performed By: #### L 501.5200, L500.4050, L100.0100 ####[facility] [address] [place], [address] Erythrocyte distribution width (RBC) [Ratio] 17.8 % High 11.6-14.6 [facility] Comment on above: Performed By: #### L 501.5200, L500.4050, L100.0100 ####[facility] [address] [place], [address] Hematocrit (Bld) [Volume fraction] 37.3 % Normal 37-47 [facility] Comment on above: Performed By: #### L 501.5200, L500.4050, L100.0100 ####[facility] [address] [place], [address] Hemoglobin (Bld) [Mass/Vol] 12.0 g/dL Normal 12.0-15.0 [facility] Comment on above: Performed By: #### L 501.5200, L500.4050, L100.0100 ####[facility] [address] [place], [address] IG% 0.400 Normal 0.0-0.9 [facility] Comment on above: Result Comment: IG% - Immature Granulocytes (promyelocytes, myelocytes and metamyelocytes) > 1% indicates that a LEFT SHIFT is Present. Performed By: #### L 501.5200, L500.4050, L100.0100 ####[facility] [address] [place], [address] Lymphocytes/100 WBC (Bld) 32.9 % Normal 19-41 [facility] Comment on above: Performed By: #### L 501.5200, L500.4050, L100.0100 ####[facility] [address] [place], [address] MCH (RBC) [Entitic mass] 28.7 pg Normal 27.0-32.0 [facility] Comment on above: Performed By: #### L 501.5200, L500.4050, L100.0100 ####[facility] [address] [place], [address] MCHC (RBC) [Mass/Vol] 32.2 g/dL Normal 32-36 [facility] Comment on above: Performed By: #### L 501.5200, L500.4050, L100.0100 ####[facility] [address] [place], [address] MCV (RBC) [Entitic vol] 89.2 fL Normal 81-99 [facility] Comment on above: Performed By: #### L 501.5200, L500.4050, L100.0100 ####[facility] [address] [place], [address] Monocytes/100 WBC (Bld) 13.9 % High 0-10 [facility] Comment on above: Performed By: #### L 501.5200, L500.4050, L100.0100 ####[facility] [address] [place], [address] Neutrophils/100 WBC (Bld) 49.4 % Normal 47-70 [facility] Comment on above: Performed By: #### L 501.5200, L500.4050, L100.0100 ####[facility] [address] [place], [address] Nucleated RBC (Bld) [#/Vol] 0 10*3/uL Normal 0-5 [facility] Comment on above: Performed By: #### L 501.5200, L500.4050, L100.0100 ####[facility] [address] [place], [address] Platelet mean volume (Bld) [Entitic vol] 9.9 fL Normal 6.2-12.0 [facility] Comment on above: Performed By: #### L 501.5200, L500.4050, L100.0100 ####[facility] [address] [place], [address] Platelets (Bld) [#/Vol] 207 10*3/uL Normal 150-450 [facility] Comment on above: Performed By: #### L 501.5200, L500.4050, L100.0100 ####[facility] [address] [place], [address] RBC (Bld) [#/Vol] 4.18 10*6/uL Low 4.2-5.4 [facility] Comment on above: Performed By: #### L 501.5200, L500.4050, L100.0100 ####[facility] [address] [place], [address] RDW SD 56.8 fl High 35.1-43.9 [facility] Comment on above: Performed By: #### L 501.5200, L500.4050, L100.0100 ####[facility] [address] [place], [address] WBC (Bld) [#/Vol] 4.5 10*3/uL Normal 4.4-11.[address] [facility] Comment on above: Performed By: #### L 501.5200, L500.4050, L100.0100 ####[facility] [address] [place], [address] Chest 1 View (Portable)on Chest 1 View (Portable) [facility] Imaging Services [address] [place] [address] Chest 1 View (Portable) MR#: [id number] Acct: [id number] Name: KENYATTA CARRILLO Rep #: [id number] : 1960 F 64 From: Casey tapia MD PCP: Care Physician,No Primary Status: REG ER Study: Chest 1 View (Portable) Date of Exam: 10/02/24 Exam# [id number] Ordering Dr: Jose Rodriguez MD PROCEDURE: CHEST [...] (Portable) IMPRESSION: No Acute Findings. Reading Location: [place] [address] CC: Dr. Jose Rodriguez MD; No Primary Care Physician Counselor/Art Therapist: Signed Normal [facility] Comprehensive Metabolic Prof ilon 10-02-2024 Albumin [Mass/Vol] 3.1 g/dL Low 3.4-4.[address] [facility] Comment on above: Performed By: #### L 501.5200, L500.4050, L100.0100 ####[facility] [address] [place], [address] Albumin/Globulin [Mass ratio] 0.8 {ratio} Low 0.9-2.4 [facility] Comment on above: Performed By: #### L 501.5200, L500.4050, L100.0100 ####[facility] [address] [place], [address] ALK PHOS 201 U/L High 35-104 [facility] Comment on above: Performed By: #### L 501.5200, L500.4050, L100.0100 ####[facility] [address] [place], [address] ALT [Catalytic activity/Vol] 35 U/L Normal <=34 [facility] Comment on above: Performed By: #### L 501.5200, L500.4050, L100.0100 ####[facility] [address] [place], [address] AST [Catalytic activity/Vol] 113 U/L High <=31 [facility] Comment on above: Performed By: #### L 501.5200, L500.4050, L100.0100 ####[facility] [address] [place], [address] Bilirubin [Mass/Vol] 0.94 mg/dL Normal 0.00-1.30 [facility] Comment on above: Performed By: #### L 501.5200, L500.4050, L100.0100 ####[facility] [address] [place], [address] BUN/CRE 8.1 RATIO Low 10-20 [facility] Comment on above: Performed By: #### L 501.5200, L500.4050, L100.0100 ####[facility] [address] [place], [address] Calcium [Mass/Vol] 8.6 mg/dL Normal 7.6-11.[address] [facility] Comment on above: Performed By: #### L 501.5200, L500.4050, L100.0100 ####[facility] [address] [place], [address] Chloride [Moles/Vol] 93 mmol/L Low 98-108 [facility] Comment on above: Performed By: #### L 501.5200, L500.4050, L100.0100 ####[facility] [address] [place], [address] CO2 [Moles/Vol] 28.2 mmol/L Normal 21.0-32.0 [facility] Comment on above: Performed By: #### L 501.5200, L500.4050, L100.0100 ####[facility] [address] [place], [address] Creatinine [Mass/Vol] 0.61 mg/dL Low 0.70-1.20 [facility] Comment on above: Performed By: #### L 501.5200, L500.4050, L100.0100 ####[facility] [address] [place], [address] ECRCL 79.83 ml/min Normal 50-250 [facility] Comment on above: Performed By: #### L 501.5200, L500.4050, L100.0100 ####[facility] [address] [place], [address] GAP 14 Normal 5-15 [facility] Comment on above: Performed By: #### L 501.5200, L500.4050, L100.0100 ####[facility] [address] [place], [address] GFR/1.73 sq M.predicted among non-blacks MDRD (S/P/Bld) [Vol rate/Area] 98 mL/min/{1.73_m2} Normal >60 [facility] Comment on above: Result Comment: mL/m in/1.73m2 CKD-EPI Creatinine Equation (2020) Performed By: #### L 501.5200, L500.4050, L100.0100 ####[facility] [address] [place], [address] Globulin (S) [Mass/Vol] 3.9 g/dL Normal 2.2-4.2 [facility] Comment on above: Performed By: #### L 501.5200, L500.4050, L100.0100 ####[facility] [address] [place], [address] Glucose [Mass/Vol] 139 mg/dL High 70-[address] [facility] Comment on above: Performed By: #### L 501.5200, L500.4050, L100.0100 ####[facility] [address] [place], [address] Potassium [Moles/Vol] 2.4 mmol/L Invalid Interpretation Code 3.3-5.1 [facility] Comment on above: Result Comment: Crit ical Result(s) Called at 1057: by: BELA RAJPUT TO theeventwall. ??Results read back by same. Performed By: #### L 501.5200, L500.4050, L100.0100 ####[facility] [address] [place], [address] Sodium [Moles/Vol] 135 mmol/L Normal 133-[address] [facility] Comment on above: Performed By: #### L 501.5200, L500.4050, L100.0100 ####[facility] [address] [place], [address] T PROT 7.0 g/dL Normal 5.9-8.4 [facility] Comment on above: Performed By: #### L 501.5200, L500.4050, L100.0100 ####[facility] [address] [place], [address] Urea nitrogen [Mass/Vol] 5 mg/dL Normal 4-19 [facility] Comment on above: Performed By: #### L 501.5200, L500.4050, L100.0100 ####[facility] [address] [place], [address] Emergency Department Summary on 10-02-2024 Emergency Department Summary [facility] Medical Records Department [address] [place] [address] Emergency Department Summary 10/02/24 MR#: [id number] Acct: [id number] Name: KENYATTA CARRILLO Rep #: [id number] : 1960 64 From: Jose Rodriguez MD [...] pedis pulse (more content not included)... Normal [facility] H AND P Exam - Hospitaliston 10-02-2024 H&P Exam - Hospitalist [facility] Medical Records Department [address] [place] [address] H P Exam - Hospitalist 10/02/24 1514 MR#: [id number] Acct: [id number] Name: KENYATTA CARRILLO Rep #: [id number] : 1960 64 From: Fermin Calvo DO PCP: Care Physician,No Primary Status:ADM IN Location: PCU [place] [address] HPI - General General Date of Admission: 10/02/24 Date of Service: 10/02/24 Chief Complaint: Generalized weakness HPI Narrative KENYATTA CARRILLO, is a 64 F who presents to the emergency room at [facility] with a chief complaint of generalized weakness, [...] will be seen by PT and OT [facility] Medical History Cholelithiasis Anemia Migraines Difficulty [...] swelling, myalgi (more content not included)... Normal [facility] Magnesiumon 10-02-2024 Magnesium [Mass/Vol] 1.8 mg/dL Normal 1.5-2.2 [facility] Comment on above: Performed By: #### L 300.4310, L501.4020, M200.1000, L100.0100, L500.4050, L503.6005, L300.3900, L501.3620 #### [facility] [address] [place], [address] Magnesium [Mass/Vol] 0.8 mg/dL Invalid Interpretation Code 1.5-2.2 [facility] Comment on above: Result Comment: Crit ical Result(s) Called at 1057: by: BELA RAJPUT TO JOSTIN. ??Results read back by same. Performed By: #### L 501.5200, L500.4050, L100.0100 ####[facility] [address] [place], [address] Urinalysis, Completeon 10-02 RBC 0-5 SEEN Normal 0-5 [facility] Comment on above: Order Comment: COLOR OF URINE MAY AFFECT DIPSTICK RESULTS.CLEAN CATCH Performed By: #### L 400.0001 ####[facility] [address] [place], [address] BACTERIA 1+ /hpf Normal None Seen [facility] Comment on above: Order Comment: COLOR OF URINE MAY AFFECT DIPSTICK RESULTS.CLEAN CATCH Performed By: #### L 400.0001 ####[facility] [address] [place], [address] CAST,HYALINE 0-5 SEEN Normal 0-5 [facility] Comment on above: Order Comment: COLOR OF URINE MAY AFFECT DIPSTICK RESULTS.CLEAN CATCH Performed By: #### L 400.0001 ####[facility] [address] [place], [address] Mucus Ql (Urine sed) 2+ /hpf Normal [facility] Comment on above: Order Comment: COLOR OF URINE MAY AFFECT DIPSTICK RESULTS.CLEAN CATCH Performed By: #### L 400.0001 ####[facility] [address] [place], [address] WBC 0-5 SEEN Normal 0-5 [facility] Comment on above: Order Comment: COLOR OF URINE MAY AFFECT DIPSTICK RESULTS.CLEAN CATCH Performed By: #### L 400.0001 ####[facility] [address] [place], [address] EPI,SQUAMOUS 0 SEEN Normal 5-10 [facility] Comment on above: Order Comment: COLOR OF URINE MAY AFFECT DIPSTICK RESULTS.CLEAN CATCH Performed By: #### L 400.0001 ####[facility] [address] [place], [address] CBC W/Diff, Automatedon 04-1 Absolute Neut Normal 2.0-7.7 [facility] Comment on above: Result Comment: Canc elled via OM: Order cancelled - Patient discharged Performed By: #### L 503.5510, L503.6005 #### [facility] [address] [place], [address] HCT Normal 37-47 [facility] Comment on above: Result Comment: Canc elled via OM: Order cancelled - Patient discharged Performed By: #### L 503.5510, L503.6005 #### [facility] [address] [place], [address] HGB Normal 12.0-15.0 [facility] Comment on above: Result Comment: Canc elled via OM: Order cancelled - Patient discharged Performed By: #### L 503.5510, L503.6005 #### [facility] [address] [place], [address] MCH Normal 27.0-32.0 [facility] Comment on above: Result Comment: Canc elled via OM: Order cancelled - Patient discharged Performed By: #### L 503.5510, L503.6005 #### [facility] [address] [place], [address] MCHC Normal 32-36 [facility] Comment on above: Result Comment: Canc elled via OM: Order cancelled - Patient discharged Performed By: #### L 503.5510, L503.6005 #### [facility] [address] [place], [address] MCV Normal 81-99 [facility] Comment on above: Result Comment: Canc elled via OM: Order cancelled - Patient discharged Performed By: #### L 503.5510, L503.6005 #### [facility] [address] [place], [address] NEUT% Normal 47-70 [facility] Comment on above: Result Comment: Canc elled via OM: Order cancelled - Patient discharged Performed By: #### L 503.5510, L503.6005 #### [facility] [address] [place], [address] PLT Normal 150-450 [facility] Comment on above: Result Comment: Canc elled via OM: Order cancelled - Patient discharged Performed By: #### L 503.5510, L503.6005 #### [facility] [address] [place], [address] RBC Normal 4.2-5.4 [facility] Comment on above: Result Comment: Canc elled via OM: Order cancelled - Patient discharged Performed By: #### L 503.5510, L503.6005 #### [facility] [address] [place], [address] RDW CV Normal 11.6-14.6 [facility] Comment on above: Result Comment: Canc elled via OM: Order cancelled - Patient discharged Performed By: #### L 503.5510, L503.6005 #### [facility] [address] [place], [address] RDW SD Normal 35.1-43.9 [facility] Comment on above: Result Comment: Canc elled via OM: Order cancelled - Patient discharged Performed By: #### L 503.5510, L503.6005 #### [facility] [address] [place], [address] WBC Normal 4.4-11.0 [facility] Comment on above: Result Comment: Canc elled via OM: Order cancelled - Patient discharged Performed By: #### L 503.5510, L503.6005 #### [facility] [address] [place], [address] Liver Profileon 08-30-2024 ALB Normal 3.4-4.8 [facility] Comment on above: Result Comment: Canc elled via OM: Order cancelled - Patient discharged Performed By: #### L 503.5510, L503.6005 #### [facility] [address] [place], [address] ALK PHOS Normal 35-104 [facility] Comment on above: Result Comment: Canc elled via OM: Order cancelled - Patient discharged Performed By: #### L 503.5510, L503.6005 #### [facility] [address] [place], [address] ALT Normal <=34 [facility] Comment on above: Result Comment: Canc elled via OM: Order cancelled - Patient discharged Performed By: #### L 503.5510, L503.6005 #### [facility] [address] [place], [address] AST Normal <=31 [facility] Comment on above: Result Comment: Canc elled via OM: Order cancelled - Patient discharged Performed By: #### L 503.5510, L503.6005 #### [facility] [address] [place], [address] D BILI Normal 0.00-0.30 [facility] Comment on above: Result Comment: Canc elled via OM: Order cancelled - Patient discharged Performed By: #### L 503.5510, L503.6005 #### [facility] [address] [place], [address] T BILI Normal 0.00-1.30 [facility] Comment on above: Result Comment: Canc elled via OM: Order cancelled - Patient discharged Performed By: #### L 503.5510, L503.6005 #### [facility] [address] [place], [address] T PROT Normal 5.9-8.4 [facility] Comment on above: Result Comment: Canc elled via OM: Order cancelled - Patient discharged Performed By: #### L 503.5510, L503.6005 #### [facility] [address] [place], [address] Absolute neutrophil countOrd ered By: Deven Porter on 08-29-2024 Neutrophils (Bld) [#/Vol] 1.7 10*3/uL Low 2.0-7.7 [facility] Anion gap in Serum or Plasma Ordered By: Deven Porter on 08-29-2024 Anion gap [Moles/Vol] 12 mmol/L 5-15 [facility] BUN/creatinine ratioOrdered By: Deven Porter on 08-29-2024 Urea nitrogen/Creatinine [Mass ratio] 7.9 mg/mg Low 10-20 [facility] Basic Metabolic Profile (BMP )on 08-29-2024 BUN/CRE 7.9 RATIO Low - [facility] Comment on above: Performed By: #### L 503.5510, L503.6005 #### [facility] [address] [place], [address] Calcium [Mass/Vol] 8.5 mg/dL Normal 7.6-11.[address] [facility] Comment on above: Performed By: #### L 503.5510, L503.6005 #### [facility] [address] [place], [address] Chloride [Moles/Vol] 102 mmol/L Normal 98-108 [facility] Comment on above: Performed By: #### L 503.5510, L503.6005 #### [facility] [address] [place], [address] CO2 [Moles/Vol] 22.5 mmol/L Normal 21.0-32.0 [facility] Comment on above: Performed By: #### L 503.5510, L503.6005 #### [facility] [address] [place], [address] Creatinine [Mass/Vol] 0.65 mg/dL Low 0.70-1.20 [facility] Comment on above: Performed By: #### L 503.5510, L503.6005 #### [facility] [address] [place], [address] ECRCL 88.17 ml/min Normal 50-250 [facility] Comment on above: Performed By: #### L 503.5510, L503.6005 #### [facility] [address] [place], [address] GAP 12 Normal 5-15 [facility] Comment on above: Performed By: #### L 503.5510, L503.6005 #### [facility] [address] [place], [address] GFR/1.73 sq M.predicted among non-blacks MDRD (S/P/Bld) [Vol rate/Area] 98 mL/min/{1.73_m2} Normal >60 [facility] Comment on above: Result Comment: mL/m in/1.73m2 CKD-EPI Creatinine Equation (2020) Performed By: #### L 503.5510, L503.6005 #### [facility] [address] [place], [address] Glucose [Mass/Vol] 83 mg/dL Normal 70-[address] [facility] Comment on above: Performed By: #### L 503.5510, L503.6005 #### [facility] [address] [place], [address] Potassium [Moles/Vol] 3.6 mmol/L Normal 3.3-5.1 [facility] Comment on above: Result Comment: Hemo lysis present, Results??could be affected. ?? Performed By: #### L 503.5510, L503.6005 #### [facility] [address] [place], [address] Sodium [Moles/Vol] 136 mmol/L Normal 133-[address] [facility] Comment on above: Performed By: #### L 503.5510, L503.6005 #### [facility] [address] [place], [address] Urea nitrogen [Mass/Vol] 5 mg/dL Normal 4-19 [facility] Comment on above: Performed By: #### L 503.5510, L503.6005 #### [facility] [address] [place], [address] Basophil percentageOrdered B y: Deven Porter on 08-29-2024 Basophils/100 WBC (Bld) 0.5 % 0-1 [facility] Bilirubin directOrdered By: Deven Porter on 08-29-2024 Bilirubin.direct [Mass/Vol] 0.18 mg/dL 0.00-0.30 [facility] Bilirubin, totalOrdered By: Deven Porter on 08-29-2024 Bilirubin [Mass/Vol] 0.42 mg/dL 0.00-1.30 [facility] CBC W/Diff, Automatedon 08-12 Absolute Lymph 1.62 X10 3/uL Normal 0.83-4.51 [facility] Comment on above: Performed By: #### L 503.5510, L503.6005 #### [facility] [address] [place], [address] Absolute Neut 1.7 X10 3/uL Low 2.0-7.7 [facility] Comment on above: Performed By: #### L 503.5510, L503.6005 #### [facility] [address] [place], [address] Basophils/100 WBC (Bld) 0.5 % Normal 0-1 [facility] Comment on above: Performed By: #### L 503.5510, L503.6005 #### [facility] [address] [place], [address] Eosinophils/100 WBC (Bld) 2.8 % Normal 0-5 [facility] Comment on above: Performed By: #### L 503.5510, L503.6005 #### [facility] [address] [place], [address] Erythrocyte distribution width (RBC) [Ratio] 14.3 % Normal 11.6-14.6 [facility] Comment on above: Performed By: #### L 503.5510, L503.6005 #### [facility] [address] [place], [address] Hematocrit (Bld) [Volume fraction] 32.8 % Low 37-47 [facility] Comment on above: Performed By: #### L 503.5510, L503.6005 #### [facility] [address] [place], [address] Hemoglobin (Bld) [Mass/Vol] 10.7 g/dL Low 12.0-15.0 [facility] Comment on above: Performed By: #### L 503.5510, L503.6005 #### [facility] [address] [place], [address] IG% 0.300 Normal 0.0-0.9 [facility] Comment on above: Result Comment: IG% - Immature Granulocytes (promyelocytes, myelocytes and metamyelocytes) > 1% indicates that a LEFT SHIFT is Present. Performed By: #### L 503.5510, L503.6005 #### [facility] [address] [place], [address] Lymphocytes/100 WBC (Bld) 41.9 % High 19-41 [facility] Comment on above: Performed By: #### L 503.5510, L503.6005 #### [facility] [address] [place], [address] MCH (RBC) [Entitic mass] 30.0 pg Normal 27.0-32.0 [facility] Comment on above: Performed By: #### L 503.5510, L503.6005 #### [facility] [address] [place], [address] MCHC (RBC) [Mass/Vol] 32.6 g/dL Normal 32-36 [facility] Comment on above: Performed By: #### L 503.5510, L503.6005 #### [facility] [address] [place], [address] MCV (RBC) [Entitic vol] 91.9 fL Normal 81-99 [facility] Comment on above: Performed By: #### L 503.5510, L503.6005 #### [facility] [address] [place], [address] Monocytes/100 WBC (Bld) 10.3 % High 0-10 [facility] Comment on above: Performed By: #### L 503.5510, L503.6005 #### [facility] [address] [place], [address] Neutrophils/100 WBC (Bld) 44.2 % Low 47-70 [facility] Comment on above: Performed By: #### L 503.5510, L503.6005 #### [facility] [address] [place], [address] Nucleated RBC (Bld) [#/Vol] 0 10*3/uL Normal 0-5 [facility] Comment on above: Performed By: #### L 503.5510, L503.6005 #### [facility] [address] [place], [address] Platelet mean volume (Bld) [Entitic vol] 9.4 fL Normal 6.2-12.0 [facility] Comment on above: Performed By: #### L 503.5510, L503.6005 #### [facility] [address] [place], [address] Platelets (Bld) [#/Vol] 205 10*3/uL Normal 150-450 [facility] Comment on above: Performed By: #### L 503.5510, L503.6005 #### [facility] [address] [place], [address] RBC (Bld) [#/Vol] 3.57 10*6/uL Low 4.2-5.4 [facility] Comment on above: Performed By: #### L 503.5510, L503.6005 #### [facility] [address] [place], [address] RDW SD 48.5 fl High 35.1-43.9 [facility] Comment on above: Performed By: #### L 503.5510, L503.6005 #### [facility] [address] [place], [address] WBC (Bld) [#/Vol] 3.9 10*3/uL Low 4.4-11.[address] [facility] Comment on above: Performed By: #### L 503.5510, L503.6005 #### [facility] [address] [place], [address] Carbon dioxide, total [Moles /volume] in Central venous bloodOrdered By: Deven Porter on 08-29-2024 CO2 [Moles/Vol] 22.5 mmol/L 21.0-32.0 [facility] Chloride assayOrdered By: Ricky Porter on 08-29-2024 Chloride [Moles/Vol] 102 mmol/L 98-108 [facility] Discharge Instructionon 08-12 Discharge Instruction [facility] Medical Records Department [address] [place] [address] Instructions for Home/Discharge Instructions 08/29/24 1104 MR#: [id number] Acct: [id number] Name: KENYATTA CARRILLO Rep #: [id number] : 1960 63 From: Jerry Lopez MD [...] Attending Provider: Jerry Lopez Primary Care Provider: aNye Sheets Consulting Providers: Tiff Ramires; Deven Porter [...] 1209 Jerry Lopez MD CC: Dr. Tiff Rmaires MD; Dr. Deven Porter MD; Dr. Naye Sheets MD Signed Normal [facility] Electrocardiogram reportOrde red By: Jose Hsieh on 08-29-2024 EKG study [facility] Cardiovascular Services [address] [place] [address] 12 Lead EKG 08/28/24 0518 MR#: [id number] Acct: [id number] Name: KENYATTA CARRILLO Rep #:[id number] : 1960 63 From: Jose martínez MD Attending Dr: Dr. Jerry Lopez MD Status: ADM IN Ordering Dr: Lefty Garcia MD Date: 08/12 12/05 Location[place] [facility] Sex: F C Admitted: 08/26/24 Test Reason [...] QT has shortened Confirmed by Jose Hsieh ([id number]), online editor QUE POLANCO ([id number]) on 57:07:33 AM Referred By: Confirmed By: Jose Hsieh 08/29/24 0707 Date _ Jose Hsieh MD CC: Dr. Lefty Garcia MD; Dr. Jerry Lopez MD; Dr. Naye Sheets MD ~ Signed [facility] Other Phone: Eosinophil percentageOrdered By: Deven Porter on 08-29-2024 Eosinophils/100 WBC (Bld) 2.8 % 0-5 [facility] Erythrocyte distribution wid th (RBC) [Ratio]Ordered By: Deven Porter on 08-29-2024 Erythrocyte distribution width (RBC) [Entitic vol] 48.5 fL High 35.1-43.9 [facility] Erythrocyte distribution wid th ratioOrdered By: Deven Porter on 08-29-2024 Erythrocyte distribution width (RBC) [Ratio] 14.3 % 11.6-14.6 [facility] Estimation of creatinine dilcia aranceOrdered By: Deven Porter on 08-29-2024 Estimated Creatinine Clearance Calc 88.17 ml/min 50-250 [facility] GFR/1.73 sq M.predicted arnel g non-blacks MDRD (S/P/Bld) [Vol rate/Area]Ordered By: Deven Porter on 08-29-2024 Estimated GFR (MDRD) Non-Af Amer 98 >60 [facility] Comment on above: mL/min/1.73m2 CKD-EP I Creatinine Equation (2020) Hematocrit Auto (Bld) [Volum e fraction]Ordered By: Deven Porter on 08-29-2024 Hematocrit (Bld) [Volume fraction] 32.8 % Low 37-47 [facility] Hemoglobin measurementOrdere d By: Deven Porter on 08-29-2024 Hemoglobin (Bld) [Mass/Vol] 10.7 g/dL Low 12.0-15.0 [facility] Immature granulocytes/100 WB C Auto (Bld)Ordered By: Deven Porter on 08-29-2024 Immature granulocytes/100 WBC (Bld) 0.300 % 0.0-0.9 [facility] Comment on above: IG% - Immature Granu locytes (promyelocytes, myelocytes and metamyelocytes) > 1% indicates that a LEFT SHIFT is Present. Laboratory - Chemistry and C hemistry - challengeOrdered By: Deven Porter on 08-29-2024 AST [Catalytic activity/Vol] 32 U/L <32 [facility] Liver Profileon 08-29-2024 Albumin [Mass/Vol] 2.8 g/dL Low 3.4-4.[address] [facility] Comment on above: Performed By: #### L 503.5510, L503.6005 #### [facility] [address] [place], [place], [address] ALK PHOS 134 U/L High 35-104 [facility] Comment on above: Performed By: #### L 503.5510, L503.6005 #### [facility] [address] [place], [address] ALT [Catalytic activity/Vol] 15 U/L Normal <=34 [facility] Comment on above: Performed By: #### L 503.5510, L503.6005 #### [facility] [address] [place], [address] AST [Catalytic activity/Vol] 32 U/L Normal <=31 [facility] Comment on above: Performed By: #### L 503.5510, L503.6005 #### [facility] [address] [place], [address] Bilirubin [Mass/Vol] 0.42 mg/dL Normal 0.00-1.30 [facility] Comment on above: Performed By: #### L 503.5510, L503.6005 #### [facility] [address] [place], [address] Bilirubin.direct [Mass/Vol] 0.18 mg/dL Normal 0.00-0.30 [facility] Comment on above: Performed By: #### L 503.5510, L503.6005 #### [facility] [address] [place], [address] Globulin (S) [Mass/Vol] 3.0 g/dL Normal 2.2-4.2 [facility] Comment on above: Performed By: #### L 503.5510, L503.6005 #### [facility] [address] [place], [address] T PROT 5.8 g/dL Low 5.9-8.4 [facility] Comment on above: Performed By: #### L 503.5510, L503.6005 #### [facility] [address] [place], [address] Lymphocytes Auto (Unsp spec) [#/Vol]Ordered By: Deven Porter on 08-29-2024 Lymphocytes (Bld) [#/Vol] 1.62 10*3/uL 0.83-4.51 [facility] Lymphocytes/100 WBC Auto (Un sp spec)Ordered By: Deven Porter on 08-29-2024 Lymphocytes/100 WBC (Bld) 41.9 % High 19-41 [facility] MCV (mean corpuscular volume ) determinationOrdered By: Deven Porter on 08-29-2024 MCV (RBC) [Entitic vol] 91.9 fL 81-99 [facility] Mean corpuscular hemoglobin (MCH) determinationOrdered By: Deven Porter on 08-29-2024 MCH (RBC) [Entitic mass] 30.0 pg 27.0-32.0 [facility] Mean corpuscular hemoglobin concentration (MCHC) determinationOrdered By: Deven Porter on 08-29-2024 MCHC (RBC) [Mass/Vol] 32.6 g/dL 32-36 [facility] Mean platelet volume determi nationOrdered By: Deven Porter on 08-29-2024 Platelet mean volume (Bld) [Entitic vol] 9.4 fL 6.2-12.0 [facility] Monocyte percentageOrdered B y: Deven Porter on 08-29-2024 Monocytes/100 WBC (Bld) 10.3 % High 0-10 [facility] Neutrophil percentageOrdered By: Deven Porter on 08-29-2024 Neutrophils/100 WBC (Bld) 44.2 % Low 47-70 [facility] Nucleated red blood cell per centageOrdered By: Deven Porter on 08-29-2024 Nucleated RBC/100 WBC (Bld) [Ratio] 0 % 0-5 [facility] Platelet countOrdered By: Ricky Porter on 08-29-2024 Platelets (Bld) [#/Vol] 205 10*3/uL 150-450 [facility] Potassium (Unsp spec) [Mass/ Vol]Ordered By: Deven Porter on 08-29-2024 Potassium [Moles/Vol] 3.6 mmol/L 3.3-5.1 [facility] Comment on above: Hemolysis present, R esults could be affected. RBC Auto (Bld) [#/Vol]Ordere d By: Deven Porter on 08-29-2024 RBC (Bld) [#/Vol] 3.57 10*6/uL Low 4.2-5.4 [facility] Serum creatinine measurement (mass/volume)Ordered By: Deven Porter on 08-29-2024 Creatinine [Mass/Vol] 0.65 mg/dL Low 0.70-1.20 [facility] Serum globulin measurementOr dered By: Deven Porter on 08-29-2024 Globulin (S) [Mass/Vol] 3.0 g/dL 2.2-4.2 [facility] Serum glucose measurement (m ass/volume)Ordered By: Deven Porter on 08-29-2024 Glucose [Mass/Vol] 83 mg/dL 70-[address] [facility] Serum or plasma alanine araiza otransferase (ALT) measurementOrdered By: Deven Porter on 08-29-2024 ALT [Catalytic activity/Vol] 15 U/L <35 [facility] Serum or plasma albumin abida urement (mass/volume)Ordered By: Deven Porter on 08-29-2024 Albumin [Mass/Vol] 2.8 g/dL Low 3.4-4.[address] [facility] Serum or plasma alkaline desi sphatase measurementOrdered By: Deven Porter on 08-29-2024 ALP [Catalytic activity/Vol] 134 U/L High 35-104 [facility] Serum or plasma calcium abida urement (mass/volume)Ordered By: Deven Porter on 08-29-2024 Calcium [Mass/Vol] 8.5 mg/dL 7.6-11.[address] [facility] Serum or plasma urea nitroge n measurement (mass/volume)Ordered By: Deven Porter on 08-29-2024 Urea nitrogen [Mass/Vol] 5 mg/dL 4-19 [facility] Sodium levelOrdered By: Benedict Porter on 08-29-2024 Sodium [Moles/Vol] 136 mmol/L 133-145 [facility] [facility] Total proteinOrdered By: Severo Porter on 08-29-2024 Protein [Mass/Vol] 5.8 g/dL Low 5.9-8.[address] [facility] White blood cell (WBC) count Ordered By: Deven Porter on 08-29-2024 WBC (Bld) [#/Vol] 3.9 10*3/uL Low 4.4-11.[address] [facility] 12 Lead EKGon 08-28-2024 12 Lead EKG [facility] Cardiovascular Services [address] [place] [address] 12 Lead EKG 08/28/24 0518 MR#: [id number] Acct: [id number] Name: KENYATTA CARRILLO Rep #: [id number] : 1960 63 From: Jose Hsieh MD Attending Dr: Dr. Jerry Lopez MD Status: ADM IN Ordering Dr: Lefty Garcia MD Date: 08/28/24 Location[place] [facility] [place] Sex: F C Admitted: 08/26/24 Test Reason [...] QT has shortened Confirmed by Jose Hsieh ([id number]), online editor QUE POLANCO ([id number]) on 08/29/2024 7:07:33 AM Referred By: Confirmed By: Jose Hsieh 08/29/24 0707 Date Jose Hsieh MD CC: Dr. Lefty Garcia MD; Dr. Jerry Lopez MD; Dr. Naye Sheets MD Signed Normal [facility] Abdomen Limitedon 08-28-2024 Abdomen Limited [facility] Imaging Services [address] [place] [address] Abdomen Limited MR#: [id number] Acct: [id number] Name: KENYATTA CARRILLO Rep #: [id number] : 1960 F 63 From: Helena crockett MD PCP: Dr. Naye Sheets MD Status: ADM IN Study: Abdomen Limited Date of Exam: 08/28/24 Exam# [id number] Ordering Dr: Deven Porter MD PROCEDURE: ABDOMEN [...] secondary to overlying bowel gas. Reading Location: [place] [address] CC: Dr. Deven Porter MD; Dr. Naye Sheets MD Counselor/Art Therapist: Signed Normal [facility] Basic Metabolic Profile (BMP )on 08-28-2024 BUN/CRE 6.8 RATIO Low 10-20 [facility] Comment on above: Performed By: #### L 503.5510, L594.6006 #### [facility] [address] [place], [address] Calcium [Mass/Vol] 8.7 mg/dL Normal 7.6-11.[address] [facility] Comment on above: Performed By: #### L 503.5510, L503.6009 #### [facility] [address] [place], [address] Chloride [Moles/Vol] 105 mmol/L Normal 98-108 [facility] Comment on above: Performed By: #### L 503.5510, L503.6005 #### [facility] [address] [place], [address] CO2 [Moles/Vol] 24.2 mmol/L Normal 21.0-32.0 [facility] Comment on above: Performed By: #### L 503.5510, L503.6005 #### [facility] [address] [place], [address] Creatinine [Mass/Vol] 0.62 mg/dL Low 0.70-1.20 [facility] Comment on above: Performed By: #### L 503.5510, L503.6005 #### [facility] [address] [place], [address] ECRCL 88.12 ml/min Normal 50-250 [facility] Comment on above: Performed By: #### L 503.5510, L503.6005 #### [facility] [address] [place], [address] GAP 11 Normal 5-15 [facility] Comment on above: Performed By: #### L 503.5510, L503.6005 #### [facility] [address] [place], [address] GFR/1.73 sq M.predicted among non-blacks MDRD (S/P/Bld) [Vol rate/Area] 99 mL/min/{1.73_m2} Normal >60 [facility] Comment on above: Result Comment: mL/m in/1.73m2 CKD-EPI Creatinine Equation (2020) Performed By: #### L 503.5510, L503.6005 #### [facility] [address] [place], [address] Glucose [Mass/Vol] 97 mg/dL Normal 70-[address] [facility] Comment on above: Performed By: #### L 503.5510, L503.6005 #### [facility] [address] [place], [address] Potassium [Moles/Vol] 3.4 mmol/L Normal 3.3-5.1 [facility] Comment on above: Performed By: #### L 503.5510, L503.6005 #### [facility] [address] [place], [address] Sodium [Moles/Vol] 139 mmol/L Normal 133-[address] [facility] Comment on above: Performed By: #### L 503.5510, L503.6005 #### [facility] [address] [place], [address] Urea nitrogen [Mass/Vol] 4 mg/dL Normal 4-19 [facility] Comment on above: Performed By: #### L 503.5510, L503.6005 #### [facility] [address] [place], [address] CBC W/Diff, Automatedon 04- Absolute Lymph 1.72 X10 3/uL Normal 0.83-4.51 [facility] Comment on above: Performed By: #### L 503.5510, L503.6005 #### [facility] [address] [place], [address] Absolute Neut 1.7 X10 3/uL Low 2.0-7.7 [facility] Comment on above: Performed By: #### L 503.5510, L503.6005 #### [facility] [address] [place], [address] Basophils/100 WBC (Bld) 0.3 % Normal 0-1 [facility] Comment on above: Performed By: #### L 503.5510, L503.6005 #### [facility] [address] [place], [address] Eosinophils/100 WBC (Bld) 2.5 % Normal 0-5 [facility] Comment on above: Performed By: #### L 503.5510, L503.6005 #### [facility] [address] [place], [address] Erythrocyte distribution width (RBC) [Ratio] 14.3 % Normal 11.6-14.6 [facility] Comment on above: Performed By: #### L 503.5510, L503.6005 #### [facility] [address] [place], [address] Hematocrit (Bld) [Volume fraction] 32.2 % Low 37-47 [facility] Comment on above: Performed By: #### L 503.5510, L503.6005 #### [facility] [address] [place], [address] Hemoglobin (Bld) [Mass/Vol] 10.6 g/dL Low 12.0-15.0 [facility] Comment on above: Performed By: #### L 503.5510, L503.6005 #### [facility] [address] [place], [address] IG% 0.000 Normal 0.0-0.9 [facility] Comment on above: Result Comment: IG% - Immature Granulocytes (promyelocytes, myelocytes and metamyelocytes) > 1% indicates that a LEFT SHIFT is Present. Performed By: #### L 503.5510, L503.6005 #### [facility] [address] [place], [address] Lymphocytes/100 WBC (Bld) 43.7 % High 19-41 [facility] Comment on above: Performed By: #### L 503.5510, L503.6005 #### [facility] [address] [place], [address] MCH (RBC) [Entitic mass] 30.1 pg Normal 27.0-32.0 [facility] Comment on above: Performed By: #### L 503.5510, L503.6005 #### [facility] [address] [place], [address] MCHC (RBC) [Mass/Vol] 32.9 g/dL Normal 32-36 [facility] Comment on above: Performed By: #### L 503.5510, L503.6005 #### [facility] [address] [place], [address] MCV (RBC) [Entitic vol] 91.5 fL Normal 81-99 [facility] Comment on above: Performed By: #### L 503.5510, L503.6005 #### [facility] [address] [place], [address] Monocytes/100 WBC (Bld) 9.6 % Normal 0-10 [facility] Comment on above: Performed By: #### L 503.5510, L503.6005 #### [facility] [address] [place], [address] Neutrophils/100 WBC (Bld) 43.9 % Low 47-70 [facility] Comment on above: Performed By: #### L 503.5510, L503.6005 #### [facility] [address] [place], [address] Nucleated RBC (Bld) [#/Vol] 0 10*3/uL Normal 0-5 [facility] Comment on above: Performed By: #### L 503.5510, L503.6005 #### [facility] [address] [place], [address] Platelet mean volume (Bld) [Entitic vol] 9.3 fL Normal 6.2-12.0 [facility] Comment on above: Performed By: #### L 503.5510, L503.6005 #### [facility] [address] [place], [address] Platelets (Bld) [#/Vol] 231 10*3/uL Normal 150-450 [facility] Comment on above: Performed By: #### L 503.5510, L503.6005 #### [facility] [address] [place], [address] RBC (Bld) [#/Vol] 3.52 10*6/uL Low 4.2-5.4 [facility] Comment on above: Performed By: #### L 503.5510, L503.6005 #### [facility] [address] [place], [address] RDW SD 47.2 fl High 35.1-43.9 [facility] Comment on above: Performed By: #### L 503.5510, L503.6005 #### [facility] [address] [place], [address] WBC (Bld) [#/Vol] 3.9 10*3/uL Low 4.4-11.[address] [facility] Comment on above: Performed By: #### L 503.5510, L503.6005 #### [facility] [address] [place] [place], [address] EGD Reporton 08-28-2024 EGD Report [facility] Medical Records Department [address] [place] [address] EGD Report MR#: [id number] Acct: [id number] Name: KENYATTA CARRILLO Rep #: [id number] : 1960 63 From: Troy Friend DO [...] check healing. Procedure Code(s): --- Professional --- 34058, Small intestinal endoscopy, enteroscopy beyond second portion of duodenum, not including ileum; with biopsy, single or multiple CPT copyright 2021 [employer]. All rights reserved. The codes documented in this report are preliminary and upon rehab tech review may be revised to meet current compliance requirements. Troy Self DO 08/28/2024 2:50:25 PM This report has been signed electronically. Number of Addenda: 0 Note Initiated On: 08/28/2024 1:04 PM 08/28/24 1450 Date Troy Self DO Cosigner Signature: Date (if indicated) CC: Dr. Naye Sheets MD; Troy Self DO Date Dictated: 08/28/24 1304 Date Transcribed: Counselor/Art Therapist: ASHLEY Signed Normal [facility] Liver Profileon 08-28-2024 Albumin [Mass/Vol] 2.8 g/dL Low 3.4-4.[address] [facility] Comment on above: Performed By: #### L 503.5510, L5.6005 #### [facility] [address] [place], [address] ALK PHOS 140 U/L High 35-104 [facility] Comment on above: Performed By: #### L 503.5510, L503.6005 #### [facility] [address] [place], [address] ALT [Catalytic activity/Vol] 15 U/L Normal <=34 [facility] Comment on above: Performed By: #### L 503.5510, L503.6005 #### [facility] [address] [place], [address] AST [Catalytic activity/Vol] 34 U/L High <=31 [facility] Comment on above: Performed By: #### L 503.5510, L503.6005 #### [facility] [address] [place], [address] Bilirubin [Mass/Vol] 0.43 mg/dL Normal 0.00-1.30 [facility] Comment on above: Performed By: #### L 503.5510, L503.6005 #### [facility] [address] [place], [address] Bilirubin.direct [Mass/Vol] 0.23 mg/dL Normal 0.00-0.30 [facility] Comment on above: Performed By: #### L 503.5510, L503.6005 #### [facility] [address] [place], [address] Globulin (S) [Mass/Vol] 3.0 g/dL Normal 2.2-4.2 [facility] Comment on above: Performed By: #### L 503.5510, L503.6005 #### [facility] [address] [place], [address] T PROT 5.7 g/dL Low 5.9-8.4 [facility] Comment on above: Performed By: #### L 503.5510, L503.6005 #### [facility] [address] [place], [address] MR/POSTOP.ANEon 08-28-2024 MR/POSTOP.ANE [facility] Medical Records Department [address] [place] [address] Anesthesia Postop Eval I 08/28/241452 MR#: [id number] Acct: [id number] Name: KENYATTA CARRILLO Rep #: [id number] : 1960 63 From: Yang Vicente PCP: Dr. Naye Sheets MD Status:ADM IN Y Race: C Location: [place] [address]-1 Anesthesia: Postop Eval I Current Vital Signs [...] Yang Mariscal Signature: Date CC: Signed Normal [facility] MR/JESTYSUT4xn 08-28-2024 [facility] Medical Records Department [address] [place] [address] Anesthesia Postop Eval II 08/28/242027 MR#: [id number] Acct: [id number] Name: KENYATTA CARRILLO Rep #: [id number] : 1960 63 From: Mikael Vargas MD PCP: Dr. Naye Sheets MD Status:ADM IN Y Race: C Location: [place] [address]-1 Anesthesia Postop Eval I Sum Postop Eval [...] MD Cosigner Signature: Date CC: Signed Normal [facility] Magnesiumon 08-28-2024 Magnesium [Mass/Vol] 1.4 mg/dL Low 1.5-2.2 [facility] Comment on above: Performed By: #### L 300.4310, L501.4020, M200.1000, L100.0100, L500.4050, L503.6005, L300.3900, L501.3620 #### [facility] [address] [place], [place], [address] Magnesium (Unsp spec) [Mass/ Vol]Ordered By: Deven Porter on 08-28-2024 Magnesium [Mass/Vol] 1.4 mg/dL Low 1.5-2.2 [facility] Phosphoruson 08-28-2024 Phosphate [Mass/Vol] 3.6 mg/dL Normal 2.7-4.5 [facility] Comment on above: Performed By: #### L 300.4310, L501.4020, M200.1000, L100.0100, L500.4050, L503.6005, L300.3900, L501.3620 #### [facility] [address] [place], [place], [address] Serum phosphorus measurement Ordered By: Deven Porter on 08-28-2024 Phosphorus Level 3.6 mg/dL 2.7-4.5 [facility] Surgery Specimen Level Claudine 08-28-2024 Surgery Specimen Level IV Patient Age/Sex Location Account Attending Physician KENYATTA CARRILLO 63/F MS3 [id number] Dr. Jerry Lopez MD Specimen: [id number] Received: 08/29/24 Status: ANDREINA Carrera Num: [id number] Spec Type: EGD BIOPSY Subm Dr: TroyDO [...] in aggregate. Submitted in toto in A1. [facility] 09/10/2024 CPT:94055, 01741, 80590, 71462 ADDENDUM Addendum 1 Entered: 09/15/24-7009 This addendum is to report the results of the PASD special stain and the IHCs (performed at [facility]): The PASD stain is negative for fungal organisms. IHC for HSV (herpes simplex virus types I II) is negative (performed at [facility]). IHC for CMV (cytomegalovirus) is negative (performed at [facility]). Patient Age/Sex Location Account Attending Physician KENYATTA CARRILLO 63/F MS3 [id number] Dr. Jerry Lopez MD ADDENDUM (Continued) All matched controls reacted appropriately. These tests were developed and their performance characteristics determined by [facility]. They may not have been cleared or approved by the [place]. Food and Drug Administration. The FDA has determined that such clearance or approval is not necessary.??? The above immunohistochemical/dual CAITLIN???markers are ordered and reviewed by the Pathologist. Addendum Signed (signature on file) Dr. Laurie Poe MD 09/15/24 1356 Patient Age/Sex Location Account Attending Physician KENYATTA CARRILLO 63/F MS3 [id number] Dr. Jerry Lopez MD Signed (signature on file) Dr. Laurie Poe MD 09/10/24 1231 Normal [facility] Comment on above: Performed By: #### P SUIV ####[facility] [address] [place], [place], [address] TSH DL <= 0.005 mIU/L QnOrde red By: Lefty Garcia on 08-28-2024 Thyroid Stimulating Hormone (TSH) 6.550 uIU/mL High 0.300-4.200 [facility] Thyroid Stim Hormone (TSH)on 08-28-2024 TSH 6.550 uIU/mL High 0.300-4.200 [facility] Comment on above: Performed By: #### L 300.4310, L501.4020, M200.1000, L100.0100, L500.4050, L503.6005, L300.3900, L501.3620 #### [facility] [address] [place], [address] Urine Cultureon 08-28-2024 URC Escherichia coli [place] Count >100,000 Escherichia coli: REACTION Ampicillin Islt [...] TMP SMX Islt NOAH <=20 S Normal [facility] Comment on above: Performed By: #### M 100.2200 ####[facility] [address] [place], [address] CBC W/Diff, Automatedon 08-12 Absolute Lymph 1.67 X10 3/uL Normal 0.83-4.51 [facility] Comment on above: Performed By: #### L 100.0100, L500.4050, L501.9985 ####[facility] [address] [place], [address] Absolute Neut 9.7 X10 3/uL High 2.0-7.7 [facility] Comment on above: Performed By: #### L 100.0100, L500.4050, L501.9985 ####[facility] [address] [place], [address] Basophils/100 WBC (Bld) 0.4 % Normal 0-1 [facility] Comment on above: Performed By: #### L 100.0100, L500.4050, L501.9985 ####[facility] [address] [place], [address] Eosinophils/100 WBC (Bld) 0.2 % Normal 0-5 [facility] Comment on above: Performed By: #### L 100.0100, L500.4050, L501.9985 ####[facility] [address] [place], [address] Erythrocyte distribution width (RBC) [Ratio] 14.4 % Normal 11.6-14.6 [facility] Comment on above: Performed By: #### L 100.0100, L500.4050, L501.9985 ####[facility] [address] [place], [address] Hematocrit (Bld) [Volume fraction] 33.3 % Low 37-47 [facility] Comment on above: Performed By: #### L 100.0100, L500.4050, L501.9985 ####[facility] [address] [place], [address] Hemoglobin (Bld) [Mass/Vol] 11.4 g/dL Low 12.0-15.0 [facility] Comment on above: Performed By: #### L 100.0100, L500.4050, L501.9985 ####[facility] [address] [place], [address] IG% 0.400 Normal 0.0-0.9 [facility] Comment on above: Result Comment: IG% - Immature Granulocytes (promyelocytes, myelocytes and metamyelocytes) > 1% indicates that a LEFT SHIFT is Present. Performed By: #### L 100.0100, L500.4050, L501.9985 ####[facility] [address] [place], [address] Lymphocytes/100 WBC (Bld) 13.0 % Low 19-41 [facility] Comment on above: Performed By: #### L 100.0100, L500.4050, L501.9985 ####[facility] [address] [place], [address] MCH (RBC) [Entitic mass] 30.3 pg Normal 27.0-32.0 [facility] Comment on above: Performed By: #### L 100.0100, L500.4050, L501.9985 ####[facility] [address] [place], [address] MCHC (RBC) [Mass/Vol] 34.2 g/dL Normal 32-36 [facility] Comment on above: Performed By: #### L 100.0100, L500.4050, L501.9985 ####[facility] [address] [place], [address] MCV (RBC) [Entitic vol] 88.6 fL Normal 81-99 [facility] Comment on above: Performed By: #### L 100.0100, L500.4050, L501.9985 ####[facility] [address] [place], [address] Monocytes/100 WBC (Bld) 10.5 % High 0-10 [facility] Comment on above: Performed By: #### L 100.0100, L500.4050, L501.9985 ####[facility] [address] [place], [address] Neutrophils/100 WBC (Bld) 75.5 % High 47-70 [facility] Comment on above: Performed By: #### L 100.0100, L500.4050, L501.9985 ####[facility] [address] [place], [address] Nucleated RBC (Bld) [#/Vol] 0 10*3/uL Normal 0-5 [facility] Comment on above: Performed By: #### L 100.0100, L500.4050, L501.9985 ####[facility] [address] [place], [address] Platelet mean volume (Bld) [Entitic vol] 8.8 fL Normal 6.2-12.0 [facility] Comment on above: Performed By: #### L 100.0100, L500.4050, L501.9985 ####[facility] [address] [place], [address] Platelets (Bld) [#/Vol] 341 10*3/uL Normal 150-450 [facility] Comment on above: Performed By: #### L 100.0100, L500.4050, L501.9985 ####[facility] [address] [place], [address] RBC (Bld) [#/Vol] 3.76 10*6/uL Low 4.2-5.4 [facility] Comment on above: Performed By: #### L 100.0100, L500.4050, L501.9985 ####[facility] [address] [place], [address] RDW SD 46.3 fl High 35.1-43.9 [facility] Comment on above: Performed By: #### L 100.0100, L500.4050, L501.9985 ####[facility] [address] [place], [address] WBC (Bld) [#/Vol] 12.8 10*3/uL High 4.4-11.0 [facility] Comment on above: Performed By: #### L 100.0100, L500.4050, L501.9985 ####[facility] [address] [place], [address] Comprehensive Metabolic Prof ilon 08-27-2024 Albumin [Mass/Vol] 2.9 g/dL Low 3.4-4.[address] [facility] Comment on above: Performed By: #### L 100.0100, L500.4050, L501.9985 ####[facility] [address] [place], [address] ALK PHOS 168 U/L High 35-104 [facility] Comment on above: Performed By: #### L 100.0100, L500.4050, L501.9985 ####[facility] [address] [place], [address] ALT [Catalytic activity/Vol] 16 U/L Normal <=34 [facility] Comment on above: Performed By: #### L 100.0100, L500.4050, L501.9985 ####[facility] [address] [place], [address] AST [Catalytic activity/Vol] 40 U/L High <=31 [facility] Comment on above: Performed By: #### L 100.0100, L500.4050, L501.9985 ####[facility] [address] [place], [address] Bilirubin [Mass/Vol] 0.52 mg/dL Normal 0.00-1.30 [facility] Comment on above: Performed By: #### L 100.0100, L500.4050, L501.9985 ####[facility] [address] [place], [address] BUN/CRE 9.4 RATIO Low 10-20 [facility] Comment on above: Performed By: #### L 100.0100, L500.4050, L501.9985 ####[facility] [address] [place], [address] Calcium [Mass/Vol] 9.2 mg/dL Normal 7.6-11.[address] [facility] Comment on above: Performed By: #### L 100.0100, L500.4050, L501.9985 ####[facility] [address] [place], [address] Chloride [Moles/Vol] 102 mmol/L Normal 98-108 [facility] Comment on above: Performed By: #### L 100.0100, L500.4050, L501.9985 ####[facility] [address] [place], [address] CO2 [Moles/Vol] 22.8 mmol/L Normal 21.0-32.0 [facility] Comment on above: Performed By: #### L 100.0100, L500.4050, L501.9985 ####[facility] [address] [place], [address] Creatinine [Mass/Vol] 0.63 mg/dL Low 0.70-1.20 [facility] Comment on above: Performed By: #### L 100.0100, L500.4050, L501.9985 ####[facility] [address] [place], [address] ECRCL 80.90 ml/min Normal 50-250 [facility] Comment on above: Performed By: #### L 100.0100, L500.4050, L501.9985 ####[facility] [address] [place], [address] GAP 15 Normal 5-15 [facility] Comment on above: Performed By: #### L 100.0100, L500.4050, L501.9985 ####[facility] [address] [place], [address] GFR/1.73 sq M.predicted among non-blacks MDRD (S/P/Bld) [Vol rate/Area] 98 mL/min/{1.73_m2} Normal >60 [facility] Comment on above: Result Comment: mL/m in/1.73m2 CKD-EPI Creatinine Equation (2020) Performed By: #### L 100.0100, L500.4050, L501.9985 ####[facility] [address] [place], [address] Globulin (S) [Mass/Vol] 3.4 g/dL Normal 2.2-4.2 [facility] Comment on above: Performed By: #### L 100.0100, L500.4050, L501.9985 ####[facility] [address] [place], [address] Glucose [Mass/Vol] 171 mg/dL High 70-[address] [facility] Comment on above: Performed By: #### L 100.0100, L500.4050, L501.9985 ####[facility] [address] [place], [address] Potassium [Moles/Vol] 3.2 mmol/L Low 3.3-5.1 [facility] Comment on above: Performed By: #### L 100.0100, L500.4050, L501.9985 ####[facility] [address] [place], [address] Sodium [Moles/Vol] 139 mmol/L Normal 133-[address] [facility] Comment on above: Performed By: #### L 100.0100, L500.4050, L501.9985 ####[facility] [address] [place], [address] T PROT 6.3 g/dL Normal 5.9-8.4 [facility] Comment on above: Performed By: #### L 100.0100, L500.4050, L501.9985 ####[facility] [address] [place], [address] Urea nitrogen [Mass/Vol] 6 mg/dL Normal 4-19 [facility] Comment on above: Performed By: #### L 100.0100, L500.4050, L501.9985 ####[facility] [address] [place], [address] HH, Hemoglobin AND Hematocri ton 08-27-2024 Hematocrit (Bld) [Volume fraction] 34.6 % Low 37-47 [facility] Comment on above: Performed By: #### L 300.4310, L501.4020, M200.1000, L100.0100, L500.4050, L503.6005, L300.3900, L501.3620 #### [facility] [address] [place], [address] Hemoglobin (Bld) [Mass/Vol] 12.2 g/dL Normal 12.0-15.0 [facility] Comment on above: Performed By: #### L 300.4310, L501.4020, M200.1000, L100.0100, L500.4050, L503.6005, L300.3900, L501.3620 #### [facility] [address] [place], [address] Hemoglobin A1c percentageOrd ered By: Tiff Ramires on 08-27-2024 HbA1c (Bld) [Mass fraction] 5.7 % Normal <=5.6 [facility] Comment on above: Normal < 5.7 % Predi abetic 5.7 - 6.4 % Diabetic >or= 6.5 % Please note range changes. Result Comment: Norm al < 5.7 % Prediabetic 5.7 - 6.4 % Diabetic >or= 6.5 % Please note range changes. Performed By: #### L 100.0100, L500.4050, L501.9985 ####[facility] [address] [place], [address] MR/CON.PCM.GIon 08-27-2024 MR/CON.PCM.GI [facility] Medical Records Department [address] [place] [address] Consultation - GI 08/27/24 0723 MR#: [id number] Acct: [id number] Name: KENYATTA CARRILLO Rep #: [id number] : 1960 63 From: Sofie Moreland AIR ANALYSTLenC PCP: Dr. Naye Sheets MD Status:DIS IN Location: [place] [id number] HPI Consult Data Date of Consult: 09/01/24 [...] hematemesis and is requesting PO. EGD 06/14/2024 ([facility]) - [place] Grade D esophagitis with [...] 06/28/2024 HGB 10 - at discharge from [facility] Medical History Migraines Difficulty walking Urge [...] alcohol intake (more content not included)... Normal [facility] Serum or plasma albumin/glob ulin mass ratioOrdered By: Tiff Ramires on 08-27-2024 Albumin/Globulin [Mass ratio] 0.9 {ratio} Normal 0.9-2.4 [facility] Comment on above: Performed By: #### L 100.0100, L500.4050, L501.9985 ####[facility] [address] [facility] [place], [place], [address] Abdomen/Pelvis W IV Cont ONL Yon 08-26-2024 Abdomen/Pelvis W IV Cont ONLY [facility] Imaging Services [address] [place], [place] [address] Abdomen/Pelvis W IV Cont ONLY MR#: [id number] Acct: [id number] Name: KENYATTA CARRILLO Rep #: [id number] : 1960 F 63 From: Fermin Payton MD PCP: Dr. Naye Sheets MD Status: REG ER Study: Abdomen/Pelvis W IV Cont ONLY Date of Exam: Exam# [id number] Ordering Dr: Jesus Flynn DO PROCEDURE: ABDOMEN/PELVIS [...] 10. Additional description as above. Reading Location: [id number] CC: Dr. Jesus Flynn DO; Dr. Naye Sheets MD Counselor/Art Therapist: Signed Normal [facility] Absolute neutrophil countOrd ered By: Jesus Flynn on 08-26-2024 Neutrophils (Bld) [#/Vol] 6.2 10*3/uL 2.0-7.7 [facility] Alcohol, Blood (Medical)-Ser umon 08-26-2024 SERUM ETOH 279.0 mg/dL High <=10.0 [facility] Comment on above: Result Comment: This test is for medical purposes only. The legal definition of intoxication varies according to local law. Performed By: #### L 503.5510, L503.6005 #### [facility] [address] [place], [address] Anion gap in Serum or Plasma Ordered By: Jesus Flynn on 08-26-2024 Anion gap [Moles/Vol] 23 mmol/L High 09-25 [facility] BUN/creatinine ratioOrdered By: Jesus Flynn on 08-26-2024 Urea nitrogen/Creatinine [Mass ratio] 8.3 mg/mg Low 10-20 [facility] Basophil percentageOrdered B y: Jesus Herbyahaira on 08-26-2024 Basophils/100 WBC (Bld) 0.7 % 0-1 [facility] Bilirubin Test strip Ql (U)O rdered By: Jesus Flynn on 08-26-2024 Bilirubin Ql (U) Negative Negative [facility] Bilirubin, totalOrdered By: Jesus Flynn on 08-26-2024 Bilirubin [Mass/Vol] 0.28 mg/dL 0.00-1.30 [facility] CBC W/Diff, Automatedon 08-12 PLT EST MOD INC Normal ADEQ [facility] Comment on above: Performed By: #### L 300.4310, L501.4020, M200.1000, L100.0100, L500.4050, L503.6005, L300.3900, L501.3620 #### [facility] [address] [place], [place], [phone] (743) Carbon dioxide, total [Moles /volume] in Central venous bloodOrdered By: Jesus Flynn on 08-26-2024 CO2 [Moles/Vol] 21.5 mmol/L 21.0-32.0 [facility] Chloride assayOrdered By: Narinder Flynn on 08-26-2024 Chloride [Moles/Vol] 95 mmol/L Low 98-108 [facility] Comprehensive Metabolic Prof ilon 08-26-2024 Albumin [Mass/Vol] 3.3 g/dL Low 3.4-4.[address] [facility] Comment on above: Performed By: #### L 300.4310, L501.4020, M200.1000, L100.0100, L500.4050, L503.6005, L300.3900, L501.3620 #### [facility] [address] [place], [place], [phone] (744) Albumin/Globulin [Mass ratio] 0.8 {ratio} Low 0.9-2.4 [facility] Comment on above: Performed By: #### L 300.4310, L501.4020, M200.1000, L100.0100, L500.4050, L503.6005, L300.3900, L501.3620 #### [facility] [address] [place], [address] ALK PHOS 180 U/L High 35-104 [facility] Comment on above: Performed By: #### L 300.4310, L501.4020, M200.1000, L100.0100, L500.4050, L503.6005, L300.3900, L501.3620 #### [facility] [address] [place], [address] ALT [Catalytic activity/Vol] 21 U/L Normal <=34 [facility] Comment on above: Performed By: #### L 300.4310, L501.4020, M200.1000, L100.0100, L500.4050, L503.6005, L300.3900, L501.3620 #### [facility] [address] [place], [address] AST [Catalytic activity/Vol] 39 U/L High <=31 [facility] Comment on above: Performed By: #### L 300.4310, L501.4020, M200.1000, L100.0100, L500.4050, L503.6005, L300.3900, L501.3620 #### [facility] [address] [place], [address] Bilirubin [Mass/Vol] 0.28 mg/dL Normal 0.00-1.30 [facility] Comment on above: Performed By: #### L 300.4310, L501.4020, M200.1000, L100.0100, L500.4050, L503.6005, L300.3900, L501.3620 #### [facility] [address] [place], [address] BUN/CRE 8.3 RATIO Low 10-20 [facility] Comment on above: Performed By: #### L 300.4310, L501.4020, M200.1000, L100.0100, L500.4050, L503.6005, L300.3900, L501.3620 #### [facility] [address] [place], [address] Calcium [Mass/Vol] 10.0 mg/dL Normal 7.6-11.[address] [facility] Comment on above: Performed By: #### L 300.4310, L501.4020, M200.1000, L100.0100, L500.4050, L503.6005, L300.3900, L501.3620 #### [facility] [address] [place], [address] Chloride [Moles/Vol] 95 mmol/L Low 98-108 [facility] Comment on above: Performed By: #### L 300.4310, L501.4020, M200.1000, L100.0100, L500.4050, L503.6005, L300.3900, L501.3620 #### [facility] [address] [place], [address] CO2 [Moles/Vol] 21.5 mmol/L Normal 21.0-32.0 [facility] Comment on above: Performed By: #### L 300.4310, L501.4020, M200.1000, L100.0100, L500.4050, L503.6005, L300.3900, L501.3620 #### [facility] [address] [place], [address] Creatinine [Mass/Vol] 0.69 mg/dL Low 0.70-1.20 [facility] Comment on above: Performed By: #### L 300.4310, L501.4020, M200.1000, L100.0100, L500.4050, L503.6005, L300.3900, L501.3620 #### [facility] [address] [place], [address] ECRCL 80.90 ml/min Normal 50-250 [facility] Comment on above: Performed By: #### L 300.4310, L501.4020, M200.1000, L100.0100, L500.4050, L503.6005, L300.3900, L501.3620 #### [facility] [address] [place], [place], [phone] (992) GAP 23 High 5-15 [facility] Comment on above: Performed By: #### L 300.4310, L501.4020, M200.1000, L100.0100, L500.4050, L503.6005, L300.3900, L501.3620 #### [facility] [address] [place], [place], [id number] ([address] GFR/1.73 sq M.predicted among non-blacks MDRD (S/P/Bld) [Vol rate/Area] 96 mL/min/{1.73_m2} Normal >60 [facility] Comment on above: Result Comment: mL/m in/1.73m2 CKD-EPI Creatinine Equation (2020) Performed By: #### L 300.4310, L501.4020, M200.1000, L100.0100, L500.4050, L503.6005, L300.3900, L501.3620 #### [facility] [address] [place], [place], [phone] (271) Globulin (S) [Mass/Vol] 3.9 g/dL Normal 2.2-4.2 [facility] Comment on above: Performed By: #### L 300.4310, L501.4020, M200.1000, L100.0100, L500.4050, L503.6005, L300.3900, L501.3620 #### [facility] [address] [place], [address] Glucose [Mass/Vol] 150 mg/dL High 70-[address] [facility] Comment on above: Performed By: #### L 300.4310, L501.4020, M200.1000, L100.0100, L500.4050, L503.6005, L300.3900, L501.3620 #### [facility] [address] [place], [address] Potassium [Moles/Vol] 2.6 mmol/L Invalid Interpretation Code 3.3-5.1 [facility] Comment on above: Result Comment: Crit ical Result(s) Called NJOHNSON at: 1622 by: MIKE??Results read back by same. Performed By: #### L 300.4310, L501.4020, M200.1000, L100.0100, L500.4050, L503.6005, L300.3900, L501.3620 #### [facility] [address] [place], [address] Sodium [Moles/Vol] 140 mmol/L Normal 133-[address] [facility] Comment on above: Performed By: #### L 300.4310, L501.4020, M200.1000, L100.0100, L500.4050, L503.6005, L300.3900, L501.3620 #### [facility] [address] [place], [address] T PROT 7.1 g/dL Normal 5.9-8.4 [facility] Comment on above: Performed By: #### L 300.4310, L501.4020, M200.1000, L100.0100, L500.4050, L503.6005, L300.3900, L501.3620 #### [facility] [address] [place], [address] Urea nitrogen [Mass/Vol] 6 mg/dL Normal 4-19 [facility] Comment on above: Performed By: #### L 300.4310, L501.4020, M200.1000, L100.0100, L500.4050, L503.6005, L300.3900, L501.3620 #### [facility] [address] [place] [place], [address] Emergency Department Summary on 08-26-2024 Emergency Department Summary [facility] Medical Records Department [address] [place] [address] Emergency Department Summary 08/26/24 MR#: [id number] Acct: [id number] Name: KENYATTA CARRILLO Rep #: [id number] : 1960 63 From: Jesus Flynn DO PCP: Dr. Naye Sheets MD Status:ADM IN Location: [address] History of Present Illness Chief Complaint: [...] H B (more content not included)... Normal [facility] Eosinophil percentageOrdered By: Jesus Flynn on 08-26-2024 Eosinophils/100 WBC (Bld) 1.5 % 0-5 [facility] Epithelial cells.squamous LM Ql (Urine sed)Ordered By: Jesus Flynn on 08-26-2024 Epithelial cells.squamous LM.HPF (Urine sed) [#/Area] 0 /[HPF] 5-10 [facility] Erythrocyte distribution wid th (RBC) [Ratio]Ordered By: Jesus Flynn on 08-26-2024 Erythrocyte distribution width (RBC) [Entitic vol] 47.0 fL High 35.1-43.9 [facility] Erythrocyte distribution wid th ratioOrdered By: Jesus Flynn on 08-26-2024 Erythrocyte distribution width (RBC) [Ratio] 14.2 % 11.6-14.6 [facility] Estimation of creatinine dilcia aranceOrdered By: Jesus Flynn on 08-26-2024 Estimated Creatinine Clearance Calc 80.90 ml/min 50-250 [facility] Ethanol [Mass/Vol]Ordered By : Jesus Flynn on 08-26-2024 Ethyl Alcohol Level 279.0 mg/dL High <10.1 [facility] Comment on above: This test is for med ical purposes only. The legal definition of intoxication varies according to local law. GFR/1.73 sq M.predicted arnel g non-blacks MDRD (S/P/Bld) [Vol rate/Area]Ordered By: Jesus Flynn on 08-26-2024 Estimated GFR (MDRD) Non-Af Amer 96 >60 [facility] Comment on above: mL/min/1.73m2 CKD-EP I Creatinine Equation (2020) Glucose Ql (U)Ordered By: Narinder Flynn on 08-26-2024 Urine Glucose (UA) Normal mg/dl Normal [facility] H AND P Exam - Hospitaliston 08-26-2024 H&P Exam - Hospitalist [facility] Medical Records Department [address] [place] [address] H P Exam - Hospitalist 08/26/24 1832 MR#: [id number] Acct: [id number] Name: KENYATTA CARRILLO Rep #: [id number] : 1960 63 From: Tiff Ramires MD PCP: Dr. Naye Sheets MD Status:ADM IN Location: [place] [address]-1 HPI - General General Date of Admission: 08/26/24 Date of Service: 08/26/24 Chief Complaint: N/V, coffee ground emesis, abdominal pain. HPI Narrative The patient is a 63 y/o F w/ PMHx: Chronic alcoholic liver disease/chronic alcoholic hepatitis, Severe protein calorie malnutrition, GERD w/ Hx GI bleed, Anxiety and Depression/Bipolar disorder, Hypothyroidism, Former tobacco use, Chronic oropharyngeal phase dysphagia who presents to the [facility] ED on 08/26/24 with history of intermittent [...] PO QDAY (more content not included)... Normal [facility] HH, Hemoglobin AND Hematocri ton 08-26-2024 Hematocrit (Bld) [Volume fraction] 40.4 % Normal 37-47 [facility] Comment on above: Performed By: #### L 300.4310, L501.4020, M200.1000, L100.0100, L500.4050, L503.6005, L300.3900, L501.3620 #### [facility] [address] [place], [place], [id number] Hemoglobin (Bld) [Mass/Vol] 13.4 g/dL Normal 12.0-15.0 [facility] Comment on above: Performed By: #### L 300.4310, L501.4020, M200.1000, L100.0100, L500.4050, L503.6005, L300.3900, L501.3620 #### [facility] [address] [place], [address] HIP, UNI W/ Pelvis 2-3 Views on 08-26-2024 HIP, UNI W/ Pelvis 2-3 Views [facility] Imaging Services [address] [place], [place] [address] HIP, UNI W/ Pelvis 2-3 Views MR#: [id number] Acct: [id number] Name: KENYATTA CARRILLO Rep #: [id number] : 1960 F 63 From: Will Benjamin DO PCP: Dr. Naye Sheets MD Status: REG ER Study: HIP, UNI W/ Pelvis 2-3 Views Date of Exam: Exam# [id number] Ordering Dr: Jesus Flynn DO PROCEDURE: HIP, [...] Jesus Flynn DO; Dr. Naye Sheets MD Counselor/Art Therapist: Signed Normal [facility] Hematocrit Auto (Bld) [Volum e fraction]Ordered By: Jesus Flynn on 08-26-2024 Hematocrit (Bld) [Volume fraction] 40.9 % 37-47 [facility] Hemoglobin measurementOrdere d By: Jesus Flynn on 08-26-2024 Hemoglobin (Bld) [Mass/Vol] 13.6 g/dL 12.0-15.0 [facility] Immature granulocytes/100 WB C Auto (Bld)Ordered By: Jesus Flynn on 08-26-2024 Immature granulocytes/100 WBC (Bld) 0.500 % 0.0-0.9 [facility] Comment on above: IG% - Immature Granu locytes (promyelocytes, myelocytes and metamyelocytes) > 1% indicates that a LEFT SHIFT is Present. International normalized rat io (INR) calculationOrdered By: Jesus Flynn on 08-26-2024 INR Coag (Bld) [Relative time] 1.2 {INR} [facility] Ketones Test strip Ql (U)Ord ered By: Jesus Flynn on 08-26-2024 Ketones Ql (U) Negative Negative [facility] - Chemistry and C hemistry - challengeOrdered By: Jesus Flynn on 08-26-2024 AST [Catalytic activity/Vol] 39 U/L High <32 [facility] Lipaseon 08-26-2024 Lipase [Catalytic activity/Vol] 28 U/L Normal 13-75 [facility] Comment on above: Result Comment: Plea se note: LIPASE revised reference range effective 22. New Lipase methodology. Expected to produce lower values than the previous assay method. NEW Reference Range: 13 - 75 U/L Performed By: #### L 300.4310, L501.4020, M200.1000, L100.0100, L500.4050, L503.6005, L300.3900, L501.3620 #### [facility] [address] [place], [place], [address] Lipase measurementOrdered By : Jesus Flynn on 08-26-2024 Lipase [Catalytic activity/Vol] 28 U/L 13-75 [facility] Comment on above: Please note:LIPASE r evised reference range effective 22. New Lipase methodology. Expected to produce lower values than the previous assay method. NEW Reference Range: 13 - 75 U/L Lymphocytes Auto (Unsp spec) [#/Vol]Ordered By: Jesus Flynn on 08-26-2024 Lymphocytes (Bld) [#/Vol] 5.38 10*3/uL High 0.83-4.51 [facility] Lymphocytes/100 WBC Auto (Un sp spec)Ordered By: Jesus Flynn on 08-26-2024 Lymphocytes/100 WBC (Bld) 42.1 % High 19-41 [facility] MCV (mean corpuscular volume ) determinationOrdered By: Jesus Flynn on 08-26-2024 MCV (RBC) [Entitic vol] 90.9 fL 81-99 [facility] Magnesiumon 08-26-2024 Magnesium [Mass/Vol] 1.4 mg/dL Low 1.5-2.2 [facility] Comment on above: Order Comment: Comme nts: May add to ED labsComments: may add to ED labs Performed By: #### L 300.4310, L501.4020, M200.1000, L100.0100, L500.4050, L503.6005, L300.3900, L501.3620 #### [facility] [address] [place], [place], [id number] Magnesium (Unsp spec) [Mass/ Vol]Ordered By: Tiff Ramires on 08-26-2024 Magnesium [Mass/Vol] 1.4 mg/dL Low 1.5-2.2 [facility] Mean corpuscular hemoglobin (MCH) determinationOrdered By: Jesus Flynn on 08-26-2024 MCH (RBC) [Entitic mass] 30.2 pg 27.0-32.0 [facility] Mean corpuscular hemoglobin concentration (MCHC) determinationOrdered By: Jesus Flynn on 08-26-2024 MCHC (RBC) [Mass/Vol] 33.3 g/dL 32-36 [facility] Mean platelet volume determi nationOrdered By: Jesus Flynn on 08-26-2024 Platelet mean volume (Bld) [Entitic vol] 9.0 fL 6.2-12.0 [facility] Microscopic analysis of urin e for red blood cells (RBC)Ordered By: Jesus Flynn on 08-26-2024 Urine RBC 0-5 SEEN /hpf 0-5 [facility] Monocyte percentageOrdered B y: Jesus Flynn on 08-26-2024 Monocytes/100 WBC (Bld) 6.6 % 0-10 [facility] Mucus LM Ql (Urine sed)Order ed By: Jesus Flynn on 08-26-2024 Mucus Ql (Urine sed) 0 SEEN /hpf [facility] Neutrophil percentageOrdered By: Jesus Flynn on 08-26-2024 Neutrophils/100 WBC (Bld) 48.6 % 47-70 [facility] Nitrite Test strip Ql (U)Ord ered By: Jesus Flynn on 08-26-2024 Nitrite Ql (U) Positive High Negative [facility] Nucleated red blood cell per centageOrdered By: Jesus Flynn on 08-26-2024 Nucleated RBC/100 WBC (Bld) [Ratio] 0 % 0-5 [facility] Partial Thromboplast Timeon 08-26-2024 aPTT Coag (Bld) [Time] 29.5 s Normal 24.1-36.2 [facility] Comment on above: Performed By: #### L 503.5510, L503.6005 #### [facility] [address] [place], [address] Phosphoruson 08-26-2024 Phosphate [Mass/Vol] 5.0 mg/dL High 2.7-4.5 [facility] Comment on above: Order Comment: Comme nts: May add to ED labsComments: may add to ED labs Performed By: #### L 300.4310, L501.4020, M200.1000, L100.0100, L500.4050, L503.6005, L300.3900, L501.3620 #### [facility] [address] [place], [address] Platelet countOrdered By: Narinder Flynn on 08-26-2024 Platelets (Bld) [#/Vol] 505 10*3/uL High 150-450 [facility] Platelets LM Ql (Bld)Ordered By: Jesus Flynn on 08-26-2024 Platelet Estimate MOD INC ADEQ [facility] Potassium (Unsp spec) [Mass/ Vol]Ordered By: Jesus Flynn on 08-26-2024 Potassium [Moles/Vol] 2.6 mmol/L Low 3.3-5.1 [facility] Comment on above: Critical Result(s) C jagjit FRANCOKYMACRINA at: 1622 by: MIKE Results read back by same. Protein Test strip Ql (U)Ord ered By: Jesus Flynn on 08-26-2024 Protein Ql (U) 30 mg/dl High Negative [facility] Prothrombin Time w/INRon INR Coag (PPP) [Relative time] 1.2 {INR} Normal [facility] Comment on above: Performed By: #### L 503.5510, L503.6005 #### [facility] [address] [place], [address] PT Coag (PPP) [Time] 15.2 s High 11.7-14.9 [facility] Comment on above: Performed By: #### L 503.5510, L503.6005 #### [facility] [address] [place], [place], [address] Prothrombin timeOrdered By: Jesus Flynn on 08-26-2024 PT Coag (PPP) [Time] 15.2 s High 11.7-14.9 [facility] RBC Auto (Bld) [#/Vol]Ordere d By: Jesus Flynn on 08-26-2024 RBC (Bld) [#/Vol] 4.50 10*6/uL 4.2-5.4 [facility] Serum creatinine measurement (mass/volume)Ordered By: Jesus Flynn on 08-26-2024 Creatinine [Mass/Vol] 0.69 mg/dL Low 0.70-1.20 [facility] Serum globulin measurementOr dered By: Jesus Flynn on 08-26-2024 Globulin (S) [Mass/Vol] 3.9 g/dL 2.2-4.2 [facility] Serum glucose measurement (m ass/volume)Ordered By: Jesus Flynn on 08-26-2024 Glucose [Mass/Vol] 150 mg/dL High 70-[address] [facility] Serum or plasma alanine araiza otransferase (ALT) measurementOrdered By: Jesus Flynn on 08-26-2024 ALT [Catalytic activity/Vol] 21 U/L <35 [facility] Serum or plasma albumin abida urement (mass/volume)Ordered By: Jesus Flynn on 08-26-2024 Albumin [Mass/Vol] 3.3 g/dL Low 3.4-4.[address] [facility] Serum or plasma albumin/glob ulin mass ratioOrdered By: Jesus Flynn on 08-26-2024 Albumin/Globulin [Mass ratio] 0.8 {ratio} Low 0.9-2.4 [facility] Serum or plasma alkaline desi sphatase measurementOrdered By: Jesus Flynn on 08-26-2024 ALP [Catalytic activity/Vol] 180 U/L High 35-104 [facility] Serum or plasma calcium abida urement (mass/volume)Ordered By: Jesus Flynn on 08-26-2024 Calcium [Mass/Vol] 10.0 mg/dL 7.6-11.[address] [facility] Serum or plasma urea nitroge n measurement (mass/volume)Ordered By: Jesus Flynn on 08-26-2024 Urea nitrogen [Mass/Vol] 6 mg/dL 4-19 [facility] Serum phosphorus measurement Ordered By: Tiff Ramires on 08-26-2024 Phosphorus Level 5.0 mg/dL High 2.7-4.5 [facility] Sodium levelOrdered By: Jesus Flynn on 08-26-2024 Sodium [Moles/Vol] 140 mmol/L 133-[address] [facility] Total proteinOrdered By: Kath Flynn on 08-26-2024 Protein [Mass/Vol] 7.1 g/dL 5.9-8.[address] [facility] Transitional cells LM Ql (Ur ine sed)Ordered By: Jesus Flynn on 08-26-2024 Urine Transitional Epithelial Cells 0-5 SEEN /hpf 0-5 [facility] Type AND Screenon 08-26-2024 Ab SCREEN GEL Negative Normal [facility] Comment on above: Order Comment: HGI Performed By: #### L 300.4310, L501.4020, M200.1000, L100.0100, L500.4050, L503.6005, L300.3900, L501.3620 #### [facility] [address] [place], [place], [id number] Urinalysis, Completeon 08-26 RBC 0-5 SEEN Normal 0-5 [facility] Comment on above: Order Comment: CLEAN CATCH Performed By: #### L 400.0001 ####[facility] [address] [place], [address] EPI,SQUAMOUS 0-5 SEEN Normal 5-10 [facility] Comment on above: Order Comment: CLEAN CATCH Performed By: #### L 400.0001 ####[facility] [address] [place], [address] EPI,TRANSITION 0-5 SEEN Normal 0-5 [facility] Comment on above: Order Comment: CLEAN CATCH Performed By: #### L 400.0001 ####[facility] [address] [place], [address] WBC >100 SEEN Normal 0-5 [facility] Comment on above: Order Comment: CLEAN CATCH Performed By: #### L 400.0001 ####[facility] [address] [place], [address] BACTERIA 3+ /hpf Normal None Seen [facility] Comment on above: Order Comment: CLEAN CATCH Performed By: #### L 400.0001 ####[facility] [address] [place], [address] Mucus Ql (Urine sed) 0 SEEN Normal [facility] Comment on above: Order Comment: CLEAN CATCH Performed By: #### L 400.0001 ####[facility] [address] [place], [address] Urine blood detectionOrdered By: Jesus Flynn on 08-26-2024 Urine Occult Blood 25 /ul High Negative [facility] Urine clarityOrdered By: Kath Flynn on 08-26-2024 Clarity (U) Cloudy Clear [facility] Urine color determinationOrd ered By: Jesus Flynn on 08-26-2024 Color (U) Yellow Yellow [facility] Urine cultureOrdered By: Kath Flynn on 08-26-2024 Bacteria identified Cx Nom (U) Escherichia coli Abnormal [facility] Urine leukocyte esterase det ection by dipstickOrdered By: Jesus Flynn on 08-26-2024 Leukocyte esterase Test strip Ql (U) 500 /ul High Negative [facility] Urine pHOrdered By: Jesus marrero on 08-26-2024 pH (U) 6.0 [pH] 5.0 - 8.0 [facility] Urine sediment bacteria coun t by microscopy (number/high power field)Ordered By: Jesus Flynn on 08-26-2024 Bacteria LM.HPF (Urine sed) [#/Area] 3 /[HPF] None Seen [facility] Urine specific gravity measu rementOrdered By: Jesus Flynn on 08-26-2024 Specific gravity (U) [Rel density] 1.015 1.002-1.030 [facility] Urobilinogen Ql (U)Ordered B y: Jesus Flynn on 08-26-2024 Urine Urobilinogen Normal mg/dl Normal [facility] White blood cell (WBC) count Ordered By: Jesus Flynn on 08-26-2024 WBC (Bld) [#/Vol] 12.8 10*3/uL High 4.4-11.0 [facility] White blood cell countOrdere d By: Jesus Flynn on 08-26-2024 Urine WBC >100 SEEN /hpf 0-5 [facility] aPTT Coag (PPP) [Time]Ordere d By: Jesus Flynn on 08-26-2024 aPTT Coag (Bld) [Time] 29.5 s 24.1-36.2 [facility] -------- KENYATTA CARRILLO ([id number]) 1960 F Date Time Provider Department 08/20/[address] [facility] During your visit today, we recorded the following information about you: Shelly LockwoodaMARIBEL 08/20/2024 11:34 AM Signed José Miguel ph. [phone]. [employer] Called and left detailed [...] by mouth once daily. Follow-up with your toll patrolman to decide on tapering down do not stop abruptly without plan for discontinuation with your toll patrolman - pantoprazole DR (PROTONIX) 40 mg tablet [...] 05/22/2023 Diagnosed: (more content not included)... [facility] KENYATTA CARRILLO ([id number]) 1960 F Date Time Provider Department 4/9/25 NAYE SHEETS FAMPWS During your visit today, we recorded the following information about you: Alison Cespedes LPN 08/20/2024 10:44 AM Signed Patient calling to reschedule her appt to follow up after snf visit, she can not get out to [...] no shows. [facility] and would have been informed about this? Neelam Trimble MA 08/20/2024 11:42 AM Addendum Spoke with patient whom states she was already contacted by [facility] office last week sometime and informed she had been dismissed from the practice. She stated if she has any follow up questions she'll call the [facility] office back. I gave her the number again so she had it. Neelam Trimble MA Allergies As of Date: 08/20/2024 Noted Allergy Reaction AMOXIL (AMOXICILLIN) 11/23/2021 2 - Rash Comments: Face and neck 06/2024: Appears to be tolerating Zosyn. Date Reviewed: 06/27/2024 Reviewed by: Teri Aviles, KYLIE - Fully Assessed Reason for Visit: reschedule appt from snf visit [Other] Prescriptions as of 08/20/2024 - [...] by mouth once daily. Follow-up with your toll patrolman to decide on tapering down do not stop abruptly without plan for discontinuation with your toll patrolman - pantoprazole DR (PROTONIX) 40 mg tablet [...] disorder [Z86.59 (more content not included)... Normal [facility] CNCOon 08-07-2024 CNCO Letter Text Normal [facility] CNPNon 07-30-2024 CNPN Tele[facility] -------- KENYATTA CARRILLO ([id number]) 1960 F Date Time Provider Department 07/30/24 KORTNEY, NAYE J FAMPWS During your visit today, we recorded the following information about you: Kimberly Sanchez RN 07/30/2024 11:56 AM Signed Selene Swenson DYLAN from [facility] calls and states that she faxed over discharge paperwork from [facility] on Sunday07/28/2024. Selene reports that she faxed [...] apartment she had prior to stay at [facility]. Patient was told that she has to find somewhere else new to stay by 08/12. Selene worked with patient on 5 housing applications. Because of patient having to move at the end of month, Home health orders were never ordered. Selene asking if provider can write these orders after seeing patient tomorrow? Selene had all medication sent to [facility] including nebulizer and nebulizer solutions. Selene reports that [facility] did not have nebulizer machine. Provider may have to write order for this as well. Selene aware that patient had declined [facility]. Caregivers would not help her to [...] by mouth once daily. Follow-up with your toll patrolman to decide on tapering down do not stop abruptly without plan for discontinuation with your toll patrolman - pantoprazole DR (PROTONIX) 40 mg tablet [...] 06/16/2022 Diagnosed (more content not included)... Normal [facility] 07-29-2024 [facility] Telephone (NAVWST) -------- KENYATTA CARRILLO ([id number]) 1960 F Date Time Provider Department 07/29/24 DIANNE CABA During your visit today, we recorded the following information about you: Dianne Caba, ALESSANDRO 07/29/2024 1:50 PM Signed Sw received message from José Miguel [facility]. She reports that patient came home this past Sunday from [facility]. [employer] when out today to reopen her case for home staging specialist assistance. Notes patient was vomiting when [facility] was out at home and did not have her medications. Patient is refusing home care assistance services from [employer]. José Miguel noted that she has called [facility] to update them on this issue. EVANS Martínez notes that she is calling to update Dr. Sheets as well with this information. José Miguel ph. [phone]. Naye Sheets MD 07/29/2024 2:05 PM Signed [...] by mouth once daily. Follow-up with your toll patrolman to decide on tapering down do not stop abruptly without plan for discontinuation with your toll patrolman - pantoprazole DR (PROTONIX) 40 mg tablet [...] unspecifi*11/23/2020 Diagnose (more content not included)... Normal [facility] 07-28-2024 [facility] Telephone (FAMWS) -------- KENYATTA CARRILLO ([id number]) 1960 F Date Time Provider Department 07/28/[address] [facility] During your visit today, we [...] by mouth once daily. Follow-up with your toll patrolman to decide on tapering down do not stop abruptly without plan for discontinuation with your toll patrolman - pantoprazole DR (PROTONIX) 40 mg tablet [...] [R53.81] 11/22/2020 Diagnosed: 05/22/2023 Other physical therapy [[id number]] 02/02/2003 Diagnosed: 05/22/2023 Pain in right hip [M25.551] 11/23/2020 Diagnosed: 05/22/2023 Polyp of colon [K63.5] 05/22/2023 Diagnosed: (more content not included)... Normal [facility] Gastroenterology Visit Repor ton 07-23-2024 Gastroenterology Visit Report [facility] Gastroenterology [address] [place] [address] OFFICE VISIT Date of Service: 07/23/24 MR#: [id number] Acct: [id number] Name: KENYATTA CARRILLO Rep #: [id number] : 1960 Provider: Dr. Jerry huitron MD Age/Sex: 63/F [facility] [facility] Status: Signed Intake Vital Signs 06/13/24 15:45 07/23/24 12:44 Height 6 ft 6 ft Weight: 189 lb BMI 25.6 BP 150/87 H Blood Pressure Location Lt brachial Position Sitting Respiration 16 Pulse 97 Pulse Source Monitor Temp 98.4 F Temp Source Oral Pulse Oximetry (%) 96 Oxygen Delivery Method room air Intake Visit Reasons: ER FU Chief Complaint: ED FU GI BLEED Stream Control Officer Required: No Accompanied by: Caregiver Is patient [...] anemia, alcohol abuse, bipolar 05/2024- Transferred from [facility] to [facility] for GI bleed. Blood clots in emesis. OV 3..- No alcohol in last 2 months. Reports long history of vomiting. Patient came to [facility] ED in shock state, systolic blood pressure 70, blood clots in his stool, dark blood and vomiting and body was found in his stool on the floor. Resides at [facility]. Mechanical soft diet. 3 weeks ago emesis [...] Arthritis, sci (more content not included)... Normal [facility] 07-17-2024 CNPN Telephone (PODCCP) -------- KENYATTA CARRILLO ([id number]) 1960 F Date Time Provider Department 07/17/24 [facility] During your visit today, we recorded the following information about you: Alexy Newsome 07/17/2024 10:03 AM Signed Patient is an exclusion from post discharge call back program (Assisted Facility) Allergies As of Date: 07/17/2024 Noted [...] by mouth once daily. Follow-up with your toll patrolman to decide on tapering down do not stop abruptly without plan for discontinuation with your toll patrolman - pantoprazole DR (PROTONIX) 40 mg tablet [...] [R53.81] 11/22/2020 Diagnosed: 05/22/2023 Other physical therapy [[id number]] 02/02/2003 Diagnosed: 05/22/2023 Pain in right hip [M25.551] 11/23/2020 Diagnosed: 05/22/2023 Polyp of colon (more content not included)... Normal [facility] CNPNon 07-08-2024 CNPN Telephone (PODCCP) -------- KENYATTA CARRILLO ([id number]) 1960 F Date Time Provider Department 07/08/24 NAYE SHEETS PODCCP During your visit today, we recorded the following information about you: Karolina Larsen 07/08/2024 3:35 PM Signed Patient is an exclusion from post discharge call back program for discharge date of 06/28/2024. ([facility]) Allergies As of Date: 07/08/2024 Noted Allergy [...] by mouth once daily. Follow-up with your toll patrolman to decide on tapering down do not stop abruptly without plan for discontinuation with your toll patrolman - pantoprazole DR (PROTONIX) 40 mg tablet [...] [R53.81] 11/22/2020 Diagnosed: 05/22/2023 Other physical therapy [[id number]] 02/02/2003 Diagnosed: 05/22/2023 Pain in right hip [M25.551] 11/23/2020 Diagnosed: 05/22/2023 Polyp of colon [K63.5] 01 (more content not included)... Normal [facility] CNPNon 07-01-2024 CNPN Telephone (PODCCP) -------- KENYATTA CARRILLO ([id number]) 1960 F Date Time Provider Department 07/01/24 NAYE SHEETS PODCCP During your visit today, we recorded the following information about you: Susi Patterson 07/01/2024 11:34 AM Signed Patient is an exclusion from post discharge call back program for discharge date of 06/28/2024. ([facility]) Allergies As of Date: 07/01/2024 Noted Allergy [...] by mouth once daily. Follow-up with your toll patrolman to decide on tapering down do not stop abruptly without plan for discontinuation with your toll patrolman - pantoprazole DR (PROTONIX) 40 mg tablet [...] [R53.81] 11/22/2020 Diagnosed: 05/22/2023 Other physical therapy [[id number]] 02/02/2003 Diagnosed: 05/22/2023 Pain in right hip [M25.551] 11/23/2020 Diagnosed: 05/22/2023 Polyp of colon [K63.5] 0 (more content not included)... Normal [facility] CASE MANAGEMon 06-28-2024 CASE MANAGEM Normal [facility] CASE MANAGEM Normal [facility] CBC panel Auto (Bld)on 06-28 Erythrocyte distribution width (RBC) [Ratio] 20.0 % High 11.5-15.0 [facility] Comment on above: Order Comment: Speci men Type: BLOOD SPECIMENOrdering Facility: [facility] Address: [address] [place] [address] Performed By: #### 5 8410-2 ####[facility] LABORATORYCLIA [id number] [address] [place] Hematocrit (Bld) [Volume fraction] 30.1 % Low 36.0-46.0 [facility] Comment on above: Order Comment: Speci men Type: BLOOD SPECIMENOrdering Facility: [facility] Address: [address] [place] [address] Performed By: #### 5 8410-2 ####[facility] LABORATORYCLIA [id number] [place] [address] [place] Hemoglobin (Bld) [Mass/Vol] 10.0 g/dL Low 11.5-15.5 [facility] Comment on above: Order Comment: Speci men Type: BLOOD SPECIMENOrdering Facility: [facility] Address: [address] [place] [address] Performed By: #### 5 8410-2 ####[facility] LABORATORYCLIA [id number] [address] MCH (RBC) [Entitic mass] 32.8 pg Normal 26.0-34.0 [facility] Comment on above: Order Comment: Speci men Type: BLOOD SPECIMENOrdering Facility: [facility] Address: [address] [place] [address] Performed By: #### 5 8410-2 ####[facility] LABORATORYCLIA [id number] [address] MCHC (RBC) [Mass/Vol] 33.2 g/dL Normal 30.5-36.0 [facility] Comment on above: Order Comment: Speci men Type: BLOOD SPECIMENOrdering Facility: [facility] Address: [address] [place] [address] Performed By: #### 5 8410-2 ####[facility] LABORATORYCLIA [id number] [address] MCV (RBC) [Entitic vol] 98.7 fL Normal 80.0-100.0 [facility] Comment on above: Order Comment: Speci men Type: BLOOD SPECIMENOrdering Facility: [facility] Address: [address] [place] [address] Performed By: #### 5 8410-2 ####[facility] LABORATORYCLIA [id number] [address] Nucleated RBC (Bld) [#/Vol] 10*3/uL Normal <0.01 [facility] Comment on above: Order Comment: Speci men Type: BLOOD SPECIMENOrdering Facility: [facility] Address: [address] [place] [address] Performed By: #### 5 8410-2 ####[facility] LABORATORYCLIA [id number] [place] [address] [place] Platelet mean volume (Bld) [Entitic vol] 9.9 fL Normal 9.0-12.7 [facility] Comment on above: Order Comment: Speci men Type: BLOOD SPECIMENOrdering Facility: [facility] Address: [address] [place] [address] Performed By: #### 5 8410-2 ####[facility] LABORATORYCLIA [id number] [place] [address] [place] Platelets (Bld) [#/Vol] 251 10*3/uL Normal 150-400 [facility] Comment on above: Order Comment: Speci men Type: BLOOD SPECIMENOrdering Facility: [facility] Address: [address] [place] [address] Performed By: #### 5 8410-2 ####[facility] LABORATORYCLIA [id number] [address] [place] RBC (Bld) [#/Vol] 3.05 10*6/uL Low 3.90-5.20 [facility] Comment on above: Order Comment: Speci men Type: BLOOD SPECIMENOrdering Facility: [facility] Address: [address] [place] [address] Performed By: #### 5 8410-2 ####[facility]ORATORYCLIA [id number] [address] [place] WBC (Bld) [#/Vol] 11.46 10*3/uL High 3.70-11.00 [facility] Comment on above: Order Comment: Speci men Type: BLOOD SPECIMENOrdering Facility: [facility] Address: [address] [place] [address] Performed By: #### 5 8410-2 ####[facility] LABORATORYCLIA [id number] [address] [place] CNDSon 06-28-2024 CNDS Normal [facility] Comprehensive metabolic 2000 panelon 06-28-2024 Albumin [Mass/Vol] 2.6 g/dL Low 3.9-4.9 [facility] Comment on above: Order Comment: Speci men Type: BLOOD SPECIMENOrdering Facility: [facility] Address: [address] [place] [address] Performed By: #### 2 4323-8, 2776-05, ####[facility] LABORATORYCLIA [id number] [address] STATES OF [facility] ALP [Catalytic activity/Vol] 284 U/L High 34-123 [facility] Comment on above: Order Comment: Speci men Type: BLOOD SPECIMENOrdering Facility: [facility] Address: [address] [place] [address] Performed By: #### 2 4323-8, 2776-05, ####[facility] LABORATORYCLIA [id number] [address] STATES OF [facility] ALT With P-5'-P [Catalytic activity/Vol] 37 U/L Normal 7-38 [facility] Comment on above: Order Comment: Speci men Type: BLOOD SPECIMENOrdering Facility: [facility] Address: [address] [place] [address] Performed By: #### 2 4323-8, 2776-05, ####[facility] LABORATORYCLIA [id number] [address] [place] Anion gap [Moles/Vol] 11 mmol/L Normal 8-15 [facility] Comment on above: Order Comment: Speci men Type: BLOOD SPECIMENOrdering Facility: [facility] Address: [address] [place] [address] Performed By: #### 2 4323-8, 2776-05, ####[facility] LABORATORYCLIA [id number] [place] [address] [place] AST With P-5'-P [Catalytic activity/Vol] 53 U/L High 13-35 [facility] Comment on above: Order Comment: Speci men Type: BLOOD SPECIMENOrdering Facility: [facility] Address: [address] [place] [address] Performed By: #### 2 4323-8, 2776-05, ####[facility]ORATORYCLIA [id number] [place] [address] [place] Bilirubin [Mass/Vol] 2.1 mg/dL High 0.2-1.3 [facility] Comment on above: Order Comment: Speci men Type: BLOOD SPECIMENOrdering Facility: [facility] Address: [address] [place] [address] Performed By: #### 2 4323-8, 2776-05, ####[facility] LABORATORYCLIA [id number] [place] [address] [place] Calcium [Mass/Vol] 7.9 mg/dL Low 8.5-10.2 [facility] Comment on above: Order Comment: Speci men Type: BLOOD SPECIMENOrdering Facility: [facility] Address: [address] [place] [address] Performed By: #### 2 4323-8, 2776-05, ####[facility] LABORATORYCLIA [id number] [place] [address] [place] Chloride [Moles/Vol] 103 mmol/L Normal 98-107 [facility] Comment on above: Order Comment: Speci men Type: BLOOD SPECIMENOrdering Facility: [facility] Address: [address] [place] [address] Performed By: #### 2 4323-8, 2776-05, ####[facility] LABORATORYCLIA [id number] [place] [address] [place] CO2 [Moles/Vol] 19 mmol/L Low 22-30 [facility] Comment on above: Order Comment: Speci men Type: BLOOD SPECIMENOrdering Facility: [facility] Address: [address] [place] [address] Performed By: #### 2 4323-8, 2776-05, ####[facility] LABORATORYCLIA [id number] [place] [address] [place] Creatinine [Mass/Vol] 0.54 mg/dL Low 0.58-0.96 [facility] Comment on above: Order Comment: Mady rivera Type: BLOOD SPECIMENOrdering Facility: [facility] Address: [address] [id number] Performed By: #### 2 4323-8, 2777-1, ####[facility] LABORATORYCLIA [id number] [place] [id number] [facility] Creatinine and Glomerular filtration rate.predicted panel (S/P/Bld) 102 mL/min/1.73m??? Normal >=60 [facility] Comment on above: Order Comment: Mady rivera Type: BLOOD SPECIMENOrdering Facility: [facility] Address: [address] [place] [address] Result Comment: Lily mated Glomerular Filtration Rate [...] GFR. Performed By: #### 2 4323-8, 27711-11, ####[facility]ORATORYCLIA [id number] [place] [address] [place] Glucose [Mass/Vol] 105 mg/dL High 74-99 [facility] Comment on above: Order Comment: Mady rivera Type: BLOOD SPECIMENOrdering Facility: [facility] Address: [address] [id number] Result Comment: The [place] [employer] (ADA) provides guidance for cutoff [...] Standards of Medical Care in Diabetes 2016, [place] [employer]. Diabetes Care. 2016.39(Suppl 1). Performed By: #### 2 4323-8, 2776-05, ####[facility]ORATORYCLIA [id number] [place] [address] [place] Potassium [Moles/Vol] 3.6 mmol/L Low 3.7-5.1 [facility] Comment on above: Order Comment: Speci men Type: BLOOD SPECIMENOrdering Facility: [facility] Address: [address] [place] [address] Performed By: #### 2 4323-8, 2776-05, ####[facility]ORATORYCLIA [id number] [place] [address] [place] Protein [Mass/Vol] 5.5 g/dL Low 6.3-8.0 [facility] Comment on above: Order Comment: Speci men Type: BLOOD SPECIMENOrdering Facility: [facility] Address: [address] [place] [address] Performed By: #### 2 4323-8, 2776-05, ####[facility]ORATORYCLIA [id number] [place] [address] [place] Sodium [Moles/Vol] 133 mmol/L Low 136-144 [facility] Comment on above: Order Comment: Speci men Type: BLOOD SPECIMENOrdering Facility: [facility] Address: [address] [place] [address] Performed By: #### 2 4323-8, 2776-05, ####[facility]ORATORYCLIA [id number] [place] [address] [place] Urea nitrogen [Mass/Vol] 9 mg/dL Normal 7-21 [facility] Comment on above: Order Comment: Speci men Type: BLOOD SPECIMENOrdering Facility: [facility] Address: [facility] [place] [address] Performed By: #### 2 4323-8, 2776-05, ####[facility]ORATORYCLIA [id number] [place] [address] [place] Magnesium SerPl-ncon 06-28 Magnesium [Mass/Vol] 1.3 mg/dL Low 1.7-2.3 [facility] Comment on above: Order Comment: Speci men Type: BLOOD SPECIMENOrdering Facility: [facility] Address: [address] [place] [address] Performed By: #### 2 4323-8, 2777-1, 74333-8 ####[facility]ORATORYCLIA [id number] [place] [address] [place] Phosphate SerPl-mCncon 06-28 Phosphate [Mass/Vol] 4.0 mg/dL Normal 2.7-4.8 [facility] Comment on above: Order Comment: Speci men Type: BLOOD SPECIMENOrdering Facility: [facility] Address: [address] [place] [address] Performed By: #### 2 4323-8, 2777-, ####[facility] LABORATORYCLIA [id number] [address] STATES OF [facility] CASE MANAGEMon 06-27-2024 CASE MANAGEM Normal [facility] CASE MANAGEM Normal [facility] CBC W Auto Differential pane l (Bld)on 06-27-2024 Basophils (Bld) [#/Vol] 10*3/uL Normal <0.11 [facility] Comment on above: Order Comment: Speci men Type: BLOOD SPECIMENOrdering Facility: [facility] Address: [address] [place] [address] Performed By: #### 5 7021-8 ####[facility] LABORATORYCLIA [id number] [address] [place] Basophils/100 WBC (Bld) 0.1 % Normal [facility] Comment on above: Order Comment: Speci men Type: BLOOD SPECIMENOrdering Facility: [facility] Address: [address] [place] [address] Performed By: #### 5 7021-8 ####[facility]ORATORYCLIA [id number] [address] Differential cell count method Nom (Bld) Auto Normal [facility] Comment on above: Order Comment: Speci men Type: BLOOD SPECIMENOrdering Facility: [facility] Address: [address] [place] [address] Performed By: #### 5 7021-8 ####[facility] [facility]AL LABORATORYCLIA [id number] [address] Eosinophils (Bld) [#/Vol] 10*3/uL Normal <0.46 [facility] Comment on above: Order Comment: Speci men Type: BLOOD SPECIMENOrdering Facility: [facility] Address: [address] [place] [address] Performed By: #### 5 7021-8 ####[facility] LABORATORYCLIA [id number] [address] Eosinophils/100 WBC (Bld) 0.1 % Normal [facility] Comment on above: Order Comment: Speci men Type: BLOOD SPECIMENOrdering Facility: [facility] Address: [address] [place] [address] Performed By: #### 5 7021-8 ####[facility] LABORATORYCLIA [id number] [address] [place] Erythrocyte distribution width (RBC) [Ratio] 19.8 % High 11.5-15.0 [facility] Comment on above: Order Comment: Speci men Type: BLOOD SPECIMENOrdering Facility: [facility] Address: [address] [place] [address] Performed By: #### 5 7021-8 ####[facility] LABORATORYCLIA [id number] [address] Hematocrit (Bld) [Volume fraction] 31.6 % Low 36.0-46.0 [facility] Comment on above: Order Comment: Speci men Type: BLOOD SPECIMENOrdering Facility: [facility] Address: [address] [place] [address] Performed By: #### 5 7021-8 ####[facility] LABORATORYCLIA [id number] [place] [address] [place] Hemoglobin (Bld) [Mass/Vol] 10.2 g/dL Low 11.5-15.5 [facility] Comment on above: Order Comment: Speci men Type: BLOOD SPECIMENOrdering Facility: [facility] Address: [address] [place] [address] Performed By: #### 5 7021-8 ####[facility] LABORATORYCLIA [id number] [place] [address] [place] Immature granulocytes (Bld) [#/Vol] 0.11 10*3/uL High <0.10 [facility] Comment on above: Order Comment: Speci men Type: BLOOD SPECIMENOrdering Facility: [facility] Address: [address] [place] [address] Performed By: #### 5 7021-8 ####[facility] LABORATORYCLIA [id number] [address] [place] Immature granulocytes/100 WBC (Bld) 0.8 % Normal [facility] Comment on above: Order Comment: Speci men Type: BLOOD SPECIMENOrdering Facility: [facility] Address: [address] [place] [address] Performed By: #### 5 7021-8 ####[facility] LABORATORYCLIA [id number] [place] [address] [place] Lymphocytes (Bld) [#/Vol] 2.15 10*3/uL Normal 1.00-4.00 [facility] Comment on above: Order Comment: Speci men Type: BLOOD SPECIMENOrdering Facility: [facility] Address: [address] [place] [address] Performed By: #### 5 7021-8 ####[facility] LABORATORYCLIA [id number] [address] [place] Lymphocytes/100 WBC (Bld) 15.8 % Normal [facility] Comment on above: Order Comment: Speci men Type: BLOOD SPECIMENOrdering Facility: [facility] Address: [address] [place] [address] Performed By: #### 5 7021-8 ####[facility] LABORATORYCLIA [id number] [address] MCH (RBC) [Entitic mass] 31.9 pg Normal 26.0-34.0 [facility] Comment on above: Order Comment: Speci men Type: BLOOD SPECIMENOrdering Facility: [facility] Address: [address] [place] [address] Performed By: #### 5 7021-8 ####[facility] LABORATORYCLIA [id number] [address] MCHC (RBC) [Mass/Vol] 32.3 g/dL Normal 30.5-36.0 [facility] Comment on above: Order Comment: Speci men Type: BLOOD SPECIMENOrdering Facility: [facility] Address: [address] [place] [address] Performed By: #### 5 7021-8 ####[facility] LABORATORYCLIA [id number] [address] MCV (RBC) [Entitic vol] 98.8 fL Normal 80.0-100.0 [facility] Comment on above: Order Comment: Speci men Type: BLOOD SPECIMENOrdering Facility: [facility] Address: [address] [place] [address] Performed By: #### 5 7021-8 ####[facility] LABORATORYCLIA [id number] [address] Monocytes (Bld) [#/Vol] 1.07 10*3/uL High <0.87 [facility] Comment on above: Order Comment: Speci men Type: BLOOD SPECIMENOrdering Facility: [facility] Address: [address] [place] [address] Performed By: #### 5 7021-8 ####[facility] LABORATORYCLIA [id number] [address] Monocytes/100 WBC (Bld) 7.9 % Normal [facility] Comment on above: Order Comment: Speci men Type: BLOOD SPECIMENOrdering Facility: [facility] Address: [address] [place] [address] Performed By: #### 5 7021-8 ####[facility] LABORATORYCLIA [id number] [place] [address] [place] Neutrophils (Bld) [#/Vol] 10.27 10*3/uL High 1.45-7.50 [facility] Comment on above: Order Comment: Speci men Type: BLOOD SPECIMENOrdering Facility: [facility] Address: [address] [place] [address] Performed By: #### 5 7021-8 ####[facility] LABORATORYCLIA [id number] [address] [place] Neutrophils/100 WBC (Bld) 75.3 % Normal [facility] Comment on above: Order Comment: Speci men Type: BLOOD SPECIMENOrdering Facility: [facility] Address: [address] [place] [address] Performed By: #### 5 7021-8 ####[facility] LABORATORYCLIA [id number] [address] [place] Nucleated RBC (Bld) [#/Vol] 10*3/uL Normal <0.01 [facility] Comment on above: Order Comment: Speci men Type: BLOOD SPECIMENOrdering Facility: [facility] Address: [address] [place] [address] Performed By: #### 5 7021-8 ####[facility] LABORATORYCLIA [id number] [address] [place] Nucleated RBC/100 WBC (Bld) [Ratio] 0.0 /100 WBC Normal [facility] Comment on above: Order Comment: Speci men Type: BLOOD SPECIMENOrdering Facility: [facility] Address: [address] [place] [address] Performed By: #### 5 7021-8 ####[facility] LABORATORYCLIA [id number] [place], [place] [address] [place] [address] [place] Platelet mean volume (Bld) [Entitic vol] 10.0 fL Normal 9.0-12.7 [facility] Comment on above: Order Comment: Speci men Type: BLOOD SPECIMENOrdering Facility: [facility] Address: [address] [place] [address] Performed By: #### 5 7021-8 ####[facility] LABORATORYCLIA [id number] [address] OF [facility] Platelets (Bld) [#/Vol] 261 10*3/uL Normal 150-400 [facility] Comment on above: Order Comment: Speci men Type: BLOOD SPECIMENOrdering Facility: [facility] Address: [address] [place] [address] Performed By: #### 5 7021-8 ####[facility] LABORATORYCLIA [id number] [address] [place] RBC (Bld) [#/Vol] 3.20 10*6/uL Low 3.90-5.20 [facility] Comment on above: Order Comment: Speci men Type: BLOOD SPECIMENOrdering Facility: [facility] Address: [address] [place] [address] Performed By: #### 5 7021-8 ####[facility] LABORATORYCLIA [id number] [place] [address] [place] WBC (Bld) [#/Vol] 13.63 10*3/uL High 3.70-11.00 [facility] Comment on above: Order Comment: Speci men Type: BLOOD SPECIMENOrdering Facility: [facility] Address: [address] [place] [address] Performed By: #### 5 7021-8 ####[facility] LABORATORYCLIA [id number] [address] [place] Comprehensive metabolic 2000 panelon 06-27-2024 Albumin [Mass/Vol] 2.6 g/dL Low 3.9-4.9 [facility] Comment on above: Order Comment: Speci men Type: BLOOD SPECIMENOrdering Facility: [facility] Address: [address] [place] [address] Performed By: #### 2 4323-8 ####[facility] LABORATORYCLIA [id number] [address] [place] ALP [Catalytic activity/Vol] 313 U/L High 34-123 [facility] Comment on above: Order Comment: Speci men Type: BLOOD SPECIMENOrdering Facility: [facility] Address: [address] [place] [address] Performed By: #### 2 4323-8 ####[facility] LABORATORYCLIA [id number] [address] [place] ALT With P-5'-P [Catalytic activity/Vol] 37 U/L Normal 7-38 [facility] Comment on above: Order Comment: Speci men Type: BLOOD SPECIMENOrdering Facility: [facility] Address: [address] [place] [address] Performed By: #### 2 4323-8 ####[facility] LABORATORYCLIA [id number] [place] [address] [place] Anion gap [Moles/Vol] 10 mmol/L Normal 8-15 [facility] Comment on above: Order Comment: Speci men Type: BLOOD SPECIMENOrdering Facility: [facility] Address: [address] [place] [address] Performed By: #### 2 4323-8 ####[facility] LABORATORYCLIA [id number] [address] [place] AST With P-5'-P [Catalytic activity/Vol] 57 U/L High 13-35 [facility] Comment on above: Order Comment: Speci men Type: BLOOD SPECIMENOrdering Facility: [facility] Address: [address] [place] [address] Performed By: #### 2 4323-8 ####[facility] LABORATORYCLIA [id number] [address] [place] Bilirubin [Mass/Vol] 2.3 mg/dL High 0.2-1.3 [facility] Comment on above: Order Comment: Speci men Type: BLOOD SPECIMENOrdering Facility: [facility] Address: [address] [place] [address] Performed By: #### 2 4323-8 ####[facility] LABORATORYCLIA [id number] [place] [address] [place] Calcium [Mass/Vol] 7.7 mg/dL Low 8.5-10.2 [facility] Comment on above: Order Comment: Speci men Type: BLOOD SPECIMENOrdering Facility: [facility] Address: [address] [place] [address] Performed By: #### 2 4323-8 ####[facility] LABORATORYCLIA [id number] [place] [address] [place] Chloride [Moles/Vol] 104 mmol/L Normal 98-107 [facility] Comment on above: Order Comment: Speci men Type: BLOOD SPECIMENOrdering Facility: [facility] Address: [address] [place] [address] Performed By: #### 2 4323-8 ####[facility] LABORATORYCLIA [id number] [place] [address] [place] CO2 [Moles/Vol] 19 mmol/L Low 22-30 [facility] Comment on above: Order Comment: Speci men Type: BLOOD SPECIMENOrdering Facility: [facility] Address: [address] [place] [address] Performed By: #### 2 4323-8 ####[facility] LABORATORYCLIA [id number] [place] [address] [place] Creatinine [Mass/Vol] 0.51 mg/dL Low 0.58-0.96 [facility] Comment on above: Order Comment: Speci men Type: BLOOD SPECIMENOrdering Facility: [facility] Address: [address] [place] [address] Performed By: #### 2 4323-8 ####[facility] LABORATORYCLIA [id number] [place] [address] [place] Creatinine and Glomerular filtration rate.predicted panel (S/P/Bld) 104 mL/min/1.73m??? Normal >=60 [facility] Comment on above: Order Comment: Mady rivera Type: BLOOD SPECIMENOrdering Facility: [facility] Address: [address] [place] [address] Result Comment: Lily mated Glomerular Filtration Rate [...] actual GFR. Performed By: #### 2 4323-8 ####[facility] LABORATORYCLIA [id number] [place] [address] [place] Glucose [Mass/Vol] 114 mg/dL High 74-99 [facility] Comment on above: Order Comment: Mady rivera Type: BLOOD SPECIMENOrdering Facility: [facility] Address: [address] [place] [address] Result Comment: The [place] [employer] (ADA) provides guidance for cutoff [...] Standards of Medical Care in Diabetes 2016, [place] [employer]. Diabetes Care. 2016.39(Suppl 1). Performed By: #### 2 4323-8 ####[facility] LABORATORYCLIA [id number] [place] [id number] [place] Potassium [Moles/Vol] 4.0 mmol/L Normal 3.7-5.1 [facility] Comment on above: Order Comment: Speci men Type: BLOOD SPECIMENOrdering Facility: [facility] Address: [address] [place] [address] Performed By: #### 2 4323-8 ####[facility] LABORATORYCLIA [id number] [address] [place] Protein [Mass/Vol] 5.3 g/dL Low 6.3-8.0 [facility] Comment on above: Order Comment: Speci men Type: BLOOD SPECIMENOrdering Facility: [facility] Address: [address] [place] [address] Performed By: #### 2 4323-8 ####[facility] LABORATORYCLIA [id number] [address] [place] Sodium [Moles/Vol] 133 mmol/L Low 136-144 [facility] Comment on above: Order Comment: Speci men Type: BLOOD SPECIMENOrdering Facility: [facility] Address: [address] [place] [address] Performed By: #### 2 4323-8 ####[facility] LABORATORYCLIA [id number] [address] [place] Urea nitrogen [Mass/Vol] 10 mg/dL Normal 7-21 [facility] Comment on above: Order Comment: Speci men Type: BLOOD SPECIMENOrdering Facility: [facility] Address: [address] [place] [address] Performed By: #### 2 4323-8 ####[facility] LABORATORYCLIA [id number] [address] [place] THERAPY NTon 06-27-2024 THERAPY NT Normal [facility] CBC panel Auto (Bld)on 06-26 Erythrocyte distribution width (RBC) [Ratio] 19.7 % High 11.5-15.0 [facility] Comment on above: Order Comment: Speci men Type: BLOOD SPECIMENOrdering Facility: [facility] Address: [address] [place] [address] Performed By: #### 5 8410-2 ####[facility] LABORATORYCLIA [id number] [address] Hematocrit (Bld) [Volume fraction] 36.7 % Normal 36.0-46.0 [facility] Comment on above: Order Comment: Speci men Type: BLOOD SPECIMENOrdering Facility: [facility] Address: [address] [place] [address] Performed By: #### 5 8410-2 ####[facility] LABORATORYCLIA [id number] [address] [place] Hemoglobin (Bld) [Mass/Vol] 11.7 g/dL Normal 11.5-15.5 [facility] Comment on above: Order Comment: Speci men Type: BLOOD SPECIMENOrdering Facility: [facility] Address: [address] [place] [address] Performed By: #### 5 8410-2 ####[facility] LABORATORYCLIA [id number] [address] MCH (RBC) [Entitic mass] 31.4 pg Normal 26.0-34.0 [facility] Comment on above: Order Comment: Speci men Type: BLOOD SPECIMENOrdering Facility: [facility] Address: [address] [place] [address] Performed By: #### 5 8410-2 ####[facility] LABORATORYCLIA [id number] [address] [place] MCHC (RBC) [Mass/Vol] 31.9 g/dL Normal 30.5-36.0 [facility] Comment on above: Order Comment: Speci men Type: BLOOD SPECIMENOrdering Facility: [facility] Address: [address] [place] [address] Performed By: #### 5 8410-2 ####[facility] LABORATORYCLIA [id number] [address] MCV (RBC) [Entitic vol] 98.4 fL Normal 80.0-100.0 [facility] Comment on above: Order Comment: Speci men Type: BLOOD SPECIMENOrdering Facility: [facility] Address: [address] [place] [address] Performed By: #### 5 8410-2 ####[facility] LABORATORYCLIA [id number] [address] [place] Nucleated RBC (Bld) [#/Vol] 10*3/uL Normal <0.01 [facility] Comment on above: Order Comment: Speci men Type: BLOOD SPECIMENOrdering Facility: [facility] Address: [address] [place] [address] Performed By: #### 5 8410-2 ####[facility] LABORATORYCLIA [id number] [address] [place] Platelet mean volume (Bld) [Entitic vol] 10.3 fL Normal 9.0-12.7 [facility] Comment on above: Order Comment: Speci men Type: BLOOD SPECIMENOrdering Facility: [facility] Address: [address] [place] [address] Performed By: #### 5 8410-2 ####[facility] LABORATORYCLIA [id number] [address] [place] Platelets (Bld) [#/Vol] 261 10*3/uL Normal 150-400 [facility] Comment on above: Order Comment: Speci men Type: BLOOD SPECIMENOrdering Facility: [facility] Address: [address] [place] [address] Performed By: #### 5 8410-2 ####[facility] LABORATORYCLIA [id number] [place] [address] [place] RBC (Bld) [#/Vol] 3.73 10*6/uL Low 3.90-5.20 [facility] Comment on above: Order Comment: Speci men Type: BLOOD SPECIMENOrdering Facility: [facility] Address: [address] [place] [address] Performed By: #### 5 8410-2 ####[facility] LABORATORYCLIA [id number] [place] [address] [place] WBC (Bld) [#/Vol] 12.55 10*3/uL High 3.70-11.00 [facility] Comment on above: Order Comment: Speci men Type: BLOOD SPECIMENOrdering Facility: [facility] Address: [address] [place] [address] Performed By: #### 5 8410-2 ####[facility] LABORATORYCLIA [id number] [address] OF [facility] Comprehensive metabolic 2000 panelon 06-26-2024 Albumin [Mass/Vol] 2.8 g/dL Low 3.9-4.9 [facility] Comment on above: Order Comment: Speci men Type: BLOOD SPECIMENOrdering Facility: [facility] Address: [address] [place] [address] Performed By: #### 2 4323-8 ####[facility] LABORATORYCLIA [id number] [address] OF [facility] ALP [Catalytic activity/Vol] 361 U/L High 34-123 [facility] Comment on above: Order Comment: Speci men Type: BLOOD SPECIMENOrdering Facility: [facility] Address: [address] [place] [address] Performed By: #### 2 4323-8 ####[facility] LABORATORYCLIA [id number] [address] ALT With P-5'-P [Catalytic activity/Vol] 43 U/L High 7-38 [facility] Comment on above: Order Comment: Speci men Type: BLOOD SPECIMENOrdering Facility: [facility] Address: [address] [place] [address] Performed By: #### 2 4323-8 ####[facility] LABORATORYCLIA [id number] [address] OF [facility] Anion gap [Moles/Vol] 11 mmol/L Normal 8-15 [facility] Comment on above: Order Comment: Speci men Type: BLOOD SPECIMENOrdering Facility: [facility] Address: [address] [place] [address] Performed By: #### 2 4323-8 ####[facility]ORATORYCLIA [id number] [place] [address] [place] AST With P-5'-P [Catalytic activity/Vol] 63 U/L High 13-35 [facility] Comment on above: Order Comment: Speci men Type: BLOOD SPECIMENOrdering Facility: [facility] Address: [address] [place] [address] Performed By: #### 2 4323-8 ####[facility] LABORATORYCLIA [id number] [place] [address] [place] Bilirubin [Mass/Vol] 3.2 mg/dL High 0.2-1.3 [facility] Comment on above: Order Comment: Speci men Type: BLOOD SPECIMENOrdering Facility: [facility] Address: [address] [place] [address] Performed By: #### 2 4323-8 ####[facility] LABORATORYCLIA [id number] [place] [address] [place] Calcium [Mass/Vol] 7.9 mg/dL Low 8.5-10.2 [facility] Comment on above: Order Comment: Speci men Type: BLOOD SPECIMENOrdering Facility: [facility] Address: [address] [place] [address] Performed By: #### 2 4323-8 ####[facility] LABORATORYCLIA [id number] [place] [address] [place] Chloride [Moles/Vol] 99 mmol/L Normal 98-107 [facility] Comment on above: Order Comment: Speci men Type: BLOOD SPECIMENOrdering Facility: [facility] Address: [address] [place] [address] Performed By: #### 2 4323-8 ####[facility] LABORATORYCLIA [id number] [place] [address] [place] CO2 [Moles/Vol] 20 mmol/L Low 22-30 [facility] Comment on above: Order Comment: Speci men Type: BLOOD SPECIMENOrdering Facility: [facility] Address: [address] [place] [address] Performed By: #### 2 4323-8 ####[facility] LABORATORYCLIA [id number] [place] [id number] [place] [facility] Creatinine [Mass/Vol] 0.53 mg/dL Low 0.58-0.96 [facility] Comment on above: Order Comment: Mady irvera Type: BLOOD SPECIMENOrdering Facility: [facility] Address: [address] [place] [address] Performed By: #### 2 4323-8 ####[facility] LABORATORYCLIA [id number] [address] Creatinine and Glomerular filtration rate.predicted panel (S/P/Bld) 103 mL/min/1.73m??? Normal >=60 [facility] Comment on above: Order Comment: Mady rivera Type: BLOOD SPECIMENOrdering Facility: [facility] Address: [address] [place] [address] Result Comment: Lily mated Glomerular Filtration Rate [...] actual GFR. Performed By: #### 2 4323-8 ####[facility] LABORATORYCLIA [id number] [address] STATES OF [facility] Glucose [Mass/Vol] 84 mg/dL Normal 74-99 [facility] Comment on above: Order Comment: Mady rivera Type: BLOOD SPECIMENOrdering Facility: [facility] Address: [address] [place] [address] Result Comment: The [place] [employer] (ADA) provides guidance for cutoff [...] Standards of Medical Care in Diabetes 2016, [place] [employer]. Diabetes Care. 2016.39(Suppl 1). Performed By: #### 2 4323-8 ####[facility] LABORATORYCLIA [id number] [place] [address] [place] Potassium [Moles/Vol] 4.4 mmol/L Normal 3.7-5.1 [facility] Comment on above: Order Comment: Speci men Type: BLOOD SPECIMENOrdering Facility: [facility] Address: [address] [place] [address] Performed By: #### 2 4323-8 ####[facility] LABORATORYCLIA [id number] [place] [address] [place] Protein [Mass/Vol] 6.0 g/dL Low 6.3-8.0 [facility] Comment on above: Order Comment: Speci men Type: BLOOD SPECIMENOrdering Facility: [facility] Address: [address] [place] [address] Performed By: #### 2 4323-8 ####[facility] LABORATORYCLIA [id number] [place] [address] [place] Sodium [Moles/Vol] 130 mmol/L Low 136-144 [facility] Comment on above: Order Comment: Speci men Type: BLOOD SPECIMENOrdering Facility: [facility] Address: [address] [place] [address] Performed By: #### 2 4323-8 ####[facility] LABORATORYCLIA [id number] [place] [address] [place] Urea nitrogen [Mass/Vol] 11 mg/dL Normal 7-21 [facility] Comment on above: Order Comment: Speci men Type: BLOOD SPECIMENOrdering Facility: [facility] Address: [address] [place] [address] Performed By: #### 2 4323-8 ####[facility] LABORATORYCLIA [id number] [address] [place] THERAPY NTon 06-26-2024 THERAPY NT Normal [facility] CASE MANAGEMon 06-25-2024 CASE MANAGEM Normal [facility] CASE MANAGEM Normal [facility] CBC panel Auto (Bld)on 06-25 Erythrocyte distribution width (RBC) [Ratio] 19.5 % High 11.5-15.0 [facility] Comment on above: Order Comment: Speci men Type: BLOOD SPECIMENOrdering Facility: [facility] Address: [address] [place] [address] Performed By: #### 5 8410-2 ####[facility] LABORATORYCLIA [id number] [address] [place] Hematocrit (Bld) [Volume fraction] 34.5 % Low 36.0-46.0 [facility] Comment on above: Order Comment: Speci men Type: BLOOD SPECIMENOrdering Facility: [facility] Address: [address] [place] [address] Performed By: #### 5 8410-2 ####[facility] LABORATORYCLIA [id number] [address] [place] Hemoglobin (Bld) [Mass/Vol] 11.1 g/dL Low 11.5-15.5 [facility] Comment on above: Order Comment: Speci men Type: BLOOD SPECIMENOrdering Facility: [facility] Address: [address] [place] [address] Performed By: #### 5 8410-2 ####[facility] LABORATORYCLIA [id number] [address] [place] MCH (RBC) [Entitic mass] 31.4 pg Normal 26.0-34.0 [facility] Comment on above: Order Comment: Speci men Type: BLOOD SPECIMENOrdering Facility: [facility] Address: [address] [place] [address] Performed By: #### 5 8410-2 ####[facility] LABORATORYCLIA [id number] [address] [place] MCHC (RBC) [Mass/Vol] 32.2 g/dL Normal 30.5-36.0 [facility] Comment on above: Order Comment: Speci men Type: BLOOD SPECIMENOrdering Facility: [facility] Address: [address] [place] [address] Performed By: #### 5 8410-2 ####[facility] LABORATORYCLIA [id number] [address] [place] MCV (RBC) [Entitic vol] 97.5 fL Normal 80.0-100.0 [facility] Comment on above: Order Comment: Speci men Type: BLOOD SPECIMENOrdering Facility: [facility] Address: [address] [place] [address] Performed By: #### 5 8410-2 ####[facility] LABORATORYCLIA [id number] [address] [place] Nucleated RBC (Bld) [#/Vol] 10*3/uL Normal <0.01 [facility] Comment on above: Order Comment: Speci men Type: BLOOD SPECIMENOrdering Facility: [facility] Address: [address] [place] [address] Performed By: #### 5 8410-2 ####[facility] LABORATORYCLIA [id number] [address] [place] Platelet mean volume (Bld) [Entitic vol] 10.5 fL Normal 9.0-12.7 [facility] Comment on above: Order Comment: Speci men Type: BLOOD SPECIMENOrdering Facility: [facility] Address: [address] [place] [address] Performed By: #### 5 8410-2 ####[facility] LABORATORYCLIA [id number] [place] [address] [place] Platelets (Bld) [#/Vol] 229 10*3/uL Normal 150-400 [facility] Comment on above: Order Comment: Speci men Type: BLOOD SPECIMENOrdering Facility: [facility] Address: [address] [place] [address] Performed By: #### 5 8410-2 ####[facility] LABORATORYCLIA [id number] [place], [place] [id number] [place] [address] OF [facility] RBC (Bld) [#/Vol] 3.54 10*6/uL Low 3.90-5.20 [facility] Comment on above: Order Comment: Speci men Type: BLOOD SPECIMENOrdering Facility: [facility] Address: [address] [place] [address] Performed By: #### 5 8410-2 ####[facility] LABORATORYCLIA [id number] [address] OF [facility] WBC (Bld) [#/Vol] 10.12 10*3/uL Normal 3.70-11.00 [facility] Comment on above: Order Comment: Speci men Type: BLOOD SPECIMENOrdering Facility: [facility] Address: [address] [place] [address] Performed By: #### 5 8410-2 ####[facility] LABORATORYCLIA [id number] [address] Comprehensive metabolic 2000 panelon 06-25-2024 Albumin [Mass/Vol] 2.5 g/dL Low 3.9-4.9 [facility] Comment on above: Order Comment: Speci men Type: BLOOD SPECIMENOrdering Facility: [facility] Address: [address] [place] [address] Performed By: #### 2 4323-8 ####[facility] LABORATORYCLIA [id number] [address] ALP [Catalytic activity/Vol] 323 U/L High 34-123 [facility] Comment on above: Order Comment: Speci men Type: BLOOD SPECIMENOrdering Facility: [facility] Address: [address] [place] [address] Performed By: #### 2 4323-8 ####[facility] LABORATORYCLIA [id number] [address] ALT With P-5'-P [Catalytic activity/Vol] 39 U/L High 7-38 [facility] Comment on above: Order Comment: Speci men Type: BLOOD SPECIMENOrdering Facility: [facility] Address: [address] [place] [address] Performed By: #### 2 4323-8 ####[facility] LABORATORYCLIA [id number] [place] [address] [place] Anion gap [Moles/Vol] 10 mmol/L Normal 8-15 [facility] Comment on above: Order Comment: Speci men Type: BLOOD SPECIMENOrdering Facility: [facility] Address: [address] [place] [address] Performed By: #### 2 4323-8 ####[facility] LABORATORYCLIA [id number] [address] [place] AST With P-5'-P [Catalytic activity/Vol] 55 U/L High 13-35 [facility] Comment on above: Order Comment: Speci men Type: BLOOD SPECIMENOrdering Facility: [facility] Address: [address] [place] [address] Performed By: #### 2 4323-8 ####[facility]ORATORYCLIA [id number] [address] [place] Bilirubin [Mass/Vol] 3.0 mg/dL High 0.2-1.3 [facility] Comment on above: Order Comment: Speci men Type: BLOOD SPECIMENOrdering Facility: [facility] Address: [address] [place] [address] Performed By: #### 2 4323-8 ####[facility]ORATORYCLIA [id number] [place] [address] [place] Calcium [Mass/Vol] 7.2 mg/dL Low 8.5-10.2 [facility] Comment on above: Order Comment: Speci men Type: BLOOD SPECIMENOrdering Facility: [facility] Address: [address] [place] [address] Performed By: #### 2 4323-8 ####[facility]ORATORYCLIA [id number] [place] [address] [place] Chloride [Moles/Vol] 105 mmol/L Normal 98-107 [facility] Comment on above: Order Comment: Speci men Type: BLOOD SPECIMENOrdering Facility: [facility] Address: [address] [place] [address] Performed By: #### 2 4323-8 ####[facility]ORATORYCLIA [id number] [address] STATES OF [facility] CO2 [Moles/Vol] 21 mmol/L Low 22-30 [facility] Comment on above: Order Comment: Speci men Type: BLOOD SPECIMENOrdering Facility: [facility] Address: [address] [place] [address] Performed By: #### 2 4323-8 ####[facility]LECLIA [id number] [address] Creatinine [Mass/Vol] 0.61 mg/dL Normal 0.58-0.96 [facility] Comment on above: Order Comment: Speci men Type: BLOOD SPECIMENOrdering Facility: [facility] Address: [address] [place] [address] Performed By: #### 2 4323-8 ####[facility]ORATORYCLIA [id number] [address] Creatinine and Glomerular filtration rate.predicted panel (S/P/Bld) 99 mL/min/1.73m??? Normal >=60 [facility] Comment on above: Order Comment: Speci men Type: BLOOD SPECIMENOrdering Facility: [facility] Address: [address] [place] [address] Result Comment: Lily mated Glomerular Filtration Rate [...] actual GFR. Performed By: #### 2 4323-8 ####[facility]ORATORYCLIA [id number] [place] [address] [place] Glucose [Mass/Vol] 104 mg/dL High 74-99 [facility] Comment on above: Order Comment: Speci men Type: BLOOD SPECIMENOrdering Facility: [facility] Address: [address] [place] [address] Result Comment: The [place] [employer] (ADA) provides guidance for cutoff [...] Standards of Medical Care in Diabetes 2016, [place] [employer]. Diabetes Care. 2016.39(Suppl 1). Performed By: #### 2 4323-8 ####[facility]ORATORYCLIA [id number] [place] [address] [place] Potassium [Moles/Vol] 4.1 mmol/L Normal 3.7-5.1 [facility] Comment on above: Order Comment: Melissai men Type: BLOOD SPECIMENOrdering Facility: [facility] Address: [address] [place] [address] Performed By: #### 2 4323-8 ####[facility]ORATORYCLIA [id number] [place] [address] [place] Protein [Mass/Vol] 5.2 g/dL Low 6.3-8.0 [facility] Comment on above: Order Comment: Speci men Type: BLOOD SPECIMENOrdering Facility: [facility] Address: [address] [place] [address] Performed By: #### 2 4323-8 ####[facility]ORATORYCLIA [id number] [place] [address] [place] Sodium [Moles/Vol] 136 mmol/L Normal 136-144 [facility] Comment on above: Order Comment: Speci men Type: BLOOD SPECIMENOrdering Facility: [facility] Address: [address] [place] [address] Performed By: #### 2 4323-8 ####[facility]ORATORYCLIA [id number] [place] [address] [place] Urea nitrogen [Mass/Vol] 11 mg/dL Normal 7-21 [facility] Comment on above: Order Comment: Speci men Type: BLOOD SPECIMENOrdering Facility: [facility] Address: [address] [place] [address] Performed By: #### 2 4323-8 ####[facility]ORATORYCLIA [id number] [place] [id number] [place] NUTRITIONon 06-25-2024 NUTRITION Normal [facility] THERAPY NTon 06-25-2024 THERAPY NT Normal [facility] CASE MANAGEMon 06-24-2024 CASE MANAGEM Normal [facility] CASE MANAGEM Normal [facility] CBC panel Auto (Bld)on 06-24 Erythrocyte distribution width (RBC) [Ratio] 18.9 % High 11.5-15.0 [facility] Comment on above: Order Comment: Speci men Type: BLOOD SPECIMENOrdering Facility: [facility] Address: [address] [place] [address] Performed By: #### 5 8410-2 ####[facility]ORATORYCLIA [id number] [address] [place] Hematocrit (Bld) [Volume fraction] 34.0 % Low 36.0-46.0 [facility] Comment on above: Order Comment: Speci men Type: BLOOD SPECIMENOrdering Facility: [facility] Address: [address] [place] [address] Performed By: #### 5 8410-2 ####[facility]ORATORYCLIA [id number] [place] [address] [place] Hemoglobin (Bld) [Mass/Vol] 11.0 g/dL Low 11.5-15.5 [facility] Comment on above: Order Comment: Speci men Type: BLOOD SPECIMENOrdering Facility: [facility] Address: [address] [place] [address] Performed By: #### 5 8410-2 ####[facility]ORATORYCLIA [id number] [address] MCH (RBC) [Entitic mass] 31.4 pg Normal 26.0-34.0 [facility] Comment on above: Order Comment: Speci men Type: BLOOD SPECIMENOrdering Facility: [facility] Address: [address] [place] [address] Performed By: #### 5 8410-2 ####[facility]ORATORYCLIA [id number] [address] MCHC (RBC) [Mass/Vol] 32.4 g/dL Normal 30.5-36.0 [facility] Comment on above: Order Comment: Speci men Type: BLOOD SPECIMENOrdering Facility: [facility] Address: [address] [place] [address] Performed By: #### 5 8410-2 ####[facility]ORATORYCLIA [id number] [address] MCV (RBC) [Entitic vol] 97.1 fL Normal 80.0-100.0 [facility] Comment on above: Order Comment: Speci men Type: BLOOD SPECIMENOrdering Facility: [facility] Address: [address] [place] [address] Performed By: #### 5 8410-2 ####[facility]ORATORYCLIA [id number] [address] Nucleated RBC (Bld) [#/Vol] 10*3/uL Normal <0.01 [facility] Comment on above: Order Comment: Speci men Type: BLOOD SPECIMENOrdering Facility: [facility] Address: [address] [place] [address] Performed By: #### 5 8410-2 ####[facility] LABORATORYCLIA [id number] [place] [address] [place] Platelet mean volume (Bld) [Entitic vol] 10.8 fL Normal 9.0-12.7 [facility] Comment on above: Order Comment: Speci men Type: BLOOD SPECIMENOrdering Facility: [facility] Address: [address] [place] [address] Performed By: #### 5 8410-2 ####[facility]ORATORYCLIA [id number] [place] [address] [place] Platelets (Bld) [#/Vol] 218 10*3/uL Normal 150-400 [facility] Comment on above: Order Comment: Speci men Type: BLOOD SPECIMENOrdering Facility: [facility] Address: [address] [place] [address] Performed By: #### 5 8410-2 ####[facility]ORATORYCLIA [id number] [place] [address] [place] RBC (Bld) [#/Vol] 3.50 10*6/uL Low 3.90-5.20 [facility] Comment on above: Order Comment: Speci men Type: BLOOD SPECIMENOrdering Facility: [facility] Address: [address] [place] [address] Performed By: #### 5 8410-2 ####[facility]ORATORYCLIA [id number] [place] [address] [place] WBC (Bld) [#/Vol] 9.15 10*3/uL Normal 3.70-11.00 [facility] Comment on above: Order Comment: Speci men Type: BLOOD SPECIMENOrdering Facility: [facility] Address: [address] [place] [address] Performed By: #### 5 8410-2 ####[facility]ORATORYCLIA [id number] [place] [address] [place] Comprehensive metabolic 2000 panelon 06-24-2024 Albumin [Mass/Vol] 2.6 g/dL Low 3.9-4.9 [facility] Comment on above: Order Comment: Speci men Type: BLOOD SPECIMENOrdering Facility: [facility] Address: [address] [place], [place] [address] Performed By: #### 2 432-8, ####[facility]ORATORYCLIA [id number] [place] [address] [place] ALP [Catalytic activity/Vol] 349 U/L High 34-123 [facility] Comment on above: Order Comment: Speci men Type: BLOOD SPECIMENOrdering Facility: [facility] Address: [address] [place] [address] Performed By: #### 2 4328, ####[facility]ORATORYCLIA [id number] [place] [address] [place] ALT With P-5'-P [Catalytic activity/Vol] 44 U/L High 7-38 [facility] Comment on above: Order Comment: Speci men Type: BLOOD SPECIMENOrdering Facility: [facility] Address: [address] [place] [address] Performed By: #### 2 43207-19, ####[facility] LABORATORYCLIA [id number] [address] [place] Anion gap [Moles/Vol] 9 mmol/L Normal 8-15 [facility] Comment on above: Order Comment: Speci men Type: BLOOD SPECIMENOrdering Facility: [facility] Address: [address] [place] [address] Performed By: #### 2 4328, ####[facility]ORATORYCLIA [id number] [place] [address] [place] AST With P-5'-P [Catalytic activity/Vol] Normal [facility] Comment on above: Order Comment: Speci men Type: BLOOD SPECIMENOrdering Facility: [facility] Address: [address] [place] [address] Result Comment: Unab le to assay due to interference from hemolysis. Suggest reorder as clinically indicated. Performed By: #### 2 4323-8, ####[facility] LABORATORYCLIA [id number] [place] [address] [place] Bilirubin [Mass/Vol] 3.6 mg/dL High 0.2-1.3 [facility] Comment on above: Order Comment: Speci men Type: BLOOD SPECIMENOrdering Facility: [facility] Address: [address] [place] [address] Performed By: #### 2 432-8, ####[facility]ORATORYCLIA [id number] [place] [address] [place] Calcium [Mass/Vol] 7.2 mg/dL Low 8.5-10.2 [facility] Comment on above: Order Comment: Speci men Type: BLOOD SPECIMENOrdering Facility: [facility] Address: [address] [place] [address] Performed By: #### 2 4322-8, ####[facility] LABORATORYCLIA [id number] [place] [address] [place] Chloride [Moles/Vol] 104 mmol/L Normal 98-107 [facility] Comment on above: Order Comment: Speci men Type: BLOOD SPECIMENOrdering Facility: [facility] Address: [address] [place] [address] Performed By: #### 2 8, ####[facility] [facility]ORATORYCLIA [id number] [place] [address] [place] CO2 [Moles/Vol] 22 mmol/L Normal 22-30 [facility] Comment on above: Order Comment: Speci men Type: BLOOD SPECIMENOrdering Facility: [facility] Address: [address] [place] [address] Performed By: #### 2 4323-8, ####[facility]ORATORYCLIA [id number] [place] [address] [place] Creatinine [Mass/Vol] 0.62 mg/dL Normal 0.58-0.96 [facility] Comment on above: Order Comment: Speci men Type: BLOOD SPECIMENOrdering Facility: [facility] Address: [address] [place] [address] Performed By: #### 2 4323-8, ####[facility]LECLIA [id number] [place] [id number] [facility] Creatinine and Glomerular filtration rate.predicted panel (S/P/Bld) 99 mL/min/1.73m??? Normal >=60 [facility] Comment on above: Order Comment: Mady rivera Type: BLOOD SPECIMENOrdering Facility: [facility] Address: [address] [place] [address] Result Comment: Lily mated Glomerular Filtration Rate [...] actual GFR. Performed By: #### 2 4323-8, 82996-0 ####[facility]OSPITALIA [id number] [address] [place] Glucose [Mass/Vol] 75 mg/dL Normal 74-99 [facility] Comment on above: Order Comment: Mady rivera Type: BLOOD SPECIMENOrdering Facility: [facility] Address: [address] [place] [address] Result Comment: The [place] [employer] (ADA) provides guidance for cutoff [...] Standards of Medical Care in Diabetes 2016, [place] [employer]. Diabetes Care. 2016.39(Suppl 1). Performed By: #### 2 4323-8, 99006-8 ####[facility] LABORATORYCLIA [id number] [place] [address] [place] Potassium [Moles/Vol] 4.1 mmol/L Normal 3.7-5.1 [facility] Comment on above: Order Comment: Speci men Type: BLOOD SPECIMENOrdering Facility: [facility] Address: [address] [place] [address] Performed By: #### 2 4323-8, ####[facility]ORATORYCLIA [id number] [place] [address] [place] Protein [Mass/Vol] 5.2 g/dL Low 6.3-8.0 [facility] Comment on above: Order Comment: Speci men Type: BLOOD SPECIMENOrdering Facility: [facility] Address: [address] [place] [address] Performed By: #### 2 4323-8, ####[facility]ORATORYCLIA [id number] [place] [address] [place] Sodium [Moles/Vol] 135 mmol/L Low 136-144 [facility] Comment on above: Order Comment: Speci men Type: BLOOD SPECIMENOrdering Facility: [facility] Address: [address] [place] [address] Performed By: #### 2 4323-8, ####[facility]ORATORYCLIA [id number] [place] [address] [place] Urea nitrogen [Mass/Vol] 11 mg/dL Normal 7-21 [facility] Comment on above: Order Comment: Speci men Type: BLOOD SPECIMENOrdering Facility: [facility] Address: [address] [place] [address] Performed By: #### 2 4323-8, ####[facility]ORATORYCLIA [id number] [place] [address] [place] Magnesium SerPl-mCncon 06-24 Magnesium [Mass/Vol] 1.1 mg/dL Low 1.7-2.3 [facility] Comment on above: Order Comment: Speci men Type: BLOOD SPECIMENOrdering Facility: [facility] Address: [address] [place] [address] Performed By: #### 2 4323-8, 05486-0 ####[facility] LABORATORYCLIA [id number] [address] CASE MANAGEMon 06-23-2024 CASE MANAGEM Normal [facility] CBC panel Auto (Bld)on 06-23 Erythrocyte distribution width (RBC) [Ratio] 18.5 % High 11.5-15.0 [facility] Comment on above: Order Comment: Speci men Type: BLOOD SPECIMENOrdering Facility: [facility] Address: [address] [place] [address] Performed By: #### 5 8410-2 ####[facility] LABORATORYCLIA [id number] [address] STATES [facility] Hematocrit (Bld) [Volume fraction] 35.4 % Low 36.0-46.0 [facility] Comment on above: Order Comment: Speci men Type: BLOOD SPECIMENOrdering Facility: [facility] Address: [address] [place] [address] Performed By: #### 5 8410-2 ####[facility]ORATORYCLIA [id number] [address] [place] Hemoglobin (Bld) [Mass/Vol] 11.6 g/dL Normal 11.5-15.5 [facility] Comment on above: Order Comment: Speci men Type: BLOOD SPECIMENOrdering Facility: [facility] Address: [address] [place] [address] Performed By: #### 5 8410-2 ####[facility]ORATORYCLIA [id number] [address] STATES [facility] MCH (RBC) [Entitic mass] 31.4 pg Normal 26.0-34.0 [facility] Comment on above: Order Comment: Speci men Type: BLOOD SPECIMENOrdering Facility: [facility] Address: [address] [place] [address] Performed By: #### 5 8410-2 ####[facility]ORATORYCLIA [id number] [address] [place] MCHC (RBC) [Mass/Vol] 32.8 g/dL Normal 30.5-36.0 [facility] Comment on above: Order Comment: Speci men Type: BLOOD SPECIMENOrdering Facility: [facility] Address: [address] [place] [address] Performed By: #### 5 8410-2 ####[facility]ORATORYCLIA [id number] [address] [place] MCV (RBC) [Entitic vol] 95.9 fL Normal 80.0-100.0 [facility] Comment on above: Order Comment: Speci men Type: BLOOD SPECIMENOrdering Facility: [facility] Address: [address] [place] [address] Performed By: #### 5 8410-2 ####[facility]ORATORYCLIA [id number] [address] [place] Nucleated RBC (Bld) [#/Vol] 10*3/uL Normal <0.01 [facility] Comment on above: Order Comment: Speci men Type: BLOOD SPECIMENOrdering Facility: [facility] Address: [address] [place] [address] Performed By: #### 5 8410-2 ####[facility]ORATORYCLIA [id number] [address] [place] Platelet mean volume (Bld) [Entitic vol] 11.3 fL Normal 9.0-12.7 [facility] Comment on above: Order Comment: Speci men Type: BLOOD SPECIMENOrdering Facility: [facility] Address: [address] [place] [address] Performed By: #### 5 8410-2 ####[facility]ORATORYCLIA [id number] [address] [place] Platelets (Bld) [#/Vol] 183 10*3/uL Normal 150-400 [facility] Comment on above: Order Comment: Speci men Type: BLOOD SPECIMENOrdering Facility: [facility] Address: [address] [place] [address] Performed By: #### 5 8410-2 ####[facility] LABORATORYCLIA [id number] [address] RBC (Bld) [#/Vol] 3.69 10*6/uL Low 3.90-5.20 [facility] Comment on above: Order Comment: Speci men Type: BLOOD SPECIMENOrdering Facility: [facility] Address: [address] [place] [address] Performed By: #### 5 8410-2 ####[facility]ORATORYCLIA [id number] [address] WBC (Bld) [#/Vol] 7.76 10*3/uL Normal 3.70-11.00 [facility] Comment on above: Order Comment: Speci men Type: BLOOD SPECIMENOrdering Facility: [facility] Address: [address] [place] [address] Performed By: #### 5 8410-2 ####[facility]ORATORYCLIA [id number] [address] Comprehensive metabolic 2000 panelon 06-23-2024 Albumin [Mass/Vol] 2.5 g/dL Low 3.9-4.9 [facility] Comment on above: Order Comment: Speci men Type: BLOOD SPECIMENOrdering Facility: [facility] Address: [address] [place] [address] Performed By: #### 2 4323-8 ####[facility] LABORATORYCLIA [id number] [address] ALP [Catalytic activity/Vol] 335 U/L High 34-123 [facility] Comment on above: Order Comment: Speci men Type: BLOOD SPECIMENOrdering Facility: [facility] Address: [address] [place] [address] Performed By: #### 2 4323-8 ####[facility] LABORATORYCLIA [id number] [address] ALT With P-5'-P [Catalytic activity/Vol] Normal [facility] Comment on above: Order Comment: Speci men Type: BLOOD SPECIMENOrdering Facility: [facility] Address: [address] [place] [address] Result Comment: Unab le to assay due to interference from hemolysis. Suggest reorder as clinically indicated. Performed By: #### 2 4323-8 ####[facility] LABORATORYCLIA [id number] [address] Anion gap [Moles/Vol] 7 mmol/L Low 8-15 [facility] Comment on above: Order Comment: Speci men Type: BLOOD SPECIMENOrdering Facility: [facility] Address: [address] [place] [address] Performed By: #### 2 4323-8 ####[facility] LABORATORYCLIA [id number] [address] STATES OF [facility] AST With P-5'-P [Catalytic activity/Vol] Normal [facility] Comment on above: Order Comment: Speci men Type: BLOOD SPECIMENOrdering Facility: [facility] Address: [address] [place] [address] Result Comment: Unab le to assay due to interference from hemolysis. Suggest reorder as clinically indicated. Performed By: #### 2 4323-8 ####[facility] LABORATORYCLIA [id number] [address] STATES OF [facility] Bilirubin [Mass/Vol] 3.9 mg/dL High 0.2-1.3 [facility] Comment on above: Order Comment: Speci men Type: BLOOD SPECIMENOrdering Facility: [facility] Address: [address] [place] [address] Performed By: #### 2 4323-8 ####[facility] LABORATORYCLIA [id number] [address] OF [facility] Calcium [Mass/Vol] 7.2 mg/dL Low 8.5-10.2 [facility] Comment on above: Order Comment: Speci men Type: BLOOD SPECIMENOrdering Facility: [facility] Address: [address] [place] [address] Performed By: #### 2 4323-8 ####[facility] LABORATORYCLIA [id number] [address] [place] Chloride [Moles/Vol] 103 mmol/L Normal 98-107 [facility] Comment on above: Order Comment: Speci men Type: BLOOD SPECIMENOrdering Facility: [facility] Address: [address] [place] [address] Performed By: #### 2 4323-8 ####[facility] LABORATORYCLIA [id number] [address] STATES [place] CO2 [Moles/Vol] 22 mmol/L Normal 22-30 [facility] Comment on above: Order Comment: Speci men Type: BLOOD SPECIMENOrdering Facility: [facility] Address: [address] [place] [address] Performed By: #### 2 4323-8 ####[facility] LABORATORYCLIA [id number] [address] OF [facility] Creatinine [Mass/Vol] 0.67 mg/dL Normal 0.58-0.96 [facility] Comment on above: Order Comment: Speci men Type: BLOOD SPECIMENOrdering Facility: [facility] Address: [address] [place] [address] Performed By: #### 2 4323-8 ####[facility] LABORATORYCLIA [id number] [address] Creatinine and Glomerular filtration rate.predicted panel (S/P/Bld) 97 mL/min/1.73m??? Normal >=60 [facility] Comment on above: Order Comment: Speci men Type: BLOOD SPECIMENOrdering Facility: [facility] Address: [address] [place] [address] Result Comment: Lily mated Glomerular Filtration Rate [...] actual GFR. Performed By: #### 2 4323-8 ####[facility]LECLIA [id number] [place] [address] [place] Glucose [Mass/Vol] 83 mg/dL Normal 74-99 [facility] Comment on above: Order Comment: Mady rivera Type: BLOOD SPECIMENOrdering Facility: [facility] Address: [address] [place] [address] Result Comment: The [place] [employer] (ADA) provides guidance for cutoff [...] Standards of Medical Care in Diabetes 2016, [place] [employer]. Diabetes Care. 2016.39(Suppl 1). Performed By: #### 2 4323-8 ####[facility]LECLIA [id number] [place] [address] [place] Potassium [Moles/Vol] Normal [facility] Comment on above: Order Comment: Mady rivera Type: BLOOD SPECIMENOrdering Facility: [facility] Address: [address] [place] [address] Result Comment: Unab le to assay due to interference from hemolysis. Suggest reorder as clinically indicated. Performed By: #### 2 4323-8 ####[facility]ORATORYCLIA [id number] [place] [id number] [place] Protein [Mass/Vol] 5.3 g/dL Low 6.3-8.0 [facility] Comment on above: Order Comment: Mady rivera Type: BLOOD SPECIMENOrdering Facility: [facility] Address: [address] [place] [address] Performed By: #### 2 4323-8 ####[facility]ORATORYCLIA [id number] [address] STATES OF [facility] Sodium [Moles/Vol] 132 mmol/L Low 136-144 [facility] Comment on above: Order Comment: Speci men Type: BLOOD SPECIMENOrdering Facility: [facility] Address: [address] [place] [address] Performed By: #### 2 4323-8 ####[facility]ORATORYCLIA [id number] [address] STATES OF [facility] Urea nitrogen [Mass/Vol] 10 mg/dL Normal 7-21 [facility] Comment on above: Order Comment: Speci men Type: BLOOD SPECIMENOrdering Facility: [facility] Address: [address] [place] [address] Performed By: #### 2 4323-8 ####[facility]ORATORYCLIA [id number] [address] OF [facility] THERAPY NTon 06-23-2024 THERAPY NT Normal [facility] CASE MANAGEMon 06-22-2024 CASE MANAGEM Normal [facility] CBC panel Auto (Bld)on 06-22 Erythrocyte distribution width (RBC) [Ratio] 18.2 % High 11.5-15.0 [facility] Comment on above: Order Comment: Speci men Type: BLOOD SPECIMENOrdering Facility: [facility] Address: [address] [place] [address] Performed By: #### 5 8410-2 ####[facility] LABORATORYCLIA [id number] [address] STATES OF [facility] Hematocrit (Bld) [Volume fraction] 35.6 % Low 36.0-46.0 [facility] Comment on above: Order Comment: Speci men Type: BLOOD SPECIMENOrdering Facility: [facility] Address: [address] [place] [address] Performed By: #### 5 8410-2 ####[facility] LABORATORYCLIA [id number] [place] [address] [place] Hemoglobin (Bld) [Mass/Vol] 11.6 g/dL Normal 11.5-15.5 [facility] Comment on above: Order Comment: Speci men Type: BLOOD SPECIMENOrdering Facility: [facility] Address: [address] [place] [address] Performed By: #### 5 8410-2 ####[facility] LABORATORYCLIA [id number] [address] OF [facility] MCH (RBC) [Entitic mass] 31.3 pg Normal 26.0-34.0 [facility] Comment on above: Order Comment: Speci men Type: BLOOD SPECIMENOrdering Facility: [facility] Address: [address] [place] [address] Performed By: #### 5 8410-2 ####[facility] LABORATORYCLIA [id number] [address] OF [place] MCHC (RBC) [Mass/Vol] 32.6 g/dL Normal 30.5-36.0 [facility] Comment on above: Order Comment: Speci men Type: BLOOD SPECIMENOrdering Facility: [facility] Address: [address] [place] [address] Performed By: #### 5 8410-2 ####[facility] LABORATORYCLIA [id number] [address] MCV (RBC) [Entitic vol] 96.0 fL Normal 80.0-100.0 [facility] Comment on above: Order Comment: Speci men Type: BLOOD SPECIMENOrdering Facility: [facility] Address: [address] [place] [address] Performed By: #### 5 8410-2 ####[facility] LABORATORYCLIA [id number] [address] Nucleated RBC (Bld) [#/Vol] 10*3/uL Normal <0.01 [facility] Comment on above: Order Comment: Speci men Type: BLOOD SPECIMENOrdering Facility: [facility] Address: [address] [place] [address] Performed By: #### 5 8410-2 ####[facility]ORATORYCLIA [id number] [address] [place] Platelet mean volume (Bld) [Entitic vol] 10.6 fL Normal 9.0-12.7 [facility] Comment on above: Order Comment: Speci men Type: BLOOD SPECIMENOrdering Facility: [facility] Address: [address] [place] [address] Performed By: #### 5 8410-2 ####[facility] LABORATORYCLIA [id number] [address] [place] Platelets (Bld) [#/Vol] 177 10*3/uL Normal 150-400 [facility] Comment on above: Order Comment: Speci men Type: BLOOD SPECIMENOrdering Facility: [facility] Address: [address] [place] [address] Performed By: #### 5 8410-2 ####[facility]ORATORYCLIA [id number] [address] RBC (Bld) [#/Vol] 3.71 10*6/uL Low 3.90-5.20 [facility] Comment on above: Order Comment: Speci men Type: BLOOD SPECIMENOrdering Facility: [facility] Address: [address] [place] [address] Performed By: #### 5 8410-2 ####[facility]ORATORYCLIA [id number] [address] [place] WBC (Bld) [#/Vol] 6.07 10*3/uL Normal 3.70-11.00 [facility] Comment on above: Order Comment: Speci men Type: BLOOD SPECIMENOrdering Facility: [facility] Address: [address] [place] [address] Performed By: #### 5 8410-2 ####[facility]ORATORYCLIA [id number] [address] [place] Comprehensive metabolic 2000 panelon 06-22-2024 Albumin [Mass/Vol] 2.3 g/dL Low 3.9-4.9 [facility] Comment on above: Order Comment: Speci men Type: BLOOD SPECIMENOrdering Facility: [facility] Address: [facility] [place] [address] Performed By: #### 1 23-9, 80609-5 ####[facility] LABORATORYCLIA [id number] [address] STATES OF [facility] ALP [Catalytic activity/Vol] 370 U/L High 34-123 [facility] Comment on above: Order Comment: Speci men Type: BLOOD SPECIMENOrdering Facility: [facility] Address: [address] [place] [address] Performed By: #### 1 9, ####[facility]ORATORYCLIA [id number] [address] STATES OF [facility] ALT With P-5'-P [Catalytic activity/Vol] 53 U/L High 7-38 [facility] Comment on above: Order Comment: Speci men Type: BLOOD SPECIMENOrdering Facility: [facility] Address: [address] [place] [address] Performed By: #### 1 23-9, 91923-0 ####[facility]ORATORYCLIA [id number] [address] Anion gap [Moles/Vol] 11 mmol/L Normal 8-15 [facility] Comment on above: Order Comment: Speci men Type: BLOOD SPECIMENOrdering Facility: [facility] Address: [address] [place] [address] Performed By: #### 1 23-9, 96196-7 ####[facility]ORATORYCLIA [id number] [address] [place] AST With P-5'-P [Catalytic activity/Vol] 103 U/L High 13-35 [facility] Comment on above: Order Comment: Speci men Type: BLOOD SPECIMENOrdering Facility: [facility] Address: [address] [place] [address] Performed By: #### 1 239, ####[facility]ORATORYCLIA [id number] [place] [address] [place] Bilirubin [Mass/Vol] 4.2 mg/dL High 0.2-1.3 [facility] Comment on above: Order Comment: Speci men Type: BLOOD SPECIMENOrdering Facility: [facility] Address: [address] [place] [address] Performed By: #### 1 9123-9, ####[facility]ORATORYCLIA [id number] [place] [address] [place] Calcium [Mass/Vol] 7.3 mg/dL Low 8.5-10.2 [facility] Comment on above: Order Comment: Speci men Type: BLOOD SPECIMENOrdering Facility: [facility] Address: [address] [place] [address] Performed By: #### 1 9123-9, ####[facility] LABORATORYCLIA [id number] [place] [address] [place] Chloride [Moles/Vol] 106 mmol/L Normal 98-107 [facility] Comment on above: Order Comment: Speci men Type: BLOOD SPECIMENOrdering Facility: [facility] Address: [address] [place] [address] Performed By: #### 1 23-9, ####[facility]ORATORYCLIA [id number] [place] [address] [place] CO2 [Moles/Vol] 18 mmol/L Low 22-30 [facility] Comment on above: Order Comment: Speci men Type: BLOOD SPECIMENOrdering Facility: [facility] Address: [address] [place] [address] Performed By: #### 1 9123-9, ####[facility]ORATORYCLIA [id number] [place] [address] [place] Creatinine [Mass/Vol] 0.63 mg/dL Normal 0.58-0.96 [facility] Comment on above: Order Comment: Speci men Type: BLOOD SPECIMENOrdering Facility: [facility] Address: [address] [place] [address] Performed By: #### 1 9123-9, 93548-1 ####[facility] HOSPITALIA [id number] [place] [id number] [facility] Creatinine and Glomerular filtration rate.predicted panel (S/P/Bld) 99 mL/min/1.73m??? Normal >=60 [facility] Comment on above: Order Comment: Mady miguel Type: BLOOD SPECIMENOrdering Facility: [facility] Address: [address] [place] [address] Result Comment: Lily mated Glomerular Filtration Rate [...] actual GFR. Performed By: #### 1 9123-9, 60850-4 ####[facility] HOSPITALIA [id number] [place] [id number] [place] Glucose [Mass/Vol] 82 mg/dL Normal 74-99 [facility] Comment on above: Order Comment: Mady rivera Type: BLOOD SPECIMENOrdering Facility: [facility] Address: [address] [place] [address] Result Comment: The [place] [employer] (ADA) provides guidance for cutoff [...] Standards of Medical Care in Diabetes 2016, [place] [employer]. Diabetes Care. 2016.39(Suppl 1). Performed By: #### 1 23-9, ####[facility]ORATORYCLIA [id number] [place] [address] [place] Potassium [Moles/Vol] 4.1 mmol/L Normal 3.7-5.1 [facility] Comment on above: Order Comment: Speci men Type: BLOOD SPECIMENOrdering Facility: [facility] Address: [address] [place] [address] Performed By: #### 1 23-9, ####[facility]ATORYCLIA [id number] [place] [address] [place] Protein [Mass/Vol] 5.0 g/dL Low 6.3-8.0 [facility] Comment on above: Order Comment: Speci men Type: BLOOD SPECIMENOrdering Facility: [facility] Address: [address] [place] [address] Performed By: #### 1 9, ####[facility]ATORYCLIA [id number] [place] [address] [place] Sodium [Moles/Vol] 135 mmol/L Low 136-144 [facility] Comment on above: Order Comment: Speci men Type: BLOOD SPECIMENOrdering Facility: [facility] Address: [address] [place] [address] Performed By: #### 1 239, ####[facility]ATORYCLIA [id number] [place] [address] [place] Urea nitrogen [Mass/Vol] 9 mg/dL Normal 7-21 [facility] Comment on above: Order Comment: Speci men Type: BLOOD SPECIMENOrdering Facility: [facility] Address: [address] [place] [address] Performed By: #### 1 23-9, ####[facility]ORATORYCLIA [id number] [place] [address] [place] Magnesium SerPl-mCncon 06-22 Magnesium [Mass/Vol] 1.2 mg/dL Low 1.7-2.3 [facility] Comment on above: Order Comment: Speci men Type: BLOOD SPECIMENOrdering Facility: [facility] Address: [address] [place] [address] Performed By: #### 1 9123-9, 52621-6 ####[facility]ORATORYCLIA [id number] [address] [place] THERAPY NTon 06-22-2024 THERAPY NT Normal [facility] CBC panel Auto (Bld)on 06-21 Erythrocyte distribution width (RBC) [Ratio] 17.8 % High 11.5-15.0 [facility] Comment on above: Order Comment: Speci men Type: BLOOD SPECIMENOrdering Facility: [facility] Address: [address] [place] [address] Performed By: #### 5 8410-2 ####[facility] LABORATORYCLIA [id number] [address] STATES [facility] Hematocrit (Bld) [Volume fraction] 37.0 % Normal 36.0-46.0 [facility] Comment on above: Order Comment: Speci men Type: BLOOD SPECIMENOrdering Facility: [facility] Address: [address] [place] [address] Performed By: #### 5 8410-2 ####[facility]ORATORYCLIA [id number] [address] [place] Hemoglobin (Bld) [Mass/Vol] 11.9 g/dL Normal 11.5-15.5 [facility] Comment on above: Order Comment: Speci men Type: BLOOD SPECIMENOrdering Facility: [facility] Address: [address] [place] [address] Performed By: #### 5 8410-2 ####[facility] LABORATORYCLIA [id number] [address] STATES [facility] MCH (RBC) [Entitic mass] 30.4 pg Normal 26.0-34.0 [facility] Comment on above: Order Comment: Speci men Type: BLOOD SPECIMENOrdering Facility: [facility] Address: [address] [place] [address] Performed By: #### 5 8410-2 ####[facility] LABORATORYCLIA [id number] [address] MCHC (RBC) [Mass/Vol] 32.2 g/dL Normal 30.5-36.0 [facility] Comment on above: Order Comment: Speci men Type: BLOOD SPECIMENOrdering Facility: [facility] Address: [address] [place] [address] Performed By: #### 5 8410-2 ####[facility] LABORATORYCLIA [id number] [address] OF [facility] MCV (RBC) [Entitic vol] 94.6 fL Normal 80.0-100.0 [facility] Comment on above: Order Comment: Speci men Type: BLOOD SPECIMENOrdering Facility: [facility] Address: [address] [place] [address] Performed By: #### 5 8410-2 ####[facility] LABORATORYCLIA [id number] [address] Nucleated RBC (Bld) [#/Vol] 10*3/uL Normal <0.01 [facility] Comment on above: Order Comment: Speci men Type: BLOOD SPECIMENOrdering Facility: [facility] Address: [address] [place] [address] Performed By: #### 5 8410-2 ####[facility]ORATORYCLIA [id number] [address] STATES [facility] Platelet mean volume (Bld) [Entitic vol] 10.9 fL Normal 9.0-12.7 [facility] Comment on above: Order Comment: Speci men Type: BLOOD SPECIMENOrdering Facility: [facility] Address: [address] [place] [address] Performed By: #### 5 8410-2 ####[facility]ORATORYCLIA [id number] [address] STATES [place] Platelets (Bld) [#/Vol] 175 10*3/uL Normal 150-400 [facility] Comment on above: Order Comment: Speci men Type: BLOOD SPECIMENOrdering Facility: [facility] Address: [facility] [place] [address] Performed By: #### 5 8410-2 ####[facility] LABORATORYCLIA [id number] [address] STATES OF [facility] RBC (Bld) [#/Vol] 3.91 10*6/uL Normal 3.90-5.20 [facility] Comment on above: Order Comment: Speci men Type: BLOOD SPECIMENOrdering Facility: [facility] Address: [address] [place] [address] Performed By: #### 5 8410-2 ####[facility]ORATORYCLIA [id number] [address] STATES OF [facility] WBC (Bld) [#/Vol] 6.98 10*3/uL Normal 3.70-11.00 [facility] Comment on above: Order Comment: Speci men Type: BLOOD SPECIMENOrdering Facility: [facility] Address: [address] [place] [address] Performed By: #### 5 8410-2 ####[facility]ORATORYCLIA [id number] [address] OF [facility] Comprehensive metabolic 2000 panelon 06-21-2024 Albumin [Mass/Vol] 2.3 g/dL Low 3.9-4.9 [facility] Comment on above: Order Comment: Speci men Type: BLOOD SPECIMENOrdering Facility: [facility] Address: [address] [place] [address] Performed By: #### 2 4323-8, 92935-8 ####[facility]ORATORYCLIA [id number] [address] ALP [Catalytic activity/Vol] 375 U/L High 34-123 [facility] Comment on above: Order Comment: Speci men Type: BLOOD SPECIMENOrdering Facility: [facility] Address: [address] [place] [address] Performed By: #### 2 432-8, ####[facility]ORATORYCLIA [id number] [place] [address] [place] ALT With P-5'-P [Catalytic activity/Vol] 51 U/L High 7-38 [facility] Comment on above: Order Comment: Speci men Type: BLOOD SPECIMENOrdering Facility: [facility] Address: [address] [place] [address] Performed By: #### 2 8, ####[facility] LABORATORYCLIA [id number] [place] [address] [place] Anion gap [Moles/Vol] 8 mmol/L Normal 8-15 [facility] Comment on above: Order Comment: Speci men Type: BLOOD SPECIMENOrdering Facility: [facility] Address: [address] [place] [address] Performed By: #### 2 8, ####[facility]ORATORYCLIA [id number] [place] [address] [place] AST With P-5'-P [Catalytic activity/Vol] 114 U/L High 13-35 [facility] Comment on above: Order Comment: Speci men Type: BLOOD SPECIMENOrdering Facility: [facility] Address: [address] [place] [address] Performed By: #### 2 8, ####[facility]ORATORYCLIA [id number] [place] [address] [place] Bilirubin [Mass/Vol] 4.9 mg/dL High 0.2-1.3 [facility] Comment on above: Order Comment: Speci men Type: BLOOD SPECIMENOrdering Facility: [facility] Address: [address] [place] [address] Performed By: #### 2 4328, ####[facility]ORATORYCLIA [id number] [place] [address] [place] Calcium [Mass/Vol] 7.3 mg/dL Low 8.5-10.2 [facility] Comment on above: Order Comment: Speci men Type: BLOOD SPECIMENOrdering Facility: [facility] Address: [address] [place] [address] Performed By: #### 2 4323-8, ####[facility]ORATORYCLIA [id number] [place] [address] [place] Chloride [Moles/Vol] 101 mmol/L Normal 98-107 [facility] Comment on above: Order Comment: Speci men Type: BLOOD SPECIMENOrdering Facility: [facility] Address: [address] [place] [address] Performed By: #### 2 4328, ####[facility]ORATORYCLIA [id number] [address] STATES [place] CO2 [Moles/Vol] 23 mmol/L Normal 22-30 [facility] Comment on above: Order Comment: Speci men Type: BLOOD SPECIMENOrdering Facility: [facility] Address: [address] [place] [address] Performed By: #### 2 4328, ####[facility]ORATORYCLIA [id number] [place] [address] [place] Creatinine [Mass/Vol] 0.75 mg/dL Normal 0.58-0.96 [facility] Comment on above: Order Comment: Speci men Type: BLOOD SPECIMENOrdering Facility: [facility] Address: [address] [place] [address] Performed By: #### 2 4323-8, ####[facility] LABORATORYCLIA [id number] [address] [place] Creatinine and Glomerular filtration rate.predicted panel (S/P/Bld) 88 mL/min/1.73m??? Normal >=60 [facility] Comment on above: Order Comment: Speci men Type: BLOOD SPECIMENOrdering Facility: [facility] Address: [address] [place] [address] Result Comment: Lily mated Glomerular Filtration Rate [...] actual GFR. Performed By: #### 2 4323-8, ####[facility] LABORATORYCLIA [id number] [place] [address] [place] Glucose [Mass/Vol] 81 mg/dL Normal 74-99 [facility] Comment on above: Order Comment: Mady rivera Type: BLOOD SPECIMENOrdering Facility: [facility] Address: [address] [place], [place] [address] Result Comment: The [place] [employer] (ADA) provides guidance for cutoff [...] Standards of Medical Care in Diabetes 2016, [place] [employer]. Diabetes Care. 2016.39(Suppl 1). Performed By: #### 2 4323-, ####[facility] LABORATORYCLIA [id number] [place] [address] [place] Potassium [Moles/Vol] 4.4 mmol/L Normal 3.7-5.1 [facility] Comment on above: Order Comment: Mady rivera Type: BLOOD SPECIMENOrdering Facility: [facility] Address: [address] [place] [address] Performed By: #### 2 4323-, ####[facility] LABORATORYCLIA [id number] [place] [address] [place] Protein [Mass/Vol] 5.2 g/dL Low 6.3-8.0 [facility] Comment on above: Order Comment: Speci men Type: BLOOD SPECIMENOrdering Facility: [facility] Address: [address] [place] [address] Performed By: #### 2 4323-8, ####[facility] LABORATORYCLIA [id number] [address] [place] Sodium [Moles/Vol] 132 mmol/L Low 136-144 [facility] Comment on above: Order Comment: Speci men Type: BLOOD SPECIMENOrdering Facility: [facility] Address: [address] [place] [address] Performed By: #### 2 4323-8, ####[facility] LABORATORYCLIA [id number] [address] STATES OF [facility] Urea nitrogen [Mass/Vol] 11 mg/dL Normal 7-21 [facility] Comment on above: Order Comment: Speci men Type: BLOOD SPECIMENOrdering Facility: [facility] Address: [address] [place] [address] Performed By: #### 2 4323-8, ####[facility] LABORATORYCLIA [id number] [address] [place] Magnesium SerPl-mCncon 06-21 Magnesium [Mass/Vol] 1.5 mg/dL Low 1.7-2.3 [facility] Comment on above: Order Comment: Speci men Type: BLOOD SPECIMENOrdering Facility: [facility] Address: [address] [place] [address] Performed By: #### 2 4323-8, ####[facility] LABORATORYCLIA [id number] [place] [id number] [place] CASE MANAGEMon 06-20-2024 CASE MANAGEM Normal [facility] CASE MANAGEM Normal [facility] CBC panel Auto (Bld)on 06-20 Erythrocyte distribution width (RBC) [Ratio] 17.6 % High 11.5-15.0 [facility] Comment on above: Order Comment: Speci men Type: BLOOD SPECIMENOrdering Facility: [facility] Address: [address] [place] [address] Performed By: #### 5 8410-2 ####[facility] LABORATORYCLIA [id number] [address] OF [facility] Hematocrit (Bld) [Volume fraction] 35.6 % Low 36.0-46.0 [facility] Comment on above: Order Comment: Speci men Type: BLOOD SPECIMENOrdering Facility: [facility] Address: [address] [place] [address] Performed By: #### 5 8410-2 ####[facility] LABORATORYCLIA [id number] [address] [place] Hemoglobin (Bld) [Mass/Vol] 11.7 g/dL Normal 11.5-15.5 [facility] Comment on above: Order Comment: Speci men Type: BLOOD SPECIMENOrdering Facility: [facility] Address: [address] [place] [address] Performed By: #### 5 8410-2 ####[facility] LABORATORYCLIA [id number] [address] [place] MCH (RBC) [Entitic mass] 31.0 pg Normal 26.0-34.0 [facility] Comment on above: Order Comment: Speci men Type: BLOOD SPECIMENOrdering Facility: [facility] Address: [address] [place] [address] Performed By: #### 5 8410-2 ####[facility] LABORATORYCLIA [id number] [address] [place] MCHC (RBC) [Mass/Vol] 32.9 g/dL Normal 30.5-36.0 [facility] Comment on above: Order Comment: Speci men Type: BLOOD SPECIMENOrdering Facility: [facility] Address: [address] [place] [address] Performed By: #### 5 8410-2 ####[facility] LABORATORYCLIA [id number] [address] [place] MCV (RBC) [Entitic vol] 94.4 fL Normal 80.0-100.0 [facility] Comment on above: Order Comment: Speci men Type: BLOOD SPECIMENOrdering Facility: [facility] Address: [address] [place] [address] Performed By: #### 5 8410-2 ####[facility] LABORATORYCLIA [id number] [address] [place] Nucleated RBC (Bld) [#/Vol] 10*3/uL Normal <0.01 [facility] Comment on above: Order Comment: Speci men Type: BLOOD SPECIMENOrdering Facility: [facility] Address: [facility] [place] [address] Performed By: #### 5 8410-2 ####[facility] LABORATORYCLIA [id number] [address] [place] Platelet mean volume (Bld) [Entitic vol] 11.7 fL Normal 9.0-12.7 [facility] Comment on above: Order Comment: Speci men Type: BLOOD SPECIMENOrdering Facility: [facility] Address: [address] [place] [address] Performed By: #### 5 8410-2 ####[facility] LABORATORYCLIA [id number] [address] [place] Platelets (Bld) [#/Vol] 149 10*3/uL Low 150-400 [facility] Comment on above: Order Comment: Speci men Type: BLOOD SPECIMENOrdering Facility: [facility] Address: [address] [place] [address] Performed By: #### 5 8410-2 ####[facility]ORATORYCLIA [id number] [address] [place] RBC (Bld) [#/Vol] 3.77 10*6/uL Low 3.90-5.20 [facility] Comment on above: Order Comment: Speci men Type: BLOOD SPECIMENOrdering Facility: [facility] Address: [address] [place], [place] [address] Performed By: #### 5 8410-2 ####[facility] LABORATORYCLIA [id number] [place] [address] [facility] [place] WBC (Bld) [#/Vol] 7.73 10*3/uL Normal 3.70-11.00 [facility] Comment on above: Order Comment: Speci men Type: BLOOD SPECIMENOrdering Facility: [facility] Address: [address] [place] [address] Performed By: #### 5 8410-2 ####[facility]ORATORYCLIA [id number] [place] [address] [facility] OF [facility] Comprehensive metabolic 2000 panelon 06-20-2024 Albumin [Mass/Vol] 2.2 g/dL Low 3.9-4.9 [facility] Comment on above: Order Comment: Speci men Type: BLOOD SPECIMENOrdering Facility: [facility] Address: [address] [place] [address] Performed By: #### 1 9123-9, 10269-9, 2777-1 ####[facility] LABORATORYCLIA [id number] [place] [address] [place] ALP [Catalytic activity/Vol] 344 U/L High 34-123 [facility] Comment on above: Order Comment: Speci men Type: BLOOD SPECIMENOrdering Facility: [facility] Address: [address] [place] [address] Performed By: #### 1 9123-9, 52902-5, 2777-1 ####[facility]ORATORYCLIA [id number] [place] [address] [place] ALT With P-5'-P [Catalytic activity/Vol] 44 U/L High 7-38 [facility] Comment on above: Order Comment: Speci men Type: BLOOD SPECIMENOrdering Facility: [facility] Address: [address] [place] [address] Performed By: #### 1 9123-9, 26561-1, 2777-1 ####[facility] LABORATORYCLIA [id number] [place] [address] [place] Anion gap [Moles/Vol] 11 mmol/L Normal 8-15 [facility] Comment on above: Order Comment: Speci men Type: BLOOD SPECIMENOrdering Facility: [facility] Address: [address] [place] [address] Performed By: #### 1 9123-9, 25744-1, 2777-1 ####[facility]ORATORYCLIA [id number] [place] [address] [place] AST With P-5'-P [Catalytic activity/Vol] Normal [facility] Comment on above: Order Comment: Speci men Type: BLOOD SPECIMENOrdering Facility: [facility] Address: [address] [place] [address] Result Comment: Unab le to assay due to interference from hemolysis. Suggest reorder as clinically indicated. Performed By: #### 1 9123-9, 64839-6, 2776- ####[facility] LABORATORYCLIA [id number] [place] [address] [place] Bilirubin [Mass/Vol] 4.4 mg/dL High 0.2-1.3 [facility] Comment on above: Order Comment: Speci men Type: BLOOD SPECIMENOrdering Facility: [facility] Address: [address] [place] [address] Performed By: #### 1 9123-9, 85927-0, 277- ####[facility]ORATORYCLIA [id number] [place] [address] [place] Calcium [Mass/Vol] 7.4 mg/dL Low 8.5-10.2 [facility] Comment on above: Order Comment: Speci men Type: BLOOD SPECIMENOrdering Facility: [facility] Address: [address] [place] [address] Performed By: #### 1 9123-9, 22284-9, 2777-1 ####[facility] LABORATORYCLIA [id number] [place] [address] [place] Chloride [Moles/Vol] 102 mmol/L Normal 98-107 [facility] Comment on above: Order Comment: Speci men Type: BLOOD SPECIMENOrdering Facility: [facility] Address: [address] [place] [address] Performed By: #### 1 9123-9, 16378-4, 2776-05 ####[facility]ORATORYCLIA [id number] [place] [address] [place] [facility] CO2 [Moles/Vol] 25 mmol/L Normal 22-30 [facility] Comment on above: Order Comment: Speci men Type: BLOOD SPECIMENOrdering Facility: [facility] Address: [address] [place] [address] Performed By: #### 1 9123-9, , 2776-05 ####[facility]ORATORYCLIA [id number] [address] OF [facility] Creatinine [Mass/Vol] 0.66 mg/dL Normal 0.58-0.96 [facility] Comment on above: Order Comment: Speci men Type: BLOOD SPECIMENOrdering Facility: [facility] Address: [address] [place] [address] Performed By: #### 1 9123-9, , 2776-05 ####[facility] LABORATORYCLIA [id number] [address] Creatinine and Glomerular filtration rate.predicted panel (S/P/Bld) 97 mL/min/1.73m??? Normal >=60 [facility] Comment on above: Order Comment: Speci men Type: BLOOD SPECIMENOrdering Facility: [facility] Address: [address] [place] [address] Result Comment: Lily mated Glomerular Filtration Rate [...] Performed By: #### 1 9123-9, , 2776-05 ####[facility] LABORATORYCLIA [id number] [place] [address] [place] Glucose [Mass/Vol] 62 mg/dL Low 74-99 [facility] Comment on above: Order Comment: Speci men Type: BLOOD SPECIMENOrdering Facility: [facility] Address: [address] [place] [address] Result Comment: The [place] [employer] (ADA) provides guidance for cutoff [...] Standards of Medical Care in Diabetes 2016, [place] [employer]. Diabetes Care. 2016.39(Suppl 1). Performed By: #### 1 9123-9, , 2776-05 ####[facility]ORATORYCLIA [id number] [place] [address] [place] Potassium [Moles/Vol] 4.5 mmol/L Normal 3.7-5.1 [facility] Comment on above: Order Comment: Speci men Type: BLOOD SPECIMENOrdering Facility: [facility] Address: [address] [place] [address] Performed By: #### 1 9123-9, , 2776-05 ####[facility]ORATORYCLIA [id number] [place] [address] [place] Protein [Mass/Vol] 4.8 g/dL Low 6.3-8.0 [facility] Comment on above: Order Comment: Speci men Type: BLOOD SPECIMENOrdering Facility: [facility] Address: [address] [place], [place] [address] Performed By: #### 1 9123-9, , 2776-05 ####[facility] LABORATORYCLIA [id number] [place] [address] [place] Sodium [Moles/Vol] 138 mmol/L Normal 136-144 [facility] Comment on above: Order Comment: Speci men Type: BLOOD SPECIMENOrdering Facility: [facility] Address: [address] [place] [address] Performed By: #### 1 9123-9, 68147-1, 2777-1 ####[facility]ORATORYCLIA [id number] [place] [address] [place] Urea nitrogen [Mass/Vol] 13 mg/dL Normal 7-21 [facility] Comment on above: Order Comment: Speci men Type: BLOOD SPECIMENOrdering Facility: [facility] Address: [address] [place] [address] Performed By: #### 1 9123-9, 45514-0, 2777 ####[facility]ORATORYCLIA [id number] [place] [address] [place] Magnesium SerPl-mCncon 06-20 Magnesium [Mass/Vol] 1.7 mg/dL Normal 1.7-2.3 [facility] Comment on above: Order Comment: Speci men Type: BLOOD SPECIMENOrdering Facility: [facility] Address: [address] [place] [address] Performed By: #### 1 9123-9, 74441-2, 2777- ####[facility]ORATORYCLIA [id number] [place] [address] [place] Phosphate SerPl-mCncon 06-20 Phosphate [Mass/Vol] 1.3 mg/dL Low 2.7-4.8 [facility] Comment on above: Order Comment: Speci men Type: BLOOD SPECIMENOrdering Facility: [facility] Address: [address] [place] [address] Performed By: #### 1 9123-9, 08842-9, 2777-1 ####[facility] LABORATORYCLIA [id number] [address] [place] THERAPY NTon 06-20-2024 THERAPY NT Normal [facility] CASE MANAGEMon 06-19-2024 CASE MANAGEM Normal [facility] CBC panel Auto (Bld)on 06-19 Erythrocyte distribution width (RBC) [Ratio] 17.9 % High 11.5-15.0 [facility] Comment on above: Order Comment: Speci men Type: BLOOD SPECIMENOrdering Facility: [facility] Address: [address] [place] [address] Performed By: #### 5 8410-2 ####[facility] LABORATORYCLIA [id number] [address] OF [facility] Hematocrit (Bld) [Volume fraction] 41.7 % Normal 36.0-46.0 [facility] Comment on above: Order Comment: Speci men Type: BLOOD SPECIMENOrdering Facility: [facility] Address: [address] [place] [address] Performed By: #### 5 8410-2 ####[facility]ORATORYCLIA [id number] [address] [place] Hemoglobin (Bld) [Mass/Vol] 13.6 g/dL Normal 11.5-15.5 [facility] Comment on above: Order Comment: Speci men Type: BLOOD SPECIMENOrdering Facility: [facility] Address: [address] [place] [address] Performed By: #### 5 8410-2 ####[facility]ORATORYCLIA [id number] [address] [place] MCH (RBC) [Entitic mass] 31.3 pg Normal 26.0-34.0 [facility] Comment on above: Order Comment: Speci men Type: BLOOD SPECIMENOrdering Facility: [facility] Address: [address] [place] [address] Performed By: #### 5 8410-2 ####[facility]ORATORYCLIA [id number] [address] [place] MCHC (RBC) [Mass/Vol] 32.6 g/dL Normal 30.5-36.0 [facility] Comment on above: Order Comment: Speci men Type: BLOOD SPECIMENOrdering Facility: [facility] Address: [address] [place] [address] Performed By: #### 5 8410-2 ####[facility] LABORATORYCLIA [id number] [address] MCV (RBC) [Entitic vol] 95.9 fL Normal 80.0-100.0 [facility] Comment on above: Order Comment: Speci men Type: BLOOD SPECIMENOrdering Facility: [facility] Address: [address] [place] [address] Performed By: #### 5 8410-2 ####[facility]ORATORYCLIA [id number] [address] [place] Nucleated RBC (Bld) [#/Vol] 0.02 10*3/uL High <0.01 [facility] Comment on above: Order Comment: Speci men Type: BLOOD SPECIMENOrdering Facility: [facility] Address: [address] [place] [address] Performed By: #### 5 8410-2 ####[facility]ORATORYCLIA [id number] [address] Platelet mean volume (Bld) [Entitic vol] 12.0 fL Normal 9.0-12.7 [facility] Comment on above: Order Comment: Speci men Type: BLOOD SPECIMENOrdering Facility: [facility] Address: [address] [place] [address] Performed By: #### 5 8410-2 ####[facility]ORATORYCLIA [id number] [address] Platelets (Bld) [#/Vol] 97 10*3/uL Low 150-400 [facility] Comment on above: Order Comment: Speci men Type: BLOOD SPECIMENOrdering Facility: [facility] Address: [address] [place] [address] Performed By: #### 5 8410-2 ####[facility]ORATORYCLIA [id number] [address] [place] RBC (Bld) [#/Vol] 4.35 10*6/uL Normal 3.90-5.20 [facility] Comment on above: Order Comment: Speci men Type: BLOOD SPECIMENOrdering Facility: [facility] Address: [address] [place] [address] Performed By: #### 5 8410-2 ####[facility]ORATORYCLIA [id number] [address] WBC (Bld) [#/Vol] 7.18 10*3/uL Normal 3.70-11.00 [facility] Comment on above: Order Comment: Speci men Type: BLOOD SPECIMENOrdering Facility: [facility] Address: [address] [place] [address] Performed By: #### 5 8410-2 ####[facility]ORATORYCLIA [id number] [address] CONSULT PROGon 06-19-2024 CONSULT PROG Normal [facility] Comprehensive metabolic 2000 panelon 06-19-2024 Albumin [Mass/Vol] 2.3 g/dL Low 3.9-4.9 [facility] Comment on above: Order Comment: Speci men Type: BLOOD SPECIMENOrdering Facility: [facility] Address: [address] [place] [address] Performed By: #### 2 4323-8, 94965-4 ####[facility] LABORATORYCLIA [id number] [address] [place] ALP [Catalytic activity/Vol] 386 U/L High 34-123 [facility] Comment on above: Order Comment: Speci men Type: BLOOD SPECIMENOrdering Facility: [facility] Address: [address] [place] [address] Performed By: #### 2 4323-8, 25281-7 ####[facility] LABORATORYCLIA [id number] [address] ALT With P-5'-P [Catalytic activity/Vol] 35 U/L Normal 7-38 [facility] Comment on above: Order Comment: Speci men Type: BLOOD SPECIMENOrdering Facility: [facility] Address: [address] [place] [address] Performed By: #### 2 4323-8, ####[facility] LABORATORYCLIA [id number] [place] [address] [place] Anion gap [Moles/Vol] 13 mmol/L Normal 8-15 [facility] Comment on above: Order Comment: Speci men Type: BLOOD SPECIMENOrdering Facility: [facility] Address: [address] [place] [address] Performed By: #### 2 4322-8, ####[facility] LABORATORYCLIA [id number] [place] [address] [place] AST With P-5'-P [Catalytic activity/Vol] 112 U/L High 13-35 [facility] Comment on above: Order Comment: Speci men Type: BLOOD SPECIMENOrdering Facility: [facility] Address: [address] [place] [address] Performed By: #### 2 4322-8, ####[facility] LABORATORYCLIA [id number] [place] [address] [place] Bilirubin [Mass/Vol] 5.6 mg/dL High 0.2-1.3 [facility] Comment on above: Order Comment: Speci men Type: BLOOD SPECIMENOrdering Facility: [facility] Address: [address] [place] [address] Performed By: #### 2 4323-8, ####[facility] LABORATORYCLIA [id number] [address] [place] Calcium [Mass/Vol] 7.6 mg/dL Low 8.5-10.2 [facility] Comment on above: Order Comment: Speci men Type: BLOOD SPECIMENOrdering Facility: [facility] Address: [address] [place] [address] Performed By: #### 2 4323-8, ####[facility] LABORATORYCLIA [id number] [address] [place] Chloride [Moles/Vol] 104 mmol/L Normal 98-107 [facility] Comment on above: Order Comment: Speci men Type: BLOOD SPECIMENOrdering Facility: [facility] Address: [address] [place] [address] Performed By: #### 2 4323-8, ####[facility] LABORATORYCLIA [id number] [place] [id number] [facility] [place] CO2 [Moles/Vol] 26 mmol/L Normal 22-30 [facility] Comment on above: Order Comment: Speci men Type: BLOOD SPECIMENOrdering Facility: [facility] Address: [address] [place] [address] Performed By: #### 2 4323-8, ####[facility] LABORATORYCLIA [id number] [address] Creatinine [Mass/Vol] 0.65 mg/dL Normal 0.58-0.96 [facility] Comment on above: Order Comment: Speci men Type: BLOOD SPECIMENOrdering Facility: [facility] Address: [address] [place] [address] Performed By: #### 2 4323-8, ####[facility] LABORATORYCLIA [id number] [address] Creatinine and Glomerular filtration rate.predicted panel (S/P/Bld) 98 mL/min/1.73m??? Normal >=60 [facility] Comment on above: Order Comment: Speci men Type: BLOOD SPECIMENOrdering Facility: [facility] Address: [address] [place] [address] Result Comment: Lily mated Glomerular Filtration Rate [...] actual GFR. Performed By: #### 2 4323-8, ####[facility]CLIA [id number] [place] [address] [place] Glucose [Mass/Vol] 215 mg/dL High 74-99 [facility] Comment on above: Order Comment: Mady rivera Type: BLOOD SPECIMENOrdering Facility: [facility] Address: [address] [place] [address] Result Comment: The [place] [employer] (ADA) provides guidance for cutoff [...] Standards of Medical Care in Diabetes 2016, [place] [employer]. Diabetes Care. 2016.39(Suppl 1). Performed By: #### 2 4323-8, ####[facility]CLIA [id number] [place] [address] [place] Potassium [Moles/Vol] 4.6 mmol/L Normal 3.7-5.1 [facility] Comment on above: Order Comment: Mady rivera Type: BLOOD SPECIMENOrdering Facility: [facility] Address: [address] [place] [address] Performed By: #### 2 4323-8, ####[facility] LABORATORYCLIA [id number] [place] [address] [place] Protein [Mass/Vol] 5.1 g/dL Low 6.3-8.0 [facility] Comment on above: Order Comment: Mady rivera Type: BLOOD SPECIMENOrdering Facility: [facility] Address: [address] [place], [place] [address] Performed By: #### 2 4323-8, 22791-6 ####[facility] LABORATORYCLIA [id number] [place] [address] [place] Sodium [Moles/Vol] 143 mmol/L Normal 136-144 [facility] Comment on above: Order Comment: Speci men Type: BLOOD SPECIMENOrdering Facility: [facility] Address: [address] [place] [address] Performed By: #### 2 432-8, ####[facility] LABORATORYCLIA [id number] [place] [address] [place] [place] Urea nitrogen [Mass/Vol] 17 mg/dL Normal 7-21 [facility] Comment on above: Order Comment: Speci men Type: BLOOD SPECIMENOrdering Facility: [facility] Address: [address] [place] [address] Performed By: #### 2 432-8, 83220-5 ####[facility] LABORATORYCLIA [id number] [place] [id number] [place] Culture, Blood (WB)on 2024 CUB RIGHT ANKLE Blood cultures x2, from two different sites No growth in 5 days. Normal [facility] Comment on above: Performed By: #### L 300.4310, L501.4020, M200.1000, L100.0100, L500.4050, L503.6005, L300.3900, L501.3620 ####[facility] [address] [place], [place], [address] Magnesium SerPl-mCncon 06-19 Magnesium [Mass/Vol] 1.2 mg/dL Low 1.7-2.3 [facility] Comment on above: Order Comment: Speci men Type: BLOOD SPECIMENOrdering Facility: [facility] Address: [address] [place], [place] [id number] Performed By: #### 2 4323-8, ####[facility] LABORATORYCLIA [id number] [place] [address] [place] NUTRITIONon 06-19-2024 NUTRITION Normal [facility] THERAPY NTon 06-19-2024 THERAPY NT Normal [facility] ALLIED HEALTHon 06-18-2024 ALLIED HEALTH Normal [facility] CASE MANAGEMon 06-18-2024 CASE MANAGEM Normal [facility] CBC panel Auto (Bld)on 06-18 Erythrocyte distribution width (RBC) [Ratio] 17.2 % High 11.5-15.0 [facility] Comment on above: Order Comment: Speci men Type: BLOOD SPECIMENOrdering Facility: [facility] Address: [address] [place] [address] Performed By: #### 5 8410-2 ####[facility] LABORATORYCLIA [id number] [address] [place] Hematocrit (Bld) [Volume fraction] 39.1 % Normal 36.0-46.0 [facility] Comment on above: Order Comment: Speci men Type: BLOOD SPECIMENOrdering Facility: [facility] Address: [address] [place] [address] Performed By: #### 5 8410-2 ####[facility] LABORATORYCLIA [id number] [place] [address] [place] Hemoglobin (Bld) [Mass/Vol] 12.3 g/dL Normal 11.5-15.5 [facility] Comment on above: Order Comment: Speci men Type: BLOOD SPECIMENOrdering Facility: [facility] Address: [address] [place] [address] Performed By: #### 5 8410-2 ####[facility] LABORATORYCLIA [id number] [place] [address] [place] MCH (RBC) [Entitic mass] 30.4 pg Normal 26.0-34.0 [facility] Comment on above: Order Comment: Speci men Type: BLOOD SPECIMENOrdering Facility: [facility] Address: [address] [place] [address] Performed By: #### 5 8410-2 ####[facility] LABORATORYCLIA [id number] [address] [place] MCHC (RBC) [Mass/Vol] 31.5 g/dL Normal 30.5-36.0 [facility] Comment on above: Order Comment: Speci men Type: BLOOD SPECIMENOrdering Facility: [facility] Address: [address] [place] [address] Performed By: #### 5 8410-2 ####[facility] LABORATORYCLIA [id number] [address] MCV (RBC) [Entitic vol] 96.5 fL Normal 80.0-100.0 [facility] Comment on above: Order Comment: Speci men Type: BLOOD SPECIMENOrdering Facility: [facility] Address: [address] [place] [address] Performed By: #### 5 8410-2 ####[facility] LABORATORYCLIA [id number] [address] Nucleated RBC (Bld) [#/Vol] 0.03 10*3/uL High <0.01 [facility] Comment on above: Order Comment: Speci men Type: BLOOD SPECIMENOrdering Facility: [facility] Address: [address] [place] [address] Performed By: #### 5 8410-2 ####[facility] LABORATORYCLIA [id number] [address] [place] Platelet mean volume (Bld) [Entitic vol] 11.9 fL Normal 9.0-12.7 [facility] Comment on above: Order Comment: Speci men Type: BLOOD SPECIMENOrdering Facility: [facility] Address: [address] [place] [address] Performed By: #### 5 8410-2 ####[facility] LABORATORYCLIA [id number] [address] [place] Platelets (Bld) [#/Vol] 49 10*3/uL Low 150-400 [facility] Comment on above: Order Comment: Speci men Type: BLOOD SPECIMENOrdering Facility: [facility] Address: [address] [place] [address] Result Comment: No c lot detected. Performed By: #### 5 8410-2 ####[facility] LABORATORYCLIA [id number] [address] OF [facility] RBC (Bld) [#/Vol] 4.05 10*6/uL Normal 3.90-5.20 [facility] Comment on above: Order Comment: Speci men Type: BLOOD SPECIMENOrdering Facility: [facility] Address: [address] [place] [address] Performed By: #### 5 8410-2 ####[facility] LABORATORYCLIA [id number] [address] OF [facility] WBC (Bld) [#/Vol] 6.63 10*3/uL Normal 3.70-11.00 [facility] Comment on above: Order Comment: Speci men Type: BLOOD SPECIMENOrdering Facility: [facility] Address: [address] [place] [address] Performed By: #### 5 8410-2 ####[facility] LABORATORYCLIA [id number] [address] OF [facility] CONSULT PROGon 06-18-2024 CONSULT PROG Normal [facility] CT CHEST WO IVCONon 06-18-[address] CHEST WO IVCON Normal [facility] Comprehensive metabolic 2000 panelon 06-18-2024 Albumin [Mass/Vol] 2.0 g/dL Low 3.9-4.9 [facility] Comment on above: Order Comment: Speci men Type: BLOOD SPECIMENOrdering Facility: [facility] Address: [address] [place] [address] Performed By: #### 2 4323-8, 2777-1 ####[facility] LABORATORYCLIA [id number] [address] ALP [Catalytic activity/Vol] 245 U/L High 34-123 [facility] Comment on above: Order Comment: Speci men Type: BLOOD SPECIMENOrdering Facility: [facility] Address: [address] [place] [address] Performed By: #### 2 4323-8, 2776- ####[facility] LABORATORYCLIA [id number] [place] [address] [place] ALT With P-5'-P [Catalytic activity/Vol] 17 U/L Normal 7-38 [facility] Comment on above: Order Comment: Speci men Type: BLOOD SPECIMENOrdering Facility: [facility] Address: [address] [place] [address] Performed By: #### 2 4323-8, 2776-05 ####[facility] LABORATORYCLIA [id number] [address] STATES OF [facility] Anion gap [Moles/Vol] 12 mmol/L Normal 8-15 [facility] Comment on above: Order Comment: Speci men Type: BLOOD SPECIMENOrdering Facility: [facility] Address: [address] [place] [address] Performed By: #### 2 432-8, 2776-05 ####[facility] LABORATORYCLIA [id number] [address] [place] AST With P-5'-P [Catalytic activity/Vol] 65 U/L High 13-35 [facility] Comment on above: Order Comment: Speci men Type: BLOOD SPECIMENOrdering Facility: [facility] Address: [address] [place] [address] Performed By: #### 2 4323-8, 2776-05 ####[facility] LABORATORYCLIA [id number] [place] [address] [place] Bilirubin [Mass/Vol] 4.9 mg/dL High 0.2-1.3 [facility] Comment on above: Order Comment: Speci men Type: BLOOD SPECIMENOrdering Facility: [facility] Address: [facility] [place] [address] Performed By: #### 2 4323-8, 2776-05 ####[facility] LABORATORYCLIA [id number] [place] [address] [place] Calcium [Mass/Vol] 6.9 mg/dL Low 8.5-10.2 [facility] Comment on above: Order Comment: Speci men Type: BLOOD SPECIMENOrdering Facility: [facility] Address: [address] [place] [address] Performed By: #### 2 4323-8, 277- ####[facility]ORATORYCLIA [id number] [place] [address] [place] Chloride [Moles/Vol] 105 mmol/L Normal 98-107 [facility] Comment on above: Order Comment: Speci men Type: BLOOD SPECIMENOrdering Facility: [facility] Address: [address] [place] [address] Performed By: #### 2 4323-8, 2776-05 ####[facility]ORATORYCLIA [id number] [address] [place] CO2 [Moles/Vol] 25 mmol/L Normal 22-30 [facility] Comment on above: Order Comment: Speci men Type: BLOOD SPECIMENOrdering Facility: [facility] Address: [address] [place] [address] Performed By: #### 2 4323-8, 2776-05 ####[facility]ORATORYCLIA [id number] [address] [place] Creatinine [Mass/Vol] 0.85 mg/dL Normal 0.58-0.96 [facility] Comment on above: Order Comment: Speci men Type: BLOOD SPECIMENOrdering Facility: [facility] Address: [address] [place] [address] Performed By: #### 2 4323-8, 2776-05 ####[facility] LABORATORYCLIA [id number] [address] [place] Creatinine and Glomerular filtration rate.predicted panel (S/P/Bld) 76 mL/min/1.73m??? Normal >=60 [facility] Comment on above: Order Comment: Speci men Type: BLOOD SPECIMENOrdering Facility: [facility] Address: [address] [place], [place] [id number] Result Comment: Lily mated Glomerular Filtration Rate [...] GFR. Performed By: #### 2 4323-8, 277- ####[facility]ORATORYCLIA [id number] [place] [address] [place] Glucose [Mass/Vol] 111 mg/dL High 74-99 [facility] Comment on above: Order Comment: Mady rivera Type: BLOOD SPECIMENOrdering Facility: [facility] Address: [address] [place] [address] Result Comment: The [place] [employer] (ADA) provides guidance for cutoff [...] Standards of Medical Care in Diabetes 2016, [place] [employer]. Diabetes Care. 2016.39(Suppl 1). Performed By: #### 2 4323-8, 27711-11 ####[facility]ORATORYCLIA [id number] [place] [id number] [place] Potassium [Moles/Vol] 3.5 mmol/L Low 3.7-5.1 [facility] Comment on above: Order Comment: Mady rivera Type: BLOOD SPECIMENOrdering Facility: [facility] Address: [address] [place] [address] Performed By: #### 2 4323-8, 2777- ####[facility]ORATORYCLIA [id number] [address] Protein [Mass/Vol] 4.3 g/dL Low 6.3-8.0 [facility] Comment on above: Order Comment: Mady rivera Type: BLOOD SPECIMENOrdering Facility: [facility] Address: [address] [place] [address] Performed By: #### 2 4323-8, 2777-1 ####[facility] LABORATORYCLIA [id number] [address] STATES [facility] Sodium [Moles/Vol] 142 mmol/L Normal 136-144 [facility] Comment on above: Order Comment: Mady rivera Type: BLOOD SPECIMENOrdering Facility: [facility] Address: [address] [place] [address] Performed By: #### 2 4323-8, 2777-1 ####[facility]ORATORYCLIA [id number] [address] STATES [facility] Urea nitrogen [Mass/Vol] 21 mg/dL Normal 7-21 [facility] Comment on above: Order Comment: Mady rivera Type: BLOOD SPECIMENOrdering Facility: [facility] Address: [address] [place] [address] Performed By: #### 2 4323-8, 2777-1 ####[facility]ORATORYCLIA [id number] [address] [place] PT panel Coag (PPP)on 2024 INR Coag (PPP) [Relative time] 1.3 {INR} Normal 0.9-1.3 [facility] Comment on above: Order Comment: Mady rivera Type: BLOOD SPECIMENOrdering Facility: [facility] Address: [address] [place] [address] Result Comment: Chlesea min K Antagonist (VKA) Therapeutic Range: INR 2 to 3 (Target INR of 2.5)Note: For patients treated with VKA drugs, such as warfarin, the [place] [employer] 2012 Guideline recommends [...] al. Chest 2012, 141:7S-47SNishimura RA, et al. [facility] 2017, 70: 252-289 Performed By: #### 3 4528-0 ####[facility] LABORATORYCLIA [id number] [place] [address] [place] PT Coag (PPP) [Time] 14.0 s High 9.7-13.0 [facility] Comment on above: Order Comment: Mady rivera Type: BLOOD SPECIMENOrdering Facility: [facility] Address: [address] [place] [address] Performed By: #### 3 4528-0 ####[facility] LABORATORYCLIA [id number] [place] [address] [place] Phosphate SerPl-mCncon 06-18 Phosphate [Mass/Vol] 1.3 mg/dL Low 2.7-4.8 [facility] Comment on above: Order Comment: Mady rivera Type: BLOOD SPECIMENOrdering Facility: [facility] Address: [address] [place] [address] Performed By: #### 2 4323-8, 2777-1 ####[facility]ORATORYCLIA [id number] [place] [address] [place] THERAPY NTon 06-18-2024 THERAPY NT Normal [facility] CASE MANAGEMon 06-17-2024 CASE MANAGEM Normal [facility] CASE MANAGEM Normal [facility] CBC panel Auto (Bld)on 06-17 Erythrocyte distribution width (RBC) [Ratio] 17.7 % High 11.5-15.0 [facility] Comment on above: Order Comment: Mady rivera Type: BLOOD SPECIMENOrdering Facility: [facility] Address: [address] [place] [address] Performed By: #### 5 8410-2 ####[facility] LABORATORYCLIA [id number] [address] Hematocrit (Bld) [Volume fraction] 39.1 % Normal 36.0-46.0 [facility] Comment on above: Order Comment: Speci men Type: BLOOD SPECIMENOrdering Facility: [facility] Address: [address] [place] [address] Performed By: #### 5 8410-2 ####[facility] LABORATORYCLIA [id number] [address] OF [facility] Hemoglobin (Bld) [Mass/Vol] 13.1 g/dL Normal 11.5-15.5 [facility] Comment on above: Order Comment: Speci men Type: BLOOD SPECIMENOrdering Facility: [facility] Address: [address] [place] [address] Performed By: #### 5 8410-2 ####[facility] LABORATORYCLIA [id number] [address] OF [facility] MCH (RBC) [Entitic mass] 31.3 pg Normal 26.0-34.0 [facility] Comment on above: Order Comment: Speci men Type: BLOOD SPECIMENOrdering Facility: [facility] Address: [address] [place] [address] Performed By: #### 5 8410-2 ####[facility] LABORATORYCLIA [id number] [address] [place] MCHC (RBC) [Mass/Vol] 33.5 g/dL Normal 30.5-36.0 [facility] Comment on above: Order Comment: Speci men Type: BLOOD SPECIMENOrdering Facility: [facility] Address: [address] [place] [address] Performed By: #### 5 8410-2 ####[facility] LABORATORYCLIA [id number] [address] [place] MCV (RBC) [Entitic vol] 93.5 fL Normal 80.0-100.0 [facility] Comment on above: Order Comment: Speci men Type: BLOOD SPECIMENOrdering Facility: [facility] Address: [address] [place] [address] Performed By: #### 5 8410-2 ####[facility]ORATORYCLIA [id number] [address] Nucleated RBC (Bld) [#/Vol] 0.06 10*3/uL High <0.01 [facility] Comment on above: Order Comment: Speci men Type: BLOOD SPECIMENOrdering Facility: [facility] Address: [address] [place] [address] Performed By: #### 5 8410-2 ####[facility]ORATORYCLIA [id number] [address] [place] Platelet mean volume (Bld) [Entitic vol] 12.0 fL Normal 9.0-12.7 [facility] Comment on above: Order Comment: Speci men Type: BLOOD SPECIMENOrdering Facility: [facility] Address: [address] [place] [address] Performed By: #### 5 8410-2 ####[facility] LABORATORYCLIA [id number] [address] Platelets (Bld) [#/Vol] 49 10*3/uL Low 150-400 [facility] Comment on above: Order Comment: Speci men Type: BLOOD SPECIMENOrdering Facility: [facility] Address: [address] [place] [address] Result Comment: No c lot detected. Performed By: #### 5 8410-2 ####[facility]ORATORYCLIA [id number] [address] RBC (Bld) [#/Vol] 4.18 10*6/uL Normal 3.90-5.20 [facility] Comment on above: Order Comment: Speci men Type: BLOOD SPECIMENOrdering Facility: [facility] Address: [address] [place] [address] Performed By: #### 5 8410-2 ####[facility] LABORATORYCLIA [id number] [place], [place] [address] [place] [address] [place] OF [facility] WBC (Bld) [#/Vol] 9.48 10*3/uL Normal 3.70-11.00 [facility] Comment on above: Order Comment: Speci men Type: BLOOD SPECIMENOrdering Facility: [facility] Address: [address] [place] [address] Performed By: #### 5 8410-2 ####[facility] LABORATORYCLIA [id number] [place] [id number] [facility] [place] CONSULT PROGon 06-17-2024 CONSULT PROG Normal [facility] Comprehensive metabolic 2000 panelon 06-17-2024 Albumin [Mass/Vol] 2.5 g/dL Low 3.9-4.9 [facility] Comment on above: Order Comment: Speci men Type: BLOOD SPECIMENOrdering Facility: [facility] Address: [address] [place] [address] Performed By: #### 3 016-3, DBIL, 4542-7, 2777-1, 86120-0 ####[facility]ORATORYCLIA [id number] [address] STATES OF [facility] ALP [Catalytic activity/Vol] 234 U/L High 34-123 [facility] Comment on above: Order Comment: Speci men Type: BLOOD SPECIMENOrdering Facility: [facility] Address: [address] [place] [address] Performed By: #### 3 016-3, DBIL, 4542-7, 2777-1, 22345-4 ####[facility]ORATORYCLIA [id number] [place] [id number] [place] ALT With P-5'-P [Catalytic activity/Vol] 18 U/L Normal 7-38 [facility] Comment on above: Order Comment: Speci men Type: BLOOD SPECIMENOrdering Facility: [facility] Address: [address] [place] [address] Performed By: #### 3 016-3, DBIL, 4542-7, 2777-1, ####[facility]ORATORYCLIA [id number] [place] [address] [place] Anion gap [Moles/Vol] 16 mmol/L High 8-15 [facility] Comment on above: Order Comment: Speci men Type: BLOOD SPECIMENOrdering Facility: [facility] Address: [address] [place] [address] Performed By: #### 3 016-3, DBIL, 7, 2776-05, ####[facility] LABORATORYCLIA [id number] [place] [address] [place] AST With P-5'-P [Catalytic activity/Vol] 59 U/L High 13-35 [facility] Comment on above: Order Comment: Speci men Type: BLOOD SPECIMENOrdering Facility: [facility] Address: [address] [place] [address] Performed By: #### 3 016-3, DBIL, 7, 2776-05, ####[facility] LABORATORYCLIA [id number] [place] [address] [place] Bilirubin [Mass/Vol] 5.5 mg/dL High 0.2-1.3 [facility] Comment on above: Order Comment: Speci men Type: BLOOD SPECIMENOrdering Facility: [facility] Address: [address] [place] [address] Performed By: #### 3 016-3, DBIL, 7, 2776-05, ####[facility] LABORATORYCLIA [id number] [place] [address] [place] Calcium [Mass/Vol] 8.2 mg/dL Low 8.5-10.2 [facility] Comment on above: Order Comment: Speci men Type: BLOOD SPECIMENOrdering Facility: [facility] Address: [address] [place] [address] Performed By: #### 3 016-3, DBIL, 4541-7, 2776-05, ####[facility]ORATORYCLIA [id number] [place] [id number] [place] Chloride [Moles/Vol] 96 mmol/L Low 98-107 [facility] Comment on above: Order Comment: Speci men Type: BLOOD SPECIMENOrdering Facility: [facility] Address: [address] [place] [address] Performed By: #### 3 016-3, DBIL, 4542-7, 2777-1, 72813-1 ####[facility] LABORATORYCLIA [id number] [place] [id number] [place] CO2 [Moles/Vol] 22 mmol/L Normal 22-30 [facility] Comment on above: Order Comment: Speci men Type: BLOOD SPECIMENOrdering Facility: [facility] Address: [address] [place] [address] Performed By: #### 3 016-3, DBIL, 4542-7, 2777-1, 64432-8 ####[facility]ITALIA [id number] [address] [place] Creatinine [Mass/Vol] 1.07 mg/dL High 0.58-0.96 [facility] Comment on above: Order Comment: Speci men Type: BLOOD SPECIMENOrdering Facility: [facility] Address: [address] [place] [address] Performed By: #### 3 016-3, DBIL, 4542-7, 2777-1, 99473-7 ####[facility] LABORATORYCLIA [id number] [place] [id number] [facility] Creatinine and Glomerular filtration rate.predicted panel (S/P/Bld) 58 mL/min/1.73m??? Low >=60 [facility] Comment on above: Order Comment: Speci men Type: BLOOD SPECIMENOrdering Facility: [facility] Address: [address] [place] [address] Result Comment: Lily mated Glomerular Filtration Rate [...] By: #### 3 016-3, DBIL, 4542-7, 2777-1, 82101-1 ####[facility] LABORATORYCLIA [id number] [place] [address] [place] Glucose [Mass/Vol] 145 mg/dL High 74-99 [facility] Comment on above: Order Comment: Mady rivera Type: BLOOD SPECIMENOrdering Facility: [facility] Address: [address] [place] [address] Result Comment: The [place] [employer] (ADA) provides guidance for cutoff [...] Standards of Medical Care in Diabetes 2016, [place] [employer]. Diabetes Care. 2016.39(Suppl 1). Performed By: #### 3 016-3, DBIL, 4542-7, 7-1, 82800-2 ####[facility] LABORATORYCLIA [id number] [place] [id number] [place] Potassium [Moles/Vol] 4.1 mmol/L Normal 3.7-5.1 [facility] Comment on above: Order Comment: Mady rivera Type: BLOOD SPECIMENOrdering Facility: [facility] Address: [address] [place] [address] Performed By: #### 3 016-3, DBIL, 4542-7, 2777-1, 52005-5 ####[facility] LABORATORYCLIA [id number] [place] [address] [place] Protein [Mass/Vol] 5.5 g/dL Low 6.3-8.0 [facility] Comment on above: Order Comment: Speci men Type: BLOOD SPECIMENOrdering Facility: [facility] Address: [address] [place] [address] Performed By: #### 3 016-3, DBIL, 4542-7, 2777-1, 00154-9 ####[facility] LABORATORYCLIA [id number] [place] [address] [place] Sodium [Moles/Vol] 134 mmol/L Low 136-144 [facility] Comment on above: Order Comment: Speci men Type: BLOOD SPECIMENOrdering Facility: [facility] Address: [address] [place] [address] Performed By: #### 3 016-3, DBIL, 4542-7, 7-1, 28589-8 ####[facility] LABORATORYCLIA [id number] [address] [place] Urea nitrogen [Mass/Vol] 28 mg/dL High 7-21 [facility] Comment on above: Order Comment: Speci men Type: BLOOD SPECIMENOrdering Facility: [facility] Address: [address] [place] [address] Performed By: #### 3 016-3, DBIL, 4542-7, 2777-1, 14854-8 ####[facility] LABORATORYCLIA [id number] [address] [place] DIRECT BILIRUBIN BLOODon Bilirubin.conjugated [Mass/Vol] 4.4 mg/dL High <0.3 [facility] Comment on above: Order Comment: Speci men Type: BLOOD SPECIMENOrdering Facility: [facility] Address: [address] [place] [address] Performed By: #### 3 016-3, DBIL, 4542-7, 2777-1, 22822-3 ####[facility] LABORATORYCLIA [id number] [place] [address] [place] Haptoglob SerPl-mCncon 06-17 Haptoglobin [Mass/Vol] 61 mg/dL Normal 31-238 [facility] Comment on above: Order Comment: Mady rivera Type: BLOOD SPECIMENOrdering Facility: [facility] Address: [address] [place] [address] Performed By: #### 3 016-3, DBIL, 4542-7, 2777-1, 48381-0 ####[facility] LABORATORYCLIA [id number] [address] OF [facility] PT panel Coag (PPP)on 2024 INR Coag (PPP) [Relative time] 1.3 {INR} Normal 0.9-1.3 [facility] Comment on above: Order Comment: Mady rivera Type: BLOOD SPECIMENOrdering Facility: [facility] Address: [address] [place] [address] Result Comment: Chelsea min K Antagonist (VKA) Therapeutic Range: INR 2 to 3 (Target INR of 2.5)Note: For patients treated with VKA drugs, such as warfarin, the [place] [employer] 2012 Guideline recommends [...] al. Chest 2012, 141:7S-47SHector RA, et al. [facility] 2017, 70: 252-289 Performed By: #### 3 4528-0 ####[facility] LABORATORYCLIA [id number] [address] [place] PT Coag (PPP) [Time] 14.4 s High 9.7-13.0 [facility] Comment on above: Order Comment: Mady rivera Type: BLOOD SPECIMENOrdering Facility: [facility] Address: [address] [place] [address] Performed By: #### 3 4528-0 ####[facility] LABORATORYCLIA [id number] [address] OF [facility] Phosphate SerPl-mCncon 06-17 Phosphate [Mass/Vol] 2.6 mg/dL Low 2.7-4.8 [facility] Comment on above: Order Comment: Speci men Type: BLOOD SPECIMENOrdering Facility: [facility] Address: [address] [place] [address] Performed By: #### 3 016-3, DBIL, 4542-7, 2777-1, 44871-8 ####[facility] LABORATORYCLIA [id number] [address] [place] TSH SerPl-aCncon 06-17-2024 TSH Qn 1.290 m[IU]/L Normal 0.270-4.200 [facility] Comment on above: Order Comment: Speci men Type: BLOOD SPECIMENOrdering Facility: [facility] Address: [address] [place] [address] Performed By: #### 3 016-3, DBIL, 4542-7, 2777-1, 24709-7 ####[facility]LECLIA [id number] [address] [place] XR ABDOMEN 1V SUPINEon 06-17 XR ABDOMEN 1V SUPINE Normal [facility] AFP SerPl-mCncon 06-16-2024 AFP [Mass/Vol] 3.88 ng/mL Normal <9.00 [facility] Comment on above: Order Comment: Speci men Type: BLOOD SPECIMENOrdering Facility: [facility] Address: [address] [place] [address] Result Comment: The Alpha-Fetoprotein test was performed using the AgentPiggyel DxI immunoenzymatic assay. Results obtained with different assay methods or kits cannot be used interchangeably. Performed By: #### 1 834-1 ####[facility] LABCLIA [id number] [place] [address] [place] Bacteria Spec Resp Culton Bacteria identified Respiratory culture Nom (Unsp spec) CULTURE, RESPIRATORY: Rare Normal respiratory lynn present GRAM STAIN: No organisms seen Moderate Polymorphonuclear leukocytes Normal [facility] Comment on above: Performed By: #### 3 2355-0 ####[facility]ORATORYCLIA [id number] [address] [place] CASE MGT INIT ASSESon 2024 CASE MGT INIT ASSES Normal [facility] CBC panel Auto (Bld)on 06-16 Erythrocyte distribution width (RBC) [Ratio] 17.2 % High 11.5-15.0 [facility] Comment on above: Order Comment: Speci men Type: BLOOD SPECIMENOrdering Facility: [facility] Address: [address] [place] [address] Performed By: #### 5 8410-2 ####[facility]ORATORYCLIA [id number] [address] Hematocrit (Bld) [Volume fraction] 33.9 % Low 36.0-46.0 [facility] Comment on above: Order Comment: Speci men Type: BLOOD SPECIMENOrdering Facility: [facility] Address: [address] [place] [address] Performed By: #### 5 8410-2 ####[facility]ORATORYCLIA [id number] [address] [place] Hemoglobin (Bld) [Mass/Vol] 11.7 g/dL Normal 11.5-15.5 [facility] Comment on above: Order Comment: Speci men Type: BLOOD SPECIMENOrdering Facility: [facility] Address: [address] [place] [address] Performed By: #### 5 8410-2 ####[facility]ORATORYCLIA [id number] [address] [place] MCH (RBC) [Entitic mass] 31.1 pg Normal 26.0-34.0 [facility] Comment on above: Order Comment: Speci men Type: BLOOD SPECIMENOrdering Facility: [facility] Address: [address] [place] [address] Performed By: #### 5 8410-2 ####[facility] LABORATORYCLIA [id number] [address] MCHC (RBC) [Mass/Vol] 34.5 g/dL Normal 30.5-36.0 [facility] Comment on above: Order Comment: Speci men Type: BLOOD SPECIMENOrdering Facility: [facility] Address: [address] [place] [address] Performed By: #### 5 8410-2 ####[facility]ORATORYCLIA [id number] [address] MCV (RBC) [Entitic vol] 90.2 fL Normal 80.0-100.0 [facility] Comment on above: Order Comment: Speci men Type: BLOOD SPECIMENOrdering Facility: [facility] Address: [address] [place] [address] Performed By: #### 5 8410-2 ####[facility]ORATORYCLIA [id number] [address] Nucleated RBC (Bld) [#/Vol] 0.04 10*3/uL High <0.01 [facility] Comment on above: Order Comment: Speci men Type: BLOOD SPECIMENOrdering Facility: [facility] Address: [address] [place] [address] Performed By: #### 5 8410-2 ####[facility]ORATORYCLIA [id number] [address] Platelet mean volume (Bld) [Entitic vol] 10.6 fL Normal 9.0-12.7 [facility] Comment on above: Order Comment: Speci men Type: BLOOD SPECIMENOrdering Facility: [facility] Address: [address] [place] [address] Performed By: #### 5 8410-2 ####[facility]ORATORYCLIA [id number] [address] Platelets (Bld) [#/Vol] 55 10*3/uL Low 150-400 [facility] Comment on above: Order Comment: Speci men Type: BLOOD SPECIMENOrdering Facility: [facility] Address: [address] [place] [address] Result Comment: No c lot detected. Performed By: #### 5 8410-2 ####[facility]ORATORYCLIA [id number] [place] [address] [place] RBC (Bld) [#/Vol] 3.76 10*6/uL Low 3.90-5.20 [facility] Comment on above: Order Comment: Speci men Type: BLOOD SPECIMENOrdering Facility: [facility] Address: [address] [place] [address] Performed By: #### 5 8410-2 ####[facility]ORATORYCLIA [id number] [address] WBC (Bld) [#/Vol] 9.34 10*3/uL Normal 3.70-11.00 [facility] Comment on above: Order Comment: Speci men Type: BLOOD SPECIMENOrdering Facility: [facility] Address: [address] [place] [address] Performed By: #### 5 8410-2 ####[facility] LABORATORYCLIA [id number] [address] OF [facility] CONSULT PROGon 06-16-2024 CONSULT PROG Normal [facility] CONSULT PROG Normal [facility] Comprehensive metabolic 2000 panelon 06-16-2024 Albumin [Mass/Vol] 2.4 g/dL Low 3.9-4.9 [facility] Comment on above: Order Comment: Speci men Type: BLOOD SPECIMENOrdering Facility: [facility] Address: [address] [place] [address] Performed By: #### 2 4323-8 ####[facility]ORATORYCLIA [id number] [address] [place] ALP [Catalytic activity/Vol] 200 U/L High 34-123 [facility] Comment on above: Order Comment: Speci men Type: BLOOD SPECIMENOrdering Facility: [facility] Address: [address] [place] [address] Performed By: #### 2 4323-8 ####[facility]ORATORYCLIA [id number] [address] [place] ALT With P-5'-P [Catalytic activity/Vol] 15 U/L Normal 7-38 [facility] Comment on above: Order Comment: Speci men Type: BLOOD SPECIMENOrdering Facility: [facility] Address: [address] [place] [address] Performed By: #### 2 4323-8 ####[facility]ORATORYCLIA [id number] [address] Anion gap [Moles/Vol] 11 mmol/L Normal 8-15 [facility] Comment on above: Order Comment: Speci men Type: BLOOD SPECIMENOrdering Facility: [facility] Address: [address] [place] [address] Performed By: #### 2 4323-8 ####[facility]ORATORYCLIA [id number] [address] AST With P-5'-P [Catalytic activity/Vol] 48 U/L High 13-35 [facility] Comment on above: Order Comment: Speci men Type: BLOOD SPECIMENOrdering Facility: [facility] Address: [address] [place] [address] Performed By: #### 2 4323-8 ####[facility]ORATORYCLIA [id number] [address] [place] Bilirubin [Mass/Vol] 5.6 mg/dL High 0.2-1.3 [facility] Comment on above: Order Comment: Speci men Type: BLOOD SPECIMENOrdering Facility: [facility] Address: [address] [place] [address] Performed By: #### 2 4323-8 ####[facility] LABORATORYCLIA [id number] [place] [address] [place] Calcium [Mass/Vol] 8.3 mg/dL Low 8.5-10.2 [facility] Comment on above: Order Comment: Speci men Type: BLOOD SPECIMENOrdering Facility: [facility] Address: [address] [place] [address] Performed By: #### 2 4323-8 ####[facility]ORATORYCLIA [id number] [place] [address] [place] Chloride [Moles/Vol] 99 mmol/L Normal 98-107 [facility] Comment on above: Order Comment: Speci men Type: BLOOD SPECIMENOrdering Facility: [facility] Address: [address] [place] [address] Performed By: #### 2 4323-8 ####[facility]ORATORYCLIA [id number] [address] [place] CO2 [Moles/Vol] 28 mmol/L Normal 22-30 [facility] Comment on above: Order Comment: Speci men Type: BLOOD SPECIMENOrdering Facility: [facility] Address: [address] [place] [address] Performed By: #### 2 4323-8 ####[facility]ORATORYCLIA [id number] [address] [place] Creatinine [Mass/Vol] 1.27 mg/dL High 0.58-0.96 [facility] Comment on above: Order Comment: Speci men Type: BLOOD SPECIMENOrdering Facility: [facility] Address: [address] [place] [address] Performed By: #### 2 4323-8 ####[facility]ORATORYCLIA [id number] [address] Creatinine and Glomerular filtration rate.predicted panel (S/P/Bld) 47 mL/min/1.73m??? Low >=60 [facility] Comment on above: Order Comment: Speci men Type: BLOOD SPECIMENOrdering Facility: [facility] Address: [address] [place] [address] Result Comment: Lily mated Glomerular Filtration Rate [...] actual GFR. Performed By: #### 2 4323-8 ####[facility] LABORATORYCLIA [id number] [place] [address] [place] Glucose [Mass/Vol] 122 mg/dL High 74-99 [facility] Comment on above: Order Comment: aMdy rivera Type: BLOOD SPECIMENOrdering Facility: [facility] Address: [address] [place], [place] [id number] Result Comment: The [place] [employer] (ADA) provides guidance for cutoff [...] Standards of Medical Care in Diabetes 2016, [place] [employer]. Diabetes Care. 2016.39(Suppl 1). Performed By: #### 2 4323-8 ####[facility]ORATORYCLIA [id number] [place] [address] [place] Protein [Mass/Vol] 4.9 g/dL Low 6.3-8.0 [facility] Comment on above: Order Comment: Mady rivera Type: BLOOD SPECIMENOrdering Facility: [facility] Address: [address] [place] [address] Performed By: #### 2 4323-8 ####[facility]ORATORYCLIA [id number] [place] [address] [place] Sodium [Moles/Vol] 138 mmol/L Normal 136-144 [facility] Comment on above: Order Comment: Speci men Type: BLOOD SPECIMENOrdering Facility: [facility] Address: [address] [place] [address] Performed By: #### 2 4323-8 ####[facility]ORATORYCLIA [id number] [address] STATES [facility] Urea nitrogen [Mass/Vol] 32 mg/dL High 7-21 [facility] Comment on above: Order Comment: Speci men Type: BLOOD SPECIMENOrdering Facility: [facility] Address: [address] [place] [address] Performed By: #### 2 4323-8 ####[facility]ORATORYCLIA [id number] [address] OF [facility] Gas + CO Pnl BldVon 06-16-19 25 Potassium [Moles/Vol] 3.6 mmol/L Low 3.7-5.1 [facility] Comment on above: Order Comment: Speci men Type: VENOUS BLOOD SPECIMENOrdering Facility: [facility] Address: [address] [place] [address] Performed By: #### 2 4344-4 ####[facility]ORATORYCLIA [id number] [address] Order Comment: Speci men Type: BLOOD SPECIMENOrdering Facility: [facility] Address: [address] [place] [address] Performed By: #### 2 4323-8 ####[facility]ORATORYCLIA [id number] [address] Gas and Carbon monoxide pane l (BldV)on 06-16-2024 Base excess Calc (BldV) [Moles/Vol] 7 mmol/L High 0-2 [facility] Comment on above: Order Comment: Speci men Type: VENOUS BLOOD SPECIMENOrdering Facility: [facility] Address: [address] [place] [address] Performed By: #### 2 4344-4 ####[facility]ORATORYCLIA [id number] [address] Body temperature 98.24 [degF] Normal [facility] Comment on above: Order Comment: Speci men Type: VENOUS BLOOD SPECIMENOrdering Facility: [facility] Address: [address] [place] [address] Performed By: #### 2 4344-4 ####[facility]ORATORYCLIA [id number] [address] [place] Calcium.ionized (BldV) [Mass/Vol] 1.09 mmol/L Normal 1.08-1.30 [facility] Comment on above: Order Comment: Speci men Type: VENOUS BLOOD SPECIMENOrdering Facility: [facility] Address: [address] [place] [address] Performed By: #### 2 4344-4 ####[facility]ORATORYCLIA [id number] [address] STATES OF [facility] Calcium.ionized adjusted to pH 7.4 (BldA) [Moles/Vol] 1.13 mmol/L Normal 1.08-1.30 [facility] Comment on above: Order Comment: Speci men Type: VENOUS BLOOD SPECIMENOrdering Facility: [facility] Address: [address] [place] [address] Performed By: #### 2 4344-4 ####[facility]ORATORYCLIA [id number] [address] [place] Carboxyhemoglobin (BldV) [Mass fraction] 1.8 % Normal 0.0-2.0 [facility] Comment on above: Order Comment: Speci men Type: VENOUS BLOOD SPECIMENOrdering Facility: [facility] Address: [address] [place] [address] Result Comment: Carb oxyhemoglobin Reference Range for Smokers: 2.0-8.0% Performed By: #### 2 4344-4 ####[facility]ORATORYCLIA [id number] [address] [place] Chloride [Moles/Vol] 106 mmol/L High 97-105 [facility] Comment on above: Order Comment: Speci men Type: VENOUS BLOOD SPECIMENOrdering Facility: [facility] Address: [address] [place] [address] Performed By: #### 2 4344-4 ####[facility]ORATORYCLIA [id number] [address] [place] CO2 (BldV) [Partial pressure] 42 mm[Hg] Normal 42-55 [facility] Comment on above: Order Comment: Speci men Type: VENOUS BLOOD SPECIMENOrdering Facility: [facility] Address: [address] [place] [address] Performed By: #### 2 4344-4 ####[facility]ORATORYCLIA [id number] [address] [place] CO2 adjusted to patient's actual temperature (BldV) [Partial pressure] 42 mmHg Normal 42-55 [facility] Comment on above: Order Comment: Speci men Type: VENOUS BLOOD SPECIMENOrdering Facility: [facility] Address: [address] [place] [address] Performed By: #### 2 4344-4 ####[facility]ATORYCLIA [id number] [address] [place] FIO2 30 % Normal [facility] Comment on above: Order Comment: Speci men Type: VENOUS BLOOD SPECIMENOrdering Facility: [facility] Address: [address] [place] [address] Performed By: #### 2 4344-4 ####[facility]ATORYCLIA [id number] [place] [address] [place] Glucose [Mass/Vol] 119 mg/dL High 60-105 [facility] Comment on above: Order Comment: Speci men Type: VENOUS BLOOD SPECIMENOrdering Facility: [facility] Address: [address] [place] [address] Performed By: #### 2 4344-4 ####[facility]ATORYCLIA [id number] [place] [address] [place] HCO3 (Bld) [Moles/Vol] 31 mmol/L High 24-28 [facility] Comment on above: Order Comment: Speci men Type: VENOUS BLOOD SPECIMENOrdering Facility: [facility] Address: [address] [place] [address] Performed By: #### 2 4344-4 ####[facility]ATORYCLIA [id number] [address] Hematocrit (Bld) [Volume fraction] 37.3 % Normal 36.0-46.0 [facility] Comment on above: Order Comment: Speci men Type: VENOUS BLOOD SPECIMENOrdering Facility: [facility] Address: [address] [place] [address] Performed By: #### 2 4344-4 ####[facility] LABORATORYCLIA [id number] [address] [place] Hemoglobin (Bld) [Mass/Vol] 12.1 g/dL Normal 11.5-15.5 [facility] Comment on above: Order Comment: Speci men Type: VENOUS BLOOD SPECIMENOrdering Facility: [facility] Address: [address] [place] [address] Performed By: #### 2 4344-4 ####[facility]ATORYCLIA [id number] [address] [place] INHALED TIDAL VOLUME (ML) 420 Normal [facility] Comment on above: Order Comment: Speci men Type: VENOUS BLOOD SPECIMENOrdering Facility: [facility] Address: [address] [place] [address] Performed By: #### 2 4344-4 ####[facility]ATORYCLIA [id number] [address] [place] Lactate [Moles/Vol] 1.1 mmol/L Normal 0.5-2.2 [facility] Comment on above: Order Comment: Speci men Type: VENOUS BLOOD SPECIMENOrdering Facility: [facility] Address: [address] [place] [address] Performed By: #### 2 4344-4 ####[facility]ATORYCLIA [id number] [address] [place] Methemoglobin (Bld) [Mass fraction] 0.8 % Normal 0.0-1.5 [facility] Comment on above: Order Comment: Speci men Type: VENOUS BLOOD SPECIMENOrdering Facility: [facility] Address: [address] [place] [address] Performed By: #### 2 4344-4 ####[facility]ATORYCLIA [id number] [address] O2 THERAPY VENT=Ventilator Normal [facility] Comment on above: Order Comment: Speci men Type: VENOUS BLOOD SPECIMENOrdering Facility: [facility] Address: [address] [place] [address] Performed By: #### 2 4344-4 ####[facility]ATORYCLIA [id number] [address] Oxygen (BldV) [Partial pressure] 68 mm[Hg] High 35-45 [facility] Comment on above: Order Comment: Speci men Type: VENOUS BLOOD SPECIMENOrdering Facility: [facility] Address: [address] [place] [address] Performed By: #### 2 4344-4 ####[facility] LABORATORYCLIA [id number] [address] Oxygen adjusted to patient's actual temperature (BldV) [Partial pressure] 67 mmHg High 35-45 [facility] Comment on above: Order Comment: Speci men Type: VENOUS BLOOD SPECIMENOrdering Facility: [facility] Address: [address] [place] [address] Performed By: #### 2 4344-4 ####[facility]ATORYCLIA [id number] [address] [place] Oxygen saturation in Venous blood 94 % High 60-85 [facility] Comment on above: Order Comment: Speci men Type: VENOUS BLOOD SPECIMENOrdering Facility: [facility] Address: [address] [place] [address] Performed By: #### 2 4344-4 ####[facility]ORATORYCLIA [id number] [address] OF [place] Oxyhemoglobin (BldV) [Mass fraction] 91 % High 60-85 [facility] Comment on above: Order Comment: Speci men Type: VENOUS BLOOD SPECIMENOrdering Facility: [facility] Address: [address] [place] [address] Performed By: #### 2 4344-4 ####[facility]ORATORYCLIA [id number] [address] [place] PEEP/CPAP 5 cmH2O Normal [facility] Comment on above: Order Comment: Speci men Type: VENOUS BLOOD SPECIMENOrdering Facility: [facility] Address: [address] [place] [address] Performed By: #### 2 4344-4 ####[facility]ORATORYCLIA [id number] [address] pH (BldV) 7.47 [pH] High 7.32-7.42 [facility] Comment on above: Order Comment: Speci men Type: VENOUS BLOOD SPECIMENOrdering Facility: [facility] Address: [address] [place] [address] Performed By: #### 2 4344-4 ####[facility]ORATORYCLIA [id number] [address] pH adjusted to patient's actual temperature (BldV) 7.48 High 7.32-7.42 [facility] Comment on above: Order Comment: Speci men Type: VENOUS BLOOD SPECIMENOrdering Facility: [facility] Address: [address] [place] [address] Performed By: #### 2 4344-4 ####[facility]ORATORYCLIA [id number] [address] SET VENTILATOR RESPIRATORY RATE (BPM) 12 BPM Normal [facility] Comment on above: Order Comment: Speci men Type: VENOUS BLOOD SPECIMENOrdering Facility: [facility] Address: [address] [place] [address] Performed By: #### 2 4344-4 ####[facility]ORATORYCLIA [id number] [place] [address] [place] Sodium [Moles/Vol] 136 mmol/L Normal 136-144 [facility] Comment on above: Order Comment: Speci men Type: VENOUS BLOOD SPECIMENOrdering Facility: [facility] Address: [address] [place] [address] Performed By: #### 2 4344-4 ####[facility] LABORATORYCLIA [id number] [place] [address] [place] LIVER FIBROSIS AND ACTIVITYo n 06-16-2024 Kkqln-[id number]-Vgvkmtwijjlav [Mass/Vol] 152 mg/dL Normal 110-270 [facility] Comment on above: Order Comment: Speci men Type: BLOOD SPECIMENOrdering Facility: [facility] Address: [address] [place] [address] Performed By: #### L IVFIB ####[facility] LABCLIA [id number] [place] [address] [place] ALT [Catalytic activity/Vol] 18 U/L Normal 10-35 [facility] Comment on above: Order Comment: Speci men Type: BLOOD SPECIMENOrdering Facility: [facility] Address: [address] [place] [address] Performed By: #### L IVFIB ####[facility] LABCLIA [id number] [place] [address] [place] Apolipoprotein A-I [Mass/Vol] 33 mg/dL Low >124 [facility] Comment on above: Order Comment: Speci men Type: BLOOD SPECIMENOrdering Facility: [facility] Address: [address] [place] [address] Performed By: #### L IVFIB ####[facility] LABCLIA [id number] [place] [address] [place] Bilirubin [Mass/Vol] 5.5 mg/dL High 0.2-1.3 [facility] Comment on above: Order Comment: Speci men Type: BLOOD SPECIMENOrdering Facility: [facility] Address: [address] [place] [address] Performed By: #### L IVFIB ####[facility] LABIA [id number] [address] [place] FIBROSIS INTERPRETATION Severe Fibrosis Normal [facility] Comment on above: Order Comment: Speci men Type: BLOOD SPECIMENOrdering Facility: [facility] Address: [address] [place] [address] Result Comment: Fibr osis Interpretation Table:FibroTest Score: [...] Severe Fibrosis Performed By: #### L IVFIB ####[facility] LABIA [id number] [address] [place] Fibrosis stage Ql F4 Normal [facility] Comment on above: Order Comment: Speci men Type: BLOOD SPECIMENOrdering Facility: [facility] Address: [address] [place] [address] Performed By: #### L IVFIB ####[facility] LABIA [id number] [place] [address] [place] Gamma glutamyl transferase [Catalytic activity/Vol] 225 U/L High 6-42 [facility] Comment on above: Order Comment: Speci men Type: BLOOD SPECIMENOrdering Facility: [facility] Address: [address] [place] [address] Performed By: #### L IVFIB ####[facility] LABCLIA [id number] [place] [address] [place] Haptoglobin [Mass/Vol] 56 mg/dL Normal 31-238 [facility] Comment on above: Order Comment: Speci men Type: BLOOD SPECIMENOrdering Facility: [facility] Address: [address] [place] [address] Performed By: #### L IVFIB ####[facility] LABCLIA [id number] [place] [address] [place] NECROINFLAM ACTIVITY INTERP No Activity Normal [facility] Comment on above: Order Comment: Speci men Type: BLOOD SPECIMENOrdering Facility: [facility] Address: [address] [place] [address] Result Comment: Necr oinflammatory Activity Interpretation Table:ActiTest [...] Severe activity Performed By: #### L IVFIB ####[facility] LABCLIA [id number] [place] [address] [place] Necroinflammatory activity grade Ql A0 Normal [facility] Comment on above: Order Comment: Speci men Type: BLOOD SPECIMENOrdering Facility: [facility] Address: [address] [place] [address] Performed By: #### L IVFIB ####[facility] LABCLIA [id number] [facility] [place] [address] [place] NUTRITIONon 06-16-2024 NUTRITION Normal [facility] PHOSPHATIDYLETHANOL (PETH)on 06-16-2024 EER PETH See Note Normal [facility] Comment on above: Order Comment: Speci men Type: BLOOD SPECIMENOrdering Facility: [facility] Address: [address] [place] [address] Result Comment: Auth orized individuals can access the [facility] Enhanced Reportwith an [facility] Connect account using the following link.Your local lab can assist you in obtaining the patientreport if you don't have a Connect account.[email or web address] Performed By: #### P ETH ####[facility] [id number] [place] [address] PETH 16:0/18.2 (PLPETH) 27 ng/mL Normal [facility] Comment on above: Order Comment: Speci men Type: BLOOD SPECIMENOrdering Facility: [facility] Address: [address] [place] [address] Result Comment: Refe rence ranges are not well established. Performed By: #### P ETH ####[facility]IESCLIA [id number] [place] [address] PETH 16:0/18:1 (POPETH) 63 ng/mL Normal [facility] Comment on above: Order Comment: Speci men Type: BLOOD SPECIMENOrdering Facility: [facility] Address: [address] [place] [address] Result Comment: PEth 16:0/18:1 (POPEth)Less than 10 ng/mL............Not detectedLess than 20 ng/mL............Abstinence or light usbhijhmidizjuhmwx93 - 200 ng/mL................Moderate alcohol consumptionGreater than 200 ng/mL........Heavy alcohol consumption or chronicalcohol use(Reference: Faye Benjamin 2018 J. Forensic Sci) Performed By: #### P ETH ####[facility] LABORATORIESIA [id number] [place] [address] PETH INTERPRETATION See Comment Normal [facility] Comment on above: Order Comment: Speci men Type: BLOOD SPECIMENOrdering Facility: [facility] Address: [facility] [place] [address] Result Comment: Phos phatidylethanol (PEth) is a [...] was developed and its performance characteristicsdetermined by [facility]. It has not been cleared orapproved by the U.S. Food and Drug Administration. This test wasperformed in a CLIA-certified laboratory and is intended forclinical purposes.Performed By: [facility] [place], [place] [address]Nhgleowxtg Director: Bao Carlisle MD, PhDCLIA Number: [id number] Performed By: #### P ETH ####[facility] LABORATORIESIA [id number] [place] [address] Urine Cultureon 06-16-2024 U[facility] Escherichia coli [place] Count 1000-10,000 Proteus mirabilis Proteus mirabilis Escherichia [...] TMP SMX Islt NOAH <=20 S Normal [facility] Comment on above: Performed By: #### L 300.4310, L501.4020, M200.1000, L100.0100, L500.4050, L503.6005, L300.3900, L501.3620 #### [facility] [address] [facility]. [place], [place], [id number] Ammonia Plas-sCncon 06-15-19 25 Ammonia (P) [Moles/Vol] 22 umol/L Normal 11-51 [facility] Comment on above: Order Comment: Speci men Type: BLOOD SPECIMENOrdering Facility: [facility] Address: [address] [place] [address] Performed By: #### 1 6362-6 ####[facility] LABORATORYCLIA [id number] [place] [address] [place] CBC panel Auto (Bld)on 06-15 Erythrocyte distribution width (RBC) [Ratio] 18.0 % High 11.5-15.0 [facility] Comment on above: Order Comment: Speci men Type: BLOOD SPECIMENOrdering Facility: [facility] Address: [address] [place] [address] Performed By: #### 5 8410-2 ####[facility] LABORATORYCLIA [id number] [address] Hematocrit (Bld) [Volume fraction] 35.9 % Low 36.0-46.0 [facility] Comment on above: Order Comment: Speci men Type: BLOOD SPECIMENOrdering Facility: [facility] Address: [address] [place] [address] Performed By: #### 5 8410-2 ####[facility] LABORATORYCLIA [id number] [address] Hemoglobin (Bld) [Mass/Vol] 12.9 g/dL Normal 11.5-15.5 [facility] Comment on above: Order Comment: Speci men Type: BLOOD SPECIMENOrdering Facility: [facility] Address: [address] [place] [address] Performed By: #### 5 8410-2 ####[facility] LABORATORYCLIA [id number] [address] MCH (RBC) [Entitic mass] 31.5 pg Normal 26.0-34.0 [facility] Comment on above: Order Comment: Speci men Type: BLOOD SPECIMENOrdering Facility: [facility] Address: [address] [place] [address] Performed By: #### 5 8410-2 ####[facility] LABORATORYCLIA [id number] [address] MCHC (RBC) [Mass/Vol] 35.9 g/dL Normal 30.5-36.0 [facility] Comment on above: Order Comment: Speci men Type: BLOOD SPECIMENOrdering Facility: [facility] Address: [address] [place] [address] Performed By: #### 5 8410-2 ####[facility] LABORATORYCLIA [id number] [address] MCV (RBC) [Entitic vol] 87.8 fL Normal 80.0-100.0 [facility] Comment on above: Order Comment: Speci men Type: BLOOD SPECIMENOrdering Facility: [facility] Address: [address] [place] [address] Performed By: #### 5 8410-2 ####[facility] LABORATORYCLIA [id number] [address] [place] Nucleated RBC (Bld) [#/Vol] 0.05 10*3/uL High <0.01 [facility] Comment on above: Order Comment: Speci men Type: BLOOD SPECIMENOrdering Facility: [facility] Address: [address] [place] [address] Performed By: #### 5 8410-2 ####[facility] LABORATORYCLIA [id number] [address] [place] Platelet mean volume (Bld) [Entitic vol] 11.6 fL Normal 9.0-12.7 [facility] Comment on above: Order Comment: Speci men Type: BLOOD SPECIMENOrdering Facility: [facility] Address: [address] [place] [address] Performed By: #### 5 8410-2 ####[facility] LABORATORYCLIA [id number] [address] Platelets (Bld) [#/Vol] 79 10*3/uL Low 150-400 [facility] Comment on above: Order Comment: Speci men Type: BLOOD SPECIMENOrdering Facility: [facility] Address: [address] [place] [address] Result Comment: No c lot detected. Performed By: #### 5 8410-2 ####[facility] LABORATORYCLIA [id number] [address] [place] RBC (Bld) [#/Vol] 4.09 10*6/uL Normal 3.90-5.20 [facility] Comment on above: Order Comment: Speci men Type: BLOOD SPECIMENOrdering Facility: [facility] Address: [address] [place] [address] Performed By: #### 5 8410-2 ####[facility] LABORATORYCLIA [id number] [place] [address] [place] WBC (Bld) [#/Vol] 15.33 10*3/uL High 3.70-11.00 [facility] Comment on above: Order Comment: Speci men Type: BLOOD SPECIMENOrdering Facility: [facility] Address: [address] [place] [address] Performed By: #### 5 8410-2 ####[facility]ORATORYCLIA [id number] [address] [place] CONSULT PROGon 06-15-2024 CONSULT PROG Normal [facility] Comprehensive metabolic 2000 panelon 06-15-2024 Albumin [Mass/Vol] 2.3 g/dL Low 3.9-4.9 [facility] Comment on above: Order Comment: Speci men Type: BLOOD SPECIMENOrdering Facility: [facility] Address: [address] [place] [address] Performed By: #### 2 4323-8 ####[facility] LABORATORYCLIA [id number] [address] [place] ALP [Catalytic activity/Vol] 209 U/L High 34-123 [facility] Comment on above: Order Comment: Speci men Type: BLOOD SPECIMENOrdering Facility: [facility] Address: [address] [place] [address] Performed By: #### 2 4323-8 ####[facility] LABORATORYCLIA [id number] [address] [place] ALT With P-5'-P [Catalytic activity/Vol] 13 U/L Normal 7-38 [facility] Comment on above: Order Comment: Speci men Type: BLOOD SPECIMENOrdering Facility: [facility] Address: [address] [place] [address] Performed By: #### 2 4323-8 ####[facility] LABORATORYCLIA [id number] [address] [place] Anion gap [Moles/Vol] 10 mmol/L Normal 8-15 [facility] Comment on above: Order Comment: Speci men Type: BLOOD SPECIMENOrdering Facility: [facility] Address: [facility] [place] [address] Performed By: #### 2 4323-8 ####[facility] LABORATORYCLIA [id number] [place] [address] [place] AST With P-5'-P [Catalytic activity/Vol] 40 U/L High 13-35 [facility] Comment on above: Order Comment: Speci men Type: BLOOD SPECIMENOrdering Facility: [facility] Address: [address] [place] [address] Performed By: #### 2 4323-8 ####[facility] LABORATORYCLIA [id number] [place] [address] [place] Bilirubin [Mass/Vol] 5.8 mg/dL High 0.2-1.3 [facility] Comment on above: Order Comment: Speci men Type: BLOOD SPECIMENOrdering Facility: [facility] Address: [address] [place] [address] Performed By: #### 2 4323-8 ####[facility] LABORATORYCLIA [id number] [place] [address] [place] Calcium [Mass/Vol] 8.7 mg/dL Normal 8.5-10.2 [facility] Comment on above: Order Comment: Speci men Type: BLOOD SPECIMENOrdering Facility: [facility] Address: [address] [place] [address] Performed By: #### 2 4323-8 ####[facility] LABORATORYCLIA [id number] [place] [address] [place] Chloride [Moles/Vol] 100 mmol/L Normal 98-107 [facility] Comment on above: Order Comment: Speci men Type: BLOOD SPECIMENOrdering Facility: [facility] Address: [address] [place] [address] Performed By: #### 2 4323-8 ####[facility] LABORATORYCLIA [id number] [address] STATES OF [facility] CO2 [Moles/Vol] 28 mmol/L Normal 22-30 [facility] Comment on above: Order Comment: Speci men Type: BLOOD SPECIMENOrdering Facility: [facility] Address: [address] [place] [address] Performed By: #### 2 4323-8 ####[facility] LABORATORYCLIA [id number] [address] [place] Creatinine [Mass/Vol] 1.43 mg/dL High 0.58-0.96 [facility] Comment on above: Order Comment: Speci men Type: BLOOD SPECIMENOrdering Facility: [facility] Address: [address] [place] [address] Performed By: #### 2 4323-8 ####[facility] LABORATORYCLIA [id number] [address] Creatinine and Glomerular filtration rate.predicted panel (S/P/Bld) 41 mL/min/1.73m??? Low >=60 [facility] Comment on above: Order Comment: Speci men Type: BLOOD SPECIMENOrdering Facility: [facility] Address: [address] [place] [address] Result Comment: Lily mated Glomerular Filtration Rate [...] actual GFR. Performed By: #### 2 4323-8 ####[facility] LABORATORYCLIA [id number] [address] [place] Glucose [Mass/Vol] 117 mg/dL High 74-99 [facility] Comment on above: Order Comment: Speci men Type: BLOOD SPECIMENOrdering Facility: [facility] Address: [address] [place] [address] Result Comment: The [place] [employer] (ADA) provides guidance for cutoff [...] Standards of Medical Care in Diabetes 2016, [place] [employer]. Diabetes Care. 2016.39(Suppl 1). Performed By: #### 2 4323-8 ####[facility] LABORATORYCLIA [id number] [place] [address] [place] Potassium [Moles/Vol] 3.8 mmol/L Normal 3.7-5.1 [facility] Comment on above: Order Comment: Speci men Type: BLOOD SPECIMENOrdering Facility: [facility] Address: [address] [place] [address] Performed By: #### 2 4323-8 ####[facility] LABORATORYCLIA [id number] [place] [address] [place] Protein [Mass/Vol] 4.8 g/dL Low 6.3-8.0 [facility] Comment on above: Order Comment: Mady rivera Type: BLOOD SPECIMENOrdering Facility: [facility] Address: [address] [place] [address] Performed By: #### 2 4323-8 ####[facility] LABORATORYCLIA [id number] [place] [address] [place] Sodium [Moles/Vol] 138 mmol/L Normal 136-144 [facility] Comment on above: Order Comment: Melissai men Type: BLOOD SPECIMENOrdering Facility: [facility] Address: [address] [place] [address] Performed By: #### 2 4323-8 ####[facility] LABORATORYCLIA [id number] [place] [address] [place] Urea nitrogen [Mass/Vol] 28 mg/dL High 7-21 [facility] Comment on above: Order Comment: Speci men Type: BLOOD SPECIMENOrdering Facility: [facility] Address: [address] [place] [address] Performed By: #### 2 4323-8 ####[facility] LABORATORYCLIA [id number] [address] [place] Gas and Carbon monoxide pane l (BldV)on 06-15-2024 Base excess Calc (BldV) [Moles/Vol] 8 mmol/L High 0-2 [facility] Comment on above: Order Comment: Speci men Type: VENOUS BLOOD SPECIMENOrdering Facility: [facility] Address: [address] [place] [address] Performed By: #### 2 4344-4 ####[facility] LABORATORYCLIA [id number] [address] [place] Body temperature 97.52 [degF] Normal [facility] Comment on above: Order Comment: Speci men Type: VENOUS BLOOD SPECIMENOrdering Facility: [facility] Address: [address] [place] [address] Performed By: #### 2 4344-4 ####[facility] LABORATORYCLIA [id number] [address] [place] Calcium.ionized (BldV) [Mass/Vol] 1.09 mmol/L Normal 1.08-1.30 [facility] Comment on above: Order Comment: Speci men Type: VENOUS BLOOD SPECIMENOrdering Facility: [facility] Address: [address] [place] [address] Performed By: #### 2 4344-4 ####[facility] LABORATORYCLIA [id number] [address] [place] Calcium.ionized adjusted to pH 7.4 (BldA) [Moles/Vol] 1.18 mmol/L Normal 1.08-1.30 [facility] Comment on above: Order Comment: Speci men Type: VENOUS BLOOD SPECIMENOrdering Facility: [facility] Address: [address] [place] [address] Performed By: #### 2 4344-4 ####[facility] LABORATORYCLIA [id number] [address] Carboxyhemoglobin (BldV) [Mass fraction] 2.0 % Normal 0.0-2.0 [facility] Comment on above: Order Comment: Speci men Type: VENOUS BLOOD SPECIMENOrdering Facility: [facility] Address: [address] [place] [address] Result Comment: Carb oxyhemoglobin Reference Range for Smokers: 2.0-8.0% Performed By: #### 2 4344-4 ####[facility] LABORATORYCLIA [id number] [address] Chloride [Moles/Vol] 107 mmol/L High 97-105 [facility] Comment on above: Order Comment: Speci men Type: VENOUS BLOOD SPECIMENOrdering Facility: [facility] Address: [address] [place] [address] Performed By: #### 2 4344-4 ####[facility] LABORATORYCLIA [id number] [address] [place] CO2 (BldV) [Partial pressure] 34 mm[Hg] Low 42-55 [facility] Comment on above: Order Comment: Speci men Type: VENOUS BLOOD SPECIMENOrdering Facility: [facility] Address: [address] [place] [address] Performed By: #### 2 4344-4 ####[facility] LABORATORYCLIA [id number] [address] CO2 adjusted to patient's actual temperature (BldV) [Partial pressure] 33 mmHg Low 42-55 [facility] Comment on above: Order Comment: Speci men Type: VENOUS BLOOD SPECIMENOrdering Facility: [facility] Address: [address] [place] [address] Performed By: #### 2 4344-4 ####[facility] LABORATORYCLIA [id number] [address] [place] FIO2 30 % Normal [facility] Comment on above: Order Comment: Speci men Type: VENOUS BLOOD SPECIMENOrdering Facility: [facility] Address: [address] [place] [address] Performed By: #### 2 4344-4 ####[facility] LABORATORYCLIA [id number] [address] [place] Glucose [Mass/Vol] 122 mg/dL High 60-105 [facility] Comment on above: Order Comment: Speci men Type: VENOUS BLOOD SPECIMENOrdering Facility: [facility] Address: [facility] [place] [address] Performed By: #### 2 4344-4 ####[facility] LABORATORYCLIA [id number] [place] [address] [place] HCO3 (Bld) [Moles/Vol] 31 mmol/L High 24-28 [facility] Comment on above: Order Comment: Speci men Type: VENOUS BLOOD SPECIMENOrdering Facility: [facility] Address: [address] [place] [address] Performed By: #### 2 4344-4 ####[facility] LABORATORYCLIA [id number] [address] [place] Hematocrit (Bld) [Volume fraction] 39.0 % Normal 36.0-46.0 [facility] Comment on above: Order Comment: Speci men Type: VENOUS BLOOD SPECIMENOrdering Facility: [facility] Address: [address] [place] [address] Performed By: #### 2 4344-4 ####[facility] LABORATORYCLIA [id number] [place] [address] [place] Hemoglobin (Bld) [Mass/Vol] 12.7 g/dL Normal 11.5-15.5 [facility] Comment on above: Order Comment: Speci men Type: VENOUS BLOOD SPECIMENOrdering Facility: [facility] Address: [facility] [place] [address] Performed By: #### 2 4344-4 ####[facility] LABORATORYCLIA [id number] [place] [address] [place] INHALED TIDAL VOLUME (ML) 420 Normal [facility] Comment on above: Order Comment: Speci men Type: VENOUS BLOOD SPECIMENOrdering Facility: [facility] Address: [address] [place] [address] Performed By: #### 2 4344-4 ####[facility]ORATORYCLIA [id number] [place] [address] [place] Lactate [Moles/Vol] 1.7 mmol/L Normal 0.5-2.2 [facility] Comment on above: Order Comment: Speci men Type: VENOUS BLOOD SPECIMENOrdering Facility: [facility] Address: [address] [place] [address] Performed By: #### 2 4344-4 ####[facility] LABORATORYCLIA [id number] [address] [place] Methemoglobin (Bld) [Mass fraction] 0.5 % Normal 0.0-1.5 [facility] Comment on above: Order Comment: Speci men Type: VENOUS BLOOD SPECIMENOrdering Facility: [facility] Address: [address] [place] [address] Performed By: #### 2 4344-4 ####[facility] LABORATORYCLIA [id number] [address] O2 THERAPY VENT=Ventilator Normal [facility] Comment on above: Order Comment: Speci men Type: VENOUS BLOOD SPECIMENOrdering Facility: [facility] Address: [address] [place] [address] Performed By: #### 2 4344-4 ####[facility] LABORATORYCLIA [id number] [place] [id number] [facility] [place] Oxygen (BldV) [Partial pressure] 94 mm[Hg] High 35-45 [facility] Comment on above: Order Comment: Speci men Type: VENOUS BLOOD SPECIMENOrdering Facility: [facility] Address: [address] [place] [address] Performed By: #### 2 4344-4 ####[facility] LABORATORYCLIA [id number] [address] [place] Oxygen adjusted to patient's actual temperature (BldV) [Partial pressure] 91 mmHg High 35-45 [facility] Comment on above: Order Comment: Speci men Type: VENOUS BLOOD SPECIMENOrdering Facility: [facility] Address: [address] [place] [address] Performed By: #### 2 4344-4 ####[facility]ORATORYCLIA [id number] [address] [place] Oxygen saturation in Venous blood 98 % High 60-85 [facility] Comment on above: Order Comment: Speci men Type: VENOUS BLOOD SPECIMENOrdering Facility: [facility] Address: [address] [place] [address] Performed By: #### 2 4344-4 ####[facility] LABORATORYCLIA [id number] [address] [place] Oxyhemoglobin (BldV) [Mass fraction] 96 % High 60-85 [facility] Comment on above: Order Comment: Speci men Type: VENOUS BLOOD SPECIMENOrdering Facility: [facility] Address: [address] [place] [address] Performed By: #### 2 4344-4 ####[facility] LABORATORYCLIA [id number] [address] PEEP/CPAP 5 cmH2O Normal [facility] Comment on above: Order Comment: Speci men Type: VENOUS BLOOD SPECIMENOrdering Facility: [facility] Address: [address] [place] [address] Performed By: #### 2 4344-4 ####[facility]ORATORYCLIA [id number] [address] [place] pH (BldV) 7.56 [pH] High 7.32-7.42 [facility] Comment on above: Order Comment: Speci men Type: VENOUS BLOOD SPECIMENOrdering Facility: [facility] Address: [address] [place] [address] Performed By: #### 2 4344-4 ####[facility]ORATORYCLIA [id number] [address] pH adjusted to patient's actual temperature (BldV) 7.57 High 7.32-7.42 [facility] Comment on above: Order Comment: Speci men Type: VENOUS BLOOD SPECIMENOrdering Facility: [facility] Address: [address] [place] [address] Performed By: #### 2 4344-4 ####[facility] LABORATORYCLIA [id number] [address] STATES [place] Potassium [Moles/Vol] 3.6 mmol/L Normal 3.5-5.0 [facility] Comment on above: Order Comment: Speci men Type: VENOUS BLOOD SPECIMENOrdering Facility: [facility] Address: [address] [place] [address] Performed By: #### 2 4344-4 ####[facility] LABORATORYCLIA [id number] [address] SET VENTILATOR RESPIRATORY RATE (BPM) 14 BPM Normal [facility] Comment on above: Order Comment: Speci men Type: VENOUS BLOOD SPECIMENOrdering Facility: [facility] Address: [address] [place] [address] Performed By: #### 2 4344-4 ####[facility] LABORATORYCLIA [id number] [address] STATES [place] Sodium [Moles/Vol] 135 mmol/L Low 136-144 [facility] Comment on above: Order Comment: Speci men Type: VENOUS BLOOD SPECIMENOrdering Facility: [facility] Address: [address] [place] [address] Performed By: #### 2 4344-4 ####[facility] LABORATORYCLIA [id number] [address] OF [place] Hgb Bld-mCncon 06-15-2024 Hemoglobin (Bld) [Mass/Vol] 12.4 g/dL Normal 11.5-15.5 [facility] Comment on above: Order Comment: Speci men Type: BLOOD SPECIMENOrdering Facility: [facility] Address: [address] [place] [address] Performed By: #### 7 18-7 ####[facility] LABORATORYCLIA [id number] [address] PT panel Coag (PPP)on 2024 INR Coag (PPP) [Relative time] 1.4 {INR} High 0.9-1.3 [facility] Comment on above: Order Comment: Mady rivera Type: BLOOD SPECIMENOrdering Facility: [facility] Address: [address] [place] [address] [place] [address] Result Comment: Chelsea min K Antagonist (VKA) Therapeutic Range: INR 2 to 3 (Target INR of 2.5)Note: For patients treated with VKA drugs, such as warfarin, the [employer] [employer] 2012 Guideline recommends [...] al. Chest 2012, 141:7S-47SHector RA, et al. [facility] 2017, 70: 252-289 Performed By: #### 3 4528-0 ####[facility] LABORATORYCLIA [id number] [address] STATES OF [facility] PT Coag (PPP) [Time] 15.0 s High 9.7-13.0 [facility] Comment on above: Order Comment: Mady rivera Type: BLOOD SPECIMENOrdering Facility: [facility] Address: [address] [place] [place] [address] Performed By: #### 3 4528-0 ####[facility] LABORATORYCLIA [id number] [address] OF [place] A1AT SerPl-mCncon 06-14-2024 Alpha 1 antitrypsin [Mass/Vol] 175 mg/dL Normal 90-200 [facility] Comment on above: Order Comment: Mady rivera Type: BLOOD SPECIMENOrdering Facility: [facility] Address: [address] [place] [address] Performed By: #### 1 6933-4, 92001-0, 2063-4, ANADAVIDS, 39238-3, 5-9 ####[facility] LABCLIA [id number] [place] [address] [place] ZACK BY IFA SCREENon 06-14-19 25 Nuclear Ab Ql (S) Negative Normal Negative [facility] Comment on above: Order Comment: Mady rivera Type: BLOOD SPECIMENOrdering Facility: [facility] Address: [address] [place] [address] Result Comment: Anti -nuclear antibody test is used as an aid in diagnosis of systemic autoimmune diseases. Where positive and clinically warranted, follow-up using disease-specific testing is recommended. Low positive titers are not uncommon with advanced age, certain chronic infections, and malignancies among others.Test methodology: Indirect fluorescence immunoassay (IFA) using HEp-2 cells. Performed By: #### 1 6933-4, 57505-0, 4, ANAIFPenny, 97212-6, 9 ####[facility] LABCLIA [id number] [place] [address] [place] Ammonia Plas-sCncon 06-14-19 25 Ammonia (P) [Moles/Vol] 38 umol/L Normal 11-51 [facility] Comment on above: Order Comment: Mady rivera Type: BLOOD SPECIMENOrdering Facility: [facility] Address: [address] [place] [address] Performed By: #### 1 6362-6 ####[facility] LABORATORYCLIA [id number] [place] [address] [place] Bacteria Bld Culton 06-14-19 25 Bacteria identified Cx Nom (Bld) CULTURE, BLOOD: No growth 5 days Normal [facility] Comment on above: Performed By: #### 6 00-7 ####[facility] LABORATORYCLIA [id number] [place], [place] [address] [place] [address] OF [place] Bacteria identified Cx Nom (Bld) CULTURE, BLOOD: No growth 5 days Normal [facility] Comment on above: Performed By: #### 6 00-7 ####[facility]ORATORYCLIA [id number] [address] [place] Bacteria Ur Culton 5 Bacteria identified Cx Nom (U) ORGANISM ID: 1 <10,000 CFU/ml Lactose fermenting gram negative rods Insignificant colony count. No further workup. ORGANISM ID: 2 <10,000 CFU/ml Proteus species Insignificant colony count. No further workup. Normal [facility] Comment on above: Performed By: #### 2 4356-8, 630-4 ####[facility]ORATORYCLIA [id number] [address] OF [place] Bilirub Conj SerPl-mCncon Bilirubin.conjugated [Mass/Vol] 3.1 mg/dL High <0.3 [facility] Comment on above: Order Comment: Speci men Type: BLOOD SPECIMENOrdering Facility: [facility] Address: [address] [place] [address] Result Comment: Resu lts may be falsely decreased due to interference from hemolysis. Suggest reorder as clinically indicated. Performed By: #### 2 4323-8, 2532-0, 3040-3, 67144-3, 2157-6, 53275-2 ####[facility] LABORATORYCLIA [id number] [address] CBC panel Auto (Bld)on 06-14 Erythrocyte distribution width (RBC) [Ratio] 17.1 % High 11.5-15.0 [facility] Comment on above: Order Comment: Speci men Type: BLOOD SPECIMENOrdering Facility: [facility] Address: [address] [place] [address] Performed By: #### 5 8410-2 ####[facility] LABORATORYCLIA [id number] [address] OF [facility] Hematocrit (Bld) [Volume fraction] 43.3 % Normal 36.0-46.0 [facility] Comment on above: Order Comment: Speci men Type: BLOOD SPECIMENOrdering Facility: [facility] Address: [address] [place] [address] Performed By: #### 5 8410-2 ####[facility] LABORATORYCLIA [id number] [address] STATES [place] Hemoglobin (Bld) [Mass/Vol] 14.5 g/dL Normal 11.5-15.5 [facility] Comment on above: Order Comment: Speci men Type: BLOOD SPECIMENOrdering Facility: [facility] Address: [address] [place] [address] Performed By: #### 5 8410-2 ####[facility] LABORATORYCLIA [id number] [address] STATES [place] MCH (RBC) [Entitic mass] 30.3 pg Normal 26.0-34.0 [facility] Comment on above: Order Comment: Speci men Type: BLOOD SPECIMENOrdering Facility: [facility] Address: [address] [place] [address] Performed By: #### 5 8410-2 ####[facility] LABORATORYCLIA [id number] [address] STATES [place] MCHC (RBC) [Mass/Vol] 33.5 g/dL Normal 30.5-36.0 [facility] Comment on above: Order Comment: Speci men Type: BLOOD SPECIMENOrdering Facility: [facility] Address: [address] [place] [address] Performed By: #### 5 8410-2 ####[facility]ORATORYCLIA [id number] [address] STATES [place] MCV (RBC) [Entitic vol] 90.6 fL Normal 80.0-100.0 [facility] Comment on above: Order Comment: Speci men Type: BLOOD SPECIMENOrdering Facility: [facility] Address: [address] [place], [place] [address] Performed By: #### 5 8410-2 ####[facility] LABORATORYCLIA [id number] [address] Nucleated RBC (Bld) [#/Vol] 0.05 10*3/uL High <0.01 [facility] Comment on above: Order Comment: Speci men Type: BLOOD SPECIMENOrdering Facility: [facility] Address: [address] [place] [address] Performed By: #### 5 8410-2 ####[facility]ORATORYCLIA [id number] [address] OF [place] Platelet mean volume (Bld) [Entitic vol] 10.4 fL Normal 9.0-12.7 [facility] Comment on above: Order Comment: Speci men Type: BLOOD SPECIMENOrdering Facility: [facility] Address: [address] [place] [address] Performed By: #### 5 8410-2 ####[facility]ORATORYCLIA [id number] [address] Platelets (Bld) [#/Vol] 91 10*3/uL Low 150-400 [facility] Comment on above: Order Comment: Speci men Type: BLOOD SPECIMENOrdering Facility: [facility] Address: [address] [place] [address] Result Comment: No c lot detected. Performed By: #### 5 8410-2 ####[facility]ORATORYCLIA [id number] [address] RBC (Bld) [#/Vol] 4.78 10*6/uL Normal 3.90-5.20 [facility] Comment on above: Order Comment: Speci men Type: BLOOD SPECIMENOrdering Facility: [facility] Address: [address] [place] [address] Performed By: #### 5 8410-2 ####[facility]ORATORYCLIA [id number] [address] OF [place] WBC (Bld) [#/Vol] 14.81 10*3/uL High 3.70-11.00 [facility] Comment on above: Order Comment: Speci men Type: BLOOD SPECIMENOrdering Facility: [facility] Address: [address] [place] [address] Performed By: #### 5 8410-2 ####[facility]ORATORYCLIA [id number] [address] CK SerPl-cCncon 06-14-2024 CK [Catalytic activity/Vol] 149 U/L Normal 42-196 [facility] Comment on above: Order Comment: Speci men Type: BLOOD SPECIMENOrdering Facility: [facility] Address: [address] [place] [address] Performed By: #### 2 4323-8, 2532-0, 3040-3, 76599-4, 2157-6, 59684-0 ####[facility]ORATORYCLIA [id number] [address] OF [facility] CONSULTon 06-14-2024 CONSULT Normal [facility] CONSULT Normal [facility] CONSULT PROGon 06-14-2024 CONSULT PROG Normal [facility] CONSULT PROG Normal [facility] CREATININE BLDon 06-14-2024 Creatinine [Mass/Vol] 1.39 mg/dL High 0.58-0.96 [facility] Comment on above: Order Comment: Speci men Type: BLOOD SPECIMENOrdering Facility: [facility] Address: [address] [place] [address] Performed By: #### C RET1 ####[facility] LABORATORYCLIA [id number] [address] Creatinine and Glomerular filtration rate.predicted panel (S/P/Bld) 42 mL/min/1.73m??? Low >=60 [facility] Comment on above: Order Comment: Speci men Type: BLOOD SPECIMENOrdering Facility: [facility] Address: [address] [place] [address] Result Comment: Lily mated Glomerular Filtration Rate [...] actual GFR. Performed By: #### C RET1 ####[facility]ORATORYCLIA [id number] [place] [address] [place] Ceruloplasmin SerPl-mCncon 0 06-14-2024 Ceruloplasmin [Mass/Vol] 19 mg/dL Normal 16-45 [facility] Comment on above: Order Comment: Speci men Type: BLOOD SPECIMENOrdering Facility: [facility] Address: [address] [place] [address] Performed By: #### 1 6933-4, 32947-2, 2064-4, ANAIFS, 49929-0, 1825-9 ####[facility] LABCLIA [id number] [place] [address] [place] Comprehensive metabolic 2000 panelon 06-14-2024 Albumin [Mass/Vol] 2.6 g/dL Low 3.9-4.9 [facility] Comment on above: Order Comment: Mady rivera Type: BLOOD SPECIMENOrdering Facility: [facility] Address: [address] [place] [address] Performed By: #### 2 4323-8, 2532-0, 3040-3, 77575-1, 2156-10, ####[facility]ORATORYCLIA [id number] [place] [address] [place] ALP [Catalytic activity/Vol] 299 U/L High 34-123 [facility] Comment on above: Order Comment: Speci men Type: BLOOD SPECIMENOrdering Facility: [facility] Address: [address] [place] [address] Performed By: #### 2 4323-8, 2532-0, 3040-3, 99972-9, 2156-6, ####[facility]ORATORYCLIA [id number] [place] [address] [place] ALT With P-5'-P [Catalytic activity/Vol] 22 U/L Normal 7-38 [facility] Comment on above: Order Comment: Speci men Type: BLOOD SPECIMENOrdering Facility: [facility] Address: [address] [place] [address] Performed By: #### 2 4323-8, 2532-0, 3040-3, 45642-8, 2156-6, ####[facility]ORATORYCLIA [id number] [place] [address] [place] Anion gap [Moles/Vol] 22 mmol/L High 8-15 [facility] Comment on above: Order Comment: Speci men Type: BLOOD SPECIMENOrdering Facility: [facility] Address: [address] [place] [address] Performed By: #### 2 4323-8, 2532-0, 3040-3, 61402-2, 6, ####[facility]ORATORYCLIA [id number] [place] [address] [place] AST With P-5'-P [Catalytic activity/Vol] 72 U/L High 13-35 [facility] Comment on above: Order Comment: Speci men Type: BLOOD SPECIMENOrdering Facility: [facility] Address: [address] [place] [address] Performed By: #### 2 4323-8, 2532-0, 3040-3, 74241-6, 6, ####[facility]ORATORYCLIA [id number] [place] [address] [place] Bilirubin [Mass/Vol] 4.7 mg/dL High 0.2-1.3 [facility] Comment on above: Order Comment: Speci men Type: BLOOD SPECIMENOrdering Facility: [facility] Address: [address] [place] [address] Performed By: #### 2 4323-8, 2532-0, 3040-3, 82094-9, 2156-6, ####[facility] LABORATORYCLIA [id number] [place] [address] [place] Calcium [Mass/Vol] 9.5 mg/dL Normal 8.5-10.2 [facility] Comment on above: Order Comment: Speci men Type: BLOOD SPECIMENOrdering Facility: [facility] Address: [address] [place] [address] Performed By: #### 2 4323-8, 2532-0, 3040-3, 52680-0, 6, ####[facility]ORATORYCLIA [id number] [place] [address] [place] Chloride [Moles/Vol] 90 mmol/L Low 98-107 [facility] Comment on above: Order Comment: Speci men Type: BLOOD SPECIMENOrdering Facility: [facility] Address: [address] [place] [address] Performed By: #### 2 4323-8, 2532-0, 3040-3, 37537-7, 6, ####[facility]ORATORYCLIA [id number] [place] [address] [place] CO2 [Moles/Vol] 23 mmol/L Normal 22-30 [facility] Comment on above: Order Comment: Speci men Type: BLOOD SPECIMENOrdering Facility: [facility] Address: [address] [place], [place] [address] Performed By: #### 2 4323-8, 2532-0, 3040-3, 51678-5, 2156-10, ####[facility]ORATORYCLIA [id number] [place] [address] [place] Creatinine [Mass/Vol] 1.68 mg/dL High 0.58-0.96 [facility] Comment on above: Order Comment: Speci men Type: BLOOD SPECIMENOrdering Facility: [facility] Address: [address] [place] [address] Performed By: #### 2 4323-8, 2532-0, 3040-3, 70126-3, 2157-6, 62759-3 ####[facility] LABORATORYCLIA [id number] [place] [address] [place] Creatinine and Glomerular filtration rate.predicted panel (S/P/Bld) 34 mL/min/1.73m??? Low >=60 [facility] Comment on above: Order Comment: Mady rivera Type: BLOOD SPECIMENOrdering Facility: [facility] Address: [address] [place] [address] Result Comment: Lily mated Glomerular Filtration Rate [...] Performed By: #### 2 4323-8, 2532-0, 3040-3, 80347-2, 7-6, 26538-5 ####[facility] LABORATORYCLIA [id number] [place] [address] [place] Glucose [Mass/Vol] 116 mg/dL High 74-99 [facility] Comment on above: Order Comment: Mady rivera Type: BLOOD SPECIMENOrdering Facility: [facility] Address: [address] [place] [address] Result Comment: The [place] [employer] (ADA) provides guidance for cutoff [...] Standards of Medical Care in Diabetes 2016, [place] [employer]. Diabetes Care. 2016.39(Suppl 1). Performed By: #### 2 4323-8, 2532-0, 3040-3, 10445-8, 7-6, 26405-6 ####[facility] LABORATORYCLIA [id number] [place] [address] [place] Potassium [Moles/Vol] 2.7 mmol/L Low 3.7-5.1 [facility] Comment on above: Order Comment: Speci men Type: BLOOD SPECIMENOrdering Facility: [facility] Address: [address] [place] [address] Performed By: #### 2 4323-8, 2532-0, 3040-3, 78236-8, 2156-6, ####[facility] LABORATORYCLIA [id number] [place] [address] [place] Protein [Mass/Vol] 5.4 g/dL Low 6.3-8.0 [facility] Comment on above: Order Comment: Speci men Type: BLOOD SPECIMENOrdering Facility: [facility] Address: [address] [place] [address] Performed By: #### 2 4323-8, 2532-0, 3040-3, 57991-2, 2156-10, ####[facility] LABORATORYCLIA [id number] [place] [address] [place] Sodium [Moles/Vol] 135 mmol/L Low 136-144 [facility] Comment on above: Order Comment: Speci men Type: BLOOD SPECIMENOrdering Facility: [facility] Address: [address] [place] [address] Performed By: #### 2 4323-8, 2532-0, 3040-3, 36416-5, 2156-6, 33471-6 ####[facility] LABORATORYCLIA [id number] [place] [address] [place] Urea nitrogen [Mass/Vol] 22 mg/dL High 7-21 [facility] Comment on above: Order Comment: Speci men Type: BLOOD SPECIMENOrdering Facility: [facility] Address: [address] [place] [address] Performed By: #### 2 4323-8, 2532-0, 3040-3, 17879-8, 2157-6, 11703-6 ####[facility] LABORATORYCLIA [id number] [address] STATES OF [facility] ECG COMPLETEon 06-14-2024 ECG COMPLETE Normal [facility] Fibrinogen PPP-mCncon 2024 Fibrinogen Coag (PPP) [Mass/Vol] 163 mg/dL Low 200-400 [facility] Comment on above: Order Comment: Speci men Type: BLOOD SPECIMENOrdering Facility: [facility] Address: [address] [place] [address] Performed By: #### 3 255-7, 70512-0 ####[facility] LABORATORYCLIA [id number] [address] OF [facility] GLUCOSE, BLOOD (POC)on 06-14 Glucose [Mass/Vol] 118 mg/dL Abnormal 74 - 99 mg/dL [facility] Comment on above: Location:[facility], [address] [place] [address], [facility] The Accu-Chek Inform II glucose meter has [...] Interpretation and review of laboratory results Abnormal [facility] Gas and Carbon monoxide pane l (BldV)on 06-14-2024 Base excess Calc (BldV) [Moles/Vol] 7 mmol/L High 0-2 [facility] Comment on above: Order Comment: Speci men Type: VENOUS BLOOD SPECIMENOrdering Facility: [facility] Address: [address] [place] [address] Performed By: #### 2 4344-4 ####[facility] LABORATORYCLIA [id number] [address] STATES [facility] Body temperature 98.6 [degF] Normal [facility] Comment on above: Order Comment: Speci men Type: VENOUS BLOOD SPECIMENOrdering Facility: [facility] Address: [address] [place] [address] Performed By: #### 2 4344-4 ####[facility] LABORATORYCLIA [id number] [address] STATES [place] Calcium.ionized (BldV) [Mass/Vol] 1.14 mmol/L Normal 1.08-1.30 [facility] Comment on above: Order Comment: Speci men Type: VENOUS BLOOD SPECIMENOrdering Facility: [facility] Address: [address] [place] [address] Performed By: #### 2 4344-4 ####[facility] LABORATORYCLIA [id number] [address] STATES [facility] Calcium.ionized adjusted to pH 7.4 (BldA) [Moles/Vol] 1.24 mmol/L Normal 1.08-1.30 [facility] Comment on above: Order Comment: Speci men Type: VENOUS BLOOD SPECIMENOrdering Facility: [facility] Address: [address] [place] [address] Performed By: #### 2 4344-4 ####[facility] LABORATORYCLIA [id number] [address] STATES [place] Carboxyhemoglobin (BldV) [Mass fraction] 1.6 % Normal 0.0-2.0 [facility] Comment on above: Order Comment: Speci men Type: VENOUS BLOOD SPECIMENOrdering Facility: [facility] Address: [address] [place] [address] Result Comment: Carb oxyhemoglobin Reference Range for Smokers: 2.0-8.0% Performed By: #### 2 4344-4 ####[facility] LABORATORYCLIA [id number] [address] STATES [place] Chloride [Moles/Vol] 101 mmol/L Normal 97-105 [facility] Comment on above: Order Comment: Speci men Type: VENOUS BLOOD SPECIMENOrdering Facility: [facility] Address: [address] [place] [address] Performed By: #### 2 4344-4 ####[facility]ORATORYCLIA [id number] [address] OF [place] CO2 (BldV) [Partial pressure] 32 mm[Hg] Low 42-55 [facility] Comment on above: Order Comment: Speci men Type: VENOUS BLOOD SPECIMENOrdering Facility: [facility] Address: [address] [place] [address] Performed By: #### 2 4344-4 ####[facility] LABORATORYCLIA [id number] [address] FIO2 35 % Normal [facility] Comment on above: Order Comment: Speci men Type: VENOUS BLOOD SPECIMENOrdering Facility: [facility] Address: [address] [place] [address] Performed By: #### 2 4344-4 ####[facility] LABORATORYCLIA [id number] [address] STATES [place] Glucose [Mass/Vol] 146 mg/dL High 60-105 [facility] Comment on above: Order Comment: Speci men Type: VENOUS BLOOD SPECIMENOrdering Facility: [facility] Address: [address] [place] [address] Performed By: #### 2 4344-4 ####[facility] LABORATORYCLIA [id number] [address] [place] HCO3 (Bld) [Moles/Vol] 29 mmol/L High 24-28 [facility] Comment on above: Order Comment: Speci men Type: VENOUS BLOOD SPECIMENOrdering Facility: [facility] Address: [address] [place] [address] Performed By: #### 2 4344-4 ####[facility]ORATORYCLIA [id number] [address] OF [place] Hematocrit (Bld) [Volume fraction] 40.9 % Normal 36.0-46.0 [facility] Comment on above: Order Comment: Speci men Type: VENOUS BLOOD SPECIMENOrdering Facility: [facility] Address: [address] [place] [address] Performed By: #### 2 4344-4 ####[facility] LABORATORYCLIA [id number] [place] [address] [place] Hemoglobin (Bld) [Mass/Vol] 13.3 g/dL Normal 11.5-15.5 [facility] Comment on above: Order Comment: Speci men Type: VENOUS BLOOD SPECIMENOrdering Facility: [facility] Address: [address] [place] [address] Performed By: #### 2 4344-4 ####[facility] LABORATORYCLIA [id number] [place] [address] [place] INHALED TIDAL VOLUME (ML) 450 Normal [facility] Comment on above: Order Comment: Speci men Type: VENOUS BLOOD SPECIMENOrdering Facility: [facility] Address: [address] [place] [address] Performed By: #### 2 4344-4 ####[facility] LABORATORYCLIA [id number] [place] [address] [place] Lactate [Moles/Vol] 2.1 mmol/L Normal 0.5-2.2 [facility] Comment on above: Order Comment: Speci men Type: VENOUS BLOOD SPECIMENOrdering Facility: [facility] Address: [address] [place] [address] Performed By: #### 2 4344-4 ####[facility] LABORATORYCLIA [id number] [place] [address] [place] Methemoglobin (Bld) [Mass fraction] 1.0 % Normal 0.0-1.5 [facility] Comment on above: Order Comment: Speci men Type: VENOUS BLOOD SPECIMENOrdering Facility: [facility] Address: [address] [place] [address] Performed By: #### 2 4344-4 ####[facility]ORATORYCLIA [id number] [address] O2 THERAPY VENT=Ventilator Normal [facility] Comment on above: Order Comment: Speci men Type: VENOUS BLOOD SPECIMENOrdering Facility: [facility] Address: [address] [place] [address] Performed By: #### 2 4344-4 ####[facility] LABORATORYCLIA [id number] [address] [place] Oxygen (BldV) [Partial pressure] 94 mm[Hg] High 35-45 [facility] Comment on above: Order Comment: Speci men Type: VENOUS BLOOD SPECIMENOrdering Facility: [facility] Address: [address] [place] [address] Performed By: #### 2 4344-4 ####[facility] LABORATORYCLIA [id number] [address] Oxygen saturation in Venous blood 98 % High 60-85 [facility] Comment on above: Order Comment: Speci men Type: VENOUS BLOOD SPECIMENOrdering Facility: [facility] Address: [address] [place] [address] Performed By: #### 2 4344-4 ####[facility]ORATORYCLIA [id number] [address] Oxyhemoglobin (BldV) [Mass fraction] 95 % High 60-85 [facility] Comment on above: Order Comment: Speci men Type: VENOUS BLOOD SPECIMENOrdering Facility: [facility] Address: [address] [place] [address] Performed By: #### 2 4344-4 ####[facility]ORATORYCLIA [id number] [address] [place] PEEP/CPAP 5 cmH2O Normal [facility] Comment on above: Order Comment: Speci men Type: VENOUS BLOOD SPECIMENOrdering Facility: [facility] Address: [address] [place] [address] Performed By: #### 2 4344-4 ####[facility]ORATORYCLIA [id number] [address] [place] pH (BldV) 7.56 [pH] High 7.32-7.42 [facility] Comment on above: Order Comment: Speci men Type: VENOUS BLOOD SPECIMENOrdering Facility: [facility] Address: [address] [place] [address] Performed By: #### 2 4344-4 ####[facility]ORATORYCLIA [id number] [address] [place] Potassium [Moles/Vol] 4.0 mmol/L Normal 3.5-5.0 [facility] Comment on above: Order Comment: Speci men Type: VENOUS BLOOD SPECIMENOrdering Facility: [facility] Address: [address] [place] [address] Performed By: #### 2 4344-4 ####[facility]ORATORYCLIA [id number] [address] SET VENTILATOR RESPIRATORY RATE (BPM) 14 BPM Normal [facility] Comment on above: Order Comment: Speci men Type: VENOUS BLOOD SPECIMENOrdering Facility: [facility] Address: [address] [place] [address] Performed By: #### 2 4344-4 ####[facility]ORATORYCLIA [id number] [address] STATES [facility] Sodium [Moles/Vol] 138 mmol/L Normal 136-144 [facility] Comment on above: Order Comment: Speci men Type: VENOUS BLOOD SPECIMENOrdering Facility: [facility] Address: [address] [place] [address] Performed By: #### 2 4344-4 ####[facility]ATORYCLIA [id number] [address] [place] Base excess Calc (BldV) [Moles/Vol] 4 mmol/L High 0-2 [facility] Comment on above: Order Comment: Speci men Type: VENOUS BLOOD SPECIMENOrdering Facility: [facility] Address: [address] [place] [address] Performed By: #### 2 4344-4 ####[facility]ORYCLIA [id number] [address] Body temperature 97.52 [degF] Normal [facility] Comment on above: Order Comment: Speci men Type: VENOUS BLOOD SPECIMENOrdering Facility: [facility] Address: [address] [place] [address] Performed By: #### 2 4344-4 ####[facility]ORATORYCLIA [id number] [address] [place] Calcium.ionized (BldV) [Mass/Vol] 1.24 mmol/L Normal 1.08-1.30 [facility] Comment on above: Order Comment: Speci men Type: VENOUS BLOOD SPECIMENOrdering Facility: [facility] Address: [address] [place] [address] Performed By: #### 2 4344-4 ####[facility]ORATORYCLIA [id number] [address] Calcium.ionized adjusted to pH 7.4 (BldA) [Moles/Vol] 1.28 mmol/L Normal 1.08-1.30 [facility] Comment on above: Order Comment: Speci men Type: VENOUS BLOOD SPECIMENOrdering Facility: [facility] Address: [address] [place] [address] Performed By: #### 2 4344-4 ####[facility]ORATORYCLIA [id number] [address] [place] Carboxyhemoglobin (BldV) [Mass fraction] 1.3 % Normal 0.0-2.0 [facility] Comment on above: Order Comment: Speci men Type: VENOUS BLOOD SPECIMENOrdering Facility: [facility] Address: [address] [place] [address] Result Comment: Carb oxyhemoglobin Reference Range for Smokers: 2.0-8.0% Performed By: #### 2 4344-4 ####[facility]ORATORYCLIA [id number] [address] [place] Chloride [Moles/Vol] 101 mmol/L Normal 97-105 [facility] Comment on above: Order Comment: Speci men Type: VENOUS BLOOD SPECIMENOrdering Facility: [facility] Address: [address] [place] [address] Performed By: #### 2 4344-4 ####[facility]ORYCLIA [id number] [address] CO2 (BldV) [Partial pressure] 38 mm[Hg] Low 42-55 [facility] Comment on above: Order Comment: Speci men Type: VENOUS BLOOD SPECIMENOrdering Facility: [facility] Address: [address] [place] [address] Performed By: #### 2 4344-4 ####[facility]ATORYCLIA [id number] [address] CO2 adjusted to patient's actual temperature (BldV) [Partial pressure] 37 mmHg Low 42-55 [facility] Comment on above: Order Comment: Speci men Type: VENOUS BLOOD SPECIMENOrdering Facility: [facility] Address: [address] [place] [address] Performed By: #### 2 4344-4 ####[facility]ATORYCLIA [id number] [address] [place] FIO2 35 % Normal [facility] Comment on above: Order Comment: Speci men Type: VENOUS BLOOD SPECIMENOrdering Facility: [facility] Address: [address] [place] [address] Performed By: #### 2 4344-4 ####[facility]ATORYCLIA [id number] [place] [address] [place] Glucose [Mass/Vol] 117 mg/dL High 60-105 [facility] Comment on above: Order Comment: Speci men Type: VENOUS BLOOD SPECIMENOrdering Facility: [facility] Address: [address] [place] [address] Performed By: #### 2 4344-4 ####[facility]ATORYCLIA [id number] [place] [address] [place] HCO3 (Bld) [Moles/Vol] 27 mmol/L Normal 24-28 [facility] Comment on above: Order Comment: Speci men Type: VENOUS BLOOD SPECIMENOrdering Facility: [facility] Address: [address] [place] [address] Performed By: #### 2 4344-4 ####[facility]ORATORYCLIA [id number] [address] [place] Hematocrit (Bld) [Volume fraction] 43.4 % Normal 36.0-46.0 [facility] Comment on above: Order Comment: Speci men Type: VENOUS BLOOD SPECIMENOrdering Facility: [facility] Address: [address] [place] [address] Performed By: #### 2 4344-4 ####[facility]ORATORYCLIA [id number] [address] [place] Hemoglobin (Bld) [Mass/Vol] 14.1 g/dL Normal 11.5-15.5 [facility] Comment on above: Order Comment: Speci men Type: VENOUS BLOOD SPECIMENOrdering Facility: [facility] Address: [address] [place] [address] Performed By: #### 2 4344-4 ####[facility]ORATORYCLIA [id number] [address] [place] Lactate [Moles/Vol] 8.5 mmol/L High 0.5-2.2 [facility] Comment on above: Order Comment: Speci men Type: VENOUS BLOOD SPECIMENOrdering Facility: [facility] Address: [address] [place] [address] Performed By: #### 2 4344-4 ####[facility]ORATORYCLIA [id number] [address] [place] Methemoglobin (Bld) [Mass fraction] 0.8 % Normal 0.0-1.5 [facility] Comment on above: Order Comment: Speci men Type: VENOUS BLOOD SPECIMENOrdering Facility: [facility] Address: [facility] [place] [address] Performed By: #### 2 4344-4 ####[facility]ORATORYCLIA [id number] [address] [place] O2 THERAPY VENT=Ventilator Normal [facility] Comment on above: Order Comment: Speci men Type: VENOUS BLOOD SPECIMENOrdering Facility: [facility] Address: [address] [place] [address] Performed By: #### 2 4344-4 ####[facility]ORATORYCLIA [id number] [address] [place] Oxygen (BldV) [Partial pressure] mm[Hg] Normal 35-45 [facility] Comment on above: Order Comment: Speci men Type: VENOUS BLOOD SPECIMENOrdering Facility: [facility] Address: [address] [place] [address] Performed By: #### 2 4344-4 ####[facility]ORATORYCLIA [id number] [address] [place] Oxygen adjusted to patient's actual temperature (BldV) [Partial pressure] <40 Normal 35-45 [facility] Comment on above: Order Comment: Speci men Type: VENOUS BLOOD SPECIMENOrdering Facility: [facility] Address: [address] [place] [address] Performed By: #### 2 4344-4 ####[facility]ORATORYCLIA [id number] [address] [place] Oxygen saturation in Venous blood 64 % Normal 60-85 [facility] Comment on above: Order Comment: Speci men Type: VENOUS BLOOD SPECIMENOrdering Facility: [facility] Address: [address] [place] [address] Performed By: #### 2 4344-4 ####[facility]ATORYCLIA [id number] [address] [place] Oxyhemoglobin (BldV) [Mass fraction] 62 % Normal 60-85 [facility] Comment on above: Order Comment: Speci men Type: VENOUS BLOOD SPECIMENOrdering Facility: [facility] Address: [address] [place] [address] Performed By: #### 2 4344-4 ####[facility]ATORYCLIA [id number] [place] [address] [place] pH (BldV) 7.46 [pH] High 7.32-7.42 [facility] Comment on above: Order Comment: Speci men Type: VENOUS BLOOD SPECIMENOrdering Facility: [facility] Address: [address] [place] [address] Performed By: #### 2 4344-4 ####[facility]ORATORYCLIA [id number] [address] [place] pH adjusted to patient's actual temperature (BldV) 7.47 High 7.32-7.42 [facility] Comment on above: Order Comment: Speci men Type: VENOUS BLOOD SPECIMENOrdering Facility: [facility] Address: [address] [place] [address] Performed By: #### 2 4344-4 ####[facility]ORATORYCLIA [id number] [address] [place] Potassium [Moles/Vol] 2.8 mmol/L Low 3.5-5.0 [facility] Comment on above: Order Comment: Speci men Type: VENOUS BLOOD SPECIMENOrdering Facility: [facility] Address: [address] [place] [address] Performed By: #### 2 4344-4 ####[facility]ORATORYCLIA [id number] [address] [place] Sodium [Moles/Vol] 138 mmol/L Normal 136-144 [facility] Comment on above: Order Comment: Speci men Type: VENOUS BLOOD SPECIMENOrdering Facility: [facility] Address: [address] [place] [address] Performed By: #### 2 4344-4 ####[facility]ORATORYCLIA [id number] [place] [address] [place] Base excess Calc (BldV) [Moles/Vol] 2 mmol/L Normal 0-2 [facility] Comment on above: Order Comment: Speci men Type: VENOUS BLOOD SPECIMENOrdering Facility: [facility] Address: [address] [place] [address] Performed By: #### 2 4344-4 ####[facility]ORATORYCLIA [id number] [address] Body temperature 97.34 [degF] Normal [facility] Comment on above: Order Comment: Speci men Type: VENOUS BLOOD SPECIMENOrdering Facility: [facility] Address: [address] [place] [address] Performed By: #### 2 4344-4 ####[facility]ORATORYCLIA [id number] [address] Calcium.ionized (BldV) [Mass/Vol] 1.18 mmol/L Normal 1.08-1.30 [facility] Comment on above: Order Comment: Speci men Type: VENOUS BLOOD SPECIMENOrdering Facility: [facility] Address: [address] [place] [address] Performed By: #### 2 4344-4 ####[facility]ORATORYCLIA [id number] [address] Calcium.ionized adjusted to pH 7.4 (BldA) [Moles/Vol] 1.22 mmol/L Normal 1.08-1.30 [facility] Comment on above: Order Comment: Speci men Type: VENOUS BLOOD SPECIMENOrdering Facility: [facility] Address: [address] [place] [address] Performed By: #### 2 4344-4 ####[facility]ORATORYCLIA [id number] [address] Carboxyhemoglobin (BldV) [Mass fraction] 0.8 % Normal 0.0-2.0 [facility] Comment on above: Order Comment: Speci men Type: VENOUS BLOOD SPECIMENOrdering Facility: [facility] Address: [address] [place] [address] Result Comment: Carb oxyhemoglobin Reference Range for Smokers: 2.0-8.0% Performed By: #### 2 4344-4 ####[facility]ORATORYCLIA [id number] [address] [place] Chloride [Moles/Vol] 98 mmol/L Normal 97-105 [facility] Comment on above: Order Comment: Speci men Type: VENOUS BLOOD SPECIMENOrdering Facility: [facility] Address: [address] [place] [address] Performed By: #### 2 4344-4 ####[facility]ORATORYCLIA [id number] [address] [place] CO2 (BldV) [Partial pressure] 34 mm[Hg] Low 42-55 [facility] Comment on above: Order Comment: Speci men Type: VENOUS BLOOD SPECIMENOrdering Facility: [facility] Address: [address] [place] [address] Performed By: #### 2 4344-4 ####[facility]ORATORYCLIA [id number] [address] CO2 adjusted to patient's actual temperature (BldV) [Partial pressure] 33 mmHg Low 42-55 [facility] Comment on above: Order Comment: Speci men Type: VENOUS BLOOD SPECIMENOrdering Facility: [facility] Address: [address] [place] [address] Performed By: #### 2 4344-4 ####[facility]ORATORYCLIA [id number] [address] [place] FIO2 100 % Normal [facility] Comment on above: Order Comment: Speci men Type: VENOUS BLOOD SPECIMENOrdering Facility: [facility] Address: [address] [place] [address] Performed By: #### 2 4344-4 ####[facility] LABORATORYCLIA [id number] [address] [place] Glucose [Mass/Vol] 120 mg/dL High 60-105 [facility] Comment on above: Order Comment: Speci men Type: VENOUS BLOOD SPECIMENOrdering Facility: [facility] Address: [address] [place] [address] Performed By: #### 2 4344-4 ####[facility]ORYCLIA [id number] [address] [place] HCO3 (Bld) [Moles/Vol] 25 mmol/L Normal 24-28 [facility] Comment on above: Order Comment: Speci men Type: VENOUS BLOOD SPECIMENOrdering Facility: [facility] Address: [address] [place] [address] Performed By: #### 2 4344-4 ####[facility]ORATORYCLIA [id number] [place] [address] [place] Hematocrit (Bld) [Volume fraction] 45.6 % Normal 36.0-46.0 [facility] Comment on above: Order Comment: Speci men Type: VENOUS BLOOD SPECIMENOrdering Facility: [facility] Address: [address] [place] [address] Performed By: #### 2 4344-4 ####[facility]ORATORYCLIA [id number] [place] [address] [place] Hemoglobin (Bld) [Mass/Vol] 14.9 g/dL Normal 11.5-15.5 [facility] Comment on above: Order Comment: Speci men Type: VENOUS BLOOD SPECIMENOrdering Facility: [facility] Address: [address] [place] [address] Performed By: #### 2 4344-4 ####[facility]ORATORYCLIA [id number] [place] [address] [place] Lactate [Moles/Vol] 9.5 mmol/L High 0.5-2.2 [facility] Comment on above: Order Comment: Speci men Type: VENOUS BLOOD SPECIMENOrdering Facility: [facility] Address: [address] [place] [address] Performed By: #### 2 4344-4 ####[facility]ORATORYCLIA [id number] [address] [place] Methemoglobin (Bld) [Mass fraction] 0.7 % Normal 0.0-1.5 [facility] Comment on above: Order Comment: Speci men Type: VENOUS BLOOD SPECIMENOrdering Facility: [facility] Address: [address] [place] [address] Performed By: #### 2 4344-4 ####[facility]ORYCLIA [id number] [address] O2 THERAPY VENT=Ventilator Normal [facility] Comment on above: Order Comment: Speci men Type: VENOUS BLOOD SPECIMENOrdering Facility: [facility] Address: [address] [place] [address] Performed By: #### 2 4344-4 ####[facility]ORYCLIA [id number] [address] [place] Oxygen (BldV) [Partial pressure] 42 mm[Hg] Normal 35-45 [facility] Comment on above: Order Comment: Speci men Type: VENOUS BLOOD SPECIMENOrdering Facility: [facility] Address: [address] [place] [address] Performed By: #### 2 4344-4 ####[facility]ATORYCLIA [id number] [address] Oxygen adjusted to patient's actual temperature (BldV) [Partial pressure] 40 mmHg Normal 35-45 [facility] Comment on above: Order Comment: Speci men Type: VENOUS BLOOD SPECIMENOrdering Facility: [facility] Address: [address] [place] [address] Performed By: #### 2 4344-4 ####[facility]ORYCLIA [id number] [address] [place] Oxygen saturation in Venous blood 78 % Normal 60-85 [facility] Comment on above: Order Comment: Speci men Type: VENOUS BLOOD SPECIMENOrdering Facility: [facility] Address: [address] [place] [address] Performed By: #### 2 4344-4 ####[facility]ORYCLIA [id number] [address] Oxyhemoglobin (BldV) [Mass fraction] 77 % Normal 60-85 [facility] Comment on above: Order Comment: Speci men Type: VENOUS BLOOD SPECIMENOrdering Facility: [facility] Address: [address] [place] [address] Performed By: #### 2 4344-4 ####[facility]ORATORYCLIA [id number] [address] [place] pH (BldV) 7.47 [pH] High 7.32-7.42 [facility] Comment on above: Order Comment: Speci men Type: VENOUS BLOOD SPECIMENOrdering Facility: [facility] Address: [address] [place] [address] Performed By: #### 2 4344-4 ####[facility]ORATORYCLIA [id number] [address] [place] pH adjusted to patient's actual temperature (BldV) 7.48 High 7.32-7.42 [facility] Comment on above: Order Comment: Speci men Type: VENOUS BLOOD SPECIMENOrdering Facility: [facility] Address: [address] [place] [address] Performed By: #### 2 4344-4 ####[facility]ORATORYCLIA [id number] [place] [address] [place] Potassium [Moles/Vol] 2.9 mmol/L Low 3.5-5.0 [facility] Comment on above: Order Comment: Speci men Type: VENOUS BLOOD SPECIMENOrdering Facility: [facility] Address: [address] [place] [address] Performed By: #### 2 4344-4 ####[facility]ORATORYCLIA [id number] [place] [address] [place] Sodium [Moles/Vol] 138 mmol/L Normal 136-144 [facility] Comment on above: Order Comment: Speci men Type: VENOUS BLOOD SPECIMENOrdering Facility: [facility] Address: [address] [place] [address] Performed By: #### 2 4344-4 ####[facility]ORATORYCLIA [id number] [place] [address] [place] HBV core Ab Ser Qlon 025 HBV core Ab Ql (S) Negative Normal Negative [facility] Comment on above: Order Comment: Speci men Type: BLOOD SPECIMENOrdering Facility: [facility] Address: [address] [place] [address] Result Comment: No e vidence of current or past infection with Hepatitis B virus. Should recent infection be suspected, repeat testing may be considered 3-4 weeks after this draw. Performed By: #### 1 6933-4, 62677-3, 2064-4, ANAIFS, 31292-9, 1825-9 ####[facility] LABCLIA [id number] [place] [address] [place] HBV surface Ab Ql (S)on HBV surface Ab Qn (S) 3.50 mIU/mL Normal [facility] Comment on above: Order Comment: Speci miguel Type: BLOOD SPECIMENOrdering Facility: [facility] Address: [address] [place] [address] Result Comment: <8.5 mIU/mL: No serological evidence of immunity to Hepatitis B Virus.>/= 8.5 to <11.5 mIU/mL: No serological evidence of immunity to Hepatitis B Virus.>/= 11.5 mIU/mL: Consistent with serological evidence of immunity to Hepatitis B Virus. Performed By: #### 2 2322-2, 5195-3, 07932-2, 253-0, ####[facility]CLIA [id number] [address] STATES OF [facility] HBV surface Ab Ser Qlon HBV surface Ab Ql (S) Negative Normal [facility] Comment on above: Order Comment: [facility] Type: BLOOD SPECIMENOrdering Facility: [facility] Address: [address] [place] [address] Result Comment: No s erological evidence of immunity to Hepatitis B Virus. Performed By: #### 2 2322-2, 5195-3, 13761-3, 2532-0, ####[facility]ORATORYCLIA [id number] [place] [address] [place] HBV surface Ag Ser Qlon 02 HBV surface Ag Ql (S) Non-Reactive Normal Nonreactive [facility] Comment on above: Order Comment: Speci men Type: BLOOD SPECIMENOrdering Facility: [facility] Address: [address] [place] [address] Performed By: #### 2 2322-2, 5195-3, 56866-4, 2532-0, 20684-1 ####[facility]ORATORYCLIA [id number] [address] HCV Ab Ser Qlon 06-14-2024 HCV Ab Ql (S) Non-Reactive Normal Nonreactive [facility] Comment on above: Order Comment: Speci men Type: BLOOD SPECIMENOrdering Facility: [facility] Address: [address] [place] [address] Result Comment: The result suggests no evidence of active infection with Hepatitis C virus. Should recent infection be suspected, repeat testing may be considered 4-6 weeks after this draw. Performed By: #### 1 6128-1 ####[facility]CL[facility] [id number] [address] HIGH SENSITIVITY TROPONIN To n 06-14-2024 Troponin T.cardiac High sensitivity method [Mass/Vol] 32 ng/L High <12 [facility] Comment on above: Order Comment: Speci men Type: BLOOD SPECIMENOrdering Facility: [facility] Address: [address] [place] [address] Performed By: #### H STNT ####[facility]ORATORYCLIA [id number] [address] [place] HISTORY PHYSICALon 5 HISTORY PHYSICAL Normal [facility] HIV 1+2 Ab IA Qlon 5 HIV 1 and 2 Ab IA.rapid Nom (S/P/Bld) Normal [facility] Comment on above: Order Comment: Speci men Type: BLOOD SPECIMENOrdering Facility: [facility] Address: [address] [place] [address] Result Comment: Test not indicated. Performed By: #### 2 2322-2, 5195-3, 28669-7, 2532-0, 22790-6 ####[facility] LABORATORYCLIA [id number] [address] OF [facility] HIV 1+2 Ab+HIV1 p24 Ag IA Ql Non-Reactive Normal Nonreactive [facility] Comment on above: Order Comment: Speci men Type: BLOOD SPECIMENOrdering Facility: [facility] Address: [address] [place] [address] Result Comment: [place] Rev. Code 3701.243(E): This information has been [...] methodology for this assay has moved from [employer] XP to [employer] 8000 effective February 14, 2022. Please note there may be a change in the reporting units and/or reference range. Performed By: #### 2 2322-2, 5195-3, 76274-7, 2532-0, ####[facility] LABORATORYCLIA [id number] [address] STATES OF [facility] HIV immunoassay testing algorithm interpretation (S/P/Bld) [Interp] Normal [facility] Comment on above: Order Comment: Speci men Type: BLOOD SPECIMENOrdering Facility: [facility] Address: [address] [place] [address] Result Comment: No e vidence of HIV-1 or HIV-2 infection. Should recent infection be suspected, repeat testing may be considered 2-3 weeks after this draw. Performed By: #### 2 2322-2, 5195-3, 77231-6, 2532-0, 51947-2 ####[facility] LABORATORYCLIA [id number] [address] [place] Hgb Bld-mCncon 06-14-2024 Hemoglobin (Bld) [Mass/Vol] 13.6 g/dL Normal 11.5-15.5 [facility] Comment on above: Order Comment: Speci men Type: BLOOD SPECIMENOrdering Facility: [facility] Address: [address] [place] [address] Performed By: #### 7 18-7 ####[facility] LABORATORYCLIA [id number] [place] [address] [place] Hemoglobin (Bld) [Mass/Vol] 13.1 g/dL Normal 11.5-15.5 [facility] Comment on above: Order Comment: Speci men Type: BLOOD SPECIMENOrdering Facility: [facility] Address: [address] [place] [address] Performed By: #### 7 18-7 ####[facility] LABORATORYCLIA [id number] [place] [address] [place] Hemoglobin (Bld) [Mass/Vol] 13.2 g/dL Normal 11.5-15.5 [facility] Comment on above: Order Comment: Speci men Type: BLOOD SPECIMENOrdering Facility: [facility] Address: [address] [place] [address] Performed By: #### 7 18-7 ####[facility] LABORATORYCLIA [id number] [place] [address] [place] LDH SerPl-cCncon 06-14-2024 LDH [Catalytic activity/Vol] 397 U/L High 135-214 [facility] Comment on above: Order Comment: Speci men Type: BLOOD SPECIMENOrdering Facility: [facility] Address: [address] [place] [address] Performed By: #### 2 4323-8, 2532-0, 3040-3, 08520-1, 2157-6, 38843-5 ####[facility] LABORATORYCLIA [id number] [place] [address] [place] LDH [Catalytic activity/Vol] 381 U/L High 135-214 [facility] Comment on above: Order Comment: Speci men Type: BLOOD SPECIMENOrdering Facility: [facility] Address: [address] [place] [address] Performed By: #### 2 2322-2, 5195-3, 10674-2, 2-0, ####[facility] LABORATORYCLIA [id number] [address] OF [facility] Lactate (Bld) [Moles/Vol]on 06-14-2024 Lactate [Moles/Vol] 5.4 mmol/L High 0.5-2.2 [facility] Comment on above: Order Comment: Speci men Type: BLOOD SPECIMENOrdering Facility: [facility] Address: [address] [place] [address] Performed By: #### 3 2693-4 ####[facility] LABORATORYCLIA [id number] [address] Lipase SerPl-cCncon 06-14-19 25 Lipase [Catalytic activity/Vol] 20 U/L Normal 16-61 [facility] Comment on above: Order Comment: Speci men Type: BLOOD SPECIMENOrdering Facility: [facility] Address: [address] [place] [address] Performed By: #### 2 4323-8, 2532-0, 3040-3, 38771-9, 2156-6, ####[facility] LABORATORYCLIA [id number] [address] Magnesium SerPl-mCncon 06-14 Magnesium [Mass/Vol] 2.0 mg/dL Normal 1.7-2.3 [facility] Comment on above: Order Comment: Speci men Type: BLOOD SPECIMENOrdering Facility: [facility] Address: [address] [id number] Performed By: #### 2 4323-8, 2532-0, 3040-3, 05986-7, 2156-6, ####[facility] LABORATORYCLIA [id number] [address] [place] Performed By: #### 2 2322-2, 5195-3, 47286-4, 2531-0, ####[facility] LABORATORYCLIA [id number] [place] [address] [place] Mitochondria Ab IF Ql (S)on 06-14-2024 Mitochondria M2 Ab IA Qn (S) 17.1 Units Normal <=20.0 [facility] Comment on above: Order Comment: Speci men Type: BLOOD SPECIMENOrdering Facility: [facility] Address: [address] [place] [address] Performed By: #### 1 6933-4, 82509-6, 2063-08, MARCIAL, 58695-6, 1825-01 ####[facility] LABCLIA [id number] [address] [place] Mitochondria M2 Ab Ql (S) Negative Normal Negative [facility] Comment on above: Order Comment: Speci [facility] Type: BLOOD SPECIMENOrdering Facility: [facility] Address: [address] [place] [address] Result Comment: Anti -mitochondrial antibody test is used as an aid in diagnosis of primary biliary cholangitis. Clinical correlation is required. Performed By: #### 1 6933-4, 57479-0, 2063-08, MARCIAL, 45166-9, 1825-01 ####[facility] LABCLIA [id number] [place] [address] [place] POTASSIUMon 06-14-2024 Potassium [Moles/Vol] 4.4 mmol/L Normal 3.7-5.1 [facility] Comment on above: Order Comment: Speci men Type: BLOOD SPECIMENOrdering Facility: [facility] Address: [address] [place] [address] Performed By: #### K 1 ####[facility] LABORATORYCLIA [id number] [address] [place] PT panel Coag (PPP)on 2024 INR Coag (PPP) [Relative time] 1.8 {INR} High 0.9-1.3 [facility] Comment on above: Order Comment: Speci men Type: BLOOD SPECIMENOrdering Facility: [facility] Address: [address] [place] [address] Result Comment: [place] min K Antagonist (VKA) Therapeutic Range: INR 2 to 3 (Target INR of 2.5)Note: For patients treated with VKA drugs, such as warfarin, the [employer] [employer] 2012 Guideline recommends [...] of 3).Cathie GH, et al. Chest 2012, 141:7S-47SNishlnace RA, et al. [facility] 2017, 70: 252-289 Performed By: #### 3 255-7, 27455-5 ####[facility]LECLIA [id number] [place] [address] [place] PT Coag (PPP) [Time] 18.3 s High 9.7-13.0 [facility] Comment on above: Order Comment: Mady rivera Type: BLOOD SPECIMENOrdering Facility: [facility] Address: [address] [place] [address] Performed By: #### 3 255-7, 25267-7 ####[facility] LABORATORYCLIA [id number] [place] [address] [place] INR Coag (PPP) [Relative time] 2.5 {INR} High 0.9-1.3 [facility] Comment on above: Order Comment: Mady rivera Type: BLOOD SPECIMENOrdering Facility: [facility] Address: [address] [place] [address] Result Comment: [place] min K Antagonist (VKA) Therapeutic Range: INR 2 to 3 (Target INR of 2.5)Note: For patients treated with VKA drugs, such as warfarin, the [place] [employer] 2012 Guideline recommends [...] al. Chest 2012, 141:7S-47SNishimdarling RA, et al. [facility] 2017, 70: 252-289 Performed By: #### 3 4528-0, 23572-4 ####[facility] LABORATORYCLIA [id number] [address] [place] PT Coag (PPP) [Time] 25.5 s High 9.7-13.0 [facility] Comment on above: Order Comment: Speci men Type: BLOOD SPECIMENOrdering Facility: [facility] Address: [address] [place] [address] Performed By: #### 3 4528-0, 81443-9 ####[facility]LECLIA [id number] [address] OF [facility] SEPSIS LACTATE W/ REFLEX (IN ITIAL)on 06-14-2024 Lactate [Moles/Vol] 9.4 mmol/L High 0.0-2.0 [facility] Comment on above: Order Comment: Speci men Type: BLOOD SPECIMENOrdering Facility: [facility] Address: [address] [place] [address] Performed By: #### S LACTR ####[facility] LABORATORYCLIA [id number] [address] SEPSIS LACTATE W/ REFLEX (SE COND)on 06-14-2024 Lactate [Moles/Vol] 9.0 mmol/L High 0.0-2.0 [facility] Comment on above: Order Comment: Speci men Type: BLOOD SPECIMENOrdering Facility: [facility] Address: [address] [place] [address] Performed By: #### S LACT2 ####[facility]LECLIA [id number] [place] [address] [place] STAPHYLOCOCCUS AUREUS AND MR SA SCREEN, PCR, NASALon 06-14-2024 S. aureus and MRSA panel TONIO+probe (Nose) Methicillin-SUSCEPTIBLE Staphylococcus aureus Detected Abnormal Not Detected [facility] Comment on above: Order Comment: Speci men Type: SWABOrdering Facility: [facility] Address: [address] [place] [address] Performed By: #### S APCR ####[facility] HOSPITALIA [id number] [place] [address] [place] Smooth muscle Ab Ql (S)on ACTIN SMOOTH MUSCLE IGG QUALITATIVE Negative Normal Negative [facility] Comment on above: Order Comment: Speci men Type: BLOOD SPECIMENOrdering Facility: [facility] Address: [address] [place] [address] Performed By: #### 1 6933-4, 08757-5, 2063-08, ANAIFS, 42190-0, 1825-01 ####[facility] LABCLIA [id number] [place] [address] [place] ACTIN SMOOTH MUSCLE IGG QUANTITATIVE 11 Units Normal <20 [facility] Comment on above: Order Comment: Speci men Type: BLOOD SPECIMENOrdering Facility: [facility] Address: [address] [place] [address] Performed By: #### 1 6933-4, 05987-9, 4, ANAIFS, 92089-0, 1825-01 ####[facility] LABCLIA [id number] [place] [address] [place] TOXICOLOGY SCREEN, ROUTINE U RINEon 06-14-2024 Amphetamines Confirm (U) [Mass/Vol] Negative Normal Negative [facility] Comment on above: Order Comment: Speci men Type: URINE SPECIMENOrdering Facility: [facility] Address: [address] [place] [address] Result Comment: Cuto ff threshold at 1000 ng/mL. Performed By: #### U TOX2 ####[facility]ORATORYCLIA [id number] [address] [place] BARBITURATES, URINE Negative Normal Negative [facility] Comment on above: Order Comment: Speci men Type: URINE SPECIMENOrdering Facility: [facility] Address: [address] [place] [address] Result Comment: Cuto ff threshold at 200 ng/mL. Performed By: #### U TOX2 ####[facility]ORATORYCLIA [id number] [place] [address] [place] BENZODIAZEPINES, UR Positive Abnormal Negative [facility] Comment on above: Order Comment: Speci men Type: URINE SPECIMENOrdering Facility: [facility] Address: [address] [place] [address] Result Comment: Cuto ff threshold at 200 ng/mL. Performed By: #### U TOX2 ####[facility]ATORYCLIA [id number] [place] [address] [place] Cannabinoids Screen Ql (U) Negative Normal Negative [facility] Comment on above: Order Comment: Speci men Type: URINE SPECIMENOrdering Facility: [facility] Address: [address] [place] [address] Result Comment: Cuto ff threshold at 50 ng/mL. Performed By: #### U TOX2 ####[facility]ATORYCLIA [id number] [place] [address] [place] Cocaine Ql (U) Negative Normal Negative [facility] Comment on above: Order Comment: Speci men Type: URINE SPECIMENOrdering Facility: [facility] Address: [address] [place] [address] Result Comment: Cuto ff threshold at 300 ng/mL. Performed By: #### U TOX2 ####[facility]ATORYCLIA [id number] [place] [address] [place] Ethanol (U) [Mass/Vol] <11 Normal <11 [facility] Comment on above: Order Comment: Speci men Type: URINE SPECIMENOrdering Facility: [facility] Address: [address] [place] [address] Performed By: #### U TOX2 ####[facility] LABORATORYCLIA [id number] [address] Opiates Screen Ql (U) Negative Normal Negative [facility] Comment on above: Order Comment: Speci men Type: URINE SPECIMENOrdering Facility: [facility] Address: [address] [place] [address] Result Comment: Cuto ff threshold at 300 ng/mL. Performed By: #### U TOX2 ####[facility]ORATORYCLIA [id number] [address] oxyCODONE cutoff Screen (U) [Mass/Vol] Negative Normal Negative [facility] Comment on above: Order Comment: Speci men Type: URINE SPECIMENOrdering Facility: [facility] Address: [address] [place] [address] Result Comment: Cuto ff threshold at 100 ng/mL. Performed By: #### U TOX2 ####[facility] LABORATORYIA [id number] [address] Phencyclidine Ql (U) Negative Normal Negative [facility] Comment on above: Order Comment: Speci men Type: URINE SPECIMENOrdering Facility: [facility] Address: [address] [place] [address] Result Comment: Cuto ff threshold at 25 ng/mL. Performed By: #### U TOX2 ####[facility]ORATORYCLIA [id number] [address] OF [facility] TYPE + SCREENon 06-14-2024 ABO O Normal [facility] Comment on above: Order Comment: Speci men Type: BLOOD SPECIMENOrdering Facility: [facility] Address: [address] [place] [address] Performed By: #### T SCR ####[facility] BLOOD BANKCLIA [id number] [address] Rh Nom (Bld) Positive Normal [facility] Comment on above: Order Comment: Speci men Type: BLOOD SPECIMENOrdering Facility: [facility] Address: [address] [place] [address] Performed By: #### T SCR ####[facility] BLOOD BANKCLIA [id number] [address] [id number] [place] OF [facility] TYPE AND SCREEN EXPIRATION 06/17/2024 23:59 Normal [facility] Comment on above: Order Comment: Speci men Type: BLOOD SPECIMENOrdering Facility: [facility] Address: [address] [place] [address] Performed By: #### T SCR ####[facility] BLOOD BANKCLIA [id number] [address] [place] [id number] [place] US ABD LIVER VASCULARon 02-0 US ABD LIVER VASCULAR Normal [facility] US DOPPLER COMPLETEon 2024 US DOPPLER COMPLETE Normal [facility] Upper GI endoscopyon 025 Upper GI endoscopy Normal [facility] Urinalysis complete panel (U )on 06-14-2024 Bilirubin Ql (U) 1+ Abnormal Negative [facility] Comment on above: Order Comment: Speci men Type: URINE SPECIMENOrdering Facility: [facility] Address: [address] [place] [address] Result Comment: Sugg est correlation with clinical findings and serum bilirubin if clinically indicated. Performed By: #### 2 4356-8, 630-4 ####[facility] LABORATORYCLIA [id number] [place] [phone] [place] [facility] Clarity (Unsp spec) Clear Normal Clear [facility] Comment on above: Order Comment: Speci men Type: URINE SPECIMENOrdering Facility: [facility] Address: [address] [place] [address] Performed By: #### 2 4356-8, 630-4 ####[facility] LABORATORYCLIA [id number] [address] OF [facility] Color (U) Yellow Normal yellow [facility] Comment on above: Order Comment: Speci men Type: URINE SPECIMENOrdering Facility: [facility] Address: [address] [place] [address] Performed By: #### 2 4356-8, 630-4 ####[facility] LABORATORYCLIA [id number] [address] Glucose Test strip (U) [Mass/Vol] Negative Normal Trace, Negative [facility] Comment on above: Order Comment: Speci men Type: URINE SPECIMENOrdering Facility: [facility] Address: [address] [place] [address] Performed By: #### 2 4356-8, 630-4 ####[facility] LABORATORYCLIA [id number] [address] Hemoglobin Ql (U) 2+ Abnormal Negative, Trace [facility] Comment on above: Order Comment: Speci men Type: URINE SPECIMENOrdering Facility: [facility] Address: [address] [place] [address] Performed By: #### 2 4356-8, 630-4 ####[facility] LABORATORYCLIA [id number] [address] Ketones Ql (U) Trace Normal Negative, Trace [facility] Comment on above: Order Comment: Speci men Type: URINE SPECIMENOrdering Facility: [facility] Address: [address] [place] [address] Performed By: #### 2 4356-8, 630-4 ####[facility] LABORATORYCLIA [id number] [address] Leukocyte esterase Test strip Ql (U) 500 Melina/uL Abnormal Negative, 25 Melina/uL [facility] Comment on above: Order Comment: Speci men Type: URINE SPECIMENOrdering Facility: [facility] Address: [address] [place] [address] Performed By: #### 2 4356-8, 630-4 ####[facility] LABORATORYCLIA [id number] [place] [address] [place] Nitrite Ql (U) Negative Normal Negative [facility] Comment on above: Order Comment: Speci men Type: URINE SPECIMENOrdering Facility: [facility] Address: [address] [place] [address] Performed By: #### 2 4356-8, 630-4 ####[facility] LABORATORYCLIA [id number] [address] STATES [facility] pH (U) 6.5 [pH] Normal 5.0-8.0 [facility] Comment on above: Order Comment: Speci men Type: URINE SPECIMENOrdering Facility: [facility] Address: [address] [place] [address] Performed By: #### 2 4356-8, 630-4 ####[facility] LABORATORYCLIA [id number] [address] Protein (U) [Mass/Vol] 1+ Abnormal Trace , Negative [facility] Comment on above: Order Comment: Speci men Type: URINE SPECIMENOrdering Facility: [facility] Address: [address] [place] [address] Performed By: #### 2 4356-8, 630-4 ####[facility] LABORATORYCLIA [id number] [address] RBC LM.HPF (Urine sed) [#/Area] 11-25 /HPF Abnormal 0-3 /HPF [facility] Comment on above: Order Comment: Speci men Type: URINE SPECIMENOrdering Facility: [facility] Address: [address] [place] [address] Performed By: #### 2 4356-8, 630-4 ####[facility]ORATORYCLIA [id number] [address] Specific gravity (U) [Rel density] >1.040 High 1.005-1.030 [facility] Comment on above: Order Comment: Speci men Type: URINE SPECIMENOrdering Facility: [facility] Address: [address] [place] [address] Performed By: #### 2 4356-8, 630-4 ####[facility] LABORATORYCLIA [id number] [place], [place] [address] [place] [address] [place] Urobilinogen Ql (U) 1+ Abnormal Normal [facility] Comment on above: Order Comment: Speci men Type: URINE SPECIMENOrdering Facility: [facility] Address: [address] [place] [address] Performed By: #### 2 4356-8, 630-4 ####[facility] LABORATORYCLIA [id number] [address] [place] WBC LM.HPF (Urine sed) [#/Area] /[HPF] Abnormal 0-5 /HPF [facility] Comment on above: Order Comment: Speci men Type: URINE SPECIMENOrdering Facility: [facility] Address: [address] [place] [address] Performed By: #### 2 4356-8, 630-4 ####[facility] LABORATORYCLIA [id number] [address] Vancomycin random [Mass/Vol] on 06-14-2024 Vancomycin [Mass/Vol] 8.6 ug/mL Low 10.0-20.0 [facility] Comment on above: Order Comment: Speci men Type: BLOOD SPECIMENOrdering Facility: [facility] Address: [address] [place] [address] Result Comment: Refe rence ranges and high/low indicator flags are provided as general guidelines only. The treating physician must determine appropriate target levels/dosing based on the specific clinical situation. Performed By: #### 4 091-5 ####[facility] LABORATORYCLIA [id number] [address] [place] XR CHEST 1V FRONTALon 2024 XR CHEST 1V FRONTAL Normal [facility] XR CHEST 1V FRONTAL Normal [facility] aPTT PPPon 06-14-2024 aPTT Coag (PPP) [Time] 33.2 s High 23.0-32.4 [facility] Comment on above: Order Comment: Speci men Type: BLOOD SPECIMENOrdering Facility: [facility] Address: [address] [id number] Performed By: #### 3 4528-0, 87142-8 ####[facility] LABORATORYIA [id number] [place] [address] [place] [facility] 12 Lead EKGon 06-13-2024 12 Lead EKG [facility] Cardiovascular Services [address] [place] [address] 12 Lead EKG 06/13/24 1710 MR#: [id number] Acct: [id number] Name: KENYATTA CARRILLO Rep #: [id number] : 1960 63 From: Jesus Berger MD [...] ECG Confirmed by JESUS BERGER MD ([id number]), online editor FATMATA CONRAD ([id number]) on 06/16/2024 7:05:03 AM Referred By: Confirmed By: JESUS BERGER MD 06/16/24 0705 Date Jesus Berger MD CC: AIR ANALYST-C Dion Mora; Dr. Jose Rodriguez MD; Dr. Naye Sheets MD Signed Normal [facility] Abdomen Single View (Portabl e)on 06-13-2024 Abdomen Single View (Portable) [facility] Imaging Services [address] [place] [address] Abdomen Single View (Portable) MR#: [id number] Acct: [id number] Name: KENYATTA CARRILLO Rep #: [id number] : 1960 F 63 From: Trevor Hernandez MD PCP: Dr. Naye Sheets MD Status: REG ER Study: Abdomen Single View (Portable) Date of Exam: 0 06/13/24 Exam# [id number] Ordering Dr: Jose Rodriguez MD PROCEDURE: ABDOMEN SINGLE VIEW (PORTABLE) REASON FOR EXAM: Enteric tube TECHNIQUE: Single view abdomen. COMPARISON: None FINDINGS: Nonspecific nonobstructive bowel gas pattern. Enteric tube courses below the left hemidiaphragm coursing to the slight right side of the hemiabdomen suggesting placement within the proximal small bowel. No free air. RAD/Abdomen Single View (Portable) IMPRESSION: As above. [facility] CC: Dr. Jose Rodriguez MD; Dr. Naye Sheets MD Counselor/Art Therapist: Signed Normal [facility] Absolute neutrophil countOrd ered By: Dion Mora on 06-13-2024 Neutrophils (Bld) [#/Vol] 8.2 10*3/uL High 2.0-7.7 [facility] Activated partial thrombopla stin time (aPTT) in platelet poor plasma by coagulation aOrdered By: Dion Mora on 06-13-2024 aPTT Coag (Bld) [Time] 51.7 s High 24.1-36.2 [facility] Comment on above: Performed By: #### L 300.4310, L501.4020, M200.1000, L100.0100, L500.4050, L503.6005, L300.3900, L501.3620 ####[facility] [address] [place], [address] Albumin to globulin ratioOrd ered By: Dion Mora on 06-13-2024 Albumin/Globulin [Mass ratio] 0.4 {ratio} Low 0.9-2.4 [facility] Alcohol, Blood (Medical)-Ser umon 06-13-2024 SERUM ETOH < 3.0 Normal [facility] Comment on above: Result Comment: The serum:whole blood ethanol ratio is approximately 1.14 and varies slightly with hematocrit. Medical Alcohol reference interval and critical value in non-tolerant individuals; 50 - 100 Impairment 100 Intoxication 100 - 250 Severe Poisoning 250 - 400 Deep/possible fatal coma Performed By: #### L 503.5510, L503.6005 #### [facility] [address] [place] [place], [address] Ammoniaon 06-13-2024 Ammonia (P) [Mass/Vol] ug/dL Low [facility] Comment on above: Performed By: #### L 503.5510, L503.6005 #### [facility] [address] [place], [address] Arterial patency Wrist arter y --pre arterial punctureOrdered By: Jose Rodriguez on 06-13-2024 Malena Test Positive [facility] BRCon 06-13-2024 RC Normal [facility] Comment on above: Result Comment: [id number] ON RC TRANSFUSED 06/13/242055 [id number] OP RC TRANSFUSED 06/13/242320 Performed By: #### B RC ####[facility] [address] [place], [place], [id number] Result Comment: [id number] OP RC TRANSFUSED 06/13/24 2209 Performed By: #### L 503.5510, [id number] #### [facility] [address] [place], [place], [id number] Base excess Calc (BldV) [Mol es/Vol]Ordered By: Jose Rodriguez on 06-13-2024 Blood Gas Base Excess -27 mmol/L Low -2-2 [facility] Basophil percentageOrdered B y: Dion Mora on 06-13-2024 Basophils/100 WBC (Bld) 0.2 % 0-1 [facility] Bilirubin Test strip Ql (U)O rdered By: Dion Mora on 06-13-2024 Bilirubin Ql (U) 6 mg/dL High Negative [facility] Comment on above: COLOR OF URINE MAY A FFECT DIPSTICK RESULTS. Bilirubin, totalOrdered By: Dion Mora on 06-13-2024 Bilirubin [Mass/Vol] 3.10 mg/dL High 0.20-1.00 [facility] Comment on above: For patients on eltr ombopag therapy, use of Dimension [place] TBIL is not recommended. [facility] MALENA TEST Positive Normal [facility] Comment on above: Performed By: #### L 300.4310, L501.4020, M200.1000, L100.0100, L500.4050, L503.6005, L300.3900, L501.3620 #### [facility] [address] [place], [address] Base excess Calc (Bld) [Moles/Vol] -27 mmol/L Low -2 to +2 [facility] Comment on above: Performed By: #### L 300.4310, L501.4020, M200.1000, L100.0100, L500.4050, L503.6005, L300.3900, L501.3620 #### [facility] [address] [place], [address] Blood Gas Type ART Normal [facility] Comment on above: Performed By: #### L 300.4310, L501.4020, M200.1000, L100.0100, L500.4050, L503.6005, L300.3900, L501.3620 #### [facility] [address] [place], [address] CO2 [Moles/Vol] 13 mmol/L Normal [facility] Comment on above: Performed By: #### L 300.4310, L501.4020, M200.1000, L100.0100, L500.4050, L503.6005, L300.3900, L501.3620 #### [facility] [address] [place], [address] FI02 100.0 Normal [facility] Comment on above: Performed By: #### L 300.4310, L501.4020, M200.1000, L100.0100, L500.4050, L503.6005, L300.3900, L501.3620 #### [facility] [address] [place], [address] HCO3 (Bld) [Moles/Vol] 10.0 mmol/L Low 22-26 [facility] Comment on above: Performed By: #### L 300.4310, L501.4020, M200.1000, L100.0100, L500.4050, L503.6005, L300.3900, L501.3620 #### [facility] [address] [place], [address] Mode AC Normal [facility] Comment on above: Performed By: #### L 300.4310, L501.4020, M200.1000, L100.0100, L500.4050, L503.6005, L300.3900, L501.3620 #### [facility] [address] [place], [address] O2 Delivery Dev Adult Vent Normal [facility] Comment on above: Performed By: #### L 300.4310, L501.4020, M200.1000, L100.0100, L500.4050, L503.6005, L300.3900, L501.3620 #### [facility] [address] [place], [address] pCO2 86.4 mmHg Invalid Interpretation Code 35-45 [facility] Comment on above: Performed By: #### L 300.4310, L501.4020, M200.1000, L100.0100, L500.4050, L503.6005, L300.3900, L501.3620 #### [facility] [address] [place], [address] PEEP 5 Normal [facility] Comment on above: Performed By: #### L 300.4310, L501.4020, M200.1000, L100.0100, L500.4050, L503.6005, L300.3900, L501.3620 #### [facility] [address] [place], [address] pH (Bld) 6.67 [pH] Invalid Interpretation Code 7.35-7.45 [facility] Comment on above: Performed By: #### L 300.4310, L501.4020, M200.1000, L100.0100, L500.4050, L503.6005, L300.3900, L501.3620 #### [facility] [address] [place], [address] PO2 54 mmHG Low 75-100 [facility] Comment on above: Performed By: #### L 300.4310, L501.4020, M200.1000, L100.0100, L500.4050, L503.6005, L300.3900, L501.3620 #### [facility] [address] [place], [address] Read Back By Yes Normal [facility] Comment on above: Performed By: #### L 300.4310, L501.4020, M200.1000, L100.0100, L500.4050, L503.6005, L300.3900, L501.3620 #### [facility] [address] [place], [address] Results To reodica [facility] Comment on above: Performed By: #### L 300.4310, L501.4020, M200.1000, L100.0100, L500.4050, L503.6005, L300.3900, L501.3620 #### [facility] [address] [place], [address] RR 18 [facility] Comment on above: Performed By: #### L 300.4310, L501.4020, M200.1000, L100.0100, L500.4050, L503.6005, L300.3900, L501.3620 #### [facility] [address] [place], [address] SITE L Radial [facility] Comment on above: Performed By: #### L 300.4310, L501.4020, M200.1000, L100.0100, L500.4050, L503.6005, L300.3900, L501.3620 #### [facility] [address] [place], [address] SO2 45 Low 95-99 [facility] Comment on above: Performed By: #### L 300.4310, L501.4020, M200.1000, L100.0100, L500.4050, L503.6005, L300.3900, L501.3620 #### [facility] [address] [place], [address] Time Given 22:36:49 [facility] Comment on above: Performed By: #### L 300.4310, L501.4020, M200.1000, L100.0100, L500.4050, L503.6005, L300.3900, L501.3620 #### [facility] [address] [place], [address] Vt 400.0 mL [facility] Comment on above: Performed By: #### L 300.4310, L501.4020, M200.1000, L100.0100, L500.4050, L503.6005, L300.3900, L501.3620 #### [facility] [address] [place], [address] Blood bicarbonate measuremen tOrdered By: Jose Rodriguez on 06-13-2024 Blood Gas Bicarbonate Actual 10.0 mmol/L Low 22-26 [facility] Blood cultureOrdered By: Darleen Mora on 06-13-2024 Bacteria identified Cx Nom (Bld) No growth in 5 days. [facility] Blood urea nitrogen (BUN)/cr eatinine ratioOrdered By: Dion Mora on 06-13-2024 Urea nitrogen/Creatinine [Mass ratio] 8.8 mg/mg Low 10-20 [facility] Brain/Head without Contrasto n 06-13-2024 Brain/Head without Contrast [facility] Imaging Services [address], [place] [address] Brain/Head without Contrast MR#: [id number] Acct: [id number] Name: KENYATTA CARRILLO Rep #: [id number] : 1960 F 63 From: Trevor Hernandez MD PCP: Dr. Naye Sheets MD Status: REG ER Study: Brain/Head without Contrast Date of Exam: 05/16 06/07 Exam# [id number] Ordering Dr: Dion Mora AIR ANALYST-C EXAM: BRAIN/HEAD WITHOUT CONTRAST CLINICAL HISTORY: old [...] evidence of acute intracranial pathology. Reading Location: [facility] CC: AIR ANALYSTFitz Mora; Dr. Naye Sheets MD Counselor/Art Therapist: Signed Normal [facility] CBC W/Diff, Automatedon 05-16 Anisocytosis Ql (Bld) 1+ Normal [facility] Comment on above: Performed By: #### L 300.4310, L501.4020, M200.1000, L100.0100, L500.4050, L503.6005, L300.3900, L501.3620 #### [facility] [address] [place], [address] HYPOCHROMASIA 1+ Normal [facility] Comment on above: Performed By: #### L 300.4310, L501.4020, M200.1000, L100.0100, L500.4050, L503.6005, L300.3900, L501.3620 #### [facility] [address] [place], [address] PLT EST ADEQUATE Normal ADEQ [facility] Comment on above: Performed By: #### L 300.4310, L501.4020, M200.1000, L100.0100, L500.4050, L503.6005, L300.3900, L501.3620 #### [facility] [address] [place], [address] STOMATOCYTE 2+ Normal [facility] Comment on above: Performed By: #### L 300.4310, L501.4020, M200.1000, L100.0100, L500.4050, L503.6005, L300.3900, L501.3620 #### [facility] [address] [place], [address] TARGET CELLS RARE Normal [facility] Comment on above: Performed By: #### L 300.4310, L501.4020, M200.1000, L100.0100, L500.4050, L503.6005, L300.3900, L501.3620 #### [facility] [address] [place], [address] SMEAR COMMENT SCANNED [facility] Comment on above: Performed By: #### L 300.4310, L501.4020, M200.1000, L100.0100, L500.4050, L503.6005, L300.3900, L501.3620 #### [facility] [address] [place], [address] [facility] ([facility]) -------- KENYATTA CARRILLO ([id number]) 1960 F Date Time Provider Department 06/13/24 CHIDI ABAD [facility] During your visit today, we recorded the following information about you: Lorraine Bernardo II, MD 06/19/2024 12:25 AM Signed Critical Care Transport Note Patient Name: Kenyatta Carrillo Service Date: June 13, 2024 Referring Facility: [facility] Accepting Facility: [facility] SUBJECTIVE/CHIEF COMPLAINT: AMS- unable to obtain REASON [...] dependence and bipolar disorder. She presented to [facility] for evaluation of AMS and GIB. [...] physician managing the patient requested transfer to [facility] for tertiary and/or quaternary services unavailable at the referring facility. Patient condition at time of exam was: Acutely ill and critically ill. Due to the unique circumstances of the patient, it was determined that this was the closest, most appropriate facility by referring physician. The physician managing the patient requested the [facility] Critical Care Transport Team transport and treat the patient for the purpose of tertiary care, evaluation, and management of her acute condition(s). Air medical transport was requested to reduce the ybr-uw-xnkfpcyc time but declined for inclement weather. ROS: [...] Referring Facility: (more content not included)... Normal [facility] 06-13-2024 [facility] Telephone (ARNIE) -------- KENYATTA CARRILLO ([id number]) 1960 F Date Time Provider Department 06/13/24 DIANNE CABA During your visit today, we recorded the following information about you: Dianne Caba MSW 06/13/2024 11:11 AM Signed José Miguel [facility] left this message in regards to concerns about patient from home staging specialist agency [facility]. Aide noted that they called 911 [...] you feel like placing a call to [facility] could assist in getting patient to go to hospital to be checked out? Naye Sheets MD 06/13/2024 4:29 PM Signed Can we try below. See message from Dianne and Dianne Lechuga, [employer] 06/13/2024 4:41 PM Signed Sw spoke with [facility] and was told patient has been pink slipped and is at [facility]. Naye Sheets MD 06/13/2024 5:12 PM Signed [...] sites [N (more content not included)... Normal [facility] CPK Total, Creatine Kinaseon 06-13-2024 CPK TOTAL 80 U/L Normal 26-192 [facility] Comment on above: Order Comment: 'TROP ' Serial specimen #1, #2 or #3: 1 Performed By: #### L 300.4310, L501.4020, M200.1000, L100.0100, L500.4050, L503.6005, L300.3900, L501.3620 #### [facility] [address] [place], [address] CT Chest, Abd, Pel w/Contras ton 06-13-2024 CT Chest, Abd, Pel w/Contrast [facility] Imaging Services [address] [place] [address] CT Chest, Abd, Pel w/Contrast MR#: [id number] Acct: [id number] Name: KENYATTA CARRILLO Rep #: [id number] : 1960 F 63 From: Trevor Hernandez MD PCP: Dr. Naye Sheets MD Status: REG ER Study: CT Chest, Abd, Pel w/Contrast Date of Exam: Exam# [id number] Ordering Dr: Dion Mora AIR ANALYST-C PROCEDURE: CT CHEST, ABD, PEL W/CONTRAST REASON [...] use of iterative reconstruction technique). Reading Location: [facility] CC: BENI Mora; Dr. Naye Sheets MD Counselor/Art Therapist: Signed Normal [facility] Carbon dioxide measurementOr dered By: Dion Mora on 06-13-2024 CO2 [Moles/Vol] 31.0 mmol/L 21.0-32.0 [facility] Chest 1 View (Portable)on Chest 1 View (Portable) [facility] Imaging Services [address] [place] [id number] Chest 1 View (Portable) MR#: [id number] Acct: [id number] Name: KENYATTA CARRILLO Rep #: [id number] : 1960 F 63 From: Trevor Hernandez MD PCP: Dr. Naye Sheets MD Status: REG ER Study: Chest 1 View (Portable) Date of Exam: 06/13/24 Exam# [id number] Ordering Dr: Jose Rodriguez MD PROCEDURE: CHEST [...] View (Portable) IMPRESSION: As above. Reading Location: [facility] CC: Dr. Jose Rodriguez MD; Dr. Naye Sheets MD Counselor/Art Therapist: Signed Normal [facility] Chloride measurementOrdered By: Dion Mora on 06-13-2024 Chloride [Moles/Vol] 85 mmol/L Low 98-107 [facility] Comprehensive Metabolic Prof ilon 06-13-2024 Albumin [Mass/Vol] 1.6 g/dL Low 3.2-5.[address] [facility] Comment on above: Order Comment: 'TROP ' Serial specimen #1, #2 or #3: 1 Performed By: #### L 300.4310, L501.4020, M200.1000, L100.0100, L500.4050, L503.6005, L300.3900, L501.3620 #### [facility] [address] [place], [address] Albumin/Globulin [Mass ratio] 0.4 {ratio} Low 0.9-2.4 [facility] Comment on above: Order Comment: 'TROP ' Serial specimen #1, #2 or #3: 1 Performed By: #### L 300.4310, L501.4020, M200.1000, L100.0100, L500.4050, L503.6005, L300.3900, L501.3620 #### [facility] [address] [place], [address] ALK P 328 U/L High 45-117 [facility] Comment on above: Order Comment: 'TROP ' Serial specimen #1, #2 or #3: 1 Performed By: #### L 300.4310, L501.4020, M200.1000, L100.0100, L500.4050, L503.6005, L300.3900, L501.3620 #### [facility] [address] [place], [address] ALT [Catalytic activity/Vol] 26 U/L Normal 13-56 [facility] Comment on above: Order Comment: 'TROP ' Serial specimen #1, #2 or #3: 1 Performed By: #### L 300.4310, L501.4020, M200.1000, L100.0100, L500.4050, L503.6005, L300.3900, L501.3620 #### [facility] [address] [place], [address] AST [Catalytic activity/Vol] 85 U/L High 15-37 [facility] Comment on above: Order Comment: 'TROP ' Serial specimen #1, #2 or #3: 1 Performed By: #### L 300.4310, L501.4020, M200.1000, L100.0100, L500.4050, L503.6005, L300.3900, L501.3620 #### [facility] [address] [place], [address] Bilirubin [Mass/Vol] 3.10 mg/dL High 0.20-1.00 [facility] Comment on above: Order Comment: 'TROP ' Serial specimen #1, #2 or #3: 1 Result Comment: For patients on eltrombopag therapy, use of Dimension [place] TBIL is not recommended. Performed By: #### L 300.4310, L501.4020, M200.1000, L100.0100, L500.4050, L503.6005, L300.3900, L501.3620 #### [facility] [address] [place], [address] BUN/CRE 8.8 RATIO Low 10-20 [facility] Comment on above: Order Comment: 'TROP ' Serial specimen #1, #2 or #3: 1 Performed By: #### L 300.4310, L501.4020, M200.1000, L100.0100, L500.4050, L503.6005, L300.3900, L501.3620 #### [facility] [address] [place], [address] CA,Total 9.8 mg/dL Normal 8.5-10.1 [facility] Comment on above: Order Comment: 'TROP ' Serial specimen #1, #2 or #3: 1 Performed By: #### L 300.4310, L501.4020, M200.1000, L100.0100, L500.4050, L503.6005, L300.3900, L501.3620 #### [facility] [address] [place], [address] Chloride [Moles/Vol] 85 mmol/L Low 98-107 [facility] Comment on above: Order Comment: 'TROP ' Serial specimen #1, #2 or #3: 1 Performed By: #### L 300.4310, L501.4020, M200.1000, L100.0100, L500.4050, L503.6005, L300.3900, L501.3620 #### [facility] [address] [place], [address] CO2 [Moles/Vol] 31.0 mmol/L Normal 21.0-32.0 [facility] Comment on above: Order Comment: 'TROP ' Serial specimen #1, #2 or #3: 1 Performed By: #### L 300.4310, L501.4020, M200.1000, L100.0100, L500.4050, L503.6005, L300.3900, L501.3620 #### [facility] [address] [place], [address] Creatinine [Mass/Vol] 2.73 mg/dL High 0.55-1.02 [facility] Comment on above: Order Comment: 'TROP ' Serial specimen #1, #2 or #3: 1 Result Comment: The validity of the calculated GFR GFRAA in patients over 70 years has not been determined. Clinical correlation is essential. Performed By: #### L 300.4310, L501.4020, M200.1000, L100.0100, L500.4050, L503.6005, L300.3900, L501.3620 #### [facility] [address] [place], [address] ECRCL 23.71 ml/min Normal [facility] Comment on above: Order Comment: 'TROP ' Serial specimen #1, #2 or #3: 1 Performed By: #### L 300.4310, L501.4020, M200.1000, L100.0100, L500.4050, L503.6005, L300.3900, L501.3620 #### [facility] [address] [place], [address] EST GFR - AA 22 mL/min Low >60 [facility] Comment on above: Order Comment: 'TROP ' Serial specimen #1, #2 or #3: 1 Result Comment: Afri can Tajik GFR Calc Performed By: #### L 300.4310, L501.4020, M200.1000, L100.0100, L500.4050, L503.6005, L300.3900, L501.3620 #### [facility] [address] [place], [address] GAP 17 High 5-15 [facility] Comment on above: Order Comment: 'TROP ' Serial specimen #1, #2 or #3: 1 Performed By: #### L 300.4310, L501.4020, M200.1000, L100.0100, L500.4050, L503.6005, L300.3900, L501.3620 #### [facility] [address] [place], [address] GFR/1.73 sq M.predicted among non-blacks MDRD (S/P/Bld) [Vol rate/Area] 19 mL/min/{1.73_m2} Low >60 [facility] Comment on above: Order Comment: 'TROP ' Serial specimen #1, #2 or #3: 1 Result Comment: Non- GFR Calc Performed By: #### L 300.4310, L501.4020, M200.1000, L100.0100, L500.4050, L503.6005, L300.3900, L501.3620 #### [facility] [address] [place], [address] Globulin (S) [Mass/Vol] 3.8 g/dL Normal 2.2-4.2 [facility] Comment on above: Order Comment: 'TROP ' Serial specimen #1, #2 or #3: 1 Performed By: #### L 300.4310, L501.4020, M200.1000, L100.0100, L500.4050, L503.6005, L300.3900, L501.3620 #### [facility] [address] [place], [address] Glucose [Mass/Vol] 97 mg/dL Normal 74-[address] [facility] Comment on above: Order Comment: 'TROP ' Serial specimen #1, #2 or #3: 1 Performed By: #### L 300.4310, L501.4020, M200.1000, L100.0100, L500.4050, L503.6005, L300.3900, L501.3620 #### [facility] [address] [place], [address] Potassium [Moles/Vol] 2.4 mmol/L Invalid Interpretation Code 3.5-5.1 [facility] Comment on above: Order Comment: 'TROP ' Serial specimen #1, #2 or #3: 1 Result Comment: Beatriz ical Result(s) Called at: 17:10:56 06/13/2024 by: Antoinette Mejia to Singh. Results read back by same. Performed By: #### L 300.4310, L501.4020, M200.1000, L100.0100, L500.4050, L503.6005, L300.3900, L501.3620 #### [facility] [address] [place], [address] Sodium [Moles/Vol] 133 mmol/L Low 136-[address] [facility] Comment on above: Order Comment: 'TROP ' Serial specimen #1, #2 or #3: 1 Performed By: #### L 300.4310, L501.4020, M200.1000, L100.0100, L500.4050, L503.6005, L300.3900, L501.3620 #### [facility] [address] [place], [place], [id number] (686) T PROT 5.4 g/dL Low 6.4-8.2 [facility] Comment on above: Order Comment: 'TROP ' Serial specimen #1, #2 or #3: 1 Performed By: #### L 300.4310, L501.4020, M200.1000, L100.0100, L500.4050, L503.6005, L300.3900, L501.3620 #### [facility] [address] [place], [address] Urea nitrogen [Mass/Vol] 24 mg/dL High 7-18 [facility] Comment on above: Order Comment: 'TROP ' Serial specimen #1, #2 or #3: 1 Performed By: #### L 300.4310, L501.4020, M200.1000, L100.0100, L500.4050, L503.6005, L300.3900, L501.3620 #### [facility] [address] [place], [address] Determination of fraction of inspired oxygenOrdered By: Jose Rodriguez on 06-13-2024 Blood Gas Oxygen Percent 100.0 [facility] Emergency Department Summary on 06-13-2024 Emergency Department Summary [facility] Medical Records Department [address] [place] [address] Emergency Department Summary 06/13/24 MR#: [id number] Acct: [id number] Name: KENYATTA CARRILLO Rep #: [id number] : 1960 63 From: Jose Rodriguez MD [...] 06/14/24 003 Cosigner Signature (if applicable): 06/13/24 214 cc: Dr. Naye Sheets MD * Signed [...] couple days. Denies any fever or chills. [facility] Medical History Alcohol abuse Anemia Bipolar disorder [...] nurse chap (more content not included)... Normal [facility] Eosinophil percentageOrdered By: Dion Mora on 06-13-2024 Eosinophils/100 WBC (Bld) 0.8 % 0-5 [facility] Epithelial cells.squamous LM Ql (Urine sed)Ordered By: Dion Mora on 06-13-2024 Epithelial cells.squamous LM.HPF (Urine sed) [#/Area] 0 /[HPF] 5-10 [facility] Erythrocyte distribution wid th (RBC) [Ratio]Ordered By: Dion Mora on 06-13-2024 Erythrocyte distribution width (RBC) [Entitic vol] 74.2 fL High 35.1-43.9 [facility] Erythrocyte distribution wid th ratioOrdered By: Dion Mora on 06-13-2024 Erythrocyte distribution width (RBC) [Ratio] 20.9 % High 11.6-14.6 [facility] Estimated glomerular filtrat ion rate (GFR) AmericanOrdered By: Dion Mora on 06-13-2024 Estimated GFR (MDRD) Amer 22 mL/min Low >60 [facility] Comment on above: GFR Calc Estimation of creatinine dilcia aranceOrdered By: Dion Mora on 06-13-2024 Estimated Creatinine Clearance Calc 23.71 ml/min [facility] Glomerular filtration rate ( GFR) estimationOrdered By: Dion Mora on 06-13-2024 Estimated GFR (MDRD) Non-Af Amer 19 mL/min Low >60 [facility] Comment on above: Non- GFR Calc Glucose Ql (U)Ordered By: Cristiano Mora on 06-13-2024 Urine Glucose (UA) Normal mg/dl Normal [facility] Glucose measurementOrdered B y: Dion Mora on 06-13-2024 Glucose [Mass/Vol] 97 mg/dL 74-[address] [facility] HH, Hemoglobin AND Hematocri ton 06-13-2024 Hematocrit (Bld) [Volume fraction] 22.3 % Low 37-47 [facility] Comment on above: Performed By: #### L 300.4310, L501.4020, M200.1000, L100.0100, L500.4050, L503.6005, L300.3900, L501.3620 #### [facility] [address] [place], [address] (336) Hemoglobin (Bld) [Mass/Vol] 6.8 g/dL Low 12.0-15.0 [facility] Comment on above: Performed By: #### L 300.4310, L501.4020, M200.1000, L100.0100, L500.4050, L503.6005, L300.3900, L501.3620 #### [facility] [address] [place], [address] (236) Hematocrit Auto (Bld) [Volum e fraction]Ordered By: Dion Mora on 06-13-2024 Hematocrit (Bld) [Volume fraction] 22.3 % Low 37-47 [facility] Hemoglobin measurementOrdere d By: Dion Mora on 06-13-2024 Hemoglobin (Bld) [Mass/Vol] 6.8 g/dL Low 12.0-15.0 [facility] Hypochromia Ql (Bld)Ordered By: Dion Mora on 06-13-2024 Hypochromasia 1+ [facility] Immature granulocytes/100 WB C Auto (Bld)Ordered By: Dion Mora on 06-13-2024 Immature granulocytes/100 WBC (Bld) 0.500 % 0.0-0.9 [facility] Comment on above: IG% - Immature Granu locytes (promyelocytes, myelocytes and metamyelocytes) > 1% indicates that a LEFT SHIFT is Present. Influenza virus A and B and SARS-CoV-2 (COVID-19) and Respiratory syncytial virus RNAOrdered By: Dion Mora on 06-13-2024 SARS-CoV-2 (COVID-19) RNA TONIO+probe Ql (Unsp spec) [facility] International normalized rat io (INR) calculationOrdered By: Dion Mora on 06-13-2024 INR Coag (Bld) [Relative time] 5.0 {INR} High [facility] Comment on above: RESULTS CALLED TO Lyndsey HERNANDEZ 06/13/24 1722 Barbara Campos.REPORT READ BACK BY . SAME Ketones Test strip Ql (U)Ord ered By: Dion Mora on 06-13-2024 Ketones Ql (U) 5 mg/dl High Negative [facility] L501.4020on 06-13-2024 TROPONIN-I HS 33 pg/mL Normal 3.0-54.0 [facility] Comment on above: Order Comment: 'TROP ' Serial specimen #1, #2 or #3: 1 Result Comment: Saroj jimenez Note: New Test Units and Gender Specific Reference Ranges. For more information see Policy Stat Procedure [place] High Sensitivity Troponin (TNIH) and attachments. Performed By: #### L 300.4310, L501.4020, M200.1000, L100.0100, L500.4050, L503.6005, L300.3900, L501.3620 #### [facility] [address] [place], [address] Laboratory - Chemistry and C hemistry - challengeOrdered By: Dion Mora on 06-13-2024 AST [Catalytic activity/Vol] 85 U/L High 15-37 [facility] - Hematology and Cell countsOrdered By: Dion Mora on 06-13-2024 Anisocytosis Ql (Bld) 1+ [facility] Lactic Acidon 06-13-2024 Lactate [Moles/Vol] 8.6 mmol/L Invalid Interpretation Code 0.4-1.9 [facility] Comment on above: Order Comment: Y Result Comment: Crit ical Result(s) Called at: 20:47:30 06/13/2024 by: Antoinette Mejia to Dion Mora. Results read back by same. Performed By: #### L 503.5510, L503.6005 #### [facility] [address] [place], [place], [id number] Lactate [Moles/Vol] 8.6 mmol/L Invalid Interpretation Code 0.4-1.9 [facility] Comment on above: Order Comment: Y Result Comment: Crit ical Result(s) Called at: 18:22:50 06/13/2024 by: Antoinette Mejia to [facility]. Results read back by same. Performed By: #### L 300.4310, L501.4020, M200.1000, L100.0100, L500.4050, L503.6005, L300.3900, L501.3620 ####[facility] [address] [place], [place], [id number] Lactic acid measurementOrder ed By: Dion Mora on 06-13-2024 Lactate [Moles/Vol] 8.6 mmol/L High 0.4-2.0 [facility] Comment on above: Critical Result(s) C alled at: 20:47:30 06/13/2024 by: Antoinette Mejia to Dion Mora. Results read back by same. Lower GI hemoglobin IA Ql (S tl)Ordered By: Dion Mora on 06-13-2024 Stool Occult Blood (NOAH) [facility] Lymphocytes Auto (Unsp spec) [#/Vol]Ordered By: Dion Mora on 06-13-2024 Lymphocytes (Bld) [#/Vol] 2.46 10*3/uL 0.83-4.51 [facility] Lymphocytes/100 WBC Auto (Un sp spec)Ordered By: Dion Mora on 06-13-2024 Lymphocytes/100 WBC (Bld) 20.9 % 19-41 [facility] M100.678on 06-13-2024 M100.678 Pending SARS-CoV-2 (COVID 19) Negative INFLUENZA A Negative INFLUENZA B Negative RSV PCR Negative Normal [facility] Comment on above: Performed By: #### L 300.4310, L501.4020, M200.1000, L100.0100, L500.4050, L503.6005, L300.3900, L501.3620 #### [facility] [address] [place], [address] MCV (mean corpuscular volume ) determinationOrdered By: Dion Mora on 06-13-2024 MCV (RBC) [Entitic vol] 97.4 fL 81-99 [facility] Magnesiumon 06-13-2024 Magnesium [Mass/Vol] 0.9 mg/dL Invalid Interpretation Code 1.6-2.6 [facility] Comment on above: Result Comment: Crit ical Result(s) Called at: 19:00:03 06/13/2024 by: Antoinette Mejia to Singh. Results read back by same. Performed By: #### L 503.5510, L503.6005 #### [facility] [address] [place], [address] Magnesium measurementOrdered By: Dion Mora on 06-13-2024 Magnesium [Mass/Vol] 0.9 mg/dL Low 1.6-2.6 [facility] Comment on above: Critical Result(s) C alled at: 19:00:03 06/13/2024 by: Antoinette Winters. Results read back by same. Manual differential comment Tate (Bld) [Interp]Ordered By: Dion Mora on 06-13-2024 Differential Comment SCANNED [facility] Mean corpuscular hemoglobin (MCH) determinationOrdered By: Dion Mora on 06-13-2024 MCH (RBC) [Entitic mass] 29.5 pg 27.0-32.0 [facility] Mean corpuscular hemoglobin concentration (MCHC) determinationOrdered By: Dion Mora on 06-13-2024 MCHC (RBC) [Mass/Vol] 30.3 g/dL Low 32-36 [facility] Mean platelet volume determi nationOrdered By: Dion Mora on 06-13-2024 Platelet mean volume (Bld) [Entitic vol] 10.6 fL 6.2-12.0 [facility] Methadone, urineOrdered By: Dion Mora on 06-13-2024 Urine Methadone Screen Negative < 300 ng/mL [facility] Microscopic analysis of urin e for red blood cells (RBC)Ordered By: Dion Mora on 06-13-2024 Urine RBC 0-5 SEEN /hpf 0-5 [facility] Monocyte percentageOrdered B y: Dion Mora on 06-13-2024 Monocytes/100 WBC (Bld) 8.2 % 0-10 [facility] Mucus LM Ql (Urine sed)Order ed By: Dion Mora on 06-13-2024 Mucus Ql (Urine sed) 0 SEEN /hpf [facility] Neutrophil percentageOrdered By: Dion Mora on 06-13-2024 Neutrophils/100 WBC (Bld) 69.4 % 47-70 [facility] Nitrite Test strip Ql (U)Ord ered By: Dion Mora on 06-13-2024 Nitrite Ql (U) Positive High Negative [facility] No Panel InformationOrdered By: Jose Rodriguez on 06-13-2024 Bedside Blood Gas PEEP 5 [facility] Bld Gas Crit Called To/Read Back By Yes [facility] Blood Gas Notified Time 22:36:49 [facility] Blood Gas Notified Conrad rodriguez [facility] Blood Gas Respiration Rate 18 [facility] Blood Gas Sample Site L Radial [facility] Blood Gas Specimen Type ART [facility] Blood Gas Tidal Volume 400.0 mL [facility] Blood Gas Vent Mode AC [facility] Oxygen Delivery Device Adult Vent [facility] No Panel InformationOrdered By: Dion Mora on 06-13-2024 Urine Drug Screen Comment [facility] Comment on above: CONFIRMATORY TESTING FOR ALL [...] RBC/100 WBC (Bld) [Ratio] 0.6 % 0-5 [facility] Oxygen saturation measuremen tOrdered By: Jose Rodriguez on 06-13-2024 Blood Gas Oxygen Saturation 45 % Low 95-99 [facility] Partial pressure of carbon d ioxide measurementOrdered By: Jose Rodriguez on 06-13-2024 Arterial Blood Partial Pressure CO2 86.4 mmHg High 35-45 [facility] Partial pressure of oxygen m easurementOrdered By: Jose Rodriguez on 06-13-2024 Arterial Blood Partial Pressure O2 54 mmHG Low 75-100 [facility] Platelet countOrdered By: Cristiano ul Isha on 06-13-2024 Platelets (Bld) [#/Vol] 147 10*3/uL Low 150-450 [facility] Platelets LM Ql (Bld)Ordered By: Dion Mora on 06-13-2024 Platelet Estimate ADEQUATE ADEQ [facility] Potassium measurementOrdered By: Dion Mora on 06-13-2024 Potassium [Moles/Vol] 2.4 mmol/L Low 3.5-5.1 [facility] Comment on above: Critical Result(s) C alled at: 17:10:56 06/13/2024 by: Antoinette Winters. Results read back by same. Protein Test strip Ql (U)Ord ered By: Dion Mora on 06-13-2024 Protein Ql (U) 30 mg/dl High Negative [facility] Prothrombin Time w/INRon INR Coag (PPP) [Relative time] 5.0 {INR} Invalid Interpretation Code [facility] Comment on above: Result Comment: RESU LTS CALLED TO GUNJAN 06/13/24 1722 Barbara Campos. REPORT READ BACK BY . SAME Performed By: #### L 300.4310, L501.4020, M200.1000, L100.0100, L500.4050, L503.6005, L300.3900, L501.3620 #### [facility] [address] [place], [place], [id number] (288) PT Coag (PPP) [Time] 47.5 s High 11.7-14.9 [facility] Comment on above: Performed By: #### L 300.4310, L501.4020, M200.1000, L100.0100, L500.4050, L503.6005, L300.3900, L501.3620 #### [facility] [address] [place], [place], [id number] Prothrombin timeOrdered By: Dion Mora on 06-13-2024 PT Coag (PPP) [Time] 47.5 s High 11.7-14.9 [facility] Quantitative urine opiates m easurementOrdered By: Dion Mora on 06-13-2024 Opiates Ql (U) Negative < 300 ng/mL [facility] RBC Auto (Bld) [#/Vol]Ordere d By: Dion Mora on 06-13-2024 RBC (Bld) [#/Vol] 2.71 10*6/uL Low 4.2-5.4 [facility] Serum anion gap measurementO rdered By: Dion Mora on 06-13-2024 Anion gap [Moles/Vol] 17 mmol/L High 5-15 [facility] Serum ethanol measurementOrd ered By: Dion Mora on 06-13-2024 Ethyl Alcohol Level < 3.0 mg/dL [facility] Comment on above: The serum:whole bloo d ethanol ratio is approximately 1.14and varies slightly with hematocrit. Medical Alcohol reference interval and critical value innon-tolerant individuals; 50 - 100 Impairment 100 Intoxication 100 - 250 Severe Poisoning 250 - 400 Deep/possible fatal coma Serum globulin measurementOr dered By: Dion Mora on 06-13-2024 Globulin (S) [Mass/Vol] 3.8 g/dL 2.2-4.2 [facility] Serum or plasma alanine araiza otransferase (ALT) measurementOrdered By: Dion Mora on 06-13-2024 ALT [Catalytic activity/Vol] 26 U/L 13-56 [facility] Serum or plasma albumin abida urement (mass/volume)Ordered By: Dion Mora on 06-13-2024 Albumin [Mass/Vol] 1.6 g/dL Low 3.2-5.[address] [facility] Serum or plasma alkaline desi sphatase measurementOrdered By: Dion Mora on 06-13-2024 ALP [Catalytic activity/Vol] 328 U/L High 45-117 [facility] Serum or plasma calcium abida urement (mass/volume)Ordered By: Dion Mora on 06-13-2024 Calcium [Mass/Vol] 9.8 mg/dL 8.5-10.[address] [facility] Serum or plasma creatinine m easurement (mass/volume)Ordered By: Dion Mora on 06-13-2024 Creatinine [Mass/Vol] 2.73 mg/dL High 0.55-1.02 [facility] Comment on above: The validity of the calculated GFR & GFRAA in patients over 70 years has not been determined. Clinical correlation is essential. Serum or plasma urea nitroge n measurement (mass/volume)Ordered By: Dion Mora on 06-13-2024 Urea nitrogen [Mass/Vol] 24 mg/dL High 7-18 [facility] Sodium levelOrdered By: Dion Mora on 06-13-2024 Sodium [Moles/Vol] 133 mmol/L Low 136-[address] [facility] Stomatocytes LM Ql (Bld)Orde red By: Dion Mora on 06-13-2024 Stomatocytes 2+ [facility] Stool Occult Blood iFOBon STOB Negative Normal [facility] Comment on above: Performed By: #### L 503.5510, L503.6005 #### [facility] [place], [address] Target cells LM Ql (Bld)Orde red By: Dion Mora on 06-13-2024 Target Cells RARE [facility] Total carbon dioxide measure mentOrdered By: Jose Rodriguez on 06-13-2024 Blood Gas Total CO2 13 mmol/L [facility] Total creatine kinase measur ementOrdered By: Dion Mora on 06-13-2024 CK [Catalytic activity/Vol] 80 U/L 26-192 [facility] Total proteinOrdered By: Darleen Mora on 06-13-2024 Protein [Mass/Vol] 5.4 g/dL Low 6.4-8.[address] [facility] Troponin IOrdered By: Dion moreno on 06-13-2024 Troponin I High Sensitivity 33 pg/mL 3.0-54.0 [facility] Comment on above: Please Note: New Franci t Units and Gender Specific Reference Ranges. For more information see Policy Stat Procedure [place] High Sensitivity Troponin (TNIH) and attachments. Type AND Screenon 06-13-2024 Ab SCREEN GEL Negative Normal [facility] Comment on above: Order Comment: NWMACEY BARRAZAA Performed By: #### L 503.5510, L503.6005 #### [facility] [address] [place], [place], [id number] A1 CELL Not performed [facility] Comment on above: Order Comment: HGI Result Comment: This specimen has been REJECTED due to Laboratory criteria: MisLabelled. ZAKIYA FREEDMAN has been notified of need of recollection. 06/13/242047 Genna Lollo Performed By: #### L 503.5510, L503.6005 #### [facility] [address] [place], [address] Ab SCREEN GEL Not performed Normal [facility] Comment on above: Order Comment: HGI Result Comment: This specimen has been REJECTED due to Laboratory criteria: MisLabelled. ZAKIYA FREEDMAN has been notified of need of recollection. 06/13/242047 Genna Lollo Performed By: #### L 503.5510, L503.6005 #### [facility] [address] [place], [address] ABO and Rh group Nom (Bld) Test Not Performed Normal [facility] Comment on above: Order Comment: HGI Result Comment: This specimen has been REJECTED due to Laboratory criteria: MisLabelled. ZAKIYA FREEDMAN has been notified of need of recollection. 06/13/242047 Genna Lollo Performed By: #### L 503.5510, L503.6005 #### [facility] [address] [place], [address] ANTI A Not performed Normal [facility] Comment on above: Order Comment: HGI Result Comment: This specimen has been REJECTED due to Laboratory criteria: MisLabelled. ZAKIYA FREEDMAN has been notified of need of recollection. 06/13/242047 Genna Lollo Performed By: #### L 503.5510, L503.6005 #### [facility] [address] [place], [address] ANTI B Not performed Normal [facility] Comment on above: Order Comment: HGI Result Comment: This specimen has been REJECTED due to Laboratory criteria: MisLabelled. ZAKIYA FREEDMAN has been notified of need of recollection. 06/13/242047 Genna Lollo Performed By: #### L 503.5510, L503.6005 #### [facility] [address] [place], [address] ANTI D Not performed Normal [facility] Comment on above: Order Comment: HGI Result Comment: This specimen has been REJECTED due to Laboratory criteria: MisLabelled. ZAKIYA FREEDMAN has been notified of need of recollection. 06/13/242047 Genna Lollo Performed By: #### L 503.5510, L503.6005 #### [facility] [address] [place], [address] B CELLS Not performed Normal [facility] Comment on above: Order Comment: HGI Result Comment: This specimen has been REJECTED due to Laboratory criteria: MisLabelled. ZAKIYA FREEDMAN has been notified of need of recollection. 06/13/242047 Genna Liang Performed By: #### L 503.5510, L503.6005 #### [facility] [address] [place], [address] Urinalysis, Completeon 06-13 BACTERIA 2+ /hpf Normal None Seen [facility] Comment on above: Order Comment: 'TROP ' Serial specimen #1, #2 or #3: 1 Performed By: #### L 300.4310, L501.4020, M200.1000, L100.0100, L500.4050, L503.6005, L300.3900, L501.3620 #### [facility] [address] [place], [address] RBC 0-5 SEEN Normal 0-5 [facility] Comment on above: Order Comment: 'TROP ' Serial specimen #1, #2 or #3: 1 Performed By: #### L 300.4310, L501.4020, M200.1000, L100.0100, L500.4050, L503.6005, L300.3900, L501.3620 #### [facility] [address] [place], [address] WBC 5-10 SEEN Normal 0-5 [facility] Comment on above: Order Comment: 'TROP ' Serial specimen #1, #2 or #3: 1 Performed By: #### L 300.4310, L501.4020, M200.1000, L100.0100, L500.4050, L503.6005, L300.3900, L501.3620 #### [facility] [address] [place], [address] EPI,SQUAMOUS 0 SEEN Normal 5-10 [facility] Comment on above: Order Comment: 'TROP ' Serial specimen #1, #2 or #3: 1 Performed By: #### L 300.4310, L501.4020, M200.1000, L100.0100, L500.4050, L503.6005, L300.3900, L501.3620 #### [facility] [address] [place], [address] Mucus Ql (Urine sed) 0 SEEN Normal [facility] Comment on above: Order Comment: 'TROP ' Serial specimen #1, #2 or #3: 1 Performed By: #### L 300.4310, L501.4020, M200.1000, L100.0100, L500.4050, L503.6005, L300.3900, L501.3620 #### [facility] [address] [place], [address] Urine Drug Screen (VISTA)on 06-13-2024 AMPHETAMINES Negative Normal <1000 ng/mL [facility] Comment on above: Performed By: #### L 503.5510, L503.6005 #### [facility] [address] [place], [address] BARBITIURATES Negative Normal < 200 ng/mL [facility] Comment on above: Performed By: #### L 503.5510, L503.6005 #### [facility] [address] [place], [address] BENZODIAZIPINE Negative Normal < 200 ng/mL [facility] Comment on above: Performed By: #### L 503.5510, L503.6005 #### [facility] [address] [place], [address] COCAINE Negative Normal < 300 ng/mL [facility] Comment on above: Performed By: #### L 503.5510, L503.6005 #### [facility] [address] [place], [address] ECSTACY Negative Normal < 500 ng/mL [facility] Comment on above: Performed By: #### L 503.5510, L503.6005 #### [facility] [address] [place], [address] METHADONE Negative Normal < 300 ng/mL [facility] Comment on above: Performed By: #### L 503.5510, L503.6005 #### [facility] [address] [place], [address] OPIATES Negative Normal < 300 ng/mL [facility] Comment on above: Performed By: #### L 503.5510, L503.6005 #### [facility] [address] [place], [address] PCP Negative Normal < 25 ng/mL [facility] Comment on above: Performed By: #### L 503.5510, L503.6005 #### [facility] [address] [place], [address] THC Negative Normal < 50 ng/mL [facility] Comment on above: Performed By: #### L 503.5510, L503.6005 #### [facility] [address] [place], [address] VISTA UDS PH 5 Normal [facility] Comment on above: Performed By: #### L 503.5510, L503.6005 #### [facility] [address] [place], [address] Urine amphetamine measuremen tOrdered By: Dion Mora on 06-13-2024 Amphetamines Ql (U) Negative <1000 ng/mL [facility] Urine barbiturates measureme ntOrdered By: Dion Mora on 06-13-2024 Urine Barbiturates Screen Negative < 200 ng/mL [facility] Urine benzodiazepine levelOr dered By: Dion Mora on 06-13-2024 Benzodiazepines Ql (U) Negative < 200 ng/mL [facility] Urine blood detectionOrdered By: Dion Mora on 06-13-2024 Urine Occult Blood 10 /ul High Negative [facility] Urine clarityOrdered By: Darleen Mora on 06-13-2024 Clarity (U) Sl. Cloudy Clear [facility] Urine cocaine levelOrdered B y: Dion Mora on 06-13-2024 Cocaine Ql (U) Negative < 300 ng/mL [facility] Urine color determinationOrd ered By: Dion Mora on 06-13-2024 Color (U) Nae Yellow [facility] Urine cultureOrdered By: Darleen Mora on 06-13-2024 Bacteria identified Cx Nom (U) Escherichia coli Abnormal [facility] Bacteria identified Cx Nom (U) Proteus mirabilis Abnormal [facility] Urine mhrer-1-cqsdczohadyybb abinol (THC) measurementOrdered By: Dion Mora on 06-13-2024 Cannabinoids Screen Ql (U) Negative < 50 ng/mL [facility] Urine leukocyte esterase det ection by dipstickOrdered By: Dion Mora on 06-13-2024 Leukocyte esterase Test strip Ql (U) 500 /ul High Negative [facility] Urine methylenedioxymethamph etamine (MDMA) measurementOrdered By: Dion Mora on 06-13-2024 MDMA (Ecstasy) Screen Negative < 500 ng/mL [facility] Urine pHOrdered By: Dion jung on 06-13-2024 pH (U) 5.0 [pH] 5.0 - 8.0 [facility] Urine phencyclidine (PCP) de tectionOrdered By: Dion Mora on 06-13-2024 Phencyclidine Ql (U) Negative < 25 ng/mL [facility] Urine sediment bacteria coun t by microscopy (number/high power field)Ordered By: Dion Mora on 06-13-2024 Bacteria LM.HPF (Urine sed) [#/Area] 2 /[HPF] None Seen [facility] Urine specific gravity measu rementOrdered By: Dion Mora on 06-13-2024 Specific gravity (U) [Rel density] 1.020 1.002-1.030 [facility] Urobilinogen Ql (U)Ordered B y: Dion Mora on 06-13-2024 Urobilinogen (U) [Mass/Vol] 4 mg/dL High Normal [facility] Valproate levelOrdered By: Donita Mora on 06-13-2024 Valproic Acid (Depakene) Level 9 ug/mL Low 50-100 [facility] Valproic Acid (Depakene) Lev mina 06-13-2024 VALPROIC ACID 9 ug/mL Low 50-100 [facility] Comment on above: Performed By: #### L 300.4310, L501.4020, M200.1000, L100.0100, L500.4050, L503.6005, L300.3900, L501.3620 #### [facility] [address] [place], [place], [id number] Venous blood ammonia measure mentOrdered By: Dion Mora on 06-13-2024 Ammonia < 10.0 umol/L Low 11-32 [facility] White blood cell (WBC) count Ordered By: Dion Mora on 06-13-2024 WBC (Bld) [#/Vol] 11.8 10*3/uL High 4.4-11.0 [facility] White blood cell countOrdere d By: Dion Mora on 06-13-2024 Urine WBC 5-10 SEEN /hpf 0-5 [facility] pH (Unsp spec)Ordered By: Christopher Rodriguez on 06-13-2024 Blood Gas pH 6.67 Low 7.35-7.45 [facility] CNPEmilia 03-20-2024 DEONDREN Telephone (4CQ) -------- KENYATTA CARRILLO ([id number]) 1960 F Date Time Provider Department 03/20/24 [...] [R53.81] 11/22/2020 Diagnosed: 05/22/2023 Other physical therapy [[id number]] 02/02/2003 Diagnosed: 05/22/2023 Pain in right hip [M25.551] 11/23/2020 Diagnosed: 05/22/2023 Polyp of colon [K63.5] 05/22/2023 Diagnosed: 05/22/2023 Tear of medial cartilage or meniscus of knee, c*08/08/2002 Diagnosed: 05/22/2023 Unsteadiness on feet [R26.81] 01/14/2021 Diagnosed: 05/22/2023 Encounter Status:Closed by LISETH LOCKWOOD on 03/20/24 [facility] 03-12-2024 [facility] -------- KENYATTA CARRILLO ([id number]) 1960 F Date Time Provider Department 03/12/24 [facility], we recorded [...] [R53.81] 11/22/2020 Diagnosed: 05/22/2023 Other physical therapy [[id number]] 02/02/2003 Diagnosed: 05/22/2023 Pain in right hip [M25.551] 11/23/2020 Diagnosed: 05/22/2023 Polyp of colon [K63.5] 05/22/2023 Diagnosed: 05/22/2023 Tear of medial cartilage or meniscus of knee, c*08/08/2002 (more content not included)... Normal [facility] 02-18-2024 DEONDREN Telephone ([facility]AMPWS) -------- KENYATTA [id number]) 1960 F Date Time Provider Department 02/18/24 [...] [R53.81] 11/22/2020 Diagnosed: 05/22/2023 Other physical therapy [[id number]] 02/02/2003 Diagnosed: 05/22/2023 Pain in right hip [M25.551] 11/23/2020 Diagnosed: 05/22/2023 Polyp of colon [K63.5] 05/22/2023 Diagnosed: 05/22/2023 Tear of medial cartilage or meniscus of knee, c*08/08/2002 Diagnosed: 05/22/2023 Unsteadiness on feet [R26.81] 01/14/2021 Diagnosed: 05/22/2023 Encounter Status:Closed by LISETH LOCKWOOD on 02/18/24 [facility] 02-14-2024 DEONDREN Telephone (FAMPWS) -------- KENYATTA CARRILLO ([id number]) 1960 F Date Time Provider Department 02/14/24 [...] [R53.81] 11/22/2020 Diagnosed: 05/22/2023 Other physical therapy [[id number]] 02/02/2003 Diagnosed: 05/22/2023 Pain in right hip [M25.551] 11/23/2020 Diagnosed: 05/22/2023 Polyp of colon [K63.5] 05/22/2023 Diagnosed: 05/22/2023 Tear of medial cartilage or meniscus of knee, c*08/08/2002 Diagnosed: 05/22/2023 Unsteadiness on feet [R26.81] 01/14/2021 Diagnosed: 05/22/2023 Letter Text Encounter Status:Closed by EDNA SALES on 02/14/24 [facility] 02-11-2024 [facility] Telephone (FAMPWS) -------- KENYATTA CARRILLO ([id number]) 1960 F Date Time Provider Department 02/11/24 [...] [R53.81] 11/22/2020 Diagnosed: 05/22/2023 Other physical therapy [[id number]] 02/02/2003 Diagnosed: 05/22/2023 Pain in right hip [M25.551] 11/23/2020 Diagnosed: 05/22/2023 Polyp of colon [K63.5] 05/22/2023 Diagnosed: 05/22/2023 Tear of medial cartilage or meniscus of knee, c*08/08/2002 Diagnosed: 05/22/2023 Unsteadiness on feet [R26.81] 01/14/2021 Diagnosed: 05/22/2023 Encounter Status:Closed by LISETH LOCKWOOD on 02/11/24 [facility] 01-24-2024 DEONDREN Telephone (ARNIE) -------- KNEYATTA CARRILLO ([id number]) 1960 F Date Time Provider Department 01/24/24 DIANNE CABAAmor During your visit today, we recorded the following information about you: Dianne Caba MSW 01/24/2024 2:48 PM Addendum Sw received call from Wali Martínez [place], [facility]. José Miguel notes that [...] Miguel notes that she has located a home staging specialist agency. Working with patient to see if she will allow home staging specialist agency to start service. José Miguel also [...] to say about appointment need. José Miguel [facility] ph. [phone]. Dylan did speak with HAYDER Sims to [...] often hard to reach also. Dianne Caba, [employer]ER 01/25/2024 8:42 AM Signed Dylan does note on 12/02 and 10/01 where MA's tried to reach out schedule appt and have not been able to reach patient by phone and My Chart to schedule appt. This Sw did verify with HAYDER Sims that she received message from [facility] regarding patient self neglect. Is there anything further at this time you feel we need to do for patient? Naye Sheets MD 01/25/2024 9:30 AM Signed I think if aps is involved that is the big thing. If they think her home situation is bad enough can consider er for evaluation for exterminator care. Kimberly Sanchez RN 02/13/2024 1:37 PM Signed Claudine from [email or web address] calls and states that she went out to see patient. Patient sits in one spot all day and urinates all over self. Patient's house is disgusting and dirty. Patient throws used pads all over floor. Claudine states that there is no active APS out on patient. KYLIE Hancock Erin, [employer]ENE[employer] T[employer]ER 02/14/2024 11:10 AM Signed Dylan will forward message to Dr. Sheets to update. Sw did speak with HAYDER Sims on 01/25/24 and she had noted that she received referral for patient and was aware of concerns noted by José Miguel, [facility] below. APS then makes their determination on visiting patient and if they screen patient in for services. Naye Sheets MD 02/14/2024 1:56 PM Signed Thank you. She did not keep her appt with me this week also Dianne Caba, VENEER TAPER 02/14/2024 3:20 PM Signed HAYDER Sims is [...] be done for patient at this time. HAYDER made documentation of patient living condition concerns. [...] List A (more content not included)... Normal [facility] XR Chest PA and Lateralon IMPRESSION: No acute radiographic abnormality. Counselor/Art Therapist: PSCB Transcribe Date/Time: Oct 16 2022 10:28A Dictated by : TUSHAR JENKINS MD This examination was interpreted and the report reviewed and electronically signed by: TUSHAR JENKINS MD on Oct 16 2022 10:28AM [facility] DIVISION OF RADIOLOGY * * *Final Report* [...] soft tissues: Unremarkable. DIVISION OF RADIOLOGY Provider, [facility] - 10/16/2022 * * *Final [...] Unremarkable. IMPRESSION IMPRESSION: No acute radiographic abnormality. Counselor/Art Therapist: REMY Transcribe Date/Time: Oct 16 2022 10:28A Dictated by : TUSHAR JENKINS MD This examination was interpreted and the report reviewed and electronically signed by: TUSHAR JENKINS MD on Oct 16 2022 10:28AM EST [facility] XR Chest PA and LateralOrder ed By: Ccf Provider on 10-16-2022 [facility] XR Chest PA and Lateralon Radiology Study observation (narrative) [facility] US EXT MASS/FLUID COLLECTION LTon 08-22-2022 US [...] been performed. No underlying abnormality is seen. Counselor/Art Therapist: PSCB Transcribe Date/Time: Aug 23 2022 9:40A Dictated by : TUSHAR JENKINS MD This examination was interpreted and the report reviewed and electronically signed by: TUSHAR JENKINS MD on Aug 23 2022 9:41AM EST [id number] [facility] US EXTREMITY MASS/FLUID HUSAM ECTION LEFTon 08-22-2022 [facility] XR Shoulder - left 3 Viewson 08-14-2022 IMPRESSION: Moderate glenohumeral osteoarthritis. Widening of the acromioclavicular interval, a finding which may reflect the sequela of prior ligamentous injury. Counselor/Art Therapist: REMY Transcribe Date/Time: Aug 14 2022 4:04P Dictated by : KAREN WOODS MD This examination was interpreted and the report reviewed and electronically signed by: KAREN WOODS MD on Aug 14 2022 4:05PM [facility] DIVISION OF RADIOLOGY * * *Final Report* [...] prior granulomatous exposure. DIVISION OF RADIOLOGY Provider, [facility] - 08/14/2022 * * *Final Report* * [...] reflect the sequela of prior ligamentous injury. Counselor/Art Therapist: REMY Transcribe Date/Time: Aug 14 2022 4:04P Dictated by : KAREN WOODS MD This examination was interpreted and the report reviewed and electronically signed by: KAREN WOODS MD on Aug 14 2022 4:05PM EST [facility] XR Elbow - left AP and Later brandon 08-13-2022 IMPRESSION: No acute osseous abnormalities are identified. Counselor/Art Therapist: REMY Transcribe Date/Time: Aug 13 2022 7:56P Dictated by : DEVEN PARIS MD This examination was interpreted and the report reviewed and electronically signed by: DEVEN PARIS MD on Aug 13 2022 7:58PM [facility] DIVISION OF RADIOLOGY * * *Final Report* [...] surfaces are preserved. DIVISION OF RADIOLOGY Provider, [facility] - 08/13/2022 * * *Final Report* * [...] IMPRESSION: No acute osseous abnormalities are identified. Counselor/Art Therapist: PSCB Transcribe Date/Time: Aug 13 2022 7:56P Dictated by : DEVEN PARIS MD This examination was interpreted and the report reviewed and electronically signed by: DEVEN PARIS MD on Aug 13 2022 7:58PM EST [facility] XR Elbow - left AP and Later alOrdered By: Ccf Provider on 08-13-2022 [facility] No Panel Informationon 08-11 Radiology Study observation (narrative) [facility] XR Humerus - left AP and Lat eralon 08-10-2022 IMPRESSION: Osteopenia. No acute osseous abnormality. Suggestion of glenohumeral osteoarthritis and rotator cuff tear. Suspected elbow joint effusion. Dedicated left elbow radiographs may be considered for further evaluation. Counselor/Art Therapist: PSCYazmin Transcribe Date/Time: Aug 10 2022 6:10A Dictated by : ROGELIO BARON MD This examination was interpreted and the report reviewed and electronically signed by: ROGELIO ABRON MD on Aug 10 2022 6:15AM [facility] DIVISION OF RADIOLOGY * * *Final Report* [...] are grossly unremarkable. DIVISION OF RADIOLOGY [facility] * * *Final Report* [...] radiographs may be considered for further evaluation. Counselor/Art Therapist: PSCB Transcribe Date/Time: Aug 10 2022 6:10A Dictated by : ROGELIO BARON MD This examination was interpreted and the report reviewed and electronically signed by: ROGELIO BARON MD on Aug 10 2022 6:15AM EST [facility] XR Humerus - left AP and Lat eralOrdered By: Ccf Provider on 08-10-2022 [facility] CBC W Auto Differential pane l (Bld)on 08-09-2022 Basophils (Bld) [#/Vol] 0.03 10*3/uL <0.11 k/uL [facility] Basophils/100 WBC (Bld) 0.4 % [facility] Differential cell count method Nom (Bld) Auto [facility] Eosinophils (Bld) [#/Vol] 0.11 10*3/uL <0.46 k/uL [facility] Eosinophils/100 WBC (Bld) 1.4 % [facility] Erythrocyte distribution width (RBC) [Ratio] 16.3 % High 11.5 - 15.0 % [facility] Hematocrit (Bld) [Volume fraction] 43.4 % 36.0 - 46.0 % [facility] Hemoglobin (Bld) [Mass/Vol] 14.1 g/dL 11.5 - 15.5 g/dL [facility] Immature granulocytes (Bld) [#/Vol] <0.10 k/uL [facility] Immature granulocytes/100 WBC (Bld) 0.2 % [facility] Lymphocytes (Bld) [#/Vol] 3.13 10*3/uL 1.00 - 4.00 k/uL [facility] Lymphocytes/100 WBC (Bld) 38.7 % [facility] MCH (RBC) [Entitic mass] 30.3 pg 26.0 - 34.0 pg [facility] MCHC (RBC) [Mass/Vol] 32.5 g/dL 30.5 - 36.0 g/dL [facility] MCV (RBC) [Entitic vol] 93.3 fL 80.0 - 100.0 fL [facility] Monocytes (Bld) [#/Vol] 0.84 10*3/uL <0.87 k/uL [facility] Monocytes/100 WBC (Bld) 10.4 % [facility] Neutrophils (Bld) [#/Vol] 3.96 10*3/uL 1.45 - 7.50 k/uL [facility] Neutrophils/100 WBC (Bld) 48.9 % [facility] Nucleated RBC (Bld) [#/Vol] <0.01 k/uL [facility] Nucleated RBC/100 WBC (Bld) [Ratio] 0.0 /100 WBC [facility] Platelet mean volume (Bld) [Entitic vol] 9.8 fL 9.0 - 12.7 fL [facility] Platelets (Bld) [#/Vol] 284 10*3/uL 150 - 400 k/uL [facility] RBC (Bld) [#/Vol] 4.65 10*6/uL 3.90 - 5.2 0 m/uL [facility] WBC (Bld) [#/Vol] 8.09 10*3/uL 3.70 - 11. 00 k/uL [facility] XR Humerus - left AP and Lat eralon 08-09-2022 Radiology Study observation (narrative) [facility] Absolute lymphocyte countOrd ered By: Dr. Roach on 06-16-2022 Lymphocytes Auto (Unsp spec) [#/Vol] 1.75 10*3/uL 0.83-4.51 [facility] Basophil percentageOrdered B y: Dr. Roach on 06-16-2022 Basophils/100 WBC (Bld) 0.3 % 0-1 [facility] Eosinophils/100 WBC (Bld) 1.7 % 0-5 [facility] Neutrophils (Bld) [#/Vol] 3.5 10*3/uL 2.0-7.7 [facility] Neutrophils/100 WBC (Bld) 54.9 % 47-70 [facility] WBC (Bld) [#/Vol] 6.3 10*3/uL 4.4-11.0 [facility] Blood erythrocytes count (nu mber/volume)Ordered By: Dr. Roach on 06-16-2022 RBC (Bld) [#/Vol] 3.21 10*6/uL 4.2-5.4 [facility] Blood hemoglobin measurement (mass/volume)Ordered By: Dr. Roach on 06-16-2022 Hemoglobin (Bld) [Mass/Vol] 9.1 g/dL 12.0-15.0 [facility] Blood lymphocytes/100 leukoc ytesOrdered By: Dr. Roach on 06-16-2022 Lymphocytes/100 WBC (Bld) 27.8 % 19-41 [facility] Blood manual differential co mment interpretation (narrative result)Ordered By: Dr. Roach on 06-16-2022 Manual differential comment Tate (Bld) [Interp] SCANNED [facility] Blood monocytes/100 leukocyt esOrdered By: Dr. Roach on 06-16-2022 Monocytes/100 WBC (Bld) 14.0 % 0-10 [facility] Blood platelet mean volumeOr dered By: Dr. Roach on 06-16-2022 Platelet mean volume (Bld) [Entitic vol] 9.0 fL 6.2-12.0 [facility] Determination of erythrocyte mean corpuscular volume (MCV)Ordered By: Dr. Roach on 06-16-2022 MCV (RBC) [Entitic vol] 93.1 fL 81-99 [facility] Hematocrit Auto (Bld) [Volum e fraction]Ordered By: Dr. Roach on 06-16-2022 Hematocrit (Bld) [Volume fraction] 29.9 % 37-47 [facility] Hypochromatic red blood cell detectionOrdered By: Dr. Roach on 06-16-2022 Hypochromia Ql (Bld) 1+ [facility] Laboratory - Hematology and Cell countsOrdered By: Dr. Roach on 06-16-2022 Anisocytosis Ql (Bld) 1+ [facility] Erythrocyte distribution width (RBC) [Entitic vol] 66.3 fL 35.1-43.9 [facility] Erythrocyte distribution width (RBC) [Ratio] 19.4 % 11.6-14.6 [facility] Immature granulocytes/100 WBC (Bld) 1.300 % 0.0-0.9 [facility] Comment on above: IG% - Immature Granu locytes (promyelocytes, myelocytes and metamyelocytes) > 1% indicates that a LEFT SHIFT is Present. MCH (RBC) [Entitic mass] 28.3 pg 27.0-32.0 [facility] Nucleated RBC/100 WBC (Bld) [Ratio] 0 % 0-5 [facility] MCHC Auto (RBC) [Mass/Vol]Or dered By: Dr. Roach on 06-16-2022 MCHC (RBC) [Mass/Vol] 30.4 g/dL 32-36 [facility] Comment on above: Delta: 32.8 on [id number] Platelets bldOrdered By: Dr. Roach on 06-16-2022 Platelets (Bld) [#/Vol] 308 10*3/uL 150-450 [facility] Basophil percentageOrdered B y: Dr. Roach on 06-15-2022 Chloride [Moles/Vol] 108 mmol/L 98-107 [facility] Glucose [Mass/Vol] 96 mg/dL 74-[address] [facility] Potassium [Moles/Vol] 5.0 mmol/L 3.5-5.1 [facility] Sodium [Moles/Vol] 137 mmol/L 136-[address] [facility] Laboratory - Chemistry and C hemistry - challengeOrdered By: Dr. Roach on 06-15-2022 CO2 [Moles/Vol] 23.0 mmol/L 21.0-32.0 [facility] Urea nitrogen/Creatinine [Mass ratio] 23.1 mg/mg 10-20 [facility] Lower GI hemoglobin IA Ql (S tl)Ordered By: Dr. Roach on 06-15-2022 Stool Occult Blood (NOAH) Positive [facility] No Panel InformationOrdered By: Dr. Roach on 06-15-2022 Estimated Creatinine Clearance Calc 69.95 ml/min [facility] Estimated GFR (MDRD) Amer 76 mL/min >60 [facility] Comment on above: GFR Calc Estimated GFR (MDRD) Non-Af Amer 63 mL/min >60 [facility] Comment on above: Non- GFR Calc Serum or plasma calcium abida urement (mass/volume)Ordered By: Dr. Roach on 06-15-2022 Calcium [Mass/Vol] 8.4 mg/dL 8.5-10.[address] [facility] Serum or plasma creatinine m easurement (mass/volume)Ordered By: Dr. Roach on 06-15-2022 Creatinine [Mass/Vol] 0.95 mg/dL 0.55-1.02 [facility] Comment on above: The validity of the calculated GFR & GFRAA in patients over 70 years has not been determined. Clinical correlation is essential. Serum or plasma urea nitroge n measurement (mass/volume)Ordered By: Dr. Roach on 06-15-2022 Urea nitrogen [Mass/Vol] 22 mg/dL 7-18 [facility] Thin prep Papanicolaou smear with manual screeningOrdered By: Dr. Roach on 06-15-2022 Thin prep Papanicolaou smear with manual screening 6 5-15 [facility] Thin prep Papanicolaou smear with manual screeningOrdered By: Dr. Roach on 06-14-2022 Thin prep Papanicolaou smear with manual screening 2+ [facility] Laboratory - Chemistry and C hemistry - challengeOrdered By: Dr. Lopez on 06-13-2022 Sodium (U) [Moles/Vol] 5 mmol/L Not Establ. [facility] No Panel InformationOrdered By: Dr. Lopez on 06-13-2022 Urine Potassium 73.0 mmol/L Not Establ. [facility] Thin prep Papanicolaou smear with manual screeningOrdered By: Dr. Lopez on 06-13-2022 Thin prep Papanicolaou smear with manual screening 32 mmol/L Not Establ. [facility] Urine creatinine measurement (mass/volume)Ordered By: Dr. Lopez on 06-13-2022 Creatinine (U) [Mass/Vol] 283.00 mg/dL NO RANGE EST. [facility] Laboratory - Chemistry and C hemistry - challengeOrdered By: Dr. Lopez on 06-12-2022 Free T4 [Mass/Vol] 1.59 ng/dL 0.76-1.[address] [facility] No Panel InformationOrdered By: Dr. Lopez on 06-12-2022 Thyroid Stimulating Hormone (TSH) 3.74 uIU/mL 0.358-3.74 [facility] Basophil percentageOrdered B y: Dr. Lopez on 06-11-2022 Basophil percentage 3.1 mg/dL 2.5-4.9 [facility] INR in Blood by Coagulation assayOrdered By: Dr. Recinos on 06-11-2022 INR Coag (Bld) [Relative time] 1.2 {INR} [facility] Laboratory - Chemistry and C hemistry - challengeOrdered By: Dr. Lopez on 06-11-2022 Amylase [Catalytic activity/Vol] 7 U/L 5-55 [facility] Laboratory - CoagulationOrde red By: Dr. Recinos on 06-11-2022 aPTT Coag (Bld) [Time] 27.2 s 24.1-36.2 [facility] PT Coag (PPP) [Time] 15.1 s 11.7-14.9 [facility] No Panel InformationOrdered By: Dr. Recinos on 06-11-2022 Troponin I High Sensitivity 17 pg/mL 3.0-54.0 [facility] Comment on above: Please Note: New Franci t Units and Gender Specific Reference Ranges. For more information see Policy Stat Procedure [place] High Sensitivity Troponin (TNIH) and attachments. Basophil percentageOrdered B y: Dr. Allison on 06-10-2022 Chloride [Moles/Vol] 87 mmol/L 98-107 [facility] Glucose [Mass/Vol] 146 mg/dL 74-[address] [facility] Comment on above: Fasting Glucose resu lt greater than or equal to 126 mg/dL suggests DIABETES MELLITUS per A.D.A. criteria. Potassium [Moles/Vol] 2.3 mmol/L 3.5-5.1 [facility] Comment on above: Critical Result(s) C alled at: 16:46:15 06/10/2022 by: KYLIE TORREZ ED. Results read back by same. Sodium [Moles/Vol] 132 mmol/L 136-[address] [facility] WBC (Bld) [#/Vol] 13.6 10*3/uL 4.4-11.0 [facility] Blood erythrocytes count (nu mber/volume)Ordered By: Dr. Allison on 06-10-2022 RBC (Bld) [#/Vol] 2.87 10*6/uL 4.2-5.4 [facility] Blood hemoglobin measurement (mass/volume)Ordered By: Dr. Allison on 06-10-2022 Hemoglobin (Bld) [Mass/Vol] 7.8 g/dL 12.0-15.0 [facility] Blood manual differential co mment interpretation (narrative result)Ordered By: Dr. Allison on 06-10-2022 Manual differential comment Tate (Bld) [Interp] SCANNED [facility] Comment on above: 2+ ANISOCYTOSIS Blood platelet mean volumeOr dered By: Dr. Allison on 06-10-2022 Platelet mean volume (Bld) [Entitic vol] 9.7 fL 6.2-12.0 [facility] Determination of erythrocyte mean corpuscular volume (MCV)Ordered By: Dr. Allison on 06-10-2022 MCV (RBC) [Entitic vol] 88.2 fL 81-99 [facility] Hematocrit Auto (Bld) [Volum e fraction]Ordered By: Dr. Allison on 06-10-2022 Hematocrit (Bld) [Volume fraction] 25.3 % 37-47 [facility] Iron measurement (mass/mass) Ordered By: Dr. Recinos on 06-10-2022 Iron (Unsp spec) [Mass/Mass] 26 ug/dL 50-170 [facility] Laboratory - Chemistry and C hemistry - challengeOrdered By: Dr. Recinos on 06-10-2022 Magnesium [Mass/Vol] 1.9 mg/dL 1.6-2.6 [facility] Laboratory - Chemistry and C hemistry - challengeOrdered By: Dr. Allison on 06-10-2022 CO2 [Moles/Vol] 31.0 mmol/L 21.0-32.0 [facility] Urea nitrogen/Creatinine [Mass ratio] 19.4 mg/mg 10-20 [facility] Laboratory - Hematology and Cell countsOrdered By: Dr. Allison on 06-10-2022 Erythrocyte distribution width (RBC) [Entitic vol] 66.9 fL 35.1-43.9 [facility] Erythrocyte distribution width (RBC) [Ratio] 22.1 % 11.6-14.6 [facility] MCH (RBC) [Entitic mass] 27.2 pg 27.0-32.0 [facility] MCHC Auto (RBC) [Mass/Vol]Or dered By: Dr. Allison on 06-10-2022 MCHC (RBC) [Mass/Vol] 30.8 g/dL 32-36 [facility] No Panel InformationOrdered By: Dr. Recinos on 06-10-2022 Ethyl Alcohol Level < 3.0 mg/dL [facility] Comment on above: The serum:whole bloo d ethanol ratio is approximately 1.14and varies slightly with hematocrit. Medical Alcohol reference interval and critical value innon-tolerant individuals; 50 - 100 Impairment 100 Intoxication 100 - 250 Severe Poisoning 250 - 400 Deep/possible fatal coma Thyroid Stimulating Hormone (TSH) 4.12 uIU/mL 0.358-3.74 [facility] Total Iron Binding Capacity 388 ug/dL 250-450 [facility] Troponin I High Sensitivity 15 pg/mL 3.0-54.0 [facility] Comment on above: Please Note: New Franci t Units and Gender Specific Reference Ranges. For more information see Policy Stat Procedure [place] High Sensitivity Troponin (TNIH) and attachments. No Panel InformationOrdered By: Dr. Allison on 06-10-2022 Estimated Creatinine Clearance Calc 49.59 ml/min [facility] Estimated GFR (MDRD) Amer 51 mL/min >60 [facility] Comment on above: GFR Calc Estimated GFR (MDRD) Non-Af Amer 42 mL/min >60 [facility] Comment on above: Non- GFR Calc Platelets bldOrdered By: Dr. Allison on 06-10-2022 Platelets (Bld) [#/Vol] 270 10*3/uL 150-450 [facility] Serum or plasma calcium abida urement (mass/volume)Ordered By: Dr. Allison on 06-10-2022 Calcium [Mass/Vol] 8.6 mg/dL 8.5-10.[address] [facility] Serum or plasma creatinine m easurement (mass/volume)Ordered By: Dr. Allison on 06-10-2022 Creatinine [Mass/Vol] 1.34 mg/dL 0.55-1.02 [facility] Comment on above: The validity of the calculated GFR & GFRAA in patients over 70 years has not been determined. Clinical correlation is essential. Serum or plasma ferritin brisa surement (mass/volume)Ordered By: Dr. Recinos on 06-10-2022 Ferritin [Mass/Vol] 16 ng/mL 8252 [facility] Serum or plasma iron saturat ion measurement (mass fraction)Ordered By: Dr. Recinos on 06-10-2022 Iron saturation [Mass fraction] 6.7 % 15.0-55.0 [facility] Serum or plasma urea nitroge n measurement (mass/volume)Ordered By: Dr. Allison on 06-10-2022 Urea nitrogen [Mass/Vol] 26 mg/dL 7-18 [facility] Thin prep Papanicolaou smear with manual screeningOrdered By: Dr. Allison on 06-10-2022 Thin prep Papanicolaou smear with manual screening 14 5-15 [facility] Whole blood hemoglobin A1c/t otal hemoglobin ratio (mass fraction)Ordered By: Dr. Recinos on 06-10-2022 HbA1c (Bld) [Mass fraction] % 3.8-5.6 [facility] Comment on above: Normal < 5.7 % Predi abetic 5.7 - 6.4 % Diabetic >or= 6.5 % Please note range changes. Basic metabolic 2000 panelon 04-27-2022 Anion gap [Moles/Vol] 11 mmol/L 9 - 18 mmol/L [facility] Calcium [Mass/Vol] 8.5 mg/dL 8.5 - 10. 2 mg/dL [facility] Chloride [Moles/Vol] 101 mmol/L 97 - 10 5 mmol/L [facility] CO2 [Moles/Vol] 21 mmol/L Low 22 - 30 mmol/L [facility] Creatinine [Mass/Vol] 0.89 mg/dL 0.58 - 0.96 mg/dL [facility] Estimated Glomerular Filtration Rate 73 mL/min/1.73m >=60 mL/min/1.73m [facility] Glucose [Mass/Vol] 86 mg/dL 74 - 99 mg/[facility] Potassium [Moles/Vol] 4.2 mmol/L 3.7 - 5.1 mmol/L [facility] Sodium [Moles/Vol] 133 mmol/L Low 136 - 144 mmol/L [facility] Urea nitrogen [Mass/Vol] 15 mg/dL 7 - 21 mg/dL [facility] ESR Westergren method (Bld) [Velocity]on 04-27-2022 ESR (Bld) [Velocity] 41 mm/h High 0 - 20 mm/hr [facility] FERRITIN BLDon 04-27-2022 Ferritin [Mass/Vol] 11.3 ng/mL Low 14.7 - 2 05.1 ng/mL [facility] FOLATE SERUMon 04-27-2022 Folate [Mass/Vol] 3.3 ng/mL Low >4.7 ng/mL [facility] Iron and Iron binding capaci ty panelon 04-27-2022 Iron [Mass/Vol] 15 ug/dL Low 41 - 186 ug/dL [facility] Iron binding capacity [Mass/Vol] 358 ug/dL 232 - 386 ug/dL [facility] Iron/TIBC [Molar ratio] 4.2 % Low 15.0 - 57.0 % [facility] MAGNESIUM BLDon 04-27-2022 Magnesium [Mass/Vol] 1.5 mg/dL Low 1.7 - 2 .3 mg/dL [facility] VITAMIN B12 BLOODon 04-27-20 Cobalamin (Vitamin B12) [Mass/Vol] 178 pg/mL Low 232 - 1,245 pg/mL [facility] CBC W Auto Differential pane l (Bld)on 04-26-2022 Basophils (Bld) [#/Vol] <0.11 k/uL [facility]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 [Moles/Vol] 105 mmol/L Normal 98-110 [facility] ([place]) Comment on above: Performed By: #### C BC, ADIFF, ANEU, BMP #### [place] [address] #### ALC, GFR #### [address] [address] CO2 [Moles/Vol] 20 mmol/L Low 22-32 [facility] ([place]) Comment on above: Performed By: #### C BC, ADIFF, ANEU, BMP #### [address] [address] #### ALC, GFR #### [address] [address] Creatinine [Mass/Vol] 0.63 mg/dL Normal 0.50-1.20 [facility] ([place] Comment on above: Performed By: #### C BC, ADIFF, ANEU, BMP #### [place] [address] #### ALC, GFR #### [address] [address] Electrolyte Balance 12.0 mEq/L Normal 4.0-15.0 [facility] ([place] Comment on above: Performed By: #### C BC, ADIFF, ANEU, BMP #### [place] [address] #### ALC, GFR #### [place] [address] Globulin 3.0 G/dL Normal 1.5-3.8 [facility] ([place] Comment on above: Performed By: #### C BC, ADIFF, ANEU, BMP #### [place] [address] #### ALC, GFR #### [address] [address] Glucose [Mass/Vol] 160 mg/dL High 82-115 [facility] [place] Comment [place]: Performed By: #### C BC, ADIFF, ANEU, BMP #### [address] [address] #### ALC, GFR #### [address] [address] Potassium [Moles/Vol] 4.3 mmol/L Normal 3.5-5.0 [facility] ([place] Comment on above: Performed By: #### C BC, ADIFF, ANEU, BMP #### [place] [address] #### ALC, GFR #### [address] [address] Sodium [Moles/Vol] 137 mmol/L Normal 136-145 [facility] [place] Comment [place] above: Performed By: #### C BC, ADIFF, ANEU, BMP #### [address] [address] #### ALC, GFR #### [place] [address] Total Protein 6.1 G/dL Normal 5.7-8.2 [facility] ([place]) Comment on above: Result Comment: No te - New Reference Range in effect 19 Performed By: #### C BC, ADIFF, ANEU, BMP #### [address] [address] #### ALC, GFR #### [address] [address] Urea nitrogen [Mass/Vol] 10.0 mg/dL Normal 8.0-22.0 [facility] ([place] Comment on above: Performed By: #### C BC, ADIFF, ANEU, BMP #### [address] [address] #### ALC, GFR #### [address] [address] HGBon 11-10-2020 Hgb 10.5 G/dL Low 12.0-16.0 [facility] ([place] Comment on above: Performed By: #### C BC, ADIFF, ANEU, BMP #### [address] [address] #### ALC, GFR #### [place] [id number] TSHon 11-10-2020 TSH 0.510 mIU/mL Low 0.550-4.780 [facility] ([place]) Comment on above: Result Comment: No te - New Reference Range in effect 19 Performed By: #### C BC, ADIFF, ANEU, BMP #### [place] [address] #### ALC, GFR #### [address] [address] .Auto Diffon 11-09-2020 Basophil, Absolute 0.10 10 3/mcL Normal 0.00-0.19 [facility] ([place] Comment on above: Performed By: #### C BC, ADIFF, ANEU, BMP #### [place] [address] #### ALC, GFR #### [address] [address] Basophils/100 WBC (Bld) 1.0 % Normal 0.0-2.5 A [facility] ([place] Comment on above: Performed By: #### C BC, ADIFF, ANEU, BMP #### [place] [address] #### ALC, GFR #### [place] [address] Eosinophil, Absolute 0.10 10 3/mcL Normal 0.00-0.40 A [facility] ([place] Comment on above: Performed By: #### C BC, ADIFF, ANEU, BMP #### [place] [address] #### ALC, GFR #### [address] [address] Eosinophils/100 WBC (Bld) 0.5 % Normal 0.0-7.0 [facility] ([place] Comment on above: Performed By: #### C BC, ADIFF, ANEU, BMP #### [place] [address] #### ALC, GFR #### [address] [address] Lymphocyte, Absolute 3.90 10 3/mcL High 0.77-3.85 A [facility] ([place] Comment on above: Performed By: #### C BC, ADIFF, ANEU, BMP #### [place] [address] #### ALC, GFR #### [address] [address] Lymphocytes/100 WBC (Bld) 28.5 % Normal 10.0-50.0 [facility] ([place] Comment on above: Performed By: #### C BC, ADIFF, ANEU, BMP #### [address] [address] #### ALC, GFR #### [address] [address] Monocyte, Absolute 0.60 10 3/mcL Normal 0.15-1.00 [facility] ([place]) Comment on above: Performed By: #### C BC, ADIFF, ANEU, BMP #### [address] [address] #### ALC, GFR #### [address] [address] Monocytes/100 WBC (Bld) 4.4 % Normal 1.7-13.0 [facility] ([place]) Comment on above: Performed By: #### C BC, ADIFF, ANEU, BMP #### [address] [address] #### ALC, GFR #### [address] [address] Neutrophils/100 WBC (Bld) 65.6 % Normal 37.0-80.0 [facility] ([place] Comment on above: Performed By: #### C BC, ADIFF, ANEU, BMP #### [place] [address] #### ALC, GFR #### [address] [address] .GFRon 11-09-2020 GFR Non- 63 ml/min/1.73sqm Normal [facility] ([place]) Comment on above: Result Comment: GFR Population [...] #### C BC, ADIFF, ANEU, BMP #### [place] [address] #### ALC, GFR #### [address] [address] GFR 76 ml/min/1.73sqm Normal [facility] ([place]) Comment on above: Result Comment: GFR Population [...] #### C BC, ADIFF, ANEU, BMP #### [place] [address] #### ALC, GFR #### [address] [address] .NEUABSon 11-09-2020 Neutrophil, Absolute 8.90 10 3/mcL High 2.85-6.16 A [facility] ([place] Comment on above: Performed By: #### C BC, ADIFF, ANEU, BMP #### [address] [address] #### ALC, GFR #### [address] [address] .Urinalysis Microscopic (AO) on 11-09-2020 UA Coarse Granular Casts 0-5 Abnormal [facility] ([place] Comment on above: Performed By: #### C BC, ADIFF, ANEU, BMP #### [address] [address] #### ALC, GFR #### [address] [address] UA RBC 0-5 Abnormal None Seen [facility] ([place] Comment on above: Performed By: #### C BC, ADIFF, ANEU, BMP #### [address] [address] #### ALC, GFR #### [address] [address] UA Squam Epithelial 0-5 Abnormal None Seen [facility] ([place] Comment on above: Performed By: #### C BC, ADIFF, ANEU, BMP #### [place] [address] #### ALC, GFR #### [address] [address] UA WBC None Seen Normal None Seen [facility] ([place] Comment on above: Performed By: #### C BC, ADIFF, ANEU, BMP #### [place] [address] #### ALC, GFR #### [address] [address] ACETAon 11-09-2020 Acetaminophen [Mass/Vol] 0.0 ug/mL Normal 10.0-30.0 [facility] ([place] Comment on above: Performed By: #### C BC, ADIFF, ANEU, BMP #### [place] [address] #### ALC, GFR #### [address] [address] Juan 11-09-2020 Ethanol Level 422 mg/dL Critically abnormal 0-3 [facility] ([place] Comment on above: Performed By: #### C BC, ADIFF, ANEU, BMP #### [address] [address] #### ALC, GFR #### [address] [address] BMPon 11-09-2020 BUN/Creatinine Ratio 12 ratio Normal 7-27 [facility] ([place]) Comment on above: Order Comment: Speci men hemolyzed. Notified Madina in ER @11/09/2020 11:12:58 EDT BP Performed By: #### C BC, ADIFF, ANEU, BMP #### [address] [address] #### ALC, GFR #### [address] [address] Calcium [Mass/Vol] 7.8 mg/dL Low 8.4-10.2 [facility] [place]: Order Comment: Speci men hemolyzed. Notified Madina in ER @11/09/2020 11:12:58 EDT BP Performed By: #### C BC, ADIFF, ANEU, BMP #### [address] [address] #### ALC, GFR #### [address] [address] Chloride [Moles/Vol] 104 mmol/L Normal 98-107 [facility] ([place]) Comment on above: Order Comment: Speci men hemolyzed. Notified Madina in ER @11/09/2020 11:12:58 EDT BP Performed By: #### C BC, ADIFF, ANEU, BMP #### [address] [address] #### ALC, GFR #### [address] [address] CO2 [Moles/Vol] 20 mmol/L Low 23-31 [facility] ([place] Comment on above: Order Comment: Speci men hemolyzed. Notified Madina in ER @11/09/2020 11:12:58 EDT BP Performed By: #### C BC, ADIFF, ANEU, BMP #### [address] [address] #### ALC, GFR #### [address] [address] Creatinine [Mass/Vol] 0.91 mg/dL Normal 0.55-1.02 [facility] ([place] Comment on above: Order Comment: Speci men hemolyzed. Notified Madina in ER @11/09/2020 11:12:58 EDT BP Performed By: #### C BC, ADIFF, ANEU, BMP #### [address] [address] #### ALC, GFR #### [address] [address] Electrolyte Balance 21.0 mEq/L Normal [facility] ([place] Comment on above: Order Comment: Speci men hemolyzed. Notified Madina in ER @11/09/2020 11:12:58 EDT BP Performed By: #### C BC, ADIFF, ANEU, BMP #### [address] [address] #### ALC, GFR #### [address] [address] Glucose [Mass/Vol] 86 mg/dL Normal 80-115 [facility] [place] Comment [place]: Order Comment: Speci men hemolyzed. Notified Madina in ER @11/09/2020 11:12:58 EDT BP Performed By: #### C BC, ADIFF, ANEU, BMP #### [address] [address] #### ALC, GFR #### [address] [address] Potassium [Moles/Vol] 3.6 mmol/L Normal 3.5-5.1 [facility] ([place] Comment on above: Order Comment: Speci men hemolyzed. Notified Madina in ER @11/09/2020 11:12:58 EDT BP Performed By: #### C BC, ADIFF, ANEU, BMP #### [address] [address] #### ALC, GFR #### [address] [address] Sodium [Moles/Vol] 145 mmol/L Normal 136-145 [facility] [place] Comment [place]: Order Comment: Speci men hemolyzed. Notified Madina in ER @11/09/2020 11:12:58 EDT BP Performed By: #### C BC, ADIFF, ANEU, BMP #### [address] [address] #### ALC, GFR #### [address] [address] Urea nitrogen [Mass/Vol] 11 mg/dL Normal 7-18 [facility] ([place] Comment on above: Order Comment: Speci men hemolyzed. Notified Madina in ER @11/09/2020 11:12:58 EDT BP Performed By: #### C BC, ADSKY, ANEU, BMP #### [place] [address] #### ALC, GFR #### [address] [address] CBCon 11-09-2020 Erythrocyte distribution width (RBC) [Ratio] 18.0 % High 11.5-14.5 [facility] ([place] Comment on above: Performed By: #### C BC, ADIFF, ANEU, BMP #### [place] [address] #### ALC, GFR #### [address] [address] Hematocrit (Bld) [Volume fraction] 39.7 % Normal 37.0-47.0 [facility] ([place] Comment on above: Performed By: #### C BC, ADSKY, ANEU, BMP #### [place] [address] #### ALC, GFR #### [address] [address] Hgb 13.5 G/dL Normal 12.0-16.0 [facility] ([place] Comment on above: Performed By: #### C BC, ADIFF, ANEU, BMP #### [address] [address] #### ALC, GFR #### [address] [address] MCH (RBC) [Entitic mass] 31.2 pg Normal 27.0-31.2 [facility] ([place] Comment on above: Performed By: #### C BC, ADIFF, ANEU, BMP #### [place] [address] #### ALC, GFR #### [place] [address] MCHC 34.2 G/dL Normal 33.0-37.0 [facility] ([place] Comment on above: Performed By: #### C BC, ADIFF, ANEU, BMP #### [place] [address] #### ALC, GFR #### [place] [address] MCV (RBC) [Entitic vol] 91.5 fL Normal 80.0-94.0 A [facility] ([place] Comment on above: Performed By: #### C BC, ADIFF, ANEU, BMP #### [place] [address] #### ALC, GFR #### [place] [address] Platelet 274 10 3/mcL Normal 130-400 [facility] ([place]) Comment on above: Performed By: #### C BC, ADIFF, ANEU, BMP #### [place] [address] #### ALC, GFR #### [place] [address] Platelet mean volume (Bld) [Entitic vol] 6.9 fL Low 7.4-10.4 [facility] ([place] Comment on above: Performed By: #### C BC, ADIFF, ANEU, BMP #### [place] [address] #### ALC, GFR #### [place] [address] RBC 4.34 10 6/mcL Normal 4.20-5.40 [facility] ([place] Comment on above: Performed By: #### C BC, ADIFF, ANEU, BMP #### [place] [address] #### ALC, GFR #### [place] [address] WBC 13.60 10 3/mcL High 4.60-10.80 [facility] ([place] Comment on above: Performed By: #### C BC, ADIFF, ANEU, BMP #### [place] [address] #### ALC, GFR #### [place] [address] CKon 11-09-2020 CK [Catalytic activity/Vol] 64 U/L Normal 26-192 [facility] ([place] Comment on above: Performed By: #### C BC, ADIFF, ANEU, BMP #### [place] [address] #### ALC, GFR #### [place] [address] [id number] 11-09-2020 Date of Onset [id number] Invalid Interpretation Code [facility] ([place]) Comment on above: Performed By: #### C BC, ADIFF, ANEU, BMP #### [place] [address] #### ALC, GFR #### [place] [address] Employed in Healthcare No Normal [facility] ([place]) Comment on above: Performed By: #### C BC, ADIFF, ANEU, BMP #### [place] [address] #### ALC, GFR #### [place] [address] First Test Unknown [facility] ([place]) Comment on above: Performed By: #### C BC, ADIFF, ANEU, BMP #### [address] [address] #### ALC, GFR #### [facility] [address] [place] [id number] Hospitalized Unknown [facility] ([place]) Comment on above: Performed By: #### C BC, ADIFF, ANEU, BMP #### [address] [address] #### ALC, GFR #### [facility] [address] [place] [id number] ICU No [facility] ([place]) Comment on above: Performed By: #### C BC, ADIFF, ANEU, BMP #### [address] [address] #### ALC, GFR #### [place] [address] Not [facility] ([place] Comment on above: Performed By: #### C BC, ADIFF, ANEU, BMP #### [address] [address] #### ALC, GFR #### [place] [address] Resides in Congregate Care Setting [facility] ([place] Comment on above: Performed By: #### C BC, ADIFF, ANEU, BMP #### [address] [address] #### ALC, GFR #### [place] [address] SARS-CoV-2 (COVID-19) RNA TONIO+probe Ql (Unsp spec) Negative Normal Negative [facility] ([place]) Comment on above: Performed By: #### C BC, ADIFF, ANEU, BMP #### [address] [address] #### ALC, GFR #### [place] [id number] SARS-CoV-2 (COVID-19) RNA TONIO+probe Ql (Unsp spec) Normal [facility] ([place]) Comment on above: Result Comment: Nega tive [...] or inadequate numbers of organisms for amplification. [place] SARS-CoV-2 Assay is a Real-Time reverse-transcriptase polymerase [...] #### C [place] ME[place] ANEU, BMP #### [place] [address] #### ALC, GFR #### [place] [address] Symptomatic as Defined by CDC Yes [facility] ([place]) Comment on above: Performed By: #### C [place] ME[place] ANEU, BMP #### [place] [address] #### ALC, GFR #### [place] [address] MGon 11-09-2020 Magnesium [Mass/Vol] 1.1 mg/dL Low 1.8-2.4 [facility] ([place]) Comment on above: Performed By: #### C [place] ME[place] ANEU, BMP #### [place] [address] #### ALC, GFR #### [place] [id number] SALon 11-09-2020 Salicylate Level 1.1 mg/dL Low 2.8-20.0 [facility] ([place]) Comment on above: Performed By: #### C BC, ADIFF, ANEU, BMP #### [address] [address] #### ALC, GFR #### [address] [address] TOXSCon 11-09-2020 U Ampheta (AO) Negative [facility] ([place]) Comment on above: Performed By: #### C BC, ADIFF, ANEU, BMP #### [place] [address] #### ALC, GFR #### [place] [id number] U Dee (AO) Negative [facility] ([place] Comment on above: Performed By: #### C BC, ADIFF, ANEU, BMP #### [place] [address] #### ALC, GFR #### [place] [id number] U Maverick (AO) Negative [facility] ([place] Comment on above: Performed By: #### C BC, ADIFF, ANEU, BMP #### [address] [address] #### ALC, GFR #### [address] [address] U Cannab (AO) Negative [facility] ([place]) Comment on above: Performed By: #### C BC, ADIFF, ANEU, BMP #### [address] [address] #### ALC, GFR #### [address] [address] U Cocaine (AO) Negative [facility] ([place]) Comment on above: Performed By: #### C BC, ADIFF, ANEU, BMP #### [address] [address] #### ALC, GFR #### [place] [id number] U Methadone (AO) Negative [facility] ([place] Comment on above: Performed By: #### C BC, ADIFF, ANEU, BMP #### [address] [address] #### ALC, GFR #### [address] [address] U PCP (AO) Negative [facility] ([place] Comment on above: Performed By: #### C BC, ADIFF, ANEU, BMP #### [address] [address] #### ALC, GFR #### [address] [address] U TCA (AO) Negative [facility] ([place] Comment on above: Performed By: #### C BC, ADIFF, ANEU, BMP #### [place] [address] #### ALC, GFR #### [place] [address] Urine Opiates (AO) Negative [facility] ([place] Comment on above: Performed By: #### C BC, ADIFF, ANEU, BMP #### [place] [address] #### ALC, GFR #### [place] [address] TROPHSon 11-09-2020 Troponin I High Sensitivity 6.9 ng/L Normal 0.0-51.4 [facility] ([place] Comment on above: Performed By: #### C BC, ADIFF, ANEU, BMP #### [place] [address] #### ALC, GFR #### [place] [address] TSHon 11-09-2020 TSH Qn 0.56 m[IU]/L Normal 0.36-3.74 [facility] ([place]) Comment on above: Performed By: #### C BC, ADIFF, ANEU, BMP #### [place] [address] #### ALC, GFR #### [address] [address] UAon 11-09-2020 Color (U) Yellow Normal [facility] ([place]) Comment on above: Performed By: #### C BC, ADIFF, ANEU, BMP #### [place] [address] #### ALC, GFR #### [place] [address] Glucose (U) [Mass/Vol] Negative Normal Negative [facility] ([place]) Comment on above: Performed By: #### C BC, ADIFF, ANEU, BMP #### [place] [address] #### ALC, GFR #### [place] [address] Ketones Ql (U) 15 mg/dL Abnormal Negative [facility] ([place]) Comment on above: Performed By: #### C BC, ADIFF, ANEU, BMP #### [place] [address] #### ALC, GFR #### [place] [address] UA Appear Clear Normal Clear [facility] ([place]) Comment on above: Performed By: #### C BC, ADIFF, ANEU, BMP #### [place] [address] #### ALC, GFR #### [place] [address] UA Blood Trace Abnormal Negative [facility] ([place]) Comment on above: Performed By: #### C BC, ADIFF, ANEU, BMP #### [place] [address] #### ALC, GFR #### [place] [phone] UA Leuk Est Negative Normal Negative [facility] ([place]) Comment on above: Performed By: #### C BC, ADIFF, ANEU, BMP #### [place] [address] #### ALC, GFR #### [place] [address] UA Nitrite Negative Normal Negative [facility] ([place]) Comment on above: Performed By: #### C BC, ADIFF, ANEU, BMP #### [place] [address] #### ALC, GFR #### [place] [address] UA pH 5.5 Normal 5.0 - 8.0 [facility] ([place]) Comment on above: Performed By: #### C BC, ADIFF, ANEU, BMP #### [place] [address] #### ALC, GFR #### [place] [address] UA Protein 30 mg/dL Normal Negative [facility] ([place]) Comment on above: Performed By: #### C BC, ADIFF, ANEU, BMP #### [place] [address] #### ALC, GFR #### [place] [address] UA Spec Grav 1.025 Normal 1.015-1.025 [facility] ([place]) Comment on above: Performed By: #### C BC, ADIFF, ANEU, BMP #### [place] [address] #### ALC, GFR #### [place] [address] UA Specimen Type Clean Catch Normal [facility] ([place]) Comment on above: Performed By: #### C BC, ADIFF, ANEU, BMP #### [place] [address] #### ALC, GFR #### [place] [address] UA Urobilinogen 0.2 E.U./dL Normal 0.2-1.0 [facility] ([place]) Comment on above: Performed By: #### C BC, ADIFF, ANEU, BMP #### [address] [address] #### ALC, GFR #### [address] [address] Urobilinogen (U) [Mass/Vol] Negative Normal Negative [facility] ([place]) Comment on above: Performed By: #### C BC, ADIFF, ANEU, BMP #### [address] [address] #### ALC, GFR #### [address] [address] XR CHEST 1 VIEWon 11-09-2020 XR CHEST [...] Date: 11/09/2020 11:46:04 AM Ordering Provider:Diego Sultana [facility] ([place]) .Auto Diffon 09-29-2020 Basophil, Absolute 0.00 10 3/mcL Normal 0.00-0.19 [facility] ([place]) Comment on above: Performed By: #### C BC, ADIFF, ANEU, BMP #### [address] [address] #### ALC, GFR #### [address] [address] Basophils/100 WBC (Bld) 0.1 % Normal 0.0-2.5 A [facility] ([place] Comment on above: Performed By: #### C BC, ADIFF, ANEU, BMP #### [address] [address] #### ALC, GFR #### [address] [address] Eosinophil, Absolute 0.00 10 3/mcL Normal 0.00-0.40 A [facility] ([place] Comment on above: Performed By: #### C BC, ADIFF, ANEU, BMP #### [address] [address] #### ALC, GFR #### [address] [address] Eosinophils/100 WBC (Bld) 0.1 % Normal 0.0-7.0 [facility] ([place]) Comment on above: Performed By: #### C BC, ADIFF, ANEU, BMP #### [place] [address] #### ALC, GFR #### [address] [address] Lymphocyte, Absolute 1.30 10 3/mcL Normal 0.77-3.85 A [facility] ([place]) Comment on above: Performed By: #### C BC, ADIFF, ANEU, BMP #### [place] [address] #### ALC, GFR #### [address] [address] Lymphocytes/100 WBC (Bld) 21.3 % Normal 10.0-50.0 [facility] ([place]) Comment on above: Performed By: #### C BC, ADIFF, ANEU, BMP #### [place] [address] #### ALC, GFR #### [address] [address] Monocyte, Absolute 0.50 10 3/mcL Normal 0.15-1.00 [facility] ([place] Comment on above: Performed By: #### C BC, ADIFF, ANEU, BMP #### [place] [address] #### ALC, GFR #### [address] [address] Monocytes/100 WBC (Bld) 7.8 % Normal 1.7-13.0 A [facility] ([place] Comment on above: Performed By: #### C BC, ADIFF, ANEU, BMP #### [address] [address] #### ALC, GFR #### [address] [address] Neutrophils/100 WBC (Bld) 70.7 % Normal 37.0-80.0 [facility] ([place]) Comment on above: Performed By: #### C BC, ADIFF, ANEU, BMP #### [address] [address] #### ALC, GFR #### [address] [address] .GFRon 09-29-2020 GFR 80 ml/min/1.73sqm Normal [facility] ([place]) Comment on above: Result Comment: GFR Population [...] #### C BC, ADIFF, ANEU, BMP #### [address] [address] #### ALC, GFR #### [address] [address] GFR Non- 66 ml/min/1.73sqm Normal [facility] ([place]) Comment on above: Result Comment: GFR Population [...] #### C BC, ADIFF, ANEU, BMP #### [place] [address] #### ALC, GFR #### [place] [address] .NEUABSon 09-29-2020 Neutrophil, Absolute 4.30 10 3/mcL Normal 2.85-6.16 A [facility] ([place] Comment on above: Performed By: #### C BC, ADIFF, ANEU, BMP #### [place] [address] #### ALC, GFR #### [place] [address] .Urinalysis Microscopic (AO) on 09-29-2020 UA RBC None Seen Normal None Seen [facility] ([place]) Comment on above: Performed By: #### C BC, ADIFF, ANEU, BMP #### [place] [address] #### ALC, GFR #### [place] [address] UA Squam Epithelial 0-5 Abnormal None Seen [facility] ([place] Comment on above: Performed By: #### C BC, ADIFF, ANEU, BMP #### [place] [address] #### ALC, GFR #### [place] [id number] UA WBC 0-5 Abnormal None Seen [facility] ([place]) Comment on above: Performed By: #### C BC, ADIFF, ANEU, BMP #### Ev[place] [address] [place], [place] [address] #### ALC, GFR #### [address] [address] A1Con 09-29-2020 HbA1c (Bld) [Mass fraction] 5.3 % Normal 4.3-6.4 [facility] ([place]) Comment on above: Performed By: #### A 1C #### [address] [address] #### TSH #### [address] [address] [facility] 09-29-2020 BUN/Creatinine Ratio 15 ratio Normal 7-27 [facility] ([place]) Comment on above: Performed By: #### C BC, ADIFF, ANEU, BMP #### [address] [address] #### ALC, GFR #### [address] [address] Calcium [Mass/Vol] 9.0 mg/dL Normal 8.4-10.2 [facility] [place]: Performed By: #### C BC, ADIFF, ANEU, BMP #### [address] [address] #### ALC, GFR #### [address] [address] Chloride [Moles/Vol] 98 mmol/L Normal 98-107 [facility] ([place]) Comment on above: Performed By: #### C BC, ADIFF, ANEU, BMP #### [address] [address] #### ALC, GFR #### [address] [address] CO2 [Moles/Vol] 33 mmol/L High 23-31 [facility] ([place]) Comment on above: Performed By: #### C BC, ADIFF, ANEU, BMP #### [address] [address] #### ALC, GFR #### [address] [address] Creatinine [Mass/Vol] 0.87 mg/dL Normal 0.55-1.02 [facility] ([place] Comment on above: Performed By: #### C BC, ADIFF, ANEU, BMP #### [address] [address] #### ALC, GFR #### [address] [address] Electrolyte Balance 8.0 mEq/L Normal [facility] ([place] Comment on above: Performed By: #### C BC, ADIFF, ANEU, BMP #### [address] [address] #### ALC, GFR #### [address] [address] Glucose [Mass/Vol] 130 mg/dL High 80-115 [facility] [place] Comment [place]: Performed By: #### C BC, ADIFF, ANEU, BMP #### [place] [address] #### ALC, GFR #### [address] [address] Potassium [Moles/Vol] 4.1 mmol/L Normal 3.5-5.1 [facility] ([place] Comment on above: Performed By: #### C BC, ADIFF, ANEU, BMP #### [address] [address] #### ALC, GFR #### [address] [address] Sodium [Moles/Vol] 139 mmol/L Normal 136-145 [facility] [place] Comment [place]: Performed By: #### C BC, ADIFF, ANEU, BMP #### [address] [address] #### ALC, GFR #### [address] [address] Urea nitrogen [Mass/Vol] 13 mg/dL Normal 7-18 [facility] ([place]) Comment on above: Performed By: #### C BC, ADIFF, ANEU, BMP #### [place] [address] #### ALC, GFR #### [place] [address] CBCon 09-29-2020 Erythrocyte distribution width (RBC) [Ratio] 16.9 % High 11.5-14.5 [facility] ([place]) Comment on above: Performed By: #### C BC, ADIFF, ANEU, BMP, MG #### [place] [address] #### GFR #### [place] [address] Hematocrit (Bld) [Volume fraction] 36.0 % Low 37.0-47.0 [facility] ([place] Comment on above: Performed By: #### C BC, ADIFF, ANEU, BMP, MG #### [place] [address] #### GFR #### [place] [address] Hgb 12.3 G/dL Normal 12.0-16.0 [facility] ([place]) Comment on above: Performed By: #### C BC, ADIFF, ANEU, BMP, MG #### [place] [address] #### GFR #### [place] [address] MCH (RBC) [Entitic mass] 31.5 pg High 27.0-31.2 [facility] ([place]) Comment on above: Performed By: #### C BC, ADIFF, ANEU, BMP, MG #### [place] [address] #### GFR #### [place] [address] MCHC 34.2 G/dL Normal 33.0-37.0 [facility] ([place]) Comment on above: Performed By: #### C BC, ADIFF, ANEU, BMP, MG #### [place] [address] #### GFR #### [address] [address] MCV (RBC) [Entitic vol] 92.1 fL Normal 80.0-94.0 A [facility] ([place] Comment on above: Performed By: #### C BC, ADIFF, ANEU, BMP, MG #### [place] [address] #### GFR #### [place] [address] Platelet 162 10 3/mcL Normal 130-400 [facility] ([place]) Comment on above: Performed By: #### C BC, ADIFF, ANEU, BMP, MG #### [place] [address] #### GFR #### [place] [address] Platelet mean volume (Bld) [Entitic vol] 7.8 fL Normal 7.4-10.4 [facility] ([place] Comment on above: Performed By: #### C BC, ADIFF, ANEU, BMP, MG #### [place] [address] #### GFR #### [place] [address] RBC 3.91 10 6/mcL Low 4.20-5.40 [facility] ([place] Comment on above: Performed By: #### C BC, ADIFF, ANEU, BMP, MG #### [place] [address] #### GFR #### [place] [address] WBC 6.10 10 3/mcL Normal 4.60-10.80 [facility] ([place]) Comment on above: Performed By: #### C BC, ADIFF, ANEU, BMP, MG #### [place] [address] #### GFR #### [place] [address] [id number] 09-29-2020 Date of Onset [id number] Invalid Interpretation Code [facility] ([place] Comment on above: Performed By: #### C BC, ADIFF, ANEU, BMP #### [address] [address] #### ALC, GFR #### [address] [address] Employed in Healthcare No [facility] ([place] Comment on above: Performed By: #### C BC, ADIFF, ANEU, BMP #### [address] [address] #### ALC, GFR #### [place] [address] First Test Unknown [facility] ([place] Comment on above: Performed By: #### C BC, ADIFF, ANEU, BMP #### [address] [address] #### ALC, GFR #### [place] [address] Hospitalized Yes [facility] ([place] Comment on above: Performed By: #### C BC, ADIFF, ANEU, BMP #### [address] [address] #### ALC, GFR #### [place] [address] ICU No [facility] ([place] Comment on above: Performed By: #### C BC, ADIFF, ANEU, BMP #### [address] [address] #### ALC, GFR #### [place] [address] Not [facility] ([place] Comment on above: Performed By: #### C BC, ADIFF, ANEU, BMP #### [address] [address] #### ALC, GFR #### [place] [address] Resides in Congregate Care Setting No [facility] ([place] Comment on above: Performed By: #### C [place] ME[place] ANEU, BMP #### [address] [address] #### ALC, GFR #### [place] [address] SARS-CoV-2 (COVID-19) RNA TONIO+probe Ql (Unsp spec) Negative Normal Negative [facility] ([place] Comment on above: Performed By: #### C [place] ME[place] ANEU, BMP #### [address] [address] #### ALC, GFR #### [place] [phone] [address] [place], [place] [id number] SARS-CoV-2 (COVID-19) RNA TONIO+probe Ql (Unsp spec) Normal [facility] ([place] Comment on above: Result Comment: Nega tive [...] #### C [place] ME[place] ANEU, BMP #### [address] [address] #### ALC, GFR #### [place] [id number] Symptomatic as Defined by [facility] No Normal [facility] ([place] Comment on above: Performed By: #### C BC, ADIFF, ANEU, BMP #### [address] [address] #### ALC, GFR #### [place] [address] MGon 09-29-2020 Magnesium [Mass/Vol] 1.3 mg/dL Low 1.8-2.4 [facility] ([place] Comment on above: Performed By: #### C BC, ADIFF, ANEU, BMP #### [place] [address] #### ALC, GFR #### [place] [address] TSHon 09-29-2020 TSH Qn 2.52 m[IU]/L Normal 0.36-3.74 [facility] ([place]) Comment on above: Performed By: #### A 1C #### [place] [address] #### TSH #### [place] [id number] UAon 09-29-2020 Color (U) Yellow Normal [facility] ([place] Comment on above: Performed By: #### C BC, ADIFF, ANEU, BMP #### [place] [address] #### ALC, GFR #### [place] [address] Glucose (U) [Mass/Vol] Negative Normal Negative [facility] ([place]) Comment on above: Performed By: #### C BC, ADIFF, ANEU, BMP #### [address] [address] #### ALC, GFR #### [place] [address] Ketones Ql (U) Negative Normal Negative [facility] ([place]) Comment on above: Performed By: #### C BC, ADIFF, ANEU, BMP #### [place] [address] #### ALC, GFR #### [address] [address] UA Appear Clear Normal Clear [facility] ([place] Comment on above: Performed By: #### C BC, ADIFF, ANEU, BMP #### [address] [address] #### ALC, GFR #### [address] [address] UA Blood Negative Normal Negative [facility] ([place] Comment on above: Performed By: #### C BC, ADIFF, ANEU, BMP #### [address] [address] #### ALC, GFR #### [address] [address] UA Leuk Est Negative Normal Negative [facility] ([place] Comment on above: Performed By: #### C BC, ADIFF, ANEU, BMP #### [address] [address] #### ALC, GFR #### [address] [address] UA Nitrite Negative Normal Negative [facility] ([place] Comment on above: Performed By: #### C BC, ADIFF, ANEU, BMP #### [address] [address] #### ALC, GFR #### [address] [address] UA pH 8.5 Abnormal 5.0 - 8.0 [facility] ([place] Comment on above: Performed By: #### C BC, ADIFF, ANEU, BMP #### [address] [address] #### ALC, GFR #### [address] [address] UA Protein 30 mg/dL Normal Negative [facility] ([place]) Comment on above: Performed By: #### C BC, ADIFF, ANEU, BMP #### [address] [address] #### ALC, GFR #### [place] [address] UA Spec Grav 1.020 Normal 1.015-1.025 [facility] ([place]) Comment on above: Performed By: #### C BC, ADIFF, ANEU, BMP #### [place] [address] #### ALC, GFR #### [place] [address] UA Specimen Type Clean Catch Normal [facility] ([place]) Comment on above: Performed By: #### C BC, ADIFF, ANEU, BMP #### [place] [address] #### ALC, GFR #### [place] [address] UA Urobilinogen 0.2 E.U./dL Normal 0.2-1.0 [facility] ([place] Comment on above: Performed By: #### C BC ADIFF, ANEU, BMP #### [place] [address] #### ALC, GFR #### [place] [address] Urobilinogen (U) [Mass/Vol] Negative Normal Negative [facility] ([place]) Comment on above: Performed By: #### C BC ADIFF, ANEU, BMP #### [place] [address] #### ALC, GFR #### [place] [address] .Auto Diffon 09-28-2020 Basophil, Absolute 0.00 10 3/mcL Normal 0.00-0.19 [facility] ([place] Comment on above: Performed By: #### C BC, ADIFF, ANEU, BMP #### [place] [address] #### ALC, GFR #### [place] [address] Basophils/100 WBC (Bld) 0.2 % Normal 0.0-2.5 A [facility] ([place] Comment on above: Performed By: #### C BC, ADIFF, ANEU, BMP #### [address] [address] #### ALC, GFR #### [address] [address] Eosinophil, Absolute 0.00 10 3/mcL Normal 0.00-0.40 A [facility] ([place] Comment on above: Performed By: #### C BC, ADIFF, ANEU, BMP #### [place] [address] #### ALC, GFR #### [address] [address] Eosinophils/100 WBC (Bld) 0.2 % Normal 0.0-7.0 [facility] ([place] Comment on above: Performed By: #### C BC, ADIFF, ANEU, BMP #### [place] [address] #### ALC, GFR #### [address] [address] Lymphocyte, Absolute 1.00 10 3/mcL Normal 0.77-3.85 A [facility] ([place] Comment on above: Performed By: #### C BC, ADIFF, ANEU, BMP #### [place] [address] #### ALC, GFR #### [address] [address] Lymphocytes/100 WBC (Bld) 16.6 % Normal 10.0-50.0 [facility] ([place] Comment on above: Performed By: #### C BC, ADIFF, ANEU, BMP #### [place] [address] #### ALC, GFR #### [address] [address] Monocyte, Absolute 0.50 10 3/mcL Normal 0.15-1.00 [facility] ([place] Comment on above: Performed By: #### C BC, ADIFF, ANEU, BMP #### [address] [address] #### ALC, GFR #### [address] [address] Monocytes/100 WBC (Bld) 7.8 % Normal 1.7-13.0 A [facility] ([place] Comment on above: Performed By: #### C BC, ADIFF, ANEU, BMP #### [address] [address] #### ALC, GFR #### [address] [address] Neutrophils/100 WBC (Bld) 75.2 % Normal 37.0-80.0 [facility] ([place]) Comment on above: Performed By: #### C BC, ADIFF, ANEU, BMP #### [address] [address] #### ALC, GFR #### [address] [address] .GFRon 09-28-2020 GFR Non- 56 ml/min/1.73sqm Normal [facility] ([place]) Comment on above: Result Comment: GFR [...] #### C BC, ADIFF, ANEU, BMP #### [address] [address] #### ALC, GFR #### [address] [address] GFR 68 ml/min/1.73sqm Normal [facility] ([place]) Comment on above: Result Comment: GFR [...] #### C BC, ADIFF, ANEU, BMP #### [place] [address] #### ALC, GFR #### [address] [address] .NEUABSon 09-28-2020 Neutrophil, Absolute 4.40 10 3/mcL Normal 2.85-6.16 A [facility] ([place] Comment on above: Performed By: #### C BC ADIFF, ANEU, BMP #### [place] [address] #### ALC, GFR #### [place] [address] Juan 09-28-2020 Ethanol Level <3 Normal 0-3 [facility] ([place] Comment on above: Performed By: #### C BC, ADIFF, ANEU, BMP #### [place] [address] #### ALC, GFR #### [address] 09-28-2020 BUN/Creatinine Ratio 16 ratio Normal 7-27 [facility] ([place] Comment on above: Performed By: #### C BC, ADIFF, ANEU, BMP #### [place] [address] #### ALC, GFR #### [address] [address] Calcium [Mass/Vol] 9.6 mg/dL Normal 8.4-10.2 [facility] [place]: Performed By: #### C BC, ADIFF, ANEU, BMP #### [address] [address] #### ALC, GFR #### [address] [address] Chloride [Moles/Vol] 95 mmol/L Low 98-107 [facility] ([place]) Comment on above: Performed By: #### C BC, ADIFF, ANEU, BMP #### [address] [address] #### ALC, GFR #### [address] [address] CO2 [Moles/Vol] 32 mmol/L High 23-31 [facility] ([place]) Comment on above: Performed By: #### C BC, ADIFF, ANEU, BMP #### [address] [address] #### ALC, GFR #### [address] [address] Creatinine [Mass/Vol] 1.00 mg/dL Normal 0.55-1.02 [facility] ([place] Comment on above: Performed By: #### C BC, ADIFF, ANEU, BMP #### [address] [address] #### ALC, GFR #### [address] [address] Electrolyte Balance 11.0 mEq/L Normal [facility] ([place] Comment on above: Performed By: #### C BC, ADIFF, ANEU, BMP #### [address] [address] #### ALC, GFR #### [address] [address] Glucose [Mass/Vol] 214 mg/dL High 80-115 [facility] [place]: Performed By: #### C BC, ADIFF, ANEU, BMP #### [address] [address] #### ALC, GFR #### [address] [address] Potassium [Moles/Vol] 3.0 mmol/L Low 3.5-5.1 [facility] ([place] Comment on above: Performed By: #### C BC, ADIFF, ANEU, BMP #### [address] [address] #### ALC, GFR #### [address] [address] Sodium [Moles/Vol] 138 mmol/L Normal 136-145 [facility] [place] Comment [place]: Performed By: #### C BC, ADIFF, ANEU, BMP #### [address] [address] #### ALC, GFR #### [address] [address] Urea nitrogen [Mass/Vol] 16 mg/dL Normal 7-18 [facility] ([place]) Comment on above: Performed By: #### C BC, ADIFF, ANEU, BMP #### [place] [address] #### ALC, GFR #### [address] [address] CBCon 09-28-2020 Erythrocyte distribution width (RBC) [Ratio] 16.7 % High 11.5-14.5 [facility] ([place]) Comment on above: Performed By: #### C BC, ADIFF, ANEU, BMP #### [address] [address] #### ALC, GFR #### [address] [address] Hematocrit (Bld) [Volume fraction] 38.6 % Normal 37.0-47.0 [facility] ([place] Comment on above: Performed By: #### C BC, ADIFF, ANEU, BMP #### [place] [id number] #### ALC, GFR #### [address] [address] Hgb 13.0 G/dL Normal 12.0-16.0 [facility] ([place] Comment on above: Performed By: #### C BC, ADIFF, ANEU, BMP #### [place] [address] #### ALC, GFR #### [place] [address] MCH (RBC) [Entitic mass] 31.2 pg Normal 27.0-31.2 [facility] ([place] Comment on above: Performed By: #### C BC, ADIFF, ANEU, BMP #### [place] [address] #### ALC, GFR #### [place] [address] MCHC 33.8 G/dL Normal 33.0-37.0 [facility] ([place]) Comment on above: Performed By: #### C BC, ADIFF, ANEU, BMP #### [place] [address] #### ALC, GFR #### [place] [address] MCV (RBC) [Entitic vol] 92.3 fL Normal 80.0-94.0 A [facility] ([place]) Comment on above: Performed By: #### C BC, ADIFF, ANEU, BMP #### [place] [address] #### ALC, GFR #### [place] [address] Platelet 172 10 3/mcL Normal 130-400 [facility] ([place]) Comment on above: Performed By: #### C BC, ADIFF, ANEU, BMP #### [place] [address] #### ALC, GFR #### [place] [address] Platelet mean volume (Bld) [Entitic vol] 6.9 fL Low 7.4-10.4 [facility] ([place]) Comment on above: Performed By: #### C BC, ADSKY, ANEU, BMP #### [place] [address] #### ALC, GFR #### [place] [address] RBC 4.18 10 6/mcL Low 4.20-5.40 [facility] ([place] Comment on above: Performed By: #### C BC, ADIFF, ANEU, BMP #### [place] [address] #### ALC, GFR #### [place] [address] WBC 5.90 10 3/mcL Normal 4.60-10.80 [facility] ([place] Comment on above: Performed By: #### C BC, ADSKY, ANEU, BMP #### [place] [address] #### ALC, GFR #### [place] [address] TOXSCon 09-28-2020 U Ampheta (AO) Negative [facility] ([place] Comment on above: Performed By: #### T OXSC #### [address] [address] U Dee (AO) Negative [facility] ([place] Comment on above: Performed By: #### T OXSC #### [place] [address] [address] U Maverick (AO) Negative [facility] ([place] Comment on above: Performed By: #### T OXSC #### [place] [address] [address] U Cannab (AO) Negative [facility] ([place] Comment on above: Performed By: #### T OXSC #### [address] [address] U Cocaine (AO) Negative [facility] ([place] Comment on above: Performed By: #### T OXSC #### [place] [address] [place], [place] [address] U Methadone (AO) Negative Normal [facility] ([place] Comment on above: Performed By: #### T OXSC #### [place] [address] [place] [address] U PCP (AO) Negative Normal [facility] ([place] Comment on above: Performed By: #### T OXSC #### [place] [address] [address] U TCA (AO) Negative Normal [facility] ([place] Comment on above: Performed By: #### T OXSC #### [place] [address] [address] Urine Opiates (AO) Negative [facility] [place] Comment on above: Performed By: #### T OXSC #### [place] [address] [address] CBC and Differentialon 06-05 Abs Baso 0.03 k/uL Normal <0.11 [facility] Comment on above: Performed By: #### C BCDIF, VPA, CMP #### [facility] [address] [place], [place] [address] Abs Hitchcock 0.61 k/uL Normal <0.87 [facility] Comment on above: Performed By: #### C BCDIF, VPA, CMP #### [facility] [address] [place], [place] [id number] Abs Neut 2.42 k/uL Normal 1.45-7.50 [facility] Comment on above: Performed By: #### C BCDIF, VPA, CMP #### [facility] [address] [place], [place] [address] Absolute nRBC <0.01 Normal <0.01 [facility] Comment on above: Performed By: #### C BCDIF, VPA, CMP #### [facility] [address] [place], [place] [address] Basophils/100 WBC (Bld) 0.5 % Normal C [facility] Comment on above: Performed By: #### C BCDIF, VPA, CMP #### [facility] [address] [place], [place] [address] DTYPE ADIFF Normal [facility] Comment on above: Performed By: #### C BCDIF, VPA, CMP #### [facility] [address] [place] [address] Eosinophils (Bld) [#/Vol] 0.16 10*3/uL Normal <0.46 [facility] Comment on above: Performed By: #### C BCDIF, VPA, CMP #### [facility] [address] [place] [address] Eosinophils/100 WBC (Bld) 2.8 % Normal [facility] Comment on above: Performed By: #### C BCDIF, VPA, CMP #### [facility] [address] [place] [address] Erythrocyte distribution width (RBC) [Ratio] 13.0 % Normal 11.5-15.0 [facility] Comment on above: Performed By: #### C BCDIF, VPA, CMP #### [facility] [address] [place] [id number] Hematocrit (Bld) [Volume fraction] 42.3 % Normal 36.0-46.0 [facility] Comment on above: Performed By: #### C BCDIF, VPA, CMP #### [facility] [address] [place] [address] Hemoglobin (Bld) [Mass/Vol] 13.7 g/dL Normal 11.5-15.5 [facility] Comment on above: Performed By: #### C BCDIF, VPA, CMP #### [facility] [address] [place], [place] [address] Lymphocytes (Bld) [#/Vol] 2.41 10*3/uL Normal 1.00-4.00 [facility] Comment on above: Performed By: #### C BCDIF, VPA, CMP #### [facility] [address] [place], [place] [address] Lymphocytes/100 WBC (Bld) 42.7 % Normal [facility] Comment on above: Performed By: #### C BCDIF, VPA, CMP #### [facility] [address] [place], [place] [address] MCH (RBC) [Entitic mass] 33.4 pG Normal 26.0-34.0 [facility] Comment on above: Performed By: #### C BCDIF, VPA, CMP #### [facility] [address] [place], [place] [address] MCHC (RBC) [Mass/Vol] 32.4 g/dL Normal 30.5-36.0 [facility] [place] [facility] Comment on above: Performed By: #### C BCDIF, VPA, CMP #### [facility] [address] [place], [place] [address] MCV (RBC) [Entitic vol] 103.2 fL High 80.0-100.0 [facility] Comment on above: Performed By: #### C BCDIF, VPA, CMP #### [facility] [address] [place], [place] [address] Monocytes/100 WBC (Bld) 10.8 % Normal [facility] Comment on above: Performed By: #### C BCDIF, VPA, CMP #### [facility] [address] [place], [place] [address] Neutrophils/100 WBC (Bld) 43.2 % Normal [facility] Comment on above: Performed By: #### C BCDIF, VPA, CMP #### [facility] [address] [place], [place] [address] NRBCs 0.0 /100 WBC Normal 0 [facility] Comment on above: Performed By: #### C BCDIF, VPA, CMP #### [facility] [address] [place], [place] [address] Platelet mean volume (Bld) [Entitic vol] 10.0 fL Normal 9.0-12.7 [facility] Comment on above: Performed By: #### C BCDIF, VPA, CMP #### [facility] [address] [place], [place] [address] Platelets (Bld) [#/Vol] 215 10*3/uL Normal 150-400 [facility] Comment on above: Performed By: #### C BCDIF, VPA, CMP #### [facility] [address] [place] [address] RBC (Bld) [#/Vol] 4.10 10*6/uL Normal 3.90-5.20 [facility] Comment on above: Performed By: #### C BCDIF, VPA, CMP #### [facility] [address] [place], [place] [address] WBC (Bld) [#/Vol] 5.64 10*3/uL Normal 3.70-11.00 [facility] Comment on above: Performed By: #### C BCDIF, VPA, CMP #### [facility] [address] [place] [address] Comp Metabolic Panelon 06-05 ALT [Catalytic activity/Vol] Low 7-38 [facility] Comment on above: Result Comment: <5 R esult rechecked. Performed By: #### C BCDIF, VPA, CMP #### [facility] [address] [place] [address] Albumin [Mass/Vol] 3.8 g/dL Low 3.9-4.9 [facility] Comment on above: Performed By: #### C BCDIF, VPA, CMP #### [facility] [address] [place], [place] [address] ALP [Catalytic activity/Vol] 68 U/L Normal 34-123 [facility] Comment on above: Performed By: #### C BCDIF, VPA, CMP #### [facility] [address] [place], [place] [address] Anion gap [Moles/Vol] 14 mmol/L Normal 9-18 [facility] [place] [facility] Comment on above: Performed By: #### C BCDIF, VPA, CMP #### [facility] [address] [place], [place] [address] AST [Catalytic activity/Vol] 12 U/L Low 13-35 [facility] Comment on above: Performed By: #### C BCDIF, VPA, CMP #### [facility] [address] [place], [place] [address] Bilirubin Ql (U) 0.2 mg/dL Normal 0.2-1.3 [facility] Comment on above: Performed By: #### C BCDIF, VPA, CMP #### [facility] [address] [place], [place] [address] Calcium [Mass/Vol] 9.4 mg/dL Normal 8.5-10.2 [facility] Comment on above: Performed By: #### C BCDIF, VPA, CMP #### [facility] [address] [place], [place] [address] Chloride [Moles/Vol] 105 mmol/L Normal 97-105 [facility] Comment on above: Performed By: #### C BCDIF, VPA, CMP #### [facility] [address] [place], [place] [address] CO2 [Moles/Vol] 23 mmol/L Normal 22-30 [facility] Comment on above: Performed By: #### C BCDIF, VPA, CMP #### [facility] [address] [place], [place] [address] Creatinine [Mass/Vol] 0.97 mg/dL High 0.58-0.96 [facility] [place] [facility] Comment on above: Performed By: #### C BCDIF, VPA, CMP #### [facility] [address] [place], [place] [address] eGFR- Amer. >60 Normal [facility] Comment on above: Performed By: #### C BCDIF, VPA, CMP #### [facility] [address] [place], [place] [address] GFR/1.73 sq M predicted among non-blacks MDRD (S/P/Bld) [Vol rate/Area] 59 . Normal [facility] Comment on above: Performed By: #### C BCDIF, VPA, CMP #### [facility] [address] [place], [place] [address] Glucose [Mass/Vol] 98 mg/dL Normal 74-99 [facility] Comment on above: Performed By: #### C BCDIF, VPA, CMP #### [facility] [address] [place], [place] [address] Potassium [Moles/Vol] 3.7 mmol/L Normal 3.7-5.1 [facility] [place] [facility] Comment on above: Performed By: #### C BCDIF, VPA, CMP #### [facility] [address] [place], [place] [address] Protein [Mass/Vol] 6.9 g/dL Normal 6.3-8.0 [facility] Comment on above: Performed By: #### C BCDIF, VPA, CMP #### [facility] [address] [place], [place] [address] Sodium [Moles/Vol] 142 mmol/L Normal 136-144 [facility] Comment on above: Performed By: #### C BCDIF, VPA, CMP #### [facility] [address] [place], [place] [address] Urea nitrogen [Mass/Vol] 22 mg/dL High 7-21 [facility] Comment on above: Performed By: #### C BCDIF, VPA, CMP #### [facility] [address] [place] [address] Valproic Acidon 06-05-2019 Valproic Acid 78.6 ug/mL Normal 50-100 [facility] Comment on above: Performed By: #### C BCDIF, VPA, CMP #### [facility] [address] [place] [address] Valproic Acidon 09-07-2018 Valproic Acid 47.3 ug/mL Low 50-100 [facility] Comment on above: Performed By: #### V PA #### [facility] [address] [place] [id number] Vital Signs Date Time Vital Sign Value Performing Clinician Facility 08-29-2024 14:11-0400 Body temperature 98.1 [degF] Dr. Naye Sheets MD Work Phone: [facility] 08-29-2024 14:11-0400 Diastolic blood pressure 73 mm[Hg] Dr. Naye Sheets MD Work Phone: [facility] 08-29-2024 14:11-0400 Heart rate 86 /min Dr. Naye Sheets MD Work Phone: [facility] 08-29-2024 14:11-0400 Respiratory rate 18 /min Dr. Naye Sheets MD Work Phone: [facility] 08-29-2024 14:11-0400 SaO2% (BldA) [Mass fraction] 98 % Dr. Naye Sheest MD Work Phone: 9(653)362-245415 [place] [address] 08-29-2024 14:11-0400 Systolic blood pressure 103 mm[Hg] Dr. Naye Sheets MD Work Phone: 3(210)566-860415 [place] [address] 08-29-2024 05:27-0400 Body mass index (BMI) [Ratio] 26.7 kg/m2 Dr. Naye Sheets MD Work Phone: 6(278)637-662515 [place] [address] 08-29-2024 05:27-0400 Body weight 89.[address] Naye Sheets MD Work Phone: 3(100)091-115815 [place] [address] 08-28-2024 12:59-0400 Body height 182.[address] Naye Sheets MD Work Phone: 5(908)174-868515 [place] [address] 08-26-2024 20:00-0400 Diastolic blood pressure 74 mm[Hg] Dr. Naye Sheets MD Work Phone: 1(147)754-344215 [place] [address] 08-26-2024 20:00-0400 Heart rate 113 /min Dr. Naye Sheets MD Work Phone: 1(725)675-220715 [place] [address] 08-26-2024 20:00-0400 Respiratory rate 27 /min Dr. Naye Sheets MD Work Phone: 4(808)980-805715 [place] [address] 08-26-2024 20:00-0400 SaO2% (BldA) [Mass fraction] 99 % Dr. Naye Sheets MD Work Phone: 2(836)090-326015 [place] [address] 08-26-2024 20:00-0400 Systolic blood pressure 145 mm[Hg] Dr. Naye Sheets MD Work Phone: 9(448)468-476315 [place] [address] 08-26-2024 19:01-0400 Body temperature 98.5 [degF] Dr. Naye Sheets MD Work Phone: 0(690)220-080515 [place] [address] 08-26-2024 14:11-0400 Body height 182.[address] Naye Sheets MD Work Phone: 9(874)636-230815 [place] [address] 08-26-2024 14:11-0400 Body mass index (BMI) [Ratio] 25.4 kg/m2 Dr. Naye Sheets MD Work Phone: 6(797)108-402915 [place] [address] 08-26-2024 14:11-0400 Body weight 85.[address] Naye Sheets MD Work Phone: 9(717)819-874115 [place] [address] 07-23-2024 12:44-0400 Body mass index (BMI) [Ratio] 25.6 kg/m2 Dr. Naye Sheets MD Work Phone: 9(092)966-930315 [place] [address] 07-23-2024 12:44-0400 Body temperature 98.4 [degF] Dr. Naye Sheets MD Work Phone: 9(666)939-799215 [place] [address] 07-23-2024 12:44-0400 Body weight 85.[address] Naye Sheets MD Work Phone: 8(175)831-586715 [place] [address] 07-23-2024 12:44-0400 Diastolic blood pressure 87 mm[Hg] Dr. Naye Sheets MD Work Phone: 5(006)713-025215 [place] [address] 07-23-2024 12:44-0400 Heart rate 97 /min Dr. Naye Sheets MD Work Phone: 5(859)998-323815 [place] [address] 07-23-2024 12:44-0400 Respiratory rate 16 /min Dr. Naye Sheets MD Work Phone: 3(199)166-676915 [place] [address] 07-23-2024 12:44-0400 SaO2% (BldA) [Mass fraction] 96 % Dr. Naye Sheets MD Work Phone: 5(339)999-460615 [place] [address] 07-23-2024 12:44-0400 Systolic blood pressure 150 mm[Hg] Dr. Naye Sheets MD Work Phone: 2(917)324-621015 [place] [address] 06-13-2024 23:43-0500 Diastolic blood pressure 54 mm[Hg] Dr. Naye Sheets MD Work Phone: 5(386)476-084915 [place] [address] 06-13-2024 23:43-0500 Heart rate 65 /min Dr. Naye Sheets MD Work Phone: 1(471)980-421615 [place] [address] 06-13-2024 23:43-0500 Respiratory rate 18 /min Dr. Naye Sheets MD Work Phone: 3(890)142-230015 [place] [address] 06-13-2024 23:43-0500 SaO2% (BldA) [Mass fraction] 100 % Dr. Naye Sheets MD Work Phone: [facility] 06-13-2024 23:43-0500 Systolic blood pressure 70 mm[Hg] Dr. Naye Sheets MD Work Phone: [facility] 06-13-2024 23:25-0500 Body temperature 96.3 [degF] Dr. Naye Sheets MD Work Phone: [facility] 06-13-2024 22:40-0500 Inhaled oxygen concentration 100 % Dr. Naye Sheets MD Work Phone: [facility] 06-13-2024 15:45-0500 Body mass index (BMI) [Ratio] 22 kg/m2 Dr. Naye Sheets MD Work Phone: [facility] 06-13-2024 15:45-0500 Body weight 73.[address] Naey Sheets MD Work Phone: [facility] 11-15-2022 17:04-0400 Diastolic blood pressure 99 mm[Hg] [facility] 11-15-2022 17:04-0400 Heart rate 75 /min [facility] 11-15-2022 17:04-0400 Respiratory rate 18 /min [facility] 11-15-2022 17:04-0400 SaO2% (BldA) [Mass fraction] 96 % [facility] 11-15-2022 17:04-0400 Systolic blood pressure 149 mm[Hg] [facility] 11-15-2022 13:58-0400 Body mass index (BMI) [Ratio] 24.7 kg/m2 [facility] 11-15-2022 13:58-0400 Body weight 82.6 kg [facility] 11-15-2022 13:25-0400 Body height 182.88 cm [facility] 11-15-2022 13:25-0400 Body temperature 96.3 [degF] [facility] 10-13-2022 09:04-0400 Body height 180.3 cm Naye Sheets MD Work Phone: [facility] 10-13-2022 09:04-0400 Body temperature 98.49 [degF] Naye Sheets MD Work Phone: [facility] 10-13-2022 09:04-0400 Body weight 87.18 kg Naye Sheets MD Work Phone: [facility] 10-13-2022 09:04-0400 Diastolic blood pressure 80 mm[Hg] Naye Sheets MD Work Phone: [facility] 10-13-2022 09:04-0400 Heart rate 87 /min Naye Sheets MD Work Phone: [facility] 10-13-2022 09:04-0400 SaO2% (BldA) [Mass fraction] 97 % Naye Sheets MD Work Phone: [facility] 10-13-2022 09:04-0400 Systolic blood pressure 120 mm[Hg] Naye Sheets MD Work Phone: [facility] 08-09-2022 09:50-0400 Diastolic blood pressure 80 mm[Hg] Naye Sheets MD Work Phone: [facility] 08-09-2022 09:50-0400 Systolic blood pressure 120 mm[Hg] Naye Sheets MD Work Phone: [facility] 08-09-2022 09:16-0400 Body height 180.3 cm Naye Sheets MD Work Phone: [facility] 08-09-2022 09:16-0400 Body weight 84.37 kg Naye Sheets MD Work Phone: [facility] 08-09-2022 09:16-0400 Heart rate 120 /min Naye Sheets MD Work Phone: [facility] 08-09-2022 09:16-0400 SaO2% (BldA) [Mass fraction] 97 % Naye Sheets MD Work Phone: [facility] 06-20-2022 09:45-0500 Body height 182.88 cm Naye Sheets [facility] 06-20-2022 09:45-0500 Body mass index (BMI) [Ratio] 25.6 kg/m2 [facility] [place] 06-20-2022 09:45-0500 Body temperature 97.1 [degF] [facility] 06-20-2022 09:45-0500 Body weight 85.72 kg [facility] 06-20-2022 09:45-0500 Diastolic blood pressure 76 mm[Hg] [facility] [place] 06-20-2022 09:45-0500 Heart rate 87 /min [facility] 06-20-2022 09:45-0500 Respiratory rate 14 /min [facility] 06-20-2022 09:45-0500 SaO2% (BldA) [Mass fraction] 100 % [facility] [place] 06-20-2022 09:45-0500 Systolic blood pressure 113 mm[Hg] [facility] [place] 06-17-2022 04:42-0500 Body temperature 98.4 [degF] [facility] 06-17-2022 04:42-0500 Diastolic blood pressure 76 mm[Hg] [facility] [place] 06-17-2022 04:42-0500 Heart rate 80 /min [facility] 06-17-2022 04:42-0500 Respiratory rate 18 /min [facility] 06-17-2022 04:42-0500 SaO2% (BldA) [Mass fraction] 100 % [facility] [place] 06-17-2022 04:42-0500 Systolic blood pressure 137 mm[Hg] [facility] [place] 06-10-2022 20:45-0500 Body height 182.88 cm [facility] 06-10-2022 20:45-0500 Body mass index (BMI) [Ratio] 24.1 kg/m2 [facility] [place] 06-10-2022 20:45-0500 Body weight 80.73 kg [facility] 06-10-2022 19:29-0500 Body temperature 98.3 [degF] [facility] 06-10-2022 19:29-0500 Diastolic blood pressure 76 mm[Hg] [facility] 06-10-2022 19:29-0500 Heart rate 79 /min [facility] 06-10-2022 19:29-0500 Respiratory rate 18 /min [facility] 06-10-2022 19:29-0500 SaO2% (BldA) [Mass fraction] 100 % [facility] 06-10-2022 19:29-0500 Systolic blood pressure 178 mm[Hg] [facility] 06-10-2022 15:19-0500 Body height 182.88 cm [facility] 06-10-2022 15:19-0500 Body mass index (BMI) [Ratio] 24.4 kg/m2 [facility] 06-10-2022 15:19-0500 Body weight 81.64 kg [facility] 04-24-2022 14:10-0500 Body weight 86.18 kg Meenakshi Baker [employer] Work Phone: [facility] 04-24-2022 14:10-0500 Diastolic blood pressure 82 mm[Hg] Meenakshi Haagen [employer] Work Phone: [facility] 04-24-2022 14:10-0500 Heart rate 94 /min Meenakshi Haagen [employer] Work Phone: [facility] 04-24-2022 14:10-0500 Respiratory rate 18 /min Meenakshi Haagen [employer] Work Phone: [facility] 04-24-2022 14:10-0500 SaO2% (BldA) [Mass fraction] 98 % Meenakshi Hasho [employer] Work Phone: [facility] 04-24-2022 14:10-0500 Systolic blood pressure 122 mm[Hg] Meenakshi Haagen [employer] Work Phone: [facility] 11-23-2021 15:56-0400 Body weight 79.83 kg Naye Sheets MD Work Phone: [facility] 11-23-2021 15:56-0400 Diastolic blood pressure 78 mm[Hg] Naye Sehets MD Work Phone: [facility] 11-23-2021 15:56-0400 Heart rate 88 /min Naye Sheets MD Work Phone: [facility] 11-23-2021 15:56-0400 Systolic blood pressure 136 mm[Hg] Naye Sheets MD Work Phone: [facility] 11-10-2021 13:27-0400 Body temperature 98.91 [degF] Bronwyn Lundy [employer] Work Phone: [facility] 11-10-2021 13:27-0400 Body weight 80.74 kg Bronwyn Lundy [employer] Work Phone: [facility] 11-10-2021 13:27-0400 Diastolic blood pressure 80 mm[Hg] Bronwyn Lundy [employer] Work Phone: [facility] 11-10-2021 13:27-0400 Heart rate 85 /min Bronwyn Lundy [employer] Work Phone: [facility] 11-10-2021 13:27-0400 Respiratory rate 18 /min Bronwyn Lundy [employer] Work Phone: [facility] 11-10-2021 13:27-0400 SaO2% (BldA) [Mass fraction] 97 % Bronwyn Lundy [employer] Work Phone: [facility] 11-10-2021 13:27-0400 Systolic blood pressure 122 mm[Hg] Bronwyn Lundy [employer] Work Phone: [facility] 10-03-2021 18:27-0400 Body temperature 98.29 [degF] Sarita Christa [employer] Work Phone: [facility] 10-03-2021 18:27-0400 Body weight 82.64 kg Sarita Christa [employer] Work Phone: [facility] 10-03-2021 18:27-0400 Diastolic blood pressure 68 mm[Hg] Sarita Christa [employer] Work Phone: [facility] 10-03-2021 18:27-0400 Heart rate 70 /min Sarita Christa [employer] Work Phone: [facility] 10-03-2021 18:27-0400 Respiratory rate 16 /min Sarita Christa [employer] Work Phone: [facility] 10-03-2021 18:27-0400 SaO2% (BldA) [Mass fraction] 99 % Sarita Christa [employer] Work Phone: [facility] 10-03-2021 18:27-0400 Systolic blood pressure 118 mm[Hg] Sarita Christa [employer] Work Phone: [facility] 08-05-2021 08:11-0400 Body temperature 98.91 [degF] Naye Sheets MD Work Phone: [facility] 08-05-2021 08:11-0400 Body weight 81.65 kg Naye Sheets MD Work Phone: [facility] 08-05-2021 08:11-0400 Diastolic blood pressure 70 mm[Hg] Naye Sheets MD Work Phone: [facility] 08-05-2021 08:11-0400 Heart rate 100 /min Naye Sheets MD Work Phone: [facility] 08-05-2021 08:11-0400 Respiratory rate 16 /min Naye Sheets MD Work Phone: [facility] 08-05-2021 08:11-0400 Systolic blood pressure 110 mm[Hg] Naye Sheets MD Work Phone: [facility] Encounters Encounter Date Encounter Type Care Provider Facility Start: 10-20-2024 ambulatory [facility] Facility:[facility] Start: 10-10-2024 ambulatory [facility] Facility:[facility] Start: 10-03-2024 ambulatory [facility] Facility:[facility] Start: 10-02-2024 ambulatory Fermin Reyes y:BMS Start: 10-02-2024 End: 10-03-2024 Evaluation and management of inpatient No Primary Care Physician Facility:[facility] Start: 08-29-2024 Non-patient / Non-visit Dr. Madison Lopez MD -[facility] Work Phone: Start: 08-28-2024 ambulatory Jerry Lopez [place] [facility] Start: 08-28-2024 Non-patient / Non-visit Troy Wiley nd, DO -[facility] Start: 08-28-2024 Non-patient / Non-visit Dr. Jake GASTON -[facility] Work Phone: Start: 08-28-2024 End: 08-28-2024 ambulatory Jose Hsieh [place] [place] Start: 08-27-2024 Non-patient / Non-visit Dr. Jake GASTON -[facility] Work Phone: Start: 08-26-2024 ambulatory Tiff Ramires Facility :[facility] Start: 08-26-2024 End: 08-29-2024 Evaluation and management of inpatient Dr. Tiff Ramires MD -Medical Surgical 2 Work Phone: Start: 08-20-2024 End: 08-20-2024 Telephone encounter Naye Sheets MD Work Phone: Family [facility] Comment on above: FYI-No Action Needed reschedule appt from snf visit Start: 08-19-2024 End: 09-19-2024 ambulatory Naye Sheets MD Work Phone: Family [facility] Start: 07-30-2024 End: 08-06-2024 Telephone encounter Naye Sheets MD Work Phone: Family [facility] Comment on above: Patient Update Start: 07-29-2024 End: 07-30-2024 Telephone encounter Dianne FRANCOIS Navigation Comment on above: Patient Update Start: 07-28-2024 End: 07-28-2024 Telephone encounter Naye Sheets MD Work Phone: [facility] Comment on above: FYI-No Action Needed Start: 07-23-2024 End: 07-23-[address] Jerry Lopez MD -[facility] Work Phone: Start: 07-23-2024 End: 07-23-2024 [...] 06-28-2024 Evaluation and management of inpatient [facility] Facility:[facility] Start: 06-13-2024 End: 06-14-2024 Emergency department patient visit Dr. Jose Rodriguez MD -Emergency Department Work Phone: Start: 06-13-2024 End: 06-19-2024 ambulatory Chidi Abad [employer] Work Phone: Critical Care Start: 06-13-2024 End: 06-19-2024 Telephone encounter Dianne FRANCOIS Navigation Comment on above: Patient Update Start: 05-19-2024 End: 05-19-2024 ambulatory Naye Sheets MD Work Phone: [facility] [place] Comment on above: NO SHOW (Primary Dx) Start: 05-19-2024 End: 05-19-2024 Telemedicine consultation with patient Naye Sheets MD Work Phone: [facility] [place] Start: 04-21-2024 End: 04-21-2024 [facility]ulatory [facility] [place] Start: 04-21-2024 End: 04-21-2024 Patient encounter procedure Andry Richardson MA [facility] Comment on above: Population Health Na vigation Outreach ([facility] [place] [facility] /) Start: 03-20-2024 End: 03-20-2024 Telephone encounter Naye Sheets MD Work Phone: [address] [place] [address] Comment on above: Patient Update Start: 03-12-2024 End: 03-12-2024 Telephone encounter Naye Sheets MD Work Phone: [facility] [place] Comment on above: Appointment Start: 02-18-2024 End: 02-18-2024 Telephone encounter Naye Sheets MD Work Phone: [facility] [place] Comment on above: Forms Start: 02-14-2024 End: 02-14-2024 Telephone encounter Naye Sheets MD Work Phone: [facility] [place] Comment on above: Letter (No show amaris er #2) Start: 02-11-2024 End: 02-11-2024 Telephone encounter Naye Sheets MD Work Phone: [facility] [place] Comment on above: Letter (No show amaris er #1) Start: 02-10-2024 End: 02-11-2024 Refill Naye Sheets MD Work Phone: [facility] [place] Comment on above: Med Change Request Start: 02-01-2024 End: 02-01-2024 ambulatory [facility]ilar [facility] [place] Start: 02-01-2024 End: 02-01-2024 Patient encounter procedure Elida Aguilar [facility] [place] Comment on above: Population Health Na vigation Outreach (Jeny Work - [place] [facility]) Start: 01-24-2024 End: 01-28-2024 Telephone encounter Dianne FRANCOIS Navigation Comment on above: Patient Update Start: 12-03-2023 ambulatory Elida grijalva MA [facility] Start: 12-03-2023 Patient encounter procedure Elida Aguilar MA [facility] Comment on above: Population Health Na vigation Outreach ([facility] - [place] [facility] ) Start: 10-02-2023 ambulatory [facility]io [facility] Start: 10-02-2023 Patient encounter procedure Monica Valerio MA [facility] Comment on above: Population Health Na vigation Outreach ([place] [facility]/HCC and care gaps ) Start: 09-21-2023 Telephone encounter Naye Sheets MD Work Phone: [facility] Comment on above: Patient Update Start: 09-19-2023 ambulatory Naye Sheets MD Work Phone: [facility] [place] Start: 03-19-2023 Telephone encounter Naye Sheets MD Work Phone: [facility] Comment on above: Orders Start: 03-02-2023 Refill Naye Sheets MD Work Phone: [facility] Comment on above: Refill Request Start: 11-30-2022 Orders Only Kristina manning MD Work Phone: Ambulatory Surgery Comment on above: Anemia, unspecified type (Primary Dx) Start: 11-15-2022 End: 11-15-2022 Emergency department patient visit [facility]Emergency Department Work Phone: Start: 11-08-2022 End: 11-08-2022 Nursing evaluation of patient and report Mi Nurse Work Phone: [facility] Comment on above: Vitamin B12 deficien cy (Primary Dx) Start: 10-13-2022 End: 10-13-2022 Subsequent hospital visit by physician Xr [facility] Work Phone: Radiology Comment on above: Bronchitis [J40] Start: 10-13-2022 End: 10-13-2022 Patient encounter procedure Naye Sheets MD Work Phone: [facility] Comment on above: Bronchitis (Primary Dx); Screening for malignant neoplasm of cervix; Encounter for screening mammogram for malignant neoplasm of breast Start: 08-31-2022 End: 08-31-2022 ambulatory [facility] Work Phone: Start: 08-31-2022 End: 08-31-2022 Discharged Recurring [facility]-Physical Therapy Start: 08-22-2022 ambulatory NAYE SHEETS Facility :[facility] Start: 08-22-2022 End: 08-22-2022 Subsequent hospital visit by physician [facility] 2 Work Phone: Radiology Comment on above: Arm mass, left [R22. 32] Start: 08-14-2022 Telephone encounter Naye Sheets MD Work Phone: [facility] Comment on above: Results Start: 08-11-2022 End: 08-11-2022 [facility] Comment on above: Effusion of left elb ow [M25.422] Start: 08-10-2022 Telephone encounter Naye Sheets MD Work Phone: [facility] Comment on above: Results Start: 08-09-2022 End: 08-09-2022 Subsequent hospital visit by physician Edward [facility] Work Phone: Radiology Comment on above: Left arm pain [M79.6 02] Start: 08-09-2022 End: 08-09-2022 Patient encounter procedure Naye Sheets MD Work Phone: [facility] Comment on above: Vitamin B12 deficien cy (Primary Dx); Folate deficiency; Iron deficiency anemia, unspecified iron deficiency anemia type; Closed fracture of left hip with routine healing, subsequent encounter; Hypothyroidism, unspecified type; Hypomagnesemia; Hypokalemia; Screening breast examination; Bipolar 1 disorder, mixed (HCC); Left arm pain; Arm mass, left Start: 08-07-2022 Telephone encounter Naye Sheets MD Work Phone: [facility] Comment on above: Prescription Refills (Handicap Placard) Start: 06-20-2022 End: 06-20-2022 Emergency department patient visit [facility] Start: 06-16-2022 Telephone encounter Naye Sheets MD Work Phone: [facility] Comment on above: Home Health Orders Start: 06-16-2022 Non-patient / Non-visit [facility] Start: 06-15-2022 Non-patient / Non-visit [facility] Start: 06-14-2022 Non-patient / Non-visit [facility] Start: 06-13-2022 Non-patient / Non-visit [facility] Start: 06-12-2022 Telephone encounter Naye Sheets MD Work Phone: [facility] Comment on above: Patient update/fall Start: 06-12-2022 Non-patient / Non-visit [facility] Start: 06-11-2022 Non-patient / Non-visit [facility] Start: 06-10-2022 End: 06-17-2022 [facility] Start: 04-28-2022 Telephone encounter Meenakshi berkowitz APRN.[employer] Work Phone: [facility] Comment on above: Results Start: 04-25-2022 Telephone encounter Meenakshi berkowitz APRN.[employer] Work Phone: [facility] Comment on above: Results; Orders Start: 04-24-2022 End: 04-24-2022 Office outpatient visit 25 minutes Meenakshi Baker APRN.[employer] Work Phone: [facility] Comment on above: Near syncope (Primar y Dx); Fatigue, unspecified type; Elevated glucose; Symptoms of upper respiratory infection (URI) Start: 03-13-2022 Telephone encounter Naye Sheets MD Work Phone: [facility] Comment on above: Forms Start: 03-10-2022 Telephone encounter [facility] MD [facility] Comment on above: DME for depends Start: 01-30-2022 Telephone encounter Naye Sheets MD [facility] Comment on above: Orders (labs) Start: 01-19-2022 ambulatory [facility] Sheets MD [facility] Comment on above: Pain Start: 12-12-2021 Telephone encounter Naye Sheets MD Work Phone: [facility] [place] Comment on above: Covid Vaccination Re cords Start: 11-23-2021 End: 11-23-2021 Patient encounter procedure Naye Sheets MD Work Phone: [facility] [place] Comment on above: Peptic ulcer disease (Primary Dx); Moderate dysplasia of cervix; Female stress incontinence; Gastrointestinal hemorrhage, unspecified gastrointestinal hemorrhage type; Hypothyroidism, unspecified type; Screening breast examination Start: 11-10-2021 End: 11-10-2021 Patient encounter procedure Bronwyn Lundy SOLUTION LEAD.[employer] Work Phone: [facility] Comment on above: Acute otitis media, left (Primary Dx); URI, acute Start: 10-07-2021 Telephone encounter Naye Sheets MD Work Phone: [facility] [place] Comment on above: Patient Request; Pat ient Question Start: 10-05-2021 Telephone encounter Naye Sheets MD Work Phone: [facility] [place] Comment on above: fax coming from Kalpesh Baker Start: 10-03-2021 End: 10-03-2021 Patient encounter procedure Sarita Goodwin SOLUTION LEAD.[employer] Work Phone: [facility] Comment on above: Swelling of left mary e of face (Primary Dx) Start: 09-26-2021 Telephone encounter Naye Sheets MD Work Phone: [facility] [place] Comment on above: Letter Start: 08-08-2021 Telephone encounter Naye Sheets MD Work Phone: [facility] [place] Comment on above: Results Start: 08-05-2021 End: 08-05-2021 Patient encounter procedure Naye Sheets MD Work Phone: [facility] [place] Comment on above: Hypothyroidism, unsp ecified type [...] Comment: Specimen Type: BLOOD SPEC IMENOrdering Facility: [facility] Address: [address] [place] [address] Performed By: #### T SCR ####[facility] BLOOD BANKCLIA [id number] [place] [address] [place] Start: 06-14-2024 Gluc [...] Work Phone: Start: 06-13-[address] Naey Sheets MD Work Phone: Start: 11-15-2022 X-ray of chest posteroanterior view Start: 10-13-2022 Radiologic exam chest 2 views Naye Sheets MD Work Phone: Start: 08-22-2022 Us lmtd joint/oth nonvasc xtr strux r-t w/img Naye Sheets MD Work Phone: Start: 08-11-2022 Radex [...] RSV Vaccine (1 - 1-dose 75+ series) [facility] Start: 08-11-2032 Urine microalbumin profile DTaP,Tdap,Td Vaccine (3 - Td or Tdap) [facility] Start: 06-28-2027 Diabetes Screening Diabetes Screening [facility] Start: 06-18-2027 Diabetes Screening Diabetes Screening [facility] Start: 08-05-2026 Lipid 1996 panel - Serum or Plasma Lipid Screening [facility] Start: 08-05-2026 Lipid panel Lipid Screening [facility] Start: 08-05-2026 LIPID SCREEN LIPID SCREEN [facility] Start: 08-09-2025 DIABETES SCREEN DIABETES SCREEN [facility] Start: 08-09-2025 Diabetes Screening Diabetes Screening [facility] Start: 05-19-2025 Annual PCP Team Chronic Disease Visit Annual PCP Team Chronic Disease Visit [facility] Start: 04-26-2025 DIABETES SCREEN DIABETES SCREEN [facility] Start: 01-12-2025 Influenza vaccination Influenza Vaccine (Season Ended) [facility] Start: 09-10-2024 End: 09-10-2024 Patient encounter procedure 09/10/2024 2:30 PM EDT Office [facility] [address] [place] [id number] Bernardo Carr [facility] [address] [place], [place] [id number] upper gi bleed [facility] Comment on above: upper gi bleed Start: 08-29-2024 Patient discharge [facility] Start: 08-29-2024 [facility] Start: 08-27-2024 Speech therapy assessment [facility] Start: 08-27-2024 Care planning and problem solving actions [facility] Start: 08-27-2024 Referral to occupational therapist [facility] Start: 08-27-2024 Referral to service [facility] Start: 08-27-2024 [facility] Start: 08-26-2024 Application of intermittent pneumatic compression device [facility] Start: 08-26-2024 Following clinical pathway protocol [facility] Start: 08-26-2024 Assessment of risk of venous thromboembolism [facility] Start: 08-26-2024 Fall prevention [facility] Start: 08-26-2024 Incentive spirometry [facility] Start: 08-26-2024 Inhalation therapy procedure [facility] Start: 08-26-2024 Insertion of catheter into peripheral vein [facility] Start: 08-26-2024 Introduction of urinary catheter [facility] Start: 08-26-2024 Measuring intake and output [facility] Start: 08-26-2024 Oxygen therapy [facility] Start: 08-26-2024 [facility] Start: 08-26-2024 Providing care according to standard [facility] Start: 08-26-2024 Provision of activity privileges [facility] Start: 08-26-2024 Referral to gastroenterology service [facility] Start: 08-26-2024 Referral to service [facility] Start: 08-26-2024 End: 08-26-2024 [facility] Start: 08-26-2024 Admission procedure [facility] Start: 08-26-2024 Verification routine [facility] Start: 08-26-2024 Bacteria identified in Urine by Culture Urine Culture [facility] Start: 08-26-2024 Patient referral to [facility] Start: 08-26-2024 [facility] Start: 08-07-2024 End: 08-07-2024 Patient encounter procedure 08/07/2024 3:00 PM EDT Office Visit [facility] [place] [address] [place] [address] Natalie Kirkpatrick APRN.[employer]EM[employer] [address] [place] [address] follow up from [facility](discharged on 07/25) for / for GI issue [facility] [place] Comment on above: follow up from [facility] (discharged on 07/25) for / for GI issue Start: 08-05-2024 DIABETES SCREEN DIABETES SCREEN [facility] Start: 07-31-2024 End: 07-31-2024 Patient encounter procedure 07/31/2024 2:40 PM EDT Office Visit Family [facility] [address] [facility] [address] Natalie Kirkpatrick, SOLUTION LEAD.[employer]EMAN [address] [facility] [place] [address] follow up from [facility](discharged on 07/25) for / for GI issue [facility] Comment on above: follow up from [facility] (discharged on 07/25) for / for GI issue Start: 06-13-2024 Administration of blood product [facility] Start: 06-13-2024 [facility] Start: 06-13-2024 Airway suction technique [facility] Start: 06-13-2024 Administration of blood product [facility] Start: 06-13-2024 [facility] Start: 06-13-2024 [facility] Start: 05-14-2024 Advance Directive Discussion Advance Directive Discussion [facility] Start: 03-27-2024 End: 03-27-2024 Patient encounter procedure 03/27/2024 3:00 PM EST Office Visit Family [facility] [address] [facility] [place] [facility] [place] [address] orders for pure wick [facility] Comment on above: orders for pure wick Start: 03-18-2024 End: 03-18-2024 Patient encounter procedure 03/18/2024 11:00 AM EST Office Visit Family [facility] [address] [place] [address] Natalie Kirkpatrick, SOLUTION LEAD.[employer]OUN[employer] FOREMAN [address] [facility] [place] [address] Orders for Pure Wick. Not seen for 1 year. Family [facility] Comment on above: Orders for Pure Wick. Not seen for 1 kamaljit dickson Start: 02-14-2024 End: 02-14-2024 Patient encounter procedure 02/14/2024 1:20 PM EDT Office Visit Family [facility] [address] [facility] [place] [address] Natalie Kirkpatrick APRN.[employer]OUN[employer] FOREMAN [address] [facility] [place] [address] follow up [facility] [place] Comment on above: follow up Start: 02-11-2024 End: 02-11-2024 Patient encounter procedure 02/11/2024 6:20 PM EDT Office Visit [facility] [place] [address] [facility], [place] [id number] Naye Sheets MD [address] [facility] [place] [address] Medicare Wellness [facility] [place] Comment on above: Medicare Wellness Start: 01-13-2024 Covid-19 Vaccine () Covid-19 Vaccine () [facility] Start: 01-13-2024 Covid-19 Vaccine () Covid-19 Vaccine () [facility] Start: 01-13-2024 Influenza vaccination [facility] Start: 12-01-2023 End: 12-01-2023 COLONOSCOPY DIAGNOSTIC COLONOSCOPY DIAGNOSTIC Endoscopy Routine Anemia, unspecified type Expected: 12/01/2023, Expires: 12/01/2023 [facility] Work Phone: Comment on above: Expected: 12/01/2023, Expires: Start: 10-14-2023 ANNUAL PCP TEAM CHRONIC DISEASE VISIT ANNUAL PCP TEAM CHRONIC DISEASE VISIT [facility] Start: 09-07-2023 Advance Directive Discussion Advance Directive Discussion [facility] Start: 09-07-2023 Pneumococcal Vaccine: 65+ (2 of 2 - PCV) Pneumococcal Vaccine: 65+ (2 of 2 - PCV) [facility] Start: 09-07-2023 Screening for osteoporosis Bone Density Screening [facility] Start: 08-10-2023 ANNUAL PCP TEAM CHRONIC DISEASE VISIT ANNUAL PCP TEAM CHRONIC DISEASE VISIT [facility] Start: 08-10-2023 COVID-19 VACCINE (4 - Booster for Pfizer series) COVID-19 VACCINE (4 - Booster for Pfizer series) [facility] Comment on above: Postponed from 03/01/2022 (Declined at t his time) Start: 08-10-2023 COVID-19 VACCINE (5 - Pfizer series) COVID-19 VACCINE (5 - Pfizer series) [facility] Comment on above: Postponed from 03/01/2022 (Declined at t his time) Start: 08-10-2023 SHINGRIX VACCINE (2 of 2) SHINGRIX VACCINE (2 of 2) [facility] Comment on above: Postponed from 03/01/2022 (Declined at t his time) Start: 08-10-2023 Urine microalbumin profile [facility] Comment on above: Postponed from 12/09/2020 (Declined at t his time) Start: 04-24-2023 ANNUAL PCP TEAM CHRONIC DISEASE VISIT ANNUAL PCP TEAM CHRONIC DISEASE VISIT [facility] Start: 03-19-2023 End: 06-18-2023 25-hydroxyvitamin D3 [Mass/volume] in Serum or Plasma VITAMIN D 25 HYDROXY Lab Routine Vitamin D deficiency Expected: 03/19/2023, Expires: 06/18/2023 [facility] Work Phone: Comment on above: Expected: 03/19/2023, Expires: 4 Start: 03-19-2023 End: 06-18-2023 CBC panel - Blood by Automated count CBC Lab Routine Bipolar 1 disorder, mixed (HCC) Expected: 03/19/2023, Expires: 06/18/2023 [facility] Work Phone: Comment on above: Expected: 03/19/2023, Expires: 4 Start: 03-19-2023 End: 06-18-2023 Comprehensive metabolic 2000 panel - Serum or Plasma COMP METABOLIC PANEL Lab Routine Bipolar 1 disorder, mixed (HCC) Hypothyroidism, unspecified type Expected: 03/19/2023, Expires: 06/18/2023 [facility] Work Phone: Comment on above: Expected: 03/19/2023, Expires: 4 Start: 03-19-2023 End: 06-18-2023 Magnesium [Mass/volume] in Serum or Plasma MAGNESIUM BLD Lab Routine Hypomagnesemia Expected: 03/19/2023, Expires: 06/18/2023 [facility] Work Phone: Comment on above: Expected: 03/19/2023, Expires: 4 Start: 01-12-2023 Covid-19 Vaccine ( season) Covid-19 Vaccine ( season) [facility] Start: 01-12-2023 Influenza vaccination [facility] Start: 11-23-2022 Adult depression screening assessment DEPRESSION SCREENING [facility] Start: 11-23-2022 ANNUAL PCP TEAM CHRONIC DISEASE VISIT ANNUAL PCP TEAM CHRONIC DISEASE VISIT [facility] Start: 11-06-2022 LIPID SCREEN LIPID SCREEN [facility] Start: 08-10-2022 End: 10-10-2022 Hemoglobin A1c in Blood HGB A1C Lab Routine Hyperglycemia Expected: 08/10/2022, Expires: 10/10/2022 [facility] Work Phone: Comment on above: Expected: 08/10/2022, Expires: 3 Start: 08-10-2022 End: 10-10-2022 Magnesium [Mass/volume] in Serum or Plasma MAGNESIUM BLD Lab Routine Hypomagnesemia Expected: 08/10/2022, Expires: 10/10/2022 [facility] Work Phone: Comment on above: Expected: 08/10/2022, Expires: 3 Start: 08-09-2022 End: 10-09-2022 Basic metabolic 2000 panel - Serum or Plasma [facility] Work Phone: Comment on above: Expected: 08/09/2022, Expires: 3 Start: 08-09-2022 End: 10-09-2022 Cobalamin (Vitamin B12) [Mass/volume] in Serum or Plasma [facility] Work Phone: Comment on above: Expected: 08/09/2022, Expires: 3 Start: 08-09-2022 End: 10-09-2022 Folate [Mass/volume] in Serum or Plasma [facility] Work Phone: Comment on above: Expected: 08/09/2022, Expires: 3 Start: 08-09-2022 End: 10-09-2022 Iron and Iron binding capacity panel - Serum or Plasma [facility] Work Phone: Comment on above: Expected: 08/09/2022, Expires: 3 Start: 08-09-2022 End: 10-09-2022 Magnesium [Mass/volume] in Serum or Plasma [facility] Work Phone: Comment on above: Expected: 08/09/2022, Expires: 3 Start: 08-05-2022 ANNUAL PCP TEAM CHRONIC DISEASE VISIT ANNUAL PCP TEAM CHRONIC DISEASE VISIT [facility] Start: 06-16-2022 Referral to service [facility] Start: 06-16-2022 Patient discharge [facility] Start: 06-15-2022 Care planning and problem solving actions [facility] Start: 06-14-2022 Administration of blood product [facility] Start: 06-11-2022 Provision of overbed trapeze [facility] Start: 06-11-2022 End: 06-11-2022 [facility] Start: 06-11-2022 Ambulation therapy management [facility] Start: 06-11-2022 Application of device [facility] Start: 06-11-2022 Assessment of risk of venous thromboembolism [facility] Start: 06-11-2022 Catheterization of vein [facility] [facility] Start: 06-11-2022 Exercises [facility] Start: 06-11-2022 Following clinical pathway protocol [facility] Start: 06-11-2022 Introduction of urinary catheter [facility] Start: 06-11-2022 Measuring intake and output [facility] Start: 06-11-2022 Neurovascular assessment [facility] Start: 06-11-2022 Patient education [facility] Start: 06-11-2022 Procedure discontinued [facility] Start: 06-11-2022 Provision of activity privileges [facility] Start: 06-11-2022 Referral to occupational therapist [facility] Start: 06-11-2022 Referral to service [facility] Start: 06-11-2022 Vital signs measurements [facility] Start: 06-11-2022 Wound care [facility] Start: 06-11-2022 Administration of blood product [facility] Start: 06-11-2022 Application of intermittent pneumatic compression device [facility] Start: 06-11-2022 Troponin I measurement [facility] Start: 06-10-2022 Application of intermittent pneumatic compression device [facility] Start: 06-10-2022 Following clinical pathway protocol [facility] Start: 06-10-2022 Assessment of risk of venous thromboembolism [facility] Start: 06-10-2022 Consultation [facility] Start: 06-10-2022 Insertion of catheter into peripheral vein [facility] Start: 06-10-2022 Providing care according to standard [facility] Start: 06-10-2022 Provision of activity privileges [facility] Start: 06-10-2022 Referral to occupational therapist [facility] Start: 06-10-2022 Referral to service [facility] Start: 06-10-2022 Chart related administrative procedure [facility] Start: 06-10-2022 Electrocardiographic procedure [facility] Start: 06-10-2022 Troponin I measurement [facility] Start: 06-10-2022 End: 06-10-2022 [facility] Start: 06-10-2022 Verification routine [facility] Start: 06-10-2022 Admission procedure [facility] Start: 06-10-2022 Application of ice collar, cap or bag [facility] Start: 06-04-2022 DIABETES SCREEN DIABETES SCREEN [facility] Start: 05-14-2022 DEPRESSION ASSESSMENT DEPRESSION ASSESSMENT [facility] Start: 05-06-2022 COVID-19 VACCINE (4 - Booster for Pfizer series) COVID-19 VACCINE (4 - Booster for Pfizer series) [facility] Start: 04-28-2022 End: 06-28-2022 Basic metabolic 2000 panel - Serum or Plasma BASIC METABOLIC PNL Lab Routine Anemia, unspecified type Expected: 04/28/2022, Expires: 06/28/2022 [facility] Work Phone: Comment on above: Expected: 04/28/2022, Expires: Start: 04-28-2022 End: 06-28-2022 CBC W Auto Differential panel - Blood CBC + DIFF Lab Routine Anemia, unspecified type Expected: 04/28/2022, Expires: 06/28/2022 [facility] Work Phone: Comment on above: Expected: 04/28/2022, Expires: 3 Start: 04-28-2022 End: 06-28-2022 Magnesium [Mass/volume] in Serum or Plasma MAGNESIUM BLD Lab Routine Hypomagnesemia Expected: 04/28/2022, Expires: 06/28/2022 [facility] Work Phone: Comment on above: Expected: 04/28/2022, Expires: 3 Start: 04-24-2022 End: 06-24-2022 CBC W Auto Differential panel - Blood [facility] Work Phone: Comment on above: Expected: 04/24/2022, Expires: 3 Start: 04-24-2022 End: 06-24-2022 Comprehensive metabolic 2000 panel - Serum or Plasma [facility] Work Phone: Comment on above: Expected: 04/24/2022, Expires: 3 Start: 04-24-2022 End: 06-24-2022 Hemoglobin A1c in Blood [facility] Work Phone: Comment on above: Expected: 04/24/2022, Expires: 3 Start: 04-24-2022 End: 06-24-2022 Magnesium [Mass/volume] in Serum or Plasma [facility] Work Phone: Comment on above: Expected: 04/24/2022, Expires: 3 Start: 04-24-2022 End: 06-24-2022 Thyrotropin [Units/volume] in Serum or Plasma [facility] Work Phone: Comment on above: Expected: 04/24/2022, Expires: 3 Start: 03-24-2022 Colonoscopy COLONOSCOPY [facility] Start: 03-24-2022 COLORECTAL CANCER SCREENING COLORECTAL CANCER SCREENING [facility] Start: 03-24-2022 Screening for malignant neoplasm of colon [facility] Start: 03-01-2022 COVID-19 VACCINE (4 - Booster for Pfizer series) COVID-19 VACCINE (4 - Booster for Pfizer series) [facility] Start: 03-01-2022 SHINGRIX VACCINE (2 of 2) SHINGRIX VACCINE (2 of 2) [facility] Start: 01-12-2022 Influenza vaccination [facility] Start: 08-08-2021 End: 10-08-2021 POTASSIUM BLD POTASSIUM BLD Lab Routine Hypokalemia Expected: 08/08/2021, Expires: 10/08/2021 [facility] Work Phone: Comment on above: Expected: 08/08/2021, Expires: 2 Start: 08-05-2021 End: 10-05-2021 CBC W Auto Differential panel - Blood [facility] Work Phone: Comment on above: Expected: 08/05/2021, Expires: 2 Start: 08-05-2021 End: 10-05-2021 Comprehensive metabolic 2000 panel - Serum or Plasma [facility] Work Phone: Comment on above: Expected: 08/05/2021, Expires: 2 Start: 08-05-2021 End: 10-05-2021 Hepatitis C virus Ab [Presence] in Serum [facility] Work Phone: Comment on above: Expected: 08/05/2021, Expires: 2 Start: 08-05-2021 End: 10-05-2021 HIV 1+2 Ab [Presence] in Serum or Plasma by Immunoassay [facility] Work Phone: Comment on above: Expected: 08/05/2021, Expires: 2 Start: 08-05-2021 End: 10-05-2021 LIPID PANEL, NONFASTING [facility] Work Phone: Comment on above: Expected: 08/05/2021, Expires: 2 Start: 08-05-2021 End: 10-05-2021 Thyrotropin [Units/volume] in Serum or Plasma [facility] Work Phone: Comment on above: Expected: 08/05/2021, Expires: 2 Start: 05-14-2021 DEPRESSION ASSESSMENT DEPRESSION ASSESSMENT [facility] Start: 02-01-2021 COVID-19 VACCINE (3 - Booster for Pfizer series) COVID-19 VACCINE (3 - Booster for Pfizer series) [facility] Start: 01-12-2021 Influenza vaccination INFLUENZA (#1) [facility] Start: 12-09-2020 Urine microalbumin profile DTAP,TDAP,TD (2 - Td or Tdap) [facility] Start: 03-07-2020 Adult depression screening assessment DEPRESSION SCREENING [facility] Start: 11-21-2018 FECAL OCCULT BLOOD FECAL OCCULT BLOOD [facility] Start: 11-21-2018 Screening for malignant neoplasm of colon Fecal Occult Blood [facility] Start: 2018 RSV Vaccine (1 - 1-dose 60+ series) RSV Vaccine (1 - 1-dose 60+ series) [facility] Start: 01-14-2016 PAP TESTING PAP TESTING [facility] Start: 05-28-2015 Mammography [facility] Start: 05-28-2015 Screening for malignant neoplasm of breast Mammogram Screening [facility] Start: 02-24-2014 Pneumococcal Vaccine: 50+ (2 of 2 - PCV) Pneumococcal Vaccine: 50+ (2 of 2 - PCV) [facility] Start: 2008 SHINGRIX VACCINE (1 of 2) SHINGRIX VACCINE (1 of 2) [facility] Start: 09-07-2003 COLOGUARD (FIT-DNA) COLOGUARD (FIT-DNA) [facility] Start: 09-07-[address] COLONOGRAPHY [facility] Start: 09-07-2003 Screening for malignant neoplasm of colon [facility] Start: 09-07-2003 SIGMOIDOSCOPY SIGMOIDOSCOPY [facility] Start: 1988 HPV TESTING HPV TESTING [facility] Start: 1976 HEPATITIS C SCREENING HEPATITIS C SCREENING [facility] Start: 1976 HIV SCREENING HIV SCREENING [facility] Acute hepatitis 2000 panel - Serum [facility] Alanine aminotransfe rase [Enzymatic activity/volume] in Serum or Plasma [facility] Albumin [Mass/volume ] in Serum or Plasma [facility] Alkaline phosphatase [Enzymatic activity/volume] in Serum or Plasma [facility] Dedqh-8-simyipbumet. tumor marker [Units/volume] in Serum or Plasma [facility] Anion gap in Serum or Plasma [facility] Bilirubin, total measurement [facility] BUN/Creatinine ratio [facility] C reactive protein [Mass/volume] in Serum or Plasma [facility] Calcium [Mass/volume ] in Serum or Plasma [facility] Carbon dioxide, tota l [Moles/volume] in Central venous blood [facility] CBC W Auto Different ial panel - Blood [facility] Ceruloplasmin [Mass/ volume] in Serum or Plasma [facility] Comprehensive metabo lic 2000 panel - Serum or Plasma [facility] Copper [Moles/volume ] in Serum or Plasma [facility] Creatinine [Mass/vol ume] in Serum or Plasma [facility] Cytoplasmic ANCA Screen [facility] End: 09-18-2025 DBT Breast - bilateral screening LIZZY SCREENING W [facility] Radiology Routine Encounter for screening mammogram for breast cancer 1 Occurrences starting 08/19/2024 until 09/18/2025 [facility] Work Phone: Comment on above: 1 Occurrences starting 08/19/2024 until 09/18/2025 End: 04-24-2023 ECG COMPLETE ECG COMPLETE ECG Routine Near syncope 1 Occurrences starting 04/24/2022 until 04/24/2023 [facility] Work Phone: Comment on above: 1 Occurrences starting 04/24/2022 until 04/24/2023 ECG COMPLETE ECG COMPLETE ECG 04/24/2022 2:[address] [facility] End: 12-01-2023 EGD DIAGNOSTIC EGD DIAGNOSTIC Endoscopy Routine Anemia, unspecified type 1 Occurrences starting 11/30/2022 until 12/01/2023 [facility] Work Phone: Comment on above: 1 Occurrences starting 11/30/2022 until 12/01/2023 Erythrocyte mean cor puscular volume determination [facility] Erythrocyte sediment ation rate [facility] Ethanol [Mass/volume ] in Serum or Plasma [facility] Ferritin [Mass/volum e] in Serum or Plasma [facility] Gamma glutamyl trans ferase measurement [facility] Glucose [Mass/volume ] in Serum or Plasma [facility] Hematocrit [Volume F raction] of Blood [facility] Hematocrit [Volume F raction] of Blood [facility] Hematocrit [Volume F raction] of Blood [facility] Hemoglobin [Mass/vol ume] in Blood [facility] Hemoglobin [Mass/vol ume] in Blood [facility] Hemoglobin [Mass/vol ume] in Blood [facility] Hemoglobin A1c/Hemoglobin.total in Blood [facility] Hemoglobin A1c/Hemoglobin.total in Blood [facility] Hemoglobin A1c/Hemoglobin.total in Blood [facility] Hemoglobin.gastroint estinal.l ower [Presence] in Stool by Immunoassay FECAL OCCULT BLOOD TEST Lab Routine Anemia, unspecified type Ordered: 04/25/2022 [facility] Work Phone: Comment on above: Ordered: 04/25/2022 Immunoglobulin measurement [facility] Iron and Iron bindin g capacity panel - Serum or Plasma [facility] Lactate dehydrogenas e measurement [facility] Leukocytes [#/volume ] in Blood [facility] Lipid 1996 panel - S latisha or Plasma [facility] Liver stiffness by US.transient elastography [facility] Magnesium [Mass/volu me] in Serum or Plasma [facility] End: 09-08-2023 LIZZY SCREENING LIZZY SCREENING Radiology Routine Screening breast examination 1 Occurrences starting 08/09/2022 until 09/08/2023 [facility] Work Phone: Comment on above: 1 Occurrences starting 08/09/2022 until 09/08/2023 End: 11-12-2023 LIZZY SCREENING LIZZY SCREENING Radiology Routine Encounter for screening mammogram for malignant neoplasm of breast 1 Occurrences starting 10/13/2022 until 11/12/2023 [facility] Work Phone: Comment on above: 1 Occurrences starting 10/13/2022 until 11/12/2023 Mean corpuscular hem oglobin concentration determination [facility] Mean corpuscular hem oglobin determination [facility] Measurement of renal function [facility] End: 10-18-2024 MG Breast Screening LIZZY SCREENING Radiology Routine Encounter for screening mammogram for breast cancer 1 Occurrences starting 09/19/2023 until 10/18/2024 [facility] Work Phone: Comment on above: 1 Occurrences starting 09/19/2023 until 10/18/2024 Mitochondria Ab [Pre sence] in Serum [facility] Neutrophil count [facility] Neutrophil percent differential count [facility] Patient Education ED Chest Wall Contusion [facility] Work Phone: Patient referral [facility] Work Phone: Platelets [#/volume] in Blood [facility] Potassium measurement [facility] Procedure [facility] Prothrombin time [facility] End: 11-12-2023 Radiologic exam chest 2 views XR CHEST 2V FRONTAL/LAT Radiology Routine Bronchitis 1 Occurrences starting 10/13/2022 until 11/12/2023 [facility] Work Phone: Comment on above: 1 Occurrences starting 10/13/2022 until 11/12/2023 Radiologic exam chest 2 views XR CHEST 2V FRONTAL/LAT Radiology Routine Bronchitis 10/13/2022 10:[address] [facility] Work Phone: Red blood cell count [facility] Red cell distributio n width determination [facility] End: 09-04-2022 Screening mammography bi 2-view breast inc cad LIZZY SCREENING Radiology Routine Screening breast examination 1 Occurrences starting 08/05/2021 until 09/04/2022 [facility] Work Phone: Comment on above: 1 Occurrences starting 08/05/2021 until 09/04/2022 End: 12-23-2022 Screening mammography bi 2-view breast inc cad LIZZY SCREENING Radiology Routine Screening breast examination 1 Occurrences starting 11/23/2021 until 12/23/2022 [facility] Work Phone: Comment on above: 1 Occurrences starting 11/23/2021 until 12/23/2022 Serum chloride measurement [facility] Serum immunofixation [facility] Smooth muscle Ab [Pr esence] in Serum [facility] Sodium measurement [facility] Thyroid stimulating hormone measurement [facility] Total protein measurement [facility] Transferrin [Mass/vo lume] in Serum or Plasma [facility] Urea nitrogen [Mass/ volume] in Serum or Plasma [facility] Urinalysis complete panel - Urine [facility] Urine culture [facility] End: 09-08-2023 US EXTREMITY MASS/FLUID COLLECTION LEFT US EXTREMITY MASS/FLUID COLLECTION LEFT Radiology Routine Arm mass, left 1 Occurrences starting 08/09/2022 until 09/08/2023 [facility] Work Phone: Comment on above: 1 Occurrences starting 08/09/2022 until 09/08/2023 End: 09-09-2023 XR ELBOW GENERAL 2V AP/LAT LEFT XR ELBOW GENERAL 2V AP/LAT LEFT Radiology Routine Effusion of left elbow 1 Occurrences starting 08/10/2022 until 09/09/2023 [facility] Work Phone: Comment on above: 1 Occurrences starting 08/10/2022 until 09/09/2023 End: 09-08-2023 XR HUMERUS 2V AP/LAT LEFT XR HUMERUS 2V AP/LAT LEFT Radiology Routine Left arm pain 1 Occurrences starting 08/09/2022 until 09/08/2023 [facility] Work Phone: Comment on above: 1 Occurrences starting 08/09/2022 until 09/08/2023 XR HUMERUS 2V AP/LAT LEFT XR HUM ERUS 2V AP/LAT LEFT Radiology Routine Left arm pain 08/09/2022 10:[address] [facility] Work Phone: End: 09-09-2023 XR SHOULDER GENERAL 3V OR MORE AP/TRUE AP/OTHER LEFT XR SHOULDER GENERAL 3V OR MORE AP/TRUE AP/OTHER LEFT Radiology Routine Acute pain of left shoulder 1 Occurrences starting 08/10/2022 until 09/09/2023 [facility] Work Phone: Comment on above: 1 Occurrences starting 08/10/2022 until 09/09/2023 [facility] Immunizations Immunization Date Immunization Notes Care Provider Fa rosety 08-11-2022 tetanus toxoid, redu noy diphtheria toxoid, and acellular pertussis vaccine, adsorbed Naye Sheets MD Work Phone: [facility] 08-11-2022 zoster vaccine recombinant Naye Sheets MD Work Phone: [facility] 01-04-2022 COVID-19 original vaccine, age 12+ yr, monovalent (Qubulus-BIONTECH - PEREZ TOP) Meenakshi Ferminsho [employer] Work Phone: [facility] Work Phone: 01-04-2022 COVID-19 vaccine, ag e 12+ yr (Qubulus-BIONTECH - PURPLE TOP) Naye Sheets MD Work Phone: [facility] 01-04-2022 influenza, injectabl e, quadrivalent, preservative free Naye Sheets MD Work Phone: [facility] Work Phone: 01-04-2022 influenza, seasonal, injectable Naye Sheets MD Work Phone: [facility] 01-04-2022 zoster vaccine recombinant Naye Sheets MD Work Phone: [facility] 01-04-2022 influenza virus vacc ine, unspecified formulation Naye Sheets MD Work Phone: [facility] 09-01-2020 Covid (Pfizer) [facility] 07-27-2020 Covid (Pfizer) [facility] 02-28-2019 influenza, injectabl e, quadrivalent, preservative free Naye Sheets MD Work Phone: [facility] 02-27-2019 influenza, injectabl e, quadrivalent, preservative free Dr. Naye Sheets MD Work Phone: [facility] 02-27-2019 influenza, seasonal, injectable Naye Sheets MD Work Phone: [facility] 03-13-2018 influenza, injectabl e, quadrivalent, preservative free Naye Sheets MD Work Phone: [facility] 03-16-2017 Influenza, injectabl e, Madin Jessica Canine Kidney, preservative free, quadrivalent Naye Sheets MD Work Phone: [facility] 02-26-2016 influenza, injectabl e, quadrivalent, preservative free Dr. Naye Sheets MD Work Phone: [facility] 02-26-2016 influenza, seasonal, injectable Naye Sheets MD Work Phone: [facility] 02-25-2015 influenza, injectabl e, quadrivalent, preservative free Dr. Naye Sheets MD Work Phone: [facility] 02-25-2015 influenza, seasonal, injectable Naye Sheets MD Work Phone: [facility] 02-05-2014 influenza, injectabl e, quadrivalent, preservative free Dr. Naye Sheets MD Work Phone: [facility] 02-05-2014 influenza, seasonal, injectable Naye Sheets MD Work Phone: [facility] 02-24-2013 pneumococcal polysaccharide vaccine, 23 valent Naye Sheets MD Work Phone: [facility] 03-13-2011 influenza virus vacc ine, unspecified formulation Naye Sheets MD Work Phone: [facility] 12-09-2010 tetanus toxoid, redu noy diphtheria toxoid, and acellular pertussis vaccine, adsorbed Naye Sheets MD Work Phone: [facility] 05-01-2003 influenza nasal, unspecified formulation Naye Sheets MD Work Phone: [facility] Payers Date Payer Category Payer Medicare (Managed Care) [facility] DUAL COMPLETE HMO POS SNP [id number] 2024 Unknown [id number] 2024 Self-pay [id number] 2024 Unknown [id number] 2024 Medicare [id number] 2022 Unknown [id number] 2021 Medicaid [id number] 2021 Medicare [id number] 2021 Medicare [id number] 2021 Unknown [id number] 2011 Medicare MEDICARE PART A B [id number] Unknown [id number]. 462 Unknown [id number]. 462 Unknown [id number] [id number]. 462 Unknown [id number] [id number]. 462 Unknown [id number] [id number]. 462 Unknown [id number] [id number]. 462 Unknown [id number] [id number]. 462 Unknown [id number] [id number]. 462 Unknown [id number] [id number]. 462 Unknown [id number] [id number]. 462 Unknown [id number]. 462 Unknown [id number] [id number]. 462 Unknown [id number] [id number]. 462 Unknown [id number] [id number]. 462 Unknown [id number] [id number]. 462 Unknown [id number] [id number]. 462 Unknown [id number]. 462 Social History Date Type Detail Facility Start: 06-21-2018 End: 04-24-2022 Tobacco smoking status NHIS Ex-smoker [facility] Start: 06-21-2018 End: 04-24-2022 Tobacco use and exposure Smokeless tobacco non-user [facility] Start: 08-05-2021 End: 11-23-2021 Alcohol intake Current non-drinker of alcohol (finding) [facility] Start: 07-17-2014 History SDOH Alcohol Comment Patient indicated that she is binge drinker Sober since [facility] Start: 06-21-2018 End: 04-24-2022 Tobacco Comment quit in 2018 [facility] Start: 1960 Sex Assigned At Not on file [facility] Start: 07-26-2021 End: 11-23-2021 Exposure to SARS-CoV-2 (event) Not sure [facility] History of tobacco use Current smoker [facility] Start: 04-28-2022 End: 10-13-2022 Alcohol intake Current drinker of alcohol (finding) [facility] Start: 06-10-2022 End: 11-15-2022 Tobacco smoking status NHIS Unknown if ever smoked [facility] Start: 06-10-2022 Heavy [facility] Start: 06-10-2022 None [facility] Start: 06-10-2022 Alone [facility] Start: 04-08-2019 Non-smoker [facility] Start: 1960 Sex Assigned At Female [facility] Start: 10-13-2022 End: 06-16-2024 History of Social function [facility] Work Phone: Start: 10-13-2022 End: 06-16-2024 Tobacco use panel [facility] Work Phone: Adult Depression Screening Assessment 0 [facility] Work Phone: Start: 08-26-2024 End: 08-26-2024 Tobacco smoking status NHIS Never smoked tobacco (finding) [facility] Start: 08-26-2024 End: 08-29-2024 Sex Female (finding) [facility] NEGATED: Highlighted row [facility] NEGATED: Highlighted row Not [facility] Medical Equipment Procedure Code Equipment Code Equipment Origin al Text Equipment Identifier Dates Reuben Bn Endur Sst 40gm Med Vsc - [id number] Start: 03-13-2011 Reuben Bn Endur Sst 40gm Med Vsc - [id number] Start: 03-13-2011 Body Judaism 27mm +0mm Standard [facility]one Modular Revision Hip - [id number] Start: 06-28-2018 Insert Adm Mobil e Bearing Hip Judaism 54mm 28mm 0d X3 9.9mm Acetabular - [id number] Start: 06-28-2018 Head V40 28mm 0m m Offset Taper Biolox Delta Femoral Hip - [id number] Start: 06-28-2018 Shell Mdm Triden t 62mm G Hemisphere Tritanium X3 Acetabular Multihole Rim - [id number] Start: 06-28-2018 Liner Mdm 48mm G Cocr Acetabular 28mm Femoral Head Hip - [id number] Start: 06-28-2018 Stem Judaism 25mm Straight Cone Fermin 155mm Femoral Modular Hip - [id number] Start: 06-28-2018 Comp Tibtry 4 Kn Reuben Mdlr Sig - [id number] Start: 03-13-2011 Ins Tib 4 15mm K n Cocr Stab - [id number] Start: 03-13-2011 Comp Fem 4 Rt Kn Post - [id number] Start: 03-13-2011 Dome Pat 38mm Pf c Sig Std Kn - [id number] Start: 03-13-2011 Screw Mdm Gap To rx 6.5mm X3 Tritanium [address] Head Multihole - [id number] Start: 06-28-2018 Screw Gap 6.5mm 35mm Acetabular Hip Cancellous - [id number] Start: 06-28-2018 ([id number]) Orthopaedic bone screw, non-bioabsorbable, sterile ()[id number] FDA Start: 06-11-2022 ([id number]) Femur nail, sterile ()[id number] FDA Start: 06-11-2022 ([id number]) Orthopaedic bone screw, non-bioabsorbable, sterile ()[id number] [id number] FDA Start: 06-11-2022 Goals Date Patient Goal Desired Activity /State Functional Status Date Assessment Result Facility [facility] Work Phone: 06-28-2024 Are you deaf, or do you have serious difficulty hearing No 06/28/2024 6:25 PM Valentina Boykin RN No [facility] [facility] 06-28-2024 Are you blind, or do you have serious difficulty seeing, even when wearing glasses No 06/28/2024 6:25 PM Valentina Boykin RN No [facility] 06-28-2024 Do you have serious difficulty walking or climbing stairs Yes 06/28/2024 6:25 PM Valentina Boykin RN Yes [facility] 06-28-2024 Do you have difficul ty dressing or bathing Yes 06/28/2024 6:25 PM Valentina Boykin RN Yes [facility] 06-28-2024 Because of a physica l, mental, or emotional condition, do you have difficulty doing errands alone such as visiting a physician's office or shopping Yes 06/28/2024 6:25 PM Valentina Boykin RN Yes [facility] 06-16-[address] Ser [address] Calc.FibroSure 0.95 [facility] Comment on above: Order Comment: Speci men Type: BLOOD SPECIMENOrdering Facility: [facility] Address: [address] [place] [address] Performed By: #### L IVFIB ####[facility] LABCLIA [id number] [place] [address] [place] 06-16-2024 Necroinflammatory ac t score SerPl 0.16 [facility] Comment on above: Order Comment: Speci men Type: BLOOD SPECIMENOrdering Facility: [facility] Address: [address] [place] [address] Performed By: #### L IVFIB ####[facility] LABCLIA [id number] [place] [address] [place] 06-17-2022 Functional status Ambulates;Bath room Privilege [facility] Work Phone: Mental Status Date Assessment Result Facility 08-29-2024 Cognitive function Voice/Name [facility] Work Phone: 08-29-2024 Cognitive function Appropriate;Cooperativ e [facility] Work Phone: 08-26-2024 Cognitive function Level Of Cons ciousness Awake;Alert;Appropriate;Fol lows Commands [facility] Work Phone: 06-28-2024 Because of a physica l, mental, or emotional condition, do you have serious difficulty concentrating, remembering, or making decisions Yes 06/28/2024 6:25 PM Valentina Boykin, KYLIE Yes [facility] 06-13-2024 Cognitive function Level Of Cons ciousness Awake;Drowsy;Inappropriate; Disoriented [facility] Work Phone: 06-17-2022 Cognitive function Voice/Name [facility] Work Phone: Clinical Notes 06-06-2018 to 10-03-2024 Note Date & Type Note Facility 10-03-2024 Note [facility] Medical Records Department [address] [place] [address] Discharge Summary 10/03/24 1610 MR#: [id number] Acct: [id number] Name: KENYATTA CARRILLO Rep #: [id number] : 1960 64 From: Fermin Calvo DO PCP: Care Physician,No Primary Status:ADM IN Location: [place] [address] Providers Date of Admission: 10/02/24 Date of [...] was seen in the emergency room at [facility] with complaints of generalized weakness. Patient has [...] deficits were noted (more content not included)... [facility] 08-29-2024 Consult note [facility] 08-29-2024 Discharge summary Note Date/Time August 29, 2024 12:28pm [facility] Medical Records Department [address] [place] [address] Discharge Summary 08/29/24 1209 MR#: [id number] Acct: [id number] Name: KENYATTA CARRILLO Rep #:[id number] : 1960 63 From: Jerry Huitron PCP: Dr. Naye Sheets MD Status:ADM I N Location: [place] [address] Providers Date of Admission: 08/26/24 Date of Discharge: 08/29/24 Primary Care Physician: Dr. 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 Jerry Lopez MD; Dr. Naye Sheets MD~ Signed [facility] Work Phone: 1(231) 982-632404-18-2025 Consult note Author Teo Mendiola [facility] Note Date/Time August 29, 2024 2:3 1pm [facility] Medical Records Department [address] [place] [address] Counseling Note - Pharmacy 08/29/24 1223 MR#: [id number] Acct: [id number] Name: KENYATTA CARRILLO Rep #:[id number] : 1960 63 From: Teo Mendiola PCP: Dr. Naye Sheets MD Status:ADM I N Y Location: [place] [address] Pharmacy [place] Med Reconciliation Pharmacy Service has performed discharge [...] Signature (if applicable): Date CC: ~ Signed [facility] Work Phone: 1(854) 389-558604-18-2025 Discharge summary Author Jerry Lopez [facility] Note Date/Time August 29, 2024 12: 09pm [facility] Medical Records Department [address] [place] [address] Instructions for Home/Discharge Instructions 08/29/24 1104 MR#: [id number] Acct: [id number] Name: KENYATTA CARRILLO Rep #:[id number] : [...] - Neelam Conklin PA [Med Staff - [facility]] - Within 1 Month Disposition Disposition (needs filled in before D/C Order can be placed): Home, Self Care 08/29/24 1209<Electronically signed by Jerry Lopez MD>Jerry Lopez MD CC: Dr. Tiff Ramires MD; Dr. Deven Porter MD; Dr. Naye Sheets MD ~ Signed [facility] Work Phone: [phone]) 206-363704-18-2025 Discharge summary [facility] Medical Records Department [address] [place] [address] Discharge Summary 08/29/24 120 MR#: [id number] Acct: [id number] Name: KENYATTA CARRILLO Rep #:[id number] : 1960 63 From: Jerry Huitron PCP: Dr. 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 Jerry Lopez MD; Dr. Naye Sheets MD~ Signed [facility]04-18-2025 Discharge summary [facility] Medical Records Department [address] [place] [address] Instructions for Home/Discharge Instructions 08/29/24 1104 MR#: [id number] Acct: [id number] Name: KENYATTA CARRILLO Rep #:[id number] : [...] - Neelam Conklin PA [Med Staff - [facility]] - Within 1 Month Disposition Disposition (needs filled in before D/C Order can be placed): Home, Self Care 08/29/24 1209Jerry Lopez MD CC: Dr. Tiff Ramires MD; Dr. Deven Porter MD; Dr. Naye Sheets MD ~ Signed [facility]04-18-2025 [facility] Medical Records Department [address] [place] [address] Discharge Summary 08/29/24 1209 MR#: [id number] Acct: [id number] Name: KENYATTA CARRILLO Rep #: [id number] : 1960 63 From: Jerry Lopez MD PCP: Dr. 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 [facility]04-17-2025 Consult note Author Mikael Varags [facility] Note Date/Time August 28, 2024 8:2 8pm [facility] Medical Records Department [address] [place] [address] Anesthesia Postop Eval II 08/28/242027 MR#: [id number] Acct: [id number] Name: KENYATTA CARRILLO Rep #:[id number] : [...] MD Cosigner Signature: Date CC: ~ Signed [facility] Work Phone: 1(579) 838-105104-17-2025 Consult note [facility] Medical Records Department [address] [place] [address] Anesthesia Postop Eval II 08/28/242027 MR#: [id number] Acct: [id number] Name: KENYATTA CARRILLO Rep #:[id number] : [...] Mikael Georgeignnarinder Signature: Date CC: ~ Signed [facility]04-17-2025 Consult note Author Yang Vicente [facility] Note Date/Time August 28, 2024 2:5 3pm [facility] Medical Records Department [address] [place] [address] Anesthesia Postop Eval I 08/28/24 1453 MR#: [id number] Acct: [id number] Name: ALEKSANDARKENYATTASaad ISAACON Rep #:[id number] : 1960 63 From: Yang Vicente PCP: Dr. Naye Sheets MD Status:ADM I N Y Race: C [place]: [place] - Anesthesia: Postop Eval I Current [...] document: Postop Eval 1 completed: Yes 08/28/24 6593 <Electronically signed by Yang Vicente > Date _ Yang Vicente Cosigner Signature: Date CC: ~ Signed [facility] Work Phone: 1(606) 404-756304-17-2025 Consult note Author Mikael [facility] Note Date/Time August 28, 2024 1:2 0pm [facility] Medical Records Department [address] [place] [address] Pre-Anesthesia Evaluation 08/28/24 1309 MR#: [id number] Acct: [id number] Name: KENYATTA CARRILLO Rep #:[id number] : 1960 63 From: Mikael Vargas MD PCP: Dr. Naye Sheets MD Status:ADM I N Y Race: C Location: [place] - ADDENDUM by Dr. 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: Anesthesia History - senior process engineer Hx Hospitalization No 07/03/19 19:44 Any Problems [...] take am of surgery PONV PONV - senior process engineer: PONV - senior process engineer Female HX of Motion Sickness HX of N/V After Surgery Non-Smoker Duration of Surgery greater than 60 minutes Number of Risk Factors PONV Score Height & Weight Height & Weight: Anesthesia: Height & Weight Height 6 ft 08/28/24 12:59 Weight: 89.4 kg 08/28/24 12:59 Body Mass Index (BMI) 26.7 08/28/24 12:59 Respiratory Assessment Respiratory Assessment - senior process engineer: Respiratory Tract Infection Hx - senior process engineer Hx Respiratory Tract Infection No 08/28/24 03:35 Any additional information?: Yes Hx Respiratory Tract Infection: Yes (Patient has had a on and off cough for about couple weeks.) STOP Sleep Apnea STOP Sleep Apnea - senior process engineer: STOP Sleep Apnea - senior process engineer Hx Hypertension No 08/27/24 15:23 Hx Sleep [...] Tobacco Use History Tobacco Use History - senior process engineer: Tobacco Use History - senior process engineer Tobacco Use Non-smoker 04/08/19 10:31 Smoking Status Never smoker 08/26/24 22:34 Hx Tobacco Use No 08/26/24 22:34 Years Smoking Packs Smoked per Day Smoking Cessation Date was Yes - quit smoking within 15 08/26/24 22:34 within the last 15 years years Hx Smoking Cessation Date Hx Smoking Cessation No 08/26/24 22:34 Counseling Hematologic Medial History Hematologic Hx - senior process engineer: Hematologic Medical Hx - clinical documentation consultant Hx of Blood Transfusion Yes 08/26/24 22:34 [...] confused, unrespo /Reproduction History /Reproductive History - senior process engineer: /Reproductive Hx- senior process engineer Hx Now No 08/28/24 03:35 Gestational Age [...] Mg Delay Rel.Tablet PO Not Given BID [facility] Melatonin 3 mg 08/26/24 22:07 Melatonin 3 Mg Tablet PO QHS PRN PRN INSOMNIA Multivitamins/Minerals 1 tablet 08/27/24 08:00 08/28/24 09:56 Multivitamins,Ther W-Minerals Tablet PO Not Given BREAKFAST [facility] Ondansetron HCl 4 mg 08/26/24 22:07 Ondansetron [...] 100 Mg Tablet PO Not Given BREAKFAST [facility] Venlafaxine HCl 37.5 mg 08/27/24 10:00 08/28/24 10:14 Venlafaxine Xr 37.5 Mg Capsule PO Not Given DAILY [facility] PFSH Medical History Migraines Difficulty walking Urge [...] Mikael Mariscal Signature: Date CC: ~ Signed [facility] Work Phone: [phone]) 932-217804-17-2025 Consult note [facility] Medical Records Department [address] [place] [address] Anesthesia Postop Eval I 08/28/241452 MR#: [id number] Acct: [id number] Name: KENYATTA CARRILLO Rep #:[id number] : 1960 63 From: Yang Vicente PCP: Dr. Naye Sheets MD Status:ADM I N Y Race: C Location: [place] [address] Anesthesia: Postop Eval I Current Vital Signs [...] Yang Mariscal Signature: Date CC: ~ Signed [facility]04-17-2025 Procedure note [facility] Medical Records Department [address] [place] [address] EGD Report MR#: [id number] Acct: [id number] Name: KENYATTA CARRILLO Rep #:[id number] : 1960 63 From: Troy Self DO PCP: Dr. Naye Sheets MD Status:ADM I N Patient Name: Kenyatta Carrillo Procedure Date: 08/28/2024 [...] check healing. Procedure Code(s): --- Professional --- 12385, Small intestinal endoscopy, enteroscopy beyond second portion of duodenum, not including ileum; with biopsy, single or multiple CPT copyright 2021 [employer]. All rights reserved. The codes documented in this report are preliminary and upon rehab tech review may be revised to meet current compliance requirements. Troy Self DO 08/28/2024 2:50:25 PM This report has been signed electronically. Number of Addenda: 0 Note Initiated On: 08/28/2024 1:04 PM 08/28/24 2980 Date _ Troy Garzaignnarinder Signature: Date (if indicated) CC: Dr. Naye Sheets MD; Troy Self DO ~ Date Dictated: 04/17/25 1304 Date Transcribed: Counselor/Art Therapist: RF Signed [facility]04-17-2025 Procedure note [facility] Medical Records Department [address] [place] [address] Operative Report - CC Letter MR#: [id number] Acct: [id number] Name: KENYATTA CARRILLO Rep #:[id number] : [...] MD ~ Date Dictated: 08/28/241303 Date Transcribed: Counselor/Art Therapist: RF Signed [facility]04-17-2025 Consult note [facility] Medical Records Department [address] [place] [address] Pre-Anesthesia Evaluation 08/28/241308 MR#: [id number] Acct: [id number] Name: KENYATTA CARRILLO Rep #:[id number] : 1960 63 From: Mikeal Vargas MD PCP: Dr. Naye Sheets MD Status:ADM I N Y Race: C Location: [place] [address] - ADDENDUM by Dr. Mikael Vargas MD [...] Procedure(s): Esophagogastroduodenoscopy Anesthesia History Anesthesia History - senior process engineer: Anesthesia History - senior process engineer Hx Hospitalization No 07/03/19 19:44 Any Problems [...] take am of surgery PONV PONV - senior process engineer: PONV - senior process engineer Female HX of Motion Sickness HX of N/V After Surgery Non-Smoker Duration of Surgery greater than 60 minutes Number of Risk Factors PONV Score Height & Weight Height & Weight: Anesthesia: Height & Weight Height 6 ft 08/28/24 12:59 Weight: 89.4 kg 08/28/24 12:59 Body Mass Index (BMI) 26.7 08/28/24 12:59 Respiratory Assessment Respiratory Assessment - senior process engineer: Respiratory Tract Infection Hx - senior process engineer Hx Respiratory Tract Infection No 08/28/24 03:35 Any additional information?: Yes Hx Respiratory Tract Infection: Yes (Patient has had a on and off cough for about couple weeks.) STOP Sleep Apnea STOP Sleep Apnea - senior process engineer: STOP Sleep Apnea - senior process engineer Hx Hypertension No 08/27/24 15:23 Hx Sleep [...] Tobacco Use History Tobacco Use History - senior process engineer: Tobacco Use History - senior process engineer Tobacco Use Non-smoker 04/08/19 10:31 Smoking Status Never smoker 08/26/24 22:34 Hx Tobacco Use No 08/26/24 22:34 Years Smoking Packs Smoked per Day Smoking Cessation Date was Yes - quit smoking within 15 08/26/24 22:34 within the last 15 years years Hx Smoking Cessation Date Hx Smoking Cessation No 08/26/24 22:34 Counseling Hematologic Medial History Hematologic Hx - senior process engineer: Hematologic Medical Hx - clinical documentation consultant Hx of Blood Transfusion Yes 08/26/24 22:34 [...] confused, unrespo /Reproduction History /Reproductive History - senior process engineer: /Reproductive Hx- senior process engineer Hx Now No 08/28/24 03:35 Gestational Age [...] 100 Mg Tablet PO Not Given BREAKFAST [facility] Venlafaxine HCl 37.5 mg 08/27/24 10:00 08/28/24 [...] MD Cosigner Signature: Date CC: ~ Signed [facility]04-17-2025 Progress note Author Deven Porter [facility] Note Date/Time August 28, 2024 8:1 0[facility] Medical Records Department [address] [place] [address] Progress Note - Hospitalist 08/28/24 0715 MR#: [id number] Acct: [id number] Name: KENYATTA CARRILLO Rep #:[id number] : 1960 63 From: Deven Porter MD PCP: Dr. 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 Distended gallbladder with [...] patient presentation Charges/Coding Visit Charges Inpatient E&M: 31279 Subs Hosp L2 08/28/24 0810 <Electronically signed by Deven Porter MD> Cosigner Signature (if applicable): CC: ~ Signed [facility] Work Phone: 1(326) 584-518004-17-2025 Progress note [facility] Medical Records Department [address] [place] [address] Progress Note - Hospitalist 08/28/2415 MR#: [id number] Acct: [id number] Name: KENYATTA CARRILLO Rep #:[id number] : 1960 63 From: Deven Porter MD PCP: Dr. 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 Distended gallbladder with [...] patient presentation Charges/Coding Visit Charges Inpatient E&M: 95180 Subs Hosp L2 08/28/24 0810 Cosigner Signature (if applicable): CC: ~ Signed [facility]04-17-2025 Radiology Diagnostic study note [facility] Imaging Services [address] [facility] [place], [place] [address] Abdomen Limited MR#: [id number] Acct: [id number] Name: KENYATTA CARRILLO Rep #: [id number] : 1960 F 63 From: El Elkins MD PCP: Dr. Naye Sheets MD Status: ADM I N Study:Abdomen Limited Date of Exam: 08/12 12/05 Exam# [id number] Ordering Dr: Tomy Porter MD PROCEDURE: ABDOMEN [...] secondary to overlying bowel gas. Reading Location: [place] [address] CC: Dr. Deven Porter MD; Dr. Naye Sheets MD ~ Counselor/Art Therapist: Signed [facility]04-16-2025 Discharge summary Author Jesus Flynn [facility] Note Date/Time August 27, 2024 3:2 2pm [facility] Medical Records Department [address] [place] [address] Emergency Department Summary 08/26/24 MR#: [id number] Acct: [id number] Name: KENYATTA CARRILLO Rep #:[id number] : 1960 63 From: Jesus Campoverde PCP: Dr. Naye Sheets MD Status:ADM I N Location: [facility] HG441-5 HPI History of Present Illness Chief Complaint: [...] (Auto) 48.6 Lymph % (Auto) 42.1 H Hitchcock % (Auto) 6.6 Eos % (Auto) 1.5 [...] Clarity Cloudy Urine pH 6.0 Ur Specific [place] 1.015 Urine Protein 30 H Urine Glucose [...] 10. Additional description as above. Reading Location: [id number] Hip/Pelvis X-Ray 08/26/24 18:16 IMPRESSION: No acute fracture. Postop changes as described above. Severe narrowing of the left hip joint. [facility] pelvis was obtained. There is questionable trace pancreatitis. There is a distended gallbladder and cholelithiasis. There is noevidence of inflammation or cholecystitis. There is wall thickening of the descending and rectosigmoid colon. This was interpreted by the radiologist was also independently reviewed by myself. Management Discussion w/another healthcare provider: Hospitalist and clothing worker/Case management Treatment and Re-Evaluation :: Patient [...] Urinary tract infection, Alcohol intoxication Disposition Disposition: [facility] Discharge Date/Time: 08/26/24 22:08 What to do if you have Problems For any increased pain, shortness of breath, bleeding, nausea or vomiting, chestpain, or any unexpected problems, contact your Primary Care Provider. Call [facility] ([phone]) or report to the closest Emergency Room. Call 911 if necessary. 08/27/24 1522 <Electronically signed by Jesus Flynn DO> Cosigner Signature (if applicable): CC: Dr. Naye Sheets MD ~ Signed [facility] Work Phone: 1(852) 940-484804-16-2025 Discharge summary [facility] Medical Records Department [address] [place] [address] Emergency Department Summary 08/26/24 MR#: [id number] Acct: [id number] Name: KENYATTA CARRILLO Rep #:[id number] : 1960 63 From: Jesus Campoverde PCP: Dr. Naye Sheets MD Status:ADM I N Location: [place] [address] History of Present Illness Chief [...] (Auto) 48.6 Lymph % (Auto) 42.1 H Hitchcock % (Auto) 6.6 Eos % (Auto) 1.5 [...] Clarity Cloudy Urine pH 6.0 Ur Specific [place] 1.015 Urine Protein 30 H Urine Glucose [...] 10. Additional description as above. Reading Location: [id number] Hip/Pelvis X-Ray 08/26/24 18:16 IMPRESSION: No acute [...] Management Discussion w/another healthcare provider: Hospitalist and clothing worker/Case management Treatment and Re-Evaluation :: Patient [...] Alcohol intoxication Disposition Disposition: [facility] Discharge Date/Time: 08/26/24 22:08 What to do if you have Problems For any increased pain, shortness of breath, bleeding, nausea or vomiting, chestpain, or any unexpected problems, contact your Primary Care Provider. Call [facility] ([phone]) or report tothe closest Emergency Room. Call 911 if necessary. 08/27/24 1522 Cosigner Signature (if applicable): CC: Dr. Naye Sheets MD ~ Signed [facility]04-16-2025 Progress note Author Deven Porter [facility] Note Date/Time August 27, 2024 9:3 1am [facility] Medical Records Department [address] [place] [address] Progress Note - Hospitalist 08/27/24 0728 MR#: [id number] Acct: [id number] Name: KENYATTA CARRILLO Rep #:[id number] : 1960 63 From: Deven Porter MD PCP: Dr. Naye Sheets MD Status:ADM I N Location: [place] [address] Reason for Visit Reason for Visit: Diagnoses [...] (Auto) 48.6, Lymph % (Auto) 42.1 H, Hitchcock % (Auto) 6.6, Eos % (Auto) 1.5, [...] Clarity Cloudy, Urine pH 6.0, Ur Specific [place] 1.015, Urine Protein 30 H, Urine Glucose [...] (Auto) 75.5 H, Lymph % (Auto) 13.0L, Hitchcock % (Auto) 10.5 H, Eos % (Auto) [...] 10. Additional description as above. Reading Location: [facility] Hip/Pelvis X-Ray 08/26/24 18:16 IMPRESSION: No acute fracture. Postop changes as described above. Severe narrowing of the left hip joint. [facility] Physical Exam Narrative GENERAL: cooperative HEENT: Atraumatic; [...] patient presentation Charges/Coding Visit Charges Inpatient E&M: 24793 Subs Hosp L3 08/27/24 0931 <Electronically signed by Deven Porter MD> Cosigner Signature (if applicable): CC: ~ Signed [facility] Work Phone: 1(475) 963-893704-16-2025 Progress note [facility] Medical Records Department [address] [facility] [place] [address] Progress Note - Hospitalist 08/27/24 0728 MR#: [id number] Acct: [id number] Name: KENYATTA CARRILLO Rep #:[id number] : 1960 63 From: Deven Porter MD PCP: Dr. Naye Sheets MD Status:ADM I N Location: [place] [address] Reason for Visit Reason for Visit: Diagnoses [...] %(Auto) 48.6, Lymph % (Auto) 42.1 H, Hitchcock % (Auto) 6.6, Eos % (Auto) 1.5, [...] Clarity Cloudy, Urine pH 6.0, Ur Specific [place] 1.015, Urine Protein 30 H, Urine Glucose [...] (Auto) 75.5 H, Lymph % (Auto) 13.0L, Hitchcock % (Auto) 10.5 H, Eos % (Auto) [...] 10. Additional description as above. Reading Location: [facility] Hip/Pelvis X-Ray 08/26/24 18:16 IMPRESSION: No acute fracture. Postop changes as described above. Severe narrowing of the left hip joint. [facility] Physical Exam Narrative GENERAL: cooperative HEENT: Atraumatic; [...] patient presentation Charges/Coding Visit Charges Inpatient E&M: 44305 Subs Hosp L3 08/27/24 0931 Cosigner Signature (if applicable): CC: ~ Signed [facility]04-15-2025 History and physical note Author Tiff Ramires [facility] Note Date/Time August 26, 2024 7:3 8pm [facility] Medical Records Department [address] [place] [address] H&P Exam - Hospitalist 08/26/24 1832 MR#: [id number] Acct: [id number] Name: KENYATTA CARRILLO Rep #:[id number] : 1960 63 From: Tiff Ramires MD PCP: Dr. Naye Sheets MD Status:ADM I N Location: [place] [address] HPI - General General Date of Admission: 08/26/24 Date of Service: 08/26/24 Chief Complaint: N/V, coffee ground emesis, abdominal pain. HPI Narrative The patient is a 63 y/o F w/ PMHx: Chronic alcoholic liver disease/chronic alcoholic hepatitis, Severe protein calorie malnutrition, GERD w/ Hx GI bleed, Anxiety and Depression/Bipolar disorder, Hypothyroidism, Former tobacco use, Chronic oropharyngeal phase dysphagia who presents to the [facility] ED on 08/26/24 with history of intermittent [...] with WBC 12.8, hemoglobin 13.6, MCV 90.9, [id number] with lymphocytosis, coags unremarkable aside PT 15.2, [...] (Auto) 48.6, Lymph % (Auto) 42.1 H, Hitchcock % (Auto) 6.6, Eos % (Auto) 1.5, [...] Clarity Cloudy, Urine pH 6.0, Ur Specific [place] 1.015, Urine Protein 30 H, Urine Glucose [...] 10. Additional description as above. Reading Location: [id number] Assessment & Plan Assessment/Plan (1) GI bleed: PLAN: Plan The patient is a 63 y/o F w/ PMHx: Chronic alcoholic liver disease/chronic alcoholic hepatitis, Severe protein calorie malnutrition, GERD w/ Hx GI bleed, Anxiety and Depression/Bipolar disorder, Hypothyroidism, Former tobacco use, Chronic oropharyngeal phase dysphagia who presents to the [facility] ED on 08/26/24 with history of intermittent [...] pelvic ultrasound, will need to follow-up with PCP/HOME HEALTH AIDE. #7. Chronic Kidney Disease Stage II per [...] Time: 16minutes. Charges/Coding Visit Charges Inpatient E&M: 12327 Init Hosp L3 Procedures Hospitalists Procedures: 27708 Advncd Care Plan 30 Min 08/26/241937 <Electronically signed by Tiff Ramires MD> Cosigner Signature (if applicable): CC: Dr. Tiff Ramires MD; Dr. Naye Sheets MD~ Signed [facility] Work Phone: 1(458) 357-629004-15-2025 History and physical note Author Tiff Ramires [facility] Note Date/Time August 26, 2024 7:3 8pm [facility] Medical Records Department [address] [place] [address] H&P Exam - Hospitalist 08/26/24 1832 MR#: [id number] Acct: [id number] Name: KENYATTA CARRILLO Rep #:[id number] : 1960 63 From: Tiff Ramires MD PCP: Dr. Naye Sheets MD Status:ADM I N Location: [place] [address] HPI - General General Date of Admission: 08/26/24 Date of Service: 08/26/24 Chief Complaint: N/V, coffee ground emesis, abdominal pain. HPI Narrative The patient is a 63 y/o F w/ PMHx: Chronic alcoholic liver disease/chronic alcoholic hepatitis, Severe protein calorie malnutrition, GERD w/ Hx GI bleed, Anxiety and Depression/Bipolar disorder, Hypothyroidism, Former tobacco use, Chronic oropharyngeal phase dysphagia who presents to the [facility] ED on 08/26/24 with history of intermittent [...] with WBC 12.8, hemoglobin 13.6, MCV 90.9, [id number] with lymphocytosis, coags unremarkable aside PT 15.2, [...] (Auto) 48.6, Lymph % (Auto) 42.1 H, Hitchcock % (Auto) 6.6, Eos % (Auto) 1.5, [...] Clarity Cloudy, Urine pH 6.0, Ur Specific [place] 1.015, Urine Protein 30 H, Urine Glucose [...] 10. Additional description as above. Reading Location: [id number] Assessment & Plan Assessment/Plan (1) GI bleed: PLAN: Plan The patient is a 63 y/o F w/ PMHx: Chronic alcoholic liver disease/chronic alcoholic hepatitis, Severe protein calorie malnutrition, GERD w/ Hx GI bleed, Anxiety and Depression/Bipolar disorder, Hypothyroidism, Former tobacco use, Chronic oropharyngeal phase dysphagia who presents to the [facility] ED on 08/26/24 with history of intermittent [...] coffee-ground emesis now, will admit [facility] given stable vital sign, maintain on [...] pelvic ultrasound, will need to follow-up with PCP/HOME HEALTH AIDE. #7. Chronic Kidney Disease Stage II per [...] Time: 16minutes. Charges/Coding Visit Charges Inpatient E&M: 02155 Init Hosp L3 Procedures Hospitalists Procedures: 58984 Advncd Care Plan 30 Min 08/26/241937 <Electronically signed by Tiff Ramires MD> Cosigner Signature (if applicable): CC: Dr. Tiff Ramires MD; Dr. Naye Sheets MD~ Signed [facility] Work Phone: 1(265) 488-457504-15-2025 History and physical note [facility] Medical Records Department [address] [place] [address] H&P Exam - Hospitalist 08/26/24 1832 MR#: [id number] Acct: [id number] Name: KENYATTA CARRILLO Rep #:[id number] : 1960 63 From: Tiff Ramires MD PCP: Dr. Naye Sheets MD Status:ADM I N Location: [place] [address] HPI - General General Date of Admission: 08/26/24 Date of Service: 08/26/24 Chief Complaint: N/V, coffee ground emesis, abdominal pain. HPI Narrative The patient is a 63 y/o F w/ PMHx: Chronic alcoholic liver disease/chronic alcoholic hepatitis, Severe protein calorie malnutrition, GERD w/ Hx GI bleed, Anxiety and Depression/Bipolar disorder, Hypothyroidism, Former tobacco use, Chronic oropharyngeal phase dysphagia who presents to the [facility] ED on 08/26/24 with history of intermittent [...] with WBC 12.8, hemoglobin 13.6, MCV 90.9, [id number] with lymphocytosis, coags unremarkable aside PT 15.2, [...] %(Auto) 48.6, Lymph % (Auto) 42.1 H, Hitchcock % (Auto) 6.6, Eos % (Auto) 1.5, [...] Clarity Cloudy, Urine pH 6.0, Ur Specific [place] 1.015, Urine Protein 30 H, Urine Glucose [...] 10. Additional description as above. Reading Location: [facility] Assessment & Plan Assessment/Plan (1) GI bleed: PLAN: Plan The patient is a 63 y/o F w/ PMHx: Chronic alcoholic liver disease/chronic alcoholic hepatitis, Severe protein calorie malnutrition, GERD w/ Hx GI bleed, Anxiety and Depression/Bipolar disorder, Hypothyroidism, Former tobacco use, Chronic oropharyngeal phase dysphagia who presents to the [facility] ED on 08/26/24 with history of intermittent [...] pelvic ultrasound, will need to follow-up with PCP/HOME HEALTH AIDE. #7. Chronic Kidney Disease Stage II per [...] Time: 16minutes. Charges/Coding Visit Charges Inpatient E&M: 13682 Init Hosp L3 Procedures Hospitalists Procedures: 93581 Advncd Care Plan 30 Min 08/26/24 1938 Cosigner Signature (if applicable): CC: Dr. Tiff Ramires MD; Dr. Naye Sheets MD~ Signed [facility]04-15-2025 Radiology Diagnostic study note [facility] Imaging Services [address] [place], [place] [id number] HIP, UNI W/ Pelvis 2-3 Views MR#: [id number] Acct: [id number] Name: KENYATTA CARRILLO Rep #: [id number] : 1960 F 63 From: Veronica Benjamin DO PCP: Dr. Naye Sheets MD Status: REG E R Study:HIP, UNI W/ Pelvis 2-3 Views Date of Ex am: 08/26/24 Exam# [id number] Ordering Dr: Jesus Flynn DO PROCEDURE: HIP, [...] of the left hip joint. Reading [facility] CC: Dr. Jesus Flynn DO; Dr. Naye Sheets MD ~ Counselor/Art Therapist: Signed [facility]04-15-2025 Radiology Diagnostic study note [facility] Imaging Services [address] [place], [place] [address] Abdomen/Pelvis W IV Cont ONLY MR#: [id number] Acct: [id number] Name: KENYATTA CARRILLO Rep #: [id number] : 1960 F 63 From: Radha Payton MD PCP: Dr. Naye Sheets MD Status: REG E R Study:Abdomen/Pelvis W IV Cont ONLY Date of E xam: 08/26/24 Exam# [id number] Ordering Dr: Jesus Flynn DO PROCEDURE: ABDOMEN/PELVIS [...] 10. Additional description as above. Reading Location: [id number] CC: Dr. Jesus Flynn, DO; Dr. Naye Sheets MD ~ Counselor/Art Therapist: Signed [facility]04-09-2025 Telephone encounter Note* Telephone Encounter - Neelam Trimble MA - 08/20/2024 11:40 AM EDT Spoke with patient whom states she was already contacted by [facility] last week sometime andinformed she had been dismissed from the practice. She stated if she has any follow up questions she'll call the [facility] back. I gave her the number again so she had it. Neelam Trimble MA [facility]04-09-2025 Miscellaneous Notes* Telephone Encounter - Neelam Trimble MA - 08/20/2024 11:40 AM EDT Spoke with patient whom states she was already contacted by [facility] last week sometime andinformed she had been dismissed from the practice. She stated if she has any follow up questions she'll call the [facility] office back. I gave her the number again so she had it. Neelam Trimble MA * Telephone Encounter - Naye Sheets MD - 08/20/2024 11:19 AM EDT She was dismissed for no shows. She should be contacting the [facility]'s office with this and wouldhave been informed about this? * Telephone Encounter - Alison Cespedes LPN - 08/20/2024 10:39 AM EDT Patient calling to reschedule her appt to follow up after snf visit, she can not get out to [...] appt lately. Please advise [facility] Telephone encounter Note * Telephone Encounter - Liseth Lockwood LPN - 08/20/2024 11:32 AM EDT José Miguel ph. [phone]. [employer] Called and left detailed message for José Miguel that patient has been dismissed from practice. Also let her know that patient is reporting fall to office and that she is having trouble with her hip that she can't get to her car. Advised her to call office with any questions. [facility]04-09-2025 Miscellaneous Notes* Telephone Encounter - Liseth Lockwood LPN - 08/20/2024 11:32 AM EDT José Miguel ph. [phone]. [employer] Called and left detailed message for José Miguel that patient has been dismissed from practice. Also let her know that patient is reporting fall to office and that she is having trouble with her hip that she can't get to her car. Advised her to call office with any questions. [facility] Telephone encounter Note * Telephone Encounter - Naye Sheets MD - 08/20/2024 11:19 AM EDT She was dismissed for no shows. She [facility] with this and wouldhave been informed about this? [facility]04-09-2025 Telephone encounter Note* Telephone Encounter - Alison Cespedes LPN - 08/20/2024 10:39 AM EDT Patient calling to reschedule her appt to follow up after snf visit, she can not get out to [...] getting to her appt lately. Please advise [facility]04-08-2025 NotePatient Outreach (FAMPWS) KENYATTA CARRILLO ([id number]) 1960 F Date Time Provider Department 08/19/24 [...] for screening mammogram for breast cancer [Z12.31] Order(s):[facility] RON HDEZ [[id number]] Order #: [id number] FUTURE Prescriptions as of 09/19/2024 - calcium carbonate (TUMS) 500 mg chew Take 1 tablet by mouth two times a day as needed. - venlafaxine ER (EFFEXOR XR) 37.5 mg 24 hr capsule Take 1 capsule by mouth daily with breakfast. - prednisoLONE sodium phosphate (ORAPRED) 15 mg/5 mL (3 mg/mL) oral liquid Take 13.3 mL by mouth once daily. Follow-up with your toll patrolman to decide on tapering down do not stop abruptly without plan for discontinuation with your toll patrolman - pantoprazole DR (PROTONIX) 40 mg tablet [...] [R53.81] 11/22/2020 Diagnosed: 05/22/2023 Other physical therapy [JYI1161] 02/02/2003 Diagnosed: 05/22/2023 Pain in right hip [M25.551] 11/23/2020 Diagnosed: 05/22/2023 Polyp of colon [K63.5] 05/22/2023 Diagnosed: 05/22/2023 Tear (more content not included)...[facility]03-20-2025 Telephone encounter Note* Telephone Encounter - Edna Sales MA - 07/31/2024 5:11 PM EDT Patient canceled visit and rescheduled for next week. [facility]03-20-2025 Miscellaneous Notes* Telephone Encounter - Edna Sales [...] 11:49 AM EDT Selene Swenson SW from [facility] calls and states that she faxed over discharge paperwork from [facility] on Sunday07/28/2024. Selene reports that she faxed [...] apartment she had prior to stay at [facility]. Patient was told that she has to find somewhere else new to stay by 08/12. Selene worked with patient on 5 housing applications. Because of patient having to move at the end of month, Home health orders were never ordered. Selene asking if provider can write these orders after seeing patient tomorrow? Selene had all medication sent to [facility] including nebulizer and nebulizer solutions. Selene reports that [facility] did not have nebulizer machine. Provider may have to write order for this as well. Selene aware that patient had declined [facility]. Caregivers would not help her to move so she declined services. Selene tried to explain to patient that Caregivers could help her with nursingthings such as dressing changes and picking up medications and that patient should not have declined services. Kimberly Sanchez RN documented [facility]2025 Telephone encounter Note * Telephone Encounter - Liseth Lockwood LPN - 07/30/2024 12:55 PM EDT We did receive this fax. Patient has not been seen here since 10/2022 so if patient doesn't come to visit we will not be able to give any orders for her. [facility]03-19-2025 Telephone encounter Note* Telephone Encounter - Kimberly Sanchez RN - 07/30/2024 11:49 AM EDT Selene Swenson SW from [facility] calls and states that she faxed over discharge paperwork from [facility] on Sunday07/28/2024. Selene reports that she faxed [...] apartment she had prior to stay at [facility]. Patient was told that she has to find somewhere else new to stay by 08/12. Selene worked with patient on 5 housing applications. Because of patient having to move at the end of month, Home health orders were never ordered. Selene asking if provider can write these orders after seeing patient tomorrow? Selene had all medication sent to [facility] including nebulizer and nebulizer solutions. Selene reports that [facility] did not have nebulizer machine. Provider may have to write order for this as well. Selene aware that patient had declined [facility]. Caregivers would not help her to move so she declined services. Selene tried to explain to patient that Caregivers could help her with nursingthings such as dressing changes and picking up medications and that patient should not have declined services. Kimberly Sanchez, RN [facility]03-18-2025 Telephone encounter Note* Telephone Encounter - Naye Sheets MD - 07/29/2024 2:05 PM EDT Ok. Agree [employer] needs notified. Thanks [facility]03-18-2025 Miscellaneous Notes* Telephone Encounter - Naye Sheets MD - 07/29/2024 2:05 PM EDT Ok. Agree [employer] needs notified. Thanks * Telephone Encounter - Dianne Caba MSW - 07/29/2024 1:45 PM EDT Sw received message from [employer] Mart[employer]. She reports that patient came home this pastFriday from [facility]. [facility] when out today to reopen her case for home staging specialist assistance. Notes patient was vomiting when [facility] was out at home and did not have her medications. Patient is refusing home care assistance services from [facility]. José Miguel noted that she has called [employer] to update them on this issue. EVANS Martínez notes that she is calling to update Dr. Sheets as well with this information. José Miguel ph. [phone]. documented in [facility]03-[facility]-2025 Telephone encounter Note * Telephone Encounter - Dianne Caba MSW - 07/29/2024 1:45 PM EDT Sw received message from [employer] [place] [employer]. She reports that patient came home this pastFr from [facility]. [facility] when out today to reopen her case for home staging specialist assistance. Notes patient was vomiting when [facility] was out at home and did not have her medications. Patient is refusing home care assistance services from [facility]. José Miguel noted that she has called [employer] to update them on this issue. EVANS Martínez notes that she is calling to update Dr. Sheets as well with this information. José Miguel ph. [phone]. [facility]03-17-2025 Telephone encounter Note* Telephone Encounter - Liseth Lockwood LPN - 07/28/2024 6:44 PM EDT Patient not seen since 10/2022 we can't sign her orders for [facility]os[facility]. [facility]03-17-2025 Miscellaneous Notes* Telephone Encounter - Liseth Lockwood LPN - 07/28/2024 6:44 PM EDT Patient not seen since 10/2022 we can't sign her orders for [facility]. documented in this encounterK[facility]03-12-2025 Evaluation note* Diagnosis Onset Date Resolution Status Admit Date Alcoholic hepatitis acute July 23, 2024 12:18pm Upper GI bleed acute July 12:18pm Alcohol intoxication acute Apri l 2024 6:33pm GI bleed acute August 26 6:33pm Upper GI bleed acute August 6:33pm Urinary tract infection acute A pril 2024 6:33pm [facility] Work Phone: 1(446) 865-893303-12-2025 Evaluation note* Diagnosis Onset Date Resolution Status [...] tract infection acute A pril 2024 6:33pm [facility] Work Phone: [phone]) 819-987803-06-2025 Telephone encounter Note* Telephone Encounter - Alexy Newsome - 07/17/2024 10:00 AM EST Patient is an exclusion from post discharge call back program (Assisted Facility) [facility]03-06-2025 Miscellaneous Notes* Telephone Encounter - Alexy Newsome - 07/17/2024 10:00 AM EST Patient is an exclusion from post discharge call back program (Assisted Facility) documented in this encounterKet[facility]02-25-2025 Telephone encounter Note * Telephone Encounter - Karolina Larsen - 07/08/2024 3:35 PM EST Patient is an exclusion from post discharge call back program for discharge date of 06/28/2024. (SNF) [facility]02-25-2025 Miscellaneous Notes* Telephone Encounter - Karolina Larsen - 07/08/2024 3:35 PM EST Patient is an exclusion from post discharge call back program for discharge date of 06/28/2024. (SNF) documented in this encounterKet[facility] Health02-18-2025 Telephone encounter Note * Telephone Encounter - Susi Patterson - 07/01/2024 11:33 AM EST Patient is an exclusion from post discharge call back program for discharge date of 06/28/2024. (SNF) [facility]02-18-2025 Miscellaneous Notes* Telephone Encounter - Susi Patterson - 07/01/2024 11:33 AM EST Patient is an exclusion from post discharge call back program for discharge date of 06/28/2024. (SNF) documented in this encounterKettering Health02-17-2025 History of Present illness Narrative* Gracie Gillis [...] airway protection and 3 units pRBC at [facility]. EGD showedulcerative esophagitis and adherent clot [...] mL by mouth oncedaily. Follow-up with your toll patrolman to decide on tapering down do not stop abruptly without plan for discontinuation with your toll patrolman thiamine (VITAMIN B1) 100 mg tablet 1 tablet by ORAL/FEEDING TUBE route once daily. venlafaxine ER (EFFEXOR XR) 37.5 mg 24 hr capsule Take 1 capsule by mouth daily with breakfast. zinc oxide 20 % ointment Apply to affected area as needed. Preferred pharmacy: [id number] [place] [address] - [address] [facility] [id number] [place] [phone] Estimated Creatinine Clearance: 127.2 mL/min (A) (based on SCr of 0.54 mg/dL (L)). Estimated Glomerular Filtration Rate (mL/min/1.73m ) Date Value 06/28/2024 102 eGFR- (no units) Date Value 11/22/2020 Greater than 60 Additional follow up: Next 5 Appointments Date and Time Provider Department Dept Phone 09/10/2024 2:30 PM Bernardo Carr [facility] [phone] Interventions Made: None Pharmacist Recommendations Made None Care Coordination: None at this time Time spent on patient: 0-15 minutes Gracie Gillis RPh June 30, 2024 2:39 PM documented in this encounterKettering Health02-17-2025 NoteHNO ID: [id number] Author: GRACIE GILLIS [facility] Service: Pharmacy Author Type: Pharmacist Type: Progress [...] airway protection and 3 units pRBC at [facility]. EGD showed ulcerative esophagitis and adherent [...] by mouth once daily. Follow-up with your toll patrolman to decide on tapering down do not stop abruptly without plan for discontinuation with your toll patrolman thiamine (VITAMIN B1) 100 mg tablet 1 tablet by ORAL/FEEDING TUBE route once daily. venlafaxine ER (EFFEXOR XR) 37.5 mg 24 hr capsule Take 1 capsule by mouth daily with breakfast. zinc oxide 20 % ointment Apply to affected area as needed. Preferred pharmacy: [id number] [place] [address] - [address] [facility] [id number] [place] [address] Estimated Creatinine Clearance: 127.2 mL/min (A) (based on SCr of 0.54 mg/dL (L)). Estimated Glomerular Filtration Rate (mL/min/1.73m?) Date Value 06/28/2024 102 eGFR- (no units) Date Value 11/22/2020 Greater than 60 Additional follow up: Next 5 Appointments Date and Time Provider Department Dept Phone 09/10/2024 2:30 PM Bernardo Carr [facility] [phone] Interventions Made: None Pharmacist Recommendations Made None Care Coordination: None at this time Time spent on patient: 0-15 minutes Gracie Gillis RPh June 30, 2024 2:39 [facility]02-17-2025 NotePatient Outreach (PHRXRF) KENYATTA CARRILLO ([id number]) 1960 F Date Time Provider Department 06/30/24 GRACIE GILLIS PHRXRF During your visit today, we recorded the following information about you: Gracie Gillis [facility] 06/30/2024 2:42 PM Signed TRANSITION CARE MANAGEMENT [...] airway protection and 3 units pRBC at [facility]. EGD showed ulcerative esophagitis and adherent [...] by mouth once daily. Follow-up with your toll patrolman to decide on tapering down do not stop abruptly without plan for discontinuation with your toll patrolman thiamine (VITAMIN B1) 100 mg tablet 1 tablet by ORAL/FEEDING TUBE route once daily. venlafaxine ER (EFFEXOR XR) 37.5 mg 24 hr capsule Take 1 capsule by mouth daily with breakfast. zinc oxide 20 % ointment Apply to affected area as needed. Preferred pharmacy: [id number] [place] [address] [address] [facility] - [phone] [address] [facility] [place] [address] Estimated Creatinine Clearance: 127.2 mL/min (A) (based on SCr of 0.54 mg/dL (L)). Estimated Glomerular Filtration Rate (mL/min/1.73m?) Date Value 06/28/2024 102 eGFR- (no units) Date Value 11/22/2020 Greater than 60 Additional follow up: Next 5 Appointments Date and Time Provider Department Dept Phone 09/10/2024 2:30 PM Bruno Bernardo Ray [facility] [phone] Interventions Made: None Pharmacist Recommendations Made None Care Coordination: None at this time Time spent on patient: 0-15 minutes Gracie Gillis [facility] [facility] June 30, 2024 2:39 PM Allergies As of Date: 06/30/2024 Noted Allergy Reaction AMOXIL (AMOXICILLIN) 11/23/2021 2 - Rash Comments: Face and neck 06/2024: Appears to be tolerating Zosyn. Date Reviewed: 06/27/2024 Reviewed (more content not included)...[facility]02-14-2025 Note [facility]02-13-2025 [facility] 06-25-2024 [facility]02[facility]10[facility]09[facility]08[facility]02-08-2025 NoteHNO ID: [id number] Author: NOTE, INTERFACE, ? Service: ? Author Type: ? Type: Progress Notes Filed: 06/21/2024 02:49 Note Text: Epic Scheduled Downtime: 06/21/2024 1:00:00 AM to 06/21/2024 2:36:00 [facility]2025 NoteHNO ID: [id number] Author: DANETTE CHANDRA RN Service: ? Author Type: Registered Nurse Type: Nursing Progress Note Filed: 06/19/2024 18:52 Note Text: Other: Transferred pt [facility] bed.[facility]02-06-2025 NoteHNO ID: [id number] Author: DANETTE CHANDRA RN Service: ? Author Type: Registered Nurse Type: Nursing Progress Note Filed: 06/19/2024 17:59 Note Text: Other: Report called to 7100 RN. Bed not clean at this point.[facility]02[facility]25 Note [facility]02[facility]02[facility]20[facility]-15-2024 [facility]20[facility]-2025 NoteHNO ID: [id number] Author: CHIDI ABAD APRN.CNP Service: ? Author Type: Nurse Practitioner Type: Procedures Filed: 06/19/2024 00:25 Note Text: Arterial Line PROCEDURE NOTE Patient: Kenyatta Carrillo Date: June 14, 2024 Procedure Time: 34 INFORMED CONSENT: The patient was incapable of consenting to the procedure due to incapacity, and the legal bottling equipment sales representative was unable to be contacted in [...] LINE PLACEMENT: Sterile PRIMARY PROCEDURALIST: Chidi CEDENO TOUR ESCORT(S): none PROCEDURE NARRATIVE Site Marked: Yes Malena?s [...] Carrillo DATE: 06/14/24 TIME: 0005 PAGER/CONTACT #: [place] [id number] Procedure note* Chidi Abad APRN.CNP - 06/15/2024 1:25 AM EST Images from the original note were not included. Arterial Line PROCEDURE NOTE Patient: Kenyatta Carrillo Date: June 14, 2024 Procedure Time: 34 INFORMED CONSENT: The patient was incapable of consenting to the procedure due to incapacity, and the legal bottling equipment sales representative was unable to be contacted in [...] LINE PLACEMENT: Sterile PRIMARY PROCEDURALIST: Chidi CEDENO TOUR ESCORT(S): none PROCEDURE NARRATIVE Site Marked: Yes Malena [...] DATE: 06/14/24 TIME: 4 PAGER/CONTACT #: NANNETTE [facility] Work Phone: 1(217) 381-344102-02-2025 Procedure note* Chidi Abad APRN.CNP - 06/15/2024 1:25 AM EST Images from the original note were not included. Arterial Line PROCEDURE NOTE Patient: Kenyatta Carrillo Date: June 14, 2024 Procedure Time: 34 INFORMED CONSENT: The patient was incapable of consenting to the procedure due to incapacity, and the legal bottling equipment sales representative was unable to be contacted in [...] LINE PLACEMENT: Sterile PRIMARY PROCEDURALIST: Chidi CEDENO TOUR ESCORT(S): none PROCEDURE NARRATIVE Site Marked: Yes Malena [...] 4 PAGER/CONTACT #: NA documented in this encounterKettering Health02-01-2025 [facility]02[facility]01[facility]02[facility]01-[facility]25 [facility]-01[facility]25 [facility]02-01-2025 [facility]02-01-2025 Note SARS-COV-2 (AGENT OF COVID-19) RNA: Not detected INFLUENZA A RNA: Not detected INFLUENZA B RNA: Not detected RESPIRATORY SYNCYTIAL VIRUS (RSV) RNA: Not detectedMainegeneral Medical CenterComment on above:Performed By: #### [id number] ####[facility]LECLIA [id number] [address] STATES OF [id number] NoteHNO ID: [id number] Author: LORRAINE BERNARDO II, MD Service: ? Author Type: Physician Type: Progress Notes Filed: 06/19/2024 00:25 Note Text: Critical Care Transport Note Patient Name: Kenyatta Carrillo Service Date: June 13, 2024 Referring Facility: [facility]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 right femur, subsequent encounter for closed fracture with routine healing 10/19/2015 06/29/2016 documented as of this encounter (statuses as of 08/05/2021) [facility] of [facility] illness Narrative* Problem Noted Date Resolved Date Aseptic necrosis of bone of hip, right 9 06/28/2018 Overview: Added automatically from request for surgery [id number] Traumatic arthritis of hip, right 06/06/2018 06/28/2018 Overview: Added automatically from request for surgery [id number] Fracture of femur, intertrochanteric, right, gi sed 10/19/2015 06/29/2016 Displaced intertrochanteric fracture of right femur, subsequent encounter for closed fracture with routine healing 10/19/2015 06/29/2016 documented as of this encounter (statuses as of 08/10/2021) [facility] illness Narrative* Problem Noted Date Resolved Date Aseptic necrosis of bone of hip, right 9 06/28/2018 Overview: Added automatically from request for surgery [id number] Traumatic arthritis of hip, right 06/06/2018 06/28/2018 Overview: Added automatically from request for surgery [id number] Fracture of femur, intertrochanteric, right, gi sed 10/19/2015 06/29/2016 Displaced intertrochanteric fracture of right femur, subsequent encounter for closed fracture with routine healing 10/19/2015 06/29/2016 documented as of this encounter (statuses as of 09/26/2021) [facility] Narrative* Problem Noted Date Resolved Date Aseptic necrosis of bone of hip, right 9 06/28/2018 Overview: Added automatically from request for surgery [id number] Traumatic arthritis of hip, right 06/06/2018 06/28/2018 Overview: Added automatically from request for surgery [id number] Fracture of femur, intertrochanteric, right, gi sed 10/19/2015 06/29/2016 Displaced intertrochanteric fracture of right femur, subsequent encounter for closed fracture with routine healing 10/19/2015 06/29/2016 documented as of this encounter (statuses as of 10/03/2021) [facility] Narrative* Problem Noted Date Resolved Date Aseptic necrosis of bone of hip, right 9 06/28/2018 Overview: Added automatically from request for surgery [id number] Traumatic arthritis of hip, right 06/06/2018 06/28/2018 Overview: Added automatically from request for surgery [id number] Fracture of femur, intertrochanteric, right, gi sed 10/19/2015 06/29/2016 Displaced intertrochanteric fracture of right femur, subsequent encounter for closed fracture with routine healing 10/19/2015 06/29/2016 documented as of this encounter (statuses as of 10/14/2021) [facility] Narrative* Problem Noted Date Resolved Date Aseptic necrosis of bone of hip, right 9 06/28/2018 Overview: Added automatically from request for surgery [id number] Traumatic arthritis of hip, right 06/06/2018 06/28/2018 Overview: Added automatically from request for surgery [id number] Fracture of femur, intertrochanteric, right, gi sed 10/19/2015 06/29/2016 Displaced intertrochanteric fracture of right femur, subsequent encounter for closed fracture with routine healing 10/19/2015 06/29/2016 documented as of this encounter (statuses as of 11/08/2021) [facility] Narrative* Problem Noted Date Resolved Date Aseptic necrosis of bone of hip, right 9 06/28/2018 Overview: Added automatically from request for surgery [id number] Traumatic arthritis of hip, right 06/06/2018 06/28/2018 Overview: Added automatically from request for surgery [id number] Fracture of femur, intertrochanteric, right, gi sed 10/19/2015 06/29/2016 Displaced intertrochanteric fracture of right femur, subsequent encounter for closed fracture with routine healing 10/19/2015 06/29/2016 documented as of this encounter (statuses as of 11/10/2021) [facility] Narrative* Problem Noted Date Resolved Date Aseptic necrosis of bone of hip, right 9 06/28/2018 Overview: Added automatically from request for surgery [id number] Traumatic arthritis of hip, right 06/06/2018 06/28/2018 Overview: Added automatically from request for surgery [id number] Fracture of femur, intertrochanteric, right, gi sed 10/19/2015 06/29/2016 Displaced intertrochanteric fracture of right femur, subsequent encounter for closed fracture with routine healing 10/19/2015 06/29/2016 documented as of this encounter (statuses as of 11/23/2021) [facility] Narrative* Problem Noted Date Resolved Date Aseptic necrosis of bone of hip, right 9 06/28/2018 Overview: Added automatically from request for surgery [id number] Traumatic arthritis of hip, right 06/06/2018 06/28/2018 Overview: Added automatically from request for surgery [id number] Fracture of femur, intertrochanteric, right, gi sed 10/19/2015 06/29/2016 Displaced intertrochanteric fracture of right femur, subsequent encounter for closed fracture with routine healing 10/19/2015 06/29/2016 documented as of this encounter (statuses as of 12/12/2021) [facility] Narrative* Problem Noted Date Resolved Date Aseptic necrosis of bone of hip, right 9 06/28/2018 Overview: Added automatically from request for surgery [id number] Traumatic arthritis of hip, right 06/06/2018 06/28/2018 Overview: Added automatically from request for surgery [id number] Fracture of femur, intertrochanteric, right, gi sed 10/19/2015 06/29/2016 Displaced intertrochanteric fracture of right femur, subsequent encounter for closed fracture with routine healing 10/19/2015 06/29/2016 documented as of this encounter (statuses as of 01/25/2022) [facility] Narrative* Problem Noted Date Resolved Date Aseptic necrosis of bone of hip, right 9 06/28/2018 Overview: Added automatically from request for surgery [id number] Traumatic arthritis of hip, right 06/06/2018 06/28/2018 Overview: Added automatically from request for surgery [id number] Fracture of femur, intertrochanteric, right, gi sed 10/19/2015 06/29/2016 Displaced intertrochanteric fracture of right femur, subsequent encounter for closed fracture with routine healing 10/19/2015 06/29/2016 documented as of this encounter (statuses as of 01/30/2022) [facility] Narrative* Problem Noted Date Resolved Date Aseptic necrosis of bone of hip, right 9 06/28/2018 Overview: Added automatically from request for surgery [id number] Traumatic arthritis of hip, right 06/06/2018 06/28/2018 Overview: Added automatically from request for surgery [id number] Fracture of femur, intertrochanteric, right, gi sed 10/19/2015 06/29/2016 Displaced intertrochanteric fracture of right femur, subsequent encounter for closed fracture with routine healing 10/19/2015 06/29/2016 documented as of this encounter (statuses as of 03/22/2022) [facility] Narrative* Problem Noted Date Resolved Date Aseptic necrosis of bone of hip, right 9 06/28/2018 Overview: Added automatically from request for surgery [id number] Traumatic arthritis of hip, right 06/06/2018 06/28/2018 Overview: Added automatically from request for surgery [id number] Fracture of femur, intertrochanteric, right, gi sed 10/19/2015 06/29/2016 Displaced intertrochanteric fracture of right femur, subsequent encounter for closed fracture with routine healing 10/19/2015 06/29/2016 documented as of this encounter (statuses as of 04/24/2022) [facility] Narrative* Problem Noted Date Resolved Date Aseptic necrosis of bone of hip, right 9 06/28/2018 Overview: Added automatically from request for surgery [id number] Traumatic arthritis of hip, right 06/06/2018 06/28/2018 Overview: Added automatically from request for surgery [id number] Fracture of femur, intertrochanteric, right, gi sed 10/19/2015 06/29/2016 Displaced intertrochanteric fracture of right femur, subsequent encounter for closed fracture with routine healing 10/19/2015 06/29/2016 documented as of this encounter (statuses as of 05/02/2022) [facility] Narrative* Problem Noted Date Resolved Date Aseptic necrosis of bone of hip, right 9 06/28/2018 Overview: Added automatically from request for surgery [id number] Traumatic arthritis of hip, right 06/06/2018 06/28/2018 Overview: Added automatically from request for surgery [id number] Fracture of femur, intertrochanteric, right, gi sed 10/19/2015 06/29/2016 Displaced intertrochanteric fracture of right femur, subsequent encounter for closed fracture with routine healing 10/19/2015 06/29/2016 documented as of this encounter (statuses as of 05/17/2022) [facility] Narrative* Problem Noted Date Resolved Date Aseptic necrosis of bone of hip, right 9 06/28/2018 Overview: Added automatically from request for surgery [id number] Traumatic arthritis of hip, right 06/06/2018 06/28/2018 Overview: Added automatically from request for surgery [id number] Fracture of femur, intertrochanteric, right, gi sed 10/19/2015 06/29/2016 Displaced intertrochanteric fracture of right femur, subsequent encounter for closed fracture with routine healing 10/19/2015 06/29/2016 documented as of this encounter (statuses as of 06/13/2022) [facility] Narrative* Problem Noted Date Resolved Date Aseptic necrosis of bone of hip, right 9 06/28/2018 Overview: Added automatically from request for surgery [id number] Traumatic arthritis of hip, right 06/06/2018 06/28/2018 Overview: Added automatically from request for surgery [id number] Fracture of femur, intertrochanteric, right, gi sed 10/19/2015 06/29/2016 Displaced intertrochanteric fracture of right femur, subsequent encounter for closed fracture with routine healing 10/19/2015 06/29/2016 documented as of this encounter (statuses as of 06/16/2022) [facility] Narrative* Problem Noted Date Resolved Date Aseptic necrosis of bone of hip, right 9 06/28/2018 Overview: Added automatically from request for surgery [id number] Traumatic arthritis of hip, right 06/06/2018 06/28/2018 Overview: Added automatically from request for surgery [id number] Fracture of femur, intertrochanteric, right, gi sed 10/19/2015 06/29/2016 Displaced intertrochanteric fracture of right femur, subsequent encounter for closed fracture with routine healing 10/19/2015 06/29/2016 documented as of this encounter (statuses as of 08/07/2022) [facility] Narrative* Problem Noted Date Resolved Date Aseptic necrosis of bone of hip, right 9 06/28/2018 Overview: Added automatically from request for surgery [id number] Traumatic arthritis of hip, right 06/06/2018 06/28/2018 Overview: Added automatically from request for surgery [id number] Fracture of femur, intertrochanteric, right, gi sed 10/19/2015 06/29/2016 Displaced intertrochanteric fracture of right femur, subsequent encounter for closed fracture with routine healing 10/19/2015 06/29/2016 documented as of this encounter (statuses as of 08/09/2022) [facility] Narrative* Problem Noted Date Resolved Date Aseptic necrosis of bone of hip, right 9 06/28/2018 Overview: Added automatically from request for surgery [id number] Traumatic arthritis of hip, right 06/06/2018 06/28/2018 Overview: Added automatically from request for surgery [id number] Fracture of femur, intertrochanteric, right, gi sed 10/19/2015 06/29/2016 Displaced intertrochanteric fracture of right femur, subsequent encounter for closed fracture with routine healing 10/19/2015 06/29/2016 documented as of this encounter (statuses as of 08/10/2022) [facility] Narrative* Problem Noted Date Resolved Date Aseptic necrosis of bone of hip, right 9 06/28/2018 Overview: Added automatically from request for surgery [id number] Traumatic arthritis of hip, right 06/06/2018 06/28/2018 Overview: Added automatically from request for surgery [id number] Fracture of femur, intertrochanteric, right, gi sed 10/19/2015 06/29/2016 Displaced intertrochanteric fracture of right femur, subsequent encounter for closed fracture with routine healing 10/19/2015 06/29/2016 documented as of this encounter (statuses as of 08/14/2022) [facility] Narrative* Problem Noted Date Resolved Date Aseptic necrosis of bone of hip, right 9 06/28/2018 Overview: Added automatically from request for surgery [id number] Traumatic arthritis of hip, right 06/06/2018 06/28/2018 Overview: Added automatically from request for surgery [id number] Fracture of femur, intertrochanteric, right, gi sed 10/19/2015 06/29/2016 Displaced intertrochanteric fracture of right femur, subsequent encounter for closed fracture with routine healing 10/19/2015 06/29/2016 documented as of this encounter (statuses as of 08/23/2022) [facility] Narrative* Problem Noted Date Resolved Date Aseptic necrosis of bone of hip, right 9 06/28/2018 Overview: Added automatically from request for surgery [id number] Traumatic arthritis of hip, right 06/06/2018 06/28/2018 Overview: Added automatically from request for surgery [id number] Fracture of femur, intertrochanteric, right, gi sed 10/19/2015 06/29/2016 Displaced intertrochanteric fracture of right femur, subsequent encounter for closed fracture with routine healing 10/19/2015 06/29/2016 documented as of this encounter (statuses as of 09/07/2022) [facility] Narrative* Problem Noted Date Resolved Date Aseptic necrosis of bone of hip, right 9 06/28/2018 Overview: Added automatically from request for surgery [id number] Traumatic arthritis of hip, right 06/06/2018 06/28/2018 Overview: Added automatically from request for surgery [id number] Fracture of femur, intertrochanteric, right, gi sed 10/19/2015 06/29/2016 Displaced intertrochanteric fracture of right femur, subsequent encounter for closed fracture with routine healing 10/19/2015 06/29/2016 documented as of this encounter (statuses as of 10/13/2022) [facility] Narrative* Problem Noted Date Resolved Date Aseptic necrosis of bone of hip, right 9 06/28/2018 Overview: Added automatically from request for surgery [id number] Traumatic arthritis of hip, right 06/06/2018 06/28/2018 Overview: Added automatically from request for surgery [id number] Fracture of femur, intertrochanteric, right, gi sed 10/19/2015 06/29/2016 Displaced intertrochanteric fracture of right femur, subsequent encounter for closed fracture with routine healing 10/19/2015 06/29/2016 documented as of this encounter (statuses as of 11/09/2022) [facility] Narrative* Problem Noted Date Diagnosed Date Resolved Date Aseptic necrosis of bone of hip, right 06/06/2018 06/28/2018 Overview: Added automatically from request for surgery [id number] Traumatic arthritis of hip, right 06/06/2018 06/28/2018 Overview: Added automatically from request for surgery [id number] Fracture of femur, intertroc hanteric, right, closed 10/19/2015 06/29/2016 Displaced intertrochanteric fracture of right femur, subsequent encounter for closed fracture with routine healing 10/19/2015 06/29/2016 documented as of this encounter (statuses as of 12/01/2022) [facility] Narrative* Problem Noted Date Diagnosed Date Resolved Date Aseptic necrosis of bone of hip, right 06/06/2018 06/28/2018 Overview: Added automatically from request for surgery [id number] Traumatic arthritis of hip, right 06/06/2018 06/28/2018 Overview: Added automatically from request for surgery [id number] Fracture of femur, intertroc hanteric, right, closed 10/19/2015 06/29/2016 Displaced intertrochanteric fracture of right femur, subsequent encounter for closed fracture with routine healing 10/19/2015 06/29/2016 documented as of this encounter (statuses as of 03/02/2023) [facility] Narrative* Problem Noted Date Diagnosed Date Resolved Date Aseptic necrosis of bone of hip, right 06/06/2018 06/28/2018 Overview: Added automatically from request for surgery [id number] Traumatic arthritis of hip, right 06/06/2018 06/28/2018 Overview: Added automatically from request for surgery [id number] Fracture of femur, intertroc hanteric, right, closed 10/19/2015 06/29/2016 Displaced intertrochanteric fracture of right femur, subsequent encounter for closed fracture with routine healing 10/19/2015 06/29/2016 documented as of this encounter (statuses as of 03/21/2023) [facility] note* Diagnosis Hypothyroidism, unspecified type- Primary [...] diseases Urge incontinence [facility] Diagnosis Hypokalemia- Primary Hypopotassemia [facility]* Diagnosis Swelling of left side of face- Primary [facility] Diagnosis Acute otitis media, left- Primary Unspecified otitis media URI, acute Acute upper respiratory infections of unspecified site [facility]* Diagnosis Peptic ulcer disease- Primary Peptic ulcer, unspecified site, unspecified as acute or chronic, without mention of hemorrhage, perforation, or obstruction Moderate dysplasia of cervix Female stress incontinence Gastrointestinal hemorrhage, unspecified gastrointestinal hemorrhage type Hypothyroidism, unspecified type Screening breast examination Breast screening, unspecified [facility] Diagnosis Near syncope- Primary Syncope and collapse Fatigue, unspecified type Elevated glucose Other abnormal glucose Symptoms of upper respiratory infection (URI) [facility] Diagnosis Vitamin B12 deficiency- Primary Other B-complex deficiencies Anemia, unspecified type Hypomagnesemia Disorders of magnesium metabolism [facility] Diagnosis Anemia, unspecified type- Primary Hypomagnesemia Disorders of magnesium metabolism documented in this encounter [facility] note* Diagnosis Onset Date Resolution Status Closed fracture of left hip acute Fall acute Hypokalemia acute Left displaced femoral neck fracture acute History of acute alcohol intoxication [facility] Work Phone: evaluation note* Diagnosis Onset Date Resolution Status Anemia acute Closed fracture of left hip acute Closed fracture of left hip requiring operative repair acute Fall acute Hypokalemia acute Left displaced femoral neck fracture acute History of acute alcohol intoxication chronic History of bipolar disorder chronic [facility] Work Phone: evaluation note* Diagnosis Vitamin B12 [...] Arm mass, left documented in this encounter [facility] Diagnosis Hyperglycemia- Primary Other abnormal glucose Hypomagnesemia Disorders of magnesium metabolism Effusion of left elbow Effusion of upper arm joint Acute pain of left shoulder [facility]* Diagnosis Arm mass, left [facility] noteNo assessment information availableWWex[facility] Work Phone: evaluation note* Diagnosis Bronchitis- Primary Bronchitis, not specified as acute or chronic Screening for malignant neoplasm of cervix Screening for malignant neoplasm of the cervix Encounter for screening mammogram for malignant neoplasm of breast Other screening mammogram [facility] Diagnosis Vitamin B12 deficiency- Primary Other B-complex deficiencies [facility]* Diagnosis Anemia, unspecified type- Primary [facility]* Diagnosis Peptic ulcer disease Peptic ulcer, unspecified site, unspecified as acute or chronic, without mention of hemorrhage, perforation, or obstruction [facility]* Diagnosis Bipolar 1 disorder, mixed (HCC)- Primary Bipolar I disorder, most recent episode (or current) mixed, unspecified Hypothyroidism, unspecified type Vitamin D deficiency Unspecified vitamin D deficiency Hypomagnesemia Disorders of magnesium metabolism [facility]* Diagnosis Encounter for screening mammogram for breast cancer [facility]* Diagnosis Bronchitis Bronchitis, not specified as acute or chronic documented in this encounter [facility] note* Diagnosis Effusion of left elbow Effusion of upper arm joint Acute pain of left shoulder documented in this encounter [facility] note* Diagnosis Left arm pain Pain in limb documented in this encounter [facility] note* Diagnosis Peptic ulcer disease Peptic ulcer, unspecified site, unspecified as acute or chronic, without mention of hemorrhage, perforation, or obstruction documented in this encounter [facility] note* Diagnosis NO SHOW- Primary documented in this encounter [facility] note* Diagnosis Encounter for screening mammogram for breast cancer documented in this encounter [facility] for referral (narrative)* Diagnostic Procedure Only (Routine) - Authorized Specialty Diagnoses / Procedures [facility] To [facility] Diagnoses Screening breast examination Procedures LIZZY SCREENING SCREENING MAMMOGRAPHY BI 2-VIEW BREAST INC CAD Naye Sheets MD [address] [place] [address] Br Imaging [address] [place] [address] Referral ID Status Reason Start Date Expiration Date Visits Requested Visits Authorized [id number] Authorized Auto-Generat ed Referral 11/23/2021 12/23/2022 1 1 [facility] for referral (narrative)* Outpatient Procedure (Routine) - Closed Specialty Diagnoses / Procedures [facility] Diagnoses Near syncope Procedures ECG COMPLETE ECG ROUTINE ECG W/LEAST 12 LDS W/I&R Meenakshi Baker APRN.CNP [address] [place] [address] [facility] [address] [place] [address] Referral ID Status Reason Start Date Expiration Date V isits Requested Visits Authorized [id number] Closed Auto-Generate d Referral 04/24/2022 04/24/2023 1 1 [facility] for referral (narrative)* Diagnostic Procedure Only (Routine) - Closed Specialty Diagnoses / Procedures [facility] To [facility] XR IMAG[facility] Diagnoses Left arm pain Procedures XR HUMERUS 2V AP/LAT LEFT RADEX HUMERUS MINIMUM 2 VIEWS Naye Sheets MD [address] [place] [address] X[facility] Imaging Referral ID Status Reason Start Date Expiration Date V isits Requested Visits Authorized [id number] Closed Auto-Generate d Referral 08/09/2022 09/08/2023 1 1 * Diagnostic Procedure Only (Routine) - Authorized Specialty Diagnoses / Procedures Referred By Contac t Referred To Contact US IMAGING Diagnoses Arm mass, left Procedures US EXTREMITY MASS/FLUID COLLECTION LEFT Naye Sheets MD [address] [place] [address] Us Imaging Referral ID Status Reason Start Date Expiration Date Visits Requested Visits Authorized [id number] Authorized Auto-Generat ed Referral 08/09/2022 09/08/2023 1 1 * Diagnostic Procedure Only (Routine) - Authorized Specialty Diagnoses / Procedures Referred By Contac t Referred To Contact BR IMAGING Diagnoses Screening breast examination Procedures LIZZY SCREENING SCREENING MAMMOGRAPHY BI 2-VIEW BREAST INC CAD Naye Sheets MD [address] [place] [address] Br Imaging [address] [place] [address] Referral ID Status Reason Start Date Expiration Date Visits Requested Visits Authorized [id number] Authorized Auto-Generat ed Referral 08/09/2022 09/08/2023 1 1 [facility] for referral (narrative)* Diagnostic Procedure Only (Routine) - Pending Review Specialty Diagnoses / Procedures Referred By Contac t Referred To Contact XR IMAGING Diagnoses Acute pain of left shoulder Procedures XR SHOULDER GENERAL 3V OR MORE AP/TRUE AP/OTHER LEFT RADEX SHOULDER COMPLETE MINIMUM 2 VIEWS Naye Sheets MD [address] [place] [address] Xr Imaging Referral ID Status Reason Start Date Expiration Date Visits Requested Visits Authorized [id number] Pending Review Auto-Generat ed Referral 08/10/2022 09/09/2023 1 1 * Diagnostic Procedure Only (Routine) - Pending Review Specialty Diagnoses / Procedures Referred By Contac t Referred To Contact XR IMAGING Diagnoses Effusion of left elbow Procedures XR ELBOW GENERAL 2V AP/LAT LEFT RADEX ELBOW 2 VIEWS Naye Sheets MD [address] [place] [address] Xr Imaging Referral ID Status Reason Start Date Expiration Date Visits Requested Visits Authorized [id number] Pending Review Auto-Generat ed Referral 08/10/2022 09/09/2023 1 1 [facility] for referral (narrative)* Diagnostic Procedure Only (Routine) - Closed Specialty Diagnoses / Procedures Referred By Contac t Referred To Contact US IMAGING Diagnoses Arm mass, left Procedures US EXTREMITY MASS/FLUID COLLECTION LEFT Naye Sheets MD [address] [place] [address] Us Imaging Referral ID Status Reason Start Date Expiration Date V isits Requested Visits Authorized [id number] Closed Auto-Generate d Referral 08/09/2022 09/08/2023 1 1 [facility] for referral (narrative)* Outpatient Procedure (Routine) - Pending Review Specialty Diagnoses / Procedures Referred By Contac t Referred To Contact [facility] Diagnoses Anemia, unspecified type Procedures EGD DIAGNOSTIC ESOPHAGOGASTRODUODENOSC OPY TRANSORAL DIAGNOSTIC Kristina Wang MD [address] [place] [address] [facility] [address] [place] [address] Referral ID Status Reason Start Date Expiration Date Visits Requested Visits Authorized [id number] Pending Review Auto-Generat ed Referral 11/30/2022 12/01/2023 1 1 * Outpatient Procedure (Routine) - Pending Review Specialty Diagnoses / Procedures Referred By Lilia t Referred To Contact [facility] Diagnoses Anemia, unspecified type Procedures COLONOSCOPY DIAGNOSTIC COLONOSCOPY FLX DX W/COLLJ SPEC WHEN Kristina Freedman MD [address] [place] [address] [facility] [address] [place] [address] Referral ID Status Reason Start Date Expiration Date Visits Requested Visits Authorized [id number] Pending Review Auto-Generat ed Referral 09/02/2023 12/01/2023 1 1 [facility] for referral (narrative)* Diagnostic Procedure Only (Routine) - Pending Review Specialty Diagnoses / Procedures Referred By Lilia delarosa Referred To Contact BR IMAGING Diagnoses Encounter for screening mammogram for breast cancer Procedures LIZZY SCREENING SCREENING MAMMOGRAPHY BI 2-VIEW BREAST INC CAD Naye Sheets MD [address] [place] [address] Br Imaging [address] [place] [id number] Referral ID Status Reason Start Date Expiration Date Visits Requested Visits Authorized [id number] Pending Review Auto-Generat ed Referral 09/19/2023 10/18/2024 1 1 [facility] for referral (narrative)* Diagnostic Procedure Only (Routine) - Closed Specialty Diagnoses / Procedures Referred By Lilia t Referred To Contact XR IMAGING Diagnoses Acute pain of left shoulder Procedures XR SHOULDER GENERAL 3V OR MORE AP/TRUE AP/OTHER LEFT RADEX SHOULDER COMPLETE MINIMUM 2 VIEWS Naye Sheets MD [facility] [place] [address] [place] [address] Referral ID Status Reason Start Date Expiration Date V isits Requested Visits Authorized [id number] Closed Auto-Generate d Referral 08/10/2022 09/09/2023 1 1 * Diagnostic Procedure Only (Routine) - Closed Specialty Diagnoses / Procedures Referred By Contac t Referred To Contact XR IMAGING Diagnoses Effusion of left elbow Procedures XR ELBOW GENERAL 2V AP/LAT LEFT RADEX ELBOW 2 VIEWS Naye Sheets MD [address] [place] [address] [place] [address] Referral ID Status Reason Start Date Expiration Date V isits Requested Visits Authorized [id number] Closed Auto-Generate d Referral 08/10/2022 09/09/2023 1 1 [facility] for referral (narrative)* Diagnostic Procedure Only (Routine) - Closed Specialty Diagnoses / Procedures Referred By Contac t Referred To Contact XR IMAGING Diagnoses Left arm pain Procedures XR HUMERUS 2V AP/LAT LEFT RADEX HUMERUS MINIMUM 2 VIEWS Naye Sheets MD [address] [place], [place] [id number] [place] [address] Referral ID Status Reason Start Date Expiration Date V isits Requested Visits Authorized [id number] Closed Auto-Generate d Referral 08/09/2022 09/08/2023 1 1 [facility] for referral (narrative)No reason for referral [facility] Work Phone: Reason for visit Narrative* Diagnostic Procedure Only (Routine) - Closed Specialty Diagnoses / Procedures Referred By Contac t Referred To Contact US IMAGING Diagnoses Arm mass, left Procedures US EXTREMITY MASS/[place] [address] [place] [id number] Us Imaging Referral ID Status Reason Start Date Expiration Date V isits Requested Visits Authorized [id number] Closed Auto-Generate d Referral 08/09/2022 09/08/2023 1 1 [facility] for visit Narrative* Diagnostic Procedure Only (Routine) - Closed Specialty Diagnoses / Procedures Referred By Contac t Referred To Contact XR IMAGING Diagnoses Acute pain of left shoulder Procedures XR SHOULDER GENERAL 3V OR MORE AP/TRUE AP/OTHER LEFT RADEX SHOULDER COMPLETE MINIMUM 2 VIEWS Naye Sheets MD [address] [place] [address] [place] [address] Referral ID Status Reason Start Date Expiration Date V isits Requested Visits Authorized [id number] Closed Auto-Generate d Referral 08/10/2022 09/09/2023 1 1 [facility] for visit Narrative* Diagnostic Procedure Only (Routine) - Closed Specialty Diagnoses / Procedures Referred By Contac t Referred To Contact XR IMAGING Diagnoses Left arm pain Procedures XR HUMERUS 2V AP/LAT LEFT RADEX HUMERUS MINIMUM 2 VIEWS Naye Sheets MD [address] [place] [address] [place] [address] Referral ID Status Reason Start Date Expiration Date V isits Requested Visits Authorized [id number] Closed Auto-Generate d Referral 08/09/2022 09/08/2023 1 1 [facility] Summary Purpose Family History No Family History [...] Documents on File Type Date Recorded 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 Advance Directive(s) 07/22/2018 2:14 PM Advance Directive(s) 06/28/2018 8:20 AM Advance Directive(s) 06/14/2018 10:40 AM Advance Directive(s) 05/21/2018 1:21 PM Advance Directive(s) 09/11/2016 3:43 PM Latest Code Status on File Code Status Date Activated Date Inactivated Comments Full Code 06/28/2018 1:44 PM 07/02/2018 3:44 PM Full Code Order Discussed With: Patient Documents on File Type Date Recorded 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 Advance Directive(s) 07/22/2018 2:14 PM Advance Directive(s) 06/28/2018 8:20 AM Advance Directive(s) 06/14/2018 10:40 AM Advance Directive(s) 05/21/2018 1:21 PM Advance Directive(s) 09/11/2016 3:43 PM Latest Code Status on File Code Status Date Activated Date Inactivated Comments Full Code 06/28/2018 1:44 PM 07/02/2018 3:44 PM Advance Directive Response Recorded Date/ Time Living Will No June 10 3:26pm Power of Quill Fixer No June 10, 2022 3:26pm Advance Directive Response Recorded Date/ Time Living Will No June 10 8:21pm Power of Quill Fixer No June 10, 2022 8:21pm Advance Directive Response Recorded Date/ Time Living Will No June 10 9:21pm Power of Quill Fixer No June 10, 2022 9:21pm Advance Directive Response Recorded Date/ Time Living Will No November 15, 2022 1 :55pm Power of Quill Fixer No November 15, 2022 1:55pm Latest Code [...] Do you have a Healthcare Power of Quill Fixer? No June 13, 2024 5:39pm Living Will No August 26, 2024 2:26pm Do you have a Healthcare Power of Quill Fixer? No August 26, 2024 2:26pm Advance Directive Response Recorded Date/ Time Living Will No June 13 5:39pm Do you have a Healthcare Power of Quill Fixer? No June 13, 2024 5:39pm Living Will No August 26, 2024 10:34pm Do you have a Healthcare Power of Quill Fixer? No August 26, 2024 10:34pm Date Activated [...] of cervix Procedures CONSULT TO GYNECOLOGY OFFICE/OUTPATIENT [facility] 60-74 MINUTES Naye Sheets MD [address] [place] [address] Referral ID Status Reason Start Date Expiration Date Visits Requested Visits Authorized [id number] Authorized PCP Requested Referral Auto-Generate d Referral 08/05/2021 08/05/2022 1 1 Specialty Diagnoses / Procedures Referred By Contac t Referred To Contact BR IMAGING Diagnoses Screening breast examination Procedures LIZZY SCREENING SCREENING MAMMOGRAPHY BI 2-VIEW BREAST INC CAD Naye Sheets MD [address] [place] [address] [facility] [address] [place] [address] Referral ID Status Reason Start Date Expiration Date Visits Requested Visits Authorized [id number] Authorized Auto-Generat ed Referral 08/05/2021 09/04/2022 1 1 Specialty Diagnoses / Procedures Referred By Contac t Referred To Contact General Surgery Diagnoses Anemia, unspecified type Procedures CONSULT TO GENERAL SURGERY OFFICE/OUTPATIENT [facility] MDM 60-74 MINUTES Meenakshi Baker APRN.CNP [address] [place] [address] Referral ID Status Reason Start Date Expiration Date V isits Requested Visits Authorized [id number] Closed PCP Requested Referral 04/25/2022 04/25/2023 1 1 Specialty Diagnoses / Procedures Referred By Contac t Referred To Contact Gynecology Diagnoses Screening for malignant neoplasm of cervix Procedures CONSULT TO GYNECOLOGY OFFICE/OUTPATIENT [facility] MDM 60-74 MINUTES Naye Sheets MD [address] [place] [address] Referral ID Status Reason Start Date Expiration Date Visits Requested Visits Authorized [id number] Authorized PCP Requested Referral Auto-Generate d Referral 10/13/2022 10/13/2023 1 1 Specialty Diagnoses / Procedures Referred By Lilia t Referred To Contact BR IMAGING Diagnoses Encounter for screening mammogram for malignant neoplasm of breast Procedures LIZZY SCREENING SCREENING MAMMOGRAPHY BI 2-VIEW BREAST INC CAD Naye Sheets MD [address] [place] [address] [facility] [address] [place] [address] Referral ID Status Reason Start Date Expiration Date Visits Requested Visits Authorized [id number] Pending Review Auto-Generat ed Referral 10/13/2022 11/12/2023 [...] section and content) DATE CREATED AUTHOR 06/05/2019 [facility] DATE CREATED AUTHOR AUTHOR'S ORGANIZ ATION 11/17/2020 [facility] DATE CREATED AUTHOR AUTHOR'S ORGANIZ ATION 07/03/2021 [facility] DATE CREATED AUTHOR AUTHOR'S ORGANIZ ATION 08/27/2022 [facility] DATE CREATED AUTHOR AUTHOR'S ORGANIZ ATION 06/29/2024 [facility] DATE CREATED AUTHOR AUTHOR'S ORGANIZ ATION 09/21/2024 [facility] DATE CREATED AUTHOR AUTHOR'S ORGANIZ ATION 10/18/2024 [facility] Source Comments (unrecognize d section and content) In the event this informatio n is protected by the Federal Confidentiality of Alcohol and Drug Abuse Patient Records regulations: The Federal rules restrict any use of the information to criminally investigate or prosecute any alcohol or drug abuse patient.[facility] the event this information is protected by the Federal Confidentiality of Alcohol and Drug Abuse Patient Records regulations: The Federal rules restrict any use of the information to criminally investigate or prosecute any alcohol or drug abuse patient.[facility] the event this information is protected by the Federal Confidentiality of Alcohol and Drug Abuse Patient Records regulations: The Federal rules restrict any use of the information to criminally investigate or prosecute any alcohol or drug abuse patient.[facility] Health[facility] the event this information is protected by the Federal Confidentiality of Alcohol and Drug Abuse Patient Records regulations: The Federal rules restrict any use of the information to criminally investigate or prosecute any alcohol or drug abuse patient.[facility] Health[facility] the event this information is protected by the Federal Confidentiality of Alcohol and Drug Abuse Patient Records regulations: The Federal rules restrict any use of the information to criminally investigate or prosecute any alcohol or drug abuse patient.[facility] Health[facility] the event this information is protected by the Federal Confidentiality of Alcohol and Drug Abuse Patient Records regulations: The Federal rules restrict any use of the information to criminally investigate or prosecute any alcohol or drug abuse patient.[facility] the event this information is protected by the Federal Confidentiality of Alcohol and Drug Abuse Patient Records regulations: The Federal rules restrict any use of the information to criminally investigate or prosecute any alcohol or drug abuse patient.[facility] the event this information is protected by the Federal Confidentiality of Alcohol and Drug Abuse Patient Records regulations: The Federal rules restrict any use of the information to criminally investigate or prosecute any alcohol or drug abuse patient.[facility] the event this information is protected by the Federal Confidentiality of Alcohol and Drug Abuse Patient Records regulations: The Federal rules restrict any use of the information to criminally investigate or prosecute any alcohol or drug abuse patient.[facility] the event this information is protected by the Federal Confidentiality of Alcohol and Drug Abuse Patient Records regulations: The Federal rules restrict any use of the information to criminally investigate or prosecute any alcohol or drug abuse patient.[facility] the event this information is protected by the Federal Confidentiality of Alcohol and Drug Abuse Patient Records regulations: The Federal rules restrict any use of the information to criminally investigate or prosecute any alcohol or drug abuse patient.[facility] Health[facility] the event this information is protected by the Federal Confidentiality of Alcohol and Drug Abuse Patient Records regulations: The Federal rules restrict any use of the information to criminally investigate or prosecute any alcohol or drug abuse patient.[facility] the event this information is protected by the Federal Confidentiality of Alcohol and Drug Abuse Patient Records regulations: The Federal rules restrict any use of the information to criminally investigate or prosecute any alcohol or drug abuse patient.[facility] Health[facility] the event this information is protected by the Federal Confidentiality of Alcohol and Drug Abuse Patient Records regulations: The Federal rules restrict any use of the information to criminally investigate or prosecute any alcohol or drug abuse patient.[facility] Health[facility] the event this information is protected by the Federal Confidentiality of Alcohol and Drug Abuse Patient Records regulations: The Federal rules restrict any use of the information to criminally investigate or prosecute any alcohol or drug abuse patient.[facility] HealthIn the event this information is protected by the Federal Confidentiality of Alcohol and Drug Abuse Patient Records regulations: The Federal rules restrict any use of the information to criminally investigate or prosecute any alcohol or drug abuse patient.[facility] HealthIn the event this information is protected by the Federal Confidentiality of Alcohol and Drug Abuse Patient Records regulations: The Federal rules restrict any use of the information to criminally investigate or prosecute any alcohol or drug abuse patient.[facility] Health[facility] the event this information is protected by the Federal Confidentiality of Alcohol and Drug Abuse Patient Records regulations: The Federal rules restrict any use of the information to criminally investigate or prosecute any alcohol or drug abuse patient.[facility] Health[facility] the event this information is protected by the Federal Confidentiality of Alcohol and Drug Abuse Patient Records regulations: The Federal rules restrict any use of the information to criminally investigate or prosecute any alcohol or drug abuse patient.[facility] HealthIn the event this information is protected by the Federal Confidentiality of Alcohol and Drug Abuse Patient Records regulations: The Federal rules restrict any use of the information to criminally investigate or prosecute any alcohol or drug abuse patient.[facility] HealthIn the event this information is protected by the Federal Confidentiality of Alcohol and Drug Abuse Patient Records regulations: The Federal rules restrict any use of the information to criminally investigate or prosecute any alcohol or drug abuse patient.[facility] HealthIn the event this information is protected by the Federal Confidentiality of Alcohol and Drug Abuse Patient Records regulations: The Federal rules restrict any use of the information to criminally investigate or prosecute any alcohol or drug abuse patient.[facility] HealthIn the event this information is protected by the Federal Confidentiality of Alcohol and Drug Abuse Patient Records regulations: The Federal rules restrict any use of the information to criminally investigate or prosecute any alcohol or drug abuse patient.[facility] HealthIn the event this information is protected by the Federal Confidentiality of Alcohol and Drug Abuse Patient Records regulations: The Federal rules restrict any use of the information to criminally investigate or prosecute any alcohol or drug abuse patient.[facility] HealthIn the event this information is protected by the Federal Confidentiality of Alcohol and Drug Abuse Patient Records regulations: The Federal rules restrict any use of the information to criminally investigate or prosecute any alcohol or drug abuse patient.[facility] HealthIn the event this information is protected by the Federal Confidentiality of Alcohol and Drug Abuse Patient Records regulations: The Federal rules restrict any use of the information to criminally investigate or prosecute any alcohol or drug abuse patient.[facility] HealthIn the event this information is protected by the Federal Confidentiality of Alcohol and Drug Abuse Patient Records regulations: The Federal rules restrict any use of the information to criminally investigate or prosecute any alcohol or drug abuse patient.[facility] HealthIn the event this information is protected by the Federal Confidentiality of Alcohol and Drug Abuse Patient Records regulations: The Federal rules restrict any use of the information to criminally investigate or prosecute any alcohol or drug abuse patient.[facility] HealthIn the event this information is protected by the Federal Confidentiality of Alcohol and Drug Abuse Patient Records regulations: The Federal rules restrict any use of the information to criminally investigate or prosecute any alcohol or drug abuse patient.[facility] HealthIn the event this information is protected by the Federal Confidentiality of Alcohol and Drug Abuse Patient Records regulations: The Federal rules restrict any use of the information to criminally investigate or prosecute any alcohol or drug abuse patient.[facility] HealthIn the event this information is protected by the Federal Confidentiality of Alcohol and Drug Abuse Patient Records regulations: The Federal rules restrict any use of the information to criminally investigate or prosecute any alcohol or drug abuse patient.[facility] HealthIn the event this information is protected by the Federal Confidentiality of Alcohol and Drug Abuse Patient Records regulations: The Federal rules restrict any use of the information to criminally investigate or prosecute any alcohol or drug abuse patient.[facility] HealthIn the event this information is protected by the Federal Confidentiality of Alcohol and Drug Abuse Patient Records regulations: The Federal rules restrict any use of the information to criminally investigate or prosecute any alcohol or drug abuse patient.[facility] HealthIn the event this information is protected by the Federal Confidentiality of Alcohol and Drug Abuse Patient Records regulations: The Federal rules restrict any use of the information to criminally investigate or prosecute any alcohol or drug abuse patient.[facility] HealthIn the event this information is protected by the Federal Confidentiality of Alcohol and Drug Abuse Patient Records regulations: The Federal rules restrict any use of the information to criminally investigate or prosecute any alcohol or drug abuse patient.[facility] HealthIn the event this information is protected by the Federal Confidentiality of Alcohol and Drug Abuse Patient Records regulations: The Federal rules restrict any use of the information to criminally investigate or prosecute any alcohol or drug abuse patient.[facility] HealthIn the event this information is protected by the Federal Confidentiality of Alcohol and Drug Abuse Patient Records regulations: The Federal rules restrict any use of the information to criminally investigate or prosecute any alcohol or drug abuse patient.[facility] HealthIn the event this information is protected by the Federal Confidentiality of Alcohol and Drug Abuse Patient Records regulations: The Federal rules restrict any use of the information to criminally investigate or prosecute any alcohol or drug abuse patient.[facility] HealthIn the event this information is protected by the Federal Confidentiality of Alcohol and Drug Abuse Patient Records regulations: The Federal rules restrict any use of the information to criminally investigate or prosecute any alcohol or drug abuse patient.[facility] HealthIn the event this information is protected by the Federal Confidentiality of Alcohol and Drug Abuse Patient Records regulations: The Federal rules restrict any use of the information to criminally investigate or prosecute any alcohol or drug abuse patient.[facility] HealthIn the event this information is protected by the Federal Confidentiality of Alcohol and Drug Abuse Patient Records regulations: The Federal rules restrict any use of the information to criminally investigate or prosecute any alcohol or drug abuse patient.[facility] HealthIn the event this information is protected by the Federal Confidentiality of Alcohol and Drug Abuse Patient Records regulations: The Federal rules restrict any use of the information to criminally investigate or prosecute any alcohol or drug abuse patient.[facility] HealthIn the event this information is protected by the Federal Confidentiality of Alcohol and Drug Abuse Patient Records regulations: The Federal rules restrict any use of the information to criminally investigate or prosecute any alcohol or drug abuse patient.[facility] HealthIn the event this information is protected by the Federal Confidentiality of Alcohol and Drug Abuse Patient Records regulations: The Federal rules restrict any use of the information to criminally investigate or prosecute any alcohol or drug abuse patient.[facility] HealthIn the event this information is protected by the Federal Confidentiality of Alcohol and Drug Abuse Patient Records regulations: The Federal rules restrict any use of the information to criminally investigate or prosecute any alcohol or drug abuse patient.[facility] HealthIn the event this information is protected by the Federal Confidentiality of Alcohol and Drug Abuse Patient Records regulations: The Federal rules restrict any use of the information to criminally investigate or prosecute any alcohol or drug abuse patient.[facility] HealthIn the event this information is protected by the Federal Confidentiality of Alcohol and Drug Abuse Patient Records regulations: The Federal rules restrict any use of the information to criminally investigate or prosecute any alcohol or drug abuse patient.[facility] HealthIn the event this information is protected by the Federal Confidentiality of Alcohol and Drug Abuse Patient Records regulations: The Federal rules restrict any use of the information to criminally investigate or prosecute any alcohol or drug abuse patient.[facility] HealthIn the event this information is protected by the Federal Confidentiality of Alcohol and Drug Abuse Patient Records regulations: The Federal rules restrict any use of the information to criminally investigate or prosecute any alcohol or drug abuse patient.[facility] HealthIn the event this information is protected by the Federal Confidentiality of Alcohol and Drug Abuse Patient Records regulations: The Federal rules restrict any use of the information to criminally investigate or prosecute any alcohol or drug abuse patient.[facility] HealthIn the event this information is protected by the Federal Confidentiality of Alcohol and Drug Abuse Patient Records regulations: The Federal rules restrict any use of the information to criminally investigate or prosecute any alcohol or drug abuse patient.[facility] HealthIn the event this information is protected by the Federal Confidentiality of Alcohol and Drug Abuse Patient Records regulations: The Federal rules restrict any use of the information to criminally investigate or prosecute any alcohol or drug abuse patient.[facility] HealthIn the event this information is protected by the Federal Confidentiality of Alcohol and Drug Abuse Patient Records regulations: The Federal rules restrict any use of the information to criminally investigate or prosecute any alcohol or drug abuse patient.[facility] HealthIn the event this information is protected by the Federal Confidentiality of Alcohol and Drug Abuse Patient Records regulations: The Federal rules restrict any use of the information to criminally investigate or prosecute any alcohol or drug abuse patient.[facility] HealthIn the event this information is protected by the Federal Confidentiality of Alcohol and Drug Abuse Patient Records regulations: The Federal rules restrict any use of the information to criminally investigate or prosecute any alcohol or drug abuse patient.[facility] HealthIn the event this information is protected by the Federal Confidentiality of Alcohol and Drug Abuse Patient Records regulations: The Federal rules restrict any use of the information to criminally investigate or prosecute any alcohol or drug abuse patient.[facility] HealthIn the event this information is protected by the Federal Confidentiality of Alcohol and Drug Abuse Patient Records regulations: The Federal rules restrict any use of the information to criminally investigate or prosecute any alcohol or drug abuse patient.[facility] Reason for Visit (unrecogniz ed section and content) Reason Comments Orders Reason Comments Results Reason Comments Letter Reason Comments Facial Swelling left side of face sw ollen x 1 day Reason Comments Patient Request Patient Question Reason Comments fax coming from [facility] Reason Comments Sore Throat ST, FERMIN [...] Date Comments Population Health Navigation Outreach 10/02/2023 [place] [facility] and care gaps Reason Onset Date Comments Population Health Navigation Outreach 12/03/2023 [facility] [place] [facility] Reason Onset Date Comments Population Health Navigation Outreach 02/01/2024 [facility] [place] [facility] Reason Comments Med Change Request Reason Comments Letter No show letter #1 Reason Comments Letter No show letter #2 Reason Comments Appointment Reason Onset Date Comments Population Health Navigation Outreach 04/21/2024 [facility] [place] [facility] Reason Comments No Show Reason Comments Transition Of Care Reason Comments Transition Of Care Exclusion (SNF) Reason Comments FYI-No Action Needed Reason Comments reschedule appt from snf visit Care Teams (unrecognized sec tion and content) Tattoo And Body Artist Relationship Specialty Start Date End Date Naye Sheets MD [address] [place] [address] PCP - General Family Practice 10/24/12 Tattoo And Body Artist Relationship Specialty Start Date End Date Naye Sheets MD [address] [place] [address] PCP - General Family Practice 10/24/12 Tattoo And Body Artist Relationship Specialty Start Date End Date Naye Sheets MD [address] [place] [address] PCP - General Family Practice 10/24/12 Tattoo And Body Artist Relationship Specialty Start Date End Date Naye Sheets MD [address] [place] [address] PCP - General Family Practice 10/24/12 Tattoo And Body Artist Relationship Specialty Start Date End Date Naye Sheets MD [address] [place] [address] PCP - General Family Practice 10/24/12 Tattoo And Body Artist Relationship Specialty Start Date End Date Naye Sheets MD [address] [place] [address] PCP - General Family Practice 10/24/12 Tattoo And Body Artist Relationship Specialty Start Date End Date Naye Sheets MD [address] [place] [address] PCP - General Family Practice 10/24/12 Tattoo And Body Artist Relationship Specialty Start Date End Date Naye Sheets MD [address] [place] [address] PCP - General Family Practice 10/24/12 Tattoo And Body Artist Relationship Specialty Start Date End Date Naye Sheets MD [address] [place] [address] PCP - General Family Medicine 10/24/12 Tattoo And Body Artist Relationship Specialty Start Date End Date Naye Sheets MD [address] [place] [address] PCP - General Family Medicine 10/24/12 Tattoo And Body Artist Relationship Specialty Start Date End Date Naye Sheets MD [address] [place] [address] PCP - General Family Medicine 10/24/12 Tattoo And Body Artist Relationship Specialty Start Date End Date Naye Sheets MD [address] [place] [address] PCP - General Family Medicine 10/24/12 Team Status: Active Member Role Status Dates Dr. Naye Sheets MD Family Provider Active [facility] Primary Care Provider Active Team Status: Active Member Role Status Dates [facility] Primary Care Provider Active Dr. Mandeep Allison , Emergency Provider Active Dr. Renetta Recinos MD Admit Provider, Attending Prov ider Active Tattoo And Body Artist Relationship Specialty Start Date End Date Naye Sheets MD [address] [place] [address] PCP - General Family Medicine 10/24/12 Tattoo And Body Artist Relationship Specialty Start Date End Date Naye Sheets MD [address] [place] [address] PCP - General Family Medicine 10/24/12 Team Status: Active Member Role Status Dates [facility] Primary Care Provider Active Dr. Mandeep Allison DO Emergency Provider Active Dr. Renetta Recinos MD Admit Provider, Other Provider Active Dr. Leonard Weiner MD Other Provider Active Dr. Tiff Ramires MD Attending Provider Active Team Status: Active Member Role Status Dates [facility] Primary Care Provider Active Dr. Mandeep Allison DO Emergency Provider Active Dr. Renetta Recinos MD Admit Provider, Other Provider Active Dr. Leonard Weiner MD Other Provider Active Dr. Jerry Lopez MD Attending Provider, Other Provi roxy Active Team Status: Active Member Role Status Dates [facility] Primary Care Provider Active Dr. Mandeep [...] Status: Active Member Role Status Dates [facility] [place] Primary Care Provider Active Dr. Mandeep Allison , Emergency Provider Active Dr. Renetta Recinos MD Admit Provider, Other Provider Active Dr. Leonard Weiner MD Other Provider Active Dr. Tiff Ramires MD Active Dr. Jerry Lopez MD Attending Provider Active Team Status: Inactive Member Role Status Dates Naye [place] Primary Care Provider Active Ed Physician Provider Emergency Provider Active Tattoo [employer] Body Artist Relationship Specialty Start Date End Date Naye Sheets MD [address] [place] [address] PCP - General Family Medicine 10/24/12 Tattoo And Body Artist Relationship Specialty Start Date End Date Naye Sheets MD [address] [place] [address] PCP - General Family Medicine 10/24/12 Tattoo And Body Artist Relationship Specialty Start Date End Date Naye Sheets MD [address] [place] [address] PCP - General Family Medicine 10/24/12 Tattoo And Body Artist Relationship Specialty Start Date End Date Naye Sheets MD [address] [place] [address] PCP - General Family Medicine 10/24/12 Tattoo And Body Artist Relationship Specialty Start Date End Date Naye Sheets MD [address] [place] [address] PCP - General Family Medicine 10/24/12 Team Status: Active Member Role Status Dates Dr. Naye Sheets MD Family Provider Active Naye [facility]neso HUONG Primary Care Provider Active Team Status: Inactive Member Role Status Dates Naye BOR[facility] Primary Care Provider Active Dr. Leonard Weiner MD Attending Provider, Gabriel nair Active Tattoo And Body Artist Relationship Specialty Start Date End Date Naye Sheets MD [address] [place] [address] PCP - General Family Medicine 10/24/12 Tattoo And Body Artist Relationship Specialty Start Date End Date Naye Sheets MD [address] [place] [address] PCP - General Family Medicine 10/24/12 Team Status: Active Member Role Status Dates Dr. Naye Sheets MD Family Provider Active Dr. Naye Sheets MD Primary Care Provider Active Team Status: Inactive Member Role Status Dates Dr. Jesus Flynn DO Emergency Provider Active Dr. Naye Sheets MD Primary Care Provider Active Tattoo And Body Artist Relationship Specialty Start Date End Date Naye Sheets MD [address] [place] [address] PCP - General Family Medicine 10/24/12 Tattoo And Body Artist Relationship Specialty Start Date End Date Naye Sheets MD [address] [place] [address] PCP - General Family Medicine 10/24/12 Tattoo And Body Artist Relationship Specialty Start Date End Date Naye Sheets MD [address] [place] [address] PCP - General Family Medicine 10/24/12 Tattoo And Body Artist Relationship Specialty Start Date End Date Naye Sheets MD [address] [place] [address] PCP - General Family Medicine 10/24/12 Tattoo And Body Artist Relationship Specialty Start Date End Date Naye Sheets MD [address] [place] [address] PCP - General Family Medicine 10/24/12 Tattoo And Body Artist Relationship Specialty Start Date End Date Naye Sheets MD [address] [place] [address] PCP - General Family Medicine 10/24/12 Tattoo And Body Artist Relationship Specialty Start Date End Date Naye Sheets MD [address] [place] [address] PCP - General Family Medicine 10/24/12 Tattoo And Body Artist Relationship Specialty Start Date End Date Naye Sheets MD [address] [place] [address] PCP - General Family Medicine 10/24/12 Tattoo And Body Artist Relationship Specialty Start Date End Date Naye Sheets MD [address] [place] [address] PCP - General Family Medicine 10/24/12 Tattoo And Body Artist Relationship Specialty Start Date End Date Naye Sheets MD [address] [place] [address] PCP - General Family Medicine 10/24/12 Tattoo And Body Artist Relationship Specialty Start Date End Date Naye Sheets MD [address] [place] [address] PCP - General Family Medicine 10/24/12 Meenakshi Baker, SOLUTION LEAD.GROUNDS FOREMAN [address] [facility] [place] [address] [employer] Policy Professor Family Medicine 04/21/24 Natalie Kirkpatrick, SOLUTION LEAD.GROUNDS FOREMAN [address] [facility] [place] [address] Forest Law And Policy Professor Family Medicine 04/21/24 Tattoo And Body Artist Relationship Specialty Start Date End Date Naye Sheets MD [address] [place] [address] PCP - General Family Medicine 10/24/12 Meenakshi Baker, SOLUTION LEAD.GROUNDS FOREMAN [address] [facility] [address] [employer] And Policy Professor Family Medicine 04/21/24 Natalie Kirkpatrick APRN.GROUNDS FOREMAN [address] [place] [address] [employer] Law And Policy Professor Family Medicine 04/21/24 Tattoo And Body Artist Relationship Specialty Start Date End Date Naye Sheets MD [address] [place] [address] PCP - General Family Medicine 10/24/12 Meenakshi Baker APRN.GROUNDS FOREMAN [address] [place] [address] [employer] Law And Policy Professor Family Medicine 04/21/24 Natalie Kirkpatrick APRN.GROUNDS FOREMAN [address] [place] [address] [employer] Law And Policy Professor Family Medicine 04/21/24 Tattoo And Body Artist Relationship Specialty Start Date End Date Naye Sheets MD [address] [place] [address] PCP - General Family Medicine 10/24/12 Meenakshi Baker APRN.GROUN[employer] FOREMAN [address] [place] [address] [employer] Law And Policy Professor Family Medicine 04/21/24 Natalie Kirkpatrick SOLUTION LEAD.GROUNDS FOREMAN [address] [place] [address] [employer] Law And Policy Professor Family Medicine 04/21/24 Tattoo And Body Artist Relationship Specialty Start Date End Date aNye Sheets MD [address] [place] [address] PCP - General Family Medicine 10/24/12 Meenakshi Baekr SOLUTION LEAD.GROUNDS FOREMAN [address] [place] [address] [employer] Policy Professor Family Medicine 04/21/24 Natalie Kirkpatrick SOLUTION LEAD.GROUNDS FOREMAN [address] [place] [address] Forest Law And Policy Professor Family Medicine 04/21/24 Tattoo And Body Artist Relationship Specialty Start Date End Date Naye Sheets MD [address] [place] [address] PCP - General Family Medicine 10/24/12 Meenakshi Baker SOLUTION LEAD.GROUNDS FOREMAN [address] [place] [address] [employer] Law And Policy Professor Family Medicine 04/21/24 Natalie Kirkpatrick SOLUTION LEAD.GROUNDS FOREMAN [address] [place] [address] [employer] Law And Policy Professor Family Medicine 04/21/24 Tattoo And Body Artist Relationship Specialty Start Date End Date Naye Sheets MD [address] [place] [address] PCP - General Family Medicine 10/24/12 Meenakshi Baker, SOLUTION LEAD.GROUNDS FOREMAN [address] [place] [address] [employer] Law [employer] Policy Professor Family Medicine 04/21/24 Natalie Kirkpatrick SOLUTION LEAD.GROUNDS FOREMAN [address] [place] [address] Forest Law And Policy Professor Family Medicine 04/21/24 Tattoo And Body Artist Relationship Specialty Start Date End Date Naye Sheets MD [address] [place] [address] PCP - General Family Medicine 10/24/12 Meenakshi Baker SOLUTION LEAD.GROUNDS FOREMAN [address] [place] [address] [facility] 04/21/24 Natalie Kirkpatrick APRN.[facility] [address] [facility] [place] [address] [facility] 04/21/24 Team Status: Active Member Role Status [...] Provider Active Star t: August 29, 2024 Tattoo And Body Artist Relationship Specialty Start Date End Date Naye Sheets MD [address] [place], [place] [address] PCP - General Family Medicine 10/24/12 08/19/24 Meenakshi Baker APRN.GROUN[employer] FOREMAN [address] [place] [address] Forest Law And Policy Professor [facility] 04/21/24 08/19/24 Natalie Kirkpatrick APRN.GROUNDS FOREMAN [address] [place], [place] [address] [employer] [facility] 04/21/24 08/19/24 Goals (unrecognized section and content) [...] BE BASED ON THE PRIMARY CLINICAL RECORDS. [facility] [employer] [facility]. provides no warranty or guarantee of the accuracy or completeness of information in this document.
[2024-10-28 07:05] LABS: Reflex Lactate? Y
[2024-10-28 08:21] LABS: Lactic Acid 10.4 mmol/L (0.0-2.0)
[2024-10-28 08:29] LABS: Phosphorus 2.5 mg/dL (2.7-4.5)
[2024-10-28] MEDS: 0.9% Normal Saline (1000mL) 1,000 ML 125 ML IV ×2 (08:37→17:48)
--- NOTE | 2024-10-28 09:59 | CASEMGMT ---
SW met with patient as she triggered [facility] assessment for living situation. Patient was being evicted back in August. Patient was given housing resources at that time. SW met with patient. Introduced self and role at [facility]. Patient stated she is still in her apartment. She is not sure how much longer she can stay. Patient said she will return to her apartment at discharge. SW did provide patient with information on homeless shelters as well as [employer] housing program. SW also asked patient if Samadrythania is still her sample case porter with [facility] and patient said yes. SW also asked patient if she would like resources to help her quit drinking. Patient stated no. I can quit drinking. I just don't because I like it. NELI called Samadrythania with [facility] and left her a voice mail letting her know patient is in the hospital. NELI will likely call Adult Protective Services when patient is discharged. Zulema Becerril GATE ATTENDANT MEGHA
[2024-10-28] MEDS: Potassium Phosphate 21 MM in 0.9% Normal Saline (250mL Bag) 250 ML 84 MM IV (10:03)
[2024-10-28] MEDS: Folic Acid 1 MG in 0.9% Normal Saline (50mL Bag) 50 ML 200 MG IV (12:20)
--- NOTE | 2024-10-28 12:25 | CASEMGMT ---
NELI received a phone call from Mauricio with [facility]. NELI updated Mauricio on patient's stay. Mauricio asked if patient was willing to go to a [facility]. NELI has not asked patient this question. Therapy will need to be ordered. NELI told Mauricio SW will keep her updated. Per RN CM patient would like to go to [facility]. Orders for therapy have been placed. Await PT/OT and then make a referral to [facility]. Zulema Becerril [employer]UMINUM SHINGLE ROOFER MEGHA
[2024-10-28] MEDS: Acetaminophen 325 MG Tablet 650 MG PO ×2 (13:06→20:42)
[2024-10-28 13:52] LABS: Anion Gap 22 (5-15); BUN 6 mg/dL (4-19); BUN/Creat Ratio 8.6 RATIO (10-20); Calcium,Total 8.8 mg/dL (7.6-11.0); Carbon Dioxide 27.4 mmol/L (21.0-32.0); Chloride 87 mmol/L (98-108); Creatinine, Serum 0.69 mg/dL (0.70-1.20); EST Glomerular Filtration Rate 96 (>60); Estimated Creatinine Clearance 77.31 ml/min (50-250); Glucose 142 mg/dL (70-99); Potassium 2.7 mmol/L (3.3-5.1); Sodium Level 137 mmol/L (133-145)
--- NOTE | 2024-10-28 14:41 | CASEMGMT ---
KYLIE ROE NOTE: Index admission: 10/02-10/03: Hypokalemia, hypomagnesemia. Etiology was felt to be 2/2 diarrhea. Pt w/hx of chronic ETOH use disorder, alcohol hepatitis, bipolar, chronic depression, anemia, ulcer GERD, GIB. Pt declined wanting to dc to SNF. Pt discharged home 10/03. DC instructions stated to take Ferrous Sulfate 325 mg BID and continue Protonix BID. Pt to f/u with Dr Self in 1 month. Pt does not have PCP. Current admission: Admitted 10/28 w/GIB. Per pt, she was not aware she was to take Ferrous Sulfate. She stated she did not review the dc instructions herself, but her DIESEL RETROFIT DESIGNER did read them to her and she did not notice it said to start that. She verifies she did continue taking Protonix BID, as instructed. She states was told to see Dr Lopez, not Dr Self, and that she had an appt scheduled w/Dr Lopez 10/20 & 10/24 for f/u on test results. Pt states she cx'd d/t being ill. She has not re-scheduled a f/u appt since. Discussed discharge planning. Pt states she has been very weak and having difficulty getting around. She states she would like to go to [facility] @ discharge and denies wanting list of other SNF options unless [facility] unable to accept her. She states she knows the people there. Pt states she does need a PCP and would like to go to Dr Shannon again, but she is not sure if he will accept her back, stating she received a letter stating d/t not showing up to appts they would not take her back. She asked if KYLIE ROE could verify this. Call to Dr Shannon's office. They have dismissed her and will not accept her back. Pt made aware. She was made aware, d/t plans of her dc'ing to SNF, to ask SW @ [facility] to assist w/getting appt w/new PCP, as they will have a better idea of when she will be returning back home. She voices understanding. Plan: [facility] RN, CM
[2024-10-28] MEDS: Lactated Ringers 1,000 ML 15 ML IV (14:51)
--- NOTE | 2024-10-28 15:08 | PCM.PRE.AN2 ---
ASA Classification* ASA Classification ASA Classification: 3 (GERD, alcoholism, N/V, liver disease, Hypomagnesemia,potassium 2.7) Assessment & Plan Anesthesia* Anesthesia Assessment Anesthesia Assessment: Discussed sedation and/or anesthesia options, risks, benefits, and alternatives with patient/parents/legal guardian/POA. Questions invited. The patient/parents/legal guardian/POA seems to understand and agrees to proceed with anesthesia plan. Reviewed the physical assessment, medical history, allergy history and patient home medications list prior to surgery/procedure/anesthetic and documented any changes. Performed airway and anesthesia risk assessments. Procedural Plan Procedural Plan:: NOT optimized for anesthesia (This patient's potassium is 2.7, recent vomiting, will require improvement in K+ prior to proceeding ) Anesthesia Type Anesthesia Type: General (Cancelled ) History Source History Obtained from:: Chart Anesthesia Focused Assessment* Temperature: 97.7 F Pulse Rate: 99 Blood Pressure: 121/75 Respiratory Rate: 14 Pulse Ox: 95 Airway Assessment Mouth opens: >3 cm Mallampati Score: III Teeth Condition: Missing (poor dentition) Neck Range of motion (ROM): Full ROM Labs Anesthesia Preop lab: CBC WBC 8.5 K/mm3 (4.4-11.0) 10/28/24 02:45 10/28/24 RBC 4.62 M/mm3 (4.2-5.4) 10/28/24 02:45 10/28/24 Hgb 13.3 g/dL (12.0-15.0) 10/28/24 02:45 10/28/24 Hct 39.9 % (37-47) 10/28/24 02:45 10/28/24 Plt Count 477 K/mm3 (150-450) H 10/28/24 02:45 10/28/24 CHEMISTRY Potassium 2.7 mmol/L (3.3-5.1) L* 10/28/24 12:45 10/28/24 Sodium 137 mmol/L (133-145) 10/28/24 12:45 10/28/24 Magnesium 2.0 mg/dL (1.5-2.2) 10/28/24 12:45 10/28/24 Phosphorus 2.5 mg/dL (2.7-4.5) L 10/28/24 02:45 10/28/24 BUN 6 mg/dL (4-19) 10/28/24 12:45 10/28/24 Creatinine 0.69 mg/dL (0.70-1.20) L 10/28/24 12:45 10/28/24 Glucose 142 mg/dL (70-99) H 10/28/24 12:45 10/28/24 TSH 6.550 uIU/mL (0.300-4.200) H 08/28/24 04:52 08/28/24 COAG PT 16.0 SECONDS (11.7-14.9) H 10/28/24 02:45 10/28/24 Pre-Assessment Diagnosis/Proposed Procedure Planned Operative Procedure(s): EGD Anesthesia History 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 When Was Last Pacemaker Check QUESTION #4 FULL TEXT: You/Your Family Experience fever (hyperthermia) with Anesthesia Last Oral Intake Last Oral intake: Last Oral Intake NPO since 00:00 10/28/24 14:25 Meds taken in AM with sips of Yes 10/28/24 14:25 water? Meds patient instructed to Tylenol 10/28/24 14:25 take am of surgery PONV PONV - cake inspector: PONV - cake inspector Female HX of Motion Sickness HX of N/V After Surgery Non-Smoker Duration of Surgery greater than 60 minutes Number of Risk Factors PONV Score Height & Weight Height & Weight: Anesthesia: Height & Weight Height 5 ft 11 in 10/28/24 14:25 Weight: 82.4 kg 10/28/24 14:25 Body Mass Index (BMI) 25.3 10/28/24 14:25 Respiratory Assessment Respiratory Assessment - cake inspector: Respiratory Tract Infection Hx - cake inspector Hx Respiratory Tract Infection No 10/28/24 14:25 STOP Sleep Apnea STOP Sleep Apnea - cake inspector: STOP Sleep Apnea - cake inspector Hx Hypertension No 10/28/24 08:02 Hx Sleep Apnea No 10/28/24 08:02 CPAP BIPAP Do you snore loudly (louder No 10/28/24 08:02 than talking or can be heard Do you often feel tired/ No 10/28/24 08:02 fatigued/ sleepy during daytime? Has anyone observed you stop No 10/28/24 08:02 breathing during sleep? STOP Results Negative 10/28/24 08:02 QUESTION #5 FULL TEXT : Do you snore loudly (louder than talking or can be heard through closed doors)? 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 Specify any problems Hx of Preganancy in last 3 No 10/28/24 08:02 Months Nurse Filling Out Transfusion JNORRIS 10/28/24 08:02 & Questions: Date: 10/28/24 10/28/24 08:02 Time: 08:12 10/28/24 08:02 Patient unable to answer at this time (ie. confused, unrespo /Reproduction History /Reproductive History - cake inspector: /Reproductive Hx- cake inspector Hx Now No 10/28/24 14:25 Gestational Age (in weeks): EDC: Hx Hx Para Hx Section SAB No 10/03/24 11:24 Active Medications Active Medications: Current Medications Generic Name Dose Route Start Last Admin Trade Name Freq PRN Reason Stop Dose Admin Acetaminophen 650 mg 10/28/24 12:45 10/28/24 13:06 Acetaminophen 325 Mg Tablet PO 650 mg Q6H PRN PRN Administration Pain 1-10 or Fever Pantoprazole Sodium 80 mg/ 100 mls @ 10 mls/hr 10/28/24 03:00 10/28/24 13:02 Sodium Chloride CONT INF 10 mls/hr Q10H ULICES Infusion Sodium Chloride 1,000 mls @ 125 mls/hr 10/28/24 08:01 10/28/24 08:37 IV 125 mls/hr .Q8H ULICES Administration Thiamine HCl 500 mg/ Sodium 105 mls @ 200 mls/hr 10/28/24 14:00 Chloride IV 11/02/24 06:33 Q8 ULICES Folic Acid 1 mg/ Sodium 50.2 mls @ 200 mls/hr 10/28/24 10:00 10/28/24 12:36 Chloride IV Infused DAILY ULICES Infusion Lactated Ringer's 1,000 mls @ 15 mls/hr 10/28/24 14:45 10/28/24 14:51 IV 15 mls/hr .Q48H ULICES Administration Ondansetron HCl 4 mg 10/28/24 08:01 Ondansetron 4 Mg/2 Ml Vial IV Q8H PRN PRN NAUSEA/VOMITING Prochlorperazine Edisylate 5 mg 10/28/24 08:01 Prochlorperazine 10 Mg/2 Ml Vial IV Q4H PRN PRN Breakthrough Nausea/Vomiting PFSH Medical History Cholelithiasis Anemia Migraines Difficulty walking Urge incontinence Acute cystitis with hematuria Muscle weakness Osteoarthritis Alcoholic hepatitis Alcoholic liver disease Acute respiratory failure with hypoxia Metabolic encephalopathy Major depression Protein calorie malnutrition Acute post-hemorrhagic anemia Dysphagia, oropharyngeal phase Malignant neoplasm of colon Ulcer Restless legs Injury of head and neck Anemia Alcohol abuse Bipolar disorder Hypothyroidism Osteoporosis Kidney stones GERD (gastroesophageal reflux disease) GI bleed Former smoker Home Medications ?Medication ?Instructions ?Recorded ?Last Taken ?Type ipratropium 0.5 mg-albuterol 3 mg 3 ml inhalation Q4H PRN shortness 07/23/24 Unknown History (2.5 mg base)/3 mL nebulization of breath soln magnesium glycinate 100 mg (as 100 mg PO BID 07/23/24 Unknown History glycinate) tablet (Mag Glycinate) magnesium oxide 400 mg PO QDAY 07/23/24 Unknown History pantoprazole 40 mg tablet,delayed 40 mg PO BID GERD 30 days #60 tabs 08/29/24 Unknown Rx release Allergy/AdvReac Type Severity Reaction Status Date / Time amoxicillin Allergy Intermediate Swelling, Verified 10/28/24 02:18 itching Family History Mother Alcohol abuse CAD (coronary artery disease) Heart disease Hypertension Myocardial infarction Father Alcohol abuse Cancer Surgical History History of total knee arthroplasty History of right hip replacement H/O total hysterectomy Social History household members: none Smoking Status: Never smoker alcohol intake: current alcohol intake frequency: 3 or more drinks per day details: Notes binge drinking, whiskey. substance use type: other details: Former cannabis usage. Stopped ~ 40 years ago. Review of Systems (Anesthesia) ROS Narrative System reviewed and no additional complaints, except as documented.
[2024-10-28] MEDS: Thiamine Hydrochloride 500 MG in 0.9% Normal Saline (100mL Bag) 100 ML 200 MG IV ×2 (16:00→21:37)
[2024-10-28] MEDS: 0.9% Saline Lock 10 ML Syringe IV ×2 (16:39→17:49)
[2024-10-28] MEDS: Potassium Chloride Oral Tablet 20 MEQ 40 MEQ PO (16:43)
[2024-10-28] MEDS: Potassium Chloride 10mEq/100mL 10 MEQ/100 ML IV.SOLN. 100 MEQ IV BOLUS ×4 (16:49→19:58)
[2024-10-29] MEDS: 0.9% Normal Saline (1000mL) 1,000 ML 125 ML IV ×3 (01:55→21:06)
[2024-10-29 03:09] LABS: Amphetamine Urine NEGATIVE (<1000 ng/mL); Barbiturate Urine NEGATIVE (< 200 ng/mL); Benzodiazepine Urine NEGATIVE (< 200 ng/mL); Buprenorphine Urine NEGATIVE (< 200 ng/mL); Cocaine Urine NEGATIVE (< 300 ng/mL); Fentanyl, Urine NEGATIVE; Methadone Urine NEGATIVE (< 300 ng/mL); Opiates Urine NEGATIVE (< 300 ng/mL); Oxycodone, Urine NEGATIVE (< 100 ng/mL); PCP Urine NEGATIVE (< 25 ng/mL); THC Urine NEGATIVE (< 50 ng/mL)
[2024-10-29] MEDS: Pantoprazole Sodium 80 MG in 0.9% Normal Saline (100mL Bag) 80 ML 10 MG CONT INF ×2 (03:36→15:50)
[2024-10-29 04:50] VITALS: BP 113/69; PULSE 86; RESP 18; TEMP 36.5; O2SAT 97
[2024-10-29 05:56] LABS: Absolute Lymphocyte Count 1.68 X10^3/uL (0.83-4.51); Absolute Neutrophil Count 1.7 X10^3/uL (2.0-7.7); Basophil# 0.02 X10^3/uL; Basophil% 0.5 % (0-1); Eosinophils% 2.6 % (0-5); Hematocrit 31.2 % (37-47); Hemoglobin 10.1 g/dL (12.0-15.0); Lymphocyte # 1.68 X10^3/ul (0.83-4.51); Lymphocyte % 44.2 % (19-41); Mean Corp Hgb Conc 32.4 g/dL (32-36); Mean Corpuscular Hgb 28.7 pg (27.0-32.0); Mean Corpuscular Volume 88.6 fL (81-99); Mean Platelet Vol. 8.9 fl (6.2-12.0); Monocyte# 0.26 X10^3/uL; Monocyte% 6.8 % (0-10); NRBC Flagged by Analyzer 0 % (0-5); Neutrophil # 1.74 X10^3/uL (2.7-7.7); Neutrophil % 45.9 % (47-70); Platelet Count 208 K/mm3 (150-450); RBC Distribution Width CV 19.6 % (11.6-14.6); RBC Distribution Width SD 63.3 fl (35.1-43.9); Red Blood Count 3.52 M/mm3 (4.2-5.4); White Blood Count 3.8 K/mm3 (4.4-11.0)
[2024-10-29 06:07] LABS: International Normalized Ratio 1.4
[2024-10-29 06:08] LABS: Partial Thromboplast Time 31.7 Seconds (24.1-36.2)
[2024-10-29 06:21] LABS: ALB/GLOB Ratio 0.9 RATIO (0.9-2.4); AST(SGOT) 35 U/L (<=31); Alanine Aminotransfer ALT/SGPT 10 U/L (<=34); Albumin, Serum 2.9 g/dL (3.4-4.8); Alkaline Phosphatase 187 U/L (35-104); Anion Gap 10 (5-15); BUN 5 mg/dL (4-19); BUN/Creat Ratio 10.2 RATIO (10-20); Calcium,Total 7.9 mg/dL (7.6-11.0); Chloride 94 mmol/L (98-108); EST Glomerular Filtration Rate 104 (>60); Estimated Creatinine Clearance 77.31 ml/min (50-250); Glucose 83 mg/dL (70-99); Magnesium 1.5 mg/dL (1.5-2.2); Potassium 3.1 mmol/L (3.3-5.1); Protein, Total 5.9 g/dL (5.9-8.4); Sodium Level 134 mmol/L (133-145); Total Bilirubin 1.15 mg/dL (0.00-1.30)
[2024-10-29] MEDS: Thiamine Hydrochloride 500 MG in 0.9% Normal Saline (100mL Bag) 100 ML 200 MG IV ×3 (06:33→21:06)
[2024-10-29 07:03] LABS: Bilirubin, Direct 0.59 mg/dL (0.00-0.30)
[2024-10-29 08:10] VITALS: BP 105/83; PULSE 79; RESP 14; TEMP 36.9; O2SAT 96
--- NOTE | 2024-10-29 09:52 | PCM.PN.HOSP ---
Subjective Subjective Feels better, no issues overnight. Potassium is improving so she should be able to get her EGD today which was canceled because of how low her potassium was yesterday Objective Data Objective Data Vital Signs: Vital Signs Temp Pulse Resp BP Pulse Ox O2 Del Method 98.5 F 79 14 105/83 H 96 Room Air 10/29/24 08:10 10/29/24 08:10 10/29/24 08:10 10/29/24 08:10 10/29/24 08:10 10/29/24 08:10 Oxygen Delivery Method Room Air Weight: 181 lb 10.574 oz Body Mass Index (BMI) 25.3 Intake & Output: Intake and Output for Last 24 Hours 10/28/24 10/29/24 10/30/24 03:59 03:59 03:59 Intake Total 35 / 35 5582.37 / 5582.37 105 / 105 Output Total 200 / 200 Balance 35 / 35 5582.37 / 5582.37 -95 / -95 Lab / Micro Data 10/29/24 05:46 10/29/24 05:46 Labs: Laboratory Results - last 24 hr 10/28/24 12:45: Sodium 137, Potassium 2.7 L*, Chloride 87 L, Carbon Dioxide 27.4, Anion Gap 22 H, BUN 6, Creatinine 0.69 L, Estim Creat Clear Calc 77.31, Est GFR (MDRD) Non-Af 96, BUN/Creatinine Ratio 8.6 L, Glucose 142 H, Calcium 8.8, Magnesium 2.0 10/29/24 02:30: Urine Opiates Screen NEGATIVE, U Buprenorphine Qual NEGATIVE, Ur Oxycodone Screen NEGATIVE, Urine Methadone Screen NEGATIVE, Urine Fentanyl Screen NEGATIVE, Ur Barbiturates Screen NEGATIVE, Ur Phencyclidine Scrn NEGATIVE, Ur Amphetamines Screen NEGATIVE, U Benzodiazepines Scrn NEGATIVE, Urine Cocaine Screen NEGATIVE, U Cannabinoids Screen NEGATIVE 10/29/24 05:46: WBC 3.8 L, RBC 3.52 L, Hgb 10.1 L, Hct 31.2 L, MCV 88.6, MCH 28.7, MCHC 32.4, RDW Std Deviation 63.3 H, RDW Coeff of Angelo 19.6 H, Plt Count 208, MPV 8.9, Immature Gran % (Auto) 0.000, Neut % (Auto) 45.9 L, Lymph % (Auto) 44.2 H, [place] % (Auto) 6.8, Eos % (Auto) 2.6, Baso % (Auto) 0.5, Absolute Neuts (auto) 1.7 L, Absolute Lymphs (auto) 1.68, Nucleated RBC % 0, PT 17.0 H, INR 1.4, APTT 31.7, Sodium 134, Potassium 3.1 L, Chloride 94 L, Carbon Dioxide 30.0, Anion Gap 10, BUN 5, Creatinine 0.50 L, Estim Creat Clear Calc 77.31, Est GFR (MDRD) Non-Af 104, BUN/Creatinine Ratio 10.2, Glucose 83, Calcium 7.9, Magnesium 1.5, Total Bilirubin 1.15, Direct Bilirubin 0.59 H, AST 35 H, ALT 10, Alkaline Phosphatase 187 H, Total Protein 5.9, Albumin 2.9 L, Globulin 3.0, Albumin/Globulin Ratio 0.9 Micro: Microbiology 10/28/24 03:54 Stool Stool Occult Blood (NOAH) - Final Occult Blood Positive Physical Exam Narrative General: Alert, Oriented x3, Cooperative, No apparent distress HEENT: Atraumatic, PERRLA, EOMI, Normocephalic Oral: Moist Mucosa Neck: Supple, No JVD Lungs: Diminished, Normal air movement, No rhonchi, No wheeze, No rales Cardiovascular: Regular rate, Regular Rhythm, Normal S1, Normal S2, No murmurs Abdomen: Soft, Non Tender, Non-Distended, No Hepato-splenomegaly Extremities: No edema, Capillary Refill Less than 3 Seconds Skin: No rashes, No breakdown Musculoskeletal: No Tenderness to Palpation of Joints or Extremities Neurological: No focal neurological deficits, Motor Exam 5/5 strength throughout, Sensory exam intact to light touch and pain Psych/Mental Status: Normal Affect, Appropriate Assessment & Plan Assessment/Plan (1) GI (gastrointestinal bleed): (2) Alcohol intoxication: PLAN: Plan 1. Upper GI bleed complicated by history of alcoholic cirrhosis ? Continue PPI ? Will continue with folic acid ? Continue with CIWA protocol, can adjust medications as needed ? Plan for EGD today ? Continue with IV fluids ? She was little intoxicated on admission with a blood alcohol level 33.8 2. Hypomagnesemia and hypokalemia ? Replaced ? Will continue to monitor DVT: SCDs Charges/Coding Visit Charges Inpatient E&M: 42447 Subs Hosp L2
[2024-10-29] MEDS: Potassium Chloride 10mEq/100mL 10 MEQ/100 ML IV.SOLN. 100 MEQ IV BOLUS ×4 (10:44→14:39)
[2024-10-29] MEDS: Folic Acid 1 MG in 0.9% Normal Saline (50mL Bag) 50 ML 200 MG IV (12:05)
--- NOTE | 2024-10-29 13:46 | CASEMGMT ---
Therapy notified SW that patient would benefit from going somewhere for rehab. Per RN CM patient was interested in [facility]. SW asked Heike d/ade [employer] and planning [facility] Zulema [place]
--- NOTE | 2024-10-29 14:45 | CASEMGMT ---
NELI called Mauricio with [facility] and left her a voice mail letting her know patient has agreed to go to [facility]. NELI also let Mauricio know a referral will be made when patient is seen by OT. Zulema [place]
--- NOTE | 2024-10-29 14:59 | CASEMGMT ---
Discharge Planning Referral sent to [facility]. Heike Casarez DC Planning Asst.
[2024-10-29] MEDS: Acetaminophen 325 MG Tablet 650 MG PO ×2 (16:10→22:23)
[2024-10-29 16:12] VITALS: BP 118/77; PULSE 92; RESP 18; TEMP 37; O2SAT 93
--- NOTE | 2024-10-29 17:19 | PN_ITS ---
Progress Note Patient still complains of nausea but she would like to try to eat something today. Physical Exam Narrative General: Alert, Oriented x3, Cooperative, No apparent distress HEENT: Atraumatic, PERRLA, EOMI, Normocephalic Oral: Moist Mucosa Neck: Supple, No JVD Lungs: Diminished, Normal air movement, No rhonchi, No wheeze, No rales Cardiovascular: Regular rate, Regular Rhythm, Normal S1, Normal S2, No murmurs Abdomen: Soft, Non Tender, Non-Distended, No Hepato-splenomegaly Extremities: No edema, Capillary Refill Less than 3 Seconds Skin: No rashes, No breakdown Musculoskeletal: No Tenderness to Palpation of Joints or Extremities Neurological: No focal neurological deficits, Motor Exam 5/5 strength throughout, Sensory exam intact to light touch and pain Psych/Mental Status: Normal Affect, Appropriate Assessment & Plan Assessment/Plan (1) Anemia: QUALIFIERS: Anemia type: iron deficiency Iron deficiency anemia type: chronic blood loss Qualified Code(s): D50.0 - Iron deficiency anemia secondary to blood loss (chronic) (2) Alcoholic hepatitis: (3) Cholelithiasis: (4) Dilated pancreatic duct: PLAN: Plan 64-year-old with history of alcohol abuse complicated by alcoholic hepatitis possible cirrhosis, chronic pancreatitis presents with fatigue and weakness and discovered to have multiple electrolyte abnormalities thought to be secondary to malnutrition from alcoholism. There is also possible possible UGI bleed. She will undergo an upper endoscopy about upper GI tract. She was explained alternatives, risk and benefits including withstanding bleeding infection, subsequent perforation, need for urgent . She have an ASA of 3. 10/29/2024-n.p.o. past midnight for upper endoscopy tomorrow morning. Visit Charges Inpatient E&M: 19266 [facility] [[email or web address]] Hosp L3
[2024-10-29 21:04] VITALS: BP 111/71; PULSE 94; RESP 16; TEMP 36.6; O2SAT 98
[2024-10-29] MEDS: 0.9% Saline Lock 10 ML Syringe IV (21:06)
[2024-10-30] VITALS (9 sets, daily range): BP systolic 116–141; BP diastolic 72–88; PULSE 84–94; RESP 14–18; TEMP 36.1–37.2; O2SAT 97–100
[2024-10-30] MEDS: Pantoprazole Sodium 80 MG in 0.9% Normal Saline (100mL Bag) 80 ML 10 MG CONT INF ×2 (01:50→16:17)
[2024-10-30] MEDS: Acetaminophen 325 MG Tablet 650 MG PO ×3 (04:24→21:54)
[2024-10-30] MEDS: 0.9% Normal Saline (1000mL) 1,000 ML 125 ML IV (05:06)
[2024-10-30] MEDS: Thiamine Hydrochloride 500 MG in 0.9% Normal Saline (100mL Bag) 100 ML 200 MG IV ×3 (05:29→21:15)
[2024-10-30 06:11] LABS: Absolute Lymphocyte Count 1.57 X10^3/uL (0.83-4.51); Absolute Neutrophil Count 1.5 X10^3/uL (2.0-7.7); Basophil# 0.02 X10^3/uL; Basophil% 0.6 % (0-1); Eosinophil# 0.08 X10^3/uL; Eosinophils% 2.3 % (0-5); Hematocrit 31.3 % (37-47); Lymphocyte # 1.57 X10^3/ul (0.83-4.51); Lymphocyte % 45.5 % (19-41); Mean Corp Hgb Conc 31.9 g/dL (32-36); Mean Corpuscular Hgb 29.1 pg (27.0-32.0); Mean Platelet Vol. 9.4 fl (6.2-12.0); Monocyte# 0.29 X10^3/uL; Monocyte% 8.4 % (0-10); NRBC Flagged by Analyzer 0 % (0-5); Neutrophil # 1.48 X10^3/uL (2.7-7.7); Neutrophil % 42.9 % (47-70); POSITIVE MORPHOLOGY YES; Platelet Count 162 K/mm3 (150-450); RBC Distribution Width SD 67.3 fl (35.1-43.9); Red Blood Count 3.44 M/mm3 (4.2-5.4); White Blood Count 3.5 K/mm3 (4.4-11.0)
[2024-10-30 06:18] LABS: Differential Indicated SCAN CRITERIA MET
[2024-10-30 06:33] LABS: Anion Gap 10 (5-15); BUN 5 mg/dL (4-19); BUN/Creat Ratio 10.7 RATIO (10-20); Calcium,Total 7.7 mg/dL (7.6-11.0); Carbon Dioxide 24.9 mmol/L (21.0-32.0); Chloride 101 mmol/L (98-108); Creatinine, Serum 0.51 mg/dL (0.70-1.20); EST Glomerular Filtration Rate 103 (>60); Estimated Creatinine Clearance 77.31 ml/min (50-250); Glucose 74 mg/dL (70-99); Potassium 3.6 mmol/L (3.3-5.1); Sodium Level 136 mmol/L (133-145)
[2024-10-30 07:15] LABS: Anisocytosis 2+; Differential Comment SCANNED
--- NOTE | 2024-10-30 10:14 | PCM.PN.HOSP ---
Subjective Subjective Doing well, no issues overnight. Hemoglobin is stable at 10, and potassium has finally stabilized Objective Data Objective Data Vital Signs: Vital Signs Temp Pulse Resp BP Pulse Ox O2 Del Method 97.9 F 86 18 116/84 H 98 Room Air 10/30/24 09:31 10/30/24 09:31 10/30/24 09:31 10/30/24 09:31 10/30/24 09:31 10/30/24 09:40 Oxygen Delivery Method Room Air Weight: 181 lb 10.574 oz Body Mass Index (BMI) 25.3 Intake & Output: Intake and Output for Last 24 Hours 10/29/24 10/30/24 10/31/24 03:59 03:59 03:59 Intake Total 5582.37 / 5582.37 3427.70 / 3427.70 1105 / 1105 Output Total 1380 / 1380 600 / 600 Balance 5582.37 / 5582.37 2047.70 / 2047.70 505 / 505 Medical Nutrition Assessment Dietitian: Malnutrition Criteria Met Start: 10/28/24 11:41 Freq: Status: Active Protocol: Document 10/29/24 15:17 SB (Rec: 10/29/24 15:17 SB [id number]) Nutrition Malnutrition Evidence of Yes Malnutrition Exists Malnutrition (severe Acute Illness/Injury ): Evidenced By Suboptimal Energy Intake (Severe),Weight Loss (Severe) Clinical Problem Acute Disease or Injury Related Malnutrition Etiology severe related to inadequate oral intake and likely due to alcohol abuse Signs/Symptoms as evidenced by PO meeting <50% of estimated nutrition needs x 2-3 days and 8% unintentional weight loss x 2 months Status Active Problem Recommendation Dietitian Recommend advanced diet as tolerated to liberal regular Recommendations/ due to signs and symptoms of malnutrition. Changes Recommend 120ml EPHP TID with medpass, as diet is advanced. Will monitor weight trends. Lab / Micro Data 10/30/24 05:09 10/30/24 05:09 Labs: Laboratory Results - last 24 hr 10/30/24 05:09: WBC 3.5 L, RBC 3.44 L, Hgb 10.0 L, Hct 31.3 L, MCV 91.0, MCH 29.1, MCHC 31.9 L, RDW Std Deviation 67.3 H, RDW Coeff of Angelo 20.0 H, Plt Count 162, MPV 9.4, Immature Gran % (Auto) 0.300, Neut % (Auto) 42.9 L, Lymph % (Auto) 45.5 H, [place] % (Auto) 8.4, Eos % (Auto) 2.3, Baso % (Auto) 0.6, Absolute Neuts (auto) 1.5 L, Absolute Lymphs (auto) 1.57, Nucleated RBC % 0, Differential Comment SCANNED, Anisocytosis 2+, Sodium 136, Potassium 3.6, Chloride 101, Carbon Dioxide 24.9, Anion Gap 10, BUN 5, Creatinine 0.51 L, Estim Creat Clear Calc 77.31, Est GFR (MDRD) Non-Af 103, BUN/Creatinine Ratio 10.7, Glucose 74, Calcium 7.7 Micro: Microbiology 10/28/24 03:54 Stool Stool Occult Blood (NOAH) - Final Occult Blood Positive Physical Exam Narrative General: Alert, Oriented x3, Cooperative, No apparent distress HEENT: Atraumatic, PERRLA, EOMI, Normocephalic Oral: Moist Mucosa Neck: Supple, No JVD Lungs: Diminished, Normal air movement, No rhonchi, No wheeze, No rales Cardiovascular: Regular rate, Regular Rhythm, Normal S1, Normal S2, No murmurs Abdomen: Soft, Non Tender, Non-Distended, No Hepato-splenomegaly Extremities: No edema, Capillary Refill Less than 3 Seconds Skin: No rashes, No breakdown Musculoskeletal: No Tenderness to Palpation of Joints or Extremities Neurological: No focal neurological deficits, Motor Exam 5/5 strength throughout, Sensory exam intact to light touch and pain Psych/Mental Status: Normal Affect, Appropriate Assessment & Plan Assessment/Plan (1) GI (gastrointestinal bleed): (2) Alcohol intoxication: PLAN: Plan 1. Upper GI bleed complicated by history of alcoholic cirrhosis ? Continue PPI ? Will continue with folic acid ? Continue with CIWA protocol, can adjust medications as needed ? Plan for EGD today ? Continue with IV fluids ? She was little intoxicated on admission with a blood alcohol level 33.8 2. Hypomagnesemia and hypokalemia ? Replaced ? Will continue to monitor DVT: SCDs Charges/Coding Visit Charges Inpatient E&M: 84444 Subs Hosp L2
[2024-10-30] MEDS: Folic Acid 1 MG in 0.9% Normal Saline (50mL Bag) 50 ML 200 MG IV (10:51)
--- NOTE | 2024-10-30 10:52 | CASEMGMT ---
Discharge Planning [facility] accepted. SW updated. Heike Casarez DC Planning Asst.
--- NOTE | 2024-10-30 11:41 | CASEMGMT ---
Discharge Planning Updates sent to [facility] with request to submit for precert. Heike Casarez DC Planning Asst.
--- NOTE | 2024-10-30 12:20 | PN_ITS ---
Progress Note Patient has been n.p.o. for upper endoscopy today. Physical Exam Narrative General: Alert, Oriented x3, Cooperative, No apparent distress HEENT: Atraumatic, PERRLA, EOMI, Normocephalic Oral: Moist Mucosa Neck: Supple, No JVD Lungs: Diminished, Normal air movement, No rhonchi, No wheeze, No rales Cardiovascular: Regular rate, Regular Rhythm, Normal S1, Normal S2, No murmurs Abdomen: Soft, Non Tender, Non-Distended, No Hepato-splenomegaly Extremities: No edema, Capillary Refill Less than 3 Seconds Skin: No rashes, No breakdown Musculoskeletal: No Tenderness to Palpation of Joints or Extremities Neurological: No focal neurological deficits, Motor Exam 5/5 strength thro ughout, Sensory exam intact to light touch and pain Psych/Mental Status: Normal Affect, Appropriate Assessment & Plan Assessment/Plan (1) Anemia: QUALIFIERS: Anemia type: iron deficiency Iron deficiency anemia type: chronic blood loss Qualified Code(s): D50.0 - Iron deficiency anemia secondary to blood loss (chronic) (2) Alcoholic hepatitis: (3) Cholelithiasis: (4) Dilated pancreatic duct: PLAN: Plan 64-year-old with history of alcohol abuse complicated by alcoholic hepatitis possible cirrhosis, chronic pancreatitis presents with fatigue and weakness and discovered to have multiple electrolyte abnormalities thought to be secondary to malnutrition from alcoholism. There is also possible possible UGI bleed. She will undergo an upper endoscopy about upper GI tract. She was explained alternatives, risk and benefits including withstanding bleeding infection, subsequent perforation, need for urgent . She have an ASA of 3. 10/29/2024-n.p.o. past midnight for upper endoscopy tomorrow morning. 10/30/2024-hemoglobin seems to be stable. She will undergo an upper endoscopy to evaluate upper GI tract for s cause of of upper GI bleed. She was explained alternatives, risk, benefits include not withstanding bleeding, infection, sepsis, perforation, need for more surgery . She will have an ASA of 3. Visit Charges Inpatient E&M: 60908 Subs Hosp L2
[2024-10-30] MEDS: Lactated Ringers 1,000 ML 15 ML IV (12:29)
--- NOTE | 2024-10-30 12:33 | PRE.ANES_ITS ---
ASA Classification* ASA Classification ASA Classification: 3 (GERD, alcoholism, N/V, liver disease, Hypomagnesemia, hypokalemia (both fixed now) ) Assessment & Plan Anesthesia* Anesthesia Assessment Anesthesia Assessment: Discussed sedation and/or anesthesia options, risks, benefits, and alternatives with patient/parents/legal guardian/POA. Questions invited. The patient/parents/legal guardian/POA seems to understand and agrees to proceed with anesthesia plan. Reviewed the physical assessment, medical history, allergy history and patient home medications list prior to surgery/procedure/anesthetic and documented any changes. Performed airway and anesthesia risk assessments. Anesthesia Type Anesthesia Type: MAC History Source History Obtained from:: Patient and Chart Anesthesia Focused Assessment* Temperature: 97.9 F Pulse Rate: 86 Blood Pressure: 116/84 Respiratory Rate: 18 Pulse Ox: 98 Oxygen Delivery Method: Room Air Airway Assessment Mouth opens: >3 cm Mallampati Score: III Teeth Condition: Missing (poor dentition) Neck Range of motion (ROM): Full ROM Labs Anesthesia Preop lab: CBC WBC 3.5 K/mm3 (4.4-11.0) L 10/30/24 05:09 10/30/24 RBC 3.44 M/mm3 (4.2-5.4) L 10/30/24 05:09 10/30/24 Hgb 10.0 g/dL (12.0-15.0) L 10/30/24 05:09 5 Hct 31.3 % (37-47) L 10/30/24 05:09 10/30/24 Plt Count 162 K/mm3 (150-450) 10/30/24 05:09 10/30/24 CHEMISTRY Potassium 3.6 mmol/L (3.3-5.1) 10/30/24 05:09 10/30/24 Sodium 136 mmol/L (133-145) 10/30/24 05:09 10/30/24 Magnesium 1.5 mg/dL (1.5-2.2) 10/29/24 05:46 10/29/24 Phosphorus 2.5 mg/dL (2.7-4.5) L 10/28/24 02:45 10/28/24 BUN 5 mg/dL (4-19) 10/30/24 05:09 10/30/24 Creatinine 0.51 mg/dL (0.70-1.20) L 10/30/24 05:09 Glucose 74 mg/dL (70-99) 10/30/24 05:09 10/30/24 TSH 6.550 uIU/mL (0.300-4.200) H 08/28/24 04:52 COAG PT 17.0 SECONDS (11.7-14.9) H 10/29/24 05:46 10/12 01/05 Pre-Assessment Diagnosis/Proposed Procedure Planned Operative Procedure(s): EGD Anesthesia History 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 When Was Last Pacemaker Check QUESTION #4 FULL TEXT: You/Your Family Experience fever (hyperthermia) with Anesthesia Last Oral Intake Last Oral intake: Last Oral Intake NPO since 00:00 10/28/24 14:25 Meds taken in AM with sips of Yes 10/28/24 14:25 water? Meds patient instructed to Tylenol 10/28/24 14:25 take am of surgery PONV PONV - harness fitter: PONV - harness fitter Female HX of Motion Sickness HX of N/V After Surgery Non-Smoker Duration of Surgery greater than 60 minutes Number of Risk Factors PONV Score Height & Weight Height & Weight: Anesthesia: Height & Weight Height 5 ft 11 in 10/28/24 14:25 Weight: 82.4 kg 10/28/24 14:25 Body Mass Index (BMI) 25.3 10/28/24 14:25 Respiratory Assessment Respiratory Assessment - harness fitter: Respiratory Tract Infection Hx - harness fitter Hx Respiratory Tract Infection No 10/30/24 06:00 STOP Sleep Apnea STOP Sleep Apnea - harness fitter: STOP Sleep Apnea - harness fitter Hx Hypertension No 10/29/24 14:14 Hx Sleep Apnea No 10/28/24 08:02 CPAP BIPAP Do you snore loudly (louder No 10/28/24 08:02 than talking or can be heard Do you often feel tired/ No 10/28/24 08:02 fatigued/ sleepy during daytime? Has anyone observed you stop No 10/28/24 08:02 breathing during sleep? STOP Results Negative 10/28/24 08:02 QUESTION #5 FULL TEXT : Do you snore loudly (louder than talking or can be heard through closed doors)? 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 Specify any problems Hx of Preganancy in last 3 No 10/28/24 08:02 Months Nurse Filling Out Transfusion JNORRIS 10/28/24 08:02 & Questions: Date: 10/28/24 10/28/24 08:02 Time: 08:12 10/28/24 08:02 Patient unable to answer at this time (ie. confused, unrespo /Reproduction History /Reproductive History - harness fitter: /Reproductive Hx- harness fitter Hx Now No 10/30/24 06:00 Gestational Age (in weeks): EDC: Hx Hx Para Hx Section SAB No 10/30/24 06:00 Active Medications Active Medications: Current Medications Generic Name Dose Route Start Last Admin Trade Name Freq PRN Reason Stop Dose Admin Acetaminophen 650 mg 10/28/24 12:45 10/30/24 04:24 Acetaminophen 325 Mg Tablet PO 650 mg Q6H PRN PRN Administration Pain 1-10 or Fever Pantoprazole Sodium 80 mg/ 100 mls @ 10 mls/hr 10/28/24 03:00 10/30/24 10:52 Sodium Chloride CONT INF 0 mls/hr Q10H ULICES Infusion Sodium Chloride 1,000 mls @ 125 mls/hr 10/28/24 08:01 10/30/24 10:52 IV 0 mls/hr .Q8H ULICES Infusion Thiamine HCl 500 mg/ Sodium 105 mls @ 200 mls/hr 10/28/24 14:00 10/30/24 06:01 Chloride IV 11/02/24 06:33 Infused Q8 ULICES Infusion Folic Acid 1 mg/ Sodium 50.2 mls @ 200 mls/hr 10/28/24 10:00 10/30/24 12:27 Chloride IV Infused DAILY ULICES Infusion Lactated Ringer's 1,000 mls @ 15 mls/hr 10/28/24 14:45 10/30/24 12:29 IV 15 mls/hr .Q48H ULICES Administration Sodium Chloride 250 mls @ 15 mls/hr 10/28/24 16:22 IV .[id number] PRN Saline Flush Sodium Chloride 250 mls @ 15 mls/hr 10/28/24 16:22 IV .[id number] PRN Additional IVPB Infusion Ondansetron HCl 4 mg 10/28/24 08:01 Ondansetron 4 Mg/2 Ml Vial IV Q8H PRN PRN NAUSEA/VOMITING Prochlorperazine Edisylate 5 mg 10/28/24 08:01 Prochlorperazine 10 Mg/2 Ml Vial IV Q4H PRN PRN Breakthrough Nausea/Vomiting Sodium Chloride 10 - 40 ml 10/28/24 16:22 10/29/24 21:06 0.9% Saline Lock 10 Ml Syringe IV 10 ml UD PRN Administration SALINE FLUSH PFSH Medical History Cholelithiasis Anemia Migraines Difficulty walking Urge incontinence Acute cystitis with hematuria Muscle weakness Osteoarthritis Alcoholic hepatitis Alcoholic liver disease Acute respiratory failure with hypoxia Metabolic encephalopathy Major depression Protein calorie malnutrition Acute post-hemorrhagic anemia Dysphagia, oropharyngeal phase Malignant neoplasm of colon Ulcer Restless legs Injury of head and neck Anemia Alcohol abuse Bipolar disorder Hypothyroidism Osteoporosis Kidney stones GERD (gastroesophageal reflux disease) GI bleed Former smoker Home Medications ?Medication ?Instructions ?Recorded ?Last Taken ?Type ipratropium 0.5 mg-albuterol 3 mg 3 ml inhalation Q4H PRN shortness 07/23/24 Unknown History (2.5 mg base)/3 mL nebulization of breath soln magnesium glycinate 100 mg (as 100 mg PO BID 07/23/24 Unknown History glycinate) tablet (Mag Glycinate) magnesium oxide 400 mg PO QDAY 07/23/24 Unkn own History pantoprazole 40 mg tablet,delayed 40 mg PO BID GERD 30 days #60 tabs 08/29/24 Unknown Rx release Allergy/AdvReac Type Severity Reaction Status Date / Time amoxicillin Allergy Intermediate Swelling, Verified 10/28/24 02:18 itching Family History Mother Alcohol abuse CAD (coronary artery disease) Heart disease Hypertension Myocardial infarction Father Alcohol abuse Cancer Surgical History History of total knee arthroplasty History of right hip replacement H/O total hysterectomy Social History household members: none Smoking Status: Never smoker alcohol intake: current alcohol intake frequency: 3 or more drinks per day details: Notes binge drinking, whiskey. substance use type: other details: Former cannabis usage. Stopped ~ 40 years ago. Review of Systems (Anesthesia) ROS Narrative System reviewed and no additional complaints, except as documented. Physical Exam Const alert, oriented x3 and average body habitus Resp normal respiratory effort, normal air movement and clear to auscultation bilaterally Cardio regular rate, regular rhythm, no murmurs and diaphoretic
--- NOTE | 2024-10-30 13:02 | OP.EGD_ITS ---
Patient Name: Kenyatta Carrillo Procedure Date: 10/30/2024 12:28 PM Date of : 1960 Age: 64 Procedure: Upper GI endoscopy Indications: Epigastric abdominal pain, Hematemesis Providers: Troy Self DO Medicines: Monitored Anesthesia Care Patient Profile: This is a 64 year old female. Refer to note in patient chart for documentation of history and physical. Patient has symptoms of acute vomiting. Complications: No immediate complications. Procedure: Pre-Anesthesia Assessment: - Prior to the procedure, a History and Physical was performed, and patient medications and allergies were reviewed. The patient is competent. The risks and benefits of the procedure and the sedation options and risks were discussed with the patient. All questions were answered and informed consent was obtained. Patient identification and proposed procedure were verified by the physician in the pre-procedure area. Mental Status Examination: alert and oriented. Airway Examination: normal oropharyngeal airway and neck mobility. Respiratory Examination: clear to auscultation. CV Examination: normal. Prophylactic Antibiotics: The patient does not require prophylactic antibiotics. Prior Anticoagulants: The patient has taken no anticoagulant or antiplatelet agents except for NSAID medication. ASA Grade Assessment: II - A patient with mild systemic disease. After reviewing the risks and benefits, the patient was deemed in satisfactory condition to undergo the procedure. The anesthesia plan was to use monitored anesthesia care (MAC). Immediately prior to administration of medications, the patient was re-assessed for adequacy to receive sedatives. The heart rate, respiratory rate, oxygen saturations, blood pressure, adequacy of pulmonary ventilation, and response to care were monitored throughout the procedure. The physical status of the patient was re-assessed after the procedure. After obtaining informed consent, the endoscope was passed under direct vision. Throughout the procedure, the patient's blood pressure, pulse, and oxygen saturations were monitored continuously. The Endoscope was introduced through the mouth, and advanced to the fourth part of the duodenum. Small bowel enteroscopy was deemed necessary. The upper GI endoscopy was accomplished without difficulty. The patient tolerated the procedure well. Scope In: 12:44:57 PM Scope Out: 12:49:58 PM Total Procedure Duration Time 0 hours 5 minutes 1 second Findings: LA Grade D (one or more mucosal breaks involving at least 75% of esophageal circumference) esophagitis with bleeding was found in the mid esophagus. Coagulation for hemostasis using heater probe was successful. No gross lesions were noted in the entire examined stomach. No gross lesions were noted in the entire examined duodenum. Impression: - LA Grade D erosive esophagitis with bleeding. Treated with a heater probe. - No gross lesions in the entire stomach. - No gross lesions in the entire examined duodenum. - No specimens collected. Recommendation: - [facility]. - Full liquid diet. - Continue present medications. Procedure Code(s): --- Professional --- 13413, Small intestinal endoscopy, enteroscopy beyond second portion of duodenum, not including ileum; with control of bleeding (eg, injection, bipolar cautery, unipolar cautery, laser, heater probe, stapler, plasma box builder) CPT copyright 2021 [employer]. All rights reserved. The codes documented in this report are preliminary and upon faculty administrator review may be revised to meet current compliance requirements. Troy Self DO 10/30/2024 1:01:06 PM This report has been signed electronically. Number of Addenda: 0 Note Initiated On: 10/30/2024 12:28 PM
--- NOTE | 2024-10-30 13:02 | OP.CCLET_ITS ---
10/30/2024 No Primary Care Physician Re : Upper GI endoscopy procedure for Kenyatta Carrillo Dear Care Physician This procedure was performed on October. My impressions and recommendations are as follows: Impressions : - LA Grade D erosive esophagitis with bleeding. Treated with a heater probe. - No gross lesions in the entire stomach. - No gross lesions in the entire examined duodenum. - No specimens collected. Recommendations : - [facility]. - Full liquid diet. - Continue present medications. My findings are described in the full procedure note, which is enclosed. If I can be of further assistance, please feel free to contact me at . Sincerely, Troy Self, 10/30/2024 1:01:06 PM This report has been signed electronically.
--- NOTE | 2024-10-30 13:09 | PCM.POST.ANE ---
Anesthesia: Postop Eval I Current Vital Signs Temperature: 97.1 F Pulse Rate: 89 Blood Pressure: 130/80 Respiratory Rate: 16 Pulse Ox: 98 Oxygen Delivery Method: Room Air Assessment Airway patent: Yes Spontaneous unlabored respirations: Yes Mental status: Awake and Calm nausea: No Vomiting: No Anesthesia Complication: No Fluid Hydration Crystalloid volume administer (ml): 300 Total IV fluid infused: 300 Progress Note Anesthesia document: Postop Eval 1 completed: Yes
--- NOTE | 2024-10-30 13:32 | PCM.POSTANE2 ---
Anesthesia Postop Eval I Sum Postop Eval Completion status Anesthesia document: Postop Eval 1 completed: Yes Anesthesia Postop Eval I Summary Anesthesia Postop Eval I Summary: Anesthesia Postop Eval I: Assessment Summary Airway patent Yes 10/30/24 13:10 [email or web address] Spontaneous unlabored Yes 10/30/24 13:10 [email or web address] respirations Mental status Awake,Calm 10/30/24 13:10 [email or web address] nausea No 10/30/24 13:10 [email or web address] Vomiting No 10/30/24 13:10 [email or web address] Anesthesia Postop Eval I: Fluid Summary Crystalloid volume administer 300 10/30/24 13:10 [email or web address] (ml) Colloids volume administered ( ml) Blood Product volume administered (ml) Total IV fluid infused 300 10/30/24 13:10 [email or web address] Anesthesia Postop Eval I: Summary Notes Anesthesia Complication No 10/30/24 13:10 [email or web address] Anesthesia Complication Comment: Post-operative progress note Anesthesia: Postop Eval II Evaluation Mental status: Awake Pain Level: 0 nausea: No Vomiting: No Complications Anesthesia Complication: No
--- NOTE | 2024-10-30 13:48 | CASEMGMT ---
Social Work Updated patient that has been accepted to [facility], and next steps are getting insurance prcert. Patient thanked director of social services for the update. Plan: [facility] on a convalescent stay, skilled level of care - pending insurance precert. -CELINE Nash
[2024-10-31] MEDS: Pantoprazole Sodium 80 MG in 0.9% Normal Saline (100mL Bag) 80 ML 10 MG CONT INF (02:49)
[2024-10-31 04:00] VITALS: BP 125/75; PULSE 89; RESP 18; TEMP 36.9; O2SAT 96
[2024-10-31] MEDS: Thiamine Hydrochloride 500 MG in 0.9% Normal Saline (100mL Bag) 100 ML 200 MG IV (06:05)
[2024-10-31 06:06] VITALS: BP 118/81; PULSE 90; RESP 16; TEMP 36.7; O2SAT 100
[2024-10-31 06:58] LABS: Absolute Lymphocyte Count 1.48 X10^3/uL (0.83-4.51); Absolute Neutrophil Count 2.3 X10^3/uL (2.0-7.7); Basophil# 0.01 X10^3/uL; Basophil% 0.2 % (0-1); Eosinophils% 2.4 % (0-5); Hematocrit 30.6 % (37-47); Hemoglobin 9.7 g/dL (12.0-15.0); Lymphocyte # 1.48 X10^3/ul (0.83-4.51); Lymphocyte % 35.6 % (19-41); Mean Corp Hgb Conc 31.7 g/dL (32-36); Mean Corpuscular Hgb 28.9 pg (27.0-32.0); Mean Corpuscular Volume 91.1 fL (81-99); Mean Platelet Vol. 9.4 fl (6.2-12.0); Monocyte# 0.26 X10^3/uL; Monocyte% 6.3 % (0-10); NRBC Flagged by Analyzer 0 % (0-5); Neutrophil % 55.3 % (47-70); POSITIVE MORPHOLOGY YES; Platelet Count 143 K/mm3 (150-450); Red Blood Count 3.36 M/mm3 (4.2-5.4); White Blood Count 4.2 K/mm3 (4.4-11.0)
[2024-10-31 07:01] LABS: Differential Indicated SCAN CRITERIA MET
[2024-10-31 07:25] LABS: Anion Gap 10 (5-15); BUN 5 mg/dL (4-19); Calcium,Total 7.8 mg/dL (7.6-11.0); Carbon Dioxide 23.7 mmol/L (21.0-32.0); Chloride 102 mmol/L (98-108); Creatinine, Serum 0.55 mg/dL (0.70-1.20); EST Glomerular Filtration Rate 101 (>60); Estimated Creatinine Clearance 77.31 ml/min (50-250); Glucose 93 mg/dL (70-99); Magnesium 1.2 mg/dL (1.5-2.2); Potassium 3.9 mmol/L (3.3-5.1); Sodium Level 135 mmol/L (133-145)
[2024-10-31 07:27] LABS: Anisocytosis 1+
[2024-10-31 09:10] VITALS: BP 119/76; PULSE 90; RESP 16; TEMP 37.1; O2SAT 100
[2024-10-31] MEDS: Pantoprazole Sodium 40 MG Tablet PO (09:11)
[2024-10-31] MEDS: Magnesium Sulfate 4gm/100mL 4 GM/100 ML IV.SOLN. IV (09:11)
--- NOTE | 2024-10-31 10:51 | TREXTCAR_ITS ---
Diet Diet Order/Speech Therapy: INPATIENT Hospital Diet / Speech Therapy Order(s) 10/31/24 09:11 Diet: Regular - General Food consistency:: Regular Liquid Consistency:: Regular/Thin Type of Dietary Supplement:: [place] Breakfast Diet Comments: 240ml chocolate carnatoin breakfast with breakfast and dinner Routine Orders/Code Status Code Status: Full Code DC O2, CPAP, BIPAP needs Home O2 Discharge instructions: No Wound(s) R plantar foot: Wound Type: Abrasion Problem/Diagnosis (1) Anemia: Status: Inactive Code(s): D64.9 - Anemia, unspecified (2) Alcoholic hepatitis: Status: Inactive Code(s): K70.10 - Alcoholic hepatitis without ascites (3) Cholelithiasis: Status: Inactive Code(s): K80.20 - Calculus of gallbladder without cholecystitis without obstruction (4) Dilated pancreatic duct: Status: Inactive Code(s): K86.89 - Other specified diseases of pancreas Plan Final diagnosis: #1 acute upper GI hemorrhage secondary to esophagit #2 esophagitis with acute upper GI hemorrhage #3 hypomagnesemia #4 hypokalemia #5 acute debility secondary to deconditioning Allergies/Procedures Done in Hospital Allergies amoxicillin Allergy (Intermediate, Verified 10/28/24 02:18) Swelling, itching Procedures: EGD Type of Care/Length of Stay Estimated LOS: Convalescent Care Less Than 30 days Type of Care Needed: Skilled Rehab Potential: Good Prognosis: Good Additional Orders/Day of Discharge H&P will serve as current which was dated: 10/28/24 Day of Discharge: 10/31/24 Dietary and Speech Recommendations Dietitian Recommendations/Changes: Continue regular diet. Will order 240ml chocolate CIB with breakfast and dinner. Will monitor weight trends. Discharge Plan Admission Admit Date/Time: 10/28/24 06:26 Primary Reason for Your Visit: Upper GI bleed Attending Provider: Jesus Oconnell Primary Care Provider: Care Physician,No Primary Consulting Providers: Yeison Reid; Tyrone Roach Discharge Orders/Prescriptions Prescriptions: New folic acid 1 mg Tablet 1 mg PO BREAKFAST Qty: 0 0RF thiamine HCl (vitamin B1) 100 mg tablet 100 mg PO DAILY Qty: 1 0RF Continued ipratropium-albuterol 0.5 mg-3 mg(2.5 mg base)/3 mL solution for nebulization 3 ml inhalation Q4H PRN (Reason: shortness of breath) Mag Glycinate 100 mg tablet 100 mg PO BID magnesium oxide 400 mg magnesium tablet 400 mg PO QDAY pantoprazole 40 mg tablet,delayed release (DR/EC) 40 mg PO BID 30 Days Qty: 60 2RF Referrals / Follow Up: Care Physician,No Primary [Primary Care Provider] - Disposition Disposition (needs filled in before D/C Order can be placed): [facility] ([facility] Anemia Qualifiers: Anemia type: iron deficiency Iron deficiency anemia type: chronic blood loss Qualified Code(s): D50.0 - Iron deficiency anemia secondary to blood loss (chronic)
[2024-10-31] MEDS: Folic Acid 1 MG Tablet PO (10:52)
--- NOTE | 2024-10-31 11:41 | DS.PCM_ITS ---
Providers Date of Admission: 10/28/24 Date of Discharge: 10/31/24 Primary Care Physician: No Primary Care Phys Consultations 10/28/24 08:01 Consult: Gastroenterology Routine Consulting Provider: Davi Gastroenteryunior Reason for Consult: Upper GI bleed EMERGENT Consult: Yes MD Notified: Yes Date Notified: 10/28/24 Time Notified: 06:29 Method of Notification: ED Physician Initiated Reason For Visit: GI BLEED Diagnosis Discharge Diagnosis (1) Anemia: Status: Inactive Code(s): D64.9 - Anemia, unspecified Qualifiers: Anemia type: iron deficiency Iron deficiency anemia type: chronic blood loss Qualified Code(s): D50.0 - Iron deficiency anemia secondary to blood loss (chronic) (2) Alcoholic hepatitis: Status: Inactive Code(s): K70.10 - Alcoholic hepatitis without ascites (3) Cholelithiasis: Status: Inactive Code(s): K80.20 - Calculus of gallbladder without cholecystitis without obstruction (4) Dilated pancreatic duct: Status: Inactive Code(s): K86.89 - Other specified diseases of pancreas Plan Final diagnosis: #1 acute upper GI hemorrhage secondary to esophagit #2 esophagitis with acute upper GI hemorrhage #3 hypomagnesemia #4 hypokalemia #5 acute debility secondary to deconditioning Medications at Discharge Home Medications ipratropium 0.5 mg-albuterol 3 mg (2.5 mg base)/3 mL nebulization soln 3 ml inhalation Q4H PRN shortness of breath 07/23/24 magnesium glycinate 100 mg (as glycinate) tablet (Mag Glycinate) 100 mg PO BID 07/23/24 magnesium oxide 400 mg PO QDAY 07/23/24 pantoprazole 40 mg tablet,delayed release 40 mg PO BID GERD 30 days #60 tabs 08/29/24 folic acid 1 mg tablet 1 mg PO BREAKFAST #0 tabs 10/31/24 thiamine HCl (vitamin B1) 100 mg tablet 100 mg PO DAILY #1 TAB 10/31/24 Hospital Course Operations None Procedures EGD Summary of Care Provided Minutes Spent on Discharge: 31 Hospital Course: This 64-year-old white female was seen in the emergency room at [facility] with chief complaint of nausea and vomiting, she noticed that there was large blood clots in her emesis. Patient has a past history of alcohol use disorder and liver disease and had a previous EGD performed in the past. Initial lab studies showed a lactate of 16, magnesium 1.7 and potassium of 2. Blood alcohol level was elevated but the patient was not intoxicated. CTA of the abdomen and pelvis showed gastritis and multifocal thickening of the colon more prominent in the sigmoid colon, there was also noted to be esophagitis, there was no CT evidence of active bleeding. Patient was admitted to PCU, her initial hemoglobin was 13.3, follow-up hemoglobin the next day was 10.1. Patient was kept on a PPI and seen in consultation by gastroenterology who performed an EGD which showed erosive esophagitis with bleeding, this was treated with a heater probe. Patient was seen by PT and OT and due to generalized debility, it was recommended that she go to a skilled facility for short-term rehab services and the patient consented to this. On 10/31/2024, patient was seen and examined: On examination she appeared in good health and spirits, she does not appear to be in any distress. Vital signs as documented. Skin warm and dry and without overt rashes. Neck without JVD, thyroid appears normal, trachea is midline, neck is supple. Lungs clear, normal air movement was noted. Heart exam notable for regular rhythm, normal sounds and absence of murmurs, rubs or gallops. Abdomen unremarkable and without evidence of organomegaly, masses, or abdominal aortic enlargement, bowel sounds are present in all 4 quadrants, no abdominal tenderness was noted. Extremities nonedematous, no cyanosis was noted, no clubbing was noted. Neuro: Cranial nerves II through XII are grossly intact, no focal motor deficits were noted, sensation to light touch and pinprick is intact, motor exam 5/5 throughout. Psych: Patient is alert and oriented x3, she does not appear anxious or depressed, she does not appear agitated. Patient was discharged to [facility] for inpatient skilled care on 10/31/2024 in stable condition Medical Records Data Medical Nutrition Assessment Dietitian: Malnutrition Criteria Met Start: 10/28/24 11:41 Freq: Status: Active Protocol: Document 10/29/24 15:17 SB (Rec: 10/29/24 15:17 SB [id number]) Nutrition Malnutrition Evidence of Yes Malnutrition Exists Malnutrition (severe Acute Illness/Injury ): Evidenced By Suboptimal Energy Intake (Severe),Weight Loss (Severe) Clinical Problem Acute Disease or Injury Related Malnutrition Etiology severe related to inadequate oral intake and likely due to alcohol abuse Signs/Symptoms as evidenced by PO meeting <50% of estimated nutrition needs x 2-3 days and 8% unintentional weight loss x 2 months Status Active Problem Recommendation Dietitian Recommend advanced diet as tolerated to liberal regular Recommendations/ due to signs and symptoms of malnutrition. Changes Recommend 120ml EPHP TID with medpass, as diet is advanced. Will monitor weight trends. Weight / BMI Weight Weight: 82.4 kg Body Mass Index (BMI) 25.3 ABG / Lab / Microbiology Data 10/31/24 06:29 10/31/24 06:29 Laboratory: Laboratory Results - last 24 hr 10/31/24 06:29: WBC 4.2 L, RBC 3.36 L, Hgb 9.7 L, Hct 30.6 L, MCV 91.1, MCH 28.9, MCHC 31.7 L, RDW Std Deviation 67.0 H, RDW Coeff of Angelo 20.0 H, Plt Count 143 L, MPV 9.4, Immature Gran % (Auto) 0.200, Neut % (Auto) 55.3, Lymph % (Auto) 35.6, [place] % (Auto) 6.3, Eos % (Auto) 2.4, Baso % (Auto) 0.2, Absolute Neuts (auto) 2.3, Absolute Lymphs (auto) 1.48, Nucleated RBC % 0, Anisocytosis 1+, Sodium 135, Potassium 3.9, Chloride 102, Carbon Dioxide 23.7, Anion Gap 10, BUN 5, Creatinine 0.55 L, Estim Creat Clear Calc 77.31, Est GFR (MDRD) Non-Af 101, B UN/Creatinine Ratio 9.0 L, Glucose 93, Calcium 7.8, Phosphorus 3.0, Magnesium 1.2 L Microbiology: Microbiology 10/28/24 03:54 Stool Stool Occult Blood (NOAH) - Final Occult Blood Positive D/C Instructions DC O2, CPAP, BIPAP Needs Home O2 Discharge instructions: No Meaningful Use Info Meaningful Use Meaningful Use Diagnoses (Choose all that apply): None applicable Ischemic Stroke Statin Dosing Therapy Reference: STATIN DOSE THERAPY REFERENCE: * Patients > 75 years receive moderate or high dose statin therapy. * Patients 75 years or YOUNGER should receive HIGH intensity statin dose unless contraindicated. You will be required to document reason for non-treatment if statin daily dose does not meet guidelines. HIGH DOSE STATIN THERAPY DAILY Atorvastatin > than or = to 40 mg Rosuvastatin > than or = to 20 mg Amlodipine + Atorvastatin > than or = to 2.5/40 mg Ezetimibe + Simvastatin 10/80 mg Simvastatin 80mg Discharge Plan Admission Admit Date/Time: 10/28/24 06:26 Primary Reason for Your Visit: Upper GI bleed Attending Provider: Jesus Oconnell Primary Care Provider: Care Physician,No Primary Consulting Providers: Yeison Reid; Tyrone Roach Discharge Orders/Prescriptions Prescriptions: New folic acid 1 mg Tablet 1 mg PO BREAKFAST Qty: 0 0RF thiamine HCl (vitamin B1) 100 mg tablet 100 mg PO DAILY Qty: 1 0RF Continued ipratropium-albuterol 0.5 mg-3 mg(2.5 mg base)/3 mL solution for nebulization 3 ml inhalation Q4H PRN (Reason: shortness of breath) Mag Glycinate 100 mg tablet 100 mg PO BID magnesium oxide 400 mg magnesium tablet 400 mg PO QDAY pantoprazole 40 mg tablet,delayed release (DR/EC) 40 mg PO BID 30 Days Qty: 60 2RF Referrals / Follow Up: Care Physician,No Primary [Primary Care Provider] - Disposition Disposition (needs filled in before D/C Order can be placed): [facility] Facility Charges/Coding Visit Charges Inpatient E&M: 48656 Disch Hosp >30min
--- NOTE | 2024-10-31 13:43 | CASEMGMT ---
NELI completed a 7000 in [employer] system. Kyleigh at [facility] said it is okay to send patient. Should patient get denied skilled she could be there intermediate level of care. Plan: d/c to [facility] under skilled level of care on a convalescent stay. Physicians will transport patient via wheelchair van. Zulema Becerril CAMPUS DIRECTOR MEGHA
--- NOTE | 2024-10-31 13:56 | CASEMGMT ---
Discharge Planning Discharge orders, signed med list, and transport time sent to [facility]. Physicians will transport pt by wheelchair at 3p. Nursing, SW, and pt updated. Pt states she will updated family/friends. Heike Casarez DC Planning Asst.
[2024-10-31] MEDS: Acetaminophen 325 MG Tablet 650 MG PO (14:13)
--- NOTE | 2024-10-31 14:43 | NURSING ---
Report called to Lorenzo Topete to [facility], all questions answered at this time.
[2024-10-31 15:10] VITALS: BP 118/76; PULSE 89; RESP 16; TEMP 36.8; O2SAT 98
--- NOTE | 2024-10-31 15:30 | CASEMGMT ---
NELI notified [facility] that it would be beneficial if their mental health services saw patient. Patient is not on any mental health meds, yet has a diagnosis of bipolar. NELI also suggested the SW see patient in regards to her drinking and calling the squad regularly and living in terrible conditions. NELI called Mauricio with [facility] and left her a voice mail letting her know patient is being discharged to [facility] today. Zulema [place]
== END 2024-10-31 15:47 | disposition skilled nursing facility (03) | DRG 368 ==
LOC: ED 06:13 → PCU 07:06
PROVIDERS: Anesthesiology; Family Medicine; Internal Medicine Gastroenterology; Admitting Provider Family Medicine; Emergency Provider Emergency Medicine
PROC: 0DJ08ZZ Inspection of Upper Intestinal Tract, Via Natural or Artificial Opening Endoscopic (ICD-10-PCS; CPT 43235; principal; 2024-10-30 12:40)
DX: K20.81 Other esophagitis with bleeding (principal); E43 Unspecified severe protein-calorie malnutrition; K86.0 Alcohol-induced chronic pancreatitis; K92.2 Gastrointestinal hemorrhage, unspecified; K86.81 Exocrine pancreatic insufficiency; D50.0 Iron deficiency anemia secondary to blood loss (chronic); E03.9 Hypothyroidism, unspecified; F10.129 Alcohol abuse with intoxication, unspecified; F31.9 Bipolar disorder, unspecified; K70.10 Alcoholic hepatitis without ascites; E83.42 Hypomagnesemia; E87.6 Hypokalemia; K80.20 Calculus of gallbladder without cholecystitis without obstruction; K86.89 Other specified diseases of pancreas; Z87.891 Personal history of nicotine dependence; Z90.710 Acquired absence of both cervix and uterus; Z68.25 Body mass index [BMI] 25.0-25.9, adult; Y90.1 Blood alcohol level of 20-39 mg/100 ml; Z75.1 Person awaiting admission to adequate facility elsewhere
CPT/HCPCS: 36415; 71045; 74174; 80048; 80053; 80076; 80307; 82077; 82248; 82274; 82803; 83605; 83690; 83735; 84100; 85025; 85610; 85730; 86850; 86900; 86901; 93005; 97162; 97166; 97530; 97535; 99285; C1889; Q9967; A4216; J2405

== ENCOUNTER → 2025-02-18 | Outpatient (CLI) | payer MEDICARE, MEDICAID, SELFPAY ==
[2025-02-18 15:55] LABS: CRP 5.98 mg/L (0.0-3.0)
== END | disposition home or self-care (01) ==
LOC: MTLAB 11:24
PROVIDERS: PCP Internal Medicine Geriatric Medicine; Referring Provider Specialist; Visit Provider Specialist
DX: Z01.812 Encounter for preprocedural laboratory examination (principal); M87.152 Osteonecrosis due to drugs, left femur; M25.552 Pain in left hip
CPT/HCPCS: 36415; 85652; 86140

== ENCOUNTER 2025-02-20 08:00 | Day surgery (SDC) | payer MEDICARE, MEDICAID, SELFPAY ==
[2025-02-20] MEDS: Lidocaine Jelly 2% 20 ML Syringe (URO-JET) 1 APPLIC (08:10)
[2025-02-20 08:55] VITALS: BP 120/83; PULSE 77; TEMP 36.7; O2SAT 94
== END 2025-02-20 08:52 | disposition home or self-care (01) ==
PROVIDERS: PCP Internal Medicine Geriatric Medicine; Referring Provider Internal Medicine Geriatric Medicine; Visit Provider Internal Medicine Gastroenterology
PROC: F00ZJWZ Instrumental Swallowing and Oral Function Assessment using Swallowing Equipment (ICD-10-PCS; CPT 43235; principal; 2025-02-20 07:55)
DX: K22.89 Other specified disease of esophagus (principal); K31.89 Other diseases of stomach and duodenum
CPT/HCPCS: 91010

== ENCOUNTER → 2025-02-24 05:00 | Outpatient (REF) | payer MEDICARE, SELFPAY ==
[2025-02-24 09:30] LABS: Hematocrit 39.2 % (37-47); Hemoglobin 12.9 g/dL (12.0-15.0); Mean Corp Hgb Conc 32.9 g/dL (32-36); Mean Corpuscular Volume 88.1 fL (81-99); Mean Platelet Vol. 9.8 fl (6.2-12.0); Platelet Count 181 K/mm3 (150-450); RBC Distribution Width CV 14.1 % (11.6-14.6); RBC Distribution Width SD 45.4 fl (35.1-43.9); Red Blood Count 4.45 M/mm3 (4.2-5.4); White Blood Count 4.6 K/mm3 (4.4-11.0)
[2025-02-24 09:44] LABS: Anion Gap 11 (5-15); BUN 13 mg/dL (4-19); BUN/Creat Ratio 18.4 RATIO (10-20); Calcium,Total 9.7 mg/dL (7.6-11.0); Carbon Dioxide 22.3 mmol/L (21.0-32.0); Chloride 103 mmol/L (98-108); Glucose 109 mg/dL (70-99); Potassium 4.2 mmol/L (3.3-5.1)
== END ==
LOC: OLS.SW 05:00
PROVIDERS: PCP Internal Medicine Geriatric Medicine; Visit Provider Family Medicine
DX: Z02.2 Encounter for examination for admission to residential institution (principal)
CPT/HCPCS: 36415; 80048; 85027

== ENCOUNTER → 2025-03-12 | Outpatient (CLI) | payer MEDICARE, MEDICAID, SELFPAY ==
--- NOTE | 2025-03-12 09:48 | CT_ITS ---
PROCEDURE: CT/Extremity Lower without Contra
== END | disposition home or self-care (01) ==
LOC: CT 09:46
DX: S72.142D Displaced intertrochanteric fracture of left femur, subsequent encounter for closed fracture with routine healing (principal)
CPT/HCPCS: 73700

== ENCOUNTER → 2025-04-17 | Outpatient (CLI) | payer MEDICARE, MEDICAID, SELFPAY ==
--- NOTE | 2025-04-17 14:16 | ST.MBS ---
Modified Barium Swallow Patient Information Study Date: 04/17/25 Study Time: 13:00 Direct Billable Minutes: 60 Total Minutes procedure & reportin Diagnosis: K22.0 Achalasia Referring Physician: Troy Self Medical History: The patient presented for an MBSS due to increased difficulty swallowing, daily choking, and gagging episodes. She states that her swallowing difficulty began approximately 20 years ago. She reports that she sometimes puts her fingers down her throat when experiencing a sensation described as a globus sensation. She also reports recent PNAs. She has an extensive GI history, including an EGD on 10/30/24 showing LA Grade D erosive esophagitis with bleeding, treated with a heater probe, with no gross gastric or duodenal lesions. At her 01/26/25 visit, she reported worsening dysphagia with near-daily choking episodes but denied other GI symptoms. She also has chronic alcohol-related liver disease and chronic pancreatitis. A CT abdomen on 10/28/24 demonstrated hepatic steatosis with granulomas, splenic granulomas, a distended gallbladder with cholelithiasis, and an atrophic pancreas with ductal dilation and possible intraductal calculus, overall consistent with chronic pancreatitis. A prior gallbladder ultrasound on 08/28/24 showed hepatomegaly, steatosis, and cholelithiasis without cholecystitis, with nondilated bile ducts. She was previously diagnosed with chronic alcoholic hepatitis and prescribed naltrexone/Vivitrol for management, with recommendations for alcohol rehabilitation follow-up; however, labs previously ordered were not completed, and she missed her 08/29/24 appointment. She also has a history of GI bleeding with associated mild pancytopenia. Her labs showed INR 1.4, previously low magnesium corrected on 10/31, and LFTs including AST 35, ALT 10, ALP 187, and total bilirubin 1.15. An earlier EGD on 10/03/24 confirmed severe LA Grade D erosive esophagitis with bleeding, a medium hiatal hernia, and a normal duodenum. She continues on pantoprazole, magnesium oxide, folic acid, ferrous sulfate, and thiamine, though she had only been taking pantoprazole once daily instead of twice daily as recommended. Regarding her dysphagia workup, esophageal manometry performed on 02/20/25 demonstrated type III spastic achalasia, and Botox injection to the UES was recommended but not completed. An EGD with dilation was scheduled for 03/13/25 but did not occur due to the patient?s hospitalization. Current Diet Ordered: MECH SOFT/ THIN AT [facility] Dentition: Edentulous Respiratory Status: Oxygenating on Room Air Penetration-Aspiration Scale Penetration-Aspiration Scale: OBJECTIVE ASSESSMENT OF SWALLOW FUNCTION (QUANTITATIVE ? PER TRIAL): PENETRATION / ASPIRATION SCALE (BARBOSA): 1 = does not enter airway 2 = enters airway/above vocal folds/ejected 3 = enters airway/above vocal folds/not ejected 4 = enters airway/contacts vocal folds/ejected 5 = enters airway/contacts vocal folds/not ejected 6 = enters airway/below vocal folds/ejected 7 = enters airway/below vocal folds/not ejected despite effort 8 = enters airway/below vocal folds/no effort VIDEOFLOROSCOPIC SCALE SCORE (BARBOSA): Grade I = aspiration of material that has penetrated into the laryngeal vestibule, intact cough reflex Grade II = aspiration < 10 % of the bolus, intact cough reflex Grade III = aspiration of < 10 % of the bolus, reduced cough reflex or aspiration of > 10 % of the bolus, intact cough reflex Grade IV = aspiration of > 10 % of the bolus, reduced cough reflex Penetration-Aspiration Scale Score Thin Liquid via teaspoon: Result: 1= does not enter airway Thin Liquid via small single sip: cup: Result: 2= enter airway/above vocal folds/ejected Thin Liquid via small single sip: cup Trial 2: Result: 2= enter airway/above vocal folds/ejected Thin Liquid via sequential sips: cup: Result: 2= enter airway/above vocal folds/ejected Pudding: Result: 1= does not enter airway Cookie: Result: 1= does not enter airway Thin Liquid via small single sip: cup Trial 3: Result: 2= enter airway/above vocal folds/ejected Doon Thick Liquid via small single sip: cup: Result: 1= does not enter airway Oral Phase Labial Seal: No Labial Escape Tongue Control During Bolus Hold: Cohesive bolus between tongue to palatal seal Bolus Preparation/Mastication: Slow prolonged chewing/mashing with complete recollection Bolus Transport/Lingual Motion: Delayed initiation of tongue motion Oral Residue: Trace residue lining oral structures Pharyngeal Phase Initiation of Pharyngeal Swallow: Bolus head in pyriforms Soft Palate Elevation: No bolus between soft palate and pharyngeal wall Laryngeal Elevation: Partial superior movement thyroid cart/partial apprx aryt-epig petiole Anterior Hyoid Excursion: Complete anterior movement Epiglottic Movement: Partial inversion Laryngeal Vestibule Closure at Height of Swallow: Incomplete; narrow column of air/contrast in laryngeal vestibule Pharyngeal Stripping Wave: Present - diminished Pharyngoesophageal Segment Opening: Parital distension and partial duration; parital obstruction of flow Tongue Base Retraction: Trace column of contrast between tongue base & post. pharyngeal wall Pharyngeal Residue: Collection of residue within or on pharyngeal structures Esophageal Phase Esophageal Clearance: Esophageal retention w/ retrograde flow below pharyngoesophageal seg. Diagnosis/Impression Diagnosis: R13.14 pharyngoesophageal dysphagia .: Oral Phase: Grossly within normal limits; patient demonstrates good bolus hold. Patient is edentulous and does not wear dentures. Mastication is slowed, with some unchewed cookie noted, likely due to current dentition. Recommendations include continuing mechanically soft textures given the absence of dentures. Pharyngeal Phase: Consistent laryngeal penetration observed due to delayed pharyngeal swallow onset. Bolus was noted in the vallecula and/or pyriform sinuses at the time of swallow onset, with incomplete laryngeal elevation/closure, placing the patient at risk for aspiration. No aspiration was observed during the MBSS. On the first thin liquid cup trial, residue remained at the level of the UES with retrograde flow to the pyriforms, indicating a high risk for post-prandial aspiration. DATA PROCESSING EQUIPMENT REPAIRER educated the patient on eating smaller, more frequent meals, which she reports following. A prominent cricopharyngeal (CP) bar at the level of C5/C6 is noted, affecting pharyngeal motility and contributing to incomplete UES opening. Patient was informed about the missed EGD on 03/13 and advised to reschedule, as GI intervention for UES dilation is indicated. Recommendations Diet: Minced and Moist Textures and Thin Liquids Compensatory Strategies: Small Bites, Small Sips, Slow Rate, Feed only when alert, Multiple Swallows, Alternate bites/solids and sips/liquids, Sitting upright and Remain sitting upright for 30 minutes after PO intake Recommend Repeat Modified Barium Swallow: No Need for Skilled Speech Therapy Services: Yes Recommended Referrals: GI Consult Education Completed: 1. Described result of evaluation. and 2. Pt understands evaluation & agrees with goals and treatment plan. Status Active ST Patient: Active Contact Information [facility] Speech Therapy:: Terrie Fofana M.A., [facility]3]-DATA PROCESSING EQUIPMENT REPAIRER Speech-Language Pathologist [facility] [phone] FAX [phone] [email or web address] [address] [place] [address] ?[place] [address]
== END | disposition home or self-care (01) ==
LOC: RAD 12:40
PROVIDERS: Referring Provider Internal Medicine Gastroenterology; Visit Provider Internal Medicine Gastroenterology
DX: R13.10 Dysphagia, unspecified (principal)
CPT/HCPCS: 74230; 92611

== ENCOUNTER 2025-05-13 10:53 | Day surgery (SDC) | payer MEDICARE, MEDICAID, SELFPAY ==
--- NOTE | 2025-05-13 10:59 | PCM.PRE.AN2 ---
ASA Classification* ASA Classification ASA Classification: 2 Assessment & Plan Anesthesia* Anesthesia Assessment Anesthesia Assessment: Discussed sedation and/or anesthesia options, risks, benefits, and alternatives with patient/parents/legal guardian/POA. Questions invited. The patient/parents/legal guardian/POA seems to understand and agrees to proceed with anesthesia plan. Reviewed the physical assessment, medical history, allergy history and patient home medications list prior to surgery/procedure/anesthetic and documented any changes. Performed airway and anesthesia risk assessments. Anesthesia Type Anesthesia Type: MAC Anesthesia Focused Assessment* Airway Assessment Mouth opens: >3 cm Mallampati Score: II Labs Anesthesia Preop lab: CBC WBC, (4.4-11.0) 5.7 K/mm3 04/21/25, 07:20 RBC, (4.2-5.4) 3.75 M/mm3 L 04/21/25, 07:20 Hgb, (12.0-15.0) 9.6 g/dL L 04/21/25, 07:20 Hct, (37-47) 30.9 % L 04/21/25, 07:20 Plt Count, (150-450) 216 K/mm3 04/21/25, 07:20 CHEMISTRY Potassium, (3.3-5.1) 3.7 mmol/L 03/31/25, 05:45 Sodium, (133-145) 139 mmol/L 03/31/25, 05:45 Magnesium, (1.5-2.2) 1.6 mg/dL 03/31/25, 05:45 Phosphorus, (2.7-4.5) 3.0 mg/dL 10/31/24, 06:29 BUN, (4-19) 12 mg/dL 03/31/25, 05:45 Creatinine, (0.70-1.20) 0.60 mg/dL L 04/21/25, 07:20 Glucose, (70-99) 118 mg/dL H 03/31/25, 05:45 TSH, (0.300-4.200) 6.550 uIU/mL H 08/28/24, 04:52 COAG PT, (11.7-14.9) 17.0 SECONDS H 10/29/24, 05:46 Pre-Assessment Diagnosis/Proposed Procedure Planned Operative Procedure(s): EGD Anesthesia History 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 When Was Last Pacemaker Check QUESTION #4 FULL TEXT: You/Your Family Experience fever (hyperthermia) with Anesthesia Last Oral Intake Last Oral intake: Last Oral Intake NPO since Meds taken in AM with sips of water? 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 Female HX of Motion Sickness HX of N/V After Surgery Non-Smoker Duration of Surgery greater than 60 minutes Number of Risk Factors PONV Score Height & Weight Height & Weight: Anesthesia: Height & Weight Height 5 ft 11 in 11/21/24 11:28 Respiratory Assessment Respiratory Assessment - clay products machine operator: Respiratory Tract Infection Hx - clay products machine operator Hx Respiratory Tract Infection No 03/12/25 16:09 STOP Sleep Apnea STOP Sleep Apnea - clay products machine operator: STOP Sleep Apnea - clay products machine operator Hx Hypertension No 03/12/25 16:09 Hx Sleep Apnea No 03/12/25 16:09 CPAP BIPAP Do you snore loudly (louder than talking or can be heard Do you often feel tired/ fatigued/ sleepy during daytime? Has anyone observed you stop breathing during sleep? STOP Results QUESTION #5 FULL TEXT : Do you snore loudly (louder than talking or can be heard through closed doors)? 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 Specify any problems Hx of Preganancy in last 3 Months Nurse Filling Out Transfusion & Questions: Date: Time: Patient unable to answer at this time (ie. 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 operator: /Reproductive Hx- clay products machine operator Hx Now Gestational Age (in weeks): EDC: Hx Hx Para Hx Section SAB No 10/30/24 06:00 Does the father of the baby or his family experience fever w Father of the baby Malignant Hypertension history comment [facility] Medical History Hematemesis Erosive esophagitis GI (gastrointestinal bleed) Hypomagnesemia Generalized weakness Dilated pancreatic duct Cholelithiasis Alcoholic hepatitis Anemia Migraines Alcohol intoxication Difficulty walking Urge incontinence Acute cystitis with hematuria Muscle weakness Osteoarthritis Alcoholic hepatitis Alcoholic liver disease Acute respiratory failure with hypoxia Metabolic encephalopathy Major depression Protein calorie malnutrition Acute post-hemorrhagic anemia Dysphagia, oropharyngeal phase Malignant neoplasm of colon Ulcer Restless legs Injury of head and neck Anemia Alcohol abuse Bipolar disorder Hypothyroidism Osteoporosis Kidney stones GERD (gastroesophageal reflux disease) GI bleed Former smoker Hypokalemia Home Medications ?Medication ?Instructions ?Recorded ?Last Taken ?Type ipratropium 0.5 mg-albuterol 3 mg 3 ml inhalation Q4H PRN shortness 07/23/24 Unknown History (2.5 mg base)/3 mL nebulization of breath soln magnesium oxide 400 mg PO QDAY 07/23/24 Unknown History pantoprazole 40 mg tablet,delayed 40 mg PO BID GERD 30 days #60 tabs 08/29/24 Unknown Rx release ferrous sulfate 325 mg (65 mg 325 mg PO QDAY 11/21/24 Unknown History iron) tablet lamotrigine 25 mg tablet 25 mg PO QDAY 11/21/24 Unknown History aspirin 81 mg capsule 81 mg PO DAILY 03/12/25 Unknown History cefdinir 300 mg capsule 300 mg PO BID 03/12/25 Unknown History multivitamin (Daily Multi-Vitamin 1 tab PO DAILY 03/12/25 Unknown History tablet) oxycodone 5 mg capsule 5 mg PO Q4H PRN pain 03/12/25 Unknown History potassium chloride 10 mEq 10 meq PO DAILY 03/12/25 Unknown History capsule,extended release Allergy/AdvReac Type Severity Reaction Status Date / Time amoxicillin Allergy Intermediate Swelling, Verified 03/12/25 16:04 itching Family History Mother Alcohol abuse CAD (coronary artery disease) Heart disease Hypertension Myocardial infarction Father Alcohol abuse Cancer Surgical History H/O total hip arthroplasty History of total knee arthroplasty History of right hip replacement H/O total hysterectomy Social History household members: none Smoking Status: Never smoker alcohol intake: current alcohol intake frequency: 3 or more drinks per day details: Notes binge drinking, whiskey. substance use type: other details: Former cannabis usage. Stopped ~ 40 years ago. Review of Systems (Anesthesia) ROS Narrative System reviewed and no additional complaints, except as documented.
[2025-05-13 11:23] VITALS: BP 127/75; PULSE 95; RESP 16; TEMP 36.6; O2SAT 100; BMI 25.2
[2025-05-13] MEDS: Lactated Ringers 1,000 ML 15 ML IV (11:35)
--- NOTE | 2025-05-13 12:15 | EGD_PTH ---
PATIENT: ROZINA HUERTAS LOC: [facility] U#:[id number] AGE/SX: 64/F ROOM: RE05/13/[address]: Dr. Troy Self DO : 1960 BED: DIS: 05/13/2025 SPEC #: [id number] RECD: 05/14/25 14:42 STATUS: ANDREINA REQ #: [id number] HUSAM: 05/13/25 12:[address]: Troy Self DEPT: SURGICAL PATHOLOGY RECD BY: Javi Bowen ENTERED: 05/15/25 09:20 SP TYPE: EGD BIOPSY ANN DR: Dr. Sudhakar Corral DO Tissues: A - Esophageal mucous membrane Procedures: Immunohistochemical Stains Special Stain Group I Surgery Specimen Level IV GMS Stain (control) HEADER OPERATION: EGD with biopsy, with dilation PRE-OP DIAGNOSIS: Dysphagia TISSUE SUBMITTED: A. Distal esophagus MICROSCOPIC DIAGNOSIS A. Distal esophagus, biopsy: - Squamous mucosa with reactive changes, acute inflammation, and 3 eosinophils per high power field. - Focal inflamed granulation tissue consistent with ulcer. - PASD stain is negative for fungal organisms. - IHC is negative for HSV (herpes simplex virus types I&II). MICROSCOPIC DESCRIPTION Slides are reviewed. All matched controls reacted appropriately. These tests were developed and their performance characteristics determined by [facility]. They may not have been cleared or approved by the U.S. Food and Drug Administration. The FDA has determined that such clearance or approval is not necessary. The above immunohistochemical markers and/or special?stains have been reviewed by the Pathologist. GROSS DESCRIPTION A. Received is one container labeled with the patient name and designated Distal esophagus. The specimen consists of multiple irregular fragments of light whitt soft tissue that in aggregate measure 2 x 0.5 x 0.3 cm. The specimen is totally submitted in one cassette. 05/15/2025 CPT:26940,78996,71344
--- NOTE | 2025-05-13 12:20 | PCM.HP.STD ---
HPI - General General Date of Admission: 05/13/25 Date of Service: 05/13/25 Chief Complaint: Dysphagia HPI Narrative ROZINA HUERTAS, is a 64 F who presents for follow-up endoscopy regarding dysphagia EGD 10.30.24 LA Grade D erosive esophagitis with bleeding. Treated with a heater probe. No gross lesions in the entire stomach. No gross lesions in the entire examined duodenum. No specimens collected. OV w/ Dr Lopez 11.21.24 OV 01.26.25 pt reports worsening difficulty swallowing, states that she is choking almost daily. Denies other GI symptoms of concern at this time. [facility] Medical History Hematemesis Erosive esophagitis GI (gastrointestinal bleed) Hypomagnesemia Generalized weakness Dilated pancreatic duct Cholelithiasis Alcoholic hepatitis Anemia Migraines Alcohol intoxication Difficulty walking Urge incontinence Acute cystitis with hematuria Muscle weakness Osteoarthritis Alcoholic hepatitis Alcoholic liver disease Acute respiratory failure with hypoxia Metabolic encephalopathy Major depression Protein calorie malnutrition Acute post-hemorrhagic anemia Dysphagia, oropharyngeal phase Malignant neoplasm of colon Ulcer Restless legs Injury of head and neck Anemia Alcohol abuse Bipolar disorder Hypothyroidism Osteoporosis Kidney stones GERD (gastroesophageal reflux disease) GI bleed Former smoker Hypokalemia Home Medications ?Medication ?Instructions ?Recorded ?Last Taken ?Type ipratropium 0.5 mg-albuterol 3 mg 3 ml inhalation Q4H PRN shortness 07/23/24 Unknown History (2.5 mg base)/3 mL nebulization of breath soln magnesium oxide 400 mg PO QDAY 07/23/24 Unknown History pantoprazole 40 mg tablet,delayed 40 mg PO BID GERD 30 days #60 tabs 08/29/24 05/13/25 05:45 Rx release ferrous sulfate 325 mg (65 mg 325 mg PO QDAY 11/21/24 Unknown History iron) tablet lamotrigine 25 mg tablet 25 mg PO QDAY 11/21/24 Unknown History aspirin 81 mg capsule 81 mg PO DAILY 03/12/25 05/13/25 05:45 History cefdinir 300 mg capsule 300 mg PO BID 03/12/25 Unknown History multivitamin (Daily Multi-Vitamin 1 tab PO DAILY 03/12/25 Unknown History tablet) oxycodone 5 mg capsule 5 mg PO Q4H PRN pain 03/12/25 Unknown History potassium chloride 10 mEq 10 meq PO DAILY 03/12/25 Unknown History capsule,extended release Allergy/AdvReac Type Severity Reaction Status Date / Time amoxicillin Allergy Intermediate Swelling, Verified 05/13/25 11:21 itching Family History Mother Alcohol abuse CAD (coronary artery disease) Heart disease Hypertension Myocardial infarction Father Alcohol abuse Cancer Surgical History H/O total hip arthroplasty History of total knee arthroplasty History of right hip replacement H/O total hysterectomy Social History household members: none Smoking Status: Never smoker alcohol intake: current alcohol intake frequency: 3 or more drinks per day details: Notes binge drinking, whiskey. substance use type: other details: Former cannabis usage. Stopped ~ 40 years ago. ROS Constitutional Constitutional: Denies fatigue, fever(s), poor appetite, weight gain or weight loss Gastrointestinal Gastrointestinal: Denies belching, bloating, change in bowel habits, change in stool character, chewing difficulty, coffee ground emesis, constipation, cramping, diarrhea, dyspepsia, dysphagia, early satiety, excessive flatus, fecal incontinence, heartburn, hematemesis, hematochezia, hemorrhoids, loose stools, melena, nausea, odynophagia, rectal bleeding, tenesmus, vomiting or weight changes Patient's Goals Of Care . What would you like to achieve or improve as a result of your hospital stay?: None Vital Signs Vital Signs Vital Signs: 05/13/25 11:23 05/13/25 11:23 05/13/25 11:23 Temperature 97.8 F Temperature Source Temporal Pulse Rate 95 Respiratory Rate 16 Respiratory Pattern Normal Blood Pressure 127/75 H Blood Pressure Mean 92 Blood Pressure Source Monitor Blood Pressure Position Semi-Fowlers Blood Pressure Location Right Arm Baseline BP 127/75 Pulse Ox 100 Oxygen Delivery Method Room Air Weight Weight: 180 lb 12.465 oz Body Mass Index (BMI) 25.2 Physical Exam Const alert, oriented x3, no apparent distress and healthy appearing General Appearance: cooperative GI normal to inspection, nondistended, normoactive bowel sounds, soft to palpation, non-tender and non-distended Percussion: normal to percussion Rectal Exam: deferred Assessment & Plan Assessment/Plan (1) Dysphagia: PLAN: Plan Assessment and Plan Assessment and Plan (1) Alcohol use disorder: Status: Chronic Plan: Patient has chronic alcohol liver disease Last CT abdomen on October 28, 2024 shows liver steatosis unchanged, granulomas. Spleen granulomas. Distended gallbladder with cholelithiasis but no inflammation. Atrophic pancreas with similar ductal dilatation to 6 mm at neck, similar to 12 mm intraductal versus parenchymal calculus in the head, trace stranding along the pancreatic head/facility versus, adenomas atrophic. Overall suggestive of chronic pancreatitis with dilated pancreatic ducts 08/28/2024; patient gallbladder ultrasound did not show 1. Hepatomegaly. 2. Hepatic steatosis. 3. Cholelithiasis without acute cholecystitis. 4. Nondilated biliary tree. 5. Limited evaluation of the pancreas secondary to overlying bowel gas. Patient has chronic alcoholic hepatitis. Therefore, naltrexone/Vivitrol 380 mg IM prescribed every 4 weeks x 2 doses patient is in care home therefore it would be better in terms of compliance as patient had psychiatric history of behavioral abnormality/bipolar disorder on lamotrigine. Lamotrigine is given deep intramuscular in gluteal region. Patient also advised to follow-up alcohol rehab 180. Lab test have been ordered in the past but not done. She missed her last appointment, 08/29/24. (2) GI bleed: Status: Acute Plan: Patient has mild pancytopenia with WBC about 3.5-4.2 K, H&H 10 g/31%, platelet count 1 43K. Last INR 1.4 on October 29. Magnesium was low which was replaced on 10/31. AST 35, ALT 10, ALP 187. T. bili 1.15, DB 0.59. U tox was negative. Last EGD on 10/03/2024 Impression: - LA Grade D erosive esophagitis with bleeding. Biopsied. Treated with a heater probe. - Medium-sized hiatal hernia. - No gross lesions in the entire examined duodenum. Continue pantoprazole 40 mg twice daily, magnesium oxide, folic acid, ferrous sulfate, thiamine. (3) Dysphagia: Status: Acute Plan: She will get reevaluation of her upper GI tract as she had severe erosive esophagitis LA grade D previously. She has been on pantoprazole once a day. Will also get a video swallowing study and esophageal manometry. Orders: Orders Swallowing Function w/Video Today R13.10 - Dysphagia, unspecified ]
[2025-05-13] MEDS: Lidocaine 1% (5 ml sdv) 5 ML Vial 10 ML IV (13:49)
[2025-05-13 14:03] VITALS: BP 127/75; BP 97/62; PULSE 95; RESP 18; TEMP 36.3; O2SAT 93
[2025-05-13 14:05] VITALS: BP 127/75; BP 97/62; BP 99/62; PULSE 92; RESP 16; RESP 18; TEMP 36.7; O2SAT 93; O2SAT 94
--- NOTE | 2025-05-13 14:05 | PCM.POST.ANE ---
Anesthesia: Postop Eval I Current Vital Signs Temperature: 98.1 F Pulse Rate: 92 Blood Pressure: 97/62 Respiratory Rate: 16 Pulse Ox: 94 Assessment Airway patent: Yes Spontaneous unlabored respirations: Yes nausea: No Vomiting: No Anesthesia Complication: No Fluid Hydration Crystalloid volume administer (ml): 700 Total IV fluid infused: 700 Progress Note Anesthesia document: Postop Eval 1 completed: Yes
--- NOTE | 2025-05-13 14:07 | OP.PROVAT_ITS ---
05/13/2025 Sudhakar Corral Do Re : Upper GI endoscopy procedure for Kenyatta Carrillo Dear Dr. Corral This procedure was performed on Tuesday, May 13, 2025. My impressions and recommendations are as follows: Impressions : - LA Grade D reflux esophagitis with no bleeding. Biopsied. - Benign-appearing esophageal stenosis. Dilated. - Large hiatal hernia. - No gross lesions in the entire examined duodenum. Recommendations : - Discharge patient to home. - Resume previous diet. - Use Protonix (pantoprazole) 40 mg PO BID. - Continue present medications. My findings are described in the full procedure note, which is enclosed. If I can be of further assistance, please feel free to contact me at . Sincerely, Troy Friend, 05/13/2025 2:06:46 PM This report has been signed electronically.
--- NOTE | 2025-05-13 14:07 | OP.EGD_ITS ---
Patient Name: Kenyatta Carrillo Procedure Date: 05/13/2025 1:41 PM Date of : 1960 Age: 64 Procedure: Upper GI endoscopy Indications: Epigastric abdominal pain, Dysphagia Providers: Troy Self DO Medicines: Monitored Anesthesia Care Patient Profile: This is a 64 year old female. Refer to note in patient chart for documentation of history and physical. Patient has symptoms of chronic epigastric abdominal pain, chronic dyspepsia and chronic nausea. Complications: No immediate complications. Procedure: Pre-Anesthesia Assessment: - Prior to the procedure, a History and Physical was performed, and patient medications and allergies were reviewed. The patient is competent. The risks and benefits of the procedure and the sedation options and risks were discussed with the patient. All questions were answered and informed consent was obtained. Patient identification and proposed procedure were verified by the physician in the pre-procedure area. Mental Status Examination: alert and oriented. Airway Examination: normal oropharyngeal airway and neck mobility. Respiratory Examination: clear to auscultation. CV Examination: normal. Prophylactic Antibiotics: The patient does not require prophylactic antibiotics. Prior Anticoagulants: The patient has taken no anticoagulant or antiplatelet agents except for NSAID medication. ASA Grade Assessment: II - A patient with mild systemic disease. After reviewing the risks and benefits, the patient was deemed in satisfactory condition to undergo the procedure. The anesthesia plan was to use monitored anesthesia care (MAC). Immediately prior to administration of medications, the patient was re-assessed for adequacy to receive sedatives. The heart rate, respiratory rate, oxygen saturations, blood pressure, adequacy of pulmonary ventilation, and response to care were monitored throughout the procedure. The physical status of the patient was re-assessed after the procedure. After obtaining informed consent, the endoscope was passed under direct vision. Throughout the procedure, the patient's blood pressure, pulse, and oxygen saturations were monitored continuously. The Endoscope was introduced through the mouth, and advanced to the third part of the duodenum. Small bowel enteroscopy was deemed necessary. The upper GI endoscopy was accomplished without difficulty. The patient tolerated the procedure well. Scope In: 1:51:25 PM Scope Out: 1:57:03 PM Total Procedure Duration Time 0 hours 5 minutes 38 seconds Findings: LA Grade D (one or more mucosal breaks involving at least 75% of esophageal circumference) esophagitis with no bleeding was found 34 to 40 cm from the incisors. Biopsies were taken with a cold forceps for histology. Verification of patient identification for the specimen was done. Estimated blood loss was minimal. One benign-appearing, intrinsic severe (stenosis; an endoscope cannot pass) stenosis was found 34 to 37 cm from the incisors. This stenosis measured 3 cm (in length). The stenosis was traversed after dilation. A guidewire was placed and the scope was withdrawn. Dilation was performed with a Savary dilator with no resistance at 54 Fr. The dilation site was examined and showed moderate mucosal disruption. Estimated blood loss was minimal. A large hiatal hernia was present. No gross lesions were noted in the entire examined duodenum. Impression: - LA Grade D reflux esophagitis with no bleeding. Biopsied. - Benign-appearing esophageal stenosis. Dilated. - Large hiatal hernia. - No gross lesions in the entire examined duodenum. Recommendation: - Discharge patient to home. - Resume previous diet. - Use Protonix (pantoprazole) 40 mg PO BID. - Continue present medications. Procedure Code(s): --- Professional --- 28578, Esophagogastroduodenoscopy, flexible, transoral; with insertion of guide wire followed by passage of dilator(s) through esophagus over guide wire 24966, 59,51, Small intestinal endoscopy, enteroscopy beyond second portion of duodenum, not including ileum; with biopsy, single or multiple CPT copyright 2021 [employer]. All rights reserved. The codes documented in this report are preliminary and upon bow maker custom review may be revised to meet current compliance requirements. Troy Self DO 05/13/2025 2:06:46 PM This report has been signed electronically. Number of Addenda: 0 Note Initiated On: 05/13/2025 1:41 PM
[2025-05-13 14:10] VITALS: BP 107/64; BP 127/75; PULSE 91; RESP 18; O2SAT 96
[2025-05-13 14:15] VITALS: BP 118/65; BP 127/75; PULSE 86; RESP 18; TEMP 35.9; O2SAT 98
--- NOTE | 2025-05-13 14:24 | POSTOPAN2_ITS ---
Anesthesia Postop Eval I Sum Postop Eval Completion status Anesthesia document: Postop Eval 1 completed: Yes Anesthesia Postop Eval I Summary Anesthesia Postop Eval I Summary: Anesthesia Postop Eval I: Assessment Summary Airway patent Yes 05/13/25 14:05 [email or web address] Spontaneous unlabored Yes 05/13/25 14:05 [email or web address] respirations Mental status nausea No 05/13/25 14:05 [email or web address] Vomiting No 05/13/25 14:05 [email or web address] Anesthesia Postop Eval I: Fluid Summary Crystalloid volume administer 700 05/13/25 14:05 [email or web address] (ml) Colloids volume administered ( ml) Blood Product volume administered (ml) Total IV fluid infused 700 05/13/25 14:05 [email or web address] Anesthesia Postop Eval I: Summary Notes Anesthesia Complication No 05/13/25 14:05 [email or web address] Anesthesia Complication Comment: Post-operative progress note Anesthesia: Postop Eval II Evaluation Mental status: Awake and Calm Pain Level: 0 nausea: No Vomiting: No
--- NOTE | 2025-05-13 14:24 | PCM.POSTANE2 ---
Anesthesia Postop Eval I Sum Postop Eval Completion status Anesthesia document: Postop Eval 1 completed: Yes Anesthesia Postop Eval I Summary Anesthesia Postop Eval I Summary: Anesthesia Postop Eval I: Assessment Summary Airway patent Yes 05/13/25 14:05 [email or web address] Spontaneous unlabored Yes 05/13/25 14:05 [email or web address] [email or web address] respirations Mental status nausea No 05/13/25 14:05 [email or web address] [email or web address] Vomiting No 05/13/25 14:05 [email or web address] Anesthesia Postop Eval I: Fluid Summary Crystalloid volume administer 700 05/13/25 14:05 [email or web address] (ml) Colloids volume administered ( ml) Blood Product volume administered (ml) Total IV fluid infused 700 05/13/25 14:05 [email or web address] Anesthesia Postop Eval I: Summary Notes Anesthesia Complication No 05/13/25 14:05 [email or web address] Anesthesia Complication Comment: Post-operative progress note Anesthesia: Postop Eval II Evaluation Mental status: Awake and Calm Pain Level: 0 nausea: No Vomiting: No
[2025-05-13 14:36] VITALS: BP 127/75
== END 2025-05-13 14:59 | disposition home or self-care (01) ==
LOC: EN 10:55 → AC 10:56
PROVIDERS: Visit Provider Internal Medicine Gastroenterology
PROC: 0DJ08ZZ Inspection of Upper Intestinal Tract, Via Natural or Artificial Opening Endoscopic (ICD-10-PCS; CPT 43235; principal; 2025-05-13 12:10)
DX: K21.00 Gastro-esophageal reflux disease with esophagitis, without bleeding (principal); K70.10 Alcoholic hepatitis without ascites; K22.2 Esophageal obstruction; K44.9 Diaphragmatic hernia without obstruction or gangrene; Z79.899 Other long term (current) drug therapy; Z79.82 Long term (current) use of aspirin; F10.10 Alcohol abuse, uncomplicated
CPT/HCPCS: 44361; 88305; 88312; 88342; C1769